=== PATIENT | male | born 1970 | race Caucasian/White ===

== ENCOUNTER 2019-12-13 12:58 | Emergency (ER) | payer MEDICARE, MEDICAID, SELFPAY ==
--- NOTE | ~2019-12-13 | XR_ITS ---
EXAMINATION: XR chest 2V EXAM DATE: 12/13/2019 13:54 INDICATION: Shortness of breath, history COPD and asthma. TECHNIQUE: Frontal and lateral projections of the chest obtained and reviewed. Comparison is made to prior examination from 01/28/2005. FINDINGS: The lungs are clear. There are no pleural effusions. The cardiomediastinal silhouette is within normal limits. There is no pneumothorax suspected. The bones and soft tissues are unremarkab le. There is no significant interval change. IMPRESSION: No acute cardiopulmonary findings. Reviewed, dictated and finalized at location A.
[2019-12-13 13:07] VITALS: BP 156/79; PULSE 73; RESP 20; TEMP 36.6; O2SAT 98
--- NOTE | 2019-12-13 13:44 | ED.URI ---
HPI - URI/Sore Throat General Chief Complaint: Upper Respiratory Infection Stated Complaint: diffculty breathing/dizzy Time Seen by Provider: 12/13/19 13:45 Source: patient Mode of arrival: ambulatory Limitations: no limitations History of Present Illness HPI Narrative: Tae Kent is a 49 yo male with PMH of asthma, HTN, COPD,bipolar disorder, who comes to express care for complaints of shortness of breath particularly with exertion. Has not called his primary care doctor, even though his O2 sats are close to 100% patient says there is something not right Related Data Home Medications Medication Instructions Recorded Confirmed Abilify 12/13/19 Flovent HFA 12/13/19 Singulair 12/13/19 albuterol sulfate 12/13/19 ampicillin 12/13/19 atorvastatin 12/13/19 hydrocodone-acetaminophen [[place]] 12/13/19 metoprolol tartrate 12/13/19 trazodone 12/13/19 venlafaxine 12/13/19 Allergies Allergy/AdvReac Type Severity Reaction Status Date / Time No Known Allergies Allergy Verified 12/13/19 13:58 Review of Systems Review of Systems: Narrative: CONSTITUTIONAL: Denies fever, chills, sweats. EYES: Denies visual changes, redness, discharge. ENT: Denies rhinorrhea, congestion, sore throat, otalgia. CARDIOVASCULAR: Denies chest pain, palpitations, edema. RESPIRATORY: Has dyspnea, wheezing, cough GASTROINTESTINAL: Denies abdominal pain, nausea, vomiting, diarrhea. GENITOURINARY: Denies dysuria, hematuria, abnormal discharge SKIN: Denies rash or itching. NEUROLOGIC: Denies numbness, or focal weakness. PSYCHIATRIC: Denies anxiety or depression. [facility] Family History Family History Other Hypertension Social History Social History (Updated 12/13/19 @ 13:51 by Meg Dubose CNP) Smoking packs per day: 0.5 Smoking cigarettes per day: 10.0 Smoking status: Current every day smoker Alcohol intake: never Gender identity (if verbalized by the patient): Male Comments At time of signature, I agree with nursing past medical, surgical, social and family history. There is no relevant family history pertinent to the presenting complaint. Exam Narrative: Exam Narrative: GENERAL: This is a well-nourished, well-developed patient, in mild distress. Breathing rapidly appears anxious, and so something is a mess HEAD: normocephalic, atraumatic. EYES: Sclera clear/white. Vision is grossly intact. EARS: External ears normal, Hearing grossly intact. NOSE: External nose normal without nasal discharge, nares without redness, no rhinorrhea. THROAT: Mucous membranes moist, posterior pharynx NECK: Neck supple, CARDIOVASCULAR: Regular rate and rhythm without murmurs, gallops, or rubs. RESPIRATORY: Clear to auscultation. Breath sounds equal bilaterally. No wheezes, rales, or rhonchi. GASTROINTESTINAL: Abdomen soft, , SKIN: warm, intact with no suspicious lesions or rash, good texture and turgor. NEURO: awake, alert, and oriented to person, place and time. There were no obvious focal neurologic abnormalities. Steady gait EXTREMITIES: Normal range of motion. BACK: Nontender without deformity Course Course Emergency Course: Chest x-raynegative for acute pathology Discused options at this point such as going to ER for further work-up including blood work, calling primary care physician, trying Vistaril to control anxiety Patient shows to take Vistaril and if there is no improvement will go to ER call PCP for appointment on Sunday Vital Signs Vital signs: Vital Signs Temperature 98 F 12/13/19 13:07 Pulse Rate 73 12/13/19 13:07 Respiratory Rate 12/13/19 13:07 Blood Pressure 156/79 H 12/13/19 13:07 Pulse Oximetry 98 12/13/19 13:07 Temperature 98 F 12/13/19 13:07 Pulse Rate 73 12/13/19 13:07 Respiratory Rate 12/13/19 13:07 Blood Pressure 156/79 H 12/13/19 13:07 Pulse Oximetry 98 12/13/19 13:07 MDM - URI/So
--- NOTE | 2019-12-13 14:10 | PC.NURSE ---
Patient C/O lightheadedness occasionally when coughs and feels onset of SOB. Patient denies chest pain, A&OX3 no neuro complaint or notable dysfunction noted upon assessment. See Resp. Assessment for respiratory findings.
== END 2019-12-13 14:36 | disposition home or self-care (01) ==
PROVIDERS: Emergency Provider Nurse Practitioner
DX: F41.9 Anxiety disorder, unspecified (principal); I10 Essential (primary) hypertension; J44.9 Chronic obstructive pulmonary disease, unspecified; F31.9 Bipolar disorder, unspecified; F17.210 Nicotine dependence, cigarettes, uncomplicated
CPT/HCPCS: 71046; 99213; G0463

== ENCOUNTER 2023-06-20 11:05 | Outpatient (CLI) | payer MEDICARE, MEDICAID, SELFPAY ==
[2023-06-20 11:20] LABS: Basophils Absolute Auto 0.09 K/mm3 (0.00-0.10); Basophils Percent Auto 1.1 % (0.0-1.0); Eosinophils Absolute Auto 0.23 K/mm3 (0.02-0.50); Eosinophils Percent Auto 2.8 % (1.0-6.0); Hematocrit 40.2 % (40.0-54.0); Hemoglobin 13.2 g/dL (14.0-18.0); Immature Granulocyte Absolute 0.01 K/mm3 (0.00-0.00); Immature Granulocyte Percent A 0.1 % (0.0-0.0); Lymphocytes Absolute Auto 2.08 K/mm3 (1.10-4.50); Lymphocytes Percent Auto 25.6 % (18.0-42.0); Mean Corpuscular HGB Conc 32.8 g/dL (32.0-36.0); Mean Corpuscular Hemoglobin 31.1 pg (27.0-31.0); Mean Corpuscular Volume 94.8 fL (78.0-102.0); Mean Platelet Volume 8.9 fl (8.7-11.0); Monocytes Absolute Auto 0.38 K/mm3 (0.10-0.90); Monocytes Percent Auto 4.7 % (2.0-11.0); Neutrophils Absolute Auto 5.3 K/mm3 (1.7-7.2); Neutrophils Percent Auto 65.7 % (50.0-70.0); Platelet Count Result 217 K/mm3 (150-420); Red Blood Count 4.24 M/mm3 (4.70-6.10); Red Cell Distribution Width 13.3 % (11.6-14.4); White Blood Count 8.1 K/mm3 (4.8-10.8)
[2023-06-20 11:34] LABS: Hemoglobin A1C 7.2 % (<5.7)
[2023-06-20 12:09] LABS: Microalbumin Urine Random 25.3 mg/L
[2023-06-20 12:32] LABS: Alanine Aminotransferase 46 U/L (16-63); Albumin Level 3.8 g/dL (3.4-5.0); Alkaline Phosphatase 115 U/L (46-116); Anion Gap 7 mmol/L (8-16); Aspartate Amino Transferase 17 U/L (15-37); Bilirubin,Total 0.3 mg/dL (0.00-1.00); Blood Urea Nitrogen 14 mg/dL (7-18); Calcium 9.2 mg/dL (8.5-10.1); Carbon Dioxide 29 mmol/L (21-32); Chloride 107 mmol/L (98-108); Cholesterol 157 mg/dL (0-200); Estimated Glomerular Filt Rate 35; Glucose 156 mg/dL (70-99); HDL Direct 43 mg/dL (40-60); LDL Cholesterol Calculated 58 mg/dL (<130); Osmolality Calculated 299 mOsm/kg (285-295); Potassium 3.9 mmol/L (3.5-5.1); Sodium 143 mmol/L (136-145); Total Protein 6.6 g/dL (6.4-8.2); Triglycerides 281 mg/dL (0-150)
== END 2023-06-20 11:06 | disposition home or self-care (01) ==
LOC: CHSLAB 11:10
PROVIDERS: PCP Family Medicine; Visit Provider Family Medicine
DX: E11.9 Type 2 diabetes mellitus without complications (principal); J44.89 Other specified chronic obstructive pulmonary disease
CPT/HCPCS: 36415; 80053; 80061; 82043; 83036; 85025

== ENCOUNTER 2023-06-21 12:09 | Outpatient (CLI) | payer MEDICARE, MEDICAID, SELFPAY ==
--- NOTE | ~2023-06-21 | CT_ITS ---
CT Scan of the Chest without Contrast: Clinical Indication: Lung cancer screening, personal history of nicotine dependence Technique: Contiguous sections were acquired throughout the chest without intravenous contrast. Dose reduction technique was used on this scan by utilizing automated exposure control and iterative recon struction technique. The dose-length product (DLP) was 281.02 mGy-cm. Findings: There is no evidence of any significant mediastinal, hilar or axillary lymphadenopathy. Calcified med iastinal/right hilar lymph nodes are present. The mediastinal soft tissues appear normal. There is no evidence of pleural or pericardial effusion. Several calcified granulomas are present. No noncalcified pulmonary nodule seen. Images through the upper abdomen reveal no abnormalities. Impression: Lung RADS 2: Benign appearance. 12 month follow-up screening CT advised. Reviewed, dictated and finalized at [facility]. RIGGER Impression: Lung RADS 2: Benign appearance. 12 month follow-up screening CT advised.
== END 2023-06-21 12:10 | disposition home or self-care (01) ==
LOC: CHSIMG 12:10
PROVIDERS: PCP Family Medicine; Visit Provider Family Medicine
DX: J44.89 Other specified chronic obstructive pulmonary disease (principal); Z12.2 Encounter for screening for malignant neoplasm of respiratory organs; Z87.891 Personal history of nicotine dependence
CPT/HCPCS: 71271

== ENCOUNTER 2023-08-21 16:32 | Outpatient (RCR) | payer MEDICARE, MEDICAID, SELFPAY ==
--- NOTE | 2023-08-29 15:17 | PCPTNOTE ---
Addendum entered by VitorT File, PT 08/29/23 15:17: patient is scheduled this sunday. Original Note: patient called and cancelled therapy today. he is still sick. reports he will return to therapy next week.
--- NOTE | 2023-09-03 17:07 | PCPTNOTE ---
pt called and stated he is running late and needs to cancel.
--- NOTE | 2023-09-04 13:46 | OPREHPOC ---
Outpatient Therapy Plan of Care This is a Multidisciplinary Plan of Care that may contain components documented by all disciplines (PT, OT, and ST.) PT Problem 1 PT Problem #1 Knowledge Deficit PT Goal 1 Goal 1. independent and compliant with HEP Target Visit 6 PT Problem 2 PT Problem #2 Pain PT Goal 1 Goal 1. decrease pain at worst to 2/10 or less in the neck and lower back Target Visit 12 PT Problem 3 PT Problem #3 Impaired Range of Motion PT Goal 1 Goal 1. improve lumbar active side bending to 30 degrees or better 2. improve lumbar active extension to 20 degrees or better 3. improve lumbar active flexion to ankles 4. improve L cervical side bending to 20 degrees or better 5. improve R cervical rotation to 65 degrees or better Target Visit 12 PT Problem 4 PT Problem #4 Impaired Strength PT Goal 1 Goal 1. 5/5 bilateral UE strength 2. 5/5 bilateral LE strength 3. 4+/5 or better deep neck flexor strength Target Visit 12 PT Problem 5 PT Problem #5 Impaired Functional Mobil PT Goal 1 Goal 1. patient to tolerate upright and walking activities to 2 hours outside of therapy without rest 2. oswestry to display 30% or less functional deficits 3. improve posture to display more retracted shoulders and decreased forward head Target Visit 12
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
--- NOTE | 2023-09-07 18:27 | PCPTNOTE ---
patient is unable to make it today due to his schedule. he is scheduled to return to therapy next week
--- NOTE | 2023-09-11 09:15 | PCPTNOTE ---
No call no show. Patient was called and voicemail was left notifying patient of discharge.
== END 2023-08-21 20:00 | disposition home or self-care (01) ==
LOC: CHSPT 16:32
PROVIDERS: Visit Provider Nurse Practitioner Adult Health
DX: M47.812 Spondylosis without myelopathy or radiculopathy, cervical region (principal)
CPT/HCPCS: 97014; 97110; 97161; G0283

== ENCOUNTER 2023-09-15 18:25 | Emergency (ER) | payer MEDICARE, MEDICAID, SELFPAY ==
--- NOTE | ~2023-09-15 | XR_ITS ---
EXAMINATION: XR abdomen obstructive series DATE: 09/15/2023 18:57 INDICATION: Constipation. TECHNIQUE: Upright and supine views of the abdomen on 4 radiographs were obtained. COMPARISON: None. FINDINGS: There are no dilated loops of bowel. There is a small volume of stool in the colon. No free intraperitoneal gas. IMPRESSION: 1. Normal bowel gas pattern. Reviewed, dictated and finalized at location A.
[2023-09-15 18:25] VITALS: BP 134/78; PULSE 78; RESP 17; TEMP 36.3; O2SAT 95
--- NOTE | 2023-09-15 19:15 | ED.ABDPAIN ---
HPI - Abdominal Pain General Chief Complaint: Abdominal Pain Stated Complaint: BOWEL PROBLEM Time Seen by Provider: 09/15/23 18:27 Source: patient Mode of arrival: ambulatory Limitations: no limitations History of Present Illness HPI narrative: This is a 53-year-old male who presents with nausea constipation for the last 6 weeks has follow with his primary and was prescribed lactulose. Patient has some mild periumbilical discomfort with watery stool and some nausea with no vomiting no flank pain no dysuria no fever chills. Patient does take Mounjaro for diabetes/weight loss. Pertinent past history: constipation Onset (ago): week(s) Pain Consistency: intermittent Location: periumbilical Severity: mild Related Data Home Medications Medication Instructions Recorded Confirmed apixaban 5 mg tablet (Eliquis) 5 mg PO BID 06/20/23 09/15/23 aripiprazole 20 mg tablet 20 mg PO DAILY 06/20/23 09/15/23 aripiprazole 5 mg tablet 5 mg PO DAILY 06/20/23 09/15/23 aspirin 81 mg tablet,delayed 81 mg PO DAILY 06/20/23 09/15/23 release (Adult Low Dose Aspirin) bupropion HCl 300 mg 24 hr tablet, 300 mg PO QAM 06/20/23 09/15/23 extended release fluticasone propionate 50 2 inh inhalation Q12H 06/20/23 09/15/23 mcg/actuation blister powder for inhalation fluticasone propionate 50 1 spray intranasal BID 06/20/23 09/15/23 mcg/actuation nasal spray,suspension fosinopril 40 mg tablet 40 mg PO DAILY 06/20/23 09/15/23 ropinirole 1 mg tablet 1 mg PO BID 06/20/23 09/15/23 venlafaxine 150 mg 150 mg PO DAILY 06/20/23 09/15/23 capsule,extended release 24 hr oxycodone myristate 9 mg capsule 9 mg PO Q12H 08/10/23 09/15/23 sprinkle extended release 12 hr(DON'T CRUSH) (Xtampza ER) Allergies Allergy/AdvReac Type Severity Reaction Status Date / Time ivp dye Allergy Severe cant Uncoded 08/10/23 07:43 breathe Review of Systems Review of Systems: All systems reviewed & are unremarkable except as noted in HPI and below PMFSH Past Medical History Medical History Asthma Lupus Family History Family History Mother Carcinoma of colon Father Emphysema lung Grandparent Diabetes mellitus Sibling Lupus Other Hypertension Social History Social History Smoking packs per day: 0.5 Smoking cigarettes per day: 10.0 Smoking status: Former smoker Alcohol intake: never Substance use: never Gender identity (if verbalized by the patient): Male Exam Const: General: healthy appearing, no acute distress and alert Nutritional Appearance: well nourished Orientation/consciousness: patient oriented x3 Limitations: no limitations Chest: Chest palpation & inspection: normal inspection of the chest Resp: Effort & Inspection: normal respiratory effort Auscultation: clear to auscultation bilaterally Cardio: Rate: regular rate Rhythm: regular rhythm GI: GI Palp: Yes Soft to palpation Auscultation: normal bowel sounds : General: Yes bladder normal to palpation Skin: General skin exam: normal color Rashes: no rashes Neuro: General: patient oriented x3, moves all extremities and no meningeal signs Extrem: General: normal to inspection Psych: Mental Status: mental status grossly normal Course Course Emergency Course: Obstructive series performed which shows no abdominal distension with some no fecal impaction. Vital Signs Vital signs: Vital Signs Temperature 36.3 C L 09/15/23 18:25 Pulse Rate 78 09/15/23 18:25 Respiratory Rate 17 09/15/23 18:25 Blood Pressure 134/78 09/15/23 18:25 Pulse Oximetry 95 09/15/23 18:25 Oxygen Delivery Room Air 09/15/23 18:25 Temperature 36.3 C L 09/15/23 18:25 Pulse Rate 78 09/15/23 18:25 Respiratory Rate 17 09/15/23 18:25 Blood Pressure 134/78 09/15/23 18:25 Pul
[2023-09-15 19:31] VITALS: BP 127/66
== END 2023-09-15 19:40 | disposition home or self-care (01) ==
PROVIDERS: Emergency Provider Emergency Medicine; PCP Family Medicine
DX: R11.0 Nausea (principal); K59.00 Constipation, unspecified; Z79.01 Long term (current) use of anticoagulants; J45.909 Unspecified asthma, uncomplicated; M32.9 Systemic lupus erythematosus, unspecified; Z87.891 Personal history of nicotine dependence
CPT/HCPCS: 74019; 99283

== ENCOUNTER 2023-10-17 11:07 | Outpatient (NON) | payer MEDICARE, MEDICAID, SELFPAY ==
[2023-10-17 20:02] LABS: Trichomonas Vag PCR NOT DETECTED (NOT DETECTE)
[2023-10-17 20:25] LABS: Chlamydia trachomatis NOT DETECTED (NOT DETECTE); Neisseria gonorrhoeae PCR NOT DETECTED (NOT DETECTE)
== END 2023-10-17 11:08 | disposition home or self-care (01) ==
PROVIDERS: Visit Provider Family Medicine
DX: N39.0 Urinary tract infection, site not specified (principal); Z11.3 Encounter for screening for infections with a predominantly sexual mode of transmission
CPT/HCPCS: 87086; 87088; 87491; 87591; 87661

== ENCOUNTER 2024-05-02 09:32 | Outpatient (CLI) | payer MEDICARE, MEDICAID, SELFPAY ==
[2024-05-02 09:50] LABS: Basophils Absolute Auto 0.09 K/mm3 (0.00-0.10); Eosinophils Absolute Auto 0.44 K/mm3 (0.02-0.50); Hematocrit 40.7 % (40.0-54.0); Hemoglobin 14.4 g/dL (14.0-18.0); Immature Granulocyte Absolute 0.02 K/mm3 (0.00-0.00); Immature Granulocyte Percent A 0.2 % (0.0-0.0); Lymphocytes Absolute Auto 2.05 K/mm3 (1.10-4.50); Lymphocytes Percent Auto 23.4 % (18.0-42.0); Mean Corpuscular HGB Conc 35.4 g/dL (32-36); Mean Corpuscular Hemoglobin 32.4 pg (27.0-31.0); Mean Corpuscular Volume 91.7 fL (78.0-102.0); Mean Platelet Volume 9.5 fl (8.7-11.0); Monocytes Percent Auto 4.6 % (2.0-11.0); Neutrophils Absolute Auto 5.76 K/mm3 (1.70-7.20); Neutrophils Percent Auto 65.8 % (50.0-70.0); Platelet Count Result 215 K/mm3 (150-420); Red Blood Count 4.44 M/mm3 (4.70-6.10); Red Cell Distribution Width 14.1 % (11.6-14.4); White Blood Count 8.8 K/mm3 (4.8-10.8)
[2024-05-02 10:13] LABS: Creatinine Urine 34.08 mg/dL (40-278); MALB Creatinine Ratio 151.1 mg/g (0-30); Microalbumin Urine Random 51.5 mg/L
[2024-05-02 10:48] LABS: Alanine Aminotransferase 33 U/L (16-63); Albumin Level 3.7 g/dL (3.4-5.0); Alkaline Phosphatase 108 U/L (46-116); Anion Gap 11 mmol/L (4-12); Aspartate Amino Transferase 15 U/L (15-37); Bilirubin,Total 0.2 mg/dL (0.00-1.00); Blood Urea Nitrogen 18 mg/dL (7-18); Calcium 9.2 mg/dL (8.5-10.1); Carbon Dioxide 27 mmol/L (21-32); Chloride 103 mmol/L (98-108); Cholesterol 175 mg/dL (0-200); Estimated Glomerular Filt Rate 52; Ferritin 27 ng/mL (26-388); Glucose 252 mg/dL (70-99); HDL Direct 50 mg/dL (40-60); LDL Cholesterol Calculated 86 mg/dL (<130); Osmolality Calculated 302 mOsm/kg (285-295); Potassium 3.8 mmol/L (3.5-5.1); Sodium 141 mmol/L (136-145); Thyroid Stimulating Hormone 1.16 uIU/mL (0.36-3.74); Total Protein 6.4 g/dL (6.4-8.2); Triglycerides 197 mg/dL (0-150)
[2024-05-04 02:54] LABS: Prolactin 3.8 ng/mL (2.0-18.0)
== END 2024-05-02 09:33 | disposition home or self-care (01) ==
LOC: CHSLAB 09:34
PROVIDERS: PCP Family Medicine
DX: I10 Essential (primary) hypertension (principal); D50.9 Iron deficiency anemia, unspecified; E11.9 Type 2 diabetes mellitus without complications; Z79.899 Other long term (current) drug therapy
CPT/HCPCS: 36415; 80053; 80061; 80183; 82043; 82728; 83036; 84146; 84443; 85025

== ENCOUNTER 2024-05-13 11:52 | Outpatient (CLI) | payer MEDICARE, MEDICAID, SELFPAY ==
--- NOTE | ~2024-05-13 | XR_ITS ---
EXAMINATION: XR knee LT 3V DATE: 05/13/2024 12:29 INDICATION: Left knee pain. TECHNIQUE: 3 views of left knee were obtained. COMPARISON: None. FINDINGS: Alignment is normal. No fracture. There is mild tricompartmental osteoarthritis. There is a moderate-sized knee joint effusion. IMPRESSION: 1. Mild left knee osteoarthritis. 2. Moderate-sized left knee joint effusion. Reviewed, dictated and finalized at location A. T DEVELOPER AUTOMATIC
--- NOTE | ~2024-05-13 | XR_ITS ---
EXAMINATION: XR chest 2V DATE: 05/13/2024 12:29 INDICATION: Heart failure, unspecified. TECHNIQUE: Frontal and lateral views of the chest were obtained. COMPARISON: Chest 2 view 12/13/2019 FINDINGS: There is no pneumonia, pleural effusion, or pneumothorax. The heart size is normal. IMPRESSION: 1. No acute cardiopulmonary disease. Reviewed, dictated and finalized at location A. R EXPERT
--- NOTE | 2024-05-13 12:04 | ECG_ITS ---
Test Date: 2024-05-13 12:15:32 Measurements Intervals [place] Rate: 64 P: 70 DE: 152 QRS: 85 QRSD: 110 T: 64 QT: 417 QTc: 431 Interpretive Statements SINUS RHYTHM WITH SINUS ARRHYTHMIA BASELINE WANDER- V2 NORMAL ECG No previous ECG available for comparison Electronically Signed On 05-13-2024 12:13:21 SPEECH AND LANGUAGE SPECIALIST by Arun Candelario D.O.
[2024-05-13 12:16] LABS: Basophils Percent Auto 1.3 % (0.0-1.0); Eosinophils Absolute Auto 0.45 K/mm3 (0.02-0.50); Eosinophils Percent Auto 5.8 % (1.0-6.0); Hematocrit 38.1 % (40.0-54.0); Hemoglobin 13.2 g/dL (14.0-18.0); Immature Granulocyte Absolute 0.02 K/mm3 (0.00-0.00); Immature Granulocyte Percent A 0.3 % (0.0-0.0); Lymphocytes Absolute Auto 2.34 K/mm3 (1.10-4.50); Lymphocytes Percent Auto 30.1 % (18.0-42.0); Mean Corpuscular HGB Conc 34.6 g/dL (32-36); Mean Corpuscular Volume 92.5 fL (78.0-102.0); Mean Platelet Volume 9.5 fl (8.7-11.0); Monocytes Percent Auto 6.4 % (2.0-11.0); Neutrophils Absolute Auto 4.36 K/mm3 (1.70-7.20); Neutrophils Percent Auto 56.1 % (50.0-70.0); Platelet Count Result 194 K/mm3 (150-420); Red Blood Count 4.12 M/mm3 (4.70-6.10); Red Cell Distribution Width 14.4 % (11.6-14.4); White Blood Count 7.8 K/mm3 (4.8-10.8)
[2024-05-13 13:28] LABS: Alanine Aminotransferase 28 U/L (16-63); Albumin Level 3.6 g/dL (3.4-5.0); Alkaline Phosphatase 103 U/L (46-116); Anion Gap 8 mmol/L (4-12); Aspartate Amino Transferase 11 U/L (15-37); Bilirubin,Total 0.3 mg/dL (0.00-1.00); Blood Urea Nitrogen 11 mg/dL (7-18); Calcium 9.2 mg/dL (8.5-10.1); Carbon Dioxide 30 mmol/L (21-32); Chloride 105 mmol/L (98-108); Estimated Glomerular Filt Rate 51; Glucose 65 mg/dL (70-99); NT Pro B Type Natriuretic Pept 252 pg/mL (0-125); Osmolality Calculated 293 mOsm/kg (285-295); Sodium 143 mmol/L (136-145); Total Protein 6.3 g/dL (6.4-8.2); Troponin I 4.9 ng/L (0.00-60.4)
[2024-05-13 13:35] LABS: Thyroid Stimulating Hormone Reflex 1.35 u/IU/mL (0.36-3.74)
== END 2024-05-13 11:53 | disposition home or self-care (01) ==
LOC: CHSLAB 11:53
PROVIDERS: PCP Family Medicine; Visit Provider Family Medicine
DX: E03.9 Hypothyroidism, unspecified (principal); I50.9 Heart failure, unspecified; M17.12 Unilateral primary osteoarthritis, left knee; M25.462 Effusion, left knee
CPT/HCPCS: 36415; 71046; 73562; 80053; 83880; 84443; 84484; 85025; 93005

== ENCOUNTER 2024-09-18 13:48 | Outpatient (RCR) | payer MEDICARE, MEDICAID, SELFPAY ==
--- NOTE | 2024-09-18 14:51 | OPREHPOC ---
Outpatient Therapy Plan of Care This is a Multidisciplinary Plan of Care that may contain components documented by all disciplines (PT, OT, and ST.) PT Problem 1 PT Problem #1 Knowledge Deficit PT Goal 1 Goal / Goal Update The patient will be independent in a home exercise program. Target Visit 4 PT Problem 2 PT Problem #2 Pain PT Goal 1 Goal / Goal Update The patient will report no greater than 3/10 low back pain when standing for 15 minutes. Target Visit 12 PT Problem 3 PT Problem #3 Impaired Range of Motion PT Goal 1 Goal / Goal Update The patient will demonstrate lumbar flexion AROM of 40 degrees or greater to improve ability to don socks/shoes. Target Visit 12 PT Problem 4 PT Problem #4 Impaired Strength PT Goal 1 Goal / Goal Update The patient will demonstrate 4/5 upper abdominal, lower abdominal, and lumbar extension strength to support the spine for ambulation and standing. Target Visit 12
--- NOTE | 2024-09-18 14:51 | PTOPEVAL1 ---
Assessment and note entered by Janeth Overton, PT Evaluation Information Assessment Status Evaluation ICD-10 Condition Codes (PT) Pain in low back M54.50 Onset 08/21/24 Subjective Information Tae Kent reports he has had low back pain for several years. He notes the pain will wrap around to his stomach and he will have to sit down when that happens. He has difficulty standing and walking for long periods. He has less pain with sitting. He is disabled and is unable to perform most house chores. He also has to use a chair for showering. He notes occasionally the pain will go into the sides of his hip. He denies numbness and tingling from the back but does have neuropathy that affects the feet and hands. He is using Gabapentin 4 times a day. He also has cervical stenosis but does not want to have surgery. Reported Pain Level Pain Score 4: Self Report Assessment PT Clinical Summary Tae Kent presents with chronic low back pain. 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 He objectively demonstrates tenderness in the lumbar paraspinals and spinous processes, decreased and painful lumbar AROM, decreased core strength, decreased hamstring flexibility, and positive straight leg raise test. He will benefit from skilled PT to address these limitations. Plan of Care Interventions Electrical Stimulation,Hot Pack/Cold Pack,Manual Therapy,Mechanical Traction,Neuro Re-education, Patient/Caregiver Education,Therapeutic Activities ,Therapeutic Exercise PT Services Indicated Yes Treatment Frequency and 3 times a week for 12 visits Duration These treatments will address the objective and functional deficits as defined above. The patient will be advanced safely and appropriately in order for the patient to progress towards his/her prior level of function. Additional exercises will be introduced and as well as a comprehensive home exercise program upon discharge, if needed, ?to ensure carryover of functional gains achieved in the clinic. This treatment plan has been reviewed and agreement upon by the patient.
--- NOTE | 2024-09-22 10:45 | PCPTNOTE ---
Patient did not show up for scheduled appointment this date.
--- NOTE | 2024-09-24 11:11 | PCPTNOTE ---
Patient did not show up for scheduled appointment this date. -Janeth Overton, PT
--- NOTE | 2024-09-26 07:07 | PCPTNOTE ---
Cancelled session. Is in too much pain and does not want to come to therapy.
--- NOTE | 2024-10-09 07:46 | OPREHPOC ---
Outpatient Therapy Plan of Care This is a Multidisciplinary Plan of Care that may contain components documented by all disciplines (PT, OT, and ST.) PT Problem 1 PT Problem #1 Knowledge Deficit PT Goal 1 Goal / Goal Update The patient will be independent in a home exercise program. Target Visit 4 Progress Not Met PT Problem 2 PT Problem #2 Pain PT Goal 1 Goal / Goal Update The patient will report no greater than 3/10 low back pain when standing for 15 minutes. Target Visit 12 Progress Not Met PT Problem 3 PT Problem #3 Impaired Range of Motion PT Goal 1 Goal / Goal Update The patient will demonstrate lumbar flexion AROM of 40 degrees or greater to improve ability to don socks/shoes. Target Visit 12 Progress Not Met PT Problem 4 PT Problem #4 Impaired Strength PT Goal 1 Goal / Goal Update The patient will demonstrate 4/5 upper abdominal, lower abdominal, and lumbar extension strength to support the spine for ambulation and standing. Target Visit 12 Progress Not Met
--- NOTE | 2024-10-09 07:47 | PTOPDC ---
Assessment and note entered by Janeth Overton, PT Evaluation Information Assessment Status Discharge - Pt Not Present ICD-10 Condition Codes (PT) Pain in low back M54.50 Onset 08/21/24 Subjective Information Tae Kent called after his initial evaluation to cancel his remaining appointments due to being in too much pain. Assessment PT Clinical Summary Tae Kent only attended his initial evaluation and then called to cancel his remaining appointments due to being in too much pain. Plan of Care PT Services Indicated No
== END 2024-09-18 20:00 | disposition home or self-care (01) ==
LOC: CHSPT 13:48
PROVIDERS: Visit Provider Nurse Practitioner Adult Health
DX: M54.9 Dorsalgia, unspecified (principal)
CPT/HCPCS: 97014; 97110; 97161; G0283

== ENCOUNTER 2024-10-16 21:24 | Outpatient (CLI) | payer MEDICARE, MEDICAID, SELFPAY ==
--- NOTE | ~2024-10-16 | CT_ITS ---
CT Scan of the Chest without Contrast: Clinical Indication: Lung cancer screening, nicotine dependence Technique: Contiguous sections were acquired throughout the chest without intravenous contrast. Dose reduction technique was used on this scan by utilizing automated exposure control and iterative recon struction technique. The dose-length product (DLP) was 221.43 mGy-cm. COMPARISON: 06/21/2023 Findings: There is no evidence of any significant mediastinal, hilar or axillary lymphadenopathy. Calcified med iastinal and right hilar lymph nodes are present. There is no evidence of pleural or pericardial effusion. Calcified right upper lobe granulomas are present. Images through the upper abdomen reveal no abnormalities. Impression: Lung RADS 2: Benign appearance. 12 month follow-up CT advised. Reviewed, dictated and finalized at location . Impression: Lung RADS 2: Benign appearance. 12 month follow-up CT advised.
--- OUTSIDE RECORDS SUMMARY | 2024-10-16 21:27 | XMS_ITS | Encounter Summary ---
Author Organization [facility] Address [address] [place] [address] Phone Care Team Providers Care Waitress Name Role Phone Srikanth Adrian MD Unavailable Tad Romero MD Primary Care Provider [phone] Gloria Martinez MD Unavailable [phone] Reason for Visit * Reason Comments Medication Refill Encounter Details Date Type Department Care Team (Late Contact Info) Description 07/03/2024 Refill [facility] - Family Medicine [facility] [address] [place] [address] Jabier Peck MD [address] [address] Medication Refill Social History Tobacco Use Types Packs/Day Years Used Date Smoking Tobacco: Former Cigarettes 1 35 Smokeless Tobacco: Never Alcohol Use Standard Drinks/Week Comments No 0 (1 standard drink = 0.6 oz pur e alcohol) Education Answer Date Recorded What is the highest level of school you have completed or the highest degree you have received? 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 Sexual Orientation Lesbian or Wolff 05/03/2023 12 :44 PM SALES AND MARKETING ENGINEER documented as of this encounter Miscellaneous Notes * Telephone Encounter - Francine Soto RN - 07/04/2024 8:54 AM CST PCP: Tad Mcintosh MD S AND MARKETING ENGINEER documented in this encounter Plan of Treatment Upcoming Encounters Date Type Department Care Team (Late st Contact Info) Description 10/17/2024 1:00 PM CDT Procedure Visit [facility] [address] [place] [address] Gloria Martinez MD [id number] [address] documented as of this encounter Visit Diagnoses Not on filedocumented in this encounter Care Teams Waitress Relationship Specialty Start Date End Date Tad Mcintosh MD [address] [place] [id number] PCP - General Family Medicine 01/17/24 Srikanth Adrian MD Statistical Methods Professor Cardiovascular Disease - Cardiology 02/02/22 08/06/24 Gloria Martinez MD [facility] [address] [place] [address] Consulting Physician Urology 04/30/24 documented as of this encounter
--- OUTSIDE RECORDS SUMMARY | 2024-10-16 21:27 | XMS_ITS ---
Author Name ABBY BUTLER Address [address] [place] [address] Phone [facility] Address [address] [place] [address] Phone Care Team Providers Care Supervisor Composing Room Name Role Phone ABBY BUTLER Unavailable [phone] ALLERGIES, ADVERSE REACTIONS AND ALERTS Allergy Name Allergy Date Allergy Status Allergy Severity Allergy Reaction NO KNOWN DRUG ALLERGIES PROBLEMS Problem Code Problem Description Problem Status Problem Da te Problem End Date 966589613-Kbwaaflepfr tract congestion and cough Respiratory tract congestion and cough Current 04/28/2022 58599516-Hogrken disorder Bipolar disorder Chronic 04/28/2022 22028527-Wolifnsyg emphysema Pulmonary emphysema Chronic 04/28/2022 93029833-Ldofkc disease Kidney disease Chronic 04/28/2022 42666969-Qibozsbx mellitus Diabetes mellitus Chronic 04/28/2022 [id number]-Fftztx Asthma Chronic 04/28/2022 66841638-Wzxbbytooiu sleep apnea syndrome Obstructive sleep apnea syndrome Chronic 04/28/2022 R07.0-PAIN IN THROAT PAIN IN THROAT Current 04/29/2022 R09.81-NASAL CONGESTION NASAL CONGESTION Current 04/29/2022 J06.9-ACUTE UPPER RESPIRATORY INFECTION, UNSPECIFIED ACUTE UPPER RESPIRATORY INFECTION, UNSPECIFIED Current 04/29/2022 Z71.9-COUNSELING, UNSPECIFIED COUNSELING, UNSPECIFIED Current 04/29/2022 PROCEDURES Procedure Description Date Notes NO PROCEDURES PERFORMED ASSESSMENTS Assessment None PLAN OF TREATMENT Assessment Planned Activity LOINC Planned Yuri e None CONSULTATION NOTE Note Author Date None HISTORY AND PHYSICAL NOTE Note Author Date None PROGRESS NOTE Note Author Date None DISCHARGE SUMMARY Note Author Date None CHIEF COMPLAINT AND REASON FOR VISIT FUNCTIONAL STATUS Functional or Cognitive Find ing None MENTAL STATUS Cognitive Finding None ENCOUNTERS Encounter Type Provider Diagnoses Start Date Location None SOCIAL HISTORY Social Status Observation Unknown if ever smoked Sex:Male CARE TEAM INFORMATION Supervisor Composing Room Provider ID Role Location Phone ABBY BUTLER [phone] NURSE PRACTITIONER [address] [place] [address]
--- OUTSIDE RECORDS SUMMARY | 2024-10-16 21:27 | XMS_ITS | Encounter Summary ---
Author Organization [facility] Address [address] [place] [address] Phone Care Team Providers Care Development Associate Name Role Phone Jabier Peck MD Primary Care Provider [phone] Srikanth Adrian MD Unavailable Tad Romero MD Primary Care Provider [phone] Gloria Martinez MD Unavailable [phone] Reason for Visit * Reason Onset Date Comments Medication Refill 03/28/2021 Encounter Details Date Type Department Care Team (Late st Contact Info) Description 03/28/2021 Refill [facility] - Family Medicine [facility] #2 [place] [address] Jabier Peck MD #[address] [address] Medication Refill Social History Tobacco Use Types Packs/Day Years Used Date Smoking Tobacco: Every Day Cigarettes 1 35 Smokeless Tobacco: Never Alcohol Use Standard Drinks/Week Comments No 0 (1 standard drink = 0.6 oz pur e alcohol) Sexually Active Control Partners Comments Not Currently Male Condom Male Sex and Gender Information Value Date Recorded Sex Assigned at Not on file Legal Sex Male 11:38 PM CDT Gender Identity Male 05/03/2023 12:44 PM DIGESTION OPERATOR Sexual Orientation Lesbian or Wolff 05/03/2023 12 :44 PM DIGESTION OPERATOR COVID-19 Exposure Response Date Recorded In the last month, have you been in contact with someone who was confirmed or suspected to have Coronavirus / COVID-19? No / Unsure 03/31/2021 1:54 PM CDT documented as of this encounter Miscellaneous Notes * Telephone Encounter - Francine Soto RN - 03/28/2021 1:58 PM CDT New Rx for you Per nursing clinical judgement, provider to review and approve the medication(s) order(s) if appropriate. Requested Prescriptions Pending Prescriptions Disp Refills famotidine (PEPCID) 20 MG Tablet 60 Tablet 1 Sig: Take 1 Tablet by mouth 2 times daily. H2 Antagonists Protocol Passed - 03/28/2021 1:58 PM Passed - Visit with relevant provider in past 12 months or upcoming 90 days Recent Visits Date Type Provider Dept 03/16/21 Office Visit Kishore Prieto APN, RICHARD [facility] [place] 11/16/20 Office Visit Kishore Prieto APN, RICHARD [facility] [place] 10/20/20 Office Visit Jabier Peck MD [facility] [place] 08/20/20 Telemedicine Kishore Prieto APN, RICHARD [facility] [place] 08/06/20 Telemedicine Kishore Prieto APN, RICHARD [facility] [place] 06/22/20 Office Visit Kishore Prieto APN, BURR GRINDER [facility] [place] Showing recent visits within past 365 days and meeting all other requirements Future Appointments Date Type Provider Dept 04/08/21 Appointment Jabier Peck MD [facility] [place] Showing future appointments within next 90 days and meeting all other requirements * Telephone Encounter - Yadira York - 03/28/2021 12:47 PM CDT Received a faxed Rx request from pharmacy. Reordered refill medication(s) requested and pended for nurse and physician/MARVA review. Refill encounter routed to nurse Javiridmitriy's pool for processing. documented in this encounter Plan of Treatment Upcoming Encounters Date Type Department Care Team (Late st Contact Info) Description 10/17/2024 1:00 PM CDT Procedure Visit [facility] #[address] [place] [address] Gloria Martinez MD #2 [facility] [address] [place] [address] documented as of this encounter Visit Diagnoses Not on filedocumented in this encounter Additional Health Concerns Infection Onset Date Last Indicated Resolved Time COVID - 19 Confirmed 05/31/2022 05/31/2022 023 12:16 AM DIGESTION OPERATOR Respiratory Rule Out - RPA 02/26/2023 02/26/2023 0 02/26/2023 11:31 AM CDT COVID - 19 02/26/2023 02/26/2023 03/08/2023 12:1 6 AM CDT documented as of this encounter Care Teams Development Associate Relationship Specialty Start Date End Date Jabier Peck MD [facility] [address] [place] [address] PCP - General Family Medicine 06/22/20 01/16/24 Tad Mcintosh MD [address] [place] [address] PCP - General Family Medicine 01/17/24 Srikanth Adrian MD #2 [facility] [address] [place] [address] Perl Developer Cardiovascular Disease - Cardiology 02/02/22 08/06/24 Gloria Martinez MD #[address] [facility] [address] [place] [address] Consulting Physician Urology 04/30/24 documented as of this encounter
--- OUTSIDE RECORDS SUMMARY | 2024-10-16 21:27 | XMS_ITS | Encounter Summary ---
Author Organization [facility] Address [address] [place] [address] Phone Care Team Providers Care Dramatic Critic Name Role Phone Srikanth Adrian MD Unavailable Tad Romero MD Primary Care Provider Gloria Martinez MD Unavailable [phone] Reason for Visit * Reason Comments Medication Refill Encounter Details Date Type Department Care Team ([facility] Contact Info) Description 03/29/2024 Refill [facility] - Family Medicine [facility] #2 [place] [address] Kishore Prieto APRN, COUNTERSINKER #[address] [address] Medication Refill Social History Tobacco Use Types [...] CDT Gender Identity Male 05/03/2023 12:44 PM KENNEL TECHNICIAN Sexual Orientation Lesbian or Wolff 05/03/2023 12 :44 PM KENNEL TECHNICIAN documented as of this encounter Miscellaneous Notes * Telephone Encounter - Cristine Preston RN - 03/30/2024 1:22 PM CDT PCP: Tad Mcintosh MD documented in this encounter Plan of Treatment Upcoming Encounters Date Type Department Care Team (Late st Contact Info) Description 10/17/2024 1:00 PM CDT Procedure Visit [facility] #2 [place] [address] Gloria Martinez MD [id number] [address] documented as of this encounter Visit Diagnoses Not on filedocumented in this encounter Care Teams Dramatic Critic Relationship Specialty Start Date End Date Tad Mcintosh MD [address] [place] [address] PCP - General Family Medicine 01/17/24 Srikanth Adrian MD Water Proofer Cardiovascular Disease - Cardiology 02/02/22 08/06/24 Gloria Martinez MD [facility] [address] [place] [address] Consulting Physician Urology 04/30/24 documented as of this encounter
--- OUTSIDE RECORDS SUMMARY | 2024-10-16 21:27 | XMS_ITS | Encounter Summary ---
Author Organization [facility] Address [address] [place] [address] Phone Care Team Providers Care Real Estate Loan Processor Name Role Phone Jabier Peck MD Primary Care Provider [phone] Srikanth Adrian MD Unavailable Tad Romero MD Primary Care Provider [phone] Gloria Martinez MD Unavailable [phone] Reason for Visit * Reason Comments Medication Refill Encounter Details Date Type Department Care Team (Late st Contact Info) Description 08/19/2021 Refill [facility] #2 [place] [address] Jabier Peck MD #[address] [address] Medication Refill Social History Tobacco Use Types [...] CDT Gender Identity Male 05/03/2023 12:44 PM PLASTIC SURGEON Sexual Orientation Lesbian or Wolff 05/03/2023 12 :44 PM PLASTIC SURGEON COVID-19 Exposure Response Date Recorded In the last month, have you been in contact with someone who was confirmed or suspected to have Coronavirus / COVID-19? No / Unsure 08/01/2021 1:35 PM PLASTIC SURGEON documented as of this encounter Miscellaneous Notes * Telephone Encounter - Francine Soto RN - 08/19/2021 2:19 PM CST Medication failed the protocol, provider to review and approve the medication order if appropriate. Requested Prescriptions Pending Prescriptions Disp Refills methocarbamol (ROBAXIN) 750 MG Tablet [Pharmacy Med Name: METHOCARBAMOL 750MG TABS] 45 Tablet 1 Sig: TAKE ONE TABLET BY MOUTH THREE TIMES A DAY NEEDED FOR MUSCLE SPASMS Not Delegated - Muscle Relaxants Protocol Failed - 08/19/2021 12:37 PM Failed - This refill cannot be delegated Passed - Visit with relevant provider in past 12 months or upcoming 90 days Recent Visits Date Type Provider Dept 08/01/21 Office Visit Jabier Peck MD [facility] 04/29/21 Office Visit Jabier Peck MD [facility] [place] 03/16/21 Office Visit Kishore Prieto APRN, RICHARD [facility] 11/16/20 Office Visit Kishore Prieto APRN, RICHARD [facility] 10/20/20 Office Visit Jabier Peck MD [facility] 08/20/20 Telemedicine Kishore Prieto APRN, RICHARD [facility] Showing recent visits within past 365 days and meeting all other requirements Future Appointments Date Type Provider Dept 10/31/21 Appointment Jabier Peck MD [facility] Showing future appointments within next 90 days and meeting all other requirements TIC SURGEON documented in this encounter Plan of Treatment Upcoming Encounters Date Type Department Care Team (Late st Contact Info) Description 10/17/2024 1:00 PM CDT Procedure Visit [facility] #2 [place] [address] Gloria Martinez MD #2 [facility] [address] [place] [address] documented as of this encounter Visit Diagnoses Diagnosis Cervical radiculopathy Brachial neuritis or radiculitis nos Penile mass- Primary Unspecified disorder of penis documented in this encounter Additional Health Concerns Infection Onset Date Last Indicated Resolved Time COVID - 19 Confirmed 05/31/2022 05/31/2022 023 12:16 AM PLASTIC SURGEON Respiratory Rule Out - RPA 02/26/2023 02/26/2023 0 02/26/2023 11:31 AM CDT COVID - 19 02/26/2023 02/26/2023 03/08/2023 12:1 6 AM CDT documented as of this encounter Care Teams Real Estate Loan Processor Relationship Specialty Start Date End Date Jabier Peck MD #2 [facility] [address] [place] [address] PCP - General Family Medicine 06/22/20 01/16/24 Tad Mcintosh MD [address] [place] [address] PCP - General Family Medicine 01/17/24 Srikanth Adrian MD #2 [facility] [address] [place] [address] Domestic Cleaner Cardiovascular Disease - Cardiology 02/02/22 08/06/24 Gloria Martinez MD #2 [facility] [address] [place] [address] Consulting Physician Urology 04/30/24 documented as of this encounter
--- OUTSIDE RECORDS SUMMARY | 2024-10-16 21:27 | XMS_ITS | Encounter Summary ---
Author Organization [facility] Address [address] [place] [address] Phone Care Team Providers Care Checker Cashier Name Role Phone Srikanth Adrian MD Unavailable Tad Romero MD Primary Care Provider [phone] Gloria Martinez MD Unavailable [phone] Reason for Visit * Reason Comments Medication Refill Encounter Details Date Type Department Care Team (Late Contact Info) Description 07/26/2024 Refill [facility] - Family Medicine [facility] #2 [place] [address] Jabier Peck MD #[address] [address] Medication Refill Social History Tobacco Use Types [...] CDT Gender Identity Male 05/03/2023 12:44 PM WORLD HISTORY TEACHER Sexual Orientation Lesbian or Wolff 05/03/2023 12 :44 PM WORLD HISTORY TEACHER documented as of this encounter Miscellaneous Notes * Telephone Encounter - Sheyla Burgess RN - 07/28/2024 10:39 AM WORLD HISTORY TEACHER Changed PCPs to Tad Mcintosh MD D HISTORY TEACHER * Telephone Encounter - Sheyla Burgess RN - 07/28/2024 10:39 AM WORLD HISTORY TEACHER Now seeing Tad Mcintosh MD D HISTORY TEACHER * Telephone Encounter - Sheyla Burgess RN - 07/28/2024 10:38 AM WORLD HISTORY TEACHER Needs OV. Last seen April 2023. D HISTORY TEACHER documented in this encounter Plan of Treatment Upcoming Encounters Date Type Department Care Team (Late st Contact Info) Description 10/17/2024 1:00 PM CDT Procedure Visit [facility] #2 [place] [address] Gloria Martinez MD #[address] [address] documented as of this encounter Visit Diagnoses Not on filedocumented in this encounter Care Teams Checker Cashier Relationship Specialty Start Date End Date Tad Mcintosh MD [address] [place] [address] PCP - General Family Medicine 01/17/24 Srikanth Adrian MD Tax Services Specialist Cardiovascular Disease - Cardiology 02/02/22 08/06/24 Gloria Martinez MD #2 [place] [address] Consulting Physician Urology 04/30/24 documented as of this encounter
--- OUTSIDE RECORDS SUMMARY | 2024-10-16 21:27 | XMS_ITS | Encounter Summary ---
Author Organization [facility] Address [address] [facility] [place] [address] Phone Care Team Providers Care Process Specialist Name Role Phone Jabier Peck MD Primary Care Provider [phone] Srikanth Adrian MD Unavailable Tad Romero MD Primary Care Provider [phone] Gloria Martinez MD Unavailable [phone] Reason for Visit * Reason Comments Medication Refill Encounter Details Date Type Department Care Team (Late st Contact Info) Description 01/06/2021 Refill [facility] - Family Medicine [facility] #2 [place] [address] Jt Morillo MD [address] [place] [address] Medication Refill Social History Tobacco Use Types [...] CDT Gender Identity Male 05/03/2023 12:44 PM MACHINE SHOP REPAIR TECHNICIAN Sexual Orientation Lesbian or Wolff 05/03/2023 12 :44 PM MACHINE SHOP REPAIR TECHNICIAN documented as of this encounter Miscellaneous Notes * Telephone Encounter - Aisha Escamilla RN - 01/06/2021 11:22 AM CDT Refilled Eliquis per last F/U note. documented in this encounter Plan of Treatment Upcoming Encounters Date Type Department Care Team (Late st Contact Info) Description 10/17/2024 1:00 PM CDT Procedure Visit [facility] #2 [place] [address] Gloria Martinez MD #2 [facility] [address] [place] [address] documented as of this encounter Visit Diagnoses Diagnosis History of thrombophilia associated with MTHFR mutation Penile mass- Primary Unspecified disorder of penis documented in this encounter Additional Health Concerns Infection Onset Date Last Indicated Resolved Time COVID - 19 Confirmed 05/31/2022 05/31/2022 023 12:16 AM MACHINE SHOP REPAIR TECHNICIAN Respiratory Rule Out - RPA 02/26/2023 02/26/2023 0 02/26/2023 11:31 AM CDT COVID - 19 02/26/2023 02/26/2023 03/08/2023 12:1 6 AM CDT documented as of this encounter Care Teams Process Specialist Relationship Specialty Start Date End Date Jabier Peck MD #2 [facility] [address] [place] [address] PCP - General Family Medicine 06/22/20 01/16/24 Tad Mcintosh MD [address] [place] [address] PCP - General Family Medicine 01/17/24 Srikanth Adrian MD #[address] [facility] [address] [place] [address] Sausage Stuffer Cardiovascular Disease - Cardiology 02/02/22 08/06/24 Gloria Martinez MD #[address] [facility] [address] [facility] [address] [place] [address] Consulting Physician Urology 04/30/24 documented as of this encounter
--- OUTSIDE RECORDS SUMMARY | 2024-10-16 21:27 | XMS_ITS | Encounter Summary ---
Author Organization [facility] Address [address] [place] [address] Phone Care Team Providers Care Typewriter Aligner Name Role Phone Jabier Peck MD Primary Care Provider [phone] Srikanth Adrian MD Unavailable Tad Romero MD Primary Care Provider Gloria Martinez MD Unavailable [phone] Reason for Visit * Reason Comments Medication Refill Encounter Details Date Type Department Care Team (Late st Contact Info) Description 03/19/2023 Refill [facility] - Family Medicine [facility] #2 [place] [address] Jabier Peck MD #[address] [address] Medication Refill Social History Tobacco Use Types [...] CDT Gender Identity Male 05/03/2023 12:44 PM SENIOR RESTAURANT MANAGER Sexual Orientation Lesbian or Wolff 05/03/2023 12 :44 PM SENIOR RESTAURANT MANAGER COVID-19 Exposure Response Date Recorded In the last 10 days, have yo u been in contact with someone who was confirmed or suspected to have Coronavirus/COVID-19? No / Unsure 02/26/2023 10:28 AM CDT documented as of this encounter Miscellaneous Notes * Telephone Encounter - Francine Soto RN - 03/20/2023 9:25 AM CDT Medication failed the protocol, provider to review and approve the medication order if appropriate. Requested Prescriptions Pending Prescriptions Disp Refills gabapentin (NEURONTIN) 600 MG Tablet [Pharmacy Med Name: GABAPENTIN 600MG TABS] 270 Tablet 0 Sig: TAKE ONE TABLET BY MOUTH THREE TIMES A DAY Not Delegated - Anticonvulsants Excluding Benzodiazepines Protocol Failed - 03/19/2023 10:25 AM Failed - This refill cannot be delegated Passed - Visit with relevant provider in past 12 months or upcoming 90 days Recent Visits Date Type Provider Dept 02/26/23 Office Visit Kishore Prieto APRN, RICHARD [facility] 12/18/22 Telemedicine Jabier Peck MD [facility] 11/30/22 Telemedicine Kishore Prieto APRN, [facility] 08/21/22 Office Visit Jabier Peck MD [facility] 07/20/22 Office Visit Gerri Rocha MD [facility] 05/03/22 Telemedicine [facility] [place] Showing recent visits within past 365 days and meeting all other requirements Future Appointments No visits were found meeting these conditions. Showing future appointments within next 90 days and meeting all other requirements documented in this encounter Plan of Treatment Upcoming Encounters Date Type Department Care Team ([facility] Contact Info) Description 10/17/2024 1:00 PM CDT Procedure Visit [facility] #[address] [place] [address] Gloria Martinez MD #[address] [address] documented as of this encounter Visit Diagnoses Diagnosis Cervical radiculopathy Brachial neuritis or radiculitis nos Lumbar radiculopathy Thoracic or lumbosacral neuritis or radiculitis, unspecified Penile mass- Primary Unspecified disorder of penis documented in this encounter Care Teams Typewriter Aligner Relationship Specialty Start Date End Date Jabier Peck MD #2 [facility] [address] [place] [address] PCP - General Family Medicine 06/22/20 01/16/24 Tad Mcintosh MD [address] [place] [address] PCP - General Family Medicine 01/17/24 Srikanth Adrian MD #2 [facility] [address] [place] [address] Hair Stylist Cardiovascular Disease - Cardiology 02/02/22 08/06/24 Gloria Martinez MD #2 [facility] [address] [place] [address] Consulting Physician Urology 04/30/24 documented as of this encounter
--- OUTSIDE RECORDS SUMMARY | 2024-10-16 21:27 | XMS_ITS | Encounter Summary ---
Author Organization [facility] Address [address] [place] [address] Phone Care Team Providers Care Office Support Specialist Name Role Phone Jabier Peck MD Primary Care Provider [phone] Srikanth Adrian MD Unavailable Tad Romero MD Primary Care Provider [phone] Gloria Martinez MD Unavailable [phone] Reason for Visit * Reason Comments Medication Refill Encounter Details Date Type Department Care Team (Late st Contact Info) Description 12/07/2023 Refill [facility] Family Medicine [facility] #2 [place] [address] Jabier Peck MD #[address] [address] Medication Refill Social History Tobacco Use Types [...] CDT Gender Identity Male 05/03/2023 12:44 PM FINANCIAL BUSINESS ANALYST Sexual Orientation Lesbian or Wolff 05/03/2023 12 :44 PM FINANCIAL BUSINESS ANALYST documented as of this encounter Miscellaneous Notes * Telephone Encounter - Sheyla Burgess RN - 12/07/2023 3:21 PM CDT Per nursing clinical judgement, provider to review and approve the medication(s) order(s) if appropriate. Requested Prescriptions Pending Prescriptions Disp Refills albuterol 108 (90 Base) MCG/ACT Aerosol Solution [Pharmacy Med Name: ALBUTEROL HFA 90 MCG INHALER (VT] 8.5 g Sig: TRANSFERRED: 06/15/23 -READ RX NOTE (ALT-N)- 1 OR 2 PUFFS BY MOUTH EVERY SIX HOURS NEEDED WHEEZING Short Acting Inhaled Beta-Agonists Protocol Passed - 12/07/2023 2:36 PM Passed - Visit with relevant provider in past 12 months or upcoming 90 days Recent Visits Date Type Provider Dept 05/11/23 Office Visit Piper Toro APRN, RICHARD [facility] 05/03/23 Office Visit Piper Toro APRN, R[facility] 02/26/23 Office Visit Kishore Prieto APRN, RICH[facility] 12/18/22 Telemedicine Jabier Peck MD [facility] Showing recent visits within past 365 days and meeting all other requirements Future Appointments No visits were found meeting these conditions. Showing future appointments within next 90 days and meeting all other requirements documented in this encounter Plan of Treatment Upcoming Encounters Date Type Department Care Team (Late st Contact Info) Description 10/17/2024 1:00 PM CDT Procedure Visit [facility] #[address] [place] [address] Gloria Martinez MD #[address] [facility] [address] [facility] [address] [place] [address] documented as of this encounter Visit Diagnoses Not on filedocumented in this encounter Care Teams Office Support Specialist Relationship Specialty Start Date End Date Jabier Peck MD #2 [facility] [address] [place] [address] PCP - General Family Medicine 06/22/20 01/16/24 Tad Mcintosh MD [address] [place] [address] PCP - General Family Medicine 01/17/24 Srikanth Adrian MD #2 [facility] [address] [place] [address] Manager Practice Cardiovascular Disease - Cardiology 02/02/22 08/06/24 Gloria Martinez MD #2 [facility] [address] [place] [address] Consulting Physician Urology 04/30/24 documented as of this encounter
--- OUTSIDE RECORDS SUMMARY | 2024-10-16 21:27 | XMS_ITS | Encounter Summary ---
Author Organization [facility] Address [address] [place] [address] Phone Care Team Providers Care Dinkey Press Operator Name Role Phone Jabier Peck MD Primary Care Provider [phone] Srikanth Adrian MD Unavailable Tad Romero MD Primary Care Provider [phone] Gloria Martinez MD Unavailable [phone] Reason for Visit * Reason Comments Medication Refill Encounter Details Date Type Department Care Team (Late st Contact Info) Description 02/27/2023 [facility]ill [facility] [address] [place] [address] Jabier Peck MD #[address] [address] Medication Refill Social History Tobacco Use Types [...] CDT Gender Identity Male 05/03/2023 12:44 PM [employer] Sexual Orientation Lesbian or Wolff 05/03/2023 12 :44 PM [employer]IL [employer] DELIV[employer] COVID-19 Exposure Response Date Recorded In the last 10 days, have yo u been in contact with someone who was confirmed or suspected to have Coronavirus/COVID-19? No / Unsure 02/26/2023 10:28 AM CDT documented as of this encounter Miscellaneous Notes * Telephone Encounter - Francine Soto RN - 02/27/2023 2:16 PM CDT Medication failed the protocol, provider to review and approve the medication order if appropriate. Requested Prescriptions Pending Prescriptions Disp Refills methocarbamol (ROBAXIN) 750 MG Tablet [Pharmacy Med Name: METHOCARBAMOL 750MG TABS] 45 Tablet 0 Sig: TAKE ONE TABLET BY MOUTH EVERY DAY NEEDED Not Delegated - Muscle Relaxants Protocol Failed - 02/27/2023 1:10 PM Failed - This refill cannot be delegated Passed - Visit with relevant provider in past 12 months or upcoming 90 days Recent Visits Date Type Provider Dept 02/26/23 Office Visit Kishore Prieto APRN, [facility] 12/18/22 Telemedicine Jabier Peck MD [facility] 11/30/22 Telemedicine Kishore Prieto APRN, [facility] 08/21/22 Office Visit Jabier Peck MD [facility] 07/20/22 Office Visit Gerri Rocha MD [facility] 05/03/22 Telemedicine Jabier Peck MD [facility] 03/03/22 Office Visit Jabier Peck MD [facility] Showing recent visits within past 365 days and meeting all other requirements Future Appointments No visits were found meeting these conditions. Showing future appointments within next 90 days and meeting all other requirements documented in this encounter Plan of Treatment Upcoming Encounters Date Type Department Care Team (Late st Contact Info) Description 10/17/2024 1:00 PM CDT Procedure Visit [facility] [address] [place] [address] Gloria Martinez MD [address] [facility] [address] [place] [address] documented as of this encounter Visit Diagnoses Diagnosis Cervical radiculopathy Brachial neuritis or radiculitis nos Penile mass- Primary Unspecified disorder of penis documented in this encounter Additional Health Concerns Infection Onset Date Last Indicated Resolved Time COVID - 19 02/26/2023 02/26/2023 03/08/2023 12:1 6 AM CDT documented as of this encounter Care Teams Dinkey Press Operator Relationship Specialty Start Date End Date Jabier Peck MD [address] [address] PCP - General Family Medicine 06/22/20 01/16/24 Tad Mcintosh MD [address] [place] [address] PCP - General Family Medicine 01/17/24 Srikanth Adrian MD #[address] [facility] [address] [place] [address] Franchise Field Consultant Cardiovascular Disease - Cardiology 02/02/22 08/06/24 Gloria Martinez MD #[address] [facility] [address] [place] [address] Consulting Physician Urology 04/30/24 documented as of this encounter
--- OUTSIDE RECORDS SUMMARY | 2024-10-16 21:27 | XMS_ITS | Encounter Summary ---
Author Organization [facility] Address [address] [place] [address] Phone Care Team Providers Care Experimental Physicist Name Role Phone Jabier Peck MD Primary Care Provider [phone] Srikanth Adrian MD Unavailable Tad Romero MD Primary Care Provider [phone] Gloria Martinez MD Unavailable [phone] Reason for Visit * Reason Onset Date Comments Medication Refill 12/28/2021 Encounter Details Date Type Department Care Team (Late st Contact Info) Description 12/28/2021 Refill [facility] - Family Medicine [facility] [address] [place] [address] Jabier Peck MD #[address] [address] Medication Refill Social History Tobacco Use Types [...] CDT Gender Identity Male 05/03/2023 12:44 PM [employer] Sexual Orientation Lesbian or Wolff 05/03/2023 12 :44 PM [employer] COVID-19 Exposure Response Date Recorded In the last 10 days, have yo u been in contact with someone who was confirmed or suspected to have Coronavirus/COVID-19? No / Unsure 12/30/2021 3:33 PM CDT documented as of this encounter Miscellaneous Notes * Telephone Encounter - Jaylen Yadira - 12/28/2021 9:41 AM CDT Received a faxed Rx request from pharmacy. Reordered refill medication(s) requested and pended for nurse and physician/MARVA review. Refill encounter routed to nurse Javiridmitriy's pool for processing. documented in this encounter Plan of Treatment Upcoming Encounters Date Type Department Care Team (Late st Contact Info) Description 10/17/2024 1:00 PM CDT Procedure Visit [facility] [address] [place] [address] Gloria Martinez [facility] [address] [place] [address] documented as of this encounter Visit Diagnoses Not on filedocumented in this encounter Additional Health Concerns Infection Onset Date Last Indicated Resolved Time COVID - 19 Confirmed 05/31/2022 05/31/2022 023 12:16 AM [employer] Respiratory Rule Out - RPA 02/26/2023 02/26/2023 0 02/26/2023 11:31 AM CDT COVID - 19 02/26/2023 02/26/2023 03/08/2023 12:1 6 AM CDT documented as of this encounter Care Teams Experimental Physicist Relationship Specialty Start Date End Date Jabier Peck MD #2 [facility] [address] [place] [address] PCP - General Family Medicine 06/22/20 01/16/24 Tad Mcintosh MD [address] [place] [address] PCP - General Family Medicine 01/17/24 Srikanth Adrian MD #[address] [address] Technical Service Representative Cardiovascular Disease - Cardiology 02/02/22 08/06/24 Gloria Martinez MD [address] [facility] [address] [place] [address] Consulting Physician Urology 04/30/24 documented as of this encounter
--- OUTSIDE RECORDS SUMMARY | 2024-10-16 21:27 | XMS_ITS | Clinical Summary ---
Author Organization [facility] Address [address] [address] Phone Care Team Providers Care Retail Beauty Specialist Name Role Phone Tad Mcintosh MD Primary Care Provider [phone] Gloria Martinez MD Unavailable [phone] Allergies Active Allergy Reactions Criticality Noted Date Comments Fluticasone Furoate-Vilanterol Shortness of Breath 03/08/2021 Iodinated Contrast Media Shortness of Breath High 08/05/2018 Per patient, he had SOB for 30 seconds after receiving contrast at another facility during a contrasted CT exam. ER Dr. Ferguson premedicated patient [address] Chest w/ on 12/13/2019 with 125mg Solumedrol and 50mg Benadryl. Patient had no reaction during exam. Ketorolac Tromethamine Unknown 02/08/2021 Medications buPROPion (WELLBUTRIN) 300 MG TABLET SR 24 HR XL tablet Take 1 Tab by mouth daily. 01/16/20 17 Active TRAZODONE HCL PO Take 200 mg by mouth nightly. 02/15/20 17 Active Aripiprazole 20 MG Tablet Take 25 mg by mouth nightly. Active aspirin 81 MG Chewable Tablet Take 81 mg by mouth daily. Active venlafaxine (EFFEXOR-XR) 150 MG CAPSULE SR 24 HR daily. 05/31/20 20 Active ALBUTEROL SULFATE IN take by inhalation every 4 hours as needed. Active NEEDLE, DISP, 18 G 18G X 1-1/2 MiscIndications:Hy pogonadism in male Use to draw up testosterone 6 Each 3 07/28/19 21 Active Syringe/Needle, Disp, 22G X 1-1/2 1.5 ML MiscIndications:Hy pogonadism in male Use for testosterone injection 6 Each 3 07/28/19 21 Active Respiratory Therapy Supplies (Nebulizer) Device Use as directed 1 Each 09/15/19 Active pseudoephedrine (SUDAFED) 120 MG TABLET SR 12 HR Take 120 mg by mouth 2 times daily as needed. Active cetirizine (ZyrTEC) 10 MG Tablet Take 10 mg by mouth daily. Active OXcarbazepine (TRILEPTAL) 300 MG Tablet Take 600 mg by mouth 2 times daily. Active naloxone HCl (Narcan) 4 MG/0.1ML Liquid Use one nasal spray every 2-3 minutes until awake from drug overdose. Call 911. 2 Each 01/26/20 22 Active diclofenac (VOLTAREN) 50 MG Tablet Delayed Response TAKE 1 TABLET BY MOUTH EVERY 8 HOURS NEEDED-30 DAY SUPPLY 02/17/20 22 Active metoprolol Succinate (TOPROL-XL) 25 MG TABLET SR 24 HR TAKE 1 TABLET BY MOUTH EVERY DAY 90 Tablet 2 06/13/20 22 Active HYDROcodone-acetam inophen (NORCO) 10-325 MG TabletIndications: Chronic pain syndrome Take 1 Tablet by mouth every 8 hours as needed for Moderate or more severe pain. 42 Tablet 08/22/19 23 Active montelukast (SINGULAIR) 10 MG TabletIndications: Asthma TAKE 1 TABLET BY MOUTH EVERY EVENING. INDICATIONS: ASTHMA 90 Tablet 3 10/10/19 23 Active apixaban (Eliquis) 5 MG TabletIndications: History of Thromboembolic Disease Take 1 Tablet by mouth 2 times daily. Indications: History of Disease involving a Thrombosis or an Embolism 180 Tablet 3 02/27/20 23 Active rOPINIRole (REQUIP) 1 MG Tablet Take 1 Tablet by mouth daily. 90 Tablet 3 02/27/20 23 Active Fosinopril Sodium 40 MG Tablet Take 1 Tablet by mouth daily. 90 Tablet 3 02/27/20 23 Active omeprazole (PriLOSEC) 20 MG CAPSULE DELAYED RELEASE TAKE 1 CAPSULE BY MOUTH TWICE A DAY 180 Capsule 1 03/19/20 23 Active gabapentin (NEURONTIN) 600 MG TabletIndications: Cervical radiculopathy,Lumb ar radiculopathy TAKE ONE TABLET BY MOUTH THREE TIMES A DAY 270 Tablet 03/20/20 23 Active atorvastatin (LIPITOR) 80 MG Tablet Take 1 Tablet by mouth daily. 90 Tablet 1 03/19/20 23 Active methocarbamol (ROBAXIN) 750 MG TabletIndications: Cervical radiculopathy TAKE ONE TABLET BY MOUTH EVERY DAY NEEDED 45 Tablet 04/15/20 23 Active fluticasone (FLONASE) 50 MCG/ACT Suspension SPRAY 1-2 SPRAYS INTO EACH NOSTRIL ONCE DAILY DIRECTED 48 g 1 05/15/20 23 Active fluticasone-salmet rivera (ADVAIR) 500-50 MCG/ACT AEROSOL POWDER, BREATH ACTIVATED INHALE 1 PUFF BY MOUTH IN THE MORNING AND AT BEDTIME 60 Each 5 08/01/19 24 Active albuterol 108 (90 Base) MCG/ACT Aerosol Solution TRANSFERRED: 06/15/23 -READ RX NOTE (ALT-N)- 1 OR 2 PUFFS BY MOUTH EVERY SIX HOURS NEEDED WHEEZING 8.5 g 1 12/07/19 24 Active tadalafil (CIALIS) 20 MG Tablet Take 1 Tablet by mouth as needed for Erectile Dysfunction. 30 Tablet 1 03/11/20 24 Active Active Problems Problem Noted Date Diagnosed Date MAK on CPAP 12/18/2022 Noncompliance 08/21/2022 Urinary urgency 08/21/2022 Personal history of tobacco use, presenting hazards to health 08/21/2022 Diabetic ulcer of toe of rig ht foot associated with type 2 diabetes mellitus, limited to breakdown of skin 07/20/2022 Type 2 diabetes mellitus treated without insulin 05/04/2022 Abnormal EKG 05/04/2022 Chest pain 05/04/2022 Fatigue 05/04/2022 Anemia in stage 3 chronic kidney disease 022 Abnormal coagulation profile 05/03/2022 Toe infection 03/03/2022 Elevated serum creatinine 08/01/2021 Chronic pain syndrome 08/01/2021 Dysphagia 04/29/2021 Seasonal allergies 04/29/2021 Diet-controlled diabetes mellitus 10/20/2020 Obesity (BMI 30-39.9) 10/20/2020 RLS (restless legs syndrome) 10/20/2020 Non morbid obesity 09/14/2020 Lupus anticoagulant disorder 09/14/2020 Acute pulmonary embolism without acute cor pulmo nale 12/13/2019 Peripheral polyneuropathy 09/10/2019 Rectus diastasis 08/08/2018 Sleep apnea Kidney disease, chronic, stage III (GFR 30-59 ml /min) Hypertension Bipolar 1 disorder, mixed, mild Asthma Tobacco dependency COPD (chronic obstructive pulmonary disease) Hyperlipidemia GERD (gastroesophageal reflux disease) Pain, dental History of thrombophilia associated with MTHFR m utation Resolved Problems Problem Noted Date Diagnosed Date Resolved Date Diabetic foot infection 09/18/2021 04/0 11/2021 Encounters Date Type Department Care Team Description 07/26/2024 Refill [facility] [address] [place] [address] Jabier Peck MD Medication Refill from Last 3 Months Immunizations Immunization Administration Dates Next Due Covid-19, Mrna, Lnp-s, Pf, 30 Mcg/0.3 Ml Dose (P fizer) 09/11/2020,08/21/2020 Influenza Vaccine greater than 3 yrs 05/07/2023 Influenza Vaccine, Quadrivalent, PF 02/24/2022,0 08/01/2021 Influenza Vaccine,unspecified Formulation 2019 Influenza, Injectable, Quadrivalent 03/10/2016 Influenza, Seasonal, Injectable, Undefined 03/23,05/14/2013 Influenza, Trivalent, Adjuvanted, PF 03/23/2014, 05/14/2013 Pneumococcal Vaccine Adult - 23 Valent 1 TDAP Vaccine 02/26/2019,02/26/2019 Family History Medical History Relation Name Comments Cancer Brother 1 Ten No Known Problems Brother 2 Cedrick Colon Cancer Brother 3 Shen Rheumatoid Arthritis Brother 4 Shaq Chronic Obstructive Pulmonary Disease Father Bipolar Disorder Maternal Grandmother Bipolar Disorder Mother Cancer Mother Colon Cancer Mother Cancer Paternal Grandfather Heart Attack Sister 1 Karine Stroke Sister 1 Karine Rheumatoid Arthritis Sister 2 Amarilys No Known Problems Sister 3 Chandni Cancer Sister 4 Elisabeth Kidney Cancer Sister 5 Anjali Clotting Disorder Sister 6 Claudia Embolism Other-comment Sister 6 Claudia PE Relation Name Status Comments Brother 1 Ten Brother 2 Cedrick Alive Brother 3 Shen Alive Brother 4 Shaq Alive Father Maternal Grandmother Mother Paternal Grandfather Sister 1 Karine Alive Sister 2 Amarilys Alive Sister 3 Chandni Alive Sister 4 Elisabeth Sister 5 Anjali Sister 6 Claudia Social History Tobacco Use Types Packs/Day Years Used Date Smoking Tobacco: Former Cigarettes 1 35 Smokeless Tobacco: Never Tobacco Cessation:Counseling Given: Not Answered Alcohol Use Standard Drinks/Week Comments No 0 [...] CDT Gender Identity Male 05/03/2023 12:44 PM MOTOR GENERATOR SET OPERATOR Sexual Orientation Lesbian or Wolff 05/03/2023 12 :44 PM MOTOR GENERATOR SET OPERATOR Last Filed Vital Signs Vital Sign Reading Time Taken Comments Blood Pressure 129/82 03/11/2024 2:22 PM CDT Pulse 71 03/11/2024 2:22 PM CDT Temperature 36.5 C (97.7 F) 05/11/2023 1:15 PM MOTOR GENERATOR SET OPERATOR Respiratory Rate 18 03/11/2024 2:22 PM CDT Oxygen Saturation 98% 03/11/2024 2:22 PM CDT Inhaled Oxygen Concentration - - Weight 99.8 kg (220 lb) 03/11/2024 2:22 PM CDT Height 175.3 cm (5' 9 ) 03/11/2024 2:22 PM CDT Body Mass Index 32.49 03/11/2024 2:22 PM CDT Plan of Treatment Upcoming Encounters Date Type Department Care Team (Late st Contact Info) Description 10/17/2024 1:00 PM CDT Procedure Visit [facility] [address] [place] [address] Gloria Martinez MD [address], [address] [address] Health Maintenance Due Date Last Done Comments Diabetes: Eye Exam 1970 Hepatitis B Immunization (1 of 3 - 19+ 3-dose series) 02/10/1988 Cologuard 2019 Immunochemical Fecal Occult Blood 2019 Zoster Immunization (1 of 2) 2019 Pneumococcal Immunization (50+ years) (2 of 2 - PCV) 06/22/2021 06/22/2020 Diabetes: Foot Exam 08/18/2022 08/18/2021 Diabetes: Hemoglobin A1c 08/27/2023 023, 08/21/2022, 03/03/2022, Additional history exists SARS-COV-2 Immunization ( season) 2024 05/30/2021, 09/11/2020, 08/21/2020 Diabetes: Nephropathy Screening 02/27/2024 02/26/2023, 08/21/2022, 03/03/2022, Additional history exists Influenza Immunization (Season Ended) 2025 05/07/2023, 02/24/2022, 08/01/2021, Additional history exists Colonoscopy 10/06/2025 10/06/2020 Colorectal Cancer Screening 10/06/2025 Td Immunization Every 10 Years (Adults With 1 Tdap) 02/26/2029 02/26/2019, 02/26/2019 Respiratory Syncytial Virus (RSV) Immunization (Adult) (1 - 1-dose 75+ series) 02/10/2044 10/06/2020 DTaP/Tdap/Td Immunization Discontinued 02/26/2019, 04/2019 Pneumococcal Immunization Combined Discontinued 06/22/2020 Hepatitis C Virus (HCV) Screening Completed 10/14/2020 Lung Cancer Screening Discontinued 05/10/2022, 020 PSA Discussion Completed 02/26/2023, 12/16, 07/07/2020 Human Papillomavirus (HPV) Immunization Aged Out No longer eligible based on patient's age to complete this topic Meningococcal Immunization (ACWY) Aged Out No longer eligible based on patient's age to complete this topic Rotavirus Immunization Aged Out No lo nger eligible based on patient's age to complete this topic Procedures Procedure Name Priority Date/Time Associated Diagnosis Comments CMP (COMPREHENSIVE METABOLIC PANEL) Routine 02/26/2023 12:32 PM CDT Type 2 diabetes mellitus with hyperglycemia, without long-term current use of insulin (HCC) HEMOGLOBIN A1C W/ ESTIMATED GLUCOSE Routine 02/26/2023 12:32 PM CDT Type 2 diabetes mellitus with hyperglycemia, without long-term current use of insulin (HCC) PSA SCREEN Routine 02/26/2023 12:32 PM CDT Screening for prostate cancer CT CHEST SCREENING WO Routine 05/10/2022 2:52 PM MOTOR GENERATOR SET OPERATOR Personal history of nicotine dependence PODIATRY CONSULT 08/18/2021 12:0 0 AM MOTOR GENERATOR SET OPERATOR from Last 3 Months or Most Recently Relevant to Health Maintenance Results * (ABNORMAL) HEMOGLOBIN A1C W/ ESTIMATED GLUCOSE (02/26/2023 12:32 PM CDT) [facility] HGB-A1C 7.1(H) 4.0 - 6.0 % 02/26/2023 1:18 PM CDT [facility] Est Average Glucose 157.1 mg/dL 02/26/2023 1:18 PM CDT [facility] Blood Venipuncture / Unknown 02/26/2023 12:32 PM CDT 02/26/2023 12:58 PM CDT Narrative [facility] - 02/26/2023 1:18 PM CDT HEMOGLOBIN A1C: DIABETIC PATIENTS: WELL-CONTROLLED: 6.2 - 7.0 INTERMEDIATE WELL-CONTROLLED: 7.0 - 9.0 POORLY-CONTROLLED: >9.0 us Kishore Prieto APRN, MANAGER UTILIZATION REVIEW CHEMISTRY ORDERA BLES Final Result [facility] [address] [place] [address] * PSA SCREEN (02/26/2023 12:32 PM CDT) [facility] PSA SCREEN, TOTAL 0.60 <4.00 ng/mL 02/26/2023 1:45 PM CDT [facility] Blood Venipuncture / Unknown 02/26/2023 12:32 PM CDT 02/26/2023 12:57 PM CDT Narrative [facility] - 02/26/2023 1:45 PM CDT The RECYCLING OPERATIONS MANAGER Total PSA assay is a Chemiluminescent Microparticle Immunoassay (CMIA) for the quantitative determination of total PSA (both free PSA and PSA complexed to [id number]) in human serum. us Kishore Prieto APRN, MANAGER UTILIZATION REVIEW CHEMISTRY ORDERA BLES Final Result [facility] [address] [place] [address] * (ABNORMAL) CMP (COMPREHENSIVE METABOLIC PANEL) (02/26/2023 12:32 PM CDT) [facility] SODIUM 140 136 - 145 mmol/L 02/26/2023 1:22 PM CDT [facility] POTASSIUM 3.8 3.5 - 5.1 mmol/L 02/26/2023 1:22 PM CDT [facility] CHLORIDE 106 98 - 107 mmol/L 02/26/2023 1:22 PM CDT [facility] CO2, VENOUS 25 22 - 30 mmol/L 02/26/2023 1:22 PM CDT [facility] ANION GAP 12.8 <18.0 mmol/L 02/26/2023 1:22 PM CDT [facility] GLUCOSE 141(H) 70 - 99 mg/dL 02/26/2023 1:22 PM CDT [facility] BUN 17 8 - 26 mg/dL 02/26/2023 1:22 PM CDT [facility] CREATININE, BLOOD 1.49(H) 0.70 - 1.30 mg/dL 02/26/2023 1:22 PM CDT [facility] BUN/CREATININE RATIO 11(L) 12 - 20 ratio 02/26/2023 1:22 PM [facility] TOTAL PROTEIN 6.7 6.3 - 8.2 g/dL 02/26/2023 1:22 PM [facility] ALBUMIN 3.8 3.5 - 5.0 g/dL 02/26/2023 1:22 PM [facility] A/G RATIO 1.3 1.0 - 2.2 02/26/2023 1:22 PM [facility] CALCIUM 9.3 8.7 - 10.5 mg/dL 02/26/2023 1:22 PM [facility] T BILI 0.4 0.2 - 1.2 mg/dL 02/26/2023 1:22 PM [facility] SGOT (AST) 20 5 - 34 U/L 02/26/2023 1:22 PM [facility] SGPT (ALT) 37 0 - 55 U/L 02/26/2023 1:22 PM [facility] ALKALINE PHOSPHATASE 102 40 - 150 U/L 02/26/2023 1:22 PM [facility] IS THE PATIENT REQUIRED TO BE FASTING? No 02/26/2023 1:22 PM [facility] GFR, ESTIMATED 55(L) >=60 02/26/2023 1:22 PM [facility] Comment: Creatinine Clearance is the preferred criteria for selecting drug dose adjustments in renally impaired patients. The GFR is provided as additional pertinent clinical information. GFR is reported in mL/min/1.73 sq m. Calculation based on the Chronic Kidney Disease Epidemiology Collaboration (CKD- EPI) equation refit without adjustment for race. GFR, EST. 60 >=60 023 1:22 PM [facility] GFR, EST. NONAFRICAN 49(L) >=60 02/26/2023 1:22 PM [facility] Blood Venipuncture / Unknown 02/26/2023 12:32 PM CDT 02/26/2023 12:57 PM CDT us Kishore Prieto APRN, RICHARD CHEMISTRY ORDERA BLES Final Result [facility] [address] [place] [address] * CT CHEST SCREENING WO (05/10/2022 2:52 PM MOTOR GENERATOR SET OPERATOR) Anatomical Region Laterality Modality Chest N/A Computed Tomogra phy 05/12/2022 9:10 AM MOTOR GENERATOR SET OPERATOR Impressions 05/12/2022 9:13 AM MOTOR GENERATOR SET OPERATOR IMPRESSION: 1. Background of mild pulmonary emphysema. 2. Scattered tiny bilateral pulmonary nodules. No suspicious nodularity. 3. Mild coronary artery calcifications. 4. Additional findings as above. Lung-RADS v1.1 category 2: Benign appearance or behavior. Recommendation: Low dose CT of chest in 12 months. Narrative 05/12/2022 9:13 AM MOTOR GENERATOR SET OPERATOR EXAM DESCRIPTION: CT CHEST SCREENING WO REASON FOR STUDY: Screening CT of the chest in a former smoker with a 60 pack year smoking history. Additional history: Patient quit smoking 4 months ago.. TECHNIQUE: Low dose CT scan of the chest was performed without intravenous contrast using helical scanning technique. The exam extends from the lung apices through the lung bases. Automatic exposure control was used as a dose optimization technique. NOTE: This study was performed for the specific purposes of lung cancer screening and is not an alternative to diagnostic chest CT. RADIATION DOSE: CT dose index volume (CTDIvol) = 4.29 mGy COMPARISON: 12/13/2019. FINDINGS: SMOKING RELATED LUNG DISEASE: There is background of mild pulmonary emphysema within the upper lobes. LUNG NODULES: There are a few scattered tiny bilateral pulmonary nodules. For instance a 2 mm nodule in the periphery of the right middle lobe on image number 178 of series 5. There is no suspicious pulmonary nodule present within either lung. OTHER: Central airways are widely patent. There is no pneumonic consolidation. No effusion or pneumothorax. The thyroid gland is unremarkable. There is no mediastinal or hilar lymphadenopathy. Postinflammatory calcifications within the right hilum are similar to the prior examination. The esophagus is unremarkable. The heart is normal in size. There is no pericardial effusion. There are faint coronary artery calcifications. The thoracic aorta is normal in caliber. There is no axillary lymphadenopathy. The chest wall is unremarkable. Visualized upper abdomen reveals granulomatous calcifications within the spleen. There is diverticulosis. There is thoracic spondylosis and degenerative disc disease. THIS IS AN ELECTRONICALLY VERIFIED FINAL REPORT 05/12/2022 9:10 AM - Electronically signed by Mallorie Gomez M.D. TW: TW Report ID: [id number] Reading Location: [place] [address] Procedure Note Mallorie Gomez MD - 05/12/2022 EXAM DESCRIPTION: CT CHEST SCREENING WO REASON FOR STUDY: Screening CT of the chest in a former smoker with a 60 pack year smoking history. Additional history: Patient quit smoking 4 months ago.. TECHNIQUE: Low dose CT scan of the chest was performed without intravenous contrast using helical scanning technique. The exam extends from the lung apices through the lung bases. Automatic exposure control was used as a dose optimization technique. NOTE: This study was performed for the specific purposes of lung cancer screening and is not an alternative to diagnostic chest CT. RADIATION DOSE: CT dose index volume (CTDIvol) = 4.29 mGy COMPARISON: 12/13/2019. FINDINGS: SMOKING RELATED LUNG DISEASE: There is background of mild pulmonary emphysema within the upper lobes. LUNG NODULES: There are a few scattered tiny bilateral pulmonary nodules. For instance a 2 mm nodule in the periphery of the right middle lobe on image number 178 of series 5. There is no suspicious pulmonary nodule present within either lung. OTHER: Central airways are widely patent. There is no pneumonic consolidation. No effusion or pneumothorax. The thyroid gland is unremarkable. There is no mediastinal or hilar lymphadenopathy. Postinflammatory calcifications within the right hilum are similar to the prior examination. The esophagus is unremarkable. The heart is normal in size. There is no pericardial effusion. There are faint coronary artery calcifications. The thoracic aorta is normal in caliber. There is no axillary lymphadenopathy. The chest wall is unremarkable. Visualized upper abdomen reveals granulomatous calcifications within the spleen. There is diverticulosis. There is thoracic spondylosis and degenerative disc disease. THIS IS AN ELECTRONICALLY VERIFIED FINAL REPORT 05/12/2022 9:10 AM - Electronically signed by Mallorie Gomez M.D. TW: KRISTIN Report ID: [id number] Reading Location: [id number] IMPRESSION: 1. Background of mild pulmonary emphysema. 2. Scattered tiny bilateral pulmonary nodules. No suspicious nodularity. 3. Mild coronary artery calcifications. 4. Additional findings as above. Lung-RADS v1.1 category 2: Benign appearance or behavior. Recommendation: Low dose CT of chest in 12 months. us Kishore Prieto APRN, RICHARD IMG CT ORDERABLE S Final Result * PODIATRY CONSULT (08/18/2021 12:00 AM MOTOR GENERATOR SET OPERATOR) 08/18/2021 us Not On File Provider GENERIC SCAN ORDERS CONSULT Final Result SCAN from Last 3 Months or Most Recently Relevant to Health Maintenance Insurance MEDICA[place] [employer] [place] Advance Directives * Full Code (Latest Code Status on File) Date Activated Date Inactivated Comments 09/18/2021 1:05 AM 09/21/2021 2:51 PM CPR-Full Treat ment: FULL ARREST: Attempt Resuscitation/CPR wit intubation and mechanical ventilation. PRE-ARREST: Use entire range of life support measures to stabilize the patient. * Full Code Date Activated Date Inactivated Comments 12/14/2019 12:59 AM 12/15/2019 4:50 PM CPR-Full Tr eatment: FULL ARREST: Attempt Resuscitation/CPR wit intubation and mechanical ventilation. PRE-ARREST: Use entire range of life support measures to stabilize the patient. Care Teams Retail Beauty Specialist Relationship Specialty Start Date End Date Tad Mcintosh MD [address] [place] [id number] PCP - General Family Medicine 01/17/24 Gloria Martinez MD [address] [address] Consulting Physician Urology 04/30/24
--- OUTSIDE RECORDS SUMMARY | 2024-10-16 21:27 | XMS_ITS | Encounter Summary ---
Author Organization [facility] Address [address] [place] [address] Phone Care Team Providers Care Fermenter Name Role Phone Jabier Peck MD Primary Care Provider [phone] Srikanth Adrian MD Unavailable Tad Romero MD Primary Care Provider [phone] Gloria Martinez MD Unavailable [phone] Reason for Visit * Reason Onset Date Comments Medication Refill 03/23/2021 Encounter Details Date Type Department Care Team (Late st Contact Info) Description 03/23/2021 Refill [facility] Medical Group - Family Medicine [facility] #2 [place] [address] Jabier Peck MD #[address] [address] Medication Refill Social History Tobacco Use Types [...] CDT Gender Identity Male 05/03/2023 12:44 PM GLASS CRUSHER Sexual Orientation Lesbian or Wolff 05/03/2023 12 :44 PM GLASS CRUSHER COVID-19 Exposure Response Date Recorded In the last month, have you been in contact with someone who was confirmed or suspected to have Coronavirus / COVID-19? No / Unsure 03/15/2021 12:09 PM CDT documented as of this encounter Miscellaneous Notes * Telephone Encounter - Francine Soto RN - 03/23/2021 10:50 AM CDT New Rx for you - last filled by previous PCP (per pharmacy) Per nursing clinical judgement, provider to review and approve the medication(s) order(s) if appropriate. Requested Prescriptions Pending Prescriptions Disp Refills rOPINIRole (REQUIP) 1 MG Tablet 90 Tablet 1 Sig: Take 1 Tablet by mouth daily. [facility] Neu[facility]: Parkinsonian Agents Passed - 03/23/2021 10:49 AM Passed - Valid encounter within last 12 months Past Office Visits Recent Outpatient Visits 1 week ago Cervical radiculopathy [facility] Kishore Alonso APN, RUG MEASURER 4 months ago Dermatitis [facility] - Kishore Alonso APN, RUG MEASURER 5 months ago Diet-controlled diabetes mellitus (HCC) [facility] - Jabier Aldridge MD 7 months ago Thrombophilia (HCC) [facility] - Kishore Alonso APN, RUG MEASURER 7 months ago Obstructive sleep apnea syndrome [facility] - EverKishore Morgan APN, RUG MEASURER Upcoming Appointments Future Appointments Tomorrow [facility] RESP ROOM1 [facility] Respiratory Therapy, [facility] In 1 week Sofy Bowen, PT [facility] Rehab at [facility], [facility] In 2 weeks Jabier Peck MD [facility] Family Medicine [facility] In 1 month Aria Delong HELMET BINDER, SYSTEMS INTEGRATOR [facility] Neurology [facility] In 5 months Jt Morillo MD [facility] On[facility], [facility] RUNNER ON - Recent and Past Visits Recent Visits Date Type Provider Dept 03/16/21 Office Visit Kishore Prieto APN, RUG MEASURER [facility] 11/16/20 Office Visit Kishore Prieto APN, RUG MEASURER [facility] 10/20/20 Office Visit Jabier Peck MD [facility] 08/20/20 Telemedicine Kishore Prieto APN, RUG MEASURER [facility] 08/06/20 Telemedicine Kishore Prieto APN, RUG MEASURER [facility] 06/22/20 Office Visit Kishore Prieto APN, RUG MEASURER [facility] Showing recent visits within past 460 days with a meds authorizing provider and meeting all other requirements Future Appointments Date Type Provider Dept 04/08/21 Appointment Jabier Peck MD [facility] Showing future appointments within next 90 days with a meds authorizing provider and meeting all other requirements Passed - Last BP in normal range BP Readings from Last 1 Encounters: 03/16/21 128/64 * Telephone Encounter - Yadira York - 03/23/2021 8:13 AM CDT Received a faxed Rx request from pharmacy. Reordered refill medication(s) requested and pended for nurse and physician/MARVA review. Refill encounter routed to nurse Diamond's pool for processing. documented in this encounter Plan of Treatment Upcoming Encounters Date Type Department Care Team (Late st Contact Info) Description 10/17/2024 1:00 PM CDT Procedure Visit [facility] #[address] [place] [address] Gloria Martinez MD #2 [facility], [address] [place] [address] documented as of this encounter Visit Diagnoses Not on filedocumented in this encounter Additional Health Concerns Infection Onset Date Last Indicated Resolved Time COVID - 19 Confirmed 05/31/2022 05/31/2022 023 12:16 AM GLASS CRUSHER Respiratory Rule Out - RPA 02/26/2023 02/26/2023 0 02/26/2023 11:31 AM CDT COVID - 19 02/26/2023 02/26/2023 03/08/2023 12:1 6 AM CDT documented as of this encounter Care Teams Fermenter Relationship Specialty Start Date End Date Jabier Peck MD #2 [facility] [address] [place] [address] PCP - General Family Medicine 06/22/20 01/16/24 Tad Mcintosh MD [address] [place] [address] PCP - General Family Medicine 01/17/24 Srikanth Adrian MD #2 [facility] [address] [place] [address] Parachute Mender Cardiovascular Disease - Cardiology 02/02/22 08/06/24 Gloria Martinez MD #2 [facility] [address] [place] [address] Consulting Physician Urology 04/30/24 documented as of this encounter
--- OUTSIDE RECORDS SUMMARY | 2024-10-16 21:27 | XMS_ITS | Encounter Summary ---
Author Organization [facility] Address [address] [place] [address] Phone Care Team Providers Care Windows Migration Technician Name Role Phone Jabier Kwok MD Primary Care Provider [phone] Srikanth Adrian MD Unavailable Tad Romero MD Primary Care Provider [phone] Gloria Martinez MD Unavailable [phone] Reason for Visit * Reason Comments Medication Refill Encounter Details Date Type Department Care Team (Late st Contact Info) Description 01/23/2022 Refill [facility] #2 [place] [address] Jabier Kwok MD #[address] [address] Medication Refill Social History Tobacco Use Types [...] CDT Gender Identity Male 05/03/2023 12:44 PM FOREPART RASPER Sexual Orientation Lesbian or Wolff 05/03/2023 12 :44 PM FOREPART RASPER COVID-19 Exposure Response Date Recorded In the last 10 days, have tabby santiago been in contact with someone who was confirmed or suspected to have Coronavirus/COVID-19? No / Unsure 12/30/2021 3:33 PM CDT documented as of this encounter Miscellaneous Notes * Telephone Encounter - Francine Soto RN - 01/24/2022 11:20 AM CDT Quantity is 15 day supply Medication failed the protocol, provider to review and approve the medication order if appropriate. Requested Prescriptions Pending Prescriptions Disp Refills methocarbamol (ROBAXIN) 750 MG Tablet [Pharmacy Med Name: METHOCARBAMOL 750 MG TABLET] 45 Tablet 1 Sig: TAKE 1 TABLET BY MOUTH THREE TIMES A DAY NEEDED FOR MUSCLE SPASM Not Delegated - Muscle Relaxants Protocol Failed - 01/23/2022 10:12 AM Failed - This refill cannot be delegated Passed - Visit with relevant provider in past 12 months or upcoming 90 days Recent Visits Date Type Provider Dept 12/13/21 Telemedicine Kishore Prieto APRN, CNP [facility] 08/01/21 Office Visit Jabier Kwok MD [facility] 04/29/21 Office Visit Jabier Kwok MD [facility] 03/16/21 Office Visit Kishore Prieto APRN, [facility] [place] Showing recent visits within past 365 days and meeting all other requirements Future Appointments Date Type Provider Dept 01/31/22 Appointment Kishore Prieto APRN, CNP [facility] Showing future appointments within next 90 days and meeting all other requirements Refused Prescriptions Disp Refills rOPINIRole (REQUIP) 1 MG Tablet [Pharmacy Med Name: ROPINIROLE HCL 1 MG TABLET] 90 Tablet 1 Sig: TAKE 1 TABLET BY MOUTH EVERY DAY Antiparkinson Dopaminergics and COMT Protocol Passed - 01/23/2022 10:12 AM Passed - Visit with relevant provider in the past 9 months or upcoming 90 days Recent Visits Date Type Provider Dept 08/01/21 Office Visit Jabier Kwok MD [facility] [place] 04/29/21 Office Visit Jabier Kwok MD [facility] [place] Showing recent visits within past 270 days and meeting all other requirements Future Appointments Date Type Provider Dept 01/31/22 Appointment Kishore Prieto APRN, [facility] [place] Showing future appointments within next 90 days and meeting all other requirements Passed - Blood pressure on record in past 12 months Clinician-entered: BP Readings from Last 3 Encounters: 12/05/21 112/70 09/21/21 140/56 08/01/21 120/66 Patient-entered: No data recorded * Telephone Encounter - Francine Soto RN - 01/24/2022 11:18 AM CDT Images from the original note were not included. rOPINIRole HCl Dispensed Days Supply Quantity Provider Pharmacy ROPINIROLE HCL 1 MG TABLET 12/27/2021 90 90 Each JABIER KWOK [id number]... documented in this encounter Plan of Treatment Upcoming Encounters Date Type Department Care Team (Late st Contact Info) Description 10/17/2024 1:00 PM CDT Procedure Visit [facility] #2 [place] [address] Gloria Martinez MD #[address] [address] documented as of this encounter Visit Diagnoses Diagnosis Cervical radiculopathy Brachial neuritis or radiculitis nos Penile mass- Primary Unspecified disorder of penis documented in this encounter Additional Health Concerns Infection Onset Date Last Indicated Resolved Time COVID - 19 Confirmed 05/31/2022 05/31/2022 023 12:16 AM FOREPART RASPER Respiratory Rule Out - RPA 02/26/2023 02/26/2023 0 02/26/2023 11:31 AM CDT COVID - 19 02/26/2023 02/26/2023 03/08/2023 12:1 6 AM CDT documented as of this encounter Care Teams Windows Migration Technician Relationship Specialty Start Date End Date Jabier Kwok MD #2 [facility] [address] [place] [address] PCP - General Family Medicine 06/22/20 01/16/24 Tad Mcintosh MD [address] [place] [address] PCP - General Family Medicine 01/17/24 Srikanth Adrian MD #2 [facility] [address] [place] [address] Interventional Radiology Tech Cardiovascular Disease - Cardiology 02/02/22 08/06/24 Gloria Martinez MD #2 [facility] [address] [place] [address] Consulting Physician Urology 04/30/24 documented as of this encounter
--- OUTSIDE RECORDS SUMMARY | 2024-10-16 21:27 | XMS_ITS | Encounter Summary ---
Author Organization [facility] Address [address] [place] [address] Phone Care Team Providers Care Technical Clerk Name Role Phone Jabier Peck MD Primary Care Provider [phone] Srikanth Adrian MD Unavailable Tad Romero MD Primary Care Provider [phone] Gloria Martinez MD Unavailable [phone] Reason for Visit * Reason Comments Medication Refill Encounter Details Date Type Department Care Team (Late st Contact Info) Description 04/11/2021 Refill [facility] Medical Group - Family Medicine [facility] #2 [place] [id number] Kishore Prieto, ANALYSIS TESTER, QA LEAD #[address] [address] Medication Refill Social History Tobacco Use Types [...] CDT Gender Identity Male 05/03/2023 12:44 PM GERMINATION TESTING MANAGER Sexual Orientation Lesbian or Wolff 05/03/2023 12 :44 PM GERMINATION TESTING MANAGER COVID-19 Exposure Response Date Recorded In the last month, have you been in contact with someone who was confirmed or suspected to have Coronavirus / COVID-19? No / Unsure 04/14/2021 12:48 PM CDT documented as of this encounter Miscellaneous Notes * Telephone Encounter - Sabina Holly RN - 04/12/2021 12:20 PM CDT Tonny calling in from [facility]. He is requesting to find out the status of the medication refill request for Methocarbamol. Informed him that the medication refill has been pended, but not yet signed. Last filled Methocarbamol for #45 with 1 refill on 03/16/21. Last routine visit: 03/16/21 Labs/testin10/14/20 Upcoming visits: 04/29/21 Refill pending for your review and approval. Please advise Thank you documented in this encounter Plan of Treatment Upcoming Encounters Date Type Department Care Team (Late st Contact Info) Description 10/17/2024 1:00 PM CDT Procedure Visit [facility] #2 [place] [address] Gloria Martinez MD #[id number] [address] documented as of this encounter Visit Diagnoses Diagnosis Cervical radiculopathy Brachial neuritis or radiculitis nos Penile mass- Primary Unspecified disorder of penis documented in this encounter Additional Health Concerns Infection Onset Date Last Indicated Resolved Time COVID - 19 Confirmed 05/31/2022 05/31/2022 023 12:16 AM GERMINATION TESTING MANAGER Respiratory Rule Out - RPA 02/26/2023 02/26/2023 0 02/26/2023 11:31 AM CDT COVID - 19 02/26/2023 02/26/202303/08/2023 12:1 6 AM CDT documented as of this encounter Care Teams Technical Clerk Relationship Specialty Start Date End Date Jabier Peck MD #2 [facility] [address] [place] [address] PCP - General Family Medicine 06/22/20 01/16/24 Tad Mcintosh MD [address] [place] [address] PCP - General Family Medicine 01/17/24 Srikanth Adrian MD #[address] [address] Molecular Genetic Pathologist Cardiovascular Disease - Cardiology 02/02/22 08/06/24 Gloria Martinez MD #[address] [address] Consulting Physician Urology 04/30/24 documented as of this encounter
--- OUTSIDE RECORDS SUMMARY | 2024-10-16 21:27 | XMS_ITS | Encounter Summary ---
Author Organization [facility] Address [address] [place] [address] Phone Care Team Providers Care Drug Safety Specialist Name Role Phone Srikanth Adrian MD Unavailable Tad Romero MD Primary Care Provider [phone] Gloria Martinez MD Unavailable [phone] Reason for Visit * Reason Comments Medication Refill Encounter Details Date Type Department Care Team (Late Contact Info) Description 05/28/2024 Refill [facility] Medical Group - Family Medicine [facility] #2 [place] [address] Jabier Peck MD #[address] [address] Medication Refill Social History Tobacco Use Types [...] CDT Gender Identity Male 05/03/2023 12:44 PM LODGING MANAGER Sexual Orientation Lesbian or Wolff 05/03/2023 12 :44 PM LODGING MANAGER documented as of this encounter Miscellaneous Notes * Telephone Encounter - Francine Soto RN - 05/28/2024 11:10 AM CST PCP: Tad Mcintosh MD ING MANAGER documented in this encounter Plan of Treatment Upcoming Encounters Date Type Department Care Team (Late st Contact Info) Description 10/17/2024 1:00 PM CDT Procedure Visit [facility] #2 [place] [address] Gloria Martinez MD #[id number] [address] documented as of this encounter Visit Diagnoses Not on filedocumented in this encounter Care Teams Drug Safety Specialist Relationship Specialty Start Date End Date Tad Mcintosh MD [address] [place] [address] PCP - General Family Medicine 01/17/24 Srikanth Adrian MD [employer] Certified Network Professional Cardiovascular Disease - Cardiology 02/02/22 08/06/24 Gloria Martinez MD #2 [facility] [address] [place] [address] Consulting Physician Urology 04/30/24 documented as of this encounter
--- OUTSIDE RECORDS SUMMARY | 2024-10-16 21:27 | XMS_ITS | Encounter Summary ---
Author Organization [facility] Address [address] [place] [address] Phone Care Team Providers Care Boiler Coverer Helper Name Role Phone Jabier Peck MD Primary Care Provider [phone] Srikanth Adrian MD Unavailable Tad Romero MD Primary Care Provider [phone] Gloria Martinez MD Unavailable [phone] Reason for Visit * Reason Comments Medication Refill Encounter Details Date Type Department Care Team (Late st Contact Info) Description 07/20/2021 Refill [facility] Medical Group - Family [facility] #2 [place] [address] Jabier Peck MD #[address] [address] Medication Refill Social History Tobacco Use Types [...] CDT Gender Identity Male 05/03/2023 12:44 PM CLINICAL REHAB SPECIALIST Sexual Orientation Lesbian or Wolff 05/03/2023 12 :44 PM CLINICAL REHAB SPECIALIST COVID-19 Exposure Response Date Recorded In the last month, have you been in contact with someone who was confirmed or suspected to have Coronavirus / COVID-19? No / Unsure 07/14/2021 12:17 PM CLINICAL REHAB SPECIALIST documented as of this encounter Miscellaneous Notes * Telephone Encounter - Cristy Arellano RN - 07/20/2021 3:04 PM CST Medication failed the protocol, provider to review and approve the medication order if appropriate. Requested Prescriptions Pending Prescriptions Disp Refills methocarbamol (ROBAXIN) 750 MG Tablet [Pharmacy Med Name: METHOCARBAMOL 750MG TABS] 45 Tablet 1 Sig: TAKE ONE TABLET BY MOUTH THREE TIMES A DAY NEEDED FOR MUSCLE SPASMS Not Delegated - Muscle Relaxants Protocol Failed - 07/20/2021 2:23 PM Failed - This refill cannot be delegated Passed - Visit with relevant provider in past 12 months or upcoming 90 days Recent Visits Date Type Provider Dept 04/29/21 Office Visit Jabier Peck MD [facility] 03/16/21 Office Visit Kishore Prieto APRN, [facility] [place] 11/16/20 Office Visit Kishore Prieto APRN, RICH[facility] [place] 10/20/20 Office Visit Jaiber Peck MD [facility] 08/20/20 Telemedicine Kishore Prieto APRN, [facility] [place] 08/06/20 Telemedicine Kishore Prieto APRN, RICHARD [facility] Showing recent visits within past 365 days and meeting all other requirements Future Appointments Date Type Provider Dept 08/01/21 Appointment Jabier Peck MD [facility] [place] Showing future appointments within next 90 days and meeting all other requirements ICAL REHAB SPECIALIST documented in this encounter Plan of Treatment Upcoming Encounters Date Type Department Care Team (Late st Contact Info) Description 10/17/2024 1:00 PM CDT Procedure Visit [facility] #2 [place] [address] Gloria Martinez MD #2 [facility] [address] [place] [address] documented as of this encounter Visit Diagnoses Diagnosis Cervical radiculopathy Brachial neuritis or radiculitis nos Penile mass- Primary Unspecified disorder of penis documented in this encounter Additional Health Concerns Infection Onset Date Last Indicated Resolved Time COVID - 19 Confirmed 05/31/2022 05/31/2022 023 12:16 AM CLINICAL REHAB SPECIALIST Respiratory Rule Out - RPA 02/26/2023 02/26/2023 0 02/26/2023 11:31 AM CDT COVID - 19 02/26/2023 02/26/2023 03/08/2023 12:1 6 AM CDT documented as of this encounter Care Teams Boiler Coverer Helper Relationship Specialty Start Date End Date Jabier Peck MD #2 [facility] [address] [place] [address] PCP - General Family Medicine 06/22/20 01/16/24 Tad Mcitnosh MD [address] [place] [address] PCP - General Family Medicine 01/17/24 Srikanth Adrian MD #2 [facility] [address] [place] [address] Fish Hatchery Supervisor Cardiovascular Disease - Cardiology 02/02/22 08/06/24 Gloria Martinez MD #2 [facility] [address] [place] [address] Consulting Physician Urology 04/30/24 documented as of this encounter
--- OUTSIDE RECORDS SUMMARY | 2024-10-16 21:27 | XMS_ITS | Encounter Summary ---
Author Organization [facility] Address [address] [place] [address] Phone Care Team Providers Care Financial Analysis Consultant Name Role Phone Jabier Peck MD Primary Care Provider [phone] Srikanth Adrian MD Unavailable Tad Romero MD Primary Care Provider [phone] Gloria Martinez MD Unavailable [phone] Reason for Visit * Reason Comments Medication Refill Encounter Details Date Type Department Care Team (Late st Contact Info) Description 08/01/2023 Refill [facility] #2 [place] [address] Jabier Peck MD #[address] [address] Medication Refill Social History Tobacco Use Types [...] CDT Gender Identity Male 05/03/2023 12:44 PM FRUIT SPRAYER Sexual Orientation Lesbian or Wolff 05/03/2023 12 :44 PM FRUIT SPRAYER documented as of this encounter Miscellaneous Notes * Telephone Encounter - Francine Soto RN - 08/01/2023 9:32 AM CST Medication warning Per nursing clinical judgement, provider to review and approve the medication(s) order(s) if appropriate. Requested Prescriptions Pending Prescriptions Disp Refills fluticasone-salmeterol (ADVAIR) 500-50 MCG/ACT AEROSOL POWDER, BREATH ACTIVATED [Pharmacy Med Name:FLUTICASONE-SALMETEROL 500-50] 60 Each 5 Sig: INHALE 1 PUFF BY MOUTH IN THE MORNING AND AT BEDTIME Inhaled Combinations Protocol Passed - 08/01/2023 2:05 AM Passed - Visit with relevant provider in past 12 months or upcoming 90 days Recent Visits Date Type Provider Dept 05/11/23 Office Visit Piper Toro APRN, [facility] [place] 05/03/23 Office Visit Piper Toro APRN, [facility] [place] 02/26/23 Office Visit Kishore Prieto APRN, CNP [facility] 12/18/22 Telemedicine Jabier Peck MD [facility] 11/30/22 Telemedicine Kishore Prieto APRN, CNP [facility] 08/21/22 Office Visit [facility] Showing recent visits within past 365 days and meeting all other requirements Future Appointments No visits were found meeting these conditions. Showing future appointments within next 90 days and meeting all other requirements Passed - Active short-acting beta agonist prescription T SPRAYER documented in this encounter Plan of Treatment Upcoming Encounters Date Type Department Care Team (Late st Contact Info) Description 10/17/2024 1:00 PM CDT Procedure Visit [facility] #[address] [place] [address] Gloria Martinez MD #2 [facility] [address] [place] [address] documented as of this encounter Visit Diagnoses Not on filedocumented in this encounter Care Teams Financial Analysis Consultant Relationship Specialty Start Date End Date Jabier Peck MD #2 [facility] [address] [place] [address] PCP - General Family Medicine 06/22/20 01/16/24 Tad Mcintosh MD [address] [place] [address] PCP - General Family Medicine 01/17/24 Srikanth Adrian MD #2 [facility] [address] [place] [address] Cryptographic Machine Operator Cardiovascular Disease - Cardiology 02/02/22 08/06/24 Gloria Martinez MD #2 [facility] [address] [place] [address] Consulting Physician Urology 04/30/24 documented as of this encounter
--- OUTSIDE RECORDS SUMMARY | 2024-10-16 21:27 | XMS_ITS | Encounter Summary ---
Author Organization [facility] Address [address] [place] [address] Phone Care Team Providers Care Ferryboat Deckhand Name Role Phone Jabier Peck MD Primary Care Provider [phone] Srikanth Adrian MD Unavailable Tad Romero MD Primary Care Provider [phone] Gloria Martinez MD Unavailable [phone] Reason for Visit * Reason Comments Medication Refill Encounter Details Date Type Department Care Team (Late st Contact Info) Description 12/11/2021 Refill [facility] #2 [place] [address] Jabier Peck MD #[address] [address] Medication Refill Social History Tobacco Use Types [...] CDT Gender Identity Male 05/03/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 No / Unsure 12/05/2021 2:07 PM CDT documented as of this encounter Miscellaneous Notes * Telephone Encounter - Francine Soto RN - 12/12/2021 3:07 PM CDT Medication failed the protocol, provider to review and approve the medication order if appropriate. Requested Prescriptions Pending Prescriptions Disp Refills methocarbamol (ROBAXIN) 750 MG Tablet [Pharmacy Med Name: METHOCARBAMOL 750 MG TABLET] 45 Tablet 1 Sig: TAKE 1 TABLET BY MOUTH THREE TIMES A DAY NEEDED FOR MUSCLE SPASM Not Delegated - Muscle Relaxants Protocol Failed - 12/11/2021 3:06 PM Failed - This refill cannot be delegated Passed - Visit with relevant provider in past 12 months or upcoming 90 days Recent Visits Date Type Provider Dept 08/01/21 Office Visit Jabier Peck MD [facility] [place] 04/29/21 Office Visit Jabier Peck MD [facility] 03/16/21 Office Visit Kishore Prieto APRN, RICHARD [facility] Showing recent visits within past 365 days and meeting all other requirements Future Appointments Date Type Provider Dept 12/13/21 Appointment Kishore Prieto APRN, RICHARD [facility] Showing future appointments within next 90 days and meeting all other requirements documented in this encounter Plan of Treatment Upcoming Encounters Date Type Department Care Team (Late st Contact Info) Description 10/17/2024 1:00 PM CDT Procedure Visit [facility] [place] [address] Gloria Martinez MD #[address] [place] [address] documented as of this encounter Visit Diagnoses Diagnosis Cervical radiculopathy Brachial neuritis or radiculitis nos Penile mass- Primary Unspecified disorder of penis documented in this encounter Additional Health Concerns Infection Onset Date Last Indicated Resolved Time COVID - 19 Confirmed 05/31/2022 05/31/2022 023 12:16 AM ELEVATOR REPAIRER APPRENTICE Respiratory Rule Out - RPA 02/26/2023 02/26/2023 0 02/26/2023 11:31 AM CDT COVID - 19 02/26/2023 02/26/2023 03/08/2023 12:1 6 AM CDT documented as of this encounter Care Teams Ferryboat Deckhand Relationship Specialty Start Date End Date Jabier Peck MD #[address] [facility] [address] [place] [address] PCP - General Family Medicine 06/22/20 01/16/24 Tad Mcintosh MD [address] [place] [address] PCP - General Family Medicine 01/17/24 Srikanth Adrian MD #[address] [facility] [address] [place] [address] Drill Rig Operator Cardiovascular Disease - Cardiology 02/02/22 08/06/24 Gloria Martinez MD #2 [facility] [address] [place] [address] Consulting Physician Urology 04/30/24 documented as of this encounter
--- OUTSIDE RECORDS SUMMARY | 2024-10-16 21:27 | XMS_ITS | Encounter Summary ---
Author Organization [facility] Address [address] [place] [address] Phone Care Team Providers Care Curriculum Coordinator Name Role Phone Srikanth Adrian MD Unavailable Tad Romero MD Primary Care Provider Gloria Martinez MD Unavailable [phone] Reason for Visit * Reason Comments Medication Refill Encounter Details Date Type Department Care Team (Late Contact Info) Description 03/15/2024 Refill [facility] - Family Medicine [facility] #2 [place] [address] Kishore Prieto APRN, AUTOMAT CAR ATTENDANT #[address] [address] Medication Refill Social History Tobacco Use Types [...] Gender Identity Male 05/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 Sexual Orientation Lesbian or Wolff 05/03/2023 12 :44 PM 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 DAIRY documented as of this encounter Miscellaneous Notes * Telephone Encounter - Francine Soto RN - 03/17/2024 12:59 PM CDT PCP Tad Mcintosh MD documented in this encounter Plan of Treatment Upcoming Encounters Date Type Department Care Team (Late st Contact Info) Description 10/17/2024 1:00 PM CDT Procedure Visit [facility] #2 [place] [address] Gloria Martinez MD #[address] [address] documented as of this encounter Visit Diagnoses Not on filedocumented in this encounter Care Teams Curriculum Coordinator Relationship Specialty Start Date End Date Tad Mcintosh MD [address] [place] [address] PCP - General Family Medicine 01/17/24 Srikanth Adrian MD Biomedical Equipment Tech Cardiovascular Disease - Cardiology 02/02/22 08/06/24 Gloria Martinez MD #[address] [facility] [address] [place] [address] Consulting Physician Urology 04/30/24 documented as of this encounter
--- OUTSIDE RECORDS SUMMARY | 2024-10-16 21:27 | XMS_ITS | Encounter Summary ---
Author Organization [facility] Address [address] [place] [address] Phone Care Team Providers Care Spring Crater Name Role Phone Jabier Peck MD Primary Care Provider [phone] Srikanth Adrian MD Unavailable Tad Romero MD Primary Care Provider [phone] Gloria Martinez MD Unavailable [phone] Reason for Visit * Reason Comments Medication Refill Encounter Details Date Type Department Care Team (Late st Contact Info) Description 02/02/2021 Refill [facility] #2 [place] [address] Jabier Peck MD #[address] [address] Medication Refill Social History Tobacco Use Types [...] CDT Gender Identity Male 05/03/2023 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 Requested Prescriptions Pending Prescriptions Disp Refills atorvastatin (LIPITOR) 80 MG Tablet [Pharmacy Med Name: ATORVASTATIN CALCIUM 80MG TABS] 90 Tablet 1 Sig: TAKE ONE TABLET BY MOUTH EVERY DAY Hmg CoA Reductase Inhibitors Protocol Failed - 02/02/2021 2:45 PM Failed - Lipid panel in past 12 months LDL Date Value Ref Range Status 12/15/2019 100 5 - 130 mg/dL Final HDL CHOLESTEROL Date Value Ref Range Status 12/15/2019 41.7 >40 mg/dL Final CHOLESTEROL Date Value Ref Range Status 12/15/2019 215 (H) <=200 mg/dL Final TRIGLYCERIDES Date Value Ref Range Status 12/15/2019 368 (H) <150 mg/dL Final VLDL Date Value Ref Range Status 12/15/2019 74 (H) 5 - 55 mg/dL Final CHOL/HDL RATIO Date Value Ref Range Status 12/15/2019 5.2 (H) 0.0 - 4.4 Final NON-HDL CHOLESTEROL Date Value Ref Range Status 12/15/2019 173.3 (H) <130 mg/dL Final Passed - Visit with relevant provider in past 12 months or upcoming 90 days Recent Visits Date Type Provider Dept 11/16/20 Office Visit Kishore Prieto APN, RICHARD [facility] 10/20/20 Office Visit Jabier Peck MD [facility] 08/20/20 Telemedicine Kishore Prieto APN, RICHARD [facility] 08/06/20 Telemedicine Kishore Prieto APN, RICHARD [facility] 06/22/20 Office Visit Kishore Prieto APN, RICH[facility] Showing recent visits within past 365 days and meeting all other requirements Future Appointments No visits were found meeting these conditions. Showing future appointments within next 90 days and meeting all other requirements documented in this encounter Plan of Treatment Upcoming Encounters Date Type Department Care Team (Late st Contact Info) Description 10/17/2024 1:00 PM CDT Procedure [facility] [place] [address] Gloria Martinez MD #2 [facility] [address] [place] [address] documented as of this encounter Visit Diagnoses Not on filedocumented in this encounter Additional Health Concerns Infection Onset Date Last Indicated Resolved Time COVID - 19 Confirmed 05/31/2022 05/31/2022 023 12:16 AM CHILD NEUROLOGIST Respiratory Rule Out - RPA 02/26/2023 02/26/2023 0 02/26/2023 11:31 AM CDT COVID - 19 02/26/2023 02/26/2023 03/08/2023 12:1 6 AM CDT documented as of this encounter Care Teams Spring Crater Relationship Specialty Start Date End Date Jabier Peck MD #[address] [facility] [address] [place] [address] PCP - General Family Medicine 06/22/20 01/16/24 Tad Mcintosh MD [address] [place] [address] PCP - General Family Medicine 01/17/24 Srikanth Adrian MD #2 [address] [facility] [address] [place] [address] Audit Reviewer Cardiovascular Disease - Cardiology 02/02/22 08/06/24 Gloria Martinez MD #2 [facility] [address] [place] [address] Consulting Physician Urology 04/30/24 documented as of this encounter
--- OUTSIDE RECORDS SUMMARY | 2024-10-16 21:27 | XMS_ITS | Encounter Summary ---
Author Organization [facility] Address [address] [place] [address] [place] [address] Phone Care Team Providers Care Court Orderly Name Role Phone Jabier Peck MD Primary Care Provider [phone] Srikanth Adrian MD Unavailable Tad Romero MD Primary Care Provider [phone] Gloria Martinez MD Unavailable [phone] Reason for Visit * Reason Comments Medication Refill Encounter Details Date Type Department Care Team (Late st Contact Info) Description 04/13/2023 Refill [facility] #2 [place] [address] Jabier Peck MD #[address] [address] Medication Refill Social History Tobacco Use Types [...] CDT Gender Identity Male 05/03/2023 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 Requested Prescriptions Pending Prescriptions Disp Refills methocarbamol (ROBAXIN) 750 MG Tablet [Pharmacy Med Name: METHOCARBAMOL 750MG TABS] 45 Tablet 0 Sig: TAKE ONE TABLET BY MOUTH EVERY DAY NEEDED Not Delegated - Muscle Relaxants Protocol Failed - 04/13/2023 4:26 PM Failed - This refill cannot be delegated Passed - Visit with relevant provider in past 12 months or upcoming 90 days Recent Visits Date Type Provider Dept 02/26/23 Office Visit Kishore Prieto APRN, R[facility] 12/18/22 Telemedicine Jabier Peck MD [facility] 11/30/22 Telemedicine Kishore Prieto APRN, R[facility] 08/21/22 Office Visit Jabier Peck MD [facility] 07/20/22 Office Visit Gerri Rocha MD [facility] 05/03/22 Telemedicine Jabier Peck MD [facility] Showing recent visits within past 365 days and meeting all other requirements Future Appointments Date Type Provider Dept 06/28/23 Appointment Jabier Peck MD [facility] Showing future appointments within next 90 days and meeting all other requirements documented in this encounter Plan of Treatment Upcoming Encounters Date Type Department Care Team (Late st Contact Info) Description 10/17/2024 1:00 PM CDT Procedure Visit [facility] [place] [address] Gloria Martinez MD #[address] [facility] [address] [place] [address] documented as of this encounter Visit Diagnoses Diagnosis Cervical radiculopathy Brachial neuritis or radiculitis nos Penile mass- Primary Unspecified disorder of penis documented in this encounter Care Teams Court Orderly Relationship Specialty Start Date End Date Jabier Peck MD #[address] [facility] [address] [place] [address] PCP - General Family Medicine 06/22/20 01/16/24 Tad Mcintosh MD [address] [place] [address] PCP - General Family Medicine 01/17/24 Srikanth Adrian MD #[address] [facility] [address] [place] [address] Junior Linux Administrator Cardiovascular Disease - Cardiology 02/02/22 08/06/24 Gloria Martinez MD #[address] [facility] [address] [place] [address] Consulting Physician Urology 04/30/24 documented as of this encounter
--- OUTSIDE RECORDS SUMMARY | 2024-10-16 21:27 | XMS_ITS | Encounter Summary ---
Author Organization [facility] Address [address] [place] [address] Phone Care Team Providers Care Personnel Security Assistant Name Role Phone Jabier Peck MD Primary Care Provider [phone] Srikanth Adrian MD Unavailable Tad Romero MD Primary Care Provider [phone] Gloria Martinez MD Unavailable [phone] Reason for Visit * Reason Comments Medication Refill Encounter Details Date Type Department Care Team (Late st Contact Info) Description 02/24/2022 Refill [facility] #2 [place] [address] Jabier Peck MD #[address] [address] Medication Refill Social History Tobacco Use Types [...] CDT Gender Identity Male 05/03/2023 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 No / Unsure 02/24/2022 3:19 PM CDT documented as of this encounter Miscellaneous Notes * Telephone Encounter - Manasa Moseley RN - 02/24/2022 8:38 AM CDT Medication failed the protocol, provider to review and approve the medication order if appropriate. Requested Prescriptions Pending Prescriptions Disp Refills fluticasone (FLONASE) 50 MCG/ACT Suspension [Pharmacy Med Name: FLUTICASONE PROP 50 MCG SPRAY] 16 mL 3 Sig: SPRAY 1-2 SPRAYS IN EACH NOSTRIL EVERY DAY DIRECTED Nasal Steroids Protocol Passed - 02/24/2022 1:53 AM Passed - Visit with relevant provider in past 12 months or upcoming 90 days Recent Visits Date Type Provider Dept 01/31/22 Office Visit Kishore Prieto APRN, RICHARD [facility] 12/13/21 Telemedicine Kishore Prieto APRN, CNP [facility] 08/01/21 Office Visit Jabier Peck MD [facility] 04/29/21 Office Visit Jabier Peck MD [facility] 03/16/21 Office Visit Kishore Prieto APRN, [facility] [place] Showing recent visits within past 365 days and meeting all other requirements Today's Visits Date Type Provider Dept 02/24/22 Appointment Kishore Prieto APRN, RICHARD [facility] Showing today's visits and meeting all other requirements Future Appointments No visits were found meeting these conditions. Showing future appointments within next 90 days and meeting all other requirements documented in this encounter Plan of Treatment Upcoming Encounters Date Type Department Care Team (Late st Contact Info) Description 10/17/2024 1:00 PM CDT Procedure Visit [facility] [place] [address] Gloria Martinez MD #2 [facility] [address] [place] [address] documented as of this encounter Visit Diagnoses Not on filedocumented in this encounter Additional Health Concerns Infection Onset Date Last Indicated Resolved Time COVID - 19 Confirmed 05/31/2022 05/31/2022 023 12:16 AM INDUSTRIAL CHEMICALS SUPERVISOR Respiratory Rule Out - RPA 02/26/2023 02/26/2023 0 02/26/2023 11:31 AM CDT COVID - 19 02/26/2023 02/26/2023 03/08/2023 12:1 6 AM CDT documented as of this encounter Care Teams Personnel Security Assistant Relationship Specialty Start Date End Date Jabier Peck MD #[address] [address] PCP - General Family Medicine 06/22/20 01/16/24 Tad Mcintosh MD [address] [place] [address] PCP - General Family Medicine 01/17/24 Srikanth Adrian MD #[address] [address] Manganese Breaker Cardiovascular Disease - Cardiology 02/02/22 08/06/24 Gloria Martinez MD #2 [facility] [address] [place] [address] Consulting Physician Urology 04/30/24 documented as of this encounter
--- OUTSIDE RECORDS SUMMARY | 2024-10-16 21:27 | XMS_ITS | Clinical Summary ---
Author Organization [facility] Address [address] [place] [address] Care Team Providers Care Summer Child Caregiver Name Role Phone Jabier Peck MD MPH Primary Care Provider [phone] Allergies Active Allergy Reactions Criticality Noted Date Comments Fluticasone Furoate-Vilanterol Shortness of breath High 09/07/2021 Iodine Shortness of breath High 09/07/2021 Per Pt, he had SOB for 30 seconds after receiving contrast at another facility during a contrasted CT exam. ER Dr. Ferguson premedicated pt [address] Chest w/ on 12.13.2019 with 125 mg Solumedrol and 50 mg Benadryl. Patient had no reaction during exam. Ketorolac Tromethamine Other (see comments) 09/07/2021 Unknown Medications omeprazole (PriLOSEC) [address] capsule Take 20 mg by mouth in the morning and 20 mg in the evening. Do not crush or chew. . Active OXcarbazepine (TRILEPTAL) 600 MG tablet Take 600 mg by mouth in the morning and 600 mg in the evening. Active albuterol HFA (PROVENTIL HFA;VENTOLIN HFA) 108 (90 Base) MCG/ACT inhaler Inhale 2 puffs every 4 (four) hours if needed for wheezing Active Needle, Disp, 18G X 1-1/2 misc Use to draw up testosterone. Active metoprolol succinate XL (TOPROL XL) 25 MG 24 hr tablet Take 25 mg by mouth 1 (one) time each day Do not crush or chew. Active montelukast (SINGULAIR) 10 MG tablet Take 10 mg by mouth every night Active Syringe/Needle, Disp, 22G X 1-1/2 1.5 ML misc Use for testosterone injection. Active TRAZODONE HCL PO Take 200 mg by mouth at bed time Active venlafaxine XR (EFFEXOR-XR) 150 MG 24 hr capsule Take 150 mg by mouth 1 (one) time each day Do not crush or chew. Active pseudoephedrine (SUDAFED) 120 MG 12 hr tablet Take 120 mg by mouth in the morning and 120 mg in the evening. Do not crush, chew, or split. . Active Respiratory Therapy Supplies device Acti ve rOPINIRole (REQUIP) 1 MG tablet Take 1 mg by mouth 1 (one) time each day Active methocarbamol (ROBAXIN) 750 MG tablet Take 750 mg by mouth in the morning and 750 mg in the evening and 750 mg before bedtime. Active buPROPion XL (WELLBUTRIN XL) 300 MG 24 hr tablet Take 300 mg by mouth 1 (one) time each day Do not crush, chew, or split. Active apixaban (ELIQUIS) 5 MG tablet Take 5 mg by mouth in the morning and 5 mg in the evening. Active atorvastatin (LIPITOR) 80 MG tablet Take 80 mg by mouth 1 (one) time each day Active ALBUTEROL SULFATE IN Inhale every 4 (four) hours if needed Take by inhalation every 4 hours as needed. Active ARIPiprazole (ABILIFY) 20 MG tablet Take 20 mg by mouth 1 (one) time each day Active aspirin 81 MG chewable tablet Chew 81 mg 1 (one) time each day Active HYDROcodone-lito taminophen (LORCET PLUS) 10-325 MG per tablet Take 1 tablet by mouth every 8 (eight) hours if needed for moderate pain or severe pain Active gabapentin (NEURONTIN) 600 MG tablet Take 600 mg by mouth in the morning and 600 mg in the evening and 600 mg before bedtime. Active fluticasone (FLONASE) 50 MCG/ACT nasal spray Administer 2 sprays into each nostril 1 (one) time each day Active fluticasone-lencho meterol (ADVAIR DISKUS) 500-50 MCG/DOSE diskus inhaler Inhale 1 puff 2 (two) times a day Rinse mouth with water after use to reduce aftertaste and incidence of candidiasis. Do not swallow. Active fosinopril (MONOPRIL) 40 MG tablet Take 40 mg by mouth 1 (one) time each day Active diclofenac (VOLTAREN) 50 MG EC tablet Take 50 mg by mouth in the morning and 50 mg in the evening and 50 mg before bedtime. Do not crush, chew, or split. . Active linaCLOtide (Linzess) 145 MCG capsule Take 145 mg by mouth 1 (one) time each day Active Active Problems No known active problems Family History Medical History Relation Comments Cancer Brother Rheum arthritis Brother COPD Father Cancer Mother Cancer Paternal Grandfather Cancer Sister 1 Heart disease Sister 1 Stroke Sister 2 Relation Status Comments Brother Father Mother Paternal Grandfather Sister 1 Alive Sister 2 Alive Social History Tobacco Use Types Packs/Day Years Used Date Smoking Tobacco: Former Cigarettes 0 09/1986 - 09/2021 Smokeless Tobacco: Never Tobacco Cessation:Counseling Given: Not Answered Alcohol Use Standard Drinks/Week Comments Not Currently 0 (1 standard drink = 0.6 oz pur e alcohol) Sex and Gender Information Value Date Recorded Sex Assigned at Not on file Legal Sex Male 6:10 PM EDT Gender Identity Not on file Sexual Orientation Not on file Last Filed Vital Signs Vital Sign Reading Time Taken Comments Blood Pressure 129/76 01/12/2022 9:57 AM CDT Pulse 75 01/12/2022 9:57 AM CDT Temperature 36.4 C (97.5 F) 01/12/2022 9:57 AM CDT Respiratory Rate - - Oxygen Saturation 95% 01/12/2022 9:57 AM CDT Inhaled Oxygen Concentration - - Weight 116 kg (255 lb 8 oz) 01/12/2022 9:57 AM C DT Height 175.3 cm (5' 9 ) 01/12/2022 9:57 AM CDT Body Mass Index 37.73 01/12/2022 9:57 AM CDT Plan of Treatment Health Maintenance Due Date Last Done Comments Hepatitis B Vaccine (1 of 3 - 19+ 3-dose series) 02/10/1988 Colorectal Cancer Screening: Annual FOBT 2018 Colorectal Cancer Screening: Colonoscopy 2018 Colorectal Cancer Screening: Sigmoidoscopy 2018 Pneumococcal Vaccine: 50+ Ye ars (2 of 2 - PCV) 06/22/2021 06/22/2020 Diabetes: Ophthalmology Exam 09/30/2021 Diabetes: Pedal Pulse Checked 09/30/2021 Diabetes: Sensory Foot Exam 09/30/2021 Diabetes: Visual Foot Exam 09/30/2021 Diabetes: Hemoglobin A1C 05/28/2023 023, 12/30/2021, 12/30/2021, Additional history exists Influenza Vaccine (Season Ended) 2025 02/24/2022, 08/01/2021, 03/31/2020, Additional history exists Pneumococcal Vaccine: Peds ( 0 to 5 Years) and At-Risk Patients (6 to 49 Years) Discontinued 06/22/2020 Procedures Procedure Name Priority Date/Time Associated Diagnosis Comments HEMOGLOBIN A1C Routine 12/30/2021 from Last 3 Months or Most Recently Relevant to Health Maintenance Results * (ABNORMAL) Hemoglobin A1c (12/30/2021) Hemoglobin A1C 7.0(A) 4.0 - 6.0 Blood (Blood, Venous) 12/30/2021 [facility] Provider LAB BLOOD ORDERABLES Becky l Result from Last 3 Months or Most Recently Relevant to Health Maintenance Insurance UHC Medicare Medicaid [place] Care Teams Summer Child Caregiver Relationship Specialty Start Date End Date Jabier Peck MD MPH [address] [address] PCP - General Family Medicine 09/13/21
--- OUTSIDE RECORDS SUMMARY | 2024-10-16 21:27 | XMS_ITS | Encounter Summary ---
Author Organization [facility] Address [address] [place] [address] Phone Care Team Providers Care Operations Supervisor 2Nd Shift Name Role Phone Jabier Peck MD Primary Care Provider [phone] Srikanth Adrian MD Unavailable Tad Romero MD Primary Care Provider [phone] Gloria Martinez MD Unavailable [phone] Reason for Visit * Reason Comments Medication Refill Encounter Details Date Type Department Care Team (Late st Contact Info) Description 03/19/2023 Refill [facility] #2 [place] [address] Jabier Peck MD #[address] [address] Medication Refill Social History Tobacco Use Types [...] CDT Gender Identity Male 05/03/2023 12:44 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 No / Unsure 02/26/2023 10:28 AM CDT documented as of this encounter Miscellaneous Notes * Telephone Encounter - Francine Soto RN - 03/19/2023 4:34 PM CDT Atorvastatin - no protocol guidelines - requires provider review Per nursing clinical judgement, provider to review and approve the medication(s) order(s) if appropriate. Requested Prescriptions Pending Prescriptions Disp Refills omeprazole (PriLOSEC) 20 MG CAPSULE DELAYED RELEASE [Pharmacy Med Name: OMEPRAZOLE DR 20 MG CAPSULE] 180 Capsule 1 Sig: TAKE 1 CAPSULE BY MOUTH TWICE A DAY Proton Pump Inhibitors Protocol Passed - 03/19/2023 12:05 AM Passed - Visit with relevant provider in past 12 months or upcoming 90 days Recent Visits Date Type Provider Dept 02/26/23 Office Visit Kishore Prieto APRN, RICH[facility] 12/18/22 Telemedicine Jabier Peck MD [facility] 11/30/22 Telemedicine Kishore Prieto APRN, RICH[facility] 08/21/22 Office Visit Jabier Peck MD [facility] 07/20/22 Office Visit Gerri Rocha MD [facility] 05/03/22 Telemedicine Jabier Peck MD [facility] [place] Showing recent visits within past 365 days and meeting all other requirements Future Appointments No visits were found meeting these conditions. Showing future appointments within next 90 days and meeting all other requirements atorvastatin (LIPITOR) 80 MG Tablet 90 Tablet 1 Sig: Take 1 Tablet by mouth daily. There is no refill protocol information for this order documented in this encounter Plan of Treatment Upcoming Encounters Date Type Department Care Team (Late st Contact Info) Description 10/17/2024 1:00 PM CDT [facility]2 [place] [address] Gloria Martinez MD #2 [facility] [facility] [address] [place] [address] documented as of this encounter Visit Diagnoses Not on filedocumented in this encounter Care Teams Operations Supervisor 2Nd Shift Relationship Specialty Start Date End Date Jabier Peck MD #2 [facility] [facility] [address] [place] [address] PCP - General Family Medicine 06/22/20 01/16/24 Tad Mcintosh MD [address] [place] [address] PCP - General Family Medicine 01/17/24 Srikanth Adrian MD #2 [facility] [facility] [address] [place] [address] Table Filler Cardiovascular Disease - Cardiology 02/02/22 08/06/24 Gloria Martinez MD #2 [facility] [facility] [address] [place] [address] Consulting Physician Urology 04/30/24 documented as of this encounter
--- OUTSIDE RECORDS SUMMARY | 2024-10-16 21:27 | XMS_ITS | Encounter Summary ---
Author Organization [facility] Address [address] [place] [address] Phone Care Team Providers Care Ground Crewman Aircraft Support Name Role Phone Jabier Peck MD Primary Care Provider [phone] Srikanth Adrian MD Unavailable Tad Romero MD Primary Care Provider [phone] Gloria Martinez MD Unavailable [phone] Reason for Visit * Reason Comments Medication Refill Encounter Details Date Type Department Care Team (Late st Contact Info) Description 05/14/2023 Refill [facility] #2 [place] [address] Jabier Peck MD #[address] [address] Medication Refill Social History Tobacco Use Types [...] CDT Gender Identity Male 05/03/2023 12:44 PM DIRECTOR TELECOMMUNICATIONS Sexual Orientation Lesbian or Wolff 05/03/2023 12 :44 PM DIRECTOR TELECOMMUNICATIONS documented as of this encounter Miscellaneous Notes * Telephone Encounter - Francine Soto RN - 05/15/2023 8:25 AM CST Medication warning Per nursing clinical judgement, provider to review and approve the medication(s) order(s) if appropriate. Requested Prescriptions Pending Prescriptions Disp Refills fluticasone (FLONASE) 50 MCG/ACT Suspension [Pharmacy Med Name: FLUTICASONE PROPIONATE 50 SUSP] 48 g 1 Sig: SPRAY 1-2 SPRAYS INTO EACH NOSTRIL ONCE DAILY DIRECTED Nasal Steroids Protocol Passed - 05/14/2023 1:31 PM Passed - Visit with relevant provider in past 12 months or upcoming 90 days Recent Visits Date Type Provider Dept 05/11/23 Office Visit Piper Toro APRN, [facility] 05/03/23 Office Visit Piper Toro APRN, RICHARD [facility] 02/26/23 Office Visit Kishore Prieto APRN, [facility] 12/18/22 Telemedicine Jabier Peck MD [facility] 11/30/22 Telemedicine Kishore Prieto APRN, RICHARD [facility] 08/21/22 Office Visit Jabier Peck MD [facility] 07/20/22 Office Visit Gerri Rocha MD [facility] Showing recent visits within past 365 days and meeting all other requirements Future Appointments Date Type Provider Dept 06/28/23 Appointment Jabier Peck MD [facility] Showing future appointments within next 90 days and meeting all other requirements CTOR TELECOMMUNICATIONS documented in this encounter Plan of Treatment Upcoming Encounters Date Type Department Care Team (Late st Contact Info) Description 10/17/2024 1:00 PM CDT Procedure Visit [facility] [place] [address] Gloria Martinez MD #[address] [facility] [address] [place] [address] documented as of this encounter Visit Diagnoses Not on filedocumented in this encounter Care Teams Ground Crewman Aircraft Support Relationship Specialty Start Date End Date Jabier Peck MD #2 [address] [facility] [facility] [address] [place] [address] PCP - General Family Medicine 06/22/20 01/16/24 Tad Mcintosh MD [address] [place] [address] PCP - General Family Medicine 01/17/24 Srikanth Adrian MD #2 [facility] [facility] [address] [place] [address] Silk Spooler Cardiovascular Disease - Cardiology 02/02/22 08/06/24 Gloria Martinez MD #[address], [facility] [address] [place] [address] Consulting Physician Urology 04/30/24 documented as of this encounter
--- OUTSIDE RECORDS SUMMARY | 2024-10-16 21:27 | XMS_ITS | Encounter Summary ---
Author Organization [facility] Address [address] [place] [address] Phone Care Team Providers Care Director Of Convention Services Name Role Phone Jabier Peck MD Primary Care Provider [phone] Srikanth Adrian MD Unavailable Tad Romero MD Primary Care Provider [phone] Gloria Martinez MD Unavailable [phone] Reason for Visit * Reason Comments Medication Refill Encounter Details Date Type Department Care Team (Late st Contact Info) Description 10/21/2021 Refill [facility] Family [facility] #2 [place] [address] Jabier Peck MD #[address] [address] Medication Refill Social History Tobacco Use Types [...] CDT Gender Identity Male 05/03/2023 12:44 PM ECONOMIC DEVELOPMENT MANAGER Sexual Orientation Lesbian or Wolff 05/03/2023 12 :44 PM ECONOMIC DEVELOPMENT MANAGER documented as of this encounter Miscellaneous Notes * Telephone Encounter - Francine Soto RN - 10/21/2021 3:47 PM CDT Medication failed the protocol, provider to review and approve the medication order if appropriate. Requested Prescriptions Pending Prescriptions Disp Refills methocarbamol (ROBAXIN) 750 MG Tablet [Pharmacy Med Name: METHOCARBAMOL 750 MG TABLET] 45 Tablet 1 Sig: TAKE 1 TABLET BY MOUTH THREE TIMES A DAY NEEDED FOR MUSCLE SPASM Not Delegated - Muscle Relaxants Protocol Failed - 10/21/2021 3:10 PM Failed - This refill cannot be delegated Passed - Visit with relevant provider in past 12 months or upcoming 90 days Recent Visits Date Type Provider Dept 08/01/21 Office Visit Jabier Peck MD [facility] 04/29/21 Office Visit Jabier Peck MD [facility] 03/16/21 Office Visit Kishore Prieto APRN, RICHARD [facility] 11/16/20 Office Visit Kishore Prieto APRN, RICHARD [facility] Showing recent visits within past 365 days and meeting all other requirements Future Appointments Date Type Provider Dept 10/31/21 Appointment Jabier Peck MD [facility] Showing future appointments within next 90 days and meeting all other requirements documented in this encounter Plan of Treatment Upcoming Encounters Date Type Department Care Team (Late st Contact Info) Description 10/17/2024 1:00 PM CDT Procedure Visit [facility] [place] [address] Gloria Martinez MD #[address], [address] [address] documented as of this encounter Visit Diagnoses Diagnosis Cervical radiculopathy Brachial neuritis or radiculitis nos Penile mass- Primary Unspecified disorder of penis documented in this encounter Additional Health Concerns Infection Onset Date Last Indicated Resolved Time COVID - 19 Confirmed 05/31/2022 05/31/2022 023 12:16 AM ECONOMIC DEVELOPMENT MANAGER Respiratory Rule Out - RPA 02/26/2023 02/26/2023 0 02/26/2023 11:31 AM CDT COVID - 19 02/26/2023 02/26/2023 03/08/2023 12:1 6 AM CDT documented as of this encounter Care Teams Director Of Convention Services Relationship Specialty Start Date End Date Jabier Peck MD #2 [facility] [address] [place] [address] PCP - General Family Medicine 06/22/20 01/16/24 Tad Mcintosh MD [address] [place] [address] PCP - General Family Medicine 01/17/24 Srikanth Adrian MD #2 [facility] [address] [place] [address] Commercial Housekeeper Cardiovascular Disease - Cardiology 02/02/22 08/06/24 Gloria Martinez MD #2 [facility] [address] [place] [address] Consulting Physician Urology 04/30/24 documented as of this encounter
--- OUTSIDE RECORDS SUMMARY | 2024-10-16 21:27 | XMS_ITS | Encounter Summary ---
Author Organization [facility] Address [address] 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 No / Unsure 02/26/2023 10:28 AM CDT documented as of this encounter Miscellaneous Notes * Telephone Encounter - Kinjal Cast - 03/21/2023 9:55 AM CDT RFC: Will was calling today needing his medication refilled. The medications are Please call Will (relationship to patient self) back regarding above referenced patient. Patient's Provider is Jabier Morrison MD . documented in this encounter Plan of Treatment Upcoming Encounters Date Type Department Care Team (Late st Contact Info) Description 10/17/2024 1:00 PM CDT Procedure Visit [facility] #2 [place] [address] Gloria Martinez MD #2 [facility] [address] [place] [address] documented as of this encounter Visit Diagnoses Not on filedocumented in this encounter Care Teams Wood Products Manufacturer Relationship Specialty Start Date End Date Jabier Peck MD #2 [facility] [address] [place] [address] PCP - General Family Medicine 06/22/20 01/16/24 Tad Mcintosh MD [address] [place] [address] PCP - General Family Medicine 01/17/24 Srikanth Adrian MD #[address] [facility] [address] [place] [address] Light Bulb Replacer Cardiovascular Disease - Cardiology 02/02/22 08/06/24 Gloria Martinez MD #[address] [facility] [facility] [address] [place] [address] Consulting Physician Urology 04/30/24 documented as of this encounter
--- OUTSIDE RECORDS SUMMARY | 2024-10-16 21:27 | XMS_ITS | Encounter Summary ---
Author Organization [facility] Address [address] [place] [address] Phone Care Team Providers Care Studio Associate Name Role Phone Jabier Peck MD Primary Care Provider [phone] Srikanth Adrian MD Unavailable Tad Romero MD Primary Care Provider Gloria Martinez MD Unavailable [phone] Reason for Visit * Reason Comments Medication Refill Encounter Details Date Type Department Care Team (Late st Contact Info) Description 11/23/2021 Refill [facility] Family [facility] #2 [place] [address] Jabier Peck MD #[address] [address] Medication Refill Social History Tobacco Use Types [...] CDT Gender Identity Male 05/03/2023 12:44 PM LICENSED MASSAGE THERAPIST Sexual Orientation Lesbian or Wolff 05/03/2023 12 :44 PM LICENSED MASSAGE THERAPIST documented as of this encounter Miscellaneous Notes * Telephone Encounter - Francine Soto RN - 11/24/2021 10:09 AM CDT Medication failed the protocol, provider to review and approve the medication order if appropriate. Requested Prescriptions Pending Prescriptions Disp Refills methocarbamol (ROBAXIN) 750 MG Tablet [Pharmacy Med Name: METHOCARBAMOL 750 MG TABLET] 45 Tablet 1 Sig: TAKE 1 TABLET BY MOUTH THREE TIMES A DAY NEEDED FOR MUSCLE SPASM Not Delegated - Muscle Relaxants Protocol Failed - 11/23/2021 10:17 PM Failed - This refill cannot be delegated Passed - Visit with relevant provider in past 12 months or upcoming 90 days Recent Visits Date Type Provider Dept 08/01/21 Office Visit Jabier Peck MD [facility] [place] 04/29/21 [facility] 03/16/21 Office Visit Kishore Prieto, SHOE REPAIRMAN, CUSTOMER EXPERIENCE ANALYST [facility] Showing recent visits within past 365 days [...] [facility] [place] [address] Gloria Martinez MD #[address] [address] documented as of this encounter Visit Diagnoses Diagnosis Cervical radiculopathy Brachial neuritis or radiculitis nos Penile mass- Primary Unspecified disorder of penis documented in this encounter Additional Health Concerns Infection Onset Date Last Indicated Resolved Time COVID - 19 Confirmed 05/31/2022 05/31/2022 023 12:16 AM LICENSED MASSAGE THERAPIST Respiratory Rule Out - RPA 02/26/2023 02/26/2023 0 02/26/2023 11:31 AM CDT COVID - 19 02/26/2023 02/26/2023 03/08/2023 12:1 6 AM CDT documented as of this encounter Care Teams Studio Associate Relationship Specialty Start Date End Date Jabier Peck MD #2 [facility] [address] [place] [address] PCP - General Family Medicine 06/22/20 01/16/24 Tad Mcintosh MD [address] [place] [address] PCP - General Family Medicine 01/17/24 Srikanth Adrian MD #2 [facility] [address] [place] [address] Law Firm Receptionist Cardiovascular Disease - Cardiology 02/02/22 08/06/24 Gloria Martinez MD #2 [facility] [address] [place] [address] Consulting Physician Urology 04/30/24 documented as of this encounter
--- OUTSIDE RECORDS SUMMARY | 2024-10-16 21:27 | XMS_ITS | Encounter Summary ---
Author Organization [facility] Address [address] [facility] [address] [place] [address] Phone Care Team Providers Care Polymerization Engineer Name Role Phone Jabier Peck MD Primary Care Provider [phone] Srikanth Adrian MD Unavailable Tad Romero MD Primary Care Provider [phone] Gloria Martinez MD Unavailable [phone] Reason for Visit * Reason Comments Medication Refill Encounter Details Date Type Department Care Team (Late st Contact Info) Description 07/22/2021 Refill [facility] [address] [place] [address] Jt Morillo MD [address] [place] [address] Medication Refill Social History Tobacco Use Types [...] CDT Gender Identity Male 05/03/2023 12:44 PM LEVERMAN Sexual Orientation Lesbian or Wolff 05/03/2023 12 :44 PM LEVERMAN COVID-19 Exposure Response Date Recorded In the last month, have you been in contact with someone who was confirmed or suspected to have Coronavirus / COVID-19? No / Unsure 07/14/2021 12:17 PM LEVERMAN documented as of this encounter Miscellaneous Notes * Telephone Encounter - Michelle Wharton RN - 07/22/2021 2:26 PM LEVERMAN Refilled Eliquis RMAN documented in this encounter Plan of Treatment Upcoming Encounters Date Type Department Care Team (Late st Contact Info) Description 10/17/2024 1:00 PM CDT Procedure Visit [facility] #2 [place] [address] Gloria Martinez MD #2 [facility] [address] [place] [address] documented as of this encounter Visit Diagnoses Diagnosis History of thrombophilia associated with MTHFR mutation Penile mass- Primary Unspecified disorder of penis documented in this encounter Additional Health Concerns Infection Onset Date Last Indicated Resolved Time COVID - 19 Confirmed 05/31/2022 05/31/2022 023 12:16 AM LEVERMAN Respiratory Rule Out - RPA 02/26/2023 02/26/2023 0 02/26/2023 11:31 AM CDT COVID - 19 02/26/2023 02/26/2023 03/08/2023 12:1 6 AM CDT documented as of this encounter Care Teams Polymerization Engineer Relationship Specialty Start Date End Date Jabier Peck MD [facility]2 [facility] [address] [place] [address] PCP - General Family Medicine 06/22/20 01/16/24 Tad Mcintosh MD [address] [place] [address] PCP - General Family Medicine 01/17/24 Srikanth Adrian MD #2 [facility] [address] [place] [address] Braille Proofreader Cardiovascular Disease - Cardiology 02/02/22 08/06/24 Gloria Martinez MD #[address] [facility] [address] [place] [address] Consulting Physician Urology 04/30/24 documented as of this encounter
--- OUTSIDE RECORDS SUMMARY | 2024-10-16 21:27 | XMS_ITS | Encounter Summary ---
Author Organization [facility] Address [address] [place] [address] Phone Care Team Providers Care Cath Lab Nurse Name Role Phone Jabier Peck MD Primary Care Provider [phone] Srikanth Adrian MD Unavailable Tad Romero MD Primary Care Provider [phone] Gloria Martinez MD Unavailable [phone] Reason for Visit * Reason Onset Date Comments Medication Refill 10/27/2021 Encounter Details Date Type Department Care Team (Late st Contact Info) Description 10/27/2021 Refill [facility] - Family Medicine [facility] #2 [place] [address] Jabier Peck MD #[address] [address] Medication Refill Social History Tobacco Use Types [...] CDT Gender Identity Male 05/03/2023 12:44 PM DIESEL TRUCK CRANE OPERATOR Sexual Orientation Lesbian or Wolff 05/03/2023 12 :44 PM DIESEL TRUCK CRANE OPERATOR documented as of this encounter Miscellaneous Notes * Telephone Encounter - Francine Soto RN - 10/27/2021 3:28 PM CDT Medication warning\ Per nursing clinical judgement, provider to review and approve the medication(s) order(s) if appropriate. Requested Prescriptions Pending Prescriptions Disp Refills fluticasone (FLONASE) 50 MCG/ACT Suspension 1 g 3 Si-2 Sprays by Nasal route daily. Use in each nostril as directed. Nasal Steroids Protocol Passed - 10/27/2021 1:13 PM Passed - Visit with relevant provider in past 12 months or upcoming 90 days Recent Visits Date Type Provider Dept 08/01/21 Office Visit Jabier Peck MD [facility] 04/29/21 Office Visit Jabier Peck MD [facility] 03/16/21 Office Visit Kishore Prieto APRN, [facility] 11/16/20 Office Visit Kishore Prieto APRN, RICH[facility] Showing recent visits within past 365 days and meeting all other requirements Future Appointments Date Type Provider Dept 10/31/21 Appointment Jabier Peck MD [facility] Showing future appointments within next 90 days and meeting all other requirements * Telephone Encounter - Yadira York - 10/27/2021 1:13 PM CDT Received a faxed Rx request from pharmacy. Reordered refill medication(s) requested and pended for nurse and physician/MARVA review. Refill encounter routed to nurse Diamond's pool for processing. documented in this encounter Plan of Treatment Upcoming Encounters Date Type Department Care Team (Late st Contact Info) Description 10/17/2024 1:00 PM CDT Procedure Visit [facility] #[address] [place] [address] Gloria Martinez MD #[address] [facility] [address] [place] [address] documented as of this encounter Visit Diagnoses Not on filedocumented in this encounter Additional Health Concerns Infection Onset Date Last Indicated Resolved Time COVID - 19 Confirmed 05/31/2022 05/31/2022 023 12:16 AM DIESEL TRUCK CRANE OPERATOR Respiratory Rule Out - RPA 02/26/2023 02/26/2023 0 02/26/2023 11:31 AM CDT COVID - 19 02/26/2023 02/26/2023 03/08/2023 12:1 6 AM CDT documented as of this encounter Care Teams Cath Lab Nurse Relationship Specialty Start Date End Date Jabier Peck MD #[address] [address] PCP - General Family Medicine 06/22/20 01/16/24 Tad Mcintosh MD [address] [place] [address] PCP - General Family Medicine 01/17/24 Srikanth Adrian MD #[address] [facility] [address] [place] [address] Displayer Merchandise Cardiovascular Disease - Cardiology 02/02/22 08/06/24 Gloria Martinez MD #[address] [facility] [address] [place] [address] Consulting Physician Urology 04/30/24 documented as of this encounter
--- OUTSIDE RECORDS SUMMARY | 2024-10-16 21:27 | XMS_ITS | Encounter Summary ---
Author Organization [facility] Address [address] [place] [address] Phone Care Team Providers Care Food Processing Plant Manager Name Role Phone Jabier Peck MD Primary Care Provider [phone] Sirkanth Adrian MD Unavailable Tad Romero MD Primary Care Provider [phone] Gloria Martinez MD Unavailable [phone] Reason for Visit * Reason Comments Medication Refill Encounter Details Date Type Department Care Team (Late st Contact Info) Description 06/16/2021 Refill [facility] [place] [address] Jabier Peck MD #[address] [address] Medication Refill Social History Tobacco Use Types [...] CDT Gender Identity Male 05/03/2023 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 No / Unsure 06/16/2021 1:10 PM FUEL CELL DESIGNER documented as of this encounter Miscellaneous Notes * Telephone Encounter - Mercedes Sheridan RN - 06/16/2021 1:09 PM CST Requested Prescriptions Pending Prescriptions Disp Refills methocarbamol (ROBAXIN) 750 MG Tablet [Pharmacy Med Name: METHOCARBAMOL 750MG TABS] 45 Tablet 1 Sig: TAKE ONE TABLET BY MOUTH THREE TIMES A DAY NEEDED FOR MUSCLE SPASMS Not Delegated - Muscle Relaxants Protocol Failed - 06/16/2021 9:04 AM Failed - This refill cannot be delegated Passed - Visit with relevant provider in past 12 months or upcoming 90 days Recent Visits Date Type Provider Dept 04/29/21 Office Visit Jabier Peck MD [facility] 03/16/21 Office Visit Kishore Prieto APRN, RICHARD [facility] 11/16/20 Office Visit Kishore Prieto APRN, RICHARD [facility] 10/20/20 Office Visit Jabier Peck MD [facility] 08/20/20 Telemedicine Kishore Prieto APRN, RICHARD [facility] 08/06/20 Telemedicine Kishore Prieto APRN, RICHARD [facility] 06/22/20 Office Visit Kishore Prieto APRN, RICHARD [facility] Showing recent visits within past 365 days and meeting all other requirements Future Appointments Date Type Provider Dept 08/01/21 Appointment Jabier Peck MD [facility] Showing future appointments within next 90 days and meeting all other requirements CELL DESIGNER documented in this encounter Plan of Treatment Upcoming Encounters Date Type Department Care Team (Late st Contact Info) Description 10/17/2024 1:00 PM CDT Procedure Visit [facility]2 [place] [address] Gloria Martinez MD #2 [facility] [address] [place] [address] documented as of this encounter Visit Diagnoses Diagnosis Cervical radiculopathy Brachial neuritis or radiculitis nos Penile mass- Primary Unspecified disorder of penis documented in this encounter Additional Health Concerns Infection Onset Date Last Indicated Resolved Time COVID - 19 Confirmed 05/31/2022 05/31/2022 023 12:16 AM FUEL CELL DESIGNER Respiratory Rule Out - RPA 02/26/2023 02/26/2023 0 02/26/2023 11:31 AM CDT COVID - 19 02/26/2023 02/26/2023 03/08/2023 12:1 6 AM CDT documented as of this encounter Care Teams Food Processing Plant Manager Relationship Specialty Start Date End Date Jabier Peck MD [facility]2 [facility] [address] [place] [address] PCP - General Family Medicine 06/22/20 01/16/24 Tad Mcintosh MD [address] [place] [address] PCP - General Family Medicine 01/17/24 Srikanth Adrian MD [facility]2 [facility] [address] [place] [address] Compensation Associate Cardiovascular Disease - Cardiology 02/02/22 08/06/24 Gloria Martinez MD #2 [facility] [address] [place] [address] Consulting Physician Urology 04/30/24 documented as of this encounter
--- OUTSIDE RECORDS SUMMARY | 2024-10-16 21:27 | XMS_ITS | Encounter Summary ---
Author Organization [facility] Address [address] [place] [address] Phone Care Team Providers Care Mosaic Floor Layer Name Role Phone Jabier Peck MD Primary Care Provider [phone] Srikanth Adrian MD Unavailable Tad Romero MD Primary Care Provider [phone] Gloria Martinez MD Unavailable [phone] Reason for Visit * Reason Comments Medication Refill Encounter Details Date Type Department Care Team (Late st Contact Info) Description 02/22/2022 Refill [facility] #2 [place] [address] Jabier Peck MD #[address] [address] Medication Refill Social History Tobacco Use Types [...] Gender Identity Male 05/03/2023 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 No / Unsure 02/24/2022 3:19 PM CDT documented as of this encounter Miscellaneous Notes * Telephone Encounter - Cristine Preston RN - 02/23/2022 9:33 AM CDT Medication failed the protocol, provider to review and approve the medication order if appropriate. Requested Prescriptions Pending Prescriptions Disp Refills methocarbamol (ROBAXIN) 750 MG Tablet [Pharmacy Med Name: METHOCARBAMOL 750 MG TABLET] 45 Tablet 1 Sig: TAKE 1 TABLET BY MOUTH THREE TIMES A DAY NEEDED FOR MUSCLE SPASM Not Delegated - Muscle Relaxants Protocol Failed - 02/22/2022 4:37 PM Failed - This refill cannot be delegated Passed - Visit with relevant provider in past 12 months or upcoming 90 days Recent Visits Date Type Provider Dept 01/31/22 Office Visit Kishore Prieto APRN, RICHARD [facility] 12/13/21 Telemedicine Kishore Prieto APRN, CNP [facility] 08/01/21 Office Visit Jabier Peck MD [facility] 04/29/21 Office Visit Jabier Peck MD [facility] 03/16/21 Office Visit [facility]ish[facility] Pri[facility] APR[facility], [facility] Showing recent visits within past 365 days and meeting all other requirements Future Appointments Date Type Provider Dept 02/24/22 Appointment Kishore Prieto APRN, RICHARD [facility] Showing future appointments within next 90 days and meeting all other requirements documented in this encounter Plan of Treatment Upcoming Encounters Date Type Department Care Team (Late st Contact Info) Description 10/17/2024 1:00 PM CDT Procedure Visit [facility] #2 [place] [address] Gloria Martinez MD #2 [facility] [address] [place] [address] documented as of this encounter Visit Diagnoses Diagnosis Cervical radiculopathy Brachial neuritis or radiculitis nos Penile mass- Primary Unspecified disorder of penis documented in this encounter Additional Health Concerns Infection Onset Date Last Indicated Resolved Time COVID - 19 Confirmed 05/31/2022 05/31/2022 023 12:16 AM MOTOR RUNNER Respiratory Rule Out - RPA 02/26/2023 02/26/2023 0 02/26/2023 11:31 AM CDT COVID - 19 02/26/2023 02/26/2023 03/08/2023 12:1 6 AM CDT documented as of this encounter Care Teams Mosaic Floor Layer Relationship Specialty Start Date End Date Jabier Peck MD #2 [facility] [address] [place] [address] PCP - General Family Medicine 06/22/20 01/16/24 Tad Mcintosh MD [address] [place] [address] PCP - General Family Medicine 01/17/24 Srikanth Adrian MD #2 [facility] [address] [place] [address] Chief Analytics Officer Cardiovascular Disease - Cardiology 02/02/22 08/06/24 Gloria Martinez MD #2 [facility] [address] [place] [address] Consulting Physician Urology 04/30/24 documented as of this encounter
--- OUTSIDE RECORDS SUMMARY | 2024-10-16 21:27 | XMS_ITS | Encounter Summary ---
Author Organization [facility] Address [address] [place] [address] Phone Care Team Providers Care Biofuels Technology Development Manager Name Role Phone Jabier Peck MD Primary Care Provider [phone] Srikanth Adrian MD Unavailable Tad Romero MD Primary Care Provider [phone] Gloria Martinez MD Unavailable [phone] Reason for Visit * Reason Comments Medication Refill Encounter Details Date Type Department Care Team (Late st Contact Info) Description 09/22/2021 Refill [facility] #2 [place] [address] Jabier Peck MD #[address] [address] Medication Refill Social History Tobacco Use Types [...] CDT Gender Identity Male 05/03/2023 12:44 PM MOLDER HAND Sexual Orientation Lesbian or Wolff 05/03/2023 12 :44 PM MOLDER HAND COVID-19 Exposure Response Date Recorded In the last 10 days, have yo u been in contact with someone who was confirmed or suspected to have Coronavirus/COVID-19? No / Unsure 09/17/2021 10:32 PM CDT documented as of this encounter Miscellaneous Notes * Telephone Encounter - Francine Soto RN - 09/22/2021 2:01 PM CDT Medication failed the protocol, provider to review and approve the medication order if appropriate. Requested Prescriptions Pending Prescriptions Disp Refills methocarbamol (ROBAXIN) 750 MG Tablet [Pharmacy Med Name: METHOCARBAMOL 750 MG TABLET] 45 Tablet 1 Sig: TAKE 1 TABLET BY MOUTH 3 TIMES A DAY NEEDED FOR MUSCLE SPASMS Not Delegated - Muscle Relaxants Protocol Failed - 09/22/2021 1:41 PM Failed - This refill cannot be [...] Office Visit Jabier Peck MD [facility] Showing recent visits within past 365 days and meeting all other requirements Future Appointments Date Type Provider Dept 09/27/21 Appointment Kishore Prieto APRN, RICHARD [facility] 10/31/21 Appointment Jabier Peck MD [facility] Showing future appointments within next 90 days and meeting all other requirements documented in this encounter Plan of Treatment Upcoming Encounters Date Type Department Care Team (Late st Contact Info) Description 10/17/2024 1:00 PM CDT Procedure Visit [facility] #[address] [place] [address] Gloria Martinez MD #2 [facility] [address] [place] [address] documented as of this encounter Visit Diagnoses Diagnosis Cervical radiculopathy Brachial neuritis or radiculitis nos Penile mass- Primary Unspecified disorder of penis documented in this encounter Additional Health Concerns Infection Onset Date Last Indicated Resolved Time COVID - 19 Confirmed 05/31/2022 05/31/2022 023 12:16 AM MOLDER HAND Respiratory Rule Out - RPA 02/26/2023 02/26/2023 0 02/26/2023 11:31 AM CDT COVID - 19 02/26/2023 02/26/2023 03/08/2023 12:1 6 AM CDT documented as of this encounter Care Teams Biofuels Technology Development Manager Relationship Specialty Start Date End Date Jabier Peck MD #2 [facility] [address] [place] [address] PCP - General Family Medicine 06/22/20 01/16/24 Tad Mcintosh MD [address] [place] [address] PCP - General Family Medicine 01/17/24 Srikanth Adrian MD #2 [facility] [address] [place] [address] Continuous Weld Pipe Mill Supervisor Cardiovascular Disease - Cardiology 02/02/22 08/06/24 Gloria Martinez MD #2 [facility] [address] [place] [address] Consulting Physician Urology 04/30/24 documented as of this encounter
--- OUTSIDE RECORDS SUMMARY | 2024-10-16 21:28 | XMS_ITS | Encounter Summary ---
Author Organization [facility] Address [address] [place] [address] Phone Care Team Providers Care Operator Engineer Name Role Phone Jabier Peck MD Primary Care Provider [phone] Srikanth Adrian MD Unavailable Tad Romero MD Primary Care Provider [phone] Gloria Martinez MD Unavailable [phone] Reason for Visit * Reason Comments Medication Refill Encounter Details Date Type Department Care Team (Late st Contact Info) Description 05/11/2021 Refill [facility] - Family [facility] #2 [place] [address] Jabier Peck MD #[address] [address] Medication Refill Social History Tobacco Use Types [...] CDT Gender Identity Male 05/03/2023 12:44 PM 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 No / Unsure 05/05/2021 12:33 PM HOE WORKER documented as of this encounter Miscellaneous Notes * Telephone Encounter - Francine Soto RN - 05/13/2021 10:09 AM CST Medication failed the protocol, provider to review and approve the medication order if appropriate. Requested Prescriptions Pending Prescriptions Disp Refills methocarbamol (ROBAXIN) 750 MG Tablet [Pharmacy Med Name: METHOCARBAMOL 750MG TABS] 45 Tablet 1 Sig: TAKE ONE TABLET BY MOUTH THREE TIMES A DAY NEEDED FOR MUSCLE SPASMS Not Delegated - Muscle Relaxants Protocol Failed - 05/11/2021 9:51 AM Failed - This refill cannot be delegated Passed - Visit with relevant provider in past 12 months or upcoming 90 days Recent Visits Date Type Provider Dept 04/29/21 Office Visit Jabier Peck MD [facility] 03/16/21 Office Visit Kishore Prieto APRN, RICHARD [facility] 11/16/20 Office Visit Kishore Prieto APRN, RICHARD [facility] 10/20/20 Office Visit Jabier Peck MD [facility] 08/20/20 Telemedicine Kishore Prieto APRN, RICHARD [facility] 08/06/20 Telemedicine Kishore Prieto APRN, RICHARD [facility] 06/22/20 Office Visit Kishore Prieto APRN, DREDGE OPERATOR SUPERVISOR [facility] Showing recent visits within past 365 days and meeting all other requirements Future Appointments Date Type Provider Dept 08/01/21 Appointment Jabier Peck MD [facility] Showing future appointments within next 90 days and meeting all other requirements WORKER documented in this encounter Plan of Treatment Upcoming Encounters Date Type Department Care Team (Late st Contact Info) Description 10/17/2024 1:00 PM CDT Procedure Visit [facility] #[address] [place] [address] Gloria Martinez MD #2 [facility] [address] [place] [address] documented as of this encounter Visit Diagnoses Diagnosis Cervical radiculopathy Brachial neuritis or radiculitis nos Penile mass- Primary Unspecified disorder of penis documented in this encounter Additional Health Concerns Infection Onset Date Last Indicated Resolved Time COVID - 19 Confirmed 05/31/2022 05/31/2022 023 12:16 AM HOE WORKER Respiratory Rule Out - RPA 02/26/2023 02/26/2023 0 02/26/2023 11:31 AM CDT COVID - 19 02/26/2023 02/26/2023 03/08/2023 12:1 6 AM CDT documented as of this encounter Care Teams Operator Engineer Relationship Specialty Start Date End Date Jabier Peck MD #2 [facility] [address] [place] [address] PCP - General Family Medicine 06/22/20 01/16/24 Tad Mcintosh MD [address] [place] [address] PCP - General Family Medicine 01/17/24 Srikanth Adrian MD #2 [facility] [address] [place] [address] Pearl Maker Cardiovascular Disease - Cardiology 02/02/22 08/06/24 Gloria Martinez MD #2 [facility] [address] [place] [address] Consulting Physician Urology 04/30/24 documented as of this encounter
--- OUTSIDE RECORDS SUMMARY | 2024-10-16 21:28 | XMS_ITS | Encounter Summary ---
Author Organization [facility] Address [address] [place] [address] Phone Care Team Providers Care Returns Clerk Name Role Phone Jabier Peck MD Primary Care Provider [phone] Srikanth Adrian MD Unavailable Tad Romero MD Primary Care Provider [phone] Gloria Martinez MD Unavailable [phone] Reason for Visit * Reason Comments Medication Refill Encounter Details Date Type Department Care Team (Late st Contact Info) Description 07/10/2022 Refill [facility] - Family [facility] #2 [place] [address] Jabier Peck MD #[address] [address] Medication Refill Social History Tobacco Use Types [...] CDT Gender Identity Male 05/03/2023 12:44 PM TUGBOAT PILOT Sexual Orientation Lesbian or Wolff 05/03/2023 12 :44 PM TUGBOAT PILOT documented as of this encounter Miscellaneous Notes * Telephone Encounter - Anjali Hartley RN - 07/10/2022 12:34 PM TUGBOAT PILOT Refill requested too soon. OAT PILOT documented in this encounter Plan of Treatment Upcoming Encounters Date Type Department Care Team (Late st Contact Info) Description 10/17/2024 1:00 PM CDT Procedure Visit [facility] #2 [place] [address] Gloria Martinez MD #2 [facility] [address] [place] [address] documented as of this encounter Visit Diagnoses Not on filedocumented in this encounter Additional Health Concerns Infection Onset Date Last Indicated Resolved Time Respiratory Rule Out - RPA 02/26/2023 02/26/2023 0 02/26/2023 11:31 AM CDT COVID - 19 02/26/2023 02/26/2023 03/08/2023 12:1 6 AM CDT documented as of this encounter Care Teams Returns Clerk Relationship Specialty Start Date End Date Jabier Peck MD #2 [facility] [address] [place] [address] PCP - General Family Medicine 06/22/20 01/16/24 Tad Mcintosh MD [address] [place] [address] PCP - General Family Medicine 01/17/24 Srikanth Adrian MD #2 [facility] [address] [place] [address] Adjunct Professor Of English Cardiovascular Disease - Cardiology 02/02/22 08/06/24 Gloria Martinez MD #2 [place] [address] Consulting Physician Urology 04/30/24 documented as of this encounter
--- OUTSIDE RECORDS SUMMARY | 2024-10-16 21:28 | XMS_ITS | Encounter Summary ---
Author Organization [facility] Address [address] [facility] [place] [address] Phone Care Team Providers Care Fan Engine Engineer Name Role Phone Jabier Peck MD Primary Care Provider [phone] Srikanth Adrian MD Unavailable Tad Romero MD Primary Care Provider [phone] Gloria Martinez MD Unavailable [phone] Reason for Visit * Reason Comments Medication Refill Encounter Details Date Type Department Care Team (Late st Contact Info) Description 05/25/2022 Refill [facility] [address] [place] [id number] Jt Morillo MD [address] [place] [address] Medication Refill Social History Tobacco Use Types [...] CDT Gender Identity Male 05/03/2023 12:44 PM ASSISTANT SUPERINTENDENT FOR CURRICULUM Sexual Orientation Lesbian or Wolff 05/03/2023 12 :44 PM ASSISTANT SUPERINTENDENT FOR CURRICULUM COVID-19 Exposure Response Date Recorded In the last 10 days, have yo u been in contact with someone who was confirmed or suspected to have Coronavirus/COVID-19? No / Unsure 05/10/2022 2:32 PM ASSISTANT SUPERINTENDENT FOR CURRICULUM documented as of this encounter Miscellaneous Notes * Telephone Encounter - Aisha Escamilla, RN - 05/26/2022 11:00 AM CST Approved Eliquis per last f/u note. Pt to be on indefinite AC. STANT SUPERINTENDENT FOR CURRICULUM documented in this encounter Plan of Treatment Upcoming Encounters Date Type Department Care Team (Late st Contact Info) Description 10/17/2024 1:00 PM CDT Procedure Visit [facility] #2 [place] [address] Gloria Martinez MD #2 [facility] [address] [place] [address] documented as of this encounter Visit Diagnoses Diagnosis History of thrombophilia associated with MTHFR mutation Penile mass- Primary Unspecified disorder of penis documented in this encounter Additional Health Concerns Infection Onset Date Last Indicated Resolved Time COVID - 19 Confirmed 05/31/2022 05/31/2022 023 12:16 AM ASSISTANT SUPERINTENDENT FOR CURRICULUM Respiratory Rule Out - RPA 02/26/2023 02/26/2023 0 02/26/2023 11:31 AM CDT COVID - 19 02/26/2023 02/26/2023 03/08/2023 12:1 6 AM CDT documented as of this encounter Care Teams Fan Engine Engineer Relationship Specialty Start Date End Date Jabier Peck MD #2 [facility] [address] [place] [address] PCP - General Family Medicine 06/22/20 01/16/24 Tad Mcintosh MD [address] [place] [address] PCP - General Family Medicine 01/17/24 Srikanth Adrian MD #2 [facility] [address] [place] [address] Export Traffic Department Manager Cardiovascular Disease - Cardiology 02/02/22 08/06/24 Gloria Martinez MD [facility]2 [facility] [address] [place] [address] Consulting Physician Urology 04/30/24 documented as of this encounter
--- OUTSIDE RECORDS SUMMARY | 2024-10-16 21:28 | XMS_ITS | Encounter Summary ---
Author Organization [facility] Address [address] [place] [address] Phone Care Team Providers Care Service Rig Operator Name Role Phone Jabier Peck MD Primary Care Provider [phone] Srikanth Adrian MD Unavailable Tad Romero MD Primary Care Provider [phone] Gloria Martinez MD Unavailable [phone] Reason for Visit * Reason Comments Medication Refill Encounter Details Date Type Department Care Team (Late st Contact Info) Description 10/24/2022 Refill [facility] #2 [place] [address] Jabier Peck MD #[address] [address] Medication Refill Social History Tobacco Use Types [...] CDT Gender Identity Male 05/03/2023 12:44 PM FOOD PROCESSING PLANT MANAGER Sexual Orientation Lesbian or Wolff 05/03/2023 12 :44 PM FOOD PROCESSING PLANT MANAGER documented as of this encounter Miscellaneous Notes * Telephone Encounter - Francine Soto RN - 10/24/2022 1:28 PM CDT Medication warning Per nursing clinical judgement, provider to review and approve the medication(s) order(s) if appropriate. Requested Prescriptions Pending Prescriptions Disp Refills fluticasone (FLONASE) 50 MCG/ACT Suspension [Pharmacy Med Name: FLUTICASONE PROP 50 MCG SPRAY] 16 mL 3 Sig: SPRAY 1-2 SPRAYS INTO EACH NOSTRIL EVERY DAY DIRECTED Nasal Steroids Protocol Passed - 10/24/2022 12:01 AM Passed - Visit with relevant provider in past 12 months or upcoming 90 days Recent Visits Date Type Provider Dept 08/21/22 Office Visit Jabier Peck MD [facility] 07/20/22 Office Visit Gerri Rocha MD [facility] 05/03/22 Telemedicine Jabier Peck MD [facility] 03/03/22 Office Visit Jabier Peck MD [facility] 02/24/22 Office Visit Kishore Prieto APRN, RICHARD [facility] 01/31/22 Office Visit Kishore Prieto APRN, RICHADR [facility] 12/13/21 Telemedicine Kishore Prieto APRN, RICHARD [facility] Showing recent visits within past 365 days and meeting all other requirements Future Appointments Date Type Provider Dept 11/21/22 Appointment Jabier Peck MD [facility] Showing future appointments within next 90 days and meeting all other requirements documented in this encounter Plan of Treatment Upcoming Encounters Date Type Department Care Team (Late st Contact Info) Description 10/17/2024 1:00 PM CDT Procedure Visit [facility] #2 [place] [id number] Gloria Martinez MD #2 [facility] [address] [place] [address] documented as of this encounter Visit Diagnoses Not on filedocumented in this encounter Additional Health Concerns Infection Onset Date Last Indicated Resolved Time Respiratory Rule Out - RPA 02/26/2023 02/26/2023 0 02/26/2023 11:31 AM CDT COVID - 19 02/26/2023 02/26/2023 03/08/2023 12:1 6 AM CDT documented as of this encounter Care Teams Service Rig Operator Relationship Specialty Start Date End Date Jabier Peck MD #2 [facility] [address] [place] [address] PCP - General Family Medicine 06/22/20 01/16/24 Tad Mcintosh MD [address] [place] [address] PCP - General Family Medicine 01/17/24 Srikanth Adrian MD #2 [facility] [address] [place] [address] Cementer Machine Joiner Cardiovascular Disease - Cardiology 02/02/22 08/06/24 Gloria Martinez MD #2 [facility] [address] [place] [address] Consulting Physician Urology 04/30/24 documented as of this encounter
--- OUTSIDE RECORDS SUMMARY | 2024-10-16 21:28 | XMS_ITS | Encounter Summary ---
Author Organization [facility] Address [address] [place] [address] Phone Care Team Providers Care Senior Counsel Commercial Name Role Phone Jabier Peck MD Primary Care Provider + [phone] Srikanth Adrian MD Unavailable Tad Romero MD Primary Care Provider [phone] Gloria Martinez MD Unavailable [phone] Reason for Visit * Reason Comments Medication Refill Encounter Details Date Type Department Care Team (Late st Contact Info) Description 03/24/2022 Refill [facility] - Family [facility] [address] [place] [address] Kishore Prieto, ABLE BODIED TANKERMAN, CORK INSULATION SETTER #[address] [address] Medication Refill Social History Tobacco Use Types [...] CDT Gender Identity 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 No / Unsure 03/03/2022 10:34 AM CDT documented as of this encounter Miscellaneous Notes * Telephone Encounter - Francine Soto RN - 03/24/2022 3:04 PM CDT Medication failed the protocol, provider to review and approve the medication order if appropriate. Requested Prescriptions Pending Prescriptions Disp Refills gabapentin (NEURONTIN) 600 MG Tablet [Pharmacy Med Name: GABAPENTIN 600 MG TABLET] 90 Tablet 5 Sig: TAKE 1 TABLET BY MOUTH 3 TIMES A DAY Not Delegated - Anticonvulsants Excluding Benzodiazepines Protocol Failed - 03/24/2022 1:28 PM Failed - This refill cannot be delegated Passed - Visit with relevant provider in past 12 months or upcoming 90 days Recent Visits Date Type Provider Dept 03/03/22 Office Visit Jabier Peck MD [facility] 02/24/22 Office Visit Kishore Prieto APRN, [facility] 01/31/22 Office Visit Kishore Prieto APRN, [facility] 12/13/21 Telemedicine Kishore Prieto APRN, [facility] 08/01/21 Office Visit Jabier Peck MD [facility] 04/29/21 Office Visit Jabier Peck MD [facility] Showing recent visits within past 365 days and meeting all other requirements Future Appointments Date Type Provider Dept 05/03/22 Appointment Jabier Peck MD [facility] Showing future appointments within next 90 days and meeting all other requirements documented in this encounter Plan of Treatment Upcoming Encounters Date Type Department Care Team (Late st Contact Info) Description 10/17/2024 1:00 PM CDT Procedure Visit [facility] [address] [place] [address] Gloria Martinez MD [address] [facility] [address] [place] [address] documented as of this encounter Visit Diagnoses Diagnosis Cervical radiculopathy Brachial neuritis or radiculitis nos Lumbar radiculopathy Thoracic or lumbosacral neuritis or radiculitis, unspecified Penile mass- Primary Unspecified disorder of penis documented in this encounter Additional Health Concerns Infection Onset Date Last Indicated Resolved Time COVID - 19 Confirmed 05/31/2022 05/31/2022 023 12:16 AM 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 Respiratory Rule Out - RPA 02/26/2023 02/26/2023 0 02/26/2023 11:31 AM CDT COVID - 19 02/26/2023 02/26/2023 03/08/2023 12:1 6 AM CDT documented as of this encounter Care Teams Senior Counsel Commercial Relationship Specialty Start Date End Date Jabier Peck MD [address] [address] PCP - General Family Medicine 06/22/20 01/16/24 Tad Mcintosh MD [address] [place] [address] PCP - General Family Medicine 01/17/24 Srikanth Adrian MD #[address] [facility] [facility] [address] [place] [address] Filter Changing Technician Cardiovascular Disease - Cardiology 02/02/22 08/06/24 Gloria Martinez MD [address] [facility] [address] [place] [address] Consulting Physician Urology 04/30/24 documented as of this encounter
--- OUTSIDE RECORDS SUMMARY | 2024-10-16 21:28 | XMS_ITS | Encounter Summary ---
Author Organization [facility] Address [address] [place] [address] Phone Care Team Providers Care Compo Caster Name Role Phone Jabier Peck MD Primary Care Provider [phone] Srikanth Adrian MD Unavailable Tad Romero MD Primary Care Provider [phone] Gloria Martinez MD Unavailable [phone] Reason for Visit * Reason Comments Medication Refill Encounter Details Date Type Department Care Team (Late st Contact Info) Description 06/12/2022 Refill [facility] - Family [facility] [address] [place] [address] Jabier Peck MD #[address] [address] Medication Refill Social History Tobacco Use Types [...] CDT Gender Identity Male 05/03/2023 12:44 PM RN POSTPARTUM Sexual Orientation Lesbian or Wolff 05/03/2023 12 :44 PM RN POSTPARTUM COVID-19 Exposure Response Date Recorded In the last 10 days, have yo u been in contact with someone who was confirmed or suspected to have Coronavirus/COVID-19? Yes 05/31/2022 2:12 PM RN POSTPARTUM documented as of this encounter Miscellaneous Notes * Telephone Encounter - Anjali Hartley RN - 06/13/2022 11:16 AM RN POSTPARTUM Medication warning. Per nursing clinical judgement, provider to review and approve the medication(s) order(s) if appropriate. Requested Prescriptions Pending Prescriptions Disp Refills fluticasone (FLONASE) 50 MCG/ACT Suspension [Pharmacy Med Name: FLUTICASONE PROP 50 MCG SPRAY] 16 mL 3 Sig: SPRAY 1-2 SPRAYS IN EACH NOSTRIL EVERY DAY DIRECTED Nasal Steroids Protocol Passed - 06/12/2022 2:59 PM Passed - Visit with relevant provider in past 12 months or upcoming 90 days Recent Visits Date Type Provider Dept 05/03/22 Telemedicine Jabier Peck MD [facility] 03/03/22 Office Visit Jabier Peck MD [facility] 02/24/22 Office Visit Kishore Prieto APRN, [facility] 01/31/22 Office Visit Kishore Prieto APRN, [facility] 12/13/21 Telemedicine Kishore Prieto APRN, [facility] 08/01/21 Office Visit Jabier Peck MD [facility] Showing recent visits within past 365 days and meeting all other requirements Future Appointments Date Type Provider Dept 06/14/22 Appointment Kishore Prieto APRN, [facility] Showing future appointments within next 90 days and meeting all other requirements POSTPARTUM documented in this encounter Plan of Treatment Upcoming Encounters Date Type Department Care Team (Late st Contact Info) Description 10/17/2024 1:00 PM CDT Procedure Visit [facility] [address] [place] [address] Gloria Martinez MD [address] [facility] [address] [place] [address] documented as of this encounter Visit Diagnoses Not on filedocumented in this encounter Additional Health Concerns Infection Onset Date Last Indicated Resolved Time COVID - 19 Confirmed 05/31/2022 05/31/2022 023 12:16 AM RN POSTPARTUM Respiratory Rule Out - RPA 02/26/2023 02/26/2023 0 02/26/2023 11:31 AM CDT COVID - 19 02/26/2023 02/26/2023 03/08/2023 12:1 6 AM CDT documented as of this encounter Care Teams Compo Caster Relationship Specialty Start Date End Date Jabier Peck MD [address] [address] PCP - General Family Medicine 06/22/20 01/16/24 Tad Mcintosh MD [address] [place] [address] PCP - General Family Medicine 01/17/24 Srikanth Adrian MD #[address] [address] Credit Administrator Cardiovascular Disease - Cardiology 02/02/22 08/06/24 Gloria Martinez MD [address] [facility] [address] [place] [address] Consulting Physician Urology 04/30/24 documented as of this encounter
--- OUTSIDE RECORDS SUMMARY | 2024-10-16 21:28 | XMS_ITS | Encounter Summary ---
Author Organization [facility] Address [address] [place] [address] Phone Care Team Providers Care Forensic Psychologist Name Role Phone Jabier Peck MD Primary Care Provider [phone] Srikanth Adrian MD Unavailable Tad Romero MD Primary Care Provider [phone] Gloria Martinez MD Unavailable [phone] Encounter Details Date Type Department Care Team (Late st Contact Info) Description 01/04/2023 Telephone [facility] 3 Surge Waiver [address] [place] [address] Jabier Peck MD #[address] [address] Social History Tobacco Use Types Packs/Day Years [...] CDT Gender Identity Male 05/03/2023 12:44 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 documented in this encounter Plan of Treatment Upcoming Encounters Date Type Department Care Team (Late st Contact Info) Description 10/17/2024 1:00 PM CDT Procedure Visit [facility] [place] [address] Gloria Martinez MD #2 [facility] [address] [place] [address] documented as of this encounter Visit Diagnoses Not on filedocumented in this encounter Additional Health Concerns Infection Onset Date Last Indicated Resolved Time Respiratory Rule Out - RPA 02/26/2023 02/26/2023 0 02/26/2023 11:31 AM CDT COVID - 19 02/26/2023 02/26/2023 03/08/2023 12:1 6 AM CDT documented as of this encounter Care Teams Forensic Psychologist Relationship Specialty Start Date End Date Jabier Peck MD #2 [facility] [address] [place] [address] PCP - General Family Medicine 06/22/20 01/16/24 Tad Mcintosh MD [address] [place] [address] PCP - General Family Medicine 01/17/24 Srikanth Adrian MD #2 [facility] [address] [place] [address] Rn Production Cardiovascular Disease - Cardiology 02/02/22 08/06/24 Gloria Martinez MD #[address] [address] Consulting Physician Urology 04/30/24 documented as of this encounter
--- OUTSIDE RECORDS SUMMARY | 2024-10-16 21:28 | XMS_ITS | Referral Summary ---
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 ER Dr. Ferguson premedicated pt [address] Chest w/ on 12.13.2019 with 125 mg Solumedrol and 50 mg Benadryl. Patient had no reaction during exam. Iodinated Contrast Media Anaphylaxis High 08/15/2019 Ketorolac Tromethamine Other (See comments),Unknown Low 02/08/2021 Unknown Medications venlafaxine XR (EFFEXOR-XR) 150 mg 24 hr capsule Take 1 capsule (150 mg total) by mouth daily Active blood-glucose meter kit One Touch ultra meter Test blood sugars four times every day [id number] insulin dependent 1 each 8 Active blood glucose diagnostic (ONETOUCH ULTRA TEST) strip 100 each by other route as directed. USE TO TEST FOUR TIMES DAILY 300 each 9 Active lancets misc USE TO TEST FOUR TIMES DAIILY 300 each 9 Active ARIPiprazole (ABILIFY) 20 mg tablet Take by mouth nightly 9 Active VENTOLIN HFA 90 mcg/actuation inhaler INHALE TWO PUFFS BY MOUTH EVERY 4 HOURS NEEDED FOR WHEEZING 18 g 2 9 Active traZODone (DESYREL) 100 mg tablet Take 1 tablet (100 mg total) by mouth nightly Active aspirin 81 mg chewable tablet Take 1 tablet (81 mg total) by mouth daily Active apixaban (ELIQUIS) 5 mg tablet 1 tablet (5 mg total) 2 (two) times a day Active metoprolol XL (TOPROL-XL) 25 mg extended release tablet Take 1 tablet (25 mg total) by mouth daily 90 tablet 3 0 Active montelukast (SINGULAIR) 10 mg tablet Take 1 tablet (10 mg total) by mouth nightly 90 tablet 2 0 Active gabapentin (NEURONTIN) 600 mg tabletIndications: Neuropathy Take 1 tablet (600 mg total) by mouth 4 (four) times a day 120 tablet 0 Active rOPINIRole (REQUIP) 2 mg tablet Take 1 tablet (2 mg total) by mouth nightly 180 tablet 3 0 Active atorvastatin (LIPITOR) 80 mg tabletIndications: Mixed hyperlipidemia Take 1 tablet (80 mg total) by mouth nightly 90 tablet 1 0 Active buPROPion XL (WELLBUTRIN XL) 300 mg 24 hr tablet Take 1 tablet once daily 0 Active Linzess 145 mcg capsule Take 1 capsule (145 mcg total) by mouth daily 30 capsule 0 Active fosinopriL (MONOPRIL) 40 mg tabletIndications: Essential hypertension Take 1 tablet (40 mg total) by mouth daily 30 tablet 0 Active methocarbamoL (ROBAXIN) 750 mg tablet Take 1 tablet (750 mg total) by mouth 3 (three) times a day as needed 2 Active Wixela Inhub 500-50 mcg/dose diskus inhaler TAKE 1 PUFF BY INHALATION IN THE MORNING AND AT BEDTIME. 3 Active fluticasone propionate (FLONASE) 50 mcg/actuation nasal spray SPRAY 1-2 SPRAYS INTO EACH NOSTRIL EVERY DAY DIRECTED 3 Active naloxone (NARCAN) 4 mg/actuation spray,non-aerosol 2 Active cetirizine (ZyrTEC) 10 mg tablet Take 1 tablet (10 mg total) by mouth daily Active pseudoephedrine ER (SUDAFED) 120 mg 12 hr tablet Take 1 tablet (120 mg total) by mouth as needed Active hydrOXYzine (VISTARIL) 25 mg capsule Take 1 capsule (25 mg total) by mouth 3 (three) times a day as needed 3 Active ARIPiprazole (ABILIFY) 5 mg tablet Take 1 tablet (5 mg total) by mouth every evening 4 Active OXcarbazepine (TRILEPTAL) 600 mg tablet Take 1 tablet (600 mg total) by mouth 2 (two) times a day 4 Active Xtampza ER 9 mg capsule,sprinkle,E R 12hr tmprr TAKE 1 CAPSULE EVERY 12 HOURS BY MOUTH WITH FOOD 4 Active torsemide (DEMADEX) 20 mg tablet Take 1 tablet (20 mg total) by mouth every morning 4 Active omeprazole (PriLOSEC) 20 mg capsule Take 1 capsule (20 mg total) by mouth 2 (two) times a day Active HYDROcodone-acetam inophen (NORCO) 10-325 mg per tabletIndications: Pain Take 1 tablet by mouth every 6 (six) hours as needed for pain for up to 10 doses 10 tablet 5 Active Active Problems Problem Noted Date Diagnosed Date Keratosis 07/17/2024 Assessment & Plan (07/17/2024 1:09 PM UTILITY AIRCREWMAN): Continue increased hydration Avoid acidic foods and fluids for one more week Thrombophilia 01/25/2023 Palpitations 11/22/2022 Chest pain 07/31/2022 Essential hypertension 07/31/2022 Tongue lesion 04/28/2020 Assessment & Plan (06/26/2024 9:29 AM UTILITY AIRCREWMAN): Has pain medication prescribed by Manasa Cortes at [facility] will confirm use of [place] after surgery Stop Eliquis for 5 days before and after Excision of left lateral and right lateral tongue lesions with repair Risks and complications: Anesthesia, bleeding, infection, benign versus malignant pathology, recurrence of lesion, injury to arteries, nerves and veins, scarring and need for further treatment Assessment & Plan (04/28/2020 1:41 PM UTILITY AIRCREWMAN): Speak to [facility] about smoothing out right first molar of the mandible Agree with Oral surgery referral Start Peridex after meals and before bedtime Softer diet Follow up in 3 months after dental extractions complete, will biopsy tongue if lesions remain Extra fluids, avoid acidic foods and fluids Traumatic ulceration of tongue 04/28/2020 Overview (04/28/2020): Magic mouthwash sent int Referral to ENT placed, appt next week Assessment & Plan (04/28/2020 1:41 PM UTILITY AIRCREWMAN): Speak to [facility] about smoothing out right first molar of the mandible Agree with Oral surgery referral Start Peridex after meals and before bedtime Softer diet Follow up in 3 months after dental extractions complete, will biopsy tongue if lesions remain Extra fluids, avoid acidic foods and fluids History of amputation of right great toe 020 Overview (10/16/2019): August 2019 Assessment & Plan (10/16/2019 11:36 AM CDT): Pt using lidocaine cream at base of amputation for pain. Tobacco abuse 10/16/2019 Assessment & Plan (10/16/2019 11:39 AM CDT): Discussed smoking cessation with patient; patient wanting to quit smoking; discussed using calendar method; cutting back by 1-2 cigarettes every 3 days until no longer smoking; discussed breaking habits; discussed moving furniture in house, removing all smoking related items from home; no smoking in home or car; wash nixon, steam clean carpet, wash curtains/blinds; febreeze fabric that cannot be laundered; enlist help from family and friends, let them know you are trying to quit smoking so they can encourage you. Pt started smoking 2ppd in the last 3 wks. States he has been bored at home so started smoking again. States his dad of emphysema and he knows he needs to stop again. Opiate addiction 10/02/2019 Assessment & Plan (10/09/2019 3:46 PM CDT): drug addiction Pt would like referral to come off of percocet. He has been on them since foot surgery in Apr 2019 Pt tried to come off of medication by cold turkey and he became diaphoretic, fatigue, nightmares, mood swings, tingling. To resolve symptoms he started back on the medication and they symptoms went away. He then tried to cut down to one tablet daily and had the same symptoms. He notes he needs help to come off of the medication. Referred pt to pain management said they dont do opiate withdrawals. Pt is currently on percocet 5/325mg 1 tablet twice daily Pt is wanting naltrexone. He has been on the naltrexone previously and it keeps him from wanting the opioids. He wants to only do a program that can be done over the phone as his partner is ill and cannot take a chance getting COVID-19 and bringing it home Today is the last day of medication he has no medication. He had told his foot doctor he wanted to come off the medication so he will not refill it. Sent message to Dr. Singh. Dr. Singh will give refill of percocet and we will refer pt to suboxone clinic. 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 Aria Quick Tinnitus of both ears 11/05/2018 Rectus diastasis 08/08/2018 Periumbilical hernia 06/04/2018 Numbness and tingling of upp er and lower extremities of both sides 11/09/2017 Assessment & Plan (12/25/2019 1:54 PM CDT): Patient has appointment with Dr. Sen (neurologist [facility]) in February. We will refill the Gabapentin until your appointment. Assessment & Plan (11/09/2017 1:22 PM CDT): Pt. On Gabapentin - not helping - stop gabapentin and start on Lyrica 75 mg oral BID - BS well controlled Attention deficit hyperactivity disorder (ADHD) 11/09/2017 Assessment & Plan (11/09/2017 1:23 PM CDT): Pt. Working on finding a new psychiatrist Ran out of meds Refilled only for one month , for future refills - pt. Needs to see psychiatrist Vitamin D deficiency 10/03/2017 Stage 3 chronic kidney disease 09/25/2017 Assessment & Plan (11/09/2017 1:19 PM CDT): Follows with Dr. Darwin MIRELES Assessment & Plan (09/25/2017 5:55 AM CDT): Chronic. Creatinine 1.66 on 08/02/2017. Coarse tremors 09/25/2017 Assessment & Plan (09/25/2017 5:54 AM CDT): With associated weakness, ataxia and memory deficits. Highly suspicion lithium toxicity especially given patient's CKD 3. [place] level is in process. Will hold at this time. Patient's other psychiatric medications can also have similar side effects. If lithium level is normal consider holding his other medications. Neurology has been consulted will await their recommendations. Continue with fall precautions. Class 1 obesity due to exces s calories with serious comorbidity and body mass index (BMI) of 34.0 to 34.9 in adult 08/02/2017 Assessment & Plan (10/09/2019 3:41 PM CDT): Healthy, low carbohydrate lifestyle and exercise for 150min/week recommended Assessment & Plan (09/24/2019 2:00 PM CDT): Healthy, low carbohydrate lifestyle and exercise for 150min/week recommended Assessment & Plan (07/08/2019 3:43 PM UTILITY AIRCREWMAN): Healthy, low carbohydrate lifestyle and exercise for 150min/week recommended Hyperparathyroidism 03/20/2017 Assessment & Plan (11/09/2017 10:50 AM CDT): s/p Right inferior parathyroidectomy - 08/10/2016 pre op PTH intact - 172 intra op PTH - 87 surgical pathology showed - PARATHYROID, RIGHT INFERIOR, PARATHYROIDECTOMY: - HYPERCELLULAR PARATHYROID TISSUE CONSISTENT WITH PARATHYROID ADENOMA. 08/02/2017 - PTH intact - 75 CKD - stage 3 , cr. 1.66, egfr - 48 Vitamin D 25 ( Oh) - 39 Serum calcium - 9.5 - recent labs - 10/2017 - PTH intact - 47 , cr. - 1.5, egfr - 54 Serum calcium - 9.7 - encourage good oral hydration Assessment & Plan (08/10/2017 1:23 PM UTILITY AIRCREWMAN): s/p Right inferior parathyroidectomy - 08/10/2016 pre op PTH intact - 172 intra op PTH - 87 surgical pathology showed - PARATHYROID, RIGHT INFERIOR, PARATHYROIDECTOMY: - HYPERCELLULAR PARATHYROID TISSUE CONSISTENT WITH PARATHYROID ADENOMA. - recently check labs 08/02/2017 - PTH intact - 75 CKD - stage 3 , cr. 1.66, egfr - 48 Vitamin D 25 ( Oh) - 39 Serum calcium - 9.5 - possible secondary hyperparathyroidism - due to CKD stage 2-3 - advised to stop invokana - encourage good oral hydration - recheck renal function and serum calcium -if needed will refer to renal Assessment & Plan (05/01/2017 10:36 PM UTILITY AIRCREWMAN): s/p Right inferior parathyroidectomy - 08/10/2016 pre op PTH intact - 172 intra op PTH - 87 surgical pathology showed - PARATHYROID, RIGHT INFERIOR, PARATHYROIDECTOMY: - HYPERCELLULAR PARATHYROID TISSUE CONSISTENT WITH PARATHYROID ADENOMA. - pt. Did not get labs ordered during last visit - reordered blood work, advise to get it done [place] Assessment & Plan (03/20/2017 10:18 AM CDT): s/p Right inferior parathyroidectomy - 08/10/2016 pre op PTH intact - 172 intra op PTH - 87 surgical pathology showed - PARATHYROID, RIGHT INFERIOR, PARATHYROIDECTOMY: - HYPERCELLULAR PARATHYROID TISSUE CONSISTENT WITH PARATHYROID ADENOMA. - pt. Did not get labs ordered during last visit - reordered blood work, advise to get it done [place] S/P subtotal parathyroidectomy 12/17/2016 Assessment & Plan (12/17/2016 8:00 AM CDT): s/p Right inferior parathyroidectomy - 08/10/2016 pre op PTH intact - 172 intra op PTH - 87 surgical pathology showed - PARATHYROID, RIGHT INFERIOR, PARATHYROIDECTOMY: - HYPERCELLULAR PARATHYROID TISSUE CONSISTENT WITH PARATHYROID ADENOMA. - pt. Did not get blood work done, that was ordered last time - just take multi vitamin -will reorder Blood work Hypervitaminosis A 12/17/2016 Assessment & Plan (11/09/2017 1:19 PM CDT): Recheck recent Vitamin A levels - still high - advised to stop taking Multivitamin - start takign vitamin D 3 1000 units oral daily - recheck levels in future Assessment & Plan (08/10/2017 1:24 PM UTILITY AIRCREWMAN): Recheck levels Assessment & Plan (12/17/2016 8:01 AM CDT): Recheck levels Type 2 diabetes mellitus wit h stage 3 chronic kidney disease, with long-term current use of insulin 12/11/2016 Assessment & Plan (07/08/2019 3:42 PM UTILITY AIRCREWMAN): A1c 5.5% Jun 2019 on no medications. We will monitor this for 3 years. If remains normal, we will resolve the diabetes. Assessment & Plan (11/09/2017 10:53 AM CDT): Diabetes is chronic, well controlled , sometimes fasting hypoglycemia . - A1c today - 5.4 % - renal fucntion imprioved form last time, but still decreased - will decrease metformin Er to 500 mg oral twice daily - if still fasting BS are , 90, then advised to decrease Tresiba by 4 units - c/w Victoza - make an appt. To see eye doctor - follow up in 4 months with BS log Reminded to bring in blood sugar diary at next visit. Dietary recommendations for ADA diet. Regular aerobic exercise. Discussed ways to avoid symptomatic hypoglycemia. Discussed sick day management. Discussed foot care. Reminded to get yearly retinal exam. Medication changes per orders. Diabetes will be reassessed in 4 months . Assessment & Plan (09/25/2017 5:59 AM CDT): Sugars are controlled. Patient takes Lantus 45 units q.h.s., metformin 1000 mg b.i.d., invokana and Victoza daily. However per PCPs documentation patient also drinks 12 cans of regular soda per day. Will only give patient diet soda. Will decrease Lantus to 12 units q.h.s. and placed on high-dose sliding scale. Will continue to monitor and adjust as needed. Assessment & Plan (08/10/2017 1:26 PM UTILITY AIRCREWMAN): - A1c today 5.5 % - due to worsening kidney function , will stop invokana - c/w Lantus , Metformin and Victoza - recheck Renal function in 3 months, based on that , will back off of Metformin if needed - encourage good oral hydration - advised good oral hydration Diabetes is improving with treatment. Reminded to bring in blood sugar diary at next visit. Dietary recommendations for ADA diet. Regular aerobic exercise. Discussed ways to avoid symptomatic hypoglycemia. Discussed sick day management. Discussed foot care. Reminded to get yearly retinal exam. Medication changes per orders. Diabetes will be reassessed in 3 months. Assessment & Plan (05/01/2017 10:36 PM UTILITY AIRCREWMAN): - reviewed BS log - BS well controlled, off Humalog on current regimen , occasional low BS in am - advised to decrease Lantus or Toujeo to 40 units SQ daily - advised to get blood and urine work up done today - will follow up with lab results - advised good oral hydration Diabetes is improving with treatment. Reminded to bring in blood sugar diary at next visit. Dietary recommendations for ADA diet. Regular aerobic exercise. Discussed ways to avoid symptomatic hypoglycemia. Discussed sick day management. Discussed foot care. Reminded to get yearly retinal exam. Medication changes per orders. Diabetes will be reassessed in 3 months. Assessment & Plan (03/20/2017 10:17 AM CDT): A1c today 6.0 % , significantly improved since last visit - pt. Main compliant today weight gain - discussed about improving lifestyle habits - also try to take off Humalog insulin, increase Metformin to full maximum dose and add SGLT -2 inhibitors - stop Novolog - increase Metformin to 1000 mg oral twice daily - start Invokana 300 mg oral daily - continue victoza and Lantus - blood work now - follow up in 6 weeks with BS logs Diabetes is improving with treatment. Reminded to bring in blood sugar diary at next visit. Dietary recommendations for ADA diet. Regular aerobic exercise. Discussed ways to avoid symptomatic hypoglycemia. Discussed sick day management. Discussed foot care. Reminded to get yearly retinal exam. Medication changes per orders. Diabetes will be reassessed in 6 weeks. Assessment & Plan (12/17/2016 7:59 AM CDT): Lab Results Component Value Date HGBA1C 6.6 12/11/2016 improved from last time 10/2016 - 11.5 % Continue Current regimen: Levemir 25 units SQ twice daily Humalog 10 units TID with meals metformin ER 1000 mg BID Victoza 1.8 mg SQ daily Diabetes is improving with treatment. Continue current treatment regimen. Reminded to bring in blood sugar diary at next visit. Dietary recommendations for ADA diet. Regular aerobic exercise. Discussed ways to avoid symptomatic hypoglycemia. Discussed sick day management. Discussed foot care. Diabetes will be reassessed in 3 months. Hyperlipidemia associated with type 2 diabetes ivett brownjuan m 08/09/2015 Overview (09/22/2016): Hyperlipidemia, unspecified hyperlipidemia type Assessment & Plan (09/25/2017 6:01 AM CDT): Continue aspirin and statin. Assessment & Plan (08/10/2017 1:23 PM UTILITY AIRCREWMAN): On statin therapy - advised to increase physical activity - advised low fat/chol diet and avoid greasy and junk food Assessment & Plan (05/01/2017 10:37 PM UTILITY AIRCREWMAN): On statin therapy - advised to increase physical activity - advised low fat/chol diet and avoid greasy and junk food Assessment & Plan (03/20/2017 10:19 AM CDT): On statin therapy - advised to increase physical activity - advised low fat/chol diet and avoid greasy and junk food Bipolar affective disorder 08/09/2015 Overview (09/22/2016): Bipolar affective disorder, remission status unspecified Assessment & Plan (09/25/2017 6:00 AM CDT): Chronic and controlled with lithium, Wellbutrin, olanzapine, Effexor and trazodone. Holding lithium due to suspected toxicity. Will resume other medications. History of transient cerebral ischemia 6 Overview (09/22/2016): History of TIA (transient ischemic attack) Gastroesophageal reflux disease 08/09/2015 Overview (09/22/2016): Gastroesophageal reflux disease, esophagitis presence not specified Assessment & Plan (09/25/2017 6:00 AM CDT): Continue PPI Diabetic polyneuropathy asso ciated with type 2 diabetes mellitus 08/09/2015 Overview (09/22/2016): Neuropathy Assessment & Plan (09/25/2017 5:55 AM CDT): Patient was on Neurontin however. Due to his tremors. Will continue to hold at this time. Plaque psoriasis 08/09/2015 Overview (09/22/2016): Plaque psoriasis Benign hypertensive kidney d isease with chronic kidney disease stage I through stage IV, or unspecified(403.10) 08/09/2015 Overview (09/22/2016): Essential hypertension Assessment & Plan (11/09/2017 1:20 PM CDT): BP well controlled, chronic At goal advised to cut back on sodas and increase physical activity Assessment & Plan (08/10/2017 1:24 PM UTILITY AIRCREWMAN): BP well controlled, chronic At goal advised to cut back on sodas and increase physical activity Assessment & Plan (03/20/2017 10:19 AM CDT): Hypertension is improving with treatment. Continue current treatment regimen. Dietary sodium restriction. Weight loss. Regular aerobic exercise. Continue current medications. Blood pressure will be reassessed at the next regular appointment. Obstructive sleep apnea syndrome 08/09/2015 Overview (09/22/2016): Obstructive sleep apnea Assessment & Plan (12/15/2017 3:47 PM CDT): Pt had oral surgery to help improve his sleep apnea. He has a CPAP at home but denies using it. Had sleep study with Dr. Su in 2014-IMPRESSION: The above polysomnography reveals evidence of: 1. Reduction in sleep efficiency. 2. Normal sleep latency. 3. Extremely severe obstructive sleep apnea syndrome with an apnea/hypopnea index of 106.6. 4. Mildly loud and continuous snoring. 5. Positive pressure therapy was found to be effective. Continuous positive pressure therapy was ineffective and bilevel therapy inspiratory positive airway pressure of 24 cm and expiratory positive air pressure of 20 cm found to be the best attempted settings. 6. A medium Mcclellan-Paykel Simplus full-face mask was used. Would like to f/u with him Explained the risk of remote computer terminal operator MAK and encourage use of CPAP or BIPAP Assessment & Plan (09/25/2017 5:56 AM CDT): Patient on bilevel q.h.s.. Will order. Assessment & Plan (03/20/2017 10:20 AM CDT): Non Compliant with CPAP Advised to follow up with sleep medicine, and get back on CPAP Assessment & Plan (12/17/2016 8:02 AM CDT): Compliant with CPAP Chronic obstructive pulmonary disease 08/16/2012 Overview (09/23/2016): COPD (chronic obstructive pulmonary disease) Assessment & Plan (12/25/2019 1:56 PM CDT): Patient is interested in tobacco cessation. Nicotine patches scripts sent in per pt request. Discussed smoking cessation with patient; patient wanting to quit smoking; discussed using calendar method; cutting back by 1-2 cigarettes every 3 days until no longer smoking; discussed breaking habits; discussed moving furniture in house, removing all smoking related items from home; no smoking in home or car; wash nixon, steam clean carpet, wash curtains/blinds; febreeze fabric that cannot be laundered; enlist help from family and friends, let them know you are trying to quit smoking so they can encourage you. Assessment Manager referral placed. Class 2 severe obesity due t o excess calories with serious comorbidity and body mass index (BMI) of 37.0 to 37.9 in adult 08/16/2012 Overview (09/22/2016): Obesity Assessment & Plan (12/25/2019 1:57 PM CDT): Healthy, low carbohydrate lifestyle and exercise for 150min/week recommended Referral for insurance special agent placed. Assessment & Plan (10/16/2019 11:40 AM CDT): Healthy, low carbohydrate lifestyle and exercise for 150min/week recommended Assessment & Plan (12/15/2017 3:44 PM CDT): Obesity is unchanged. Discussed the patient's BMI. The BMI is above average; BMI management plan is completed. Diet interventions: low calorie (1000 kCal/d) deficit diet.Diet= low-carb Limit white bread, rice, pasta, potatoes, juice, energy drinks, coffee creamers with sugar, sugar sodas, candy, cake, cookies, ice cream. Be more careful with starchy vegetables like corn, carrots, and fruits. Stay away from processed foods, fast foods, fried foods. The cornerstone of this diet is lean grilled meats, green salads or cooked greens, fat-free milk, cottage cheese, nuts like [id number], protein bars with 10-15 g of protein and 20-30 g of carbohydrate. Choose whole grain breads and pastas, brown rice, sweet potatoes, read onions--these whole grains absorb more slowly thus blood sugar does not surge so high so quickly. Avoid drinking juice, eat a piece of fruit instead. Assessment & Plan (11/09/2017 1:18 PM CDT): Obesity is unchanged. Discussed the patient's BMI. The BMI is above average; BMI management plan is completed. General weight loss/lifestyle modification strategies discussed (elicit support from others; identify saboteurs; non-food rewards, etc). Behavioral treatment: stress management. Diet interventions: moderate (500 kCal/d) deficit diet. Informal exercise measures discussed, e.g. taking stairs instead of elevator. Regular aerobic exercise program discussed. Assessment & Plan (05/01/2017 10:37 PM UTILITY AIRCREWMAN): Obesity is improving with treatment. Discussed the patient's BMI. The BMI is above average; BMI management plan is completed. General weight loss/lifestyle modification strategies discussed (elicit support from others; identify saboteurs; non-food rewards, etc). Behavioral treatment: stress management. Diet interventions: moderate (500 kCal/d) deficit diet. Informal exercise measures discussed, e.g. taking stairs instead of elevator. Regular aerobic exercise program discussed. Assessment & Plan (03/20/2017 10:14 AM CDT): Obesity is worsening Discussed the patient's BMI. The BMI is above average; BMI management plan is completed. General weight loss/lifestyle modification strategies discussed (elicit support from others; identify saboteurs; non-food rewards, etc). Behavioral treatment: stress management. Diet interventions: moderate (500 kCal/d) deficit diet. Informal exercise measures discussed, e.g. taking stairs instead of elevator. Regular aerobic exercise program discussed. Assessment & Plan (12/17/2016 8:01 AM CDT): Obesity is improving with treatment. Discussed the patient's BMI. The BMI is above average; BMI management plan is completed. General weight loss/lifestyle modification strategies discussed (elicit support from others; identify saboteurs; non-food rewards, etc). Behavioral treatment: stress management. Diet interventions: moderate (500 kCal/d) deficit diet. Informal exercise measures discussed, e.g. taking stairs instead of elevator. Regular aerobic exercise program discussed. 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 Will continue metoprolol with hold parameters. Holding Lasix at this time. Assessment & Plan (05/01/2017 10:37 PM UTILITY AIRCREWMAN): Hypertension is improving with treatment. Continue current treatment regimen. Dietary sodium restriction. Weight loss. Regular aerobic exercise. Continue current medications. Blood pressure will be reassessed at the next regular appointment. Assessment & Plan (12/17/2016 8:03 AM CDT): Hypertension is improving with treatment. Continue current treatment regimen. Dietary sodium restriction. Weight loss. Regular aerobic exercise. Continue current medications. Blood pressure will be reassessed at the next regular appointment. Emphysematous bleb Resolved Problems Problem Noted Date Diagnosed Date Resolved Date Bronchitis 12/15/2017 10/30/2018 Assessment & Plan (12/15/2017 3:48 PM CDT): Take your antibiotic as directed-augmentin Medrol dose pack You may take a cough suppressant to calm your cough (dayquil, delsym, or nyquil) If your cough is productive or you have tight chest congestion with thick mucus- you can use a cough expectorant like Mucinex Benadryl/Zyrtec can be used to dry up a runny nose along with a nasal spray like azelastine or mometasone.. The use of Chlorpheniramine (antihistamine) plus pseudoephedrine (decongestant) has been proven to be helpful. Avoid environmental triggers and allergen Drink plenty of fluids and get plenty of rest Tylenol/Motrin for pain/fever If you are not better in the next 5 days, follow up w PCP. Weakness 05/23/2017 10/30/2018 BMI 40.0-44.9, adult 12/12/2016 018 Palpitations 08/09/2015 10/30/2018 Overview (09/22/2016): Heart palpitations Screening status 08/09/2015 10/30/2018 Overview (09/22/2016): Screening Impaired glucose tolerance 08/09/2015 0 10/30/2018 Overview (09/22/2016): Prediabetes Acute upper respiratory infection 06/01/2014 05/22/2017 Overview (09/22/2016): Acute upper respiratory infection Immunizations Immunization Administration Dates Next Due Influenza, Quadrivalent, Spl it, Intramuscular 03/10/2016 Influenza, Trivalent, IM (MDV) 03/23/2014,2012 Influenza, Unspecified 03/31/2020,2018(Deferred: Patient Refused) Tdap 02/26/2019 Social History Tobacco Use Types Packs/Day Years Used Date Smoking Tobacco: Every Day Cigarettes 0.3 43.3 Started: 06/18/1981 Smokeless Tobacco: Never Tobacco Cessation:Ready to Q uit: Not Asked; Counseling Given: Not Answered Comments:quit but re-started 05/12/21 Alcohol Use Standard Drinks/Week Comments No 0 (1 standard drink = 0.6 oz pur e alcohol) AUDIT-C Answer Date Recorded Q1: How often do you have a drink containing alcohol? Monthly or less 07/10/2024 Q2: How many drinks containi ng alcohol do you have on a typical day when you are drinking? Patient does not drink Frequency of Binge Drinking Not on file 06/19 PHQ-2 Answer Date Recorded PHQ-2 Total Score (If total score is 3 or more points, staff should administer the PHQ-9) 0 05/31/2020 Personal Safety Answer Date Recorded Have you ever been in or are you currently in a harmful physical or emotional relationship or is someone making you feel afraid or unsafe? Denies 07/10/2024 Sex and Gender Information Value Date Recorded Sex Assigned at Not on file Legal Sex Male 5:22 PM UTILITY AIRCREWMAN Gender Identity Not on file Sexual Orientation Not on file Last Filed Vital Signs Vital Sign Reading Time Taken Comments Blood Pressure 136/84 07/10/2024 4:54 PM UTILITY AIRCREWMAN Pulse 62 07/10/2024 4:54 PM UTILITY AIRCREWMAN Temperature 36.4 C (97.5 F) 07/10/2024 4:54 PM UTILITY AIRCREWMAN Respiratory Rate 16 07/10/2024 4:54 PM UTILITY AIRCREWMAN Oxygen Saturation 97% 07/10/2024 4:54 PM UTILITY AIRCREWMAN Inhaled Oxygen Concentration - - Weight 105.8 kg (233 lb 4 oz) 07/10/2024 10:09 A M UTILITY AIRCREWMAN Height 175.3 cm (5' 9 ) 07/10/2024 10:09 AM UTILITY AIRCREWMAN Body Mass Index 34.44 07/10/2024 10:09 AM UTILITY AIRCREWMAN Plan of Treatment Not on file Medical Devices Implanted Type Area Saw Edge Fuser Circular Device Identifier Shelf Expiration Date Model / Serial / Lot KuGou Angio-Seal Vip 6fr Closere Device [id number] - [id number] Implanted:Qty: 1 on 10/12/2022 by Eliel Ortiz MD at [facility] Other - see comments [employer] 03/17/2023 [id number] / / [id number] [employer] [id number] 4mm 44mm Compression Headless Foot Ankle Screw Bone - [id number] Implanted:Qty: 1 on 04/25/2019 by Chidi Rios DPM at [facility] Right: Toes [employer] [id number] / / [employer] [place] Ezm 03-27-10 Easyclip Si 2mm [id number] Monocortical Superelastic Reamer - [id number] Implanted:Qty: 1 on 04/25/2019 by Chidi Rios DPM at [facility] Right: Toes [employer] [place] 11/16/2023 [id number] 03-27-10 / / [id number] [employer] [place] Ezm 10-10-10 Easyclip Si 2mm [id number] Monocortical Superelastic Reamer - [id number] Implanted:Qty: 1 on 04/25/2019 by Chidi Rios DPM at [facility] Right: Toes [employer] [place] 11/16/2023 EZM 10-10-10 / / [id number] Toe Tac Xpress Hammertoe Fixation System Implanted:Qty: 2 on 04/25/2019 by Chidi Rios DPM at [facility] Right: Toes [employer] [id number] 05/27/2021 [id number] / [id number] / [id number] [employer] Implanted:Qty: 1 on 04/25/2019 by Chidi Rios DPM at [facility] Right: Toes [employer] 07/18/2028 [id number] / / [id number] Procedures Procedure Name Priority Date/Time Associated Diagnosis Comments EGFR STAT 04/19/2023 3:53 PM CDT HEMOGLOBIN A1C Routine 12/13/2019 2:55 PM CDT LIPID PANEL Routine 05/17/2018 2:25 PM UTILITY AIRCREWMAN Type 2 diabetes mellitus with hyperglycemia, with long-term current use of insulin (HCC) from Last 3 Months or Most Recently Relevant to Health Maintenance Results * eGFR (04/19/2023 3:53 PM CDT) eGFR 51 mL/min/1. 73 m2 [facility] ([place] Comment: Interpretive Data Reference Interval Normal >/= 90 mL/min/1.73m2 Mildly decreased* 60 - 89 mL/min/1.73m2 Mildly to moderately decreased 45 - 59 mL/min/1.73m2 Moderately to severely decreased 30 - 44 mL/min/1.73m2 Severely decreased 15 - 29 mL/min/1.73m2 Kidney Failure < 15 mL/min/1.73m2 *Relative to young adult level Estimated glomerular filtration rate is determined by the 2020 CKD-EPI equation recommended by the National Kidney Foundation (A Unifying Approach to GFR Estimation: Recommendations of the NKF-ASK Task Force on Reassessing the Inclusion of Race in Diagnosing Kidney Disease, JASN 2020). The CKD-EPI equation should not be used for patients with unstable renal function and has not been validated in children and those over 70. Current interpretive data was last reviewed 2021. Blood 04/19/2023 3:53 PM CDT 04/19/2023 3:57 PM CDT Eladio Denton MD LAB BLOOD ORDERABLE S Final Result Performing Organization Address City/[facility]/ZIP Co de Phone Number [facility] ([place]) 1 [facility] Department [place] [address] * (ABNORMAL) Hemoglobin A1c (12/13/2019 2:55 PM CDT) Blood specimen (specimen) 12/13/2019 2:55 PM CDT Narrative [facility] - 12/13/2019 2:55 PM CDT Results in labs Aliza Carlson MD LAB BLOOD ORDERABLES Becky l Result Performing Organization Address [facility]/ZIP Co de Phone Number [place], [place] [phone] * (ABNORMAL) Lipid panel (05/17/2018 2:25 PM UTILITY AIRCREWMAN) Cholesterol 159 30 - 199 mg/dL [facility] ([place]) Comment: Interpretive Data Ages < or = 19 years Acceptable: <170 mg/dL Borderline high: 170-199 mg/dL High: >or= 200 mg/dL Ages > or = 20 years Desirable: <200 mg/dL Borderline high: 200-239 mg/dL High: >or= 240 mg/dL Literature References: 1. Expert Panel on Integrated Guidelines for Cardiovascular Health and Risk Reduction in Children and Adolescents. Pediatrics 2011;128:S213 2. NCEP Expert Panel. Circulation 2004;110:227 Current Interpretive Data was last revised on 2018. Triglycerides 143 <=149 mg/dL [facility] ([place]) Comment: Interpretive Data Ages < or = 9 years Acceptable: <75 mg/dL Borderline high: 75-99 mg/dL High: >or= 100 mg/dL Ages 10 to 20 years Acceptable: <90 mg/dL Borderline high: 90-129 mg/dL High: >or= 130 mg/dL Ages > or = 20 years Desirable: <150 mg/dL Borderline high: 150-199 mg/dL High: 200-499 mg/dL Very high: >or= 499 mg/dL Literature References: 1. Expert Panel on Integrated Guidelines for Cardiovascular Health and Risk Reduction in Children and Adolescents. Pediatrics 2011;128:S213 2. NCEP Expert Panel. Circulation 2004;110:227 Current Interpretive Data was last revised on 2018. HDL 39(L) >=40 mg/dL [facility] ([place]) Comment: Interpretive Data Ages < or = 19 years Acceptable: >45 mg/dL Borderline low: 40-45 mg/dL Low: <40 mg/dL Ages > or = 20 years Desirable: >or= 60 mg/dL Low: <40 mg/dL Literature References: 1. Expert Panel on Integrated Guidelines for Cardiovascular Health and Risk Reduction in Children and Adolescents. Pediatrics 2011;128:S213 2. NCEP Expert Panel. Circulation 2004;110:227 Current Interpretive Data was last revised on 2018. LDL, calculated 91 <=129 mg/dL [facility] ([place]) Comment: Interpretive Data Ages < or = 19 years Acceptable: <110 mg/dL Borderline high: 110-129 mg/dL High: >or= 130 mg/dL Ages > or = 20 years Optimal: <100 mg/dL Near optimal: 100-129 mg/dL Borderline high: 130-159 mg/dL High: >160 mg/dL Literature References: 1. Expert Panel on Integrated Guidelines for Cardiovascular Health and Risk Reduction in Children and Adolescents. Pediatrics 2011;128:S213 2. NCEP Expert Panel. Circulation 2004;110:227 Current Interpretive Data was last revised on 2018. Non-HDL Cholesterol 120 mg/dL [facility] ([place]) Comment: Interpretive Data Ages < or = 19 years Acceptable: <120 mg/dL Borderline high: 120-144 mg/dL High: >145 mg/dL Ages > or = 20 years When triglycerides are >200 mg/dL, Non-HDL cholesterol is a secondary target of therapy with treatment goals that are 30 mg/dL greater than the LDL cholesterol target. Literature References: 1. Expert Panel on Integrated Guidelines for Cardiovascular Health and Risk Reduction in Children and Adolescents. Pediatrics 2011;128:S213 2. NCEP Expert Panel. Circulation 2004;110:227 Current Interpretive Data was last revised on 2018. Chol/HDL ratio 4 [facility] ([place]) Blood specimen (specimen) 05/17/2018 2:25 PM UTILITY AIRCREWMAN 05/17/2018 5:15 PM UTILITY AIRCREWMAN Narrative [facility] ([place]) - 05/17/2018 6:14 PM UTILITY AIRCREWMAN Cleoja Levi Sims MD LAB BLOOD ORDERABLE S Final Result [facility] ([place]) 1 [facility] Department [place] [address] from Last 3 Months or Most Recently Relevant to Health Maintenance Insurance IDPA [facility] MEDICARE ADVANTAGE MEDICARE [facility] MEDIC[facility] ADVANTAGE [facility] MEDIC[facility] ADVANTAGE [employer] [facility] MEDICARE ADVANTAGE Advance Directives For more information, please contact: [phone] * Full Code (Latest Code Status on File) Date Activated Date Inactivated Comments 10/12/2022 2:12 PM 10/12/2022 10:46 PM * Full Code Date Activated Date Inactivated Comments 09/24/2017 9:04 PM 09/30/2017 5:22 PM Care Teams Automobile Lights Assembler Relationship Specialty Start Date End Date Tad Mcintosh DO [address] [place] [address] PCP - General Family Medicine 1/9/25
--- OUTSIDE RECORDS SUMMARY | 2024-10-16 21:28 | XMS_ITS | Encounter Summary ---
Author Organization [facility] Address [address] [place] [place] [address] Phone Care Team Providers Care Security Sergeant Name Role Phone Jabier Peck MD Primary Care Provider [phone] Srikanth Adrian MD Unavailable Tad Romero MD Primary Care Provider [phone] Gloria Martinez MD Unavailable [phone] Reason for Visit * Reason Comments Medication Refill Encounter Details Date Type Department Care Team (Late st Contact Info) Description 08/19/2022 Refill [facility] [address] [place] [phone] Jt Morillo MD [address] [place] [address] Medication Refill Social History Tobacco Use Types [...] CDT Gender Identity Male 05/03/2023 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 No / Unsure 08/21/2022 12:53 PM PRESERVATIVE FILLER MACHINE OPERATOR documented as of this encounter Miscellaneous Notes * Telephone Encounter - Aisha Escamilla RN - 08/21/2022 12:02 PM CST Approved Eliquis per last f/u note. ERVATIVE FILLER MACHINE OPERATOR documented in this encounter Plan of Treatment Upcoming Encounters Date Type Department Care Team (Late st Contact Info) Description 10/17/2024 1:00 PM CDT Procedure Visit [facility] [address] [place] [address] Gloria Martinez MD #2 [facility] [address] [place] [address] documented as of this encounter Visit Diagnoses [...] documented as of this encounter Care Teams Security Sergeant Relationship Specialty Start Date End Date Jabier Peck MD #2 [facility] [address] [place] [address] PCP - General Family Medicine 06/22/20 01/16/24 Tad Mcintosh MD [address] [place] [address] PCP - General Family Medicine 01/17/24 Srikanth Adrian MD #[address] [facility] [address] [place] [address] Stone Cutter Cardiovascular Disease - Cardiology 02/02/22 08/06/24 Gloria Martinez MD #[address] [facility] [address] [address] [place] [address] Consulting Physician Urology 04/30/24 documented as of this encounter
--- OUTSIDE RECORDS SUMMARY | 2024-10-16 21:28 | XMS_ITS | Encounter Summary ---
Author Organization [facility] Address [address] [place] [address] Phone Care Team Providers Care Manufacturing Team Member Name Role Phone Jabier Peck MD Primary Care Provider [phone] Srikanth Adrian MD Unavailable Tad Romero MD Primary Care Provider [phone] Gloria Martinez MD Unavailable [phone] Reason for Visit * Reason Onset Date Comments Advice Only 12/18/2022 Encounter Details Date Type Department Care Team (Late st Contact Info) Description 12/18/2022 Telephone [facility] [address] [place] [id number] Jabier Peck MD [address] [address] Advice Only Social History Tobacco Use Types Packs/Day Years [...] CDT Gender Identity Male 05/03/2023 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 Thanks! documented in this encounter Plan of Treatment Upcoming Encounters Date Type Department Care Team (Late st Contact Info) Description 10/17/2024 1:00 PM CDT Procedure Visit [facility] [address] [place] [address] Gloria Martinez MD #2 [facility] [address] [place] [address] documented as of this encounter Visit Diagnoses Not on filedocumented in this encounter Additional Health Concerns Infection Onset Date Last Indicated Resolved Time Respiratory Rule Out - RPA 02/26/2023 02/26/2023 0 02/26/2023 11:31 AM CDT COVID - 19 02/26/2023 02/26/2023 03/08/2023 12:1 6 AM CDT documented as of this encounter Care Teams Manufacturing Team Member Relationship Specialty Start Date End Date Jabier Peck MD #2 [facility] [address] [place] [address] PCP - General Family Medicine 06/22/20 01/16/24 Tad Mcintosh MD [address] [place] [address] PCP - General Family Medicine 01/17/24 Srikanth Adrian MD #2 [facility] [address] [place] [address] Station Inspector Cardiovascular Disease - Cardiology 02/02/22 08/06/24 Gloria Martinez MD [address] [facility] [address] [place] [address] Consulting Physician Urology 04/30/24 documented as of this encounter
--- OUTSIDE RECORDS SUMMARY | 2024-10-16 21:28 | XMS_ITS | Clinical Summary ---
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 Palpitations 11/22/2022 Chest pain 07/31/2022 Essential hypertension 07/31/2022 Tongue lesion 04/28/2020 Assessment & Plan (06/26/2024 9:29 AM PHOSPHORIC ACID SUPERVISOR): Has pain medication prescribed by Manasa Cortes at [facility] will confirm use of Shirley after surgery Stop Eliquis for 5 days before and after Excision of left lateral and right lateral tongue lesions with repair Risks and complications: Anesthesia, bleeding, infection, benign versus malignant pathology, recurrence of lesion, injury to arteries, nerves and veins, scarring and need for further treatment Assessment & Plan (04/28/2020 1:41 PM PHOSPHORIC ACID SUPERVISOR): Speak to [facility] about smoothing out right first [...] week Assessment & Plan (04/28/2020 1:41 PM PHOSPHORIC ACID SUPERVISOR): Speak to [facility] about smoothing out right first [...] (04/18/2019): Added automatically from request for surgery [id number] Hematochezia 03/04/2019 Overview (03/04/2019): Added automatically from request for surgery [id number] Family history of colon cancer 03/04/2019 Overview (03/04/2019): Added automatically from request for surgery [id number] 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 [place] level is in process. Will hold at [...] recommended Assessment & Plan (07/08/2019 3:43 PM PHOSPHORIC ACID SUPERVISOR): Healthy, low carbohydrate lifestyle and exercise for [...] hydration Assessment & Plan (08/10/2017 1:23 PM PHOSPHORIC ACID SUPERVISOR): s/p Right inferior parathyroidectomy - 08/10/2016 pre [...] renal Assessment & Plan (05/01/2017 10:36 PM PHOSPHORIC ACID SUPERVISOR): s/p Right inferior parathyroidectomy - 08/10/2016 pre [...] future Assessment & Plan (08/10/2017 1:24 PM PHOSPHORIC ACID SUPERVISOR): Recheck levels Assessment & Plan (12/17/2016 8:01 AM CDT): Recheck levels Type 2 diabetes mellitus wit h stage 3 chronic kidney disease, with long-term current use of insulin 12/11/2016 Assessment & Plan (07/08/2019 3:42 PM PHOSPHORIC ACID SUPERVISOR): A1c 5.5% Jun 2019 on no medications. [...] needed. Assessment & Plan (08/10/2017 1:26 PM PHOSPHORIC ACID SUPERVISOR): - A1c today 5.5 % - due [...] months. Assessment & Plan (05/01/2017 10:36 PM PHOSPHORIC ACID SUPERVISOR): - reviewed BS log - BS well [...] statin. Assessment & Plan (08/10/2017 1:23 PM PHOSPHORIC ACID SUPERVISOR): On statin therapy - advised to increase physical activity - advised low fat/chol diet and avoid greasy and junk food Assessment & Plan (05/01/2017 10:37 PM PHOSPHORIC ACID SUPERVISOR): On statin therapy - advised to increase [...] activity Assessment & Plan (08/10/2017 1:24 PM PHOSPHORIC ACID SUPERVISOR): BP well controlled, chronic At goal advised [...] f/u with him Explained the risk of vermin exterminator MAK and encourage use of CPAP or [...] quit smoking so they can encourage you. Customer Service Advocate referral placed. Class 2 severe obesity due t o excess calories with serious comorbidity and body mass index (BMI) of 37.0 to 37.9 in adult 08/16/2012 Overview (09/22/2016): Obesity Assessment & Plan (12/25/2019 1:57 PM CDT): Healthy, low carbohydrate lifestyle and exercise for 150min/week recommended Referral for bingo caller placed. Assessment & Plan (10/16/2019 11:40 AM [...] greens, fat-free milk, cottage cheese, nuts like [id number], protein bars with 10-15 g of protein [...] discussed. Assessment & Plan (05/01/2017 10:37 PM PHOSPHORIC ACID SUPERVISOR): Obesity is improving with treatment. Discussed the [...] time. Assessment & Plan (05/01/2017 10:37 PM PHOSPHORIC ACID SUPERVISOR): Hypertension is improving with treatment. Continue current [...] Influenza, Unspecified 03/31/2020,2018(Deferred: Patient Refused) Tdap 02/26/2019 Surgical History Surgery Date Site/Laterality Comments OTHER SURGICAL HISTORY tongue surgery TONSILLECTOMY Tonsillectomy PARATHYROID GLAND SURGERY parathyroid surgery UVULOPALATOPHARYNGOPLASTY TOE AMPUTATION Right the great toe and the second toe amputated due to diabetes Medical History Medical History Date Comments Hypertension Hypertension Chronic obstructive pulmonar y disease (HCC) COPD Depression Depression Hyperlipidemia Hyperlipidemia Anxiety disorder Anxiety Anemia Anemia Asthma Asthma; Comments : SAB 06/01/2014 - Bipolar affective disorder (HCC) Bipolar illness; Comments: SAB 06/01/2014 - Hx Other Medical 10/05/2015 UVP3 Tonsillect radha, Bilateral partial turbinate re; Comments: EMB 11/26/2015 - Sciatica Diabetes mellitus (HCC) Hypoglyc emic Psoriasis CKD (chronic kidney disease) stage 3, GFR 30-59 ml/min ([facility]) [place] poisoning Headache, tension-type Sleep apnea patient had Uvul a and T&A and the helped GERD (gastroesophageal reflu x disease) Irritable bowel syndrome Diverticulitis of colon Cerebrovascular accident (CVA) (HCC) Cerebrovascular accident Cerebrovascular accident (CVA) (HCC) Stroke Obesity Pulmonary embolism (HCC) 12/15/2019 Awareness under anesthesia radha allen states he wakes up every time when given twilight anesthesia medication Emphysema lung (HCC) Lupus anticoagulant disorder Family History Medical History Relation Name Comments Colon cancer Brother Cancer, colon; Colon cancer Mother Cancer -colon; Stroke Sister Stroke; Relation Name Status Comments Brother Father Mother Sister Social History Tobacco Use Types Packs/Day Years [...] on file Legal Sex Male 5:22 PM PHOSPHORIC ACID SUPERVISOR Gender Identity Not on file Sexual Orientation Not on file Obstetrics History Last Filed Vital Signs Vital Sign Reading Time Taken Comments Blood Pressure 136/84 07/10/2024 4:54 PM PHOSPHORIC ACID SUPERVISOR Pulse 62 07/10/2024 4:54 PM PHOSPHORIC ACID SUPERVISOR Temperature 36.4 C (97.5 F) 07/10/2024 4:54 PM PHOSPHORIC ACID SUPERVISOR Respiratory Rate 16 07/10/2024 4:54 PM PHOSPHORIC ACID SUPERVISOR Oxygen Saturation 97% 07/10/2024 4:54 PM PHOSPHORIC ACID SUPERVISOR Inhaled Oxygen Concentration - - Weight 105.8 kg (233 lb 4 oz) 07/10/2024 10:09 A M PHOSPHORIC ACID SUPERVISOR Height 175.3 cm (5' 9 ) 07/10/2024 10:09 AM PHOSPHORIC ACID SUPERVISOR Body Mass Index 34.44 07/10/2024 10:09 AM PHOSPHORIC ACID SUPERVISOR Plan of Treatment Health Maintenance Due Date Last Done Comments Albumin Creatinine Ratio, Urine 1969 Colon Cancer Screening-Colonoscopy 1969 Hepatitis C Screening 1969 Prostate Cancer Screening-PSA 1969 Dilated Eye Exam 1969 Hepatitis B Screening 1987 Regular Well Visit/Exam 18-64 1987 Zoster Vaccine (1 of 2) 2019 Hemoglobin A1C 06/13/2020 12/13/2019, 02/2020, 05/17/2018, Additional history exists Foot Exam 07/08/2020 07/08/2019, 03/19, 11/09/2017, Additional history exists Depression Screening 05/31/2021 05/31/2020, 03/03/2019, 01/08/2019, Additional history exists Pneumococcal vaccine <65 (2 of 2 - PCV) 06/22/2021 06/22/2020 Covid-19 Vaccine (3 - 2023-2 5 season) 2024 09/11/2020, 08/21/2020 Influenza Vaccine (#1) 2024 , 02/24/2022, 08/01/2021, Additional history exists eGFR 04/19/2024 04/19/2023, 09/17, 12/30/2019, Additional history exists Lipid Panel 06/20/2024 06/20/2023, 02/16, 08/21/2022, Additional history exists DTaP/Tdap/Td Vaccine (2 - Td or Tdap) 02/26/2029 02/26/2019 Medical Devices Implanted Type Area Fixed Wing Aircraft Flight Mechanic Device Identifier Shelf Expiration Date Model / Serial / Lot [employer] Angio-Seal Vip 6fr Closere Device [id number] - [id number] Implanted:Qty: 1 on 10/12/2022 by Eliel Ortiz MD at [facility] Other - see comments [employer] 03/17/2023 [id number] / / [id number] [employer] [id number] 4mm 44mm Compression Headless Foot Ankle Screw Bone - [id number] Implanted:Qty: 1 on 04/25/2019 by Chidi Rios DPM at [facility] Right: Toes [employer] [id number] / / [employer] [place] Ezm 03-27-10 Easyclip Si 2mm [id number] Monocortical Superelastic Reamer - [id number] Implanted:Qty: 1 on 04/25/2019 by Chidi Rios DPM at [facility] Right: Toes [employer] [place] 11/16/2023 EZM 03-27-10 / / [id number] [employer] Ezm 03-27-10 Easyclip Si 2mm [id number] Monocortical Superelastic Reamer - [id number] Implanted:Qty: 1 on 04/25/2019 by Chidi Rios DPM at [facility] Right: Toes [employer] [place] 11/16/2023 EZM 10-10 / / [id number] Toe Tac Xpress Hammertoe Fixation System Implanted:Qty: 2 on 04/25/2019 by Chidi Rios DPM at [facility] Right: Toes [employer] [id number] 05/27/2021 [id number] / [id number] / [id number] [employer] Implanted:Qty: 1 on 04/25/2019 by Chidi Rios DPM at [facility] Right: Toes [employer] 07/18/2028 [id number] / / [id number] Procedures Procedure Name Priority Date/Time Associated Diagnosis Comments EGFR STAT 04/19/2023 3:53 PM CDT HEMOGLOBIN A1C Routine 12/13/2019 2:55 PM CDT LIPID PANEL Routine 05/17/2018 2:25 PM PHOSPHORIC ACID SUPERVISOR Type 2 diabetes mellitus with hyperglycemia, with long-term current use of insulin (HCC) from Last 3 Months or Most Recently Relevant to Health Maintenance Results * eGFR (04/19/2023 3:53 PM CDT) eGFR 51 mL/min/1. 73 m2 [facility] ([facility]) Comment: Interpretive Data Reference Interval Normal >/= [...] BLOOD ORDERABLE S Final Result [facility] ([facility]) 1 [facility] Department [place] [address] * (ABNORMAL) Hemoglobin A1c (12/13/2019 2:55 PM CDT) Blood specimen (specimen) 12/13/2019 2:55 PM CDT [facility] 12[facility]13/[facility] 2:55 PM CDT Results in labs Historical Provider LAB BLOOD ORDERABLES Becky l Result [place], [place] [phone] * (ABNORMAL) Lipid panel (05/17/2018 2:25 PM PHOSPHORIC ACID SUPERVISOR) Cholesterol 159 30 - 199 mg/dL [facility] ([facility]) Comment: Interpretive Data Ages < or [...] on 2018. Triglycerides 143 <=149 mg/dL [facility] ([facility]) Comment: Interpretive Data Ages < or [...] on 2018. HDL 39(L) >=40 mg/dL [facility] (EVER) Comment: Interpretive Data Ages < or [...] 2018. LDL, calculated 91 <=129 mg/dL [facility] ([facility]) Comment: Interpretive Data Ages < or [...] (EVER) Blood specimen (specimen) 05/17/2018 2:25 PM PHOSPHORIC ACID SUPERVISOR 05/17/2018 5:15 PM PHOSPHORIC ACID SUPERVISOR Narrative [facility] (EVER) - 05/17/2018 6:14 PM PHOSPHORIC ACID SUPERVISOR Tori Sims MD LAB BLOOD ORDERABLE S Final Result [facility] (EVER) 1 [facility] Department [place] [address] from Last 3 Months or Most Recently Relevant to Health Maintenance Insurance IDPA [facility] MEDICARE ADVANTAGE MEDICARE [facility] MEDICARE ADVANTAGE [facility] [place] [address] [facility] [place] [address] Advance Directives For more information, please contact: [phone] * Full Code (Latest Code Status on File) Date Activated Date Inactivated Comments 10/12/2022 2:12 PM 10/12/2022 10:46 PM * Full Code Date Activated Date Inactivated Comments 09/24/2017 9:04 PM 09/30/2017 5:22 PM Care Teams Ring Maker Relationship Specialty Start Date End Date Tad Mcintosh DO [address] [place] [address] PCP - General Family Medicine 06/26/24
--- OUTSIDE RECORDS SUMMARY | 2024-10-16 21:28 | XMS_ITS | Encounter Summary ---
Author Organization [facility] Address [address] [place] [address] Phone Care Team Providers Care Nursing Education Consultant Name Role Phone Jabier Peck MD Primary Care Provider [phone] Srikanth Adrian MD Unavailable Tad Romero MD Primary Care Provider [phone] Gloria Martinez MD Unavailable [phone] Reason for Visit * Reason Onset Date Comments Medication Refill Requesting new referral to [facility] 11/10/2022 Encounter Details Date Type Department Care Team (Late st Contact Info) Description 11/10/2022 Refill [facility] [address] [place] [address] Jabier Peck MD [address] [address] Medication Refill; Requesting new referral to [facility] Social History Tobacco Use Types Packs/Day Years [...] CDT Gender Identity Male 05/03/2023 12:44 PM TOLL GATE KEEPER Sexual Orientation Lesbian or Wolff 05/03/2023 12 :44 PM TOLL GATE KEEPER documented as of this encounter Miscellaneous Notes * Telephone Encounter - Nikky Irby - 11/10/2022 1:42 PM CDT C: Tae Kent is requesting a new referral to [facility]. . Please call Tae (relationship to patient .f) back regarding above referenced patient. Patient's Provider is Jabier Peck MD . * Telephone Encounter - Francine Soto RN - 11/10/2022 10:36 AM CDT Medication failed the protocol, provider to review and approve the medication order if appropriate. Requested Prescriptions Pending Prescriptions Disp Refills methocarbamol (ROBAXIN) 750 MG Tablet [Pharmacy Med Name: METHOCARBAMOL 750 MG TABLET] 45 Tablet 1 Sig: TAKE 1 TABLET BY MOUTH EVERY DAY NEEDED Not Delegated - Muscle Relaxants Protocol Failed - 11/10/2022 9:31 AM Failed - This refill cannot be delegated Passed - Visit with relevant provider in past 12 months or upcoming 90 days Recent Visits Date Type Provider Dept 08/21/22 Office Visit Jabier Peck MD [facility] 07/20/22 Office Visit [facility]ri Rocha MD [facility] 05/03/22 Telemedicine Jabier Peck MD [facility] 03/03/22 Office Visit Jabier Peck MD [facility] 02/24/22 Office Visit Kishore Prieto APRN, [facility] 01/31/22 Office Visit Kishore Prieto APRN, [facility] 12/13/21 Telemedicine Kishore Prieto APRN, BRUSHING MACHINE OPERATOR [facility] Showing recent visits within past 365 days and meeting all other requirements Future Appointments Date Type Provider Dept 11/21/22 Appointment Jabier Peck MD [facility] Showing future appointments within next 90 days and meeting all other requirements Fosinopril Sodium 40 MG Tablet [Pharmacy Med Name: FOSINOPRIL SODIUM 40 MG TAB] 90 Tablet 1 Sig: TAKE 1 TABLET BY MOUTH EVERY DAY ALESIA Inhibitors Protocol Passed - 11/10/2022 9:31 AM Passed - Serum potassium on record in past 12 months POTASSIUM Date Value Ref Range Status 08/21/2022 3.8 3.5 - 5.1 mmol/L Final Passed - Blood pressure on record in past 12 months Clinician-entered: BP Readings from Last 3 Encounters: 08/21/22 118/78 07/20/22 132/74 03/03/22 116/64 Patient-entered: No data recorded Passed - Visit with relevant provider in [...] [facility] 12/13/21 Telemedicine Kishore Prieto APRN, [facility] Showing recent visits within past 365 days and meeting all other requirements Future Appointments Date Type Provider Dept 11/21/22 Appointment Jabier Peck MD [facility] Showing future appointments within next 90 days and meeting all other requirements Passed - GFR on record in past 12 months GFR, EST. NONAFRICAN Date Value Ref Range Status 08/21/2022 49 (L) >=60 Final documented in this encounter Plan of Treatment Upcoming Encounters Date Type Department Care Team (Late st Contact Info) Description 10/17/2024 1:00 PM CDT Procedure [facility] [address] [place] [address] Gloria Martinez MD [address] [facility] [address] [place] [address] documented as of this encounter Visit Diagnoses [...] documented as of this encounter Care Teams Nursing Education Consultant Relationship Specialty Start Date End Date Jabier Peck MD [address] [address] PCP - General Family Medicine 06/22/20 01/16/24 Tad Mcintosh MD [address] [place] [address] PCP - General Family Medicine 01/17/24 Srikanth Adrian MD [address] [address] Real Estate Underwriter Cardiovascular Disease - Cardiology 02/02/22 08/06/24 Gloria Martinez MD [address] [address] Consulting Physician Urology 04/30/24 documented as of this encounter
--- OUTSIDE RECORDS SUMMARY | 2024-10-16 21:28 | XMS_ITS | Encounter Summary ---
Author Organization [facility] Address [address] [place] [address] Phone Care Team Providers Care Snowmobile Mechanic Name Role Phone Jabier Peck MD Primary Care Provider [phone] Srikanth Adrian MD Unavailable Tad Romero MD Primary Care Provider [phone] Gloria Martinez MD Unavailable [phone] Reason for Visit * Reason Comments Medication Refill Encounter Details Date Type Department Care Team (Late st Contact Info) Description 03/29/2022 Refill [facility] Family [facility] [address] [place] [address] Jabier Peck MD #[address] [address] Medication Refill Social History Tobacco Use Types [...] CDT Gender Identity Male 05/03/2023 12:44 PM SPORTS EDITOR Sexual Orientation Lesbian or Wolff 05/03/2023 12 :44 PM SPORTS EDITOR COVID-19 Exposure Response Date Recorded In the last 10 days, have tabby u been in contact with someone who was confirmed or suspected to have Coronavirus/COVID-19? No / Unsure 03/03/2022 10:34 AM CDT documented as of this encounter Miscellaneous Notes * Telephone Encounter - Francine Soto RN - 03/29/2022 2:31 PM CDT Medication failed the protocol, provider to review and approve the medication order if appropriate. Requested Prescriptions Pending Prescriptions Disp Refills methocarbamol (ROBAXIN) 750 MG Tablet [Pharmacy Med Name: METHOCARBAMOL 750 MG TABLET] 45 Tablet 1 Sig: TAKE 1 TABLET BY MOUTH THREE TIMES A DAY NEEDED FOR MUSCLE SPASM Not Delegated - Muscle Relaxants Protocol Failed - 03/29/2022 4:13 AM Failed - This refill cannot be delegated Passed - Visit with relevant provider in past 12 months or upcoming 90 days Recent Visits Date Type Provider Dept 03/03/22 Office Visit Jabier Peck MD [facility] 02/24/22 Office Visit Kishore Prieto APRN, R[facility] 01/31/22 Office Visit Kishore Prieto APRN, RICH[facility] 12/13/21 Telemedicine Kishore Prieto APRN, [facility] [...] Description 10/17/2024 1:00 PM CDT Procedure Visit [facility] #[address] [place] [address] Gloria Martinez MD [address] [facility] [address] [place] [address] documented as of this encounter Visit Diagnoses Diagnosis Cervical radiculopathy Brachial neuritis or radiculitis nos Penile mass- Primary Unspecified disorder of penis documented in this encounter Additional Health Concerns Infection Onset Date Last Indicated Resolved Time COVID - 19 Confirmed 05/31/2022 05/31/2022 023 12:16 AM SPORTS EDITOR Respiratory Rule Out - RPA 02/26/2023 02/26/2023 0 02/26/2023 11:31 AM CDT COVID - 19 02/26/2023 02/26/2023 03/08/2023 12:1 6 AM CDT documented as of this encounter Care Teams Snowmobile Mechanic Relationship Specialty Start Date End Date Jabier Peck MD #2 [facility] [address] [place] [address] PCP - General Family Medicine 06/22/20 01/16/24 Tad Mcintosh MD [address] [place] [address] PCP - General Family Medicine 01/17/24 Srikanth Adrian MD #2 [facility] [address] [place] [address] Electrician Assistant Cardiovascular Disease - Cardiology 02/02/22 08/06/24 Gloria Martinez MD #2 [facility] [address] [place] [address] Consulting Physician Urology 04/30/24 documented as of this encounter
--- OUTSIDE RECORDS SUMMARY | 2024-10-16 21:28 | XMS_ITS | Encounter Summary ---
Author Organization [facility] Address [address] [place] [address] Phone Care Team Providers Care Cook Seafood Name Role Phone Jabier Peck MD Primary Care Provider [phone] Srikanth Adrian MD Unavailable Tad Romero MD Primary Care Provider [phone] Gloria Martinez MD Unavailable [phone] Reason for Visit * Reason Comments Medication Refill Encounter Details Date Type Department Care Team (Late st Contact Info) Description 07/28/2022 Refill [facility] [address] [place] [address] Jabier Peck MD #[address] [address] Medication Refill Social History Tobacco Use Types [...] CDT Gender Identity Male 05/03/2023 12:44 PM PHOTO LAB MANAGER Sexual Orientation Lesbian or Wolff 05/03/2023 12 :44 PM PHOTO LAB MANAGER COVID-19 Exposure Response Date Recorded In the last 10 days, have yo u been in contact with someone who was confirmed or suspected to have Coronavirus/COVID-19? No / Unsure 07/20/2022 2:30 PM PHOTO LAB MANAGER documented as of this encounter Miscellaneous Notes * Telephone Encounter - Francine Soto RN - 07/28/2022 3:22 PM CST Medication failed the protocol, provider to review and approve the medication order if appropriate. Requested Prescriptions Pending Prescriptions Disp Refills methocarbamol (ROBAXIN) 750 MG Tablet [Pharmacy Med Name: METHOCARBAMOL 750 MG TABLET] 45 Tablet 1 Sig: TAKE 1 TABLET BY MOUTH THREE TIMES A DAY NEEDED FOR MUSCLE SPASM Not Delegated - Muscle Relaxants Protocol Failed - 07/28/2022 2:40 PM Failed - This refill cannot be delegated Passed - Visit with relevant provider in past 12 months or upcoming 90 days Recent Visits Date Type Provider Dept 07/20/22 Office Visit Gerri Rocha MD [facility] 05/03/22 Telemedicine Jabier Peck MD [facility] 03/03/22 Office Visit Jabier Peck MD [facility] 02/24/22 Office Visit Kishore Prieto APRN, RICH[facility] 01/31/22 Office Visit Kishore Prieto APRN, RICHARD [facility] 12/13/21 Telemedicine Kishore Prieto APRN, RICHARD [facility] 08/01/21 Office Visit Jabier Peck MD [facility] Showing recent visits within past 365 days and meeting all other requirements Future Appointments No visits were found meeting these conditions. Showing future appointments within next 90 days and meeting all other requirements O LAB MANAGER documented in this encounter Plan of Treatment Upcoming Encounters Date Type Department Care Team (Late st Contact Info) Description 10/17/2024 1:00 PM CDT Procedure Visit [facility] [address] [place] [address] Gloria Martinez MD [address] [facility] [address] [place] [address] documented as of this encounter Visit Diagnoses [...] documented as of this encounter Care Teams Cook Seafood Relationship Specialty Start Date End Date Jabier Peck MD #2 [facility] [facility] [address] [place] [address] PCP - General Family Medicine 06/22/20 01/16/24 Tad Mcintosh MD [address] [place] [address] PCP - General Family Medicine 01/17/24 Srikanth Adrian MD #2 [facility] [facility] [address] [place] [address] Crimping Press Operator Cardiovascular Disease - Cardiology 02/02/22 08/06/24 Gloria Martinez MD [address] [facility] [address] [place] [address] Consulting Physician Urology 04/30/24 documented as of this encounter
--- OUTSIDE RECORDS SUMMARY | 2024-10-16 21:28 | XMS_ITS | Data Portability ---
Author Organization [place] - [facility], Laurence Mondragon - [facility] Address [address] [place] [address] Care Team Providers Care Assistant Dean Name Role Phone [facility] OTHER Assessment Encounter Date Assessment Date Assessment LastModified by Organization Details LastModified Time 11/18/2019 11/18/2019 Gr 1 mccloud ulcer R2 toe Hammer toes R2-5 and L2 rigid; L3,4,5 flexible DM neuropathy w Q7 class findings Amputation of the R hallux abalettie Not available 11/18/2019 13:57:48 11/25/2019 11/25/2019 Gr 1 mccloud ulcer R2 toe Hammer toes R2-5 and L2 rigid; L3,4,5 flexible DM neuropathy w Q7 class findings Amputation of the R hallux abalettie Not available 11/25/2019 15:20:38 12/02/2019 12/02/2019 Gr 1 mccloud ulcer R2 toe Hammer toes R2-5 and L2 rigid; L3,4,5 flexible DM neuropathy w Q7 class findings Amputation of the R hallux abalettie Not available 12/02/2019 16:46:27 01/05/2020 01/05/2020 Gr 1 mccloud ulcer R2 toe Hammer toes R2-5 and L2 rigid; L3,4,5 flexible DM neuropathy w Q7 class findings Amputation of the R hallux 2019 Poorly controlled DM abalettie Not available 01/06/2020 10:32:30 01/13/2020 01/13/2020 Gr 1 mccloud ulcer R2 toe Hammer toes R2-5 and L2 rigid; L3,4,5 flexible DM neuropathy w Q7 class findings Amputation of the R hallux 2019 Poorly controlled DM abalettie Not available 01/13/2020 17:45:02 Plan of Treatment Reminders Order Date Submit Date Provider Last Modified By Organization Details Last Modified Time Details Appointments None recorded. Lab HbA1c (hemoglobin A1c), blood 2019 020 Not available 0 08:52:40 CMP, serum or plasma 2019 020 Not available 0 08:52:41 CBC 2019 020 Not available 0 08:52:41 PT/PTT, plasma 2019 020 Not available 0 08:52:41 HbA1c (hemoglobin A1c), blood 2019 Not available 0 11:13:00 Referral None recorded. Procedures None recorded. Surgeries None recorded. Imaging XR, chest 2019 Not available 0 10:08:12 electrocard iogram 2019 Not available 0 10:08:12 Medication Orders None recorded. Patient TargetsNo targets recorded. Patient Instructions Encounter Date Encounter Id Patient Instructions Last Modified By Organization Details Last Modified Time 11/18/2019 [id number] Recommend seeing neurologist of his choice or getting into a pain clinic for his painful neuropathy of hands and feet. He has had opioid drug dependance in the past, those should be avoided. He says his blood sugar will go up after eating sweets, he has not had a HbA1c in years and he would like to know how his sugars are running. Applied a buttress pad under the R2,3,4,5 toes, wear daily, remove qhs or to shower or bathe. Applied a silicone tube on the L2 toe that he said felt good, wear daily, remove qhs or to shower/bathe continue sx shoe R, dispensed a new shoe, his was worn out and a little too long Dress R2 toe with maryuri/cotton ball/paper tape bid. Call with odor, increased pain or drainage. New sx shoe R foot dispensed. Ok to shower the wound, pat dry and keep dressed/clean {{H&P# H&P Examin ed, reviewed}}. Discussed ulceration and in the presence of {{neuropathy* AOD & neuropathy AOD}} and systemic disease {{having had DM# pinched nerves sciatica d iabetes metabolic distrubences chem otherapy damage}}. Diabetes must be well controlled to achieve healing. Local wound care, debridments and offloading are especially important. Occasionaly additional scanning, MRI's or CT's will be used to investigate bone infection. Additional modalities such as oral antibiotics, biopsy, IV antibiotics, hospitalization, amputation and even skin grafting may be employed. Advised daily wound care is necessary and to monitor oneself for SOI. Compliance with office visits and my instructions are necessary. F/u 1 week abalettie Not available 11/18/2019 14:02:44 11/25/2019 [id number] Recommend, he would like to persue and discussed bilateral hammer toe surgery (arthrodesis B2,3,4 and arthroplasty B5). Likely ulcer will reoccur wo it. dc buttress. use cotton ball under the toe and continue maryuri/cotton/paper tape to the ulcer. Has improved nicely. get xrays L foot next visit. fu 1 wk ok to schedule surgery prn abalettie Not available 11/25/2019 15:25:12 12/02/2019 [id number] He said he is going to look into a lawsuit against his previous surgeon and asked me if I would talk to him, but he cannot remember his name and will have the trial attorney call us for an appointment if needed. He has not gotten blood work done yet debrided ulcer, continue cotton under the toe too to offload, toe pads made it hurt more xray taken 1 view L foot to review hammer toes on that side. nc fu 2 wk for preop and wound care. abalettie Not available 12/02/2019 16:48:53 01/05/2020 [id number] has not fu in a month was in hospital for DVT and PE has not gotten labs done for healing - encouraged pt to get labs done now elective sx will have to wait for at least 6 mos due to DVT and blood thinners will likely need to go to wound care center with limited healing order bone scan next visit if there is limited healing fu 1 wk abalettie Not available 01/06/2020 10:34:37 01/13/2020 [id number] He has pain and his ulcer is not healing he has not gotten blood work done to look at his healing factors I would like to refer him to a wound care center of his choice. He knows of one in [place], [place] that he would like to go to. I advised make an appointment there and I will send copies of his records from here. continue home care bid with maryuri/cotton/paper tape and sx shoe monitor for SOI, odor, redness or F/C he may come back here but we have been met with limited success and a more comprehensive environment would be better for his wound healing fu prn abalettie Not available 01/13/2020 17:47:45 Reason for Referral None Reported. Problems No Known Problems Procedures Surgical History Date Name Laterality Status Provider Name and Address Organization Details Recorded Time 01/13/20 20 [id number] Ulcer Debridement completed [facility] 01/13/2020 17:44:57 01/05/20 20 [id number] Ulcer Debridement completed [facility] 01/06/2020 10:31:49 12/02/19 20 [id number] Ulcer Debridement completed [facility] 12/02/2019 16:46:21 11/25/19 20 [id number] Ulcer Debridement completed [facility] 11/25/2019 15:20:30 11/25/19 20 [id number] Est. 20-29 min completed [facility] 11/25/2019 15:20:12 11/18/19 20 [id number] X-rays 3v Feet Normal completed [facility] 11/18/2019 13:56:31 11/18/19 20 32007 Ulcer Debridement completed [facility] 11/18/2019 13:53:44 11/18/19 20 [id number]-- [employer]ER H&P Exam 30-44 minutes completed [facility] 11/18/2019 13:53:28 Tonsillectomy completed MORGAN BURGER [facility] 11/18/2019 12:23:22 Foot Surgery completed Michelle Spangler [place] [facility] 11/18/2019 13:21:53 hammer toe operation completed Michelle Spangler [place] [facility] 11/18/2019 13:22:01 Imaging Results None recorded. Procedure Notes None recorded. Medical Equipment None Reported. Allergies Allergen ID Allergen Name Allergen Category Reaction Reaction Severity Criticality Documentation Date Start Date Code Code System Note Provider Name and Address Organization Details Recorded Time 19600 acetamino phen / hydrocodo ne medicatio n Not available Not available Not available 11/25/2019 81149 2 RxNorm addic tion, abuse r Michelle Spangler null, [place] - [facility] 0 12:16:29 Medications Name Sig Start Date Stop Date Status Note LastModified by Organization Details LastModified Time clopidogrel 75 mg tabs active Not Available Not Available N ot Available doxycycline hyclate 100 mg caps 12/02 completed Not Available Not Available Not Available trazodone hydrochlori de 100 mg tabs active Not Available Not Available Not Available fosinopril sodium 40 mg tabs active Not Available Not Available Not Available hydroco/apa p tab 10-325mg active Not Available Not Available Not Available venlafaxine hcl er 150 mg cp24 active Not Available Not Available Not Available ropinirole hcl 2 mg tabs active Not Available Not Available Not Available montelukast sodium 10 mg tabs active Not Available Not Available Not Available bupropion hydrochlori de er (xl) 300 mg tb24 active Not Available Not Available Not Available metoprolol succinate er 25 mg tb24 12/02 completed Not Available Not Available Not Available levofloxaci n 500 mg tabs 12/02 completed Not Available Not Available Not Available omeprazole 20 mg cpdr active Not Available Not Available N ot Available oxycod/apap tab 5-325mg active Not Available Not Available Not Available bupropion hydrochlori de er (sr) 150 mg tb12 12/02 completed Not Available Not Available Not Available hydroco/apa p tab 5-325mg active Not Available Not Available Not Available oxcarbazepi ne 300 mg tabs active Not Available Not Available Not Available cefazolin sodium 1 gm solr 12/02 completed Not Available Not Available Not Available vancomycin hydrochlori de 1 gm solr 12/02 completed Not Available Not Available Not Available furosemide 40 mg tabs active Not Available Not Available N ot Available gabapentin 600 mg tabs active Not Available Not Available Not Available linzess 145 mcg caps active Not Available Not Available Not Available aripiprazol e 20 mg tabs active Not Available Not Available Not Available flovent hfa 110 mcg/act aero 12/02 completed Not Available Not Available Not Available combivent aer 20-100 active Not Available Not Available N ot Available atorvastati n calcium 80 mg tabs active Not Available Not Available N ot Available amoxicillin 500 mg capsule active Not Available Not Available Not Available gabapentin 600 mg tablet active Not Available Not Available Not Available hydrocodone 10 mg-acetamin ophen 325 mg tablet TK 1 T PO Q 6 HOURS PRN 12/02 completed Not Available Not Available Not Available aspirin 81 mg tablet,benson yed release Take by oral route. active Not Available Not Available No t Available trazodone 100 mg tablet active Not Available Not Available Not Available hydrocodone 7.5 mg-acetamin ophen 325 mg tablet active Not Available Not Available No t Available ropinirole 2 mg tablet active Not Available Not Available Not Available fosinopril 40 mg tablet active Not Available Not Available Not Available ibuprofen 200 mg tablet Take by oral route. active Not Available Not Available No t Available fluticasone propionate 220 mcg/actuati on HFA aerosol inhaler Inhale by inhalatio n route. active Not Available Not Available No t Available metoprolol succinate ER 25 mg tablet,exte nded release 24 hr active Not Available Not Available Not Available ondansetron 4 mg disintegrat ing tablet active Not Available Not Available N ot Available Ventolin HFA 90 mcg/actuati on aerosol inhaler Inhale by inhalatio n route. active Not Available Not Available No t Available hydroxyzine pamoate 25 mg capsule active Not Available Not Available N ot Available Combivent Respimat 20 mcg-100 mcg/actuati on solution for inhalation active Not Available Not Available N ot Available ipratropium 20 mcg-albuter ol 100 mcg/actuati on aerosol inhaler Inhale by inhalatio n route. active Not Available Not Available No t Available Eliquis 5 mg tablet active Not Available Not Available No t Available OneTouch Ultra Blue Test Strip active Not Available Not Available N ot Available Vitals Date Recorded Body height Body mass index (BMI) Body weight Provider Name and Address Organization Details Last Updated DateTime 11/18/2019 177.8 cm 37.3 kg/m2 645563.02 radha MORGANLATANYA LOUISE [employer] 11/18/2019 12:14:42 Date Recorded Body height Provider Name an d Address Organization Details Last Updated DateTime 11/25/2019 177.8 cm Paola LOUISE [facility] 11/25/2019 14:25:49 Date Recorded Body height Provider Name an d Address Organization Details Last Updated DateTime 12/02/2019 177.8 cm Paola May [facility] 12/02/2019 14:39:43 Date Recorded Body height Provider Name an d Address Organization Details Last Updated DateTime 01/05/2020 177.8 cm Paola May [place] - [facility] 01/05/2020 16:38:31 Date Recorded Body height Provider Name an d Address Organization Details Last Updated DateTime 01/13/2020 177.8 cm [facility] 01/13/2020 16:40:34 Social History Question Answer Notes LastModified by Organizat ion Details LastModified Time Tobacco Smoking Status Former Smoker MORGAN BURGER [facility] 11/18/2019 12:22:45 What Is Your Level Of Alcohol Consumption? None Information not available 11/18/2019 What Is Your Occupation? Disability Information not available 11/18/2019 Quit Smoking How Many Years Ago? 20 Information not available 11/18/2019 Before Quit, How Many Ppd? 1 Information not available 11/18/2019 Before Quitting, Smoked How Many Years? 17 Information not available 11/18/2019 How Much Tobacco Do You Smoke? No Information not available 11/18/2019 Sex: Unknown Functional Status Question Answer Note LastModified by Organization D etails LastModified Time What is your exercise level? None Information not available 11/18/2019 Mental Status None recorded. Family History Relationship Description Onset Age of this Age Resolved Age Notes LastModified by Organization Details LastModified Time Brother Malignant neoplastic disease Not available 2019 12:21:54 Mother Malignant neoplastic disease Not available 2019 12:21:54 Sister Cerebrovascu lar accident Not available 07/2019 12:22:01 Medical History Condition Response Tuberculosis or TB N Heart Problems N Ulcers on Legs or Feet N Coronary Artery Disease N HIV or AIDS N Seizure Disorder N Gout N High Blood Pressure Y Clot in Lung or Pulmonary Embolism N Menopause N Lung Condition Y Phlebitis or Venous Blood Clot Y Migraines N Depression Y Pacemaker N Anemia N Back Pain N Neurologic Disease Y Sciatica N Heart Attack (HI) N Diabetes Y Urinary Tract Infections N Anxiety Disorder Y Bleeding Disorder Y Arthritis N Abuse of Alcohol or Drugs Y Back injury N Ear Problems N Cancer N Dementia N Eye Problems N Stroke Y Stomach Problems Y Peripheral Vascular Disease N Sinus Conditions N Broken Bone N Thyroid Disorder Y High Cholesterol Y Hepatitis N Liver Disease N Heart Disease N Rheumatoid Arthritis N Rash Y Osteoporosis N Kidney Disease Y Past Encounters Encounter ID Performer Location Encounter Start Date Encounter Closed Date Diagnosis/Indication Diagnosis SNOMED-CT Code Diagnosis ICD10 Code Diagnosis Note [id number] Michelle Spangler D[facility] [address] [place] [address] 11/18/2019 12:00:36 11/18/2019 13:10:53 Disorder of nervous system due to type 2 diabetes mellitus 952843454 E11.49 Diabetic foot ulcer 3710 27917 E13.621 Hammer toe 829494869 M20 .41 M20.42 Amputated big toe 955709 007 Z89.411 Pain in right foot 35058 45617 35535 M79.671 Pain in left foot 339238 2678 23801 M79.672 Ulcer of toe 776395063 L 97.518 [id number] Michelle Spangler D[facility] [address] [place] [address] 11/25/2019 14:24:18 11/25/2019 14:52:22 Disorder of nervous system due to type 2 diabetes mellitus 787111661 E11.49 Diabetic foot ulcer 3710 85484 E13.621 Hammer toe 783194097 M20 .41 M20.42 Amputated big toe 481208 007 Z89.411 Pain in right foot 95159 87090 41161 M79.671 Pain in left foot 168185 1399 78078 M79.672 Ulcer of toe 614946772 L 97.518 [id number] EUN Keith [address] [place] [address] 12/02/2019 14:37:47 12/02/2019 14:56:40 Disorder of nervous system due to type 2 diabetes mellitus 442126367 E11.49 Diabetic foot ulcer 3710 19341 E13.621 Ulcer of toe 743795559 L 97.518 [id number] EUN Keith [address] [place] [address] 01/05/2020 16:35:48 01/05/2020 16:52:28 Disorder of nervous system due to type 2 diabetes mellitus 220313993 E11.49 Diabetic foot ulcer 3710 17401 E13.621 Ulcer of toe 589778524 L 97.518 [id number] EUN Keith [address] [place] [address] 1 01/13/2020 16:24:56 01/13/2020 16:59:22 Disorder of nervous system due to type 2 diabetes mellitus 049577137 E11.49 Diabetic foot ulcer 3710 11355 E13.621 Ulcer of toe 137092525 L 97.518 Health Concerns Section Related Observation LastModified by Organization Detai ls LastModified Time None Recorded Concern Status LastModified by Organization Details LastModified Time None Recorded Advance Directives Directive None Recorded Payers Encounter Date Sequence Insurance Name Policy Number Policy Bailey Covered Member ID Bailey Member ID Guarantor Name 11/18/2019 1 [facility] (MEDICARE REPLACEMENT/A DVANTAGE - PPO) [id number] Tae Kent [id number] Tae Kent 11/25/2019 1 [facility] (MEDICARE REPLACEMENT/A DVANTAGE - PPO) [id number] Tae Kent [id number] aTe Kent 12/02/2019 1 [facility] (MEDICARE REPLACEMENT/A DVANTAGE - PPO) [id number] Tae Kent [id number] Tae Kent 01/05/2020 1 [facility] (MEDICARE REPLACEMENT/A DVANTAGE - PPO) [id number] Tae Kent [id number] Tae Kent 01/13/2020 1 [facility] (MEDICARE REPLACEMENT/A DVANTAGE - PPO) [id number] Tae Kent [id number] Tae Yoli Notes Date Note Type Note Provider Name and Address Organization Details Recorded Time 11/18/2019 text/html [place]/ Call[facility] / UlcersReported bypatient.Location:r ight: second toe (really hurts; the L2 hurts but to a lesser degree. Has neuropathy of hands and feet. Has not been in pain mgmt but has had an opiod addiction.); R foot remains swollen. Quality:aching; throbbing; sharp (stabbing feeling); worsening Current Severity:moderate Duration:11 months Onset/Timing:abrupt onset (surgery made the right toes worse he says and he needed to get an amputation of the R1 toe.); Pt relates: He had hammer toes on the R foot so had hammer toe surgery with pins in all 5 toes. The pins were pulled after one week he said. Then the big toe got infected down to bone and the bone was visible in the wound . He had a PICC line, IV antibiotics and an amputation of the R hallux in August 2019. He is concerned that the foot and toes are still swollen. Context:deformity (toes are still crooked after surgery he says they did not improve at all.) Aggravating factors:standing; pressure; walking; weightbearing; Cannot find a shoe to fit R. He is wearing his surgical shoe. Alleviating factors:nothing helps Associated Symptoms:swelling (on the entire R foot); throbbing / aching; numbness/tingling Prior Imagingnone (here) Past Treatments:2 surgeries: Hammer toe surgery on the R1,2,3,4,5 toes in March 2020. Then amputation on the R1 toe August 2019.Notes:He was tx'd for DM but then lost a lot of weight. He has not had a HbA1c test in years. He says if he eats something sweet he feels sick and his blood sugar goes up to over 200mg/dL. DANI Drake - [facility] 11/18/2019 14:04:56 11/25/2019 text/html [place]/ Callus / UlcersReported bypatient.Location:r ight: second toe (really hurts; the L2 hurts but to a lesser degree) Quality:aching; throbbing; sharp (stabbing feeling); improving Current Severity:moderate Duration:11 months Onset/Timing:abrupt onset (surgery made the right toes worse he says and he needed to get an amputation of the R1 toe.); Pt relates: He had hammer toes on the R foot so had hammer toe surgery with pins in all 5 toes. The pins were pulled after one week he said. Then the big toe got infected down to bone and the bone was visible in the wound . He had a PICC line, IV antibiotics and an amputation of the R hallux in August 2019. He is concerned that the foot and toes are still swollen. Context:deformity (toes are still crooked after surgery he says they did not improve at all.) Aggravating factors:standing; pressure; walking; weightbearing; silicone buttress pad hurts it more. He is wearing his surgical shoe. Alleviating factors:limited weight bearing; sx shoe Associated Symptoms:swelling (on the entire R foot); throbbing / aching; numbness/tingling Prior Imagingx ray Past Treatments:2 surgeries: Hammer toe surgery on the R1,2,3,4,5 toes in March 2020. Then amputation on the R1 toe August 2019.Notes:He was tx'd for DM but then lost a lot of weight. He has not had a HbA1c test in years. He says if he eats something sweet he feels sick and his blood sugar goes up to over 200mg/dL. Present today c/o stabbing pain at amputation of R 1 Michelle tobias [facility] 11/25/2019 15:25:37 12/02/2019 text/html [place]/ Callus / UlcersReported bypatient.Location:r ight: second toe (and all the other toes hurt.) Quality:aching; throbbing; sharp (stabbing feeling); improving Current Severity:moderate Duration:11 months Onset/Timing:abrupt onset (surgery made the right toes worse he says and he needed to get an amputation of the R1 toe.) Context:deformity (toes are still crooked after surgery he says they did not improve at all.) Aggravating factors:standing; pressure; walking; weightbearing; silicone buttress pad hurts it more. He is wearing his surgical shoe. Alleviating factors:limited weight bearing; sx shoe Associated Symptoms:swelling (on the entire R foot); throbbing / aching; numbness/tingling Prior Imagingx ray Past Treatments:2 surgeries: Hammer toe surgery on the R1,2,3,4,5 toes in March 2020. Then amputation on the R1 toe August 2019.Notes:He was tx'd for DM but then lost a lot of weight. He has not had a HbA1c test in years. He says if he eats something sweet he feels sick and his blood sugar goes up to over 200mg/dL. Present today c/o stabbing pain at amputation of R 1 Michelle tobias [facility] [employer] [facility] 12/02/2019 16:49:41 01/05/2020 text/html [place]/ Callus / UlcersReported bypatient.Location:r ight: second toe (burning) Quality:unchanged Current Severity:mild Duration:11 months Onset/Timing:abrupt onset (surgery made the right toes worse he says and he needed to get an amputation of the R1 toe.) Context:deformity (toes are still crooked after surgery he says they did not improve at all.) Aggravating factors:standing; pressure; walking; weightbearing; silicone buttress pad hurts it more. He is wearing his surgical shoe. Alleviating factors:limited weight bearing; sx shoe Associated Symptoms:swelling (on the entire R foot); throbbing / aching; numbness/tingling; His last tx date was December 01, he was advised then to rtc in one week. Prior Imagingx ray; lab work was ordered on 11/24 to look at healing factors but he has not had it done yet. Past Treatments:2 surgeries: Hammer toe surgery on the R1,2,3,4,5 toes in March 2020. Then amputation on the R1 toe August 2019.Notes:He was tx'd for DM but then lost a lot of weight. He has not had a HbA1c test in years. He says if he eats something sweet he feels sick and his blood sugar goes up to over 200mg/dL. Present today c/o burning sensation of R 2 and tender DANI Drake [facility] [employer] [facility] 01/06/2020 10:34:57 01/13/2020 text/html [place]/ Callus / UlcersReported bypatient.Location:r ight: second toe (burning) Quality:unchanged Current Severity:mild Duration:11 months Onset/Timing:abrupt onset (surgery made the right toes worse he says and he needed to get an amputation of the R1 toe.) Context:deformity (toes are still crooked after surgery he says they did not improve at all.) Aggravating factors:standing; pressure; walking; weightbearing; silicone buttress pad hurts it more. He is wearing his surgical shoe. Alleviating factors:limited weight bearing; sx shoe Associated Symptoms:swelling (on the entire R foot); throbbing / aching; numbness/tingling; His last tx date was December 01, he was advised then to rtc in one week. Prior Imagingx ray; lab work was ordered on 11/24 to look at healing factors but he has not had it done yet. Past Treatments:2 surgeries: Hammer toe surgery on the R1,2,3,4,5 toes in March 2020. Then amputation on the R1 toe August 2019.Notes: Present today wearing surgical boot states it hurts to walk on f/u burning sensation of R 2 and tender DANI Drake [facility] 01/13/2020 17:48:34
--- OUTSIDE RECORDS SUMMARY | 2024-10-16 21:28 | XMS_ITS | Encounter Summary ---
Author Organization [facility] Address [address] [place] [address] Phone Care Team Providers Care Retail Loss Prevention Specialist Name Role Phone Jabier Peck MD Primary Care Provider [phone] Srikanth Adrian MD Unavailable Tad Romero MD Primary Care Provider [phone] Gloria Martinez MD Unavailable [phone] Reason for Visit * Reason Comments Medication Refill Encounter Details Date Type Department Care Team (Late st Contact Info) Description 05/14/2022 Refill [facility] #2 [place] [address] Jabier Peck MD #[address] [address] Medication Refill Social History Tobacco Use Types [...] CDT Gender Identity Male 05/03/2023 12:44 PM WORKSITE WELLNESS PRACTITIONER Sexual Orientation Lesbian or Wolff 05/03/2023 12 :44 PM WORKSITE WELLNESS PRACTITIONER COVID-19 Exposure Response Date Recorded In the last 10 days, have yo u been in contact with someone who was confirmed or suspected to have Coronavirus/COVID-19? No / Unsure 05/10/2022 2:32 PM WORKSITE WELLNESS PRACTITIONER documented as of this encounter Miscellaneous Notes * Telephone Encounter - Anjali Hartely RN - 05/15/2022 9:34 AM WORKSITE WELLNESS PRACTITIONER PDMP 04/18/2022 #45, 15 day supply. Medication failed the protocol, provider to review and approve the medication order if appropriate. Requested Prescriptions Pending Prescriptions Disp Refills methocarbamol (ROBAXIN) 750 MG Tablet [Pharmacy Med Name: METHOCARBAMOL 750 MG TABLET] 45 Tablet 1 Sig: TAKE 1 TABLET BY MOUTH THREE TIMES A DAY NEEDED FOR MUSCLE SPASM Not Delegated - Muscle Relaxants Protocol Failed - 05/14/2022 10:46 AM Failed - This refill cannot be [...] [facility] 12/13/21 Telemedicine Kishore Prieto APRN, RICHARD [facility] 08/01/21 Office Visit Jabier Peck MD [facility] Showing recent visits within past 365 days and meeting all other requirements Future Appointments Date Type Provider Dept 06/14/22 Appointment Kishore Prieto APRN, RICHARD [facility] Showing future appointments within next 90 days and meeting all other requirements SITE WELLNESS PRACTITIONER documented in this encounter Plan of Treatment Upcoming Encounters Date Type Department Care Team (Late st Contact Info) Description 10/17/2024 1:00 PM CDT Procedure Visit [facility] #[address] [place] [address] Gloria Martinez MD #2 [facility] [address] [place] [address] documented as of this encounter Visit Diagnoses Diagnosis Cervical radiculopathy Brachial neuritis or radiculitis nos Penile mass- Primary Unspecified disorder of penis documented in this encounter Additional Health Concerns Infection Onset Date Last Indicated Resolved Time COVID - 19 Confirmed 05/31/2022 05/31/2022 023 12:16 AM WORKSITE WELLNESS PRACTITIONER Respiratory Rule Out - RPA 02/26/2023 02/26/2023 0 02/26/2023 11:31 AM CDT COVID - 19 02/26/2023 02/26/2023 03/08/2023 12:1 6 AM CDT documented as of this encounter Care Teams Retail Loss Prevention Specialist Relationship Specialty Start Date End Date Jabier Peck MD #2 [facility] [address] [place] [address] PCP - General Family Medicine 06/22/20 01/16/24 Tad Mcintosh MD [address] [place] [address] PCP - General Family Medicine 01/17/24 Srikanth Adrian MD #2 [facility] [facility] [address] [place] [address] School Speech Language Pathologist Cardiovascular Disease - Cardiology 02/02/22 08/06/24 Gloria Martinez MD #2 [facility] [address] [place] [address] Consulting Physician Urology 04/30/24 documented as of this encounter
--- OUTSIDE RECORDS SUMMARY | 2024-10-16 21:28 | XMS_ITS | Encounter Summary ---
Author Organization [facility] Address [address] [place] [address] Phone Care Team Providers Care Milker Machine Name Role Phone Jabier Peck MD Primary Care Provider [phone] Srikanth Adrian MD Unavailable Tad Romero MD Primary Care Provider [phone] Gloria Martinez MD Unavailable [phone] Reason for Visit * Reason Comments Medication Refill Encounter Details Date Type Department Care Team (Late st Contact Info) Description 06/21/2022 Refill [facility] #2 [place] [address] Jabier Peck MD #[address] [address] Medication Refill Social History Tobacco Use Types [...] CDT Gender Identity Male 05/03/2023 12:44 PM TRUST MANAGER ASSISTANT Sexual Orientation Lesbian or Wolff 05/03/2023 12 :44 PM TRUST MANAGER ASSISTANT COVID-19 Exposure Response Date Recorded In the last 10 days, have yo u been in contact with someone who was confirmed or suspected to have Coronavirus/COVID-19? Yes 05/31/2022 2:12 PM TRUST MANAGER ASSISTANT documented as of this encounter Miscellaneous Notes * Telephone Encounter - Libertad Shearer RN - 06/21/2022 1:33 PM CST Name from pharmacy: [facility] MCG CAPSULE Will file in chart as: [facility] MCG Capsule The original prescription was discontinued on 02/24/2022 by Kishore Prieto APRN, RICHARD for thefollowing reason: Med List Clean Up. Renewing this prescription may not be appropriate. T MANAGER ASSISTANT documented in this encounter Plan of Treatment Upcoming Encounters Date Type Department Care Team (Late st Contact Info) Description 10/17/2024 1:00 PM CDT Procedure Visit [facility] #2 [place] [phone] Gloria Martinez MD #2 [facility] [address] [place] [address] documented as of this encounter Visit Diagnoses Not on filedocumented in this encounter Additional Health Concerns Infection Onset Date Last Indicated Resolved Time Respiratory Rule Out - RPA 02/26/2023 02/26/2023 0 02/26/2023 11:31 AM CDT COVID - 19 02/26/2023 02/26/2023 03/08/2023 12:1 6 AM CDT documented as of this encounter Care Teams Milker Machine Relationship Specialty Start Date End Date Jabier Peck MD #2 [facility] [address] [place] [address] PCP - General Family Medicine 06/22/20 01/16/24 Tad Mcintosh MD [address] [place] [address] PCP - General Family Medicine 01/17/24 Srikanth Adrian MD #2 [facility] [address] [place] [address] Action Installer Cardiovascular Disease - Cardiology 02/02/22 08/06/24 Gloria Martinez MD #2 [facility] [address] [place] [address] Consulting Physician Urology 04/30/24 documented as of this encounter
--- OUTSIDE RECORDS SUMMARY | 2024-10-16 21:28 | XMS_ITS | Encounter Summary ---
Author Organization [facility] Address [address] [place] [address] Phone Care Team Providers Care Liquid Compounder Name Role Phone Jabier Peck MD Primary Care Provider [phone] Srikanth Adrian MD Unavailable Tad Romero MD Primary Care Provider [phone] Gloria Martinez MD Unavailable [phone] Reason for Visit * Reason Comments Medication Refill Encounter Details Date Type Department Care Team (Late st Contact Info) Description 06/20/2022 Refill [facility] #2 [place] [address] Jabier Peck MD #[address] [address] Medication Refill Social History Tobacco Use Types [...] CDT Gender Identity Male 05/03/2023 12:44 PM DONOR PROCESSOR Sexual Orientation Lesbian or Wolff 05/03/2023 12 :44 PM DONOR PROCESSOR COVID-19 Exposure Response Date Recorded In the last 10 days, have yo u been in contact with someone who was confirmed or suspected to have Coronavirus/COVID-19? Yes 05/31/2022 2:12 PM DONOR PROCESSOR documented as of this encounter Miscellaneous Notes * Telephone Encounter - Libertad Shearer RN - 06/21/2022 8:33 AM CST Medication failed the protocol, provider to review and approve the medication order if appropriate. Requested Prescriptions Pending Prescriptions Disp Refills methocarbamol (ROBAXIN) 750 MG Tablet [Pharmacy Med Name: METHOCARBAMOL 750 MG TABLET] 45 Tablet 1 Sig: TAKE 1 TABLET BY MOUTH THREE TIMES A DAY NEEDED FOR MUSCLE SPASM Not Delegated - Muscle Relaxants Protocol Failed - 06/20/2022 9:56 AM Failed - This refill cannot be delegated Passed - Visit with relevant provider in past 12 months or upcoming 90 days Recent Visits Date Type Provider Dept 05/03/22 Telemedicine Jabier Peck MD [facility] 03/03/22 Office Visit Jabier Peck MD [facility] 02/24/22 Office Visit Kishore Prieto APRN, RICHARD [facility] 01/31/22 Office Visit Kishore Prieto APRN, RICHARD [facility] 12/13/21 Telemedicine Kishore Prieto APRN, RICHARD [facility] 08/01/21 Office Visit Jabier Peck MD [facility] Showing recent visits within past 365 days and meeting all other requirements Future Appointments Date Type Provider Dept 06/27/22 Appointment Kishore Prieto APRN, RICHARD [facility] Showing future appointments within next 90 days and meeting all other requirements R PROCESSOR documented in this encounter Plan of Treatment Upcoming Encounters Date Type Department Care Team (Late st Contact Info) Description 10/17/2024 1:00 PM CDT Procedure Visit [facility] #[address] [place] [address] Gloria Martinez MD #2 [facility] [address] [place] [address] documented as of this encounter Visit Diagnoses Diagnosis Cervical radiculopathy Brachial neuritis or radiculitis nos Penile mass- Primary Unspecified disorder of penis documented in this encounter Additional Health Concerns Infection Onset Date Last Indicated Resolved Time COVID - 19 Confirmed 05/31/2022 05/31/2022 023 12:16 AM DONOR PROCESSOR Respiratory Rule Out - RPA 02/26/2023 02/26/2023 0 02/26/2023 11:31 AM CDT COVID - 19 02/26/2023 02/26/2023 03/08/2023 12:1 6 AM CDT documented as of this encounter Care Teams Liquid Compounder Relationship Specialty Start Date End Date Jabier Peck MD #2 [facility] [address] [place] [address] PCP - General Family Medicine 06/22/20 01/16/24 Tad Mcintosh MD [address] [place] [address] PCP - General Family Medicine 01/17/24 Srikanth Adrian MD #2 [facility] [address] [place] [address] Computer Programming Supervisor Cardiovascular Disease - Cardiology 02/02/22 08/06/24 Gloria Martinez MD #[address] [address] Consulting Physician Urology 04/30/24 documented as of this encounter
--- OUTSIDE RECORDS SUMMARY | 2024-10-16 21:28 | XMS_ITS | Encounter Summary ---
Author Organization [facility] Address [address] [place] [address] Phone Care Team Providers Care Energy Efficiency Specialist Name Role Phone Jabier Peck MD Primary Care Provider [phone] Srikanth Adrian MD Unavailable Tad Romero MD Primary Care Provider [phone] Gloria Martinez MD Unavailable [phone] Reason for Visit * Reason Comments Medication Refill Encounter Details Date Type Department Care Team (Late st Contact Info) Description 08/30/2022 Refill [facility] #2 [place] [address] Jabier Peck MD #[address] [address] Medication Refill Social History Tobacco Use Types [...] CDT Gender Identity Male 05/03/2023 12:44 PM INSIDE SALES DIRECTOR Sexual Orientation Lesbian or Wolff 05/03/2023 12 :44 PM INSIDE SALES DIRECTOR COVID-19 Exposure Response Date Recorded In the last 10 days, have yo u been in contact with someone who was confirmed or suspected to have Coronavirus/COVID-19? No / Unsure 08/21/2022 12:53 PM INSIDE SALES DIRECTOR documented as of this encounter Miscellaneous Notes * Telephone Encounter - Anjali Hartley RN - 08/31/2022 9:07 AM CDT Medication failed the protocol, provider to review and approve the medication order if appropriate. Requested Prescriptions Pending Prescriptions Disp Refills gabapentin (NEURONTIN) 600 MG Tablet [Pharmacy Med Name: GABAPENTIN 600 MG TABLET] 90 Tablet 5 Sig: TAKE 1 TABLET BY MOUTH THREE TIMES A DAY Not Delegated - Anticonvulsants Excluding Benzodiazepines Protocol Failed - 08/30/2022 1:55 PM Failed - This refill cannot be [...] 01/31/22 Office Visit Kishore Prieto APRN, RICHARD [facility] 12/13/21 Telemedicine Kishore Priteo APRN, ASSOCIATE PROFESSOR OF VIOLIN [facility] Showing recent visits within past 365 [...] PM CDT Procedure Visit [facility] #[address] [place] [address] Gloria Martinez MD #2 [facility] [address] [place] [address] documented as of this encounter Visit Diagnoses [...] documented as of this encounter Care Teams Energy Efficiency Specialist Relationship Specialty Start Date End Date Jabier Peck MD #2 [facility] [address] [place] [address] PCP - General Family Medicine 06/22/20 01/16/24 Tad Mcintosh MD [address] [place] [address] PCP - General Family Medicine 01/17/24 Srikanth Adrian MD #2 [facility] [address] [place] [address] Hoop Riveting Machine Operator Cardiovascular Disease - Cardiology 02/02/22 08/06/24 Gloria Martinez MD #2 [facility] [address] [place] [address] Consulting Physician Urology 04/30/24 documented as of this encounter
== END 2024-10-16 21:25 | disposition home or self-care (01) ==
LOC: CHSIMG 21:25
PROVIDERS: PCP Family Medicine; Visit Provider Family Medicine
DX: Z12.2 Encounter for screening for malignant neoplasm of respiratory organs (principal); Z87.891 Personal history of nicotine dependence
CPT/HCPCS: 71271

== ENCOUNTER 2024-10-25 06:59 | Outpatient (CLI) | payer MEDICARE, MEDICAID, SELFPAY ==
--- NOTE | ~2024-10-25 | MR_ITS ---
MRI of the brain Clinical History: Tremors Technique: Axial and sagittal T1-weighted images were acquired. These were followed by axial T2-weigh john, diffusion weighted, gradient, and FLAIR images. Findings: There is no acute infarct, intracranial hemorrhage, or mass lesion. There are mild chronic white matter changes in the periventricular white matter bilaterally. Ventricles are spaces are mildly dilated. Orbits are unremarkable. Paranasal sinuses and mastoid air cells are clear. Major intracranial flow voids are intact. Sagittal midline structures are intact. IMPRESSION: No acute infarct, intracranial hemorrhage, or mass lesion. Mild chronic microvascular ischemic changes and mild generalized atrophy. Reviewed, dictated and finalized at location .
--- OUTSIDE RECORDS SUMMARY | 2024-10-25 07:01 | XMS_ITS | Encounter Summary ---
Author Organization [facility] Address [address] [place] [address] Phone Care Team Providers Care Roll Hauler Name Role Phone Jabier Peck MD Primary Care Provider [phone] Srikanth Adrian MD Unavailable Tad Romero MD Primary Care Provider [phone] Gloria Martinez MD Unavailable [phone] Reason for Visit * Reason Comments Medication Refill Encounter Details Date Type Department Care Team (Late st Contact Info) Description 08/19/2021 Refill [facility] #2 [place] [address] Jabier Peck MD #[address] [address] Medication Refill Social History Tobacco Use Types [...] CDT Gender Identity Male 05/03/2023 12:44 PM PRE CODER Sexual Orientation Lesbian or Wolff 05/03/2023 12 :44 PM PRE CODER COVID-19 Exposure Response Date Recorded In the last month, have you been in contact with someone who was confirmed or suspected to have Coronavirus / COVID-19? No / Unsure 08/01/2021 1:35 PM PRE CODER documented as of this encounter Miscellaneous Notes [...] [place] 08/20/20 Telemedicine Kishore Prieto APRN, RICHARD [facility] Showing recent visits within past 365 days and meeting all other requirements Future Appointments Date Type Provider Dept 10/31/21 Appointment Jabier Peck MD [facility] Showing future appointments within next 90 days and meeting all other requirements CODER documented in this encounter Plan of Treatment Not on file documented as of this encounter Visit Diagnoses Diagnosis Cervical radiculopathy Brachial neuritis or radiculitis nos documented in this encounter Additional Health Concerns Infection Onset Date Last Indicated Resolved Time COVID - 19 Confirmed 05/31/2022 05/31/2022 023 12:16 AM PRE CODER Respiratory Rule Out - RPA 02/26/2023 02/26/2023 0 02/26/2023 11:31 AM CDT COVID - 19 02/26/2023 02/26/2023 03/08/2023 12:1 6 AM CDT documented as of this encounter Care Teams Roll Hauler Relationship Specialty Start Date End Date Jabier Peck MD #2 [facility] [address] [place] [address] PCP - General Family Medicine 06/22/20 01/16/24 Tad Mcintosh MD [address] [place] [address] PCP - General Family Medicine 01/17/24 Srikanth Adrian MD #2 [facility] [address] [place] [address] Child Life Assistant Cardiovascular Disease - Cardiology 02/02/22 08/06/24 Gloria Martinez MD #2 [facility] [address] [place] [address] Consulting Physician Urology 04/30/24 documented as of this encounter
--- OUTSIDE RECORDS SUMMARY | 2024-10-25 07:01 | XMS_ITS | Encounter Summary ---
Author Organization [facility] Address [address] [place] [address] Phone Care Team Providers Care Furniture Packer Name Role Phone Jabier Peck MD Primary Care Provider [phone] Srikanth Adrian MD Unavailable Tad Romero MD Primary Care Provider [phone] Gloria Martinez MD Unavailable [phone] Reason for Visit * Reason Comments Medication Refill Encounter Details Date Type Department Care Team (Late st Contact Info) Description 09/22/2021 Refill [facility] #2 [place] [address] Jabier Peck MD #[address] [address] Medication Refill Social History Tobacco Use Types [...] CDT Gender Identity Male 05/03/2023 12:44 PM IT TRAINER Sexual Orientation Lesbian or Wolff 05/03/2023 12 :44 PM IT TRAINER COVID-19 Exposure Response Date Recorded In the [...] 19 Confirmed 05/31/2022 05/31/2022 023 12:16 AM IT TRAINER Respiratory Rule Out - RPA 02/26/2023 02/26/2023 0 02/26/2023 11:31 AM CDT COVID - 19 02/26/2023 02/26/2023 03/08/2023 12:1 6 AM CDT documented as of this encounter Care Teams Furniture Packer Relationship Specialty Start Date End Date Jabier Peck MD #2 [facility] [address] [place] [address] PCP - General Family Medicine 06/22/20 01/16/24 Tad Mcintosh MD [address] [place] [address] PCP - General Family Medicine 01/17/24 Srikanth Adrian MD #2 [facility] [address] [place] [address] Icebox Worker Cardiovascular Disease - Cardiology 02/02/22 08/06/24 Gloria Martinez MD #2 [facility] [address] [place] [address] Consulting Physician Urology 04/30/24 documented as of this encounter
--- OUTSIDE RECORDS SUMMARY | 2024-10-25 07:02 | XMS_ITS | Encounter Summary ---
Author Organization [facility] Address [address] [place] [address] [place] [address] Phone Care Team Providers Care Technical Consultant Name Role Phone Jabier Peck MD Primary Care Provider [phone] Srikanth Adrian MD Unavailable Tad Romero MD Primary Care Provider [phone] Gloria Martinez MD Unavailable [phone] Reason for Visit * Reason Onset Date Comments Medication Refill 12/28/2021 Encounter Details Date Type Department Care Team (Late st Contact Info) Description 12/28/2021 Refill [facility] - Family Medicine [facility] #2 [place] [address] Jabier Peck MD #[address] [address] Medication Refill Social History Tobacco Use Types [...] CDT Gender Identity Male 05/03/2023 12:44 PM AVIATION SAFETY INSPECTOR Sexual Orientation Lesbian or Wolff 05/03/2023 12 :44 PM AVIATION SAFETY INSPECTOR COVID-19 Exposure Response Date Recorded In the [...] 19 Confirmed 05/31/2022 05/31/2022 023 12:16 AM AVIATION SAFETY INSPECTOR Respiratory Rule Out - RPA 02/26/2023 02/26/2023 0 02/26/2023 11:31 AM CDT COVID - 19 02/26/2023 02/26/2023 03/08/2023 12:1 6 AM CDT documented as of this encounter Care Teams Technical Consultant Relationship Specialty Start Date End Date Jabier Peck MD #[address] [address] PCP - General Family Medicine 06/22/20 01/16/24 Tad Mcintosh MD [address] [place] [address] PCP - General Family Medicine 01/17/24 Srikanth Adrian MD #[address] [address] Ski Maker Wood Cardiovascular Disease - Cardiology 02/02/22 08/06/24 Gloria Martinez MD #2 [facility] [address] [place] [address] Consulting Physician Urology 04/30/24 documented as of this encounter
--- OUTSIDE RECORDS SUMMARY | 2024-10-25 07:02 | XMS_ITS | Encounter Summary ---
Author Organization [facility] Address [address] [facility] [place] [address] Phone Care Team Providers Care Kennel Worker Name Role Phone Jabier Peck MD Primary Care Provider [phone] Srikanth Adrian MD Unavailable Tad Romero MD Primary Care Provider [phone] Gloria Martinez MD Unavailable [phone] Reason for Visit * Reason Comments Medication Refill Encounter Details Date Type Department Care Team (Late st Contact Info) Description 07/22/2021 [facility]ill [facility] [address] [place] [address] Jt Morillo MD [address] [place] [address] Medication Refill Social History Tobacco Use Types [...] CDT Gender Identity Male 05/03/2023 12:44 PM DEICER REPAIRER PNEUMATIC Sexual Orientation Lesbian or Wolff 05/03/2023 12 :44 PM DEICER REPAIRER PNEUMATIC COVID-19 Exposure Response Date Recorded In the last month, have you been in contact with someone who was confirmed or suspected to have Coronavirus / COVID-19? No / Unsure 07/14/2021 12:17 PM DEICER REPAIRER PNEUMATIC documented as of this encounter Miscellaneous Notes * Telephone Encounter - Michelle Wharton RN - 07/22/2021 2:26 PM DEICER REPAIRER PNEUMATIC Refilled Eliquis ER REPAIRER PNEUMATIC documented in this encounter Plan of Treatment Not on file documented as of this encounter Visit Diagnoses Diagnosis History of thrombophilia associated with MTHFR mutation documented in this encounter Additional Health Concerns Infection Onset Date Last Indicated Resolved Time COVID - 19 Confirmed 05/31/2022 05/31/2022 023 12:16 AM DEICER REPAIRER PNEUMATIC Respiratory Rule Out - RPA 02/26/2023 02/26/2023 0 02/26/2023 11:31 AM CDT COVID - 19 02/26/2023 02/26/2023 03/08/2023 12:1 6 AM CDT documented as of this encounter Care Teams Kennel Worker Relationship Specialty Start Date End Date Jabier Peck MD #2 [facility] [address] [place] [address] PCP - General Family Medicine 06/22/20 01/16/24 Tad Mcintosh MD [address] [place] [address] PCP - General Family Medicine 01/17/24 Srikanth Adrian MD #2 [facility] [address] [place] [address] Community Service Technician Cardiovascular Disease - Cardiology 02/02/22 08/06/24 Gloria Martinez MD #2 [facility] [address] [place] [address] Consulting Physician Urology 04/30/24 documented as of this encounter
--- OUTSIDE RECORDS SUMMARY | 2024-10-25 07:02 | XMS_ITS | Encounter Summary ---
Author Organization [facility] Address [address] [place] [address] Phone Care Team Providers Care Gateman Name Role Phone Jabier Peck MD Primary Care Provider [phone] Srikanth Adrian MD Unavailable Tad Romero MD Primary Care Provider [phone] Gloria Martinez MD Unavailable [phone] Reason for Visit * Reason Onset Date Comments Medication Refill 03/23/2021 Encounter Details Date Type Department Care Team (Late st Contact Info) Description 03/23/2021 Refill [facility] Medical [facility] - Family Medicine [facility] #2 [place] [address] Jabier Peck MD #[address] [address] Medication Refill Social History Tobacco Use Types [...] CDT Gender Identity Male 05/03/2023 12:44 PM EXPLOSIVE ORDNANCE TECHNICIAN Sexual Orientation Lesbian or Wolff 05/03/2023 12 :44 PM EXPLOSIVE ORDNANCE TECHNICIAN COVID-19 Exposure Response Date Recorded In the [...] Outpatient Visits 1 week ago Cervical radiculopathy [facility] - Kishore Alonso APN, MACHINE SHORTHAND REPORTER 4 months ago Dermatitis [facility] - Kishore Alonso APN, MACHINE SHORTHAND REPORTER 5 months ago Diet-controlled diabetes mellitus (HCC) [facility] - Jabier Aldridge MD 7 months ago Thrombophilia (HCC) [facility] - Kishore Alonso APN, MACHINE SHORTHAND REPORTER 7 months ago Obstructive sleep apnea syndrome [facility] - [facility] Morgan APN, MACHINE SHORTHAND REPORTER Upcoming Appointments Future Appointments Tomorrow [facility] RESP ROOM1 [facility] Respiratory Therapy, [facility] In 1 week Sofy Bowen, PT [facility] Rehab at [facility], [facility] In 2 weeks Jabier Peck MD [facility] Family Medicine [facility] In 1 month Aria Delong COST ACCOUNTING ANALYST, MODEL MAKER SCALE [facility] Neurology [facility] In 5 months Jt Morillo MD [facility] Oncology Services, [facility] TRAFFIC ENGINEER - Recent and Past Visits Recent Visits Date Type Provider Dept 03/16/21 Office Visit Kishore Prieto APN, RICHARD [facility] 11/16/20 Office Visit Kishore Prieto APN, RICHARD [facility] 10/20/20 Office Visit Jabier Peck MD [facility] 08/20/20 Telemedicine Kishore Prieto APN, RICHARD [facility] 08/06/20 Telemedicine Kishore Prieto APN, RICHARD [facility] 06/22/20 Office Visit Kishore Prieto APN, RICHARD [facility] Showing recent visits within past 460 days with a meds authorizing provider and meeting all other requirements Future Appointments Date Type Provider Dept 04/08/21 Appointment Jabier Peck MD [facility] [place] Showing future appointments within next 90 [...] physician/MARVA review. Refill encounter routed to nurse Fields's pool for processing. documented in this encounter Plan of Treatment Not on file documented as of this encounter Visit Diagnoses Not on filedocumented in this encounter Additional Health Concerns Infection Onset Date Last Indicated Resolved Time COVID - 19 Confirmed 05/31/2022 05/31/2022 023 12:16 AM EXPLOSIVE ORDNANCE TECHNICIAN Respiratory Rule Out - RPA 02/26/2023 02/26/2023 0 02/26/2023 11:31 AM CDT COVID - 02/26/2023 02/26/2023 03/08/2023 12:1 6 AM CDT documented as of this encounter Care Teams Gateman Relationship Specialty Start Date End Date Jabier Peck MD #2 [facility] [address] [place] [address] PCP - General Family Medicine 06/22/20 01/16/24 Tad Mcintosh MD [address] [place] [address] PCP - General Family Medicine 01/17/24 Srikanth Adrian MD #[address] [address] Grant Officer Cardiovascular Disease - Cardiology 02/02/22 08/06/24 Gloria Martinez MD #[address] [address] Consulting Physician Urology 04/30/24 documented as of this encounter
--- OUTSIDE RECORDS SUMMARY | 2024-10-25 07:02 | XMS_ITS | Encounter Summary ---
Author Organization [facility] Address [address] [place] [address] Phone Care Team Providers Care Striker Off Name Role Phone Tad Mcintosh MD Primary Care Provider [phone] Gloria Martinez MD Unavailable [phone] Reason for Visit * Reason Comments Medication Refill Encounter Details Date Type Department Care Team (Late st Contact Info) Description 10/20/2024 Refill [facility] Medical Group - Family Medicine [facility] #2 [place] [address] Jabier Peck MD #[address] [address] Medication Refill Social History Tobacco Use Types [...] CDT Gender Identity Male 05/03/2023 12:44 PM PHYSICAL THERAPY NURSE Sexual Orientation Lesbian or Wolff 05/03/2023 12 :44 PM PHYSICAL THERAPY NURSE documented as of this encounter Miscellaneous Notes * Telephone Encounter - Francine Soto RN - 10/21/2024 8:22 AM CDT PCP: Tad Mcintosh MD documented in this encounter Plan of Treatment Not on file documented as of this encounter Visit Diagnoses Not on filedocumented in this encounter Care Teams Striker Off Relationship Specialty Start Date End Date Tad Mcintosh MD [address] [place] [address] PCP - General Family Medicine 01/17/24 Gloria Martinez MD #[address] [address] Consulting Physician Urology 04/30/24 documented as of this encounter
--- OUTSIDE RECORDS SUMMARY | 2024-10-25 07:02 | XMS_ITS | Encounter Summary ---
Author Organization [facility] Address [address] [place] [address] Phone Care Team Providers Care Assigner Name Role Phone Jabier Peck MD Primary Care Provider [phone] Srikanth Adrian MD Unavailable Tad Romero MD Primary Care Provider [phone] Gloria Martinez MD Unavailable [phone] Reason for Visit * Reason Comments Medication Refill Encounter Details Date Type Department Care Team (Late st Contact Info) Description 10/21/2021 Refill [facility] Family [facility] #2 [place] [address] Jabier Peck MD #[address] [address] Medication Refill Social History Tobacco Use Types [...] CDT Gender Identity Male 05/03/2023 12:44 PM SILK TOP HAT BODY 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 [address] [place] [address] PCP - General Family Medicine 06/22/20 01/16/24 Tad Mcintosh MD [address] [place] [address] PCP - General Family Medicine 01/17/24 Srikanth Adrian MD #[address] [facility] [address] [place] [address] Radar Air Traffic Controller Cardiovascular Disease - Cardiology 02/02/22 08/06/24 Gloria Martinez MD #2 [facility] [address] [place] [address] Consulting Physician Urology 04/30/24 documented as of this encounter
--- OUTSIDE RECORDS SUMMARY | 2024-10-25 07:02 | XMS_ITS | Encounter Summary ---
Author Organization [facility] Address [address] [place] [address] Phone Care Team Providers Care Medical Administrative Assistant Name Role Phone Jabier Peck MD Primary Care Provider [phone] Srikanth Adrian MD Unavailable Tad Romero MD Primary Care Provider [phone] Gloria Martinez MD Unavailable [phone] Reason for Visit * Reason Comments Medication Refill Encounter Details Date Type Department Care Team (Late st Contact Info) Description 04/13/2023 Refill [facility] - Family [facility] #2 [place] [address] Jabier Peck MD #[address] [address] Medication Refill Social History Tobacco Use Types [...] CDT Gender Identity Male 05/03/2023 12:44 PM STOCK TRADER Sexual Orientation Lesbian or Wolff 05/03/2023 12 :44 PM STOCK TRADER documented as of this encounter Miscellaneous Notes [...] APRN, RICHARD [facility] 08/21/22 Office Visit Jabier ePck MD [facility] 07/20/22 Office Visit Gerri Rocha MD [facility] 05/03/22 Telemedicine Jabier Peck MD [facility] Showing recent [...] or radiculitis nos documented in this encounter Care Teams Medical Administrative Assistant Relationship Specialty Start Date End Date Jabier Peck MD #2 [facility] [address] [place] [address] PCP - General Family Medicine 06/22/20 01/16/24 Tad Mcintosh MD [address] [place] [address] PCP - General Family Medicine 01/17/24 Srikanth Adrian MD #2 [facility] [address] [place] [address] Global Security Architect Cardiovascular Disease - Cardiology 02/02/22 08/06/24 Gloria Martinez MD #2 [facility] [address] [place] [address] Consulting Physician Urology 04/30/24 documented as of this encounter
--- OUTSIDE RECORDS SUMMARY | 2024-10-25 07:02 | XMS_ITS | Encounter Summary ---
Author Organization [facility] Address [address] [place] [address] Phone Care Team Providers Care Health Educator Name Role Phone Jabier Peck MD Primary Care Provider [phone] Srikanth Adrian MD Unavailable Tad Romero MD Primary Care Provider [phone] Gloria Martinez MD Unavailable [phone] Reason for Visit * Reason Comments Medication Refill Encounter Details Date Type Department Care Team (Late st Contact Info) Description 03/19/2023 Refill [facility] - Family Medicine [facility] #2 [place] [address] Jabier Peck MD #[address] [address] Medication Refill Social History Tobacco Use Types [...] CDT Gender Identity Male 05/03/2023 12:44 PM PLASTICS TOOLING ENGINEER Sexual Orientation Lesbian or Wolff 05/03/2023 12 :44 PM PLASTICS TOOLING ENGINEER COVID-19 Exposure Response Date Recorded In the [...] [place] 11/30/22 Telemedicine Kishore Prieto APRN, RICHARD [facility] [place] 08/21/22 Office Visit Jabier Peck MD [facility] 07/20/22 Office Visit Gerri Rocha MD [facility] 05/03/22 Telemedicine Jabier Peck MD [facility] [place] Showing recent visits within past 365 [...] on filedocumented in this encounter Care Teams Health Educator Relationship Specialty Start Date End Date Jabier Peck MD #2 [facility] [address] [place] [address] PCP - General Family Medicine 06/22/20 01/16/24 Tad Mcintosh MD [address] [place] [address] PCP - General Family Medicine 01/17/24 Srikanth Adrian MD #2 [facility] [address] [place] [address] Ore Dressing Engineer Cardiovascular Disease - Cardiology 02/02/22 08/06/24 Gloria Martinez MD #2 [facility] [address] [place] [address] Consulting Physician Urology 04/30/24 documented as of this encounter
--- OUTSIDE RECORDS SUMMARY | 2024-10-25 07:02 | XMS_ITS | Encounter Summary ---
Author Organization [facility] Address [address] [place] [address] Phone Care Team Providers Care Stained Glass Glazier Name Role Phone Jabier Peck MD Primary Care Provider [phone] Srikanth Adrian MD Unavailable Tad Romero MD Primary Care Provider [phone] Gloria Martinez MD Unavailable [phone] Reason for Visit * Reason Comments Medication Refill Encounter Details Date Type Department Care Team (Late st Contact Info) Description 05/11/2021 Refill [facility] Medical Group - Family [facility] #2 [place] [address] Jabier Peck MD #[address] [address] Medication Refill Social History Tobacco Use Types [...] CDT Gender Identity Male 05/03/2023 12:44 PM ADMINISTRATIVE SUPPORT SPECIALIST Sexual Orientation Lesbian or Wolff 05/03/2023 12 :44 PM ADMINISTRATIVE SUPPORT SPECIALIST COVID-19 Exposure Response Date Recorded In the last month, have you been in contact with someone who was confirmed or suspected to have Coronavirus / COVID-19? No / Unsure 05/05/2021 12:33 PM ADMINISTRATIVE SUPPORT SPECIALIST documented as of this encounter Miscellaneous [...] Office Visit Kishore Prieto APRN, RICHARD [facility] 11/16/20 Office Visit Kishore Prieto APRN, RICHARD [facility] 10/20/20 Office Visit Jabier Peck MD [facility] 08/20/20 Telemedicine Kishore Prieto APRN, RICHARD [facility] 08/06/20 Telemedicine Kishore Prieto APRN, RICHARD [facility] 06/22/20 Office Visit Kishore Prieto APRN, SUMMER ASSOCIATE [facility] Showing recent visits within past 365 days and meeting all other requirements Future Appointments Date Type Provider Dept 08/01/21 Appointment Jabier Peck MD [facility] Showing future appointments within next 90 days and meeting all other requirements NISTRATIVE SUPPORT SPECIALIST documented in this encounter Plan of Treatment Not on file documented as of this encounter Visit Diagnoses Diagnosis Cervical radiculopathy Brachial neuritis or radiculitis nos documented in this encounter Additional Health Concerns Infection Onset Date Last Indicated Resolved Time COVID - 19 Confirmed 05/31/2022 05/31/2022 023 12:16 AM ADMINISTRATIVE SUPPORT SPECIALIST Respiratory Rule Out - RPA 02/26/2023 02/26/2023 0 02/26/2023 11:31 AM CDT COVID - 19 02/26/2023 02/26/2023 03/08/2023 12:1 6 AM CDT documented as of this encounter Care Teams Stained Glass Glazier Relationship Specialty Start Date End Date Jabier Peck MD #2 [facility] [address] [place] [address] PCP - General Family Medicine 06/22/20 01/16/24 Tad Mcintosh MD [address] [place] [address] PCP - General Family Medicine 01/17/24 Srikanth Adrian MD #2 [facility] [address] [place] [address] Surveyor Rod Helper Cardiovascular Disease - Cardiology 02/02/22 08/06/24 Gloria Martinez MD #2 [facility] [address] [place] [address] Consulting Physician Urology 04/30/24 documented as of this encounter
--- OUTSIDE RECORDS SUMMARY | 2024-10-25 07:02 | XMS_ITS | Encounter Summary ---
Author Organization [facility] Address [address] [place] [address] Phone Care Team Providers Care Icu Clerk Name Role Phone Jabier Peck MD Primary Care Provider [phone] Srikanth Adrian MD Unavailable Tad Romero MD Primary Care Provider [phone] Gloria Martinez MD Unavailable [phone] Reason for Visit * Reason Comments Medication Refill Encounter Details Date Type Department Care Team (Late st Contact Info) Description 12/07/2023 Refill [facility] - Family Medicine [facility] #2 [place] [address] Jabier Peck MD #[address] [address] Medication Refill Social History Tobacco Use Types [...] CDT Gender Identity Male 05/03/2023 12:44 PM FUNERAL HOME GENERAL 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 Requested Prescriptions Pending Prescriptions Disp Refills albuterol 108 (90 Base) MCG/ACT Aerosol Solution [Pharmacy Med Name: ALBUTEROL HFA 90 MCG INHALER (ME] 8.5 g Sig: TRANSFERRED: 06/15/23 -READ RX [...] 05/03/23 Office Visit Piper Toro APRN, RICHARD [facility] 02/26/23 Office Visit Kishore Prieto APRN, RICHARD [facility] 12/18/22 Telemedicine Jabier Peck MD [facility] Showing recent visits within past 365 days and meeting all other requirements Future Appointments No visits were found meeting these conditions. Showing future appointments within next 90 days and meeting all other requirements documented in this encounter Plan of Treatment Not on file documented as of this encounter Visit Diagnoses Not on filedocumented in this encounter Care Teams Icu Clerk Relationship Specialty Start Date End Date Jabier Peck MD #2 [place] [address] PCP - General Family Medicine 06/22/20 01/16/24 Tad Mcintosh MD [address] [place] [address] PCP - General Family Medicine 01/17/24 Srikanth Adrian MD #[address] [address] Metal Rolling Mill Operator Cardiovascular Disease - Cardiology 02/02/22 08/06/24 Gloria Martinez MD #2 [facility] [address] [place] [address] Consulting Physician Urology 04/30/24 documented as of this encounter
--- OUTSIDE RECORDS SUMMARY | 2024-10-25 07:02 | XMS_ITS | Encounter Summary ---
Author Organization [facility] Address [address] [place] [address] Phone Care Team Providers Care Community Engagement Manager Name Role Phone Jabier Peck MD Primary Care Provider [phone] Srikanth Adrian MD Unavailable Tad Romero MD Primary Care Provider [phone] Gloria Martinez MD Unavailable [phone] Reason for Visit * Reason Comments Medication Refill Encounter Details Date Type Department Care Team (Late st Contact Info) Description 04/11/2021 Refill [facility] Medical Group - Family Medicine [facility] #2 [place] [id number] Kishore Prieto, ORACLE DATABASE DEVELOPER, TURRET PUNCH PRESS OPERATOR #[address] [address] Medication Refill Social History Tobacco Use Types [...] CDT Gender Identity Male 05/03/2023 12:44 PM CONTACT AGENT Sexual Orientation Lesbian or Wolff 05/03/2023 12 :44 PM CONTACT AGENT COVID-19 Exposure Response Date Recorded In the last month, have you been in contact with someone who was confirmed or suspected to have Coronavirus / COVID-19? No / Unsure 04/14/2021 12:48 PM CDT documented as of this encounter Miscellaneous Notes * Telephone Encounter - Sabina Holly RN - 04/12/2021 12:20 PM CDT Tonny calling in from [facility]. He is requesting to find out [...] 19 Confirmed 05/31/2022 05/31/2022 023 12:16 AM CONTACT AGENT Respiratory Rule Out - RPA 02/26/2023 02/26/2023 0 02/26/2023 11:31 AM CDT COVID - 19 02/26/2023 02/26/2023 03/08/2023 12:1 6 AM CDT documented as of this encounter Care Teams Community Engagement Manager Relationship Specialty Start Date End Date Jabier Peck MD #[address] [address] PCP - General Family Medicine 06/22/20 01/16/24 Tad Mcintosh MD [address] [place] [address] PCP - General Family Medicine 01/17/24 Srikanth Adrian MD #2 [facility] [address] [place] [address] Product Safety Expert Cardiovascular Disease - Cardiology 02/02/22 08/06/24 Gloria Martinez MD #2 [facility] [address] [place] [address] Consulting Physician Urology 04/30/24 documented as of this encounter
--- OUTSIDE RECORDS SUMMARY | 2024-10-25 07:02 | XMS_ITS | Encounter Summary ---
Author Organization [facility] Address [address] [place] [address] Phone Care Team Providers Care Manager Gyn Name Role Phone Jabier Peck MD Primary Care Provider [phone] Srikanth Adrian MD Unavailable Tad Romero MD Primary Care Provider [phone] Gloria Martinez MD Unavailable [phone] Reason for Visit * Reason Onset Date Comments Medication Refill 10/27/2021 Encounter Details Date Type Department Care Team (Late st Contact Info) Description 10/27/2021 Refill [facility] Medical Group - Family Medicine [facility] #2 [place] [address] Jabier Peck MD #[address] [address] Medication Refill Social History Tobacco Use Types [...] CDT Gender Identity Male 05/03/2023 12:44 PM BIOCHEMISTRY TECHNICIAN Sexual Orientation Lesbian or Wolff 05/03/2023 12 :44 PM BIOCHEMISTRY TECHNICIAN documented as of this encounter Miscellaneous [...] [place] 03/16/21 Office Visit Kishore Prieto APRN, CNP [facility] 11/16/20 Office Visit Kishore Prieto APRN, RICHARD [...] 19 Confirmed 05/31/2022 05/31/2022 023 12:16 AM BIOCHEMISTRY TECHNICIAN Respiratory Rule Out - RPA 02/26/2023 02/26/2023 0 02/26/2023 11:31 AM CDT COVID - 19 02/26/2023 02/26/2023 03/08/2023 12:1 6 AM CDT documented as of this encounter Care Teams Manager Gyn Relationship Specialty Start Date End Date Jabier Peck MD #2 [facility] [address] [place] [address] PCP - General Family Medicine 06/22/20 01/16/24 Tad Mcintosh MD [address] [place] [address] PCP - General Family Medicine 01/17/24 Srikanth Adrian MD #2 [facility] [address] [place] [address] Sales Representative Printing Paper Cardiovascular Disease - Cardiology 02/02/22 08/06/24 Gloria Martinez MD #2 [facility] [address] [place] [address] Consulting Physician Urology 04/30/24 documented as of this encounter
--- OUTSIDE RECORDS SUMMARY | 2024-10-25 07:02 | XMS_ITS | Encounter Summary ---
Author Organization [facility] Address [address] [place] [address] Phone Care Team Providers Care Hearing Aid Specialist Name Role Phone Jabier Peck MD Primary Care Provider [phone] Srikanth Adrian MD Unavailable Tad Romero MD Primary Care Provider [phone] Gloria Martinez MD Unavailable [phone] Reason for Visit * Reason Comments Medication Refill Encounter Details Date Type Department Care Team (Late st Contact Info) Description 12/11/2021 Refill [facility] - Family [facility] #2 [place] [address] Jabier Peck MD #[address] [address] Medication Refill Social History Tobacco Use Types [...] CDT Gender Identity Male 05/03/2023 12:44 PM METER TECHNICIAN Sexual Orientation Lesbian or Wolff 05/03/2023 12 :44 PM METER TECHNICIAN COVID-19 Exposure Response Date Recorded In [...] 03/16/21 Office Visit Kishore Prieto APRN, RICHARD [facility] Showing recent visits within past 365 days and meeting all other requirements Future Appointments Date Type Provider Dept 12/13/21 Appointment Kishore Prieto APRN, RICHARD [facility] Showing future appointments within next 90 days and meeting all other requirements documented in this encounter Plan of Treatment Not on file documented as of this encounter Visit Diagnoses Diagnosis Cervical radiculopathy Brachial neuritis or radiculitis nos documented in this encounter Additional Health Concerns Infection Onset Date Last Indicated Resolved Time COVID - 19 Confirmed 05/31/2022 05/31/2022 023 12:16 AM METER TECHNICIAN Respiratory Rule Out - RPA 02/26/2023 02/26/2023 0 02/26/2023 11:31 AM CDT COVID - 19 02/26/2023 02/26/2023 03/08/2023 12:1 6 AM CDT documented as of this encounter Care Teams Hearing Aid Specialist Relationship Specialty Start Date End Date Jabier Peck MD #2 [facility] [address] [place] [address] PCP - General Family Medicine 06/22/20 01/16/24 Tad Mcintosh MD [address] [place] [address] PCP - General Family Medicine 01/17/24 Srikanth Adrian MD #2 [facility] [address] [place] [address] Care Information Associate Cardiovascular Disease - Cardiology 02/02/22 08/06/24 Gloria Martinez MD #2 [facility] [address] [place] [address] Consulting Physician Urology 04/30/24 documented as of this encounter
--- OUTSIDE RECORDS SUMMARY | 2024-10-25 07:02 | XMS_ITS ---
Author Name ABBY BUTLER Address [address] [place] [address] Phone [facility] Address [address] [place] [address] Phone Care Team Providers Care Analysis Tester Name Role Phone ABBY BUTLER Unavailable [phone] ALLERGIES, ADVERSE REACTIONS AND ALERTS Allergy Name Allergy Date Allergy Status Allergy Severity Allergy Reaction NO KNOWN DRUG ALLERGIES PROBLEMS Problem Code Problem Description Problem Status Problem Da te Problem End Date 378723807-[id number] tract congestion and cough Respiratory tract congestion and cough Current 04/28/2022 [id number]-Jadfztu disorder Bipolar disorder Chronic 04/28/2022 [id number]-Fbocujxgt emphysema Pulmonary emphysema Chronic 04/28/2022 [id number]-Uiwncv disease Kidney disease Chronic 04/28/2022 96409489-Iopywtnx mellitus Diabetes mellitus Chronic 04/28/2022 [id number]-Zspudi Asthma Chronic 04/28/2022 [id number]-Tzjrpzxwtos sleep apnea syndrome Obstructive sleep apnea syndrome [...] if ever smoked Sex:Male CARE TEAM INFORMATION Analysis Tester Provider ID Role Location Phone ABBY BUTLER [id number] NURSE PRACTITIONER [address] [place] [address]
--- OUTSIDE RECORDS SUMMARY | 2024-10-25 07:02 | XMS_ITS | Encounter Summary ---
Author Organization [facility] Address [address] [place] [address] Phone Care Team Providers Care Clay Machine Operator Name Role Phone Jabier Kwok MD Primary Care Provider [phone] Srikanth Adrian MD Unavailable Tad Romero MD Primary Care Provider [phone] Gloria Martinez MD Unavailable [phone] Reason for Visit * Reason Comments Medication Refill Encounter Details Date Type Department Care Team (Late st Contact Info) Description 01/23/2022 Refill [facility] #2 [place] [address] Jabier Kwok MD #[address] [address] Medication Refill Social History Tobacco Use Types [...] CDT Gender Identity Male 05/03/2023 12:44 PM PREFABRICATOR Sexual Orientation Lesbian or Wolff 05/03/2023 12 :44 PM PREFABRICATOR COVID-19 Exposure Response Date Recorded In the [...] No data recorded * Telephone Encounter - Frnacine Soto RN - 01/24/2022 11:18 AM CDT [...] 19 Confirmed 05/31/2022 05/31/2022 023 12:16 AM PREFABRICATOR Respiratory Rule Out - RPA 02/26/2023 02/26/2023 0 02/26/2023 11:31 AM CDT COVID - 19 02/26/2023 02/26/2023 03/08/2023 12:1 6 AM CDT documented as of this encounter Care Teams Clay Machine Operator Relationship Specialty Start Date End Date Jabier Kwok MD #[address] [address] PCP - General Family Medicine 06/22/20 01/16/24 Tad Mcintosh MD [address] [place] [address] PCP - General Family Medicine 01/17/24 Srikanth Adrian MD #2 [facility] [address] [place] [address] Youth Worker Cardiovascular Disease - Cardiology 02/02/22 08/06/24 Gloria Martinez MD #2 [facility] [address] [place] [address] Consulting Physician Urology 04/30/24 documented as of this encounter
--- OUTSIDE RECORDS SUMMARY | 2024-10-25 07:02 | XMS_ITS | Encounter Summary ---
Author Organization [facility] Address [address] [place] [address] Phone Care Team Providers Care Transportation Driver Name Role Phone Jabier Peck MD Primary Care Provider [phone] Srikanth Adrian MD Unavailable Tad Romero MD Primary Care Provider [phone] Gloria Martinez MD Unavailable [phone] Reason for Visit * Reason Comments Medication Refill Encounter Details Date Type Department Care Team (Late st Contact Info) Description 02/02/2021 Refill [facility] - Family [facility] #2 [place] [address] Jabier Peck MD #[address] [address] Medication Refill Social History Tobacco Use Types [...] Gender Identity Male 05/03/2023 12:44 PM METAL CASKET MAKER Sexual Orientation Lesbian or Wolff 05/03/2023 12 :44 PM METAL CASKET MAKER documented as of this encounter Miscellaneous [...] 06/22/20 Office Visit Kishore Prieto APN, RICHARD [facility] [place] Showing recent visits within past 365 [...] 19 Confirmed 05/31/2022 05/31/2022 023 12:16 AM METAL CASKET MAKER Respiratory Rule Out - RPA 02/26/2023 02/26/2023 0 02/26/2023 11:31 AM CDT COVID - 19 02/26/2023 02/26/2023 03/08/2023 12:1 6 AM CDT documented as of this encounter Care Teams Transportation Driver Relationship Specialty Start Date End Date Jabier Peck MD #2 [facility] [address] [place] [address] PCP - General Family Medicine 06/22/20 01/16/24 Tad Mcintosh MD [address] [place] [address] PCP - General Family Medicine 01/17/24 Srikanth Adrian MD #2 [facility] [address] [place] [address] Eligibility Consultant Cardiovascular Disease - Cardiology 02/02/22 08/06/24 Gloria Martinez MD #2 [facility] [address] [place] [address] Consulting Physician Urology 04/30/24 documented as of this encounter
--- OUTSIDE RECORDS SUMMARY | 2024-10-25 07:02 | XMS_ITS | Encounter Summary ---
Author Organization [facility] Address [address] [place] [address] Phone Care Team Providers Care Showroom Salesperson Name Role Phone Jabier Peck MD Primary Care Provider [phone] Srikanth Ardian MD Unavailable Tad Romero MD Primary Care Provider Gloria Martinez MD Unavailable [phone] Reason for Visit * Reason Comments Medication Refill Encounter Details Date Type Department Care Team (Late st Contact Info) Description 02/24/2022 Refill [facility] #2 [place] [address] Jabier Peck MD #[address] [address] Medication Refill Social History Tobacco Use Types [...] CDT Gender Identity Male 05/03/2023 12:44 PM RECREATION PROFESSOR Sexual Orientation Lesbian or Wolff 05/03/2023 12 :44 PM RECREATION PROFESSOR COVID-19 Exposure Response Date Recorded In the [...] 03/16/21 Office Visit Kishore Prieto APRN, [facility] [place] Showing recent [...] 19 Confirmed 05/31/2022 05/31/2022 023 12:16 AM RECREATION PROFESSOR Respiratory Rule Out - RPA 02/26/2023 02/26/2023 0 02/26/2023 11:31 AM CDT COVID - 19 02/26/2023 02/26/2023 03/08/2023 12:1 6 AM CDT documented as of this encounter Care Teams Showroom Salesperson Relationship Specialty Start Date End Date Jabier Peck MD #2 [facility] [address] [place] [address] PCP - General Family Medicine 06/22/20 01/16/24 Tad Mcintosh MD [address] [place] [address] PCP - General Family Medicine 01/17/24 Srikanth Adrian MD #2 [facility] [address] [place] [address] Recreation Professor Cardiovascular Disease - Cardiology 02/02/22 08/06/24 Gloria Martinez MD #2 [facility] [address] [place] [address] Consulting Physician Urology 04/30/24 documented as of this encounter
--- OUTSIDE RECORDS SUMMARY | 2024-10-25 07:02 | XMS_ITS | Encounter Summary ---
Author Organization [facility] Address [address] [place] [address] Phone Care Team Providers Care Inventory Audit Clerk Name Role Phone Srikanth Adrian MD Unavailable Tad Romero MD Primary Care Provider Gloria Martinez MD Unavailable [phone] Reason for Visit * Reason Comments Medication Refill Encounter Details Date Type Department Care Team ([facility] Contact Info) Description 03/29/2024 Refill [facility] - Family Medicine [facility] #2 [place] [address] Kishore Prieto APRN, FATBACK TRIMMER #[address] [address] Medication Refill Social History Tobacco Use Types [...] CDT Gender Identity Male 05/03/2023 12:44 PM FORESTRY AID TECHNICIAN Sexual Orientation Lesbian or Wolff 05/03/2023 12 :44 PM FORESTRY AID TECHNICIAN documented as of this encounter Miscellaneous Notes * Telephone Encounter - Cristine Preston RN - 03/30/2024 1:22 PM CDT PCP: Tad Mcintosh MD documented in this encounter Plan of Treatment Not on file documented as of this encounter Visit Diagnoses Not on filedocumented in this encounter Care Teams Inventory Audit Clerk Relationship Specialty Start Date End Date Tad Mcintosh MD [address] [place] [address] PCP - General Family Medicine 01/17/24 Srikanth Adrian MD Wafer Fab Technician Cardiovascular Disease - Cardiology 02/02/22 08/06/24 Gloria Martinez MD #[address] [address] Consulting Physician Urology 04/30/24 documented as of this encounter
--- OUTSIDE RECORDS SUMMARY | 2024-10-25 07:02 | XMS_ITS | Clinical Summary ---
Author Organization [facility] Address [address] [place] [address] Care Team Providers Care Fisher Diving Name Role Phone Jabire Peck MD MPH Primary Care Provider [phone] Allergies Active Allergy Reactions Criticality Noted Date [...] 4.0 - 6.0 Blood (Blood, Venous) 12/30/2021 [facility] Provider LAB BLOOD ORDERABLES Becky l Result from Last 3 Months or Most Recently Relevant to Health Maintenance Insurance UHC Medicare Medicaid [place] Care Teams Fisher Diving Relationship Specialty Start Date End Date Jabier Peck MD MPH [address] [address] PCP - General Family Medicine 09/13/21
--- OUTSIDE RECORDS SUMMARY | 2024-10-25 07:02 | XMS_ITS | Encounter Summary ---
Author Organization [facility] Address [address] [place] [address] Phone Care Team Providers Care Pole Inspector Name Role Phone Srikanth Adrian MD Unavailable Tad Romero MD Primary Care Provider [phone] Gloria Martinez MD Unavailable [phone] Reason for Visit * Reason Comments Medication Refill Encounter Details Date Type Department Care Team (Late Contact Info) Description 07/03/2024 Refill [facility] #2 [place] [address] Jabier Peck MD #[address] [address] Medication Refill Social History Tobacco Use Types [...] CDT Gender Identity Male 05/03/2023 12:44 PM PARALEGAL SPECIALIST Sexual Orientation Lesbian or Wolff 05/03/2023 12 :44 PM PARALEGAL SPECIALIST documented as of this encounter Miscellaneous Notes * Telephone Encounter - Francine Soto RN - 07/04/2024 8:54 AM CST PCP: Tad Mcintosh MD LEGAL SPECIALIST documented in this encounter Plan of Treatment Not on file documented as of this encounter Visit Diagnoses Not on filedocumented in this encounter Care Teams Pole Inspector Relationship Specialty Start Date End Date Tad Mcintosh MD [address] [place] [address] PCP - General Family Medicine 01/17/24 Srikanth Adrian MD Envelope Folding Machine Operator Cardiovascular Disease - Cardiology 02/02/22 08/06/24 Gloria Martinez MD #[address] [address] Consulting Physician Urology 04/30/24 documented as of this encounter
--- OUTSIDE RECORDS SUMMARY | 2024-10-25 07:02 | XMS_ITS | Encounter Summary ---
Author Organization [facility] Address [address] [facility] [place] [address] Phone Care Team Providers Care Electric Milkers Installer Name Role Phone Tad Mcintosh MD Primary Care Provider [phone] Gloria Martinez MD Unavailable [phone] Reason for Visit * Reason Comments Medication Refill Encounter Details Date Type Department Care Team (Late st Contact Info) Description 10/21/2024 Refill [facility] - Family Medicine [facility] #2 [place] [address] Jabier Peck MD #[address] [address] Medication Refill Social History Tobacco Use Types [...] CDT Gender Identity Male 05/03/2023 12:44 PM BLOCK SAW OPERATOR Sexual Orientation Lesbian or Wolff 05/03/2023 12 :44 PM BLOCK SAW OPERATOR documented as of this encounter Miscellaneous Notes * Telephone Encounter - Francine Soto RN - 10/22/2024 9:04 AM CDT PCP: Tad Mcintosh MD documented in this encounter Plan of Treatment Not on file documented as of this encounter Visit Diagnoses Not on filedocumented in this encounter Care Teams Electric Milkers Installer Relationship Specialty Start Date End Date Tad Mcintosh MD [address] [place] [address] PCP - General Family Medicine 01/17/24 Gloria Martinez MD #[address] [address] Consulting Physician Urology 04/30/24 documented as of this encounter
--- OUTSIDE RECORDS SUMMARY | 2024-10-25 07:02 | XMS_ITS | Encounter Summary ---
Author Organization [facility] Address [address] [place] [address] Phone Care Team Providers Care Blintze Roller Name Role Phone Jabier Peck MD Primary Care Provider [phone] Srikanth Adrian MD Unavailable Tad Romero MD Primary Care Provider [phone] Gloria Martinez MD Unavailable [phone] Reason for Visit * Reason Comments Medication Refill Encounter Details Date Type Department Care Team (Late st Contact Info) Description 02/27/2023 Refill [facility] #2 [place] [address] Jabier Peck MD #[address] [address] Medication Refill Social History Tobacco Use Types [...] CDT Gender Identity Male 05/03/2023 12:44 PM OFFSET SECOND PRESS OPERATOR Sexual Orientation Lesbian or Wolff 05/03/2023 12 :44 PM OFFSET SECOND PRESS OPERATOR COVID-19 Exposure Response Date Recorded In [...] documented as of this encounter Care Teams Blintze Roller Relationship Specialty Start Date End Date Jabier Peck MD #2 [facility] [address] [place] [address] PCP - General Family Medicine 06/22/20 01/16/24 Tad Mcintosh MD [address] [place] [address] PCP - General Family Medicine 01/17/24 Srikanth Adrian MD #2 [facility] [address] [place] [address] Hydro Station Supervisor Cardiovascular Disease - Cardiology 02/02/22 08/06/24 Gloria Martinez MD #2 [facility] [address] [place] [address] Consulting Physician Urology 04/30/24 documented as of this encounter
--- OUTSIDE RECORDS SUMMARY | 2024-10-25 07:02 | XMS_ITS | Encounter Summary ---
Author Organization [facility] Address [address] [place] [address] Phone Care Team Providers Care Glycerin Supervisor Name Role Phone Jabier Peck MD Primary Care Provider [phone] Srikanth Adrian MD Unavailable Tad Romero MD Primary Care Provider [phone] Gloria Martinez MD Unavailable [phone] Reason for Visit * Reason Comments Medication Refill Encounter Details Date Type Department Care Team (Late st Contact Info) Description 08/01/2023 Refill [facility] #2 [place] [address] Jabier Peck MD #[address] [address] Medication Refill Social History Tobacco Use Types [...] CDT Gender Identity Male 05/03/2023 12:44 PM SUEDE CLEANER Sexual Orientation Lesbian or Wolff 05/03/2023 12 :44 PM SUEDE CLEANER documented as of this encounter Miscellaneous Notes [...] [place] 08/21/22 Office Visit Jabier Peck MD [facility] [place] Showing recent visits within past 365 days and meeting all other requirements Future Appointments No visits were found meeting these conditions. Showing future appointments within next 90 days and meeting all other requirements Passed - Active short-acting beta agonist prescription E CLEANER documented in this encounter Plan of Treatment Not on file documented as of this encounter Visit Diagnoses Not on filedocumented in this encounter Care Teams Glycerin Supervisor Relationship Specialty Start Date End Date Jabier Peck MD #2 [facility] [address] [place] [address] PCP - General Family Medicine 06/22/20 01/16/24 Tad Mcintosh MD [address] [place] [address] PCP - General Family Medicine 01/17/24 Srikanth Adrian MD #2 [facility] [address] [place] [address] Instructional Coordinator Cardiovascular Disease - Cardiology 02/02/22 08/06/24 Gloria Martinez MD #2 [facility] [address] [place] [address] Consulting Physician Urology 04/30/24 documented as of this encounter
--- OUTSIDE RECORDS SUMMARY | 2024-10-25 07:02 | XMS_ITS | Encounter Summary ---
Author Organization [facility] Address [address] [place] [address] Phone Care Team Providers Care Md Allergy Immunology Name Role Phone Jabier Peck MD Primary Care Provider [phone] Srikanth Adrian MD Unavailable Tad Romero MD Primary Care Provider [phone] Gloria Martinez MD Unavailable [phone] Reason for Visit * Reason Comments Medication Refill Encounter Details Date Type Department Care Team (Late st Contact Info) Description 11/23/2021 Refill [facility] #2 [place] [address] Jabier Peck MD #[address] [address] Medication Refill Social History Tobacco Use Types [...] CDT Gender Identity Male 05/03/2023 12:44 PM COACH WIRER Sexual Orientation Lesbian or Wolff 05/03/2023 12 :44 PM COACH WIRER documented as of this encounter Miscellaneous Notes [...] MD [facility] [place] 03/16/21 Office Visit Kishore Prieto, VP SOFTWARE, PANEL RAISER OPERATOR [facility] Showing recent visits within past 365 days [...] 19 Confirmed 05/31/2022 05/31/2022 023 12:16 AM COACH WIRER Respiratory Rule Out - RPA 02/26/2023 02/26/2023 0 02/26/2023 11:31 AM CDT COVID - 19 02/26/2023 02/26/2023 03/08/2023 12:1 6 AM CDT documented as of this encounter Care Teams Md Allergy Immunology Relationship Specialty Start Date End Date Jabier Peck MD #[address] [address] PCP - General Family Medicine 06/22/20 01/16/24 Tad Mcintosh MD [address] [place] [address] PCP - General Family Medicine 01/17/24 Srikanth Adrian MD #2 [facility] [address] [place] [address] District Fire Chief Cardiovascular Disease - Cardiology 02/02/22 08/06/24 Gloria Martinez MD #2 [facility] [address] [place] [address] Consulting Physician Urology 04/30/24 documented as of this encounter
--- OUTSIDE RECORDS SUMMARY | 2024-10-25 07:02 | XMS_ITS | Encounter Summary ---
Author Organization [facility] Address [address] [place] [address] [place] [address] Phone Care Team Providers Care Overhead Crane Technician Name Role Phone Srikanth Adrian MD Unavailable Tad Romero MD Primary Care Provider Gloria Martinez MD Unavailable [phone] Reason for Visit * Reason Comments Medication Refill Encounter Details Date Type Department Care Team (Late Contact Info) Description 07/26/2024 Refill [facility] - Family Medicine [facility] #2 [place] [address] Jabier Peck MD #[address] [address] Medication Refill Social History Tobacco Use Types [...] CDT Gender Identity Male 05/03/2023 12:44 PM ARCHITECTURAL ENGINEER Sexual Orientation Lesbian or Wolff 05/03/2023 12 :44 PM ARCHITECTURAL ENGINEER documented as of this encounter Miscellaneous Notes * Telephone Encounter - Sheyla Burgess RN - 07/28/2024 10:39 AM ARCHITECTURAL ENGINEER Changed PCPs to Tad Mcintosh MD ITECTURAL ENGINEER * Telephone Encounter - Sheyla Burgess RN - 07/28/2024 10:39 AM ARCHITECTURAL ENGINEER Now seeing Tad Mcintosh MD ITECTURAL ENGINEER * Telephone Encounter - Sheyla Burgess RN - 07/28/2024 10:38 AM ARCHITECTURAL ENGINEER Needs OV. Last seen April 2023. ITECTURAL ENGINEER documented in this encounter Plan of Treatment Not on file documented as of this encounter Visit Diagnoses Not on filedocumented in this encounter Care Teams Overhead Crane Technician Relationship Specialty Start Date End Date Tad Mcintosh MD [address] [place] [address] PCP - General Family Medicine 01/17/24 Srikanth Adrian MD Sales Commissions Analyst Cardiovascular Disease - Cardiology 02/02/22 08/06/24 Gloria Martinez MD #[address] [address] Consulting Physician Urology 04/30/24 documented as of this encounter
--- OUTSIDE RECORDS SUMMARY | 2024-10-25 07:02 | XMS_ITS | Encounter Summary ---
Author Organization [facility] Address [address] [place] [address] Phone Care Team Providers Care Back Up Machine Operator Name Role Phone Jabier Peck MD Primary Care Provider [phone] Srikanth Adrian MD Unavailable Tad Romero MD Primary Care Provider [phone] Gloria Martinez MD Unavailable [phone] Encounter Details Date Type Department Care Team (Late st Contact Info) Description 03/21/2023 Telephone [facility] [address] [place] [address] Jabier Peck MD #[address] [address] Social History Tobacco Use Types Packs/Day Years [...] CDT Gender Identity Male 05/03/2023 12:44 PM CLEAN ROOM ASSEMBLER Sexual Orientation Lesbian or Wolff 05/03/2023 12 :44 PM CLEAN ROOM ASSEMBLER COVID-19 Exposure Response Date Recorded In the [...] on filedocumented in this encounter Care Teams Back Up Machine Operator Relationship Specialty Start Date End Date Jabier Peck MD #2 [facility] [address] [place] [address] PCP - General Family Medicine 06/22/20 01/16/24 Tad Mcintosh MD [address] [place] [address] PCP - General Family Medicine 01/17/24 Srikanth Adrian MD #2 [facility] [address] [place] [address] Risk Management Internship Cardiovascular Disease - Cardiology 02/02/22 08/06/24 Gloria Martinez MD #2 [facility] [address] [place] [address] Consulting Physician Urology 04/30/24 documented as of this encounter
--- OUTSIDE RECORDS SUMMARY | 2024-10-25 07:02 | XMS_ITS | Encounter Summary ---
Author Organization [facility] Address [address] [facility] [place] [address] Phone Care Team Providers Care Front Edger Name Role Phone Jabier Peck MD Primary Care Provider [phone] Srikanth Adrian MD Unavailable Tad Romero MD Primary Care Provider [phone] Gloria Martinez MD Unavailable [phone] Reason for Visit * Reason Comments Medication Refill Encounter Details Date Type Department Care Team (Late st Contact Info) Description 01/06/2021 Refill [facility] Group - Family Medicine [facility] #2 [place] [address] Jt Morillo MD [address] [place] [address] Medication Refill Social History Tobacco Use Types [...] CDT Gender Identity Male 05/03/2023 12:44 PM LIGHT BULB REPLACER Sexual Orientation Lesbian or Wolff 05/03/2023 12 :44 PM LIGHT BULB REPLACER documented as of this encounter Miscellaneous Notes [...] 19 Confirmed 05/31/2022 05/31/2022 023 12:16 AM LIGHT BULB REPLACER Respiratory Rule Out - RPA 02/26/2023 02/26/2023 0 02/26/2023 11:31 AM CDT COVID - 19 02/26/2023 02/26/2023 03/08/2023 12:1 6 AM CDT documented as of this encounter Care Teams Front Edger Relationship Specialty Start Date End Date Jabier Peck MD #2 [facility] [address] [place] [address] PCP - General Family Medicine 06/22/20 01/16/24 Tad Mcintosh MD [address] [place] [address] PCP - General Family Medicine 01/17/24 Srikanth Adrian MD #2 [facility] [address] [place] [address] Lump Machine Operator Cardiovascular Disease - Cardiology 02/02/22 08/06/24 Gloria Martinez MD #2 [facility] [address] [place] [address] Consulting Physician Urology 04/30/24 documented as of this encounter
--- OUTSIDE RECORDS SUMMARY | 2024-10-25 07:02 | XMS_ITS | Encounter Summary ---
Author Organization [facility] Address [address] [place] [address] Phone Care Team Providers Care Strong Nitric Operator Name Role Phone Jabier Peck MD Primary Care Provider [phone] Srikanth Adrian MD Unavailable Tad Romero MD Primary Care Provider Gloria Martinez MD Unavailable [phone] Reason for Visit * Reason Comments Medication Refill Encounter Details Date Type Department Care Team (Late st Contact Info) Description 02/22/2022 Refill [facility] #2 [place] [address] Jabier Peck MD #[address] [address] Medication Refill Social History Tobacco Use Types [...] CDT Gender Identity Male 05/03/2023 12:44 PM LAST INSERTER Sexual Orientation Lesbian or Wolff 05/03/2023 12 :44 PM LAST INSERTER COVID-19 Exposure Response Date Recorded In the [...] [place] 04/29/21 Office Visit Jabier Peck MD [facility] 03/16/21 Office Visit Kishore Prieto APRN, RICHARD [facility] Showing recent visits within past 365 days and meeting all other requirements Future Appointments Date Type Provider Dept 02/24/22 Appointment Kishore Prieto APRN, RICHARD [facility] Showing future appointments within next 90 days and meeting all other requirements documented in this encounter Plan of Treatment Not on file documented as of this encounter Visit Diagnoses Diagnosis Cervical radiculopathy Brachial neuritis or radiculitis nos documented in this encounter Additional Health Concerns Infection Onset Date Last Indicated Resolved Time COVID - 19 Confirmed 05/31/2022 05/31/2022 023 12:16 AM LAST INSERTER Respiratory Rule Out - RPA 02/26/2023 02/26/2023 0 02/26/2023 11:31 AM CDT COVID - 19 02/26/2023 02/26/2023 03/08/2023 12:1 6 AM CDT documented as of this encounter Care Teams Strong Nitric Operator Relationship Specialty Start Date End Date Jabier Peck MD #2 [facility] [address] [place] [address] PCP - General Family Medicine 06/22/20 01/16/24 Tad Mcintosh MD [address] [place] [address] PCP - General Family Medicine 01/17/24 Srikanth Adrian MD #2 [facility] [address] [place] [address] Transit Specialist Cardiovascular Disease - Cardiology 02/02/22 08/06/24 Gloria Martinez MD #2 [facility] [address] [place] [address] Consulting Physician Urology 04/30/24 documented as of this encounter
--- OUTSIDE RECORDS SUMMARY | 2024-10-25 07:02 | XMS_ITS | Encounter Summary ---
Author Organization [facility] Address [address] [place] [address] Phone Care Team Providers Care Cloth Worker Name Role Phone Jabier Peck MD Primary Care Provider [phone] Srikanth Adrian MD Unavailable Tad Romero MD Primary Care Provider [phone] Gloria Martinez MD Unavailable [phone] Reason for Visit * Reason Comments Medication Refill Encounter Details Date Type Department Care Team (Late st Contact Info) Description 05/14/2023 Refill [facility] - Family Medicine [facility] #2 [place] [address] Jabier Peck MD #[address] [address] Medication Refill Social History Tobacco Use Types [...] CDT Gender Identity Male 05/03/2023 12:44 PM STROKE PROGRAM COORDINATOR Sexual Orientation Lesbian or Wolff 05/03/2023 12 :44 PM STROKE PROGRAM COORDINATOR documented as of this encounter Miscellaneous Notes [...] 05/11/23 Office Visit Piper Toro APRN, RICHARD [facility] 05/03/23 Office Visit Piper Toro APRN, RICHARD [facility] 02/26/23 Office Visit Kishore Prieto APRN, RICHARD [facility] 12/18/22 Telemedicine Jabier Peck MD [facility] 11/30/22 Telemedicine Kishore Prieto APRN, RICHARD [facility] 08/21/22 Office Visit Jabier Peck MD [facility] 07/20/22 Office Visit Gerri Rocha MD [facility] Showing recent visits within past 365 days and meeting all other requirements Future Appointments Date Type Provider Dept 06/28/23 Appointment Jabier Peck MD [facility] Showing future appointments within next 90 days and meeting all other requirements KE PROGRAM COORDINATOR documented in this encounter Plan of Treatment Not on file documented as of this encounter Visit Diagnoses Not on filedocumented in this encounter Care Teams Cloth Worker Relationship Specialty Start Date End Date Jabier Peck MD #2 [facility] [address] [place] [address] PCP - General Family Medicine 06/22/20 01/16/24 Tad Mcintosh MD [address] [place] [address] PCP - General Family Medicine 01/17/24 Srikanth Adrian MD #2 [facility] [address] [place] [address] Heating Unit Mechanic Cardiovascular Disease - Cardiology 02/02/22 08/06/24 Gloria Martinez MD #2 [facility] [address] [place] [address] Consulting Physician Urology 04/30/24 documented as of this encounter
--- OUTSIDE RECORDS SUMMARY | 2024-10-25 07:02 | XMS_ITS | Encounter Summary ---
Author Organization [facility] Address [address] [place] [address] Phone Care Team Providers Care Design Inserter Name Role Phone Srikanth Adrian MD Unavailable Tad Romero MD Primary Care Provider Gloria Martinez MD Unavailable [phone] Reason for Visit * Reason Comments Medication Refill Encounter Details Date Type Department Care Team (Late Contact Info) Description 05/28/2024 Refill [facility] - Family Medicine [facility] #2 [place] [address] Jabier Peck MD #[address] [address] Medication Refill Social History Tobacco Use Types [...] CDT Gender Identity Male 05/03/2023 12:44 PM APPRENTICE COOK Sexual Orientation Lesbian or Wolff 05/03/2023 12 :44 PM APPRENTICE COOK documented as of this encounter Miscellaneous Notes * Telephone Encounter - Francine Soto RN - 05/28/2024 11:10 AM CST PCP: Tad Mcintosh MD ENTICE COOK documented in this encounter Plan of Treatment Not on file documented as of this encounter Visit Diagnoses Not on filedocumented in this encounter Care Teams Design Inserter Relationship Specialty Start Date End Date Tad Mcintosh MD [address] [place] [address] PCP - General Family Medicine 01/17/24 Srikanth Adrian MD Roll Forming Machine Operator Cardiovascular Disease - Cardiology 02/02/22 08/06/24 Gloria Martinez MD #[address] [address] Consulting Physician Urology 04/30/24 documented as of this encounter
--- OUTSIDE RECORDS SUMMARY | 2024-10-25 07:02 | XMS_ITS | Clinical Summary ---
Author Organization [facility] Address [address] [place] [facility], [address] [address] Phone Care Team Providers Care Clay Dry Press Mixer Operator Name Role Phone Tad Mcintosh MD Primary Care Provider [phone] Gloria Martinez MD Unavailable [phone] Allergies Active Allergy Reactions Criticality Noted Date [...] Encounters Date Type Department Care Team Description 10/21/2024 Refill [facility] [place] [place] [facility]2 [place] [address] Jabier Peck MD Medication Refill 10/20/2024 Refill [facility] [place] #2 [place] [address] Jabier Peck MD Medication Refill from Last [...] CDT Gender Identity Male 05/03/2023 12:44 PM MAXILLOFACIAL PROSTHODONTIST Sexual Orientation Lesbian or Wolff 05/03/2023 12 :44 PM MAXILLOFACIAL PROSTHODONTIST Last Filed Vital Signs Vital Sign Reading Time Taken Comments Blood Pressure 129/82 03/11/2024 2:22 PM CDT Pulse 71 03/11/2024 2:22 PM CDT Temperature 36.5 C (97.7 F) 05/11/2023 1:15 PM MAXILLOFACIAL PROSTHODONTIST Respiratory Rate 18 03/11/2024 2:22 PM CDT Oxygen Saturation 98% 03/11/2024 2:22 PM CDT Inhaled Oxygen Concentration - - Weight 99.8 kg (220 lb) 03/11/2024 2:22 PM CDT Height 175.3 cm (5' 9 ) 03/11/2024 2:22 PM CDT Body Mass Index 32.49 03/11/2024 2:22 PM CDT Plan of Treatment Health Maintenance Due [...] CHEST SCREENING WO Routine 05/10/2022 2:52 PM MAXILLOFACIAL PROSTHODONTIST Personal history of nicotine dependence PODIATRY CONSULT 08/18/2021 12:0 0 AM MAXILLOFACIAL PROSTHODONTIST from Last 3 Months or Most Recently Relevant to Health Maintenance Results * (ABNORMAL) HEMOGLOBIN A1C W/ ESTIMATED GLUCOSE (02/26/2023 12:32 PM CDT) Pathologist [facility] HGB-A1C 7.1(H) 4.0 - 6.0 % 02/26/2023 1:18 PM CDT [facility] Est Average Glucose 157.1 mg/dL 02/26/2023 1:18 PM CDT [facility] Blood Venipuncture / Unknown 02/26/2023 12:32 PM CDT 02/26/2023 12:58 PM CDT Narrative [facility] - 02/26/2023 1:18 PM CDT HEMOGLOBIN A1C: DIABETIC PATIENTS: WELL-CONTROLLED: 6.2 - 7.0 INTERMEDIATE WELL-CONTROLLED: 7.0 - 9.0 POORLY-CONTROLLED: >9.0 us Kishore Prieto INFORMATION SYSTEMS AUDIT MANAGER, RUN BOAT OPERATOR CHEMISTRY ORDERA BLES Final Result [facility] #1 [place] [address] * PSA SCREEN (02/26/2023 12:32 PM CDT) Pathologist [facility] PSA SCREEN, TOTAL 0.60 <4.00 ng/mL 02/26/2023 1:45 PM CDT [facility] Blood Venipuncture / Unknown 02/26/2023 12:32 PM CDT 02/26/2023 12:57 PM CDT Narrative [facility] - 02/26/2023 1:45 PM CDT The RIG HAND Total PSA assay is a Chemiluminescent Microparticle Immunoassay (CMIA) for the quantitative determination of total PSA (both free PSA and PSA complexed to [id number]) in human serum. us Kishore Prieto APRN, CNP CHEMISTRY ORDERA BLES Final Result [facility] #1 [place] [address] * (ABNORMAL) CMP (COMPREHENSIVE METABOLIC PANEL) (02/26/2023 12:32 PM CDT) SODIUM 140 136 - 145 mmol/L 02/26/2023 1:22 PM CDT [facility] POTASSIUM 3.8 3.5 - 5.1 mmol/L 02/26/2023 1:22 PM CDT [facility] CHLORIDE 106 98 - 107 mmol/L 02/26/2023 1:22 PM CDT [facility] CO2, VENOUS 25 22 - 30 mmol/L 02/26/2023 1:22 PM CDT [facility] ANION GAP 12.8 <18.0 mmol/L 02/26/2023 1:22 PM CDT [facility] GLUCOSE 141(H) 70 - 99 mg/dL 02/26/2023 1:22 PM CDT [facility] BUN 17 8 - 26 mg/dL 02/26/2023 1:22 PM CDT [facility] CREATININE, BLOOD 1.49(H) 0.70 - 1.30 mg/dL 02/26/2023 1:22 PM CDT [facility] BUN/CREATININE RATIO 11(L) 12 - 20 ratio 02/26/2023 1:22 PM CDT [facility] TOTAL PROTEIN 6.7 6.3 - 8.2 g/dL 02/26/2023 1:22 PM CDT [facility] ALBUMIN 3.8 3.5 - 5.0 g/dL 02/26/2023 1:22 PM CDT [facility] A/G RATIO 1.3 1.0 - 2.2 02/26/2023 1:22 PM CDT [facility] CALCIUM 9.3 8.7 - 10.5 mg/dL 02/26/2023 1:22 PM CDT [facility] T BILI 0.4 0.2 - 1.2 mg/dL 02/26/2023 1:22 PM CDT [facility] SGOT (AST) 20 5 - 34 U/L 02/26/2023 1:22 PM CDT [facility] SGPT (ALT) 37 0 - 55 U/L 02/26/2023 1:22 PM CDT [facility] ALKALINE PHOSPHATASE 102 40 - 150 U/L 02/26/2023 1:22 PM CDT [facility] IS THE PATIENT REQUIRED TO BE FASTING? No 02/26/2023 1:22 PM CDT [facility] GFR, ESTIMATED 55(L) >=60 02/26/2023 1:22 PM CDT [facility] Comment: Creatinine Clearance is the preferred criteria for selecting drug dose adjustments in renally impaired patients. The GFR is provided as additional pertinent clinical information. GFR is reported in mL/min/1.73 sq m. Calculation based on the Chronic Kidney Disease Epidemiology Collaboration (CKD- EPI) equation refit without adjustment for race. GFR, EST. 60 >=60 023 1:22 PM CDT [facility] GFR, EST. NONAFRICAN 49(L) >=60 02/26/2023 1:22 PM CDT [facility] Blood Venipuncture / Unknown 02/26/2023 12:32 PM CDT 02/26/2023 12:57 PM CDT us Kishore Prieto INFORMATION SYSTEMS AUDIT MANAGER, RUN BOAT OPERATOR CHEMISTRY ORDERA BLES Final Result [facility] #[address] [place] [address] * CT CHEST SCREENING WO (05/10/2022 2:52 PM MAXILLOFACIAL PROSTHODONTIST) Anatomical Region Laterality Modality Chest N/A Computed Tomogra phy 05/12/2022 9:10 AM MAXILLOFACIAL PROSTHODONTIST Impressions 05/12/2022 9:13 AM MAXILLOFACIAL PROSTHODONTIST IMPRESSION: 1. Background of mild pulmonary emphysema. 2. Scattered tiny bilateral pulmonary nodules. No suspicious nodularity. 3. Mild coronary artery calcifications. 4. Additional findings as above. Lung-RADS v1.1 category 2: Benign appearance or behavior. Recommendation: Low dose CT of chest in 12 months. Narrative 05/12/2022 9:13 AM MAXILLOFACIAL PROSTHODONTIST EXAM DESCRIPTION: CT CHEST SCREENING WO REASON [...] Mallorie Gomez M.D. TW: KRISTIN Report ID: [id number] Reading Location: [place] [address] Procedure Note Mallorie Gomez MD - 05/12/2022 [...] Mallorie Gomez M.D. TW: KRISTIN Report ID: [id number] Reading Location: [id number] IMPRESSION: 1. Background of mild pulmonary emphysema. 2. Scattered tiny bilateral pulmonary nodules. No suspicious nodularity. 3. Mild coronary artery calcifications. 4. Additional findings as above. Lung-RADS v1.1 category 2: Benign appearance or behavior. Recommendation: Low dose CT of chest in 12 months. us Kishore Prieto APRN, RICHARD IMG CT ORDERABLE S Final Result * PODIATRY CONSULT (08/18/2021 12:00 AM MAXILLOFACIAL PROSTHODONTIST) 08/18/2021 us Not On File Provider GENERIC [...] measures to stabilize the patient. Care Teams Clay Dry Press Mixer Operator Relationship Specialty Start Date End Date Tad Mcintosh MD [address] [place] [address] PCP - General Family Medicine 01/17/24 Gloria Martinez MD #[address] [address] Consulting Physician Urology 04/30/24
--- OUTSIDE RECORDS SUMMARY | 2024-10-25 07:02 | XMS_ITS | Encounter Summary ---
Author Organization [facility] Address [address] [place] [address] Phone Care Team Providers Care Branch Or Department Chief Librarian Name Role Phone Jabier Peck MD Primary Care Provider [phone] Srikanth Adrian MD Unavailable Tad Romero MD Primary Care Provider [phone] Gloria Martinez MD Unavailable [phone] Reason for Visit * Reason Comments Medication Refill Encounter Details Date Type Department Care Team (Late st Contact Info) Description 03/19/2023 Refill [facility] #2 [place] [address] Jabier Peck MD #[address] [address] Medication Refill Social History Tobacco Use Types [...] CDT Gender Identity Male 05/03/2023 12:44 PM POISON INFORMATION SPECIALIST Sexual Orientation Lesbian or Wolff 05/03/2023 12 :44 PM POISON INFORMATION SPECIALIST COVID-19 Exposure Response Date Recorded In [...] [place] 11/30/22 Telemedicine Kishore Prieto APRN, RICHARD [facility] 08/21/22 Office Visit Jabier Peck MD [facility] 07/20/22 Office Visit Gerri Rocha MD [facility] 05/03/22 Telemedicine [facility]ck MD [facility] Showing recent visits within past 365 [...] Thoracic or lumbosacral neuritis or radiculitis, unspecified documented in this encounter Care Teams Branch Or Department Chief Librarian Relationship Specialty Start Date End Date Jabier Peck MD #2 [facility] [address] [place] [address] PCP - General Family Medicine 06/22/20 01/16/24 Tad Mcintosh MD [address] [place] [address] PCP - General Family Medicine 01/17/24 Srikanth Adrian MD #2 [facility] [address] [place] [address] Mechanic Sound Technician Cardiovascular Disease - Cardiology 02/02/22 08/06/24 Gloria Martinez MD #2 [facility] [address] [place] [address] Consulting Physician Urology 04/30/24 documented as of this encounter
--- OUTSIDE RECORDS SUMMARY | 2024-10-25 07:02 | XMS_ITS | Encounter Summary ---
Author Organization [facility] Address [address] [place] [address] Phone Care Team Providers Care Route Sales Associate Name Role Phone Srikanth Adrian MD Unavailable Tad Romero MD Primary Care Provider Gloria Martinez MD Unavailable [phone] Reason for Visit * Reason Comments Medication Refill Encounter Details Date Type Department Care Team (Late Contact Info) Description 03/15/2024 Refill [facility] Medical Group - Family Medicine [facility] #2 [place] [address] Kishore Prieto APRN, JAVA CORE DEVELOPER #[address] [address] Medication Refill Social History Tobacco Use Types [...] CDT Gender Identity Male 05/03/2023 12:44 PM BUILDING SUPPLIES SALESPERSON RETAIL Sexual Orientation Lesbian or Wolff 05/03/2023 12 :44 PM BUILDING SUPPLIES SALESPERSON RETAIL documented as of this encounter Miscellaneous Notes * Telephone Encounter - Francine Soto RN - 03/17/2024 12:59 PM CDT PCP Tad Mcintosh MD documented in this encounter Plan of Treatment Not on file documented as of this encounter Visit Diagnoses Not on filedocumented in this encounter Care Teams Route Sales Associate Relationship Specialty Start Date End Date Tad Mcintosh MD [address] [place] [address] PCP - General Family Medicine 01/17/24 Srikanth Adrian MD Security Solutions Architect Cardiovascular Disease - Cardiology 02/02/22 08/06/24 Gloria Martinez MD #[address] [address] Consulting Physician Urology 04/30/24 documented as of this encounter
--- OUTSIDE RECORDS SUMMARY | 2024-10-25 07:02 | XMS_ITS | Encounter Summary ---
Author Organization [facility] Address [address] [place] [address] Phone Care Team Providers Care Director Diabetes Name Role Phone Jabier Peck MD Primary Care Provider [phone] Srikanth Adrian MD Unavailable Tad Romero MD Primary Care Provider [phone] Gloria Martinez MD Unavailable [phone] Reason for Visit * Reason Onset Date Comments Medication Refill 03/28/2021 Encounter Details Date Type Department Care Team (Late st Contact Info) Description 03/28/2021 Refill [facility] Medical Group - Family Medicine [facility] #2 [place] [address] Jabier Peck MD #[address] [address] Medication Refill Social History Tobacco Use Types [...] CDT Gender Identity Male 05/03/2023 12:44 PM CINETECHNICIAN Sexual Orientation Lesbian or Wolff 05/03/2023 12 :44 PM CINETECHNICIAN COVID-19 Exposure Response Date Recorded In the [...] [facility] 06/22/20 Office Visit Kishore Prieto APN, DOUBLING MACHINE OPERATOR [facility] Showing recent visits within past 365 days and meeting all other requirements Future Appointments Date Type Provider Dept 04/08/21 Appointment Jabier Peck MD [facility] Showing future appointments within next 90 [...] 19 Confirmed 05/31/2022 05/31/2022 023 12:16 AM CINETECHNICIAN Respiratory Rule Out - RPA 02/26/2023 02/26/2023 0 02/26/2023 11:31 AM CDT COVID - 19 02/26/2023 02/26/2023 03/08/2023 12:1 6 AM CDT documented as of this encounter Care Teams Director Diabetes Relationship Specialty Start Date End Date Jabier Peck MD #2 [facility] [address] [place] [address] PCP - General Family Medicine 06/22/20 01/16/24 Tad Mcintosh MD [address] [place] [address] PCP - General Family Medicine 01/17/24 Srikanth Adrian MD #2 [facility] [address] [place] [address] Toe Lining Closer Cardiovascular Disease - Cardiology 02/02/22 08/06/24 Gloria Martinez MD #2 [facility] [address] [place] [address] Consulting Physician Urology 04/30/24 documented as of this encounter
--- OUTSIDE RECORDS SUMMARY | 2024-10-25 07:02 | XMS_ITS | Encounter Summary ---
Author Organization [facility] Address [address] [place] [address] Phone Care Team Providers Care Photography Coordinator Name Role Phone Jabier Peck MD Primary Care Provider [phone] Srikanth Adrian MD Unavailable Tad Romero MD Primary Care Provider [phone] Gloria Martinez MD Unavailable [phone] Reason for Visit * Reason Comments Medication Refill Encounter Details Date Type Department Care Team (Late st Contact Info) Description 06/16/2021 Refill [facility] - Family [facility] #2 [place] [address] Jabier Peck MD #[address] [address] Medication Refill Social History Tobacco Use Types [...] CDT Gender Identity Male 05/03/2023 12:44 PM FIRE BEHAVIOR ANALYST Sexual Orientation Lesbian or Wolff 05/03/2023 12 :44 PM FIRE BEHAVIOR ANALYST COVID-19 Exposure Response Date Recorded In the last month, have you been in contact with someone who was confirmed or suspected to have Coronavirus / COVID-19? No / Unsure 06/16/2021 1:10 PM FIRE BEHAVIOR ANALYST documented as of this encounter Miscellaneous [...] RICHARD [facility] 10/20/20 Office Visit Jabier Pekc MD [facility] 08/20/20 Telemedicine Kishore Prieto APRN, RICHARD [facility] 08/06/20 Telemedicine Kishore Prieto APRN, RICHARD [facility] 06/22/20 Office Visit Kishore Prieto APRN, RETORT CONDENSER ATTENDANT [facility] Showing recent visits within past 365 days and meeting all other requirements Future Appointments Date Type Provider Dept 08/01/21 Appointment Jabier Peck MD [facility] Showing future appointments within next 90 days and meeting all other requirements BEHAVIOR ANALYST documented in this encounter Plan of Treatment Not on file documented as of this encounter Visit Diagnoses Diagnosis Cervical radiculopathy Brachial neuritis or radiculitis nos documented in this encounter Additional Health Concerns Infection Onset Date Last Indicated Resolved Time COVID - 19 Confirmed 05/31/2022 05/31/2022 023 12:16 AM FIRE BEHAVIOR ANALYST Respiratory Rule Out - RPA 02/26/2023 02/26/2023 0 02/26/2023 11:31 AM CDT COVID - 19 02/26/2023 02/26/2023 03/08/2023 12:1 6 AM CDT documented as of this encounter Care Teams Photography Coordinator Relationship Specialty Start Date End Date Jabier Peck MD #2 [facility] [address] [place] [address] PCP - General Family Medicine 06/22/20 01/16/24 Tad Mcitnosh MD [address] [place] [address] PCP - General Family Medicine 01/17/24 Srikanth Adrian MD #2 [facility] [address] [place] [address] Truck Repair Service Estimator Cardiovascular Disease - Cardiology 02/02/22 08/06/24 Gloria Martinez MD #[address] [facility] [address] [place] [address] Consulting Physician Urology 04/30/24 documented as of this encounter
--- OUTSIDE RECORDS SUMMARY | 2024-10-25 07:02 | XMS_ITS | Encounter Summary ---
Author Organization [facility] Address [address] [place] [address] Phone Care Team Providers Care Elastic Yarn Twister Name Role Phone Jabier Peck MD Primary Care Provider [phone] Srikanth Adrian MD Unavailable Tad Romero MD Primary Care Provider [phone] Gloria Martinez MD Unavailable [phone] Reason for Visit * Reason Comments Medication Refill Encounter Details Date Type Department Care Team (Late st Contact Info) Description 07/20/2021 Refill [facility] Medical Group - Family [facility] #2 [place] [address] Jabier Peck MD #[address] [address] Medication Refill Social History Tobacco Use Types [...] CDT Gender Identity Male 05/03/2023 12:44 PM COMMODITY MANAGEMENT SPECIALIST Sexual Orientation Lesbian or Wolff 05/03/2023 12 :44 PM COMMODITY MANAGEMENT SPECIALIST COVID-19 Exposure Response Date Recorded In the last month, have you been in contact with someone who was confirmed or suspected to have Coronavirus / COVID-19? No / Unsure 07/14/2021 12:17 PM COMMODITY MANAGEMENT SPECIALIST documented as of this encounter Miscellaneous [...] [facility] 08/06/20 Telemedicine Kishore Prieto APRN, CARBONIZER TESTER [facility] Showing recent visits within past 365 days and meeting all other requirements Future Appointments Date Type Provider Dept 08/01/21 Appointment Jabier Peck MD [facility] Showing future appointments within next 90 days and meeting all other requirements ODITY MANAGEMENT SPECIALIST documented in this encounter Plan of Treatment Not on file documented as of this encounter Visit Diagnoses Diagnosis Cervical radiculopathy Brachial neuritis or radiculitis nos documented in this encounter Additional Health Concerns Infection Onset Date Last Indicated Resolved Time COVID - 19 Confirmed 05/31/2022 05/31/2022 023 12:16 AM COMMODITY MANAGEMENT SPECIALIST Respiratory Rule Out - RPA 02/26/2023 02/26/2023 0 02/26/2023 11:31 AM CDT COVID - 19 02/26/2023 02/26/2023 03/08/2023 12:1 6 AM CDT documented as of this encounter Care Teams Elastic Yarn Twister Relationship Specialty Start Date End Date Jabier Peck MD #2 [facility] [address] [place] [address] PCP - General Family Medicine 06/22/20 01/16/24 Tad Mcintosh MD [address] [place] [address] PCP - General Family Medicine 01/17/24 Srikanth Adrian MD #2 [facility] [address] [place] [address] Security Operations Center Operator Cardiovascular Disease - Cardiology 02/02/22 08/06/24 Gloria Martinez MD #2 [facility] [address] [place] [address] Consulting Physician Urology 04/30/24 documented as of this encounter
--- OUTSIDE RECORDS SUMMARY | 2024-10-25 07:03 | XMS_ITS | Encounter Summary ---
Author Organization [facility] Address [address] [place] [address] [place] [address] Phone Care Team Providers Care Payroll Coordinator Name Role Phone Jabier Peck MD Primary Care Provider [phone] Srikanth Adrian MD Unavailable Tad Romero MD Primary Care Provider [phone] Gloria Martinez MD Unavailable [phone] Reason for Visit * Reason Onset Date Comments Advice Only 12/18/2022 Encounter Details Date Type Department Care Team (Late st Contact Info) Description 12/18/2022 Telephone [facility] [address] [place] [id number] Jabier Peck MD #[address] [address] Advice Only Social History Tobacco Use Types [...] CDT Gender Identity Male 05/03/2023 12:44 PM SHAPING MACHINE OPERATOR Sexual Orientation Lesbian or Wolff 05/03/2023 12 :44 PM SHAPING MACHINE OPERATOR documented as of this encounter [...] documented as of this encounter Care Teams Payroll Coordinator Relationship Specialty Start Date End Date Jabier Peck MD #[address] [address] PCP - General Family Medicine 06/22/20 01/16/24 Tad Mcintosh MD [address] [place] [address] PCP - General Family Medicine 01/17/24 Srikanth Adrian MD #[address] [address] District Agent Cardiovascular Disease - Cardiology 02/02/22 08/06/24 Gloria Martinez MD #2 [facility], [address] [address] Consulting Physician Urology 04/30/24 documented as of this encounter
--- OUTSIDE RECORDS SUMMARY | 2024-10-25 07:03 | XMS_ITS | Referral Summary ---
Author Organization [facility] Address [address] [place] [address] Care Team Providers Care Radio Reporter Name Role Phone Tad Mcintosh DO Primary [...] 07/17/2024 Assessment & Plan (07/17/2024 1:09 PM PACK CHANGER): Continue increased hydration Avoid acidic foods and fluids for one more week Thrombophilia 01/25/2023 Palpitations 11/22/2022 Chest pain 07/31/2022 Essential hypertension 07/31/2022 Tongue lesion 04/28/2020 Assessment & Plan (06/26/2024 9:29 AM PACK CHANGER): Has pain medication prescribed by Manasa Cortes at [facility] will confirm use of [place] after surgery Stop Eliquis for 5 days before and after Excision of left lateral and right lateral tongue lesions with repair Risks and complications: Anesthesia, bleeding, infection, benign versus malignant pathology, recurrence of lesion, injury to arteries, nerves and veins, scarring and need for further treatment Assessment & Plan (04/28/2020 1:41 PM PACK CHANGER): Speak to [facility] about smoothing out right first [...] week Assessment & Plan (04/28/2020 1:41 PM PACK CHANGER): Speak to [facility] about smoothing out right first [...] (04/18/2019): Added automatically from request for surgery [id number] Hematochezia 03/04/2019 Overview (03/04/2019): Added automatically from request for surgery [id number] Family history of colon cancer 03/04/2019 Overview (03/04/2019): Added automatically from request for surgery [id number] 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 [place] level is in process. Will hold at [...] recommended Assessment & Plan (07/08/2019 3:43 PM PACK CHANGER): Healthy, low carbohydrate lifestyle and exercise for [...] hydration Assessment & Plan (08/10/2017 1:23 PM PACK CHANGER): s/p Right inferior parathyroidectomy - 08/10/2016 pre [...] renal Assessment & Plan (05/01/2017 10:36 PM PACK CHANGER): s/p Right inferior parathyroidectomy - 08/10/2016 pre [...] future Assessment & Plan (08/10/2017 1:24 PM PACK CHANGER): Recheck levels Assessment & Plan (12/17/2016 8:01 AM CDT): Recheck levels Type 2 diabetes mellitus wit h stage 3 chronic kidney disease, with long-term current use of insulin 12/11/2016 Assessment & Plan (07/08/2019 3:42 PM PACK CHANGER): A1c 5.5% Jun 2019 on no medications. [...] needed. Assessment & Plan (08/10/2017 1:26 PM PACK CHANGER): - A1c today 5.5 % - due [...] months. Assessment & Plan (05/01/2017 10:36 PM PACK CHANGER): - reviewed BS log - BS well [...] statin. Assessment & Plan (08/10/2017 1:23 PM PACK CHANGER): On statin therapy - advised to increase physical activity - advised low fat/chol diet and avoid greasy and junk food Assessment & Plan (05/01/2017 10:37 PM PACK CHANGER): On statin therapy - advised to increase [...] activity Assessment & Plan (08/10/2017 1:24 PM PACK CHANGER): BP well controlled, chronic At goal advised [...] f/u with him Explained the risk of tool technician MAK and encourage use of CPAP or [...] quit smoking so they can encourage you. Resaw Machine Operator referral placed. Class 2 severe obesity due t o excess calories with serious comorbidity and body mass index (BMI) of 37.0 to 37.9 in adult 08/16/2012 Overview (09/22/2016): Obesity Assessment & Plan (12/25/2019 1:57 PM CDT): Healthy, low carbohydrate lifestyle and exercise for 150min/week recommended Referral for screw driver operator placed. Assessment & Plan (10/16/2019 11:40 AM [...] greens, fat-free milk, cottage cheese, nuts like [id number], protein bars with 10-15 g of protein [...] discussed. Assessment & Plan (05/01/2017 10:37 PM PACK CHANGER): Obesity is improving with treatment. Discussed the [...] time. Assessment & Plan (05/01/2017 10:37 PM PACK CHANGER): Hypertension is improving with treatment. Continue current [...] Date Smoking Tobacco: Every Day Cigarettes 0.3 43.4 Started: 06/18/1981 Smokeless Tobacco: Never Tobacco Cessation:Ready [...] on file Legal Sex Male 5:22 PM PACK CHANGER Gender Identity Not on file Sexual Orientation Not on file Last Filed Vital Signs Vital Sign Reading Time Taken Comments Blood Pressure 136/84 07/10/2024 4:54 PM PACK CHANGER Pulse 62 07/10/2024 4:54 PM PACK CHANGER Temperature 36.4 C (97.5 F) 07/10/2024 4:54 PM PACK CHANGER Respiratory Rate 16 07/10/2024 4:54 PM PACK CHANGER Oxygen Saturation 97% 07/10/2024 4:54 PM PACK CHANGER Inhaled Oxygen Concentration - - Weight 105.8 kg (233 lb 4 oz) 07/10/2024 10:09 A M PACK CHANGER Height 175.3 cm (5' 9 ) 07/10/2024 10:09 AM PACK CHANGER Body Mass Index 34.44 07/10/2024 10:09 AM PACK CHANGER Plan of Treatment Not on file Medical Devices Implanted Type Area Molybdenum Steamer Operator Device Identifier Shelf Expiration Date Model / Serial / Lot StockStreams Angio-Seal Vip 6fr Closere Device [id number] - [id number] Implanted:Qty: 1 on 10/12/2022 by Eliel Ortiz MD at [facility] Other - see comments [employer] Kalin 03/17/2023 [id number] / / [id number] [employer] [id number] 4mm 44mm Compression Headless Foot Ankle Screw Bone - [id number] Implanted:Qty: 1 on 04/25/2019 by Chidi Rios DPM at [facility] Right: Toes [employer] [id number] / / [employer] Usa Ezm 03-27-10 Easyclip Si 2mm [id number] Monocortical Superelastic Reamer - [id number] Implanted:Qty: 1 on 04/25/2019 by Chidi Rios DPM at [facility] Right: Toes [employer] [place] 11/16/2023 EZIvett 03-27-10 / / [id number] [employer] Ezm 10-10-10 Easyclip Si 2mm [id number] Monocortical Superelastic Reamer - [id number] Implanted:Qty: 1 on 04/25/2019 by Chidi Rios DPM at [facility] Right: Toes [employer] 11/16/2023 EZM 10-10-10 / / [id number] Toe Tac Xpress Hammertoe Fixation System Implanted:Qty: 2 on 04/25/2019 by Chidi Rios DPM at [facility] Right: Toes [employer] [id number] 05/27/2021 [id number] / [id number] / [id number] [employer] Wire Implanted:Qty: 1 on 04/25/2019 by Chidi Rios DPM at [facility] Right: Toes [employer] 07/18/2028 [id number] / / [id number] Procedures Procedure Name Priority Date/Time Associated Diagnosis Comments EGFR STAT 04/19/2023 3:53 PM CDT HEMOGLOBIN A1C Routine 12/13/2019 2:55 PM CDT LIPID PANEL Routine 05/17/2018 2:25 PM PACK CHANGER Type 2 diabetes mellitus with hyperglycemia, with long-term current use of insulin (HCC) from Last 3 Months or Most Recently Relevant to Health Maintenance Results * eGFR (04/19/2023 3:53 PM CDT) eGFR 51 mL/min/1. 73 m2 [facility] [place] Comment: Interpretive Data Reference Interval Normal >/= [...] ORDERABLE S Final Result Performing Organization Address City/[facility]/ZIP Co de Phone Number [facility] [place] 1 [facility] Department [place] [address] * (ABNORMAL) Hemoglobin A1c (12/13/2019 2:55 PM CDT) Blood specimen (specimen) 12/13/2019 2:55 PM CDT Narrative [facility] - 12/13/2019 2:55 PM CDT Results in labs Aliza Carlson MD LAB BLOOD ORDERABLES Becky l Result Performing Organization Address [facility]/ZIP Co de Phone Number [place], [place] [phone] * (ABNORMAL) Lipid panel (05/17/2018 2:25 PM PACK CHANGER) Cholesterol 159 30 - 199 mg/dL JANUARY [...] 2018. Triglycerides 143 <=149 mg/dL [facility] [place] Comment: Interpretive Data Ages < or = [...] (EVER) Blood specimen (specimen) 05/17/2018 2:25 PM PACK CHANGER 05/17/2018 5:15 PM PACK CHANGER Narrative [facility] ([place]) - 05/17/2018 6:14 PM PACK CHANGER Cleoja Levi Sims MD LAB BLOOD ORDERABLE S Final Result [facility] ([place]) 1 [facility] Department [place] [address] from Last 3 Months or Most Recently Relevant to Health Maintenance Insurance IDPA [facility] MEDICARE ADVANTAGE MEDICARE [facility] MEDICARE ADVANTAGE [facility] MEDICARE ADVANTAGE IDPA [facility] MEDICARE ADVANTAGE Advance Directives For more information, please contact: [phone] * Full Code (Latest Code Status on File) Date Activated Date Inactivated Comments 10/12/2022 2:12 PM 10/12/2022 10:46 PM * Full Code Date Activated Date Inactivated Comments 09/24/2017 9:04 PM 09/30/2017 5:22 PM Care Teams Radio Reporter Relationship Specialty Start Date End Date Tad Mcintosh DO [address] [place] [address] PCP - General Family Medicine 1/9/25
--- OUTSIDE RECORDS SUMMARY | 2024-10-25 07:03 | XMS_ITS | Encounter Summary ---
Author Organization [facility] Address [address] [place] [address] Phone Care Team Providers Care Roustabout Pusher Name Role Phone Jabier Peck MD Primary Care Provider [phone] Srikanth Adrian MD Unavailable Tad Romero MD Primary Care Provider [phone] Gloria Martinez MD Unavailable [phone] Reason for Visit * Reason Comments Medication Refill Encounter Details Date Type Department Care Team (Late st Contact Info) Description 03/29/2022 Refill [facility] #2 [place] [address] Jabier Peck MD #[address] [address] Medication Refill Social History Tobacco Use Types [...] CDT Gender Identity Male 05/03/2023 12:44 PM SCREEN MAKING TECHNICIAN Sexual Orientation Lesbian or Wolff 05/03/2023 12 :44 PM SCREEN MAKING TECHNICIAN COVID-19 Exposure Response Date Recorded In [...] 19 Confirmed 05/31/2022 05/31/2022 023 12:16 AM SCREEN MAKING TECHNICIAN Respiratory Rule Out - RPA 02/26/2023 02/26/2023 0 02/26/2023 11:31 AM CDT COVID - 19 02/26/2023 02/26/2023 03/08/2023 12:1 6 AM CDT documented as of this encounter Care Teams Roustabout Pusher Relationship Specialty Start Date End Date Jabier Peck MD #2 [facility] [address] [place] [address] PCP - General Family Medicine 06/22/20 01/16/24 Tad Mcintosh MD [address] [place] [address] PCP - General Family Medicine 01/17/24 Srikanth Adrian MD #2 [facility] [address] [place] [address] Score Caller Cardiovascular Disease - Cardiology 02/02/22 08/06/24 Gloria Martinez MD #2 [facility] [address] [place] [address] Consulting Physician Urology 04/30/24 documented as of this encounter
--- OUTSIDE RECORDS SUMMARY | 2024-10-25 07:03 | XMS_ITS | Encounter Summary ---
Author Organization [facility] Address [address] [place] [address] Phone Care Team Providers Care Flat Surfacer Jewel Name Role Phone Jabier Peck MD Primary Care Provider [phone] Srikanth Adrian MD Unavailable Tad Romero MD Primary Care Provider [phone] Gloria Martinez MD Unavailable [phone] Reason for Visit * Reason Comments Medication Refill Encounter Details Date Type Department Care Team (Late st Contact Info) Description 06/21/2022 Refill [facility] #2 [place] [address] Jabier Peck MD #[address] [address] Medication Refill Social History Tobacco Use Types [...] CDT Gender Identity Male 05/03/2023 12:44 PM PEDIATRIC PSYCHIATRIST Sexual Orientation Lesbian or Wolff 05/03/2023 12 :44 PM PEDIATRIC PSYCHIATRIST COVID-19 Exposure Response Date Recorded In the last 10 days, have yo u been in contact with someone who was confirmed or suspected to have Coronavirus/COVID-19? Yes 05/31/2022 2:12 PM PEDIATRIC PSYCHIATRIST documented as of this encounter Miscellaneous Notes * Telephone Encounter - Libertad Shearer RN - 06/21/2022 1:33 PM CST Name from pharmacy: [facility] Will file in chart as: [facility] Caps[facility] The original prescription was discontinued on 02/24/2022 by Kishore Prieto APRN, RICHARD for thefollowing reason: Med List Clean Up. Renewing this prescription may not be appropriate. ATRIC PSYCHIATRIST documented in this encounter Plan of Treatment Not on file documented as of this encounter Visit Diagnoses Not on filedocumented in this encounter Additional Health Concerns Infection Onset Date Last Indicated Resolved Time Respiratory Rule Out - RPA 02/26/2023 02/26/2023 0 02/26/2023 11:31 AM CDT COVID - 19 02/26/2023 02/26/2023 03/08/2023 12:1 6 AM CDT documented as of this encounter Care Teams Flat Surfacer Jewel Relationship Specialty Start Date End Date Jabier Peck MD #[address] [address] PCP - General Family Medicine 06/22/20 01/16/24 Tad Mcintosh MD [address] [place] [address] PCP - General Family Medicine 01/17/24 Srikanth Adrian MD #[address] [address] Manager Intranet Cardiovascular Disease - Cardiology 02/02/22 08/06/24 Gloria Martinez MD #2 [place] [address] Consulting Physician Urology 04/30/24 documented as of this encounter
--- OUTSIDE RECORDS SUMMARY | 2024-10-25 07:03 | XMS_ITS | Encounter Summary ---
Author Organization [facility] Address [address] [place] [address] Phone Care Team Providers Care Ballroom Dancer Name Role Phone Jabier Peck MD Primary Care Provider [phone] Srikanth Adrian MD Unavailable Tad Romero MD Primary Care Provider [phone] Gloria Martinez MD Unavailable [phone] Reason for Visit * Reason Comments Medication Refill Encounter Details Date Type Department Care Team (Late st Contact Info) Description 03/24/2022 Refill [facility] Medical Group - Family Medicine [facility] #2 [place] [address] Kishore Prieto, WOOD FENCE ERECTOR, SILK BLOCKER #[address] [address] Medication Refill Social History Tobacco Use Types [...] Gender Identity Male 05/03/2023 12:44 PM CHILD CENTER ASSISTANT Sexual Orientation Lesbian or Wolff 05/03/2023 12 :44 PM CHILD CENTER ASSISTANT COVID-19 Exposure Response Date Recorded In [...] or radiculitis, unspecified documented in this encounter Additional Health Concerns Infection Onset Date Last Indicated Resolved Time COVID - 19 Confirmed 05/31/2022 05/31/2022 023 12:16 AM CHILD CENTER ASSISTANT Respiratory Rule Out - RPA 02/26/2023 02/26/2023 0 02/26/2023 11:31 AM CDT COVID - 19 02/26/2023 02/26/2023 03/08/2023 12:1 6 AM CDT documented as of this encounter Care Teams Ballroom Dancer Relationship Specialty Start Date End Date Jabier Peck MD #2 [facility] [address] [place] [address] PCP - General Family Medicine 06/22/20 01/16/24 Tad Mcintosh MD [address] [place] [address] PCP - General Family Medicine 01/17/24 Srikanth Adrian MD #2 [facility] [address] [place] [address] Medical Social Consultant Cardiovascular Disease - Cardiology 02/02/22 08/06/24 Gloria Martinez MD #2 [facility] [address] [place] [address] Consulting Physician Urology 04/30/24 documented as of this encounter
--- OUTSIDE RECORDS SUMMARY | 2024-10-25 07:03 | XMS_ITS | Encounter Summary ---
Author Organization [facility] Address [address] [facility] [place] [address] Phone Care Team Providers Care Director Of Oncology Name Role Phone Jabier Peck MD Primary Care Provider [phone] Srikanth Adrian MD Unavailable Tad Romero MD Primary Care Provider [phone] Gloria Martinez MD Unavailable [phone] Reason for Visit * Reason Comments Medication Refill Encounter Details Date Type Department Care Team (Late st Contact Info) Description 05/25/2022 Refill [facility] On[facility] [address] [place] [id number] Jt Morillo MD [address] [place] [address] Medication Refill Social History Tobacco Use Types [...] CDT Gender Identity Male 05/03/2023 12:44 PM STATIONARY BOILER FIREMAN Sexual Orientation Lesbian or Wolff 05/03/2023 12 :44 PM STATIONARY BOILER FIREMAN COVID-19 Exposure Response Date Recorded In the last 10 days, have yo u been in contact with someone who was confirmed or suspected to have Coronavirus/COVID-19? No / Unsure 05/10/2022 2:32 PM STATIONARY BOILER FIREMAN documented as of this encounter Miscellaneous Notes * Telephone Encounter - Aisha Escamilla RN - 05/26/2022 11:00 AM CST Approved Eliquis per last f/u note. Pt to be on indefinite AC. IONARY BOILER FIREMAN documented in this encounter Plan of Treatment Not on file documented as of this encounter Visit Diagnoses Diagnosis History of thrombophilia associated with MTHFR mutation documented in this encounter Additional Health Concerns Infection Onset Date Last Indicated Resolved Time COVID - 19 Confirmed 05/31/2022 05/31/2022 023 12:16 AM STATIONARY BOILER FIREMAN Respiratory Rule Out - RPA 02/26/2023 02/26/2023 0 02/26/2023 11:31 AM CDT COVID - 19 02/26/2023 02/26/2023 03/08/2023 12:1 6 AM CDT documented as of this encounter Care Teams Director Of Oncology Relationship Specialty Start Date End Date Jabier Peck MD #[address] [address] PCP - General Family Medicine 06/22/20 01/16/24 Tad Mcintosh MD [address] [place] [address] PCP - General Family Medicine 01/17/24 Srikanth Adrian MD #2 [facility] [address] [place] [address] Bankruptcy Processor Cardiovascular Disease - Cardiology 02/02/22 08/06/24 Gloria Martinez MD #2 [facility], [address] [address] Consulting Physician Urology 04/30/24 documented as of this encounter
--- OUTSIDE RECORDS SUMMARY | 2024-10-25 07:03 | XMS_ITS | Encounter Summary ---
Author Organization [facility] Address [address] [place] [address] Phone Care Team Providers Care Fisher Eel Name Role Phone Jabier Peck MD Primary Care Provider [phone] Srikanth Adrian MD Unavailable Tad Romero MD Primary Care Provider [phone] Gloria Martinez MD Unavailable [phone] Reason for Visit * Reason Onset Date Comments Medication Refill Requesting new referral to [facility] 11/10/2022 Encounter Details Date Type Department Care Team (Late st Contact Info) Description 11/10/2022 Refill [facility]2 [place] [address] Jabier Peck MD #[address] [address] Medication Refill; Requesting new referral to [facility] Social History Tobacco Use Types Packs/Day [...] CDT Gender Identity Male 05/03/2023 12:44 PM FOREST PATROLMAN Sexual Orientation Lesbian or Wolff 05/03/2023 12 :44 PM FOREST PATROLMAN documented as of this encounter Miscellaneous Notes * Telephone Encounter - Nikky Irby - 11/10/2022 1:42 PM CDT C: Tae Kent is requesting a new referral to [facility]. . Please call Tae (relationship to [...] [facility] 07/20/22 Office Visit Gerri Rocha MD [facility] 05/03/22 Telemedicine Jabier Peck MD [facility] 03/03/22 Office Visit Jabier Peck MD [facility] 02/24/22 Office Visit Kishore Prieto APRN, RICHARD [facility] 01/31/22 Office Visit Kishore Prieto APRN, RICH[facility] 12/13/21 Telemedicine Kishore Prieto APRN, SAS BI DEVELOPER [facility] Showing recent visits within past 365 [...] RICHARD [facility] 12/13/21 Telemedicine Kishore Prieto APRN, SAS BI DEVELOPER [facility] Showing recent visits within past [...] documented as of this encounter Care Teams Fisher Eel Relationship Specialty Start Date End Date Jabier Peck MD #2 [facility] [address] [place] [address] PCP - General Family Medicine 06/22/20 01/16/24 Tad Mcintosh MD [address] [place] [address] PCP - General Family Medicine 01/17/24 Srikanth Adrian MD #2 [facility] [address] [place] [address] Sports Athletic Trainer Cardiovascular Disease - Cardiology 02/02/22 08/06/24 Gloria Martinez MD #2 [facility] [address] [place] [address] Consulting Physician Urology 04/30/24 documented as of this encounter
--- OUTSIDE RECORDS SUMMARY | 2024-10-25 07:03 | XMS_ITS | Encounter Summary ---
Author Organization [facility] Address [address] [facility] [place] [address] Phone Care Team Providers Care Environmental Adviser Name Role Phone Jabier Peck MD Primary Care Provider [phone] Srikanth Adrian MD Unavailable Tad Romero MD Primary Care Provider [phone] Gloria Martinez MD Unavailable [phone] Reason for Visit * Reason Comments Medication Refill Encounter Details Date Type Department Care Team (Late st Contact Info) Description 08/19/2022 Refill [facility] Oncology Services [address] [place] [id number] Jt Morillo MD [address] [place] [address] Medication Refill Social History Tobacco Use Types [...] CDT Gender Identity Male 05/03/2023 12:44 PM EMERGENCY VEHICLE OPERATIONS INSTRUCTOR Sexual Orientation Lesbian or Wolff 05/03/2023 12 :44 PM EMERGENCY VEHICLE OPERATIONS INSTRUCTOR COVID-19 Exposure Response Date Recorded In the last 10 days, have yo u been in contact with someone who was confirmed or suspected to have Coronavirus/COVID-19? No / Unsure 08/21/2022 12:53 PM EMERGENCY VEHICLE OPERATIONS INSTRUCTOR documented as of this encounter Miscellaneous Notes * Telephone Encounter - Aisha Escamilla RN - 08/21/2022 12:02 PM CST Approved Eliquis per last f/u note. GENCY VEHICLE OPERATIONS INSTRUCTOR documented in this encounter Plan of Treatment [...] documented as of this encounter Care Teams Environmental Adviser Relationship Specialty Start Date End Date Jabier Peck MD #2 [facility] [address] [place] [address] PCP - General Family Medicine 06/22/20 01/16/24 Tad Mcintosh MD [address] [place] [address] PCP - General Family Medicine 01/17/24 Srikanth Adrian MD #2 [facility] [address] [place] [address] Soda Flaker Cardiovascular Disease - Cardiology 02/02/22 08/06/24 Gloria Martinez MD #2 [facility] [address] [place] [address] Consulting Physician Urology 04/30/24 documented as of this encounter
--- OUTSIDE RECORDS SUMMARY | 2024-10-25 07:03 | XMS_ITS | Encounter Summary ---
Author Organization [facility] Address [address] [place] [address] Phone Care Team Providers Care Ship Runner Name Role Phone Jabier Peck MD Primary Care Provider [phone] Srikanth Adrian MD Unavailable Tad Romero MD Primary Care Provider [phone] Gloria Martinez MD Unavailable [phone] Reason for Visit * Reason Comments Medication Refill Encounter Details Date Type Department Care Team (Late st Contact Info) Description 07/28/2022 Refill [facility] #2 [place] [address] Jabier Peck MD #[address] [address] Medication Refill Social History Tobacco Use Types [...] CDT Gender Identity Male 05/03/2023 12:44 PM ORE GRADER Sexual Orientation Lesbian or Wolff 05/03/2023 12 :44 PM ORE GRADER COVID-19 Exposure Response Date Recorded In the last 10 days, have yo u been in contact with someone who was confirmed or suspected to have Coronavirus/COVID-19? No / Unsure 07/20/2022 2:30 PM ORE GRADER documented as of this encounter Miscellaneous Notes [...] Dept 07/20/22 Office Visit Gerri Rocha MD [facility] 05/03/22 Telemedicine Jabier Peck MD [facility] 03/03/22 Office Visit Jabier Peck MD [facility] 02/24/22 Office Visit Kishore Prieto APRN, RICHARD [facility] 01/31/22 Office Visit Kishore Prieto APRN, RICHARD [facility] 12/13/21 Telemedicine Kishore Prieto APRN, HELP DESK SUPPORT [facility] 08/01/21 Office Visit Jabier Peck MD [facility] [place] Showing recent visits within past 365 days and meeting all other requirements Future Appointments No visits were found meeting these conditions. Showing future appointments within next 90 days and meeting all other requirements GRADER documented in this encounter Plan of Treatment [...] documented as of this encounter Care Teams Ship Runner Relationship Specialty Start Date End Date Jabier Peck MD #2 [facility] [address] [place] [address] PCP - General Family Medicine 06/22/20 01/16/24 Tad Mcintosh MD [address] [place] [address] PCP - General Family Medicine 01/17/24 Srikanth Adrian MD #2 [facility] [address] [place] [address] Sod Farmer Cardiovascular Disease - Cardiology 02/02/22 08/06/24 Gloria Martinez MD #2 [facility] [address] [place] [address] Consulting Physician Urology 04/30/24 documented as of this encounter
--- OUTSIDE RECORDS SUMMARY | 2024-10-25 07:03 | XMS_ITS | Encounter Summary ---
Author Organization [facility] Address [address] [place] [address] Phone Care Team Providers Care Premium Cancellation Clerk Name Role Phone Jabier Peck MD Primary Care Provider [phone] Srikanth Adrian MD Unavailable Tad Romero MD Primary Care Provider [phone] Gloria Martinez MD Unavailable [phone] Reason for Visit * Reason Comments Medication Refill Encounter Details Date Type Department Care Team (Late st Contact Info) Description 07/10/2022 Refill [facility] - Family [facility] #2 [place] [address] Jabier Peck MD #[address] [address] Medication Refill Social History Tobacco Use Types [...] CDT Gender Identity Male 05/03/2023 12:44 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 ASSEMBLER documented in this encounter Plan of Treatment Not on file documented as of this encounter Visit Diagnoses Not on filedocumented in this encounter Additional Health Concerns Infection Onset Date Last Indicated Resolved Time Respiratory Rule Out - RPA 02/26/2023 02/26/2023 0 02/26/2023 11:31 AM CDT COVID - 19 02/26/2023 02/26/2023 03/08/2023 12:1 6 AM CDT documented as of this encounter Care Teams Premium Cancellation Clerk Relationship Specialty Start Date End Date Jabier Peck MD #[address] [address] PCP - General Family Medicine 06/22/20 01/16/24 Tad Mcintosh MD [address] [place] [address] PCP - General Family Medicine 01/17/24 Srikanth Adrian MD #2 [facility] [address] [place] [address] Memory Care Program Director Cardiovascular Disease - Cardiology 02/02/22 08/06/24 Gloria Martinez MD #[address] [address] Consulting Physician Urology 04/30/24 documented as of this encounter
--- OUTSIDE RECORDS SUMMARY | 2024-10-25 07:03 | XMS_ITS | Encounter Summary ---
Author Organization [facility] Address [address] [place] [address] Phone Care Team Providers Care Embossing Press Operator Name Role Phone Jabier Peck MD Primary Care Provider [phone] Srikanth Adrian MD Unavailable Tad Romero MD Primary Care Provider [phone] Gloria Martinez MD Unavailable [phone] Reason for Visit * Reason Comments Medication Refill Encounter Details Date Type Department Care Team (Late st Contact Info) Description 10/24/2022 Refill [facility] #2 [place] [address] Jabier Peck MD #[address] [address] Medication Refill Social History Tobacco Use Types [...] CDT Gender Identity Male 05/03/2023 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 Sexual Orientation Lesbian or Wolff 05/03/2023 12 :44 PM TICKET MAKER documented as of this encounter Miscellaneous [...] Telemedicine Kishore Prieto APRN, RICHARD [facility] Showing recent visits within past 365 [...] documented as of this encounter Care Teams Embossing Press Operator Relationship Specialty Start Date End Date Jabier Peck MD #2 [facility] [address] [place] [address] PCP - General Family Medicine 06/22/20 01/16/24 Tad Mcintosh MD [address] [place] [address] PCP - General Family Medicine 01/17/24 Srikanth Adrian MD #2 [facility] [address] [place] [address] Chief Engineering Division Cardiovascular Disease - Cardiology 02/02/22 08/06/24 Gloria Martinez MD #2 [facility] [address] [place] [address] Consulting Physician Urology 04/30/24 documented as of this encounter
--- OUTSIDE RECORDS SUMMARY | 2024-10-25 07:03 | XMS_ITS | Encounter Summary ---
Author Organization [facility] Address [address] [place] [address] Phone Care Team Providers Care Assistant Professor Of Nursing Name Role Phone Jabier Peck MD Primary Care Provider [phone] Srikanth Adrian MD Unavailable Tad Romero MD Primary Care Provider [phone] Gloria Martinez MD Unavailable [phone] Reason for Visit * Reason Comments Medication Refill Encounter Details Date Type Department Care Team (Late st Contact Info) Description 06/20/2022 Refill [facility] #2 [place] [address] Jabier Peck MD #[address] [address] Medication Refill Social History Tobacco Use Types [...] Gender Identity Male 05/03/2023 12:44 PM DIRECTOR OF BROADCAST Sexual Orientation Lesbian or Wolff 05/03/2023 12 :44 PM DIRECTOR OF BROADCAST COVID-19 Exposure Response Date Recorded In the last 10 days, have yo u been in contact with someone who was confirmed or suspected to have Coronavirus/COVID-19? Yes 05/31/2022 2:12 PM DIRECTOR OF BROADCAST documented as of this encounter Miscellaneous Notes [...] [facility] 12/13/21 Telemedicine Kishore Prieto APRN, RICHARD [facility] 08/01/21 Office Visit Jabier Peck MD [facility] Showing recent visits within past 365 days and meeting all other requirements Future Appointments Date Type Provider Dept 06/27/22 Appointment Kishore Prieto APRN, RICHARD [facility] Showing future appointments within next 90 days and meeting all other requirements CTOR OF BROADCAST documented in this encounter Plan of Treatment Not on file documented as of this encounter Visit Diagnoses Diagnosis Cervical radiculopathy Brachial neuritis or radiculitis nos documented in this encounter Additional Health Concerns Infection Onset Date Last Indicated Resolved Time COVID - 19 Confirmed 05/31/2022 05/31/2022 023 12:16 AM DIRECTOR OF BROADCAST Respiratory Rule Out - RPA 02/26/2023 02/26/2023 0 02/26/2023 11:31 AM CDT COVID - 19 02/26/2023 02/26/2023 03/08/2023 12:1 6 AM CDT documented as of this encounter Care Teams Assistant Professor Of Nursing Relationship Specialty Start Date End Date Jabier Peck MD #2 [facility] [address] [place] [address] PCP - General Family Medicine 06/22/20 01/16/24 Tad Mcintosh MD [address] [place] [address] PCP - General Family Medicine 01/17/24 Srikanth Adrian MD #2 [facility] [address] [place] [address] Picker Tender Cardiovascular Disease - Cardiology 02/02/22 08/06/24 Gloria Martinez MD #2 [facility] [address] [place] [address] Consulting Physician Urology 04/30/24 documented as of this encounter
--- OUTSIDE RECORDS SUMMARY | 2024-10-25 07:03 | XMS_ITS | Encounter Summary ---
Author Organization [facility] Address [address] [place] [address] Phone Care Team Providers Care Goodyear Stitcher Name Role Phone Jabier Peck MD Primary Care Provider [phone] Srikanth Adrian MD Unavailable Tad Romero MD Primary Care Provider [phone] Gloria Martinez MD Unavailable [phone] Reason for Visit * Reason Comments Medication Refill Encounter Details Date Type Department Care Team (Late st Contact Info) Description 05/14/2022 Refill [facility] #2 [place] [address] Jabier Peck MD #[address] [address] Medication Refill Social History Tobacco Use Types [...] CDT Gender Identity Male 05/03/2023 12:44 PM QUILLER HAND Sexual Orientation Lesbian or Wolff 05/03/2023 12 :44 PM QUILLER HAND COVID-19 Exposure Response Date Recorded In the last 10 days, have yo u been in contact with someone who was confirmed or suspected to have Coronavirus/COVID-19? No / Unsure 05/10/2022 2:32 PM QUILLER HAND documented as of this encounter Miscellaneous Notes * Telephone Encounter - Anjali Hartley RN - 05/15/2022 9:34 AM QUILLER HAND PDMP 04/18/2022 #45, 15 day supply. Medication [...] Dept 06/14/22 Appointment Kishore Prieto APRN, RICHARD [facility] Showing future appointments within next 90 days and meeting all other requirements LER HAND documented in this encounter Plan of Treatment Not on file documented as of this encounter Visit Diagnoses Diagnosis Cervical radiculopathy Brachial neuritis or radiculitis nos documented in this encounter Additional Health Concerns Infection Onset Date Last Indicated Resolved Time COVID - 19 Confirmed 05/31/2022 05/31/2022 023 12:16 AM QUILLER HAND Respiratory Rule Out - RPA 02/26/2023 02/26/2023 0 02/26/2023 11:31 AM CDT COVID - 19 02/26/2023 02/26/2023 03/08/2023 12:1 6 AM CDT documented as of this encounter Care Teams Goodyear Stitcher Relationship Specialty Start Date End Date Jabier Peck MD #2 [facility] [address] [place] [address] PCP - General Family Medicine 06/22/20 01/16/24 Tad Mcintosh MD [address] [place] [address] PCP - General Family Medicine 01/17/24 Srikanth Adrian MD #2 [facility] [address] [place] [address] Shook Machine Operator Cardiovascular Disease - Cardiology 02/02/22 08/06/24 Gloria Martinez MD #2 [facility] [address] [place] [address] Consulting Physician Urology 04/30/24 documented as of this encounter
--- OUTSIDE RECORDS SUMMARY | 2024-10-25 07:03 | XMS_ITS | Encounter Summary ---
Author Organization [facility] Address [address] [place] [address] Phone Care Team Providers Care Military Science Instructor Name Role Phone Jabier Peck MD Primary Care Provider [phone] Srikanth Adrian MD Unavailable Tad Romero MD Primary Care Provider [phone] Gloria Martinez MD Unavailable [phone] Reason for Visit * Reason Comments Medication Refill Encounter Details Date Type Department Care Team (Late st Contact Info) Description 08/30/2022 Refill [facility] #2 [place] [address] Jabier Peck MD #[address] [address] Medication Refill Social History Tobacco Use Types [...] CDT Gender Identity Male 05/03/2023 12:44 PM BILLBOARD ERECTOR HELPER Sexual Orientation Lesbian or Wolff 05/03/2023 12 :44 PM BILLBOARD ERECTOR HELPER COVID-19 Exposure Response Date Recorded In the last 10 days, have yo u been in contact with someone who was confirmed or suspected to have Coronavirus/COVID-19? No / Unsure 08/21/2022 12:53 PM BILLBOARD ERECTOR HELPER documented as of this encounter Miscellaneous Notes [...] [facility] 01/31/22 Office Visit Kishore Prieto APRN, DIRECTOR MEDICAL SAFETY [facility] 12/13/21 Telemedicine Kishore Prieto APRN, DIRECTOR MEDICAL SAFETY [facility] Showing recent visits within past 365 days [...] documented as of this encounter Care Teams Military Science Instructor Relationship Specialty Start Date End Date Jabier Peck MD #2 [facility] [address] [place] [address] PCP - General Family Medicine 06/22/20 01/16/24 Tad Mcintosh MD [address] [place] [address] PCP - General Family Medicine 01/17/24 Srikanth Adrian MD #2 [facility] [address] [place] [address] Baby Counselor Cardiovascular Disease - Cardiology 02/02/22 08/06/24 Gloria Martinez MD #2 [facility] [address] [place] [address] Consulting Physician Urology 04/30/24 documented as of this encounter
--- OUTSIDE RECORDS SUMMARY | 2024-10-25 07:03 | XMS_ITS | Encounter Summary ---
Author Organization [facility] Address [address] [place] [address] Phone Care Team Providers Care Examining Chair Assembler Name Role Phone Jabier Peck MD Primary Care Provider [phone] Srikanth Adrian MD Unavailable Tad Romero MD Primary Care Provider [phone] Gloria Martinez MD Unavailable [phone] Reason for Visit * Reason Comments Medication Refill Encounter Details Date Type Department Care Team (Late st Contact Info) Description 06/12/2022 Refill [facility] - Family [facility] #2 [place] [address] Jabier Peck MD #[address] [address] Medication Refill Social History Tobacco Use Types [...] CDT Gender Identity Male 05/03/2023 12:44 PM BAND SAW RUNNER Sexual Orientation Lesbian or Wolff 05/03/2023 12 :44 PM BAND SAW RUNNER COVID-19 Exposure Response Date Recorded In the last 10 days, have yo u been in contact with someone who was confirmed or suspected to have Coronavirus/COVID-19? Yes 05/31/2022 2:12 PM BAND SAW RUNNER documented as of this encounter Miscellaneous Notes * Telephone Encounter - Anjali Hartley RN - 06/13/2022 11:16 AM BAND SAW RUNNER Medication warning. Per nursing clinical judgement, provider [...] [facility] 12/13/21 Telemedicine Kishore Prieto APRN, RICHARD [facility] 08/01/21 Office Visit Jabier Peck MD [facility] Showing recent visits within past 365 days and meeting all other requirements Future Appointments Date Type Provider Dept 06/14/22 Appointment Kishore Prieto APRN, RICHARD [facility] Showing future appointments within next 90 days and meeting all other requirements SAW RUNNER documented in this encounter Plan of Treatment Not on file documented as of this encounter Visit Diagnoses Not on filedocumented in this encounter Additional Health Concerns Infection Onset Date Last Indicated Resolved Time COVID - 19 Confirmed 05/31/2022 05/31/2022 023 12:16 AM BAND SAW RUNNER Respiratory Rule Out - RPA 02/26/2023 02/26/2023 0 02/26/2023 11:31 AM CDT COVID - 19 02/26/2023 02/26/2023 03/08/2023 12:1 6 AM CDT documented as of this encounter Care Teams Examining Chair Assembler Relationship Specialty Start Date End Date Jabier Peck MD #2 [facility] [address] [place] [address] PCP - General Family Medicine 06/22/20 01/16/24 Tad Mcintosh MD [address] [place] [address] PCP - General Family Medicine 01/17/24 Srikanth Adrian MD #2 [facility] [address] [place] [address] Case Fitter Cardiovascular Disease - Cardiology 02/02/22 08/06/24 Gloria Martinez MD #2 [facility] [address] [place] [address] Consulting Physician Urology 04/30/24 documented as of this encounter
--- OUTSIDE RECORDS SUMMARY | 2024-10-25 07:03 | XMS_ITS | Data Portability ---
Author Organization [place] [facility], Laurence Mondragno - [facility] Address [address] [place] [address] Care Team Providers Care Tape Librarian Name Role Phone [facility] OTHER Assessment Encounter Date Assessment Date Assessment [...] By Organization Details Last Modified Time 11/18/2019 [id number] Recommend seeing neurologist of his choice or [...] week abalettie Not available 11/18/2019 14:02:44 11/25/2019 [id number] Recommend, he would like to persue and discussed bilateral hammer toe surgery (arthrodesis B2,3,4 and arthroplasty B5). Likely ulcer will reoccur wo it. dc buttress. use cotton ball under the toe and continue maryuri/cotton/paper tape to the ulcer. Has improved nicely. get xrays L foot next visit. fu 1 wk ok to schedule surgery prn abalettie Not available 11/25/2019 15:25:12 12/02/2019 [id number] He said he is going to look into a lawsuit against his previous surgeon and asked me if I would talk to him, but he cannot remember his name and will have the transactional attorney call us for an appointment if needed. He has not gotten blood work done yet debrided ulcer, continue cotton under the toe too to offload, toe pads made it hurt more xray taken 1 view L foot to review hammer toes on that side. nc fu 2 wk for preop and wound care. abalettie Not available 12/02/2019 16:48:53 01/05/2020 [id number] has not fu in a month was [...] wk abalettie Not available 01/06/2020 10:34:37 01/13/2020 [id number] He has pain and his ulcer is not healing he has not gotten blood work done to look at his healing factors I would like to refer him to a wound care center of his choice. He knows of one in [place], [place] that he would like to go [...] Address Organization Details Recorded Time 01/13/20 20 [id number] Ulcer Debridement completed [facility] 01/13/2020 17:44:57 01/05/20 20 47097 Ulcer Debridement completed [facility] 01/06/2020 10:31:49 12/02/19 20 [id number] Ulcer Debridement completed [facility] 12/02/2019 16:46:21 11/25/19 20 [id number] Ulcer Debridement completed [facility] 11/25/2019 15:20:30 11/25/19 20 [id number] Est. 20-29 min completed [facility] 11/25/2019 15:20:12 11/18/19 20 31763 X-rays 3v Feet Normal completed [facility] 11/18/2019 13:56:31 11/18/19 20 35955 Ulcer Debridement completed [facility] 11/18/2019 13:53:44 11/18/19 20 [id number]-- VACUUM METALIZER OPERATOR H&P Exam 30-44 minutes completed [facility] 11/18/2019 13:53:28 Tonsillectomy completed MORGAN BURGER [facility] 11/18/2019 12:23:22 Foot Surgery completed Michelle Spangler [place] - [facility] 11/18/2019 13:21:53 hammer toe operation completed Michelle Spangler [place] [facility] 11/18/2019 13:22:01 Imaging Results None recorded. Procedure Notes None recorded. Medical Equipment None Reported. Allergies Allergen ID Allergen Name Allergen Category Reaction Reaction Severity Criticality Documentation Date Start Date Code Code System Note Provider Name and Address Organization Details Recorded Time 15061 acetamino phen / hydrocodo ne medicatio n Not available Not available Not available 11/25/2019 62546 2 RxNorm addic tion, abuse r Michelle Spangler null, [place] - Foot [facility] 0 12:16:29 Medications Name Sig Start Date [...] Available Not Available cefazolin sodium 1 gm [facility] 12/02 completed Not Available Not Available Not Available hydroco/apa p tab 10-325mg active Not Available Not Available Not Available venlafaxine hcl er 150 mg cp24 active Not Available Not Available Not Available vancomycin hydrochlori de 1 gm [facility] 12/02 completed Not Available Not Available Not Available ropinirole hcl 2 mg tabs active Not Available Not Available Not Available furosemide 40 mg tabs active Not Available Not Available N ot Available montelukast sodium 10 mg tabs active Not Available Not Available Not Available gabapentin 600 mg tabs active Not Available Not Available Not Available bupropion hydrochlori de er (xl) 300 mg tb24 active Not Available Not Available Not Available metoprolol succinate er 25 mg tb24 12/02 completed Not Available Not Available Not Available linzess 145 mcg caps active Not Available Not Available Not Available levofloxaci n 500 mg tabs 12/02 completed Not Available Not Available Not Available aripiprazol e 20 mg tabs active Not Available Not Available Not Available flovent hfa 110 mcg/act aero 12/02 completed Not Available Not Available Not Available combivent aer 20-100 active Not Available Not Available N ot Available omeprazole 20 mg cpdr active Not Available Not Available N ot Available oxycod/apap tab 5-325mg active Not Available Not Available Not Available atorvastati n calcium 80 mg tabs active Not Available Not Available N ot Available bupropion hydrochlori de er (sr) 150 mg tb12 12/02 completed Not Available Not Available Not Available amoxicillin 500 mg capsule active Not [...] Updated DateTime 11/18/2019 177.8 cm 37.3 kg/m2 990025.02 radha MORGANLATANYA LOUISE [facility] 11/18/2019 12:14:42 Date Recorded Body height Provider Name an d Address Organization Details Last Updated DateTime 11/25/2019 177.8 cm [facility]OU[facility] 11/25/2019 14:25:49 Date Recorded Body height Provider Name an d Address Organization Details Last Updated DateTime 12/02/2019 177.8 cm Paola May [facility] 12/02/2019 14:39:43 Date Recorded Body height Provider Name an d Address Organization Details Last Updated DateTime 01/05/2020 177.8 cm Paola May [place] - [facility] 01/05/2020 16:38:31 Date Recorded Body height Provider Name an d Address Organization Details Last Updated DateTime 01/13/2020 177.8 cm [facility] 01/13/2020 16:40:34 Social History Question Answer Notes LastModified by Organizat ion Details LastModified Time Tobacco Smoking Status Former Smoker MORGAN BURGER [facility] 11/18/2019 12:22:45 What Is Your Level Of [...] N Ulcers on Legs or Feet N HIV or AIDS N Coronary Artery Disease N Gout N Seizure Disorder N High Blood Pressure Y Clot in Lung or Pulmonary Embolism N Menopause N Lung Condition Y Phlebitis or Venous Blood Clot Y Migraines N Depression Y Pacemaker N Anemia N Back Pain N Neurologic Disease Y Sciatica N Heart Attack ([place]) N Urinary Tract Infections N Anxiety Disorder Y Diabetes Y Bleeding Disorder Y Arthritis N Abuse of Alcohol or Drugs Y Back injury N Ear Problems N Cancer N Eye Problems N Stroke Y Dementia N Stomach Problems Y Peripheral Vascular Disease N Sinus Conditions N High Cholesterol Y Thyroid Disorder Y Broken Bone N Hepatitis N Liver Disease N Heart Disease N Rheumatoid Arthritis N Rash Y Osteoporosis N Kidney Disease Y Past Encounters Encounter ID Performer Location Encounter Start Date Encounter Closed Date Diagnosis/Indication Diagnosis SNOMED-CT Code Diagnosis ICD10 Code Diagnosis Note [id number] Michelle Spangler DPM [facility] [address] [place] [address] 11/18/2019 12:00:36 11/18/2019 13:10:53 Disorder of nervous system due to type 2 diabetes mellitus 298557469 E11.49 Diabetic foot ulcer 3710 75327 E13.621 Hammer toe 690465364 M20 .41 M20.42 Amputated big toe 030908 007 Z89.411 Pain in right foot 73384 13628 22214 M79.671 Pain in left foot 491716 2518 73890 M79.672 Ulcer of toe 716386802 L 97.518 [id number] Michelle Spangler DPM [facility] [address] [place] [address] 11/25/2019 14:24:18 11/25/2019 14:52:22 Disorder of nervous system due to type 2 diabetes mellitus 663720808 E11.49 Diabetic foot ulcer 3710 17457 E13.621 Hammer toe 946990739 M20 .41 M20.42 Amputated big toe 235562 007 Z89.411 Pain in right foot 22555 58807 74222 M79.671 Pain in left foot 289719 2221 27323 M79.672 Ulcer of toe 964265137 L 97.518 [id number] EUN Keith [address] [place] [address] 12/02/2019 14:37:47 12/02/2019 14:56:40 Disorder of nervous system due to type 2 diabetes mellitus 386433471 E11.49 Diabetic foot ulcer 3710 88468 E13.621 Ulcer of toe 581292434 L 97.518 [id number] EUN Keith [address] [place] [address] 01/05/2020 16:35:48 01/05/2020 16:52:28 Disorder of nervous system due to type 2 diabetes mellitus 607617397 E11.49 Diabetic foot ulcer 3710 23114 E13.621 Ulcer of toe 706572290 L 97.518 [id number] EUN Keith [address] [place] [address] 1 01/13/2020 16:24:56 01/13/2020 16:59:22 Disorder of nervous system due to type 2 diabetes mellitus 419583806 E11.49 Diabetic foot ulcer 3710 45661 E13.621 Ulcer of toe 818202861 L 97.518 Health Concerns Section Related Observation LastModified by Organization Detai ls LastModified Time None Recorded Concern Status LastModified by Organization Details LastModified Time None Recorded Advance Directives Directive None Recorded Payers Encounter Date Sequence Insurance Name Policy Number Policy Bailey Covered Member ID Bailey Member ID Guarantor Name 11/18/2019 1 [facility] (MEDICARE REPLACEMENT/A DVANTAGE - PPO) [id number] Tae Kent [id number] Tae Kent 11/25/2019 1 [facility] (MEDICARE REPLACEMENT/A DVANTAGE - PPO) [id number] Tae Kent [id number] Tae Kent 12/02/2019 1 [facility] (MEDICARE REPLACEMENT/A DVANTAGE - PPO) [id number] Tae Kent [id number] Tae Kent 01/05/2020 1 [facility] (MEDICARE REPLACEMENT/A DVANTAGE - PPO) [id number] Tae Kent [id number] Tae Kent 01/13/2020 1 [facility] (MEDICARE REPLACEMENT/A DVANTAGE - PPO) [id number] Tae Kent [id number] Tae Yoli Notes Date Note Type Note Provider Name and Address Organization Details Recorded Time 11/18/2019 text/html [place]/ Callus / UlcersReported bypatient.Location:r ight: second toe [...] over 200mg/dL. DANI Drake - [facility] 11/18/2019 14:04:56 11/25/2019 text/html [place]/ Callus / UlcersReported bypatient.Location:r ight: second toe [...] at amputation of R 1 Michelle tobias [facility] 11/25/2019 15:25:37 12/02/2019 text/html [place]/ Callus / UlcersReported bypatient.Location:r ight: second toe [...] at amputation of R 1 Michelle tobias [facility] [facility] 12/02/2019 16:49:41 01/05/2020 text/html [place]/ Callus / UlcersReported bypatient.Location:r ight: second toe [...] of R 2 and tender DANI Drake [facility] 01/06/2020 10:34:57 01/13/2020 text/html [place]/ Callus / UlcersReported bypatient.Location:r ight: second toe [...] and tender DANI Drake - [facility] 01/13/2020 17:48:34
--- OUTSIDE RECORDS SUMMARY | 2024-10-25 07:03 | XMS_ITS | Clinical Summary ---
Author Organization [facility] Address [address] [place] [address] Care Team Providers Care Molecular Technologist Name Role Phone Tad Mcintosh DO Primary [...] 07/17/2024 Assessment & Plan (07/17/2024 1:09 PM HAT BLOCKING MACHINE OPERATOR): Continue increased hydration Avoid acidic foods and fluids for one more week Thrombophilia 01/25/2023 Palpitations 11/22/2022 Chest pain 07/31/2022 Essential hypertension 07/31/2022 Tongue lesion 04/28/2020 Assessment & Plan (06/26/2024 9:29 AM HAT BLOCKING MACHINE OPERATOR): Has pain medication prescribed by Manasa Cortes at [facility] will confirm use of [place] after surgery Stop Eliquis for 5 days before and after Excision of left lateral and right lateral tongue lesions with repair Risks and complications: Anesthesia, bleeding, infection, benign versus malignant pathology, recurrence of lesion, injury to arteries, nerves and veins, scarring and need for further treatment Assessment & Plan (04/28/2020 1:41 PM HAT BLOCKING MACHINE OPERATOR): Speak to [facility] about smoothing out right first [...] week Assessment & Plan (04/28/2020 1:41 PM HAT BLOCKING MACHINE OPERATOR): Speak to [facility] about smoothing out right first [...] (04/18/2019): Added automatically from request for surgery [id number] Hematochezia 03/04/2019 Overview (03/04/2019): Added automatically from request for surgery [id number] Family history of colon cancer 03/04/2019 Overview (03/04/2019): Added automatically from request for surgery [id number] 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 Arena level is in process. Will hold at [...] recommended Assessment & Plan (07/08/2019 3:43 PM HAT BLOCKING MACHINE OPERATOR): Healthy, low carbohydrate lifestyle and exercise for [...] hydration Assessment & Plan (08/10/2017 1:23 PM HAT BLOCKING MACHINE OPERATOR): s/p Right inferior parathyroidectomy - 08/10/2016 pre [...] renal Assessment & Plan (05/01/2017 10:36 PM HAT BLOCKING MACHINE OPERATOR): s/p Right inferior parathyroidectomy - 08/10/2016 pre [...] future Assessment & Plan (08/10/2017 1:24 PM HAT BLOCKING MACHINE OPERATOR): Recheck levels Assessment & Plan (12/17/2016 8:01 AM CDT): Recheck levels Type 2 diabetes mellitus wit h stage 3 chronic kidney disease, with long-term current use of insulin 12/11/2016 Assessment & Plan (07/08/2019 3:42 PM HAT BLOCKING MACHINE OPERATOR): A1c 5.5% Jun 2019 on no medications. [...] needed. Assessment & Plan (08/10/2017 1:26 PM HAT BLOCKING MACHINE OPERATOR): - A1c today 5.5 % - due [...] months. Assessment & Plan (05/01/2017 10:36 PM HAT BLOCKING MACHINE OPERATOR): - reviewed BS log - BS well [...] statin. Assessment & Plan (08/10/2017 1:23 PM HAT BLOCKING MACHINE OPERATOR): On statin therapy - advised to increase physical activity - advised low fat/chol diet and avoid greasy and junk food Assessment & Plan (05/01/2017 10:37 PM HAT BLOCKING MACHINE OPERATOR): On statin therapy - advised to increase [...] activity Assessment & Plan (08/10/2017 1:24 PM HAT BLOCKING MACHINE OPERATOR): BP well controlled, chronic At goal advised [...] f/u with him Explained the risk of roasterman MAK and encourage use of CPAP or [...] quit smoking so they can encourage you. Fitting Room Supervisor referral placed. Class 2 severe obesity due t o excess calories with serious comorbidity and body mass index (BMI) of 37.0 to 37.9 in adult 08/16/2012 Overview (09/22/2016): Obesity Assessment & Plan (12/25/2019 1:57 PM CDT): Healthy, low carbohydrate lifestyle and exercise for 150min/week recommended Referral for manager physical placed. Assessment & Plan (10/16/2019 11:40 AM [...] greens, fat-free milk, cottage cheese, nuts like [id number], protein bars with 10-15 g of protein [...] discussed. Assessment & Plan (05/01/2017 10:37 PM HAT BLOCKING MACHINE OPERATOR): Obesity is improving with treatment. Discussed the [...] time. Assessment & Plan (05/01/2017 10:37 PM HAT BLOCKING MACHINE OPERATOR): Hypertension is improving with treatment. Continue current [...] stage 3, GFR 30-59 ml/min ([facility]) Arena poisoning Headache, tension-type Sleep apnea patient had [...] on file Legal Sex Male 5:22 PM HAT BLOCKING MACHINE OPERATOR Gender Identity Not on file Sexual Orientation Not on file Obstetrics History Last Filed Vital Signs Vital Sign Reading Time Taken Comments Blood Pressure 136/84 07/10/2024 4:54 PM HAT BLOCKING MACHINE OPERATOR Pulse 62 07/10/2024 4:54 PM HAT BLOCKING MACHINE OPERATOR Temperature 36.4 C (97.5 F) 07/10/2024 4:54 PM HAT BLOCKING MACHINE OPERATOR Respiratory Rate 16 07/10/2024 4:54 PM HAT BLOCKING MACHINE OPERATOR Oxygen Saturation 97% 07/10/2024 4:54 PM HAT BLOCKING MACHINE OPERATOR Inhaled Oxygen Concentration - - Weight 105.8 kg (233 lb 4 oz) 07/10/2024 10:09 A M HAT BLOCKING MACHINE OPERATOR Height 175.3 cm (5' 9 ) 07/10/2024 10:09 AM HAT BLOCKING MACHINE OPERATOR Body Mass Index 34.44 07/10/2024 10:09 AM HAT BLOCKING MACHINE OPERATOR Plan of Treatment Health Maintenance Due Date [...] 02/26/2029 02/26/2019 Medical Devices Implanted Type Area Director Of Research Center Device Identifier Shelf Expiration Date Model / Serial / Lot [employer] Angio-Seal Vip 6fr Closere Device [id number] - [id number] Implanted:Qty: 1 on 10/12/2022 by Eliel Ortiz MD at [facility] Other - see comments [employer] 03/17/2023 [id number] / / [id number] [employer] [id number] 4mm 44mm Compression Headless Foot Ankle Screw Bone - [id number] Implanted:Qty: 1 on 04/25/2019 by Chidi Rios DPM at [facility] Right: Toes [employer] [id number] / / [employer] [place] Ezm 03-27-10 Easyclip Si 2mm [id number] Monocortical Superelastic Reamer - [id number] Implanted:Qty: 1 on 04/25/2019 by Chidi Rios DPM at [facility] Right: Toes [employer] [place] 11/16/2023 EZM 03-27-10 / / [id number] [employer] [place] Ezm 03-27-10 Easyclip Si 2mm [id number] Monocortical Superelastic Reamer - [id number] Implanted:Qty: 1 on 04/25/2019 by Chidi Rios DPM at [facility] Right: Toes [employer] [place] 11/16/2023 EZM 10-10 / / [id number] Toe Tac Xpress Hammertoe Fixation System Implanted:Qty: 2 on 04/25/2019 by Chidi Rios DPM at [facility] Right: Toes [employer] [id number] 05/27/2021 [id number] / [id number] / [id number] [employer] Implanted:Qty: 1 on 04/25/2019 by Chidi Rios DPM at [facility] Right: Toes [employer] 07/18/2028 [id number] / / [id number] Procedures Procedure Name Priority Date/Time Associated Diagnosis Comments EGFR STAT 04/19/2023 3:53 PM CDT HEMOGLOBIN A1C Routine 12/13/2019 2:55 PM CDT LIPID PANEL Routine 05/17/2018 2:25 PM HAT BLOCKING MACHINE OPERATOR Type 2 diabetes mellitus with hyperglycemia, with long-term current use of insulin (HCC) from Last 3 Months or Most Recently Relevant to Health Maintenance Results * eGFR (04/19/2023 3:53 PM CDT) eGFR 51 mL/min/1. 73 m2 [facility] ([place]) Comment: Interpretive Data Reference Interval Normal >/= [...] BLOOD ORDERABLE S Final Result [facility] ([place]) 1 [facility] Department [place] [address] * (ABNORMAL) Hemoglobin A1c (12/13/2019 2:55 PM CDT) Blood specimen (specimen) 12/13/2019 2:55 PM CDT Narrative [facility] - 12/13/2019 2:55 PM CDT Results in labs Historical Provider LAB BLOOD ORDERABLES Becky l Result [place], [place] [phone] * (ABNORMAL) Lipid panel (05/17/2018 2:25 PM HAT BLOCKING MACHINE OPERATOR) Cholesterol 159 30 - 199 mg/dL CERNER [...] (EVER) Blood specimen (specimen) 05/17/2018 2:25 PM HAT BLOCKING MACHINE OPERATOR 05/17/2018 5:15 PM HAT BLOCKING MACHINE OPERATOR Narrative [facility] ([place]) - 05/17/2018 6:14 PM HAT BLOCKING MACHINE OPERATOR Tori Sims MD LAB BLOOD ORDERABLE S Final Result [facility] ([place]) 1 [facility] Department [place] [address] from Last 3 Months or Most Recently Relevant to Health Maintenance Insurance IDPA [facility] MEDICARE ADVANTAGE MEDICARE [facility] MEDICARE ADVANTAGE [facility] MEDICARE ADVANTAGE IDPA [facility] MEDICARE ADVANTAGE Advance Directives For more information, please contact: [phone] * Full Code (Latest Code Status on File) Date Activated Date Inactivated Comments 10/12/2022 2:12 PM 10/12/2022 10:46 PM * Full Code Date Activated Date Inactivated Comments 09/24/2017 9:04 PM 09/30/2017 5:22 PM Care Teams Molecular Technologist Relationship Specialty Start Date End Date Tad Mcintosh DO [address] [place] [address] PCP - General Family Medicine 06/26/24
--- OUTSIDE RECORDS SUMMARY | 2024-10-25 07:03 | XMS_ITS | Encounter Summary ---
Author Organization [facility] Address [address] [place] [address] Phone Care Team Providers Care Pharmacy Affairs Assistant Name Role Phone Jabier Peck MD Primary Care Provider [phone] Srikanth Adrian MD Unavailable Tad Romero MD Primary Care Provider [phone] Gloria Martinez MD Unavailable [phone] Encounter Details Date Type Department Care Team (Late st Contact Info) Description 01/04/2023 Telephone [facility] Medical/Surgical 3 Surge Waiver [address] [place] [address] Jabier Peck MD #[address] [address] Social History Tobacco Use Types Packs/Day Years [...] CDT Gender Identity Male 05/03/2023 12:44 PM AMBULATORY SERVICES REPRESENTATIVE Sexual Orientation Lesbian or Wolff 05/03/2023 12 :44 PM AMBULATORY SERVICES REPRESENTATIVE documented as of this encounter Miscellaneous Notes [...] documented as of this encounter Care Teams Pharmacy Affairs Assistant Relationship Specialty Start Date End Date Jabier Peck MD #[address] [address] PCP - General Family Medicine 06/22/20 01/16/24 Tad Mcintosh MD [address] [place] [address] PCP - General Family Medicine 01/17/24 Srikanth Adrian MD #2 [facility] [address] [place] [address] Personnel Arbitrator Cardiovascular Disease - Cardiology 02/02/22 08/06/24 [facility] [address] [address] Consulting Physician Urology 04/30/24 documented as of this encounter
== END 2024-10-25 07:00 | disposition home or self-care (01) ==
LOC: CHSIMG 07:00
PROVIDERS: PCP Family Medicine; Visit Provider Family Medicine
DX: R25.1 Tremor, unspecified (principal)
CPT/HCPCS: 70551

== ENCOUNTER 2024-10-28 12:59 | Outpatient (CLI) | payer MEDICARE, MEDICAID, SELFPAY ==
--- OUTSIDE RECORDS SUMMARY | 2024-10-28 13:10 | XMS_ITS | Encounter Summary ---
Author Organization [facility] Address [address] [place] [address] Phone Care Team Providers Care Technical Developer Name Role Phone Jabier Peck MD Primary Care Provider [phone] Srikanth Adrian MD Unavailable Tad Romero MD Primary Care Provider [phone] Gloria Martinez MD Unavailable [phone] Reason for Visit * Reason Comments Medication Refill Encounter Details Date Type Department Care Team (Late st Contact Info) Description 10/21/2021 Refill [facility] [address] [place] [address] Jabier Peck MD #[address] [address] Medication Refill Social History Tobacco Use Types [...] Gender Identity Male 05/03/2023 12:44 PM INDUSTRIAL MACHINE OPERATOR Sexual Orientation Lesbian or Wolff 05/03/2023 12 :44 PM INDUSTRIAL MACHINE OPERATOR documented as of this encounter [...] 19 Confirmed 05/31/2022 05/31/202206/20/ 023 12:16 AM INDUSTRIAL MACHINE OPERATOR Respiratory Rule Out - RPA 02/26/2023 02/26/2023 0 02/26/2023 11:31 AM CDT COVID - 19 02/26/2023 02/26/2023 03/08/2023 12:1 6 AM CDT documented as of this encounter Care Teams Technical Developer Relationship Specialty Start Date End Date Jabier Peck MD #2 [facility] [address] [place] [address] PCP - General Family Medicine 06/22/20 01/16/24 Tad Mcintosh MD [address] [place] [address] PCP - General Family Medicine 01/17/24 Srikanth Adrian MD #2 [facility] [address] [place] [address] Pump Technician Cardiovascular Disease - Cardiology 02/02/22 08/06/24 Gloria Martinez MD #2 [facility] [address] [place] [address] Consulting Physician Urology 04/30/24 documented as of this encounter
--- OUTSIDE RECORDS SUMMARY | 2024-10-28 13:10 | XMS_ITS | Encounter Summary ---
Author Organization [facility] Address [address] [place] [address] Phone Care Team Providers Care Felt Finisher Name Role Phone Srikanth Adrian MD Unavailable Tad Romero MD Primary Care Provider Gloria Martinez MD Unavailable [phone] Reason for Visit * Reason Comments Medication Refill Encounter Details Date Type Department Care Team (Late Contact Info) Description 05/28/2024 Refill [facility] Medical Group - Family Medicine [facility] #2 [place] [address] Jabier Peck MD #[address] [address] Medication Refill Social History Tobacco Use Types [...] CDT Gender Identity Male 05/03/2023 12:[address] ADMINISTRATOR Sexual Orientation Lesbian or Wolff 05/03/2023 12 :[address] ADMINISTRATOR documented as of this encounter Miscellaneous Notes * Telephone Encounter - Francine Soto RN - 05/28/2024 11:10 AM CST PCP: Tad Mcintosh MD RVISOR ROAD ADMINISTRATOR documented in this encounter Plan of Treatment Not on file documented as of this encounter Visit Diagnoses Not on filedocumented in this encounter Care Teams Felt Finisher Relationship Specialty Start Date End Date Tad Mcintosh MD [address] [place] [address] PCP - General Family Medicine 01/17/24 Srikanth Adrian MD Trimmer Helper Cardiovascular Disease - Cardiology 02/02/22 08/06/24 Gloria Martinez MD #[address] [address] Consulting Physician Urology 04/30/24 documented as of this encounter
--- OUTSIDE RECORDS SUMMARY | 2024-10-28 13:10 | XMS_ITS | Encounter Summary ---
Author Organization [facility] Address [address] [place] [address] Phone Care Team Providers Care Branch Operation Evaluation Manager Name Role Phone Jabier Peck MD Primary Care Provider [phone] Srikanth Adrian MD Unavailable Tad Romero MD Primary Care Provider [phone] Gloria Martinez MD Unavailable [phone] Reason for Visit * Reason Onset Date Comments Medication Refill 10/27/2021 Encounter Details Date Type Department Care Team (Late st Contact Info) Description 10/27/[address] [facility] Medical Group - Family Medicine [facility] #2 [place] [address] Jabier Peck MD #[address] [address] Medication Refill Social History Tobacco Use Types [...] CDT Gender Identity Male 05/03/2023 12:44 PM AUTOMATION MACHINE OPERATOR Sexual Orientation Lesbian or Wolff 05/03/2023 12 :44 PM AUTOMATION MACHINE OPERATOR documented as of this encounter [...] 19 Confirmed 05/31/2022 05/31/2022 023 12:16 AM AUTOMATION MACHINE OPERATOR Respiratory Rule Out - RPA 02/26/2023 02/26/2023 0 02/26/2023 11:31 AM CDT COVID - 19 02/26/2023 02/26/2023 03/08/2023 12:1 6 AM CDT documented as of this encounter Care Teams Branch Operation Evaluation Manager Relationship Specialty Start Date End Date Jabier Peck MD #2 [facility] 205 [place] [address] PCP - General Family Medicine 06/22/20 01/16/24 Tad Mcintosh MD [address] [place] [address] PCP - General Family Medicine 01/17/24 Srikanth Adrian MD #2 [facility] [address] [place] [address] Pilot Captain Cardiovascular Disease - Cardiology 02/02/22 08/06/24 Gloria Martinez MD #2 [facility] [facility] [address] [place] [address] Consulting Physician Urology 04/30/24 documented as of this encounter
--- OUTSIDE RECORDS SUMMARY | 2024-10-28 13:10 | XMS_ITS | Encounter Summary ---
Author Organization [facility] Address [address] [place] [address] Phone Care Team Providers Care Publication Designer Name Role Phone Jabier Peck MD Primary Care Provider [phone] Srikanth Adrian MD Unavailable Tad Romero MD Primary Care Provider [phone] Gloria Martinez MD Unavailable [phone] Reason for Visit * Reason Onset Date Comments Medication Refill 12/28/2021 Encounter Details Date Type Department Care Team (Late st Contact Info) Description 12/28/2021 Refill [facility] Medical Group - Family Medicine [facility] #2 [place] [address] Jabier Peck MD #[address] [address] Medication Refill Social History Tobacco Use Types [...] CDT Gender Identity Male 05/03/2023 12:44 PM TRAVELING INVENTORY ASSOCIATE Sexual Orientation Lesbian or Wolff 05/03/2023 12 :44 PM TRAVELING INVENTORY ASSOCIATE COVID-19 Exposure Response Date Recorded In the [...] 19 Confirmed 05/31/2022 05/31/2022 023 12:16 AM TRAVELING INVENTORY ASSOCIATE Respiratory Rule Out - RPA 02/26/2023 02/26/2023 0 02/26/2023 11:31 AM CDT COVID - 19 02/26/2023 02/26/2023 03/08/2023 12:1 6 AM CDT documented as of this encounter Care Teams Publication Designer Relationship Specialty Start Date End Date Jabier Peck MD #[address] [address] PCP - General Family Medicine 06/22/20 01/16/24 Tad Mcintosh MD [address] [place] [address] PCP - General Family Medicine 01/17/24 Srikanth Adrian MD #[address] [address] Buffing Wheel Presser Cardiovascular Disease - Cardiology 02/02/22 08/06/24 Gloria Martinez MD #2 [facility] [address] [place] [address] Consulting Physician Urology 04/30/24 documented as of this encounter
--- OUTSIDE RECORDS SUMMARY | 2024-10-28 13:10 | XMS_ITS | Encounter Summary ---
Author Organization [facility] Address [address] [place] [address] [place] [address] Phone Care Team Providers Care Visual Designer Name Role Phone Jabier Peck MD Primary Care Provider [phone] Srikanth Adrian MD Unavailable Tad Romero MD Primary Care Provider [phone] Gloria Martinez MD Unavailable [phone] Reason for Visit * Reason Comments Medication Refill Encounter Details Date Type Department Care Team (Late st Contact Info) Description 12/11/2021 Refill [facility] #2 [place] [address] Jabier Peck MD #[address] [address] Medication Refill Social History Tobacco Use Types [...] CDT Gender Identity Male 05/03/2023 12:44 PM COLOR MIXER Sexual Orientation Lesbian or Wolff 05/03/2023 12 :44 PM COLOR MIXER COVID-19 Exposure Response Date Recorded In the last 10 days, have yo u been in contact with someone who was confirmed or suspected to have Coronavirus/COVID-19? No / Unsure 12/05/2021 2:07 PM CDT documented as of this encounter Miscellaneous Notes * Telephone Encounter - Francine oSto RN - 12/12/2021 3:07 PM CDT Medication [...] [place] 04/29/21 Office Visit Jabier Peck MD [facility] [place] 03/16/21 Office Visit Kishore Prieto APRN, [place] [facility] [place] Showing recent visits within past 365 days and meeting all other requirements Future Appointments Date Type Provider Dept 12/13/21 Appointment Kishore Prieto APRN, [place] [facility] [place] Showing future appointments within next 90 days and meeting all other requirements documented in this encounter Plan of Treatment Not on file documented as of this encounter Visit Diagnoses Diagnosis Cervical radiculopathy Brachial neuritis or radiculitis nos documented in this encounter Additional Health Concerns Infection Onset Date Last Indicated Resolved Time COVID - 19 Confirmed 05/31/2022 05/31/2022 023 12:16 AM COLOR MIXER Respiratory Rule Out - RPA 02/26/2023 02/26/2023 0 02/26/2023 11:31 AM CDT COVID - 19 02/26/2023 02/26/2023 03/08/2023 12:1 6 AM CDT documented as of this encounter Care Teams Visual Designer Relationship Specialty Start Date End Date Jabier Peck MD #2 [facility] [place] [facility] 205 [place] [address] PCP - General Family Medicine 06/22/20 01/16/24 Tad Mcintosh MD [address] [place] [address] PCP - General Family Medicine 01/17/24 Srikanth Adrian MD #2 [facility] [place] [facility] 205 [place] [address] Vp Design Cardiovascular Disease - Cardiology 02/02/22 08/06/24 Gloria Martinez MD #2 [facility] 300 [place] [address] Consulting Physician Urology 04/30/24 documented as of this encounter
--- OUTSIDE RECORDS SUMMARY | 2024-10-28 13:10 | XMS_ITS | Encounter Summary ---
Author Organization [facility] Address [address] [place] [address] Phone Care Team Providers Care Peoplesoft Financials Name Role Phone Jabier Peck MD Primary Care Provider [phone] Srikanth Adrian MD Unavailable Tad Romero MD Primary Care Provider [phone] Gloria Martinez MD Unavailable [phone] Reason for Visit * Reason Comments Medication Refill Encounter Details Date Type Department Care Team (Late st Contact Info) Description 02/22/2022 Refill [facility] #2 [place] [address] Jabier Peck MD #[address] [address] Medication Refill Social History Tobacco Use Types [...] CDT Gender Identity Male 05/03/2023 12:44 PM PROPERTY MAINTENANCE SUPERVISOR Sexual Orientation Lesbian or Wolff 05/03/2023 12 :44 PM PROPERTY MAINTENANCE SUPERVISOR COVID-19 Exposure Response Date Recorded In [...] 19 Confirmed 05/31/2022 05/31/2022 023 12:16 AM PROPERTY MAINTENANCE SUPERVISOR Respiratory Rule Out - RPA 02/26/2023 02/26/2023 0 02/26/2023 11:31 AM CDT COVID - 19 02/26/2023 02/26/2023 03/08/2023 12:1 6 AM CDT documented as of this encounter Care Teams Peoplesoft Financials Relationship Specialty Start Date End Date Jabier Peck MD #2 [facility] [address] [place] [address] PCP - General Family Medicine 06/22/20 01/16/24 Tad Mcintosh MD [address] [place] [address] PCP - General Family Medicine 01/17/24 Srikanth Adrian MD #2 [facility] [address] [place] [address] Infection Control Preventionist Cardiovascular Disease - Cardiology 02/02/22 08/06/24 Gloria Martinez MD #2 [facility] [address] [place] [address] Consulting Physician Urology 04/30/24 documented as of this encounter
--- OUTSIDE RECORDS SUMMARY | 2024-10-28 13:10 | XMS_ITS | Encounter Summary ---
Author Organization [facility] Address [address] [place] [address] Phone Care Team Providers Care Fermentation Operator Name Role Phone Jabier Peck MD Primary Care Provider [phone] Srikanth Adrian MD Unavailable Tad Romero MD Primary Care Provider [phone] Gloria Martinez MD Unavailable [phone] Reason for Visit * Reason Comments Medication Refill Encounter Details Date Type Department Care Team (Late st Contact Info) Description 08/19/2021 Refill [facility] #2 [place] [address] Jabier Peck MD #[address] [address] Medication Refill Social History Tobacco Use Types [...] CDT Gender Identity Male 05/03/2023 12:44 PM FURS SALESPERSON Sexual Orientation Lesbian or Wolff 05/03/2023 12 :44 PM FURS SALESPERSON COVID-19 Exposure Response Date Recorded In the last month, have you been in contact with someone who was confirmed or suspected to have Coronavirus / COVID-19? No / Unsure 08/01/2021 1:35 PM FURS SALESPERSON documented as of this encounter Miscellaneous Notes [...] [place] 08/20/20 Telemedicine Kishore Prieto APRN, [place] [facility] [place] Showing recent visits within past 365 days and meeting all other requirements Future Appointments Date Type Provider Dept 10/31/21 Appointment Jabier Peck MD [facility] [place] Showing future appointments within next 90 days and meeting all other requirements SALESPERSON documented in this encounter Plan of Treatment Not on file documented as of this encounter Visit Diagnoses Diagnosis Cervical radiculopathy Brachial neuritis or radiculitis nos documented in this encounter Additional Health Concerns Infection Onset Date Last Indicated Resolved Time COVID - 19 Confirmed 05/31/2022 05/31/2022 023 12:16 AM FURS SALESPERSON Respiratory Rule Out - RPA 02/26/2023 02/26/2023 0 02/26/2023 11:31 AM CDT COVID - 19 02/26/2023 02/26/2023 03/08/2023 12:1 6 AM CDT documented as of this encounter Care Teams Fermentation Operator Relationship Specialty Start Date End Date Jabier Peck MD #2 [facility] [address] [place] [address] PCP - General Family Medicine 06/22/20 01/16/24 Tad Mcintosh MD [address] [place] [address] PCP - General Family Medicine 01/17/24 Srikanth Adrian MD #2 [facility] [address] [place] [address] Internal Control Consultant Cardiovascular Disease - Cardiology 02/02/22 08/06/24 Gloria Martinez MD #2 [facility] 300 [place] [address] Consulting Physician Urology 04/30/24 documented as of this encounter
--- OUTSIDE RECORDS SUMMARY | 2024-10-28 13:10 | XMS_ITS | Encounter Summary ---
Author Organization [facility] Address [address] [place] [address] Phone Care Team Providers Care Deck Lid Fitter Name Role Phone Jabier Kwok MD Primary Care Provider [phone] rSikanth Adrian MD Unavailable Tad Romero MD Primary Care Provider [phone] Gloria Martinez MD Unavailable [phone] Reason for Visit * Reason Comments Medication Refill Encounter Details Date Type Department Care Team (Late st Contact Info) Description 01/23/2022 Refill [facility] #2 [place] [address] Jabier Kwok MD #[address] [address] Medication Refill Social History Tobacco Use Types [...] CDT Gender Identity Male 05/03/2023 12:44 PM BUSINESS PROCESS REPRESENTATIVE Sexual Orientation Lesbian or Wolff 05/03/2023 12 :44 PM BUSINESS PROCESS REPRESENTATIVE COVID-19 Exposure Response Date Recorded In the [...] 19 Confirmed 05/31/2022 05/31/2022 023 12:16 AM BUSINESS PROCESS REPRESENTATIVE Respiratory Rule Out - RPA 02/26/2023 02/26/2023 0 02/26/2023 11:31 AM CDT COVID - 19 02/26/2023 02/26/2023 03/08/2023 12:1 6 AM CDT documented as of this encounter Care Teams Deck Lid Fitter Relationship Specialty Start Date End Date Jabier Kwok MD #[address] [address] PCP - General Family Medicine 06/22/20 01/16/24 Tad Mcintosh MD [address] [place] [address] PCP - General Family Medicine 01/17/24 Srikanth Adrian MD #2 [facility] [address] [place] [address] Silo Erector Cardiovascular Disease - Cardiology 02/02/22 08/06/24 Gloria Martinez MD #2 [facility] [address] [place] [address] Consulting Physician Urology 04/30/24 documented as of this encounter
--- OUTSIDE RECORDS SUMMARY | 2024-10-28 13:10 | XMS_ITS | Encounter Summary ---
Author Organization [facility] Address [address] [place] [address] Phone Care Team Providers Care Multimedia Artist Name Role Phone Jabier Peck MD Primary Care Provider [phone] Srikanth Adrian MD Unavailable Tad Romero MD Primary Care Provider [phone] Gloria Martinez MD Unavailable [phone] Reason for Visit * Reason Comments Medication Refill Encounter Details Date Type Department Care Team (Late st Contact Info) Description 11/23/2021 Refill [facility] - Family [facility] #2 [place] [address] Jabier Peck MD #[address] [address] Medication Refill Social History Tobacco Use Types [...] Gender Identity Male 05/03/2023 12:44 PM CHILD SPECIALIST Sexual Orientation Lesbian or Wolff 05/03/2023 12 :44 PM CHILD SPECIALIST documented as of this encounter Miscellaneous [...] [facility] 03/16/21 Office Visit Kishore Prieto, HOUSEKEEPING WORKER, LICENSING OFFICER [facility] Showing recent visits within past [...] Confirmed 05/31/2022 05/31/2022 023 12:16 AM CHILD SPECIALIST Respiratory Rule Out - RPA 02/26/2023 02/26/2023 0 02/26/2023 11:31 AM CDT COVID - 19 02/26/2023 02/26/2023 03/08/2023 12:1 6 AM CDT documented as of this encounter Care Teams Multimedia Artist Relationship Specialty Start Date End Date Jabier Peck MD #[address] [address] PCP - General Family Medicine 06/22/20 01/16/24 Tad Mcintosh MD [address] [place] [address] PCP - General Family Medicine 01/17/24 Srikanth Adrian MD #2 [facility] 205 [place] [address] Derrick Worker Cardiovascular Disease - Cardiology 02/02/22 08/06/24 Gloria Martinez MD #2 [facility] [address] [place] [address] Consulting Physician Urology 04/30/24 documented as of this encounter
--- OUTSIDE RECORDS SUMMARY | 2024-10-28 13:10 | XMS_ITS | Encounter Summary ---
Author Organization [facility] Address [address] [place] [address] Phone Care Team Providers Care Emergency Management Director Name Role Phone Jabier Peck MD Primary Care Provider [phone] Srikanth Adrian MD Unavailable Tad Romero MD Primary Care Provider [phone] Gloria Martinez MD Unavailable [phone] Reason for Visit * Reason Comments Medication Refill Encounter Details Date Type Department Care Team (Late st Contact Info) Description 09/22/2021 Refill [facility] Family [facility] #2 [place] [address] Jabier Peck MD #[address] [address] Medication Refill Social History Tobacco Use Types [...] Gender Identity Male 05/03/2023 12:44 PM SENIOR CREDIT OFFICER Sexual Orientation Lesbian or Wolff 05/03/2023 12 :44 PM SENIOR CREDIT OFFICER COVID-19 Exposure Response Date Recorded In the [...] 19 Confirmed 05/31/2022 05/31/2022 023 12:16 AM SENIOR CREDIT OFFICER Respiratory Rule Out - RPA 02/26/2023 02/26/2023 0 02/26/2023 11:31 AM CDT COVID - 19 02/26/2023 02/26/2023 03/08/2023 12:1 6 AM CDT documented as of this encounter Care Teams Emergency Management Director Relationship Specialty Start Date End Date Jabier Peck MD #2 [facility] [address] [place] [address] PCP - General Family Medicine 06/22/20 01/16/24 Tad Mcintosh MD [address] [place] [address] PCP - General Family Medicine 01/17/24 Srikanth Adrian MD #2 [facility] [address] [place] [address] Senior Shipping Clerk Cardiovascular Disease - Cardiology 02/02/22 08/06/24 Gloria Martinez MD #2 [facility] [address] [place] [address] Consulting Physician Urology 04/30/24 documented as of this encounter
--- OUTSIDE RECORDS SUMMARY | 2024-10-28 13:10 | XMS_ITS | Encounter Summary ---
Author Organization [facility] Address [address] [place] [address] Phone Care Team Providers Care Rn Intern Name Role Phone Jabier Peck MD Primary Care Provider [phone] Srikanth Adrian MD Unavailable Tad Romero MD Primary Care Provider [phone] Gloria Martinez MD Unavailable [phone] Reason for Visit * Reason Comments Medication Refill Encounter Details Date Type Department Care Team (Late st Contact Info) Description 02/24/2022 Refill [facility] #2 [place] [address] Jabier Peck MD #[address] [address] Medication Refill Social History Tobacco Use Types [...] CDT Gender Identity Male 05/03/2023 12:44 PM CREDIT CLERK Sexual Orientation Lesbian or Wolff 05/03/2023 12 :44 PM CREDIT CLERK COVID-19 Exposure Response Date Recorded In the [...] 03/16/21 Office Visit Kishore Prieto APRN, [place] [facility] [place] Showing recent visits within past 365 [...] 19 Confirmed 05/31/2022 05/31/2022 023 12:16 AM CREDIT CLERK Respiratory Rule Out - RPA 02/26/2023 02/26/2023 0 02/26/2023 11:31 AM CDT COVID - 19 02/26/2023 02/26/2023 03/08/2023 12:1 6 AM CDT documented as of this encounter Care Teams Rn Intern Relationship Specialty Start Date End Date Jabier Peck MD #2 [facility] 205 [place] [address] PCP - General Family Medicine 06/22/20 01/16/24 Tad Mcintosh MD [address] [place] [address] PCP - General Family Medicine 01/17/24 Srikanth Adrian MD #2 [facility] [address] [place] [address] Unemployment Inspector Cardiovascular Disease - Cardiology 02/02/22 08/06/24 Gloria Martinez MD #2 [facility] [address] [place] [address] Consulting Physician Urology 04/30/24 documented as of this encounter
--- OUTSIDE RECORDS SUMMARY | 2024-10-28 13:11 | XMS_ITS | Encounter Summary ---
Author Organization [facility] Address [address] [place] [address] Phone Care Team Providers Care Feltmaker And Weigher Name Role Phone Jabier Peck MD Primary Care Provider [phone] Srikanth Adrian MD Unavailable Tad Romero MD Primary Care Provider [phone] Gloria Martinez MD Unavailable [phone] Reason for Visit * Reason Comments Medication Refill Encounter Details Date Type Department Care Team (Late st Contact Info) Description 07/20/2021 Refill [facility] Medical Group - Family [facility] #2 [place] [address] Jabier Peck MD #[address] [address] Medication Refill Social History Tobacco Use Types [...] CDT Gender Identity Male 05/03/2023 12:44 PM MODEL MAKER Sexual Orientation Lesbian or Wolff 05/03/2023 12 :44 PM MODEL MAKER COVID-19 Exposure Response Date Recorded In the last month, have you been in contact with someone who was confirmed or suspected to have Coronavirus / COVID-19? No / Unsure 07/14/2021 12:17 PM MODEL MAKER documented as of this encounter Miscellaneous [...] [facility] [place] 08/06/20 Telemedicine Kishore Prieto APRN, CONCESSION WORKER [facility] [place] Showing recent visits within past 365 days and meeting all other requirements Future Appointments Date Type Provider Dept 08/01/21 Appointment Jabier Peck MD [facility] Showing future appointments within next 90 days and meeting all other requirements L MAKER documented in this encounter Plan of Treatment Not on file documented as of this encounter Visit Diagnoses Diagnosis Cervical radiculopathy Brachial neuritis or radiculitis nos documented in this encounter Additional Health Concerns Infection Onset Date Last Indicated Resolved Time COVID - 19 Confirmed 05/31/2022 05/31/2022 023 12:16 AM MODEL MAKER Respiratory Rule Out - RPA 02/26/2023 02/26/2023 0 02/26/2023 11:31 AM CDT COVID - 19 02/26/2023 02/26/2023 03/08/2023 12:1 6 AM CDT documented as of this encounter Care Teams Feltmaker And Weigher Relationship Specialty Start Date End Date Jabier Peck MD #2 [facility] [address] [place] [address] PCP - General Family Medicine 06/22/20 01/16/24 Tad Mcintosh MD [address] [place] [address] PCP - General Family Medicine 01/17/24 Srikanth Adrian MD #2 [facility] [address] [place] [address] Change Over Cardiovascular Disease - Cardiology 02/02/22 08/06/24 Gloria Martinez MD #2 [facility] [address] [place] [address] Consulting Physician Urology 04/30/24 documented as of this encounter
--- OUTSIDE RECORDS SUMMARY | 2024-10-28 13:11 | XMS_ITS | Encounter Summary ---
Author Organization [facility] Address [address] [place] [address] Phone Care Team Providers Care Hemodialysis Charge Nurse Name Role Phone Srikanth Adrian MD Unavailable Tad Romero MD Primary Care Provider Gloria Martinez MD Unavailable [phone] Reason for Visit * Reason Comments Medication Refill Encounter Details Date Type Department Care Team (Late Contact Info) Description 07/26/2024 Refill [facility] - Family Medicine [facility] #2 [place] [address] Jabier Peck MD #[address] [address] Medication Refill Social History Tobacco Use Types [...] Gender Identity Male 05/03/2023 12:44 PM SUPERVISOR [place]OD ROOM Sexual Orientation Lesbian or Wolff 05/03/2023 12 :44 PM SUPERVISOR [place] ROOM documented as of this encounter Miscellaneous Notes * Telephone Encounter - Sheyla Burgess RN - 07/28/2024 10:39 AM SUPERVISOR [place]OD ROOM Changed PCPs to Tad Mcintosh MD [facility] [place] ROOM * Telephone Encounter - Sheyla Burgess RN - 07/28/2024 10:39 AM SUPERVISOR [place] ROOM Now seeing Tad Mcintosh MD [facility] [place] RO[facility] * Telephone Encounter - Sheyla Burgess RN - 07/28/2024 10:38 AM SUPERVISOR [place] ROOM Needs OV. Last seen April 2023. [facility] [place] RO[facility] documented in this encounter Plan of Treatment Not on file documented as of this encounter Visit Diagnoses Not on filedocumented in this encounter Care Teams Hemodialysis Charge Nurse Relationship Specialty Start Date End Date Tad Mcintosh MD [address] [place] [address] PCP - General Family Medicine 01/17/24 Srikanth Adrian MD Enterprise Systems Engineer Cardiovascular Disease - Cardiology 02/02/22 08/06/24 Gloria Martinez MD #[address] [address] Consulting Physician Urology 04/30/24 documented as of this encounter
--- OUTSIDE RECORDS SUMMARY | 2024-10-28 13:11 | XMS_ITS | Encounter Summary ---
Author Organization [facility] Address [address] [place] [address] Phone Care Team Providers Care Decorating Machine Tender Name Role Phone Jabier Peck MD Primary Care Provider [phone] Srikanth Adrian MD Unavailable Tad Romero MD Primary Care Provider [phone] Gloria Martinez MD Unavailable [phone] Reason for Visit * Reason Comments Medication Refill Encounter Details Date Type Department Care Team (Late st Contact Info) Description 06/20/2022 Refill [facility] #2 [place] [address] Jabier Peck MD #[address] [address] Medication Refill Social History Tobacco Use Types [...] CDT Gender Identity Male 05/03/2023 12:44 PM HOSIERY REPAIRER Sexual Orientation Lesbian or Wolff 05/03/2023 12 :44 PM HOSIERY REPAIRER COVID-19 Exposure Response Date Recorded In the last 10 days, have yo u been in contact with someone who was confirmed or suspected to have Coronavirus/COVID-19? Yes 05/31/2022 2:12 PM HOSIERY REPAIRER documented as of this encounter Miscellaneous Notes [...] 90 days and meeting all other requirements ERY REPAIRER documented in this encounter Plan of Treatment Not on file documented as of this encounter Visit Diagnoses Diagnosis Cervical radiculopathy Brachial neuritis or radiculitis nos documented in this encounter Additional Health Concerns Infection Onset Date Last Indicated Resolved Time COVID - 19 Confirmed 05/31/2022 05/31/2022 023 12:16 AM HOSIERY REPAIRER Respiratory Rule Out - RPA 02/26/2023 02/26/2023 0 02/26/2023 11:31 AM CDT COVID - 19 02/26/2023 02/26/2023 03/08/2023 12:1 6 AM CDT documented as of this encounter Care Teams Decorating Machine Tender Relationship Specialty Start Date End Date Jabier Peck MD #2 [facility] [address] [place] [address] PCP - General Family Medicine 06/22/20 01/16/24 Tad Mcintosh MD [address] [place] [address] PCP - General Family Medicine 01/17/24 Srikanth Adrian MD #2 [facility] [address] [place] [address] Hydramatic Mechanic Cardiovascular Disease - Cardiology 02/02/22 08/06/24 Gloria Martinez MD #2 [facility] [address] [place] [address] Consulting Physician Urology 04/30/24 documented as of this encounter
--- OUTSIDE RECORDS SUMMARY | 2024-10-28 13:11 | XMS_ITS | Encounter Summary ---
Author Organization [facility] Address [address] [place] [address] Phone Care Team Providers Care Adoption Agent Name Role Phone Jabier Peck MD Primary Care Provider [phone] Srikanth Adrian MD Unavailable Tad Romero MD Primary Care Provider [phone] Golria Martinez MD Unavailable [phone] Reason for Visit * Reason Comments Medication Refill Encounter Details Date Type Department Care Team (Late st Contact Info) Description 05/11/2021 Refill [facility] Medical Group - Family [facility] #2 [place] [address] Jabier Peck MD #[address] [address] Medication Refill Social History Tobacco Use Types [...] CDT Gender Identity Male 05/03/2023 12:44 PM ONLINE RETAILER Sexual Orientation Lesbian or Wolff 05/03/2023 12 :44 PM ONLINE RETAILER COVID-19 Exposure Response Date Recorded In the last month, have you been in contact with someone who was confirmed or suspected to have Coronavirus / COVID-19? No / Unsure 05/05/2021 12:33 PM ONLINE RETAILER documented as of this encounter Miscellaneous Notes [...] [place] 06/22/20 Office Visit Kishore Prieto APRN, ROUSTABOUT CREW PUSHER [facility] Showing recent visits within past 365 days and meeting all other requirements Future Appointments Date Type Provider Dept 08/01/21 Appointment Jabier Peck MD [facility] Showing future appointments within next 90 days and meeting all other requirements NE RETAILER documented in this encounter Plan of Treatment Not on file documented as of this encounter Visit Diagnoses Diagnosis Cervical radiculopathy Brachial neuritis or radiculitis nos documented in this encounter Additional Health Concerns Infection Onset Date Last Indicated Resolved Time COVID - 19 Confirmed 05/31/2022 05/31/2022 023 12:16 AM ONLINE RETAILER Respiratory Rule Out - RPA 02/26/2023 02/26/2023 0 02/26/2023 11:31 AM CDT COVID - 19 02/26/2023 02/26/2023 03/08/2023 12:1 6 AM CDT documented as of this encounter Care Teams Adoption Agent Relationship Specialty Start Date End Date Jabier Peck MD #2 [facility] [address] [place] [address] PCP - General Family Medicine 06/22/20 01/16/24 Tad Mcintosh MD [address] [place] [address] PCP - General Family Medicine 01/17/24 Srikanth Adrian MD #2 [facility] [address] [place] [address] Slate Cutter Operator Cardiovascular Disease - Cardiology 02/02/22 08/06/24 Gloria Martinez MD #2 [facility] [address] [place] [address] Consulting Physician Urology 04/30/24 documented as of this encounter
--- OUTSIDE RECORDS SUMMARY | 2024-10-28 13:11 | XMS_ITS | Encounter Summary ---
Author Organization [facility] Address [address] [facility] [place] [address] Phone Care Team Providers Care Public Health Professor Name Role Phone Jabier Peck MD Primary Care Provider [phone] Srikanth Adrian MD Unavailable Tad Romero MD Primary Care Provider [phone] Gloria Martinez MD Unavailable [phone] Reason for Visit * Reason Comments Medication Refill Encounter Details Date Type Department Care Team (Late st Contact Info) Description 08/19/2022 [facility]ill [facility] On[facility] Services [address] [place] [id number] Jt Morillo MD [address] [place] [address] Medication Refill Social History Tobacco Use Types [...] CDT Gender Identity Male 05/03/2023 12:44 PM CASINO INVESTIGATOR Sexual Orientation Lesbian or Wolff 05/03/2023 12 :44 PM CASINO INVESTIGATOR COVID-19 Exposure Response Date Recorded In the last 10 days, have yo u been in contact with someone who was confirmed or suspected to have Coronavirus/COVID-19? No / Unsure 08/21/2022 12:53 PM CASINO INVESTIGATOR documented as of this encounter Miscellaneous Notes * Telephone Encounter - Aisha Escamilla RN - 08/21/2022 12:02 PM CST Approved Eliquis per last f/u note. NO INVESTIGATOR documented in this encounter Plan of Treatment [...] documented as of this encounter Care Teams Public Health Professor Relationship Specialty Start Date End Date Jabier Peck MD #2 [facility] [address] [place] [address] PCP - General Family Medicine 06/22/20 01/16/24 Tad Mcintosh MD [address] [place] [address] PCP - General Family Medicine 01/17/24 Srikanth Adrian MD #2 [facility] [address] [place] [address] Cloth Colorer Cardiovascular Disease - Cardiology 02/02/22 08/06/24 Gloria Martinez MD #2 [facility] [address] [place] [address] Consulting Physician Urology 04/30/24 documented as of this encounter
--- OUTSIDE RECORDS SUMMARY | 2024-10-28 13:11 | XMS_ITS | Encounter Summary ---
Author Organization [facility] Address [address] [place] [address] Phone Care Team Providers Care Senior Wind Turbine Technician Name Role Phone Jabier Peck MD Primary Care Provider [phone] Srikanth Adrian MD Unavailable Tad Romero MD Primary Care Provider [phone] Gloria Martinez MD Unavailable [phone] Reason for Visit * Reason Comments Medication Refill Encounter Details Date Type Department Care Team (Late st Contact Info) Description 07/28/2022 Refill [facility] #2 [place] [address] Jabier Peck MD #[address] [address] Medication Refill Social History Tobacco Use Types [...] CDT Gender Identity Male 05/03/2023 12:44 PM COLD ROLL OPERATOR Sexual Orientation Lesbian or Wolff 05/03/2023 12 :44 PM COLD ROLL OPERATOR COVID-19 Exposure Response Date Recorded In the last 10 days, have yo u been in contact with someone who was confirmed or suspected to have Coronavirus/COVID-19? No / Unsure 07/20/2022 2:30 PM COLD ROLL OPERATOR documented as of this encounter Miscellaneous [...] Office Visit Kishore Prieto APRN, RICHARD [facility] 12/13/21 Telemedicine Kishore Prieto APRN, VENEER SAWYER [facility] [place] 08/01/21 Office Visit Jabier Peck MD [facility] [place] Showing recent visits within past 365 days and meeting all other requirements Future Appointments No visits were found meeting these conditions. Showing future appointments within next 90 days and meeting all other requirements ROLL OPERATOR documented in this encounter Plan of [...] as of this encounter Care Teams Senior Wind Turbine Technician Relationship Specialty Start Date End Date Jabier Peck MD #2 [facility] [address] [place] [address] PCP - General Family Medicine 06/22/20 01/16/24 Tad Mcintosh MD [address] [place] [address] PCP - General Family Medicine 01/17/24 Srikanth Adrian MD #2 [facility] [address] [place] [address] Audiovisual Aids Technician Cardiovascular Disease - Cardiology 02/02/22 08/06/24 Gloria Martinez MD #2 [facility] [address] [place] [address] Consulting Physician Urology 04/30/24 documented as of this encounter
--- OUTSIDE RECORDS SUMMARY | 2024-10-28 13:11 | XMS_ITS | Encounter Summary ---
Author Organization [facility] Address [address] [place] [address] Phone Care Team Providers Care Casing Grader Name Role Phone Jabier Peck MD Primary Care Provider [phone] Srikanth Adrian MD Unavailable Tad Romero MD Primary Care Provider [phone] Gloria Martinze MD Unavailable [phone] Reason for Visit * Reason Comments Medication Refill Encounter Details Date Type Department Care Team (Late st Contact Info) Description 08/30/2022 Refill [facility] #2 [place] [address] Jabier Peck MD #[address] [address] Medication Refill Social History Tobacco Use Types [...] CDT Gender Identity Male 05/03/2023 12:44 PM INSURANCE RISK MANAGER Sexual Orientation Lesbian or Wolff 05/03/2023 12 :44 PM INSURANCE RISK MANAGER COVID-19 Exposure Response Date Recorded In the last 10 days, have yo u been in contact with someone who was confirmed or suspected to have Coronavirus/COVID-19? No / Unsure 08/21/2022 12:53 PM INSURANCE RISK MANAGER documented as of this encounter Miscellaneous [...] [place] 01/31/22 Office Visit Kishore Prieto APRN, CAUSTIC LIQUOR MAKER [facility] 12/13/21 Telemedicine Kishore Prieto APRN, CAUSTIC LIQUOR MAKER [facility] [place] Showing recent visits within past 365 days [...] documented as of this encounter Care Teams Casing Grader Relationship Specialty Start Date End Date Jabier Peck MD #2 [facility] [address] [place] [address] PCP - General Family Medicine 06/22/20 01/16/24 Tad Mcintosh MD [address] [place] [address] PCP - General Family Medicine 01/17/24 Srikanth Adrian MD #2 [facility] [address] [place] [address] Relocation Coordinator Cardiovascular Disease - Cardiology 02/02/22 08/06/24 Gloria Martinez MD #2 [facility] [address] [place] [address] Consulting Physician Urology 04/30/24 documented as of this encounter
--- OUTSIDE RECORDS SUMMARY | 2024-10-28 13:11 | XMS_ITS | Encounter Summary ---
Author Organization [facility] Address [address] [place] [address] Phone Care Team Providers Care Track Rider Name Role Phone Jabier Peck MD Primary Care Provider [phone] Srikanth Adrian MD Unavailable Tad Romero MD Primary Care Provider [phone] Gloria Martinez MD Unavailable [phone] Reason for Visit * Reason Comments Medication Refill Encounter Details Date Type Department Care Team (Late st Contact Info) Description 04/11/2021 Refill [facility] - [facility]2 [place] [id number] Kishore Prieto, HOUSING ASSISTANT, MALWARE ANALYST #[address] [address] Medication Refill Social History Tobacco Use Types [...] CDT Gender Identity Male 05/03/2023 12:44 PM TMR TEACHER Sexual Orientation Lesbian or Wolff 05/03/2023 12 :44 PM TMR TEACHER COVID-19 Exposure Response Date Recorded In the last month, have you been in contact with someone who was confirmed or suspected to have Coronavirus / COVID-19? No / Unsure 04/14/2021 12:48 PM CDT documented as of this encounter Miscellaneous Notes * Telephone Encounter - Sabina Holly RN - 04/12/2021 12:20 PM CDT Tonny calling in from [facility]. He is requesting to find out [...] 19 Confirmed 05/31/2022 05/31/2022 023 12:16 AM TMR TEACHER Respiratory Rule Out - RPA 02/26/2023 02/26/2023 0 02/26/2023 11:31 AM CDT COVID - 19 02/26/2023 02/26/2023 03/08/2023 12:1 6 AM CDT documented as of this encounter Care Teams Track Rider Relationship Specialty Start Date End Date Jabier Peck MD #[address] [address] PCP - General Family Medicine 06/22/20 01/16/24 Tad Mcintosh MD [address] [place] [address] PCP - General Family Medicine 01/17/24 Srikanth Adrian MD #2 [facility] [address] [place] [address] Mold Inspector Cardiovascular Disease - Cardiology 02/02/22 08/06/24 Gloria Martinez MD #2 [facility] [address] [place] [address] Consulting Physician Urology 04/30/24 documented as of this encounter
--- OUTSIDE RECORDS SUMMARY | 2024-10-28 13:11 | XMS_ITS | Encounter Summary ---
Author Organization [facility] Address [address] [place] [address] Phone Care Team Providers Care Astronomy Instructor Name Role Phone Jabier Peck MD Primary Care Provider [phone] Srikanth Adrian MD Unavailable Tad Romero MD Primary Care Provider Gloria Martinez MD Unavailable [phone] Reason for Visit * Reason Comments Medication Refill Encounter Details Date Type Department Care Team (Late st Contact Info) Description 06/21/2022 Refill [facility] #2 [place] [address] Jabier Peck MD #[address] [address] Medication Refill Social History Tobacco Use Types [...] CDT Gender Identity Male 05/03/2023 12:44 PM KIER HAND Sexual Orientation Lesbian or Wolff 05/03/2023 12 :44 PM KIER HAND COVID-19 Exposure Response Date Recorded In the last 10 days, have yo u been in contact with someone who was confirmed or suspected to have Coronavirus/COVID-19? Yes 05/31/2022 2:12 PM KIER HAND documented as of this encounter Miscellaneous Notes * Telephone Encounter - Libertad Shearer RN - 06/21/2022 1:33 PM CST Name from pharmacy: [facility] MCG CAPSULE Will file in chart as: [facility] MCG Capsule The original prescription was discontinued on 02/24/2022 by Kishore Prieto APRN, RICHARD for thefollowing reason: Med List Clean Up. Renewing this prescription may not be appropriate. HAND documented in this encounter Plan of Treatment Not on file documented as of this encounter Visit Diagnoses Not on filedocumented in this encounter Additional Health Concerns Infection Onset Date Last Indicated Resolved Time Respiratory Rule Out - RPA 02/26/2023 02/26/2023 0 02/26/2023 11:31 AM CDT COVID - 19 02/26/2023 02/26/2023 03/08/2023 12:1 6 AM CDT documented as of this encounter Care Teams Astronomy Instructor Relationship Specialty Start Date End Date Jabier Peck MD #[address] [address] PCP - General Family Medicine 06/22/20 01/16/24 Tad Mcintosh MD [address] [place] [address] PCP - General Family Medicine 01/17/24 Srikanth Adrian MD #[address] [address] Dietary Director Cardiovascular Disease - Cardiology 02/02/22 08/06/24 Gloria Martinez MD #2 [place] [address] Consulting Physician Urology 04/30/24 documented as of this encounter
--- OUTSIDE RECORDS SUMMARY | 2024-10-28 13:11 | XMS_ITS | Encounter Summary ---
Author Organization [facility] Address [address] [place] [address] Phone Care Team Providers Care Hand Pleater Name Role Phone Jabier Peck MD Primary Care Provider [phone] Srikanth Adrian MD Unavailable Tad Romero MD Primary Care Provider [phone] Gloria Martinez MD Unavailable [phone] Reason for Visit * Reason Comments Medication Refill Encounter Details Date Type Department Care Team (Late st Contact Info) Description 03/24/2022 Refill [facility] Medical Group - Family Medicine [facility] #2 [place] [address] Kishore Prieto, BULK MATERIALS HANDLING PLANT OPERATOR, ULTRASOUND SONOGRAPHER #[address] [address] Medication Refill Social History Tobacco Use Types [...] CDT Gender Identity Male 05/03/2023 12:44 PM STAYING MACHINE OPERATOR Sexual Orientation Lesbian or Wolff 05/03/2023 12 :44 PM STAYING MACHINE OPERATOR COVID-19 Exposure Response Date Recorded [...] 19 Confirmed 05/31/2022 05/31/2022 023 12:16 AM STAYING MACHINE OPERATOR Respiratory Rule Out - RPA 02/26/2023 02/26/2023 0 02/26/2023 11:31 AM CDT COVID - 19 02/26/2023 02/26/2023 03/08/2023 12:1 6 AM CDT documented as of this encounter Care Teams Hand Pleater Relationship Specialty Start Date End Date Jabier Peck MD #2 [facility] [address] [place] [address] PCP - General Family Medicine 06/22/20 01/16/24 Tad Mcintosh MD [address] [place] [address] PCP - General Family Medicine 01/17/24 Srikanth Adrian MD #2 [facility] [address] [place] [address] Planning Rn Cardiovascular Disease - Cardiology 02/02/22 08/06/24 Gloria Martinez MD #2 [facility] [address] [place] [address] Consulting Physician Urology 04/30/24 documented as of this encounter
--- OUTSIDE RECORDS SUMMARY | 2024-10-28 13:11 | XMS_ITS | Encounter Summary ---
Author Organization [facility] Address [address] [place] [address] Phone Care Team Providers Care Natural Sciences Professor Name Role Phone Tad Mcintosh MD Primary Care Provider [phone] Gloria Martinez MD Unavailable [phone] Reason for Visit * Reason Comments Medication Refill Encounter Details Date Type Department Care Team (Late st Contact Info) Description 10/20/2024 Refill [facility] Medical Group - Family Medicine [facility] #2 [place] [address] Jabier Peck MD #[address] [address] Medication Refill Social History Tobacco Use Types [...] CDT Gender Identity Male 05/03/2023 12:44 PM ORTHOPEDIC RADIOLOGIC TECHNOLOGIST Sexual Orientation Lesbian or Wolff 05/03/2023 12 :44 PM ORTHOPEDIC RADIOLOGIC TECHNOLOGIST documented as of this encounter Miscellaneous Notes * Telephone Encounter - Francine Soto RN - 10/21/2024 8:22 AM CDT PCP: Tad Mcintosh MD documented in this encounter Plan of Treatment Not on file documented as of this encounter Visit Diagnoses Not on filedocumented in this encounter Care Teams Natural Sciences Professor Relationship Specialty Start Date End Date Tad Mcintosh MD [address] [place] [address] PCP - General Family Medicine 01/17/24 Gloria Martinez MD #[address] [address] Consulting Physician Urology 04/30/24 documented as of this encounter
--- OUTSIDE RECORDS SUMMARY | 2024-10-28 13:11 | XMS_ITS | Clinical Summary ---
Author Organization [facility] Address [address] [place] [address] Care Team Providers Care Fios Line Installer Name Role Phone Jabier Peck MD MPH Primary Care Provider [phone] Allergies Active Allergy Reactions Criticality Noted Date [...] 4.0 - 6.0 Blood (Blood, Venous) 12/30/2021 [facility] Provider LAB BLOOD ORDERABLES Becky l Result from Last 3 Months or Most Recently Relevant to Health Maintenance Insurance UHC Medicare Medicaid [place] Care Teams Fios Line Installer Relationship Specialty Start Date End Date Jabier Peck MD MPH [address] [address] PCP - General Family Medicine 09/13/21
--- OUTSIDE RECORDS SUMMARY | 2024-10-28 13:11 | XMS_ITS | Encounter Summary ---
Author Organization [facility] Address [address] [place] [address] Phone Care Team Providers Care Director Sales Training Name Role Phone Jabier Peck MD Primary Care Provider [phone] Srikanth Adrian MD Unavailable Tad Romero MD Primary Care Provider [phone] Gloria Martinez MD Unavailable [phone] Reason for Visit * Reason Comments Medication Refill Encounter Details Date Type Department Care Team (Late st Contact Info) Description 06/16/2021 Refill [facility] - Family [facility] #2 [place] [address] Jabier Peck MD #[address] [address] Medication Refill Social History Tobacco Use Types [...] CDT Gender Identity Male 05/03/2023 12:44 PM CIVIL ENGINEERING TEACHER Sexual Orientation Lesbian or Wolff 05/03/2023 12 :44 PM CIVIL ENGINEERING TEACHER COVID-19 Exposure Response Date Recorded In the last month, have you been in contact with someone who was confirmed or suspected to have Coronavirus / COVID-19? No / Unsure 06/16/2021 1:10 PM CIVIL ENGINEERING TEACHER documented as of this encounter Miscellaneous [...] [place] 06/22/20 Office Visit Kishore Prieto APRN, RUG UNDERLAY MACHINE OPERATOR [facility] Showing recent visits within past 365 days and meeting all other requirements Future Appointments Date Type Provider Dept 08/01/21 Appointment Jabier Peck MD [facility] Showing future appointments within next 90 days and meeting all other requirements L ENGINEERING TEACHER documented in this encounter Plan of Treatment Not on file documented as of this encounter Visit Diagnoses Diagnosis Cervical radiculopathy Brachial neuritis or radiculitis nos documented in this encounter Additional Health Concerns Infection Onset Date Last Indicated Resolved Time COVID - 19 Confirmed 05/31/2022 05/31/2022 023 12:16 AM CIVIL ENGINEERING TEACHER Respiratory Rule Out - RPA 02/26/2023 02/26/2023 0 02/26/2023 11:31 AM CDT COVID - 19 02/26/2023 02/26/2023 03/08/2023 12:1 6 AM CDT documented as of this encounter Care Teams Director Sales Training Relationship Specialty Start Date End Date Jabier Peck MD #2 [facility] [address] [place] [address] PCP - General Family Medicine 06/22/20 01/16/24 Tad Mcintosh MD [address] [place] [address] PCP - General Family Medicine 01/17/24 Srikanth Adrian MD #2 [facility] [address] [place] [address] Termite Exterminator Helper Cardiovascular Disease - Cardiology 02/02/22 08/06/24 Gloria Martinez MD #2 [facility] [address] [place] [address] Consulting Physician Urology 04/30/24 documented as of this encounter
--- OUTSIDE RECORDS SUMMARY | 2024-10-28 13:11 | XMS_ITS | Encounter Summary ---
Author Organization [facility] Address [address] [facility] [place] [address] Phone Care Team Providers Care Connie Cleaner Name Role Phone Jabier Peck MD Primary Care Provider [phone] Srikanth Adrian MD Unavailable Tad Romero MD Primary Care Provider [phone] Gloria Martinez MD Unavailable [phone] Reason for Visit * Reason Comments Medication Refill Encounter Details Date Type Department Care Team (Late st Contact Info) Description 07/22/2021 [facility]ill [facility] Oncology [facility] [address] [place] [id number] Jt Morillo MD [address] [place] [address] Medication Refill Social History Tobacco Use Types [...] CDT Gender Identity Male 05/03/2023 12:44 PM FILM TESTS CHECKER Sexual Orientation Lesbian or Wolff 05/03/2023 12 :44 PM FILM TESTS CHECKER COVID-19 Exposure Response Date Recorded In the last month, have you been in contact with someone who was confirmed or suspected to have Coronavirus / COVID-19? No / Unsure 07/14/2021 12:17 PM FILM TESTS CHECKER documented as of this encounter Miscellaneous Notes * Telephone Encounter - Michelle Wharton RN - 07/22/2021 2:26 PM FILM TESTS CHECKER Refilled Eliquis TESTS CHECKER documented in this encounter Plan of Treatment Not on file documented as of this encounter Visit Diagnoses Diagnosis History of thrombophilia associated with MTHFR mutation documented in this encounter Additional Health Concerns Infection Onset Date Last Indicated Resolved Time COVID - 19 Confirmed 05/31/2022 05/31/2022 023 12:16 AM FILM TESTS CHECKER Respiratory Rule Out - RPA 02/26/2023 02/26/2023 0 02/26/2023 11:31 AM CDT COVID - 19 02/26/2023 02/26/2023 03/08/2023 12:1 6 AM CDT documented as of this encounter Care Teams Connie Cleaner Relationship Specialty Start Date End Date Jabier Peck MD #2 [facility] [address] [place] [address] PCP - General Family Medicine 06/22/20 01/16/24 Tad Mcintosh MD [address] [place] [address] PCP - General Family Medicine 01/17/24 Srikanth Adrian MD #2 [facility] [address] [place] [address] Warehouse Assembly Worker Cardiovascular Disease - Cardiology 02/02/22 08/06/24 Gloria Martinez MD #2 [facility] [address] [place] [address] Consulting Physician Urology 04/30/24 documented as of this encounter
--- OUTSIDE RECORDS SUMMARY | 2024-10-28 13:11 | XMS_ITS | Clinical Summary ---
Author Organization [facility] Address [address] [facility], [address] [address] Phone Care Team Providers Care Decay Control Operator Name Role Phone Tad Mcintosh MD Primary Care Provider [phone] Gloria Martinez MD Unavailable Allergies Active Allergy Reactions Criticality Noted Date [...] Type Department Care Team Description 10/21/2024 [facility] [place] [address] Jabier Peck MD Medication Refill 10/20/2024 [facility] [place] [address] Jabier Peck MD Medication Refill from Last [...] CDT Gender Identity Male 05/03/2023 12:44 PM WOOD BUFFER Sexual Orientation Lesbian or Wolff 05/03/2023 12 :44 PM WOOD BUFFER Last Filed Vital Signs Vital Sign Reading Time Taken Comments Blood Pressure 129/82 03/11/2024 2:22 PM CDT Pulse 71 03/11/2024 2:22 PM CDT Temperature 36.5 C (97.7 F) 05/11/2023 1:15 PM WOOD BUFFER Respiratory Rate 18 03/11/2024 2:22 PM CDT [...] CHEST SCREENING WO Routine 05/10/2022 2:52 PM WOOD BUFFER Personal history of nicotine dependence PODIATRY CONSULT 08/18/2021 12:0 0 AM WOOD BUFFER from Last 3 Months or Most Recently Relevant to Health Maintenance Results * (ABNORMAL) HEMOGLOBIN A1C W/ ESTIMATED GLUCOSE (02/26/2023 12:32 PM CDT) Pathologist [facility] HGB-A1C 7.1(H) 4.0 - 6.0 % 02/26/2023 1:18 PM CDT [facility] Est Average Glucose 157.1 mg/dL 02/26/2023 1:18 PM CDT [facility] Blood Venipuncture / Unknown 02/26/2023 12:32 PM CDT 02/26/2023 12:58 PM CDT Narrative [facility] - 02/26/2023 1:18 PM CDT HEMOGLOBIN A1C: DIABETIC PATIENTS: WELL-CONTROLLED: 6.2 - 7.0 INTERMEDIATE WELL-CONTROLLED: 7.0 - 9.0 POORLY-CONTROLLED: >9.0 us Kishore Prieto CAFETERIA CLERK, WEDGER AND GLUER CHEMISTRY ORDERA BLES Final Result [facility] #1 [place] [address] * PSA SCREEN (02/26/2023 12:32 PM CDT) Pathologist [facility] PSA SCREEN, TOTAL 0.60 <4.00 ng/mL 02/26/2023 1:45 PM CDT [facility] Blood Venipuncture / Unknown 02/26/2023 12:32 PM CDT 02/26/2023 12:57 PM CDT Narrative [facility] - 02/26/2023 1:45 PM CDT The UNIFORM ATTENDANT Total PSA assay is a Chemiluminescent Microparticle Immunoassay (CMIA) for the quantitative determination of total PSA (both free PSA and PSA complexed to [id number]) in human serum. us Kishore Prieto APRN, CNP CHEMISTRY ORDERA BLES Final Result [facility] #1 [place] [address] * (ABNORMAL) CMP (COMPREHENSIVE METABOLIC PANEL) (02/26/2023 12:32 PM CDT) SODIUM 140 136 - 145 mmol/L 02/26/2023 1:22 PM CDT [facility] POTASSIUM 3.8 3.5 - 5.1 mmol/L 02/26/2023 1:22 PM CDT [facility] CHLORIDE 106 98 - 107 mmol/L 02/26/2023 1:22 PM CD[address] [facility] CO2, VENOUS 25 22 - 30 mmol/L 02/26/2023 1:22 PM CDT [facility] ANION GAP 12.8 <18.0 mmol/L 02/26/2023 1:22 PM CDT [facility] GLUCOSE 141(H) 70 - 99 mg/dL 02/26/2023 1:22 PM CDT [facility] BUN 17 8 - 26 mg/dL 02/26/2023 1:22 PM CDT [facility] CREATININE, BLOOD 1.49(H) 0.70 - 1.30 mg/dL 02/26/2023 1:22 PM CD[address] [facility] BUN/CREATININE RATIO 11(L) 12 - 20 ratio 02/26/2023 1:22 PM CDT [facility] TOTAL PROTEIN 6.7 6.3 - 8.2 g/dL 02/26/2023 1:22 PM [address] [facility] ALBUMIN 3.8 3.5 - 5.0 g/dL 02/26/2023 1:22 PM CD[address] [facility] A/G RATIO 1.3 1.0 - 2.2 02/26/2023 1:22 PM CD[address] [facility] CALCIUM 9.3 8.7 - 10.5 mg/dL 02/26/2023 1:22 PM CDT [facility] T BILI 0.4 0.2 - 1.2 mg/dL 02/26/2023 1:22 PM CDT [facility] SGOT (AST) 20 5 - 34 U/L 02/26/2023 1:22 PM CDT [facility] SGPT (ALT) 37 0 - 55 U/L 02/26/2023 1:22 PM CDT [facility] ALKALINE PHOSPHATASE 102 40 - 150 U/L 02/26/2023 1:22 PM CDT [facility] IS THE PATIENT REQUIRED TO BE FASTING? No 02/26/2023 1:22 PM CDT [facility] GFR, ESTIMATED 55(L) >=60 02/26/2023 1:22 PM CDT [facility] Comment: Creatinine Clearance is the preferred criteria for selecting drug dose adjustments in renally impaired patients. The GFR is provided as additional pertinent clinical information. GFR is reported in mL/min/1.73 sq m. Calculation based on the Chronic Kidney Disease Epidemiology Collaboration (CKD- EPI) equation refit without adjustment for race. GFR, EST. 60 >=60 023 1:22 PM CD[address] [facility] GFR, EST. NONAFRICAN 49(L) >=60 02/26/2023 1:22 PM CDT [facility] Blood Venipuncture / Unknown 02/26/2023 12:32 PM CDT 02/26/2023 12:57 PM CDT us Kishore Prieto CAFETERIA CLERK, WEDGER AND GLUER CHEMISTRY ORDERA BLES Final Result [facility] [address] [address] * CT CHEST SCREENING WO (05/10/2022 2:52 PM WOOD BUFFER) Anatomical Region Laterality Modality Chest N/A Computed Tomogra phy 05/12/2022 9:10 AM WOOD BUFFER Impressions 05/12/2022 9:13 AM WOOD BUFFER IMPRESSION: 1. Background of mild pulmonary emphysema. 2. Scattered tiny bilateral pulmonary nodules. No suspicious nodularity. 3. Mild coronary artery calcifications. 4. Additional findings as above. Lung-RADS v1.1 category 2: Benign appearance or behavior. Recommendation: Low dose CT of chest in 12 months. Narrative 05/12/2022 9:13 AM WOOD BUFFER EXAM DESCRIPTION: CT CHEST SCREENING WO REASON [...] Mallorie Gomez M.D. TW: KRI[place]IN Report ID: [id number] [place] Location: [place] [address] Procedure Note Mallorie Gomez MD - 05/12/2022 [...] Mallorie Gomez M.D. TW: KRISTIN Report ID: [id number] [place] Location: [id number] IMPRESSION: 1. Background of mild pulmonary emphysema. 2. Scattered tiny bilateral pulmonary nodules. No suspicious nodularity. 3. Mild coronary artery calcifications. 4. Additional findings as above. Lung-RADS v1.1 category 2: Benign appearance or behavior. Recommendation: Low dose CT of chest in 12 months. us Kishore Prieto APRN, RICHARD IMG CT ORDERABLE S Final Result * PODIATRY CONSULT (08/18/2021 12:00 AM WOOD BUFFER) 08/18/2021 us Not On File Provider GENERIC [...] measures to stabilize the patient. Care Teams Decay Control Operator Relationship Specialty Start Date End Date Tad Mcintosh MD [address] [place] [address] PCP - General Family Medicine 01/17/24 Gloria Martinez MD #[address] [place] [address] [address] Consulting Physician Urology 04/30/24
--- OUTSIDE RECORDS SUMMARY | 2024-10-28 13:11 | XMS_ITS | Encounter Summary ---
Author Organization [facility] Address [address] [place] [address] Phone Care Team Providers Care Reactor Kettle Operator Name Role Phone Jabier Peck MD Primary Care Provider [phone] Srikanth Adrian MD Unavailable Tad Romero MD Primary Care Provider [phone] Gloria Martinez MD Unavailable [phone] Reason for Visit * Reason Comments Medication Refill Encounter Details Date Type Department Care Team (Late st Contact Info) Description 03/19/2023 Refill [facility] #2 [place] [address] Jabier Pekc MD #[address] [address] Medication Refill Social History Tobacco Use Types [...] CDT Gender Identity Male 05/03/2023 12:44 PM INTEGRATION TECHNICIAN Sexual Orientation Lesbian or Wolff 05/03/2023 12 :44 PM INTEGRATION TECHNICIAN COVID-19 Exposure Response Date Recorded In [...] [place] 11/30/22 Telemedicine Kishore Prieto APRN, RICHARD [facility] [place] 08/21/22 Office Visit Jabier Peck MD [facility] 07/20/22 Office Visit Gerri Rocha MD [facility] 05/03/22 Telemedicine [facility] [place] Showing recent visits within [...] unspecified documented in this encounter Care Teams Reactor Kettle Operator Relationship Specialty Start Date End Date Jabier Peck MD #2 [facility] [address] [place] [address] PCP - General Family Medicine 06/22/20 01/16/24 Tad Mcintosh MD [address] [place] [address] PCP - General Family Medicine 01/17/24 Srikanth Adrian MD #2 [facility] [address] [place] [address] Still Photographer Cardiovascular Disease - Cardiology 02/02/22 08/06/24 Gloria Martinez MD #2 [facility] [address] [place] [address] Consulting Physician Urology 04/30/24 documented as of this encounter
--- OUTSIDE RECORDS SUMMARY | 2024-10-28 13:11 | XMS_ITS | Encounter Summary ---
Author Organization [facility] Address [address] [place] [address] Phone Care Team Providers Care Concert Or Lecture Hall Manager Name Role Phone Srikanth Adrian MD Unavailable Tad Romero MD Primary Care Provider Gloria Martinez MD Unavailable [phone] Reason for Visit * Reason Comments Medication Refill Encounter Details Date Type Department Care Team (Late Contact Info) Description 07/03/2024 Refill [facility] #2 [place] [address] Jabier Peck MD #[address] [address] Medication Refill Social History Tobacco Use Types [...] CDT Gender Identity Male 05/03/2023 12:44 PM INTEGRATED PEST MANAGEMENT TECHNICIAN Sexual Orientation Lesbian or Wolff 05/03/2023 12 :44 PM INTEGRATED PEST MANAGEMENT TECHNICIAN documented as of this encounter Miscellaneous Notes * Telephone Encounter - Francine Soto RN - 07/04/2024 8:54 AM CST PCP: Tad Mcintosh MD GRATED PEST MANAGEMENT TECHNICIAN documented in this encounter Plan of Treatment Not on file documented as of this encounter Visit Diagnoses Not on filedocumented in this encounter Care Teams Concert Or Lecture Hall Manager Relationship Specialty Start Date End Date Tad Mcintosh MD [address] [place] [address] PCP - General Family Medicine 01/17/24 Srikanth Adrian MD Tile Sorter Cardiovascular Disease - Cardiology 02/02/22 08/06/24 Gloria Martinez MD #[address] [address] Consulting Physician Urology 04/30/24 documented as of this encounter
--- OUTSIDE RECORDS SUMMARY | 2024-10-28 13:11 | XMS_ITS ---
Author Name ABBY BUTLER Address [address] [place] [address] Phone [facility] Address [address] [place] [address] Phone Care Team Providers Care Civil Engineering Assistant Name Role Phone ABBY BUTLER Unavailable [phone] ALLERGIES, ADVERSE REACTIONS AND ALERTS Allergy Name Allergy Date Allergy Status Allergy Severity Allergy Reaction NO KNOWN DRUG ALLERGIES PROBLEMS Problem Code Problem Description Problem Status Problem Da te Problem End Date [id number]-Vgrpkugyqpl tract congestion and cough Respiratory tract congestion and cough Current 04/28/2022 64686203-Hiiooru disorder Bipolar disorder Chronic 04/28/2022 79102711-Vnwvonqww emphysema Pulmonary emphysema Chronic 04/28/2022 58195125-Axlszm disease Kidney disease Chronic 04/28/2022 41250333-Gpadjhkj mellitus Diabetes mellitus Chronic 04/28/2022 [id number]-Ucpvxy Asthma Chronic 04/28/2022 09012879-Qphypbqneek sleep apnea syndrome Obstructive sleep apnea syndrome [...] if ever smoked Sex:Male CARE TEAM INFORMATION Civil Engineering Assistant Provider ID Role Location Phone ABBY BUTLER [phone] NURSE PRACTITIONER [address] [place] [address]
--- OUTSIDE RECORDS SUMMARY | 2024-10-28 13:11 | XMS_ITS | Encounter Summary ---
Author Organization [facility] Address [address] [place] [address] Phone Care Team Providers Care Bench Grinder Name Role Phone Jabier Peck MD Primary Care Provider [phone] Srikanth Adrian MD Unavailable Tad Romero MD Primary Care Provider [phone] Gloria Martinez MD Unavailable [phone] Reason for Visit * Reason Onset Date Comments Medication Refill Requesting new referral to [facility] 11/10/2022 Encounter Details Date Type Department Care Team (Late st Contact Info) Description 11/10/2022 Refill [facility] #2 [place] [address] Jabier Peck MD #[address] [address] Medication Refill; Requesting new referral to [facility] Social History Tobacco Use Types Packs/Day Years [...] Gender Identity Male 05/03/2023 12:44 PM BUSINESS PERFORMANCE SPECIALIST Sexual Orientation Lesbian or Wolff 05/03/2023 12 :44 PM BUSINESS PERFORMANCE SPECIALIST documented as of this encounter Miscellaneous Notes * Telephone Encounter - Nikky Irby - 11/10/2022 1:42 PM CDT C: Tae Kent is requesting a new referral to [facility]. . Please call Tae (relationship to patient [...] [place] 07/20/22 Office Visit [facility] [place] 05/03/22 Telemedicine Jabier Peck MD [facility] 03/03/22 Office Visit Jabier Peck MD [facility] 02/24/22 Office Visit Kishore Prieto APRN, RICHARD [facility] 01/31/22 Office Visit Kishore Prieto APRN, RICHARD [facility] 12/13/21 Telemedicine Kishore Prieto APRN, SCREW MACHINE SETTER [facility] [place] Showing recent visits within past 365 [...] RICHARD [facility] 12/13/21 Telemedicine Kishore Prieto APRN, SCREW MACHINE SETTER [facility] [place] Showing recent visits within past [...] documented as of this encounter Care Teams Bench Grinder Relationship Specialty Start Date End Date Jabier Peck MD #2 [facility] [address] [place] [address] PCP - General Family Medicine 06/22/20 01/16/24 Tad Mcintosh MD [address] [place] [address] PCP - General Family Medicine 01/17/24 Srikanth Adrian MD #2 [facility] [address] [place] [address] Ampoule Examiner Cardiovascular Disease - Cardiology 02/02/22 08/06/24 Gloria Martinez MD #2 [facility] [address] [place] [address] Consulting Physician Urology 04/30/24 documented as of this encounter
--- OUTSIDE RECORDS SUMMARY | 2024-10-28 13:11 | XMS_ITS | Encounter Summary ---
Author Organization [facility] Address [address] [place] [address] Phone Care Team Providers Care Cupola Tapper Helper Name Role Phone Jabier Peck MD Primary Care Provider [phone] Srikanth Adrian MD Unavailable Tad Romero MD Primary Care Provider [phone] Gloria Martinez MD Unavailable [phone] Reason for Visit * Reason Comments Medication Refill Encounter Details Date Type Department Care Team (Late st Contact Info) Description 04/13/2023 Refill [facility] #2 [place] [address] Jabier Peck MD #[address] [address] Medication Refill Social History Tobacco Use Types [...] CDT Gender Identity Male 05/03/2023 12:44 PM SKEIN DRIER Sexual Orientation Lesbian or Wolff 05/03/2023 12 :44 PM SKEIN DRIER documented as of this encounter Miscellaneous Notes [...] Rocha MD [facility] 05/03/22 Telemedicine Jabier ePck MD [facility] Showing recent visits within [...] nos documented in this encounter Care Teams Cupola Tapper Helper Relationship Specialty Start Date End Date Jabier Peck MD #2 [facility] [address] [place] [address] PCP - General Family Medicine 06/22/20 01/16/24 Tad Mcintosh MD [address] [place] [address] PCP - General Family Medicine 01/17/24 Srikanth Adrian MD #2 [facility] [address] [place] [address] Supervisor Boiler Repair Cardiovascular Disease - Cardiology 02/02/22 08/06/24 Gloria Martinez MD #2 [facility] [address] [place] [address] Consulting Physician Urology 04/30/24 documented as of this encounter
--- OUTSIDE RECORDS SUMMARY | 2024-10-28 13:11 | XMS_ITS | Encounter Summary ---
Author Organization [facility] Address [address] [place] [address] Phone Care Team Providers Care Central Melt Specialist Name Role Phone Jabier Peck MD Primary Care Provider [phone] Srikanth Adrian MD Unavailable Tad Romero MD Primary Care Provider [phone] Gloria Martinez MD Unavailable [phone] Reason for Visit * Reason Onset Date Comments Medication Refill 03/28/2021 Encounter Details Date Type Department Care Team (Late st Contact Info) Description 03/28/2021 Refill [facility] - Family Medicine [facility] #2 [place] [address] Jabier Peck MD #[address] [address] Medication Refill Social History Tobacco Use Types [...] CDT Gender Identity Male 05/03/2023 12:44 PM ENTRY LEVEL AUTOMOTIVE TECHNICIAN Sexual Orientation Lesbian or Wolff 05/03/2023 12 :44 PM ENTRY LEVEL AUTOMOTIVE TECHNICIAN COVID-19 Exposure Response Date Recorded In [...] [place] 06/22/20 Office Visit Kishore Prieto APN, WAYBILL CLERK [facility] Showing recent visits within past 365 days and meeting all other requirements Future Appointments Date Type Provider Dept 04/08/21 Appointment Jabier Peck MD [facility] [place] Showing future appointments within next 90 [...] 19 Confirmed 05/31/2022 05/31/2022 023 12:16 AM ENTRY LEVEL AUTOMOTIVE TECHNICIAN Respiratory Rule Out - RPA 02/26/2023 02/26/2023 0 02/26/2023 11:31 AM CDT COVID - 19 02/26/2023 02/26/2023 03/08/2023 12:1 6 AM CDT documented as of this encounter Care Teams Central Melt Specialist Relationship Specialty Start Date End Date Jabier Peck MD #2 [facility] [address] [place] [address] PCP - General Family Medicine 06/22/20 01/16/24 Tad Mcintosh MD [address] [place] [address] PCP - General Family Medicine 01/17/24 Srikanth Adrian MD #2 [facility] [address] [place] [address] Utilization Management Manager Cardiovascular Disease - Cardiology 02/02/22 08/06/24 Gloria Martinez MD #2 [facility] [address] [place] [address] Consulting Physician Urology 04/30/24 documented as of this encounter
--- OUTSIDE RECORDS SUMMARY | 2024-10-28 13:11 | XMS_ITS | Encounter Summary ---
Author Organization [facility] Address [address] [place] [address] Phone Care Team Providers Care Contact Center Manager Name Role Phone Srikanth Adrian MD Unavailable Tad Romero MD Primary Care Provider [phone] Gloria Martinez MD Unavailable [phone] Reason for Visit * Reason Comments Medication Refill Encounter Details Date Type Department Care Team (Late Contact Info) Description 03/15/2024 Refill [facility] - Family Medicine [facility] #2 [place] [address] Kishore Prieto APRN, SIGN PAINTER #[address] [address] Medication Refill Social History Tobacco Use Types [...] CDT Gender Identity Male 05/03/2023 12:44 PM PATTERN DRAFTER Sexual Orientation Lesbian or Wolff 05/03/2023 12 :44 PM PATTERN DRAFTER documented as of this encounter Miscellaneous Notes * Telephone Encounter - Francine Soto RN - 03/17/2024 12:59 PM CDT PCP Tad Mcintosh MD documented in this encounter Plan of Treatment Not on file documented as of this encounter Visit Diagnoses Not on filedocumented in this encounter Care Teams Contact Center Manager Relationship Specialty Start Date End Date Tad Mcintosh MD [address] [place] [address] PCP - General Family Medicine 01/17/24 Srikanth Adrian MD Pharmacy Laboratory Technician Cardiovascular Disease - Cardiology 02/02/22 08/06/24 Gloria Martinez MD #[address] [address] Consulting Physician Urology 04/30/24 documented as of this encounter
--- OUTSIDE RECORDS SUMMARY | 2024-10-28 13:11 | XMS_ITS | Encounter Summary ---
Author Organization [facility] Address [address] [place] [address] Phone Care Team Providers Care Tobacco Buyer Name Role Phone Jabier Peck MD Primary Care Provider [phone] Srikanth Adrian MD Unavailable Tad Romero MD Primary Care Provider [phone] Gloria Martinez MD Unavailable [phone] Reason for Visit * Reason Comments Medication Refill Encounter Details Date Type Department Care Team (Late st Contact Info) Description 06/12/2022 Refill [facility] Medical [facility] - Family [facility] #2 [place] [address] Jabier Peck MD #[address] [address] Medication Refill Social History Tobacco Use Types [...] CDT Gender Identity Male 05/03/2023 12:44 PM OPTHALMIC TECH Sexual Orientation Lesbian or Wolff 05/03/2023 12 :44 PM OPTHALMIC TECH COVID-19 Exposure Response Date Recorded In the last 10 days, have yo u been in contact with someone who was confirmed or suspected to have Coronavirus/COVID-19? Yes 05/31/2022 2:12 PM OPTHALMIC TECH documented as of this encounter Miscellaneous Notes * Telephone Encounter - Anjali Hartley RN - 06/13/2022 11:16 AM OPTHALMIC TECH Medication warning. Per nursing clinical judgement, provider [...] MD [facility] 02/24/22 Office Visit Kishore Priteo APRN, RICHARD [facility] 01/31/22 Office Visit [...] 90 days and meeting all other requirements ALMIC TECH documented in this encounter Plan of Treatment Not on file documented as of this encounter Visit Diagnoses Not on filedocumented in this encounter Additional Health Concerns Infection Onset Date Last Indicated Resolved Time COVID - 19 Confirmed 05/31/2022 05/31/2022 023 12:16 AM OPTHALMIC TECH Respiratory Rule Out - RPA 02/26/2023 02/26/2023 0 02/26/2023 11:31 AM CDT COVID - 19 02/26/2023 02/26/2023 03/08/2023 12:1 6 AM CDT documented as of this encounter Care Teams Tobacco Buyer Relationship Specialty Start Date End Date Jabier Peck MD #2 [facility] [address] [place] [address] PCP - General Family Medicine 06/22/20 01/16/24 Tda Mcintosh MD [address] [place] [address] PCP - General Family Medicine 01/17/24 Srikanth Adrian MD #2 [facility] [address] [place] [address] Guard Museum Cardiovascular Disease - Cardiology 02/02/22 08/06/24 Gloria Martinez MD #2 [facility] [address] [place] [address] Consulting Physician Urology 04/30/24 documented as of this encounter
--- OUTSIDE RECORDS SUMMARY | 2024-10-28 13:11 | XMS_ITS | Encounter Summary ---
Author Organization [facility] Address [address] [place] [address] Phone Care Team Providers Care Fur Trapper Name Role Phone Jabier Peck MD Primary Care Provider [phone] Srikanth Adrian MD Unavailable Tad Romero MD Primary Care Provider [phone] Gloria Martinez MD Unavailable [phone] Reason for Visit * Reason Comments Medication Refill Encounter Details Date Type Department Care Team (Late st Contact Info) Description 07/10/2022 Refill [facility] Medical Group - Family [facility] #2 [place] [address] Jabier Peck MD #[address] [address] Medication Refill Social History Tobacco Use Types [...] CDT Gender Identity Male 05/03/2023 12:44 PM TUBERCULOSIS SPECIALIST Sexual Orientation Lesbian or Wolff 05/03/2023 12 :44 PM TUBERCULOSIS SPECIALIST documented as of this encounter Miscellaneous Notes * Telephone Encounter - Anjali Hartley RN - 07/10/2022 12:34 PM TUBERCULOSIS SPECIALIST Refill requested too soon. RCULOSIS SPECIALIST documented in this encounter Plan of Treatment Not on file documented as of this encounter Visit Diagnoses Not on filedocumented in this encounter Additional Health Concerns Infection Onset Date Last Indicated Resolved Time Respiratory Rule Out - RPA 02/26/2023 02/26/2023 0 02/26/2023 11:31 AM CDT COVID - 19 02/26/2023 02/26/2023 03/08/2023 12:1 6 AM CDT documented as of this encounter Care Teams Fur Trapper Relationship Specialty Start Date End Date Jabier Peck MD #[address] [address] PCP - General Family Medicine 06/22/20 01/16/24 Tad Mcintosh MD [address] [place] [address] PCP - General Family Medicine 01/17/24 Srikanth Adrian MD #2 [facility] [address] [place] [address] Research Clerk Cardiovascular Disease - Cardiology 02/02/22 08/06/24 Gloria Martinez MD #[address] [address] Consulting Physician Urology 04/30/24 documented as of this encounter
--- OUTSIDE RECORDS SUMMARY | 2024-10-28 13:11 | XMS_ITS | Encounter Summary ---
Author Organization [facility] Address [address] [place] [address] Phone Care Team Providers Care Inspection And Testing Supervisor Name Role Phone Jabier Peck MD Primary Care Provider [phone] Srikanth Adrian MD Unavailable Tad Romero MD Primary Care Provider [phone] Gloria Martinez MD Unavailable [phone] Encounter Details Date Type Department Care Team (Late st Contact Info) Description 03/21/2023 Telephone [facility] [address] [place] [address] Jabier Peck MD #[address] [address] Social History Tobacco Use Types Packs/Day Years [...] CDT Gender Identity Male 05/03/2023 12:44 PM INSTRUMENT MECHANIC Sexual Orientation Lesbian or Wolff 05/03/2023 12 :44 PM INSTRUMENT MECHANIC COVID-19 Exposure Response Date Recorded In the [...] on filedocumented in this encounter Care Teams Inspection And Testing Supervisor Relationship Specialty Start Date End Date Jabier Peck MD #2 [facility] [address] [place] [address] PCP - General Family Medicine 06/22/20 01/16/24 Tad Mcintosh MD [address] [place] [address] PCP - General Family Medicine 01/17/24 Srikanth Adrian MD #2 [facility] [address] [place] [address] Chief Clinical Officer Cardiovascular Disease - Cardiology 02/02/22 08/06/24 Gloria Martinez MD #2 [facility] [address] [place] [address] Consulting Physician Urology 04/30/24 documented as of this encounter
--- OUTSIDE RECORDS SUMMARY | 2024-10-28 13:11 | XMS_ITS | Encounter Summary ---
Author Organization [facility] Address [address] [place] [address] Phone Care Team Providers Care Plastic Panel Installer Name Role Phone Jabier Peck MD Primary Care Provider [phone] Srikanth Adrian MD Unavailable Tad Romero MD Primary Care Provider [phone] Gloria Martinez MD Unavailable [phone] Reason for Visit * Reason Comments Medication Refill Encounter Details Date Type Department Care Team (Late st Contact Info) Description 02/02/2021 Refill [facility] Medical Group - Family [facility] #2 [place] [address] Jabier Peck MD #[address] [address] Medication Refill Social History Tobacco Use Types [...] CDT Gender Identity Male 05/03/2023 12:44 PM PLANNER CHIEF Sexual Orientation Lesbian or Wolff 05/03/2023 12 :44 PM PLANNER CHIEF documented as of this encounter Miscellaneous Notes [...] 06/22/20 Office Visit Kishore Prieto APN, RICHARD [facility] Showing recent visits within past [...] 19 Confirmed 05/31/2022 05/31/2022 023 12:16 AM PLANNER CHIEF Respiratory Rule Out - RPA 02/26/2023 02/26/2023 0 02/26/2023 11:31 AM CDT COVID - 19 02/26/2023 02/26/2023 03/08/2023 12:1 6 AM CDT documented as of this encounter Care Teams Plastic Panel Installer Relationship Specialty Start Date End Date Jabier Peck MD #2 [facility] [address] [place] [address] PCP - General Family Medicine 06/22/20 01/16/24 Tad Mcintosh MD [address] [place] [address] PCP - General Family Medicine 01/17/24 Srikanth Adrian MD #2 [facility] [address] [place] [address] Reinforcing Rod Layer Cardiovascular Disease - Cardiology 02/02/22 08/06/24 Gloria Martinez MD #[address] [facility] [address] [place] [address] Consulting Physician Urology 04/30/24 documented as of this encounter
--- OUTSIDE RECORDS SUMMARY | 2024-10-28 13:11 | XMS_ITS | Encounter Summary ---
Author Organization [facility] Address [address] [place] [address] Phone Care Team Providers Care Set Up Mold Technician Name Role Phone Jabier Peck MD Primary Care Provider [phone] Srikanth Adrian MD Unavailable Tad Romero MD Primary Care Provider [phone] Gloria Martinez MD Unavailable [phone] Reason for Visit * Reason Comments Medication Refill Encounter Details Date Type Department Care Team (Late st Contact Info) Description 02/27/2023 Refill [facility] Family [facility] #2 [place] [address] Jabier Peck MD #[address] [address] Medication Refill Social History Tobacco Use Types [...] Gender Identity Male 05/03/2023 12:44 PM 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 Sexual Orientation Lesbian or Wolff 05/03/2023 12 :44 PM FRUIT HARVEST WORKER COVID-19 Exposure Response Date Recorded In [...] documented as of this encounter Care Teams Set Up Mold Technician Relationship Specialty Start Date End Date Jabier Peck MD #2 [facility] [address] [place] [address] PCP - General Family Medicine 06/22/20 01/16/24 Tad Mcintosh MD [address] [place] [address] PCP - General Family Medicine 01/17/24 Srikanth Adrian MD #2 [facility] [address] [place] [address] Canvas Products Sales Representative Cardiovascular Disease - Cardiology 02/02/22 08/06/24 Gloria Martinez MD #2 [facility] [address] [place] [address] Consulting Physician Urology 04/30/24 documented as of this encounter
--- OUTSIDE RECORDS SUMMARY | 2024-10-28 13:11 | XMS_ITS | Encounter Summary ---
Author Organization [facility] Address [address] [place] [address] Phone Care Team Providers Care Automotive Parts Counter Associate Name Role Phone Jabier Peck MD Primary Care Provider [phone] Srikanth Adrian MD Unavailable Tad Romero MD Primary Care Provider [phone] Gloria Martinez MD Unavailable [phone] Reason for Visit * Reason Comments Medication Refill Encounter Details Date Type Department Care Team (Late st Contact Info) Description 12/07/2023 Refill [facility] #2 [place] [address] Jabier Peck MD #[address] [address] Medication Refill Social History Tobacco Use Types [...] CDT Gender Identity Male 05/03/2023 12:44 PM CARE SUPPORT REPRESENTATIVE Sexual Orientation Lesbian or Wolff 05/03/2023 12 :44 PM CARE SUPPORT REPRESENTATIVE documented as of this encounter Miscellaneous Notes * Telephone Encounter - Sheyla Burgess RN - 12/07/2023 3:21 PM CDT Per nursing clinical judgement, provider to review and approve the medication(s) order(s) if appropriate. Requested Prescriptions Pending Prescriptions Disp Refills albuterol 108 (90 Base) MCG/ACT Aerosol Solution [Pharmacy Med Name: ALBUTEROL HFA 90 MCG INHALER (AR] 8.5 g Sig: TRANSFERRED: 06/15/23 -READ RX [...] Office Visit Kishore Prieto APRN, RICHARD [facility] 12/18/22 Telemedicine Jabier Peck MD [facility] Showing recent visits within past 365 days and meeting all other requirements Future Appointments No visits were found meeting these conditions. Showing future appointments within next 90 days and meeting all other requirements documented in this encounter Plan of Treatment Not on file documented as of this encounter Visit Diagnoses Not on filedocumented in this encounter Care Teams Automotive Parts Counter Associate Relationship Specialty Start Date End Date Jabier Peck MD #2 [place] [address] PCP - General Family Medicine 06/22/20 01/16/24 Tad Mcintosh MD [address] [place] [address] PCP - General Family Medicine 01/17/24 Srikanth Adrian MD #[address] [address] Privacy Specialist Cardiovascular Disease - Cardiology 02/02/22 08/06/24 Gloria Martinez MD #2 [facility] [address] [place] [address] Consulting Physician Urology 04/30/24 documented as of this encounter
--- OUTSIDE RECORDS SUMMARY | 2024-10-28 13:11 | XMS_ITS | Encounter Summary ---
Author Organization [facility] Address [address] [place] [address] Phone Care Team Providers Care Group Rooms Coordinator Name Role Phone Jabier Peck MD Primary Care Provider [phone] Srikanth Adrian MD Unavailable Tad Romero MD Primary Care Provider [phone] Gloria Martinez MD Unavailable [phone] Reason for Visit * Reason Comments Medication Refill Encounter Details Date Type Department Care Team (Late st Contact Info) Description 03/19/2023 Refill [facility] Family [facility] #2 [place] [address] Jabier Peck MD #[address] [address] Medication Refill Social History Tobacco Use Types [...] CDT Gender Identity Male 05/03/2023 12:44 PM 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 Sexual Orientation Lesbian or Wolff 05/03/2023 12 :44 PM 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 COVID-19 Exposure Response Date Recorded In the [...] [place] 11/30/22 Telemedicine Kishore Prieto APRN, RICHARD [facility] 08/21/22 Office Visit Jabier Peck MD [facility] 07/20/22 Office Visit Gerri Rocha MD [facility] 05/03/22 Telemedicine Jabier Peck MD [facility] Showing recent visits within past 365 [...] on filedocumented in this encounter Care Teams Group Rooms Coordinator Relationship Specialty Start Date End Date Jabier Peck MD #2 [facility] [address] [place] [address] PCP - General Family Medicine 06/22/20 01/16/24 Tad Mcintosh MD [address] [place] [address] PCP - General Family Medicine 01/17/24 Srikanth Adrian MD #2 [facility] [address] [place] [address] Drug Enforcement Administration Agent Cardiovascular Disease - Cardiology 02/02/22 08/06/24 Gloria Martinez MD #2 [facility] [address] [place] [address] Consulting Physician Urology 04/30/24 documented as of this encounter
--- OUTSIDE RECORDS SUMMARY | 2024-10-28 13:11 | XMS_ITS | Encounter Summary ---
Author Organization [facility] Address [address] [facility] [place] [address] Phone Care Team Providers Care Baseball Inspector And Repairer Name Role Phone Jabier Peck MD Primary Care Provider [phone] Srikanth Adrian MD Unavailable Tad Romero MD Primary Care Provider [phone] Gloria Martinez MD Unavailable [phone] Reason for Visit * Reason Comments Medication Refill Encounter Details Date Type Department Care Team (Late st Contact Info) Description 01/06/2021 Refill [facility] Medical Group - Family Medicine [facility] #2 [place] [address] Jt Morillo MD [address] [place] [address] Medication Refill Social History Tobacco Use Types [...] CDT Gender Identity Male 05/03/2023 12:44 PM 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 TEAM 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 Sexual Orientation Lesbian or Wolff 05/03/2023 12 :44 PM RESTAURANT TEAM MEMBER documented as of this encounter Miscellaneous Notes [...] 19 Confirmed 05/31/2022 05/31/2022 023 12:16 AM RESTAURANT TEAM MEMBER Respiratory Rule Out - RPA 02/26/2023 02/26/2023 0 02/26/2023 11:31 AM CDT COVID - 19 02/26/2023 02/26/2023 03/08/2023 12:1 6 AM CDT documented as of this encounter Care Teams Baseball Inspector And Repairer Relationship Specialty Start Date End Date Jabier Peck MD #2 [facility] [address] [place] [address] PCP - General Family Medicine 06/22/20 01/16/24 Tad Mcintosh MD [address] [place] [address] PCP - General Family Medicine 01/17/24 Srikanth Adrian MD #2 [facility] [address] [place] [address] Commercial Lines Underwriter Cardiovascular Disease - Cardiology 02/02/22 08/06/24 Gloria Martinez MD #2 [facility] [address] [place] [address] Consulting Physician Urology 04/30/24 documented as of this encounter
--- OUTSIDE RECORDS SUMMARY | 2024-10-28 13:11 | XMS_ITS | Encounter Summary ---
Author Organization [facility] Address [address] [facility] [place] [place] [address] Phone Care Team Providers Care Pickling Solution Maker Name Role Phone Jabier Peck MD Primary Care Provider [phone] Srikanth Adrian MD Unavailable Tad Romero MD Primary Care Provider [phone] Gloria Martinez MD Unavailable [phone] Reason for Visit * Reason Comments Medication Refill Encounter Details Date Type Department Care Team (Late st Contact Info) Description 05/25/2022 Refill [facility] On[facility] [address] [place] [address] Jt Morillo MD [address] [place] [address] Medication Refill Social History Tobacco Use Types [...] CDT Gender Identity Male 05/03/2023 12:44 PM MEMBERSHIP COUNSELOR Sexual Orientation Lesbian or Wolff 05/03/2023 12 :44 PM MEMBERSHIP COUNSELOR COVID-19 Exposure Response Date Recorded In the last 10 days, have yo u been in contact with someone who was confirmed or suspected to have Coronavirus/COVID-19? No / Unsure 05/10/2022 2:32 PM MEMBERSHIP COUNSELOR documented as of this encounter Miscellaneous Notes * Telephone Encounter - Aisha Escamilla RN - 05/26/2022 11:00 AM CST Approved Eliquis per last f/u note. Pt to be on indefinite AC. ERSHIP COUNSELOR documented in this encounter Plan of Treatment Not on file documented as of this encounter Visit Diagnoses Diagnosis History of thrombophilia associated with MTHFR mutation documented in this encounter Additional Health Concerns Infection Onset Date Last Indicated Resolved Time COVID - 19 Confirmed 05/31/2022 05/31/2022 023 12:16 AM MEMBERSHIP COUNSELOR Respiratory Rule Out - RPA 02/26/2023 02/26/2023 0 02/26/2023 11:31 AM CDT COVID - 19 02/26/2023 02/26/2023 03/08/2023 12:1 6 AM CDT documented as of this encounter Care Teams Pickling Solution Maker Relationship Specialty Start Date End Date Jabier Peck MD #[address] [address] PCP - General Family Medicine 06/22/20 01/16/24 Tad Mcintosh MD [address] [place] [address] PCP - General Family Medicine 01/17/24 Srikanth Adrian MD #2 [facility] [address] [place] [address] Tools Developer Cardiovascular Disease - Cardiology 02/02/22 08/06/24 Gloria Martinez MD #2 [facility], [address] [address] Consulting Physician Urology 04/30/24 documented as of this encounter
--- OUTSIDE RECORDS SUMMARY | 2024-10-28 13:11 | XMS_ITS | Encounter Summary ---
Author Organization [facility] Address [address] [place] [address] Phone Care Team Providers Care Business Reporter Name Role Phone Jabier Peck MD Primary Care Provider [phone] Srikanth Adrian MD Unavailable Tad Romero MD Primary Care Provider [phone] Gloria Martinez MD Unavailable [phone] Reason for Visit * Reason Comments Medication Refill Encounter Details Date Type Department Care Team (Late st Contact Info) Description 08/01/2023 Refill [facility] #2 [place] [address] Jabier Peck MD #[address] [address] Medication Refill Social History Tobacco Use Types [...] CDT Gender Identity Male 05/03/2023 12:44 PM JELLY MAKER Sexual Orientation Lesbian or Wolff 05/03/2023 12 :44 PM JELLY MAKER documented as of this encounter Miscellaneous [...] Passed - Active short-acting beta agonist prescription Y MAKER documented in this encounter Plan of Treatment Not on file documented as of this encounter Visit Diagnoses Not on filedocumented in this encounter Care Teams Business Reporter Relationship Specialty Start Date End Date Jabier Peck MD #2 [facility] [address] [place] [address] PCP - General Family Medicine 06/22/20 01/16/24 Tad Mcintosh MD [address] [place] [address] PCP - General Family Medicine 01/17/24 Srikanth Adrian MD #2 [facility] [address] [place] [address] Electrophysiologist Cardiovascular Disease - Cardiology 02/02/22 08/06/24 Gloria Martinez MD #2 [facility] [address] [place] [address] Consulting Physician Urology 04/30/24 documented as of this encounter
--- OUTSIDE RECORDS SUMMARY | 2024-10-28 13:11 | XMS_ITS | Encounter Summary ---
Author Organization [facility] Address [address] [place] [address] Phone Care Team Providers Care Gear Cutting Machine Set Up Operator Name Role Phone Jabier Peck MD Primary Care Provider [phone] Srikanth Adrian MD Unavailable Tad Romero MD Primary Care Provider [phone] Gloria Martinez MD Unavailable [phone] Reason for Visit * Reason Comments Medication Refill Encounter Details Date Type Department Care Team (Late st Contact Info) Description 05/14/2023 Refill [facility] Medical Group - Family Medicine [facility] #2 [place] [address] Jabier Peck MD #[address] [address] Medication Refill Social History Tobacco Use Types [...] CDT Gender Identity Male 05/03/2023 12:44 PM WELDER METAL FAB Sexual Orientation Lesbian or Wolff 05/03/2023 12 :44 PM WELDER METAL FAB documented as of this encounter Miscellaneous Notes [...] 90 days and meeting all other requirements ER METAL FAB documented in this encounter Plan of Treatment Not on file documented as of this encounter Visit Diagnoses Not on filedocumented in this encounter Care Teams Gear Cutting Machine Set Up Operator Relationship Specialty Start Date End Date Jabier Peck MD #2 [facility] [address] [place] [address] PCP - General Family Medicine 06/22/20 01/16/24 Tad Mcintosh MD [address] [place] [address] PCP - General Family Medicine 01/17/24 Srikanth Adrian MD #2 [facility] [address] [place] [address] Shot Examiner Cardiovascular Disease - Cardiology 02/02/22 08/06/24 Gloria Martinez MD #2 [facility] [address] [place] [address] Consulting Physician Urology 04/30/24 documented as of this encounter
--- OUTSIDE RECORDS SUMMARY | 2024-10-28 13:11 | XMS_ITS | Encounter Summary ---
Author Organization [facility] Address [address] [place] [address] Phone Care Team Providers Care City Collector Name Role Phone Tad Mcintosh MD Primary Care Provider [phone] Gloria Martinez MD Unavailable [phone] Reason for Visit * Reason Comments Medication Refill Encounter Details Date Type Department Care Team (Late st Contact Info) Description 10/21/2024 Refill [facility] #2 [place] [address] Jabier Peck MD #[address] [address] Medication Refill Social History Tobacco Use Types [...] CDT Gender Identity Male 05/03/2023 12:44 PM INTERLOCKER Sexual Orientation Lesbian or Wolff 05/03/2023 12 :44 PM INTERLOCKER documented as of this encounter Miscellaneous Notes * Telephone Encounter - Francine Soto RN - 10/22/2024 9:04 AM CDT PCP: Tad Mcintosh MD documented in this encounter Plan of Treatment Not on file documented as of this encounter Visit Diagnoses Not on filedocumented in this encounter Care Teams City Collector Relationship Specialty Start Date End Date Tad Mcintosh MD [address] [place] [address] PCP - General Family Medicine 01/17/24 Gloria Martinez MD #[address] [address] Consulting Physician Urology 04/30/24 documented as of this encounter
--- OUTSIDE RECORDS SUMMARY | 2024-10-28 13:11 | XMS_ITS | Encounter Summary ---
Author Organization [facility] Address [address] [place] [address] Phone Care Team Providers Care Stone Setter Metal Optical Frames Name Role Phone Jabier Peck MD Primary Care Provider [phone] Srikanth Adrian MD Unavailable Tad Romero MD Primary Care Provider [phone] Gloria Martinez MD Unavailable [phone] Reason for Visit * Reason Comments Medication Refill Encounter Details Date Type Department Care Team (Late st Contact Info) Description 05/14/2022 Refill [facility] #2 [place] [address] Jabier Peck MD #[address] [address] Medication Refill Social History Tobacco Use Types [...] CDT Gender Identity Male 05/03/2023 12:44 PM MOLD REPAIRER Sexual Orientation Lesbian or Wolff 05/03/2023 12 :44 PM MOLD REPAIRER COVID-19 Exposure Response Date Recorded In the last 10 days, have yo u been in contact with someone who was confirmed or suspected to have Coronavirus/COVID-19? No / Unsure 05/10/2022 2:32 PM MOLD REPAIRER documented as of this encounter Miscellaneous Notes * Telephone Encounter - Anjali Hartley RN - 05/15/2022 9:34 AM MOLD REPAIRER PDMP 04/18/2022 #45, 15 day supply. Medication [...] 90 days and meeting all other requirements REPAIRER documented in this encounter Plan of Treatment Not on file documented as of this encounter Visit Diagnoses Diagnosis Cervical radiculopathy Brachial neuritis or radiculitis nos documented in this encounter Additional Health Concerns Infection Onset Date Last Indicated Resolved Time COVID - 19 Confirmed 05/31/2022 05/31/2022 023 12:16 AM MOLD REPAIRER Respiratory Rule Out - RPA 02/26/2023 02/26/2023 0 02/26/2023 11:31 AM CDT COVID - 19 02/26/2023 02/26/2023 03/08/2023 12:1 6 AM CDT documented as of this encounter Care Teams Stone Setter Metal Optical Frames Relationship Specialty Start Date End Date Jabier Peck MD #2 [facility] [address] [place] [address] PCP - General Family Medicine 06/22/20 01/16/24 Tad Mcintosh MD [address] [place] [address] PCP - General Family Medicine 01/17/24 Srikanth Adrian MD #2 [facility] [address] [place] [address] Manager Of Tires Sales Cardiovascular Disease - Cardiology 02/02/22 08/06/24 Gloria Martinez MD #2 [facility] [address] [place] [address] Consulting Physician Urology 04/30/24 documented as of this encounter
--- OUTSIDE RECORDS SUMMARY | 2024-10-28 13:11 | XMS_ITS | Encounter Summary ---
Author Organization [facility] Address [address] [place] [address] Phone Care Team Providers Care Ultrasonic Solderer Name Role Phone Jabier Peck MD Primary Care Provider [phone] Srikanth Adrian MD Unavailable Tad Romero MD Primary Care Provider [phone] Gloria Martinez MD Unavailable [phone] Reason for Visit * Reason Comments Medication Refill Encounter Details Date Type Department Care Team (Late st Contact Info) Description 03/29/2022 Refill [facility] #2 [place] [address] Jabier Peck MD #[address] [address] Medication Refill Social History Tobacco Use Types [...] CDT Gender Identity Male 05/03/2023 12:44 PM RULING TECHNICIAN Sexual Orientation Lesbian or Wolff 05/03/2023 12 :44 PM RULING TECHNICIAN COVID-19 Exposure Response Date Recorded In [...] 19 Confirmed 05/31/2022 05/31/2022 023 12:16 AM RULING TECHNICIAN Respiratory Rule Out - RPA 02/26/2023 02/26/2023 0 02/26/2023 11:31 AM CDT COVID - 19 02/26/2023 02/26/2023 03/08/2023 12:1 6 AM CDT documented as of this encounter Care Teams Ultrasonic Solderer Relationship Specialty Start Date End Date Jabier Peck MD #2 [facility] [address] [place] [address] PCP - General Family Medicine 06/22/20 01/16/24 Tad Mcintosh MD [address] [place] [address] PCP - General Family Medicine 01/17/24 Srikanth Adrian MD #2 [facility] [address] [place] [address] Personnel Monitor Cardiovascular Disease - Cardiology 02/02/22 08/06/24 Gloria Martinez MD #2 [facility] [address] [place] [address] Consulting Physician Urology 04/30/24 documented as of this encounter
--- OUTSIDE RECORDS SUMMARY | 2024-10-28 13:12 | XMS_ITS | Clinical Summary ---
Author Organization [facility] Address [address] [place] [address] Care Team Providers Care Pelt Grader Name Role Phone Tad Mcintosh DO Primary [...] 07/17/2024 Assessment & Plan (07/17/2024 1:09 PM DIVING FISHER): Continue increased hydration Avoid acidic foods and fluids for one more week Thrombophilia 01/25/2023 Palpitations 11/22/2022 Chest pain 07/31/2022 Essential hypertension 07/31/2022 Tongue lesion 04/28/2020 Assessment & Plan (06/26/2024 9:29 AM DIVING FISHER): Has pain medication prescribed by Manasa Cortes at [facility] will confirm use of Weston after surgery Stop Eliquis for 5 days before and after Excision of left lateral and right lateral tongue lesions with repair Risks and complications: Anesthesia, bleeding, infection, benign versus malignant pathology, recurrence of lesion, injury to arteries, nerves and veins, scarring and need for further treatment Assessment & Plan (04/28/2020 1:41 PM DIVING FISHER): Speak to [facility] about smoothing out right first [...] week Assessment & Plan (04/28/2020 1:41 PM DIVING FISHER): Speak to [facility] about smoothing out right first [...] (04/18/2019): Added automatically from request for surgery [id number] Hematochezia 03/04/2019 Overview (03/04/2019): Added automatically from request for surgery [id number] Family history of colon cancer 03/04/2019 Overview (03/04/2019): Added automatically from request for surgery [id number] 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 Juliette level is in process. Will hold at [...] recommended Assessment & Plan (07/08/2019 3:43 PM DIVING FISHER): Healthy, low carbohydrate lifestyle and exercise for [...] hydration Assessment & Plan (08/10/2017 1:23 PM DIVING FISHER): s/p Right inferior parathyroidectomy - 08/10/2016 pre [...] renal Assessment & Plan (05/01/2017 10:36 PM DIVING FISHER): s/p Right inferior parathyroidectomy - 08/10/2016 pre [...] future Assessment & Plan (08/10/2017 1:24 PM DIVING FISHER): Recheck levels Assessment & Plan (12/17/2016 8:01 AM CDT): Recheck levels Type 2 diabetes mellitus wit h stage 3 chronic kidney disease, with long-term current use of insulin 12/11/2016 Assessment & Plan (07/08/2019 3:42 PM DIVING FISHER): A1c 5.5% Jun 2019 on no medications. [...] needed. Assessment & Plan (08/10/2017 1:26 PM DIVING FISHER): - A1c today 5.5 % - due [...] months. Assessment & Plan (05/01/2017 10:36 PM DIVING FISHER): - reviewed BS log - BS well [...] Hyperlipidemia associated with type 2 diabetes ivett benson 08/09/2015 Overview (09/22/2016): Hyperlipidemia, unspecified hyperlipidemia type Assessment & Plan (09/25/2017 6:01 AM CDT): Continue aspirin and statin. Assessment & Plan (08/10/2017 1:23 PM DIVING FISHER): On statin therapy - advised to increase physical activity - advised low fat/chol diet and avoid greasy and junk food Assessment & Plan (05/01/2017 10:37 PM DIVING FISHER): On statin therapy - advised to increase [...] activity Assessment & Plan (08/10/2017 1:24 PM DIVING FISHER): BP well controlled, chronic At goal advised [...] f/u with him Explained the risk of extermination inspector MAK and encourage use of CPAP or [...] quit smoking so they can encourage you. Napper Fixer referral placed. Class 2 severe obesity due t o excess calories with serious comorbidity and body mass index (BMI) of 37.0 to 37.9 in adult 08/16/2012 Overview (09/22/2016): Obesity Assessment & Plan (12/25/2019 1:57 PM CDT): Healthy, low carbohydrate lifestyle and exercise for 150min/week recommended Referral for alarm mechanic placed. Assessment & Plan (10/16/2019 11:40 AM [...] greens, fat-free milk, cottage cheese, nuts like [id number], protein bars with 10-15 g of protein [...] discussed. Assessment & Plan (05/01/2017 10:37 PM DIVING FISHER): Obesity is improving with treatment. Discussed the [...] time. Assessment & Plan (05/01/2017 10:37 PM DIVING FISHER): Hypertension is improving with treatment. Continue current [...] kidney disease) stage 3, GFR 30-59 ml/min (HCC) Juliette poisoning Headache, tension-type Sleep apnea patient had [...] on file Legal Sex Male 5:22 PM DIVING FISHER Gender Identity Not on file Sexual Orientation Not on file Obstetrics History Last Filed Vital Signs Vital Sign Reading Time Taken Comments Blood Pressure 136/84 07/10/2024 4:54 PM DIVING FISHER Pulse 62 07/10/2024 4:54 PM DIVING FISHER Temperature 36.4 C (97.5 F) 07/10/2024 4:54 PM DIVING FISHER Respiratory Rate 16 07/10/2024 4:54 PM DIVING FISHER Oxygen Saturation 97% 07/10/2024 4:54 PM DIVING FISHER Inhaled Oxygen Concentration - - Weight 105.8 kg (233 lb 4 oz) 07/10/2024 10:09 A M DIVING FISHER Height 175.3 cm (5' 9 ) 07/10/2024 10:09 AM DIVING FISHER Body Mass Index 34.44 07/10/2024 10:09 AM DIVING FISHER Plan of Treatment Health Maintenance Due Date [...] 02/26/2029 02/26/2019 Medical Devices Implanted Type Area Well Logging Mud Analysis Captain Device Identifier Shelf Expiration Date Model / Serial / Lot Minube Angio-Seal Vip 6fr Closere Device [id number] - [id number] Implanted:Qty: 1 on 10/12/2022 by Eliel Ortiz MD at [facility] Other - see comments Minube 03/17/2023 [id number] / / [id number] [employer] [id number] 4mm 44mm Compression Headless Foot Ankle Screw Bone - [id number] Implanted:Qty: 1 on 04/25/2019 by Chidi Rios DPM at [facility] Right: Toes [employer] [id number] / / [employer] [place] Ezm 10-10-10 Easyclip Si 2mm 69y84w0.2-1.5mm Monocortical Superelastic Reamer - [id number] Implanted:Qty: 1 on 04/25/2019 by Chidi Rios DPM at [facility] Right: Toes [employer] [id number]|2024-10-28 13:11:00|2024-10-28 13:11:00|XMS_ITS|BKG DAEMON|External Medical Summaries|[id number]|" Encounter Summary Created on: October 28, 2024 Tae Kent Jr. : 1970 Sex: Male Author Organization [facility] Address [address] [place] [address] Phone Care Team Providers Care Pelt Grader Name Role Phone Jabier Peck MD Primary Care Provider [phone] Srikanth Adrian MD Unavailable Tad Romero MD Primary Care Provider [phone] Gloria Martinez MD Unavailable [phone] Reason for Visit * Reason Onset Date Comments Medication Refill 03/23/2021 Encounter Details Date Type Department Care Team (Late st Contact Info) Description 03/23/2021 Refill [facility] Medical [facility] - Family [facility] [address] [place] [address] Jabier Peck MD #[address] [address] Medication Refill Social History Tobacco Use Types [...] CDT Gender Identity Male 05/03/2023 12:44 PM DIVING FISHER Sexual Orientation Lesbian or Wolff 05/03/2023 12 :44 PM DIVING FISHER COVID-19 Exposure Response Date Recorded In the [...] Outpatient Visits 1 week ago Cervical radiculopathy [facility] Medical [facility] - Family Medicine - Kishore Alonso APN, MOLD FINISHER 4 months ago Dermatitis [facility] Family [facility] - Kishore Alonso APN, MOLD FINISHER 5 months ago Diet-controlled diabetes mellitus (HCC) [facility] - Jabier Aldridge MD 7 months ago Thrombophilia (HCC) [facility] - Kishore Alonso APN, RICHARD 7 months ago Obstructive sleep apnea syndrome [facility] - [facility] Morgan APN, MOLD FINISHER Upcoming Appointments Future Appointments Tomorrow [facility] RESP ROOM1 [facility] Respiratory Therapy, [facility] In 1 week Sofy Bowen, T[place] [facility] Rehab at [facility] In 2 weeks Jabier Peck MD [facility] Family Medicine [facility] In 1 month Aria Delong APN, INSECTICIDE SPRAYER [facility] Neurology [facility] In 5 months Jt Morillo MD [facility] - Cancer Center Oncology Services, [facility] PBX OPERATOR - Recent and Past Visits Recent Visits Date Type Provider Dept 03/16/21 Office Visit Kishore Prieto APN, RICHRAD [facility] 11/16/20 Office Visit Kishore Prieto APN, RICHARD [facility] 10/20/20 Office Visit Jabier Peck MD [facility] 08/20/20 Telemedicine Kishore Prieto APN, RICHARD [facility] 08/06/20 Telemedicine Kishore Prieto APN, RICHARD [facility] 06/22/20 Office Visit Kishore Prieto APN, IRCHARD [facility] [place] [facility] Showing recent visits within past 460 days with a meds authorizing provider and meeting all other requirements Future Appointments Date Type Provider Dept 04/08/21 Appointment Jabier Peck MD [facility] Showing future appointments within next 90 days [...] 19 Confirmed 05/31/2022 05/31/2022 023 12:16 AM DIVING FISHER Respiratory Rule Out - RPA 02/26/2023 02/26/2023 0 02/26/2023 11:31 AM CDT COVID - 19 02/26/2023 02/26/2023 03/08/2023 12:1 6 AM CDT documented as of this encounter Care Teams Pelt Grader Relationship Specialty Start Date End Date Jabier Peck MD #2 [facility] [address] [place] [address] PCP - General Family Medicine 06/22/20 01/16/24 Tad Mcintosh MD [address] [place] [address] PCP - General Family Medicine 01/17/24 Srikanth Adrian MD #2 [facility] [address] [place] [address] Tube Bender Cardiovascular Disease - Cardiology 02/02/22 08/06/24 Gloria Martinez MD #2 [facility] [place] [address] [place] [address] Consulting Physician Urology 04/30/24 documented as of this encounter "
--- OUTSIDE RECORDS SUMMARY | 2024-10-28 13:12 | XMS_ITS | Encounter Summary ---
Author Organization [facility] Address [address] [place] [address] Phone Care Team Providers Care Claim Approver Name Role Phone Jabier Peck MD Primary Care Provider [phone] Srikanth Adrian MD Unavailable Tad Romero MD Primary Care Provider [phone] Gloria Martinez MD Unavailable [phone] Reason for Visit * Reason Comments Medication Refill Encounter Details Date Type Department Care Team (Late st Contact Info) Description 10/24/2022 Refill [facility] #2 [place] [address] Jabier Peck MD #[address] [address] Medication Refill Social History Tobacco Use Types [...] CDT Gender Identity Male 05/03/2023 12:44 PM BENDING PRESS OPERATOR Sexual Orientation Lesbian or Wolff 05/03/2023 12 :44 PM BENDING PRESS OPERATOR documented as of this encounter Miscellaneous [...] Prieto APRN, RICHARD [facility] 12/13/21 Telemedicine Kishore Preito APRN, RICHARD [facility] Showing recent visits within past 365 [...] documented as of this encounter Care Teams Claim Approver Relationship Specialty Start Date End Date Jabier Peck MD #2 [facility] [address] [place] [address] PCP - General Family Medicine 06/22/20 01/16/24 Tad Mcintosh MD [address] [place] [address] PCP - General Family Medicine 01/17/24 Srikanth Adrian MD #2 [facility] [address] [place] [address] Supervisor Coil Winding Cardiovascular Disease - Cardiology 02/02/22 08/06/24 Gloria Martinez MD #2 [facility] [address] [place] [address] Consulting Physician Urology 04/30/24 documented as of this encounter
--- OUTSIDE RECORDS SUMMARY | 2024-10-28 13:12 | XMS_ITS | Encounter Summary ---
Author Organization [facility] Address [address] [place] [address] Phone Care Team Providers Care Aluminum Siding Applicator Name Role Phone Jabier Peck MD Primary Care Provider [phone] Srikanth Adrain MD Unavailable Tad Romero MD Primary Care Provider [phone] Gloria Martinez MD Unavailable [phone] Encounter Details Date Type Department Care Team (Late st Contact Info) Description 01/04/2023 Telephone [facility] Medical/Surgical 3 Surge Waiver [address] [place] [address] Jabier Peck MD #[address] [address] Social History Tobacco Use Types Packs/Day Years [...] CDT Gender Identity Male 05/03/2023 12:44 PM RISK ADVISOR Sexual Orientation Lesbian or Wolff 05/03/2023 12 :44 PM RISK ADVISOR documented as of this encounter Miscellaneous Notes [...] documented as of this encounter Care Teams Aluminum Siding Applicator Relationship Specialty Start Date End Date Jabier Peck MD #[address] [address] PCP - General Family Medicine 06/22/20 01/16/24 Tad Mcintosh MD [address] [place] [address] PCP - General Family Medicine 01/17/24 Srikanth Adrian MD #2 [facility] [address] [place] [address] Corporate Relations Manager Cardiovascular Disease - Cardiology 02/02/22 08/06/24 Gloria [facility] [address] [address] Consulting Physician Urology 04/30/24 documented as of this encounter
--- OUTSIDE RECORDS SUMMARY | 2024-10-28 13:12 | XMS_ITS | Referral Summary ---
Author Organization [facility] Address [address] [place] [address] Care Team Providers Care Chute Loader Name Role Phone Tad Mcintosh DO Primary [...] 07/17/2024 Assessment & Plan (07/17/2024 1:09 PM SOCIAL ORGANIZATION PROFESSOR): Continue increased hydration Avoid acidic foods and fluids for one more week Thrombophilia 01/25/2023 Palpitations 11/22/2022 Chest pain 07/31/2022 Essential hypertension 07/31/2022 Tongue lesion 04/28/2020 Assessment & Plan (06/26/2024 9:29 AM SOCIAL ORGANIZATION PROFESSOR): Has pain medication prescribed by Manasa Corets at [facility] will confirm use of [place] after surgery Stop Eliquis for 5 days before and after Excision of left lateral and right lateral tongue lesions with repair Risks and complications: Anesthesia, bleeding, infection, benign versus malignant pathology, recurrence of lesion, injury to arteries, nerves and veins, scarring and need for further treatment Assessment & Plan (04/28/2020 1:41 PM SOCIAL ORGANIZATION PROFESSOR): Speak to [facility] about smoothing out right first [...] week Assessment & Plan (04/28/2020 1:41 PM SOCIAL ORGANIZATION PROFESSOR): Speak to [facility] about smoothing out right first [...] (04/18/2019): Added automatically from request for surgery [id number] Hematochezia 03/04/2019 Overview (03/04/2019): Added automatically from request for surgery [id number] Family history of colon cancer 03/04/2019 Overview (03/04/2019): Added automatically from request for surgery [id number] 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 [place] level is in process. Will hold at [...] recommended Assessment & Plan (07/08/2019 3:43 PM SOCIAL ORGANIZATION PROFESSOR): Healthy, low carbohydrate lifestyle and exercise for [...] hydration Assessment & Plan (08/10/2017 1:23 PM SOCIAL ORGANIZATION PROFESSOR): s/p Right inferior parathyroidectomy - 08/10/2016 pre [...] renal Assessment & Plan (05/01/2017 10:36 PM SOCIAL ORGANIZATION PROFESSOR): s/p Right inferior parathyroidectomy - 08/10/2016 pre [...] future Assessment & Plan (08/10/2017 1:24 PM SOCIAL ORGANIZATION PROFESSOR): Recheck levels Assessment & Plan (12/17/2016 8:01 AM CDT): Recheck levels Type 2 diabetes mellitus wit h stage 3 chronic kidney disease, with long-term current use of insulin 12/11/2016 Assessment & Plan (07/08/2019 3:42 PM SOCIAL ORGANIZATION PROFESSOR): A1c 5.5% Jun 2019 on no medications. [...] needed. Assessment & Plan (08/10/2017 1:26 PM SOCIAL ORGANIZATION PROFESSOR): - A1c today 5.5 % - due [...] months. Assessment & Plan (05/01/2017 10:36 PM SOCIAL ORGANIZATION PROFESSOR): - reviewed BS log - BS well [...] statin. Assessment & Plan (08/10/2017 1:23 PM SOCIAL ORGANIZATION PROFESSOR): On statin therapy - advised to increase physical activity - advised low fat/chol diet and avoid greasy and junk food Assessment & Plan (05/01/2017 10:37 PM SOCIAL ORGANIZATION PROFESSOR): On statin therapy - advised to increase [...] activity Assessment & Plan (08/10/2017 1:24 PM SOCIAL ORGANIZATION PROFESSOR): BP well controlled, chronic At goal advised [...] f/u with him Explained the risk of assisted MAK and encourage use of CPAP or [...] quit smoking so they can encourage you. Fermenter Helper referral placed. Class 2 severe obesity due t o excess calories with serious comorbidity and body mass index (BMI) of 37.0 to 37.9 in adult 08/16/2012 Overview (09/22/2016): Obesity Assessment & Plan (12/25/2019 1:57 PM CDT): Healthy, low carbohydrate lifestyle and exercise for 150min/week recommended Referral for supervisor pyrotechnic loading placed. Assessment & Plan (10/16/2019 11:40 AM [...] greens, fat-free milk, cottage cheese, nuts like [id number], protein bars with 10-15 g of protein [...] discussed. Assessment & Plan (05/01/2017 10:37 PM SOCIAL ORGANIZATION PROFESSOR): Obesity is improving with treatment. Discussed the [...] time. Assessment & Plan (05/01/2017 10:37 PM SOCIAL ORGANIZATION PROFESSOR): Hypertension is improving with treatment. Continue current [...] on file Legal Sex Male 5:22 PM SOCIAL ORGANIZATION PROFESSOR Gender Identity Not on file Sexual Orientation Not on file Last Filed Vital Signs Vital Sign Reading Time Taken Comments Blood Pressure 136/84 07/10/2024 4:54 PM SOCIAL ORGANIZATION PROFESSOR Pulse 62 07/10/2024 4:54 PM SOCIAL ORGANIZATION PROFESSOR Temperature 36.4 C (97.5 F) 07/10/2024 4:54 PM SOCIAL ORGANIZATION PROFESSOR Respiratory Rate 16 07/10/2024 4:54 PM SOCIAL ORGANIZATION PROFESSOR Oxygen Saturation 97% 07/10/2024 4:54 PM SOCIAL ORGANIZATION PROFESSOR Inhaled Oxygen Concentration - - Weight 105.8 kg (233 lb 4 oz) 07/10/2024 10:09 A M SOCIAL ORGANIZATION PROFESSOR Height 175.3 cm (5' 9 ) 07/10/2024 10:09 AM SOCIAL ORGANIZATION PROFESSOR Body Mass Index 34.44 07/10/2024 10:09 AM SOCIAL ORGANIZATION PROFESSOR Plan of Treatment Not on file Medical Devices Implanted Type Area Head Waiter Device Identifier Shelf Expiration Date Model / Serial / Lot makerSQR Angio-Seal Vip 6fr Closere Device [id number] - [id number] Implanted:Qty: 1 on 10/12/2022 by Eliel Ortiz MD at [facility] Other - see comments makerSQR 03/17/2023 [id number] / / [id number] [employer] [id number] 4mm 44mm Compression Headless Foot Ankle Screw Bone - [id number] Implanted:Qty: 1 on 04/25/2019 by Chidi Rios DPM at [facility] Right: Toes [employer] [id number] / / [employer] [place] Ezm 03-27-10 Easyclip Si 2mm [id number] Monocortical Superelastic Reamer - [id number] Implanted:Qty: 1 on 04/25/2019 by Chidi Rios DPM at [facility] Right: Toes [employer] [place] 11/16/2023 [id number] 03-27-10 / / [id number] [employer] [place] Ezm -10-10 Easyclip Si 2mm [id number] Monocortical Superelastic Reamer - [id number] Implanted:Qty: 1 on 04/25/2019 by Chidi Rios DPM at [facility] Right: Toes [employer] [place] 11/16/2023 EZM -10-10 / / [id number] Toe Tac Xpress Hammertoe Fixation System Implanted:Qty: 2 on 04/25/2019 by Chidi Rios DPM at [facility] Right: Toes [employer] [id number] 05/27/2021 [id number] / [id number] [place] [employer] Implanted:Qty: 1 on 04/25/2019 by Chidi Rios DPM at [facility] Right: Toes [employer] 07/18/2028 [id number] / / [id number] Procedures Procedure Name Priority Date/Time Associated Diagnosis Comments EGFR STAT 04/19/2023 3:53 PM CDT HEMOGLOBIN A1C Routine 12/13/2019 2:55 PM CDT LIPID PANEL Routine 05/17/2018 2:25 PM SOCIAL ORGANIZATION PROFESSOR Type 2 diabetes mellitus with hyperglycemia, with long-term current use of insulin (HCC) from Last 3 Months or Most Recently Relevant to Health Maintenance Results * eGFR (04/19/2023 3:53 PM CDT) eGFR 51 mL/min/1. 73 m2 [facility] Comment: Interpretive Data Reference Interval Normal >/= [...] 3:53 PM CDT 04/19/2023 3:57 PM CDT us Eladio Denton MD LAB BLOOD ORDERABLE S Final Result [facility] ([place]) [facility] [place] [address] * (ABNORMAL) Hemoglobin A1c (12/13/2019 2:55 PM CDT) Blood specimen (specimen) 12/13/2019 2:55 PM CDT Narrative [facility] - 12/13/2019 2:55 PM CDT Results in labs us Aliza Provider LAB BLOOD ORDERABLES Becky cervantes Result Performing Organization Address City/[facility]/ZIP Co de Phone Number [id number]|2024-10-28 13:11:00|2024-10-28 13:11:00|XMS_ITS|BKG DAEMON|External Medical Summaries|[id number]|" Encounter Summary Created on: October 28, 2024 Tae Kent Jr. : 1970 Sex: Male Author Organization [facility] Address [address] [place] [address] Phone Care Team Providers Care Chute Loader Name Role Phone Srikanth Adrian MD Unavailable Tad Romero MD Primary Care Provider [phone] Gloria Martinez MD Unavailable [phone] Reason for Visit * Reason Comments Medication Refill Encounter Details Date Type Department Care Team (Late st Contact Info) Description 03/29/2024 Refill [facility] - [place] [address] [place] [address] Kishore Prieto APRN, PNEUMATIC JACKETER [address] [address] Medication Refill Social History Tobacco Use Types [...] CDT Gender Identity Male 05/03/2023 12:44 PM SOCIAL ORGANIZATION PROFESSOR Sexual Orientation Lesbian or Wolff 05/03/2023 12 :44 PM SOCIAL ORGANIZATION PROFESSOR documented as of this encounter Miscellaneous Notes * Telephone Encounter - Cristine Preston RN - 03/30/2024 1:22 PM CDT PCP: Tad Mcintosh MD documented in this encounter Plan of Treatment Not on file documented as of this encounter Visit Diagnoses Not on filedocumented in this encounter Care Teams Chute Loader Relationship Specialty Start Date End Date Tad Mcintosh MD [address] [place] [address] PCP - General Family Medicine 01/17/24 Srikanth Adrian MD Doughnut Icer Machine Cardiovascular Disease - Cardiology 02/02/22 08/06/24 Gloria Martinez MD #[address] [address] Consulting Physician Urology 04/30/24 documented as of this encounter "
--- OUTSIDE RECORDS SUMMARY | 2024-10-28 13:12 | XMS_ITS | Encounter Summary ---
Author Organization [facility] Address [address] [place] [address] Phone Care Team Providers Care Self Propelled Hot Mix Roller Operator Name Role Phone Jabier Peck MD Primary Care Provider [phone] Srikanth Adrian MD Unavailable Tad Romero MD Primary Care Provider [phone] Gloria Martinez MD Unavailable [phone] Reason for Visit * Reason Onset Date Comments Advice Only 12/18/2022 Encounter Details Date Type Department Care Team (Late st Contact Info) Description 12/18/2022 Telephone [facility] [address] [place] [address] Jabier Peck MD #[address] [address] Advice Only Social History Tobacco Use Types [...] CDT Gender Identity Male 05/03/2023 12:44 PM CONTAINER WASHER Sexual Orientation Lesbian or Wolff 05/03/2023 12 :44 PM CONTAINER WASHER documented as of this encounter Miscellaneous Notes * Telephone Encounter - Aurda Bowen RMA - 12/20/2022 1:23 PM CDT [...] documented as of this encounter Care Teams Self Propelled Hot Mix Roller Operator Relationship Specialty Start Date End Date Jabier Peck MD #[address] [address] PCP - General Family Medicine 06/22/20 01/16/24 Tad Mcintosh MD [address] [place] [address] PCP - General Family Medicine 01/17/24 Srikanth Adrian MD #[address] [address] Abrasive Coating Machine Operator Cardiovascular Disease - Cardiology 02/02/22 08/06/24 Gloria Martinez MD #[address] [facility], [address] [address] Consulting Physician Urology 04/30/24 documented as of this encounter
[2024-10-28 13:37] LABS: Alanine Aminotransferase 28 U/L (6-50); Albumin Level 3.9 g/dL (3.5-5.1); Alkaline Phosphatase 96 U/L (38-126); Anion Gap 6 mmol/L (4-12); Aspartate Amino Transferase 22 U/L (17-59); Bilirubin,Total 0.4 mg/dL (0.2-1.3); Blood Urea Nitrogen 15 mg/dL (9-20); Carbon Dioxide 21 mmol/L (22-30); Chloride 111 mmol/L (98-107); Estimated Glomerular Filt Rate 57; Glucose 266 mg/dL (65-110); Osmolality Calculated 295 mOsm/kg (285-295); Potassium 3.5 mmol/L (3.4-5.0); Sodium 138 mmol/L (137-145); Total Protein 6.2 g/dL (6.3-8.2)
== END 2024-10-28 13:00 | disposition home or self-care (01) ==
LOC: CHSLAB 13:01
PROVIDERS: PCP Family Medicine; Visit Provider Family Medicine
DX: I10 Essential (primary) hypertension (principal)
CPT/HCPCS: 36415; 80053

== ENCOUNTER 2025-01-10 15:47 | Emergency (ER) | payer MEDICARE, MEDICAID, SELFPAY ==
[2025-01-10] VITALS (14 sets, daily range): BP systolic 123–146; BP diastolic 78–98; PULSE 61–70; RESP 12–21; TEMP 36.5–36.8; O2SAT 95–99
--- NOTE | ~2025-01-10 | CT_ITS ---
EXAMINATION: CT brain wo con DATE: 01/10/2025 16:06 INDICATION: possible stroke/ numbness in Lt. arm . TECHNIQUE: Computed tomography (CT) of the head was performed without intravenous contrast. The mA wa s adjusted according to patient size. Iterative reconstruction technique was employed. The dose-lengt h product was 681.00 mGy-cm. COMPARISON: MRI brain 10/25/2024. FINDINGS: No acute intracranial hemorrhage or extra-axial fluid collection. No hydrocephalus, mass, or herniation. No acute ischemic infarct. Unremarkable dural venous sinus attenuation. No acute osseous abnormality. The aerated spaces are clear. Mild chronic atrophy and chronic white matter change. Atherosclerotic intracranial calcifications. IMPRESSION: No acute intracranial process. Results reported telephonically to Dr. Willams by Dr. Romero at 4:11 PM on 01/10/2025. Reviewed, dictated and finalized at location K. IMPRESSION: No acute intracranial process. Results reported telephonically to Dr. Willams by Dr. Romero at 4:11 PM on 01/10.
--- OUTSIDE RECORDS SUMMARY | 2025-01-10 15:49 | XMS_ITS | Encounter Summary ---
Author Organization [facility] Address [address] [place] [address] Phone Care Team Providers Care Machine Milker Name Role Phone Jabier Peck MD Primary Care Provider [phone] Srikanth Adrian MD Unavailable Tad Romero MD Primary Care Provider [phone] Gloria Martinez MD Unavailable [phone] Reason for Visit * Reason Comments Medication Refill Encounter Details Date Type Department Care Team (Late st Contact Info) Description 07/22/2021 Refill [facility] Oncology Services [address] [place] [id number] Jt Morillo MD [address] [place] [address] Medication Refill Social History Tobacco Use Types [...] CDT Gender Identity Male 05/03/2023 12:44 PM TABLEAU ARCHITECT Sexual Orientation Lesbian or Wolff 05/03/2023 12 :44 PM TABLEAU ARCHITECT COVID-19 Exposure Response Date Recorded In the last month, have you been in contact with someone who was confirmed or suspected to have Coronavirus / COVID-19? No / Unsure 07/14/2021 12:17 PM TABLEAU ARCHITECT documented as of this encounter Miscellaneous Notes * Telephone Encounter - Michelle Wharton RN - 07/22/2021 2:26 PM TABLEAU ARCHITECT Refilled Eliquis EAU ARCHITECT documented in this encounter Plan of Treatment Not on file documented as of this encounter Visit Diagnoses Diagnosis History of thrombophilia associated with MTHFR mutation documented in this encounter Additional Health Concerns Infection Onset Date Last Indicated Resolved Time COVID - 19 Confirmed 05/31/2022 05/31/2022 023 12:16 AM TABLEAU ARCHITECT Respiratory Rule Out - RPA 02/26/2023 02/26/2023 0 02/26/2023 11:31 AM CDT COVID - 19 02/26/2023 02/26/2023 03/08/2023 12:1 6 AM CDT documented as of this encounter Care Teams Machine Milker Relationship Specialty Start Date End Date Jabier Peck MD #2 [facility] [address] [place] [address] PCP - General Family Medicine 06/22/20 01/16/24 Tad Mcintosh MD [address] [place] [address] PCP - General Family Medicine 01/17/24 Srikanth Adrian MD #2 [facility] [address] [place] [address] Senior Data Developer Cardiovascular Disease - Cardiology 02/02/22 08/06/24 Gloria Martinez MD #2 [facility] [address] [place] [address] Consulting Physician Urology 04/30/24 documented as of this encounter
--- OUTSIDE RECORDS SUMMARY | 2025-01-10 15:49 | XMS_ITS | Encounter Summary ---
Author Organization [facility] Address [address] [place] [address] Phone Care Team Providers Care Power Wheelchair Mechanic Name Role Phone Jabier Kwok MD Primary Care Provider [phone] Srikanth Adrian MD Unavailable Tad Romero MD Primary Care Provider [phone] Gloria Martinez MD Unavailable [phone] Reason for Visit * Reason Comments Medication Refill Encounter Details Date Type Department Care Team (Late st Contact Info) Description 01/23/2022 [facility]ill [facility] [address] [place] [address] Jabier Kwok MD #[address] [address] Medication Refill Social History Tobacco Use Types [...] CDT Gender Identity Male 05/03/2023 12:44 PM DEPUTY CONTROLLER Sexual Orientation Lesbian or Wolff 05/03/2023 12 :44 PM DEPUTY CONTROLLER COVID-19 Exposure Response Date Recorded In the [...] 19 Confirmed 05/31/2022 05/31/2022 023 12:16 AM DEPUTY CONTROLLER Respiratory Rule Out - RPA 02/26/2023 02/26/2023 0 02/26/2023 11:31 AM CDT COVID - 19 02/26/2023 02/26/2023 03/08/2023 12:1 6 AM CDT documented as of this encounter Care Teams Power Wheelchair Mechanic Relationship Specialty Start Date End Date Jabier Kwok MD #[address] [address] PCP - General Family Medicine 06/22/20 01/16/24 Tad Mcintosh MD [address] [place] [address] PCP - General Family Medicine 01/17/24 Srikanth Adrian MD #2 [facility] [address] [place] [address] Economic Developer Cardiovascular Disease - Cardiology 02/02/22 08/06/24 Gloria Martinez MD #2 [facility] [address] [place] [address] Consulting Physician Urology 04/30/24 documented as of this encounter
--- OUTSIDE RECORDS SUMMARY | 2025-01-10 15:49 | XMS_ITS ---
Author Name ABBY BUTLER Address [address] [place] [address] Phone [facility] Address [address] [place] [address] Phone Care Team Providers Care Tanning Solution Maker Name Role Phone ABBY BUTLER Unavailable [phone] ALLERGIES, ADVERSE REACTIONS AND ALERTS Allergy Name Allergy Date Allergy Status Allergy Severity Allergy Reaction NO KNOWN DRUG ALLERGIES PROBLEMS Problem Code Problem Description Problem Status Problem Da te Problem End Date 851327868-Qklrhdggtzh tract congestion and cough Respiratory tract congestion and cough Current 04/28/2022 [id number]-Etlphmg disorder Bipolar disorder Chronic 04/28/2022 [id number]-Txbtustmj emphysema Pulmonary emphysema Chronic 04/28/2022 [id number]-Hxiqzs disease Kidney disease Chronic 04/28/2022 24860825-Vcamggfm mellitus Diabetes mellitus Chronic 04/28/2022 [id number]-Eigomd Asthma Chronic 04/28/2022 [id number]-Ukxddvnlqfr sleep apnea syndrome Obstructive sleep apnea syndrome [...] Encounter Type Provider Diagnoses Start Date Location Disc harged to None SOCIAL HISTORY Social Status Observation Unknown if ever smoked Sex: Male CARE TEAM INFORMATION Tanning Solution Maker Provider ID Role Location Phone ABBY BUTLER [id number] NURSE PRACTITIONER [address] [place] [address] INSURANCE PROVIDERS Payer Name Policy type / Coverage type Covered libertarian ID Policy [place] Medicaid [id number] SELF [facility] MEDICARE ADVANTAGE Private Health Insurance [id number] SELF
--- OUTSIDE RECORDS SUMMARY | 2025-01-10 15:49 | XMS_ITS | Encounter Summary ---
Author Organization [facility] Address [address] [place] [address] Phone Care Team Providers Care Stripper Soft Plastic Name Role Phone Jabier Peck MD Primary Care Provider [phone] Srikanth Adrian MD Unavailable Tad Romero MD Primary Care Provider [phone] Gloria Martinez MD Unavailable [phone] Reason for Visit * Reason Comments Medication Refill Encounter Details Date Type Department Care Team (Late st Contact Info) Description 09/22/2021 Refill [facility] [address] [place] [address] Jabier Peck MD #[address] [address] Medication Refill Social History Tobacco Use Types [...] Gender Identity Male 05/03/2023 12:44 PM SALES SUPPORT ADMINISTRATOR Sexual Orientation Lesbian or Wolff 05/03/2023 12 :44 PM SALES SUPPORT ADMINISTRATOR COVID-19 Exposure Response Date Recorded In the [...] 19 Confirmed 05/31/2022 05/31/2022 023 12:16 AM SALES SUPPORT ADMINISTRATOR Respiratory Rule Out - RPA 02/26/2023 02/26/2023 0 02/26/2023 11:31 AM CDT COVID - 19 02/26/2023 02/26/2023 03/08/2023 12:1 6 AM CDT documented as of this encounter Care Teams Stripper Soft Plastic Relationship Specialty Start Date End Date Jabier Peck MD #2 [facility] [address] [place] [address] PCP - General Family Medicine 06/22/20 01/16/24 Tad Mcintosh MD [address] [place] [address] PCP - General Family Medicine 01/17/24 Srikanth Adrian MD #2 [facility] [address] [place] [address] Payroll Lead Cardiovascular Disease - Cardiology 02/02/22 08/06/24 Gloria Martinez MD #2 [facility] [address] [place] [address] Consulting Physician Urology 04/30/24 documented as of this encounter
--- OUTSIDE RECORDS SUMMARY | 2025-01-10 15:49 | XMS_ITS | Encounter Summary ---
Author Organization [facility] Address [address] [place] [address] Phone Care Team Providers Care Waste Machine Operator Name Role Phone Jabier Peck MD Primary Care Provider [phone] Srikanth Adrian MD Unavailable Tad Romero MD Primary Care Provider [phone] Gloria Martinez MD Unavailable [phone] Reason for Visit * Reason Comments Medication Refill Encounter Details Date Type Department Care Team (Late st Contact Info) Description 02/22/2022 Refill [facility] [address] [place] [address] Jabier Peck MD #[address] [address] Medication Refill Social History Tobacco Use Types [...] CDT Gender Identity Male 05/03/2023 12:44 PM PSYCH NURSE Sexual Orientation Lesbian or Wolff 05/03/2023 12 :44 PM PSYCH NURSE COVID-19 Exposure Response Date Recorded In the [...] 19 Confirmed 05/31/2022 05/31/2022 023 12:16 AM PSYCH NURSE Respiratory Rule Out - RPA 02/26/2023 02/26/2023 0 02/26/2023 11:31 AM CDT COVID - 19 02/26/2023 02/26/2023 03/08/2023 12:1 6 AM CDT documented as of this encounter Care Teams Waste Machine Operator Relationship Specialty Start Date End Date Jabier Peck MD #2 [facility] [address] [place] [address] PCP - General Family Medicine 06/22/20 01/16/24 Tad Mcintosh MD [address] [place] [address] PCP - General Family Medicine 01/17/24 Srikanth Adrian MD #2 [facility] [address] [place] [address] Public Utilities Sales Representative Cardiovascular Disease - Cardiology 02/02/22 08/06/24 Gloria Martinez MD #2 [facility] [address] [place] [address] Consulting Physician Urology 04/30/24 documented as of this encounter
--- OUTSIDE RECORDS SUMMARY | 2025-01-10 15:49 | XMS_ITS | Clinical Summary ---
Author Organization [facility] Address [address] [address] Phone Care Team Providers Care Teacher Asst Name Role Phone Tad Mcintosh MD Primary Care Provider Gloria Martinez MD Unavailable [phone] Allergies Active Allergy Reactions Criticality Noted Date [...] Type Department Care Team Description [facility] [place] [address] Jabier Peck MD Medication Refill 10/20/2024 [facility] [place] [address] Jabier Peck MD Medication Refill from Last [...] CDT Gender Identity Male 05/03/2023 12:44 PM HEAD OF QUALITY Sexual Orientation Lesbian or Wolff 05/03/2023 12 :44 PM HEAD OF QUALITY Last Filed Vital Signs Vital Sign Reading Time Taken Comments Blood Pressure 129/82 03/11/2024 2:22 PM CDT Pulse 71 03/11/2024 2:22 PM CDT Temperature 36.5 C (97.7 F) 05/11/2023 1:15 PM HEAD OF QUALITY Respiratory Rate 18 03/11/2024 2:22 PM CDT Oxygen Saturation 98% 03/11/2024 2:22 PM CDT Inhaled Oxygen Concentration - - Weight 99.8 kg (220 lb) 03/11/2024 2:22 PM CDT Height 175.3 cm (5' 9) 03/11/2024 2:22 PM CDT Body Mass Index 32.49 03/11/2024 2:22 PM CDT Plan of Treatment Health Maintenance Due Date Last Done Comments Diabetes: Eye Exam 1969 Hepatitis B Immunization (1 of 3 - 19+ 3-dose series) 02/10/1988 Cologuard 2014 Immunochemical Fecal Occult Blood 2014 Zoster Immunization (1 of 2) 2019 Pneumococcal Immunization (50+ years) (2 of 2 - PCV) 06/22/2021 06/22/2020 Diabetes: Foot Exam 08/18/2022 08/18/2021 Diabetes: Hemoglobin A1c 08/27/2023 023, 08/21/2022, 03/03/2022, Additional history exists SARS-COV-2 Immunization ( season) 2024 05/30/2021, 09/11/2020, 08/21/2020 Diabetes: Nephropathy Screening 02/27/2024 02/26/2023, 08/21/2022, 03/03/2022, Additional history exists Influenza Immunization (#1) 02/16/202504/19, 02/24/2022, 08/01/2021, Additional history exists Colonoscopy 10/06/2025 10/06/2020 Colorectal Cancer Screening 10/06/2025 Td Immunization Every 10 Years (Adults With 1 Tdap) 02/26/2029 02/26/2019, 02/26/2019 Respiratory Syncytial Virus (RSV) Immunization (Adult) (1 - 1-dose 75+ series) 02/10/2044 DTaP/Tdap/Td Immunization Discontinued 02/26/2019, 04/2019 Pneumococcal Immunization [...] CHEST SCREENING WO Routine 05/10/2022 2:52 PM HEAD OF QUALITY Personal history of nicotine dependence PODIATRY CONSULT 08/18/2021 12:0 0 AM HEAD OF QUALITY from Last 3 Months or Most Recently Relevant to Health Maintenance Results * (ABNORMAL) HEMOGLOBIN A1C W/ ESTIMATED GLUCOSE (02/26/2023 12:32 PM CDT) Pathologist [facility] HGB-A1C 7.1(H) 4.0 - 6.0 % 02/26/2023 1:18 PM CDT [facility] Est Average Glucose 157.1 mg/dL 02/26/2023 1:18 PM CDT [facility] Blood Venipuncture / Unknown 02/26/2023 12:32 PM CDT 02/26/2023 12:58 PM CDT Narrative [facility] - 02/26/2023 1:18 PM CDT HEMOGLOBIN A1C: DIABETIC PATIENTS: WELL-CONTROLLED: 6.2 - 7.0 INTERMEDIATE WELL-CONTROLLED: 7.0 - 9.0 POORLY-CONTROLLED: >9.0 us Kishore Prieto APRN, ROLL UP MACHINE OPERATOR CHEMISTRY ORDERA BLES Final Result [facility] #[address] [place] [address] * PSA SCREEN (02/26/2023 12:32 PM CDT) Pathologist [facility] PSA SCREEN, TOTAL 0.60 <4.00 ng/mL 02/26/2023 1:45 PM CDT [facility] Blood Venipuncture / Unknown 02/26/2023 12:32 PM CDT 02/26/2023 12:57 PM CDT Narrative [facility] - 02/26/2023 1:45 PM CDT The RETAIL PERFORMANCE SPECIALIST Total PSA assay is a Chemiluminescent Microparticle Immunoassay (CMIA) for the quantitative determination of total PSA (both free PSA and PSA complexed to [id number]) in human serum. us Kishore Prieto APRN, CNP CHEMISTRY ORDERA BLES Final Result [facility] [address] [place] [address] * (ABNORMAL) CMP (COMPREHENSIVE METABOLIC PANEL) (02/26/2023 12:32 PM CDT) SODIUM 140 136 - 145 mmol/L 02/26/2023 1:22 PM CDT [facility] POTASSIUM 3.8 3.5 - 5.1 mmol/L 02/26/2023 1:22 PM CDT [facility] CHLORIDE 106 98 - 107 mmol/L 02/26/2023 1:22 PM CDT [facility] CO2, VENOUS 25 22 - 30 mmol/L 02/26/2023 1:22 PM CDT [facility] ANION GAP 12.8 <18.0 mmol/L 02/26/2023 1:22 PM CDT [facility] GLUCOSE 141(H) 70 - 99 mg/dL 02/26/2023 1:22 PM CDT [facility] BUN 17 8 - 26 mg/dL 02/26/2023 1:22 PM CDT [facility] CREATININE, BLOOD 1.49(H) 0.70 - 1.30 mg/dL 02/26/2023 1:22 PM CDT [facility] BUN/CREATININE RATIO 11(L) 12 - 20 ratio 02/26/2023 1:22 PM CDT [facility] TOTAL PROTEIN 6.7 6.3 - 8.2 g/dL 02/26/2023 1:22 PM CDT [facility] ALBUMIN 3.8 3.5 - 5.0 g/dL 02/26/2023 1:22 PM CDT [facility] A/G RATIO 1.3 1.0 - 2.2 02/26/2023 1:22 PM CDT [facility] CALCIUM 9.3 8.7 - 10.5 mg/dL 02/26/2023 1:22 PM CDT [facility] T BILI 0.4 0.2 - 1.2 mg/dL 02/26/2023 1:22 PM CDT [facility] SGOT (AST) 20 5 - 34 U/L 02/26/2023 1:22 PM CDT [facility] SGPT (ALT) 37 0 - 55 U/L 02/26/2023 1:22 PM CDT [facility] ALKALINE PHOSPHATASE 102 40 - 150 U/L 02/26/2023 1:22 PM CDT [facility] IS THE PATIENT REQUIRED TO BE FASTING? No 02/26/2023 1:22 PM CDT [facility] GFR, ESTIMATED 55(L) >=60 02/26/2023 1:22 PM CDT [facility] Comment: Creatinine Clearance is the preferred criteria for selecting drug dose adjustments in renally impaired patients. The GFR is provided as additional pertinent clinical information. GFR is reported in mL/min/1.73 sq m. Calculation based on the Chronic Kidney Disease Epidemiology Collaboration (CKD- EPI) equation refit without adjustment for race. GFR, EST. 60 >=60 023 1:22 PM CDT [facility] GFR, EST. NONAFRICAN 49(L) >=60 02/26/2023 1:22 PM CDT [facility] Blood Venipuncture / Unknown 02/26/2023 12:32 PM CDT 02/26/2023 12:57 PM CDT us Kishore Prieto PICKLING SOLUTION MAKER, ROLL UP MACHINE OPERATOR CHEMISTRY ORDERA BLES Final Result [facility]1 [facility] [place] [address] * CT CHEST SCREENING WO (05/10/2022 2:52 PM HEAD OF QUALITY) Anatomical Region Laterality Modality Chest N/A Computed Tomogra phy 05/12/2022 9:10 AM HEAD OF QUALITY Impressions 05/12/2022 9:13 AM HEAD OF QUALITY IMPRESSION: 1. Background of mild pulmonary emphysema. 2. Scattered tiny bilateral pulmonary nodules. No suspicious nodularity. 3. Mild coronary artery calcifications. 4. Additional findings as above. Lung-RADS v1.1 category 2: Benign appearance or behavior. Recommendation: Low dose CT of chest in 12 months. Narrative 05/12/2022 9:13 AM HEAD OF QUALITY EXAM DESCRIPTION: CT CHEST SCREENING WO REASON [...] Electronically signed by Mallorie Gomez M.D. TW: Report ID: [id number] Reading Location: [place] [address] Procedure Note Mallorie Gomez MD - 05/12/2022 [...] Mallorie Gomez M.D. TW: TW Report ID: [id number] Reading Location: [id number] IMPRESSION: 1. Background of mild pulmonary emphysema. 2. Scattered tiny bilateral pulmonary nodules. No suspicious nodularity. 3. Mild coronary artery calcifications. 4. Additional findings as above. Lung-RADS v1.1 category 2: Benign appearance or behavior. Recommendation: Low dose CT of chest in 12 months. us Kishore Prieto APRN, RICHARD IMG CT ORDERABLE S Final Result * PODIATRY CONSULT (08/18/2021 12:00 AM HEAD OF QUALITY) 08/18/2021 us Not On File Provider GENERIC [...] measures to stabilize the patient. Care Teams Teacher Asst Relationship Specialty Start Date End Date Tad Mcintosh MD [address] [place] [address] PCP - General Family Medicine 01/17/24 Gloria Martinez MD #[address] [address] Consulting Physician Urology 04/30/24
--- OUTSIDE RECORDS SUMMARY | 2025-01-10 15:49 | XMS_ITS | Encounter Summary ---
Author Organization [facility] Address [address] [place] [address] Phone Care Team Providers Care Cartographic Drafter Name Role Phone Jabier Peck MD Primary Care Provider [phone] Srikanth Adrian MD Unavailable Tad Romero MD Primary Care Provider [phone] Gloria Martinez MD Unavailable [phone] Reason for Visit * Reason Comments Medication Refill Encounter Details Date Type Department Care Team (Late st Contact Info) Description 02/24/2022 Refill [facility] #2 [place] [address] Jabier Peck MD #[address] [address] Medication Refill Social History Tobacco Use Types [...] CDT Gender Identity Male 05/03/2023 12:44 PM MEDICAL HISTORIAN Sexual Orientation Lesbian or Wolff 05/03/2023 12 :44 PM MEDICAL HISTORIAN COVID-19 Exposure Response Date Recorded In the [...] MD [facility] 03/16/21 Office Visit Kishore Preito APRN, RICHARD [facility] [place] Showing recent visits within past 365 [...] 19 Confirmed 05/31/2022 05/31/2022 023 12:16 AM MEDICAL HISTORIAN Respiratory Rule Out - RPA 02/26/2023 02/26/2023 0 02/26/2023 11:31 AM CDT COVID - 19 02/26/2023 02/26/2023 03/08/2023 12:1 6 AM CDT documented as of this encounter Care Teams Cartographic Drafter Relationship Specialty Start Date End Date Jabier Peck MD #2 [facility] [address] [place] [address] PCP - General Family Medicine 06/22/20 01/16/24 Tad Mcintosh MD [address] [place] [address] PCP - General Family Medicine 01/17/24 Srikanth Adrian MD #2 [facility] [address] [place] [address] Premium Card Cancellation Clerk Cardiovascular Disease - Cardiology 02/02/22 08/06/24 Gloria Martinez MD #2 [facility] [address] [place] [address] Consulting Physician Urology 04/30/24 documented as of this encounter
--- OUTSIDE RECORDS SUMMARY | 2025-01-10 15:49 | XMS_ITS | Encounter Summary ---
Author Organization [facility] Address [address] [place] [address] Phone Care Team Providers Care Event Av Operator Name Role Phone Jabier Peck MD Primary Care Provider [phone] Srikanth Adrian MD Unavailable Tad Romero MD Primary Care Provider [phone] Gloria Martinez MD Unavailable [phone] Reason for Visit * Reason Onset Date Comments Medication Refill 10/27/2021 Encounter Details Date Type Department Care Team (Late st Contact Info) Description 10/27/2021 Refill [facility] - Family Medicine [facility] #2 [place] [address] Jabier Peck MD #[address] [address] Medication Refill Social History Tobacco Use Types [...] CDT Gender Identity Male 05/03/2023 12:44 PM ELECTROMECHANICAL TECHNICIAN Sexual Orientation Lesbian or Wolff 05/03/2023 12 :44 PM ELECTROMECHANICAL TECHNICIAN documented as of this encounter Miscellaneous [...] 19 Confirmed 05/31/2022 05/31/2022 023 12:16 AM ELECTROMECHANICAL TECHNICIAN Respiratory Rule Out - RPA 02/26/2023 02/26/2023 0 02/26/2023 11:31 AM CDT COVID - 19 02/26/2023 02/26/2023 03/08/2023 12:1 6 AM CDT documented as of this encounter Care Teams Event Av Operator Relationship Specialty Start Date End Date Jabier Peck MD #2 [facility] [address] [place] [address] PCP - General Family Medicine 06/22/20 01/16/24 Tad Mcintosh MD [address] [place] [address] PCP - General Family Medicine 01/17/24 Srikanth Adrian MD #2 [facility] [address] [place] [address] Striping Machine Operator Cardiovascular Disease - Cardiology 02/02/22 08/06/24 Gloria Martinez MD #2 [facility] [address] [place] [address] Consulting Physician Urology 04/30/24 documented as of this encounter
--- OUTSIDE RECORDS SUMMARY | 2025-01-10 15:49 | XMS_ITS | Encounter Summary ---
Author Organization [facility] Address [address] [place] [address] [place] [address] Phone Care Team Providers Care Ampoule Filler And Sealer Name Role Phone Srikanth Adrian MD Unavailable Tad Romero MD Primary Care Provider [phone] Gloria Martinez MD Unavailable [phone] Reason for Visit * Reason Comments Medication Refill Encounter Details Date Type Department Care Team (Late Contact Info) Description 07/03/2024 Refill [facility] #2 [place] [address] Jabier Peck MD #[address] [address] Medication Refill Social History Tobacco Use Types [...] CDT Gender Identity Male 05/03/2023 12:44 PM WAREHOUSE EXAMINER Sexual Orientation Lesbian or Wolff 05/03/2023 12 :44 PM WAREHOUSE EXAMINER documented as of this encounter Miscellaneous Notes * Telephone Encounter - Francine Soto RN - 07/04/2024 8:54 AM CST PCP: Tad Mcintosh MD HOUSE EXAMINER documented in this encounter Plan of Treatment Not on file documented as of this encounter Visit Diagnoses Not on filedocumented in this encounter Care Teams Ampoule Filler And Sealer Relationship Specialty Start Date End Date Tad Mcintosh MD [address] [place] [address] PCP - General Family Medicine 01/17/24 Srikanth Adrian MD Neurosurgical Nurse Practitioner Cardiovascular Disease - Cardiology 02/02/22 08/06/24 Gloria Martinez MD #[address] [address] Consulting Physician Urology 04/30/24 documented as of this encounter
--- OUTSIDE RECORDS SUMMARY | 2025-01-10 15:49 | XMS_ITS | Encounter Summary ---
Author Organization [facility] Address [address] [place] [address] Phone Care Team Providers Care Expressive Art Therapist Name Role Phone Jabier Peck MD Primary Care Provider [phone] Srikanth Adrian MD Unavailable Tad Romero MD Primary Care Provider [phone] Gloria Martinez MD Unavailable [phone] Reason for Visit * Reason Comments Medication Refill Encounter Details Date Type Department Care Team (Late st Contact Info) Description 10/21/2021 Refill [facility] #2 [place] [address] Jabier Peck MD #[address] [address] Medication Refill Social History Tobacco Use Types [...] Gender Identity Male 05/03/2023 12:44 PM DIRECTOR DISTRIBUTION Sexual Orientation Lesbian or Wolff 05/03/2023 12 :44 PM DIRECTOR DISTRIBUTION documented as of this encounter Miscellaneous Notes [...] 19 Confirmed 05/31/2022 05/31/202206/20/ 023 12:16 AM DIRECTOR DISTRIBUTION Respiratory Rule Out - RPA 02/26/2023 02/26/2023 0 02/26/2023 11:31 AM CDT COVID - 19 02/26/2023 02/26/2023 03/08/2023 12:1 6 AM CDT documented as of this encounter Care Teams Expressive Art Therapist Relationship Specialty Start Date End Date Jabier Peck MD #2 [facility] [address] [place] [address] PCP - General Family Medicine 06/22/20 01/16/24 Tad Mcintosh MD [address] [place] [address] PCP - General Family Medicine 01/17/24 Srikanth Adrian MD #2 [facility] [address] [place] [address] Webbing Inspector Cardiovascular Disease - Cardiology 02/02/22 08/06/24 Gloria Martinez MD #2 [facility] [address] [place] [address] Consulting Physician Urology 04/30/24 documented as of this encounter
--- OUTSIDE RECORDS SUMMARY | 2025-01-10 15:49 | XMS_ITS | Encounter Summary ---
Author Organization [facility] Address [address] [place] [address] Phone Care Team Providers Care Retail Pos Specialist Name Role Phone Srikanth Adrian MD Unavailable Tad Romero MD Primary Care Provider [phone] Gloria Martinez MD Unavailable [phone] Reason for Visit * Reason Comments Medication Refill Encounter Details Date Type Department Care Team (Late Contact Info) Description 05/28/2024 Refill [facility] - Family Medicine [facility] #2 [place] [address] Jabier Peck MD #[address] [address] Medication Refill Social History Tobacco Use Types [...] CDT Gender Identity Male 05/03/2023 12:44 PM SURVEILLANCE OPERATOR Sexual Orientation Lesbian or Wolff 05/03/2023 12 :44 PM SURVEILLANCE OPERATOR documented as of this encounter Miscellaneous Notes * Telephone Encounter - Francine Soto RN - 05/28/2024 11:10 AM CST PCP: Tad Mcintosh MD EILLANCE OPERATOR documented in this encounter Plan of Treatment Not on file documented as of this encounter Visit Diagnoses Not on filedocumented in this encounter Care Teams Retail Pos Specialist Relationship Specialty Start Date End Date Tad Mcintosh MD [address] [place] [address] PCP - General Family Medicine 01/17/24 Srikanth Adrian MD Speech Communication Professor Cardiovascular Disease - Cardiology 02/02/22 08/06/24 Gloria Martinez MD #[address] [address] Consulting Physician Urology 04/30/24 documented as of this encounter
--- OUTSIDE RECORDS SUMMARY | 2025-01-10 15:49 | XMS_ITS | Encounter Summary ---
Author Organization [facility] Address [address] [place] [address] Phone Care Team Providers Care Brass Pickler Name Role Phone Jabier Peck MD Primary Care Provider [phone] Srikanth Adrian MD Unavailable Tad Romero MD Primary Care Provider [phone] Gloria Martinez MD Unavailable [phone] Reason for Visit * Reason Comments Medication Refill Encounter Details Date Type Department Care Team (Late st Contact Info) Description 06/16/2021 Refill [facility] - Family [facility] #2 [place] [address] Jabier Peck MD #[address] [address] Medication Refill Social History Tobacco Use Types [...] CDT Gender Identity Male 05/03/2023 12:44 PM SPOILAGE WORKER Sexual Orientation Lesbian or Wolff 05/03/2023 12 :44 PM SPOILAGE WORKER COVID-19 Exposure Response Date Recorded In the last month, have you been in contact with someone who was confirmed or suspected to have Coronavirus / COVID-19? No / Unsure 06/16/2021 1:10 PM SPOILAGE WORKER documented as of this encounter Miscellaneous [...] [place] 06/22/20 Office Visit Kishore Prieto APRN, AUTOMATION ANALYST [facility] [place] Showing recent visits within past 365 days and meeting all other requirements Future Appointments Date Type Provider Dept 08/01/21 Appointment Jabier Peck MD [facility] Showing future appointments within next 90 days and meeting all other requirements LAGE WORKER documented in this encounter Plan of Treatment Not on file documented as of this encounter Visit Diagnoses Diagnosis Cervical radiculopathy Brachial neuritis or radiculitis nos documented in this encounter Additional Health Concerns Infection Onset Date Last Indicated Resolved Time COVID - 19 Confirmed 05/31/2022 05/31/2022 023 12:16 AM SPOILAGE WORKER Respiratory Rule Out - RPA 02/26/2023 02/26/2023 0 02/26/2023 11:31 AM CDT COVID - 19 02/26/2023 02/26/2023 03/08/2023 12:1 6 AM CDT documented as of this encounter Care Teams Brass Pickler Relationship Specialty Start Date End Date Jabier Peck MD #2 [facility] [address] [place] [address] PCP - General Family Medicine 06/22/20 01/16/24 Tad Mcintosh MD [address] [place] [address] PCP - General Family Medicine 01/17/24 Srikanth Adrian MD #2 [facility] [address] [place] [address] Dealer Analyst Cardiovascular Disease - Cardiology 02/02/22 08/06/24 Gloria Martinez MD #2 [facility] [address] [place] [address] Consulting Physician Urology 04/30/24 documented as of this encounter
--- OUTSIDE RECORDS SUMMARY | 2025-01-10 15:49 | XMS_ITS | Encounter Summary ---
Author Organization [facility] Address [address] [place] [address] Phone Care Team Providers Care Chief Growth Officer Name Role Phone Srikanth Adrian MD Unavailable Tad Romero MD Primary Care Provider Gloria Martinez MD Unavailable [phone] Reason for Visit * Reason Comments Medication Refill Encounter Details Date Type Department Care Team (Late Contact Info) Description 07/26/2024 Refill [facility] #2 [place] [address] Jabier Peck MD #[address] [address] Medication Refill Social History Tobacco Use Types [...] CDT Gender Identity Male 05/03/2023 12:44 PM TYPEWRITER OPERATOR AUTOMATIC Sexual Orientation Lesbian or Wolff 05/03/2023 12 :44 PM TYPEWRITER OPERATOR AUTOMATIC documented as of this encounter Miscellaneous Notes * Telephone Encounter - Sheyla Burgess RN - 07/28/2024 10:39 AM TYPEWRITER OPERATOR AUTOMATIC Changed PCPs to Tad Mcintosh MD WRITER OPERATOR AUTOMATIC * Telephone Encounter - Sheyla Burgess RN - 07/28/2024 10:39 AM TYPEWRITER OPERATOR AUTOMATIC Now seeing Tad Mcintosh MD WRITER OPERATOR AUTOMATIC * Telephone Encounter - Sheyla Burgess RN - 07/28/2024 10:38 AM TYPEWRITER OPERATOR AUTOMATIC Needs OV. Last seen April 2023. WRITER OPERATOR AUTOMATIC documented in this encounter Plan of Treatment Not on file documented as of this encounter Visit Diagnoses Not on filedocumented in this encounter Care Teams Chief Growth Officer Relationship Specialty Start Date End Date Tad Mcintosh MD [address] [place] [address] PCP - General Family Medicine 01/17/24 Srikanth Adrian MD Grease Maker Head Cardiovascular Disease - Cardiology 02/02/22 08/06/24 Gloria Martinez MD #[address] [address] Consulting Physician Urology 04/30/24 documented as of this encounter
--- OUTSIDE RECORDS SUMMARY | 2025-01-10 15:49 | XMS_ITS | Encounter Summary ---
Author Organization [facility] Address [address] [place] [address] Phone Care Team Providers Care Core Carrier Name Role Phone Jabier Peck MD Primary Care Provider [phone] Srikanth Adrian MD Unavailable Tad Romero MD Primary Care Provider [phone] Gloria Martinez MD Unavailable [phone] Reason for Visit * Reason Comments Medication Refill Encounter Details Date Type Department Care Team (Late st Contact Info) Description 11/23/2021 Refill [facility] #2 [place] [address] Jabier Peck MD #[address] [address] Medication Refill Social History Tobacco Use Types [...] CDT Gender Identity Male 05/03/2023 12:44 PM POWER HOUSE ENGINEER Sexual Orientation Lesbian or Wolff 05/03/2023 12 :44 PM POWER HOUSE ENGINEER documented as of this encounter Miscellaneous [...] [facility] 03/16/21 Office Visit Kishore Prieto, MANUFACTURING ENGINEER PAINT, CHEESE SPECIALIST [facility] Showing recent visits within past 365 days [...] 19 Confirmed 05/31/2022 05/31/2022 023 12:16 AM POWER HOUSE ENGINEER Respiratory Rule Out - RPA 02/26/2023 02/26/2023 0 02/26/2023 11:31 AM CDT COVID - 19 02/26/2023 02/26/2023 03/08/2023 12:1 6 AM CDT documented as of this encounter Care Teams Core Carrier Relationship Specialty Start Date End Date Jabier Peck MD #[address] [address] PCP - General Family Medicine 06/22/20 01/16/24 Tad Mcintosh MD [address] [place] [address] PCP - General Family Medicine 01/17/24 Srikanth Adrian MD #2 [facility] [address] [place] [address] Plow Holder Cardiovascular Disease - Cardiology 02/02/22 08/06/24 Gloria Martinez MD #2 [facility] [address] [place] [address] Consulting Physician Urology 04/30/24 documented as of this encounter
--- OUTSIDE RECORDS SUMMARY | 2025-01-10 15:49 | XMS_ITS | Encounter Summary ---
Author Organization [facility] Address [address] [place] [address] Phone Care Team Providers Care Material Handling Warehouse Supervisor Name Role Phone Jabier Peck MD Primary Care Provider [phone] Srikanth Adrian MD Unavailable Tad Romero MD Primary Care Provider [phone] Gloria Martinez MD Unavailable [phone] Reason for Visit * Reason Comments Medication Refill Encounter Details Date Type Department Care Team (Late st Contact Info) Description 08/19/2021 Refill [facility] #2 [place] [address] Jabier Peck MD #[address] [address] Medication Refill Social History Tobacco Use Types [...] CDT Gender Identity Male 05/03/2023 12:44 PM SOYBEAN GROWER Sexual Orientation Lesbian or Wolff 05/03/2023 12 :44 PM SOYBEAN GROWER COVID-19 Exposure Response Date Recorded In the last month, have you been in contact with someone who was confirmed or suspected to have Coronavirus / COVID-19? No / Unsure 08/01/2021 1:35 PM SOYBEAN GROWER documented as of this encounter Miscellaneous Notes [...] [place] 08/20/20 Telemedicine Kishore Prieto APRN, RICHARD [facility] [place] Showing recent visits within past 365 days and meeting all other requirements Future Appointments Date Type Provider Dept 10/31/21 Appointment Jabier Peck MD [facility] Showing future appointments within next 90 days and meeting all other requirements EAN GROWER documented in this encounter Plan of Treatment Not on file documented as of this encounter Visit Diagnoses Diagnosis Cervical radiculopathy Brachial neuritis or radiculitis nos documented in this encounter Additional Health Concerns Infection Onset Date Last Indicated Resolved Time COVID - 19 Confirmed 05/31/2022 05/31/2022 023 12:16 AM SOYBEAN GROWER Respiratory Rule Out - RPA 02/26/2023 02/26/2023 0 02/26/2023 11:31 AM CDT COVID - 19 02/26/2023 02/26/2023 03/08/2023 12:1 6 AM CDT documented as of this encounter Care Teams Material Handling Warehouse Supervisor Relationship Specialty Start Date End Date Jabier Peck MD #2 [facility] [address] [place] [address] PCP - General Family Medicine 06/22/20 01/16/24 Tad Mcintosh MD [address] [place] [address] PCP - General Family Medicine 01/17/24 Srikanth Adrian MD #2 [facility] [address] [place] [address] Title Clerk Cardiovascular Disease - Cardiology 02/02/22 08/06/24 Gloria Martinez MD #2 [facility] [address] [place] [address] Consulting Physician Urology 04/30/24 documented as of this encounter
--- OUTSIDE RECORDS SUMMARY | 2025-01-10 15:49 | XMS_ITS | Encounter Summary ---
Author Organization [facility] Address [address] [place] [address] Phone Care Team Providers Care Library Acquisitions Technician Name Role Phone Jabeir Peck MD Primary Care Provider [phone] Srikanth Adrian MD Unavailable Tad Romero MD Primary Care Provider [phone] Gloria Martinez MD Unavailable Reason for Visit * Reason Onset Date Comments Medication Refill 12/28/2021 Encounter Details Date Type Department Care Team (Late st Contact Info) Description 12/28/2021 Refill [facility] - Family Medicine [facility] #2 [place] [address] Jabier Peck MD #[address] [address] Medication Refill Social History Tobacco Use Types [...] Gender Identity Male 05/03/2023 12:44 PM HEAD INSPECTOR Sexual Orientation Lesbian or Wolff 05/03/2023 12 :44 PM HEAD INSPECTOR COVID-19 Exposure Response Date Recorded In [...] 19 Confirmed 05/31/2022 05/31/2022 023 12:16 AM HEAD INSPECTOR Respiratory Rule Out - RPA 02/26/2023 02/26/2023 0 02/26/2023 11:31 AM CDT COVID - 19 02/26/2023 02/26/2023 03/08/2023 12:1 6 AM CDT documented as of this encounter Care Teams Library Acquisitions Technician Relationship Specialty Start Date End Date Jabier Peck MD #[address] [address] PCP - General Family Medicine 06/22/20 01/16/24 Tad Mcintosh MD [address] [place] [address] PCP - General Family Medicine 01/17/24 Srikanth Adrian MD #[address] [address] Helmet Hat Sweatband Puncher Cardiovascular Disease - Cardiology 02/02/22 08/06/24 Gloria Martinez MD #2 [facility] [address] [place] [address] Consulting Physician Urology 04/30/24 documented as of this encounter
--- OUTSIDE RECORDS SUMMARY | 2025-01-10 15:49 | XMS_ITS | Encounter Summary ---
Author Organization [facility] Address [address] [place] [address] Phone Care Team Providers Care Law Firm Consultant Name Role Phone Jabier Peck MD Primary Care Provider [phone] Srikanth Adrian MD Unavailable Tad Romero MD Primary Care Provider [phone] Gloria Martinez MD Unavailable [phone] Reason for Visit * Reason Comments Medication Refill Encounter Details Date Type Department Care Team (Late st Contact Info) Description 12/11/2021 Refill [facility] #2 [place] [address] Jabier Peck MD #[address] [address] Medication Refill Social History Tobacco Use Types [...] CDT Gender Identity Male 05/03/2023 12:44 PM IMAGING ACCOUNT MANAGER Sexual Orientation Lesbian or Wolff 05/03/2023 12 :44 PM IMAGING ACCOUNT MANAGER COVID-19 Exposure Response Date Recorded In [...] 03/16/21 Office Visit Kishore Prieto APRN, RICHARD [facility] [place] Showing recent visits within past 365 days and meeting all other requirements Future Appointments Date Type Provider Dept 12/13/21 Appointment Kishore Prieto APRN, RICHARD [facility] [place] Showing future appointments within next 90 days and meeting all other requirements documented in this encounter Plan of Treatment Not on file documented as of this encounter Visit Diagnoses Diagnosis Cervical radiculopathy Brachial neuritis or radiculitis nos documented in this encounter Additional Health Concerns Infection Onset Date Last Indicated Resolved Time COVID - 19 Confirmed 05/31/2022 05/31/2022 023 12:16 AM IMAGING ACCOUNT MANAGER Respiratory Rule Out - RPA 02/26/2023 02/26/2023 0 02/26/2023 11:31 AM CDT COVID - 19 02/26/2023 02/26/2023 03/08/2023 12:1 6 AM CDT documented as of this encounter Care Teams Law Firm Consultant Relationship Specialty Start Date End Date Jabier Peck MD #2 [facility] [address] [place] [address] PCP - General Family Medicine 06/22/20 01/16/24 Tad Mcintosh MD [address] [place] [address] PCP - General Family Medicine 01/17/24 Srikanth Adrian MD #2 [facility] [address] [place] [address] Community Resource Officer Cardiovascular Disease - Cardiology 02/02/22 08/06/24 Gloria Martinez MD #2 [facility] [address] [place] [address] Consulting Physician Urology 04/30/24 documented as of this encounter
--- OUTSIDE RECORDS SUMMARY | 2025-01-10 15:49 | XMS_ITS | Encounter Summary ---
Author Organization [facility] Address [address] [place] [address] Phone Care Team Providers Care Dental Financial Coordinator Name Role Phone Jabier Peck MD Primary Care Provider [phone] Srikanth Adrian MD Unavailable Tad Romero MD Primary Care Provider [phone] Gloria Martinez MD Unavailable [phone] Reason for Visit * Reason Comments Medication Refill Encounter Details Date Type Department Care Team (Late st Contact Info) Description 07/20/2021 Refill [facility] Medical Group - Family [facility] #2 [place] [address] Jabier Peck MD #[address] [address] Medication Refill Social History Tobacco Use Types [...] CDT Gender Identity Male 05/03/2023 12:44 PM COKE DRAWER Sexual Orientation Lesbian or Wolff 05/03/2023 12 :44 PM COKE DRAWER COVID-19 Exposure Response Date Recorded In the last month, have you been in contact with someone who was confirmed or suspected to have Coronavirus / COVID-19? No / Unsure 07/14/2021 12:17 PM COKE DRAWER documented as of this encounter Miscellaneous Notes [...] [facility] [place] 08/06/20 Telemedicine Kishore Prieto APRN, CORE BLOWER [facility] Showing recent visits within past 365 days and meeting all other requirements Future Appointments Date Type Provider Dept 08/01/21 Appointment Jabier Peck MD [facility] Showing future appointments within next 90 days and meeting all other requirements DRAWER documented in this encounter Plan of Treatment Not on file documented as of this encounter Visit Diagnoses Diagnosis Cervical radiculopathy Brachial neuritis or radiculitis nos documented in this encounter Additional Health Concerns Infection Onset Date Last Indicated Resolved Time COVID - 19 Confirmed 05/31/2022 05/31/2022 023 12:16 AM COKE DRAWER Respiratory Rule Out - RPA 02/26/2023 02/26/2023 0 02/26/2023 11:31 AM CDT COVID - 19 02/26/2023 02/26/2023 03/08/2023 12:1 6 AM CDT documented as of this encounter Care Teams Dental Financial Coordinator Relationship Specialty Start Date End Date Jabier Peck MD #2 [facility] [address] [place] [address] PCP - General Family Medicine 06/22/20 01/16/24 Tad Mcintosh MD [address] [place] [address] PCP - General Family Medicine 01/17/24 Srikanth Adrian MD #2 [facility] [address] [place] [address] Mica Paster Cardiovascular Disease - Cardiology 02/02/22 08/06/24 Gloria Martinez MD #2 [facility] [address] [place] [address] Consulting Physician Urology 04/30/24 documented as of this encounter
--- NOTE | 2025-01-10 15:50 | ED.NEUROSD ---
HPI - Neuro Symptoms/Deficit General Chief Complaint: Suspected CVA Stated Complaint: weakness left arm, poss cva Source: patient Mode of arrival: ambulatory Limitations: no limitations History of Present Illness HPI Narrative: 54-year-old male, smoker with a history of bipolar, asthma, lupus anticoagulant on Eliquis, Diabetes mellitus, psoriasis, hypertension, leg swelling on diuretics, negative cardiac catheterization 2 years ago,CVA with left-sided weakness many years ago presents to the ED witha 6 hour history of -- left arm numbness which progressed to involve the entire left side -- left-sided weakness. -- complained of left-sided facial droop. No headache or vision problems. Onset (ago): hour(s) ( 6 hours) Time: 10:00 Location: left arm and left leg History of same: Yes Quality: numb Relieving factors: none Exacerbating factors: none On Anticoagulants: Yes Associated symptoms: denies other symptoms Treatments Prior to Arrival: none Related Data Home Medications ?Medication ?Instructions ?Recorded ?Confirmed ?Last Taken ?Type aripiprazole 20 mg tablet 20 mg PO DAILY 06/20/23 11/26/24 Unknown History aripiprazole 5 mg tablet 5 mg PO DAILY 06/20/23 11/26/24 Unknown History aspirin 81 mg tablet,delayed 81 mg PO DAILY 06/20/23 11/26/24 Unknown History release (Adult Low Dose Aspirin) bupropion HCl 300 mg 24 hr tablet, 300 mg PO QAM 06/20/23 11/26/24 Unknown History extended release venlafaxine 150 mg 150 mg PO DAILY 06/20/23 11/26/24 Unknown History capsule,extended release 24 hr Allergies Allergy/AdvReac Type Severity Reaction Status Date / Time ivp dye Allergy Severe cant Uncoded 01/10/25 16:12 breathe Review of Systems Review of Systems: All systems reviewed & are unremarkable except as noted in HPI and below Constitutional: Constitutional: Reports as per HPI and Reports no additional constitutional complaints Eyes: Eyes: Reports as per HPI and Reports no additional eye complaints ENT: Reports system reviewed and no additional complaints, except as documented and Reports as per HPI Cardiovascular: Cardiovascular: Reports as per HPI and Reports no additional cardiovascular complaints Respiratory: Respiratory: Reports as per HPI and Reports no additional respiratory complaints Gastrointestinal: Gastrointestinal: Reports as per HPI and Reports no additional gastrointestinal complaints Genitourinary: Genitourinary: Reports no additional male genitourinary complaints and Reports as per HPI Musculoskeletal: Musculoskeletal: Reports no additional musculoskeletal complaints and Reports as per HPI Integumentary/Breasts: Comments: generalized erythematous rash secondary to psoriasis Neurologic: Reports system reviewed and no additional complaints, except as documented Comments: left-sided weakness and numbness Psychiatric: Psychiatric: Reports no additional psychiatric complaints and Reports as per HPI Endocrine: Endocrine: Reports no additional endocrine complaints and Reports excessive sweating Hematologic/Lymphatic: Hematologic/Lymphatic: Reports no additional hematologic/lymphatic complaints and Reports as per HPI Allergic/Immunologic: Allergic/Immunologic: Reports no additional allergic/immunologic complaints and Reports as per HPI [facility] Past Medical History Medical History Lupus Asthma Family History Family History Mother Carcinoma of colon Father Emphysema lung Grandparent Diabetes mellitus Sibling Lupus Other Hypertension Social History Social History Smoking packs per day: 0.5 Smoking cigarettes per day: 10.0 Smoking status: Former smoker Alcohol intake: never Substance use: never Gender identity (if verbalized by the patient): Male Exam Narrative: Vitals are stable Const: General: no acute distress Orientation/consciousness: patient oriented x3 Limitations: no limitations HENMT: Head: normal to inspection Ears: external ears normal Face/Nose/Sinus: Normal external nose present Face and sinus: normal facial exam Mouth: Yes Normal oral and palatal mucosa present Throat: posterior oropharynx normal Eyes: Conjunctivae: conjunctivae normal Pupils: Equal, round and reactive pupils present EOM: EOMs intact bilaterally Direct Ophthalmoscopy: no photophobia Neck: Neck: normal visual inspection, no lymphadenopathy and no meningeal signs Chest: Chest palpation & inspection: normal inspection of the chest Resp: Effort & Inspection: normal respiratory effort Auscultation: clear to auscultation bilaterally Cardio: Rate: regular rate Rhythm: regular rhythm GI: GI Palp: Yes Soft to palpation Auscultation: normal bowel sounds Other: no tenderness/ rigidity/rebound : General: Yes no CVA tenderness Back/Spine/Pelvis: Back: no CVA tenderness Skin: Other: generalized erythematous rash Neuro: General: patient oriented x3 and no meningeal signs Cranial nerves: Yes Nystagmus not present Speech: normal speech Other: left hemiplegia and jey anesthesia Extrem: General: normal to inspection and no clubbing, cyanosis or edema Psych: Mental Status: mental status grossly normal Affect: normal affect Course Course Emergency Course: CVA with left-sided weakness and numbness-- elevated blood sugar greater than 500, normal sinus rhythm. NIHSS of 4. Cannot do CT of the head and neck secondary to dye allergy. 5:00 p.m.--. Neuro exam is unchanged. CT of the head did not show any acute findings. Patient is on Eliquis and aspirin 81 mg daily. Hyperglycemia-- gave 7 units of insulin IV and started the patient on normal saline 150 cc an hour drip. repeat blood sugar was noted to be 393. will repeat another 5 units of insulin IV and continue IV fluids. CKD with a BUN/ creatinine of 14/1.37 which is close to his baseline Discussed with Dr. Sterling. Will transfer the patient to [facility] [place] Vital Signs Vital signs: Vital Signs Temperature 36.5 C 01/10/25 15:47 Pulse Rate 64 01/10/25 15:47 Respiratory Rate 17 01/10/25 15:47 Blood Pressure 143/89 H 01/10/25 15:47 Pulse Oximetry 98 01/10/25 15:47 Oxygen Delivery Room Air 01/10/25 15:47 Temperature 36.5 C 01/10/25 15:47 Pulse Rate 66 01/10/25 16:13 Respiratory Rate 16 01/10/25 16:10 Blood Pressure 138/80 01/10/25 16:10 Pulse Oximetry 98 01/10/25 16:10 Oxygen Delivery Room Air 01/10/25 15:47 [facility]DM - Neuro Symptoms/Deficit MDM Narrative Medical decision making narrative: CVA with left jey anesthesia/left hemiplegia hyperglycemia CKD Differential Diagnosis Differential diagnosis: Likely cerebrovascular accident, multiple sclerosis and transient cerebral ischemia Medical Records Attestation: I reviewed the patient's medical records. Lab Data Attestation: I reviewed the patient's lab results. 01/10/25 16:00 01/10/25 16:00 Labs: Lab Results 01/10/25 01/10/25 01/10/25 Range/Units 15:51 16:00 16:01 WBC 11.6 H (4.8-10.8) K/mm3 RBC 4.74 (4.70-6.10) M/mm3 Hgb 15.2 (14.0-18.0) g/dL Hct 42.3 (40.0-54.0) % MCV 89.2 (78.0-102.0) fL MCH 32.1 H (27.0-31.0) pg MCHC 35.9 (32-36) g/dL RDW 12.6 (11.6-14.4) % Plt Count 238 (150-420) K/mm3 MPV 10.4 (8.7-11.0) fl Immature Gran % (Auto) 0.3 H (0.0-0.0) % Neut % (Auto) 67.6 (50.0-70.0) % Lymph % (Auto) 22.8 (18.0-42.0) % [place] % (Auto) 4.7 (2.0-11.0) % Eos % (Auto) 3.5 (1.0-6.0) % Baso % (Auto) 1.1 H (0.0-1.0) % Lymph # (Auto) 2.63 (1.10-4.50) K/mm3 [place] # (Auto) 0.54 (0.10-0.90) K/mm3 Eos # (Auto) 0.40 (0.02-0.50) K/mm3 Baso # (Auto) 0.13 H (0.00-0.10) K/mm3 Abs Immat Gran (auto) 0.03 H (0.00-0.00) K/mm3 Absolute Neuts (auto) 7.82 H (1.70-7.20) K/mm3 Absolute Nucleated RBC 0.00 (0.00-0.00) K/mm3 Nucleated RBC % 0.0 (0-0.0) % PT 10.1 (9.50-12.1) Seconds INR 0.9 APTT 45.5 H (23.9-30.70) Sec Sodium 131 L (137-145) mmol/L Potassium 3.4 (3.4-5.0) mmol/L Chloride 98 (98-107) mmol/L Carbon Dioxide 24 (22-30) mmol/L Anion Gap 9 (4-12) mmol/L BUN 14 (9-20) mg/dL Creatinine 1.37 H (0.7-1.3) mg/dL Estim Creat Clear Calc Not Reportable Estimated GFR 54 L (59 - ) Glucose 496 H (65-110) mg/dL POC Capillary Glucose > 450 H (65-105) mg/dl Calculated Osmolality 294 (285-295) mOsm/kg Calcium 9.3 (8.4-10.2) mg/dL Total Bilirubin 0.7 (0.2-1.3) mg/dL AST 28 (17-59) U/L ALT 49 (6-50) U/L Alkaline Phosphatase 157 H (38-126) U/L Troponin I < 0.012 (0.000-0.034) ng/mL Total Protein 7.1 (6.3-8.2) g/dL Albumin 4.5 (3.5-5.1) g/dL 01/10/25 Range/Units 17:10 WBC (4.8-10.8) K/mm3 RBC (4.70-6.10) M/mm3 Hgb (14.0-18.0) g/dL Hct (40.0-54.0) % MCV (78.0-102.0) fL MCH (27.0-31.0) pg MCHC (32-36) g/dL RDW (11.6-14.4) % Plt Count (150-420) K/mm3 MPV (8.7-11.0) fl Immature Gran % (Auto) (0.0-0.0) % Neut % (Auto) (50.0-70.0) % Lymph % (Auto) (18.0-42.0) % [place] % (Auto) (2.0-11.0) % Eos % (Auto) (1.0-6.0) % Baso % (Auto) (0.0-1.0) % Lymph # (Auto) (1.10-4.50) K/mm3 [place] # (Auto) (0.10-0.90) K/mm3 Eos # (Auto) (0.02-0.50) K/mm3 Baso # (Auto) (0.00-0.10) K/mm3 Abs Immat Gran (auto) (0.00-0.00) K/mm3 Absolute Neuts (auto) (1.70-7.20) K/mm3 Absolute Nucleated RBC (0.00-0.00) K/mm3 Nucleated RBC % (0-0.0) % PT (9.50-12.1) Seconds INR APTT (23.9-30.70) Sec Sodium (137-145) mmol/L Potassium (3.4-5.0) mmol/L Chloride (98-107) mmol/L Carbon Dioxide (22-30) mmol/L Anion Gap (4-12) mmol/L BUN (9-20) mg/dL Creatinine (0.7-1.3) mg/dL Estim Creat Clear Calc Estimated GFR (59 - ) Glucose (65-110) mg/dL POC Capillary Glucose 393 H (65-105) mg/dl Calculated Osmolality (285-295) mOsm/kg Calcium (8.4-10.2) mg/dL Total Bilirubin (0.2-1.3) mg/dL AST (17-59) U/L ALT (6-50) U/L Alkaline Phosphatase (38-126) U/L Troponin I (0.000-0.034) ng/mL Total Protein (6.3-8.2) g/dL Albumin (3.5-5.1) g/dL Critical Care Time Critical Care Time Critical Care Time: Yes Total Critical Care Time: 40 Discharge Plan Discharge Clinical Impression: Acute CVA (cerebrovascular accident) Hyperglycemia due to type 2 diabetes mellitus Qualifiers: Diabetes mellitus senior living insulin use: with senior living use Qualified Code(s): E11.65 - Type 2 diabetes mellitus with hyperglycemia Patient Disposition: Still a Patient Condition: Stable Additional Instructions: transfer patient to [facility]. Patient has been accepted by Dr. Sterling Patient Language: Yi Prescriptions: No Action lactulose 20 gram/30 mL solution 20 g PO BID PRN (Reason: congestion) Qty: 1200 0RF glucagon 3 mg/actuation spray,non-aerosol 3 mg intranasal ONCE Qty: 2 0RF Rx Instructions: as a single dose ropinirole 2 mg tablet 2 mg PO QHS Qty: 90 3RF Jardiance 25 mg tablet 25 mg PO DAILY Qty: 14 0RF Rx Instructions: *SAMPLES GIVEN* [facility] [place]: [id number] L: [id number] E: 07/2026 Pt given 2 boxes. #14 tablets total. Xtampza ER 9 mg cap,sprinkl,ER12hr(DONT CRUSH) 9 mg PO Q12H Qty: 14 0RF Rx Instructions: must administer with a meal/food bupropion HCl 300 mg tablet extended release 24 hr 300 mg PO QAM aripiprazole 5 mg tablet 5 mg PO DAILY venlafaxine 150 mg capsule,extended release 24hr 150 mg PO DAILY aripiprazole 20 mg tablet 20 mg PO DAILY aspirin [Adult Low Dose Aspirin] 81 mg tablet,delayed release (DR/EC) 81 mg PO DAILY oxcarbazepine 600 mg tablet 600 mg PO BID Qty: 180 0RF Linzess 290 mcg capsule 290 mcg PO DAILY Qty: 90 0RF albuterol sulfate [Ventolin HFA] 90 mcg/actuation HFA aerosol inhaler 1 inh inhalation Q4H PRN (Reason: shortness of breath or wheezing) Qty: 8.5 2RF (DME) blood-glucose meter Kit See Rx Instructions .Route Qty: 1 0RF Rx Instructions: test up to 4 times a day (DME) lancets [OneTouch UltraSoft 2 Lancet] 30 gauge misc See Rx Instructions .Route Qty: 200 0RF Rx Instructions: As directed (DME) blood-glucose meter [OneTouch Ultra2 Meter] Misc See Rx Instructions .Route Qty: 1 0RF Rx Instructions: As directed (DME) lancets [OneTouch Delica Plus Lancet] 30 gauge misc See Rx Instructions .Route Qty: 200 2RF Rx Instructions: pt may test up to 4 times a day methocarbamol 750 mg tablet See Rx Instructions .ROUTE .COMPLEX Qty: 90 0RF Dose Instruction: TAKE 1 TABLET BY MOUTH AT BEDTIME Rx Instructions: TAKE 1 TABLET BY MOUTH AT BEDTIME trazodone 100 mg tablet See Rx Instructions .ROUTE .COMPLEX Qty: 180 0RF Dose Instruction: TAKE 2 TABLETS BY MOUTH AT BEDTIME Rx Instructions: TAKE 2 TABLETS BY MOUTH AT BEDTIME hydroxyzine pamoate 25 mg capsule See Rx Instructions .ROUTE .COMPLEX Qty: 90 0RF Dose Instruction: TAKE 1 CAPSULE BY MOUTH 3 TIMES A DAY FOR NAUSEA/VOMITING Rx Instructions: TAKE 1 CAPSULE BY MOUTH 3 TIMES A DAY FOR NAUSEA/VOMITING ondansetron 4 mg tablet,disintegrating 4 mg PO Q6H PRN (Reason: nausea and vomiting) Qty: 14 0RF montelukast 10 mg tablet 10 mg PO DAILY Qty: 90 3RF (DME) Blood Glucose Test Strip See Rx Instructions .Route Qty: 100 4RF Rx Instructions: QID atorvastatin 80 mg tablet 80 mg PO DAILY Qty: 90 3RF tadalafil [Cialis] 20 mg tablet 20 mg PO DAILY PRN (Reason: sexual activity) Qty: 30 0RF Rx Instructions: administer approximately 30min before sexual activity; do not use more than 1 dose per 24hrs fluticasone propionate 50 mcg/actuation spray,suspension See Rx Instructions .ROUTE .COMPLEX Qty: 48 0RF Dose Instruction: USE 1 SPRAY INTO EACH NOSTRIL TWICE A DAY Rx Instructions: USE 1 SPRAY INTO EACH NOSTRIL TWICE A DAY gabapentin 600 mg tablet See Rx Instructions .ROUTE .COMPLEX Qty: 360 0RF Dose Instruction: TAKE 1 TABLET BY MOUTH FOUR TIMES A DAY Rx Instructions: TAKE 1 TABLET BY MOUTH FOUR TIMES A DAY fluticasone propion-salmeterol 500-50 mcg/dose blister with device See Rx Instructions .ROUTE .COMPLEX Qty: 60 0RF Dose Instruction: INHALE 1 PUFF IN MORNING AND 1 PUFF AT BEDTIME Rx Instructions: INHALE 1 PUFF IN MORNING AND 1 PUFF AT BEDTIME omeprazole 20 mg capsule,delayed release(DR/EC) See Rx Instructions .ROUTE .COMPLEX Qty: 180 0RF Dose Instruction: TAKE 1 CAPSULE BY MOUTH TWICE A DAY Rx Instructions: TAKE 1 CAPSULE BY MOUTH TWICE A DAY metoprolol succinate 25 mg tablet extended release 24 hr See Rx Instructions .ROUTE .COMPLEX Qty: 180 2RF Dose Instruction: TAKE 2 TABLETS BY MOUTH EVERY DAY Rx Instructions: TAKE 2 TABLETS BY MOUTH EVERY DAY fosinopril 40 mg tablet See Rx Instructions .ROUTE .COMPLEX Qty: 90 0RF Dose Instruction: TAKE 1 TABLET BY MOUTH EVERY DAY Rx Instructions: TAKE 1 TABLET BY MOUTH EVERY DAY torsemide 20 mg tablet See Rx Instructions .ROUTE .COMPLEX Qty: 90 1RF Dose Instruction: TAKE 1 TABLET EVERY MORNING Rx Instructions: TAKE 1 TABLET EVERY MORNING betamethasone valerate 0.1 % cream 1 applic topical BID PRN (Reason: rash) Qty: 45 0RF Eliquis 5 mg tablet See Rx Instructions .ROUTE .COMPLEX Qty: 180 1RF Dose Instruction: TAKE 1 TABLET BY MOUTH TWICE A DAY Rx Instructions: TAKE 1 TABLET BY MOUTH TWICE A DAY Follow-up/Referrals: Tad Mcintosh DO [Primary Care Provider] - Time of Disposition: 17:26 Quality Stroke Date of last known normal: 01/10/25 Time of last known normal: 10:00 Stroke Scale Stroke Scale 1: Stroke scale date:: 01/10/25 Stroke scale time:: 16:00 1a Level of consciousness: alert-0 1b Level of consciousness questions: answers both correctly-0 1c Level of consciousness commands: obeys both correctly-0 2 Best gaze: normal-0 3 Visual: no visual loss-0 4 Facial palsy: normal-0 5a Motor: left arm: drift-1 5b Motor: right arm: no drift-0 6a Motor: left leg: some effort/gravity-2 6b Motor: right leg: no drift-0 7 Limb ataxia: absent-0 8 Sensory: pinprick less sharp-1 9 Best language: no aphasia-0 10 Dysarthria: normal-0 11 Extinction and inattention: no abnormality-0 Level:: 4
--- OUTSIDE RECORDS SUMMARY | 2025-01-10 15:50 | XMS_ITS | Encounter Summary ---
Author Organization [facility] Address [address] [place] [address] Phone Care Team Providers Care Personal Service Workers Name Role Phone Jabier Peck MD Primary Care Provider [phone] Srikanth Adrian MD Unavailable Tad Romero MD Primary Care Provider [phone] Gloria Martinez MD Unavailable [phone] Reason for Visit * Reason Comments Medication Refill Encounter Details Date Type Department Care Team (Late st Contact Info) Description 06/21/2022 Refill [facility] #2 [place] [address] Jabier Peck MD #[address] [address] Medication Refill Social History Tobacco Use Types [...] CDT Gender Identity Male 05/03/2023 12:44 PM SKIP LOAD DRIVER Sexual Orientation Lesbian or Wolff 05/03/2023 12 :44 PM SKIP LOAD DRIVER COVID-19 Exposure Response Date Recorded In the last 10 days, have yo u been in contact with someone who was confirmed or suspected to have Coronavirus/COVID-19? Yes 05/31/2022 2:12 PM SKIP LOAD DRIVER documented as of this encounter Miscellaneous Notes * Telephone Encounter - Libertad Shearer RN - 06/21/2022 1:33 PM CST Name from pharmacy: [facility] Will file in chart as: [facility] Caps[facility] The original prescription was discontinued on 02/24/2022 by Kishore Prieto APRN, RICHARD for thefollowing reason: Med List Clean Up. Renewing this prescription may not be appropriate. LOAD DRIVER documented in this encounter Plan of Treatment Not on file documented as of this encounter Visit Diagnoses Not on filedocumented in this encounter Additional Health Concerns Infection Onset Date Last Indicated Resolved Time Respiratory Rule Out - RPA 02/26/2023 02/26/2023 0 02/26/2023 11:31 AM CDT COVID - 19 02/26/2023 02/26/2023 03/08/2023 12:1 6 AM CDT documented as of this encounter Care Teams Personal Service Workers Relationship Specialty Start Date End Date Jabier Peck MD #[address] [address] PCP - General Family Medicine 06/22/20 01/16/24 Tad Mcintosh MD [address] [place] [address] PCP - General Family Medicine 01/17/24 Srikanth Adrian MD #[address] [address] Value Advisor Cardiovascular Disease - Cardiology 02/02/22 08/06/24 Gloria Martinez MD #2 [place] [address] Consulting Physician Urology 04/30/24 documented as of this encounter
--- OUTSIDE RECORDS SUMMARY | 2025-01-10 15:50 | XMS_ITS | Encounter Summary ---
Author Organization [facility] Address [address] [place] [address] Phone Care Team Providers Care Small Engine Technician Name Role Phone Jabier Peck MD Primary Care Provider [phone] Srikanth Adrian MD Unavailable Tad Romero MD Primary Care Provider [phone] Gloria Martinez MD Unavailable [phone] Reason for Visit * Reason Comments Medication Refill Encounter Details Date Type Department Care Team (Late st Contact Info) Description 05/14/2022 Refill [facility] #2 [place] [address] Jabier Peck MD #[address] [address] Medication Refill Social History Tobacco Use Types [...] CDT Gender Identity Male 05/03/2023 12:44 PM LABORER YARD Sexual Orientation Lesbian or Wolff 05/03/2023 12 :44 PM LABORER YARD COVID-19 Exposure Response Date Recorded In the last 10 days, have yo u been in contact with someone who was confirmed or suspected to have Coronavirus/COVID-19? No / Unsure 05/10/2022 2:32 PM LABORER YARD documented as of this encounter Miscellaneous Notes * Telephone Encounter - Anjali Hartley RN - 05/15/2022 9:34 AM LABORER YARD PDMP 04/18/2022 #45, 15 day supply. Medication [...] MD [facility] 03/03/22 Office Visit Jabier Pcek MD [facility] 02/24/22 Office Visit Kishore [...] 90 days and meeting all other requirements RER YARD documented in this encounter Plan of Treatment Not on file documented as of this encounter Visit Diagnoses Diagnosis Cervical radiculopathy Brachial neuritis or radiculitis nos documented in this encounter Additional Health Concerns Infection Onset Date Last Indicated Resolved Time COVID - 19 Confirmed 05/31/2022 05/31/2022 023 12:16 AM LABORER YARD Respiratory Rule Out - RPA 02/26/2023 02/26/2023 0 02/26/2023 11:31 AM CDT COVID - 19 02/26/2023 02/26/2023 03/08/2023 12:1 6 AM CDT documented as of this encounter Care Teams Small Engine Technician Relationship Specialty Start Date End Date Jabier Peck MD #2 [facility] [address] [place] [address] PCP - General Family Medicine 06/22/20 01/16/24 Tad Mcintosh MD [address] [place] [address] PCP - General Family Medicine 01/17/24 Srikanth Adrian MD #2 [facility] [address] [place] [address] Hydrogen Power Plant Manager Cardiovascular Disease - Cardiology 02/02/22 08/06/24 Gloria Martinez MD #2 [facility] [address] [place] [address] Consulting Physician Urology 04/30/24 documented as of this encounter
--- OUTSIDE RECORDS SUMMARY | 2025-01-10 15:50 | XMS_ITS | Encounter Summary ---
Author Organization [facility] Address [address] [place] [address] Phone Care Team Providers Care Diesel Technician Name Role Phone Jabier Peck MD Primary Care Provider [phone] Srikanth Adrian MD Unavailable Tad Romero MD Primary Care Provider [phone] Gloria Martinez MD Unavailable [phone] Reason for Visit * Reason Comments Medication Refill Encounter Details Date Type Department Care Team (Late st Contact Info) Description 08/30/2022 Refill [facility] #2 [place] [address] Jabier Peck MD #[address] [address] Medication Refill Social History Tobacco Use Types [...] CDT Gender Identity Male 05/03/2023 12:44 PM DAMPER MAKER Sexual Orientation Lesbian or Wolff 05/03/2023 12 :44 PM DAMPER MAKER COVID-19 Exposure Response Date Recorded In the last 10 days, have yo u been in contact with someone who was confirmed or suspected to have Coronavirus/COVID-19? No / Unsure 08/21/2022 12:53 PM DAMPER MAKER documented as of this encounter Miscellaneous [...] [place] 01/31/22 Office Visit Kishore Prieto APRN, ADMINISTRATIVE MEDICAL DIRECTOR [facility] 12/13/21 Telemedicine Kishore Prieto APRN, ADMINISTRATIVE MEDICAL DIRECTOR [facility] Showing recent visits within past 365 days [...] documented as of this encounter Care Teams Diesel Technician Relationship Specialty Start Date End Date Jabier Peck MD #2 [facility] [address] [place] [address] PCP - General Family Medicine 06/22/20 01/16/24 Tad Mcintosh MD [address] [place] [address] PCP - General Family Medicine 01/17/24 Srikanth Adrian MD #2 [facility] [address] [place] [address] Siding Installer Cardiovascular Disease - Cardiology 02/02/22 08/06/24 Gloria Martinez MD #2 [facility] [address] [place] [address] Consulting Physician Urology 04/30/24 documented as of this encounter
--- OUTSIDE RECORDS SUMMARY | 2025-01-10 15:50 | XMS_ITS | Encounter Summary ---
Author Organization [facility] Address [address] [place] [address] Phone Care Team Providers Care Hr Clerk Name Role Phone Jabier Peck MD Primary Care Provider [phone] Srikanth Adrian MD Unavailable Tad Romero MD Primary Care Provider [phone] Gloria Martinez MD Unavailable [phone] Reason for Visit * Reason Onset Date Comments Medication Refill Requesting new referral to [facility] 11/10/2022 Encounter Details Date Type Department Care Team (Late st Contact Info) Description 11/10/2022 Refill [facility] #2 [place] [address] Jabier Peck MD #[address] [address] Medication Refill; Requesting new referral to [facility] Social History Tobacco Use Types Packs/Day Years [...] Gender Identity Male 05/03/2023 12:44 PM BUSINESS ACCOUNT MANAGER Sexual Orientation Lesbian or Wolff 05/03/2023 12 :44 PM BUSINESS ACCOUNT MANAGER documented as of this encounter Miscellaneous Notes * Telephone Encounter - Nikky Irby - 11/10/2022 1:42 PM CDT C: Tae Kent is requesting a new referral to [facility]. . Please call Tae (relationship to patient [...] [place] 07/20/22 Office Visit Ger[facility] Rocha [facility] 05/03/22 Telemedicine Jabier Peck MD [facility] 03/03/22 Office Visit Jabier Peck MD [facility] 02/24/22 Office Visit Kishore Prieto APRN, RICHARD [facility] 01/31/22 Office Visit Kishore Prieto APRN, RICHARD [facility] 12/13/21 Telemedicine Kishore Prieto APRN, GROUP EXERCISE CLASS INSTRUCTOR [facility] [place] [...] RICHARD [facility] 12/13/21 Telemedicine Kishore Prieto APRN, GROUP EXERCISE CLASS INSTRUCTOR [facility] Showing recent visits within past [...] documented as of this encounter Care Teams Hr Clerk Relationship Specialty Start Date End Date Jabier Peck MD #[address] [facility] [address] [place] [address] PCP - General Family Medicine 06/22/20 01/16/24 Tad Mcintosh MD [address] [place] [address] PCP - General Family Medicine 01/17/24 Srikanth Adrian MD #[address] [facility] [address] [place] [address] Publications Manager Cardiovascular Disease - Cardiology 02/02/22 08/06/24 Gloria Martinez MD #2 [facility] [address] [place] [address] Consulting Physician Urology 04/30/24 documented as of this encounter
--- OUTSIDE RECORDS SUMMARY | 2025-01-10 15:50 | XMS_ITS | Encounter Summary ---
Author Organization [facility] Address [address] [place] [address] Phone Care Team Providers Care Forensic Science Examiner Name Role Phone Jabier Peck MD Primary Care Provider [phone] rSikanth Adrian MD Unavailable Tad Romero MD Primary Care Provider [phone] Gloria Martinez MD Unavailable [phone] Reason for Visit * Reason Onset Date Comments Medication Refill 03/23/2021 Encounter Details Date Type Department Care Team (Late st Contact Info) Description 03/23/2021 Refill [facility] Medical Group - Family Medicine [facility] #2 [place] [address] Jabier Peck MD #[address] [address] Medication Refill Social History Tobacco Use Types [...] CDT Gender Identity Male 05/03/2023 12:44 PM ADULT DAY CARE WORKER Sexual Orientation Lesbian or Wolff 05/03/2023 12 :44 PM ADULT DAY CARE WORKER COVID-19 Exposure Response Date Recorded In the last month, have you been in contact with someone who was confirmed or suspected to have Coronavirus / COVID-19? No / Unsure 03/15/2021 12:09 PM CDT documented as of this encounter Miscellaneous Notes * Telephone Encounter - Francine Stoo RN - 03/23/2021 10:50 AM CDT New [...] Outpatient Visits 1 week ago Cervical radiculopathy [facility] - Kishore Alonso APN, POLYSOMNOGRAPHY TECHNICIAN 4 months ago Dermatitis [facility] - Kishore Alonso APN, POLYSOMNOGRAPHY TECHNICIAN 5 months ago Diet-controlled diabetes mellitus (HCC) [facility] - Jabier Aldridge MD 7 months ago Thrombophilia (HCC) [facility] - Kishore Alonso APN, POLYSOMNOGRAPHY TECHNICIAN 7 months ago Obstructive sleep apnea syndrome [facility] [place] APN, POLYSOMNOGRAPHY TECHNICIAN Upcoming Appointments Future Appointments Tomorrow [facility] RESP ROOM1 [facility] Respiratory Therapy, [facility] In 1 week Sofy Bowen, PT [facility] at [facility], [facility] In 2 weeks Jabier Peck MD [facility] Family Medicine [facility] In 1 month Aria Delong DENTAL CHAIRSIDE ASSISTANT, MASTER SCHEDULER [facility] Neurology [facility] In 5 months Jt Morillo MD [facility] Oncology Services, [facility] FIELD COUNSEL - Recent and Past Visits Recent Visits Date Type Provider Dept 03/16/21 Office Visit Kishore Prieto APN, RICHARD [facility] 11/16/20 Office Visit Kishore Prieto APN, RICHARD [facility] 10/20/20 Office Visit Jabier Peck MD [facility] 08/20/20 Telemedicine Kishore Prieto APN, RICHARD [facility] 08/06/20 Telemedicine Kishore Prieto APN, RICHARD [facility] 06/22/20 Office Visit Kishore Prieto APN, RICHARD [facility] Showing recent visits within past 460 days with a meds authorizing provider and meeting all other requirements Future Appointments Date Type Provider Dept 04/08/21 Appointment Jabier Peck MD [facility] Showing future appointments within next 90 [...] 19 Confirmed 05/31/2022 05/31/2022 023 12:16 AM ADULT DAY CARE WORKER Respiratory Rule Out - RPA 02/26/2023 02/26/2023 0 02/26/2023 11:31 AM CDT COVID - 02/26/2023 02/26/2023 03/08/2023 12:1 6 AM CDT documented as of this encounter Care Teams Forensic Science Examiner Relationship Specialty Start Date End Date Jabier Peck MD #2 [facility] [address] [place] [address] PCP - General Family Medicine 06/22/20 01/16/24 Tad Mcintosh MD [address] [place] [address] PCP - General Family Medicine 01/17/24 Srikanth Adrian MD #[address] [address] Main Line Assembler Cardiovascular Disease - Cardiology 02/02/22 08/06/24 Gloria Martinez MD #[address] [address] Consulting Physician Urology 04/30/24 documented as of this encounter
--- OUTSIDE RECORDS SUMMARY | 2025-01-10 15:50 | XMS_ITS | Encounter Summary ---
Author Organization [facility] Address [address] [place] [address] Phone Care Team Providers Care Virtual Classroom Manager Name Role Phone Jabier Peck MD Primary Care Provider [phone] Srikanth Adrian MD Unavailable Tad Romero MD Primary Care Provider [phone] Gloria Martinez MD Unavailable [phone] Reason for Visit * Reason Comments Medication Refill Encounter Details Date Type Department Care Team (Late st Contact Info) Description 01/06/2021 Refill [facility] Medical Group - Family Medicine [facility] #2 [place] [id number] Jt Morillo MD [address] [place] [address] Medication Refill Social History Tobacco Use Types [...] CDT Gender Identity Male 05/03/2023 12:44 PM PENSION CONSULTANT Sexual Orientation Lesbian or Wolff 05/03/2023 12 :44 PM PENSION CONSULTANT documented as of this encounter Miscellaneous Notes [...] 19 Confirmed 05/31/2022 05/31/2022 023 12:16 AM PENSION CONSULTANT Respiratory Rule Out - RPA 02/26/2023 02/26/2023 0 02/26/2023 11:31 AM CDT COVID - 19 02/26/2023 02/26/2023 03/08/2023 12:1 6 AM CDT documented as of this encounter Care Teams Virtual Classroom Manager Relationship Specialty Start Date End Date Jabier Peck MD #2 [facility] [address] [place] [address] PCP - General Family Medicine 06/22/20 01/16/24 Tad Mcintosh MD [address] [place] [address] PCP - General Family Medicine 01/17/24 Srikanth Adrian MD #2 [facility] [address] [place] [address] Circus Artist Cardiovascular Disease - Cardiology 02/02/22 08/06/24 Gloria Martinez MD #2 [facility] [address] [place] [address] Consulting Physician Urology 04/30/24 documented as of this encounter
--- OUTSIDE RECORDS SUMMARY | 2025-01-10 15:50 | XMS_ITS | Encounter Summary ---
Author Organization [facility] Address [address] [place] [address] Phone Care Team Providers Care Financial Solutions Advisor Name Role Phone Jabier Peck MD Primary Care Provider [phone] Srikanth Adrian MD Unavailable Tad Romero MD Primary Care Provider [phone] Gloria Martinez MD Unavailable [phone] Reason for Visit * Reason Comments Medication Refill Encounter Details Date Type Department Care Team (Late st Contact Info) Description 05/14/2023 [facility]ill [facility] #2 [place] [address] Jabier Peck MD #[address] [address] Medication Refill Social History Tobacco Use Types [...] CDT Gender Identity Male 05/03/2023 12:44 PM SCIENTIST Sexual Orientation Lesbian or Wolff 05/03/2023 12 :44 PM SCIENTIST documented as of this encounter Miscellaneous Notes [...] 90 days and meeting all other requirements NTIST documented in this encounter Plan of Treatment Not on file documented as of this encounter Visit Diagnoses Not on filedocumented in this encounter Care Teams Financial Solutions Advisor Relationship Specialty Start Date End Date Jabier Peck MD #2 [facility] [address] [place] [address] PCP - General Family Medicine 06/22/20 01/16/24 Tad Mcintosh MD [address] [place] [address] PCP - General Family Medicine 01/17/24 Srikanth Adrian MD #2 [facility] [address] [place] [address] Slime Plant Operator Cardiovascular Disease - Cardiology 02/02/22 08/06/24 Gloria Martinez MD #2 [facility] [address] [place] [address] Consulting Physician Urology 04/30/24 documented as of this encounter
--- OUTSIDE RECORDS SUMMARY | 2025-01-10 15:50 | XMS_ITS | Encounter Summary ---
Author Organization [facility] Address [address] [place] [address] Phone Care Team Providers Care Stem Setter Name Role Phone Srikanth Adrian MD Unavailable Tad Romero MD Primary Care Provider [phone] Gloria Martinez MD Unavailable [phone] Reason for Visit * Reason Comments Medication Refill Encounter Details Date Type Department Care Team (Late Contact Info) Description 03/15/2024 Refill [facility] Medical Group - Family Medicine [facility] #2 [place] [address] Kishore Prieto APRN, FISHER TRAP #[address] [address] Medication Refill Social History Tobacco Use Types [...] CDT Gender Identity Male 05/03/2023 12:44 PM CHEMOTHERAPIST Sexual Orientation Lesbian or Wolff 05/03/2023 12 :44 PM CHEMOTHERAPIST documented as of this encounter Miscellaneous Notes * Telephone Encounter - Francine Soot RN - 03/17/2024 12:59 PM CDT PCP Tad Mcintosh MD documented in this encounter Plan of Treatment Not on file documented as of this encounter Visit Diagnoses Not on filedocumented in this encounter Care Teams Stem Setter Relationship Specialty Start Date End Date Tad Mcintosh MD [address] [place] [address] PCP - General Family Medicine 01/17/24 Srikanth Adrian MD [employer] Resource Teacher Cardiovascular Disease - Cardiology 02/02/22 08/06/24 Gloria Martinez MD #[address] [address] Consulting Physician Urology 04/30/24 documented as of this encounter
--- OUTSIDE RECORDS SUMMARY | 2025-01-10 15:50 | XMS_ITS | Encounter Summary ---
Author Organization [facility] Address [address] [place] [address] Phone Care Team Providers Care Bike Designer Name Role Phone Jabier Peck MD Primary Care Provider [phone] Srikanth Adrian MD Unavailable Tad Romero MD Primary Care Provider [phone] Gloria Martinez MD Unavailable [phone] Reason for Visit * Reason Comments Medication Refill Encounter Details Date Type Department Care Team (Late st Contact Info) Description 05/11/2021 Refill [facility] Medical Group - Family [facility] #2 [place] [address] Jabier Peck MD #[address] [address] Medication Refill Social History Tobacco Use Types [...] CDT Gender Identity Male 05/03/2023 12:44 PM LEAD MANUFACTURING ENGINEER Sexual Orientation Lesbian or Wolff 05/03/2023 12 :44 PM LEAD MANUFACTURING ENGINEER COVID-19 Exposure Response Date Recorded In the last month, have you been in contact with someone who was confirmed or suspected to have Coronavirus / COVID-19? No / Unsure 05/05/2021 12:33 PM LEAD MANUFACTURING ENGINEER documented as of this encounter Miscellaneous [...] [place] 06/22/20 Office Visit Kishore Prieto APRN, LATHE TENDER [facility] [place] Showing recent visits within past 365 days and meeting all other requirements Future Appointments Date Type Provider Dept 08/01/21 Appointment Jabier Peck MD [facility] Showing future appointments within next 90 days and meeting all other requirements MANUFACTURING ENGINEER documented in this encounter Plan of Treatment Not on file documented as of this encounter Visit Diagnoses Diagnosis Cervical radiculopathy Brachial neuritis or radiculitis nos documented in this encounter Additional Health Concerns Infection Onset Date Last Indicated Resolved Time COVID - 19 Confirmed 05/31/2022 05/31/2022 023 12:16 AM LEAD MANUFACTURING ENGINEER Respiratory Rule Out - RPA 02/26/2023 02/26/2023 0 02/26/2023 11:31 AM CDT COVID - 19 02/26/2023 02/26/2023 03/08/2023 12:1 6 AM CDT documented as of this encounter Care Teams Bike Designer Relationship Specialty Start Date End Date Jabier Peck MD #2 [facility] [address] [place] [address] PCP - General Family Medicine 06/22/20 01/16/24 Tad Mcintosh MD [address] [place] [address] PCP - General Family Medicine 01/17/24 Srikanth Adrian MD #2 [facility] [address] [place] [address] Excelsior Machine Operator Cardiovascular Disease - Cardiology 02/02/22 08/06/24 Gloria Martinez MD #[address] [facility] [address] [place] [address] Consulting Physician Urology 04/30/24 documented as of this encounter
--- OUTSIDE RECORDS SUMMARY | 2025-01-10 15:50 | XMS_ITS | Encounter Summary ---
Author Organization [facility] Address [address] 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 Sexual Orientation Lesbian or Wolff 05/03/2023 12 :44 PM DEAF TEACHER COVID-19 Exposure Response Date Recorded In [...] on filedocumented in this encounter Care Teams Medical Transcription Radiology Relationship Specialty Start Date End Date Jabier Peck MD #2 [facility] [address] [place] [address] PCP - General Family Medicine 06/22/20 01/16/24 Tad Mcintosh MD [address] [place] [address] PCP - General Family Medicine 01/17/24 Srikanth Adrian MD #2 [facility] [address] [place] [address] Mud Jack Nozzleman Cardiovascular Disease - Cardiology 02/02/22 08/06/24 Gloria Martinez MD #2 [facility] [address] [place] [address] Consulting Physician Urology 04/30/24 documented as of this encounter
--- OUTSIDE RECORDS SUMMARY | 2025-01-10 15:50 | XMS_ITS | Encounter Summary ---
Author Organization [facility] Address [address] [place] [address] Phone Care Team Providers Care Fisher Lampara Net Name Role Phone Jabier Peck MD Primary Care Provider [phone] Srikanth Adrian MD Unavailable Tad Romero MD Primary Care Provider [phone] Gloria Martinez MD Unavailable [phone] Reason for Visit * Reason Comments Medication Refill Encounter Details Date Type Department Care Team (Late st Contact Info) Description 06/12/2022 Refill [facility] #2 [place] [address] Jabier Peck MD #[address] [address] Medication Refill Social History Tobacco Use Types [...] CDT Gender Identity Male 05/03/2023 12:44 PM QUILL MACHINE TENDER Sexual Orientation Lesbian or Wolff 05/03/2023 12 :44 PM QUILL MACHINE TENDER COVID-19 Exposure Response Date Recorded In the last 10 days, have yo u been in contact with someone who was confirmed or suspected to have Coronavirus/COVID-19? Yes 05/31/2022 2:12 PM QUILL MACHINE TENDER documented as of this encounter Miscellaneous Notes * Telephone Encounter - Anjali Hartley RN - 06/13/2022 11:16 AM QUILL MACHINE TENDER Medication warning. Per nursing clinical judgement, provider [...] days and meeting all other requirements L MACHINE TENDER documented in this encounter Plan of Treatment Not on file documented as of this encounter Visit Diagnoses Not on filedocumented in this encounter Additional Health Concerns Infection Onset Date Last Indicated Resolved Time COVID - 19 Confirmed 05/31/2022 05/31/2022 023 12:16 AM QUILL MACHINE TENDER Respiratory Rule Out - RPA 02/26/2023 02/26/2023 0 02/26/2023 11:31 AM CDT COVID - 19 02/26/2023 02/26/2023 03/08/2023 12:1 6 AM CDT documented as of this encounter Care Teams Fisher Lampara Net Relationship Specialty Start Date End Date Jabier Peck MD #2 [facility] [address] [place] [address] PCP - General Family Medicine 06/22/20 01/16/24 Tad Mcintosh MD [address] [place] [address] PCP - General Family Medicine 01/17/24 Srikanth Adrian MD #2 [facility] [address] [place] [address] Supervisor Tile And Mottle Cardiovascular Disease - Cardiology 02/02/22 08/06/24 Gloria Martienz MD #2 [facility] [address] [place] [address] Consulting Physician Urology 04/30/24 documented as of this encounter
--- OUTSIDE RECORDS SUMMARY | 2025-01-10 15:50 | XMS_ITS | Encounter Summary ---
Author Organization [facility] Address [address] [place] [address] Phone Care Team Providers Care Industrial Electrician Name Role Phone Jabier Peck MD Primary Care Provider [phone] Srikanth Adrian MD Unavailable Tad Romero MD Primary Care Provider [phone] Gloria Martinez MD Unavailable [phone] Reason for Visit * Reason Comments Medication Refill Encounter Details Date Type Department Care Team (Late st Contact Info) Description 10/24/2022 Refill [facility] #2 [place] [address] Jabier Peck MD #[address] [address] Medication Refill Social History Tobacco Use Types [...] Gender Identity Male 05/03/2023 12:44 PM MANAGER OF LEARNING Sexual Orientation Lesbian or Wolff 05/03/2023 12 :44 PM MANAGER OF LEARNING documented as of this encounter Miscellaneous Notes [...] [place] 12/13/21 Telemedicine Kishore Prieto APRN, RICHARD [facility] [place] Showing recent visits within past 365 [...] documented as of this encounter Care Teams Industrial Electrician Relationship Specialty Start Date End Date Jabier Peck MD #2 [facility] [address] [place] [address] PCP - General Family Medicine 06/22/20 01/16/24 Tad Mcintosh MD [address] [place] [address] PCP - General Family Medicine 01/17/24 Srikanth Adrian MD #2 [facility] [address] [place] [address] Apparel Merchandiser Cardiovascular Disease - Cardiology 02/02/22 08/06/24 Gloria Martinez MD #2 [facility] [address] [place] [address] Consulting Physician Urology 04/30/24 documented as of this encounter
--- OUTSIDE RECORDS SUMMARY | 2025-01-10 15:50 | XMS_ITS | Encounter Summary ---
Author Organization [facility] Address [address] [facility] [place] [address] Phone Care Team Providers Care Front Office Medical Assistant Name Role Phone Tad Mcintosh MD Primary Care Provider [phone] Gloria Martinez MD Unavailable [phone] Reason for Visit * Reason Comments Medication Refill Encounter Details Date Type Department Care Team (Late st Contact Info) Description 10/21/2024 Refill [facility] Medical Group - Family Medicine [facility] #2 [place] [address] Jabier Peck MD #[address] [address] Medication Refill Social History Tobacco Use Types [...] CDT Gender Identity Male 05/03/2023 12:44 PM STITCHING DEPARTMENT SUPERVISOR Sexual Orientation Lesbian or Wolff 05/03/2023 12 :44 PM STITCHING DEPARTMENT SUPERVISOR documented as of this encounter Miscellaneous Notes * Telephone Encounter - Francine Soto RN - 10/22/2024 9:04 AM CDT PCP: Tad Mcintosh MD documented in this encounter Plan of Treatment Not on file documented as of this encounter Visit Diagnoses Not on filedocumented in this encounter Care Teams Front Office Medical Assistant Relationship Specialty Start Date End Date Tad Mcintosh MD [address] [place] [address] PCP - General Family Medicine 01/17/24 Gloria Martinez MD #[address] [address] Consulting Physician Urology 04/30/24 documented as of this encounter
--- OUTSIDE RECORDS SUMMARY | 2025-01-10 15:50 | XMS_ITS | Encounter Summary ---
Author Organization [facility] Address [address] [place] [address] Phone Care Team Providers Care Word Processing Specialist Name Role Phone Jabier Peck MD Primary Care Provider [phone] Srikanth Adrian MD Unavailable Tad Romero MD Primary Care Provider [phone] Gloria Martinez MD Unavailable [phone] Reason for Visit * Reason Comments Medication Refill Encounter Details Date Type Department Care Team (Late st Contact Info) Description 03/19/2023 Refill [facility] #2 [place] [address] Jabier Peck MD #[address] [address] Medication Refill Social History Tobacco Use Types [...] CDT Gender Identity Male 05/03/2023 12:44 PM PURCHASING EXPEDITOR Sexual Orientation Lesbian or Wolff 05/03/2023 12 :44 PM PURCHASING EXPEDITOR COVID-19 Exposure Response Date Recorded In the [...] [place] 11/30/22 Telemedicine Kishore Prieto APRN, RICHARD [facility] [place] 08/21/22 Office Visit Jabier Peck MD [facility] 07/20/22 Office Visit Gerri Rocha MD [facility] 05/03/22 Telemedicine Jabier Peck MD [facility] [place] Showing recent visits within past 365 [...] on filedocumented in this encounter Care Teams Word Processing Specialist Relationship Specialty Start Date End Date Jabier Peck MD #2 [facility] [address] [place] [address] PCP - General Family Medicine 06/22/20 01/16/24 Tad Mcintosh MD [address] [place] [address] PCP - General Family Medicine 01/17/24 Srikanth Adrian MD #2 [facility] [address] [place] [address] Operator Coating Furnace Cardiovascular Disease - Cardiology 02/02/22 08/06/24 Gloria Martinez MD #2 [facility] [address] [place] [address] Consulting Physician Urology 04/30/24 documented as of this encounter
--- OUTSIDE RECORDS SUMMARY | 2025-01-10 15:50 | XMS_ITS | Encounter Summary ---
Author Organization [facility] Address [address] [place] [address] Phone Care Team Providers Care Nurses' Association Executive Director Name Role Phone Jabier Peck MD Primary Care Provider [phone] Srikanth Adrian MD Unavailable Tad Romero MD Primary Care Provider [phone] Gloria Martinez MD Unavailable [phone] Reason for Visit * Reason Comments Medication Refill Encounter Details Date Type Department Care Team (Late st Contact Info) Description 08/01/2023 Refill [facility] #2 [place] [address] Jabier Peck MD #[address] [address] Medication Refill Social History Tobacco Use Types [...] CDT Gender Identity Male 05/03/2023 12:44 PM OCULAR PATHOLOGIST Sexual Orientation Lesbian or Wolff 05/03/2023 12 :44 PM OCULAR PATHOLOGIST documented as of this encounter Miscellaneous Notes [...] Passed - Active short-acting beta agonist prescription AR PATHOLOGIST documented in this encounter Plan of Treatment Not on file documented as of this encounter Visit Diagnoses Not on filedocumented in this encounter Care Teams Nurses' Association Executive Director Relationship Specialty Start Date End Date Jabier Peck MD #2 [facility] [address] [place] [address] PCP - General Family Medicine 06/22/20 01/16/24 Tad Mcintosh MD [address] [place] [address] PCP - General Family Medicine 01/17/24 Srikanth Adrian MD #2 [facility] [address] [place] [address] Twister Tender Cardiovascular Disease - Cardiology 02/02/22 08/06/24 Gloria Martinez MD #2 [facility] [address] [place] [address] Consulting Physician Urology 04/30/24 documented as of this encounter
--- OUTSIDE RECORDS SUMMARY | 2025-01-10 15:50 | XMS_ITS | Encounter Summary ---
Author Organization [facility] Address [address] [place] [address] Phone Care Team Providers Care Senior Asic Design Engineer Name Role Phone Jabier Peck MD Primary Care Provider [phone] Srikanth Adrian MD Unavailable Tad Romero MD Primary Care Provider [phone] Gloria Martinez MD Unavailable [phone] Reason for Visit * Reason Onset Date Comments Medication Refill 03/28/2021 Encounter Details Date Type Department Care Team (Late st Contact Info) Description 03/28/2021 Refill [facility] Medical Group - Family Medicine [facility] #2 [place] [address] Jabier Peck MD #[address] [address] Medication Refill Social History Tobacco Use Types [...] CDT Gender Identity Male 05/03/2023 12:44 PM CYBER POLICY AND STRATEGY PLANNER Sexual Orientation Lesbian or Wolff 05/03/2023 12 :44 PM CYBER POLICY AND STRATEGY PLANNER COVID-19 Exposure Response Date Recorded In the [...] [place] 08/20/20 Telemedicine Kishore Prieto APN, RICHARD [facility] 08/06/20 Telemedicine Kishore Prieto APN, RICHARD [facility] 06/22/20 Office Visit Kishore Prieto APN, COMPOSITION WEATHERBOARD INSTALLER [facility] Showing recent visits within past 365 days and meeting all other requirements Future Appointments Date Type Provider Dept 04/08/21 Appointment Jabier Peck MD [facility] [place] Showing future appointments within next [...] 19 Confirmed 05/31/2022 05/31/2022 023 12:16 AM CYBER POLICY AND STRATEGY PLANNER Respiratory Rule Out - RPA 02/26/2023 02/26/2023 0 02/26/2023 11:31 AM CDT COVID - 19 02/26/2023 02/26/2023 03/08/2023 12:1 6 AM CDT documented as of this encounter Care Teams Senior Asic Design Engineer Relationship Specialty Start Date End Date Jabier Peck MD #2 [facility] [address] [place] [address] PCP - General Family Medicine 06/22/20 01/16/24 Tad Mcintosh MD [address] [place] [address] PCP - General Family Medicine 01/17/24 Sirkanth Adrian MD #2 [facility] [address] [place] [address] Systems Trainer Cardiovascular Disease - Cardiology 02/02/22 08/06/24 Gloria Martinez MD #2 [facility] [address] [place] [address] Consulting Physician Urology 04/30/24 documented as of this encounter
--- OUTSIDE RECORDS SUMMARY | 2025-01-10 15:50 | XMS_ITS | Encounter Summary ---
Author Organization [facility] Address [address] [place] [address] Phone Care Team Providers Care Senior Web Engineer Name Role Phone Srikanth Adrian MD Unavailable Tad Romero MD Primary Care Provider [phone] Gloria Martinez MD Unavailable [phone] Reason for Visit * Reason Comments Medication Refill Encounter Details Date Type Department Care Team (Late Contact Info) Description 03/29/2024 Refill [facility] Medical Group - Family Medicine [facility] #2 [place] [address] Kishore Prieto APRN, AT HOME INDEPENDENT CALL CENTER AGENT #[address] [address] Medication Refill Social History Tobacco Use Types [...] CDT Gender Identity Male 05/03/2023 12:44 PM HEARING AND SPEECH ASSISTANT Sexual Orientation Lesbian or Wolff 05/03/2023 12 :44 PM HEARING AND SPEECH ASSISTANT documented as of this encounter Miscellaneous Notes * Telephone Encounter - Cristine Preston RN - 03/30/2024 1:22 PM CDT PCP: Tad Mcintosh MD documented in this encounter Plan of Treatment Not on file documented as of this encounter Visit Diagnoses Not on filedocumented in this encounter Care Teams Senior Web Engineer Relationship Specialty Start Date End Date Tad Mcintosh MD [address] [place] [address] PCP - General Family Medicine 01/17/24 Srikanth Adrian MD Documentation Engineer Cardiovascular Disease - Cardiology 02/02/22 08/06/24 Gloria Martinez MD #[address] [address] Consulting Physician Urology 04/30/24 documented as of this encounter
--- OUTSIDE RECORDS SUMMARY | 2025-01-10 15:50 | XMS_ITS | Encounter Summary ---
Author Organization [facility] Address [address] [place] [address] Phone Care Team Providers Care Monomer Purification Operator Name Role Phone Jabier Peck MD Primary Care Provider [phone] Srikanth Adrian MD Unavailable Tad Romero MD Primary Care Provider [phone] Gloria Martinez MD Unavailable [phone] Reason for Visit * Reason Comments Medication Refill Encounter Details Date Type Department Care Team (Late st Contact Info) Description 04/11/2021 Refill [facility] - Family Medicine [facility] [address] [place] [id number] Kishore Prieto, TIME PIECE REPAIRER, SOUVENIR AND NOVELTY MAKER [address] [address] Medication Refill Social History Tobacco Use Types [...] CDT Gender Identity Male 05/03/2023 12:44 PM CATEGORY MANAGER Sexual Orientation Lesbian or Wolff 05/03/2023 12 :44 PM CATEGORY MANAGER COVID-19 Exposure Response Date Recorded In the last month, have you been in contact with someone who was confirmed or suspected to have Coronavirus / COVID-19? No / Unsure 04/14/2021 12:48 PM CDT documented as of this encounter Miscellaneous Notes * Telephone Encounter - Sabina Holly RN - 04/12/2021 12:20 PM CDT Tonny calling in from [facility]. He is requesting to find [...] 19 Confirmed 05/31/2022 05/31/2022 023 12:16 AM CATEGORY MANAGER Respiratory Rule Out - RPA 02/26/2023 02/26/2023 0 02/26/2023 11:31 AM CDT COVID - 19 02/26/2023 02/26/2023 03/08/2023 12:1 6 AM CDT documented as of this encounter Care Teams Monomer Purification Operator Relationship Specialty Start Date End Date Jabier Peck MD #[address] [address] PCP - General Family Medicine 06/22/20 01/16/24 Tad Mcintosh MD [address] [place] [address] PCP - General Family Medicine 01/17/24 Srikanth Adrian MD #2 [facility] [address] [place] [address] Cloth Handler Cardiovascular Disease - Cardiology 02/02/22 08/06/24 Gloria Martinez MD #2 [facility] [address] [place] [address] Consulting Physician Urology 04/30/24 documented as of this encounter
--- OUTSIDE RECORDS SUMMARY | 2025-01-10 15:50 | XMS_ITS | Data Portability ---
Author Organization [place] [facility] [place] [facility] Address [address] [place] [address] Care Team Providers Care Coarse Wire Drawer Name Role Phone [facility] OTHER Assessment Encounter Date Assessment Date [...] recorded. Lab HbA1c (hemoglobin A1c), blood 2019 Not available 0 08:52:40 CMP, serum or plasma 2019 020 Not available 0 08:52:41 CBC 2019 Not available 0 08:52:41 PT/PTT, plasma 2019 020 Not available 0 08:52:41 HbA1c (hemoglobin A1c), blood 2019 020 Not available 0 11:13:00 Referral None recorded. Procedures None recorded. Surgeries None recorded. Imaging XR, chest 2019 020 Not available 0 10:08:12 electrocard iogram 2019 Not available 0 10:08:12 Medication Orders None recorded. Patient TargetsNo targets recorded. Patient Instructions Encounter Date Encounter Id Patient Instructions Last Modified By Organization Details Last Modified Time 11/18/2019 [id number] Recommend seeing neurologist of his choice or [...] the wound, pat dry and keep dressed/clean H&P. Discussed ulceration and in the presence of neuropathy and systemic disease having had DM. Diabetes must be well controlled to achieve [...] week abalettie Not available 11/18/2019 14:02:44 11/25/2019 [id number] Recommend, he would like to persue and discussed bilateral hammer toe surgery (arthrodesis B2,3,4 and arthroplasty B5). Likely ulcer will reoccur wo it. dc buttress. use cotton ball under the toe and continue maryuri/cotton/paper tape to the ulcer. Has improved nicely. get xrays L foot next visit. fu 1 wk ok to schedule surgery prn abalettie Not available 11/25/2019 15:25:12 12/02/2019 [id number] He said he is going to look into a lawsuit against his previous surgeon and asked me if I would talk to him, but he cannot remember his name and will have the corporate associate attorney call us for an appointment if needed. He has not gotten blood work done yet debrided ulcer, continue cotton under the toe too to offload, toe pads made it hurt more xray taken 1 view L foot to review hammer toes on that side. nc fu 2 wk for preop and wound care. abalettie Not available 12/02/2019 16:48:53 01/05/2020 [id number] has not fu in a month was [...] wk abalettie Not available 01/06/2020 10:34:37 01/13/2020 [id number] He has pain and his ulcer is not healing he has not gotten blood work done to look at his healing factors I would like to refer him to a wound care center of his choice. He knows of one in [place], [place] that he would like to go [...] Address Organization Details Recorded Time 01/13/20 20 [id number] Ulcer Debridement completed [facility] 01/13/2020 17:44:57 01/05/20 20 [id number] Ulcer Debridement completed [facility] 01/06/2020 10:31:49 12/02/19 20 [id number] Ulcer Debridement completed [facility] 12/02/2019 16:46:21 11/25/19 20 [id number] Ulcer Debridement completed [facility] 11/25/2019 15:20:30 11/25/19 20 [id number] Est. 20-29 min completed [facility] 11/25/2019 15:20:12 11/18/19 20 [id number] X-rays 3v Feet Normal completed [facility] 11/18/2019 13:56:31 11/18/19 20 [id number] Ulcer Debridement completed [facility] 11/18/2019 13:53:44 11/18/19 20 [id number]-- CIGARETTE MACHINES MECHANIC H&P Exam 30-44 minutes completed [facility] 11/18/2019 13:53:28 Tonsillectomy completed MORGAN BURGER [facility] 11/18/2019 12:23:22 Foot Surgery completed [facility] 11/18/2019 13:21:53 hammer toe operation completed Michelle Spangler [facility] 11/18/2019 13:22:01 Imaging Results None recorded. Procedure Notes None recorded. Medical Equipment None Reported. Allergies Allergen ID Allergen Name Allergen Category Reaction Reaction Severity Criticality Documentation Date Start Date Code Code System Note Provider Name and Address Organization Details Recorded Time 40638 acetamino phen / hydrocodo ne medicatio n Not available Not available Not available 11/25/2019 84404 2 RxNorm addic tion, abuse r Michelle Spangler [facility] 0 12:16:29 Medications Name Sig Start [...] Updated DateTime 11/18/2019 177.8 cm 37.3 kg/m2 392142.02 g MORGAN LOUISE - [facility] 11/18/2019 12:14:42 Date Recorded Body height Provider Name an d Address Organization Details Last Updated DateTime 11/25/2019 177.8 cm Paola Dockery [place] [facility] 11/25/2019 14:25:49 Date Recorded Body height Provider Name an d Address Organization Details Last Updated DateTime 12/02/2019 177.8 cm Paola Dockery [place] [facility] 12/02/2019 14:39:43 Date Recorded Body height Provider Name an d Address Organization Details Last Updated DateTime 01/05/2020 177.8 cm Paola Dockery [place] [facility] 01/05/2020 16:38:31 Date Recorded Body height Provider Name an d Address Organization Details Last Updated DateTime 01/13/2020 177.8 cm Paola Dockery [place] [facility] 01/13/2020 16:40:34 Social History Question Answer Notes LastModified by Organizat ion Details LastModified Time Tobacco Smoking Status Former Smoker MORGAN BURGER [facility] [place] - [facility] 11/18/2019 12:22:45 Quit Smoking How Many Years Ago? 20 Information not available 11/18/2019 Before Quit, How Many Ppd? 1 Information not available 11/18/2019 Before Quitting, Smoked How Many Years? 17 Information not available 11/18/2019 How Much Tobacco Do You Smoke? No Information not available 11/18/2019 Sex: Unknown Functional Status Question Answer Note LastModified by Organizat ion Details LastModified Time What is your level of alcohol consumption? 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 None Information [...] Neurologic Disease Y Sciatica N Heart Attack ([place]) N Diabetes Y Anxiety Disorder Y Urinary Tract Infections N Bleeding Disorder Y Arthritis N Abuse of [...] SNOMED-CT Code Diagnosis ICD10 Code Diagnosis Note [id number] EUN [address] [place] [address] 11/18/2019 12:00:36 11/18/2019 13:10:53 Disorder of nervous system due to type 2 diabetes mellitus 167044250 E11.49 Diabetic foot ulcer 3710 44038 E13.621 Hammer toe 314228464 M20 .41 M20.42 Amputated big toe 194804 007 Z89.411 Pain in right foot 51476 20079 06335 M79.671 Pain in left foot 664057 8853 57002 M79.672 Ulcer of toe 628202592 L 97.518 [id number] EUN [address] [place] [address] 11/25/2019 14:24:18 11/25/2019 14:52:22 Disorder of nervous system due to type 2 diabetes mellitus 863966086 E11.49 Diabetic foot ulcer 3710 06297 E13.621 Hammer toe 548875109 M20 .41 M20.42 Amputated big toe 083030 007 Z89.411 Pain in right foot 00212 80176 46461 M79.671 Pain in left foot 386316 3212 78107 M79.672 Ulcer of toe 390218578 L 97.518 [id number] Michelle Spangler DPM [address] [place] [address] 12/02/2019 14:37:47 12/02/2019 14:56:40 Disorder of nervous system due to type 2 diabetes mellitus 273591998 E11.49 Diabetic foot ulcer 3710 94550 E13.621 Ulcer of toe 607430851 L 97.518 [id number] EUN [address] [place] [address] 01/05/2020 16:35:48 01/05/2020 16:52:28 Disorder of nervous system due to type 2 diabetes mellitus 598293881 E11.49 Diabetic foot ulcer 3710 84800 E13.621 Ulcer of toe 317545162 L 97.518 [id number] EUN [address] [place] [address] 01/13/2020 16:24:56 01/13/2020 16:59:22 Disorder of nervous system due to type 2 diabetes mellitus 274416782 E11.49 Diabetic foot ulcer 3710 55117 E13.621 Ulcer of toe 888974933 L 97.518 Health Concerns Section Related Observation LastModified by Organization Detai ls LastModified Time None Recorded Concern Status LastModified by Organization Details LastModified Time None Recorded Advance Directives Directive None Recorded Payers Insurance Date Sequence Insurance Name Policy Number Policy Bailey Covered Member ID Bailey Member ID Guarantor Name 01/10/2020 1 [facility] (MEDICARE REPLACEMENT/A DVANTAGE - PPO) [id number] Tae Kent [id number] Tae Kent Notes Date Note Type Note Provider Name and Address Organization Details Recorded Time 11/18/2019 text/html [place]/ Call[place] / UlcersReported by PatientATHENA HPIFor location, patient reportsright: second toe (really hurts; the l2 hurts but to a lesser degree. has neuropathy of hands and feet. has not been in pain mgmt but has had an opiod addiction.)(r foot remains swollen.). For quality, patient reportsaching,throbbin g,sharp (stabbing feeling), andworsening. For current severity, patient reportsmoderate. For duration, patient [id number] months. For onset/timing, patient reportsabrupt onset (surgery made the right toes worse he says and he needed to get an amputation of the r1 toe.)(pt relates: he had hammer toes on the r foot so had hammer toe surgery with pins in all 5 toes. the pins were pulled after one week he said. then the big toe got infected down to bone and the bone was visible in the wound. he had a picc line, iv antibiotics and an amputation of the r hallux in august 2019. he is concerned that the foot and toes are still swollen.). For context, patient reportsdeformity (toes are still crooked after surgery he says they did not improve at all.). For aggravating factors, patient reportsstanding,pressu re,walking, andweightbearing(canno t find a shoe to fit r. he is wearing his surgical shoe.). For alleviating factors, patient reportsnothing helps. For associated symptoms, patient reportsswelling (on the entire r foot),throbbing / aching, andnumbness/tingling. For prior imaging, patient reportsnone (here).Past TreatmentsFor past treatments, (2 surgeries: hammer toe surgery on the r1,2,3,4,5 toes in march 2020. then amputation on the r1 toe august 2019.).He was tx'd for DM but then lost a lot of weight. He has not had a HbA1c test in years. He says if he eats something sweet he feels sick and his blood sugar goes up to over 200mg/dL. Michelle tobias [facility] 11/18/2019 14:04:56 11/25/2019 text/html [place]/ Callus / UlcersReported by PatientATHENA HPIFor location, patient reportsright: second toe (really hurts; the l2 hurts but to a lesser degree). For quality, patient reportsaching,throbbin g,sharp (stabbing feeling), andimproving. For current severity, patient reportsmoderate. For duration, patient [id number] months. For onset/timing, patient reportsabrupt onset (surgery made the right toes worse he says and he needed to get an amputation of the r1 toe.)(pt relates: he had hammer toes on the r foot so had hammer toe surgery with pins in all 5 toes. the pins were pulled after one week he said. then the big toe got infected down to bone and the bone was visible in the wound. he had a picc line, iv antibiotics and an amputation of the r hallux in august 2019. he is concerned that the foot and toes are still swollen.). For context, patient reportsdeformity (toes are still crooked after surgery he says they did not improve at all.). For aggravating factors, patient reportsstanding,pressu re,walking, andweightbearing(silic one buttress pad hurts it more. he is wearing his surgical shoe.). For alleviating factors, patient reportslimited weight bearing(sx shoe). For associated symptoms, patient reportsswelling (on the entire r foot),throbbing / aching, andnumbness/tingling. For prior imaging, patient reportsx ray.Past TreatmentsFor past treatments, (2 surgeries: hammer toe surgery on the r1,2,3,4,5 toes in march 2020. then amputation on the r1 toe august 2019.).He was tx'd for DM but then lost a lot of weight. He has not had a HbA1c test in years. He says if he eats something sweet he feels sick and his blood sugar goes up to over 200mg/dL. Present today c/o stabbing pain at amputation of R 1 Michelle tobias [facility] 11/25/2019 15:25:37 12/02/2019 text/html [place]/ Callus / UlcersReported by PatientATHENA HPIFor location, patient reportsright: second toe (and all the other toes hurt.). For quality, patient reportsaching,throbbin g,sharp (stabbing feeling), andimproving. For current severity, patient reportsmoderate. For duration, patient [id number] months. For onset/timing, patient reportsabrupt onset (surgery made the right toes worse he says and he needed to get an amputation of the r1 toe.). For context, patient reportsdeformity (toes are still crooked after surgery he says they did not improve at all.). For aggravating factors, patient reportsstanding,pressu re,walking, andweightbearing(silic one buttress pad hurts it more. he is wearing his surgical shoe.). For alleviating factors, patient reportslimited weight bearing(sx shoe). For associated symptoms, patient reportsswelling (on the entire r foot),throbbing / aching, andnumbness/tingling. For prior imaging, patient reportsx ray.Past TreatmentsFor past treatments, (2 surgeries: hammer toe surgery on the r1,2,3,4,5 toes in march 2020. then amputation on the r1 toe august 2019.).He was tx'd for DM but then lost a lot of weight. He has not had a HbA1c test in years. He says if he eats something sweet he feels sick and his blood sugar goes up to over 200mg/dL. Present today c/o stabbing pain at amputation of R [address] [facility] 12/02/2019 16:49:41 01/05/2020 text/html [place]/ Callus / UlcersReported by PatientATHENA HPIFor location, patient reportsright: second toe (burning). For quality, patient reportsunchanged. For current severity, patient reportsmild. For duration, patient [id number] months. For onset/timing, patient reportsabrupt onset (surgery made the right toes worse he says and he needed to get an amputation of the r1 toe.). For context, patient reportsdeformity (toes are still crooked after surgery he says they did not improve at all.). For aggravating factors, patient reportsstanding,pressu re,walking, andweightbearing(silic one buttress pad hurts it more. he is wearing his surgical shoe.). For alleviating factors, patient reportslimited weight bearing(sx shoe). For associated symptoms, patient reportsswelling (on the entire r foot),throbbing / aching, andnumbness/tingling(h is last tx date was december 01, he was advised then to rtc in one week.). For prior imaging, patient reportsx ray(lab work was ordered on 11/24 to look at healing factors but he has not had it done yet.).Past TreatmentsFor past treatments, (2 surgeries: hammer toe surgery on the r1,2,3,4,5 toes in march 2020. then amputation on the r1 toe august 2019.).He was tx'd for DM but then lost a lot of weight. He has not had a HbA1c test in years. He says if he eats something sweet he feels sick and his blood sugar goes up to over 200mg/dL. Present today c/o burning sensation of R 2 and tender DANI Drake [facility] 01/06/2020 10:34:57 01/13/2020 text/html [place]/ Callus / UlcersReported by PatientATHENA HPIFor location, patient reportsright: second toe (burning). For quality, patient reportsunchanged. For current severity, patient reportsmild. For duration, patient [id number] months. For onset/timing, patient reportsabrupt onset (surgery made the right toes worse he says and he needed to get an amputation of the r1 toe.). For context, patient reportsdeformity (toes are still crooked after surgery he says they did not improve at all.). For aggravating factors, patient reportsstanding,pressu re,walking, andweightbearing(silic one buttress pad hurts it more. he is wearing his surgical shoe.). For alleviating factors, patient reportslimited weight bearing(sx shoe). For associated symptoms, patient reportsswelling (on the entire r foot),throbbing / aching, andnumbness/tingling(h is last tx date was december 01, he was advised then to rtc in one week.). For prior imaging, patient reportsx ray(lab work was ordered on 11/24 to look at healing factors but he has not had it done yet.).Past TreatmentsFor past treatments, (2 surgeries: hammer toe surgery on the r1,2,3,4,5 toes in march 2020. then amputation on the r1 toe august 2019.). Present today wearing surgical boot states it hurts to walk on f/u burning sensation of R 2 and tender [facility]ANI [facility] 01/13/2020 17:48:34
--- OUTSIDE RECORDS SUMMARY | 2025-01-10 15:50 | XMS_ITS | Encounter Summary ---
Author Organization [facility] Address [address] [place] [address] Phone Care Team Providers Care Undercover Cop Name Role Phone Tad Mcintosh MD Primary Care Provider Gloria Martinez MD Unavailable [phone] Reason for Visit * Reason Comments Medication Refill Encounter Details Date Type Department Care Team (Late st Contact Info) Description 10/20/2024 Refill [facility] - Family Medicine [facility] [address] [place] [address] Jabier Peck MD #[address] [address] Medication Refill Social History Tobacco Use Types [...] CDT Gender Identity Male 05/03/2023 12:44 PM HANDKERCHIEF MAKER Sexual Orientation Lesbian or Wolff 05/03/2023 12 :44 PM HANDKERCHIEF MAKER documented as of this encounter Miscellaneous Notes * Telephone Encounter - Francine Soto RN - 10/21/2024 8:22 AM CDT PCP: Tad Mcintosh MD documented in this encounter Plan of Treatment Not on file documented as of this encounter Visit Diagnoses Not on filedocumented in this encounter Care Teams Undercover Cop Relationship Specialty Start Date End Date Tad Mcintosh MD [address] [place] [address] PCP - General Family Medicine 01/17/24 Gloria Martinez MD #[address] [address] Consulting Physician Urology 04/30/24 documented as of this encounter
--- OUTSIDE RECORDS SUMMARY | 2025-01-10 15:50 | XMS_ITS | Encounter Summary ---
Author Organization [facility] Address [address] [place] [address] Phone Care Team Providers Care Heel Cover Splitter Name Role Phone Jabier Peck MD Primary Care Provider [phone] Srikanth Adrian MD Unavailable Tad Romero MD Primary Care Provider [phone] Gloria Martinez MD Unavailable [phone] Reason for Visit * Reason Comments Medication Refill Encounter Details Date Type Department Care Team (Late st Contact Info) Description 07/10/2022 Refill [facility] Medical [facility] - Family [facility] [address] [place] [address] Jabier Peck MD #[address] [address] Medication Refill Social History Tobacco Use Types [...] CDT Gender Identity Male 05/03/2023 12:44 PM AEROSPACE MANAGER Sexual Orientation Lesbian or Wolff 05/03/2023 12 :44 PM AEROSPACE MANAGER documented as of this encounter Miscellaneous Notes * Telephone Encounter - Anjali Hartley RN - 07/10/2022 12:34 PM AEROSPACE MANAGER Refill requested too soon. SPACE MANAGER documented in this encounter Plan of Treatment Not on file documented as of this encounter Visit Diagnoses Not on filedocumented in this encounter Additional Health Concerns Infection Onset Date Last Indicated Resolved Time Respiratory Rule Out - RPA 02/26/2023 02/26/2023 0 02/26/2023 11:31 AM CDT COVID - 19 02/26/2023 02/26/2023 03/08/2023 12:1 6 AM CDT documented as of this encounter Care Teams Heel Cover Splitter Relationship Specialty Start Date End Date Jabier Peck MD #[address] [address] PCP - General Family Medicine 06/22/20 01/16/24 Tad Mcintosh MD [address] [place] [address] PCP - General Family Medicine 01/17/24 Srikanth Adrian MD #2 [facility] [address] [place] [address] Plant Culture Manager Cardiovascular Disease - Cardiology 02/02/22 08/06/24 Gloria Martinez MD #[address] [address] Consulting Physician Urology 04/30/24 documented as of this encounter
--- OUTSIDE RECORDS SUMMARY | 2025-01-10 15:50 | XMS_ITS | Encounter Summary ---
Author Organization [facility] Address [address] [place] [address] Phone Care Team Providers Care Card Fixer Name Role Phone Jabier Peck MD Primary Care Provider [phone] Srikanth Adrian MD Unavailable Tad Romero MD Primary Care Provider [phone] Gloria Martinez MD Unavailable [phone] Reason for Visit * Reason Comments Medication Refill Encounter Details Date Type Department Care Team (Late st Contact Info) Description 02/27/2023 Refill [facility] [address] [place] [address] Jabier Peck MD #[address] [address] Medication Refill Social History Tobacco Use Types [...] CDT Gender Identity Male 05/03/2023 12:44 PM COUNTER CLERK Sexual Orientation Lesbian or Wolff 05/03/2023 12 :44 PM COUNTER CLERK COVID-19 Exposure Response Date Recorded In [...] documented as of this encounter Care Teams Card Fixer Relationship Specialty Start Date End Date Jabier Peck MD #2 [facility] [address] [place] [address] PCP - General Family Medicine 06/22/20 01/16/24 Tad Mcintosh MD [address] [place] [address] PCP - General Family Medicine 01/17/24 Srikanth Adrian MD #2 [facility] [address] [place] [address] Director Occupational Cardiovascular Disease - Cardiology 02/02/22 08/06/24 Gloria Martinez MD #2 [facility] [address] [place] [address] Consulting Physician Urology 04/30/24 documented as of this encounter
--- OUTSIDE RECORDS SUMMARY | 2025-01-10 15:50 | XMS_ITS | Encounter Summary ---
Author Organization [facility] Address [address] [place] [address] Phone Care Team Providers Care Set Up Mechanic Stamping Machines Name Role Phone Jabier Peck MD Primary Care Provider [phone] Srikanth Adrian MD Unavailable Tad Romero MD Primary Care Provider [phone] Gloria Martinez MD Unavailable [phone] Reason for Visit * Reason Comments Medication Refill Encounter Details Date Type Department Care Team (Late st Contact Info) Description 04/13/2023 Refill [facility] #2 [place] [address] Jabier Peck MD #[address] [address] Medication Refill Social History Tobacco Use Types [...] CDT Gender Identity Male 05/03/2023 12:44 PM EDGER MACHINE HELPER Sexual Orientation Lesbian or Wolff 05/03/2023 12 :44 PM EDGER MACHINE HELPER documented as of this encounter Miscellaneous [...] nos documented in this encounter Care Teams Set Up Mechanic Stamping Machines Relationship Specialty Start Date End Date Jabier Peck MD #2 [facility] [address] [place] [address] PCP - General Family Medicine 06/22/20 01/16/24 Tad Mcintosh MD [address] [place] [address] PCP - General Family Medicine 01/17/24 Srikanth Adrian MD #2 [facility] [address] [place] [address] Manager Planning Cardiovascular Disease - Cardiology 02/02/22 08/06/24 Gloria Martinez MD #2 [facility] [address] [place] [address] Consulting Physician Urology 04/30/24 documented as of this encounter
--- OUTSIDE RECORDS SUMMARY | 2025-01-10 15:50 | XMS_ITS | Encounter Summary ---
Author Organization [facility] Address [address] [place] [address] Phone Care Team Providers Care Remote Computer Terminal Operator Name Role Phone Jabier Peck MD Primary Care Provider [phone] Srikanth Adrina MD Unavailable Tad Romero MD Primary Care Provider [phone] Gloria Martinez MD Unavailable [phone] Reason for Visit * Reason Comments Medication Refill Encounter Details Date Type Department Care Team (Late st Contact Info) Description 02/02/2021 Refill [facility] - Family [facility] #2 [place] [address] Jabier Peck MD #[address] [address] Medication Refill Social History Tobacco Use Types [...] CDT Gender Identity Male 05/03/2023 12:44 PM CHIEF CONCIERGE Sexual Orientation Lesbian or Wolff 05/03/2023 12 :44 PM CHIEF CONCIERGE documented as of this encounter Miscellaneous Notes [...] 06/22/20 Office Visit Kishore Prieto APN, RICHARD [facility] [place] Showing recent visits within past [...] 19 Confirmed 05/31/2022 05/31/2022 023 12:16 AM CHIEF CONCIERGE Respiratory Rule Out - RPA 02/26/2023 02/26/2023 0 02/26/2023 11:31 AM CDT COVID - 19 02/26/2023 02/26/2023 03/08/2023 12:1 6 AM CDT documented as of this encounter Care Teams Remote Computer Terminal Operator Relationship Specialty Start Date End Date Jabier Peck MD #2 [facility] [address] [place] [address] PCP - General Family Medicine 06/22/20 01/16/24 Tad Mcintosh MD [address] [place] [address] PCP - General Family Medicine 01/17/24 Srikanth Adrian MD #2 [facility] 205 [place] [address] Inspector Barrel Cardiovascular Disease - Cardiology 02/02/22 08/06/24 Gloria Martinez MD #2 [facility] [address] [place] [address] Consulting Physician Urology 04/30/24 documented as of this encounter
--- OUTSIDE RECORDS SUMMARY | 2025-01-10 15:50 | XMS_ITS | Encounter Summary ---
Author Organization [facility] Address [address] [place] [address] Phone Care Team Providers Care Aircraft De Icer Installer Name Role Phone Jabier Peck MD Primary Care Provider [phone] Srikanth Adrian MD Unavailable Tad Romero MD Primary Care Provider [phone] Gloria Martinez MD Unavailable [phone] Reason for Visit * Reason Comments Medication Refill Encounter Details Date Type Department Care Team (Late st Contact Info) Description 12/07/2023 Refill [facility] - Family Medicine [facility] #2 [place] [address] Jabier Peck MD #[address] [address] Medication Refill Social History Tobacco Use Types [...] CDT Gender Identity Male 05/03/2023 12:44 PM MOBILE 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 Requested Prescriptions Pending Prescriptions Disp Refills albuterol 108 (90 Base) MCG/ACT Aerosol Solution [Pharmacy Med Name: ALBUTEROL HFA 90 MCG INHALER (CO] 8.5 g Sig: TRANSFERRED: 06/15/23 -READ RX [...] [facility] [place] 12/18/22 Telemedicine Jabier Peck MD [facility] Showing recent visits within past 365 days and meeting all other requirements Future Appointments No visits were found meeting these conditions. Showing future appointments within next 90 days and meeting all other requirements documented in this encounter Plan of Treatment Not on file documented as of this encounter Visit Diagnoses Not on filedocumented in this encounter Care Teams Aircraft De Icer Installer Relationship Specialty Start Date End Date Jabier Peck MD #2 [place] [address] PCP - General Family Medicine 06/22/20 01/16/24 Tad Mcintosh MD [address] [place] [address] PCP - General Family Medicine 01/17/24 Srikanth Adrian MD #[id number] [address] Post Adoption Coordinator Cardiovascular Disease - Cardiology 02/02/22 08/06/24 Gloria Martinez MD #2 [facility] [address] [place] [address] Consulting Physician Urology 04/30/24 documented as of this encounter
--- OUTSIDE RECORDS SUMMARY | 2025-01-10 15:50 | XMS_ITS | Encounter Summary ---
Author Organization [facility] Address [address] [place] [address] Phone Care Team Providers Care Computer Systems Design Analyst Name Role Phone Jabier Peck MD Primary Care Provider [phone] Srikanth Adrian MD Unavailable Tad Romero MD Primary Care Provider [phone] Gloria Martinez MD Unavailable [phone] Reason for Visit * Reason Comments Medication Refill Encounter Details Date Type Department Care Team (Late st Contact Info) Description 03/19/2023 Refill [facility] - Family Medicine [facility] #2 [place] [address] Jabier Peck MD #[address] [address] Medication Refill Social History Tobacco Use Types [...] CDT Gender Identity Male 05/03/2023 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 Sexual Orientation Lesbian or Wolff 05/03/2023 12 :44 PM FAN RUNNER COVID-19 Exposure Response Date Recorded In [...] [place] 11/30/22 Telemedicine Kishore Prieto APRN, [facility] [place] 08/21/22 Office Visit Jabier Peck MD [facility] [place] 07/20/22 Office Visit Gerri Rocha MD [facility] 05/03/22 Telemedicine [facility] [place] Showing recent visits within past [...] unspecified documented in this encounter Care Teams Computer Systems Design Analyst Relationship Specialty Start Date End Date Jabier Peck MD #2 [facility] [address] [place] [address] PCP - General Family Medicine 06/22/20 01/16/24 Tad Mcintosh MD [address] [place] [address] PCP - General Family Medicine 01/17/24 Srikanth Adrian MD #2 [facility] [address] [place] [address] Career Orientation Teacher Cardiovascular Disease - Cardiology 02/02/22 08/06/24 Gloria Martinez MD #2 [facility] [address] [place] [address] Consulting Physician Urology 04/30/24 documented as of this encounter
--- OUTSIDE RECORDS SUMMARY | 2025-01-10 15:50 | XMS_ITS | Encounter Summary ---
Author Organization [facility] Address [address] [place] [address] Phone Care Team Providers Care Business Strategist Name Role Phone Jabier Peck MD Primary Care Provider [phone] Srikanth Adrian MD Unavailable Tad Romero MD Primary Care Provider [phone] Gloria Martinez MD Unavailable [phone] Reason for Visit * Reason Comments Medication Refill Encounter Details Date Type Department Care Team (Late st Contact Info) Description 07/28/2022 Refill [facility] Family [facility] #2 [place] [address] Jabier Peck MD #[address] [address] Medication Refill Social History Tobacco Use Types [...] CDT Gender Identity Male 05/03/2023 12:44 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 No / Unsure 07/20/2022 2:30 PM PRIVATE HOUSEHOLD WORKER documented as of this encounter Miscellaneous [...] [facility] 05/03/22 Telemedicine Jabier Peck MD [facility] 03/03/22 Office Visit Jabier Peck MD [facility] [place] 02/24/22 Office Visit Kishore Prieto APRN, RICHARD [facility] [place] 01/31/22 Office Visit Kishore Prieto APRN, RICHARD [facility] [place] 12/13/21 Telemedicine Kishore Prieto APRN, SCRUB TECHNICIAN [facility] [place] 08/01/21 Office Visit Jabier Peck MD [facility] [place] Showing recent visits within past 365 days and meeting all other requirements Future Appointments No visits were found meeting these conditions. Showing future appointments within next 90 days and meeting all other requirements ATE HOUSEHOLD WORKER documented in this encounter Plan of [...] documented as of this encounter Care Teams Business Strategist Relationship Specialty Start Date End Date Jabier Peck MD #2 [facility] [address] [place] [address] PCP - General Family Medicine 06/22/20 01/16/24 Tad Mcintosh MD [address] [place] [address] PCP - General Family Medicine 01/17/24 Srikanth Adrian MD #2 [facility] [address] [place] [address] Employee Benefits Administrator Cardiovascular Disease - Cardiology 02/02/22 08/06/24 Gloria Martinez MD #2 [facility] [address] [place] [address] Consulting Physician Urology 04/30/24 documented as of this encounter
--- OUTSIDE RECORDS SUMMARY | 2025-01-10 15:50 | XMS_ITS | Encounter Summary ---
Author Organization [facility] Address [address] [facility] [place] [address] Phone Care Team Providers Care Kitchenwhere Maker Name Role Phone Jabier Peck MD Primary Care Provider [phone] Srikanth Adrian MD Unavailable Tad Romero MD Primary Care Provider [phone] Gloria Martinez MD Unavailable [phone] Reason for Visit * Reason Comments Medication Refill Encounter Details Date Type Department Care Team (Late st Contact Info) Description 05/25/2022 Refill [facility] On[facility] [address] [place] [phone] Jt Morillo MD [address] [place] [address] Medication Refill Social History Tobacco Use Types [...] Gender Identity Male 05/03/2023 12:44 PM SUPERVISOR LAST MODEL DEPARTMENT Sexual Orientation Lesbian or Wolff 05/03/2023 12 :44 PM SUPERVISOR LAST MODEL DEPARTMENT COVID-19 Exposure Response Date Recorded In the last 10 days, have yo u been in contact with someone who was confirmed or suspected to have Coronavirus/COVID-19? No / Unsure 05/10/2022 2:32 PM SUPERVISOR LAST MODEL DEPARTMENT documented as of this encounter Miscellaneous Notes * Telephone Encounter - Aisha Escamilla RN - 05/26/2022 11:00 AM CST Approved Eliquis per last f/u note. Pt to be on indefinite AC. RVISOR LAST MODEL DEPARTMENT documented in this encounter Plan of Treatment Not on file documented as of this encounter Visit Diagnoses Diagnosis History of thrombophilia associated with MTHFR mutation documented in this encounter Additional Health Concerns Infection Onset Date Last Indicated Resolved Time COVID - 19 Confirmed 05/31/2022 05/31/2022 023 12:16 AM SUPERVISOR LAST MODEL DEPARTMENT Respiratory Rule Out - RPA 02/26/2023 02/26/2023 0 02/26/2023 11:31 AM CDT COVID - 19 02/26/2023 02/26/2023 03/08/2023 12:1 6 AM CDT documented as of this encounter Care Teams Kitchenwhere Maker Relationship Specialty Start Date End Date Jabier Peck MD #[address] [address] PCP - General Family Medicine 06/22/20 01/16/24 Tad Mcintosh MD [address] [place] [address] PCP - General Family Medicine 01/17/24 Srikanth Adrian MD #2 [facility] [address] [place] [address] Paper Machine Supervisor Cardiovascular Disease - Cardiology 02/02/22 08/06/24 Gloria Martinez MD #2 [facility], [address] [address] Consulting Physician Urology 04/30/24 documented as of this encounter
--- OUTSIDE RECORDS SUMMARY | 2025-01-10 15:50 | XMS_ITS | Encounter Summary ---
Author Organization [facility] Address [address] [place] [address] Phone Care Team Providers Care Doughnut Machine Operator Name Role Phone Jabier Peck MD Primary Care Provider [phone] Srikanth Adrian MD Unavailable Tad Romero MD Primary Care Provider [phone] Gloria Martinez MD Unavailable [phone] Reason for Visit * Reason Comments Medication Refill Encounter Details Date Type Department Care Team (Late st Contact Info) Description 03/29/2022 Refill [facility] - Family [facility] #2 [place] [address] Jabier Peck MD #[address] [address] Medication Refill Social History Tobacco Use Types [...] CDT Gender Identity Male 05/03/2023 12:44 PM MARKETING ANALYTICS MANAGER Sexual Orientation Lesbian or Wolff 05/03/2023 12 :44 PM MARKETING ANALYTICS MANAGER COVID-19 Exposure Response Date Recorded In [...] 19 Confirmed 05/31/2022 05/31/2022 023 12:16 AM MARKETING ANALYTICS MANAGER Respiratory Rule Out - RPA 02/26/2023 02/26/2023 0 02/26/2023 11:31 AM CDT COVID - 19 02/26/2023 02/26/2023 03/08/2023 12:1 6 AM CDT documented as of this encounter Care Teams Doughnut Machine Operator Relationship Specialty Start Date End Date Jabier Peck MD #2 [facility] [address] [place] [address] PCP - General Family Medicine 06/22/20 01/16/24 Tad Mcintosh MD [address] [place] [address] PCP - General Family Medicine 01/17/24 Srikanth Adrian MD #2 [facility] [address] [place] [address] Home Health Care Provider Cardiovascular Disease - Cardiology 02/02/22 08/06/24 Gloria Martinez MD #2 [facility] [address] [place] [address] Consulting Physician Urology 04/30/24 documented as of this encounter
--- OUTSIDE RECORDS SUMMARY | 2025-01-10 15:50 | XMS_ITS | Encounter Summary ---
Author Organization [facility] Address [address] [place] [address] Phone Care Team Providers Care Diesel Engine I Pipe Fitter Name Role Phone Jabier Peck MD Primary Care Provider [phone] Srikanth Adrian MD Unavailable Tad Romero MD Primary Care Provider [phone] Gloria Martinez MD Unavailable [phone] Reason for Visit * Reason Comments Medication Refill Encounter Details Date Type Department Care Team (Late st Contact Info) Description 03/24/2022 Refill [facility] - Family Medicine [facility] #2 [place] [address] Kishore Prieto, CLUTCH OPERATOR, HOMICIDE INVESTIGATOR #[address] [address] Medication Refill Social History Tobacco Use Types [...] CDT Gender Identity Male 05/03/2023 12:44 PM TOMBSTONE ERECTOR HELPER Sexual Orientation Lesbian or Wolff 05/03/2023 12 :44 PM TOMBSTONE ERECTOR HELPER COVID-19 Exposure Response Date Recorded [...] 19 Confirmed 05/31/2022 05/31/2022 023 12:16 AM TOMBSTONE ERECTOR HELPER Respiratory Rule Out - RPA 02/26/2023 02/26/2023 0 02/26/2023 11:31 AM CDT COVID - 19 02/26/2023 02/26/2023 03/08/2023 12:1 6 AM CDT documented as of this encounter Care Teams Diesel Engine I Pipe Fitter Relationship Specialty Start Date End Date Jabier Peck MD #2 [facility] [address] [place] [address] PCP - General Family Medicine 06/22/20 01/16/24 Tad Mcintosh MD [address] [place] [address] PCP - General Family Medicine 01/17/24 Srikanth Adrian MD #2 [facility] [address] [place] [address] Sales And Marketing Executive Cardiovascular Disease - Cardiology 02/02/22 08/06/24 Gloria Martinez MD #2 [facility] [address] [place] [address] Consulting Physician Urology 04/30/24 documented as of this encounter
--- OUTSIDE RECORDS SUMMARY | 2025-01-10 15:50 | XMS_ITS | Clinical Summary ---
Author Organization [facility] Facility Address [address] [place] [address] Care Team Providers Care Residential Supervisor Name Role Phone Jabier Peck MD MPH Primary Care Provider [phone] Allergies Active Allergy Reactions Criticality Noted Date [...] AM C DT Height 175.3 cm (5' 9) 01/12/2022 9:57 AM CDT Body Mass Index [...] 12/30/2021, 12/30/2021, Additional history exists Influenza Vaccine (#1) 2025 2, 08/01/2021, 03/31/2020, Additional history exists Pneumococcal Vaccine: Peds ( 0 to 5 Years) and At-Risk Patients (6 to 49 Years) Discontinued 06/22/2020 Procedures Procedure Name Priority Date/Time Associated Diagnosis Comments HEMOGLOBIN A1C Routine 12/30/2021 from Last 3 Months or Most Recently Relevant to Health Maintenance Results * (ABNORMAL) Hemoglobin A1c (12/30/2021) Hemoglobin A1C 7.0(A) 4.0 - 6.0 Blood specimen (specimen) Venous blood / Unknown 12/30/2021 [facility] Provider LAB BLOOD ORDERABLES Becky l Result from Last 3 Months or Most Recently Relevant to Health Maintenance Insurance UHC Medicare Medicaid [place] Care Teams Residential Supervisor Relationship Specialty Start Date End Date Jabier Peck MD MPH [address] [address] PCP - General Family Medicine 09/13/21
--- OUTSIDE RECORDS SUMMARY | 2025-01-10 15:50 | XMS_ITS | Encounter Summary ---
Author Organization [facility] Address [address] [facility] [place] [address] Phone Care Team Providers Care Passenger Representative Name Role Phone Jabier Peck MD Primary Care Provider + [phone] Srikanth Adrian MD Unavailable Tad Romero MD Primary Care Provider [phone] Gloria Martinez MD Unavailable [phone] Reason for Visit * Reason Comments Medication Refill Encounter Details Date Type Department Care Team (Late st Contact Info) Description 08/19/2022 Refill [facility] Oncology Services [address] [place] [address] Jt Morillo MD [address] [place] [address] Medication Refill Social History Tobacco Use Types [...] CDT Gender Identity Male 05/03/2023 12:44 PM MANUFACTURING TEST ENGINEER Sexual Orientation Lesbian or Wolff 05/03/2023 12 :44 PM MANUFACTURING TEST ENGINEER COVID-19 Exposure Response Date Recorded In the last 10 days, have yo u been in contact with someone who was confirmed or suspected to have Coronavirus/COVID-19? No / Unsure 08/21/2022 12:53 PM MANUFACTURING TEST ENGINEER documented as of this encounter Miscellaneous Notes * Telephone Encounter - Aisha Escamilla RN - 08/21/2022 12:02 PM CST Approved Eliquis per last f/u note. FACTURING TEST ENGINEER documented in this encounter Plan of [...] documented as of this encounter Care Teams Passenger Representative Relationship Specialty Start Date End Date Jabier Peck MD #2 [facility] [address] [place] [address] PCP - General Family Medicine 06/22/20 01/16/24 Tad Mcintosh MD [address] [place] [address] PCP - General Family Medicine 01/17/24 Srikanth Adrian MD #2 [facility] [address] [place] [address] Railway Shunter Cardiovascular Disease - Cardiology 02/02/22 08/06/24 Gloria Martinez MD #2 [facility] [address] [place] [address] Consulting Physician Urology 04/30/24 documented as of this encounter
--- OUTSIDE RECORDS SUMMARY | 2025-01-10 15:50 | XMS_ITS | Encounter Summary ---
Author Organization [facility] Address [address] [place] [address] Phone Care Team Providers Care Instrumentation Controls Engineer Name Role Phone Jabier Peck MD Primary Care Provider [phone] Srikanth Adrian MD Unavailable Tad Romero MD Primary Care Provider [phone] Gloria Martinez MD Unavailable [phone] Reason for Visit * Reason Onset Date Comments Advice Only 12/18/2022 Encounter Details Date Type Department Care Team (Late st Contact Info) Description 12/18/2022 Telephone [facility] [address] [place] [address] Jabier Peck MD #[address] [address] Advice Only Social History Tobacco Use Types [...] Gender Identity Male 05/03/2023 12:44 PM DEPUTY SHERIFF BUILDING GUARD Sexual Orientation Lesbian or Wolff 05/03/2023 12 :44 PM DEPUTY SHERIFF BUILDING GUARD documented as of this encounter Miscellaneous Notes [...] documented as of this encounter Care Teams Instrumentation Controls Engineer Relationship Specialty Start Date End Date Jabier Peck MD #[address] [address] PCP - General Family Medicine 06/22/20 01/16/24 Tad Mcintosh MD [address] [place] [address] PCP - General Family Medicine 01/17/24 Srikanth Adrian MD #[address] [address] Reactor Operator Cardiovascular Disease - Cardiology 02/02/22 08/06/24 Gloria Martinez MD #2 [facility], [address] [address] Consulting Physician Urology 04/30/24 documented as of this encounter
--- OUTSIDE RECORDS SUMMARY | 2025-01-10 15:50 | XMS_ITS | Encounter Summary ---
Author Organization [facility] Address [address] [place] [address] Phone Care Team Providers Care Wardrobe Stylist Name Role Phone Jabier Peck MD Primary Care Provider [phone] Srikanth Adrian MD Unavailable Tad Romero MD Primary Care Provider [phone] Gloria Martinez MD Unavailable [phone] Reason for Visit * Reason Comments Medication Refill Encounter Details Date Type Department Care Team (Late st Contact Info) Description 06/20/2022 Refill [facility] [place] [address] Jabier Peck MD [address] [address] Medication Refill Social History Tobacco Use Types [...] CDT Gender Identity Male 05/03/2023 12:44 PM [employer] Sexual Orientation Lesbian or Wolff 05/03/2023 12 :44 PM [employer] COVID-19 Exposure Response Date Recorded In the last 10 days, have yo u been in contact with someone who was confirmed or suspected to have Coronavirus/COVID-19? Yes 05/31/2022 2:12 PM [employer] documented as of this encounter Miscellaneous [...] Provider Dept 06/27/22 Appointment Kishore Prieto APRN, [facility] Showing future appointments within next 90 days and meeting all other requirements [employer] documented in this encounter Plan of Treatment Not on file documented as of this encounter Visit Diagnoses Diagnosis Cervical radiculopathy Brachial neuritis or radiculitis nos documented in this encounter Additional Health Concerns Infection Onset Date Last Indicated Resolved Time COVID - 19 Confirmed 05/31/2022 05/31/2022 023 12:16 AM [employer] Respiratory Rule Out - RPA 02/26/2023 02/26/2023 0 02/26/2023 11:31 AM CDT COVID - 19 02/26/2023 02/26/2023 03/08/2023 12:1 6 AM CDT documented as of this encounter Care Teams Wardrobe Stylist Relationship Specialty Start Date End Date Jabier Peck MD #2 [facility] [address] [place] [address] PCP - General Family Medicine 06/22/20 01/16/24 Tad Mcintosh MD [address] [place] [id number] PCP - General Family Medicine 01/17/24 Srikanth Adrian MD #2 [facility] [address] [place] [address] [employer] Cardiovascular Disease - Cardiology 02/02/22 08/06/24 Gloria Martinez MD #2 [facility] [address] [place] [address] Consulting Physician Urology 04/30/24 documented as of this encounter
--- OUTSIDE RECORDS SUMMARY | 2025-01-10 15:51 | XMS_ITS | Clinical Summary ---
Author Organization [facility] Address [address] [place] [address] Care Team Providers Care Director Sales Training Name Role Phone Tad Mcintosh DO Primary [...] 07/17/2024 Assessment & Plan (07/17/2024 1:09 PM ENERGY PROJECT MANAGER): Continue increased hydration Avoid acidic foods and fluids for one more week Thrombophilia 01/25/2023 Palpitations 11/22/2022 Chest pain 07/31/2022 Essential hypertension 07/31/2022 Tongue lesion 04/28/2020 Assessment & Plan (06/26/2024 9:29 AM ENERGY PROJECT MANAGER): Has pain medication prescribed by Manasa Cortes at [facility] will confirm use of [place] after surgery Stop Eliquis for 5 days before and after Excision of left lateral and right lateral tongue lesions with repair Risks and complications: Anesthesia, bleeding, infection, benign versus malignant pathology, recurrence of lesion, injury to arteries, nerves and veins, scarring and need for further treatment Assessment & Plan (04/28/2020 1:41 PM ENERGY PROJECT MANAGER): Speak to [facility] about smoothing out right first [...] week Assessment & Plan (04/28/2020 1:41 PM ENERGY PROJECT MANAGER): Speak to [facility] about smoothing out right first [...] (04/18/2019): Added automatically from request for surgery [id number] Hematochezia 03/04/2019 Overview (03/04/2019): Added automatically from request for surgery [id number] Family history of colon cancer 03/04/2019 Overview (03/04/2019): Added automatically from request for surgery [id number] 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 [place] level is in process. Will hold at [...] recommended Assessment & Plan (07/08/2019 3:43 PM ENERGY PROJECT MANAGER): Healthy, low carbohydrate lifestyle and exercise for [...] hydration Assessment & Plan (08/10/2017 1:23 PM ENERGY PROJECT MANAGER): s/p Right inferior parathyroidectomy - 08/10/2016 pre [...] renal Assessment & Plan (05/01/2017 10:36 PM ENERGY PROJECT MANAGER): s/p Right inferior parathyroidectomy - 08/10/2016 pre [...] future Assessment & Plan (08/10/2017 1:24 PM ENERGY PROJECT MANAGER): Recheck levels Assessment & Plan (12/17/2016 8:01 AM CDT): Recheck levels Type 2 diabetes mellitus wit h stage 3 chronic kidney disease, with long-term current use of insulin 12/11/2016 Assessment & Plan (07/08/2019 3:42 PM ENERGY PROJECT MANAGER): A1c 5.5% Jun 2019 on no medications. [...] needed. Assessment & Plan (08/10/2017 1:26 PM ENERGY PROJECT MANAGER): - A1c today 5.5 % - due [...] months. Assessment & Plan (05/01/2017 10:36 PM ENERGY PROJECT MANAGER): - reviewed BS log - BS well [...] statin. Assessment & Plan (08/10/2017 1:23 PM ENERGY PROJECT MANAGER): On statin therapy - advised to increase physical activity - advised low fat/chol diet and avoid greasy and junk food Assessment & Plan (05/01/2017 10:37 PM ENERGY PROJECT MANAGER): On statin therapy - advised to increase [...] activity Assessment & Plan (08/10/2017 1:24 PM ENERGY PROJECT MANAGER): BP well controlled, chronic At goal advised [...] f/u with him Explained the risk of fci MAK and encourage use of CPAP or [...] quit smoking so they can encourage you. 911 Telecommunicator referral placed. 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 Assessment & Plan (10/16/2019 11:40 AM [...] greens, fat-free milk, cottage cheese, nuts like ilcczxx-bqwwuto-jgsytmq, protein bars with 10-15 g of protein [...] discussed. Assessment & Plan (05/01/2017 10:37 PM ENERGY PROJECT MANAGER): Obesity is improving with treatment. Discussed the [...] time. Assessment & Plan (05/01/2017 10:37 PM ENERGY PROJECT MANAGER): Hypertension is improving with treatment. Continue current [...] kidney disease) stage 3, GFR 30-59 ml/min ([facility]) Rheems poisoning Headache, tension-type Sleep apnea patient had [...] Date Smoking Tobacco: Every Day Cigarettes 0.3 43.6 Started: 06/18/1981 Smokeless Tobacco: Never Tobacco Cessation:Ready [...] on file Legal Sex Male 5:22 PM ENERGY PROJECT MANAGER Gender Identity Not on file Sexual Orientation Not on file Obstetrics History Last Filed Vital Signs Vital Sign Reading Time Taken Comments Blood Pressure 136/84 07/10/2024 4:54 PM ENERGY PROJECT MANAGER Pulse 62 07/10/2024 4:54 PM ENERGY PROJECT MANAGER Temperature 36.4 C (97.5 F) 07/10/2024 4:54 PM ENERGY PROJECT MANAGER Respiratory Rate 16 07/10/2024 4:54 PM ENERGY PROJECT MANAGER Oxygen Saturation 97% 07/10/2024 4:54 PM ENERGY PROJECT MANAGER Inhaled Oxygen Concentration - - Weight 105.8 kg (233 lb 4 oz) 07/10/2024 10:09 A M ENERGY PROJECT MANAGER Height 175.3 cm (5' 9) 07/10/2024 10:09 AM ENERGY PROJECT MANAGER Body Mass Index 34.44 07/10/2024 10:09 AM ENERGY PROJECT MANAGER Plan of Treatment Health Maintenance Due Date [...] - 2023-2 5 season) 2024 09/11/2020, 08/21/2020 eGFR 04/19/2024 04/19/2023, 09/17, 12/30/2019, Additional history exists Lipid Panel 06/20/2024 06/20/2023, 02/16, 08/21/2022, Additional history exists Influenza Vaccine (#1) 2025 3, 02/24/2022, 08/01/2021, Additional history exists DTaP/Tdap/Td Vaccine (2 - Td or Tdap) 02/26/2029 02/26/2019 Medical Devices Implanted Type Area Shop Welder Device Identifier Shelf Expiration Date Model / Serial / Lot SideStep Angio-Seal Vip 6fr Closere Device [id number] - [id number] Implanted:Qty: 1 on 10/12/2022 by Eliel Ortiz MD at [facility] Other - see comments SideStep 03/17/2023 [id number] / / [id number] [employer] [id number] 4mm 44mm Compression Headless Foot Ankle Screw Bone - [id number] Implanted:Qty: 1 on 04/25/2019 by Chidi Rios DPM at [facility] Right: Toes [employer] [id number] / / [employer] [place] Ezm 03-27-10 Easyclip Si 2mm [id number] Monocortical Superelastic Reamer - [id number] Implanted:Qty: 1 on 04/25/2019 by Chidi Rios DPM at [facility] Right: Toes [employer] [place] 11/16/2023 EZM 03-27-10 / / [id number] [employer] [place] Ezm 03-27-10 Easyclip Si 2mm [id number] Monocortical Superelastic Reamer - [id number] Implanted:Qty: 1 on 04/25/2019 by Chidi Rios DPM at [facility] Right: Toes [employer] [place] 11/16/2023 EZM 10-10 / / [id number] Toe Tac Xpress Hammertoe Fixation System Implanted:Qty: 2 on 04/25/2019 by Chidi Rios DPM at [facility] Right: Toes [employer] [id number] 05/27/2021 [id number] / [id number] / [id number] [place] Wire Implanted:Qty: 1 on 04/25/2019 by Chidi Rios DPM at [facility] Right: Toes [employer] 07/18/2028 [id number] / / [id number] Procedures Procedure Name Priority Date/Time Associated Diagnosis Comments EGFR STAT 04/19/2023 3:53 PM CDT HEMOGLOBIN A1C Routine 12/13/2019 2:55 PM CDT LIPID PANEL Routine 05/17/2018 2:25 PM ENERGY PROJECT MANAGER Type 2 diabetes mellitus with hyperglycemia, with long-term current use of insulin (HCC) from Last 3 Months or Most Recently Relevant to Health Maintenance Results * eGFR (04/19/2023 3:53 PM CDT) eGFR 51 mL/min/1. 73 m2 [facility] ([place]) Comment: Interpretive Data Reference Interval Normal >/= [...] BLOOD ORDERABLE S Final Result [facility]) 1 [facility] Department [place] [address] * (ABNORMAL) Hemoglobin A1c (12/13/2019 2:55 PM CDT) Blood specimen (specimen) 12/13/2019 2:55 PM CDT Narrative [facility] - 12/13/2019 2:55 PM CDT Results in labs Historical Provider LAB BLOOD ORDERABLES Becky l Result [place], [place] [phone] * (ABNORMAL) Lipid panel (05/17/2018 2:25 PM ENERGY PROJECT MANAGER) Cholesterol 159 30 - 199 mg/dL CERNER [...] (EVER) Blood specimen (specimen) 05/17/2018 2:25 PM ENERGY PROJECT MANAGER 05/17/2018 5:15 PM ENERGY PROJECT MANAGER Narrative [facility] ([place]) - 05/17/2018 6:14 PM ENERGY PROJECT MANAGER Tori Sims MD LAB BLOOD ORDERABLE S Final Result [facility] ([place]) 1 [facility] Department [place] [address] from Last 3 Months or Most Recently Relevant to Health Maintenance Insurance IDPA [facility] MEDICARE ADVANTAGE MEDICARE [facility] MEDICARE ADVANTAGE [facility] MEDICARE ADVANTAGE [facility]PA [facility] MEDICARE ADVANTAGE Advance Directives For more information, please contact: [phone] * Full Code (Latest Code Status on File) Date Activated Date Inactivated Comments 10/12/2022 2:12 PM 10/12/2022 10:46 PM * Full Code Date Activated Date Inactivated Comments 09/24/2017 9:04 PM 09/30/2017 5:22 PM Care Teams Director Sales Training Relationship Specialty Start Date End Date Tad Mcintosh DO [address] [place] [address] PCP - General Family Medicine 06/26/24
--- OUTSIDE RECORDS SUMMARY | 2025-01-10 15:51 | XMS_ITS | Encounter Summary ---
Author Organization [facility] Address [address] [place] [address] Phone Care Team Providers Care Supply Chain Tech Name Role Phone Jabier Peck MD Primary Care Provider [phone] Srikanth Adrian MD Unavailable Tad Romero MD Primary Care Provider [phone] Gloria Martinez MD Unavailable [phone] Encounter Details Date Type Department Care Team (Late st Contact Info) Description 01/04/2023 Telephone [facility] Medical/Surgical 3 Surge Waiver [address] [place] [address] Jabier Peck MD #[address] [address] Social History Tobacco Use Types Packs/Day Years [...] CDT Gender Identity Male 05/03/2023 12:44 PM GEEK SQUAD MANAGER Sexual Orientation Lesbian or Wolff 05/03/2023 12 :44 PM GEEK SQUAD MANAGER documented as of this encounter Miscellaneous [...] documented as of this encounter Care Teams Supply Chain Tech Relationship Specialty Start Date End Date Jabier Peck MD #[address] [address] PCP - General Family Medicine 06/22/20 01/16/24 Tad Mcintosh MD [address] [place] [address] PCP - General Family Medicine 01/17/24 Srikanth Adrian MD #2 [facility] [address] [place] [address] Safety Tech Cardiovascular Disease - Cardiology 02/02/22 08/06/24 Gloria Martinez MD [facility] [address] [address] Consulting Physician Urology 04/30/24 documented as of this encounter
--- OUTSIDE RECORDS SUMMARY | 2025-01-10 15:51 | XMS_ITS | Referral Summary ---
Author Organization [facility] Address [address] [place] [address] Care Team Providers Care Hardness Tester Name Role Phone Tad Mcintosh DO Primary [...] 07/17/2024 Assessment & Plan (07/17/2024 1:09 PM FARM SERVICE ADVISER): Continue increased hydration Avoid acidic foods and fluids for one more week Thrombophilia 01/25/2023 Palpitations 11/22/2022 Chest pain 07/31/2022 Essential hypertension 07/31/2022 Tongue lesion 04/28/2020 Assessment & Plan (06/26/2024 9:29 AM FARM SERVICE ADVISER): Has pain medication prescribed by Manasa Cortes at [facility] will confirm use of [place] after surgery Stop Eliquis for 5 days before and after Excision of left lateral and right lateral tongue lesions with repair Risks and complications: Anesthesia, bleeding, infection, benign versus malignant pathology, recurrence of lesion, injury to arteries, nerves and veins, scarring and need for further treatment Assessment & Plan (04/28/2020 1:41 PM FARM SERVICE ADVISER): Speak to [facility] about smoothing out right first [...] week Assessment & Plan (04/28/2020 1:41 PM FARM SERVICE ADVISER): Speak to [facility] about smoothing out right first [...] (04/18/2019): Added automatically from request for surgery [id number] Hematochezia 03/04/2019 Overview (03/04/2019): Added automatically from request for surgery [id number] Family history of colon cancer 03/04/2019 Overview (03/04/2019): Added automatically from request for surgery [id number] 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 [place] level is in process. Will hold at [...] recommended Assessment & Plan (07/08/2019 3:43 PM FARM SERVICE ADVISER): Healthy, low carbohydrate lifestyle and exercise for [...] hydration Assessment & Plan (08/10/2017 1:23 PM FARM SERVICE ADVISER): s/p Right inferior parathyroidectomy - 08/10/2016 pre [...] renal Assessment & Plan (05/01/2017 10:36 PM FARM SERVICE ADVISER): s/p Right inferior parathyroidectomy - 08/10/2016 pre [...] future Assessment & Plan (08/10/2017 1:24 PM FARM SERVICE ADVISER): Recheck levels Assessment & Plan (12/17/2016 8:01 AM CDT): Recheck levels Type 2 diabetes mellitus wit h stage 3 chronic kidney disease, with long-term current use of insulin 12/11/2016 Assessment & Plan (07/08/2019 3:42 PM FARM SERVICE ADVISER): A1c 5.5% Jun 2019 on no medications. [...] needed. Assessment & Plan (08/10/2017 1:26 PM FARM SERVICE ADVISER): - A1c today 5.5 % - due [...] months. Assessment & Plan (05/01/2017 10:36 PM FARM SERVICE ADVISER): - reviewed BS log - BS well [...] statin. Assessment & Plan (08/10/2017 1:23 PM FARM SERVICE ADVISER): On statin therapy - advised to increase physical activity - advised low fat/chol diet and avoid greasy and junk food Assessment & Plan (05/01/2017 10:37 PM FARM SERVICE ADVISER): On statin therapy - advised to increase [...] activity Assessment & Plan (08/10/2017 1:24 PM FARM SERVICE ADVISER): BP well controlled, chronic At goal advised [...] f/u with him Explained the risk of chcf MAK and encourage use of CPAP or [...] quit smoking so they can encourage you. Talent Agent referral placed. Class 2 severe obesity due t o excess calories with serious comorbidity and body mass index (BMI) of 37.0 to 37.9 in adult 08/16/2012 Overview (09/22/2016): Obesity Assessment & Plan (12/25/2019 1:57 PM CDT): Healthy, low carbohydrate lifestyle and exercise for 150min/week recommended Referral for manager acquisition placed. Assessment & Plan (10/16/2019 11:40 AM [...] greens, fat-free milk, cottage cheese, nuts like tqnkmln-glxzlxd-uivzfed, protein bars with 10-15 g of protein [...] discussed. Assessment & Plan (05/01/2017 10:37 PM FARM SERVICE ADVISER): Obesity is improving with treatment. Discussed the [...] time. Assessment & Plan (05/01/2017 10:37 PM FARM SERVICE ADVISER): Hypertension is improving with treatment. Continue current [...] on file Legal Sex Male 5:22 PM FARM SERVICE ADVISER Gender Identity Not on file Sexual Orientation Not on file Last Filed Vital Signs Vital Sign Reading Time Taken Comments Blood Pressure 136/84 07/10/2024 4:54 PM FARM SERVICE ADVISER Pulse 62 07/10/2024 4:54 PM FARM SERVICE ADVISER Temperature 36.4 C (97.5 F) 07/10/2024 4:54 PM FARM SERVICE ADVISER Respiratory Rate 16 07/10/2024 4:54 PM FARM SERVICE ADVISER Oxygen Saturation 97% 07/10/2024 4:54 PM FARM SERVICE ADVISER Inhaled Oxygen Concentration - - Weight 105.8 kg (233 lb 4 oz) 07/10/2024 10:09 A M FARM SERVICE ADVISER Height 175.3 cm (5' 9) 07/10/2024 10:09 AM FARM SERVICE ADVISER Body Mass Index 34.44 07/10/2024 10:09 AM FARM SERVICE ADVISER Plan of Treatment Not on file Medical Devices Implanted Type Area Clinical Science Liaison Device Identifier Shelf Expiration Date Model / Serial / Lot Simple Car Wash Angio-Seal Vip 6fr Closere Device [id number] - [id number] Implanted:Qty: 1 on 10/12/2022 by Eliel Ortiz MD at [facility] Other - see comments [employer] Kalin 03/17/2023 [id number] / / [id number] [employer] [id number] 4mm 44mm Compression Headless Foot Ankle Screw Bone - [id number] Implanted:Qty: 1 on 04/25/2019 by Chidi Rios DPM at [facility] Right: Toes [employer] [id number] / / [employer] [place] Ezm 03-27-10 Easyclip Si 2mm [id number] Monocortical Superelastic Reamer - [id number] Implanted:Qty: 1 on 04/25/2019 by Chidi Rios DPM at [facility] Right: Toes [employer] [place] 11/16/2023 EZIvett 03-27-10 / / [id number] [employer] [place] Ezm 10-10-10 Easyclip Si 2mm [id number] Monocortical Superelastic Reamer - [id number] Implanted:Qty: 1 on 04/25/2019 by Chidi Rios DPM at [facility] Right: Toes [employer] [place] 11/16/2023 EZM 10-10-10 / / [id number] Toe Tac Xpress Hammertoe Fixation System Implanted:Qty: 2 on 04/25/2019 by Chidi Rios DPM at [facility] Right: Toes [employer] [id number] 05/27/2021 [id number] / [id number] / [id number] [employer] Wire Implanted:Qty: 1 on 04/25/2019 by Chidi Rios DPM at [facility] Right: Toes [employer] 07/18/2028 [id number] / / [id number] Procedures Procedure Name Priority Date/Time Associated Diagnosis Comments EGFR STAT 04/19/2023 3:53 PM CDT HEMOGLOBIN A1C Routine 12/13/2019 2:55 PM CDT LIPID PANEL Routine 05/17/2018 2:25 PM FARM SERVICE ADVISER Type 2 diabetes mellitus with hyperglycemia, with long-term current use of insulin (HCC) from Last 3 Months or Most Recently Relevant to Health Maintenance Results * eGFR (04/19/2023 3:53 PM CDT) eGFR 51 mL/min/1. 73 m2 [facility] ([place]) Comment: Interpretive Data Reference Interval Normal >/= [...] ORDERABLE S Final Result Performing Organization Address City/[facility]/ZIP Co de Phone Number [facility] ([place]) 1 [facility] Department [place] [address] * (ABNORMAL) Hemoglobin A1c (12/13/2019 2:55 PM CDT) Blood specimen (specimen) 12/13/2019 2:55 PM CDT Narrative [facility] - 12/13/2019 2:55 PM CDT Results in labs Aliza Carlson MD LAB BLOOD ORDERABLES Becky l Result Performing Organization Address [facility]/ZIP Co de Phone Number [place], [place] [phone] * (ABNORMAL) Lipid panel (05/17/2018 2:25 PM FARM SERVICE ADVISER) Cholesterol 159 30 - 199 mg/dL JANUARY [...] 2018. Triglycerides 143 <=149 mg/dL [facility] ([place]) Comment: Interpretive Data Ages < or = [...] (EVER) Blood specimen (specimen) 05/17/2018 2:25 PM FARM SERVICE ADVISER 05/17/2018 5:15 PM FARM SERVICE ADVISER Narrative [facility] ([place]) - 05/17/2018 6:14 PM FARM SERVICE ADVISER Cleoja Levi Sims MD LAB BLOOD ORDERABLE S Final Result [facility] ([place]) 1 [facility] Department [place] [address] from Last 3 Months or Most Recently Relevant to Health Maintenance Insurance IDPA [facility] MEDICARE [facility]ANTAGE [facility] Address: [address] [address] [place] [address] MEDICARE [facility] MEDICARE ADVANTAGE [facility] Address: [address] [address] [place] [address] IDPA [facility] MEDICARE ADVANTAGE Advance Directives For more information, please contact: [phone] * Full Code (Latest Code Status on File) Date Activated Date Inactivated Comments 10/12/2022 2:12 PM 10/12/2022 10:46 PM * Full Code Date Activated Date Inactivated Comments 09/24/2017 9:04 PM 09/30/2017 5:22 PM Care Teams Hardness Tester Relationship Specialty Start Date End Date Tad Mcintosh DO [address] [place] [address] PCP - General Family Medicine 1/9/25
--- NOTE | 2025-01-10 16:00 | ECG_ITS ---
Test Date: 2025-01-10 16:17:52 Measurements Intervals [place] Rate: 61 P: 46 WI: 169 QRS: 56 QRSD: 113 T: 46 QT: 435 QTc: 441 Interpretive Statements SINUS RHYTHM NONSPECIFIC ST-T WAVE CHANGES Compared to ECG 05/13/2024 12:15:[address]-T WAVE CHANGES Electronically Signed On 01-11-2025 14:14:35 CDT by Gabe Victor M.D.
[2025-01-10 16:13] LABS: Hematocrit 42.3 % (40.0-54.0); Hemoglobin 15.2 g/dL (14.0-18.0); Immature Granulocyte Percent A 0.3 % (0.0-0.0); Lymphocytes Absolute Auto 2.63 K/mm3 (1.10-4.50); Mean Corpuscular HGB Conc 35.9 g/dL (32-36); Mean Corpuscular Hemoglobin 32.1 pg (27.0-31.0); Mean Corpuscular Volume 89.2 fL (78.0-102.0); Nucleated Red Blood Cells Absolute Auto 0.00 K/mm3 (0.00-0.00); Nucleated Red Blood Cells Perc 0.0 % (0-0.0); Platelet Count Result 238 K/mm3 (150-420); Red Blood Count 4.74 M/mm3 (4.70-6.10); White Blood Count 11.6 K/mm3 (4.8-10.8)
[2025-01-10 16:25] LABS: Alanine Aminotransferase 49 U/L (6-50); Albumin Level 4.5 g/dL (3.5-5.1); Alkaline Phosphatase 157 U/L (38-126); Anion Gap 9 mmol/L (4-12); Aspartate Amino Transferase 28 U/L (17-59); Bilirubin,Total 0.7 mg/dL (0.2-1.3); Blood Urea Nitrogen 14 mg/dL (9-20); Calcium 9.3 mg/dL (8.4-10.2); Carbon Dioxide 24 mmol/L (22-30); Chloride 98 mmol/L (98-107); Estimated Glomerular Filt Rate 54; Glucose 496 mg/dL (65-110); Osmolality Calculated 294 mOsm/kg (285-295); Potassium 3.4 mmol/L (3.4-5.0); Sodium 131 mmol/L (137-145); Total Protein 7.1 g/dL (6.3-8.2)
[2025-01-10 16:27] LABS: INR 0.9; Partial Thromboplastin Time 45.5 Sec (23.9-30.70); Prothrombin Time 10.1 Seconds (9.50-12.1)
--- OUTSIDE RECORDS SUMMARY | 2025-01-10 16:28 | XMS_ITS | Encounter Summary ---
Author Organization [facility] Address [address] [place] [address] Phone Care Team Providers Care Produce Assistant Name Role Phone Srikanth Adrian MD Unavailable Tad Romero MD Primary Care Provider Gloria Martinez MD Unavailable [phone] Reason for Visit * Reason Comments Medication Refill Encounter Details Date Type Department Care Team (Late Contact Info) Description 05/28/[address] [facility] Medical Group - Family Medicine [facility] [address] [place] [address] Jabier Peck MD #[address] [address] Medication Refill Social History Tobacco Use Types [...] Gender Identity Male 05/03/2023 12:44 PM LABORER WOOD PRESERVING PLANT Sexual Orientation Lesbian or Wolff 05/03/2023 12 :44 PM LABORER WOOD PRESERVING PLANT documented as of this encounter Miscellaneous Notes * Telephone Encounter - Francine Soto RN - 05/28/2024 11:10 AM CST PCP: Tad Mcintosh MD RER WOOD PRESERVING PLANT documented in this encounter Plan of Treatment Not on file documented as of this encounter Visit Diagnoses Not on filedocumented in this encounter Care Teams Produce Assistant Relationship Specialty Start Date End Date Tad Mcintosh MD [address] [place] [address] PCP - General Family Medicine 01/17/24 Srikanth Adrian MD Tile Layer Supervisor Cardiovascular Disease - Cardiology 02/02/22 08/06/24 Gloria Martinez MD #[address] [address] Consulting Physician Urology 04/30/24 documented as of this encounter
--- OUTSIDE RECORDS SUMMARY | 2025-01-10 16:28 | XMS_ITS | Encounter Summary ---
Author Organization [facility] Address [address] [place] [address] Phone Care Team Providers Care Director Hris Name Role Phone Jabier Peck MD Primary Care Provider [phone] Srikanth Adrian MD Unavailable Tad Romero MD Primary Care Provider [phone] Gloria Martinez MD Unavailable [phone] Reason for Visit * Reason Comments Medication Refill Encounter Details Date Type Department Care Team (Late st Contact Info) Description 06/16/2021 Refill [facility] Medical Group - Family [facility] [address] [place] [address] Jabier Peck MD #[address] [address] Medication Refill Social History Tobacco Use Types [...] CDT Gender Identity Male 05/03/2023 12:44 PM HEEL COVERER MACHINE OPERATOR Sexual Orientation Lesbian or Wolff 05/03/2023 12 :44 PM HEEL COVERER MACHINE OPERATOR COVID-19 Exposure Response Date Recorded In the last month, have you been in contact with someone who was confirmed or suspected to have Coronavirus / COVID-19? No / Unsure 06/16/2021 1:10 PM HEEL COVERER MACHINE OPERATOR documented as of this encounter [...] [place] 06/22/20 Office Visit Kishore Prieto APRN, SENIOR TABLEAU DEVELOPER [facility] Showing recent visits within past 365 days and meeting all other requirements Future Appointments Date Type Provider Dept 08/01/21 Appointment Jabier Peck MD [facility] Showing future appointments within next 90 days and meeting all other requirements COVERER MACHINE OPERATOR documented in this encounter Plan of Treatment Not on file documented as of this encounter Visit Diagnoses Diagnosis Cervical radiculopathy Brachial neuritis or radiculitis nos documented in this encounter Additional Health Concerns Infection Onset Date Last Indicated Resolved Time COVID - 19 Confirmed 05/31/2022 05/31/2022 023 12:16 AM HEEL COVERER MACHINE OPERATOR Respiratory Rule Out - RPA 02/26/2023 02/26/2023 0 02/26/2023 11:31 AM CDT COVID - 19 02/26/2023 02/26/2023 03/08/2023 12:1 6 AM CDT documented as of this encounter Care Teams Director Hris Relationship Specialty Start Date End Date Jabier Peck MD #2 [facility] [address] [place] [address] PCP - General Family Medicine 06/22/20 01/16/24 Tad Mcintosh MD [address] [place] [address] PCP - General Family Medicine 01/17/24 Srikanth Adrian MD #2 [facility] [address] [place] [address] Anthropology Faculty Member Cardiovascular Disease - Cardiology 02/02/22 08/06/24 Gloria Martinez MD #2 [facility] [address] [place] [address] Consulting Physician Urology 04/30/24 documented as of this encounter
--- OUTSIDE RECORDS SUMMARY | 2025-01-10 16:28 | XMS_ITS | Encounter Summary ---
Author Organization [facility] Address [address] [place] [address] Phone Care Team Providers Care Air Export Agent Name Role Phone Jabier Peck MD Primary Care Provider [phone] Srikanth Adrian MD Unavailable Tad Romero MD Primary Care Provider [phone] Gloria Martinez MD Unavailable [phone] Reason for Visit * Reason Comments Medication Refill Encounter Details Date Type Department Care Team (Late st Contact Info) Description 12/11/2021 Refill [facility] #2 [place] [address] Jabier Peck MD #[address] [address] Medication Refill Social History Tobacco Use Types [...] CDT Gender Identity Male 05/03/2023 12:44 PM MEMORIAL MARKER DESIGNER Sexual Orientation Lesbian or Wolff 05/03/2023 12 :44 PM MEMORIAL MARKER DESIGNER COVID-19 Exposure Response Date Recorded In [...] 03/16/21 Office Visit Kishore Prieto APRN, [place] [facility] [place] Showing recent visits within past 365 days and meeting all other requirements Future Appointments Date Type Provider Dept 12/13/21 Appointment Kishore Prieto APRN, [facility] [facility] [place] Showing future appointments within next 90 days and meeting all other requirements documented in this encounter Plan of Treatment Not on file documented as of this encounter Visit Diagnoses Diagnosis Cervical radiculopathy Brachial neuritis or radiculitis nos documented in this encounter Additional Health Concerns Infection Onset Date Last Indicated Resolved Time COVID - 19 Confirmed 05/31/2022 05/31/2022 023 12:16 AM MEMORIAL MARKER DESIGNER Respiratory Rule Out - RPA 02/26/2023 02/26/2023 0 02/26/2023 11:31 AM CDT COVID - 19 02/26/2023 02/26/2023 03/08/2023 12:1 6 AM CDT documented as of this encounter Care Teams Air Export Agent Relationship Specialty Start Date End Date Jabier Peck MD #2 [facility] [address] [place] [address] PCP - General Family Medicine 06/22/20 01/16/24 Tad Mcintosh MD [address] [address] PCP - General Family Medicine 01/17/24 Srikanth Adrian MD #2 [facility] [address] [place] [address] Medical Record Retrieval Specialist Cardiovascular Disease - Cardiology 02/02/22 08/06/24 Gloria Martinez MD #2 [facility] [address] [place] [address] Consulting Physician Urology 04/30/24 documented as of this encounter
--- OUTSIDE RECORDS SUMMARY | 2025-01-10 16:28 | XMS_ITS | Encounter Summary ---
Author Organization [facility] Address [address] [place] [address] Phone Care Team Providers Care Market Development Director Name Role Phone Jabier Peck MD Primary Care Provider [phone] Srikanth Adrian MD Unavailable Tad Romero MD Primary Care Provider [phone] Gloria Martinez MD Unavailable [phone] Reason for Visit * Reason Comments Medication Refill Encounter Details Date Type Department Care Team (Late st Contact Info) Description 10/21/2021 Refill [facility] #2 [place] [address] Jabier Peck MD #[address] [address] Medication Refill Social History Tobacco Use Types [...] CDT Gender Identity Male 05/03/2023 12:44 PM LAWYER PROBATE Sexual Orientation Lesbian or Wolff 05/03/2023 12 :44 PM LAWYER PROBATE documented as of this encounter Miscellaneous Notes [...] 19 Confirmed 05/31/2022 05/31/202206/20/ 023 12:16 AM LAWYER PROBATE Respiratory Rule Out - RPA 02/26/2023 02/26/2023 0 02/26/2023 11:31 AM CDT COVID - 19 02/26/2023 02/26/2023 03/08/2023 12:1 6 AM CDT documented as of this encounter Care Teams Market Development Director Relationship Specialty Start Date End Date Jabier Peck MD #2 [facility] [address] [place] [address] PCP - General Family Medicine 06/22/20 01/16/24 Tad Mcintosh MD [address] [place] [address] PCP - General Family Medicine 01/17/24 Srikanth Adrian MD #2 [facility] [address] [place] [address] Professor Of Education Cardiovascular Disease - Cardiology 02/02/22 08/06/24 Gloria Martinez MD #2 [facility] [address] [place] [address] Consulting Physician Urology 04/30/24 documented as of this encounter
--- OUTSIDE RECORDS SUMMARY | 2025-01-10 16:28 | XMS_ITS | Encounter Summary ---
Author Organization [facility] Address [address] [place] [address] Phone Care Team Providers Care Crabbing Machine Operator Name Role Phone Jabier Peck MD Primary Care Provider [phone] Srikanth Adrian MD Unavailable Tad Romero MD Primary Care Provider [phone] Gloria Martinez MD Unavailable [phone] Reason for Visit * Reason Comments Medication Refill Encounter Details Date Type Department Care Team (Late st Contact Info) Description 02/22/2022 Refill [facility] #2 [place] [address] Jabier Peck MD #[address] [address] Medication Refill Social History Tobacco Use Types [...] CDT Gender Identity Male 05/03/2023 12:44 PM LEATHER PRODUCTION ARTISAN Sexual Orientation Lesbian or Wolff 05/03/2023 12 :44 PM LEATHER PRODUCTION ARTISAN COVID-19 Exposure Response Date Recorded In the [...] 19 Confirmed 05/31/2022 05/31/2022 023 12:16 AM LEATHER PRODUCTION ARTISAN Respiratory Rule Out - RPA 02/26/2023 02/26/2023 0 02/26/2023 11:31 AM CDT COVID - 19 02/26/2023 02/26/2023 03/08/2023 12:1 6 AM CDT documented as of this encounter Care Teams Crabbing Machine Operator Relationship Specialty Start Date End Date Jabier Peck MD #2 [facility] [address] [place] [address] PCP - General Family Medicine 06/22/20 01/16/24 Tad Mcintosh MD [address] [place] [address] PCP - General Family Medicine 01/17/24 Srikanth Adrian MD #2 [facility] [address] [place] [address] Warp Drawer Cardiovascular Disease - Cardiology 02/02/22 08/06/24 Gloria Martinez MD #2 [facility] [address] [place] [address] Consulting Physician Urology 04/30/24 documented as of this encounter
--- OUTSIDE RECORDS SUMMARY | 2025-01-10 16:28 | XMS_ITS | Encounter Summary ---
Author Organization [facility] Address [address] [place] [address] Phone Care Team Providers Care Foley Artist Name Role Phone Srikanth Adrian MD Unavailable Tad Romero MD Primary Care Provider [phone] Gloria Martinez MD Unavailable [phone] Reason for Visit * Reason Comments Medication Refill Encounter Details Date Type Department Care Team (Late Contact Info) Description 07/26/2024 Refill [facility] #2 [place] [address] Jabier Peck MD #[address] [address] Medication Refill Social History Tobacco Use Types [...] CDT Gender Identity Male 05/03/2023 12:44 PM CAR MANAGER Sexual Orientation Lesbian or Wolff 05/03/2023 12 :44 PM CAR MANAGER documented as of this encounter Miscellaneous Notes * Telephone Encounter - Sheyla Burgess RN - 07/28/2024 10:39 AM CAR MANAGER Changed PCPs to Tad Mcintosh MD MANAGER * Telephone Encounter - Sheyla Burgess RN - 07/28/2024 10:39 AM CAR MANAGER Now seeing Tda Mcintosh MD MANAGER * Telephone Encounter - Sheyla Burgess RN - 07/28/2024 10:38 AM CAR MANAGER Needs OV. Last seen April 2023. MANAGER documented in this encounter Plan of Treatment Not on file documented as of this encounter Visit Diagnoses Not on filedocumented in this encounter Care Teams Foley Artist Relationship Specialty Start Date End Date Tad Mcintosh MD [address] [place] [address] PCP - General Family Medicine 01/17/24 Srikanth Adrian MD Gamemaster Cardiovascular Disease - Cardiology 02/02/22 08/06/24 Gloria Martinez MD #[address] [address] Consulting Physician Urology 04/30/24 documented as of this encounter
--- OUTSIDE RECORDS SUMMARY | 2025-01-10 16:28 | XMS_ITS | Encounter Summary ---
Author Organization [facility] Address [address] [place] [address] Phone Care Team Providers Care Central Office Repairer Name Role Phone Jabier Peck MD Primary Care Provider [phone] Srikanth Adrian MD Unavailable Tad Romero MD Primary Care Provider [phone] Gloria Martinez MD Unavailable [phone] Reason for Visit * Reason Onset Date Comments Medication Refill 10/27/2021 Encounter Details Date Type Department Care Team (Late st Contact Info) Description 10/27/2021 Refill [facility] - Family Medicine [facility] #2 [place] [address] Jabier Peck MD #[address] [address] Medication Refill Social History Tobacco Use Types [...] CDT Gender Identity Male 05/03/2023 12:44 PM CLOTH BLEACHING RANGE OPERATOR CHIEF Sexual Orientation Lesbian or Wolff 05/03/2023 12 :44 PM CLOTH BLEACHING RANGE OPERATOR CHIEF documented as of this encounter Miscellaneous [...] [place] 11/16/20 Office Visit Kishore Prieto APRN, RICA[facility] Showing recent visits within past [...] 19 Confirmed 05/31/2022 05/31/2022 023 12:16 AM CLOTH BLEACHING RANGE OPERATOR CHIEF Respiratory Rule Out - RPA 02/26/2023 02/26/2023 0 02/26/2023 11:31 AM CDT COVID - 19 02/26/2023 02/26/2023 03/08/2023 12:1 6 AM CDT documented as of this encounter Care Teams Central Office Repairer Relationship Specialty Start Date End Date Jabier Peck MD #2 [facility] [address] [place] [address] PCP - General Family Medicine 06/22/20 01/16/24 Tad Mcintosh MD [address] [place] [address] PCP - General Family Medicine 01/17/24 Srikanth Adrian MD #2 [facility] [address] [place] [address] Transportation Security Screener Cardiovascular Disease - Cardiology 02/02/22 08/06/24 Gloria Martinez MD #2 [facility] [address] [place] [address] Consulting Physician Urology 04/30/24 documented as of this encounter
--- OUTSIDE RECORDS SUMMARY | 2025-01-10 16:28 | XMS_ITS | Encounter Summary ---
Author Organization [facility] Address [address] [place] [address] Phone Care Team Providers Care Professional Healthcare Representative Name Role Phone Jabier Kwok MD Primary Care Provider [phone] Srikanth Adrian MD Unavailable Tad Romero MD Primary Care Provider [phone] lGoria Martinez MD Unavailable [phone] Reason for Visit * Reason Comments Medication Refill Encounter Details Date Type Department Care Team (Late st Contact Info) Description 01/23/2022 Refill [facility] #2 [place] [address] Jabier Kwok MD #[address] [address] Medication Refill Social History Tobacco Use Types [...] CDT Gender Identity Male 05/03/2023 12:44 PM DOOR PULLER Sexual Orientation Lesbian or Wolff 05/03/2023 12 :44 PM DOOR PULLER COVID-19 Exposure Response Date Recorded In the [...] 19 Confirmed 05/31/2022 05/31/2022 023 12:16 AM DOOR PULLER Respiratory Rule Out - RPA 02/26/2023 02/26/2023 0 02/26/2023 11:31 AM CDT COVID - 19 02/26/2023 02/26/2023 03/08/2023 12:1 6 AM CDT documented as of this encounter Care Teams Professional Healthcare Representative Relationship Specialty Start Date End Date Jabier Kwok MD #[address] [address] PCP - General Family Medicine 06/22/20 01/16/24 Tad Mcintosh MD [address] [place] [address] PCP - General Family Medicine 01/17/24 Srikanth Adrian MD #2 [facility] [address] [place] [address] Fitness Services Manager Cardiovascular Disease - Cardiology 02/02/22 08/06/24 Gloria Martinez MD #2 [facility] [address] [place] [address] Consulting Physician Urology 04/30/24 documented as of this encounter
--- OUTSIDE RECORDS SUMMARY | 2025-01-10 16:28 | XMS_ITS | Encounter Summary ---
Author Organization [facility] Address [address] [place] [address] Phone Care Team Providers Care Entertainer Or Variety Artist Name Role Phone Jabier Peck MD Primary Care Provider [phone] Srikanth Adrian MD Unavailable Tad Romero MD Primary Care Provider [phone] Gloria Martinez MD Unavailable [phone] Reason for Visit * Reason Comments Medication Refill Encounter Details Date Type Department Care Team (Late st Contact Info) Description 08/19/2021 Refill [facility] #2 [place] [address] Jabier Peck MD #[address] [address] Medication Refill Social History Tobacco Use Types [...] Identity Male 05/03/2023 12:44 PM DIRECTOR OF INSTITUTIONAL GIVING Sexual Orientation Lesbian or Wolff 05/03/2023 12 :44 PM DIRECTOR OF INSTITUTIONAL GIVING COVID-19 Exposure Response Date Recorded In the last month, have you been in contact with someone who was confirmed or suspected to have Coronavirus / COVID-19? No / Unsure 08/01/2021 1:35 PM DIRECTOR OF INSTITUTIONAL GIVING documented as of this encounter Miscellaneous Notes [...] [place] 08/20/20 Telemedicine Kishore Prieto APRN, RICHARD [facility] [place] Showing recent visits within past 365 days and meeting all other requirements Future Appointments Date Type Provider Dept 10/31/21 Appointment Jabier Peck MD [facility] Showing future appointments within next 90 days and meeting all other requirements CTOR OF INSTITUTIONAL GIVING documented in this encounter Plan of Treatment Not on file documented as of this encounter Visit Diagnoses Diagnosis Cervical radiculopathy Brachial neuritis or radiculitis nos documented in this encounter Additional Health Concerns Infection Onset Date Last Indicated Resolved Time COVID - 19 Confirmed 05/31/2022 05/31/2022 023 12:16 AM DIRECTOR OF INSTITUTIONAL GIVING Respiratory Rule Out - RPA 02/26/2023 02/26/2023 0 02/26/2023 11:31 AM CDT COVID - 19 02/26/2023 02/26/2023 03/08/2023 12:1 6 AM CDT documented as of this encounter Care Teams Entertainer Or Variety Artist Relationship Specialty Start Date End Date Jabier Peck MD #2 [facility] [address] [place] [address] PCP - General Family Medicine 06/22/20 01/16/24 Tad Mcintosh MD [address] [place] [address] PCP - General Family Medicine 01/17/24 Srikanth Adrian MD #2 [facility] [address] [place] [address] Packaging Line Attendant Cardiovascular Disease - Cardiology 02/02/22 08/06/24 Gloria Martinez MD #2 [facility] [address] [place] [address] Consulting Physician Urology 04/30/24 documented as of this encounter
--- OUTSIDE RECORDS SUMMARY | 2025-01-10 16:28 | XMS_ITS | Encounter Summary ---
Author Organization [facility] Address [address] [place] [address] Phone Care Team Providers Care Proj Engineer Name Role Phone Jabier Peck MD Primary Care Provider [phone] Srikanth Adrian MD Unavailable Tad Romero MD Primary Care Provider [phone] Gloria Martinez MD Unavailable [phone] Reason for Visit * Reason Onset Date Comments Medication Refill 12/28/2021 Encounter Details Date Type Department Care Team (Late st Contact Info) Description 12/28/2021 Refill [facility] Medical Group - Family Medicine [facility] #2 [place] [address] Jabier Peck MD #[address] [address] Medication Refill Social History Tobacco Use Types [...] CDT Gender Identity Male 05/03/2023 12:44 PM POLICY MANAGER Sexual Orientation Lesbian or Wolff 05/03/2023 12 :44 PM POLICY MANAGER COVID-19 Exposure Response Date Recorded In [...] 19 Confirmed 05/31/2022 05/31/2022 023 12:16 AM POLICY MANAGER Respiratory Rule Out - RPA 02/26/2023 02/26/2023 0 02/26/2023 11:31 AM CDT COVID - 19 02/26/2023 02/26/2023 03/08/2023 12:1 6 AM CDT documented as of this encounter Care Teams Proj Engineer Relationship Specialty Start Date End Date Jabier Peck MD #[address] [address] PCP - General Family Medicine 06/22/20 01/16/24 Tad Mcintosh MD [address] [place] [address] PCP - General Family Medicine 01/17/24 Srikanth Adrian MD #[address] [address] Sizing Machine Operator Cardiovascular Disease - Cardiology 02/02/22 08/06/24 Gloria Martinez MD #2 [facility] [address] [place] [address] Consulting Physician Urology 04/30/24 documented as of this encounter
--- OUTSIDE RECORDS SUMMARY | 2025-01-10 16:28 | XMS_ITS | Encounter Summary ---
Author Organization [facility] Address [address] [place] [address] Phone Care Team Providers Care Flower Cheniller Name Role Phone Jabier Peck MD Primary Care Provider [phone] Srikanth Adrian MD Unavailable Tad Romero MD Primary Care Provider [phone] Gloria Martinez MD Unavailable [phone] Reason for Visit * Reason Comments Medication Refill Encounter Details Date Type Department Care Team (Late st Contact Info) Description 11/23/2021 Refill [facility] #2 [place] [address] Jabier Peck MD #[address] [address] Medication Refill Social History Tobacco Use Types [...] CDT Gender Identity Male 05/03/2023 12:44 PM FURNITURE FINISHER APPRENTICE Sexual Orientation Lesbian or Wolff 05/03/2023 12 :44 PM FURNITURE FINISHER APPRENTICE documented as of this encounter Miscellaneous Notes [...] [facility] 03/16/21 Office Visit Kishore Prieto, FISHER SEAL, INSTRUCTOR DECORATING [facility] Showing recent visits within past 365 [...] 19 Confirmed 05/31/2022 05/31/2022 023 12:16 AM FURNITURE FINISHER APPRENTICE Respiratory Rule Out - RPA 02/26/2023 02/26/2023 0 02/26/2023 11:31 AM CDT COVID - 19 02/26/2023 02/26/2023 03/08/2023 12:1 6 AM CDT documented as of this encounter Care Teams Flower Cheniller Relationship Specialty Start Date End Date Jabier Peck MD #[address] [address] PCP - General Family Medicine 06/22/20 01/16/24 Tad Mcintosh MD [address] [place] [address] PCP - General Family Medicine 01/17/24 Srikanth Adrian MD #2 [facility] [address] [place] [address] Art Department Head Cardiovascular Disease - Cardiology 02/02/22 08/06/24 Gloria Martinez MD #2 [facility] [address] [place] [address] Consulting Physician Urology 04/30/24 documented as of this encounter
--- OUTSIDE RECORDS SUMMARY | 2025-01-10 16:28 | XMS_ITS | Clinical Summary ---
Author Organization [facility] Address [address] [address] Phone Care Team Providers Care Administrative Analyst Name Role Phone Tad Mcintosh MD Primary Care Provider [phone] Gloria Martinez MD Unavailable [phone] Allergies Active Allergy Reactions Criticality Noted Date [...] Type Department Care Team Description 10/21/2024 [facility] [place] [address] Jabier Peck MD Medication Refill 10/20/2024 [facility] [place] [address] Jabier Peck MD Medication Refill from Last [...] CDT Gender Identity Male 05/03/2023 12:44 PM DIRECT MARKETING EXECUTIVE Sexual Orientation Lesbian or Wolff 05/03/2023 12 :44 PM DIRECT MARKETING EXECUTIVE Last Filed Vital Signs Vital Sign Reading Time Taken Comments Blood Pressure 129/82 03/11/2024 2:22 PM CDT Pulse 71 03/11/2024 2:22 PM CDT Temperature 36.5 C (97.7 F) 05/11/2023 1:15 PM DIRECT MARKETING EXECUTIVE Respiratory Rate 18 03/11/2024 2:22 PM CDT [...] CHEST SCREENING WO Routine 05/10/2022 2:52 PM DIRECT MARKETING EXECUTIVE Personal history of nicotine dependence PODIATRY CONSULT 08/18/2021 12:0 0 AM DIRECT MARKETING EXECUTIVE from Last 3 Months or Most Recently Relevant to Health Maintenance Results * (ABNORMAL) HEMOGLOBIN A1C W/ ESTIMATED GLUCOSE (02/26/2023 12:32 PM CDT) Pathologist [facility] HGB-A1C 7.1(H) 4.0 - 6.0 % 02/26/2023 1:18 PM CDT [facility] Est Average Glucose 157.1 mg/dL 02/26/2023 1:18 PM CDT [facility] Blood Venipuncture / Unknown 02/26/2023 12:32 PM CDT 02/26/2023 12:58 PM CDT Narrative [facility] - 02/26/2023 1:18 PM CDT HEMOGLOBIN A1C: DIABETIC PATIENTS: WELL-CONTROLLED: 6.2 - 7.0 INTERMEDIATE WELL-CONTROLLED: 7.0 - 9.0 POORLY-CONTROLLED: >9.0 us Kishore Prieto APRN, MULTIPLE WIRE SAWYER CHEMISTRY ORDERA BLES Final Result [facility] #1 [place] [address] * PSA SCREEN (02/26/2023 12:32 PM CDT) Pathologist [facility] PSA SCREEN, TOTAL 0.60 <4.00 ng/mL 02/26/2023 1:45 PM CDT [facility] Blood Venipuncture / Unknown 02/26/2023 12:32 PM CDT 02/26/2023 12:57 PM CDT Narrative [facility] - 02/26/2023 1:45 PM CDT The ESTHETICIAN/SPA COORDINATOR Total PSA assay is a Chemiluminescent Microparticle Immunoassay (CMIA) for the quantitative determination of total PSA (both free PSA and PSA complexed to agixq-[id number]) in human serum. us Kishore Prieto APRN, CNP CHEMISTRY ORDERA BLES Final Result [facility] [address]1 [place] [address] * (ABNORMAL) CMP (COMPREHENSIVE METABOLIC PANEL) (02/26/2023 12:32 PM CDT) SODIUM 140 136 - 145 mmol/L 02/26/2023 1:22 PM CDT [facility] POTASSIUM 3.8 3.5 - 5.1 mmol/L 02/26/2023 1:22 PM CDT [facility] CHLORIDE 106 98 - 107 mmol/L 02/26/2023 1:22 PM CDT [facility] CO2, VENOUS 25 22 - 30 mmol/L 02/26/2023 1:22 PM CDT [facility] ANION GAP 12.8 <18.0 mmol/L 02/26/2023 1:22 PM CDT [facility] GLUCOSE 141(H) 70 - 99 mg/dL 02/26/2023 1:22 PM CDT [facility] BUN 17 8 - 26 mg/dL 02/26/2023 1:22 PM CDT [facility] CREATININE, BLOOD 1.49(H) 0.70 - 1.30 mg/dL 02/26/2023 1:22 PM CDT [facility] BUN/CREATININE RATIO 11(L) 12 - 20 ratio 02/26/2023 1:22 PM CDT [facility] TOTAL PROTEIN 6.7 6.3 - 8.2 g/dL 02/26/2023 1:22 PM CDT [facility] ALBUMIN 3.8 3.5 - 5.0 g/dL 02/26/2023 1:22 PM CDT [facility] A/G RATIO 1.3 1.0 - 2.2 02/26/2023 1:22 PM CDT [facility] CALCIUM 9.3 8.7 - 10.5 mg/dL 02/26/2023 1:22 PM CDT [facility] T BILI 0.4 0.2 - 1.2 mg/dL 02/26/2023 1:22 PM CDT [facility] SGOT (AST) 20 5 - 34 U/L 02/26/2023 1:22 PM CDT [facility] SGPT (ALT) 37 0 - 55 U/L 02/26/2023 1:22 PM CDT [facility] ALKALINE PHOSPHATASE 102 40 - 150 U/L 02/26/2023 1:22 PM CDT [facility] IS THE PATIENT REQUIRED TO BE FASTING? No 02/26/2023 1:22 PM CDT [facility] GFR, ESTIMATED 55(L) >=60 02/26/2023 1:22 PM CDT [facility] Comment: Creatinine Clearance is the preferred criteria for selecting drug dose adjustments in renally impaired patients. The GFR is provided as additional pertinent clinical information. GFR is reported in mL/min/1.73 sq m. Calculation based on the Chronic Kidney Disease Epidemiology Collaboration (CKD- EPI) equation refit without adjustment for race. GFR, EST. 60 >=60 023 1:22 PM CDT [facility] GFR, EST. NONAFRICAN 49(L) >=60 02/26/2023 1:22 PM CDT [facility] Blood Venipuncture / Unknown 02/26/2023 12:32 PM CDT 02/26/2023 12:57 PM CDT us Kishore Prieto PAY CLERK, MULTIPLE WIRE SAWYER CHEMISTRY ORDERA BLES Final Result [facility] #1 [facility] [place] [address] * CT CHEST SCREENING WO (05/10/2022 2:52 PM DIRECT MARKETING EXECUTIVE) Anatomical Region Laterality Modality Chest N/A Computed Tomogra phy 05/12/2022 9:10 AM DIRECT MARKETING EXECUTIVE Impressions 05/12/2022 9:13 AM DIRECT MARKETING EXECUTIVE IMPRESSION: 1. Background of mild pulmonary emphysema. 2. Scattered tiny bilateral pulmonary nodules. No suspicious nodularity. 3. Mild coronary artery calcifications. 4. Additional findings as above. Lung-RADS v1.1 category 2: Benign appearance or behavior. Recommendation: Low dose CT of chest in 12 months. Narrative 05/12/2022 9:13 AM DIRECT MARKETING EXECUTIVE EXAM DESCRIPTION: CT CHEST SCREENING WO REASON [...] by Mallorie Gomez M.D. TW: Report ID: [id number] Reading Location: [place] [address] Procedure Note Mallorie Gomez MD - 05/12/2022 [...] Mallorie Gomez M.D. TW: TW Report ID: [id number] Reading Location: [id number] IMPRESSION: 1. Background of mild pulmonary emphysema. 2. Scattered tiny bilateral pulmonary nodules. No suspicious nodularity. 3. Mild coronary artery calcifications. 4. Additional findings as above. Lung-RADS v1.1 category 2: Benign appearance or behavior. Recommendation: Low dose CT of chest in 12 months. us Kishore Prieto APRN, RICHARD IMG CT ORDERABLE S Final Result * PODIATRY CONSULT (08/18/2021 12:00 AM DIRECT MARKETING EXECUTIVE) 08/18/2021 us Not On File Provider GENERIC [...] measures to stabilize the patient. Care Teams Administrative Analyst Relationship Specialty Start Date End Date Tad Mcintosh MD [address] [place] [address] PCP - General Family Medicine 01/17/24 Gloria Martinez MD #[address] [address] Consulting Physician Urology 04/30/24
--- OUTSIDE RECORDS SUMMARY | 2025-01-10 16:28 | XMS_ITS | Encounter Summary ---
Author Organization [facility] Address [address] [place] [address] Phone Care Team Providers Care Advance Seal Delivery System Maintainer Name Role Phone Jabier Peck MD Primary Care Provider [phone] Srikanth Adrian MD Unavailable Tad Romero MD Primary Care Provider [phone] Gloria Martinez MD Unavailable [phone] Reason for Visit * Reason Comments Medication Refill Encounter Details Date Type Department Care Team (Late st Contact Info) Description 02/24/2022 Refill [facility]2 [place] [address] Jabier Peck MD #[address] [address] Medication Refill Social History Tobacco Use Types [...] Gender Identity Male 05/03/2023 12:44 PM POULTRY FARMER MEAT Sexual Orientation Lesbian or Wolff 05/03/2023 12 :44 PM POULTRY FARMER MEAT COVID-19 Exposure Response Date Recorded In the [...] 03/16/21 Office Visit Kishore Prieto APRN, RICHARD [facility] Showing recent visits within past 365 [...] 19 Confirmed 05/31/2022 05/31/2022 023 12:16 AM POULTRY FARMER MEAT Respiratory Rule Out - RPA 02/26/2023 02/26/2023 0 02/26/2023 11:31 AM CDT COVID - 19 02/26/2023 02/26/2023 03/08/2023 12:1 6 AM CDT documented as of this encounter Care Teams Advance Seal Delivery System Maintainer Relationship Specialty Start Date End Date Jabier Peck MD #2 [facility] [address] [place] [address] PCP - General Family Medicine 06/22/20 01/16/24 Tad Mcintosh MD [address] [place] [address] PCP - General Family Medicine 01/17/24 Srikanth Adrian MD #2 [facility] [address] [place] [address] Housekeeper Cardiovascular Disease - Cardiology 02/02/22 08/06/24 Gloria Martinez MD #2 [facility] [address] [place] [address] Consulting Physician Urology 04/30/24 documented as of this encounter
--- OUTSIDE RECORDS SUMMARY | 2025-01-10 16:28 | XMS_ITS | Encounter Summary ---
Author Organization [facility] Address [address] [place] [address] Phone Care Team Providers Care Auto Mechanic Supervisor Name Role Phone Jabier Peck MD Primary Care Provider [phone] Srikanth Adrian MD Unavailable Tad Romero MD Primary Care Provider [phone] Gloria Martinez MD Unavailable [phone] Reason for Visit * Reason Comments Medication Refill Encounter Details Date Type Department Care Team (Late st Contact Info) Description 09/22/2021 Refill [facility] #2 [place] [address] Jabier Peck MD #[address] [address] Medication Refill Social History Tobacco Use Types [...] CDT Gender Identity Male 05/03/2023 12:44 PM PARACHUTE RIGGER Sexual Orientation Lesbian or Wolff 05/03/2023 12 :44 PM PARACHUTE RIGGER COVID-19 Exposure Response Date Recorded In the [...] 19 Confirmed 05/31/2022 05/31/2022 023 12:16 AM PARACHUTE RIGGER Respiratory Rule Out - RPA 02/26/2023 02/26/2023 0 02/26/2023 11:31 AM CDT COVID - 19 02/26/2023 02/26/2023 03/08/2023 12:1 6 AM CDT documented as of this encounter Care Teams Auto Mechanic Supervisor Relationship Specialty Start Date End Date Jabier Peck MD #2 [facility] [address] [place] [address] PCP - General Family Medicine 06/22/20 01/16/24 Tad Mcintosh MD [address] [place] [address] PCP - General Family Medicine 01/17/24 Srikanth Adrian MD #2 [facility] [address] [place] [address] Facility Coordinator Cardiovascular Disease - Cardiology 02/02/22 08/06/24 Gloria Martinez MD #2 [facility] [address] [place] [address] Consulting Physician Urology 04/30/24 documented as of this encounter
--- OUTSIDE RECORDS SUMMARY | 2025-01-10 16:29 | XMS_ITS | Encounter Summary ---
Author Organization [facility] Address [address] [place] [address] Phone Care Team Providers Care B2B Sales Manager Name Role Phone Jabier Peck MD Primary Care Provider [phone] Srikanth Adrian MD Unavailable Tad Romero MD Primary Care Provider [phone] Gloria Martinez MD Unavailable [phone] Reason for Visit * Reason Comments Medication Refill Encounter Details Date Type Department Care Team (Late st Contact Info) Description 03/19/2023 Refill [facility] #2 [place] [address] Jabier Peck MD #[address] [address] Medication Refill Social History Tobacco Use Types [...] CDT Gender Identity Male 05/03/2023 12:44 PM CORPORATE EXECUTIVE Sexual Orientation Lesbian or Wolff 05/03/2023 12 :44 PM CORPORATE EXECUTIVE COVID-19 Exposure Response Date Recorded In the [...] [place] 11/30/22 Telemedicine Kishore Prieto APRN, RICHARD [facility] [place] 08/21/22 Office Visit Jabier Peck MD [facility] 07/20/22 Office Visit Gerri Rocha MD [facility] 05/03/22 Telemedicine Jabier Peck MD [facility] [place] Showing recent visits within past 365 [...] on filedocumented in this encounter Care Teams B2B Sales Manager Relationship Specialty Start Date End Date Jabier Peck MD #2 [facility] [address] [place] [address] PCP - General Family Medicine 06/22/20 01/16/24 Tad Mcintosh MD [address] [place] [address] PCP - General Family Medicine 01/17/24 Srikanth Adrian MD #2 [facility] [address] [place] [address] Kennel Staff Member Cardiovascular Disease - Cardiology 02/02/22 08/06/24 Gloria Martinez MD #2 [facility] [address] [place] [address] Consulting Physician Urology 04/30/24 documented as of this encounter
--- OUTSIDE RECORDS SUMMARY | 2025-01-10 16:29 | XMS_ITS | Encounter Summary ---
Author Organization [facility] Address [address] [place] [address] Phone Care Team Providers Care Yacht Rigger Name Role Phone Jabier Peck MD Primary Care Provider [phone] Srikanth Adrian MD Unavailable Tad Romero MD Primary Care Provider [phone] Gloria Martinez MD Unavailable [phone] Reason for Visit * Reason Comments Medication Refill Encounter Details Date Type Department Care Team (Late st Contact Info) Description 07/20/2021 Refill [facility] #2 [place] [address] Jabier Peck MD #[address] [address] Medication Refill Social History Tobacco Use Types [...] CDT Gender Identity Male 05/03/2023 12:44 PM PHYSICIAN INTERNIST Sexual Orientation Lesbian or Wolff 05/03/2023 12 :44 PM PHYSICIAN INTERNIST COVID-19 Exposure Response Date Recorded In the last month, have you been in contact with someone who was confirmed or suspected to have Coronavirus / COVID-19? No / Unsure 07/14/2021 12:17 PM PHYSICIAN INTERNIST documented as of this encounter Miscellaneous Notes [...] Visit Kishore Prieto APRN, RICHARD [facility] 11/16/20 Office Visit Kishore Prieto APRN, RICHARD [facility] 10/20/20 Office Visit Jabier Peck MD [facility] 08/20/20 Telemedicine Kishore Prieto APRN, RICHARD [facility] 08/06/20 Telemedicine Kishore Prieto APRN, MARINE PROPULSION TECHNICIAN [facility] Showing recent visits within past 365 days and meeting all other requirements Future Appointments Date Type Provider Dept 08/01/21 Appointment Jabier Peck MD [facility] Showing future appointments within next 90 days and meeting all other requirements ICIAN INTERNIST documented in this encounter Plan of Treatment Not on file documented as of this encounter Visit Diagnoses Diagnosis Cervical radiculopathy Brachial neuritis or radiculitis nos documented in this encounter Additional Health Concerns Infection Onset Date Last Indicated Resolved Time COVID - 19 Confirmed 05/31/2022 05/31/2022 023 12:16 AM PHYSICIAN INTERNIST Respiratory Rule Out - RPA 02/26/2023 02/26/2023 0 02/26/2023 11:31 AM CDT COVID - 19 02/26/2023 02/26/2023 03/08/2023 12:1 6 AM CDT documented as of this encounter Care Teams Yacht Rigger Relationship Specialty Start Date End Date Jabier Peck MD #2 [facility] [address] [place] [address] PCP - General Family Medicine 06/22/20 01/16/24 Tad Mcintosh MD [address] [place] [address] PCP - General Family Medicine 01/17/24 Srikanth Adrian MD #2 [facility] [address] [place] [address] Taxi Dancer Cardiovascular Disease - Cardiology 02/02/22 08/06/24 Gloria Martinez MD #2 [facility] [address] [place] [address] Consulting Physician Urology 04/30/24 documented as of this encounter
--- OUTSIDE RECORDS SUMMARY | 2025-01-10 16:29 | XMS_ITS | Encounter Summary ---
Author Organization [facility] Address [address] [place] [address] Phone Care Team Providers Care Body Welder Name Role Phone Srikanth Adrian MD Unavailable Tad Romero MD Primary Care Provider Gloria Martinez MD Unavailable [phone] Reason for Visit * Reason Comments Medication Refill Encounter Details Date Type Department Care Team (Late Contact Info) Description 03/29/2024 Refill [facility] - Family Medicine [facility] #2 [place] [address] Kishore Prieto APRN, PLATE KEEPER #[address] [address] Medication Refill Social History Tobacco Use Types [...] CDT Gender Identity Male 05/03/2023 12:44 PM COMIC BOOK DESIGNER Sexual Orientation Lesbian or Wolff 05/03/2023 12 :44 PM COMIC BOOK DESIGNER documented as of this encounter Miscellaneous Notes * Telephone Encounter - Cristine Preston RN - 03/30/2024 1:22 PM CDT PCP: Tad Mcintosh MD documented in this encounter Plan of Treatment Not on file documented as of this encounter Visit Diagnoses Not on filedocumented in this encounter Care Teams Body Welder Relationship Specialty Start Date End Date Tad Mcintosh MD [address] [place] [address] PCP - General Family Medicine 01/17/24 Srikanth Adrian MD Lumber Racker Cardiovascular Disease - Cardiology 02/02/22 08/06/24 Gloria Martinez MD #[address] [address] Consulting Physician Urology 04/30/24 documented as of this encounter
--- OUTSIDE RECORDS SUMMARY | 2025-01-10 16:29 | XMS_ITS | Encounter Summary ---
Author Organization [facility] Address [address] [place] [address] Phone Care Team Providers Care Sheet Roller Operator Name Role Phone Jabier Peck MD Primary Care Provider [phone] Srikanth Adrian MD Unavailable Tad Romero MD Primary Care Provider [phone] Gloria Martinez MD Unavailable [phone] Encounter Details Date Type Department Care Team (Late st Contact Info) Description 03/21/2023 Telephone [facility] [address] [place] [address] Jabier Peck MD #[address] [address] Social History Tobacco Use Types Packs/Day Years [...] CDT Gender Identity Male 05/03/2023 12:44 PM DENTAL TECH Sexual Orientation Lesbian or Wolff 05/03/2023 12 :44 PM DENTAL TECH COVID-19 Exposure Response Date Recorded In [...] on filedocumented in this encounter Care Teams Sheet Roller Operator Relationship Specialty Start Date End Date Jabier Peck MD #2 [facility] [address] [place] [address] PCP - General Family Medicine 06/22/20 01/16/24 Tad Mcintosh MD [address] [place] [address] PCP - General Family Medicine 01/17/24 Srikanth Adrian MD #2 [facility] [address] [place] [address] Processor Solid Propellant Cardiovascular Disease - Cardiology 02/02/22 08/06/24 Gloria Martinez MD #2 [facility] [address] [place] [address] Consulting Physician Urology 04/30/24 documented as of this encounter
--- OUTSIDE RECORDS SUMMARY | 2025-01-10 16:29 | XMS_ITS | Encounter Summary ---
Author Organization [facility] Address [address] [place] [address] Phone Care Team Providers Care Laundry Marker Supervisor Name Role Phone Jabier Peck MD Primary Care Provider [phone] Srikanth Adrian MD Unavailable Tad Romero MD Primary Care Provider [phone] Gloria Martinez MD Unavailable [phone] Reason for Visit * Reason Comments Medication Refill Encounter Details Date Type Department Care Team (Late st Contact Info) Description 01/06/2021 Refill [facility] - Family Medicine [facility] #2 [place] [id number] Jt Morillo MD [address] [place] [address] Medication Refill Social History Tobacco Use Types [...] CDT Gender Identity Male 05/03/2023 12:44 PM BIOMEDICAL ENGINEERING PROFESSOR Sexual Orientation Lesbian or Wolff 05/03/2023 12 :44 PM BIOMEDICAL ENGINEERING PROFESSOR documented as of this encounter Miscellaneous [...] 19 Confirmed 05/31/2022 05/31/2022 023 12:16 AM BIOMEDICAL ENGINEERING PROFESSOR Respiratory Rule Out - RPA 02/26/2023 02/26/2023 0 02/26/2023 11:31 AM CDT COVID - 19 02/26/2023 02/26/2023 03/08/2023 12:1 6 AM CDT documented as of this encounter Care Teams Laundry Marker Supervisor Relationship Specialty Start Date End Date Jabier Peck MD #2 [facility] [address] [place] [address] PCP - General Family Medicine 06/22/20 01/16/24 Tad Mcintosh MD [address] [place] [address] PCP - General Family Medicine 01/17/24 Srikanth Adrian MD #2 [facility] [address] [place] [address] Coagulating Bath Operator Cardiovascular Disease - Cardiology 02/02/22 08/06/24 Gloria Martinez MD #2 [facility] [address] [place] [address] Consulting Physician Urology 04/30/24 documented as of this encounter
--- OUTSIDE RECORDS SUMMARY | 2025-01-10 16:29 | XMS_ITS | Encounter Summary ---
Author Organization [facility] Address [address] [facility] [place] [address] Phone Care Team Providers Care Industrial Safety And Health Manager Name Role Phone Jabier Peck MD Primary Care Provider [phone] Srikanth Adrian MD Unavailable Tad Romero MD Primary Care Provider [phone] Gloria Martienz MD Unavailable [phone] Reason for Visit * Reason Comments Medication Refill Encounter Details Date Type Department Care Team (Late st Contact Info) Description 07/22/2021 Refill [facility] [address] [place] [address] Jt Morillo MD [address] [place] [address] Medication Refill Social History Tobacco Use Types [...] CDT Gender Identity Male 05/03/2023 12:44 PM UPSET WELDING MACHINE OPERATOR Sexual Orientation Lesbian or Wolff 05/03/2023 12 :44 PM UPSET WELDING MACHINE OPERATOR COVID-19 Exposure Response Date Recorded In the last month, have you been in contact with someone who was confirmed or suspected to have Coronavirus / COVID-19? No / Unsure 07/14/2021 12:17 PM UPSET WELDING MACHINE OPERATOR documented as of this encounter Miscellaneous Notes * Telephone Encounter - Michelle Wharton RN - 07/22/2021 2:26 PM UPSET WELDING MACHINE OPERATOR Refilled Eliquis T WELDING MACHINE OPERATOR documented in this encounter Plan of Treatment Not on file documented as of this encounter Visit Diagnoses Diagnosis History of thrombophilia associated with MTHFR mutation documented in this encounter Additional Health Concerns Infection Onset Date Last Indicated Resolved Time COVID - 19 Confirmed 05/31/2022 05/31/2022 023 12:16 AM UPSET WELDING MACHINE OPERATOR Respiratory Rule Out - RPA 02/26/2023 02/26/2023 0 02/26/2023 11:31 AM CDT COVID - 19 02/26/2023 02/26/2023 03/08/2023 12:1 6 AM CDT documented as of this encounter Care Teams Industrial Safety And Health Manager Relationship Specialty Start Date End Date Jabier Peck MD #2 [facility] [address] [place] [address] PCP - General Family Medicine 06/22/20 01/16/24 Tad Mcintosh MD [address] [place] [address] PCP - General Family Medicine 01/17/24 Srikanth Adrian MD #2 [facility] [address] [place] [address] Microfilm Camera Operator Cardiovascular Disease - Cardiology 02/02/22 08/06/24 Gloria Martinez MD #2 [facility] [address] [place] [address] Consulting Physician Urology 04/30/24 documented as of this encounter
--- OUTSIDE RECORDS SUMMARY | 2025-01-10 16:29 | XMS_ITS | Encounter Summary ---
Author Organization [facility] Address [address] [place] [address] Phone Care Team Providers Care Stock Clerk Name Role Phone Jabier Peck MD Primary Care Provider [phone] Srikanth Adrian MD Unavailable Tad Romero MD Primary Care Provider [phone] Gloria Martinez MD Unavailable [phone] Reason for Visit * Reason Comments Medication Refill Encounter Details Date Type Department Care Team (Late st Contact Info) Description 04/13/2023 Refill [facility] #2 [place] [address] Jabier Peck MD #[address] [address] Medication Refill Social History Tobacco Use Types [...] CDT Gender Identity Male 05/03/2023 12:44 PM RAIL TRANSPORTATION OPERATOR Sexual Orientation Lesbian or Wolff 05/03/2023 12 :44 PM RAIL TRANSPORTATION OPERATOR documented as of this encounter Miscellaneous [...] nos documented in this encounter Care Teams Stock Clerk Relationship Specialty Start Date End Date Jabier Peck MD #2 [facility] [address] [place] [address] PCP - General Family Medicine 06/22/20 01/16/24 Tad Mcintohs MD [address] [place] [address] PCP - General Family Medicine 01/17/24 Srikanth Adrian MD #2 [facility] [address] [place] [address] Core Drilling Supervisor Cardiovascular Disease - Cardiology 02/02/22 08/06/24 Gloria Martinez MD #2 [facility] [address] [place] [address] Consulting Physician Urology 04/30/24 documented as of this encounter
--- OUTSIDE RECORDS SUMMARY | 2025-01-10 16:29 | XMS_ITS | Encounter Summary ---
Author Organization [facility] Address [address] [place] [address] Phone Care Team Providers Care Western Philosophy Professor Name Role Phone Jabier Peck MD Primary Care Provider [phone] Srikanth Adrian MD Unavailable Tad Romero MD Primary Care Provider Gloria Martinez MD Unavailable [phone] Reason for Visit * Reason Comments Medication Refill Encounter Details Date Type Department Care Team (Late st Contact Info) Description 12/07/2023 Refill [facility] #2 [place] [address] Jabier Peck MD #[address] [address] Medication Refill Social History Tobacco Use Types [...] Gender Identity Male 05/03/2023 12:44 PM METAL TRIMMER Sexual Orientation Lesbian or Wolff 05/03/2023 12 :44 PM METAL TRIMMER documented as of this encounter Miscellaneous Notes * Telephone Encounter - Sheyla Burgess RN - 12/07/2023 3:21 PM CDT Per nursing clinical judgement, provider to review and approve the medication(s) order(s) if appropriate. Requested Prescriptions Pending Prescriptions Disp Refills albuterol 108 (90 Base) MCG/ACT Aerosol Solution [Pharmacy Med Name: ALBUTEROL HFA 90 MCG INHALER (WY] 8.5 g Sig: TRANSFERRED: 06/15/23 -READ RX [...] [facility] 12/18/22 Telemedicine Jabier Peck MD [facility] Showing recent visits within past 365 days and meeting all other requirements Future Appointments No visits were found meeting these conditions. Showing future appointments within next 90 days and meeting all other requirements documented in this encounter Plan of Treatment Not on file documented as of this encounter Visit Diagnoses Not on filedocumented in this encounter Care Teams Western Philosophy Professor Relationship Specialty Start Date End Date Jabier Peck MD #2 [place] [address] PCP - General Family Medicine 06/22/20 01/16/24 Tad Mcintosh MD [address] [place] [address] PCP - General Family Medicine 01/17/24 Srikanth Adrian MD #[address] [address] Farm Equipment Mechanic Apprentice Cardiovascular Disease - Cardiology 02/02/22 08/06/24 Gloria Martinez MD #2 [facility] [address] [place] [address] Consulting Physician Urology 04/30/24 documented as of this encounter
--- OUTSIDE RECORDS SUMMARY | 2025-01-10 16:29 | XMS_ITS | Encounter Summary ---
Author Organization [facility] Address [address] [place] [address] Phone Care Team Providers Care Delivery Supervisor Name Role Phone Srikanth Adrian MD Unavailable Tad Romero MD Primary Care Provider Gloria Martinez MD Unavailable [phone] Reason for Visit * Reason Comments Medication Refill Encounter Details Date Type Department Care Team (Late Contact Info) Description 03/15/2024 Refill [facility] - Family Medicine [facility] #2 [place] [address] Kishore Prieto APRN, DEVELOPMENT MGR #[address] [address] Medication Refill Social History Tobacco Use Types [...] CDT Gender Identity Male 05/03/2023 12:44 PM JEWELRY CASTING MODEL MAKER APPRENTICE Sexual Orientation Lesbian or Wolff 05/03/2023 12 :44 PM JEWELRY CASTING MODEL MAKER APPRENTICE documented as of this encounter Miscellaneous Notes * Telephone Encounter - Francine Soto RN - 03/17/2024 12:59 PM CDT PCP Tad Mcintosh MD documented in this encounter Plan of Treatment Not on file documented as of this encounter Visit Diagnoses Not on filedocumented in this encounter Care Teams Delivery Supervisor Relationship Specialty Start Date End Date Tad Mcintosh MD [address] [place] [place] [address] PCP - General Family Medicine 01/17/24 Srikanth Adrian MD Pipe Out Worker Cardiovascular Disease - Cardiology 02/02/22 08/06/24 Gloria Martinez MD #[address] [address] Consulting Physician Urology 04/30/24 documented as of this encounter
--- OUTSIDE RECORDS SUMMARY | 2025-01-10 16:29 | XMS_ITS | Encounter Summary ---
Author Organization [facility] Address [address] [facility] [place] [address] Phone Care Team Providers Care Merchant Mill Utility Worker Name Role Phone Tad Mcintosh MD Primary Care Provider Gloria Martinez MD Unavailable [phone] Reason for Visit * Reason Comments Medication Refill Encounter Details Date Type Department Care Team (Late st Contact Info) Description 10/21/2024 Refill [facility] - Family Medicine [facility] #2 [place] [address] Jabier Peck MD #[address] [address] Medication Refill Social History Tobacco Use Types [...] Gender Identity Male 05/03/2023 12:44 PM SENIOR PATIENT ACCOUNT REPRESENTATIVE Sexual Orientation Lesbian or Wolff 05/03/2023 12 :44 PM SENIOR PATIENT ACCOUNT REPRESENTATIVE documented as of this encounter Miscellaneous Notes * Telephone Encounter - Francine Soto RN - 10/22/2024 9:04 AM CDT PCP: Tad Mcintosh MD documented in this encounter Plan of Treatment Not on file documented as of this encounter Visit Diagnoses Not on filedocumented in this encounter Care Teams Merchant Mill Utility Worker Relationship Specialty Start Date End Date Tad Mcintosh MD [address] [place] [address] PCP - General Family Medicine 01/17/24 Gloria Martinez MD #[address] [address] Consulting Physician Urology 04/30/24 documented as of this encounter
--- OUTSIDE RECORDS SUMMARY | 2025-01-10 16:29 | XMS_ITS ---
Author Name ABBY BUTLER Address [address] [place] [address] Phone [facility] Address [address] [place] [address] Phone Care Team Providers Care Color Printer Operator Name Role Phone ABBY BUTLER Unavailable ALLERGIES, ADVERSE REACTIONS AND ALERTS Allergy Name Allergy Date Allergy Status Allergy Severity Allergy Reaction NO KNOWN DRUG ALLERGIES PROBLEMS Problem Code Problem Description Problem Status Problem Da te Problem End Date 882175400-Eyolhrdnyjw tract congestion and cough Respiratory tract congestion and cough Current 04/28/2022 [id number]-Hozgoks disorder Bipolar disorder Chronic 04/28/2022 40510276-Mgvqfzicd emphysema Pulmonary emphysema Chronic 04/28/2022 10280442-Ikdbuo disease Kidney disease Chronic 04/28/2022 45581528-Bafvfdul mellitus Diabetes mellitus Chronic 04/28/2022 [id number]-Sethoc Asthma Chronic 04/28/2022 [id number]-Rmkckjglvoj sleep apnea syndrome Obstructive sleep apnea syndrome [...] ever smoked Sex: Male CARE TEAM INFORMATION Color Printer Operator Provider ID Role Location Phone ABBY BUTLER [id number] NURSE PRACTITIONER [address] [place] [address] INSURANCE PROVIDERS Payer Name Policy type / Coverage type Covered libertarian ID Policy [place] Medicaid [id number] SELF [facility] MEDICARE ADVANTAGE Private Health Insurance [id number] SELF
--- OUTSIDE RECORDS SUMMARY | 2025-01-10 16:29 | XMS_ITS | Encounter Summary ---
Author Organization [facility] Address [address] [place] [address] Phone Care Team Providers Care Class B Driver Name Role Phone Jabier Peck MD Primary Care Provider [phone] Srikanth Adrian MD Unavailable Tad Romero MD Primary Care Provider [phone] Gloria Martinez MD Unavailable [phone] Reason for Visit * Reason Comments Medication Refill Encounter Details Date Type Department Care Team (Late st Contact Info) Description 03/19/2023 Refill [facility] #2 [place] [address] Jabier Peck MD #[address] [address] Medication Refill Social History Tobacco Use Types [...] CDT Gender Identity Male 05/03/2023 12:44 PM FRONT OFFICE JAVA DEVELOPER Sexual Orientation Lesbian or Wolff 05/03/2023 12 :44 PM FRONT OFFICE JAVA DEVELOPER COVID-19 Exposure Response Date Recorded In the [...] [place] 11/30/22 Telemedicine Kishore Prieto APRN, [place] 08/21/22 Office Visit Jabier Peck MD [facility] 07/20/22 Office Visit Gerri Rocha MD [facility] 05/03/22 Telemedicine Jabier [facility]ck [facility] [...] unspecified documented in this encounter Care Teams Class B Driver Relationship Specialty Start Date End Date Jabier Peck MD #2 [facility] [address] [place] [address] PCP - General Family Medicine 06/22/20 01/16/24 Tad Mcintosh MD [address] [place] [address] PCP - General Family Medicine 01/17/24 Srikanth Adrian MD #2 [facility] [address] [place] [address] Manager Adult Cardiovascular Disease - Cardiology 02/02/22 08/06/24 Gloria Martinez MD #2 [facility] [address] [place] [address] Consulting Physician Urology 04/30/24 documented as of this encounter
--- OUTSIDE RECORDS SUMMARY | 2025-01-10 16:29 | XMS_ITS | Encounter Summary ---
Author Organization [facility] Address [address] [place] [address] Phone Care Team Providers Care Chain Builder Name Role Phone Jabier Peck MD Primary Care Provider [phone] Srikanth Adrian MD Unavailable Tad Romero MD Primary Care Provider [phone] Gloria Martinez MD Unavailable [phone] Reason for Visit * Reason Comments Medication Refill Encounter Details Date Type Department Care Team (Late st Contact Info) Description 05/14/2023 Refill [facility] #2 [place] [address] Jabier Peck MD #[address] [address] Medication Refill Social History Tobacco Use Types [...] CDT Gender Identity Male 05/03/2023 12:44 PM PREPARATION PLANT SUPERVISOR Sexual Orientation Lesbian or Wolff 05/03/2023 12 :44 PM PREPARATION PLANT SUPERVISOR documented as of this encounter Miscellaneous [...] 90 days and meeting all other requirements ARATION PLANT SUPERVISOR documented in this encounter Plan of Treatment Not on file documented as of this encounter Visit Diagnoses Not on filedocumented in this encounter Care Teams Chain Builder Relationship Specialty Start Date End Date Jabier Peck MD #2 [facility] [address] [place] [address] PCP - General Family Medicine 06/22/20 01/16/24 Tad Mcintosh MD [address] [place] [address] PCP - General Family Medicine 01/17/24 Srikanth Adrian MD #2 [facility] [address] [place] [address] Quiller Machine Fixer Cardiovascular Disease - Cardiology 02/02/22 08/06/24 Gloria Martinez MD #2 [facility] [address] [place] [address] Consulting Physician Urology 04/30/24 documented as of this encounter
--- OUTSIDE RECORDS SUMMARY | 2025-01-10 16:29 | XMS_ITS | Encounter Summary ---
Author Organization [facility] Address [address] [place] [address] Phone Care Team Providers Care Sales Relationship Manager Name Role Phone Jabier Peck MD Primary Care Provider [phone] Srikanth Adrian MD Unavailable Tad Romero MD Primary Care Provider [phone] Gloria Martinez MD Unavailable [phone] Reason for Visit * Reason Comments Medication Refill Encounter Details Date Type Department Care Team (Late st Contact Info) Description 02/02/2021 Refill [facility] - Family [facility] #2 [place] [address] Jabier Peck MD #[address] [address] Medication Refill Social History Tobacco Use Types [...] CDT Gender Identity Male 05/03/2023 12:44 PM REFINERY TECHNICIAN Sexual Orientation Lesbian or Wolff 05/03/2023 12 :44 PM REFINERY TECHNICIAN documented as of this encounter Miscellaneous [...] 19 Confirmed 05/31/2022 05/31/2022 023 12:16 AM REFINERY TECHNICIAN Respiratory Rule Out - RPA 02/26/2023 02/26/2023 0 02/26/2023 11:31 AM CDT COVID - 19 02/26/2023 02/26/2023 03/08/2023 12:1 6 AM CDT documented as of this encounter Care Teams Sales Relationship Manager Relationship Specialty Start Date End Date Jabier Peck MD #2 [facility] [address] [place] [address] PCP - General Family Medicine 06/22/20 01/16/24 Tad Mcintosh MD [address] [place] [address] PCP - General Family Medicine 01/17/24 Srikanth Adrian MD #2 [facility] [address] [place] [address] Cupola Melting Supervisor Cardiovascular Disease - Cardiology 02/02/22 08/06/24 Gloria Martinez MD #2 [facility] [address] [place] [address] Consulting Physician Urology 04/30/24 documented as of this encounter
--- OUTSIDE RECORDS SUMMARY | 2025-01-10 16:29 | XMS_ITS | Encounter Summary ---
Author Organization [facility] Address [address] [place] [address] Phone Care Team Providers Care Plastic Tool Maker Name Role Phone Srikanth Adrian MD Unavailable Tad Romero MD Primary Care Provider [phone] Gloria Martinez MD Unavailable [phone] Reason for Visit * Reason Comments Medication Refill Encounter Details Date Type Department Care Team (Late Contact Info) Description 07/03/2024 Refill [facility] #2 [place] [address] Jabier Peck MD #[address] [address] Medication Refill Social History Tobacco Use Types [...] CDT Gender Identity Male 05/03/2023 12:44 PM SIGN OUT CLERK Sexual Orientation Lesbian or Wolff 05/03/2023 12 :44 PM SIGN OUT CLERK documented as of this encounter Miscellaneous Notes * Telephone Encounter - Francine Soto RN - 07/04/2024 8:54 AM CST PCP: Tad Mcintosh MD OUT CLERK documented in this encounter Plan of Treatment Not on file documented as of this encounter Visit Diagnoses Not on filedocumented in this encounter Care Teams Plastic Tool Maker Relationship Specialty Start Date End Date Tad Mcintosh MD [address] [place] [address] PCP - General Family Medicine 01/17/24 Srikanth Adrian MD Key Person Cardiovascular Disease - Cardiology 02/02/22 08/06/24 Gloria Martinez MD #[address] [address] Consulting Physician Urology 04/30/24 documented as of this encounter
--- OUTSIDE RECORDS SUMMARY | 2025-01-10 16:29 | XMS_ITS | Encounter Summary ---
Author Organization [facility] Address [address] [place] [address] Phone Care Team Providers Care Freelance Art Director Name Role Phone Jabier Peck MD Primary Care Provider [phone] Srikanth Adrian MD Unavailable Tad Romero MD Primary Care Provider [phone] Gloria Martinez MD Unavailable [phone] Reason for Visit * Reason Comments Medication Refill Encounter Details Date Type Department Care Team (Late st Contact Info) Description 02/27/2023 Refill [facility] Family [facility] #2 [place] [address] Jabier Peck MD #[address] [address] Medication Refill Social History Tobacco Use Types [...] CDT Gender Identity Male 05/03/2023 12:44 PM STEAM TENDER Sexual Orientation Lesbian or Owlff 05/03/2023 12 :44 PM STEAM TENDER COVID-19 Exposure Response Date Recorded In [...] documented as of this encounter Care Teams Freelance Art Director Relationship Specialty Start Date End Date Jabier Peck MD #2 [facility] [address] [place] [address] PCP - General Family Medicine 06/22/20 01/16/24 Tad Mcintosh MD [address] [place] [address] PCP - General Family Medicine 01/17/24 Srikanth Adrian MD #2 [facility] [address] [place] [address] Student Life Vice President Cardiovascular Disease - Cardiology 02/02/22 08/06/24 Gloria Martinez MD #2 [facility] [address] [place] [address] Consulting Physician Urology 04/30/24 documented as of this encounter
--- OUTSIDE RECORDS SUMMARY | 2025-01-10 16:29 | XMS_ITS | Clinical Summary ---
Author Organization [facility] Address [address] [place] [address] Care Team Providers Care Tents Assembler Name Role Phone Jabier Peck MD MPH Primary Care Provider [phone] Allergies Active Allergy Reactions Criticality Noted Date [...] specimen (specimen) Venous blood / Unknown 12/30/2021 [facility] Provider LAB BLOOD ORDERABLES Becky l Result from Last 3 Months or Most Recently Relevant to Health Maintenance Insurance U[employer] Medicare Medicaid [place] Care Teams Tents Assembler Relationship Specialty Start Date End Date Jabier Peck MD MPH [address] [address] PCP - General Family Medicine 09/13/21
--- OUTSIDE RECORDS SUMMARY | 2025-01-10 16:29 | XMS_ITS | Encounter Summary ---
Author Organization [facility] Address [address] [place] [address] Phone Care Team Providers Care Pencils Washer Name Role Phone Jabier Peck MD Primary Care Provider [phone] Srikanth Adrian MD Unavailable Tad Romero MD Primary Care Provider [phone] Gloria Martinez MD Unavailable [phone] Reason for Visit * Reason Comments Medication Refill Encounter Details Date Type Department Care Team (Late st Contact Info) Description 08/01/2023 Refill [facility] Family Medicine [facility] #2 [place] [address] Jabier Peck MD #[address] [address] Medication Refill Social History Tobacco Use Types [...] CDT Gender Identity Male 05/03/2023 12:44 PM DRAPERY WORKER Sexual Orientation Lesbian or Wolff 05/03/2023 12 :44 PM DRAPERY WORKER documented as of this encounter Miscellaneous [...] Passed - Active short-acting beta agonist prescription ERY WORKER documented in this encounter Plan of Treatment Not on file documented as of this encounter Visit Diagnoses Not on filedocumented in this encounter Care Teams Pencils Washer Relationship Specialty Start Date End Date Jabier Peck MD #2 [facility] [address] [place] [address] PCP - General Family Medicine 06/22/20 01/16/24 Tad Mcintosh MD [address] [place] [address] PCP - General Family Medicine 01/17/24 Srikanth Adrian MD #2 [facility] [address] [place] [address] Inseam Trimming Machine Operator Cardiovascular Disease - Cardiology 02/02/22 08/06/24 Gloria Martinez MD #2 [facility] [address] [place] [address] Consulting Physician Urology 04/30/24 documented as of this encounter
--- OUTSIDE RECORDS SUMMARY | 2025-01-10 16:29 | XMS_ITS | Encounter Summary ---
Author Organization [facility] Address [address] [place] [address] Phone Care Team Providers Care Inverted Block Operator Name Role Phone Jabier Peck MD Primary Care Provider [phone] Srikanth Adrian MD Unavailable Tad Romero MD Primary Care Provider [phone] Gloria Martinez MD Unavailable [phone] Reason for Visit * Reason Onset Date Comments Medication Refill 03/23/2021 Encounter Details Date Type Department Care Team (Late st Contact Info) Description 03/23/2021 Refill [facility] Medical Group - Family Medicine [facility] #2 [place] [address] Jabier Peck MD #[address] [address] Medication Refill Social History Tobacco Use Types [...] CDT Gender Identity Male 05/03/2023 12:44 PM CUSTOMER SUPPORT AGENT Sexual Orientation Lesbian or Wolff 05/03/2023 12 :44 PM CUSTOMER SUPPORT AGENT COVID-19 Exposure Response Date Recorded In [...] Outpatient Visits 1 week ago Cervical radiculopathy [facility] - Kishore Alonso APN, RANCH HELPER 4 months ago Dermatitis [facility] - Kishore Alonso APN, RANCH HELPER 5 months ago Diet-controlled diabetes mellitus (HCC) [facility] - Jabier Aldridge MD 7 months ago Thrombophilia (HCC) [facility] - Kishore Alonso APN, RANCH HELPER 7 months ago Obstructive sleep apnea syndrome [facility] - [facility] Morgan APN, RANCH HELPER Upcoming Appointments Future Appointments Tomorrow [facility] RESP ROOM1 [facility] Respiratory Therapy, [facility] In 1 week Sofy Bowen, PT [facility] Rehab at [facility], [facility] In 2 weeks Jabier Peck MD [facility] Family Medicine [facility] In 1 month Aria Delong PSYCH SOCIAL WORKER, QUALITY COMPLIANCE COORDINATOR [facility] Neurology [facility] In 5 months Jt Morillo MD [facility] Oncology Services, [facility] BLOCKER HAND - Recent and Past Visits Recent Visits Date Type Provider Dept 03/16/21 Office Visit Kishore Prieto APN, R[place]ARD [facility] 11/16/20 Office Visit Kishore Prieto APN, RICHARD [facility] 10/20/20 Office Visit Jabier Peck MD [facility] 08/20/20 Telemedicine Kishore Prieto APN, RICHARD [facility] 08/06/20 Telemedicine Kishore Prieto APN, RICHARD [facility] 06/22/20 Office Visit Kishore Prieto APN, RICHARD [facility] Showing recent visits within past 460 days with a meds authorizing provider and meeting all other requirements Future Appointments Date Type Provider Dept 04/08/21 Appointment Jabier Peck MD [facility] Showing future appointments within next 90 [...] 19 Confirmed 05/31/2022 05/31/2022 023 12:16 AM CUSTOMER SUPPORT AGENT Respiratory Rule Out - RPA 02/26/2023 02/26/2023 0 02/26/2023 11:31 AM CDT COVID - 02/26/2023 02/26/2023 03/08/2023 12:1 6 AM CDT documented as of this encounter Care Teams Inverted Block Operator Relationship Specialty Start Date End Date Jabier Peck MD #2 [facility] [address] [place] [address] PCP - General Family Medicine 06/22/20 01/16/24 Tad Mcintosh MD [address] [place] [address] PCP - General Family Medicine 01/17/24 Srikanth Adrian MD #[address] [address] Rail Project Engineer Cardiovascular Disease - Cardiology 02/02/22 08/06/24 Gloria Martinez MD #[address] [address] Consulting Physician Urology 04/30/24 documented as of this encounter
--- OUTSIDE RECORDS SUMMARY | 2025-01-10 16:30 | XMS_ITS | Encounter Summary ---
Author Organization [facility] Address [address] [place] [address] Phone Care Team Providers Care Plant Manager Name Role Phone Jabier Peck MD Primary Care Provider [phone] Srikanth Adrian MD Unavailable Tad Romero MD Primary Care Provider [phone] Gloria Martinez MD Unavailable [phone] Reason for Visit * Reason Onset Date Comments Advice Only 12/18/2022 Encounter Details Date Type Department Care Team (Late st Contact Info) Description 12/18/2022 Telephone [facility] [address] [place] [address] Jabier Peck MD #[address] [address] Advice Only Social History Tobacco Use Types [...] CDT Gender Identity Male 05/03/2023 12:44 PM PLANT OPERATIONS MANAGER Sexual Orientation Lesbian or Wolff 05/03/2023 12 :44 PM PLANT OPERATIONS MANAGER documented as of this encounter Miscellaneous [...] documented as of this encounter Care Teams Plant Manager Relationship Specialty Start Date End Date Jabier Peck MD #[address] [address] PCP - General Family Medicine 06/22/20 01/16/24 Tad Mcintosh MD [address] [place] [address] PCP - General Family Medicine 01/17/24 Srikanth Adrian MD #[address] [address] Plant Nursery Worker Cardiovascular Disease - Cardiology 02/02/22 08/06/24 Gloria Martinez MD #2 [facility], [address] [address] Consulting Physician Urology 04/30/24 documented as of this encounter
--- OUTSIDE RECORDS SUMMARY | 2025-01-10 16:30 | XMS_ITS | Encounter Summary ---
Author Organization [facility] Address [address] [place] [address] Phone Care Team Providers Care Nurse Sane Name Role Phone Jabier Peck MD Primary Care Provider [phone] Srikanth Adrian MD Unavailable Tad Romero MD Primary Care Provider [phone] Gloria Martinez MD Unavailable [phone] Reason for Visit * Reason Onset Date Comments Medication Refill 03/28/2021 Encounter Details Date Type Department Care Team (Late st Contact Info) Description 03/28/2021 Refill [facility] Medical Group - Family Medicine [facility] #2 [place] [address] Jabier Peck MD #[address] [address] Medication Refill Social History Tobacco Use Types [...] CDT Gender Identity Male 05/03/2023 12:44 PM METHODS SPECIALIST ENGINEER Sexual Orientation Lesbian or Wolff 05/03/2023 12 :44 PM METHODS SPECIALIST ENGINEER COVID-19 Exposure Response Date Recorded In [...] [place] [facility] [place] 11/16/20 Office Visit Kishore Pireto APN, RICHARD [facility] [place] 10/20/20 Office Visit Jabier Peck MD [facility] [place] 08/20/20 Telemedicine Kishore Prieto APN, RICHARD [facility] [place] 08/06/20 Telemedicine Kishore Prieto APN, RICHARD [facility] [place] 06/22/20 Office Visit Kishore Prieto APN, GUEST SERVICES [facility] Showing recent visits within past 365 days and meeting all other requirements Future Appointments Date Type Provider Dept 04/08/21 Appointment Jabier Peck MD [facility] [place] Showing future appointments within next 90 [...] 19 Confirmed 05/31/2022 05/31/2022 023 12:16 AM METHODS SPECIALIST ENGINEER Respiratory Rule Out - RPA 02/26/2023 02/26/2023 0 02/26/2023 11:31 AM CDT COVID - 19 02/26/2023 02/26/2023 03/08/2023 12:1 6 AM CDT documented as of this encounter Care Teams Nurse Sane Relationship Specialty Start Date End Date Jabier Peck MD #2 [facility] [address] [place] [address] PCP - General Family Medicine 06/22/20 01/16/24 Tad Mcintosh MD [address] [place] [address] PCP - General Family Medicine 01/17/24 Srikanth Adrian MD #2 [facility] [address] [place] [address] Software Deployment Engineer Cardiovascular Disease - Cardiology 02/02/22 08/06/24 Gloria Martinez MD #2 [facility] [address] [place] [address] Consulting Physician Urology 04/30/24 documented as of this encounter
--- OUTSIDE RECORDS SUMMARY | 2025-01-10 16:30 | XMS_ITS | Encounter Summary ---
Author Organization [facility] Address [address] [place] [address] Phone Care Team Providers Care Dancing Instructor Name Role Phone Jabier Peck MD Primary Care Provider [phone] Srikanth Adrian MD Unavailable Tad Romero MD Primary Care Provider [phone] Gloria Martinez MD Unavailable [phone] Reason for Visit * Reason Comments Medication Refill Encounter Details Date Type Department Care Team (Late st Contact Info) Description 06/20/2022 Refill [facility] #2 [place] [address] Jabier Peck MD #[address] [address] Medication Refill Social History Tobacco Use Types [...] CDT Gender Identity Male 05/03/2023 12:44 PM FUND DIRECTOR Sexual Orientation Lesbian or Wolff 05/03/2023 12 :44 PM FUND DIRECTOR COVID-19 Exposure Response Date Recorded In the last 10 days, have yo u been in contact with someone who was confirmed or suspected to have Coronavirus/COVID-19? Yes 05/31/2022 2:12 PM FUND DIRECTOR documented as of this encounter Miscellaneous [...] 90 days and meeting all other requirements DIRECTOR documented in this encounter Plan of Treatment Not on file documented as of this encounter Visit Diagnoses Diagnosis Cervical radiculopathy Brachial neuritis or radiculitis nos documented in this encounter Additional Health Concerns Infection Onset Date Last Indicated Resolved Time COVID - 19 Confirmed 05/31/2022 05/31/2022 023 12:16 AM FUND DIRECTOR Respiratory Rule Out - RPA 02/26/2023 02/26/2023 0 02/26/2023 11:31 AM CDT COVID - 19 02/26/2023 02/26/2023 03/08/2023 12:1 6 AM CDT documented as of this encounter Care Teams Dancing Instructor Relationship Specialty Start Date End Date Jabier Peck MD #2 [facility] [address] [place] [address] PCP - General Family Medicine 06/22/20 01/16/24 Tad Mcintosh MD [address] [place] [address] PCP - General Family Medicine 01/17/24 Srikanth Adrian MD #2 [facility] [address] [place] [address] Psychological Stress Evaluator Cardiovascular Disease - Cardiology 02/02/22 08/06/24 Gloria Martinez MD #2 [facility] [address] [place] [address] Consulting Physician Urology 04/30/24 documented as of this encounter
--- OUTSIDE RECORDS SUMMARY | 2025-01-10 16:30 | XMS_ITS | Encounter Summary ---
Author Organization [facility] Address [address] [place] [address] Phone Care Team Providers Care Chronometer Tester Name Role Phone Jabier Peck MD Primary Care Provider [phone] Srikanth Adrian MD Unavailable Tad Romero MD Primary Care Provider [phone] Gloria Martinez MD Unavailable [phone] Reason for Visit * Reason Comments Medication Refill Encounter Details Date Type Department Care Team (Late st Contact Info) Description 03/29/2022 Refill [facility] #2 [place] [address] Jabier Peck MD #[address] [address] Medication Refill Social History Tobacco Use Types [...] CDT Gender Identity Male 05/03/2023 12:44 PM MATERIAL CREW SUPERVISOR Sexual Orientation Lesbian or Wolff 05/03/2023 12 :44 PM MATERIAL CREW SUPERVISOR COVID-19 Exposure Response Date Recorded In [...] 19 Confirmed 05/31/2022 05/31/2022 023 12:16 AM MATERIAL CREW SUPERVISOR Respiratory Rule Out - RPA 02/26/2023 02/26/2023 0 02/26/2023 11:31 AM CDT COVID - 19 02/26/2023 02/26/2023 03/08/2023 12:1 6 AM CDT documented as of this encounter Care Teams Chronometer Tester Relationship Specialty Start Date End Date Jabier Peck MD #2 [facility] [address] [place] [address] PCP - General Family Medicine 06/22/20 01/16/24 Tad Mcintosh MD [address] [place] [address] PCP - General Family Medicine 01/17/24 Srikanth Adrian MD #2 [facility] [address] [place] [address] Epic Interface Analyst Cardiovascular Disease - Cardiology 02/02/22 08/06/24 Gloria Martinez MD #2 [facility] [address] [place] [address] Consulting Physician Urology 04/30/24 documented as of this encounter
--- OUTSIDE RECORDS SUMMARY | 2025-01-10 16:30 | XMS_ITS | Encounter Summary ---
Author Organization [facility] Address [address] [facility] [place] [address] Phone Care Team Providers Care Product Representative Name Role Phone Tad Mcintosh MD Primary Care Provider [phone] Gloria Martinez MD Unavailable [phone] Reason for Visit * Reason Comments Medication Refill Encounter Details Date Type Department Care Team (Late st Contact Info) Description 10/20/2024 Refill [facility] Medical Group - Family Medicine [facility] #2 [place] [address] Jabier Peck MD #[address] [address] Medication Refill Social History Tobacco Use Types [...] CDT Gender Identity Male 05/03/2023 12:44 PM ACCOUNTING AUDITOR Sexual Orientation Lesbian or Wolff 05/03/2023 12 :44 PM ACCOUNTING AUDITOR documented as of this encounter Miscellaneous Notes * Telephone Encounter - Francine Soto RN - 10/21/2024 8:22 AM CDT PCP: Tad Mcintosh MD documented in this encounter Plan of Treatment Not on file documented as of this encounter Visit Diagnoses Not on filedocumented in this encounter Care Teams Product Representative Relationship Specialty Start Date End Date Tad Mcintosh MD [address] [place] [address] PCP - General Family Medicine 01/17/24 Gloria Martinez MD #[address] [address] Consulting Physician Urology 04/30/24 documented as of this encounter
--- OUTSIDE RECORDS SUMMARY | 2025-01-10 16:30 | XMS_ITS | Encounter Summary ---
Author Organization [facility] Address [address] [facility] [place] [address] Phone Care Team Providers Care Ice Cream Machine Operator Name Role Phone Jabier Peck MD Primary Care Provider [phone] Srikanth Adrian MD Unavailable Tad Romero MD Primary Care Provider [phone] Gloria Martinez MD Unavailable [phone] Reason for Visit * Reason Comments Medication Refill Encounter Details Date Type Department Care Team (Late st Contact Info) Description 05/25/2022 Refill [facility] Oncology Services [address] [place] [phone] Jt Morillo MD [address] [place] [address] Medication Refill Social History Tobacco Use Types [...] CDT Gender Identity Male 05/03/2023 12:44 PM CYCLE LIAISON Sexual Orientation Lesbian or Wolff 05/03/2023 12 :44 PM CYCLE LIAISON COVID-19 Exposure Response Date Recorded In the last 10 days, have yo u been in contact with someone who was confirmed or suspected to have Coronavirus/COVID-19? No / Unsure 05/10/2022 2:32 PM CYCLE LIAISON documented as of this encounter Miscellaneous Notes * Telephone Encounter - Aisha Escamilla RN - 05/26/2022 11:00 AM CST Approved Eliquis per last f/u note. Pt to be on indefinite AC. E LIAISON documented in this encounter Plan of Treatment Not on file documented as of this encounter Visit Diagnoses Diagnosis History of thrombophilia associated with MTHFR mutation documented in this encounter Additional Health Concerns Infection Onset Date Last Indicated Resolved Time COVID - 19 Confirmed 05/31/2022 05/31/2022 023 12:16 AM CYCLE LIAISON Respiratory Rule Out - RPA 02/26/2023 02/26/2023 0 02/26/2023 11:31 AM CDT COVID - 19 02/26/2023 02/26/2023 03/08/2023 12:1 6 AM CDT documented as of this encounter Care Teams Ice Cream Machine Operator Relationship Specialty Start Date End Date Jabier Peck MD #[address] [address] PCP - General Family Medicine 06/22/20 01/16/24 Tad Mcintosh MD [address] [place] [address] PCP - General Family Medicine 01/17/24 Srikanth Adrian MD #2 [facility] [address] [place] [address] Shovel Log Loader Operator Cardiovascular Disease - Cardiology 02/02/22 08/06/24 Gloria Martinez MD #2 [facility], [address] [address] Consulting Physician Urology 04/30/24 documented as of this encounter
--- OUTSIDE RECORDS SUMMARY | 2025-01-10 16:30 | XMS_ITS | Encounter Summary ---
Author Organization [facility] Address [address] [place] [address] Phone Care Team Providers Care Cuff Presser Name Role Phone Jabier Peck MD Primary Care Provider + [phone] Srikanth Adrian MD Unavailable Tad Romero MD Primary Care Provider [phone] Gloria Martinez MD Unavailable [phone] Reason for Visit * Reason Comments Medication Refill Encounter Details Date Type Department Care Team (Late st Contact Info) Description 03/24/2022 Refill [facility] Medical Group - Family Medicine [facility] #2 [place] [address] Kishore Prieto, CATERING COOK, SENIOR J2EE DEVELOPER #[address] [address] Medication Refill Social History Tobacco Use Types [...] CDT Gender Identity Male 05/03/2023 12:44 PM PRODUCTION QUALITY MANAGER Sexual Orientation Lesbian or Wolff 05/03/2023 12 :44 PM PRODUCTION QUALITY MANAGER COVID-19 Exposure Response Date Recorded In [...] Prieto APRN, RICHARD [facility] [place] 12/13/21 Telemedicine Kisohre Prieto APRN, RICHARD [facility] 08/01/21 Office [...] 19 Confirmed 05/31/2022 05/31/2022 023 12:16 AM PRODUCTION QUALITY MANAGER Respiratory Rule Out - RPA 02/26/2023 02/26/2023 0 02/26/2023 11:31 AM CDT COVID - 19 02/26/2023 02/26/2023 03/08/2023 12:1 6 AM CDT documented as of this encounter Care Teams Cuff Presser Relationship Specialty Start Date End Date Jabier Peck MD #[address] [facility] [address] [place] [address] PCP - General Family Medicine 06/22/20 01/16/24 Tad Mcintosh MD [address] [place] [address] PCP - General Family Medicine 01/17/24 Srikanth Adrian MD #[address] [facility] [address] [place] [address] Geothermal Hvac Technician Cardiovascular Disease - Cardiology 02/02/22 08/06/24 Gloria Martinez MD #2 [facility] [address] [place] [address] Consulting Physician Urology 04/30/24 documented as of this encounter
--- OUTSIDE RECORDS SUMMARY | 2025-01-10 16:30 | XMS_ITS | Encounter Summary ---
Author Organization [facility] Address [address] [place] [address] Phone Care Team Providers Care Ticket Maker Name Role Phone Jabier Peck MD Primary Care Provider [phone] Srikanth Adrian MD Unavailable Tad Romero MD Primary Care Provider [phone] Gloria Martinez MD Unavailable [phone] Reason for Visit * Reason Onset Date Comments Medication Refill Requesting new referral to [facility] 11/10/2022 Encounter Details Date Type Department Care Team (Late st Contact Info) Description 11/10/2022 Refill [facility] #2 [place] [address] Jabier Peck MD #[address] [address] Medication Refill; Requesting new referral to [facility] Social History Tobacco Use Types Packs/Day [...] CDT Gender Identity Male 05/03/2023 12:44 PM INSULATION ENGINEMAN Sexual Orientation Lesbian or Wolff 05/03/2023 12 :44 PM INSULATION ENGINEMAN documented as of this encounter Miscellaneous Notes * Telephone Encounter - Nikky Irby - 11/10/2022 1:42 PM CDT C: Tae Kent is requesting a new referral to [facility]. . Please call Tae (relationship to [...] [place] 07/20/22 Office Visit Gerri Rocha [facility] [place] 05/03/22 Telemedicine Jabier Peck MD [facility] 03/03/22 Office Visit Jabier Peck MD [facility] [place] 02/24/22 Office Visit Kishore Prieto APRN, RICHARD [facility] [place] 01/31/22 Office Visit Kishore Prieto APRN, RICHARD [place] 12/13/21 Telemedicine Kishore Prieto APRN, BEER COOLER [facility] [place] Showing recent [...] RICHARD [place] 12/13/21 Telemedicine Kishore Prieto APRN, BEER COOLER [facility] Showing recent visits within past [...] documented as of this encounter Care Teams Ticket Maker Relationship Specialty Start Date End Date Jabier Peck MD #2 [facility] [address] [place] [address] PCP - General Family Medicine 06/22/20 01/16/24 Tad Mcintosh MD [address] [place] [address] PCP - General Family Medicine 01/17/24 Srikanth Adrian MD #2 [facility] [address] [place] [address] Game Manager Cardiovascular Disease - Cardiology 02/02/22 08/06/24 Gloria Martinez MD #2 [facility] [address] [place] [address] Consulting Physician Urology 04/30/24 documented as of this encounter
--- OUTSIDE RECORDS SUMMARY | 2025-01-10 16:30 | XMS_ITS | Encounter Summary ---
Author Organization [facility] Address [address] [place] [address] Phone Care Team Providers Care Paradi Operator Name Role Phone Jabier Peck MD Primary Care Provider [phone] Srikanth Adrian MD Unavailable Tad Romero MD Primary Care Provider [phone] Gloria Martinez MD Unavailable [phone] Reason for Visit * Reason Comments Medication Refill Encounter Details Date Type Department Care Team (Late st Contact Info) Description 08/30/2022 Refill [facility] #2 [place] [address] Jabier Peck MD #[address] [address] Medication Refill Social History Tobacco Use Types [...] CDT Gender Identity Male 05/03/2023 12:44 PM MARINE PIPE WELDER Sexual Orientation Lesbian or Wolff 05/03/2023 12 :44 PM MARINE PIPE WELDER COVID-19 Exposure Response Date Recorded In the last 10 days, have yo u been in contact with someone who was confirmed or suspected to have Coronavirus/COVID-19? No / Unsure 08/21/2022 12:53 PM MARINE PIPE WELDER documented as of this encounter Miscellaneous Notes [...] [place] 01/31/22 Office Visit Kishore Prieto APRN, PER DIEM REGISTERED NURSE [facility] [place] 12/13/21 Telemedicine Kishore Prieto APRN, PER DIEM REGISTERED NURSE [facility] Showing recent visits within past 365 days [...] documented as of this encounter Care Teams Paradi Operator Relationship Specialty Start Date End Date Jabier Peck MD #2 [facility] [address] [place] [address] PCP - General Family Medicine 06/22/20 01/16/24 Tad Mcintosh MD [address] [place] [address] PCP - General Family Medicine 01/17/24 Srikanth Adrian MD #2 [facility] [address] [place] [address] Assemblies And Installations Inspector Cardiovascular Disease - Cardiology 02/02/22 08/06/24 Gloria Martinez MD #2 [facility] [address] [place] [address] Consulting Physician Urology 04/30/24 documented as of this encounter
--- OUTSIDE RECORDS SUMMARY | 2025-01-10 16:30 | XMS_ITS | Encounter Summary ---
Author Organization [facility] Address [address] [place] [address] Phone Care Team Providers Care Care Manager Cna Name Role Phone Jabier Peck MD Primary Care Provider [phone] Srikanth Adrian MD Unavailable Tad Romero MD Primary Care Provider [phone] Gloria Martinez MD Unavailable [phone] Reason for Visit * Reason Comments Medication Refill Encounter Details Date Type Department Care Team (Late st Contact Info) Description 10/24/2022 Refill [facility] #2 [place] [address] Jabier Peck MD #[address] [address] Medication Refill Social History Tobacco Use Types [...] CDT Gender Identity Male 05/03/2023 12:44 PM CLARIFIER OPERATOR Sexual Orientation Lesbian or Wolff 05/03/2023 12 :44 PM CLARIFIER OPERATOR documented as of this encounter Miscellaneous [...] [place] 12/13/21 Telemedicine Kishore Prieto APRN, R[facility] [place] Showing recent visits within past 365 [...] documented as of this encounter Care Teams Care Manager Cna Relationship Specialty Start Date End Date Jabier Peck MD #2 [facility] [address] [place] [address] PCP - General Family Medicine 06/22/20 01/16/24 Tad Mcintosh MD [address] [place] [address] PCP - General Family Medicine 01/17/24 Srikanth Adrian MD #2 [facility] [address] [place] [address] Panel Saw Operator Cardiovascular Disease - Cardiology 02/02/22 08/06/24 Gloria Martinez MD #[address] [facility] [address] [place] [address] Consulting Physician Urology 04/30/24 documented as of this encounter
--- OUTSIDE RECORDS SUMMARY | 2025-01-10 16:30 | XMS_ITS | Encounter Summary ---
Author Organization [facility] Address [address] [facility] [place] [address] Phone Care Team Providers Care Senior Clinical Data Manager Name Role Phone Jabeir Peck MD Primary Care Provider + [phone] Srikanth Adrian MD Unavailable Tad Romero MD Primary Care Provider [phone] Gloria Martinez MD Unavailable [phone] Reason for Visit * Reason Comments Medication Refill Encounter Details Date Type Department Care Team (Late st Contact Info) Description 08/19/2022 Refill [facility] Oncology Services [address] [place] [address] Jt Morillo MD [address] [place] [address] Medication Refill Social History Tobacco Use Types [...] Gender Identity Male 05/03/2023 12:44 PM MARKETING INTELLIGENCE ANALYST Sexual Orientation Lesbian or Wolff 05/03/2023 12 :44 PM MARKETING INTELLIGENCE ANALYST COVID-19 Exposure Response Date Recorded In the last 10 days, have yo u been in contact with someone who was confirmed or suspected to have Coronavirus/COVID-19? No / Unsure 08/21/2022 12:53 PM MARKETING INTELLIGENCE ANALYST documented as of this encounter Miscellaneous Notes * Telephone Encounter - Aisha Escamilla RN - 08/21/2022 12:02 PM CST Approved Eliquis per last f/u note. ETING INTELLIGENCE ANALYST documented in this encounter Plan of [...] as of this encounter Care Teams Senior Clinical Data Manager Relationship Specialty Start Date End Date Jabier Peck MD #2 [facility] [address] [place] [address] PCP - General Family Medicine 06/22/20 01/16/24 Tad Mcintosh MD [address] [place] [address] PCP - General Family Medicine 01/17/24 Srikanth Adrian MD #2 [facility] [address] [place] [address] Feeder Operator Cardiovascular Disease - Cardiology 02/02/22 08/06/24 Gloria Martinez MD #2 [facility] [address] [place] [address] Consulting Physician Urology 04/30/24 documented as of this encounter
--- OUTSIDE RECORDS SUMMARY | 2025-01-10 16:30 | XMS_ITS | Encounter Summary ---
Author Organization [facility] Address [address] [place] [address] Phone Care Team Providers Care Manager Ct Name Role Phone Jabier Peck MD Primary Care Provider [phone] Srikanth Adrian MD Unavailable Tad Romero MD Primary Care Provider [phone] Gloria Martinez MD Unavailable [phone] Reason for Visit * Reason Comments Medication Refill Encounter Details Date Type Department Care Team (Late st Contact Info) Description 07/28/2022 Refill [facility] #2 [place] [address] Jabier Peck MD #[address] [address] Medication Refill Social History Tobacco Use Types [...] CDT Gender Identity Male 05/03/2023 12:44 PM 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 No / Unsure 07/20/2022 2:30 PM BRUSH HOLDER ASSEMBLER documented as of this encounter Miscellaneous [...] [facility] [place] 12/13/21 Telemedicine Kishore Prieto APRN, SUMMER LAW CLERK [facility] [place] 08/01/21 Office Visit Jabier Peck MD [facility] [place] Showing recent visits within past 365 days and meeting all other requirements Future Appointments No visits were found meeting these conditions. Showing future appointments within next 90 days and meeting all other requirements H HOLDER ASSEMBLER documented in this encounter Plan of [...] as of this encounter Care Teams Manager Ct Relationship Specialty Start Date End Date Jabier Peck MD #2 [facility] [address] [place] [address] PCP - General Family Medicine 06/22/20 01/16/24 Tad Mcintosh MD [address] [place] [address] PCP - General Family Medicine 01/17/24 Srikanth Adrian MD #2 [facility] [address] [place] [address] Header Set Up Operator Cardiovascular Disease - Cardiology 02/02/22 08/06/24 Gloria Martinez MD #2 [facility] [address] [place] [address] Consulting Physician Urology 04/30/24 documented as of this encounter
--- OUTSIDE RECORDS SUMMARY | 2025-01-10 16:30 | XMS_ITS | Encounter Summary ---
Author Organization [facility] Address [address] [place] [address] Phone Care Team Providers Care Charger Tester Name Role Phone Jabier Peck MD Primary Care Provider [phone] Srikanth Adrian MD Unavailable Tad Romero MD Primary Care Provider [phone] Gloria Martinez MD Unavailable [phone] Reason for Visit * Reason Comments Medication Refill Encounter Details Date Type Department Care Team (Late st Contact Info) Description 07/10/2022 Refill [facility] - Family [facility] #2 [place] [address] Jabier Peck MD #[address] [address] Medication Refill Social History Tobacco Use Types [...] CDT Gender Identity Male 05/03/2023 12:44 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 NED GLASS PAINTER documented in this encounter Plan of Treatment Not on file documented as of this encounter Visit Diagnoses Not on filedocumented in this encounter Additional Health Concerns Infection Onset Date Last Indicated Resolved Time Respiratory Rule Out - RPA 02/26/2023 02/26/2023 0 02/26/2023 11:31 AM CDT COVID - 19 02/26/2023 02/26/2023 03/08/2023 12:1 6 AM CDT documented as of this encounter Care Teams Charger Tester Relationship Specialty Start Date End Date Jabier Peck MD #[address] [address] PCP - General Family Medicine 06/22/20 01/16/24 Tad Mcintosh MD [address] [place] [address] PCP - General Family Medicine 01/17/24 Srikanth Adrian MD #2 [facility] [address] [place] [address] Head Boys Golf Coach Cardiovascular Disease - Cardiology 02/02/22 08/06/24 Gloria Martinez MD #[address] [address] Consulting Physician Urology 04/30/24 documented as of this encounter
--- OUTSIDE RECORDS SUMMARY | 2025-01-10 16:30 | XMS_ITS | Encounter Summary ---
Author Organization [facility] Address [address] [place] [address] Phone Care Team Providers Care Marble Ceiling Installer Name Role Phone Jabier Peck MD Primary Care Provider [phone] Srikanth Adrian MD Unavailable Tad Romero MD Primary Care Provider [phone] Gloria Martinez MD Unavailable [phone] Reason for Visit * Reason Comments Medication Refill Encounter Details Date Type Department Care Team (Late st Contact Info) Description 05/14/2022 Refill [facility] #2 [place] [address] Jabier Peck MD #[address] [address] Medication Refill Social History Tobacco Use Types [...] CDT Gender Identity Male 05/03/2023 12:44 PM 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 No / Unsure 05/10/2022 2:32 PM WINDOWS APPLICATION PACKAGER documented as of this encounter Miscellaneous Notes * Telephone Encounter - Anjali Hartley RN - 05/15/2022 9:34 AM WINDOWS APPLICATION PACKAGER PDMP 04/18/2022 #45, 15 day supply. Medication [...] 90 days and meeting all other requirements OWS APPLICATION PACKAGER documented in this encounter Plan of Treatment Not on file documented as of this encounter Visit Diagnoses Diagnosis Cervical radiculopathy Brachial neuritis or radiculitis nos documented in this encounter Additional Health Concerns Infection Onset Date Last Indicated Resolved Time COVID - 19 Confirmed 05/31/2022 05/31/2022 023 12:16 AM WINDOWS APPLICATION PACKAGER Respiratory Rule Out - RPA 02/26/2023 02/26/2023 0 02/26/2023 11:31 AM CDT COVID - 19 02/26/2023 02/26/2023 03/08/2023 12:1 6 AM CDT documented as of this encounter Care Teams Marble Ceiling Installer Relationship Specialty Start Date End Date Jabier Peck MD #2 [facility] [address] [place] [address] PCP - General Family Medicine 06/22/20 01/16/24 Tad Mcintosh MD [address] [place] [address] PCP - General Family Medicine 01/17/24 Srikanth Adrian MD #2 [facility] [address] [place] [address] Medical Staff Director Cardiovascular Disease - Cardiology 02/02/22 08/06/24 Gloria Martinez MD #2 [facility] [address] [place] [address] Consulting Physician Urology 04/30/24 documented as of this encounter
--- OUTSIDE RECORDS SUMMARY | 2025-01-10 16:30 | XMS_ITS | Encounter Summary ---
Author Organization [facility] Address [address] [place] [address] Phone Care Team Providers Care High [employer] Physical Education Teacher Name Role Phone Jabier Peck MD Primary Care Provider [phone] Srikanth Adrian MD Unavailable Tad Romero MD Primary Care Provider [phone] Gloria Martinez MD Unavailable [phone] Reason for Visit * Reason Comments Medication Refill Encounter Details Date Type Department Care Team (Late st Contact Info) Description 06/12/2022 Refill [facility] #2 [place] [address] Jabier Peck MD #[address] [address] Medication Refill Social History Tobacco Use Types [...] CDT Gender Identity Male 05/03/2023 12:44 PM LOOM FIXER APPRENTICE Sexual Orientation Lesbian or Wolff 05/03/2023 12 :44 PM LOOM FIXER APPRENTICE COVID-19 Exposure Response Date Recorded In the last 10 days, have yo u been in contact with someone who was confirmed or suspected to have Coronavirus/COVID-19? Yes 05/31/2022 2:12 PM LOOM FIXER APPRENTICE documented as of this encounter Miscellaneous Notes * Telephone Encounter - Anjali Hartley RN - 06/13/2022 11:16 AM LOOM FIXER APPRENTICE Medication warning. Per nursing clinical judgement, provider [...] 90 days and meeting all other requirements FIXER APPRENTICE documented in this encounter Plan of Treatment Not on file documented as of this encounter Visit Diagnoses Not on filedocumented in this encounter Additional Health Concerns Infection Onset Date Last Indicated Resolved Time COVID - 19 Confirmed 05/31/2022 05/31/2022 023 12:16 AM LOOM FIXER APPRENTICE Respiratory Rule Out - RPA 02/26/2023 02/26/2023 0 02/26/2023 11:31 AM CDT COVID - 19 02/26/2023 02/26/2023 03/08/2023 12:1 6 AM CDT documented as of this encounter Care Teams High School Physical Education Teacher Relationship Specialty Start Date End Date Jabier Peck MD #2 [facility] [address] [place] [address] PCP - General Family Medicine 06/22/20 01/16/24 Tad Mcintosh MD [address] [place] [address] PCP - General Family Medicine 01/17/24 Srikanth Adrian MD #2 [facility] [address] [place] [address] Roaster Helper Cardiovascular Disease - Cardiology 02/02/22 08/06/24 Gloria Martinez MD #2 [facility] [address] [place] [address] Consulting Physician Urology 04/30/24 documented as of this encounter
--- OUTSIDE RECORDS SUMMARY | 2025-01-10 16:30 | XMS_ITS | Encounter Summary ---
Author Organization [facility] Address [address] [place] [address] Phone Care Team Providers Care Director Of Social Services Name Role Phone Jabier Peck MD Primary Care Provider [phone] Srikanth Adrian MD Unavailable Tad Romero MD Primary Care Provider [phone] Gloria Martinez MD Unavailable [phone] Reason for Visit * Reason Comments Medication Refill Encounter Details Date Type Department Care Team (Late st Contact Info) Description 06/21/2022 Refill [facility] #2 [place] [address] Jabier Peck MD #[address] [address] Medication Refill Social History Tobacco Use Types [...] CDT Gender Identity Male 05/03/2023 12:44 PM PACKING ROOM WORKER Sexual Orientation Lesbian or Wolff 05/03/2023 12 :44 PM PACKING ROOM WORKER COVID-19 Exposure Response Date Recorded In the last 10 days, have yo u been in contact with someone who was confirmed or suspected to have Coronavirus/COVID-19? Yes 05/31/2022 2:12 PM PACKING ROOM WORKER documented as of this encounter Miscellaneous Notes * Telephone Encounter - Libertad Shearer RN - 06/21/2022 1:33 PM CST Name from pharmacy: [facility] CAPSU[facility] Will file in chart as: [facility] Capsule The original prescription was discontinued on 02/24/2022 by Kishore Prieto APRN, RICHARD for thefollowing reason: Med List Clean Up. Renewing this prescription may not be appropriate. ING ROOM WORKER documented in this encounter Plan of [...] of this encounter Care Teams Director Of Social Services Relationship Specialty Start Date End Date Jabier Peck MD #[address] [address] PCP - General Family Medicine 06/22/20 01/16/24 Tad Mcintosh MD [address] [place] [address] PCP - General Family Medicine 01/17/24 Srikanth Adrian MD #[address] [address] Forensic Accountant Cardiovascular Disease - Cardiology 02/02/22 08/06/24 Gloria Martinez MD #2 [place] [address] Consulting Physician Urology 04/30/24 documented as of this encounter
--- OUTSIDE RECORDS SUMMARY | 2025-01-10 16:30 | XMS_ITS | Encounter Summary ---
Author Organization [facility] Address [address] [place] [address] Phone Care Team Providers Care Seaman Name Role Phone Jabier Peck MD Primary Care Provider [phone] Srikanth Adrian MD Unavailable Tad Romero MD Primary Care Provider [phone] Gloria Martinez MD Unavailable [phone] Reason for Visit * Reason Comments Medication Refill Encounter Details Date Type Department Care Team (Late st Contact Info) Description 05/11/2021 Refill [facility] - Family [facility] #2 [place] [address] Jabier Peck MD #[address] [address] Medication Refill Social History Tobacco Use Types [...] CDT Gender Identity Male 05/03/2023 12:44 PM HAND POTTER Sexual Orientation Lesbian or Wolff 05/03/2023 12 :44 PM HAND POTTER COVID-19 Exposure Response Date Recorded In the last month, have you been in contact with someone who was confirmed or suspected to have Coronavirus / COVID-19? No / Unsure 05/05/2021 12:33 PM HAND POTTER documented as of this encounter Miscellaneous Notes [...] [place] 06/22/20 Office Visit Kishore Prieto APRN, STUD MASTER/MISTRESS [facility] [place] Showing recent visits within past 365 days and meeting all other requirements Future Appointments Date Type Provider Dept 08/01/21 Appointment Jabier Peck MD [facility] Showing future appointments within next 90 days and meeting all other requirements POTTER documented in this encounter Plan of Treatment Not on file documented as of this encounter Visit Diagnoses Diagnosis Cervical radiculopathy Brachial neuritis or radiculitis nos documented in this encounter Additional Health Concerns Infection Onset Date Last Indicated Resolved Time COVID - 19 Confirmed 05/31/2022 05/31/2022 023 12:16 AM HAND POTTER Respiratory Rule Out - RPA 02/26/2023 02/26/2023 0 02/26/2023 11:31 AM CDT COVID - 19 02/26/2023 02/26/2023 03/08/2023 12:1 6 AM CDT documented as of this encounter Care Teams Seaman Relationship Specialty Start Date End Date Jabier Peck MD #2 [facility] [address] [place] [address] PCP - General Family Medicine 06/22/20 01/16/24 Tad Mcintosh MD [address] [place] [address] PCP - General Family Medicine 01/17/24 Srikanth Adrian MD #2 [facility] [address] [place] [address]sellor Cardiovascular Disease - Cardiology 02/02/22 08/06/24 Gloria Martinez MD #2 [facility] [address] [place] [address] Consulting Physician Urology 04/30/24 documented as of this encounter
--- OUTSIDE RECORDS SUMMARY | 2025-01-10 16:30 | XMS_ITS | Encounter Summary ---
Author Organization [facility] Address [address] [place] [address] Phone Care Team Providers Care International Project Engineer Name Role Phone Jabier Peck MD Primary Care Provider [phone] Srikanth Adrian MD Unavailable Tad Romero MD Primary Care Provider [phone] Gloria Martinez MD Unavailable [phone] Encounter Details Date Type Department Care Team (Late st Contact Info) Description 01/04/2023 Telephone [facility] Medical/Surgical 3 Surge Waiver [address] [place] [address] Jabier Peck MD #[address] [address] Social History Tobacco Use Types Packs/Day Years [...] CDT Gender Identity Male 05/03/2023 12:44 PM BASKET PATCHER Sexual Orientation Lesbian or Wolff 05/03/2023 12 :44 PM BASKET PATCHER documented as of this encounter Miscellaneous Notes [...] documented as of this encounter Care Teams International Project Engineer Relationship Specialty Start Date End Date Jabier Peck MD #[address] [address] PCP - General Family Medicine 06/22/20 01/16/24 Tad Mcintosh MD [address] [place] [address] PCP - General Family Medicine 01/17/24 Srikanth Adrian MD #2 [facility] [address] [place] [address] Litigation Legal Assistant Cardiovascular Disease - Cardiology 02/02/22 08/06/24 Gloria Martinez MD [facility]2 [facility] [address] [address] Consulting Physician Urology 04/30/24 documented as of this encounter
--- OUTSIDE RECORDS SUMMARY | 2025-01-10 16:30 | XMS_ITS | Encounter Summary ---
Author Organization [facility] Address [address] [place] [address] Phone Care Team Providers Care Epic Prelude Analyst Name Role Phone Jabier Peck MD Primary Care Provider + [phone] Srikanth Adrian MD Unavailable Tad Romero MD Primary Care Provider [phone] Gloria Martinez MD Unavailable [phone] Reason for Visit * Reason Comments Medication Refill Encounter Details Date Type Department Care Team (Late st Contact Info) Description 04/11/2021 Refill [facility] - Family Medicine [facility] #2 [place] [id number] Kishore Prieto, BRICK LOADER, POACHER OPERATOR #[address] [address] Medication Refill Social History Tobacco Use Types [...] CDT Gender Identity Male 05/03/2023 12:44 PM PROCESS ENGINEERING MANAGER Sexual Orientation Lesbian or Wolff 05/03/2023 12 :44 PM PROCESS ENGINEERING MANAGER COVID-19 Exposure Response Date Recorded In the last month, have you been in contact with someone who was confirmed or suspected to have Coronavirus / COVID-19? No / Unsure 04/14/2021 12:48 PM CDT documented as of this encounter Miscellaneous Notes * Telephone Encounter - Sabina Holly RN - 04/12/2021 12:20 PM CDT Tonny calling in from [facility]. He is requesting to find [...] 19 Confirmed 05/31/2022 05/31/2022 023 12:16 AM PROCESS ENGINEERING MANAGER Respiratory Rule Out - RPA 02/26/2023 02/26/2023 0 02/26/2023 11:31 AM CDT COVID - 19 02/26/2023 02/26/2023 03/08/2023 12:1 6 AM CDT documented as of this encounter Care Teams Epic Prelude Analyst Relationship Specialty Start Date End Date Jabier Peck MD #[address] [address] PCP - General Family Medicine 06/22/20 01/16/24 Tad Mcintosh MD [address] [place] [address] PCP - General Family Medicine 01/17/24 Srikanth Adrian MD #2 [facility] [address] [place] [address] Metalworking Instructor Cardiovascular Disease - Cardiology 02/02/22 08/06/24 Gloria Martinez MD #2 [facility] [address] [place] [address] Consulting Physician Urology 04/30/24 documented as of this encounter
--- OUTSIDE RECORDS SUMMARY | 2025-01-10 16:31 | XMS_ITS | Clinical Summary ---
Author Organization [facility] Address [address] [place] [address] Care Team Providers Care Waterproof Material Folder Name Role Phone Tad Mcintosh DO Primary [...] 07/17/2024 Assessment & Plan (07/17/2024 1:09 PM POULTRY FIELD SERVICE TECHNICIAN): Continue increased hydration Avoid acidic foods and fluids for one more week Thrombophilia 01/25/2023 Palpitations 11/22/2022 Chest pain 07/31/2022 Essential hypertension 07/31/2022 Tongue lesion 04/28/2020 Assessment & Plan (06/26/2024 9:29 AM POULTRY FIELD SERVICE TECHNICIAN): Has pain medication prescribed by Manasa Cortes at [facility] will confirm use of [place] after surgery Stop Eliquis for 5 days before and after Excision of left lateral and right lateral tongue lesions with repair Risks and complications: Anesthesia, bleeding, infection, benign versus malignant pathology, recurrence of lesion, injury to arteries, nerves and veins, scarring and need for further treatment Assessment & Plan (04/28/2020 1:41 PM POULTRY FIELD SERVICE TECHNICIAN): Speak to [facility] about smoothing out right first [...] week Assessment & Plan (04/28/2020 1:41 PM POULTRY FIELD SERVICE TECHNICIAN): Speak to [facility] about smoothing out right first [...] (04/18/2019): Added automatically from request for surgery [id number] Hematochezia 03/04/2019 Overview (03/04/2019): Added automatically from request for surgery [id number] Family history of colon cancer 03/04/2019 Overview (03/04/2019): Added automatically from request for surgery [id number] 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 [place] level is in process. Will hold at [...] recommended Assessment & Plan (07/08/2019 3:43 PM POULTRY FIELD SERVICE TECHNICIAN): Healthy, low carbohydrate lifestyle and exercise for [...] hydration Assessment & Plan (08/10/2017 1:23 PM POULTRY FIELD SERVICE TECHNICIAN): s/p Right inferior parathyroidectomy - 08/10/2016 pre [...] renal Assessment & Plan (05/01/2017 10:36 PM POULTRY FIELD SERVICE TECHNICIAN): s/p Right inferior parathyroidectomy - 08/10/2016 pre [...] future Assessment & Plan (08/10/2017 1:24 PM POULTRY FIELD SERVICE TECHNICIAN): Recheck levels Assessment & Plan (12/17/2016 8:01 AM CDT): Recheck levels Type 2 diabetes mellitus wit h stage 3 chronic kidney disease, with long-term current use of insulin 12/11/2016 Assessment & Plan (07/08/2019 3:42 PM POULTRY FIELD SERVICE TECHNICIAN): A1c 5.5% Jun 2019 on no medications. [...] needed. Assessment & Plan (08/10/2017 1:26 PM POULTRY FIELD SERVICE TECHNICIAN): - A1c today 5.5 % - due [...] months. Assessment & Plan (05/01/2017 10:36 PM POULTRY FIELD SERVICE TECHNICIAN): - reviewed BS log - BS well [...] statin. Assessment & Plan (08/10/2017 1:23 PM POULTRY FIELD SERVICE TECHNICIAN): On statin therapy - advised to increase physical activity - advised low fat/chol diet and avoid greasy and junk food Assessment & Plan (05/01/2017 10:37 PM POULTRY FIELD SERVICE TECHNICIAN): On statin therapy - advised to increase [...] activity Assessment & Plan (08/10/2017 1:24 PM POULTRY FIELD SERVICE TECHNICIAN): BP well controlled, chronic At goal advised [...] f/u with him Explained the risk of mcfp MAK and encourage use of CPAP or [...] quit smoking so they can encourage you. Bisque Kiln Drawer referral placed. Class 2 severe obesity due t o excess calories with serious comorbidity and body mass index (BMI) of 37.0 to 37.9 in adult 08/16/2012 Overview (09/22/2016): Obesity Assessment & Plan (12/25/2019 1:57 PM CDT): Healthy, low carbohydrate lifestyle and exercise for 150min/week recommended Referral for sap bw architect placed. Assessment & Plan (10/16/2019 11:40 AM [...] greens, fat-free milk, cottage cheese, nuts like hergfzk-ljgmold-yozdeto, protein bars with 10-15 g of protein [...] discussed. Assessment & Plan (05/01/2017 10:37 PM POULTRY FIELD SERVICE TECHNICIAN): Obesity is improving with treatment. Discussed the [...] time. Assessment & Plan (05/01/2017 10:37 PM POULTRY FIELD SERVICE TECHNICIAN): Hypertension is improving with treatment. Continue current [...] disease) stage 3, GFR 30-59 ml/min ([facility]) [place] poisoning Headache, tension-type Sleep apnea patient had [...] on file Legal Sex Male 5:22 PM POULTRY FIELD SERVICE TECHNICIAN Gender Identity Not on file Sexual Orientation Not on file Obstetrics History Last Filed Vital Signs Vital Sign Reading Time Taken Comments Blood Pressure 136/84 07/10/2024 4:54 PM POULTRY FIELD SERVICE TECHNICIAN Pulse 62 07/10/2024 4:54 PM POULTRY FIELD SERVICE TECHNICIAN Temperature 36.4 C (97.5 F) 07/10/2024 4:54 PM POULTRY FIELD SERVICE TECHNICIAN Respiratory Rate 16 07/10/2024 4:54 PM POULTRY FIELD SERVICE TECHNICIAN Oxygen Saturation 97% 07/10/2024 4:54 PM POULTRY FIELD SERVICE TECHNICIAN Inhaled Oxygen Concentration - - Weight 105.8 kg (233 lb 4 oz) 07/10/2024 10:09 A M POULTRY FIELD SERVICE TECHNICIAN Height 175.3 cm (5' 9) 07/10/2024 10:09 AM POULTRY FIELD SERVICE TECHNICIAN Body Mass Index 34.44 07/10/2024 10:09 AM POULTRY FIELD SERVICE TECHNICIAN Plan of Treatment Health Maintenance Due Date [...] 02/26/2029 02/26/2019 Medical Devices Implanted Type Area Russian Rubber Device Identifier Shelf Expiration Date Model / Serial / Lot [employer]Clicks Angio-Seal Vip 6fr Closere Device [id number] - [id number] Implanted:Qty: 1 on 10/12/2022 by Eliel Ortiz MD at [facility] Other - see comments [employer] 03/17/2023 [id number] / / [id number] [employer] [id number] 4mm 44mm Compression Headless Foot Ankle Screw Bone - [id number] Implanted:Qty: 1 on 04/25/2019 by Chidi Rios DPM at [facility] Right: Toes [employer] [id number] / / [employer] [place] Ezm 03-27-10 Easyclip Si 2mm [id number] Monocortical Superelastic Reamer - [id number] Implanted:Qty: 1 on 04/25/2019 by Chidi Rios DPM at [facility] Right: Toes [employer] [place] 11/16/2023 EZM 03-27-10 / / [id number] [employer] [place] Ezm 03-27-10 Easyclip Si 2mm [id number] Monocortical Superelastic Reamer - [id number] Implanted:Qty: 1 on 04/25/2019 by Chidi Rios DPM at [facility] Right: Toes [employer] [place] 11/16/2023 EZM 10-10 / / [id number] Toe Tac Xpress Hammertoe Fixation System Implanted:Qty: 2 on 04/25/2019 by Chidi Rios DPM at [facility] Right: Toes [employer] [id number] 05/27/2021 HT-[id number] / [id number] / [id number] [place] Wire Implanted:Qty: 1 on 04/25/2019 by Chidi Rios DPM at [facility] Right: Toes [employer] 07/18/2028 [id number] / / [id number] Procedures Procedure Name Priority Date/Time Associated Diagnosis Comments EGFR STAT 04/19/2023 3:53 PM CDT HEMOGLOBIN A1C Routine 12/13/2019 2:55 PM CDT LIPID PANEL Routine 05/17/2018 2:25 PM POULTRY FIELD SERVICE TECHNICIAN Type 2 diabetes mellitus with hyperglycemia, with long-term current use of insulin (HCC) from Last 3 Months or Most Recently Relevant to Health Maintenance Results * eGFR (04/19/2023 3:53 PM CDT) eGFR 51 mL/min/1. 73 m2 [facility] ([place]) Comment: Interpretive Data Reference Interval Normal >/= [...] BLOOD ORDERABLE S Final Result [facility] ([place]) 1 [facility] [place] [address] * (ABNORMAL) Hemoglobin A1c (12/13/2019 2:55 PM CDT) Blood specimen (specimen) 12/13/2019 2:55 PM CDT Narrative [facility] - 12/13/2019 2:55 PM CDT Results in labs Historical Provider LAB BLOOD ORDERABLES Becky l Result [place], [place] [phone] * (ABNORMAL) Lipid panel (05/17/2018 2:25 PM POULTRY FIELD SERVICE TECHNICIAN) Cholesterol 159 30 - 199 mg/dL CERNER [...] (EVER) Blood specimen (specimen) 05/17/2018 2:25 PM POULTRY FIELD SERVICE TECHNICIAN 05/17/2018 5:15 PM POULTRY FIELD SERVICE TECHNICIAN Narrative [facility] ([place]) - 05/17/2018 6:14 PM POULTRY FIELD SERVICE TECHNICIAN Tori Sims MD LAB BLOOD ORDERABLE S Final Result [facility] ([place]) 1 [facility] Department [place] [address] from Last 3 Months or Most Recently Relevant to Health Maintenance Insurance IDPA [facility] MEDICARE ADVANTAGE MEDICARE [facility] MEDICARE ADVANTAGE [facility] MEDICARE ADVANTAGE IDPA [facility] MEDICARE ADVANTAGE Advance Directives For more information, please contact: [phone] * Full Code (Latest Code Status on File) Date Activated Date Inactivated Comments 10/12/2022 2:12 PM 10/12/2022 10:46 PM * Full Code Date Activated Date Inactivated Comments 09/24/2017 9:04 PM 09/30/2017 5:22 PM Care Teams Waterproof Material Folder Relationship Specialty Start Date End Date Tad Mcintosh DO [address] [place] [address] PCP - General Family Medicine 06/26/24
--- OUTSIDE RECORDS SUMMARY | 2025-01-10 16:31 | XMS_ITS | Referral Summary ---
Author Organization [facility] Address [address] [place] [address] Care Team Providers Care Mica Miner Name Role Phone Tad Mcintosh DO Primary [...] 07/17/2024 Assessment & Plan (07/17/2024 1:09 PM TREE INSPECTOR): Continue increased hydration Avoid acidic foods and fluids for one more week Thrombophilia 01/25/2023 Palpitations 11/22/2022 Chest pain 07/31/2022 Essential hypertension 07/31/2022 Tongue lesion 04/28/2020 Assessment & Plan (06/26/2024 9:29 AM TREE INSPECTOR): Has pain medication prescribed by Manasa Cortes at [facility] will confirm use of [place] after surgery Stop Eliquis for 5 days before and after Excision of left lateral and right lateral tongue lesions with repair Risks and complications: Anesthesia, bleeding, infection, benign versus malignant pathology, recurrence of lesion, injury to arteries, nerves and veins, scarring and need for further treatment Assessment & Plan (04/28/2020 1:41 PM TREE INSPECTOR): Speak to [facility] about smoothing out right first [...] week Assessment & Plan (04/28/2020 1:41 PM TREE INSPECTOR): Speak to [facility] about smoothing out right first [...] (04/18/2019): Added automatically from request for surgery [id number] Hematochezia 03/04/2019 Overview (03/04/2019): Added automatically from request for surgery [id number] Family history of colon cancer 03/04/2019 Overview (03/04/2019): Added automatically from request for surgery [id number] 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 [place] level is in process. Will hold at [...] recommended Assessment & Plan (07/08/2019 3:43 PM TREE INSPECTOR): Healthy, low carbohydrate lifestyle and exercise for [...] hydration Assessment & Plan (08/10/2017 1:23 PM TREE INSPECTOR): s/p Right inferior parathyroidectomy - 08/10/2016 pre [...] renal Assessment & Plan (05/01/2017 10:36 PM TREE INSPECTOR): s/p Right inferior parathyroidectomy - 08/10/2016 pre [...] future Assessment & Plan (08/10/2017 1:24 PM TREE INSPECTOR): Recheck levels Assessment & Plan (12/17/2016 8:01 AM CDT): Recheck levels Type 2 diabetes mellitus wit h stage 3 chronic kidney disease, with long-term current use of insulin 12/11/2016 Assessment & Plan (07/08/2019 3:42 PM TREE INSPECTOR): A1c 5.5% Jun 2019 on no medications. [...] needed. Assessment & Plan (08/10/2017 1:26 PM TREE INSPECTOR): - A1c today 5.5 % - due [...] months. Assessment & Plan (05/01/2017 10:36 PM TREE INSPECTOR): - reviewed BS log - BS well [...] statin. Assessment & Plan (08/10/2017 1:23 PM TREE INSPECTOR): On statin therapy - advised to increase physical activity - advised low fat/chol diet and avoid greasy and junk food Assessment & Plan (05/01/2017 10:37 PM TREE INSPECTOR): On statin therapy - advised to increase [...] activity Assessment & Plan (08/10/2017 1:24 PM TREE INSPECTOR): BP well controlled, chronic At goal advised [...] f/u with him Explained the risk of halfway MAK and encourage use of CPAP or [...] quit smoking so they can encourage you. Indoor Landscaper/Gardener referral placed. Class 2 severe obesity due t o excess calories with serious comorbidity and body mass index (BMI) of 37.0 to 37.9 in adult 08/16/2012 Overview (09/22/2016): Obesity Assessment & Plan (12/25/2019 1:57 PM CDT): Healthy, low carbohydrate lifestyle and exercise for 150min/week recommended Referral for center director placed. Assessment & Plan (10/16/2019 11:40 AM [...] greens, fat-free milk, cottage cheese, nuts like lxpwuze-qzchlbu-fhyuior, protein bars with 10-15 g of protein [...] discussed. Assessment & Plan (05/01/2017 10:37 PM TREE INSPECTOR): Obesity is improving with treatment. Discussed the [...] time. Assessment & Plan (05/01/2017 10:37 PM TREE INSPECTOR): Hypertension is improving with treatment. Continue current [...] on file Legal Sex Male 5:22 PM TREE INSPECTOR Gender Identity Not on file Sexual Orientation Not on file Last Filed Vital Signs Vital Sign Reading Time Taken Comments Blood Pressure 136/84 07/10/2024 4:54 PM TREE INSPECTOR Pulse 62 07/10/2024 4:54 PM TREE INSPECTOR Temperature 36.4 C (97.5 F) 07/10/2024 4:54 PM TREE INSPECTOR Respiratory Rate 16 07/10/2024 4:54 PM TREE INSPECTOR Oxygen Saturation 97% 07/10/2024 4:54 PM TREE INSPECTOR Inhaled Oxygen Concentration - - Weight 105.8 kg (233 lb 4 oz) 07/10/2024 10:09 A M TREE INSPECTOR Height 175.3 cm (5' 9) 07/10/2024 10:09 AM TREE INSPECTOR Body Mass Index 34.44 07/10/2024 10:09 AM TREE INSPECTOR Plan of Treatment Not on file Medical Devices Implanted Type Area General Operations Agent Device Identifier Shelf Expiration Date Model / Serial / Lot TitanFile Angio-Seal Vip 6fr Closere Device [id number] - [id number] Implanted:Qty: 1 on 10/12/2022 by Eliel Ortiz MD at [facility] Other - see comments [employer] Kalin 03/17/2023 [id number] / / [id number] [employer] 118730 4mm 44mm Compression Headless Foot Ankle Screw Bone - [id number] Implanted:Qty: 1 on 04/25/2019 by Chidi Rios DPM at [facility] Right: Toes [employer] [id number] / / [employer] [place] Ezm 03-27-10 Easyclip Si 2mm [id number] Monocortical Superelastic Reamer - [id number] Implanted:Qty: 1 on 04/25/2019 by Chidi Rios DPM at [facility] Right: Toes [employer] [place] 11/16/2023 EZIvett 03-27-10 / / [id number] [employer] Ezm 10-10-10 Easyclip Si 2mm [id number] Monocortical Superelastic Reamer - [id number] Implanted:Qty: 1 on 04/25/2019 by Chidi Rios DPM at [facility] Right: Toes [employer] [place] 11/16/2023 EZM 10-10-10 / / [id number] Toe Tac Xpress Hammertoe Fixation System Implanted:Qty: 2 on 04/25/2019 by Chidi Rios DPM at [facility] Right: Toes [employer] [id number] 05/27/2021 [id number] / [id number] / [id number] [employer] Wire Implanted:Qty: 1 on 04/25/2019 by Chidi Rios DPM at [facility] Right: Toes [employer] 07/18/2028 [id number] / / [id number] Procedures Procedure Name Priority Date/Time Associated Diagnosis Comments EGFR STAT 04/19/2023 3:53 PM CDT HEMOGLOBIN A1C Routine 12/13/2019 2:55 PM CDT LIPID PANEL Routine 05/17/2018 2:25 PM TREE INSPECTOR Type 2 diabetes mellitus with hyperglycemia, with long-term current use of insulin (HCC) from Last 3 Months or Most Recently Relevant to Health Maintenance Results * eGFR (04/19/2023 3:53 PM CDT) eGFR 51 mL/min/1. 73 m2 [facility] ([place]) Comment: Interpretive Data Reference Interval Normal >/= [...] ORDERABLE S Final Result Performing Organization Address City/[facility]/ZIP Co de Phone Number [facility] ([place]) 1 [facility] Department [place] [address] * (ABNORMAL) Hemoglobin A1c (12/13/2019 2:55 PM CDT) Blood specimen (specimen) 12/13/2019 2:55 PM CDT Narrative [facility] - 12/13/2019 2:55 PM CDT Results in labs Aliza Carlson MD LAB BLOOD ORDERABLES Becky l Result Performing Organization Address [facility]/ZIP Co de Phone Number [place], [place] [phone] * (ABNORMAL) Lipid panel (05/17/2018 2:25 PM TREE INSPECTOR) Cholesterol 159 30 - 199 mg/dL JANUARY [...] 2018. Triglycerides 143 <=149 mg/dL [facility] ([place]) Comment: Interpretive Data Ages < or = [...] (EVER) Blood specimen (specimen) 05/17/2018 2:25 PM TREE INSPECTOR 05/17/2018 5:15 PM TREE INSPECTOR Narrative [facility] ([place]) - 05/17/2018 6:14 PM TREE INSPECTOR Cleoja Levi Sims MD LAB BLOOD ORDERABLE S Final Result [facility] ([place]) 1 [facility] Department [place] [address] from Last 3 Months or Most Recently Relevant to Health Maintenance Insurance IDPA [facility] MEDICARE ADVANTAGE MEDICARE [facility] MEDICARE ADVANTAGE [facility] MEDICARE ADVANTAGE IDPA [facility] MEDICARE ADVANTAGE Advance Directives For more information, please contact: [phone] * Full Code (Latest Code Status on File) Date Activated Date Inactivated Comments 10/12/2022 2:12 PM 10/12/2022 10:46 PM * Full Code Date Activated Date Inactivated Comments 09/24/2017 9:04 PM 09/30/2017 5:22 PM Care Teams Mica Miner Relationship Specialty Start Date End Date Tad Mcintosh DO [address] [place] [address] PCP - General Family Medicine 1/9/25
[2025-01-10 16:36] LABS: Troponin I < 0.012 ng/mL (0.000-0.034)
[2025-01-10] MEDS: INSULIN HUMAN REGULAR (*BKC) 1,000 UNITS/10 ML VIAL 7 UNITS IV PUSH (16:42)
[2025-01-10] MEDS: SODIUM CHLORIDE 0.9% IV 1,000 ML 150 ML IV CONT (16:47)
[2025-01-10] MEDS: INSULIN HUMAN REGULAR (*BKC) 1,000 UNITS/10 ML VIAL 5 UNITS IV PUSH (17:30)
== END 2025-01-10 18:25 | disposition short-term general hospital (02) ==
PROVIDERS: Emergency Provider Internal Medicine Critical Care Medicine; PCP Family Medicine
DX: I63.9 Cerebral infarction, unspecified (principal); E11.65 Type 2 diabetes mellitus with hyperglycemia; I10 Essential (primary) hypertension; Z79.01 Long term (current) use of anticoagulants; Z87.891 Personal history of nicotine dependence
CPT/HCPCS: 36415; 70450; 80053; 82948; 84484; 85025; 85610; 85730; 93005; 96361; 96374; 96376; 99285; J1815; J7030

== ENCOUNTER 2025-01-14 18:24 | Emergency (ER) | payer MEDICARE, MEDICAID, SELFPAY ==
[2025-01-14] VITALS (8 sets, daily range): BP systolic 119–129; BP diastolic 67–79; PULSE 54–72; RESP 2–21; TEMP 36.4–37.1; O2SAT 93–97
--- NOTE | ~2025-01-14 | XR_ITS ---
EXAMINATION: XR chest 1V portable Exam Date/Time: 01/14/2025 19:14 CDT HISTORY: cough Comparison: 05/13/2024. RESULT: Lines, tubes, and devices: None. Lungs and pleura: Clear. Cardiomediastinal silhouette: Stable. Other: No acute osseous or upper abdominal finding. IMPRESSION: No acute cardiopulmonary process. Reviewed, dictated and finalized at location K.
--- OUTSIDE RECORDS SUMMARY | 2025-01-14 18:26 | XMS_ITS | Encounter Summary ---
Author Organization [facility] Address [address] [facility] [address] [place] [address] Phone Care Team Providers Care Family Day Care Provider Name Role Phone Jabier Peck MD Primary Care Provider + [phone] Srikanth Adrian MD Unavailable Tad Romero MD Primary Care Provider [phone] Glorai Martinez MD Unavailable [phone] Reason for Visit * Reason Comments Medication Refill Encounter Details Date Type Department Care Team (Late st Contact Info) Description 08/19/2021 Refill [facility] [address] [place] [address] Jabier Peck MD [address] [address] Medication Refill Social History Tobacco Use Types [...] CDT Gender Identity Male 05/03/2023 12:44 PM OIL SEPARATOR Sexual Orientation Lesbian or Wolff 05/03/2023 12 :44 PM OIL SEPARATOR COVID-19 Exposure Response Date Recorded In the last month, have you been in contact with someone who was confirmed or suspected to have Coronavirus / COVID-19? No / Unsure 08/01/2021 1:35 PM OIL SEPARATOR documented as of this encounter Miscellaneous Notes [...] [facility] 08/20/20 Telemedicine Kishore Prieto APRN, SPECIALTY PERSON [facility] Showing recent visits within past 365 days and meeting all other requirements Future Appointments Date Type Provider Dept 10/31/21 Appointment Jabier Peck MD [facility] Showing future appointments within next 90 days and meeting all other requirements SEPARATOR documented in this encounter Plan of Treatment Not on file documented as of this encounter Visit Diagnoses Diagnosis Cervical radiculopathy Brachial neuritis or radiculitis nos documented in this encounter Additional Health Concerns Infection Onset Date Last Indicated Resolved Time COVID - 19 Confirmed 05/31/2022 05/31/2022 023 12:16 AM OIL SEPARATOR Respiratory Rule Out - RPA 02/26/2023 02/26/2023 0 02/26/2023 11:31 AM CDT COVID - 19 02/26/2023 02/26/2023 03/08/2023 12:1 6 AM CDT documented as of this encounter Care Teams Family Day Care Provider Relationship Specialty Start Date End Date Jabier Peck MD #2 [facility] [address] [place] [address] PCP - General Family Medicine 06/22/20 01/16/24 Tad Mcintosh MD [address] [place] [address] PCP - General Family Medicine 01/17/24 Srikanth Adrian MD #2 [facility] [address] [place] [address] Computer Network And Systems Engineer Cardiovascular Disease - Cardiology 02/02/22 08/06/24 Gloria Martinez MD #2 [facility] [address] [place] [address] Consulting Physician Urology 04/30/24 documented as of this encounter
--- OUTSIDE RECORDS SUMMARY | 2025-01-14 18:26 | XMS_ITS | Encounter Summary ---
Author Organization [facility] Address [address] [facility] [place] [place] [address] Phone Care Team Providers Care Retail Selling Specialist Name Role Phone Jabier Peck MD Primary Care Provider + [phone] Srikanth Adrian MD Unavailable Tad Romero MD Primary Care Provider [phone] Gloria Martinez MD Unavailable [phone] Reason for Visit * Reason Comments Medication Refill Encounter Details Date Type Department Care Team (Late st Contact Info) Description 11/23/2021 Refill [facility] [address] [place] [address] Jabier Peck MD [address] [address] Medication Refill Social History Tobacco Use Types [...] Gender Identity Male 05/03/2023 12:44 PM SUPERVISOR COOPERAGE SHOP Sexual Orientation Lesbian or Wolff 05/03/2023 12 :44 PM SUPERVISOR COOPERAGE SHOP documented as of this encounter Miscellaneous Notes [...] [place] 03/16/21 Office Visit Kishore Prieto APRN, PHOTOENGRAVING HELPER [facility] Showing recent visits within past 365 days [...] Confirmed 05/31/2022 05/31/2022 023 12:16 AM SUPERVISOR COOPERAGE SHOP Respiratory Rule Out - RPA 02/26/2023 02/26/2023 0 02/26/2023 11:31 AM CDT COVID - 19 02/26/2023 02/26/2023 03/08/2023 12:1 6 AM CDT documented as of this encounter Care Teams Retail Selling Specialist Relationship Specialty Start Date End Date Jabier Peck MD #[address] [address] PCP - General Family Medicine 06/22/20 01/16/24 Tad Mcintosh MD [address] [place] [address] PCP - General Family Medicine 01/17/24 Srikanth Adrian MD #2 [facility] [address] [place] [address] Scale Assembly Set Up Worker Cardiovascular Disease - Cardiology 02/02/22 08/06/24 Gloria Martinez MD #2 [facility] [address] [place] [address] Consulting Physician Urology 04/30/24 documented as of this encounter
--- OUTSIDE RECORDS SUMMARY | 2025-01-14 18:26 | XMS_ITS | Encounter Summary ---
Author Organization [facility] Address [address] [facility] [place] [address] Phone Care Team Providers Care Vegetable Cutter Name Role Phone Jabier Peck MD Primary Care Provider + -[phone] Srikanth Adrian MD Unavailable Tad Romero MD Primary Care Provider [phone] Gloria Martinez MD Unavailable [phone] Reason for Visit * Reason Comments Medication Refill Encounter Details Date Type Department Care Team (Late st Contact Info) Description 09/22/2021 Refill [facility] #2 [place] [address] Jabier Peck MD #[address] [address] Medication Refill Social History Tobacco Use Types [...] CDT Gender Identity Male 05/03/2023 12:44 PM BRAND INSPECTOR Sexual Orientation Lesbian or Wolff 05/03/2023 12 :44 PM BRAND INSPECTOR COVID-19 Exposure Response Date Recorded In [...] Provider Dept 09/27/21 Appointment Kishore Prieto APRN, FREEZER PERSON Sarah [facility] 10/31/21 Appointment Jabier Peck MD [facility] [...] 19 Confirmed 05/31/2022 05/31/2022 023 12:16 AM BRAND INSPECTOR Respiratory Rule Out - RPA 02/26/2023 02/26/2023 0 02/26/2023 11:31 AM CDT COVID - 19 02/26/2023 02/26/2023 03/08/2023 12:1 6 AM CDT documented as of this encounter Care Teams Vegetable Cutter Relationship Specialty Start Date End Date Jabier Peck MD #2 [facility] [address] [place] [address] PCP - General Family Medicine 06/22/20 01/16/24 Tad Mcintosh MD [address] [place] [address] PCP - General Family Medicine 01/17/24 Srikanth Adrian MD #2 [facility] [address] [place] [address] Rehabilitation Medicine Physician Cardiovascular Disease - Cardiology 02/02/22 08/06/24 Gloria Martinez MD #2 [facility] [address] [place] [address] Consulting Physician Urology 04/30/24 documented as of this encounter
--- OUTSIDE RECORDS SUMMARY | 2025-01-14 18:26 | XMS_ITS | Encounter Summary ---
Author Organization [facility] Address [address] [facility] [place] [address] Phone Care Team Providers Care Activity Aid Name Role Phone Jabier Peck MD Primary Care Provider + -[phone] Srikanth Adrian MD Unavailable Tad Romero MD Primary Care Provider [phone] Gloria Martinez MD Unavailable [phone] Reason for Visit * Reason Comments Medication Refill Encounter Details Date Type Department Care Team (Late st Contact Info) Description 10/21/2021 Refill [facility] #2 [place] [address] Jabier Peck MD #[address] [address] Medication Refill Social History Tobacco Use Types [...] CDT Gender Identity Male 05/03/2023 12:44 PM POLISHING WHEEL 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 Sexual Orientation Lesbian or Wolff 05/03/2023 12 :44 PM POLISHING WHEEL REPAIRER documented as of this encounter Miscellaneous [...] 19 Confirmed 05/31/2022 05/31/2022 023 12:16 AM POLISHING WHEEL REPAIRER Respiratory Rule Out - RPA 02/26/2023 02/26/2023 0 02/26/2023 11:31 AM CDT COVID - 19 02/26/2023 02/26/2023 03/08/2023 12:1 6 AM CDT documented as of this encounter Care Teams Activity Aid Relationship Specialty Start Date End Date Jabier Peck MD #2 [facility] [address] [place] [address] PCP - General Family Medicine 06/22/20 01/16/24 Tad Mcintosh MD [address] [place] [address] PCP - General Family Medicine 01/17/24 Srikanth Adrian MD #2 [facility] [address] [place] [address] Retail Support Associate Cardiovascular Disease - Cardiology 02/02/22 08/06/24 Gloria Martinez MD #[address] [facility] [address] [place] [address] Consulting Physician Urology 04/30/24 documented as of this encounter
--- OUTSIDE RECORDS SUMMARY | 2025-01-14 18:26 | XMS_ITS | Encounter Summary ---
Author Organization [facility] Address [address] [facility] [address] [address] Phone Care Team Providers Care Desk Sergeant Name Role Phone Jabier Peck MD Primary Care Provider + -[phone] Srikanth Adrian MD Unavailable Tad Romero MD Primary Care Provider +-[phone] Gloria Martinez MD Unavailable [phone] Reason for Visit * Reason Comments Medication Refill Encounter Details Date Type Department Care Team (Late st Contact Info) Description 12/11/2021 Refill [facility] #2 [place] [address] Jabier Peck MD #[address] [address] Medication Refill Social History Tobacco Use Types [...] CDT Gender Identity Male 05/03/2023 12:44 PM 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 Sexual Orientation Lesbian or Wolff 05/03/2023 12 :44 PM PENSIONS 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 COVID-19 Exposure Response Date Recorded In [...] Dept 12/13/21 Appointment Kishore Prieto APRN, RICHARD [facility] [...] 19 Confirmed 05/31/2022 05/31/2022 023 12:16 AM PENSIONS 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 Respiratory Rule Out - RPA 02/26/2023 02/26/2023 0 02/26/2023 11:31 AM CDT COVID - 19 02/26/2023 02/26/2023 03/08/2023 12:1 6 AM CDT documented as of this encounter Care Teams Desk Sergeant Relationship Specialty Start Date End Date Jabier Peck MD #2 [facility] [address] [place] [address] PCP - General Family Medicine 06/22/20 01/16/24 Tad Mcintosh MD [address] [place] [address] PCP - General Family Medicine 01/17/24 Srikanth Adrian MD #2 [facility] [address] [place] [address] Financial Adviser Cardiovascular Disease - Cardiology 02/02/22 08/06/24 Gloria Martinez MD #2 [facility] [address] [place] [address] Consulting Physician Urology 04/30/24 documented as of this encounter
--- OUTSIDE RECORDS SUMMARY | 2025-01-14 18:26 | XMS_ITS | Encounter Summary ---
Author Organization [facility] Address [address] [facility] [place] [address] Phone Care Team Providers Care Classroom Monitor Name Role Phone Jabier Kwok MD Primary Care Provider + -[phone] Srikanth Adrian MD Unavailable Tad Romero MD Primary Care Provider [phone] Gloria Martinez MD Unavailable [phone] Reason for Visit * Reason Comments Medication Refill Encounter Details Date Type Department Care Team (Late st Contact Info) Description 01/23/2022 Refill [facility] #2 [place] [address] Jabier Kwok MD #[address] [address] Medication Refill Social History Tobacco Use Types [...] CDT Gender Identity Male 05/03/2023 12:44 PM COMMUNITY DEVELOPMENT AIDE Sexual Orientation Lesbian or Wolff 05/03/2023 12 :44 PM COMMUNITY DEVELOPMENT AIDE COVID-19 Exposure Response Date Recorded In the [...] Dept 12/13/21 Telemedicine Kishore Prieto APRN, CNP [facility] 08/01/21 Office Visit Jabier Kwok MD [facility] [place] 04/29/21 Office Visit Jabier Kwok MD [facility] [place] 03/16/21 Office Visit Kishore Prieto APRN, RICH[facility] [place] Showing recent visits within past 365 days and meeting all other requirements Future Appointments Date Type Provider Dept 01/31/22 Appointment Kishore Prieto APRN, RICHARD [facility] [place] Showing future appointments within next 90 [...] [facility] 04/29/21 Office Visit Jabier Kwok MD [facility] [place] Showing recent visits within past 270 days and meeting all other requirements Future Appointments Date Type Provider Dept 01/31/22 Appointment Kishore Prieto APRN, FINANCING ANALYST [facility] Showing future appointments within next 90 [...] 19 Confirmed 05/31/2022 05/31/2022 023 12:16 AM COMMUNITY DEVELOPMENT AIDE Respiratory Rule Out - RPA 02/26/2023 02/26/2023 0 02/26/2023 11:31 AM CDT COVID - 19 02/26/2023 02/26/2023 03/08/2023 12:1 6 AM CDT documented as of this encounter Care Teams Classroom Monitor Relationship Specialty Start Date End Date Jabier Kwok MD #[address] [address] PCP - General Family Medicine 06/22/20 01/16/24 Tad Mcintosh MD [address] [place] [address] PCP - General Family Medicine 01/17/24 Srikanth Adrian MD #2 [facility] [address] [place] [address] Applications Chemist Cardiovascular Disease - Cardiology 02/02/22 08/06/24 Gloria Martinez MD #2 [facility] [address] [place] [address] Consulting Physician Urology 04/30/24 documented as of this encounter
--- OUTSIDE RECORDS SUMMARY | 2025-01-14 18:26 | XMS_ITS | Encounter Summary ---
Author Organization [facility] Address [address] [facility] [place] [address] Phone Care Team Providers Care Report Manager Name Role Phone Jabier Peck MD Primary Care Provider + [phone] Srikanth Adrian MD Unavailable Tad Romero MD Primary Care Provider [phone] Gloria Martinez MD Unavailable [phone] Reason for Visit * Reason Comments Medication Refill Encounter Details Date Type Department Care Team (Late st Contact Info) Description 02/24/2022 Refill [facility] #2 [place] [address] Jabier Peck MD #[address] [address] Medication Refill Social History Tobacco Use Types [...] CDT Gender Identity Male 05/03/2023 12:44 PM 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 Sexual Orientation Lesbian or Wolff 05/03/2023 12 :44 PM REAMING PRESS OPERATOR COVID-19 Exposure Response Date Recorded [...] Dept 01/31/22 Office Visit Kishore Prieto APRN, CNP [facility] 12/13/21 Telemedicine Kishore Prieto APRN, CNP [facility] 08/01/21 Office Visit Jabier Peck MD [facility] 04/29/21 Office Visit Jabier Peck MD [facility] 03/16/21 Office Visit Kishore Prieto APRN, RICHARD [facility] Showing recent visits within past 365 days and meeting all other requirements Today's Visits Date Type Provider Dept 02/24/22 Appointment Kishore Prieto APRN, CNP [facility] Showing today's visits and meeting all [...] Resolved Time COVID - 19 Confirmed 05/31/2022 05/31/202203/2 023 12:16 AM REAMING PRESS OPERATOR Respiratory Rule Out - RPA 02/26/2023 02/26/2023 0 02/26/2023 11:31 AM CDT COVID - 19 02/26/2023 02/26/2023 03/08/2023 12:1 6 AM CDT documented as of this encounter Care Teams Report Manager Relationship Specialty Start Date End Date Jabier Peck MD #2 [facility] [address] [place] [address] PCP - General Family Medicine 06/22/20 01/16/24 Tad Mcintosh MD [address] [place] [address] PCP - General Family Medicine 01/17/24 Srikanth Adrian MD #[address] [facility] [address] [place] [address] Carbide Operator Cardiovascular Disease - Cardiology 02/02/22 08/06/24 Gloria Martinez MD #2 [facility] [address] [place] [address] Consulting Physician Urology 04/30/24 documented as of this encounter
--- OUTSIDE RECORDS SUMMARY | 2025-01-14 18:26 | XMS_ITS | Encounter Summary ---
Author Organization [facility] Address [address] [facility] [place] [place] [address] Phone Care Team Providers Care Manager Book Name Role Phone Jabier Peck MD Primary Care Provider + [phone] Srikanth Adrian MD Unavailable Tad Romero MD Primary Care Provider [phone] Gloria Martinez MD Unavailable [phone] Reason for Visit * Reason Comments Medication Refill Encounter Details Date Type Department Care Team (Late st Contact Info) Description 02/22/2022 Refill [facility] #2 [place] [address] Jabier Peck MD #[address] [address] Medication Refill Social History Tobacco Use Types [...] CDT Gender Identity Male 05/03/2023 12:44 PM QUARTZ MINER BLASTING Sexual Orientation Lesbian or Wolff 05/03/2023 12 :44 PM QUARTZ MINER BLASTING COVID-19 Exposure Response Date Recorded In the [...] [facility] 08/01/21 Office Visit Jabier Peck MD [facility] 04/29/21 Office Visit Jabier Peck MD [facility] 03/16/21 Office Visit Kishore Prieto APRN, RICH[facility] [place] Showing recent visits within past 365 [...] 19 Confirmed 05/31/2022 05/31/2022 023 12:16 AM QUARTZ MINER BLASTING Respiratory Rule Out - RPA 02/26/2023 02/26/2023 0 02/26/2023 11:31 AM CDT COVID - 19 02/26/2023 02/26/2023 03/08/2023 12:1 6 AM CDT documented as of this encounter Care Teams Manager Book Relationship Specialty Start Date End Date Jabier Peck MD #2 [facility] [address] [place] [address] PCP - General Family Medicine 06/22/20 01/16/24 Tad Mcintosh MD [address] [place] [address] PCP - General Family Medicine 01/17/24 Srikanth Adrian MD #2 [facility] [address] [place] [address] Defensive Line Coach Cardiovascular Disease - Cardiology 02/02/22 08/06/24 Gloria Martinez MD #2 [facility] [address] [place] [address] Consulting Physician Urology 04/30/24 documented as of this encounter
--- OUTSIDE RECORDS SUMMARY | 2025-01-14 18:26 | XMS_ITS | Encounter Summary ---
Author Organization [facility] Address [address] [facility] [place] [address] Phone Care Team Providers Care Medical Interpreter Name Role Phone Jabier Peck MD Primary Care Provider [phone] Srikanth Adrian MD Unavailable Tad Romero MD Primary Care Provider [phone] Gloria Martinez MD Unavailable [phone] Reason for Visit * Reason Onset Date Comments Medication Refill 10/27/2021 Encounter Details Date Type Department Care Team (Late st Contact Info) Description 10/27/2021 Refill [facility] - Family Medicine [facility] #2 [place] [address] Jabier Peck MD #[address] [address] Medication Refill Social History Tobacco Use Types [...] CDT Gender Identity Male 05/03/2023 12:44 PM RATOPRINTER Sexual Orientation Lesbian or Wolff 05/03/2023 12 :44 PM RATOPRINTER documented as of this encounter Miscellaneous Notes [...] 19 Confirmed 05/31/2022 05/31/2022 023 12:16 AM RATOPRINTER Respiratory Rule Out - RPA 02/26/2023 02/26/2023 0 02/26/2023 11:31 AM CDT COVID - 19 02/26/2023 02/26/2023 03/08/2023 12:1 6 AM CDT documented as of this encounter Care Teams Medical Interpreter Relationship Specialty Start Date End Date Jabier Peck MD #2 [facility] [address] [place] [address] PCP - General Family Medicine 06/22/20 01/16/24 Tad Mcintosh MD [address] [place] [address] PCP - General Family Medicine 01/17/24 Srikanth Adrian MD #2 [facility] [address] [place] [address] Export Freight Specialist Cardiovascular Disease - Cardiology 02/02/22 08/06/24 Gloria Martinez MD #2 [facility] [address] [place] [address] Consulting Physician Urology 04/30/24 documented as of this encounter
--- OUTSIDE RECORDS SUMMARY | 2025-01-14 18:26 | XMS_ITS | Encounter Summary ---
Author Organization [facility] Address [address] [facility] [place] [address] Phone Care Team Providers Care Intelligence Engineer Name Role Phone Jabier Peck MD Primary Care Provider [phone] Srikanth Adrian MD Unavailable Tad Romero MD Primary Care Provider [phone] Gloria Martinez MD Unavailable [phone] Reason for Visit * Reason Onset Date Comments Medication Refill 12/28/2021 Encounter Details Date Type Department Care Team (Late st Contact Info) Description 12/28/2021 Refill [facility] Medical Group - Family Medicine [facility] #2 [place] [address] Jabier Peck MD #[address] [address] Medication Refill Social History Tobacco Use Types [...] CDT Gender Identity Male 05/03/2023 12:44 PM PLANNING TECHNICIAN Sexual Orientation Lesbian or Wolff 05/03/2023 12 :44 PM PLANNING TECHNICIAN COVID-19 Exposure Response Date Recorded In the last 10 days, have yo u been in contact with someone who was confirmed or suspected to have Coronavirus/COVID-19? No / Unsure 12/30/2021 3:33 PM CDT documented as of this encounter Miscellaneous Notes * Telephone Encounter - Yadira York - 12/28/2021 9:41 AM CDT Received a faxed Rx request from pharmacy. Reordered refill medication(s) requested and pended for nurse and physician/MARVA review. Refill encounter routed to nurse [employer]'s pool for processing. documented in this encounter Plan of Treatment Not on file documented as of this encounter Visit Diagnoses Not on filedocumented in this encounter Additional Health Concerns Infection Onset Date Last Indicated Resolved Time COVID - 19 Confirmed 05/31/2022 05/31/2022 023 12:16 AM PLANNING TECHNICIAN Respiratory Rule Out - RPA 02/26/2023 02/26/2023 0 02/26/2023 11:31 AM CDT COVID - 19 02/26/2023 02/26/2023 03/08/2023 12:1 6 AM CDT documented as of this encounter Care Teams Intelligence Engineer Relationship Specialty Start Date End Date Jabier Peck MD #[address] [address] PCP - General Family Medicine 06/22/20 01/16/24 Tad Mcintosh MD [address] [place] [address] PCP - General Family Medicine 01/17/24 Srikanth Adrian MD #[address] [address] Research Physiologist Cardiovascular Disease - Cardiology 02/02/22 08/06/24 Gloria Martinez MD #2 [facility] [address] [address] Consulting Physician Urology 04/30/24 documented as of this encounter
--- OUTSIDE RECORDS SUMMARY | 2025-01-14 18:27 | XMS_ITS | Encounter Summary ---
Author Organization [facility] Address [address] [facility] [place] [address] Phone Care Team Providers Care Assembler Production Line Name Role Phone Jabier Peck MD Primary Care Provider + [phone] Srikanth Adrian MD Unavailable Tad Romero MD Primary Care Provider [phone] Gloria Martinez MD Unavailable [phone] Reason for Visit * Reason Comments Medication Refill Encounter Details Date Type Department Care Team (Late st Contact Info) Description 06/21/2022 Refill [facility] #2 [place] [address] Jabier Peck MD #[address] [address] Medication Refill Social History Tobacco Use Types [...] CDT Gender Identity Male 05/03/2023 12:44 PM HOUSEKEEPING DIRECTOR Sexual Orientation Lesbian or Wolff 05/03/2023 12 :44 PM HOUSEKEEPING DIRECTOR COVID-19 Exposure Response Date Recorded In the last 10 days, have yo u been in contact with someone who was confirmed or suspected to have Coronavirus/COVID-19? Yes 05/31/2022 2:12 PM HOUSEKEEPING DIRECTOR documented as of this encounter Miscellaneous Notes * Telephone Encounter - Libertad Shearer RN - 06/21/2022 1:33 PM CST Name from pharmacy: [facility] MCG CAPSULE Will file in chart as: [facility] MCG Capsule The original prescription was discontinued on 02/24/2022 by Kishore Prieto APRN, RICHARD for thefollowing reason: Med List Clean Up. Renewing this prescription may not be appropriate. EKEEPING DIRECTOR documented in this encounter Plan of Treatment Not on file documented as of this encounter Visit Diagnoses Not on filedocumented in this encounter Additional Health Concerns Infection Onset Date Last Indicated Resolved Time Respiratory Rule Out - RPA 02/26/2023 02/26/2023 0 02/26/2023 11:31 AM CDT COVID - 19 02/26/2023 02/26/2023 03/08/2023 12:1 6 AM CDT documented as of this encounter Care Teams Assembler Production Line Relationship Specialty Start Date End Date Jabier Peck MD #[address] [address] PCP - General Family Medicine 06/22/20 01/16/24 Tad Mcintosh MD [address] [place] [address] PCP - General Family Medicine 01/17/24 Srikanth Adrian MD #[address] [address] Heart Doctor Cardiovascular Disease - Cardiology 02/02/22 08/06/24 Gloria Martinez MD #[address] [address] Consulting Physician Urology 04/30/24 documented as of this encounter
--- OUTSIDE RECORDS SUMMARY | 2025-01-14 18:27 | XMS_ITS | Encounter Summary ---
Author Organization [facility] Address [address] [facility] [place] [address] Phone Care Team Providers Care Private Tutors And Teachers Name Role Phone Jabier Peck MD Primary Care Provider [phone] Srikanth Adrian MD Unavailable Tad Romero MD Primary Care Provider [phone] Gloria Martinez MD Unavailable [phone] Reason for Visit * Reason Onset Date Comments Medication Refill 03/23/2021 Encounter Details Date Type Department Care Team (Late st Contact Info) Description 03/23/2021 Refill [facility] Medical Group - Family Medicine [facility] #2 [place] [address] Jabier Peck MD #[address] [address] Medication Refill Social History Tobacco Use Types [...] CDT Gender Identity Male 05/03/2023 12:44 PM LOGISTICS PLANNING MANAGER Sexual Orientation Lesbian or Wolff 05/03/2023 12 :44 PM LOGISTICS PLANNING MANAGER COVID-19 Exposure Response Date Recorded In [...] Outpatient Visits 1 week ago Cervical radiculopathy [facility] - Kishore Alonso APN, CRIB TENDER 4 months ago Dermatitis [facility] - Kishore Alonso APN, CRIB TENDER 5 months ago Diet-controlled diabetes mellitus (HCC) [facility] - Jabier Aldridge MD 7 months ago Thrombophilia (HCC) [facility] - Kishore Alonso APN, CRIB TENDER 7 months ago Obstructive sleep apnea syndrome [facility] Morgan APN, CRIB TENDER Upcoming Appointments Future Appointments Tomorrow [facility] RESP ROOM1 [facility] Respiratory Therapy, [facility] In 1 week Sofy Bowen, PT [facility]hab at [facility], [facility] In 2 weeks Jabier Peck MD [facility] In 1 month Aria Delong APN, COMMUNITY OUTREACH ADVOCATE [facility] Neurology [facility] In 5 Jt Gupta MD [facility] - [facility] Center Oncology Services, [facility] PARISH WORKER - Recent and Past Visits Recent Visits Date Type Provider Dept 03/16/21 Office Visit Kishore Prieto APN, RICHARD [facility] [place] 11/16/20 Office Visit Kishore Prieto APN, RICHARD [facility] [place] 10/20/20 Office Visit Jabier Peck MD [facility] [place] 08/20/20 Telemedicine Kishore Prieto APN, RICHARD [facility] [place] 08/06/20 Telemedicine Kishore Prieto APN, RICHARD [facility] [place] 06/22/20 Office Visit Kishore Prieto APN, CRIB TENDER [facility] [place] Showing recent visits within past 460 days with a meds authorizing provider and meeting all other requirements Future Appointments Date Type Provider Dept 04/08/21 Appointment Jabier Peck MD [facility] [place] Showing future appointments within next 90 [...] 19 Confirmed 05/31/2022 05/31/2022 023 12:16 AM LOGISTICS PLANNING MANAGER Respiratory Rule Out - RPA 02/26/2023 02/26/2023 0 02/26/2023 11:31 AM CDT COVID - 19 02/26/2023 02/26/202303/0803/08/2023 12:1 6 AM CDT documented as of this encounter Care Teams Private Tutors And Teachers Relationship Specialty Start Date End Date Jabier Peck MD #2 [facility] [address] [place] [address] PCP - General Family Medicine 06/22/20 01/16/24 Tad Mcintosh MD [address] [place] [address] PCP - General Family Medicine 01/17/24 Srikanth Adrian MD #[address] [address] Licensing Director Cardiovascular Disease - Cardiology 02/02/22 08/06/24 Gloria Martinez MD #[address] [address] Consulting Physician Urology 04/30/24 documented as of this encounter
--- OUTSIDE RECORDS SUMMARY | 2025-01-14 18:27 | XMS_ITS | Encounter Summary ---
Author Organization [facility] Address [address] [facility] [place] [address] Phone Care Team Providers Care Welt Rougher Name Role Phone Jabier Peck MD Primary Care Provider + -[phone] Srikanth Adrian MD Unavailable Tad Romero MD Primary Care Provider +-[phone] Gloria Martinez MD Unavailable [phone] Reason for Visit * Reason Comments Medication Refill Encounter Details Date Type Department Care Team (Late st Contact Info) Description 03/29/2022 Refill [facility] #2 [place] [address] Jabier Peck MD #[address] [address] Medication Refill Social History Tobacco Use Types [...] CDT Gender Identity Male 05/03/2023 12:44 PM MANNEQUIN MOLD MAKER Sexual Orientation Lesbian or Wolff 05/03/2023 12 :44 PM MANNEQUIN MOLD MAKER COVID-19 Exposure Response Date Recorded In [...] 19 Confirmed 05/31/2022 05/31/2022 023 12:16 AM MANNEQUIN MOLD MAKER Respiratory Rule Out - RPA 02/26/2023 02/26/2023 0 02/26/2023 11:31 AM CDT COVID - 19 02/26/2023 02/26/2023 03/08/2023 12:1 6 AM CDT documented as of this encounter Care Teams Welt Rougher Relationship Specialty Start Date End Date Jabier Peck MD #2 [facility] [address] [place] [address] PCP - General Family Medicine 06/22/20 01/16/24 Tad Mcintosh MD [address] [place] [address] PCP - General Family Medicine 01/17/24 Srikanth Adrian MD #2 [facility] [address] [place] [address] Lead Principal Technical Architect Cardiovascular Disease - Cardiology 02/02/22 08/06/24 Gloria Martinez MD #2 [facility] [address] [place] [address] Consulting Physician Urology 04/30/24 documented as of this encounter
--- OUTSIDE RECORDS SUMMARY | 2025-01-14 18:27 | XMS_ITS | Encounter Summary ---
Author Organization [facility] Address [address] [facility] [place] [address] Phone Care Team Providers Care Capital Campaign Fundraiser Name Role Phone Jabier Peck MD Primary Care Provider + -[phone] Srikanth Adrian MD Unavailable Tad Romero MD Primary Care Provider +-[phone] Gloria Martinez MD Unavailable [phone] Reason for Visit * Reason Comments Medication Refill Encounter Details Date Type Department Care Team (Late st Contact Info) Description 10/24/2022 Refill [facility] #2 [place] [address] Jabier Peck MD #[address] [address] Medication Refill Social History Tobacco Use Types [...] CDT Gender Identity Male 05/03/2023 12:44 PM MAINTENANCE AND REPAIR WORKER Sexual Orientation Lesbian or Wolff 05/03/2023 12 :44 PM MAINTENANCE AND REPAIR WORKER documented as of this encounter Miscellaneous [...] documented as of this encounter Care Teams Capital Campaign Fundraiser Relationship Specialty Start Date End Date Jabier Peck MD #2 [facility] [address] [place] [address] PCP - General Family Medicine 06/22/20 01/16/24 Tad Mcintosh MD [address] [place] [address] PCP - General Family Medicine 01/17/24 Srikanth Adrian MD #2 [facility] [address] [place] [address] Evp Head Of [employer] Experience Strategy Cardiovascular Disease - Cardiology 02/02/22 08/06/24 Gloria Martinez MD #2 [facility] [address] [place] [address] Consulting Physician Urology 04/30/24 documented as of this encounter
--- OUTSIDE RECORDS SUMMARY | 2025-01-14 18:27 | XMS_ITS | Encounter Summary ---
Author Organization [facility] Address [address] [facility] [place] [address] Phone Care Team Providers Care Leather Goods Sales Representative Name Role Phone Jabier Peck MD Primary Care Provider + -[phone] Srikanth Adrian MD Unavailable Tad Romero MD Primary Care Provider +-[phone] Gloria Martinez MD Unavailable [phone] Reason for Visit * Reason Comments Medication Refill Encounter Details Date Type Department Care Team (Late st Contact Info) Description 02/27/2023 Refill [facility] #2 [place] [address] Jabier Peck MD #[address] [address] Medication Refill Social History Tobacco Use Types [...] CDT Gender Identity Male 05/03/2023 12:44 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 Sexual Orientation Lesbian or Wolff 05/03/2023 12 :44 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 COVID-19 Exposure Response Date Recorded In [...] documented as of this encounter Care Teams Leather Goods Sales Representative Relationship Specialty Start Date End Date Jabier Peck MD #[address] [address] PCP - General Family Medicine 06/22/20 01/16/24 Tad Mcintosh MD [address] [place] [address] PCP - General Family Medicine 01/17/24 Srikanth Adrian MD #[address] [address] Heating Unit Mechanic Cardiovascular Disease - Cardiology 02/02/22 08/06/24 Gloria Martinez MD #[address] [address] Consulting Physician Urology 04/30/24 documented as of this encounter
--- OUTSIDE RECORDS SUMMARY | 2025-01-14 18:27 | XMS_ITS | Encounter Summary ---
Author Organization [facility] Address [address] [facility] [place] [address] Phone Care Team Providers Care Elevator Operator Name Role Phone Jabier Peck MD Primary Care Provider + -[phone] Srikanth Adrian MD Unavailable Tad Romero MD Primary Care Provider +-[phone] Gloria Martinez MD Unavailable [phone] Reason for Visit * Reason Comments Medication Refill Encounter Details Date Type Department Care Team (Late st Contact Info) Description 03/19/2023 Refill [facility] #2 [place] [address] Jabier Peck MD #[address] [address] Medication Refill Social History Tobacco Use Types [...] CDT Gender Identity Male 05/03/2023 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 Sexual Orientation Lesbian or Wolff 05/03/2023 12 :44 PM HYDRAULIC PRESS TENDER COVID-19 Exposure Response Date Recorded In [...] [place] 11/30/22 Telemedicine Kishore Prieto APRN, CNP [facility] 08/21/22 Office Visit Jabier Peck MD [facility] 07/20/22 Office Visit Gerri Rocha MD [facility] [place] 05/03/22 Telemedicine Jabier Peck MD [facility] [place] [...] unspecified documented in this encounter Care Teams Elevator Operator Relationship Specialty Start Date End Date Jabier Peck MD #2 [facility] [address] [place] [address] PCP - General Family Medicine 06/22/20 01/16/24 Tad Mcintosh MD [address] [place] [address] PCP - General Family Medicine 01/17/24 Srikanth Adrian MD #2 [facility] [address] [place] [address] Single Needle Operator Cardiovascular Disease - Cardiology 02/02/22 08/06/24 Gloria Martinez MD #2 [facility] [address] [place] [address] Consulting Physician Urology 04/30/24 documented as of this encounter
--- OUTSIDE RECORDS SUMMARY | 2025-01-14 18:27 | XMS_ITS | Encounter Summary ---
Author Organization [facility] Address [address] [facility] [place] [address] Phone Care Team Providers Care Metal Casket Maker Name Role Phone Jabier Peck MD Primary Care Provider + -[phone] Srikanth Adrian MD Unavailable Tad Romero MD Primary Care Provider [phone] Gloria Martinez MD Unavailable [phone] Reason for Visit * Reason Onset Date Comments Medication Refill 03/28/2021 Encounter Details Date Type Department Care Team (Late st Contact Info) Description 03/28/2021 Refill [facility] - Family Medicine [facility] #2 [place] [address] Jabier Peck MD #[address] [address] Medication Refill Social History Tobacco Use Types [...] CDT Gender Identity Male 05/03/2023 12:44 PM LAY MIDWIFE Sexual Orientation Lesbian or Wolff 05/03/2023 12 :44 PM LAY MIDWIFE COVID-19 Exposure Response Date Recorded In the [...] Dept 03/16/21 Office Visit Kishore Prieto APN, EMBEDDED FIRMWARE DEVELOPER [facility] [place] 11/16/20 Office Visit Kishore Prieto APN, EMBEDDED FIRMWARE DEVELOPER [facility] 10/20/20 Office Visit [facility]ier [facility] [place] 08/20/20 Telemedicine Kishore Prieto APN, RICHARD [facility] [place] 08/06/20 Telemedicine Kishore Prieto APN, EMBEDDED FIRMWARE DEVELOPER [facility] 06/22/20 Office Visit Kishore Prieto APN, EMBEDDED FIRMWARE DEVELOPER [facility] [place] Showing recent visits within past 365 days and meeting all other requirements Future Appointments Date Type Provider Dept 04/08/21 Appointment Jabier Peck MD [facility] [place] Showing future appointments within next 90 days [...] 19 Confirmed 05/31/2022 05/31/2022 023 12:16 AM LAY MIDWIFE Respiratory Rule Out - RPA 02/26/2023 02/26/2023 0 02/26/2023 11:31 AM CDT COVID - 19 02/26/2023 02/26/2023 03/08/2023 12:1 6 AM CDT documented as of this encounter Care Teams Metal Casket Maker Relationship Specialty Start Date End Date Jabier Peck MD #2 [facility] [address] [place] [address] PCP - General Family Medicine 06/22/20 01/16/24 Tad Mcintosh MD [address] [place] [address] PCP - General Family Medicine 01/17/24 Srikanth Adrian MD #2 [facility] 205 [place] [address] Chief Gauger Cardiovascular Disease - Cardiology 02/02/22 08/06/24 Gloria Martinez MD #2 [facility] [address] [place] [address] Consulting Physician Urology 04/30/24 documented as of this encounter
--- OUTSIDE RECORDS SUMMARY | 2025-01-14 18:27 | XMS_ITS | Encounter Summary ---
Author Organization [facility] Address [address] [facility] [place] [address] Phone Care Team Providers Care Small Battery Plate Assembler Name Role Phone Jabier Peck MD Primary Care Provider + -[phone] Srikanth Adrian MD Unavailable Tad Romero MD Primary Care Provider [phone] Gloria Martinez MD Unavailable [phone] Reason for Visit * Reason Comments Medication Refill Encounter Details Date Type Department Care Team (Late st Contact Info) Description 06/20/2022 Refill [facility] #2 [place] [address] Jabier Peck MD #[address] [address] Medication Refill Social History Tobacco Use Types [...] CDT Gender Identity Male 05/03/2023 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 Yes 05/31/2022 2:12 PM BEADING INSTALLER documented as of this encounter Miscellaneous Notes [...] 90 days and meeting all other requirements ING INSTALLER documented in this encounter Plan of Treatment Not on file documented as of this encounter Visit Diagnoses Diagnosis Cervical radiculopathy Brachial neuritis or radiculitis nos documented in this encounter Additional Health Concerns Infection Onset Date Last Indicated Resolved Time COVID - 19 Confirmed 05/31/2022 05/31/2022 023 12:16 AM BEADING INSTALLER Respiratory Rule Out - RPA 02/26/2023 02/26/2023 0 02/26/2023 11:31 AM CDT COVID - 19 02/26/2023 02/26/2023 03/08/2023 12:1 6 AM CDT documented as of this encounter Care Teams Small Battery Plate Assembler Relationship Specialty Start Date End Date Jabier Peck MD #2 [facility] [address] [place] [address] PCP - General Family Medicine 06/22/20 01/16/24 Tad Mcintosh MD [address] [place] [address] PCP - General Family Medicine 01/17/24 Srikanth Adrian MD #2 [facility] [address] [place] [address] Music Professor Cardiovascular Disease - Cardiology 02/02/22 08/06/24 Gloria Martinez MD #2 [facility] [address] [place] [address] Consulting Physician Urology 04/30/24 documented as of this encounter
--- OUTSIDE RECORDS SUMMARY | 2025-01-14 18:27 | XMS_ITS | Encounter Summary ---
Author Organization [facility] Address [address] [facility] [place] [address] Phone Care Team Providers Care President And Chief Executive Officer Name Role Phone Jabier Peck MD Primary Care Provider + -[phone] Srikanth Adrian MD Unavailable Tad Romero MD Primary Care Provider +[phone] Gloria Martinez MD Unavailable [phone] Reason for Visit * Reason Comments Medication Refill Encounter Details Date Type Department Care Team (Late st Contact Info) Description 07/10/2022 Refill [facility] #2 [place] [address] Jabier Peck MD #[address] [address] Medication Refill Social History Tobacco Use Types [...] CDT Gender Identity Male 05/03/2023 12:44 PM DATA MANAGER Sexual Orientation Lesbian or Wolff 05/03/2023 12 :44 PM DATA MANAGER documented as of this encounter Miscellaneous Notes * Telephone Encounter - Anjali Hartley RN - 07/10/2022 12:34 PM DATA MANAGER Refill requested too soon. MANAGER documented in this encounter Plan of Treatment Not on file documented as of this encounter Visit Diagnoses Not on filedocumented in this encounter Additional Health Concerns Infection Onset Date Last Indicated Resolved Time Respiratory Rule Out - RPA 02/26/2023 02/26/2023 0 02/26/2023 11:31 AM CDT COVID - 19 02/26/2023 02/26/2023 03/08/2023 12:1 6 AM CDT documented as of this encounter Care Teams President And Chief Executive Officer Relationship Specialty Start Date End Date Jabier Peck MD #[address] [address] PCP - General Family Medicine 06/22/20 01/16/24 Tad Mcintosh MD [address] [place] [address] PCP - General Family Medicine 01/17/24 Srikanth Adrian MD #2 [facility] [address] [place] [address] Countersinker Cardiovascular Disease - Cardiology 02/02/22 08/06/24 Gloria Martinez MD #[address] [address] Consulting Physician Urology 04/30/24 documented as of this encounter
--- OUTSIDE RECORDS SUMMARY | 2025-01-14 18:27 | XMS_ITS | Encounter Summary ---
Author Organization [facility] Address [address] [facility] [place] [address] Phone Care Team Providers Care Traffic Controller Cable Name Role Phone Jabier Peck MD Primary Care Provider + -[phone] Srikanth Adrian MD Unavailable Tad Romero MD Primary Care Provider [phone] Gloria Martinez MD Unavailable [phone] Reason for Visit * Reason Comments Medication Refill Encounter Details Date Type Department Care Team (Late st Contact Info) Description 02/02/2021 Refill [facility] #2 [place] [address] Jabier Peck MD #[address] [address] Medication Refill Social History Tobacco Use Types [...] CDT Gender Identity Male 05/03/2023 12:44 PM PARKING ATTENDANT Sexual Orientation Lesbian or Wolff 05/03/2023 12 :44 PM PARKING ATTENDANT documented as of this encounter Miscellaneous Notes [...] 11/16/20 Office Visit Kishore Prieto APN, RICHARD [facility] [place] 10/20/20 Office Visit Jabier Peck MD [facility] [place] 08/20/20 Telemedicine Kishore Prieto APN, RICHARD [facility] [place] 08/06/20 Telemedicine Kishore Prieto APN, RICHARD [facility] [place] 06/22/20 Office Visit Kishore Prieto APN, RICHARD [facility] [place] Showing recent visits within past 365 days [...] 19 Confirmed 05/31/2022 05/31/2022 023 12:16 AM PARKING ATTENDANT Respiratory Rule Out - RPA 02/26/2023 02/26/2023 0 02/26/2023 11:31 AM CDT COVID - 19 02/26/2023 02/26/2023 03/08/2023 12:1 6 AM CDT documented as of this encounter Care Teams Traffic Controller Cable Relationship Specialty Start Date End Date Jabier Peck MD #2 [facility] [address] [place] [address] PCP - General Family Medicine 06/22/20 01/16/24 Tad Mcintosh MD [address] [place] [address] PCP - General Family Medicine 01/17/24 Srikanth Adrian MD #2 [facility] [address] [place] [address] Brazer Crawler Torch Cardiovascular Disease - Cardiology 02/02/22 08/06/24 Gloria Martinez MD #2 [facility] [address] [place] [address] Consulting Physician Urology 04/30/24 documented as of this encounter
--- OUTSIDE RECORDS SUMMARY | 2025-01-14 18:27 | XMS_ITS | Encounter Summary ---
Author Organization [facility] Address [address] [facility] [place] [address] Phone Care Team Providers Care Forming Process Line Worker Name Role Phone Jabier Peck MD Primary Care Provider + -[phone] Srikanth Adrian MD Unavailable Tad Romero MD Primary Care Provider +-[phone] Gloria Martinez MD Unavailable [phone] Reason for Visit * Reason Comments Medication Refill Encounter Details Date Type Department Care Team (Late st Contact Info) Description 05/14/2023 Refill [facility] #2 [place] [address] Jabier Peck MD #[address] [address] Medication Refill Social History Tobacco Use Types [...] CDT Gender Identity Male 05/03/2023 12:44 PM 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 FIELD 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 Sexual Orientation Lesbian or Wolff 05/03/2023 12 :44 PM 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 FIELD TECHNICIAN documented as of this encounter Miscellaneous [...] 90 days and meeting all other requirements HERIZATION FIELD TECHNICIAN documented in this encounter Plan of Treatment Not on file documented as of this encounter Visit Diagnoses Not on filedocumented in this encounter Care Teams Forming Process Line Worker Relationship Specialty Start Date End Date Jabier Peck MD #2 [facility] [address] [place] [address] PCP - General Family Medicine 06/22/20 01/16/24 Tad Mcintosh MD [address] [place] [address] PCP - General Family Medicine 01/17/24 Srikanth Adrian MD #2 [facility] [address] [place] [address] Outboard System Operator Cardiovascular Disease - Cardiology 02/02/22 08/06/24 Gloria Martinez MD #2 [facility] [address] [place] [address] Consulting Physician Urology 04/30/24 documented as of this encounter
--- OUTSIDE RECORDS SUMMARY | 2025-01-14 18:27 | XMS_ITS | Encounter Summary ---
Author Organization [facility] Address [address] [facility] [place] [address] Phone Care Team Providers Care Tenant Relations Coordinator Name Role Phone Jabier Peck MD Primary Care Provider [phone] Srikanth Adrian MD Unavailable Tad Romero MD Primary Care Provider +-[phone] Gloria Martinez MD Unavailable [phone] Reason for Visit * Reason Onset Date Comments Advice Only 12/18/2022 Encounter Details Date Type Department Care Team (Late st Contact Info) Description 12/18/2022 Telephone [facility] [address] [place] [address] Jabier Peck MD #[address] [address] Advice Only Social History Tobacco Use Types [...] CDT Gender Identity Male 05/03/2023 12:44 PM FOUR SLIDE MACHINE SETTER Sexual Orientation Lesbian or Wolff 05/03/2023 12 :44 PM FOUR SLIDE MACHINE SETTER documented as of this encounter Miscellaneous Notes [...] documented as of this encounter Care Teams Tenant Relations Coordinator Relationship Specialty Start Date End Date Jabier Peck MD #2 [facility] [address] [address] PCP - General Family Medicine 06/22/20 01/16/24 Tad Mcintosh MD [address] [place] [address] PCP - General Family Medicine 01/17/24 Srikanth Adrian MD #2 [facility] [address] [place] [address] Poultry Grader Cardiovascular Disease - Cardiology 02/02/22 08/06/24 Gloria Martinez MD #2 [facility] [address] [place] [address] Consulting Physician Urology 04/30/24 documented as of this encounter
--- OUTSIDE RECORDS SUMMARY | 2025-01-14 18:27 | XMS_ITS | Encounter Summary ---
Author Organization [facility] Address [address] [place] [address] Phone Care Team Providers Care Edm Operator Name Role Phone Jabier Peck MD Primary Care Provider + -[phone] Srikanth Adrian MD Unavailable Tad Romero MD Primary Care Provider +-[phone] Gloria Martinez MD Unavailable [phone] Reason for Visit * Reason Onset Date Comments Medication Refill Requesting new referral to [facility] 11/10/2022 Encounter Details Date Type Department Care Team (Late st Contact Info) Description 11/10/2022 Refill [facility] #2 [place] [address] Jabier Peck MD #[address] [address] Medication Refill; Requesting new referral to [facility] Social History Tobacco Use Types Packs/Day Years [...] CDT Gender Identity Male 05/03/2023 12:44 PM HOME COMFORT ADVISOR Sexual Orientation Lesbian or Wolff 05/03/2023 12 :44 PM HOME COMFORT ADVISOR documented as of this encounter Miscellaneous Notes * Telephone Encounter - Nikky Irby - 11/10/2022 1:42 PM CDT C: Tae Kent is requesting a new referral to [facility]. . Please call Tae (relationship to patient [...] [facility] [place] 05/03/22 Telemedicine Jabier Peck MD [facility] 03/03/22 Office Visit Jabier Peck MD [facility] 02/24/22 Office Visit Kishore Prieto APRN, RICHARD [facility] 01/31/22 Office Visit Kishore Prieto APRN, RICHARD [place] 12/13/21 Telemedicine Kishore Prieto APRN, [facility] [place] Showing recent visits within past 365 [...] RICHARD [place] 12/13/21 Telemedicine Kishore Prieto APRN, MOTOR AND GENERATOR BRUSH CUTTER [facility] Showing recent visits within past 365 [...] documented as of this encounter Care Teams Edm Operator Relationship Specialty Start Date End Date Jabier Peck MD #2 [facility] [address] [place] [address] PCP - General Family Medicine 06/22/20 01/16/24 Tad Mcintosh MD [address] [place] [address] PCP - General Family Medicine 01/17/24 Srikanth Adrian MD #2 [facility] [address] [place] [address] Electrical Appliance Mechanic Cardiovascular Disease - Cardiology 02/02/22 08/06/24 Gloria Martinez MD #2 [facility] [address] [place] [address] Consulting Physician Urology 04/30/24 documented as of this encounter
--- OUTSIDE RECORDS SUMMARY | 2025-01-14 18:27 | XMS_ITS | Encounter Summary ---
Author Organization [facility] Address [address] [facility] [place] [address] Phone Care Team Providers Care Rig Builder Name Role Phone Jabier Peck MD Primary Care Provider + [phone] Srikanth Adrian MD Unavailable Tad Romero MD Primary Care Provider [phone] Gloria Martinez MD Unavailable [phone] Reason for Visit * Reason Comments Medication Refill Encounter Details Date Type Department Care Team (Late st Contact Info) Description 08/01/2023 Refill [facility] #2 [place] [address] Jabier Peck MD #[address] [address] Medication Refill Social History Tobacco Use Types [...] Gender Identity Male 05/03/2023 12:44 PM RAIL 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 Showing future appointments within next 90 days and meeting all other requirements Passed - Active short-acting beta agonist prescription SETTER documented in this encounter Plan of Treatment Not on file documented as of this encounter Visit Diagnoses Not on filedocumented in this encounter Care Teams Rig Builder Relationship Specialty Start Date End Date Jabier Peck MD #2 [facility] [address] [place] [address] PCP - General Family Medicine 06/22/20 01/16/24 Tad Mcintosh MD [address] [place] [address] PCP - General Family Medicine 01/17/24 Srikanth Adrian MD #2 [facility] [address] [place] [address] Sales Support Associate Cardiovascular Disease - Cardiology 02/02/22 08/06/24 Gloria Martinez MD #2 [facility] [address] [place] [address] Consulting Physician Urology 04/30/24 documented as of this encounter
--- OUTSIDE RECORDS SUMMARY | 2025-01-14 18:27 | XMS_ITS | Encounter Summary ---
Author Organization [facility] Address [address] [facility] [place] [address] Phone Care Team Providers Care Locker Room Attendant Name Role Phone Jabier Peck MD Primary Care Provider + [phone] Srikanth Adrian MD Unavailable Tad Romero MD Primary Care Provider [phone] Gloria Martinez MD Unavailable [phone] Reason for Visit * Reason Comments Medication Refill Encounter Details Date Type Department Care Team (Late st Contact Info) Description 12/07/2023 Refill [facility] #2 [place] [address] Jabier Peck MD #[address] [address] Medication Refill Social History Tobacco Use Types [...] CDT Gender Identity Male 05/03/2023 12:44 PM FILAMENT SHAPER Sexual Orientation Lesbian or Wolff 05/03/2023 12 :44 PM FILAMENT SHAPER documented as of this encounter Miscellaneous Notes * Telephone Encounter - Sheyla Burgess RN - 12/07/2023 3:21 PM CDT Per nursing clinical judgement, provider to review and approve the medication(s) order(s) if appropriate. Requested Prescriptions Pending Prescriptions Disp Refills albuterol 108 (90 Base) MCG/ACT Aerosol Solution [Pharmacy Med Name: ALBUTEROL HFA 90 MCG INHALER (MA] 8.5 g Sig: TRANSFERRED: 06/15/23 -READ RX [...] [facility] 12/18/22 Telemedicine Jabier Peck MD [facility] Showing recent visits within past 365 days and meeting all other requirements Future Appointments No visits were found meeting these conditions. Showing future appointments within next 90 days and meeting all other requirements documented in this encounter Plan of Treatment Not on file documented as of this encounter Visit Diagnoses Not on filedocumented in this encounter Care Teams Locker Room Attendant Relationship Specialty Start Date End Date Jabier Peck MD #[address] [address] PCP - General Family Medicine 06/22/20 01/16/24 Tad Mcintosh MD [address] [place] [address] PCP - General Family Medicine 01/17/24 Srikanth Adrian MD #2 [facility] [address] [place] [address] Industrial Sales Representative Cardiovascular Disease - Cardiology 02/02/22 08/06/24 Gloria Martinez MD #2 [facility] [address] [place] [address] Consulting Physician Urology 04/30/24 documented as of this encounter
--- OUTSIDE RECORDS SUMMARY | 2025-01-14 18:27 | XMS_ITS | Encounter Summary ---
Author Organization [facility] Address [address] [facility] [place] [address] Phone Care Team Providers Care Oracle Application Consultant Name Role Phone Srikanth Adrian MD Unavailable Tad Romero MD Primary Care Provider Gloria Martinez MD Unavailable [phone] Reason for Visit * Reason Comments Medication Refill Encounter Details Date Type Department Care Team (Late st Contact Info) Description 07/26/2024 Refill [facility] - Family Medicine [facility] #2 [place] [phone] Jabier Peck MD #[address] [address] Medication Refill Social History Tobacco Use Types [...] CDT Gender Identity Male 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 Last seen April 2023. RCYCLE MAKER documented in this encounter Plan of Treatment Not on file documented as of this encounter Visit Diagnoses Not on filedocumented in this encounter Care Teams Oracle Application Consultant Relationship Specialty Start Date End Date Tad Mcintosh MD [address] [place] [address] PCP - General Family Medicine 01/17/24 Srikanth Adrian MD Odd Ticket Clerk Cardiovascular Disease - Cardiology 02/02/22 08/06/24 Gloria Martinez MD #[address] [address] Consulting Physician Urology 04/30/24 documented as of this encounter
--- OUTSIDE RECORDS SUMMARY | 2025-01-14 18:27 | XMS_ITS | Encounter Summary ---
Author Organization [facility] Address [address] [facility] [place] [address] Phone Care Team Providers Care Barytes Grinder Name Role Phone Srikanth Adrian MD Unavailable Tad Romero MD Primary Care Provider [phone] Gloria Martinez MD Unavailable [phone] Reason for Visit * Reason Comments Medication Refill Encounter Details Date Type Department Care Team (Late st Contact Info) Description 05/28/2024 Refill [facility] - Family Medicine [facility] #2 [place] [phone] Jabier Peck MD #[address] [address] Medication Refill Social History Tobacco Use Types [...] CDT Gender Identity Male 05/03/2023 12:44 PM VENEER JOINTER RETURNER Sexual Orientation Lesbian or Wolff 05/03/2023 12 :44 PM VENEER JOINTER RETURNER documented as of this encounter Miscellaneous Notes * Telephone Encounter - Francine Soto RN - 05/28/2024 11:10 AM CST PCP: Tad Mcintosh MD ER JOINTER RETURNER documented in this encounter Plan of Treatment Not on file documented as of this encounter Visit Diagnoses Not on filedocumented in this encounter Care Teams Barytes Grinder Relationship Specialty Start Date End Date Tad Mcintosh MD [address] [place] [address] PCP - General Family Medicine 01/17/24 Srikanth Adrian MD Vamp Cut Out Worker Cardiovascular Disease - Cardiology 02/02/22 08/06/24 Gloria Martinez MD #[address] [address] Consulting Physician Urology 04/30/24 documented as of this encounter
--- OUTSIDE RECORDS SUMMARY | 2025-01-14 18:27 | XMS_ITS | Encounter Summary ---
Author Organization [facility] Address [address] [facility] [place] [address] Phone Care Team Providers Care Rubber Worker Name Role Phone Jabier Peck MD Primary Care Provider + [phone] Srikanth Adrian MD Unavailable Tad Romero MD Primary Care Provider [phone] Gloria Martinez MD Unavailable [phone] Reason for Visit * Reason Comments Medication Refill Encounter Details Date Type Department Care Team (Late st Contact Info) Description 05/11/2021 Refill [facility] #2 [place] [address] Jabier Peck MD #[address] [address] Medication Refill Social History Tobacco Use Types [...] CDT Gender Identity Male 05/03/2023 12:44 PM SEAM CLOSER Sexual Orientation Lesbian or Wolff 05/03/2023 12 :44 PM SEAM CLOSER COVID-19 Exposure Response Date Recorded In the last month, have you been in contact with someone who was confirmed or suspected to have Coronavirus / COVID-19? No / Unsure 05/05/2021 12:33 PM SEAM CLOSER documented as of this encounter Miscellaneous Notes [...] 03/16/21 Office Visit Kishore Prieto APRN, RICHARD [facility] 11/16/20 Office Visit Kishore Prieto APRN, RICHARD [facility] 10/20/20 Office Visit Jabier Peck MD [facility] 08/20/20 Telemedicine Kishore Prieto APRN, RICHARD [facility] 08/06/20 Telemedicine Kishore Prieto APRN, MECHANICAL SPECIALIST [facility] 06/22/20 Office Visit Kishore Prieto APRN, MECHANICAL SPECIALIST [facility] Showing recent visits within past 365 days and meeting all other requirements Future Appointments Date Type Provider Dept 08/01/21 Appointment Jabier Peck MD [facility] Showing future appointments within next 90 days and meeting all other requirements CLOSER documented in this encounter Plan of Treatment Not on file documented as of this encounter Visit Diagnoses Diagnosis Cervical radiculopathy Brachial neuritis or radiculitis nos documented in this encounter Additional Health Concerns Infection Onset Date Last Indicated Resolved Time COVID - 19 Confirmed 05/31/2022 05/31/2022 023 12:16 AM SEAM CLOSER Respiratory Rule Out - RPA 02/26/2023 02/26/2023 0 02/26/2023 11:31 AM CDT COVID - 19 02/26/2023 02/26/2023 03/08/2023 12:1 6 AM CDT documented as of this encounter Care Teams Rubber Worker Relationship Specialty Start Date End Date Jabier Peck MD #2 [facility] [address] [place] [address] PCP - General Family Medicine 06/22/20 01/16/24 Tad Mcintosh MD [address] [place] [address] PCP - General Family Medicine 01/17/24 Srikanth Adrian MD #2 [facility] [address] [place] [address] Oracle Etl Developer Cardiovascular Disease - Cardiology 02/02/22 08/06/24 Gloria Martinez MD #2 [facility] [address] [place] [address] Consulting Physician Urology 04/30/24 documented as of this encounter
--- OUTSIDE RECORDS SUMMARY | 2025-01-14 18:27 | XMS_ITS | Encounter Summary ---
Author Organization [facility] Address [address] [facility] [place] [address] Phone Care Team Providers Care Hide Measuring Machine Operator Name Role Phone Jabier Peck MD Primary Care Provider + [phone] Srikanth Adrian MD Unavailable Tad Romero MD Primary Care Provider [phone] Gloria Martinez MD Unavailable [phone] Reason for Visit * Reason Comments Medication Refill Encounter Details Date Type Department Care Team (Late st Contact Info) Description 07/20/2021 Refill [facility] #2 [place] [address] Jabier Peck MD #[address] [address] Medication Refill Social History Tobacco Use Types [...] Gender Identity Male 05/03/2023 12:44 PM MEDICAL TECHNICIAN Sexual Orientation Lesbian or Wolff 05/03/2023 12 :44 PM MEDICAL TECHNICIAN COVID-19 Exposure Response Date Recorded In the last month, have you been in contact with someone who was confirmed or suspected to have Coronavirus / COVID-19? No / Unsure 07/14/2021 12:17 PM MEDICAL TECHNICIAN documented as of this encounter Miscellaneous [...] Peck MD [facility] 08/20/20 Telemedicine Kishore Prieot APRN, RICHARD [facility] 08/06/20 Telemedicine Kishore Prieto APRN, STORE STOCKER [facility] Showing recent visits within past 365 days and meeting all other requirements Future Appointments Date Type Provider Dept 08/01/21 Appointment Jabier Peck MD [facility] Showing future appointments within next 90 days and meeting all other requirements CAL TECHNICIAN documented in this encounter Plan of Treatment Not on file documented as of this encounter Visit Diagnoses Diagnosis Cervical radiculopathy Brachial neuritis or radiculitis nos documented in this encounter Additional Health Concerns Infection Onset Date Last Indicated Resolved Time COVID - 19 Confirmed 05/31/2022 05/31/2022 023 12:16 AM MEDICAL TECHNICIAN Respiratory Rule Out - RPA 02/26/2023 02/26/2023 0 02/26/2023 11:31 AM CDT COVID - 19 02/26/2023 02/26/2023 03/08/2023 12:1 6 AM CDT documented as of this encounter Care Teams Hide Measuring Machine Operator Relationship Specialty Start Date End Date Jabier Peck MD #2 [facility] [address] [place] [address] PCP - General Family Medicine 06/22/20 01/16/24 Tad Mcintosh MD [address] [place] [address] PCP - General Family Medicine 01/17/24 Srikanth Adrian MD #2 [facility] [address] [place] [address] Shot Man Cardiovascular Disease - Cardiology 02/02/22 08/06/24 Gloria Martinez MD #2 [facility] [address] [place] [address] Consulting Physician Urology 04/30/24 documented as of this encounter
--- OUTSIDE RECORDS SUMMARY | 2025-01-14 18:27 | XMS_ITS | Encounter Summary ---
Author Organization [facility] Address [address] [facility] [place] [address] Phone Care Team Providers Care It Network Engineer Name Role Phone Jabier Peck MD Primary Care Provider + [phone] Srikanth Adrian MD Unavailable Tad Romero MD Primary Care Provider [phone] Gloria Martinez MD Unavailable [phone] Reason for Visit * Reason Comments Medication Refill Encounter Details Date Type Department Care Team (Late st Contact Info) Description 06/12/2022 Refill [facility] #2 [place] [address] Jabier Peck MD #[address] [address] Medication Refill Social History Tobacco Use Types [...] Gender Identity Male 05/03/2023 12:44 PM LEAD TELLER Sexual Orientation Lesbian or Wolff 05/03/2023 12 :44 PM LEAD TELLER COVID-19 Exposure Response Date Recorded In the last 10 days, have yo u been in contact with someone who was confirmed or suspected to have Coronavirus/COVID-19? Yes 05/31/2022 2:12 PM LEAD TELLER documented as of this encounter Miscellaneous Notes * Telephone Encounter - Anjali Hartley RN - 06/13/2022 11:16 AM LEAD TELLER Medication warning. Per nursing clinical judgement, provider [...] 90 days and meeting all other requirements TELLER documented in this encounter Plan of Treatment Not on file documented as of this encounter Visit Diagnoses Not on filedocumented in this encounter Additional Health Concerns Infection Onset Date Last Indicated Resolved Time COVID - 19 Confirmed 05/31/2022 05/31/2022 023 12:16 AM LEAD TELLER Respiratory Rule Out - RPA 02/26/2023 02/26/2023 0 02/26/2023 11:31 AM CDT COVID - 19 02/26/2023 02/26/2023 03/08/2023 12:1 6 AM CDT documented as of this encounter Care Teams It Network Engineer Relationship Specialty Start Date End Date Jabier Peck MD #2 [facility] [address] [place] [address] PCP - General Family Medicine 06/22/20 01/16/24 Tad Mcintosh MD [address] [place] [address] PCP - General Family Medicine 01/17/24 Srikanth Adrian MD #2 [facility] [address] [place] [address] Manager Marketing Cardiovascular Disease - Cardiology 02/02/22 08/06/24 Gloria Martinez MD #2 [facility] [address] [place] [address] Consulting Physician Urology 04/30/24 documented as of this encounter
--- OUTSIDE RECORDS SUMMARY | 2025-01-14 18:27 | XMS_ITS | Encounter Summary ---
Author Organization [facility] Address [address] [facility] [place] [address] Phone Care Team Providers Care Hydrotreater Operator Name Role Phone Jabier Peck MD Primary Care Provider + [phone] Srikanth Adrian MD Unavailable Tad Rmoero MD Primary Care Provider [phone] Gloria Martinez MD Unavailable [phone] Reason for Visit * Reason Comments Medication Refill Encounter Details Date Type Department Care Team (Late st Contact Info) Description 08/30/2022 Refill [facility] #2 [place] [address] Jabier Peck MD #[address] [address] Medication Refill Social History Tobacco Use Types [...] CDT Gender Identity Male 05/03/2023 12:44 PM PAD MACHINE OPERATOR Sexual Orientation Lesbian or Wolff 05/03/2023 12 :44 PM PAD MACHINE OPERATOR COVID-19 Exposure Response Date Recorded In the last 10 days, have yo u been in contact with someone who was confirmed or suspected to have Coronavirus/COVID-19? No / Unsure 08/21/2022 12:53 PM PAD MACHINE OPERATOR documented as of this encounter [...] Visit Kishore Prieto APRN, RICHARD [facility] 12/13/21 Telemedicine Kishore Prieto APRN, RICHARD [facility] Showing recent visits within past 365 days [...] documented as of this encounter Care Teams Hydrotreater Operator Relationship Specialty Start Date End Date Jabier Peck MD #2 [facility] [address] [place] [address] PCP - General Family Medicine 06/22/20 01/16/24 Tad Mcintosh MD [address] [place] [address] PCP - General Family Medicine 01/17/24 Srikanth Adrian MD #2 [facility] [address] [place] [address] Frame Table Operator Helper Cardiovascular Disease - Cardiology 02/02/22 08/06/24 Gloria Martinez MD #2 [facility] [address] [place] [address] Consulting Physician Urology 04/30/24 documented as of this encounter
--- OUTSIDE RECORDS SUMMARY | 2025-01-14 18:27 | XMS_ITS ---
Author Name ABBY BUTLER Address [address] [place] [address] Phone [facility] Address [address] [place] [address] Phone Care Team Providers Care Floor Surfacer Name Role Phone ABBY BUTLER Unavailable [phone] ALLERGIES, ADVERSE REACTIONS AND ALERTS Allergy Name Allergy Date Allergy Status Allergy Severity Allergy Reaction NO KNOWN DRUG ALLERGIES PROBLEMS Problem Code Problem Description Problem Status Problem Da te Problem End Date 088683104-[id number] tract congestion and cough Respiratory tract congestion and cough Current 04/28/2022 [id number]-Qatffze disorder Bipolar disorder Chronic 04/28/2022 [id number]-Zmhmbqrkp emphysema Pulmonary emphysema Chronic 04/28/2022 [id number]-Ibbkku disease Kidney disease Chronic 04/28/2022 38539280-Ursodoel mellitus Diabetes mellitus Chronic 04/28/2022 [id number]-Eagkix Asthma Chronic 04/28/2022 [id number]-Jwxqxhgjmdc sleep apnea syndrome Obstructive sleep apnea syndrome [...] ever smoked Sex: Male CARE TEAM INFORMATION Floor Surfacer Provider ID Role Location Phone ABBY BUTLER [id number] NURSE PRACTITIONER [address] [place] [address] INSURANCE PROVIDERS Payer Name Policy type / Coverage type Covered green party ID Policy [place] Medicaid [id number] SEL[facility] MEDICARE ADVANTAGE Private Health Insurance [id number] SELF
--- OUTSIDE RECORDS SUMMARY | 2025-01-14 18:27 | XMS_ITS | Encounter Summary ---
Author Organization [facility] Address [address] [facility] [place] [address] Phone Care Team Providers Care Inspector Machined Parts Name Role Phone Jabier Peck MD Primary Care Provider + [phone] Srikanth Adrian MD Unavailable Tad Romero MD Primary Care Provider [phone] Gloria Martinez MD Unavailable [phone] Reason for Visit * Reason Comments Medication Refill Encounter Details Date Type Department Care Team (Late st Contact Info) Description 04/13/2023 Refill [facility] #2 [place] [address] Jabier Peck MD #[address] [address] Medication Refill Social History Tobacco Use Types [...] CDT Gender Identity Male 05/03/2023 12:44 PM MEASUREMENT ADVISOR Sexual Orientation Lesbian or Wolff 05/03/2023 12 :44 PM MEASUREMENT ADVISOR documented as of this encounter Miscellaneous [...] Dept 02/26/23 Office Visit Kishore Prieto APRN, FELLER MACHINE OPERATOR [facility] 12/18/22 Telemedicine Jabier Peck MD [facility] 11/30/22 Telemedicine Kishore Prieto APRN, FELLER MACHINE OPERATOR [facility] 08/21/22 Office Visit Jabier Peck MD [facility] [...] nos documented in this encounter Care Teams Inspector Machined Parts Relationship Specialty Start Date End Date Jabier Peck MD #2 [facility] [address] [place] [address] PCP - General Family Medicine 06/22/20 01/16/24 Tad Mcintosh MD [address] [place] [address] PCP - General Family Medicine 01/17/24 Srikanth Adrian MD #2 [facility] [address] [place] [address] Marine Operations Coordinator Cardiovascular Disease - Cardiology 02/02/22 08/06/24 Gloria Martinez MD #2 [facility] [address] [place] [address] Consulting Physician Urology 04/30/24 documented as of this encounter
--- OUTSIDE RECORDS SUMMARY | 2025-01-14 18:27 | XMS_ITS | Encounter Summary ---
Author Organization [facility] Address [address] [facility] [place] [address] Phone Care Team Providers Care Head Of Acquisitions Name Role Phone Srikatnh Adrian MD Unavailable Tad Romero MD Primary Care Provider [phone] Gloria Martinez MD Unavailable [phone] Reason for Visit * Reason Comments Medication Refill Encounter Details Date Type Department Care Team (Late st Contact Info) Description 03/29/2024 Refill [facility] Medical Group - Family Medicine [facility] #2 [place] [phone] Kishore Prieto, JOYA, COFFEE BREAK ATTENDANT #[address] [address] Medication Refill Social History Tobacco Use Types [...] CDT Gender Identity Male 05/03/2023 12:44 PM TRANS ROUTER Sexual Orientation Lesbian or Wolff 05/03/2023 12 :44 PM TRANS ROUTER documented as of this encounter Miscellaneous Notes * Telephone Encounter - Cristine Preston RN - 03/30/2024 1:22 PM CDT PCP: Tad Mcintosh MD documented in this encounter Plan of Treatment Not on file documented as of this encounter Visit Diagnoses Not on filedocumented in this encounter Care Teams Head Of Acquisitions Relationship Specialty Start Date End Date Tad Mcintosh MD [address] [place] [address] PCP - General Family Medicine 01/17/24 Srikanth Adrian MD Clinical Scientist Cardiovascular Disease - Cardiology 02/02/22 08/06/24 Gloria Martinez MD #[address] [address] Consulting Physician Urology 04/30/24 documented as of this encounter
--- OUTSIDE RECORDS SUMMARY | 2025-01-14 18:27 | XMS_ITS | Encounter Summary ---
Author Organization [facility] Address [address] [place] [address] Phone Care Team Providers Care Take Away Man Name Role Phone Tad Becker MD Primary Care Provider [phone] Gloria Maritnez MD Unavailable [phone] Reason for Referral * Consult, Test & Initiate Treatment (Routine) - Closed Specialty Diagnoses / Procedures Referred By Pavan chun Referred To Contact Diagnoses Type 2 diabetes mellitus treated without insulin (HCC) Collette Francois MD [address] [place] [address] Phone: tel: fax: [facility] - Endocrinology & Diabetes - [place] [address] [place] [id number] Phone: tel: fax: Referral ID Status Reason Start Date Expiration Date Visits Re quested Visits Authorized [id number] Closed 01/12/2025 1 1 Scheduling Instructions Tae is being referred for management of Type 2 Diabetes Mellitus with Hyperglycemia, A1c 12.4%. Please contact patient for scheduling questions or concerns. Reason for Visit * Auth/Cert (Routine) Specialty Diagnoses / Procedures Referred By Pavan chun Referred To Contact Diagnoses Stroke (HCC) cva Collette Francois MD [address] [place] [address] Phone: tel: fax: Referral ID Status Reason Start Date Expiration Date Visits Re quested Visits Authorized [id number] 1 1 Encounter Details Date Type Department Care Team (Latest Contact Info) Description 01/10/2025 7:15 PM CDT - 01/12/2025 7:22 PM CDT Hospital Encounter [facility] Med Surg [address] [place] [id number] Collette Francois MD [address] [place], [place] [id number] Left sided numbness Discharge Disposition: Discharged to home or Selfcare Social History Tobacco Use Types Packs/Day Years Used Date Smoking Tobacco: Former Cigarettes 1 35 Smokeless Tobacco: Never Alcohol Use Standard Drinks/Week Comments No 0 (1 standard drink = 0.6 oz pur e alcohol) Hunger Vital Sign Answer Date Recorded Within the past 12 months, y ou worried that your food would run out before you got the money to buy more. Patient declined Within the past 12 months, t he food you bought just didn't last and you didn't have money to get more. Patient declined PRAPARE - Transportation Answer Date Re corded In the past 12 months, has l ack of transportation kept you from medical appointments or from getting medications? Patient declined 01/10/2025 In the past 12 months, has l ack of transportation kept you from meetings, work, or from getting things needed for daily living? Patient declined 01/10/2025 Housing Stability Vital Sign Answer Yuri e Recorded In the last 12 months, was t here a time when you were not able to pay the mortgage or rent on time? Patient declined 01/11/20 25 In the past 12 months, how m any times have you moved where you were living? 0 01/10/2025 At any time in the past 12 m [facility], were you homeless or living in a fci (including now)? Patient declined 01/10/2025 [facility] Utilities Answer Date Recorded In the past 12 months has th [employer] electric, gas, oil, or water company threatened to shut off services in your home? Patient declined 01/10/2025 Education Answer Date Recorded What is the highest level of school you have completed or the highest degree you have received? Bachelor's degree (e.g., BA, AB, BS) 02/26/2023 Sexually Active Control Partners Comments Not Currently Male Condom Male Sex and Gender Information Value Date Recorded Sex Assigned at Not on file Legal Sex Male 11:38 PM CDT Gender Identity Male 05/03/2023 12:44 PM [employer] Sexual Orientation Lesbian or Wolff 05/03/2023 12 :44 PM [employer] documented as of this encounter Last Filed Vital Signs Vital Sign Reading Time Taken Comments Blood Pressure 122/90 01/12/2025 4:00 PM CDT Pulse 80 01/12/2025 4:00 PM CDT Temperature 36.3 C (97.4 F) 01/12/2025 4:00 PM CDT Respiratory Rate 16 01/12/2025 4:00 PM CDT Oxygen Saturation 93% 01/12/2025 4:00 PM CDT Inhaled Oxygen Concentration - - Weight 107.2 kg (236 lb 5 oz) 01/10/2025 7:40 PM CDT Height 175.3 cm (5' 9) 01/10/2025 7:40 PM CDT Body Mass Index 34.9 01/10/2025 7:40 PM CDT documented in this encounter Functional Status * Question Answer Date of Assessment Author Little interest or pleasure in doing things Not at all 01/11/2025 12:18 AM DEEPT Bola Webber RN Feeling down, depressed, or hopeless Not at all 01/11/2025 12:18 AM DEEPT Bola Webber RN * Over the past 2 weeks, how often have you been bothered by any of the following problems? Question Answer Date of Assessment Author Patient Health Questionnaire -2 Score 0 01/11/2025 12:18 AM DEEPT Bola Webber RN documented as of this encounter Medications at Time of Discharge albuterol 108 (90 Base) MCG/ACT Aerosol Solution TRANSFERRED: 06/15/23 -READ RX NOTE (ALT-N)- 1 OR 2 PUFFS BY MOUTH EVERY SIX HOURS NEEDED WHEEZING 8.5 g 1 4 ALBUTEROL SULFATE IN take by inhalation every 4 hours as needed. apixaban (Eliquis) 5 MG TabletIndications:H istory of Thromboembolic Disease Take 1 Tablet by mouth 2 times daily. Indications: History of Disease involving a Thrombosis or an Embolism 180 Tablet 3 3 Aripiprazole 20 MG Tablet Take 25 mg by mouth nightly. aspirin 81 MG Chewable Tablet Take 81 mg by mouth daily. atorvastatin (LIPITOR) 80 MG Tablet Take 1 Tablet by mouth daily. 90 Tablet 1 3 Blood Glucose Monitoring Suppl ([employer] Glucometer) w/Device Kit Use to monitor glucose fasting and prior to each meal 1 Kit 5 buPROPion (WELLBUTRIN) 300 MG TABLET SR 24 HR XL tablet Take 1 Tab by mouth daily. 7 cetirizine (ZyrTEC) 10 MG Tablet Take 10 mg by mouth daily. fluticasone (FLONASE) 50 MCG/ACT Suspension SPRAY 1-2 SPRAYS INTO EACH NOSTRIL ONCE DAILY DIRECTED 48 g 1 3 fluticasone-salmete rol (ADVAIR) 500-50 MCG/ACT AEROSOL POWDER, BREATH ACTIVATED INHALE 1 PUFF BY MOUTH IN THE MORNING AND AT BEDTIME 60 Each 5 4 Fosinopril Sodium 40 MG Tablet Take 1 Tablet by mouth daily. 90 Tablet 3 3 gabapentin (NEURONTIN) 600 MG TabletIndications:C ervical radiculopathy,Lumba r radiculopathy TAKE ONE TABLET BY MOUTH THREE TIMES A DAY 270 Tablet 3 HumaLOG KwikPen 100 UNIT/ML Solution Pen-injector For blood glucose 150-200: Give 2 units; For 201-250: Give 4 units; For 251-300: Give 6 units; For 301-350: Give 8 units; For glucose of 351-400: Give 10 units. For glucose > 400: Give 12 units and contact physician 3 mL 5 insulin glargine (LANTUS, BASAGLAR) 100 UNIT/ML Solution Pen-injector 24 Units by Subcutaneous route nightly for 63 days. 15 mL 5 03/16/20 25 Insulin Pen Needle (Pen [place]) 29G X 12MM Misc As instructed 100 Each 2 5 Linzess 290 MCG Capsule Take 290 mcg by mouth daily. 5 methocarbamol (ROBAXIN) 750 MG TabletIndications:C ervical radiculopathy TAKE ONE TABLET BY MOUTH EVERY DAY NEEDED 45 Tablet 3 metoprolol Succinate (TOPROL-XL) 25 MG TABLET SR 24 HR TAKE 1 TABLET BY MOUTH EVERY DAY 90 Tablet 2 2 montelukast (SINGULAIR) 10 MG Tablet TAKE 1 TABLET BY MOUTH EVERY EVENING. INDICATIONS: ASTHMA 90 Tablet 3 3 NEEDLE, DISP, 18 G 18G X 1-1/2 MiscIndications:Hyp ogonadism in male Use to draw up testosterone 6 Each 3 1 omeprazole (PriLOSEC) 20 MG CAPSULE DELAYED RELEASE TAKE 1 CAPSULE BY MOUTH TWICE A DAY 180 Capsule 1 3 OXcarbazepine (TRILEPTAL) 300 MG Tablet Take 600 mg by mouth 2 times daily. oxyCODONE-acetamino phen (PERCOCET) 5-325 MG Tablet Take 1 Tablet by mouth 3 times daily as needed for Moderate or more severe pain. 5 Respiratory Therapy Supplies (Nebulizer) Device Use as directed 1 Each 1 rOPINIRole (REQUIP) 1 MG Tablet Take 1 Tablet by mouth daily. 90 Tablet 3 3 Syringe/Needle, Disp, 22G X 1-1/2 1.5 ML MiscIndications:Hyp ogonadism in male Use for testosterone injection 6 Each 3 1 torsemide (DEMADEX) 20 MG Tablet Take 20 mg by mouth daily as needed for Other (Pt states when needed). TRAZODONE HCL PO Take 200 mg by mouth nightly. 7 venlafaxine (EFFEXOR-XR) 150 MG CAPSULE SR 24 HR daily. 0 documented as of this encounter Consult Notes * Jcarlos Sen MD - 01/12/2025 7:46 AM CDTAssociated Order(s): IP CONSULT TO NEUROLOGY NEUROLOGY CONSULT Date of Service: 01/12/2025 Assessment and Plan TIA - Will get an MRI brain and carotid ultrasound - PT OT and speech evaluation - Discussed controlling diabetes, blood pressure and cholesterol - Discussed smoking cessation - Continue aspirin and Eliquis 2. Hypertension - Permissive hypertension x 24 hours with as needed medications for SBP greater than 220 - Long-term goal of blood pressure treatment should be a blood pressure less than 130/80 3. Diabetes melitis type II - A1c is 12 - Patient currently is on a sliding scale of insulin - Recommend endocrinology follow-up 4. Nicotine dependence - Patient states he is ready to quit smoking - States he has no desire to smoke currently 5. CKD - BUN/CR/GFR is 01/07. - Avoid nephrotoxic drugs such as NSAIDs Reason for Consultation: left sided numbness HPI: Tae is a 54-year-old gentleman who presents for evaluation of left arm and leg numbness. Symptoms started around 4 5 in the morning on Sunday. Patient went to the hospital recently in [place] and was transferred to [facility] for further care. He notes that his symptoms have mostly improved other than some little residual left hand numbness. Patient has a history of a prior stroke in 2004 which resulted in left hemiparesis but he eventually regained full function. Patient has a history of hypertension which she states is controlled high cholesterol on statins, and type 2 diabetes. Patient was on Mounjaro for his diabetes but after episodes of hypoglycemia was treating it with dietary modifications. He states that his primary care doctor was monitoring his sugars and his last A1cwas about 8. However his A1c at this time is 12. His sugars were significantly elevated while he was in the hospital. Patient is a smoker but states as of this admission he believes he has quit. He states he has no desire to smoke at this time. Patient has been on Eliquis for a DVT/PE. He also has a history of bipolar COPD and CKD. In addition patient also notes intermittent episodes of tremors notably in his right hand often at rest and they are sometimes difficult to control. Core Measures: tPA administration: no Anti-thrombotic: ASA: yes Statin; Lipitor: yes DVT prophylaxis: yes Swallow Evaluation: yes PT/OT Evaluation: yes Smoking Cessation; Will family and marriage counsellor: yes Individual Modifiable Risk Factors: Hypertension: yes Hyperlipidemia: yes Diabetes: yes Atrial Fibrillation: no Tobacco: yes Past Medical History Positives Diagnosis Date Adenomatous colon polyp Anxiety Arthritis Bipolar 1 disorder, mixed, mild (HCC) CKD (chronic kidney disease) Clotting disorder (HCC) COPD (chronic obstructive pulmonary disease) ([facility]LY [facility]) CVA (cerebral vascular accident) ([facility]) 2004 Depression DM (diabetes mellitus) ([facility]) blood sugar has been WNL for 2 years DVT (deep venous thrombosis) ([facility]) R arm, August 2019 Empyema ([facility]) GERD (gastroesophageal reflux disease) History of pulmonary embolus (PE) 01/11/2025 HLD (hyperlipidemia) HTN (hypertension) Hx of [facility] use of blood thinners IBS (irritable bowel syndrome) Left sided numbness 01/11/2025 Low testosterone Lupus anticoagulant disorder ([facility]) Neuropathy Obesity MAK (obstructive sleep apnea) Pulmonary emboli Tobacco dependency Tongue lesion Past Surgical History[1] Family History Problem Relation Age of Onset Cancer Mother Colon Cancer Mother Bipolar Disorder Mother Chronic Obstructive Pulmonary Disease Father Cancer Paternal Grandfather Stroke Sister Heart Attack Sister Cancer Brother Rheumatoid Arthritis Sister No Known Problems Sister Cancer Sister Kidney Cancer Sister Clotting Disorder Sister Embolism Other-comment Sister PE No Known Problems Brother Colon Cancer Brother Rheumatoid Arthritis Brother Bipolar Disorder Maternal Grandmother Social History Tobacco Use Smoking status: Former Current packs/day: 1.00 Average packs/day: 1 pack/day for 35.0 years (35.0 ttl pk-yrs) Types: Cigarettes Smokeless tobacco: Never Substance Use Topics Alcohol use: No Allergies[2] Medications Prior to Admission Medication Sig Dispense Refill albuterol 108 (90 Base) MCG/ACT Aerosol Solution TRANSFERRED: 06/15/23 -READ RX NOTE (ALT-N)- 1 OR 2 PUFFS BY MOUTH EVERY SIX HOURS NEEDED WHEEZING 8.5 g 1 ALBUTEROL SULFATE IN take by inhalation every 4 hours as needed. apixaban (Eliquis) 5 MG Tablet Take 1 Tablet by mouth 2 times daily. Indications: History of Disease involving a Thrombosis or an Embolism 180 Tablet 3 Aripiprazole 20 MG Tablet Take 25 mg by mouth nightly. aspirin 81 MG Chewable Tablet Take 81 mg by mouth daily. (Patient not taking: Reported on 01/10/2025) atorvastatin (LIPITOR) 80 MG Tablet Take 1 Tablet by mouth daily. 90 Tablet 1 buPROPion (WELLBUTRIN) 300 MG TABLET SR 24 HR XL tablet Take 1 Tab by mouth daily. cetirizine (ZyrTEC) 10 MG Tablet Take 10 mg by mouth daily. diclofenac (VOLTAREN) 50 MG Tablet Delayed Response TAKE 1 TABLET BY MOUTH EVERY 8 HOURS NEEDED-30 DAY SUPPLY fluticasone (FLONASE) 50 MCG/ACT Suspension SPRAY 1-2 SPRAYS INTO EACH NOSTRIL ONCE DAILY DIRECTED 48 g 1 fluticasone-salmeterol (ADVAIR) 500-50 MCG/ACT AEROSOL POWDER, BREATH ACTIVATED INHALE 1 PUFF BY MOUTH IN THE MORNING AND AT BEDTIME 60 Each 5 Fosinopril Sodium 40 MG Tablet Take 1 Tablet by mouth daily. 90 Tablet 3 gabapentin (NEURONTIN) 600 MG Tablet TAKE ONE TABLET BY MOUTH THREE TIMES A DAY (Patient taking differently: Take 600 mg by mouth 3 times daily.) 270 Tablet 0 HYDROcodone-acetaminophen (NORCO) 10-325 MG Tablet Take 1 Tablet by mouth every 8 hours as needed for Moderate or more severe pain. (Patient not taking: Reported on 01/10/2025) 42 Tablet 0 Linzess 290 MCG Capsule Take 290 mcg by mouth daily. methocarbamol (ROBAXIN) 750 MG Tablet TAKE ONE TABLET BY MOUTH EVERY DAY NEEDED 45 Tablet 0 metoprolol Succinate (TOPROL-XL) 25 MG TABLET SR 24 HR TAKE 1 TABLET BY MOUTH EVERY DAY 90 Tablet 2 montelukast (SINGULAIR) 10 MG Tablet TAKE 1 TABLET BY MOUTH EVERY EVENING. INDICATIONS: ASTHMA 90 Tablet 3 naloxone HCl (Narcan) 4 MG/0.1ML Liquid Use one nasal spray every 2-3 minutes until awake from drugoverdose. Call 911. (Patient not taking: Reported on 01/10/2025) 2 Each 0 NEEDLE, DISP, 18 G 18G X 1-1/2 Misc Use to draw up testosterone 6 Each 3 omeprazole (PriLOSEC) 20 MG CAPSULE DELAYED RELEASE TAKE 1 CAPSULE BY MOUTH TWICE A DAY (Patient taking differently: Take 20 mg by mouth 2 times daily.) 180 Capsule 1 OXcarbazepine (TRILEPTAL) 300 MG Tablet Take 600 mg by mouth 2 times daily. oxyCODONE-acetaminophen (PERCOCET) 5-325 MG Tablet Take 1 Tablet by mouth 3 times daily as needed for Moderate or more severe pain. pseudoephedrine (SUDAFED) 120 MG TABLET SR 12 HR Take 120 mg by mouth 2 times daily as needed. Respiratory Therapy Supplies (Nebulizer) Device Use as directed 1 Each 0 rOPINIRole (REQUIP) 1 MG Tablet Take 1 Tablet by mouth daily. 90 Tablet 3 Syringe/Needle, Disp, 22G X 1-1/2 1.5 ML Misc Use for testosterone injection 6 Each 3 tadalafil (CIALIS) 20 MG Tablet Take 1 Tablet by mouth as needed for Erectile Dysfunction. (Patientnot taking: Reported on 01/10/2025) 30 Tablet 1 torsemide (DEMADEX) 20 MG Tablet Take 20 mg by mouth daily as needed for Other (Pt states when needed). TRAZODONE HCL PO Take 200 mg by mouth nightly. venlafaxine (EFFEXOR-XR) 150 MG CAPSULE SR 24 HR daily. Medications melatonin tablet 6 mg (has no administration in time range) calcium carbonate (TUMS) chewable tablet 1,000 mg (has no administration in time range) ondansetron (ZOFRAN-ODT) disintegrating tablet 4 mg (has no administration in time range) Or ondansetron (ZOFRAN) injection 4 mg (has no administration in time range) polyethylene glycol (GLYCOLAX, MIRALAX) packet 17 g (has no administration in time range) senna (SENOKOT) 8.6 mg (has no administration in time range) nicotine (NICODERM CQ) 21 MG/24HR patch 1 Patch (has no administration in time range) labetalol (NORMODYNE;TRANDATE) injection 10 mg (has no administration in time range) hydrALAZINE (APRESOLINE) injection 10 mg (has no administration in time range) aspirin chewable tablet 81 mg (81 mg Oral Given 01/11/2534) Or aspirin suppository 300 mg ( Rectal See Alternative 01/11/25833) acetaminophen (TYLENOL) tablet 650 mg (has no administration in time range) Or acetaminophen (TYLENOL) suppository 650 mg (has no administration in time range) pantoprazole (PROTONIX) injection 40 mg (40 mg Intravenous Given 01/11/2533) apixaban (ELIQUIS) tablet TABS 5 mg (5 mg Oral Given 01/11/252140) ARIPiprazole (ABILIFY) tablet 25 mg (25 mg Oral Given 01/11/252147) atorvastatin (LIPITOR) tablet 80 mg (80 mg Oral Given 01/11/2534) buPROPion SR (WELLBUTRIN SR) SR tablet 150 mg (150 mg Oral Given 01/11/252140) loratadine (CLARITIN) tablet 10 mg (10 mg Oral Given 01/11/25833) gabapentin (NEURONTIN) capsule 600 mg (600 mg Oral Given 01/11/252139) metoprolol Succinate (TOPROL-XL) XL tablet 25 mg ( Oral Automatically Held 01/17/25 09) lisinopril (PRINIVIL, ZESTRIL) tablet 20 mg ( Oral Automatically Held 01/17/25 09) montelukast (SINGULAIR) tablet 10 mg (10 mg Oral Given 01/11/251620) OXcarbazepine (TRILEPTAL) tablet 600 mg (600 mg Oral Given 01/11/252141) oxyCODONE-acetaminophen (PERCOCET) 5-325 MG per tablet 1 Tablet (1 Tablet Oral Given 01/12/25 0503) venlafaxine (EFFEXOR-XR) XR capsule 150 mg (150 mg Oral Given 01/11/25833) glucose (GLUTOSE) 40 % gel GEL 15 g (has no administration in time range) Or dextrose 50 % solution 12.5 g (has no administration in time range) insulin lispro (HumaLOG) 100 UNIT/ML injection 3-15 Units (11 Units Subcutaneous Given 01/11/251620) insulin lispro (HumaLOG) 100 UNIT/ML injection 2-6 Units (4 Units Subcutaneous Given 01/11/252140) polyethylene glycol (GLYCOLAX, MIRALAX) packet 17 g (17 g Oral Not Given 01/11/25899) albuterol (PROVENTIL, VENTOLIN) (2.5 MG/3ML) 0.083% nebulizer solution 2.5 mg (has no administration in time range) rOPINIRole (REQUIP) tablet 1 mg (has no administration in time range) potassium chloride SA (KLORCON M) tablet 40 mEq (40 mEq Oral Given 01/10/252357) potassium chloride IVPB 20 mEq 100 mL (0 mEq Intravenous Stopped 01/11/25 0158) insulin lispro (HumaLOG) 100 UNIT/ML injection 7 Units (7 Units Subcutaneous Given 01/11/25 0035) insulin glargine (LANTUS) 100 UNIT/ML injection 5 Units (5 Units Subcutaneous Given 01/11/25 0035) insulin glargine (LANTUS) 100 UNIT/ML injection 21 Units (21 Units Subcutaneous Given 01/11/25 1153) Review of Systems: A 14 point Review of Systems is obtained, and is negative other than that mentioned in the History of Present Illness. Objective: VITALS: Blood pressure 148/74, pulse 80, temperature 97.9 ??F (36.6 ??C), temperature source Tympanic, resp. rate 18, height 5' 9 (1.753 m), weight 236 lb 5 oz (107.2 kg), SpO2 99%. Weight: Wt Readings from Last 1 Encounters: 01/10/25 236 lb 5 oz (107.2 kg) Body mass index is 34.9 kg/m??. EXAM: General appearance: alert, no distress, cooperative, appears stated age Head: Normocephalic, without obvious abnormality, atraumatic Heart: regular rate and rhythm, S1, S2 normal, no murmur, click, rub or gallop Extremities: Extremities abnormal with toe amputations in the right foot. Neurologic: NIH Stroke Scale Level of consciousness 0=alert; keenly responsive LOC questions 0=Performs both tasks correctly LOC commands 0=Performs both tasks correctly Best Gaze 0=normal Visual 0=No visual loss Facial Palsy 0=Normal symmetric movement Motor left arm 0=No drift, limb holds 90 (or 45) degrees for full 10 seconds Motor right arm 0=No drift, limb holds 90 (or 45) degrees for full 10 seconds Motor left leg 0=No drift, limb holds 90 (or 45) degrees for full 10 seconds Motor right leg 0=No drift, limb holds 90 (or 45) degrees for full 10 seconds Limb Ataxia 0=Absent Sensory 0=Normal; no sensory loss Best Language 0=No aphasia, normal Dysarthria 0=Normal Extinction and Inattention 0=No abnormality TOTAL 0 Time NIHSS performed: 01/12/25 Data Review: Radiology Reviewed: yes No results found. CBC: Lab Results Component Value Date WBC 10.97 01/12/2025 RBC 4.58 01/12/2025 HEMOGLOBIN 14.9 01/12/2025 PLATELETCNT 218 01/12/2025 CMP: Lab Results Component Value Date SODIUM 139 01/12/2025 POTASSIUM 3.3 (L) 01/12/2025 CHLORIDE 106 01/12/2025 CO2VEN 23 01/12/2025 ANIONGAP 13.3 01/12/2025 GLUCOSE 285 (H) 01/12/2025 BUN 14 01/12/2025 CREATININE 1.31 (H) 01/12/2025 BCRATIO8 11 (L) 01/12/2025 TOTALPROTEIN 7.2 01/10/2025 ALBUMIN 4.5 01/10/2025 CALCIUM 9.2 01/12/2025 TBIL 0.5 01/10/2025 SGPTALT 40 01/10/2025 ALKALINEPHO 142 01/10/2025 GFRNA 57 (L) 01/12/2025 GFRA >60 01/12/2025 GFRES >60 01/12/2025 Coagulation: Lab Results Component Value Date INR 0.9 02/26/2023 PTT 59 (H) 08/08/2020 Cardiac markers: Lab Results Component Value Date TROPONINI <0.300 06/05/2021 ABGs: No results found for: PHARTERIAL, CO2ART, OVZ8MBM, PO2ART, O2ART Lab Results Component Value Date CHOLESTEROL 149 01/11/2025 TRIGLYCRIDES 371 (H) 01/11/2025 HDLCHOLESTE 32 (L) 01/11/2025 LDL 43 01/11/2025 Lab Results Component Value Date HGBA1C 12.4 (H) 01/10/2025 I personally reviewed the above labs and radiological studies (images if available and reports), and agree with the radiologist unless stated above. By: Jcarlos Sen MD, 01/12/2025, 7:46 AM CDT Primary Care Physician: TAD BECKER MD [1] Past Surgical History: Procedure Laterality Date COLONOSCOPY N/A 10/06/2020 Procedure: COLONOSCOPY NEGATIVE TI, DESCENDING COLON POYP, SIGMOID COLON POLYP, HEMORRHOIDS; Surgeon: Nikko Galdamez DO; Location: [facility]; Service: Gastroenterology HAMMER TOE SURGERY Right PARATHYROIDECTOMY TOE AMPUTATION Great toe right TONGUE SURGERY UVULOPALATOPHARYGOPLASTY For sleep apnea [2] Allergies Allergen Reactions Iodine Dye [Iodinated Contrast Media] Shortness of Breath Per patient, he had SOB for 30 seconds after receiving contrast at another facility during a contrasted CT exam. ER Dr. Ferguson premedicated patient [address] Chest w/ on 12/13/2019 with 125mg Solumedrol and 50mg Benadryl. Patient had no reaction during exam. Breo Ellipta [Fluticasone Furoate-Vilanterol] Shortness of Breath Toradol [Ketorolac Tromethamine] Unknown documented in this encounter ED Notes * Farheen Lara RN - 01/12/2025 12:58 PM CDT Met with patient. Education and handouts were provided in the Stroke Education folder on ischemic strokes, TIA, causes, risk factors including HTN, DM, HLD, Obesity, and smoking; lifestyle changes for prevention including smoking cessation and dietary and activity guidelines, maintaining brain health, the importance of medication and follow-up compliance, anticoagulant use, and pt was invited to the [facility] Stroke Support Group with the next meeting scheduled for February 02, 2025. Pt was also educated in depth on stroke symptom recognition, B.E.F.A.S.T., and the importance of calling 911 immediately if these symptoms develop, with emphasis placed on not waiting. Pt verbalized understanding of all education using teach back. Denied questions, concerns, or requests at this time; was encouragedto contact the stroke navigator, neurology group, or nursing staff if these arise. My contact information was provided. Pt sitting comfortably up in bed with belongings and call light within reach. -RN Stroke Navigator documented in this encounter Miscellaneous Notes * Interdisciplinary - Marie Murdock RN - 01/12/2025 7:21 PM CDT Patient discharged via family vehicle. Discharge instructions given. * Plan of Care - Marie Murdock RN - 01/12/2025 7:19 PM CDT Problem: Adult Inpatient Plan of Care Goal: Plan of Care Review Outcome: Outcome Achieved Goal: Optimal Comfort and Wellbeing Outcome: Outcome Achieved Goal: Readiness for Transition of Care Outcome: Outcome Achieved Problem: Fall Injury Risk Goal: Absence of Fall and Fall-Related Injury Outcome: Outcome Achieved Problem: Stroke, Ischemic (Includes Transient Ischemic Attack) Goal: Optimal Coping Outcome: Outcome Achieved Goal: Effective Bowel Elimination Outcome: Outcome Achieved Goal: Optimal Cerebral Tissue Perfusion Outcome: Outcome Achieved Goal: Optimal Cognitive Function Outcome: Outcome Achieved Goal: Improved Communication Skills Outcome: Outcome Achieved Goal: Optimal Functional Ability Outcome: Outcome Achieved Goal: Optimal Nutrition Intake Outcome: Outcome Achieved Goal: Effective Oxygenation and Ventilation Outcome: Outcome Achieved Goal: Improved Sensorimotor Function Outcome: Outcome Achieved Goal: Safe and Effective Swallow Outcome: Outcome Achieved Goal: Effective Urinary Elimination Outcome: Outcome Achieved Problem: Functional Deficit Goal: Improved Balance and Postural Control Outcome: Outcome Achieved Goal: Optimal Cognitive Function Outcome: Outcome Achieved Goal: Optimal Coordination Outcome: Outcome Achieved Goal: Improved Muscle Strength Outcome: Outcome Achieved Goal: Improved Muscle Tone Outcome: Outcome Achieved Goal: Optimal Range of Motion Outcome: Outcome Achieved Goal: Compensation for Sensory Deficit Outcome: Outcome Achieved * Ty - Hallie Nolen - 01/12/2025 3:50 PM CDT Case Management Discharge Readiness Note Discharge Disposition: Home or Self Care Discharge plan details: Patient is returning home without needs. Discussed home health and he declines at this time. Discharge transportation mode: Personal vehicle Date transport expected: 01/12/25 Handoff for discharging bedside nurse: NONE Nurse(s) notified: yes, notified Jeanne RN and Tianna RN at 3:50 PM CDT via [employer] Secure Chat with Reply, SÁNCHEZ NOLEN, Family Independence Case Manager. Discharge Milestones documented: Yes Post Acute Service Discharge Coordination NONE Decision Maker: Patient is assumed to be the medical decision maker Caregiver: declined Information regarding home, equipment or outpatient services documented in Patient Discharge Instructions on AVS: NA Notifications to patient/family: Patient/ decision maker & support person(s) notified: Tae Patterson Patient's family/ caregiver ready, willing and able to support patient with a community discharge plan: Did not speak with family/caregiver during this contact. IM Letter Documentation, if applicable - N/A - Medicare but Observation, Jail Inpatient,Emergency, or Ambulatory Surgery patient class Tae Patterson's readmission risk level (if calculated) is: 0-Remove Patient Class: Outpatient with Observation Services Consecutive Inpatient Midnights :none - not currently inpatient class Actual day(s) of hospital stay (compare to working DRG): 2 * Interdisciplinary - Brigette Patterson, RD - 01/12/2025 1:04 PM CDT ASSESSMENT: Nutrition Assessment triggered by-diabetic diet education. PROBLEM: Altered nutrition related lab results related to uncontrolled diabetes as evidenced by HgbA1c of 12.4H. Principal Problem: Left sided numbness Past Medical History: Past Medical History Positives Diagnosis Date Adenomatous colon polyp Anxiety Arthritis Bipolar 1 disorder, mixed, mild (HCC) CKD (chronic kidney disease) Clotting disorder (FORM[facility]LY [facility]) COPD (chronic obstructive pulmonary disease) ([facility]) CVA (cerebral vascular accident) (FORM[facility]) 2004 Depression DM (diabetes mellitus) ([facility]) blood sugar has been WNL for 2 years DVT (deep venous thrombosis) ([facility]) R arm, August 2019 Empyema ([facility]) GERD (gastroesophageal reflux disease) History of pulmonary embolus (PE) 01/11/2025 HLD (hyperlipidemia) HTN (hypertension) 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 100% consumed at lunch IV's: insulin lispro, insulin glargine, zofran PRN Skin/Wound: no concerns reported Labs noted: 01/12/25: Na-139, K-3.3L, BUN-14, Cr-1.31H, BUN/cr-11L, glu-285H, Ca-9.2, GFR- 57L, hgb-14.9, hct-42.7 Meds noted: zofran PRN, tums Education needs: diabetic diet education Height: Ht Readings from Last 1 Encounters: 01/10/25 5' 9 (1.753 m) Weight: Wt Readings from Last 1 Encounters: 01/10/25 236 lb 5 oz (107.2 kg) IBW: 128-168 lbs BMI: Body mass index is 34.9 kg/m??. Weight hx: 07/10/24-233 lb 4 oz 06/26/24-237 lbs 03/11/24-220 lbs NEEDS:81 kg Calories: 0066-2568 kcals (25-28 kcal/kg) Protein: 65-81 g pro(0.8-1 g/kg) Fluid: 2430 ml fluid (30 ml/kg) GOAL: nutrition adequacy INTERVENTION: Noted patient was on mounjaro summer 2023 but due to hypoglycemic episodes diet controlled since then. Patient reports consumption of soda/sugary snacks cause of increased A1c. Reports he was previouslyable to control A1c level pretty well. Encouraged decreasing sugary drink consumption, choosing healthier carb sources at meals, including protein at each meal (patient reports CKD stage 3- estimatedprotein needs above based on this dx), eating at the same time each day, and exercising for blood sugar control. Patient reports he sees a pain doctor in [facility] with recommendation for high protein carnivore type diet- would not recommend this due to CKD stage 3. Diabetic diet educational handout provided. Neurology consult. Suggest endocrinology and outpatient rn diabetes educator consult. PT/OT. REASSESS: 01/16/[address] * Plan of Care - Valeria Griffin, OT - 01/12/2025 12:59 PM CDT Activity Recommendations: Recommendations for floor staff include up with assist and requires Stand by assist with No device.Activity recommendations communicated with RN. Discharge Recommendations: From a therapy perspective, at the time of discharge it appears that patient would benefit from Home health Occupational therapy due to decreased functional mobility. Therapist discussed this recommendation with RN. DME recommendations include:To be determined Assessment: Significant occupational therapist findings with this patient include Decreased endurance and Decreased strength that leads to functional limitations including decreased ability to safely complete ADLs and IADL. This represents a functional decline that requires acute OT intervention. Patient will benefit fromoccupational therapy to address these deficits during their hospitalization. Strengths of this patient include Family support and Good participation/motivation. Anticipate patient will progress toward stated goals with therapeutic intervention. OT Plan of Care Date of Initial Evaluation: 01/12/25 Patient to be seen by Occupational Therapy 3 to 4 x/week to address impairments and functional limitations. Treatments to include: Self care retraining, Balance training, Therapeutic activities, Mobility/Transfers, Safety, and Therapeutic exercise Precautions: Fall and Monitor Vitals Goals to be achieved by: 01/19/25 - Patient will perform bed mobility with Modified Independent to be able to assist with positioning. - Patient will perform upper body dressing with Independent to be able to complete independently atdischarge. - Patient will perform lower body dressing with Independent using adaptive equipment as needed to be able to complete independently at discharge. - Patient will perform toileting with Modified Independent using adaptive equipment as needed to beable to complete independently at discharge. - Patient will improve AM-PAC score to be greater than or equal to 24 points to indicate improved overall daily function. Patient stated goal: to go home Preferred Language Dutch Occupational Therapy Initial Evaluation Subjective: I just want to be home. I don't think I need anything when I leave. Pain: Location: back, neck (0-10) Pain Rating: Rest: 6 (0-10) Pain Rating: Activity: 6 Home Environment: Patient lives with roommateAbraham in Single story home. Patient has 4 stairs toenter with bilateral rails. Home has walk-in shower, shower chair, handheld shower head, and showergrab bars. Prior Level of Function: Mobility/Transfers: Completed independently Bathing: Completed independently Dressing: Completed independently Grooming: Completed independently Self-Feeding: Completed independently Toileting: Completed independently Homemaking: Completed independently, shared responsibility with roommate Driving: Completed independently Examination: History of present illness: This is a 54 y.o. year old male who was admitted on 01/10/2025 for left sided weakness. Relevant past medical history includes: has a past medical history of Adenomatous colon polyp, Anxiety, Arthritis, Bipolar 1 disorder, mixed, mild (FORM[facility]), CKD (chronic kidney disease), Clotting disorder ([facility]), COPD (chronic obstructive pulmonary disease) ([facility]), CVA (cerebral vascular accident) ([facility]) (2004), Depression, DM (diabetes mellitus) ([facility]), DVT (deep venous thrombosis) ([facility]), Empyema ([facility]), GERD (gastroesophageal reflux disease), History of pulmonary embolus (PE) (01/11/2025), HLD (hyperlipidemia), HTN (hypertension), 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 Observations/Medical equipment/If others present in the room: Patient was seen in room. building mover. Orientation: Patient oriented x4. Commanding: WFL Short term memory: Intact knuckler memory: Intact Cognition: No further cognitive testing is indicated at this time Safety awareness: Intact Range of Motion RUE: WFL LUE: WFL Upper Extremity Tone: o No current concerns Strength Right upper extremity: 4/5 Left upper extremity: 4/5 Bed mobility ? Supine to Sit: Stand by assist with Set up and Verbal Cues using Bed Rails . ? Sit to supine: Stand by assist with Set up and Verbal Cues using Bed Rails. Transfers: ? Sit to Stand transfer with Stand by assist and Set up and Verbal Cues using No device. ? Stand to Sit transfer with Stand by assist and Set up and Verbal Cues using No device. Transfer Details: Patient stood up before a gait belt could be placed. Sitting balance: Static: good Dynamic: good Standing balance: Static: good Dynamic: good Coordination: serial opposition intact bilaterally Sensation: RUE: WFL LUE: patient reports numbness/tingling in fingers. Endurance: Fair Education provided: benefit of OT Outcome Measure: Gardner AM-PAC 6 Clicks Daily Activity How much help from another person does the patient currently need ??? 1.Putting on and taking off lower body clothing? 4 None 2. Bathing (including washing, rinsing, drying?) 4 None 3. Toileting, which includes using toilet, bedpan or urinal? 4 None 4. Putting on and taking off regular upper body clothing? 4 None 5. Taking care of personal grooming such as brushing teeth? 4 None 6. Eating meals? 4 None Raw Score 24 18 or Less= predictive of discharge to institutional setting 19-24 predictive of discharge to home actual discharge disposition may be impacted by other factors jacky Colon. Association of A-PAC ???6 Clicks?? Basic Mobility and Daily Activity Scores with Discharge Destination. PTJ. July 2020 Patient returned to bed with bed alarm on and call light in reach. OT Eval /Treat Visit and Timing Start Time: 1259 Stop Time: 1309 Time Calculation (min): 10 min OT Received On: 01/12/25 Type of visit: Evaluation OT Evaluation (Moderate) Time Entry: 10 All charges today are appropriate and separate from each other. Next session plan to continue per POC. VALERIA GRIFFIN OT * Plan of Care - Valeria Griffin OT - 01/12/2025 11:13 AM CDT Attempted to see patient for OT evaluation. Patient was resting in bed, with difficulty keeping hiseyes open. He requested for therapist to return later. Will attempt at a later date/time. VALERIA GRIFFIN OT * Interdisciplinary - Jeanne Osullivan RN - 01/12/2025 8:00 AM CDT Awake and alert per bed.Resp even.Tele in place. Able to move all ext.Following commands. Dr Sen here to see pt. Pt to have echocardiogram this am * Interdisciplinary - Jeanne Osullivan RN - 01/12/2025 8:00 AM CDT Stroke education completed at this time with Patient , specifically surrounding the following risk factors high blood pressure. * Ty - Ash Alas CRT - 01/12/2025 7:48 AM CDT Respiratory Therapy Assessment And Education Points 0 1 2 3 4 Score Pulmonary History No Smoking Smokes <1 ppd Smokes 1 ppd or more Pulmonary impairment (acute or chronic) Severe or Chronic exacerbation 3 Surgical Status None General Surgery Lower Abdominal Surgery Thoracic or Upper Abdominal Surgery Thoracic with Pulmonary Disease 0 CXR (from last 24 hrs) Clear Unavailable Infiltrates, Atelectasis or Pleural effusion Infiltrates in more than 1 lobe Infiltrates plus Atelectasis or Pleural effusion 1 Respirations Regular Pattern, RR 8-20 Increased, RR 21-25 Dyspnea on exertion, irregular pattern, RR 26-30 Use of accessory muscles, prolonged expiration, RR 31-35 Severe SOB with use of accessory muscles, RR >35 0 BS Clear Diminished Unilaterally Diminished Bilaterally Crackles in Bases Wheezing and/or Rhonchi 0 Cough Strong, Non- productive cough Strong, productive cough Weak, Non- productive cough Weak, productive cough No cough, may require suctioning 0 Mental status Alert and oriented Lethargic, follows commands Confused, does not follow commands Obtunded Comatose 0 Level of Activity Ambulatory Ambulatory with assistance Temporarily non-Ambulatory Bed rest, able to position self Bed rest, unable to position self 1 O2 required to keep SpO2 >=92% (or ordered goal) None 1-3 L/M or FiO2 25-35% 4-6 L/M or FiO2 35-50% >50% 100% 0 Total Score 5 Treatment Scoring Guide Frequency Utilize ORDER SET for all changes Severity Level 5 > 20 points Q2 and Q4 Albuterol Q2 and Ipratropium Q4 *Discontinue previous orders* Severity Level 4 16-20 points Q4 and PRN Duoneb Q4 and Albuterol Q2 PRN *Discontinue previous orders* Severity Level 3 11-15 points QID and PRN Duoneb QID and Albuterol Q4 PRN *Discontinue previous orders* Severity Level 2 6-10 points TID and Q6 PRN Albuterol only *Discontinue previous orders* Severity Level 1 0-5 points Q6 PRN Albuterol only *Discontinue previous orders* Home Regimen Home medication orders As per reconciled home medications Patient RTA Severity Level Is: level 1 Patient Progression Since Admission: not changed Treatment Plan Adjusted: No: Education Documented (within Education Tab): Yes Education Provided To: patient Comments: By: ASH ALAS CRT; 01/12/2025, 7:48 AM CDT * Plan of Care - Heather Nation RN - 01/12/2025 1:42 AM CDT Day 2 - Current (ADULT ISCHEMIC STROKE TIA PATHWAY) Day 2 - Neuro Deficits Stable And/Or Improved Outcome: Met Day 2 - Antiplatelet Therapy Initiated Outcome: Met Problem: Adult Inpatient Plan of Care Goal: Plan of Care Review 01/12/2025141 by HEATHER Outcome: Ongoing (see interventions/notes) Flowsheets Taken 01/12/2025141 by HEATHER Progress: progress toward functional goals as expected Outcome Evaluation: pts NIH score has been 1 this shift, fall precautions in place Taken 01/11/2025433 by BOLA Plan of Care Reviewed With: patient Today's Goal: No progression of stroke symptoms 01/12/2025141 by HEATHER Outcome: Ongoing (see interventions/notes) Flowsheets Taken 01/12/2025141 by HEATHER Outcome Evaluation: pts NIH score has been 1 this shift, fall precautions in place Taken 01/11/2025 0434 by BOLA Plan of Care Reviewed With: patient Progress: progress toward functional goals is gradual Today's Goal: No progression of stroke symptoms Goal: Optimal Comfort and Wellbeing 01/12/2025141 by HEATHER Outcome: Ongoing (see interventions/notes) 01/12/2025141 by HEATHER Outcome: Ongoing (see interventions/notes) Intervention: Monitor Pain and Promote Comfort Flowsheets (Taken 01/11/20251999) Pain Management Interventions: quiet environment facilitated diversional activity provided care clustered position adjusted Intervention: Provide Person-Centered Care Flowsheets (Taken 01/12/2025141) Trust Relationship/Rapport: care explained questions answered therapeutic presence provided thoughts/feelings acknowledged Goal: Readiness for Transition of Care 01/12/2025141 by HEATHER Outcome: Ongoing (see interventions/notes) 01/12/2025141 by HEATHER Outcome: Ongoing (see interventions/notes) Problem: Fall Injury Risk Goal: Absence of Fall and Fall-Related Injury 01/12/2025141 by HEATHER Outcome: Ongoing (see interventions/notes) 01/12/2025141 by HEATHER Outcome: Ongoing (see interventions/notes) Intervention: Identify and Manage Contributors Flowsheets Taken 01/11/20251999 by HEATHER Medication Review/Management: medications reviewed Taken 01/11/2025 0434 by BOLA Self-Care Promotion: independence encouraged BADL personal objects within reach Intervention: Promote Injury-Free Environment Flowsheets (Taken 01/11/20251999) Safety Promotion/Fall Prevention: bed alarm, refused Problem: Stroke, Ischemic (Includes Transient Ischemic Attack) Goal: Optimal Coping 01/12/2025141 by HEATHER Outcome: Ongoing (see interventions/notes) 01/12/2025141 by HEATHER Outcome: Ongoing (see interventions/notes) Intervention: Support Psychosocial Response to Stroke Flowsheets (Taken 01/11/20251999) Family/Support System Care: self-care encouraged Goal: Effective Bowel Elimination 01/12/2025141 by HEATHER Outcome: Ongoing (see interventions/notes) 01/12/2025141 by HEATHER Outcome: Ongoing (see interventions/notes) Goal: Optimal Cerebral Tissue Perfusion 01/12/2025141 by HEATHER Outcome: Ongoing (see interventions/notes) 01/12/2025141 by HEATHER Outcome: Ongoing (see interventions/notes) Intervention: Protect and Optimize Cerebral Perfusion Flowsheets Taken 01/12/2025141 by HEATHER Sensory Stimulation Regulation: quiet environment promoted Taken 01/11/2025 0434 by BOLA Cerebral Perfusion Promotion: blood pressure monitored Goal: Optimal Cognitive Function 01/12/2025141 by HEATHER Outcome: Ongoing (see interventions/notes) 01/12/2025141 by HEATHER Outcome: Ongoing (see interventions/notes) Intervention: Optimize Cognitive Function Flowsheets Taken 01/12/2025141 by HEATHER Sensory Stimulation Regulation: quiet environment promoted Taken 01/11/2025 0434 by BOLA Reorientation Measures: clock in view Goal: Improved Communication Skills 01/12/2025141 by HEATHER Outcome: Ongoing (see interventions/notes) 01/12/2025141 by HEATHER Outcome: Ongoing (see interventions/notes) Goal: Optimal Functional Ability 01/12/2025141 by HEATHER Outcome: Ongoing (see interventions/notes) 01/12/2025141 by HEATHER Outcome: Ongoing (see interventions/notes) Intervention: Optimize Functional Ability Flowsheets Taken 01/11/20251999 by Kaitlynn Activity Management: activity adjusted per tolerance activity encouraged Taken 01/11/2025 0434 by BOLA Self-Care Promotion: independence encouraged BADL personal objects within reach Goal: Optimal Nutrition Intake 01/12/2025141 by HEATHER Outcome: Ongoing (see interventions/notes) 01/12/2025141 by HEATHER Outcome: Ongoing (see interventions/notes) Goal: Effective Oxygenation and Ventilation 01/12/2025141 by HEATHER Outcome: Ongoing (see interventions/notes) 01/12/2025141 by HEATHER Outcome: Ongoing (see interventions/notes) Intervention: Optimize Oxygenation and Ventilation Flowsheets (Taken 01/11/20251999 by Kaitlynn) Head of Bed (HOB) Positioning: HOB at 20-30 degrees Goal: Improved Sensorimotor Function 01/12/2025141 by HEATHER Outcome: Ongoing (see interventions/notes) 01/12/2025141 by HEATHER Outcome: Ongoing (see interventions/notes) Intervention: Optimize Range of Motion, Motor Control and Function Flowsheets Taken 01/12/2025141 by HEATHER Range of Motion: active ROM (range of motion) encouraged Taken 01/11/20251999 by Kaitlynn Positioning/Transfer Devices: pillows in use Goal: Safe and Effective Swallow 01/12/2025141 by HEATHER Outcome: Ongoing (see interventions/notes) 01/12/2025141 by HEATHER Outcome: Ongoing (see interventions/notes) Goal: Effective Urinary Elimination 01/12/2025141 by HEATHER Outcome: Ongoing (see interventions/notes) 01/12/2025141 by HEATHER Outcome: Ongoing (see interventions/notes) * Ty - Heather Nation RN - 01/11/2025 8:02 PM CDT Stroke education completed at this time with Patient , specifically surrounding the following risk factors hypertension, obesity, and sleep apnea. Handout provided. * Heather Duran RN - 01/11/2025 6:35 PM CDT Received report from Sofy CASTELLON, patient resting in bed watching tv. No signs of acute distress or c/o at this time. Tele in place. * Interdisciplinary - Brigette Patterson RD - 01/11/2025 2:12 PM CDT Diabetes diet education attached to AVS. * PatientPass Patient Instructions - Brigette Patterson RD - 01/11/2025 2:12 PM CDT Images from the original note were not included. Patient Education Table of Contents Diabetes: Healthy Eating for Adults To view videos and all your education online visit, [email or web address] or scan this QR code with your smartphone. Access to this content will in one year. Diabetes: Healthy Eating for Adults When you have diabetes, also called diabetes mellitus, it's important to have healthy eating habits. Your blood sugar (glucose) levels are greatly affected by what you eat and drink. You need to eat healthy foods in the right amounts, at about the same times each day. Doing this can help you: Manage your blood sugar. Lower your risk of heart disease. Improve your blood pressure. Reach or stay at a healthy weight. What can affect my meal plan? Every person with diabetes is different. And each person has different needs for a meal plan. Your health care provider may suggest that you work with an expert in healthy eating called a dietitian. They can help you make a meal plan that's best for you. How do carbohydrates affect me? Carbohydrates, also called carbs, affect your blood sugar level more than any other type of food. Eating carbs raises the amount of sugar in your blood. It's important to know how many carbs you can safely have in each meal. This is different for everyperson. Your dietitian can help you calculate how many carbs you should have at each meal and for each snack. How does alcohol affect me? Alcohol can cause a decrease in blood sugar (hypoglycemia), especially if you use insulin or take certain diabetes medicines by mouth. Hypoglycemia can be a life-threatening condition. Symptoms of hypoglycemia are similar to those of having too much alcohol. They include confusion, being sleepy, and feeling dizzy. Do not drink alcohol if: Your provider tells you not to drink. You're , may be , or plan to become . What are tips for following this plan? Reading food labels Start by checking the serving size on the Nutrition Facts label of packaged foods and drinks. The number of calories and the amount of carbs, fats, and other nutrients listed on the label are based on one serving of the item. Many items contain more than one serving per package. Check the total grams (g) of carbs in one serving. Check the number of grams of saturated fats and trans fats in one serving. Choose foods that have alow amount or none of these fats. Check the number of milligrams (mg) of salt (sodium) in one serving. Most people should limit theirtotal sodium intake to less than 2,300 mg per day. Always check the nutrition information of foods labeled as low-fat or nonfat. These foods may be higher in added sugar or refined carbs and should be avoided. Talk to your dietitian to identify your daily goals for nutrients listed on the label. Shopping Avoid buying canned, pre-made, or processed foods. These foods tend to be high in fat, sodium, and added sugar. Shop around the outside edge of the grocery store. This is where you'll most often find fresh fruits and vegetables, bulk grains, fresh meats, and fresh dairy products. Cooking Use low-heat cooking methods, such as baking, instead of high-heat methods like deep frying. Cook using healthy oils, such as olive, canola, or sunflower oil. Avoid cooking with butter, cream, or high-fat meats. Meal planning Eat meals and snacks regularly. Try to eat them at the same times every day. Avoid going too long without eating. Eat foods that are high in fiber, such as fresh fruits, vegetables, beans, and whole grains. Eat 4?6 oz (112?168 g) of lean protein each day, such as lean meat, chicken, fish, eggs, or tofu. One ounce (oz) (28 g) of lean protein is equal to: ? 1 oz (28 g) of meat, chicken, or fish. ? 1 egg. ? ? cup (62 g) of tofu. Eat some foods each day that contain healthy fats, such as avocado, nuts, seeds, and fish. What foods should I eat? Fruits Berries. Apples. Oranges. Peaches. Apricots. Plums. Grapes. Mangoes. Papayas. Pomegranates. Kiwi. Cherries. Vegetables Leafy greens, including lettuce, spinach, kale, chard, james greens, mustard greens, and cabbage.Beets. Cauliflower. Broccoli. Carrots. Green beans. Tomatoes. Peppers. Onions. Cucumbers. [place] sprouts. Grains Whole grains, such as whole-wheat or whole-grain bread, crackers, tortillas, cereal, and pasta. Unsweetened oatmeal. Quinoa. Brown or wild rice. Meats and other proteins Seafood. Poultry without skin. Lean cuts of poultry and beef. Tofu. Nuts. Seeds. Dairy Low-fat or fat-free dairy products such as milk, yogurt, and cheese. The items listed above may not be all the foods and drinks you can have. Talk with a dietitian to learn more. What foods should I avoid? Fruits Fruits canned with syrup. Vegetables Canned vegetables. Frozen vegetables with butter or cream sauce. Grains Refined white flour and flour products such as bread, pasta, snack foods, and cereals. Avoid all processed foods. Meats and other proteins Fatty cuts of meat. Poultry with skin. Breaded or fried meats. Processed meat. Avoid saturated fats. Dairy Full-fat yogurt, cheese, or milk. Beverages Sweetened drinks, such as soda or iced tea. The items listed above may not be all the foods and drinks you should avoid. Talk with a dietitian to learn more. Where to find more information: To learn more, go to: Academy of Nutrition and Dietetics at eatright.org. 1. Click Search and type diabetes. Find the link you need. Centers for Disease Control and Prevention at cdc.gov. 1. Click Search and type diabetes. Find the link you need. [place] Diabetes Association: diabetes.org/food-nutrition National [place] of Diabetes and Digestive and Kidney Diseases: niddk.nih.gov This information is not intended to replace advice given to you by your health care provider. Make sure you discuss any questions you have with your health care provider. Document Released: 2006-03-01 Document Updated: 2024-05-22 Document Reviewed: 2024-05-22 [employer] Patient Education ? 2024 [employer] * Plan of Care - Sofy Lopze RN - 01/11/2025 11:57 AM CDT Day 1 - Current (ADULT ISCHEMIC STROKE TIA PATHWAY) Day 1 - Hemodynamically Stable Outcome: Met Day 1 - Neuro Deficits Stable and/or Improved Outcome: Met Day 1 - Cardiac Rhythm Controlled and Monitoring for atrial fibrillation Outcome: Met Day 1 - Adequate patient nutritional intake Outcome: Met Day 1 - Identifying Depression Risk and interventions needed Outcome: Met Problem: Adult Inpatient Plan of Care Goal: Plan of Care Review Flowsheets (Taken 01/11/2025433 by BOLA) Plan of Care Reviewed With: patient Progress: progress toward functional goals is gradual Today's Goal: No progression of stroke symptoms Outcome Evaluation: Patient rested well through the night with no additional symptoms and other deficits have resolved Problem: Fall Injury Risk Goal: Absence of Fall and Fall-Related Injury Intervention: Identify and Manage Contributors Flowsheets Taken 01/11/2025 0842 by SOFY Medication Review/Management: medications reviewed Taken 01/11/2025433 by BOLA Self-Care Promotion: independence encouraged BADL personal objects within reach Intervention: Promote Injury-Free Environment Flowsheets (Taken 01/11/2025 0842) Safety Promotion/Fall Prevention: nonskid shoes/slippers when out of bed bed alarm, refused Problem: Stroke, Ischemic (Includes Transient Ischemic Attack) Goal: Optimal Coping Intervention: Support Psychosocial Response to Stroke Flowsheets (Taken 01/10/20251924 by BOLA) Family/Support System Care: self-care encouraged presence promoted Goal: Effective Bowel Elimination Intervention: Promote Effective Bowel Elimination Flowsheets (Taken 01/11/2025433 by BOLA) Bowel Program: maintenance program followed Goal: Optimal Cerebral Tissue Perfusion Intervention: Protect and Optimize Cerebral Perfusion Flowsheets (Taken 01/11/2025433 by BOLA) Cerebral Perfusion Promotion: blood pressure monitored Goal: Optimal Cognitive Function Intervention: Optimize Cognitive Function Flowsheets (Taken 01/11/2025433 by BOLA) Reorientation Measures: clock in view Goal: Optimal Functional Ability Intervention: Optimize Functional Ability Flowsheets (Taken 01/11/2025433 by BOLA) Activity Management: up ad katina activity adjusted per tolerance Self-Care Promotion: independence encouraged BADL personal objects within reach Goal: Effective Oxygenation and Ventilation Intervention: Optimize Oxygenation and Ventilation Flowsheets (Taken 01/11/2025433 by BOLA) Head of Bed (HOB) Positioning: HOB at 30-45 degrees Goal: Improved Sensorimotor Function Intervention: Optimize Range of Motion, Motor Control and Function Flowsheets (Taken 01/11/2025354 by Avery) Positioning/Transfer Devices: in use pillows * Plan of Care - Shante Potter RN - 01/11/2025 11:30 AM CDT Case Management Decision Maker: Patient is assumed to be the medical decision maker Caregiver: declined SUMMARY CM to bedside for assessment. Patient is A&O x3. No PT/OT recommendations at this time. Patientagrees with discharge plan of home no needs, patient declines home health services at this time. Patient declines completion of HCPOA at this time. CM will continue to follow. No further needs at this time. Expected Disposition: Home or Self Care Details: Home no needs Barriers to discharge: Neuro consult, ECHO, MRI, I&O, labs Patient/family in agreement with expected discharge plan: yes Reason for discharge evaluation: Consult for HCPOA/ stroke Reason hospitalized: Left sided numbness Discharge Evaluation Evaluation completed with: Tae Patterson Preferred Language: Dutch Prior to Admission Hospital Transfer: NO At post-acute facility prior to hospitalization: NO 30-day rehospitalization: NO Living Situation Residence: House People in Home: significant other Home accessibility evaluation needed: NO - patient (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) has no preexisting or new mobility, endurance or balance concerns Roles/Relationships Marital status: Single Employment status: Not employed Provides Primary Care For: no one Equipment owned/used prior to hospitalization: NONE Respiratory equipment owned/ used: NONE Functional Baseline ADL baseline (eating, bathing, dressing/grooming, transfers/mobility, toileting): independent in all (no equipment) IADL baseline (medication administration, meal preparation, housekeeping/ laundry, shopping): independent Transportation drives self Additional Support, Living, & Functional Information (not otherwise specified) none Protective Services Involvement: Not evaluated In-Home Services (none/not applicable if blank) NONE Outpatient Services (none / not applicable if blank) NONE Primary Care Provider: TAD BECKER MD PCP last seen: Patient/insurance verification representative cannot recall/does not know. Preferred Pharmacy(ies) Preferred Pharmacy: [id number] [place] [address] [facility] [place] [address] [facility] [address] [place] [address] [address] [facility] [address] [place] [address] Coverage Information Primary Medical Coverage: Medicare C United[employer] Advantage Secondary Medical Coverage: Medicaid [place] Coverage through VA: No Additional coverage not listed on Facesheet: No Primary Rx drug coverage: Medicare Part D plan (see comment, if plan known) (optum) Financial concerns: No Advance Directives Advanced Directives within scanned media: NONE Patient / Decision Maker Discharge Planning Input Discharge plan preference: Home Confidence level in returning to pre-hospital setting: Very confident Anticipate patient can/will return to prior to hospital setting: yes Facesheet verification Facesheet permanent address verified: address correct Facesheet phone number(s) verified or updated: phone number(s) correct Facesheet patient's contact name(s)/phone number(s) verified or updated: contact(s) correct Facesheet marital status: marital status correct Tae Will's readmission risk level (if calculated) is: 0-Remove Patient Class: Outpatient with Observation Services Consecutive Inpatient Midnights :none - not currently inpatient class Actual day(s) of hospital stay (compare to working DRG): 1 No new referrals or updates for post-acute hospital services. * Interdisciplinary - Ellen Navarro RT - 01/11/2025 8:58 AM CDT Respiratory Therapy Assessment And Education Points 0 1 2 3 4 Score Pulmonary History No Smoking Smokes <1 ppd Smokes 1 ppd or more Pulmonary impairment (acute or chronic) Severe or Chronic exacerbation 3 Surgical Status None General Surgery Lower Abdominal Surgery Thoracic or Upper Abdominal Surgery Thoracic with Pulmonary Disease 0 CXR (from last 24 hrs) Clear Unavailable Infiltrates, Atelectasis or Pleural effusion Infiltrates in more than 1 lobe Infiltrates plus Atelectasis or Pleural effusion 1 Respirations Regular Pattern, RR 8-20 Increased, RR 21-25 Dyspnea on exertion, irregular pattern, RR 26-30 Use of accessory muscles, prolonged expiration, RR 31-35 Severe SOB with use of accessory muscles, RR >35 0 BS Clear Diminished Unilaterally Diminished Bilaterally Crackles in Bases Wheezing and/or Rhonchi 0 Cough Strong, Non- productive cough Strong, productive cough Weak, Non- productive cough Weak, productive cough No cough, may require suctioning 0 Mental status Alert and oriented Lethargic, follows commands Confused, does not follow commands Obtunded Comatose 0 Level of Activity Ambulatory Ambulatory with assistance Temporarily non-Ambulatory Bed rest, able to position self Bed rest, unable to position self 0 O2 required to keep SpO2 >=92% (or ordered goal) None 1-3 L/M or FiO2 25-35% 4-6 L/M or FiO2 35-50% >50% 100% 0 Total Score 4 Treatment Scoring Guide Frequency Utilize ORDER SET for all changes Severity Level 5 > 20 points Q2 and Q4 Albuterol Q2 and Ipratropium Q4 *Discontinue previous orders* Severity Level 4 16-20 points Q4 and PRN Duoneb Q4 and Albuterol Q2 PRN *Discontinue previous orders* Severity Level 3 11-15 points QID and PRN Duoneb QID and Albuterol Q4 PRN *Discontinue previous orders* Severity Level 2 6-10 points TID and Q6 PRN Albuterol only *Discontinue previous orders* Severity Level 1 0-5 points Q6 PRN Albuterol only *Discontinue previous orders* Home Regimen Home medication orders As per reconciled home medications Patient RTA Severity Level Is: Level 1 Patient Progression Since Admission: not changed Treatment Plan Adjusted: No: Education Documented (within Education Tab): Yes Education Provided To: patient Comments: By: RT BROOK; 01/11/2025, 8:58 AM CDT * Interdisciplinary - Sofy Lopez RN - 01/11/2025 8:47 AM CDT Stroke education completed at this time with Patient , specifically surrounding the following risk factors diabetes. Handout provided. * Plan of Care - Bola Webber RN - 01/11/2025 4:42 AM CDT Day 1 - Current (ADULT ISCHEMIC STROKE TIA PATHWAY) Day 1 - Identifying Depression Risk and interventions needed Outcome: Met Day 1 - VTE Intervention in place Outcome: Met Problem: Adult Inpatient Plan of Care Goal: Plan of Care Review Outcome: Ongoing (see interventions/notes) Flowsheets (Taken 01/11/2025 0434) Plan of Care Reviewed With: patient Progress: progress toward functional goals is gradual Today's Goal: No progression of stroke symptoms Outcome Evaluation: Patient rested well through the night with no additional symptoms and other deficits have resolved Goal: Optimal Comfort and Wellbeing Outcome: Ongoing (see interventions/notes) Intervention: Monitor Pain and Promote Comfort Flowsheets (Taken 01/11/2025 043) Pain Management Interventions: care clustered position adjusted quiet environment facilitated Intervention: Provide Person-Centered Care Flowsheets (Taken 01/10/2025 192) Trust Relationship/Rapport: care explained choices provided therapeutic presence provided thoughts/feelings acknowledged safe/supportive environment facilitated respect patient/family decisions provided reassurance provided Goal: Readiness for Transition of Care Outcome: Ongoing (see interventions/notes) Problem: Fall Injury Risk Goal: Absence of Fall and Fall-Related Injury Outcome: Ongoing (see interventions/notes) Intervention: Identify and Manage Contributors Flowsheets Taken 01/11/2025 043 Self-Care Promotion: independence encouraged BADL personal objects within reach Taken 01/10/2025 6928 Medication Review/Management: medications reviewed Intervention: Promote Injury-Free Environment Flowsheets (Taken 01/11/2025 0434) Safety Promotion/Fall Prevention: lighting adjusted for task/safety low bed commode/urinal/bedpan at bedside bed alarm, refused nonskid shoes/slippers when out of bed Problem: Stroke, Ischemic (Includes Transient Ischemic Attack) Goal: Optimal Coping Outcome: Ongoing (see interventions/notes) Goal: Effective Bowel Elimination Outcome: Ongoing (see interventions/notes) Note: Had BM on 01/10/25 Intervention: Promote Effective Bowel Elimination Flowsheets (Taken 01/11/2025 0434) Bowel Program: maintenance program followed Goal: Optimal Cerebral Tissue Perfusion Outcome: Ongoing (see interventions/notes) Intervention: Protect and Optimize Cerebral Perfusion Flowsheets (Taken 01/11/2025 0434) Cerebral Perfusion Promotion: blood pressure monitored Goal: Optimal Cognitive Function Outcome: Ongoing (see interventions/notes) Intervention: Optimize Cognitive Function Flowsheets (Taken 01/11/2025 043) Reorientation Measures: clock in view Goal: Improved Communication Skills Outcome: Ongoing (see interventions/notes) Goal: Optimal Functional Ability Outcome: Ongoing (see interventions/notes) Intervention: Optimize Functional Ability Flowsheets (Taken 01/11/2025 0434) Activity Management: up ad katina activity adjusted per tolerance Self-Care Promotion: independence encouraged BADL personal objects within reach Goal: Optimal Nutrition Intake Outcome: Ongoing (see interventions/notes) Goal: Effective Oxygenation and Ventilation Outcome: Ongoing (see interventions/notes) Intervention: Optimize Oxygenation and Ventilation Flowsheets (Taken 01/11/2025 043) Head of Bed (HOB) Positioning: HOB at 30-45 degrees Goal: Improved Sensorimotor Function Outcome: Ongoing (see interventions/notes) Goal: Safe and Effective Swallow Outcome: Ongoing (see interventions/notes) Goal: Effective Urinary Elimination Outcome: Ongoing (see interventions/notes) * Interdisciplinary - Fior Abdul, RT - 01/10/2025 11:27 PM CDT Respiratory Therapy Assessment And Education Points 0 1 2 3 4 Score Pulmonary History No Smoking Smokes <1 ppd Smokes 1 ppd or more Pulmonary impairment (acute or chronic) Severe or Chronic exacerbation 3 Surgical Status None General Surgery Lower Abdominal Surgery Thoracic or Upper Abdominal Surgery Thoracic with Pulmonary Disease 0 CXR (from last 24 hrs) Clear Unavailable Infiltrates, Atelectasis or Pleural effusion Infiltrates in more than 1 lobe Infiltrates plus Atelectasis or Pleural effusion 0 Respirations Regular Pattern, RR 8-20 Increased, RR 21-25 Dyspnea on exertion, irregular pattern, RR 26-30 Use of accessory muscles, prolonged expiration, RR 31-35 Severe SOB with use of accessory muscles, RR >35 0 BS Clear Diminished Unilaterally Diminished Bilaterally Crackles in Bases Wheezing and/or Rhonchi 0 Cough Strong, Non- productive cough Strong, productive cough Weak, Non- productive cough Weak, productive cough No cough, may require suctioning 0 Mental status Alert and oriented Lethargic, follows commands Confused, does not follow commands Obtunded Comatose 0 Level of Activity Ambulatory Ambulatory with assistance Temporarily non-Ambulatory Bed rest, able to position self Bed rest, unable to position self 0 O2 required to keep SpO2 >=92% (or ordered goal) None 1-3 L/M or FiO2 25-35% 4-6 L/M or FiO2 35-50% >50% 100% 0 Total Score 3 Treatment Scoring Guide Frequency Utilize ORDER SET for all changes Severity Level 5 > 20 points Q2 and Q4 Albuterol Q2 and Ipratropium Q4 *Discontinue previous orders* Severity Level 4 16-20 points Q4 and PRN Duoneb Q4 and Albuterol Q2 PRN *Discontinue previous orders* Severity Level 3 11-15 points QID and PRN Duoneb QID and Albuterol Q4 PRN *Discontinue previous orders* Severity Level 2 6-10 points TID and Q6 PRN Albuterol only *Discontinue previous orders* Severity Level 1 0-5 points Q6 PRN Albuterol only *Discontinue previous orders* Home Regimen Home medication orders As per reconciled home medications Patient RTA Severity Level Is: level 1 per protocol Patient Progression Since Admission: not changed Treatment Plan Adjusted: Yes Education Documented (within Education Tab): Yes Education Provided To: patient Comments: changed to level 1 per protocol By: RT THEE; 01/10/2025, 11:27 PM CDT * Interdisciplinary - Bola Webber RN - 01/10/2025 7:30 PM CDT .Initial Skin Assessment *Please chart 2nd RN's name in 4 Eyes section in the ADT Navigator under Skin Assessment. Wounds noted: None PRESSURE INJURY AND MOISTURE MANAGEMENT RECOMMENDATIONS: Moisture Management: Patient is Continent and has no moisture problems at this time Pressure Injury Prevention Interventions: Patient is independent in Room and/or Bed Specialty Surface Selection: Moisture Score: 4-->rarely moist Mobility Score: 3-->slightly limited Total Alexi Score: 21 Patient has intact skin on the pelvis and trunk: Bed Selection based on Alexi Moisture and Mobility: Moisture 4: Mobility 3 or 4: No Specialty Bed Indicated Wound care: N/A BOLA WEBBER RN * Interdisciplinary - Bola Webber RN - 01/10/2025 7:30 PM CDT Stroke education completed at this time with Patient , specifically surrounding the following risk factors tobacco use, hypertension, and diabetes. Handout provided. * Interdisciplinary - Dena Moser RN - 01/10/2025 7:15 PM CDT Pt has arrived via EMS as a direct admit from [facility]. No signs of distress noted at thistime. documented in this encounter Plan of Treatment Scheduled Orders Name Type Priority Associated Diagnoses Orde r Schedule Pulse Oximetry, Spot PFT Routine WITH VITALS until discontinued starting 01/10/2025 Scheduled Referrals Name Type Priority Associated Diagnoses Order Schedule [facility]FERR[facility] Outpatient Referral Routine Type 2 diabetes mellitus treated without insulin (HCC) Expected: 01/19/2025, Expires: 01/12/2026 documented as of this encounter Procedures Procedure Name Priority Date/Time Associated Diagnosis Comments GLUCOSE Routine 01/12/2025 4:23 PM CDT POCT GLUCOSE Routine 01/12/2025 4:08 PM CDT POCT GLUCOSE Routine 01/12/2025 12:25 PM CDT US BILATERAL CAROTID DUPLEX Routine 01/12/2025 11:01 AM CDT MRI BRAIN W/O CONTRAST Routine 01/12/2025 9:57 AM CDT ADULT TRANS THORACIC ECHO 2D COMPLETE Routine 01/12/2025 9:02 AM CDT POCT GLUCOSE Routine 01/12/2025 8:27 AM CDT CBC WITH AUTO DIFFERENTIAL Routine 01/12/2025 4:44 AM CDT COMPLETE BLOOD COUNT (CBC) WITH DIFF Routine 01/12/2025 4:44 AM CDT BASIC METABOLIC PANEL W/ CALCIUM TOTAL Routine 01/12/2025 4:44 AM CDT RHYTHM STRIP 01/12/2025 12:00 AM CDT RHYTHM STRIP 01/12/2025 12:00 AM CDT POCT GLUCOSE Routine 01/11/2025 8:04 PM CDT POCT GLUCOSE Routine 01/11/2025 4:10 PM CDT POCT GLUCOSE Routine 01/11/2025 11:27 AM CDT POCT GLUCOSE Routine 01/11/2025 7:39 AM CDT CBC WITH AUTO DIFFERENTIAL Routine 01/11/2025 4:20 AM CDT LIPID PANEL STAT 01/11/2025 4:20 AM CDT COMPLETE BLOOD COUNT (CBC) WITH DIFF Routine 01/11/2025 4:20 AM CDT BASIC METABOLIC PANEL W/ CALCIUM TOTAL Routine 01/11/2025 4:20 AM CDT POCT GLUCOSE Routine 01/11/2025 12:04 AM CDT RHYTHM STRIP 01/11/2025 12:00 AM CDT RHYTHM STRIP 01/11/2025 12:00 AM CDT RHYTHM STRIP 01/11/2025 12:00 AM CDT EKG 12 LEAD STAT 01/10/2025 10:[address] REFERENCE IMAGES FOR IMAGE IMPORT Routine 01/10/2025 8:50 PM CDT HEMOGLOBIN A1C W/ ESTIMATED GLUCOSE STAT 01/10/2025 8:13 PM CDT N-TERMINAL- PRO B TYPE NATRIURETIC PEPTIDE Routine 01/10/2025 8:13 PM CDT CBC WITH AUTO DIFFERENTIAL STAT 01/10/2025 8:13 PM CDT CMP (COMPREHENSIVE METABOLIC PANEL) STAT 01/10/2025 8:13 PM CDT COMPLETE BLOOD COUNT (CBC) WITH DIFF STAT 01/10/2025 8:13 PM CDT POCT GLUCOSE Routine 01/10/2025 8:05 PM CDT PT EVALUATE AND TREAT Routine 01/10/2025 7:52 PM CDT EKG SCAN 01/10/2025 12:00 AM CDT documented in this encounter Results * (ABNORMAL) Glucose (01/12/2025 4:23 PM CDT) GLUCOSE 378(H) 70 - 99 mg/dL 01/12/2025 5:02 PM CDT [facility] Blood Venipuncture / Unknown 01/12/2025 4:23 PM CDT 01/12/2025 4:30 PM CDT us Collette Francois MD CHEMISTRY ORDERABLES Final Result [facility] [place] [address] * (ABNORMAL) POCT Glucose (01/12/2025 4:08 PM CDT) Only the most recent of9 resultswithin the time period is included. GLUCOSE,BEDSID E POCT 402(HH) 70 - 99 mg/dL 01/12/2025 4:13 PM CDT [facility] Comment: RN Notified TOOK RUBIN ERWIN Blood 01/12/2025 4:08 PM CDT 01/12/2025 4:13 PM CDT us None Provider POINT OF CARE TESTING Final Resu lt [facility] [place] [address] * US BILATERAL CAROTID DUPLEX (01/12/2025 11:01 AM CDT) Anatomical Region Laterality Modality vascular Bilateral Ultrasound 01/12/2025 4:05 PM CDT Impressions 01/12/2025 4:08 PM CDT IMPRESSION: 1. Velocities correspond to a less than 50% diameter stenosis of the right ICA. 2. Velocities correspond to a 50-69% diameter stenosis of the left ICA. 3. Antegrade direction of flow of the bilateral vertebral arteries. REFERENCE: Consensus Panel Tsang-Scale and Doppler US Criteria for Diagnosis of ICA Stenosis. No stenosis: ICA PSV <125*, 0 percent plaque, ICA/CCA PSV Ratio <2.0, ICA EDV <40*. <50 percent stenosis: ICA PSV <125*, <50 percent plaque, ICA/CCA PSV Ratio <2.0, ICA EDV <40*. 50-69 percent stenosis: ICA PSV 125-230*, >=50 percent plaque, ICA/CCA PSV Ratio 2.0-4.0, ICA EDV 40-100*. >=70 percent but less than near occlusion >230, >=50 percent plaque, ICA/CAA PSV Ratio >4.0, ICA EDV >100*. *cm/sec Plaque estimate (diameter reduction) with tsang-scale and color Doppler US. RSNA 2003 Narrative 01/12/2025 4:08 PM CDT EXAM DESCRIPTION: US BILATERAL CAROTID DUPLEX REASON FOR STUDY: cva/tia TECHNIQUE: Tsang scale, color Doppler and spectral Doppler imaging were performed. Velocity criteria are extrapolated from diameter as defined by the Society of Radiologists in Ultrasound Consensus Conference. All velocity measurements are in cm/sec. COMPARISON: [facility] head and neck 12/15/2019 FINDINGS: Right: Mild intimal thickening and plaque are seen. Distal CCA Peak Systolic Velocity: 85.5 Distal CCA End Diastolic Velocity: 17.5 Peak ICA Systolic Velocity: 122.0 ICA End Diastolic Velocity: 32.1 Peak ICA/CCA Systolic Ratio: 1.43 Right Vertebral Artery: Antegrade direction of flow. Left: Mild intimal thickening and plaque are seen. Distal CCA Peak Systolic Velocity: 77.1 Distal CCA End Diastolic Velocity: 18.2 Peak ICA Systolic Velocity: 147.0 ICA End Diastolic Velocity: 51.3 Peak ICA/CCA Systolic Ratio: 1.91 Left Vertebral Artery: Antegrade direction of flow. THIS IS AN ELECTRONICALLY VERIFIED FINAL REPORT 01/12/2025 4:05 PM - Electronically signed by Enrique Groves M.D. AM: AM Report ID: [id number] Reading Location: [id number] Procedure Note Enrique Groves MD - 01/12/2025 EXAM DESCRIPTION: US BILATERAL CAROTID DUPLEX REASON FOR STUDY: cva/tia TECHNIQUE: Tsang scale, color Doppler and spectral Doppler imaging were performed. Velocity criteria are extrapolated from diameter as defined by the Society of Radiologists in Ultrasound Consensus Conference. All velocity measurements are in cm/sec. COMPARISON: CTA head and neck 12/15/2019 FINDINGS: Right: Mild intimal thickening and plaque are seen. Distal CCA Peak Systolic Velocity: 85.5 Distal CCA End Diastolic Velocity: 17.5 Peak ICA Systolic Velocity: 122.0 ICA End Diastolic Velocity: 32.1 Peak ICA/CCA Systolic Ratio: 1.43 Right Vertebral Artery: Antegrade direction of flow. Left: Mild intimal thickening and plaque are seen. Distal CCA Peak Systolic Velocity: 77.1 Distal CCA End Diastolic Velocity: 18.2 Peak ICA Systolic Velocity: 147.0 ICA End Diastolic Velocity: 51.3 Peak ICA/CCA Systolic Ratio: 1.91 Left Vertebral Artery: Antegrade direction of flow. THIS IS AN ELECTRONICALLY VERIFIED FINAL REPORT 01/12/2025 4:05 PM - Electronically signed by Enrique Groves M.D. AM: AM Report ID: [id number] Reading Location: [id number] IMPRESSION: 1. Velocities correspond to a less than 50% diameter stenosis of the right ICA. 2. Velocities correspond to a 50-69% diameter stenosis of the left ICA. 3. Antegrade direction of flow of the bilateral vertebral arteries. REFERENCE: Consensus Panel Tsang-Scale and Doppler US Criteria for Diagnosis of ICA Stenosis. No stenosis: ICA PSV <125*, 0 percent plaque, ICA/CCA PSV Ratio <2.0, ICA EDV <40*. <50 percent stenosis: ICA PSV <125*, <50 percent plaque, ICA/CCA PSV Ratio <2.0, ICA EDV <40*. 50-69 percent stenosis: ICA PSV 125-230*, >=50 percent plaque, ICA/CCA PSV Ratio 2.0-4.0, ICA EDV 40-100*. >=70 percent but less than near occlusion >230, >=50 percent plaque, ICA/CAA PSV Ratio >4.0, ICA EDV >100*. *cm/sec Plaque estimate (diameter reduction) with tsang-scale and color Doppler US. RSNA 2002 us Yissel Iniguez APRN, COST REDUCTION ENGINEER IMG US ORDERABLES Final R esult * MRI BRAIN W/O CONTRAST (01/12/2025 9:57 AM CDT) Anatomical Region Laterality Modality Head N/A Magnetic Resonan ce 01/12/2025 10:1 3 AM CDT Impressions 01/12/2025 10:16 AM CDT IMPRESSION: No acute infarction. Narrative 01/12/2025 10:16 AM CDT EXAM DESCRIPTION: MRI BRAIN W/O CONTRAST REASON FOR STUDY: Admitted 01/10/25 with c/o left arm and leg numbness and weakness onset day of admit TECHNIQUE: Multiplanar imaging includes non-contrasted T1, T2, FLAIR, and diffusion with ADC map sequences. Additional sequence(s) sensitive to blood products. Images stored on PACS. COMPARISON: CTA of the head and neck 12/15/2019 FINDINGS: No acute infarction. No evidence of acute or chronic hemorrhage identified. No mass effect, mass or midline shift. There is mild diffuse parenchymal volume loss. The posterior aspect of the lateral ventricles are mildly prominent in size which may be developmental . Scattered mild white matter T2/FLAIR hyperintensity in the periventricular and subcortical white matter is nonspecific but can be seen in the setting of chronic small vessel ischemic disease. Small focus of gliosis in the right diamond radiata likely represent sequela of a chronic lacunar infarct. The major flow voids are within normal limits. The pituitary gland is within normal limits for patient age. Incidentally noted small arachnoid cyst at the right posteroinferior aspect of the cerebellum. The calvarium is unremarkable. The orbits are unremarkable. The paranasal sinuses are well aerated. The mastoid air cells are well aerated. THIS IS AN ELECTRONICALLY VERIFIED FINAL REPORT 01/12/2025 10:13 AM - Electronically signed by Atul Mena M.D. MM: MM Report ID: [id number] Reading Location: [id number] Procedure Note Atul Mena MD - 01/12/2025 EXAM DESCRIPTION: MRI BRAIN W/O CONTRAST REASON FOR STUDY: Admitted 01/10/25 with c/o left arm and leg numbness and weakness onset day of admit TECHNIQUE: Multiplanar imaging includes non-contrasted T1, T2, FLAIR, and diffusion with ADC map sequences. Additional sequence(s) sensitive to blood products. Images stored on PACS. COMPARISON: CTA of the head and neck 12/15/2019 FINDINGS: No acute infarction. No evidence of acute or chronic hemorrhage identified. No mass effect, mass or midline shift. There is mild diffuse parenchymal volume loss. The posterior aspect of the lateral ventricles are mildly prominent in size which may be developmental . Scattered mild white matter T2/FLAIR hyperintensity in the periventricular and subcortical white matter is nonspecific but can be seen in the setting of chronic small vessel ischemic disease. Small focus of gliosis in the right diamond radiata likely represent sequela of a chronic lacunar infarct. The major flow voids are within normal limits. The pituitary gland is within normal limits for patient age. Incidentally noted small arachnoid cyst at the right posteroinferior aspect of the cerebellum. The calvarium is unremarkable. The orbits are unremarkable. The paranasal sinuses are well aerated. The mastoid air cells are well aerated. THIS IS AN ELECTRONICALLY VERIFIED FINAL REPORT 01/12/2025 10:13 AM - Electronically signed by Atul Mena M.D. MM: MM Report ID: [id number] Reading Location: [id number] IMPRESSION: No acute infarction. us Yissel Iniguez APRN, COST REDUCTION ENGINEER IMG MR ORDERABLES Final R esult * ADULT TRANS THORACIC ECHO 2D COMPLETE (01/12/2025 9:02 AM CDT) AV Peak Grad mmHg 8.64 mmHg RESULTING AGENCY Mean Aortic Valve Gradient (MAVG) 4 mmHg RESULTING AGENCY LV end abiel diam cm 4.8 cm RESULTING AGENCY LV end sys diam cm 3.3 cm RESULTING AGENCY Aortic Root Diam cm 3.4 cm RESULTING AGENCY LA vol index ml/m2 19 ml/m2 RESULTING AGENCY LVOT Peak Cain m/sec 0.951 m/sec RESULTING AGENCY AV Peak Cain m/sec 1.47 m/sec RESULTING AGENCY MV Mean Grad mmHg 1 mmHg RESULTING AGENCY MVA by PHT cm2 2.59 cm2 RESUL TING AGENCY E/A Ratio 0.85 RESULTING AGENCY E/E' 10 RESULTING AGENCY AV Area (VTI) cm2 2.27 cm2 RESULTING AGENCY SEPTUM DIASTOLIC CM 1.4 cm RESULTING AGENCY PW DIASTOLIC CM 1.7 cm RESU LTING AGENCY LA VOLUME 42.9 ml RESULTING AGENCY LV EF(estimated)% 58 RESULTING AGENCY Anatomical Region Laterality Modality CARDIO N/A Ultrasound Narrative 01/12/2025 11:06 AM CDT Transthoracic Echocardiography Report (TTE) Patient name DILIP Arzate JR. OkeefeO.B. 1970 Patient ID (UPI) [id number] Indications: Stroke. Study Date01/12/2025 Technical quality: Poor visualization Limitation Reason: COPD/Emphysema Type of Study: TTE procedure: Adult Trans Thoracic Echo 2D Complete. Priority:RoutineHR: 74 bpmBP: 148/74 mmHg Conclusions Summary The left ventricle is normal in size. LV function is normal. There are no regional wall motion abnormalities. Moderate concentric left ventricular hypertrophy is present. LV EF of 55-60%. Grade I diastolic dysfunction. Agitated contrast saline study reveals no obvious right to left shunt. Findings Mitral Valve The mitral valve is normal. There is no evidence of mitral stenosis. There is no significant mitral regurgitation. Aortic Valve The aortic valve is trileaflet with normal leaflet excursion. There is no evidence of aortic valve stenosis. There is no significant aortic valve insufficiency. Tricuspid Valve The tricuspid valve is normal. There is no evidence of tricuspid stenosis. There is no significant tricuspid regurgitation. Insufficient TR jet to estimate PASP. Pulmonic Valve The pulmonic valve structure appears normal. There is no evidence of pulmonic stenosis. There is no significant pulmonic valve regurgitation. Left Atrium The left atrium size is normal. Left Ventricle The left ventricle is normal in size. LV function is normal. There are no regional wall motion abnormalities. Moderate concentric left ventricular hypertrophy is present. LV EF of 55-60%. Grade I diastolic dysfunction. Right Atrium The right atrium size is normal. Right Ventricle Normal right ventricular cavity size and normal systolic function. Pericardial Effusion The pericardium is normal. There is no pericardial effusion visualized. Miscellaneous Aortic root and proximal ascending aorta are normal in size. Atrial septum appears intact. IVC is normal in size and respiratory response. Aortic arch appears normal. Agitated contrast saline study reveals no obvious right to left shunt. Valves Mitral Valve Area (PHT): 2.59 cm^2 Area (continuity): 3.09 cm^2 Peak E-Wave: 0.69 m/s Mean Velocity: 0.30 m/s Peak A-Wave: 0.81 m/s Mean Gradient: 1 mmHg Peak Gradient: 1.93 mmHg Deceleration Time: 291 msec P1/2t: 85 msec Tissue Doppler E' Velocity: 0.05 m/s E/E':10 E/A Ratio: 0.85 E/Lat E': 10 E/Med E':11.6 Aortic Valve Area (continuity): 2.27 cm^2 Mean Velocity: 0.88 m/s Area (VTI):2.27 cm^2 Mean Gradient: 4 mmHg Peak Velocity: 1.47 m/s AV VTI: 28.3 cm Peak Gradient: 8.64 mmHg Tricuspid Valve Peak E-Wave: 0.43 m/s Peak Gradient: 0.76 mmHg Pulmonic Valve Peak Velocity: 0.85 m/s Mean Velocity: 0.63 m/s Peak Gradient: 2.9 mmHg Mean Gradient: 2 mmHg LVOT Peak Velocity: 0.95 m/s Mean Velocity: 0.6 m/s Peak Gradient: 4 mmHg Mean Gradient: 2 mmHg LVOT Diameter: 2 cm LVOT VTI: 20.5 cm Stroke Volume: 64 ml Stroke Volume Index: 28.83 ml/m^2 Structures Left Ventricle Diastolic Dimension: 4.8 cm Systolic Dimension: 3.3 cm Septum Diastolic: 1.4 cm Septum Systolic: 1.6 cm PW Diastolic: 1.7 cm PW Systolic: 1.8 cm Diastolic Length: 40.3 cm Systolic Length: 21.6 cm EF Calculated: 56.78% CI: 2.14 l/min*m^2 CO: 4.76 l/min RWT: 0.71 LV EDV: 171 ml FS: 31.25 % LV EDV Index: 77 m^2 LV Length: 8.62 cm LV ESV: 73.9 ml LVOT Diameter: 2 cm LV ESV Index: 33 m^2 Global Longitudinal Strain:-22.2 Right Ventricle RVOT (PLAX) diameter:3.3 cm Tissue Doppler RV S': 17 TAPSE: 3.1 cm Left Atrium LA Systolic Pressure: 14.46 mmHg LA Area: 16.6 cm^2 LA Volume: 42.9 ml LA Index: 19ml/m^2 Right Atrium RA Area: 12.7 cm^2 Great Vessels Aorta Ascending Aorta: 3.5 cm Aorta Root:3.4 cm Ascending Aorta Index:1.58 cm/m^2 Contractility Score LV regional wall motion: (0-Not visualized 1-Normal 1'-Hyperkinesis 2-Hypokinesis 3-Akinesis 4-Dyskinesis 5-Aneurysm) Demographics Age 54 Gender Male Race Height 69.02 in. Weight 236.51 lbs. BMI (BSA) 34.91 kg/m^2 (2.22 m^2) Television Repair Teacher Chester Merlos R Room 231-01 Interpreting Lawrence Referring Physician Tj Physician Procedure Note Tj Bravo MD - 01/12/2025 Transthoracic Echocardiography Report (TTE) Patient name DILIP Arzate JRMathieu Okeefe 1970 Patient ID ([facility]) [id number] Indications: Stroke. Study Date01/12/2025 Technical quality: Poor visualization Limitation Reason: COPD/Emphysema Type of Study: TTE procedure: Adult Trans Thoracic Echo 2D Complete. Priority:RoutineHR: 74 bpmBP: 148/74 mmHg Conclusions Summary The left ventricle is normal in size. LV function is normal. There are no regional wall motion abnormalities. Moderate concentric left ventricular hypertrophy is present. LV EF of 55-60%. Grade I diastolic dysfunction. Agitated contrast saline study reveals no obvious right to left shunt. Findings Mitral Valve The mitral valve is normal. There is no evidence of mitral stenosis. There is no significant mitral regurgitation. Aortic Valve The aortic valve is trileaflet with normal leaflet excursion. There is no evidence of aortic valve stenosis. There is no significant aortic valve insufficiency. Tricuspid Valve The tricuspid valve is normal. There is no evidence of tricuspid stenosis. There is no significant tricuspid regurgitation. Insufficient TR jet to estimate PASP. Pulmonic Valve The pulmonic valve structure appears normal. There is no evidence of pulmonic stenosis. There is no significant pulmonic valve regurgitation. Left Atrium The left atrium size is normal. Left Ventricle The left ventricle is normal in size. LV function is normal. There are no regional wall motion abnormalities. Moderate concentric left ventricular hypertrophy is present. LV EF of 55-60%. Grade I diastolic dysfunction. Right Atrium The right atrium size is normal. Right Ventricle Normal right ventricular cavity size and normal systolic function. Pericardial Effusion The pericardium is normal. There is no pericardial effusion visualized. Miscellaneous Aortic root and proximal ascending aorta are normal in size. Atrial septum appears intact. IVC is normal in size and respiratory response. Aortic arch appears normal. Agitated contrast saline study reveals no obvious right to left shunt. Valves Mitral Valve Area (PHT): 2.59 cm^2 Area (continuity): 3.09 cm^2 Peak E-Wave: 0.69 m/s Mean Velocity: 0.30 m/s Peak A-Wave: 0.81 m/s Mean Gradient: 1 mmHg Peak Gradient: 1.93 mmHg Deceleration Time: 291 msec P1/2t: 85 msec Tissue Doppler E' Velocity: 0.05 m/s E/E':10 E/A Ratio: 0.85 E/Lat E': 10 E/Med E':11.6 Aortic Valve Area (continuity): 2.27 cm^2 Mean Velocity: 0.88 m/s Area (VTI):2.27 cm^2 Mean Gradient: 4 mmHg Peak Velocity: 1.47 m/s AV VTI: 28.3 cm Peak Gradient: 8.64 mmHg Tricuspid Valve Peak E-Wave: 0.43 m/s Peak Gradient: 0.76 mmHg Pulmonic Valve Peak Velocity: 0.85 m/s Mean Velocity: 0.63 m/s Peak Gradient: 2.9 mmHg Mean Gradient: 2 mmHg LVOT Peak Velocity: 0.95 m/s Mean Velocity: 0.6 m/s Peak Gradient: 4 mmHg Mean Gradient: 2 mmHg LVOT Diameter: 2 cm LVOT VTI: 20.5 cm Stroke Volume: 64 ml Stroke Volume Index: 28.83 ml/m^2 Structures Left Ventricle Diastolic Dimension: 4.8 cm Systolic Dimension: 3.3 cm Septum Diastolic: 1.4 cm Septum Systolic: 1.6 cm PW Diastolic: 1.7 cm PW Systolic: 1.8 cm Diastolic Length: 40.3 cm Systolic Length: 21.6 cm EF Calculated: 56.78% CI: 2.14 l/min*m^2 CO: 4.76 l/min RWT: 0.71 LV EDV: 171 ml FS: 31.25 % LV EDV Index: 77 m^2 LV Length: 8.62 cm LV ESV: 73.9 ml LVOT Diameter: 2 cm LV ESV Index: 33 m^2 Global Longitudinal Strain:-22.2 Right Ventricle RVOT (PLAX) diameter:3.3 cm Tissue Doppler RV S': 17 TAPSE: 3.1 cm Left Atrium LA Systolic Pressure: 14.46 mmHg LA Area: 16.6 cm^2 LA Volume: 42.9 ml LA Index: 19ml/m^2 Right Atrium RA Area: 12.7 cm^2 Great Vessels Aorta Ascending Aorta: 3.5 cm Aorta Root:3.4 cm Ascending Aorta Index:1.58 cm/m^2 Contractility Score LV regional wall motion: (0-Not visualized 1-Normal 1'-Hyperkinesis 2-Hypokinesis 3-Akinesis 4-Dyskinesis 5-Aneurysm) Demographics Age 54 Gender Male Race Height 69.02 in. Weight 236.51 lbs. BMI (BSA) 34.91 kg/m^2 (2.22 m^2) Television Repair Teacher Chester Merlos R Room 231-01 Interpreting Bravo Referring Physician Tj Physician us Yissel Iniguez APRN, CNP IMG ECHO ORDERABLES Edite d Result - Final * (ABNORMAL) CBC with Auto Differential (01/12/2025 4:44 AM CDT) Only the most recent of3 resultswithin the time period is included. WBC 10.97 4.00 - 12.00 10(3)/mcL 01/12/2025 5:21 AM CDT [facility] RBC 4.58 4.40 - 5.80 10(6)/mcL 01/12/2025 5:21 AM CDT [facility] HEMOGLOBIN (HGB) 14.9 13.0 - 16.5 g/dL 01/12/2025 5:21 AM CDT [facility] HEMATOCRIT (HCT) 42.7 38.0 - 50.0 % 01/12/2025 5:21 AM CDT [facility] MCV 93.2 82.0 - 96.0 fL 01/12/2025 5:21 AM CDT [facility] MCH 32.5(H) 26.0 - 32.0 pg 01/12/2025 5:21 AM CDT [facility] MCHC 34.9 31.0 - 36.0 g/dL 01/12/2025 5:21 AM CDT [facility] PLATELET COUNT 218 140 - 440 10(3)/mcL 01/12/2025 5:21 AM CDT [facility] RDW 13.3 11.8 - 15.5 % 01/12/2025 5:21 AM CDT [facility] MPV 10.7 8.0 - 12.6 fL 01/12/2025 5:21 AM CDT [facility] NEUTROPHILS 66.1 40.0 - 68.0 % 01/12/2025 5:21 AM CDT [facility] LYMPHOCYTES 25.3 19.0 - 49.0 % 01/12/2025 5:21 AM CDT [facility] MONOCYTES 3.7 3.0 - 13.0 % 01/12/2025 5:21 AM CDT [facility] EOSINOPHILS 3.3 0.0 - 8.0 % 01/12/2025 5:21 AM CDT [facility] BASOPHILS 1.1(H) 0.0 - 1.0 % 01/12/2025 5:21 AM CDT [facility] IMMATURE GRANULOCYTE 0.5(H) 0.0 - 0.4 % 01/12/2025 5:21 AM CDT [facility] Comment:Immature Granulocyte s includes Metamyelocytes, Myelocytes, and Promyelocytes. ABSOLUTE NEUTROPHILS 7.25(H) 1.40 - 5.30 10(3)/mcL 01/12/2025 5:21 AM CDT [facility] ABSOLUTE LYMPHOCYTES 2.77 0.90 - 3.30 10(3)/mcL 01/12/2025 5:21 AM CDT [facility] ABSOLUTE MONOCYTES 0.41 0.10 - 0.90 10(3)/mcL 01/12/2025 5:21 AM CDT [facility] ABSOLUTE EOSINOPHIL 0.36 0.00 - 0.50 10(3)/mcL 01/12/2025 5:21 AM CDT [facility] ABSOLUTE BASOPHILS 0.12(H) 0.00 - 0.10 10(3)/mcL 01/12/2025 5:21 AM CDT [facility] ABSOLUTE IMMATURE GRANULOCYTE 0.06(H) 0.00 - 0.03 10 (3) mcL. 01/12/2025 5:21 AM CDT [facility] NRBC PER 100 WBC 0 01/13/20 5:21 AM CDT [facility] Blood Venipuncture / Unknown 01/12/2025 4:44 AM CDT 01/12/2025 5:12 AM CDT us Yissel Iniguez STACKER OPERATOR, COST REDUCTION ENGINEER HEMATOLOGY ORDERABLES Fin al Result [facility] [place] [address] * (ABNORMAL) BMP with Ca, Total (01/12/2025 4:44 AM CDT) Only the most recent of2 resultswithin the time period is included. SODIUM 139 136 - 145 mmol/L 01/12/2025 5:43 AM CDT [facility] POTASSIUM 3.3(L) 3.5 - 5.1 mmol/L 01/12/2025 5:43 AM CDT [facility] CHLORIDE 106 98 - 107 mmol/L 01/12/2025 5:43 AM CDT [facility] CO2, VENOUS 23 22 - 30 mmol/L 01/12/2025 5:43 AM CDT [facility] ANION GAP 13.3 <18.0 mmol/L 01/12/2025 5:43 AM CDT [facility] GLUCOSE 285(H) 70 - 99 mg/dL 01/12/2025 5:43 AM CDT [facility] BUN 14 8 - 26 mg/dL 01/12/2025 5:43 AM CDT [facility] CREATININE, BLOOD 1.31(H) 0.70 - 1.30 mg/dL 01/12/2025 5:43 AM CDT [facility] BUN/CREATININE RATIO 11(L) 12 - 20 ratio 01/12/2025 5:43 AM CDT [facility] CALCIUM 9.2 8.7 - 10.5 mg/dL 01/12/2025 5:43 AM CDT [facility] GFR, ESTIMATED >60 >=60 01/12/2025 5:43 AM CDT [facility] Comment: Creatinine Clearance is the preferred criteria for selecting drug dose adjustments in renally impaired patients. The GFR is provided as additional pertinent clinical information. GFR is reported in mL/min/1.73 sq m. Calculation based on the Chronic Kidney Disease Epidemiology Collaboration (CKD- EPI) equation refit without adjustment for race. GFR, EST. >60 >=60 025 5:43 AM CDT [facility] GFR, EST. NONAFRICAN 57(L) >=60 01/12/2025 5:43 AM CDT [facility] Blood Venipuncture / Unknown 01/12/2025 4:44 AM CDT 01/12/2025 5:10 AM CDT us Yissel Iniguez STACKER OPERATOR, COST REDUCTION ENGINEER CHEMISTRY ORDERABLES Becky l Result [facility] [place] [address] * RHYTHM STRIP (01/12/2025 12:00 AM CDT) Only the most recent of5 resultswithin the time period is included. 01/12/2025 us Provider Scan IMG ECG ORDERABLES Final Result RESULTING AGENCY * (ABNORMAL) Lipid Panel (01/11/2025 4:20 AM CDT) CHOLESTEROL 149 <200 mg/dL 01/11/2025 5:16 AM CDT [facility] TRIGLYCERIDES 371(H) <150 mg/dL 01/11/2025 5:16 AM CDT [facility] HDL CHOLESTEROL 32(L) >40 mg/dL 5:16 AM CDT [facility] LDL 43 <130 mg/dL 01/11/2025 5:16 AM CDT [facility] VLDL 74(H) 10 - 50 mg/dL 01/11/2025 5:16 AM CDT [facility] CHOL/HDL RATIO 4.7(H) 0.0 - 4.4 01/11/2025 5:16 AM CDT [facility] NON-HDL CHOLESTEROL 117 <130 mg/dL 01/11/2025 5:16 AM CDT [facility] Blood Venipuncture / Unknown 01/11/2025 4:20 AM CDT 01/11/2025 4:49 AM CDT us Yissel Iniguez STACKER OPERATOR, COST REDUCTION ENGINEER CHEMISTRY ORDERABLES Becky l Result Performing Organization Address City/[facility]/ZIP Co de Phone Number [facility] [place] [address] * EKG 12 LEAD (01/10/2025 10:15 PM CDT) Ventricular Rate 77 BPM EXTERNAL EKG Atrial Rate 77 BPM EXTERNAL EKG P-R Interval 180 ms EXTERNAL EKG QRS Duration 104 ms EXTERNAL EKG Q-T Duration 438 ms EXTERNAL EKG QTC CALCULATION 495 ms EXTERNAL EKG P [place] 51 degrees EXTERNAL EKG R [place] 61 degrees EXTERNAL EKG T [place] 42 degrees EXTERNAL EKG 01/10/2025 10:1 5 PM CDT Impressions EXTERNAL EKG - 01/12/2025 9:22 AM CDT Normal sinus rhythm Nonspecific ST abnormality QTcB >= 480 msec Abnormal ECG When compared with ECG of 05-JUN-2021 20:03, No significant change was found ~ Confirmed by TJ BRAVO ([id number]) on 01/12/2025 9:22:30 AM Narrative Procedure Note Tj Bravo MD - 01/12/2025 IMPRESSION: Normal sinus rhythm Nonspecific ST abnormality QTcB >= 480 msec Abnormal ECG When compared with ECG of 05-JUN-2021 20:03, No significant change was found ~ Confirmed by TJ BRAVO ([id number]) on 01/12/2025 9:22:30 AM us Yissel Iniguez APRN, COST REDUCTION ENGINEER IMG ECG ORDERABLES Final Result EXTERNAL EKG * CT REFERENCE IMAGES FOR IMAGE IMPORT (01/10/2025 8:50 PM CDT) us Not On File Provider IMG CT ORDERABLES Final Res ult * NT-proBNP (01/10/2025 8:13 PM CDT) NT PROBNP 32.2 <450.0 pg/mL 01/10/2025 10:30 PM CDT [facility] Comment: AGE pg/mL INTERPRETATION All <300 Negative: HF (Heart Failure) unlikely 18 to <50 >=300.0 to <450.0 Indeterminate. Consider other causes of NT-proBNP elevation 50 to 75 >=300.0 to <900.0 Indeterminate. Consider other causes of NT-proBNP elevation >75 >=300.0 to <1800.0 Indeterminate. Consider other causes of NT-proBNP elevation 18 to <50 >=450.0 Positive: HF likely 50 to 75 >=900.0 Positive: HF likely >75 >=1800.0 Positive: HF likely Total protein levels at or above 12.6 mg/dl may falsely decrease NT-proBNP values. Blood Venipuncture / Unknown 01/10/2025 8:13 PM CDT 01/10/2025 8:22 PM CDT us Yissel Iniguez APRN, CNP CHEMISTRY ORDERABLES Becky billy Result [facility] [place] [address] * (ABNORMAL) CMP (Comprehensive Metabolic Panel) (01/10/2025 8:13 PM CDT) Pathologist [facility] SODIUM 136 136 - 145 mmol/L 01/10/2025 8:43 PM CDT [facility] POTASSIUM 2.9(L) 3.5 - 5.1 mmol/L 01/10/2025 8:43 PM CDT [facility] CHLORIDE 101 98 - 107 mmol/L 01/10/2025 8:43 PM CDT [facility] CO2, VENOUS 23 22 - 30 mmol/L 01/10/2025 8:43 PM CDT [facility] ANION GAP 14.9 <18.0 mmol/L 01/10/2025 8:43 PM CDT [facility] GLUCOSE 319(H) 70 - 99 mg/dL 01/10/2025 8:43 PM CDT [facility] BUN 13 8 - 26 mg/dL 01/10/2025 8:43 PM CDT [facility] CREATININE, BLOOD 1.41(H) 0.70 - 1.30 mg/dL 01/10/2025 8:43 PM CDT [facility] BUN/CREATININE RATIO 9(L) 12 - 20 ratio 01/10/2025 8:43 PM CDT [facility] TOTAL PROTEIN 7.2 6.0 - 8.0 g/dL 01/10/2025 8:43 PM CDT [facility] ALBUMIN 4.5 3.5 - 5.0 g/dL 01/10/2025 8:43 PM CDT [facility] A/G RATIO 1.7 1.0 - 2.2 01/10/2025 8:43 PM CDT [facility] CALCIUM 9.6 8.7 - 10.5 mg/dL 01/10/2025 8:43 PM CDT [facility] T BILI 0.5 0.2 - 1.2 mg/dL 01/10/2025 8:43 PM CDT [facility] SGOT (AST) 20 <43 U/L 01/10/2025 8:43 PM CDT [facility] SGPT (ALT) 40 <56 U/L 01/10/2025 8:43 PM CDT [facility] ALKALINE PHOSPHATASE 142 40 - 150 U/L 01/10/2025 8:43 PM CDT [facility] GFR, ESTIMATED 59(L) >=60 01/10/2025 8:43 PM CDT [facility] Comment: Creatinine Clearance is the preferred criteria for selecting drug dose adjustments in renally impaired patients. The GFR is provided as additional pertinent clinical information. GFR is reported in mL/min/1.73 sq m. Calculation based on the Chronic Kidney Disease Epidemiology Collaboration (CKD- EPI) equation refit without adjustment for race. GFR, EST. >60 >=60 025 8:43 PM CDT [facility] GFR, EST. NONAFRICAN 52(L) >=60 01/10/2025 8:43 PM CDT [facility] Blood Venipuncture / Unknown 01/10/2025 8:13 PM CDT 01/10/2025 8:22 PM CDT us Yissel Iniguez STACKER OPERATOR, COST REDUCTION ENGINEER CHEMISTRY ORDERABLES Becky l Result [facility] [place] [address] * (ABNORMAL) Hemoglobin A1C w/ Estimated Glucose (01/10/2025 8:13 PM CDT) HGB-A1C 12.4(H) 4.0 - 6.0 % 01/10/2025 8:41 PM CDT [facility] Est Average Glucose 309.2 mg/dL 01/10/2025 8:41 PM CDT [facility] Blood Venipuncture / Unknown 01/10/2025 8:13 PM CDT 01/10/2025 8:22 PM CDT Narrative [facility] - 01/10/2025 8:41 PM CDT HEMOGLOBIN A1C: DIABETIC PATIENTS: WELL-CONTROLLED: 6.2 - 7.0 INTERMEDIATE WELL-CONTROLLED: 7.0 - 9.0 POORLY-CONTROLLED: >9.0 Specimens containing greater than 5% of Hemoglobin F may result in lower than expected % HbA1C results. us Yissel Iniguez STACKER OPERATOR, COST REDUCTION ENGINEER CHEMISTRY ORDERABLES Becky l Result Performing Organization Address City/[facility] de Phone Number [facility] [place] [address] * EKG SCAN (01/10/2025 12:00 AM CDT) 01/10/2025 us Provider Scan IMG ECG ORDERABLES Final Result Performing Organization Address City/[facility] Co de Phone Number RESULTING AGENCY documented in this encounter Visit Diagnoses Diagnosis Left sided numbness- Primary Disturbance of skin sensation Asthma Unspecified asthma TIA (transient ischemic attack) Unspecified transient cerebral ischemia Type 2 diabetes mellitus treated without insulin ([facility]) Left hemiparesis ([facility]) Hemiplegia, unspecified, affecting unspecified side Type 2 diabetes mellitus treated without insulin ([facility]) Personal history of tobacco use, presenting hazards to health Peripheral polyneuropathy Unspecified hereditary and idiopathic peripheral neuropathy Hypertension Unspecified essential hypertension Hyperlipidemia Other and unspecified hyperlipidemia GERD (gastroesophageal reflux disease) Esophageal reflux Lupus anticoagulant disorder ([facility]) Primary hypercoagulable state Obesity (BMI 30-39.9) Obesity, unspecified Bipolar 1 disorder, mixed, mild (HCC) Bipolar I disorder, most recent episode (or current) mixed, mild COPD (chronic obstructive pulmonary disease) (HCC) Chronic airway obstruction, not elsewhere classified Chronic pain syndrome Kidney disease, chronic, stage III (GFR 30-59 ml/min) (HCC) Chronic kidney disease, Stage III (moderate) MAK (obstructive sleep apnea) Obstructive sleep apnea (adult) (pediatric) History of pulmonary embolus (PE) Personal history of pulmonary embolism DVT (deep venous thrombosis) (HCC) Acute venous embolism and thrombosis of unspecified deep vessels of lower extremity IBS (irritable bowel syndrome) Irritable bowel syndrome documented in this encounter Administered Medications Inactive Administered Medications - up to 3 most recent administrations Medication Order MAR Action Action Date Dose Rate Site 0.9 % sodium chloride solution at 75 mL/hr, Intravenous, CONTINUOUS, Starting on 01/10/25 at 2330, Until 01/11/25 at 1004 New Bag 01/10/2025 11:58 PM CDT 75 mL/hr acetaminophen (TYLENOL) suppository 650 mg 650 mg, Rectal, EVERY 4 HOURS PRN, Starting on 01/10/25 at 1950, Until Sun01/12/25 at 2121, Mild pain or more severe pain if patient requests, Fever, If patient is taking oral intake without complications and both PO/AR orders are active, administer through the oral route. acetaminophen (TYLENOL) tablet 650 mg 650 mg, Oral, EVERY 4 HOURS PRN, Starting on 01/10/25 at 1950, Until Sun01/12/25 at 2121, Mild pain or more severe pain if patient requests, Fever, If patient is taking oral intake without complications and both PO/AR orders are active, administer through the oral route. Given 01/12/2025 7:53 AM CDT 650 mg albuterol (PROVENTIL, VENTOLIN) (2.5 MG/3ML) 0.083% nebulizer solution 2.5 mg 2.5 mg, Nebulization, EVERY 6 HOURS PRN, Starting on 01/10/25 at 2329, Until Sun01/12/25 at 2121, Wheezing, 1. For RTA Severity Level 1 2. Discontinue all albuterol and ipratropium ORDERS AND ORDER SET if assessment results for 2 consecutive days has been a level 1 and no PRN treatments have been administered in the same time period. 3. A new physician order is required to resume order set once discontinued.Indications:Asthma apixaban (ELIQUIS) tablet TABS 5 mg 5 mg, Oral, 2 TIMES DAILY, First dose on [facility] 01/10/25 at 2200, Until DiscontinuedIndications:History of Thromboembolic Disease Given 01/12/2025 7:53 AM CDT 5 mg Given 01/11/2025 9:41 PM CDT 5 mg Given 01/11/2025 8:34 AM CDT 5 mg ARIPiprazole (ABILIFY) tablet 25 mg 25 mg, Oral, NIGHTLY, First dose on [facility] 01/10/25 at 2200, Until Discontinued Given 01/11/2025 9:48 PM CDT 25 mg Given 01/10/2025 10:33 PM CDT 15 mg aspirin chewable tablet 81 mg 81 mg, Oral, DAILY, First dose on [facility] 01/10/25 at 2030, Until Discontinued Given 01/12/2025 7:53 AM CDT 81 mg Given 01/11/2025 8:34 AM CDT 81 mg Given 01/10/2025 9:05 PM CDT 81 mg aspirin suppository 300 mg 300 mg, Rectal, DAILY, First dose on [facility] 01/10/25 at 2030, Until Discontinued atorvastatin (LIPITOR) tablet 80 mg 80 mg, Oral, DAILY, First dose on [facility] 01/11/25 at 0900, Until Discontinued Given 01/12/2025 7:53 AM CDT 80 mg Given 01/11/2025 8:34 AM CDT 80 mg buPROPion SR (WELLBUTRIN SR) SR tablet 150 mg 150 mg, Oral, 2 TIMES DAILY, First dose on [facility] 01/11/25 at 0900, Until Discontinued, Do not crush Given 01/12/2025 7:53 AM CDT 150 mg Given 01/11/2025 9:41 PM CDT 150 mg Given 01/11/2025 8:34 AM CDT 150 mg calcium carbonate (TUMS) chewable tablet 1,000 mg 1,000 mg, Oral, EVERY 8 HOURS PRN, Starting on 01/10/25 at 1947, Until Sun01/12/25 at 2121, Heartburn, Indigestion dextrose 50 % solution 12.5 g 12.5 g, Intravenous, PRN, Starting on 01/10/25 at 2118, Until Sun01/12/25 at 2121, Low blood sugar, If IV patent in patient with blood glucose of 50 or less, or Unconscious, Conscious but NPO or Unable to Swallow regardless of blood glucose, administer 1 dose of dextrose 50% solution. gabapentin (NEURONTIN) capsule 600 mg 600 mg, Oral, 3 TIMES DAILY, First dose on Sun01/10/25 at 2200, Until Discontinued Given 01/12/2025 2:03 PM CDT 600 mg Given 01/12/2025 7:53 AM CDT 600 mg Given 01/11/2025 9:40 PM CDT 600 mg glucose (GLUTOSE) 40 % gel GEL 15 g 15 g, Oral, PRN, Starting on Sun01/10/25 at 2119, Until Sun01/12/25 at 2121, Low blood sugar, Dose is based on glucose. 37.5 g tube = 15 GRAMS of GLUCOSE. For 15 GRAM GLUCOSE dose, give entire 37.5 g size tube. Administer 1 dose if patient is unable to take food, but conscious and able to swallow. hydrALAZINE (APRESOLINE) injection 10 mg 10 mg, Intravenous, EVERY 1 HOUR PRN, Starting on Sun01/10/25 at 1947, Until Sun01/12/25 at 2121, Heart rate less than 60, SBP greater than 220 and DBP greater than 120, Administer 10 mg every hour IVP over 2 minutes for SBP greater than 220 and DBP greater than 120. May repeat initial dose in 10 minutes x 1. If BP remains greater than 220, and DBP greater than 120 or PRN required hourly x2 consecutive hours, notify provider insulin glargine (LANTUS) 100 UNIT/ML injection 21 Units 21 Units (rounded from 21.44 Units = 0.2 Units/kg 107.2 kg), Subcutaneous, ONCE, 1 dose, On 01/11/25 at 1030 Given 01/11/2025 11:53 AM CDT 21 Units Left Abdomen insulin glargine (LANTUS) 100 UNIT/ML injection 21 Units 21 Units (rounded from 21.44 Units = 0.2 Units/kg 107.2 kg), Subcutaneous, NIGHTLY, First dose (after last reorder) on Sun01/12/25 at 2200, Until Discontinued insulin glargine (LANTUS) 100 UNIT/ML injection 5 Units 5 Units, Subcutaneous, ONCE, 1 dose, On Sun01/11/25 at 0100 Given 01/11/2025 12:35 AM CDT 5 Units Right Abdomen insulin lispro (HumaLOG) 100 UNIT/ML injection 2-6 Units 2-6 Units, Subcutaneous, NIGHTLY, First dose on 01/10/25 at 2200, Until Discontinued, If BS is: 70-200 give no correction Insulin; 201-250 give 2 Units; 251-300 give 3 Units; 301-350 give 4 Units; 351-400 give 5 Units; 401 or greater give 6 units and call physician. Given 01/11/2025 9:41 PM CDT 4 Units Left Lateral Upper A rm insulin lispro (HumaLOG) 100 UNIT/ML injection 3-15 Units 3-15 Units, Subcutaneous, EVERY 6 HOURS SCHEDULED (4 times per day), First dose on 01/10/25 at 2030, Until Discontinued, If BS is: 70-180 give no correction Insulin; 181-200 give 3 Units; 201-250 give 6 Units; 251-300 give 9 Units; 301-350 give 11 Units; 351-400 give 13 Units; Greater than 400 give 15 Units and call physician. Given 01/10/2025 9:04 PM CDT 11 Units Left Lateral Upper A rm insulin lispro (HumaLOG) 100 UNIT/ML injection 3-15 Units 3-15 Units, Subcutaneous, 3 TIMES DAILY AFTER MEALS, First dose on 01/11/25 at 0900, Until Discontinued, If BS is: 70-180 give no correction Insulin; . 181-200 give 3 Unit; 201-250 give 6 Units; 251-300 give 9 Units; 301-350 give 11 Units; 351-400 give 13 Units; 401 or greater give 15 units and call physician. Given 01/12/2025 6:08 PM CDT 13 Units Left Lateral Upper A rm Given 01/12/2025 2:11 PM CDT 13 Units Le ft Lateral Upper Arm Given 01/12/2025 10:11 AM CDT 9 Units L eft Lateral Upper Arm insulin lispro (HumaLOG) 100 UNIT/ML injection 7 Units 7 Units, Subcutaneous, ONCE, 1 dose, On 01/11/25 at 0100 Given 01/11/2025 12:35 AM CDT 7 Units Left Abdomen labetalol (NORMODYNE;TRANDATE) injection 10 mg 10 mg, Intravenous, EVERY 4 HOURS PRN, Starting on 01/10/25 at 1947, Until Sun01/12/25 at 2121, Non - Reperfusion. Administer 10 mg every hour IVP over 2 minutes for SBP greater than 220 DBP greater than 120. May repeat initial dose in 10 minutes x 1. If BP remains greater than 220, DBP greater than 120 or PRN required hourly x2 consecutive hours, notify provider, Heart rate greater than 60, SBP greater than 220 and DBP greater than 120. loratadine (CLARITIN) tablet 10 mg 10 mg, Oral, DAILY, First dose on 01/11/25 at 0900, Until Discontinued Given 01/12/2025 7:53 AM CDT 10 mg Given 01/11/2025 8:34 AM CDT 10 mg melatonin tablet 6 mg 6 mg, Oral, NIGHTLY PRN, Starting on Sun01/10/25 at 1946, Until Sun01/12/25 at 2121, Other, Sleep montelukast (SINGULAIR) tablet 10 mg 10 mg, Oral, EVERY EVENING, First dose on 01/11/25 at 1800, Until DiscontinuedIndications:Asthma Given 01/12/2025 6:09 PM CDT 10 mg Given 01/11/2025 4:21 PM CDT 10 mg nicotine (NICODERM CQ) 21 MG/24HR patch 1 Patch 1 Patch, Transdermal, DAILY PRN, Starting on Sun01/10/25 at 1946, Until Sun01/12/25 at 2121, Administer over 24 Hours, Other, Nicotine dependency, For disposal of medication AND containers- black bin ondansetron (ZOFRAN) injection 4 mg 4 mg, Intravenous, EVERY 6 HOURS PRN, Starting on Sun01/10/25 at 1946, Until Sun01/12/25 at 2121, 1. First Line Antiemetic. 2. Use Injection only if patient unable to tolerate oral medications., Nausea - 1st line ondansetron (ZOFRAN-ODT) disintegrating tablet 4 mg 4 mg, Oral, EVERY 6 HOURS PRN, Starting on 01/10/25 at 1946, Until Sun01/12/25 at 2121, Nausea - 1st line, 1. First Line Antiemetic. 2. Use PO form unless unable to tolerate PO medications, then use Injection OXcarbazepine (TRILEPTAL) tablet 600 mg 600 mg, Oral, 2 TIMES DAILY, First dose on Sun01/10/25 at 2200, Until Discontinued Given 01/12/2025 7:53 AM CDT 600 mg Given 01/11/2025 9:42 PM CDT 600 mg Given 01/11/2025 8:34 AM CDT 600 mg oxyCODONE-acetaminophen (PERCOCET) 5-325 MG per tablet 1 Tablet 1 Tablet, Oral, 3 TIMES DAILY PRN, Starting on 01/10/25 at 2109, Until Sun01/12/25 at 2121, Moderate pain or more severe pain if patient requests, Maximum dose of acetaminophen is 4000 mg from all sources in 24 hours. If pain not effectively managed, then contact provider to discuss possibly 1) adding scheduled opioid dosing or non-opioid pain treatments, 2) increasing dosage, or 3) changing to SYSTEMS CONSULTANT. Given 01/12/2025 2:02 PM CDT 1 Tablet Given 01/12/2025 5:03 AM CDT 1 Tablet Given 01/11/2025 3:04 PM CDT 1 Tablet pantoprazole (PROTONIX) injection 40 mg 40 mg, Intravenous, DAILY, First dose on 01/10/25 at 2200, Until Discontinued, Administer over 3 Minutes, Indications: Gastroesophageal Reflux DiseaseIndications:Gastroesophageal Reflux Disease Given 01/12/2025 7:54 AM CDT 40 mg Given 01/11/2025 8:33 AM CDT 40 mg Given 01/10/2025 10:33 PM CDT 40 mg polyethylene glycol (GLYCOLAX, MIRALAX) packet 17 g 17 g, Oral, 2 TIMES DAILY PRN, Starting on Sun01/10/25 at 1947, Until Sun01/12/25 at 2121, Constipation - 1st line, Dilute dose in 120 - 240 mL of beverage.Hold for loose stools (loose, liquid, mucoid, soft, watery stool that takes the shape of the container) or greater than 2 moderate or larger stools in 24hrsIndications:Constipation polyethylene glycol (GLYCOLAX, MIRALAX) packet 17 g 17 g, Oral, DAILY, First dose on 01/11/25 at 0900, Until Discontinued, Dilute dose in 120 - 240 mL of beverage.Hold for loose stools (loose, liquid, mucoid, soft, watery stool that takes the shape of the container) or greater than 2 moderate or larger stools in 24hrs potassium chloride IVPB 20 mEq 100 mL 20 mEq, Intravenous, ONCE, 1 dose, On 01/10/25 at 2330, Administer over 2 Hours, Infuse 20 mEq over 2 hours New Bag 01/10/2025 11:58 PM CDT 20 mEq potassium chloride SA (KLORCON M) tablet 40 mEq 40 mEq, Oral, ONCE, 1 dose, On 01/10/25 at 2300, Do Not Crush Given 01/10/2025 11:58 PM CDT 40 mEq rOPINIRole (REQUIP) tablet 1 mg 1 mg, Oral, DAILY, First dose on 01/11/25 at 0900, Until Discontinued Given 01/11/2025 8:34 AM CDT 1 mg rOPINIRole (REQUIP) tablet 1 mg 1 mg, Oral, NIGHTLY, First dose (after last modification) on 01/12/25 at 2200, Until Discontinued senna (SENOKOT) 8.6 mg 8.6 mg (1 Tablet), Oral, 2 TIMES DAILY PRN, Starting on 01/10/25 at 1947, Until Sun01/12/25 at 2122, Constipation - 2nd lineIndications:Constipation venlafaxine (EFFEXOR-XR) XR capsule 150 mg 150 mg, Oral, DAILY, First dose on 01/11/25 at 0900, Until Discontinued, Do Not Crush Given 01/12/2025 7:53 AM CDT 150 mg Given 01/11/2025 8:34 AM CDT 150 mg documented in this encounter Active and Recently Administered Medications Times are shown in CDT. Scheduled Medication Order 01/10/2025 01/11/2025 01/12/2025 apixaban (ELIQUIS) tablet TABS 5 mg 5 mg, Oral, 2 TIMES DAILY, First dose on 01/10/25 at 2200, Until Discontinued 2232 (Given - Provider: Bola Webber RN) 0848 (Given - Provider: Sofy Lopez RN)120 (Given - Provider: Heather Nation RN) 0753 (Given - Provider: Jeanne Osullivan RN) ARIPiprazole (ABILIFY) tablet 25 mg 25 mg, Oral, NIGHTLY, First dose on 01/10/25 at 2200, Until Discontinued 2232 (Given - Provider: Bola Webber RN) 2147 (Given - Provider: Heather Nation RN) aspirin chewable tablet 81 mg(Linked Group 1) 81 mg, Oral, DAILY, First dose on 01/10/25 at 2030, Until Discontinued 2104 (Given - Provider: Bola Webber RN) 0834 (Given - Provider: Sofy Lopez RN) 0753 (Given - Provider: Jeanne Osullivan, RAVINDER) aspirin suppository 300 mg(Linked Group 1) 300 mg, Rectal, DAILY, First dose on 01/10/25 at 2030, Until Discontinued 2104 (See Alternative - Provider: Bola Webber RN) 0834 (See Alternative - Provider: Sofy Lopez RN) 0753 (See Alternative - Provider: Jeanne Osullivan RN) atorvastatin (LIPITOR) tablet 80 mg 80 mg, Oral, DAILY, First dose on 01/11/25 at 0900, Until Discontinued 833 (Given - Provider: Sofy Lopez RN) 0753 (Given - Provider: Jeanne Osullivan RN) buPROPion SR (WELLBUTRIN SR) SR tablet 150 mg 150 mg, Oral, 2 TIMES DAILY, First dose on 01/11/25 at 0900, Until Discontinued, Do not crush 0834 (Given - Provider: Sofy Lopez RN)2140 (Given - Provider: Heather Nation RN) 0753 (Given - Provider: Jeanne Osullivan, RAVINDER) gabapentin (NEURONTIN) capsule 600 mg 600 mg, Oral, 3 TIMES DAILY, First dose on 01/10/25 at 2200, Until Discontinued 2232 (Given - Provider: Bola Webber RN) 0834 (Given - Provider: Sofy Lopez RN)1153 (Given - Provider: Sofy Lopez RN)214 (Given - Provider: Heather Nation RN) 0753 (Given - Provider: Jeanne Osullivan, RAVINDER)1403 (Given - Provider: Jeanne Osullivan, RAVINDER) insulin glargine (LANTUS) 100 UNIT/ML injection 21 Units (COMPLETED) 21 Units (rounded from 21.44 Units = 0.2 Units/kg 107.2 kg), Subcutaneous, ONCE, 1 dose, On 01/11/25 at 1030 1153 (Given - Provider: Sofy Lopez RN) insulin glargine (LANTUS) 100 UNIT/ML injection 21 Units 21 Units (rounded from 21.44 Units = 0.2 Units/kg 107.2 kg), Subcutaneous, NIGHTLY, First dose (after last reorder) on 01/12/25 at 2200, Until Discontinued insulin glargine (LANTUS) 100 UNIT/ML injection 5 Units (COMPLETED) 5 Units, Subcutaneous, ONCE, 1 dose, On 01/11/25 at 0100 0035 (Given - Provider: Bola Webber, RAVINDER) insulin lispro (HumaLOG) 100 UNIT/ML injection 2-6 Units 2-6 Units, Subcutaneous, NIGHTLY, First dose on 01/10/25 at 2200, Until Discontinued, If BS is: 70-200 give no correction Insulin; 201-250 give 2 Units; 251-300 give 3 Units; 301-350 give 4 Units; 351-400 give 5 Units; 401 or greater give 6 units and call physician. 2199 (Not Given - Provider: Bola Webber, RAVINDER - Reason: Other - see comment - Comment: order changed and given already) 2140 (Given - Provider: Heather Nation RN) insulin lispro (HumaLOG) 100 UNIT/ML injection 3-15 Units (CANCELED) 3-15 Units, Subcutaneous, EVERY 6 HOURS SCHEDULED (4 times per day), First dose on 01/10/25 at 2030, Until Discontinued, If BS is: 70-180 give no correction Insulin; 181-200 give 3 Units; 201-250 give 6 Units; 251-300 give 9 Units; 301-350 give 11 Units; 351-400 give 13 Units; Greater than 400 give 15 Units and call physician. 2103 (Given - Provider: Bola Webber, RAVINDER) insulin lispro (HumaLOG) 100 UNIT/ML injection 3-15 Units 3-15 Units, Subcutaneous, 3 TIMES DAILY AFTER MEALS, First dose on 01/11/25 at 0900, Until Discontinued, If BS is: 70-180 give no correction Insulin; . 181-200 give 3 Unit; 201-250 give 6 Units; 251-300 give 9 Units; 301-350 give 11 Units; 351-400 give 13 Units; 401 or greater give 15 units and call physician. 0834 (Given - Provider: Sofy Lopez, RAVINDER)1153 (Given - Provider: Sofy Lopez RN)1621 (Given - Provider: Sofy Lopez RN) 0900 (Not Given - Provider: Jeanne Osullivan RN - Reason: Patient not available)1011 (Given - Provider: Jeanne Osullivan, RAVINDER)1411 (Given - Provider: Jeanne Osullivan, RAVINDER)1808 (Given - Provider: Jeanne Osullivan RN) insulin lispro (HumaLOG) 100 UNIT/ML injection 7 Units (COMPLETED) 7 Units, Subcutaneous, ONCE, 1 dose, On 01/11/25 at 0100 0035 (Given - Provider: Bola Webber RN) lisinopril (PRINIVIL, ZESTRIL) tablet 20 mg 20 mg, Oral, DAILY, First dose on 01/11/25 at 0900, Until Discontinued, On hold since 01/10/2025 at 2114 until manually unheld 2114 (Held By Provider - Provider: Yissel Iniguez APRN, COST REDUCTION ENGINEER - Reason: Other) 0900 (Automatically Held) 0900 (Automatically Held)2121 (Unheld By Provider - Provider: System Auto-Discontinue) loratadine (CLARITIN) tablet 10 mg 10 mg, Oral, DAILY, First dose on 01/11/25 at 0900, Until Discontinued 08 (Given - Provider: Sofy Lopez RN) 0753 (Given - Provider: Jeanne Osullivan RN) metoprolol Succinate (TOPROL-XL) XL tablet 25 mg 25 mg, Oral, DAILY, First dose on 01/11/25 at 0900, Until Discontinued, Do Not Crush, On hold since 01/10/2025 at 2115 until manually unheld 2114 (Held By Provider - Provider: Yissel Iniguez APRN, COST REDUCTION ENGINEER - Reason: Other) 0900 (Automatically Held) 0900 (Automatically Held)2121 (Unheld By Provider - Provider: System Auto-Discontinue) montelukast (SINGULAIR) tablet 10 mg 10 mg, Oral, EVERY EVENING, First dose on 01/11/25 at 1800, Until Discontinued 1620 (Given - Provider: Sofy Lopez RN) 1809 (Given - Provider: Jeanne Osullivan, RAVINDER) OXcarbazepine (TRILEPTAL) tablet 600 mg 600 mg, Oral, 2 TIMES DAILY, First dose on 01/10/25 at 2200, Until Discontinued 2232 (Given - Provider: Bola Webber RN) 0834 (Given - Provider: Sofy Lopez RN)214 (Given - Provider: Heather Nation RN) 0753 (Given - Provider: Jeanne Osullivan, RAVINDER) pantoprazole (PROTONIX) injection 40 mg 40 mg, Intravenous, DAILY, First dose on 01/10/25 at 2200, Until Discontinued, Administer over 3 Minutes, Indications: Gastroesophageal Reflux Disease 2232 (Given - Provider: Bola Webber RN) 0833 (Given - Provider: Sofy Lopez RN) 0754 (Given - Provider: Jeanne Osullivan, RAVINDER) polyethylene glycol (GLYCOLAX, MIRALAX) packet 17 g 17 g, Oral, DAILY, First dose on 01/11/25 at 0900, Until Discontinued, Dilute dose in 120 - 240 mL of beverage.Hold for loose stools (loose, liquid, mucoid, soft, watery stool that takes the shape of the container) or greater than 2 moderate or larger stools in 24hrs 0900 (Not Given - Provider: Sofy Lopez RN - Reason: Patient/family refused) 0812 (Not Given - Provider: Jeanne Osullivan RN - Reason: Other) potassium chloride IVPB 20 mEq 100 mL (COMPLETED) 20 mEq, Intravenous, ONCE, 1 dose, On 01/10/25 at 2330, Administer over 2 Hours, Infuse 20 mEq over 2 hours 2358 (New Bag - Provider: Bola Webber RN) 0158 (Stopped - Provider: Bola Webber RN) potassium chloride SA (KLORCON M) tablet 40 mEq (COMPLETED) 40 mEq, Oral, ONCE, 1 dose, On 01/10/25 at 2300, Do Not Crush 2358 (Given - Provider: Bola Webber, RAVINDER) rOPINIRole (REQUIP) tablet 1 mg (CANCELED) 1 mg, Oral, DAILY, First dose on 01/11/25 at 0900, Until Discontinued 0834 (Given - Provider: Sofy Lopez RN) rOPINIRole (REQUIP) tablet 1 mg 1 mg, Oral, NIGHTLY, First dose (after last modification) on 01/12/25 at 2200, Until Discontinued venlafaxine (EFFEXOR-XR) XR capsule 150 mg 150 mg, Oral, DAILY, First dose on 01/11/25 at 0900, Until Discontinued, Do Not Crush 0834 (Given - Provider: Sofy Lopez RN) 0753 (Given - Provider: Jeanne Osullivan RN) Continuous Medication Order 01/10/2025 01/11/2025 01/12/2025 0.9 % sodium chloride solution (CANCELED) at 75 mL/hr, Intravenous, CONTINUOUS, Starting on 01/10/25 at 2330, Until 01/11/25 at 1004 2358 (New Bag - Provider: Bola Webber RN) 1004 (Stopped - Provider: Sofy Lopez RN) PRN Medication Order 01/10/2025 01/11/2025 01/12/2025 acetaminophen (TYLENOL) suppository 650 mg(Linked Group 2) 650 mg, Rectal, EVERY 4 HOURS PRN, Starting on 01/10/25 at 1950, Until Sun01/12/25 at 2, Mild pain or more severe pain if patient requests, Fever, If patient is taking oral intake without complications and both PO/AR orders are active, administer through the oral route. 0753 (See Alternativ e - Provider: Jeanne Osullivan RN) acetaminophen (TYLENOL) tablet 650 mg(Linked Group 2) 650 mg, Oral, EVERY 4 HOURS PRN, Starting on 01/10/25 at 1950, Until 01/12/25 at 2122, Mild pain or more severe pain if patient requests, Fever, If patient is taking oral intake without complications and both PO/AR orders are active, administer through the oral route. 0753 (Given - Provid er: Jeanne Osullivan RN) albuterol (PROVENTIL, VENTOLIN) (2.5 MG/3ML) 0.083% nebulizer solution 2.5 mg 2.5 mg, Nebulization, EVERY 6 HOURS PRN, Starting on 01/10/25 at 2329, Until Sun01/12/25 at 2121, Wheezing, 1. For RTA Severity Level 1 2. Discontinue all albuterol and ipratropium ORDERS AND ORDER SET if assessment results for 2 consecutive days has been a level 1 and no PRN treatments have been administered in the same time period. 3. A new physician order is required to resume order set once discontinued. calcium carbonate (TUMS) chewable tablet 1,000 mg 1,000 mg, Oral, EVERY 8 HOURS PRN, Starting on 01/10/25 at 1946, Until Sun01/12/25 at 2121, Heartburn, Indigestion dextrose 50 % solution 12.5 g(Linked Group 3) 12.5 g, Intravenous, PRN, Starting on 01/10/25 at 2118, Until Sun01/12/25 at 2121, Low blood sugar, If IV patent in patient with blood glucose of 50 or less, or Unconscious, Conscious but NPO or Unable to Swallow regardless of blood glucose, administer 1 dose of dextrose 50% solution. glucose (GLUTOSE) 40 % gel GEL 15 g(Linked Group 3) 15 g, Oral, PRN, Starting on 01/10/25 at 2118, Until Sun01/12/25 at 2121, Low blood sugar, Dose is based on glucose. 37.5 g tube = 15 GRAMS of GLUCOSE. For 15 GRAM GLUCOSE dose, give entire 37.5 g size tube. Administer 1 dose if patient is unable to take food, but conscious and able to swallow. hydrALAZINE (APRESOLINE) injection 10 mg 10 mg, Intravenous, EVERY 1 HOUR PRN, Starting on 01/10/25 at 1946, Until Sun01/12/25 at 2121, Heart rate less than 60, SBP greater than 220 and DBP greater than 120, Administer 10 mg every hour IVP over 2 minutes for SBP greater than 220 and DBP greater than 120. May repeat initial dose in 10 minutes x 1. If BP remains greater than 220, and DBP greater than 120 or PRN required hourly x2 consecutive hours, notify provider labetalol (NORMODYNE;TRANDATE) injection 10 mg 10 mg, Intravenous, EVERY 4 HOURS PRN, Starting on 01/10/25 at 1946, Until Sun01/12/25 at 2121, Non - Reperfusion. Administer 10 mg every hour IVP over 2 minutes for SBP greater than 220 DBP greater than 120. May repeat initial dose in 10 minutes x 1. If BP remains greater than 220, DBP greater than 120 or PRN required hourly x2 consecutive hours, notify provider, Heart rate greater than 60, SBP greater than 220 and DBP greater than 120. melatonin tablet 6 mg 6 mg, Oral, NIGHTLY PRN, Starting on 01/10/25 at 194, Until Sun01/12/25 at 2121, Other, Sleep nicotine (NICODERM CQ) 21 MG/24HR patch 1 Patch 1 Patch, Transdermal, DAILY PRN, Starting on 01/10/25 at 194, Until Sun01/12/25 at 2121, Administer over 24 Hours, Other, Nicotine dependency, For disposal of medication AND containers- black bin ondansetron (ZOFRAN) injection 4 mg(Linked Group 4) 4 mg, Intravenous, EVERY 6 HOURS PRN, Starting on 01/10/25 at 194, Until Sun01/12/25 at 2121, 1. First Line Antiemetic. 2. Use Injection only if patient unable to tolerate oral medications., Nausea - 1st line ondansetron (ZOFRAN-ODT) disintegrating tablet 4 mg(Linked Group 4) 4 mg, Oral, EVERY 6 HOURS PRN, Starting on 01/10/25 at 194, Until Sun01/12/25 at 2121, Nausea - 1st line, 1. First Line Antiemetic. 2. Use PO form unless unable to tolerate PO medications, then use Injection oxyCODONE-acetaminophen (PERCOCET) 5-325 MG per tablet 1 Tablet 1 Tablet, Oral, 3 TIMES DAILY PRN, Starting on 01/10/25 at 2109, Until Sun01/12/25 at 2121, Moderate pain or more severe pain if patient requests, Maximum dose of acetaminophen is 4000 mg from all sources in 24 hours. If pain not effectively managed, then contact provider to discuss possibly 1) adding scheduled opioid dosing or non-opioid pain treatments, 2) increasing dosage, or 3) changing to SYSTEMS CONSULTANT. 1504 (Given - Provider: Sofy Lopez RN) 0503 (Given - Provider: Heather Nation RN)1402 (Given - Provider: Jeanne Osullivan RN) polyethylene glycol (GLYCOLAX, MIRALAX) packet 17 g 17 g, Oral, 2 TIMES DAILY PRN, Starting on 01/10/25 at 1947, Until Sun01/12/25 at 2121, Constipation - 1st line, Dilute dose in 120 - 240 mL of beverage.Hold for loose stools (loose, liquid, mucoid, soft, watery stool that takes the shape of the container) or greater than 2 moderate or larger stools in 24hrs senna (SENOKOT) 8.6 mg 8.6 mg (1 Tablet), Oral, 2 TIMES DAILY PRN, Starting on 01/10/25 at 1947, Until Sun01/12/25 at 2121, Constipation - 2nd line Linked Groups Order Group 1: aspirin chewable tablet 81 mgJump to med 81 mg, Oral, DAILY, First dose on 01/10/25 at 2030, Until Discontinued Or aspirin suppository 300 mgJump to med 300 mg, Rectal, DAILY, First dose on Sun01/10/25 at 2030, Until Discontinued Group 2: acetaminophen (TYLENOL) tablet 650 mgJump to med 650 mg, Oral, EVERY 4 HOURS PRN, Starting on 01/10/25 at 1950, Until Sun01/12/25 at 2121, Mild pain or more severe pain if patient requests, Fever, If patient is taking oral intake without complications and both PO/AR orders are active, administer through the oral route. Or acetaminophen (TYLENOL) suppository 650 mgJump to med 650 mg, Rectal, EVERY 4 HOURS PRN, Starting on 01/10/25 at 1950, Until Sun01/12/25 at 2121, Mild pain or more severe pain if patient requests, Fever, If patient is taking oral intake without complications and both PO/AR orders are active, administer through the oral route. Group 3: glucose (GLUTOSE) 40 % gel GEL 15 gJump to med 15 g, Oral, PRN, Starting on 01/10/25 at 2118, Until Sun01/12/25 at 2121, Low blood sugar, Dose is based on glucose. 37.5 g tube = 15 GRAMS of GLUCOSE. For 15 GRAM GLUCOSE dose, give entire 37.5 g size tube. Administer 1 dose if patient is unable to take food, but conscious and able to swallow. Or dextrose 50 % solution 12.5 gJump to med 12.5 g, Intravenous, PRN, Starting on 01/10/25 at 2119, Until Sun01/12/25 at 2121, Low blood sugar, If IV patent in patient with blood glucose of 50 or less, or Unconscious, Conscious but NPO or Unable to Swallow regardless of blood glucose, administer 1 dose of dextrose 50% solution. Group 4: ondansetron (ZOFRAN-ODT) disintegrating tablet 4 mgJump to med 4 mg, Oral, EVERY 6 HOURS PRN, Starting on 01/10/25 at 1947, Until Sun01/12/25 at 2121, Nausea - 1st line, 1. First Line Antiemetic. 2. Use PO form unless unable to tolerate PO medications, then use Injection Or ondansetron (ZOFRAN) injection 4 mgJump to med 4 mg, Intravenous, EVERY 6 HOURS PRN, Starting on 01/10/25 at 1947, Until Sun01/12/25 at 2121, 1. First Line Antiemetic. 2. Use Injection only if patient unable to tolerate oral medications., Nausea - 1st line documented in this encounter Care Teams Take Away Man Relationship Specialty Start Date End Date Tad Becker MD [address] [place] [id number] PCP - General Family Medicine 01/17/24 Gloria Martinez MD #[address] [address] Consulting Physician Urology 04/30/24 documented as of this encounter
--- OUTSIDE RECORDS SUMMARY | 2025-01-14 18:27 | XMS_ITS | Encounter Summary ---
Author Organization [facility] Address [address] [place] [address] Phone Care Team Providers Care Braille Teacher Name Role Phone Jabier Peck MD Primary Care Provider [phone] Srikanth Adrian MD Unavailable Tad Romero MD Primary Care Provider [phone] Gloria Martinez MD Unavailable [phone] Reason for Visit * Reason Comments Medication Refill Encounter Details Date Type Department Care Team (Late st Contact Info) Description 06/16/2021 Refill [facility] [address] [place] [address] Jabier Peck MD #[address] [address] Medication Refill Social History Tobacco Use Types [...] Gender Identity Male 05/03/2023 12:44 PM EMERGENCY MAN Sexual Orientation Lesbian or Wolff 05/03/2023 12 :44 PM EMERGENCY MAN COVID-19 Exposure Response Date Recorded In the last month, have you been in contact with someone who was confirmed or suspected to have Coronavirus / COVID-19? No / Unsure 06/16/2021 1:10 PM EMERGENCY MAN documented as of this encounter Miscellaneous Notes [...] Dept 04/29/21 Office Visit Jabier Peck MD [facility] 03/16/21 Office Visit Kishore Prieto APRN, RICHARD [facility] 11/16/20 Office Visit Kishore Prieto APRN, RICHARD [facility] 10/20/20 Office Visit Jabier Peck MD [facility] 08/20/20 Telemedicine Kishore Prieto APRN, RICHARD [facility] 08/06/20 Telemedicine Kishore Prieto APRN, LUMBER STRAIGHTENER [facility] 06/22/20 Office Visit Kishore Prieto APRN, LUMBER STRAIGHTENER [facility] Showing recent visits within past 365 days and meeting all other requirements Future Appointments Date Type Provider Dept 08/01/21 Appointment Jabier Peck MD [facility] Showing future appointments within next 90 days and meeting all other requirements GENCY MAN documented in this encounter Plan of Treatment Not on file documented as of this encounter Visit Diagnoses Diagnosis Cervical radiculopathy Brachial neuritis or radiculitis nos documented in this encounter Additional Health Concerns Infection Onset Date Last Indicated Resolved Time COVID - 19 Confirmed 05/31/2022 05/31/2022 023 12:16 AM EMERGENCY MAN Respiratory Rule Out - RPA 02/26/2023 02/26/2023 0 02/26/2023 11:31 AM CDT COVID - 19 02/26/2023 02/26/2023 03/08/2023 12:1 6 AM CDT documented as of this encounter Care Teams Braille Teacher Relationship Specialty Start Date End Date Jabier Peck MD #2 [facility] [address] [place] [address] PCP - General Family Medicine 06/22/20 01/16/24 Tad Mcintosh MD [address] [place] [id number] PCP - General Family Medicine 01/17/24 Srikanth Adrian MD #2 [facility] [address] [place] [address] Blacksmith Hammer Operator Cardiovascular Disease - Cardiology 02/02/22 08/06/24 Gloria Martinez MD #2 [facility] [address] [place] [address] Consulting Physician Urology 04/30/24 documented as of this encounter
--- OUTSIDE RECORDS SUMMARY | 2025-01-14 18:27 | XMS_ITS | Encounter Summary ---
Author Organization [facility] Address [address] [place] [address] Phone Care Team Providers Care Quarter Supervisor Name Role Phone Jabier Peck MD Primary Care Provider [phone] Srikanth Adrian MD Unavailable Tad Romero MD Primary Care Provider [phone] Gloria Martinez MD Unavailable [phone] Reason for Visit * Reason Comments Medication Refill Encounter Details Date Type Department Care Team (Late st Contact Info) Description 04/11/2021 Refill [facility] [address] [place] [address] Kishore Prieto, PEG DRIVER, MANAGER AREA #[address] [address] Medication Refill Social History Tobacco Use Types [...] CDT Gender Identity Male 05/03/2023 12:44 PM 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 No / Unsure 04/14/2021 12:48 PM CDT documented as of this encounter Miscellaneous Notes * Telephone Encounter - Sabina Holly RN - 04/12/2021 12:20 PM CDT Tonny calling in from [facility]. He is requesting to find [...] 19 Confirmed 05/31/2022 05/31/2022 023 12:16 AM DUST COLLECTOR OPERATOR Respiratory Rule Out - RPA 02/26/2023 02/26/2023 0 02/26/2023 11:31 AM CDT COVID - 19 02/26/2023 02/26/2023 03/08/2023 12:1 6 AM CDT documented as of this encounter Care Teams Quarter Supervisor Relationship Specialty Start Date End Date Jabier Peck MD #[address] [address] PCP - General Family Medicine 06/22/20 01/16/24 Tad Mcintosh MD [address] [place] [address] PCP - General Family Medicine 01/17/24 Srikanth Adrian MD #[address] [facility] [address] [place] [address] Claims Correspondence Clerk Cardiovascular Disease - Cardiology 02/02/22 08/06/24 Gloria Martinez MD #[address] [facility] [place] [facility] [address] [place] [address] Consulting Physician Urology 04/30/24 documented as of this encounter
--- OUTSIDE RECORDS SUMMARY | 2025-01-14 18:27 | XMS_ITS | Clinical Summary ---
Author Organization [facility] Address [address] [address] Phone Care Team Providers Care Forming Roll Operator Name Role Phone Tad Mcintosh MD Primary Care Provider [phone] Gloria Martinez MD Unavailable [phone] Allergies Active Allergy Reactions Criticality Noted Date [...] MG CAPSULE SR 24 HR daily. 05/31/20 Active ALBUTEROL SULFATE IN take by inhalation every 4 hours as needed. Active NEEDLE, DISP, 18 G 18G X 1-1/2 MiscIndications:Hy pogonadism in male Use to draw up testosterone 6 Each 3 07/28/19 Active Syringe/Needle, Disp, 22G X 1-1/2 1.5 ML MiscIndications:Hy pogonadism in male Use for testosterone injection 6 Each 3 07/28/19 Active Respiratory Therapy Supplies (Nebulizer) Device Use as directed 1 Each 09/15/19 Active cetirizine (ZyrTEC) 10 MG Tablet Take 10 mg by mouth daily. Active OXcarbazepine (TRILEPTAL) 300 MG Tablet Take 600 mg by mouth 2 times daily. Active metoprolol Succinate (TOPROL-XL) 25 MG TABLET SR 24 HR TAKE 1 TABLET BY MOUTH EVERY DAY 90 Tablet 2 06/13/20 Active montelukast (SINGULAIR) 10 MG Tablet TAKE 1 [...] DAY 180 Capsule 1 03/19/20 23 Active Additional Information Patient taking differently: 20 mg Oral 2 TIMES DAILY, Reported on 01/10/2025 gabapentin (NEURONTIN) 600 MG TabletIndications: Cervical radiculopathy,Lumb ar radiculopathy TAKE ONE TABLET BY MOUTH THREE TIMES A DAY 270 Tablet 03/20/20 Active Additional Information Patient taking differently: 600 mg Oral 3 TIMES DAILY, Reported on 01/10/2025 atorvastatin (LIPITOR) 80 MG Tablet Take 1 [...] WHEEZING 8.5 g 1 12/07/19 24 Active oxyCODONE-acetamin ophen (PERCOCET) 5-325 MG Tablet Take 1 Tablet by mouth 3 times daily as needed for Moderate or more severe pain. 01/01/20 25 Active Linzess 290 MCG Capsule Take 290 mcg by mouth daily. 10/02/19 25 Active torsemide (DEMADEX) 20 MG Tablet Take 20 mg by mouth daily as needed for Other (Pt states when needed). Active insulin glargine (LANTUS, BASAGLAR) 100 UNIT/ML Solution Pen-injector 24 Units by Subcutaneous route nightly for 63 days. 15 mL 01/13/20 25 025 Active HumaLOG KwikPen 100 UNIT/ML Solution Pen-injector For blood glucose 150-200: Give 2 units; For 201-250: Give 4 units; For 251-300: Give 6 units; For 301-350: Give 8 units; For glucose of 351-400: Give 10 units. For glucose > 400: Give 12 units and contact physician 3 mL 01/13/20 25 Active Insulin Pen Needle (Pen [place]) 29G X 12MM Misc As instructed 100 Each 2 01/13/20 25 Active Blood Glucose Monitoring Suppl (D-Care Glucometer) w/Device Kit Use to monitor glucose fasting and prior to each meal 1 Kit 01/13/20 25 Active pseudoephedrine (SUDAFED) 120 MG TABLET SR 12 HR Take 120 mg by mouth 2 times daily as needed. 025 Discontin ued(Med List Clean Up) naloxone HCl (Narcan) 4 MG/0.1ML Liquid Use one nasal spray every 2-3 minutes until awake from drug overdose. Call 911. 2 Each 01/26/20 22 025 Discontin ued(Med List Clean Up) diclofenac (VOLTAREN) 50 MG Tablet Delayed Response TAKE 1 TABLET BY MOUTH EVERY 8 HOURS NEEDED-30 DAY SUPPLY 02/17/20 22 025 Discontin ued(Side effects) HYDROcodone-acetam inophen (NORCO) 10-325 MG TabletIndications: Chronic pain syndrome Take 1 Tablet by mouth every 8 hours as needed for Moderate or more severe pain. 42 Tablet 08/22/19 23 025 Discontin ued(Alter crystal therapy) tadalafil (CIALIS) 20 MG Tablet Take 1 Tablet by mouth as needed for Erectile Dysfunction. 30 Tablet 1 03/11/20 24 025 Discontin ued(Med List Clean Up) Active Problems Problem Noted Date Diagnosed Date Left hemiparesis 01/11/2025 Left sided numbness 01/11/2025 History of pulmonary embolus (PE) 01/11/2025 MAK (obstructive sleep apnea) 12/18/2022 Noncompliance 08/21/2022 Urinary urgency 08/21/2022 Personal [...] of thrombophilia associated with MTHFR m utation DVT (deep venous thrombosis) Overview (01/11/2025): R arm, August 2019 IBS (irritable bowel syndrome) Resolved Problems Problem Noted Date Diagnosed Date Resolved Date Diabetic foot infection 09/18/2021 04/0 11/2021 Encounters Date Type Department Care Team Description 01/10/2025 7:15 PM CDT - 01/12/2025 7:22 PM CDT Hospital Encounter [facility] [address] [place] [phone] CarCollette bethea MD Left sided numbness Discharge Disposition: Discharged to home or Selfcare 01/10/2025 Travel 10/21/2024 [facility] [place] [address] Jabier Peck MD Medication Refill 10/20/2024 [facility] [place] [address] Jabier Peck MD Medication Refill from Last [...] 05/14/2013 Pneumococcal Vaccine Adult - 23 Valent TDAP Vaccine 02/26/2019,02/26/2019 Family History Medical History [...] any time in the past 12 m ont, were you homeless or living in a nursing home (including now)? Patient declined 01/10/2025 [facility] Utilities Answer Date Recorded In the past 12 months has th e electric, gas, oil, or water [employer] threatened to shut off services in your [...] CDT Gender Identity Male 05/03/2023 12:44 PM CONTROL CLERK HEAD Sexual Orientation Lesbian or Wolff 05/03/2023 12 :44 PM CONTROL CLERK HEAD Last Filed Vital Signs Vital Sign Reading Time Taken Comments Blood Pressure 122/90 01/12/2025 4:00 PM CDT Pulse 80 01/12/2025 4:00 PM CDT Temperature 36.3 C (97.4 F) 01/12/2025 4:00 PM CDT Respiratory Rate 16 01/12/2025 4:00 PM CDT Oxygen Saturation 93% 01/12/2025 4:00 PM CDT Inhaled Oxygen Concentration - - Weight 107.3 kg (236 lb 8 oz) 01/10/2025 10:46 P M CDT Height 175.3 cm (5' 9) 01/10/2025 10:46 PM CDT Body Mass Index 34.92 01/10/2025 10:46 PM CDT Plan of Treatment Health Maintenance Due Date Last Done Comments Diabetes: Eye Exam 1970 Hepatitis B Immunization (1 of 3 - 19+ 3-dose series) 02/10/1988 Cologuard 2014 Immunochemical Fecal Occult Blood 2014 Zoster Immunization (1 of 2) 2019 Pneumococcal Immunization (50+ years) (2 of 2 - PCV) 06/22/2021 06/22/2020 Diabetes: Foot Exam 08/18/2022 08/18/2021 SARS-COV-2 Immunization ( - season) 2024 05/30/2021, 09/11/2020, 08/21/2020 Influenza Immunization (#1) 2025 11/2 , 02/24/2022, 08/01/2021, Additional history exists Diabetes: Hemoglobin A1c 07/13/2025 025, 02/26/2023, 08/21/2022, Additional history exists Colonoscopy 10/06/2025 10/06/2020 Colorectal Cancer Screening 10/06/2025 Diabetes: Nephropathy Screening 01/10/2026 01/10/2025, 02/26/2023, 08/21/2022, Additional history exists Td Immunization Every 10 Years (Adults With [...] AUTO DIFFERENTIAL Routine 01/11/2025 4:20 AM CDT COMPLETE BLOOD COUNT (CBC) WITH DIFF Routine 01/11/2025 4:20 AM CDT BASIC METABOLIC PANEL W/ CALCIUM TOTAL Routine 01/11/2025 4:20 AM CDT LIPID PANEL STAT 01/11/2025 4:20 AM CDT POCT GLUCOSE Routine 01/11/2025 12:04 AM CDT RHYTHM STRIP 01/11/2025 12:00 AM CDT RHYTHM STRIP 01/11/2025 12:00 AM CDT RHYTHM STRIP 01/11/2025 12:00 AM CDT EKG 12 LEAD STAT 01/10/2025 10:[address] REFERENCE IMAGES FOR IMAGE IMPORT Routine 01/10/2025 8:50 PM CDT CBC WITH AUTO DIFFERENTIAL STAT 01/10/2025 8:13 PM CDT N-TERMINAL- PRO B TYPE NATRIURETIC PEPTIDE Routine 01/10/2025 8:13 PM CDT CMP (COMPREHENSIVE METABOLIC PANEL) STAT 01/10/2025 8:13 PM CDT COMPLETE BLOOD COUNT (CBC) WITH DIFF STAT 01/10/2025 8:13 PM CDT HEMOGLOBIN A1C W/ ESTIMATED GLUCOSE STAT 01/10/2025 8:13 PM CDT POCT GLUCOSE Routine 01/10/2025 8:05 PM CDT PT EVALUATE AND TREAT Routine 01/10/2025 7:52 PM CDT EKG SCAN 01/10/2025 12:00 AM CDT PSA SCREEN Routine 02/26/2023 12:32 PM CDT Screening for prostate cancer CT CHEST SCREENING WO Routine 05/10/2022 2:52 PM CONTROL CLERK HEAD Personal history of nicotine dependence PODIATRY CONSULT 08/18/2021 12:0 0 AM CONTROL CLERK HEAD from Last 3 Months or Most Recently Relevant to Health Maintenance Results * (ABNORMAL) Glucose (01/12/2025 4:23 PM CDT) [facility] GLUCOSE 378(H) 70 - 99 mg/dL 01/12/2025 5:02 PM CDT [facility] Blood Venipuncture / Unknown 01/12/2025 4:23 PM CDT 01/12/2025 4:30 PM CDT us Collette Francois MD CHEMISTRY ORDERABLES Final Result [facility] [address] [place] [address] * (ABNORMAL) POCT Glucose (01/12/2025 4:08 PM CDT) Only the most recent of9 resultswithin the time period is included. [facility] GLUCOSE,BEDSID E POCT 402(HH) 70 - 99 mg/dL 01/12/2025 4:13 PM CDT [facility] Comment: RN Notified TOOK RUBIN ERWIN Blood 01/12/2025 4:08 PM CDT 01/12/2025 4:13 PM CDT us None Provider POINT OF CARE TESTING Final Resu lt [facility] [address] [place] [address] * US BILATERAL CAROTID DUPLEX (01/12/2025 11:01 [...] Enrique Groves M.D. AM: AM Report ID: [id number] Reading Location: [place] [address] Procedure Note Enrique Groves MD - 01/12/2025 [...] Enrique Groves M.D. AM: AM Report ID: [id number] Reading Location: [id number] IMPRESSION: 1. Velocities correspond to a less [...] tsang-scale and color Doppler US. RSNA 2003 us Yissel Iniguez APRN, RICHARD IMG US ORDERABLES Final R esult * [...] Atul Mena M.D. MM: MM Report ID: [id number] Reading Location: [id number] Procedure Note Atul Mena MD - 01/12/2025 [...] Atul Mena M.D. MM: MM Report ID: [id number] Reading Location: [id number] IMPRESSION: No acute infarction. us Yissel Iniguez BUTTER PRINTER, GLASS FORMING CREW MEMBER IMG MR ORDERABLES Final R esult * [...] Report (TTE) Patient name DILIP Arzate JR. De Jesus 1970 Patient ID (UPI) [id number] Indications: Stroke. Study Date01/12/2025 Technical quality: Poor [...] lbs. BMI (BSA) 34.91 kg/m^2 (2.22 m^2) Electronic Train Control Technician Chester Chelita R Room 231-01 Interpreting Lawrence Referring Physician jT Physician Procedure Note Tj Bravo MD - 01/12/2025 Transthoracic Echocardiography Report (TTE) Patient name DILIP Arzate JR. De Jesus 1970 Patient ID (UPI) [id number] Indications: Stroke. Study Date01/12/2025 Technical quality: Poor [...] lbs. BMI (BSA) 34.91 kg/m^2 (2.22 m^2) Electronic Train Control Technician Chester Merlos R Room 231-01 Interpreting Bravo Referring Physician Tj Physician us Yissel Iniguez BUTTER PRINTER, GLASS FORMING CREW MEMBER IMG ECHO ORDERABLES Edite d Result - Final * (ABNORMAL) CBC with Auto Differential (01/12/2025 4:44 AM CDT) Only the most recent of3 resultswithin the time period is included. WBC 10.97 4.00 - 12.00 10(3)/mcL 01/12/2025 5:21 AM CDT [facility] RBC 4.58 4.40 - 5.80 10(6)/mcL 01/12/2025 5:21 AM CDT [facility] HEMOGLOBIN (HGB) 14.9 13.0 - 16.5 g/dL 01/12/2025 5:21 AM CDT [facility] HEMATOCRIT (HCT) 42.7 38.0 - 50.0 % 01/12/2025 5:21 AM CDT [facility] MCV 93.2 82.0 - 96.0 fL 01/12/2025 5:21 AM CDT [facility] MCH 32.5(H) 26.0 - 32.0 pg 01/12/2025 5:21 AM CDT [facility] MCHC 34.9 31.0 - 36.0 g/dL 01/12/2025 5:21 AM CDT [facility] PLATELET COUNT 218 140 - 440 10(3)/mcL 01/12/2025 5:21 AM CDT [facility] RDW 13.3 11.8 - 15.5 % 01/12/2025 5:21 AM CDT [facility] MPV 10.7 8.0 - 12.6 fL 01/12/2025 5:21 AM CDT [facility] NEUTROPHILS 66.1 40.0 - 68.0 % 01/12/2025 5:21 AM CDT [facility] LYMPHOCYTES 25.3 19.0 - 49.0 % 01/12/2025 5:21 AM CDT [facility] MONOCYTES 3.7 3.0 - 13.0 % 01/12/2025 5:21 AM CDT [facility] EOSINOPHILS 3.3 0.0 - 8.0 % 01/12/2025 5:21 AM CDT [facility] BASOPHILS 1.1(H) 0.0 - 1.0 % 01/12/2025 5:21 AM CDT [facility] IMMATURE GRANULOCYTE 0.5(H) 0.0 - 0.4 % 01/12/2025 5:21 AM CDT [facility] Comment:Immature Granulocyte s includes Metamyelocytes, Myelocytes, and Promyelocytes. ABSOLUTE NEUTROPHILS 7.25(H) 1.40 - 5.30 10(3)/mcL 01/12/2025 5:21 AM CDT [facility] ABSOLUTE LYMPHOCYTES 2.77 0.90 - 3.30 10(3)/mcL 01/12/2025 5:21 AM CDT [facility] ABSOLUTE MONOCYTES 0.41 0.10 - 0.90 10(3)/[facility] 01/12/2025 5:21 AM CDT [facility] ABSOLUTE EOSINOPHIL 0.36 0.00 - 0.50 10(3)/[facility] 01/12/2025 5:21 AM CDT [facility] ABSOLUTE BASOPHILS 0.12(H) 0.00 - 0.10 10(3)/mcL 01/12/2025 5:21 AM CDT [facility] ABSOLUTE IMMATURE GRANULOCYTE 0.06(H) 0.00 - 0.03 10 (3) mcL. 01/12/2025 5:21 AM CDT [facility] NRBC PER 100 WBC 0 01/13/20 5:21 AM CDT [facility] Blood Venipuncture / Unknown 01/12/2025 4:44 AM CDT 01/12/2025 5:12 AM CDT us Yissel Iniguez BUTTER PRINTER, GLASS FORMING CREW MEMBER HEMATOLOGY ORDERABLES Fin al Result [facility] [address] [place] [address] * (ABNORMAL) BMP with Ca, Total (01/12/2025 4:44 AM CDT) Only the most recent of2 resultswithin the time period is included. SODIUM 139 136 - 145 mmol/L 01/12/2025 5:43 AM CDT [facility] POTASSIUM 3.3(L) 3.5 - 5.1 mmol/L 01/12/2025 5:43 AM CDT [facility] CHLORIDE 106 98 - 107 mmol/L 01/12/2025 5:43 AM CDT [facility] CO2, VENOUS 23 22 - 30 mmol/L 01/12/2025 5:43 AM CDT [facility] ANION GAP 13.3 <18.0 mmol/L 01/12/2025 5:43 AM CDT [facility] GLUCOSE 285(H) 70 - 99 mg/dL 01/12/2025 5:43 AM CDT [facility] BUN 14 8 - 26 mg/dL 01/12/2025 5:43 AM CDT [facility] CREATININE, BLOOD 1.31(H) 0.70 - 1.30 mg/dL 01/12/2025 5:43 AM CDT [facility] BUN/CREATININE RATIO 11(L) 12 - 20 ratio 01/12/2025 5:43 AM CDT [facility] CALCIUM 9.2 8.7 - 10.5 mg/dL 01/12/2025 5:43 AM CDT [facility] GFR, ESTIMATED >60 >=60 01/12/2025 5:43 AM CDT [facility] Comment: Creatinine Clearance is the preferred criteria for selecting drug dose adjustments in renally impaired patients. The GFR is provided as additional pertinent clinical information. GFR is reported in mL/min/1.73 sq m. Calculation based on the Chronic Kidney Disease Epidemiology Collaboration (CKD- EPI) equation refit without adjustment for race. GFR, EST. >60 >=60 01/12/2 025 5:43 AM CDT [facility] GFR, EST. NONAFRICAN 57(L) >=60 01/12/2025 5:43 AM CDT [facility] Blood Venipuncture / Unknown 01/12/2025 4:44 AM CDT 01/12/2025 5:10 AM CDT us Yissel Iniguez BUTTER PRINTER, GLASS FORMING CREW MEMBER CHEMISTRY ORDERABLES Becky l Result [facility] [address] [place] [address] * RHYTHM STRIP (01/12/2025 12:00 AM CDT) Only the most recent of5 resultswithin the time period is included. 01/12/2025 us Provider Scan IMG ECG ORDERABLES Final Result Performing Organization Address [facility] Co de Phone Number RESULTING AGENCY * (ABNORMAL) Lipid Panel (01/11/2025 4:20 AM CDT) CHOLESTEROL 149 <200 mg/dL 01/11/2025 5:16 AM CDT [facility] TRIGLYCERIDES 371(H) <150 mg/dL 01/11/2025 5:16 AM CDT [facility] HDL CHOLESTEROL 32(L) >40 mg/dL 5:16 AM CDT [facility] LDL 43 <130 mg/dL 01/11/2025 5:16 AM CDT [facility] VLDL 74(H) 10 - 50 mg/dL 01/11/2025 5:16 AM CDT [facility] CHOL/HDL RATIO 4.7(H) 0.0 - 4.4 01/11/2025 5:16 AM CDT [facility] NON-HDL CHOLESTEROL 117 <130 mg/dL 01/11/2025 5:16 AM CDT [facility] Blood Venipuncture / Unknown 01/11/2025 4:20 AM CDT 01/11/2025 4:49 AM CDT us Yissel Iniguez BUTTER PRINTER, GLASS FORMING CREW MEMBER CHEMISTRY ORDERABLES Becky l Result Performing Organization Address City/[facility] Co de Phone Number [facility] [address] [place] [address] * EKG 12 LEAD (01/10/2025 10:15 PM CDT) Ventricular Rate 77 BPM EXTERNAL EKG Atrial Rate 77 BPM EXTERNAL EKG P-R Interval 180 ms EXTERNAL EKG QRS Duration 104 ms EXTERNAL EKG Q-T Duration 438 ms EXTERNAL EKG QTC CALCULATION 495 ms EXTERNAL EKG P [place] 51 degrees EXTERNAL EKG R [place] 61 degrees EXTERNAL EKG T [place] 42 degrees EXTERNAL EKG 01/10/2025 10:1 5 PM CDT Impressions EXTERNAL EKG - 01/12/2025 9:22 AM CDT Normal sinus rhythm Nonspecific ST abnormality QTcB >= 480 msec Abnormal ECG When compared with ECG of 05-JUN-2021 20:03, No significant change was found ~ Confirmed by TJ BRAVO ([id number]) on 01/12/2025 9:22:30 AM Narrative Procedure Note Tj Bravo MD - 01/12/2025 IMPRESSION: Normal sinus rhythm Nonspecific ST abnormality QTcB >= 480 msec Abnormal ECG When compared with ECG of 05-JUN-2021 20:03, No significant change was found ~ Confirmed by TJ BRAVO ([id number]) on 01/12/2025 9:22:30 AM us Yissel Iniguez APRN, CNP IMG ECG ORDERABLES Final Result EXTERNAL EKG * CT REFERENCE IMAGES FOR IMAGE IMPORT (01/10/2025 8:50 PM CDT) us Not On File Provider IMG CT ORDERABLES Final Res ult * (ABNORMAL) Hemoglobin A1C w/ Estimated Glucose (01/10/2025 8:13 PM CDT) HGB-A1C 12.4(H) 4.0 - 6.0 % 01/10/2025 8:41 PM CDT [facility] Est Average Glucose 309.2 mg/dL 01/10/2025 8:41 PM CDT [facility] Blood Venipuncture / Unknown 01/10/2025 8:13 PM CDT 01/10/2025 8:22 PM CDT Narrative [facility] - 01/10/2025 8:41 PM CDT HEMOGLOBIN A1C: DIABETIC PATIENTS: WELL-CONTROLLED: 6.2 - 7.0 INTERMEDIATE WELL-CONTROLLED: 7.0 - 9.0 POORLY-CONTROLLED: >9.0 Specimens containing greater than 5% of Hemoglobin F may result in lower than expected % HbA1C results. us Yissel Iniguez BUTTER PRINTER, GLASS FORMING CREW MEMBER CHEMISTRY ORDERABLES Becky l Result Performing Organization Address City/[facility]/ZIP Co de Phone Number [facility] [address] [place] [address] * NT-proBNP (01/10/2025 8:13 PM CDT) NT PROBNP 32.2 <450.0 pg/mL 01/10/2025 10:30 PM CDT [facility] Comment: AGE pg/mL INTERPRETATION All <300 [...] 01/10/2025 8:22 PM CDT us Yissel Iniguez BUTTER PRINTER, GLASS FORMING CREW MEMBER CHEMISTRY ORDERABLES Becky l Result Performing Organization Address City/[facility]/ZIP Co de Phone Number [facility] [address] [place] [address] * (ABNORMAL) CMP (Comprehensive Metabolic Panel) (01/10/2025 8:13 PM CDT) SODIUM 136 136 - 145 mmol/L 01/10/2025 8:43 PM CDT [facility] POTASSIUM 2.9(L) 3.5 - 5.1 mmol/L 01/10/2025 8:43 PM CDT [facility] CHLORIDE 101 98 - 107 mmol/L 01/10/2025 8:43 PM CDT [facility] CO2, VENOUS 23 22 - 30 mmol/L 01/10/2025 8:43 PM CDT [facility] ANION GAP 14.9 <18.0 mmol/L 01/10/2025 8:43 PM CDT [facility] GLUCOSE 319(H) 70 - 99 mg/dL 01/10/2025 8:43 PM CDT [facility] BUN 13 8 - 26 mg/dL 01/10/2025 8:43 PM CDT [facility] CREATININE, BLOOD 1.41(H) 0.70 - 1.30 mg/dL 01/10/2025 8:43 PM CDT [facility] BUN/CREATININE RATIO 9(L) 12 - 20 ratio 01/10/2025 8:43 PM CDT [facility] TOTAL PROTEIN 7.2 6.0 - 8.0 g/dL 01/10/2025 8:43 PM CDT [facility] ALBUMIN 4.5 3.5 - 5.0 g/dL 01/10/2025 8:43 PM CDT [facility] A/G RATIO 1.7 1.0 - 2.2 01/10/2025 8:43 PM CDT [facility] CALCIUM 9.6 8.7 - 10.5 mg/dL 01/10/2025 8:43 PM CDT [facility] T BILI 0.5 0.2 - 1.2 mg/dL 01/10/2025 8:43 PM CDT [facility] SGOT (AST) 20 <43 U/L 01/10/2025 8:43 PM CDT [facility] SGPT (ALT) 40 <56 U/L 01/10/2025 8:43 PM CDT [facility] ALKALINE PHOSPHATASE 142 40 - 150 U/L 01/10/2025 8:43 PM CDT [facility] GFR, ESTIMATED 59(L) >=60 01/10/2025 8:43 PM CDT [facility] Comment: Creatinine Clearance is the preferred criteria for selecting drug dose adjustments in renally impaired patients. The GFR is provided as additional pertinent clinical information. GFR is reported in mL/min/1.73 sq m. Calculation based on the Chronic Kidney Disease Epidemiology Collaboration (CKD- EPI) equation refit without adjustment for race. GFR, EST. >60 >=60 025 8:43 PM CDT [facility] GFR, EST. NONAFRICAN 52(L) >=60 01/10/2025 8:43 PM CDT [facility] Blood Venipuncture / Unknown 01/10/2025 8:13 PM CDT 01/10/2025 8:22 PM CDT us Yissel Iniguez APRN, CNP CHEMISTRY ORDERABLES Becky l Result [facility] [address] [place] [address] * EKG SCAN (01/10/2025 12:00 AM CDT) 01/10/2025 us Provider Scan IMG ECG ORDERABLES Final Result RESULTING AGENCY * PSA SCREEN (02/26/2023 12:32 PM CDT) PSA SCREEN, TOTAL 0.60 <4.00 ng/mL 02/26/2023 1:45 PM CDT [facility] Blood Venipuncture / Unknown 02/26/2023 12:32 PM CDT 02/26/2023 12:57 PM CDT Narrative [facility] - 02/26/2023 1:45 PM CDT The [employer]AKAGE TESTER Total PSA assay is a Chemiluminescent Microparticle Immunoassay (CMIA) for the quantitative determination of total PSA (both free PSA and PSA complexed to [id number]) in human serum. us Kishore Prieto APRN, RICHARD CHEMISTRY ORDERA BLES Final Result [facility] [address] [place] [address] * CT CHEST SCREENING WO (05/10/2022 2:52 PM CONTROL CLERK HEAD) Anatomical Region Laterality Modality Chest N/A Computed Tomogra phy 05/12/2022 9:10 AM CONTROL CLERK HEAD Impressions 05/12/2022 9:13 AM CONTROL CLERK HEAD IMPRESSION: 1. Background of mild pulmonary emphysema. 2. Scattered tiny bilateral pulmonary nodules. No suspicious nodularity. 3. Mild coronary artery calcifications. 4. Additional findings as above. Lung-RADS v1.1 category 2: Benign appearance or behavior. Recommendation: Low dose CT of chest in 12 months. Narrative 05/12/2022 9:13 AM CONTROL CLERK HEAD EXAM DESCRIPTION: CT CHEST SCREENING WO REASON [...] Mallorie Gomez M.D. TW: KRISTIN Report ID: [id number] Reading Location: [place] [address] Procedure Note Mallorie Gomez MD - 05/12/2022 [...] Mallorie Gomez M.D. TW: KRISTIN Report ID: [id number] Reading Location: [id number] IMPRESSION: 1. Background of mild pulmonary emphysema. 2. Scattered tiny bilateral pulmonary nodules. No suspicious nodularity. 3. Mild coronary artery calcifications. 4. Additional findings as above. Lung-RADS v1.1 category 2: Benign appearance or behavior. Recommendation: Low dose CT of chest in 12 months. us Kishore Prieto APRN, RICHARD IMG CT ORDERABLE S Final Result * PODIATRY CONSULT (08/18/2021 12:00 AM CONTROL CLERK HEAD) 08/18/2021 us Not On File Provider GENERIC SCAN ORDERS CONSULT Final Result SCAN from Last 3 Months or Most Recently Relevant to Health Maintenance Insurance MEDICAID [place] MEDICARE C [facility] Advance Directives * Full Code (Latest Code Status on File) Date Activated Date Inactivated Comments 01/10/2025 9:15 PM CPR-Full Treat ment: FULL ARREST: Attempt Resuscitation/CPR wit intubation and mechanical ventilation. PRE-ARREST: Use entire range of life support measures to stabilize the patient. * Full Code Date Activated Date Inactivated Comments 09/18/2021 1:05 [...] measures to stabilize the patient. Care Teams Forming Roll Operator Relationship Specialty Start Date End Date Tad Mcintosh MD [address] [place] [id number] PCP - General Family Medicine 01/17/24 Gloria Matrinez MD [address] [place] [address] Consulting Physician Urology 04/30/24
--- OUTSIDE RECORDS SUMMARY | 2025-01-14 18:27 | XMS_ITS | Encounter Summary ---
Author Organization [facility] Address [address] [facility] [place] [address] Phone Care Team Providers Care Sequins Winder Name Role Phone Jabier Peck MD Primary Care Provider + [phone] Srikanth Adrian MD Unavailable Tad Romero MD Primary Care Provider [phone] Golria Martinez MD Unavailable [phone] Reason for Visit * Reason Comments Medication Refill Encounter Details Date Type Department Care Team (Late st Contact Info) Description 03/19/2023 Refill [facility] #2 [place] [address] Jabier Peck MD #[address] [address] Medication Refill Social History Tobacco Use Types [...] CDT Gender Identity Male 05/03/2023 12:44 PM SHERIFF'S DETECTIVE Sexual Orientation Lesbian or Wolff 05/03/2023 12 :44 PM SHERIFF'S DETECTIVE COVID-19 Exposure Response Date Recorded In the [...] Type Provider Dept 02/26/23 Office Visit Kishore Priteo APRN, RICHARD [facility] 12/18/22 Telemedicine Jabier Peck MD [facility] 11/30/22 Telemedicine Kishore Prieto APRN, [facility] 08/21/22 Office Visit Jabier Peck MD [facility] 07/20/22 Office Visit Gerri Rocha MD [facility] 05/03/22 Telemedicine Jabier Peck MD [facility] [place] Showing recent visits within past [...] on filedocumented in this encounter Care Teams Sequins Winder Relationship Specialty Start Date End Date Jabier Peck MD #2 [facility] [address] [place] [address] PCP - General Family Medicine 06/22/20 01/16/24 Tad Mcintosh MD [address] [place] [address] PCP - General Family Medicine 01/17/24 Srikanth Adrian MD #2 [facility] [address] [place] [address] Pull Over Machine Operator Cardiovascular Disease - Cardiology 02/02/22 08/06/24 Gloria Martinez MD #2 [facility] [address] [place] [address] Consulting Physician Urology 04/30/24 documented as of this encounter
--- OUTSIDE RECORDS SUMMARY | 2025-01-14 18:27 | XMS_ITS | Encounter Summary ---
Author Organization [facility] Address [address] [facility] [place] [address] Phone Care Team Providers Care Casino Accountant Name Role Phone Jabier Peck MD Primary Care Provider + [phone] Srikanth Adrian MD Unavailable Tad Romero MD Primary Care Provider [phone] Gloria Martinez MD Unavailable [phone] Reason for Visit * Reason Comments Medication Refill Encounter Details Date Type Department Care Team ([facility] st Contact Info) Description 08/19[facility]20[facility] [address] [place] [phone] Jt Morillo MD [address] [place] [address] Medication Refill Social History Tobacco Use Types [...] Gender Identity Male 05/03/2023 12:44 PM DIRECTOR BROADCAST Sexual Orientation Lesbian or Wolff 05/03/2023 12 :44 PM DIRECTOR BROADCAST COVID-19 Exposure Response Date Recorded In the last 10 days, have yo u been in contact with someone who was confirmed or suspected to have Coronavirus/COVID-19? No / Unsure 08/21/2022 12:53 PM DIRECTOR BROADCAST documented as of this encounter Miscellaneous Notes * Telephone Encounter - Aisha Escamilla RN - 08/21/2022 12:02 PM CST Approved Eliquis per last f/u note. CTOR BROADCAST documented in this encounter Plan of [...] documented as of this encounter Care Teams Casino Accountant Relationship Specialty Start Date End Date Jabier Peck MD #2 [facility] [address] [place] [address] PCP - General Family Medicine 06/22/20 01/16/24 Tad Mcintosh MD [address] [place] [address] PCP - General Family Medicine 01/17/24 Srikanth Adrian MD #2 [facility] [address] [place] [address] Maintenance Mechanic Supervisor Cardiovascular Disease - Cardiology 02/02/22 08/06/24 Gloria Martinez MD #2 [facility] [address] [place] [address] Consulting Physician Urology 04/30/24 documented as of this encounter
--- OUTSIDE RECORDS SUMMARY | 2025-01-14 18:27 | XMS_ITS | Encounter Summary ---
Author Organization [facility] Address [address] [facility] [place] [address] Phone Care Team Providers Care Cloud Engagement Partner Name Role Phone Tad Mcintosh MD Primary Care Provider [phone] Gloria Martinez MD Unavailable [phone] Reason for Visit * Reason Comments Medication Refill Encounter Details Date Type Department Care Team (Late st Contact Info) Description 10/21/2024 Refill [facility] #2 [place] [address] Jabier Peck MD #[address] [address] Medication Refill Social History Tobacco Use Types [...] CDT Gender Identity Male 05/03/2023 12:44 PM WASH AND GREASER Sexual Orientation Lesbian or Wolff 05/03/2023 12 :44 PM WASH AND GREASER documented as of this encounter Miscellaneous Notes * Telephone Encounter - Francine Soto RN - 10/22/2024 9:04 AM CDT PCP: Tad Mcintosh MD documented in this encounter Plan of Treatment Not on file documented as of this encounter Visit Diagnoses Not on filedocumented in this encounter Care Teams Cloud Engagement Partner Relationship Specialty Start Date End Date Tad Mcintosh MD [address] [place] [address] PCP - General Family Medicine 01/17/24 Gloria Martinez MD #[address] [address] Consulting Physician Urology 04/30/24 documented as of this encounter
--- OUTSIDE RECORDS SUMMARY | 2025-01-14 18:27 | XMS_ITS | Encounter Summary ---
Author Organization [facility] Address [address] [facility] [place] [address] Phone Care Team Providers Care Sander Wooden Pencils Name Role Phone Jabier Peck MD Primary Care Provider + [phone] Srikanth Adrian MD Unavailable Tad Romero MD Primary Care Provider [phone] Gloria Martinez MD Unavailable [phone] Reason for Visit * Reason Comments Medication Refill Encounter Details Date Type Department Care Team (Late st Contact Info) Description 03/24/2022 Refill [facility] #2 [place] [address] Kishore Prieto, PICK PACK WORKER, PERSONNEL PLACEMENT SPECIALIST #[address] [address] Medication Refill Social History Tobacco Use Types [...] Identity Male 05/03/2023 12:44 PM DIRECTOR OF PHOTOGRAPHY Sexual Orientation Lesbian or Wolff 05/03/2023 12 :44 PM DIRECTOR OF PHOTOGRAPHY COVID-19 Exposure Response Date Recorded In the [...] 05/31/2022 05/31/2022 023 12:16 AM DIRECTOR OF PHOTOGRAPHY Respiratory Rule Out - RPA 02/26/2023 02/26/2023 0 02/26/2023 11:31 AM CDT COVID - 19 02/26/2023 02/26/2023 03/08/2023 12:1 6 AM CDT documented as of this encounter Care Teams Sander Wooden Pencils Relationship Specialty Start Date End Date Jabier Peck MD #2 [facility] [address] [place] [address] PCP - General Family Medicine 06/22/20 01/16/24 Tad Mcintosh MD [address] [place] [address] PCP - General Family Medicine 01/17/24 Srikanth Adrian MD #2 [facility] [address] [place] [address] Business Project Analyst Cardiovascular Disease - Cardiology 02/02/22 08/06/24 Gloria Martinez MD #2 [facility] [address] [place] [address] Consulting Physician Urology 04/30/24 documented as of this encounter
--- OUTSIDE RECORDS SUMMARY | 2025-01-14 18:27 | XMS_ITS | Encounter Summary ---
Author Organization [facility] Address [address] [facility] [place] [address] Phone Care Team Providers Care Arborer Name Role Phone Jabier Peck MD Primary Care Provider + [phone] Srikanth Adrian MD Unavailable Tad Romero MD Primary Care Provider [phone] Gloria Martinez MD Unavailable [phone] Reason for Visit * Reason Comments Medication Refill Encounter Details Date Type Department Care Team (Late st Contact Info) Description 01/06/2021 Refill [facility] - [facility] #2 [place] [id number] Jt Morillo MD [address] [place] [address] Medication Refill Social History Tobacco Use Types [...] Gender Identity Male 05/03/2023 12:44 PM WAREHOUSE SELECTOR Sexual Orientation Lesbian or Wolff 05/03/2023 12 :44 PM WAREHOUSE SELECTOR documented as of this encounter Miscellaneous Notes [...] 19 Confirmed 05/31/2022 05/31/2022 023 12:16 AM WAREHOUSE SELECTOR Respiratory Rule Out - RPA 02/26/2023 02/26/2023 0 02/26/2023 11:31 AM CDT COVID - 19 02/26/2023 02/26/2023 03/08/2023 12:1 6 AM CDT documented as of this encounter Care Teams Arborer Relationship Specialty Start Date End Date Jabier Peck MD #[address] [facility] [address] [place] [address] PCP - General Family Medicine 06/22/20 01/16/24 Tad Mcintosh MD [address] [place] [address] PCP - General Family Medicine 01/17/24 Srikanth Adrian MD #[address] [facility] [address] [place] [address] Gm/Svp Global Publisher Business Cardiovascular Disease - Cardiology 02/02/22 08/06/24 Gloria Martinez MD #2 [facility] [address] [place] [address] Consulting Physician Urology 04/30/24 documented as of this encounter
--- OUTSIDE RECORDS SUMMARY | 2025-01-14 18:27 | XMS_ITS | Encounter Summary ---
Author Organization [facility] Address [address] [place] [address] Phone Care Team Providers Care Baker Second Name Role Phone Jabier Peck MD Primary Care Provider + [phone] Srikanth Adrian MD Unavailable Tad Romero MD Primary Care Provider [phone] Gloria Martinez MD Unavailable [phone] Reason for Visit * Reason Comments Medication Refill Encounter Details Date Type Department Care Team (Late st Contact Info) Description 07/22/2021 Refill [facility] Oncology Services [address] [place] [phone] Jt Morillo MD [address] [place] [address] Medication Refill Social History Tobacco Use Types [...] CDT Gender Identity Male 05/03/2023 12:44 PM LINUX ADMIN Sexual Orientation Lesbian or Wolff 05/03/2023 12 :44 PM LINUX ADMIN COVID-19 Exposure Response Date Recorded In the last month, have you been in contact with someone who was confirmed or suspected to have Coronavirus / COVID-19? No / Unsure 07/14/2021 12:17 PM LINUX ADMIN documented as of this encounter Miscellaneous Notes * Telephone Encounter - Michelle Wharton RN - 07/22/2021 2:26 PM LINUX ADMIN Refilled Eliquis X ADMIN documented in this encounter Plan of Treatment Not on file documented as of this encounter Visit Diagnoses Diagnosis History of thrombophilia associated with MTHFR mutation documented in this encounter Additional Health Concerns Infection Onset Date Last Indicated Resolved Time COVID - 19 Confirmed 05/31/2022 05/31/2022 023 12:16 AM LINUX ADMIN Respiratory Rule Out - RPA 02/26/2023 02/26/2023 0 02/26/2023 11:31 AM CDT COVID - 19 02/26/2023 02/26/2023 03/08/2023 12:1 6 AM CDT documented as of this encounter Care Teams Baker Second Relationship Specialty Start Date End Date Jabier Peck MD #2 [facility] [address] [place] [address] PCP - General Family Medicine 06/22/20 01/16/24 Tad Mcintosh MD [address] [place] [address] PCP - General Family Medicine 01/17/24 Srikanth Adrian MD #2 [facility] [address] [place] [address] Cad Cam Programmer Cardiovascular Disease - Cardiology 02/02/22 08/06/24 Gloria Martinez MD #2 [facility] [address] [place] [address] Consulting Physician Urology 04/30/24 documented as of this encounter
--- OUTSIDE RECORDS SUMMARY | 2025-01-14 18:27 | XMS_ITS | Encounter Summary ---
Author Organization [facility] Address [address] [facility] [place] [address] Phone Care Team Providers Care Investment Associate Name Role Phone Jabier Peck MD Primary Care Provider + [phone] Srikanth Adrian MD Unavailable Tad Romero MD Primary Care Provider [phone] Gloria Martinez MD Unavailable [phone] Encounter Details Date Type Department Care Team (Late st Contact Info) Description 03/21/2023 Telephone [facility] [address] [place] [address] Jabier Peck MD #[address] [address] Social History Tobacco Use Types Packs/Day Years [...] CDT Gender Identity Male 05/03/2023 12:44 PM QA AUTOMATION ENGINEER Sexual Orientation Lesbian or Wolff 05/03/2023 12 :44 PM QA AUTOMATION ENGINEER COVID-19 Exposure Response Date Recorded In [...] on filedocumented in this encounter Care Teams Investment Associate Relationship Specialty Start Date End Date Jabier Peck MD #2 [facility] [address] [place] [address] PCP - General Family Medicine 06/22/20 01/16/24 Tad Mcintosh MD [address] [place] [address] PCP - General Family Medicine 01/17/24 Srikanth Adrian MD #2 [facility] [address] [place] [address] Oracle Drm Consultant Cardiovascular Disease - Cardiology 02/02/22 08/06/24 Gloria Martinez MD #2 [facility] [address] [place] [address] Consulting Physician Urology 04/30/24 documented as of this encounter
--- OUTSIDE RECORDS SUMMARY | 2025-01-14 18:27 | XMS_ITS | Encounter Summary ---
Author Organization [facility] Address [address] [facility] [place] [address] Phone Care Team Providers Care Nuclear Medicine Officer Name Role Phone Jabier Peck MD Primary Care Provider + [phone] Srikanth Adrian MD Unavailable Tad Romero MD Primary Care Provider [phone] Gloria Martinez MD Unavailable [phone] Reason for Visit * Reason Comments Medication Refill Encounter Details Date Type Department Care Team (Late st Contact Info) Description 07/28/2022 Refill [facility] #2 [place] [address] Jabier Peck MD #[address] [address] Medication Refill Social History Tobacco Use Types [...] Identity Male 05/03/2023 12:44 PM HEAD OF ENGLISH Sexual Orientation Lesbian or Wolff 05/03/2023 12 :44 PM HEAD OF ENGLISH COVID-19 Exposure Response Date Recorded In the last 10 days, have yo u been in contact with someone who was confirmed or suspected to have Coronavirus/COVID-19? No / Unsure 07/20/2022 2:30 PM HEAD OF ENGLISH documented as of this encounter Miscellaneous Notes [...] Office Visit Kishore Prieto APRN, RICHARD [facility] 12/13/21 Telemedicine Kishore Prieto APRN, RICHARD [facility] [place] 08/01/21 Office Visit [facility] Showing recent visits within past 365 days and meeting all other requirements Future Appointments No visits were found meeting these conditions. Showing future appointments within next 90 days and meeting all other requirements OF ENGLISH documented in this encounter Plan of Treatment [...] documented as of this encounter Care Teams Nuclear Medicine Officer Relationship Specialty Start Date End Date Jabier Peck MD #2 [facility] [address] [place] [address] PCP - General Family Medicine 06/22/20 01/16/24 Tad Mcintosh MD [address] [place] [address] PCP - General Family Medicine 01/17/24 Srikanth Adrian MD #2 [facility] [address] [place] [address] Senior Compensation Consultant Cardiovascular Disease - Cardiology 02/02/22 08/06/24 Gloria Martinez MD #2 [facility] [address] [place] [address] Consulting Physician Urology 04/30/24 documented as of this encounter
--- OUTSIDE RECORDS SUMMARY | 2025-01-14 18:27 | XMS_ITS | Encounter Summary ---
Author Organization [facility] Address [address] [facility] [place] [place] [address] Phone Care Team Providers Care Make Up Editor Name Role Phone Tad Mcintosh MD Primary Care Provider [phone] Gloria Martinez MD Unavailable [phone] Reason for Visit * Reason Comments Medication Refill Encounter Details Date Type Department Care Team (Late st Contact Info) Description 10/20/2024 Refill [facility] #2 [place] [address] Jabier Peck MD #[address] [address] Medication Refill Social History Tobacco Use Types [...] CDT Gender Identity Male 05/03/2023 12:44 PM BABBITT SPINNER Sexual Orientation Lesbian or Wolff 05/03/2023 12 :44 PM BABBITT SPINNER documented as of this encounter Miscellaneous Notes * Telephone Encounter - Francine Soto RN - 10/21/2024 8:22 AM CDT PCP: Tad Mcintosh MD documented in this encounter Plan of Treatment Not on file documented as of this encounter Visit Diagnoses Not on filedocumented in this encounter Care Teams Make Up Editor Relationship Specialty Start Date End Date Tad Mcintosh MD [address] [place] [address] PCP - General Family Medicine 01/17/24 Gloria Martinez MD #[address] [address] Consulting Physician Urology 04/30/24 documented as of this encounter
--- OUTSIDE RECORDS SUMMARY | 2025-01-14 18:27 | XMS_ITS | Encounter Summary ---
Author Organization [facility] Address [address] [facility] [place] [address] Phone Care Team Providers Care Market Editor Name Role Phone Srikanth Adrian MD Unavailable Tad Romero MD Primary Care Provider [phone] Gloria Martinez MD Unavailable [phone] Reason for Visit * Reason Comments Medication Refill Encounter Details Date Type Department Care Team (Late st Contact Info) Description 03/15/2024 Refill [facility] - Family Medicine [facility] #2 [place] [address] Kishore Prieto, JOYA, POTATO CHIP MAKER #[address] [address] Medication Refill Social History Tobacco Use Types [...] CDT Gender Identity Male 05/03/2023 12:44 PM SILICATOR Sexual Orientation Lesbian or Wolff 05/03/2023 12 :44 PM SILICATOR documented as of this encounter Miscellaneous Notes * Telephone Encounter - Francine Soto RN - 03/17/2024 12:59 PM CDT PCP Tad Mcintosh MD documented in this encounter Plan of Treatment Not on file documented as of this encounter Visit Diagnoses Not on filedocumented in this encounter Care Teams Market Editor Relationship Specialty Start Date End Date Tad Mcintosh MD [address] [place] [address] PCP - General Family Medicine 01/17/24 Srikanth Adrian MD Library Aide Cardiovascular Disease - Cardiology 02/02/22 08/06/24 Gloria Martinez MD #[address] [address] Consulting Physician Urology 04/30/24 documented as of this encounter
--- OUTSIDE RECORDS SUMMARY | 2025-01-14 18:27 | XMS_ITS | Encounter Summary ---
Author Organization [facility] Address [address] [facility] [place] [address] Phone Care Team Providers Care Android Platform Developer Name Role Phone Jabier Peck MD Primary Care Provider + [phone] Srikanth Adrian MD Unavailable Tad Romero MD Primary Care Provider [phone] Gloria Martinez MD Unavailable [phone] Reason for Visit * Reason Comments Medication Refill Encounter Details Date Type Department Care Team ([facility] st Contact Info) Description 05/25/2022 Refill [facility] Oncology Services [address] [place] [address] Jt Morillo MD [address] [place] [address] Medication Refill Social History Tobacco Use Types [...] CDT Gender Identity Male 05/03/2023 12:44 PM ANIMAL NURSERY WORKER Sexual Orientation Lesbian or Wolff 05/03/2023 12 :44 PM ANIMAL NURSERY WORKER COVID-19 Exposure Response Date Recorded In the last 10 days, have yo u been in contact with someone who was confirmed or suspected to have Coronavirus/COVID-19? No / Unsure 05/10/2022 2:32 PM ANIMAL NURSERY WORKER documented as of this encounter Miscellaneous Notes * Telephone Encounter - Aisha Escamilla RN - 05/26/2022 11:00 AM CST Approved Eliquis per last f/u note. Pt to be on indefinite AC. [place] NURSERY WORKER documented in this encounter Plan of Treatment Not on file documented as of this encounter Visit Diagnoses Diagnosis History of thrombophilia associated with MTHFR mutation documented in this encounter Additional Health Concerns Infection Onset Date Last Indicated Resolved Time COVID - 19 Confirmed 05/31/2022 05/31/2022 023 12:16 AM ANIMAL NURSERY WORKER Respiratory Rule Out - RPA 02/26/2023 02/26/2023 0 02/26/2023 11:31 AM CDT COVID - 19 02/26/2023 02/26/2023 03/08/2023 12:1 6 AM CDT documented as of this encounter Care Teams Android Platform Developer Relationship Specialty Start Date End Date Jabier Peck MD #[address] [address] PCP - General Family Medicine 06/22/20 01/16/24 Tad Mcintosh MD [address] [place] [address] PCP - General Family Medicine 01/17/24 Srikanth Adrian MD #[address] [address] Powerhouse Electrician Apprentice Cardiovascular Disease - Cardiology 02/02/22 08/06/24 Gloria Martinez MD #[address] [address] Consulting Physician Urology 04/30/24 documented as of this encounter
--- OUTSIDE RECORDS SUMMARY | 2025-01-14 18:27 | XMS_ITS | Clinical Summary ---
Author Organization [facility] Facility Address [address] [place] [address] Care Team Providers Care Cane Furniture Maker Name Role Phone Jabier Peck MD MPH Primary Care Provider [phone] Allergies Active Allergy Reactions Criticality Noted Date [...] specimen (specimen) Venous blood / Unknown 12/30/2021 [facility] Provider LAB BLOOD ORDERABLES Becky l Result from Last 3 Months or Most Recently Relevant to Health Maintenance Insurance U[employer] Medicare Medicaid [place] Care Teams Cane Furniture Maker Relationship Specialty Start Date End Date Jabier Peck MD MPH [address] [address] PCP - General Family Medicine 09/13/21
--- OUTSIDE RECORDS SUMMARY | 2025-01-14 18:27 | XMS_ITS | Encounter Summary ---
Author Organization [facility] Address [address] [facility] [address] [place] [address] Phone Care Team Providers Care Support Engineer Name Role Phone Jabier Peck MD Primary Care Provider [phone] Srikanth Adrian MD Unavailable Tad Romero MD Primary Care Provider [phone] Gloria Martinez MD Unavailable [phone] Reason for Visit * Reason Comments Medication Refill Encounter Details Date Type Department Care Team (Late st Contact Info) Description 05/14/2022 Refill [facility] [address]2 [place] [address] Jabier Peck MD #[address] [address] Medication Refill Social History Tobacco Use Types [...] CDT Gender Identity Male 05/03/2023 12:44 PM ELECTROPLATING WORKER Sexual Orientation Lesbian or Wolff 05/03/2023 12 :44 PM ELECTROPLATING WORKER COVID-19 Exposure Response Date Recorded In the last 10 days, have yo u been in contact with someone who was confirmed or suspected to have Coronavirus/COVID-19? No / Unsure 05/10/2022 2:32 PM ELECTROPLATING WORKER documented as of this encounter Miscellaneous Notes * Telephone Encounter - Anjali Hartley RN - 05/15/2022 9:34 AM ELECTROPLATING WORKER PDMP 04/18/2022 #45, 15 day supply. Medication [...] Date Type Provider Dept 06/14/22 Appointment Kishore Preito APRN, [facility] Showing future appointments within next 90 days and meeting all other requirements TROPLATING WORKER documented in this encounter Plan of Treatment Not on file documented as of this encounter Visit Diagnoses Diagnosis Cervical radiculopathy Brachial neuritis or radiculitis nos documented in this encounter Additional Health Concerns Infection Onset Date Last Indicated Resolved Time COVID - 19 Confirmed 05/31/2022 05/31/2022 023 12:16 AM ELECTROPLATING WORKER Respiratory Rule Out - RPA 02/26/2023 02/26/2023 0 02/26/2023 11:31 AM CDT COVID - 19 02/26/2023 02/26/2023 03/08/2023 12:1 6 AM CDT documented as of this encounter Care Teams Support Engineer Relationship Specialty Start Date End Date Jabeir Peck MD #[address] [facility] [address] [place] [address] PCP - General Family Medicine 06/22/20 01/16/24 Tad Mcintosh MD [address] [place] [address] PCP - General Family Medicine 01/17/24 Srikanth Adrian MD #2 [facility] [address] [place] [address] Lan Analyst Cardiovascular Disease - Cardiology 02/02/22 08/06/24 Gloria Martinez MD #2 [facility] [address] [place] [address] Consulting Physician Urology 04/30/24 documented as of this encounter
--- OUTSIDE RECORDS SUMMARY | 2025-01-14 18:27 | XMS_ITS | Encounter Summary ---
Author Organization [facility] Address [address] [facility] [place] [place] [address] Phone Care Team Providers Care Clay Roaster Name Role Phone Srikanth Adrian MD Unavailable Tad Romero MD Primary Care Provider [phone] Gloria Martinez MD Unavailable Reason for Visit * Reason Comments Medication Refill Encounter Details Date Type Department Care Team (Late st Contact Info) Description 07/03/2024 Refill [facility] - Family Medicine [facility] [address]2 [place] [id number] Jabier Peck MD #[address] [address] Medication Refill Social History Tobacco Use Types [...] CDT Gender Identity Male 05/03/2023 12:44 PM DIE HARDENER Sexual Orientation Lesbian or Wolff 05/03/2023 12 :44 PM DIE HARDENER documented as of this encounter Miscellaneous Notes * Telephone Encounter - Francine Soto RN - 07/04/2024 8:54 AM CST PCP: Tad Mcintosh MD HARDENER documented in this encounter Plan of Treatment Not on file documented as of this encounter Visit Diagnoses Not on filedocumented in this encounter Care Teams Clay Roaster Relationship Specialty Start Date End Date Tad Mcintosh MD [address] [place] [address] PCP - General Family Medicine 01/17/24 Srikanth Adrian MD Tobacco Dipper Cardiovascular Disease - Cardiology 02/02/22 08/06/24 Gloria Martinez MD #[address] [address] Consulting Physician Urology 04/30/24 documented as of this encounter
--- OUTSIDE RECORDS SUMMARY | 2025-01-14 18:28 | XMS_ITS | Clinical Summary ---
Author Organization [facility] Address [address] [place] [address] Care Team Providers Care Tax Audit Manager Name Role Phone Tad Mcintosh DO Primary [...] 07/17/2024 Assessment & Plan (07/17/2024 1:09 PM CELLULAR BIOLOGIST): Continue increased hydration Avoid acidic foods and fluids for one more week Thrombophilia 01/25/2023 Palpitations 11/22/2022 Chest pain 07/31/2022 Essential hypertension 07/31/2022 Tongue lesion 04/28/2020 Assessment & Plan (06/26/2024 9:29 AM CELLULAR BIOLOGIST): Has pain medication prescribed by Manasa Cortes at [facility] will confirm use of [place] after surgery Stop Eliquis for 5 days before and after Excision of left lateral and right lateral tongue lesions with repair Risks and complications: Anesthesia, bleeding, infection, benign versus malignant pathology, recurrence of lesion, injury to arteries, nerves and veins, scarring and need for further treatment Assessment & Plan (04/28/2020 1:41 PM CELLULAR BIOLOGIST): Speak to [facility] about smoothing out right first [...] week Assessment & Plan (04/28/2020 1:41 PM CELLULAR BIOLOGIST): Speak to [facility] about smoothing out right first [...] (04/18/2019): Added automatically from request for surgery [id number] Hematochezia 03/04/2019 Overview (03/04/2019): Added automatically from request for surgery [id number] Family history of colon cancer 03/04/2019 Overview (03/04/2019): Added automatically from request for surgery [id number] 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 [place] level is in process. Will hold at [...] recommended Assessment & Plan (07/08/2019 3:43 PM CELLULAR BIOLOGIST): Healthy, low carbohydrate lifestyle and exercise for [...] hydration Assessment & Plan (08/10/2017 1:23 PM CELLULAR BIOLOGIST): s/p Right inferior parathyroidectomy - 08/10/2016 pre [...] renal Assessment & Plan (05/01/2017 10:36 PM CELLULAR BIOLOGIST): s/p Right inferior parathyroidectomy - 08/10/2016 pre [...] future Assessment & Plan (08/10/2017 1:24 PM CELLULAR BIOLOGIST): Recheck levels Assessment & Plan (12/17/2016 8:01 AM CDT): Recheck levels Type 2 diabetes mellitus wit h stage 3 chronic kidney disease, with long-term current use of insulin 12/11/2016 Assessment & Plan (07/08/2019 3:42 PM CELLULAR BIOLOGIST): A1c 5.5% Jun 2019 on no medications. [...] needed. Assessment & Plan (08/10/2017 1:26 PM CELLULAR BIOLOGIST): - A1c today 5.5 % - due [...] months. Assessment & Plan (05/01/2017 10:36 PM CELLULAR BIOLOGIST): - reviewed BS log - BS well [...] statin. Assessment & Plan (08/10/2017 1:23 PM CELLULAR BIOLOGIST): On statin therapy - advised to increase physical activity - advised low fat/chol diet and avoid greasy and junk food Assessment & Plan (05/01/2017 10:37 PM CELLULAR BIOLOGIST): On statin therapy - advised to increase [...] activity Assessment & Plan (08/10/2017 1:24 PM CELLULAR BIOLOGIST): BP well controlled, chronic At goal advised [...] f/u with him Explained the risk of [facility] MAK and encourage use of CPAP or [...] quit smoking so they can encourage you. Lead Loader referral placed. Class 2 severe obesity due t o excess calories with serious comorbidity and body mass index (BMI) of 37.0 to 37.9 in adult 08/16/2012 Overview (09/22/2016): Obesity Assessment & Plan (12/25/2019 1:57 PM CDT): Healthy, low carbohydrate lifestyle and exercise for 150min/week recommended Referral for psychodramatist placed. Assessment & Plan (10/16/2019 11:40 AM [...] greens, fat-free milk, cottage cheese, nuts like ufbyedh-otyuexj-vfeeikd, protein bars with 10-15 g of protein [...] discussed. Assessment & Plan (05/01/2017 10:37 PM CELLULAR BIOLOGIST): Obesity is improving with treatment. Discussed the [...] time. Assessment & Plan (05/01/2017 10:37 PM CELLULAR BIOLOGIST): Hypertension is improving with treatment. Continue current [...] kidney disease) stage 3, GFR 30-59 ml/min ([facility]) [place] poisoning Headache, tension-type Sleep apnea patient had [...] on file Legal Sex Male 5:22 PM CELLULAR BIOLOGIST Gender Identity Not on file Sexual Orientation Not on file Obstetrics History Last Filed Vital Signs Vital Sign Reading Time Taken Comments Blood Pressure 136/84 07/10/2024 4:54 PM CELLULAR BIOLOGIST Pulse 62 07/10/2024 4:54 PM CELLULAR BIOLOGIST Temperature 36.4 C (97.5 F) 07/10/2024 4:54 PM CELLULAR BIOLOGIST Respiratory Rate 16 07/10/2024 4:54 PM CELLULAR BIOLOGIST Oxygen Saturation 97% 07/10/2024 4:54 PM CELLULAR BIOLOGIST Inhaled Oxygen Concentration - - Weight 105.8 kg (233 lb 4 oz) 07/10/2024 10:09 A M CELLULAR BIOLOGIST Height 175.3 cm (5' 9) 07/10/2024 10:09 AM CELLULAR BIOLOGIST Body Mass Index 34.44 07/10/2024 10:09 AM CELLULAR BIOLOGIST Plan of Treatment Health Maintenance Due Date [...] 02/26/2029 02/26/2019 Medical Devices Implanted Type Area Data Collection Technician Device Identifier Shelf Expiration Date Model / Serial / Lot Opsona Angio-Seal Vip 6fr Closere Device [id number] - [id number] Implanted:Qty: 1 on 10/12/2022 by Eliel Ortiz MD at [facility] Other - see comments [employer] 03/17/2023 [id number] / / [id number] [employer] [id number] 4mm 44mm Compression Headless Foot Ankle Screw Bone - [id number] Implanted:Qty: 1 on 04/25/2019 by Chidi Rios DPM at [facility] Right: Toes [employer] [id number] / / [employer] Ezm 03-27-10 Easyclip Si 2mm [id number] Monocortical Superelastic Reamer - [id number] Implanted:Qty: 1 on 04/25/2019 by Chidi Rios DPM at [facility] Right: Toes [employer] [place] 11/16/2023 EZM 03-27-10 / / [id number] [employer] [place] Ezm 03-27-10 Easyclip Si 2mm [id number] Monocortical Superelastic Reamer - [id number] Implanted:Qty: 1 on 04/25/2019 by Chidi Rios DPM at [facility] Right: Toes [employer] [place] 11/16/2023 EZM 10-10 / / [id number] Toe Tac Xpress Hammertoe Fixation System Implanted:Qty: 2 on 04/25/2019 by Chidi Rios DPM at [facility] Right: Toes [employer] [id number] 05/27/2021 [id number] / [id number] / [id number] [employer] Implanted:Qty: 1 on 04/25/2019 by Chidi Rios DPM at [facility] Right: Toes [employer] 07/18/2028 [id number] / / [id number] Procedures Procedure Name Priority Date/Time Associated Diagnosis Comments EGFR STAT 04/19/2023 3:53 PM CDT HEMOGLOBIN A1C Routine 12/13/2019 2:55 PM CDT LIPID PANEL Routine 05/17/2018 2:25 PM CELLULAR BIOLOGIST Type 2 diabetes mellitus with hyperglycemia, with long-term current use of insulin (HCC) from Last 3 Months or Most Recently Relevant to Health Maintenance Results * eGFR (04/19/2023 3:53 PM CDT) eGFR 51 mL/min/1. 73 m2 [facility] ([place]) Comment: Interpretive Data Reference Interval Normal >/= [...] BLOOD ORDERABLE S Final Result [facility] ([place]) [facility] [place] [address] * (ABNORMAL) Hemoglobin A1c (12/13/2019 2:55 PM CDT) Blood specimen (specimen) 12/13/2019 2:55 PM CDT [facility]ative [facility] - 12/13/2019 2:55 PM CDT Results in labs Historical Provider LAB BLOOD ORDERABLES Becky l Result [place], [place] [phone] * (ABNORMAL) Lipid panel (05/17/2018 2:25 PM CELLULAR BIOLOGIST) Cholesterol 159 30 - 199 mg/dL CERNER [...] (EVER) Blood specimen (specimen) 05/17/2018 2:25 PM CELLULAR BIOLOGIST 05/17/2018 5:15 PM CELLULAR BIOLOGIST Narrative [facility] ([place]) - 05/17/2018 6:14 PM CELLULAR BIOLOGIST Tori Sims MD LAB BLOOD ORDERABLE S Final Result [facility] ([place]) 1 [facility] [place] [address] from Last 3 Months or Most Recently Relevant to Health Maintenance Insurance IDPA [facility] MEDICARE ADVANTAGE MEDICARE [facility]IC[facility] ADVANT[facility] Address: [address] [address] [place] [address] [facility] MEDIC[facility] AD[facility]ANTAGE [facility] Address: [address] [address] IDPA [facility] MEDICARE ADVANTAGE Advance Directives For more information, please contact: [phone] * Full Code (Latest Code Status on File) Date Activated Date Inactivated Comments 10/12/2022 2:12 PM 10/12/2022 10:46 PM * Full Code Date Activated Date Inactivated Comments 09/24/2017 9:04 PM 09/30/2017 5:22 PM Care Teams Tax Audit Manager Relationship Specialty Start Date End Date Tad Mcintosh DO [address] [place] [address] PCP - General Family Medicine 06/26/24
--- OUTSIDE RECORDS SUMMARY | 2025-01-14 18:28 | XMS_ITS | Referral Summary ---
Author Organization [facility] Address [address] [place] [address] Care Team Providers Care Hospital Social Worker Name Role Phone Tad Mcintosh DO Primary [...] 07/17/2024 Assessment & Plan (07/17/2024 1:09 PM CARDIAC EXERCISE PHYSIOLOGIST): Continue increased hydration Avoid acidic foods and fluids for one more week Thrombophilia 01/25/2023 Palpitations 11/22/2022 Chest pain 07/31/2022 Essential hypertension 07/31/2022 Tongue lesion 04/28/2020 Assessment & Plan (06/26/2024 9:29 AM CARDIAC EXERCISE PHYSIOLOGIST): Has pain medication prescribed by Manasa Cortes at [facility] will confirm use of [place] after surgery Stop Eliquis for 5 days before and after Excision of left lateral and right lateral tongue lesions with repair Risks and complications: Anesthesia, bleeding, infection, benign versus malignant pathology, recurrence of lesion, injury to arteries, nerves and veins, scarring and need for further treatment Assessment & Plan (04/28/2020 1:41 PM CARDIAC EXERCISE PHYSIOLOGIST): Speak to [facility] about smoothing out right first [...] week Assessment & Plan (04/28/2020 1:41 PM CARDIAC EXERCISE PHYSIOLOGIST): Speak to [facility] about smoothing out right first [...] (04/18/2019): Added automatically from request for surgery [id number] Hematochezia 03/04/2019 Overview (03/04/2019): Added automatically from request for surgery [id number] Family history of colon cancer 03/04/2019 Overview (03/04/2019): Added automatically from request for surgery [id number] 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 [place] level is in process. Will hold at [...] recommended Assessment & Plan (07/08/2019 3:43 PM CARDIAC EXERCISE PHYSIOLOGIST): Healthy, low carbohydrate lifestyle and exercise for [...] hydration Assessment & Plan (08/10/2017 1:23 PM CARDIAC EXERCISE PHYSIOLOGIST): s/p Right inferior parathyroidectomy - 08/10/2016 pre [...] renal Assessment & Plan (05/01/2017 10:36 PM CARDIAC EXERCISE PHYSIOLOGIST): s/p Right inferior parathyroidectomy - 08/10/2016 pre [...] future Assessment & Plan (08/10/2017 1:24 PM CARDIAC EXERCISE PHYSIOLOGIST): Recheck levels Assessment & Plan (12/17/2016 8:01 AM CDT): Recheck levels Type 2 diabetes mellitus wit h stage 3 chronic kidney disease, with long-term current use of insulin 12/11/2016 Assessment & Plan (07/08/2019 3:42 PM CARDIAC EXERCISE PHYSIOLOGIST): A1c 5.5% Jun 2019 on no medications. [...] needed. Assessment & Plan (08/10/2017 1:26 PM CARDIAC EXERCISE PHYSIOLOGIST): - A1c today 5.5 % - due [...] months. Assessment & Plan (05/01/2017 10:36 PM CARDIAC EXERCISE PHYSIOLOGIST): - reviewed BS log - BS well [...] statin. Assessment & Plan (08/10/2017 1:23 PM CARDIAC EXERCISE PHYSIOLOGIST): On statin therapy - advised to increase physical activity - advised low fat/chol diet and avoid greasy and junk food Assessment & Plan (05/01/2017 10:37 PM CARDIAC EXERCISE PHYSIOLOGIST): On statin therapy - advised to increase [...] activity Assessment & Plan (08/10/2017 1:24 PM CARDIAC EXERCISE PHYSIOLOGIST): BP well controlled, chronic At goal advised [...] f/u with him Explained the risk of fpc MAK and encourage use of CPAP or [...] quit smoking so they can encourage you. Armament Repairer referral placed. Class 2 severe obesity due t o excess calories with serious comorbidity and body mass index (BMI) of 37.0 to 37.9 in adult 08/16/2012 Overview (09/22/2016): Obesity Assessment & Plan (12/25/2019 1:57 PM CDT): Healthy, low carbohydrate lifestyle and exercise for 150min/week recommended Referral for process controls technician placed. Assessment & Plan (10/16/2019 11:40 AM [...] greens, fat-free milk, cottage cheese, nuts like mpjmeia-kqsgtrw-isnmbyb, protein bars with 10-15 g of protein [...] discussed. Assessment & Plan (05/01/2017 10:37 PM CARDIAC EXERCISE PHYSIOLOGIST): Obesity is improving with treatment. Discussed the [...] time. Assessment & Plan (05/01/2017 10:37 PM CARDIAC EXERCISE PHYSIOLOGIST): Hypertension is improving with treatment. Continue current [...] on file Legal Sex Male 5:22 PM CARDIAC EXERCISE PHYSIOLOGIST Gender Identity Not on file Sexual Orientation Not on file Last Filed Vital Signs Vital Sign Reading Time Taken Comments Blood Pressure 136/84 07/10/2024 4:54 PM CARDIAC EXERCISE PHYSIOLOGIST Pulse 62 07/10/2024 4:54 PM CARDIAC EXERCISE PHYSIOLOGIST Temperature 36.4 C (97.5 F) 07/10/2024 4:54 PM CARDIAC EXERCISE PHYSIOLOGIST Respiratory Rate 16 07/10/2024 4:54 PM CARDIAC EXERCISE PHYSIOLOGIST Oxygen Saturation 97% 07/10/2024 4:54 PM CARDIAC EXERCISE PHYSIOLOGIST Inhaled Oxygen Concentration - - Weight 105.8 kg (233 lb 4 oz) 07/10/2024 10:09 A M CARDIAC EXERCISE PHYSIOLOGIST Height 175.3 cm (5' 9) 07/10/2024 10:09 AM CARDIAC EXERCISE PHYSIOLOGIST Body Mass Index 34.44 07/10/2024 10:09 AM CARDIAC EXERCISE PHYSIOLOGIST Plan of Treatment Not on file Medical Devices Implanted Type Area Immigration Case Manager Device Identifier Shelf Expiration Date Model / Serial / Lot Crisp Angio-Seal Vip 6fr Closere Device [id number] - [id number] Implanted:Qty: 1 on 10/12/2022 by Eliel Ortiz MD at [facility] Other - see comments [employer]in 03/17/2023 [id number] / / [id number] [employer] [id number] 4mm 44mm Compression Headless Foot Ankle Screw Bone - [id number] Implanted:Qty: 1 on 04/25/2019 by Chidi Rios DPM at [facility] Right: Toes [employer] [id number] / / [employer] [place] Ezm 03-27-10 Easyclip Si 2mm [id number] Monocortical Superelastic Reamer - [id number] Implanted:Qty: 1 on 04/25/2019 by Chidi Rios DPM at [facility] Right: Toes [employer] [place] 11/16/2023 [id number] 03-27-10 / / [id number] [employer] Ez[employer] 10-10-10 Easyclip Si 2mm [id number] Monocortical Superelastic Reamer - [id number] Implanted:Qty: 1 on 04/25/2019 by Chidi Rios DPM at [facility] Right: Toes [employer] [place] 11/16/2023 EZM 10-10-10 / / [id number] Toe Tac Xpress Hammertoe Fixation System Implanted:Qty: 2 on 04/25/2019 by Chidi Rios DPM at [facility] Right: Toes [employer] [id number] 05/27/2021 [id number] / [id number] / [id number] [employer] Implanted:Qty: 1 on 04/25/2019 by Chidi Rios DPM at [facility] Right: Toes [employer] 07/18/2028 [id number] / / [id number] Procedures Procedure Name Priority Date/Time Associated Diagnosis Comments EGFR STAT 04/19/2023 3:53 PM CDT HEMOGLOBIN A1C Routine 12/13/2019 2:55 PM CDT LIPID PANEL Routine 05/17/2018 2:25 PM CARDIAC EXERCISE PHYSIOLOGIST Type 2 diabetes mellitus with hyperglycemia, with long-term current use of insulin (HCC) from Last 3 Months or Most Recently Relevant to Health Maintenance Results * eGFR (04/19/2023 3:53 PM CDT) eGFR 51 mL/min/1. 73 m2 [facility] ([place]) Comment: Interpretive Data Reference Interval Normal >/= [...] ORDERABLE S Final Result Performing Organization Address City/[facility]/ZIP Co de Phone Number [facility] ([place]) 1 [facility] [place] [address] * (ABNORMAL) Hemoglobin A1c (12/13/2019 2:55 PM CDT) Blood specimen (specimen) 12/13/2019 2:55 PM CDT Narrative [facility] - 12/13/2019 2:55 PM CDT Results in labs Aliza Carlson MD LAB BLOOD ORDERABLES Becky l Result Performing Organization Address [facility]/ZIP Co de Phone Number [place], [place] [phone] * (ABNORMAL) Lipid panel (05/17/2018 2:25 PM CARDIAC EXERCISE PHYSIOLOGIST) Cholesterol 159 30 - 199 mg/dL JANUARY [...] 2018. Triglycerides 143 <=149 mg/dL [facility] ([place]) Comment: Interpretive Data Ages < or = [...] (EVER) Blood specimen (specimen) 05/17/2018 2:25 PM CARDIAC EXERCISE PHYSIOLOGIST 05/17/2018 5:15 PM CARDIAC EXERCISE PHYSIOLOGIST Narrative [facility] ([place]) - 05/17/2018 6:14 PM CARDIAC EXERCISE PHYSIOLOGIST Cleoja Levi Sims MD LAB BLOOD ORDERABLE S Final Result [facility] ([place]) 1 [facility] [place] [address] from Last 3 Months or Most Recently Relevant to Health Maintenance Insurance IDPA [facility] MEDICARE ADVANTAGE MEDICARE [facility] MEDICARE ADVANTAGE [facility] MEDICARE ADVANTAGE IDPA [facility] MEDICARE ADVANTAGE Advance Directives For more information, please contact: [phone] * Full Code (Latest Code Status on File) Date Activated Date Inactivated Comments 10/12/2022 2:12 PM 10/12/2022 10:46 PM * Full Code Date Activated Date Inactivated Comments 09/24/2017 9:04 PM 09/30/2017 5:22 PM Care Teams Hospital Social Worker Relationship Specialty Start Date End Date Tad Mcintosh DO [address] [place] [address] PCP - General Family Medicine 1/9/25
--- NOTE | 2025-01-14 18:49 | PC.NURSE ---
report to jaswinder magallanes
--- NOTE | 2025-01-14 18:54 | ED_ITS ---
HPI - General Adult General Chief complaint: Unspecified Stated complaint: elevated blood sugar Source: patient Mode of arrival: ambulatory Limitations: no limitations History of Present Illness HPI narrative: 54-year-old male, smoker with a history bipolar, asthma, diabetes mellitus, lupus anticoagulant on Eliquis, hypertension, CKD, dyslipidemia CVA with left- sided weakness, negative cardiac catheterization presented to the ED on 01/10/2025 and was noted to have new left-sided weakness and elevated blood sugars. He was transferred to [facility] in [place] where he was admitted. Patient had an MRI which did not show any evidence of new stroke and he was diagnosed to have a TIA. Patient was discharged 2 days ago. Patient presents to the ED with -- elevated blood sugars. Blood sugars have been more than 600. Patient has been compliant with diet. Patient was discharged 2 days ago [address] [facility] with the attempted to control his blood sugars. His sugars never decreased to less than 300. Patient does not have any fever or chills. No upper respiratory symptoms. No dysuria or hematuria. No abdominal pain. Onset (ago): day(s) ( One day) Associated symptoms: cough and rash ( psoriatic rash both lower extremities) Treatments prior to arrival: none Related Data Home Medications ?Medication ?Instructions ?Recorded ?Confirmed ?Last Taken ?Type aripiprazole 20 mg tablet 20 mg PO DAILY 06/20/23 11/26/24 Unknown History aripiprazole 5 mg tablet 5 mg PO DAILY 06/20/23 11/26/24 Unknown History aspirin 81 mg tablet,delayed 81 mg PO DAILY 06/20/23 11/26/24 Unknown History release (Adult Low Dose Aspirin) bupropion HCl 300 mg 24 hr tablet, 300 mg PO QAM 06/20/23 11/26/24 Unknown History extended release venlafaxine 150 mg 150 mg PO DAILY 06/20/23 11/26/24 Unknown History capsule,extended release 24 hr Allergies Allergy/AdvReac Type Severity Reaction Status Date / Time ivp dye Allergy Severe cant Uncoded 01/10/25 16:12 breathe Review of Systems 2 Review of Systems: All systems reviewed & are unremarkable except as noted in HPI and below Constitutional: Constitutional: Reports as per HPI and Reports no additional constitutional complaints Eyes: Eyes: Reports as per HPI and Reports no additional eye complaints ENT: Reports system reviewed and no additional complaints, except as documented and Reports as per HPI Cardiovascular: Cardiovascular: Reports as per HPI and Reports no additional cardiovascular complaints Respiratory: Respiratory: Reports as per HPI, Reports no additional respiratory complaints, Reports cough and Reports dyspnea on exertion Gastrointestinal: Gastrointestinal: Reports as per HPI and Reports no additional gastrointestinal complaints Genitourinary: Genitourinary: Reports no additional male genitourinary complaints and Reports as per HPI Musculoskeletal: Musculoskeletal: Reports no additional musculoskeletal complaints and Reports as per HPI Integumentary/Breasts: Skin/Breast: Reports system reviewed and no additional complaints, except as docu Comments: psoriatic rash both lower extremities. Neurologic: Reports system reviewed and no additional complaints, except as documented and Reports as per HPI Psychiatric: Psychiatric: Reports no additional psychiatric complaints and Reports as per HPI Endocrine: Endocrine: Reports no additional endocrine complaints and Reports as per HPI Hematologic/Lymphatic: Hematologic/Lymphatic: Reports no additional hematologic/lymphatic complaints and Reports as per HPI Allergic/Immunologic: Allergic/Immunologic: Reports no additional allergic/immunologic complaints and Reports as per HPI [facility] Past Medical History Medical History Lupus Asthma Family History Family History Mother Carcinoma of colon Father Emphysema lung Grandparent Diabetes mellitus Sibling Lupus Other Hypertension Social History Social History Smoking packs per day: 0.5 Smoking cigarettes per day: 10.0 Smoking status: Former smoker Alcohol intake: never Substance use: never Gender identity (if verbalized by the patient): Male Exam 2 Const: General: cooperative, healthy appearing, comfortable and no acute distress Orientation/consciousness: oriented to person, oriented to place and oriented to time HENMT: Head: normal to inspection, normocephalic and atraumatic Ears: h earing grossly normal bilaterally Face/Nose/Sinus: Normal external nose present, Normal nares present and Other nasal findings present ( crowded oropharynx) Face and sinus: normal facial exam, sinuses nontender and face symmetric Mouth: Yes Normal oral and palatal mucosa present, Yes lip normal and Yes tongue normal Throat: posterior oropharynx normal Eyes: General: appearance normal, both eyes and all related structures V isual Sanchez: normal visual sanchez by confrontation Eyelids: eyelids normal Conjunctivae: conjunctivae normal Sclera: sclerae normal Cornea: corneas normal Pupils: Equal, round and reactive pupils present Neck: Neck: normal visual inspection, full ROM, no lymphadenopathy and no meningeal signs Chest: Chest palpation & inspection: normal inspection of the chest Resp: Effort & Inspection: normal respiratory effort Auscultation: d iminished lung sounds Cardio: Palpation: normal PMI Rate: regular rate Heart sounds: S1 normal heart sound present and S2 normal heart sound present GI: Inspection: normal to inspection Auscultation: normal bowel sounds : General: Yes no CVA tenderness Back/Spine/Pelvis: Back: no CVA tenderness Skin: General skin exam: normal color and no rashes or lesions noted ( bilateral lower extremity erythematous rash) Neuro: General: oriented to person, oriented to place and oriented to time Cognition (Neuro): normal cognition Speech: normal speech Extrem: General: normal to inspection, full ROM and capillary refill normal Psych: Appearance: grossly normal Course Course Emergency Course: elevated blood sugars-- Normal anion gap. The patient received 10 units of IV insulin x2. The patient received 2 L of IV fluids. Blood sugar currently is noted as 161. Patient has chronically elevated blood sugars. No obvious focus of infection. The patient had a UA which was negative and a chest x-ray which was unremarkable. The patient is afebrile with a white count of 8.9. Patient had an elevated lactate of 2.9 which subsequently decreased to 1.6. The patient received a sandwich and cottage cheese. 23:30-- repeat blood sugar was noted to be 180. Will discharge patient home. Vital Signs Vital signs: Vital Signs Temperature 37.1 C 01/14/25 18:24 Pulse Rate 72 01/14/25 18:24 Respiratory Rate 20 01/14/25 18:24 Blood Pressure 126/67 01/14/25 18:24 Pulse Oximetry 93 01/14/25 18:24 Oxygen Delivery Room Air 01/14/25 18:24 Temperature 36.4 C 01/14/25 23:28 Pulse Rate 67 01/14/25 23:28 Respiratory Rate 20 01/14/25 23:28 Blood Pressure 129/73 01/14/25 23:28 Pulse Oximetry 95 01/14/25 21:46 Oxygen Delivery Room Air 01/14/25 18:24 Medical Decision Making MDM Narrative Medical decision making narrative: Hyperglycemia type 2 diabetes mellitus Differential Diagnosis Differential Diagnosis: hyperosmolar nonketotic state, diabetic ketoacidosis Medical Records Medical records reviewed: Yes I reviewed the external patient's medical records. Vital Signs Vital Signs: Vital Signs Temperature 37.1 C 01/14/25 18:24 Pulse Rate 72 01/14/25 18:24 Respiratory Rate 20 01/14/25 18:24 Blood Pressure 126/67 01/14/25 18:24 Pulse Oximetry 93 01/14/25 18:24 Oxygen Delivery Room Air 01/14/25 18:24 Temperature 36.4 C 01/14/25 23:28 Pulse Rate 67 01/14/25 23:28 Respiratory Rate 20 01/14/25 23:28 Blood Pressure 129/73 01/14/25 23:28 Pulse Oximetry 95 01/14/25 21:46 Oxygen Delivery Room Air 01/14/25 18:24 Lab Data 01/14/25 19:12 01/14/25 19:12 Labs: Lab Results 01/14/25 01/14/25 01/14/25 Range/Units 18:30 19:12 19:52 WBC 8.9 (4.8-10.8) K/mm3 RBC 4.00 L (4.70-6.10) M/mm3 Hgb 12.9 L (14.0-18.0) g/dL Hct 37.7 L (40.0-54.0) % MCV 94.3 (78.0-102.0) fL MCH 32.3 H (27.0-31.0) pg MCHC 34.2 (32-36) g/dL RDW 13.2 (11.6-14.4) % Plt Count 202 (150-420) K/mm3 MPV 10.9 (8.7-11.0) fl Immature Gran % (Auto) 0.3 H (0.0-0.0) % Neut % (Auto) 62.2 (50.0-70.0) % Lymph % (Auto) 27.8 (18.0-42.0) % [place] % (Auto) 4.6 (2.0-11.0) % Eos % (Auto) 4.1 (1.0-6.0) % Baso % (Auto) 1.0 (0.0-1.0) % Lymph # (Auto) 2.46 (1.10-4.50) K/mm3 [place] # (Auto) 0.41 (0.10-0.90) K/mm3 Eos # (Auto) 0.36 (0.02-0.50) K/mm3 Baso # (Auto) 0.09 (0.00-0.10) K/mm3 Abs Immat Gran (auto) 0.03 H (0.00-0.00) K/mm3 Absolute Neuts (auto) 5.50 (1.70-7.20) K/mm3 Absolute Nucleated RBC 0.00 (0.00-0.00) K/mm3 Nucleated RBC % 0.0 (0-0.0) % Sodium 129 L (137-145) mmol/L Potassium 3.8 (3.4-5.0) mmol/L Chloride 101 (98-107) mmol/L Carbon Dioxide 20 L (22-30) mmol/L Anion Gap 8 (4-12) mmol/L BUN 14 (9-20) mg/dL Creatinine 1.28 (0.7-1.3) mg/dL Estim Creat Clear Calc 69 ml/min Estimated GFR 58 L (59 - ) Glucose > 625 H* (65-110) mg/dL POC Capillary Glucose > 450 H (65-105) mg/dl Calculated Osmolality 298 H (285-295) mOsm/kg Lactic Acid 2.9 H (0.4-2.0) mmol/L Calcium 8.5 (8.4-10.2) mg/dL Total Bilirubin 0.4 (0.2-1.3) mg/dL AST 28 (17-59) U/L ALT 34 (6-50) U/L Alkaline Phosphatase 108 (38-126) U/L Troponin I < 0.012 (0.000-0.034) ng/mL Total Protein 5.9 L (6.3-8.2) g/dL Albumin 3.9 (3.5-5.1) g/dL Lipase 148 (23-300) U/L Urine Color Light yellow (Yellow) Urine Appearance Clear (Clear) Urine pH 6.0 (5.0-8.0) Ur Specific Curtis <= 1.005 L (1.010-1.020) Urine Protein Negative (Negative) Urine Glucose (UA) 3+ H (Negative) Urine Ketones Negative (Negative) Ur Blood (Man) Negative (Negative) Urine Nitrate Negative (Negative) Urine Bilirubin Negative (Negative) Urine Urobilinogen 0.2 (0.2-1.0) mg/dL Leukocyte Esterase Rfl Negative (Negative) MAXWELL/UL 01/14/25 01/14/25 01/14/25 Range/Units 20:48 21:36 21:44 WBC (4.8-10.8) K/mm3 RBC (4.70-6.10) M/mm3 Hgb (14.0-18.0) g/dL Hct (40.0-54.0) % MCV (78.0-102.0) fL MCH (27.0-31.0) pg MCHC (32-36) g/dL RDW (11.6-14.4) % Plt Count (150-420) K/mm3 MPV (8.7-11.0) fl Immature Gran % (Auto) (0.0-0.0) % Neut % (Auto) (50.0-70.0) % Lymph % (Auto) (18.0-42.0) % [place] % (Auto) (2.0-11.0) % Eos % (Auto) (1.0-6.0) % Baso % (Auto) (0.0-1.0) % Lymph # (Auto) (1.10-4.50) K/mm3 [place] # (Auto) (0.10-0.90) K/mm3 Eos # (Auto) (0.02-0.50) K/mm3 Baso # (Auto) (0.00-0.10) K/mm3 Abs Immat Gran (auto) (0.00-0.00) K/mm3 Absolute Neuts (auto) (1.70-7.20) K/mm3 Absolute Nucleated RBC (0.00-0.00) K/mm3 Nucleated RBC % (0-0.0) % Sodium (137-145) mmol/L Potassium (3.4-5.0) mmol/L Chloride (98-107) mmol/L Carbon Dioxide (22-30) mmol/L Anion Gap (4-12) mmol/L BUN (9-20) mg/dL Creatinine (0.7-1.3) mg/dL Estim Creat Clear Calc ml/min Estimated GFR (59 - ) Glucose (65-110) mg/dL POC Capillary Glucose 375 H 338 H (65-105) mg/dl Calculated Osmolality (285-295) mOsm/kg Lactic Acid 1.6 (0.4-2.0) mmol/L Calcium (8.4-10.2) mg/dL Total Bilirubin (0.2-1.3) mg/dL AST (17-59) U/L ALT (6-50) U/L Alkaline Phosphatase (38-126) U/L Troponin I (0.000-0.034) ng/mL Total Protein (6.3-8.2) g/dL Albumin (3.5-5.1) g/dL Lipase (23-300) U/L Urine Color (Yellow) Urine Appearance (Clear) Urine pH (5.0-8.0) Ur Specific Curtis (1.010-1.020) Urine Protein (Negative) Urine Glucose (UA) (Negative) Urine Ketones (Negative) Ur Blood (Man) (Negative) Urine Nitrate (Negative) Urine Bilirubin (Negative) Urine Urobilinogen (0.2-1.0) mg/dL Leukocyte Esterase Rfl (Negative) MAXWELL/UL 01/14/01/14/ Range/Units 22:37 23:30 WBC (4.8-10.8) K/mm3 RBC (4.70-6.10) M/mm3 Hgb (14.0-18.0) g/dL Hct (40.0-54.0) % MCV (78.0-102.0) fL MCH (27.0-31.0) pg MCHC (32-36) g/dL RDW (11.6-14.4) % Plt Count (150-420) K/mm3 MPV (8.7-11.0) fl Immature Gran % (Auto) (0.0-0.0) % Neut % (Auto) (50.0-70.0) % Lymph % (Auto) (18.0-42.0) % [place] % (Auto) (2.0-11.0) % Eos % (Auto) (1.0-6.0) % Baso % (Auto) (0.0-1.0) % Lymph # (Auto) (1.10-4.50) K/mm3 [place] # (Auto) (0.10-0.90) K/mm3 Eos # (Auto) (0.02-0.50) K/mm3 Baso # (Auto) (0.00-0.10) K/mm3 Abs Immat Gran (auto) (0.00-0.00) K/mm3 Absolute Neuts (auto) (1.70-7.20) K/mm3 Absolute Nucleated RBC (0.00-0.00) K/mm3 Nucleated RBC % (0-0.0) % Sodium (137-145) mmol/L Potassium (3.4-5.0) mmol/L Chloride (98-107) mmol/L Carbon Dioxide (22-30) mmol/L Anion Gap (4-12) mmol/L BUN (9-20) mg/dL Creatinine (0.7-1.3) mg/dL Estim Creat Clear Calc ml/min Estimated GFR (59 - ) Glucose (65-110) mg/dL POC Capillary Glucose 161 H 181 H (65-105) mg/dl Calculated Osmolality (285-295) mOsm/kg Lactic Acid (0.4-2.0) mmol/L Calcium (8.4-10.2) mg/dL Total Bilirubin (0.2-1.3) mg/dL AST (17-59) U/L ALT (6-50) U/L Alkaline Phosphatase (38-126) U/L Troponin I (0.000-0.034) ng/mL Total Protein (6.3-8.2) g/dL Albumin (3.5-5.1) g/dL Lipase (23-300) U/L Urine Color (Yellow) Urine Appearance (Clear) Urine pH (5.0-8.0) Ur Specific Curtis (1.010-1.020) Urine Protein (Negative) Urine Glucose (UA) (Negative) Urine Ketones (Negative) Ur Blood (Man) (Negative) Urine Nitrate (Negative) Urine Bilirubin (Negative) Urine Urobilinogen (0.2-1.0) mg/dL Leukocyte Esterase Rfl (Negative) MAXWELL/UL Discharge Plan Discharge Clinical Impression: Hyperglycemia due to type 2 diabetes mellitus Qualifiers: Diabetes mellitus long term care phlebotomist insulin use: with long term care phlebotomist use Qualified Code(s): E11.65 - Type 2 diabetes mellitus with hyperglycemia Patient Disposition: Home Condition: Stable Instructions: Antibiotic Form, Diabetic Hyperglycemia (ED), Diabetes and Exercise (ED) Patient Language: Lithuanian Prescriptions: No Action lactulose 20 gram/30 mL solution 20 g PO BID PRN (Reason: congestion) Qty: 1200 0RF glucagon 3 mg/actuation spray,non-aerosol 3 mg intranasal ONCE Qty: 2 0RF Rx Instructions: as a single dose ropinirole 2 mg tablet 2 mg PO QHS Qty: 90 3RF Jardiance 25 mg tablet 25 mg PO DAILY Qty: 14 0RF Rx Instructions: *SAMPLES GIVEN* [facility]: [id number] L: [id number] E: 07/2026 Pt given 2 boxes. #14 tablets total. Xtampza ER 9 mg cap,sprinkl,ER12hr(DONT CRUSH) 9 mg PO Q12H Qty: 14 0RF Rx Instructions: must administer with a meal/food bupropion HCl 300 mg tablet extended release 24 hr 300 mg PO QAM aripiprazole 5 mg tablet 5 mg PO DAILY venlafaxine 150 mg capsule,extended release 24hr 150 mg PO DAILY aripiprazole 20 mg tablet 20 mg PO DAILY aspirin [Adult Low Dose Aspirin] 81 mg tablet,delayed release (DR/EC) 81 mg PO DAILY oxcarbazepine 600 mg tablet 600 mg PO BID Qty: 180 0RF Linzess 290 mcg capsule 290 mcg PO DAILY Qty: 90 0RF albuterol sulfate [Ventolin HFA] 90 mcg/actuation HFA aerosol inhaler 1 inh inhalation Q4H PRN (Reason: shortness of breath or wheezing) Qty: 8.5 2RF (DME) blood-glucose meter Kit See Rx Instructions .Route Qty: 1 0RF Rx Instructions: test up to 4 times a day (DME) lancets [OneTouch UltraSoft 2 Lancet] 30 gauge misc See Rx Instructions .Route Qty: 200 0RF Rx Instructions: As directed (DME) blood-glucose meter [OneTouch Ultra2 Meter] Misc See Rx Instructions .Route Qty: 1 0RF Rx Instructions: As directed (DME) lancets [OneTouch Delica Plus Lancet] 30 gauge misc See Rx Instructions .Route Qty: 200 2RF Rx Instructions: pt may test up to 4 times a day methocarbamol 750 mg tablet See Rx Instructions .ROUTE .COMPLEX Qty: 90 0RF Dose Instruction: TAKE 1 TABLET BY MOUTH AT BEDTIME Rx Instructions: TAKE 1 TABLET BY MOUTH AT BEDTIME trazodone 100 mg tablet See Rx Instructions .ROUTE .COMPLEX Qty: 180 0RF Dose Instruction: TAKE 2 TABLETS BY MOUTH AT BEDTIME Rx Instructions: TAKE 2 TABLETS BY MOUTH AT BEDTIME hydroxyzine pamoate 25 mg capsule See Rx Instructions .ROUTE .COMPLEX Qty: 90 0RF Dose Instruction: TAKE 1 CAPSULE BY MOUTH 3 TIMES A DAY FOR NAUSEA/VOMITING Rx Instructions: TAKE 1 CAPSULE BY MOUTH 3 TIMES A DAY FOR NAUSEA/VOMITING ondansetron 4 mg tablet,disintegrating 4 mg PO Q6H PRN (Reason: nausea and vomiting) Qty: 14 0RF montelukast 10 mg tablet 10 mg PO DAILY Qty: 90 3RF (DME) Blood Glucose Test Strip See Rx Instructions .Route Qty: 100 4RF Rx Instructions: QID atorvastatin 80 mg tablet 80 mg PO DAILY Qty: 90 3RF tadalafil [Cialis] 20 mg tablet 20 mg PO DAILY PRN (Reason: sexual activity) Qty: 30 0RF Rx Instructions: administer approximately 30min before sexual activity; do not use more than 1 dose per 24hrs fluticasone propionate 50 mcg/actuation spray,suspension See Rx Instructions .ROUTE .COMPLEX Qty: 48 0RF Dose Instruction: USE 1 SPRAY INTO EACH NOSTRIL TWICE A DAY Rx Instructions: USE 1 SPRAY INTO EACH NOSTRIL TWICE A DAY gabapentin 600 mg tablet See Rx Instructions .ROUTE .COMPLEX Qty: 360 0RF Dose Instruction: TAKE 1 TABLET BY MOUTH FOUR TIMES A DAY Rx Instructions: TAKE 1 TABLET BY MOUTH FOUR TIMES A DAY fluticasone propion-salmeterol 500-50 mcg/dose blister with device See Rx Instructions .ROUTE .COMPLEX Qty: 60 0RF Dose Instruction: INHALE 1 PUFF IN MORNING AND 1 PUFF AT BEDTIME Rx Instructions: INHALE 1 PUFF IN MORNING AND 1 PUFF AT BEDTIME omeprazole 20 mg capsule,delayed release(DR/EC) See Rx Instructions .ROUTE .COMPLEX Qty: 180 0RF Dose Instruction: TAKE 1 CAPSULE BY MOUTH TWICE A DAY Rx Instructions: TAKE 1 CAPSULE BY MOUTH TWICE A DAY metoprolol succinate 25 mg tablet extended release 24 hr See Rx Instructions .ROUTE .COMPLEX Qty: 180 2RF Dose Instruction: TAKE 2 TABLETS BY MOUTH EVERY DAY Rx Instructions: TAKE 2 TABLETS BY MOUTH EVERY DAY fosinopril 40 mg tablet See Rx Instructions .ROUTE .COMPLEX Qty: 90 0RF Dose Instruction: TAKE 1 TABLET BY MOUTH EVERY DAY Rx Instructions: TAKE 1 TABLET BY MOUTH EVERY DAY torsemide 20 mg tablet See Rx Instructions .ROUTE .COMPLEX Qty: 90 1RF Dose Instruction: TAKE 1 TABLET EVERY MORNING Rx Instructions: TAKE 1 TABLET EVERY MORNING betamethasone valerate 0.1 % cream 1 applic topical BID PRN (Reason: rash) Qty: 45 0RF Eliquis 5 mg tablet See Rx Instructions .ROUTE .COMPLEX Qty: 180 1RF Dose Instruction: TAKE 1 TABLET BY MOUTH TWICE A DAY Rx Instructions: TAKE 1 TABLET BY MOUTH TWICE A DAY Follow-up/Referrals: Tad Mcintosh DO [Primary Care Provider] - Time of Disposition: 23:36
--- OUTSIDE RECORDS SUMMARY | 2025-01-14 18:59 | XMS_ITS | Encounter Summary ---
Author Organization [facility] Address [address] [place] [address] Phone Care Team Providers Care Morgue Keeper Name Role Phone Jabier Peck MD Primary Care Provider [phone] Srikanth Adrian MD Unavailable Tad Romero MD Primary Care Provider [phone] Gloria Martinez MD Unavailable [phone] Reason for Visit * Reason Comments Medication Refill Encounter Details Date Type Department Care Team (Late st Contact Info) Description 05/14/2022 Refill [facility] [address] [place] [address] Jabier Peck MD #[address] [address] Medication Refill Social History Tobacco Use Types [...] CDT Gender Identity Male 05/03/2023 12:44 PM OFFICE CHAIR ASSEMBLER Sexual Orientation Lesbian or Wolff 05/03/2023 12 :44 PM OFFICE CHAIR ASSEMBLER COVID-19 Exposure Response Date Recorded In the last 10 days, have yo u been in contact with someone who was confirmed or suspected to have Coronavirus/COVID-19? No / Unsure 05/10/2022 2:32 PM OFFICE CHAIR ASSEMBLER documented as of this encounter Miscellaneous Notes * Telephone Encounter - Anjali Hartley RN - 05/15/2022 9:34 AM OFFICE CHAIR ASSEMBLER PDMP 04/18/2022 #45, 15 day supply. Medication [...] 90 days and meeting all other requirements CE CHAIR ASSEMBLER documented in this encounter Plan of Treatment Not on file documented as of this encounter Visit Diagnoses Diagnosis Cervical radiculopathy Brachial neuritis or radiculitis nos documented in this encounter Additional Health Concerns Infection Onset Date Last Indicated Resolved Time COVID - 19 Confirmed 05/31/2022 05/31/2022 023 12:16 AM OFFICE CHAIR ASSEMBLER Respiratory Rule Out - RPA 02/26/2023 02/26/2023 0 02/26/2023 11:31 AM CDT COVID - 19 02/26/2023 02/26/2023 03/08/2023 12:1 6 AM CDT documented as of this encounter Care Teams Morgue Keeper Relationship Specialty Start Date End Date Jabier Peck MD #2 [facility] [address] [place] [address] PCP - General Family Medicine 06/22/20 01/16/24 Tad Mcintosh MD [address] [place] [address] PCP - General Family Medicine 01/17/24 Srikanth Adrian MD #2 [facility] [address] [place] [address] [place] Cardiovascular Disease - Cardiology 02/02/22 08/06/24 Gloria Martinez MD #2 [facility] [address] [place] [address] Consulting Physician Urology 04/30/24 documented as of this encounter
--- OUTSIDE RECORDS SUMMARY | 2025-01-14 18:59 | XMS_ITS | Encounter Summary ---
Author Organization [facility] Address [address] [place] [address] Phone Care Team Providers Care Engagement Lead Name Role Phone Jabier Peck MD Primary Care Provider [phone] Srikanth Adrian MD Unavailable Tad Romero MD Primary Care Provider [phone] Gloria Martinez MD Unavailable [phone] Reason for Visit * Reason Comments Medication Refill Encounter Details Date Type Department Care Team (Late st Contact Info) Description 06/12/2022 Refill 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 Yes 05/31/2022 2:12 PM CUTTER GRINDER OPERATOR documented as of this encounter Miscellaneous Notes * Telephone Encounter - Anjali Hartley RN - 06/13/2022 11:16 AM CUTTER GRINDER OPERATOR Medication warning. Per nursing clinical judgement, provider [...] days and meeting all other requirements ER GRINDER OPERATOR documented in this encounter Plan of Treatment Not on file documented as of this encounter Visit Diagnoses Not on filedocumented in this encounter Additional Health Concerns Infection Onset Date Last Indicated Resolved Time COVID - 19 Confirmed 05/31/2022 05/31/2022 023 12:16 AM CUTTER GRINDER OPERATOR Respiratory Rule Out - RPA 02/26/2023 02/26/2023 0 02/26/2023 11:31 AM CDT COVID - 19 02/26/2023 02/26/2023 03/08/2023 12:1 6 AM CDT documented as of this encounter Care Teams Engagement Lead Relationship Specialty Start Date End Date Jabier Peck MD #2 [facility] [address] [place] [address] PCP - General Family Medicine 06/22/20 01/16/24 Tad Mcintosh MD [address] [place] [id number] PCP - General Family Medicine 01/17/24 Srikanth Adrian MD #2 [facility] [address] [place] [address] Office Runner Cardiovascular Disease - Cardiology 02/02/22 08/06/24 Gloria Martinez MD #[address] [facility] [address] [place] [address] Consulting Physician Urology 04/30/24 documented as of this encounter
--- OUTSIDE RECORDS SUMMARY | 2025-01-14 18:59 | XMS_ITS | Encounter Summary ---
Author Organization [facility] Address [address] [facility] [place] [address] Phone Care Team Providers Care Hose Sprayer Name Role Phone Srikanth Adrian MD Unavailable Tad Romero MD Primary Care Provider [phone] Gloria Martinez MD Unavailable [phone] Reason for Visit * Reason Comments Medication Refill Encounter Details Date Type Department Care Team (Late st Contact Info) Description 03/29/2024 Refill [facility] - Family Medicine [facility] #2 [place] [id number] Kishore Prieto, JOYA, CREDIT REPRESENTATIVE #[address] [address] Medication Refill Social History Tobacco Use Types [...] CDT Gender Identity Male 05/03/2023 12:44 PM COAT PADDER Sexual Orientation Lesbian or Wolff 05/03/2023 12 :44 PM COAT PADDER documented as of this encounter Miscellaneous Notes * Telephone Encounter - Cristine Preston RN - 03/30/2024 1:22 PM CDT PCP: Tad Mcintosh MD documented in this encounter Plan of Treatment Not on file documented as of this encounter Visit Diagnoses Not on filedocumented in this encounter Care Teams Hose Sprayer Relationship Specialty Start Date End Date Tad Mcintosh MD [address] [place] [address] PCP - General Family Medicine 01/17/24 Srikanth Adrian MD Reinforcer Cardiovascular Disease - Cardiology 02/02/22 08/06/24 Gloria Martinez MD #[address] [address] Consulting Physician Urology 04/30/24 documented as of this encounter
--- OUTSIDE RECORDS SUMMARY | 2025-01-14 18:59 | XMS_ITS | Encounter Summary ---
Author Organization [facility] Address [address] [facility] [address] Phone Care Team Providers Care Senior Java Engineer Name Role Phone Jabier Peck MD Primary Care Provider + [phone] Srikanth Adrian MD Unavailable Tad Romero MD Primary Care Provider [phone] Gloria Martinez MD Unavailable [phone] Reason for Visit * Reason Comments Medication Refill Encounter Details Date Type Department Care Team (Late st Contact Info) Description 08/01/2023 Refill [facility] #2 [place] [address] Jabier Peck MD #[address] [address] Medication Refill Social History Tobacco Use Types [...] CDT Gender Identity Male 05/03/2023 12:44 PM FLOOR SCRUBBER Sexual Orientation Lesbian or Wolff 05/03/2023 12 :44 PM FLOOR SCRUBBER documented as of this encounter Miscellaneous Notes [...] Passed - Active short-acting beta agonist prescription R SCRUBBER documented in this encounter Plan of Treatment Not on file documented as of this encounter Visit Diagnoses Not on filedocumented in this encounter Care Teams Senior Java Engineer Relationship Specialty Start Date End Date Jabier Peck MD #2 [facility] [address] [place] [address] PCP - General Family Medicine 06/22/20 01/16/24 Tad Mcintosh MD [address] [place] [address] PCP - General Family Medicine 01/17/24 Srikanth Adrian MD #2 [facility] [address] [place] [address] Data Technical Lead Cardiovascular Disease - Cardiology 02/02/22 08/06/24 Gloria Martinez MD #2 [facility] [address] [place] [address] Consulting Physician Urology 04/30/24 documented as of this encounter
--- OUTSIDE RECORDS SUMMARY | 2025-01-14 18:59 | XMS_ITS | Encounter Summary ---
Author Organization [facility] Address [address] [facility] [place] [address] Phone Care Team Providers Care Automotive Parts Counter Associate Name Role Phone Jabier Peck MD Primary Care Provider + [phone] Srikanth Adrian MD Unavailable Tad Romero MD Primary Care Provider [phone] Gloria Martinez MD Unavailable [phone] Reason for Visit * Reason Comments Medication Refill Encounter Details Date Type Department Care Team (Late st Contact Info) Description 05/11/2021 Refill [facility] Family [facility] #2 [place] [address] Jabier Peck MD #[address] [address] Medication Refill Social History Tobacco Use Types [...] CDT Gender Identity Male 05/03/2023 12:44 PM FISH CUTTING MACHINE OPERATOR Sexual Orientation Lesbian or Wolff 05/03/2023 12 :44 PM FISH CUTTING MACHINE OPERATOR COVID-19 Exposure Response Date Recorded In the last month, have you been in contact with someone who was confirmed or suspected to have Coronavirus / COVID-19? No / Unsure 05/05/2021 12:33 PM FISH CUTTING MACHINE OPERATOR documented as of this encounter [...] RICHARD [facility] 10/20/20 Office Visit Jabier Pcek MD [facility] 08/20/20 Telemedicine Kishore Prieto APRN, RICHARD [facility] 08/06/20 Telemedicine Kishore Prieto APRN, ASSEMBLER DRY CELL AND BATTERY [facility] 06/22/20 Office Visit Kishore Prieto APRN, ASSEMBLER DRY CELL AND BATTERY [facility] Showing recent visits within past 365 days and meeting all other requirements Future Appointments Date Type Provider Dept 08/01/21 Appointment Jabier Peck MD [facility] Showing future appointments within next 90 days and meeting all other requirements CUTTING MACHINE OPERATOR documented in this encounter Plan of Treatment Not on file documented as of this encounter Visit Diagnoses Diagnosis Cervical radiculopathy Brachial neuritis or radiculitis nos documented in this encounter Additional Health Concerns Infection Onset Date Last Indicated Resolved Time COVID - 19 Confirmed 05/31/2022 05/31/2022 023 12:16 AM FISH CUTTING MACHINE OPERATOR Respiratory Rule Out - RPA 02/26/2023 02/26/2023 0 02/26/2023 11:31 AM CDT COVID - 19 02/26/2023 02/26/2023 03/08/2023 12:1 6 AM CDT documented as of this encounter Care Teams Automotive Parts Counter Associate Relationship Specialty Start Date End Date Jabier Peck MD #2 [facility] [address] [place] [address] PCP - General Family Medicine 06/22/20 01/16/24 Tad Mcintosh MD [address] [place] [address] PCP - General Family Medicine 01/17/24 Srikanth Adrian MD #2 [facility] [address] [place] [address] Emulsion Operator Cardiovascular Disease - Cardiology 02/02/22 08/06/24 Gloria Martinez MD #2 [facility] [address] [place] [address] Consulting Physician Urology 04/30/24 documented as of this encounter
--- OUTSIDE RECORDS SUMMARY | 2025-01-14 18:59 | XMS_ITS | Encounter Summary ---
Author Organization [facility] Address [address] [place] [place] [address] Phone Care Team Providers Care Metal Dresser Name Role Phone Jabier Pekc MD Primary Care Provider [phone] Srikanth Adrian MD Unavailable Tad Romero MD Primary Care Provider [phone] Gloria Martinez MD Unavailable [phone] Reason for Visit * Reason Onset Date Comments Medication Refill 03/23/2021 Encounter Details Date Type Department Care Team (Late st Contact Info) Description 03/23/2021 Refill [facility] - Family Medicine [facility] #2 [place] [address] Jabier Peck MD #[address] [address] Medication Refill Social History Tobacco Use Types [...] CDT Gender Identity Male 05/03/2023 12:44 PM TRANSPORTATION AIDE Sexual Orientation Lesbian or Wolff 05/03/2023 12 :44 PM TRANSPORTATION AIDE COVID-19 Exposure Response Date Recorded In [...] Outpatient Visits 1 week ago Cervical radiculopathy [facility] - Kishore Alonso APN, SAND MILL OPERATOR 4 months ago Dermatitis [facility] - Kishore Alonso APN, SAND MILL OPERATOR 5 months ago Diet-controlled diabetes mellitus (HCC) [facility] - Jabier Aldridge MD 7 months ago Thrombophilia (HCC) [facility] - Kishore Alonso APN, SAND MILL OPERATOR 7 months ago Obstructive sleep apnea syndrome [facility] [place] APN, SAND MILL OPERATOR Upcoming Appointments Future Appointments Tomorrow [facility] RESP ROOM1 [facility] Respiratory Therapy, [facility] In 1 week Sofy Bowen, PT [facility]hab at [facility], [facility] In 2 weeks Jabier Peck MD [facility] In 1 month Aria Delong APN, QUARTER SUPERVISOR [facility] Neurology [facility] In 5 Jt Gupta MD [facility] Oncology Services, [facility] PIPE CUTTER - Recent and Past Visits Recent Visits Date Type Provider Dept 03/16/21 Office Visit Kishore Prieto APN, RICHARD [facility] 11/16/20 Office Visit Kishore Prieto APN, RICHARD [facility] 10/20/20 Office Visit Jabier Peck MD [facility] 08/20/20 Telemedicine Kishore Prieto APN, RICHARD [facility] 08/06/20 Telemedicine Kishore Prieto APN, RICHARD [facility] 06/22/20 Office Visit Kishore Prieto APN, SAND MILL OPERATOR [facility] Showing recent visits within past 460 days with a meds authorizing provider and meeting all other requirements Future Appointments Date Type Provider Dept 04/08/21 Appointment Jabier Peck MD [facility] [place] Showing future appointments within next 90 [...] 19 Confirmed 05/31/2022 05/31/2022 023 12:16 AM TRANSPORTATION AIDE Respiratory Rule Out - RPA 02/26/2023 02/26/2023 0 02/26/2023 11:31 AM CDT COVID - 19 02/26/2023 02/26/202303/0803/08/2023 12:1 6 AM CDT documented as of this encounter Care Teams Metal Dresser Relationship Specialty Start Date End Date Jabier Peck MD #2 [facility] [address] [place] [address] PCP - General Family Medicine 06/22/20 01/16/24 Tad Mcintosh MD [address] [place] [address] PCP - General Family Medicine 01/17/24 Srikanth Adrian MD #[address] [address] Ski Top Trimmer Cardiovascular Disease - Cardiology 02/02/22 08/06/24 Gloria Martinez MD #[address] [address] Consulting Physician Urology 04/30/24 documented as of this encounter
--- OUTSIDE RECORDS SUMMARY | 2025-01-14 18:59 | XMS_ITS | Encounter Summary ---
Author Organization [facility] Address [address] [facility] [place] [address] Phone Care Team Providers Care Family And Marriage Counsellor Name Role Phone Jabier Peck MD Primary Care Provider + [phone] Srikanth Adrian MD Unavailable Tad Romero MD Primary Care Provider [phone] Gloria Martinez MD Unavailable [phone] Reason for Visit * Reason Comments Medication Refill Encounter Details Date Type Department Care Team (Late st Contact Info) Description 07/20/2021 Refill [facility] #2 [place] [address] Jabier Peck MD #[address] [address] Medication Refill Social History Tobacco Use Types [...] CDT Gender Identity Male 05/03/2023 12:44 PM ENGINEER AND GEOLOGIST Sexual Orientation Lesbian or Wolff 05/03/2023 12 :44 PM ENGINEER AND GEOLOGIST COVID-19 Exposure Response Date Recorded In the last month, have you been in contact with someone who was confirmed or suspected to have Coronavirus / COVID-19? No / Unsure 07/14/2021 12:17 PM ENGINEER AND GEOLOGIST documented as of this encounter Miscellaneous Notes [...] [facility] 08/06/20 Telemedicine Kishore Prieto APRN, PEOPLESOFT BUSINESS ANALYST [facility] Showing recent visits within past 365 days and meeting all other requirements Future Appointments Date Type Provider Dept 08/01/21 Appointment Jabier Peck MD [facility] Showing future appointments within next 90 days and meeting all other requirements NEER AND GEOLOGIST documented in this encounter Plan of Treatment Not on file documented as of this encounter Visit Diagnoses Diagnosis Cervical radiculopathy Brachial neuritis or radiculitis nos documented in this encounter Additional Health Concerns Infection Onset Date Last Indicated Resolved Time COVID - 19 Confirmed 05/31/2022 05/31/2022 023 12:16 AM ENGINEER AND GEOLOGIST Respiratory Rule Out - RPA 02/26/2023 02/26/2023 0 02/26/2023 11:31 AM CDT COVID - 19 02/26/2023 02/26/2023 03/08/2023 12:1 6 AM CDT documented as of this encounter Care Teams Family And Marriage Counsellor Relationship Specialty Start Date End Date Jabier Peck MD #2 [facility] [address] [place] [address] PCP - General Family Medicine 06/22/20 01/16/24 Tad Mcintosh MD [address] [place] [address] PCP - General Family Medicine 01/17/24 Srikanth Adrian MD #2 [facility] [address] [place] [address] Test Center Administrator Cardiovascular Disease - Cardiology 02/02/22 08/06/24 Gloria Martinez MD #2 [facility] [address] [place] [address] Consulting Physician Urology 04/30/24 documented as of this encounter
--- OUTSIDE RECORDS SUMMARY | 2025-01-14 18:59 | XMS_ITS | Encounter Summary ---
Author Organization [facility] Address [address] [facility] [place] [address] Phone Care Team Providers Care Sewer Contractor Name Role Phone Jabier Peck MD Primary Care Provider + [phone] Srikanth Adrian MD Unavailable Tad Romero MD Primary Care Provider [phone] Gloria Martinez MD Unavailable [phone] Encounter Details Date Type Department Care Team (Late st Contact Info) Description 03/21/2023 Telephone [facility] [address] [place] [address] Jabier Peck MD #[address] [address] Social History Tobacco Use Types Packs/Day Years [...] CDT Gender Identity Male 05/03/2023 12:44 PM PLEATING SUPERVISOR Sexual Orientation Lesbian or Wolff 05/03/2023 12 :44 PM PLEATING SUPERVISOR COVID-19 Exposure Response Date Recorded In [...] on filedocumented in this encounter Care Teams Sewer Contractor Relationship Specialty Start Date End Date Jabier Peck MD #2 [facility] [address] [place] [address] PCP - General Family Medicine 06/22/20 01/16/24 Tad Mcintosh MD [address] [place] [address] PCP - General Family Medicine 01/17/24 Srikanth Adrian MD #2 [facility] [address] [place] [address] Coater Brake Linings Cardiovascular Disease - Cardiology 02/02/22 08/06/24 Gloria Martinez MD #2 [facility] [address] [place] [address] Consulting Physician Urology 04/30/24 documented as of this encounter
--- OUTSIDE RECORDS SUMMARY | 2025-01-14 18:59 | XMS_ITS | Encounter Summary ---
Author Organization [facility] Address [address] [facility] [place] [address] Phone Care Team Providers Care Electrical Mechanical Technician Name Role Phone Jabier Peck MD Primary Care Provider + [phone] Srikanth Adrian MD Unavailable Tad Romero MD Primary Care Provider [phone] Gloria Martinez MD Unavailable [phone] Reason for Visit * Reason Comments Medication Refill Encounter Details Date Type Department Care Team (Late st Contact Info) Description 06/20/2022 Refill [facility] #2 [place] [address] Jabier Peck MD #[address] [address] Medication Refill Social History Tobacco Use Types [...] CDT Gender Identity Male 05/03/2023 12:44 PM CAFE ATTENDANT Sexual Orientation Lesbian or Wolff 05/03/2023 12 :44 PM CAFE ATTENDANT COVID-19 Exposure Response Date Recorded In the last 10 days, have yo u been in contact with someone who was confirmed or suspected to have Coronavirus/COVID-19? Yes 05/31/2022 2:12 PM CAFE ATTENDANT documented as of this encounter Miscellaneous [...] 90 days and meeting all other requirements ATTENDANT documented in this encounter Plan of Treatment Not on file documented as of this encounter Visit Diagnoses Diagnosis Cervical radiculopathy Brachial neuritis or radiculitis nos documented in this encounter Additional Health Concerns Infection Onset Date Last Indicated Resolved Time COVID - 19 Confirmed 05/31/2022 05/31/2022 023 12:16 AM CAFE ATTENDANT Respiratory Rule Out - RPA 02/26/2023 02/26/2023 0 02/26/2023 11:31 AM CDT COVID - 19 02/26/2023 02/26/2023 03/08/2023 12:1 6 AM CDT documented as of this encounter Care Teams Electrical Mechanical Technician Relationship Specialty Start Date End Date Jabier Peck MD #2 [facility] [address] [place] [address] PCP - General Family Medicine 06/22/20 01/16/24 Tad Mcintosh MD [address] [place] [address] PCP - General Family Medicine 01/17/24 Srikanth Adrian MD #2 [facility] [address] [place] [address] Refrigeration Engine Operator Cardiovascular Disease - Cardiology 02/02/22 08/06/24 Gloria Martinez MD #2 [facility] [address] [place] [address] Consulting Physician Urology 04/30/24 documented as of this encounter
--- OUTSIDE RECORDS SUMMARY | 2025-01-14 18:59 | XMS_ITS | Encounter Summary ---
Author Organization [facility] Address [address] [facility] [place] [address] Phone Care Team Providers Care Room Service Supervisor Name Role Phone Jabier Peck MD Primary Care Provider + [phone] Srikanth Adrian MD Unavailable Tad Romero MD Primary Care Provider [phone] Gloria Martinez MD Unavailable [phone] Reason for Visit * Reason Comments Medication Refill Encounter Details Date Type Department Care Team (Late st Contact Info) Description 04/11/2021 Refill [facility] #2 [place] [address] Kishore Prieto, MERCHANDISER, DIRECTOR AGENCY & STRATEGIC PARTNERSHIPS #[address] [address] Medication Refill Social History Tobacco Use Types [...] CDT Gender Identity Male 05/03/2023 12:44 PM BULK MAIL CLERK Sexual Orientation Lesbian or Wolff 05/03/2023 12 :44 PM BULK MAIL CLERK COVID-19 Exposure Response Date Recorded In the last month, have you been in contact with someone who was confirmed or suspected to have Coronavirus / COVID-19? No / Unsure 04/14/2021 12:48 PM CDT documented as of this encounter Miscellaneous Notes * Telephone Encounter - Sabina Holly RN - 04/12/2021 12:20 PM CDT Tonny calling in from [facility]. He is requesting to find out [...] 19 Confirmed 05/31/2022 05/31/2022 023 12:16 AM BULK MAIL CLERK Respiratory Rule Out - RPA 02/26/2023 02/26/2023 0 02/26/2023 11:31 AM CDT COVID - 19 02/26/2023 02/26/2023 03/08/2023 12:1 6 AM CDT documented as of this encounter Care Teams Room Service Supervisor Relationship Specialty Start Date End Date Jabier Peck MD #[address] [address] PCP - General Family Medicine 06/22/20 01/16/24 Tad Mcintosh MD [address] [place] [address] PCP - General Family Medicine 01/17/24 Srikanth Adrian MD #2 [facility] [address] [place] [address] Greenhouse Instructor Cardiovascular Disease - Cardiology 02/02/22 08/06/24 Gloria Martinez MD #2 [facility] [address] [place] [address] Consulting Physician Urology 04/30/24 documented as of this encounter
--- OUTSIDE RECORDS SUMMARY | 2025-01-14 18:59 | XMS_ITS | Encounter Summary ---
Author Organization [facility] Address [address] [facility] [place] [address] Phone Care Team Providers Care Telesales Specialist Name Role Phone Jabier Peck MD Primary Care Provider + [phone] Srikanth Adrian MD Unavailable Tad Romero MD Primary Care Provider [phone] Gloria Martinez MD Unavailable [phone] Reason for Visit * Reason Comments Medication Refill Encounter Details Date Type Department Care Team (Late st Contact Info) Description 06/21/2022 Refill [facility] #2 [place] [address] Jabier Peck MD #[address] [address] Medication Refill Social History Tobacco Use Types [...] CDT Gender Identity Male 05/03/2023 12:44 PM CANDY SEPARATOR ENROBING Sexual Orientation Lesbian or Wolff 05/03/2023 12 :44 PM CANDY SEPARATOR ENROBING COVID-19 Exposure Response Date Recorded In the last 10 days, have yo u been in contact with someone who was confirmed or suspected to have Coronavirus/COVID-19? Yes 05/31/2022 2:12 PM CANDY SEPARATOR ENROBING documented as of this encounter Miscellaneous Notes * Telephone Encounter - Libertad Shearer RN - 06/21/2022 1:33 PM CST Name from pharmacy: [facility] Will file in chart as: [facility] Caps[facility] The original prescription was discontinued on 02/24/2022 by Kishore Prieto APRN, RICHARD for thefollowing reason: Med List Clean Up. Renewing this prescription may not be appropriate. Y SEPARATOR ENROBING documented in this encounter Plan of Treatment Not on file documented as of this encounter Visit Diagnoses Not on filedocumented in this encounter Additional Health Concerns Infection Onset Date Last Indicated Resolved Time Respiratory Rule Out - RPA 02/26/2023 02/26/2023 0 02/26/2023 11:31 AM CDT COVID - 19 02/26/2023 02/26/2023 03/08/2023 12:1 6 AM CDT documented as of this encounter Care Teams Telesales Specialist Relationship Specialty Start Date End Date Jabier Peck MD #[address] [address] PCP - General Family Medicine 06/22/20 01/16/24 Tad Mcintosh MD [address] [place] [address] PCP - General Family Medicine 01/17/24 Srikanth Adrian MD #[address] [address] Care Transition Coordinator Cardiovascular Disease - Cardiology 02/02/22 08/06/24 Gloria Martinez MD #[address] [address] Consulting Physician Urology 04/30/24 documented as of this encounter
--- OUTSIDE RECORDS SUMMARY | 2025-01-14 18:59 | XMS_ITS | Encounter Summary ---
Author Organization [facility] Address [address] [facility] [place] [address] Phone Care Team Providers Care Technical Clerk Name Role Phone Jabier Peck MD Primary Care Provider + [phone] Srikanth Adrian MD Unavailable Tad Romero MD Primary Care Provider [phone] Glorai Martinez MD Unavailable [phone] Reason for Visit * Reason Comments Medication Refill Encounter Details Date Type Department Care Team (Late st Contact Info) Description 08/19/2021 Refill [facility] #2 [place] [address] Jabier Peck MD #[address] [address] Medication Refill Social History Tobacco Use Types [...] CDT Gender Identity Male 05/03/2023 12:44 PM AIR CONDITIONER INSTALLER HELPER Sexual Orientation Lesbian or Wolff 05/03/2023 12 :44 PM AIR CONDITIONER INSTALLER HELPER COVID-19 Exposure Response Date Recorded In the last month, have you been in contact with someone who was confirmed or suspected to have Coronavirus / COVID-19? No / Unsure 08/01/2021 1:35 PM AIR CONDITIONER INSTALLER HELPER documented as of this encounter Miscellaneous [...] [facility] 08/20/20 Telemedicine Kishore Prieto APRN, DESIGNER [facility] Showing recent visits within past 365 days and meeting all other requirements Future Appointments Date Type Provider Dept 10/31/21 Appointment Jabier Peck MD [facility] Showing future appointments within next 90 days and meeting all other requirements CONDITIONER INSTALLER HELPER documented in this encounter Plan of Treatment Not on file documented as of this encounter Visit Diagnoses Diagnosis Cervical radiculopathy Brachial neuritis or radiculitis nos documented in this encounter Additional Health Concerns Infection Onset Date Last Indicated Resolved Time COVID - 19 Confirmed 05/31/2022 05/31/2022 023 12:16 AM AIR CONDITIONER INSTALLER HELPER Respiratory Rule Out - RPA 02/26/2023 02/26/2023 0 02/26/2023 11:31 AM CDT COVID - 19 02/26/2023 02/26/2023 03/08/2023 12:1 6 AM CDT documented as of this encounter Care Teams Technical Clerk Relationship Specialty Start Date End Date Jabier Peck MD #2 [facility] [address] [place] [address] PCP - General Family Medicine 06/22/20 01/16/24 Tad Mcintosh MD [address] [place] [address] PCP - General Family Medicine 01/17/24 Srikanth Adrian MD #2 [facility] [address] [place] [address] Ladle Repairman Cardiovascular Disease - Cardiology 02/02/22 08/06/24 Gloria Martinez MD #2 [facility] [address] [place] [address] Consulting Physician Urology 04/30/24 documented as of this encounter
--- OUTSIDE RECORDS SUMMARY | 2025-01-14 18:59 | XMS_ITS | Encounter Summary ---
Author Organization [facility] Address [address] [facility] [place] [address] Phone Care Team Providers Care Diaper Machine Tender Name Role Phone Tad Mcintosh MD Primary Care Provider [phone] Gloria Martinez MD Unavailable [phone] Reason for Visit * Reason Comments Medication Refill Encounter Details Date Type Department Care Team (Late st Contact Info) Description 10/20/2024 Refill [facility] #2 [place] [address] Jabier Peck MD #[address] [address] Medication Refill Social History Tobacco Use Types [...] CDT Gender Identity Male 05/03/2023 12:44 PM OCCUPATIONAL PSYCHOLOGIST Sexual Orientation Lesbian or Wolff 05/03/2023 12 :44 PM OCCUPATIONAL PSYCHOLOGIST documented as of this encounter Miscellaneous Notes * Telephone Encounter - Francine Soto RN - 10/21/2024 8:22 AM CDT PCP: Tad Mcintosh MD documented in this encounter Plan of Treatment Not on file documented as of this encounter Visit Diagnoses Not on filedocumented in this encounter Care Teams Diaper Machine Tender Relationship Specialty Start Date End Date Tad Mcintosh MD [address] [place] [address] PCP - General Family Medicine 01/17/24 Gloria Martinez MD #[address] [address] Consulting Physician Urology 04/30/24 documented as of this encounter
--- OUTSIDE RECORDS SUMMARY | 2025-01-14 18:59 | XMS_ITS | Encounter Summary ---
Author Organization [facility] Address [address] [facility] [address] Phone Care Team Providers Care Clerical Office Name Role Phone Jabier Peck MD Primary Care Provider + [phone] Srikanth Adrian MD Unavailable Tad Romero MD Primary Care Provider [phone] Gloria Martinez MD Unavailable [phone] Reason for Visit * Reason Comments Medication Refill Encounter Details Date Type Department Care Team (Late st Contact Info) Description 06/16/2021 Refill [facility] #2 [place] [address] Jabier Peck MD #[address] [address] Medication Refill Social History Tobacco Use Types [...] CDT Gender Identity Male 05/03/2023 12:44 PM ROASTER OPERATOR Sexual Orientation Lesbian or Wolff 05/03/2023 12 :44 PM ROASTER OPERATOR COVID-19 Exposure Response Date Recorded In the last month, have you been in contact with someone who was confirmed or suspected to have Coronavirus / COVID-19? No / Unsure 06/16/2021 1:10 PM ROASTER OPERATOR documented as of this encounter Miscellaneous [...] Office Visit Kishore Prieto APRN, RICHARD [facility] 10/20/20 Office Visit Jabier Peck MD [facility] 08/20/20 Telemedicine Kishore Prieto APRN, RICHARD [facility] 08/06/20 Telemedicine Kishore Prieto APRN, RECOIL SPRING WINDER [facility] [place] 06/22/20 Office Visit Kishore Prieto APRN, RECOIL SPRING WINDER [facility] [place] Showing recent visits within past 365 days and meeting all other requirements Future Appointments Date Type Provider Dept 08/01/21 Appointment Jabier Peck MD [facility] Showing future appointments within next 90 days and meeting all other requirements TER OPERATOR documented in this encounter Plan of Treatment Not on file documented as of this encounter Visit Diagnoses Diagnosis Cervical radiculopathy Brachial neuritis or radiculitis nos documented in this encounter Additional Health Concerns Infection Onset Date Last Indicated Resolved Time COVID - 19 Confirmed 05/31/2022 05/31/2022 023 12:16 AM ROASTER OPERATOR Respiratory Rule Out - RPA 02/26/2023 02/26/2023 0 02/26/2023 11:31 AM CDT COVID - 19 02/26/2023 02/26/2023 03/08/2023 12:1 6 AM CDT documented as of this encounter Care Teams Clerical Office Relationship Specialty Start Date End Date Jabier Peck MD #2 [facility] [address] [place] [address] PCP - General Family Medicine 06/22/20 01/16/24 Tad Mcintosh MD [address] [place] [address] PCP - General Family Medicine 01/17/24 Srikanth Adrian MD #2 [facility] [address] [place] [address] Customer Loyalty Representative Cardiovascular Disease - Cardiology 02/02/22 08/06/24 Gloria Martinez MD #2 [facility] [address] [place] [address] Consulting Physician Urology 04/30/24 documented as of this encounter
--- OUTSIDE RECORDS SUMMARY | 2025-01-14 18:59 | XMS_ITS | Encounter Summary ---
Author Organization [facility] Address [address] [facility] [place] [address] Phone Care Team Providers Care R D Intern Name Role Phone Jabier Peck MD Primary Care Provider + [phone] Srikanth Adrian MD Unavailable Tad Romero MD Primary Care Provider [phone] Gloria Martinez MD Unavailable [phone] Reason for Visit * Reason Comments Medication Refill Encounter Details Date Type Department Care Team (Late st Contact Info) Description 03/24/2022 Refill [facility]2 [place] [address] Kishore Prieto, TOOL AND DIE MACHINIST, COUNT TEAM CLERK #[address] [address] Medication Refill Social History Tobacco Use Types [...] CDT Gender Identity Male 05/03/2023 12:44 PM SAFETY EQUIPMENT TESTING SPECIALIST Sexual Orientation Lesbian or Wolff 05/03/2023 12 :44 PM SAFETY EQUIPMENT TESTING SPECIALIST COVID-19 Exposure Response Date Recorded In [...] 19 Confirmed 05/31/2022 05/31/2022 023 12:16 AM SAFETY EQUIPMENT TESTING SPECIALIST Respiratory Rule Out - RPA 02/26/2023 02/26/2023 0 02/26/2023 11:31 AM CDT COVID - 19 02/26/2023 02/26/2023 03/08/2023 12:1 6 AM CDT documented as of this encounter Care Teams R D Intern Relationship Specialty Start Date End Date Jabier Peck MD #2 [facility] [address] [place] [address] PCP - General Family Medicine 06/22/20 01/16/24 Tad Mcintosh MD [address] [place] [address] PCP - General Family Medicine 01/17/24 Srikanth Adrian MD #2 [facility] [address] [place] [address] Photography Professor Cardiovascular Disease - Cardiology 02/02/22 08/06/24 Gloria Martinez MD #2 [facility] [address] [place] [address] Consulting Physician Urology 04/30/24 documented as of this encounter
--- OUTSIDE RECORDS SUMMARY | 2025-01-14 18:59 | XMS_ITS | Encounter Summary ---
Author Organization [facility] Address [address] [facility] [place] [address] Phone Care Team Providers Care Sliver Lapper Name Role Phone Srikanth Adrian MD Unavailable Tad Romero MD Primary Care Provider [phone] Gloria Martinez MD Unavailable [phone] Reason for Visit * Reason Comments Medication Refill Encounter Details Date Type Department Care Team (Late st Contact Info) Description 03/15/2024 Refill [facility] Medical [facility] - Family Medicine [facility] #2 [place] [id number] Kishore Prieto, JOYA, PRESCRIPTIONIST #[address] [address] Medication Refill Social History Tobacco Use Types [...] Gender Identity Male 05/03/2023 12:44 PM MANAGER MEDICARE Sexual Orientation Lesbian or Wolff 05/03/2023 12 :44 PM MANAGER MEDICARE documented as of this encounter Miscellaneous Notes * Telephone Encounter - Francine Soto RN - 03/17/2024 12:59 PM CDT PCP Tad Mcintosh MD documented in this encounter Plan of Treatment Not on file documented as of this encounter Visit Diagnoses Not on filedocumented in this encounter Care Teams Sliver Lapper Relationship Specialty Start Date End Date Tad Mcintosh MD [address] [place] [address] PCP - General Family Medicine 01/17/24 Srikanth Adrian MD Field Crops Harvest Machine Operator Cardiovascular Disease - Cardiology 02/02/22 08/06/24 Gloria Martinez MD #[address] [address] Consulting Physician Urology 04/30/24 documented as of this encounter
--- OUTSIDE RECORDS SUMMARY | 2025-01-14 18:59 | XMS_ITS | Encounter Summary ---
Author Organization [facility] Address [address] [facility] [place] [address] Phone Care Team Providers Care Telecom Field Technician Name Role Phone Jabier Kwok MD Primary Care Provider + [phone] Srikanth Adrian MD Unavailable Tad Romero MD Primary Care Provider [phone] Gloria Martinez MD Unavailable [phone] Reason for Visit * Reason Comments Medication Refill Encounter Details Date Type Department Care Team (Late st Contact Info) Description 01/23/2022 Refill [facility] #2 [place] [address] Jabier Kwok MD #[address] [address] Medication Refill Social History Tobacco Use Types [...] CDT Gender Identity Male 05/03/2023 12:44 PM HIGH SCHOOL SPECIAL EDUCATION 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 Sexual Orientation Lesbian or Wolff 05/03/2023 12 :44 PM HIGH SCHOOL SPECIAL EDUCATION TEACHER COVID-19 Exposure Response Date Recorded In [...] 03/16/21 Office Visit Kishore Prieto APRN, RICHARD [facility] [place] Showing recent visits within past 365 days and meeting all other requirements Future Appointments Date Type Provider Dept 01/31/22 Appointment Kishore Prieto APRN, RICHARD [facility] [place] Showing future appointments within next 90 [...] [facility] 04/29/21 Office Visit [facility]ier [facility] Showing recent visits within past 270 days and meeting all other requirements Future Appointments Date Type Provider Dept 01/31/22 Appointment Kishore Prieto APRN, HEALTH EDUCATION SPECIALIST [facility] Showing future appointments within next [...] 19 Confirmed 05/31/2022 05/31/2022 023 12:16 AM HIGH SCHOOL SPECIAL EDUCATION TEACHER Respiratory Rule Out - RPA 02/26/2023 02/26/2023 0 02/26/2023 11:31 AM CDT COVID - 19 02/26/2023 02/26/2023 03/08/2023 12:1 6 AM CDT documented as of this encounter Care Teams Telecom Field Technician Relationship Specialty Start Date End Date Jabier Kwok MD #[address] [address] PCP - General Family Medicine 06/22/20 01/16/24 Tad Mcintosh MD [address] [place] [address] PCP - General Family Medicine 01/17/24 Srikanth Adrian MD #2 [facility] [address] [place] [address] Ruffling Hemmer Automatic Cardiovascular Disease - Cardiology 02/02/22 08/06/24 Gloria Martinez MD #2 [facility] [address] [place] [address] Consulting Physician Urology 04/30/24 documented as of this encounter
--- OUTSIDE RECORDS SUMMARY | 2025-01-14 18:59 | XMS_ITS | Encounter Summary ---
Author Organization [facility] Address [address] [facility] [place] [address] Phone Care Team Providers Care Psychologist Educational Name Role Phone Jabier Peck MD Primary Care Provider + [phone] Srikanth Adrian MD Unavailable Tad Romero MD Primary Care Provider [phone] Gloria Martinez MD Unavailable [phone] Reason for Visit * Reason Comments Medication Refill Encounter Details Date Type Department Care Team (Late st Contact Info) Description 10/21/2021 Refill [facility] #2 [place] [address] Jabier Peck MD #[address] [address] Medication Refill Social History Tobacco Use Types [...] Gender Identity Male 05/03/2023 12:44 PM WINDOWS SYSTEM ADMIN Sexual Orientation Lesbian or Wolff 05/03/2023 12 :44 PM WINDOWS SYSTEM ADMIN documented as of this encounter Miscellaneous [...] Confirmed 05/31/2022 05/31/2022 023 12:16 AM WINDOWS SYSTEM ADMIN Respiratory Rule Out - RPA 02/26/2023 02/26/2023 0 02/26/2023 11:31 AM CDT COVID - 19 02/26/2023 02/26/2023 03/08/2023 12:1 6 AM CDT documented as of this encounter Care Teams Psychologist Educational Relationship Specialty Start Date End Date Jabier Peck MD #2 [facility] [address] [place] [address] PCP - General Family Medicine 06/22/20 01/16/24 Tad Mcintosh MD [address] [place] [address] PCP - General Family Medicine 01/17/24 Srikanth Adrian MD #2 [facility] [address] [place] [address] Asphalt Plant Operator Cardiovascular Disease - Cardiology 02/02/22 08/06/24 Gloria Martinez MD #[address] [facility] [address] [place] [address] Consulting Physician Urology 04/30/24 documented as of this encounter
--- OUTSIDE RECORDS SUMMARY | 2025-01-14 18:59 | XMS_ITS | Encounter Summary ---
Author Organization [facility] Address [address] [facility] [place] [address] Phone Care Team Providers Care Inspector Welded Parts Name Role Phone Jabier Peck MD Primary Care Provider + [phone] Srikanth Adrian MD Unavailable Tad Romero MD Primary Care Provider [phone] Gloria Martinez MD Unavailable [phone] Reason for Visit * Reason Comments Medication Refill Encounter Details Date Type Department Care Team (Late st Contact Info) Description 02/27/2023 Refill [facility] #2 [place] [address] Jabier Peck MD #[address] [address] Medication Refill Social History Tobacco Use Types [...] Gender Identity Male 05/03/2023 12:44 PM SALES AGENT PROTECTIVE SERVICE Sexual Orientation Lesbian or Wolff 05/03/2023 12 :44 PM SALES AGENT PROTECTIVE SERVICE COVID-19 Exposure Response Date Recorded In the [...] documented as of this encounter Care Teams Inspector Welded Parts Relationship Specialty Start Date End Date Jabier Peck MD #[address] [address] PCP - General Family Medicine 06/22/20 01/16/24 Tad Mcintosh MD [address] [place] [address] PCP - General Family Medicine 01/17/24 Srikanth Adrian MD #[address] [address] Venue Manager Cardiovascular Disease - Cardiology 02/02/22 08/06/24 Gloria Martinez MD #[address] [address] Consulting Physician Urology 04/30/24 documented as of this encounter
--- OUTSIDE RECORDS SUMMARY | 2025-01-14 18:59 | XMS_ITS | Encounter Summary ---
Author Organization [facility] Address [address] [facility] [address] Phone Care Team Providers Care Acoustical Tile Drill Press Operator Name Role Phone Jabier Peck MD Primary Care Provider + [phone] Srikanth Adrian MD Unavailable Tad Romero MD Primary Care Provider [phone] Gloria Martinez MD Unavailable [phone] Reason for Visit * Reason Comments Medication Refill Encounter Details Date Type Department Care Team (Late st Contact Info) Description 02/22/2022 Refill [facility] #2 [place] [address] Jabier Peck MD #[address] [address] Medication Refill Social History Tobacco Use Types [...] CDT Gender Identity Male 05/03/2023 12:44 PM APPRENTICESHIP TRAINING REPRESENTATIVE Sexual Orientation Lesbian or Wolff 05/03/2023 12 :44 PM APPRENTICESHIP TRAINING REPRESENTATIVE COVID-19 Exposure Response Date Recorded In [...] 03/16/21 Office Visit Kishore Prieto APRN, RICHARD [facility] Showing recent visits within past 365 days and meeting all other requirements Future Appointments Date Type Provider Dept 02/24/22 Appointment Kishore Prieto APRN, IRCHARD [facility] Showing future appointments within next 90 days and meeting all other requirements documented in this encounter Plan of Treatment Not on file documented as of this encounter Visit Diagnoses Diagnosis Cervical radiculopathy Brachial neuritis or radiculitis nos documented in this encounter Additional Health Concerns Infection Onset Date Last Indicated Resolved Time COVID - 19 Confirmed 05/31/2022 05/31/2022 023 12:16 AM APPRENTICESHIP TRAINING REPRESENTATIVE Respiratory Rule Out - RPA 02/26/2023 02/26/2023 0 02/26/2023 11:31 AM CDT COVID - 19 02/26/2023 02/26/2023 03/08/2023 12:1 6 AM CDT documented as of this encounter Care Teams Acoustical Tile Drill Press Operator Relationship Specialty Start Date End Date Jabier Peck MD #2 [facility] [address] [place] [address] PCP - General Family Medicine 06/22/20 01/16/24 Tad Mcintosh MD [address] [place] [address] PCP - General Family Medicine 01/17/24 Srikanth Adrian MD #2 [facility] [address] [place] [address] Quality Systems Specialist Cardiovascular Disease - Cardiology 02/02/22 08/06/24 Gloria Martinez MD #2 [facility] [address] [place] [address] Consulting Physician Urology 04/30/24 documented as of this encounter
--- OUTSIDE RECORDS SUMMARY | 2025-01-14 18:59 | XMS_ITS | Encounter Summary ---
Author Organization [facility] Address [address] [facility] [place] [address] Phone Care Team Providers Care Ice Cream Man Name Role Phone Jabier Peck MD Primary Care Provider + [phone] Srikanth Adrian MD Unavailable Tad Romero MD Primary Care Provider [phone] Gloria Martinez MD Unavailable [phone] Reason for Visit * Reason Onset Date Comments Medication Refill 03/28/2021 Encounter Details Date Type Department Care Team (Late st Contact Info) Description 03/28/2021 Refill [facility] - Family Medicine [facility] #2 [place] [address] Jabier Peck MD #[address] [address] Medication Refill Social History Tobacco Use Types [...] CDT Gender Identity Male 05/03/2023 12:44 PM REHAB PHYSICIAN Sexual Orientation Lesbian or Wolff 05/03/2023 12 :44 PM REHAB PHYSICIAN COVID-19 Exposure Response Date Recorded In the [...] Dept 03/16/21 Office Visit Kishore Prieto APN, ROLLER INSPECTOR AND MENDER [facility] 11/16/20 Office Visit Kishore Prieto APN, ROLLER INSPECTOR AND MENDER [facility] 10/20/20 Office Visit [facility] [place] 08/20/20 Telemedicine Kishore Prieto APN, RICHARD [facility] 08/06/20 Telemedicine Kishore Prieto APN, ROLLER INSPECTOR AND MENDER [facility] 06/22/20 Office Visit Kishore Prieto APN, ROLLER INSPECTOR AND MENDER [facility] Showing recent visits within past 365 days and meeting all other requirements Future Appointments Date Type Provider Dept 04/08/21 Appointment Jabier Peck MD [facility] [place] Showing future appointments within next 90 days [...] 19 Confirmed 05/31/2022 05/31/2022 023 12:16 AM REHAB PHYSICIAN Respiratory Rule Out - RPA 02/26/2023 02/26/2023 0 02/26/2023 11:31 AM CDT COVID - 19 02/26/2023 02/26/2023 03/08/2023 12:1 6 AM CDT documented as of this encounter Care Teams Ice Cream Man Relationship Specialty Start Date End Date Jabier Peck MD #2 [facility] [address] [place] [address] PCP - General Family Medicine 06/22/20 01/16/24 Tad Mcintosh MD [address] [place] [address] PCP - General Family Medicine 01/17/24 Srikanth Adrian MD #2 [facility] [address] [place] [address] Traffic Engineer Cardiovascular Disease - Cardiology 02/02/22 08/06/24 Gloria Martinez MD #2 [facility] [address] [place] [address] Consulting Physician Urology 04/30/24 documented as of this encounter
--- OUTSIDE RECORDS SUMMARY | 2025-01-14 18:59 | XMS_ITS | Encounter Summary ---
Author Organization [facility] Address [address] [facility] [place] [place] [address] Phone Care Team Providers Care Construction Equipment Operator Name Role Phone Srikanth Adrian MD Unavailable Tad Romero MD Primary Care Provider [phone] Gloria Martinez MD Unavailable [phone] Reason for Visit * Reason Comments Medication Refill Encounter Details Date Type Department Care Team (Late st Contact Info) Description 05/28/2024 Refill [facility] Medical Group - Family Medicine [facility] #2 [place] [address] Jabier Peck MD #[address] [address] Medication Refill Social History Tobacco Use Types [...] CDT Gender Identity Male 05/03/2023 12:44 PM BODY PRESSER Sexual Orientation Lesbian or Wolff 05/03/2023 12 :44 PM BODY PRESSER documented as of this encounter Miscellaneous Notes * Telephone Encounter - Francine Soto RN - 05/28/2024 11:10 AM CST PCP: Tad Mcintosh MD PRESSER documented in this encounter Plan of Treatment Not on file documented as of this encounter Visit Diagnoses Not on filedocumented in this encounter Care Teams Construction Equipment Operator Relationship Specialty Start Date End Date Tad Mcintosh MD [address] [place] [address] PCP - General Family Medicine 01/17/24 Srikanth Adrian MD Casing Flusher Cardiovascular Disease - Cardiology 02/02/22 08/06/24 Gloria Martinez MD #[address] [address] Consulting Physician Urology 04/30/24 documented as of this encounter
--- OUTSIDE RECORDS SUMMARY | 2025-01-14 18:59 | XMS_ITS | Encounter Summary ---
Author Organization [facility] Address [address] [facility] [place] [address] Phone Care Team Providers Care Events Associate Name Role Phone Tad Becker MD Primary Care Provider [phone] lGoria Martinez MD Unavailable [phone] Reason for Referral * Consult, Test & Initiate Treatment (Routine) - Closed Specialty Diagnoses / Procedures Referred By Pavan chun Referred To Contact Diagnoses Type 2 diabetes mellitus treated without insulin (HCC) Collette Francois MD [address] [place] [address] Phone: tel: fax: [facility] - Endocrinology & Diabetes - [place] [address] [place] [address] Phone: tel: fax: Referral ID Status Reason Start Date Expiration Date Visits Re quested Visits Authorized [id number] Closed 01/12/2025 1 1 Scheduling Instructions Tae is being referred for management of Type 2 Diabetes Mellitus with Hyperglycemia, A1c 12.4%. Please contact patient for scheduling questions or concerns. Reason for Visit * Auth/Cert (Routine) Specialty Diagnoses / Procedures Referred By Pavan chun Referred To Contact Diagnoses Stroke (HCC) cva Collette Francois MD [address] [place] [address] Phone: tel: fax: Referral ID Status Reason Start Date Expiration Date Visits Re quested Visits Authorized [id number] 1 1 Encounter Details Date Type Department Care Team (Latest Contact Info) Description 01/10/2025 7:15 PM CDT - 01/12/2025 7:22 PM CDT Hospital Encounter [facility] Med Surg [address] [place] [phone] Collette Francois MD [address] [place], [place] [id number] Left sided numbness Discharge Disposition: Discharged to [...] any time in the past 12 m [facility], were you homeless or living in a prison (including now)? Patient declined 01/10/2025 [facility] Utilities Answer Date Recorded In the past 12 months has th rumr: turn off the lights electric, gas, oil, or water company threatened [...] CDT Gender Identity Male 05/03/2023 12:44 PM MID LEVEL PRACTITIONER Sexual Orientation Lesbian or Wolff 05/03/2023 12 :44 PM MID LEVEL PRACTITIONER documented as of this encounter Last Filed [...] Tablet 1 3 Blood Glucose Monitoring Suppl ([employer] Glucometer) w/Device Kit Use to monitor glucose [...] 5 03/16/20 25 Insulin Pen Needle (Pen Walton) 29G X 12MM Misc As instructed 100 [...] Patient went to the hospital recently in [place] and was transferred to [facility] for further care. He notes that his [...] yes PT/OT Evaluation: yes Smoking Cessation; Will school counsellor: yes Individual Modifiable Risk Factors: Hypertension: yes Hyperlipidemia: yes Diabetes: yes Atrial Fibrillation: no Tobacco: yes Past Medical History Positives Diagnosis Date Adenomatous colon polyp Anxiety Arthritis Bipolar 1 disorder, mixed, mild (HCC) CKD (chronic kidney disease) Clotting disorder (HCC) COPD (chronic obstructive pulmonary disease) ([facility]) CVA (cerebral vascular accident) ([facility]) 2004 Depression DM (diabetes mellitus) ([facility]) blood sugar has been WNL for 2 years DVT (deep venous thrombosis) ([facility]) R arm, August 2019 Empyema ([facility]) GERD (gastroesophageal reflux disease) History of pulmonary embolus (PE) 01/11/2025 HLD (hyperlipidemia) HTN (hypertension) Hx of prison use of blood thinners IBS (irritable bowel syndrome) Left sided numbness 01/11/2025 Low testosterone Lupus anticoagulant disorder ([facility]) Neuropathy Obesity MAK (obstructive sleep apnea) Pulmonary [...] ABGs: No results found for: PHARTERIAL, CO2ART, FFO1EAM, PO2ART, O2ART Lab Results Component Value Date [...] POLYP, HEMORRHOIDS; Surgeon: Nikko Galdamez DO; Location: [facility]; Service: Gastroenterology HAMMER TOE [...] use, and pt was invited to the [facility] with the next meeting [...] Tianna RN at 3:50 PM CDT via [employer] Secure Chat with Reply, SÁNCHEZ NOLEN, Typing Teacher. Discharge Milestones documented: Yes Post Acute Service [...] applicable - N/A - Medicare but Observation, [facility] Inpatient,Emergency, or Ambulatory Surgery patient class Tae [...] (HCC) CKD (chronic kidney disease) Clotting disorder ([facility]) COPD (chronic obstructive pulmonary disease) ([facility]) CVA (cerebral vascular accident) ([facility]) 2004 Depression DM (diabetes mellitus) ([facility]) blood sugar has been WNL for 2 years DVT (deep venous thrombosis) ([facility]) R arm, August 2019 Empyema ([facility]) GERD (gastroesophageal reflux disease) History of pulmonary embolus (PE) 01/11/2025 HLD (hyperlipidemia) HTN (hypertension) 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 Diabetic diet educational handout provided. Neurology consult. Suggest endocrinology and outpatient content assistant consult. PT/OT. REASSESS: 01/16/[address] * Plan of Care - Valerai Griffin, OT - 01/12/2025 12:59 PM CDT [...] stated goal: to go home Preferred Language Trinidadian Occupational Therapy Initial Evaluation Subjective: I just [...] Anxiety, Arthritis, Bipolar 1 disorder, mixed, mild ([facility]), CKD (chronic kidney disease), Clotting disorder ([facility]), COPD (chronic obstructive pulmonary disease) ([facility]), CVA (cerebral vascular accident) ([facility]) (2004), Depression, DM (diabetes mellitus) ([facility]), DVT (deep venous thrombosis) ([facility]), Empyema ([facility]), GERD (gastroesophageal reflux disease), History of pulmonary embolus (PE) (01/11/2025), HLD (hyperlipidemia), HTN (hypertension), buttermaker use of blood thinners, IBS (irritable bowel syndrome), Left sided numbness (01/11/2025), Low testosterone, Lupus anticoagulant disorder ([facility]), Neuropathy, Obesity, MAK (obstructive sleep apnea), Pulmonary emboli, Tobacco dependency, and Tongue lesion. Observations/Medical equipment/If others present in the room: Patient was seen in room. cafeteria monitor. Orientation: Patient oriented x4. Commanding: WFL Short term memory: Intact superintendent terminal memory: Intact Cognition: No further cognitive testing [...] Education provided: benefit of OT Outcome Measure: [place] AM-PAC 6 Clicks Daily Activity How much [...] videos and all your education online visit, [email or web address] or scan this QR code with your [...] Carrots. Green beans. Tomatoes. Peppers. Onions. Cucumbers. [place] sprouts. Grains Whole grains, such as whole-wheat [...] type diabetes. Find the link you need. [place] Diabetes Association: diabetes.org/food-nutrition National Cove of Diabetes and Digestive and Kidney Diseases: niddk.nih.gov This information is not intended to replace advice given to you by your health care provider. Make sure you discuss any questions you have with your health care provider. Document Released: 2006-03-01 Document Updated: 2024-05-22 Document Reviewed: 2024-05-22 [employer] Patient Education ? 2024 [employer] * Plan of Care - Sofy Lopez RN - 01/11/2025 11:57 AM CDT Day [...] Evaluation completed with: Tae Patterson Preferred Language: Trinidadian Prior to Admission Hospital Transfer: NO At [...] Provider: TAD BECKER MD PCP last seen: Patient/representative phlebotomy services cannot recall/does not know. Preferred Pharmacy(ies) Preferred Pharmacy: [id number] [place] [address] [address] [place] [address] [facility] [address] [place] [address] [address] [facility] [address] [place] [address] Coverage Information Primary Medical Coverage: Medicare C Unitedhealthcare Advantage Secondary Medical Coverage: Medicaid [place] Coverage through VA: No Additional coverage not [...] BADL personal objects within reach Taken 01/10/2025 0249 Medication Review/Management: medications reviewed Intervention: Promote Injury-Free [...] via EMS as a direct admit from [facility]. No signs of distress noted at thistime. [...] - 99 mg/dL 01/12/2025 5:02 PM CDT [facility] Blood Venipuncture / Unknown 01/12/2025 4:23 PM CDT 01/12/2025 4:30 PM CDT us Collette Francois MD CHEMISTRY ORDERABLES Final Result [facility] [address] [place] [address] * (ABNORMAL) POCT Glucose (01/12/2025 4:08 PM CDT) Only the most recent of9 resultswithin the time period is included. GLUCOSE,BEDSID E POCT 402(HH) 70 - 99 mg/dL 01/12/2025 4:13 PM CDT [facility] Comment: RN Notified TOOK RUBIN ERWIN Blood 01/12/2025 4:08 PM CDT 01/12/2025 4:13 PM CDT us None Provider POINT OF CARE TESTING Final Resu lt [facility] [address] [place] [address] * US BILATERAL CAROTID DUPLEX (01/12/2025 11:01 [...] Enrique Groves M.D. AM: AM Report ID: [id number] Reading Location: [id number] Procedure Note Enrique Groves MD - 01/12/2025 [...] Enrique Groves M.D. AM: AM Report ID: [id number] Reading Location: [id number] IMPRESSION: 1. Velocities correspond to a less [...] US. RSNA 2002 us Yissel Iniguez APRN, CLOTH PAINTER IMG US ORDERABLES Final R esult * [...] Atul Mena M.D. MM: MM Report ID: [id number] Reading Location: [id number] Procedure Note Atul Mena MD - 01/12/2025 [...] Atul Mena M.D. MM: MM Report ID: [id number] Reading Location: [id number] IMPRESSION: No acute infarction. us Yissel Iniguez APRN, CLOTH PAINTER IMG MR ORDERABLES Final R esult * [...] Arzate JR. OkeefeO.B. 1970 Patient ID (UPI) [id number] Indications: Stroke. Study Date01/12/2025 Technical quality: Poor [...] lbs. BMI (BSA) 34.91 kg/m^2 (2.22 m^2) Management And Budget Analyst Chester Merlos R Room 231-01 Interpreting Lawrence Referring Physician Tj Physician Procedure Note Tj Bravo MD - 01/12/2025 Transthoracic Echocardiography Report (TTE) Patient name DILIP Arzate JRMathieu Okeefe 1970 Patient ID (RUST) [id number] Indications: Stroke. Study Date01/12/2025 Technical quality: Poor [...] lbs. BMI (BSA) 34.91 kg/m^2 (2.22 m^2) Management And Budget Analyst Chester Merlos R Room 231-01 Interpreting Bravo Referring Physician Tj Physician us Yissel Iniguez APRN, CNP IMG ECHO ORDERABLES Edite d Result - Final * (ABNORMAL) CBC with Auto Differential (01/12/2025 4:44 AM CDT) Only the most recent of3 resultswithin the time period is included. WBC 10.97 4.00 - 12.00 10(3)/mcL 01/12/2025 5:21 AM CDT [facility] RBC 4.58 4.40 - 5.80 10(6)/mcL 01/12/2025 5:21 AM CDT [facility] HEMOGLOBIN (HGB) 14.9 13.0 - 16.5 g/dL 01/12/2025 5:21 AM CDT [facility] HEMATOCRIT (HCT) 42.7 38.0 - 50.0 % 01/12/2025 5:21 AM CDT [facility] MCV 93.2 82.0 - 96.0 fL 01/12/2025 5:21 AM CDT [facility] MCH 32.5(H) 26.0 - 32.0 pg 01/12/2025 5:21 AM CDT [facility] MCHC 34.9 31.0 - 36.0 g/dL 01/12/2025 5:21 AM CDT [facility] PLATELET COUNT 218 140 - 440 10(3)/mcL 01/12/2025 5:21 AM CDT [facility] RDW 13.3 11.8 - 15.5 % 01/12/2025 5:21 AM CDT [facility] MPV 10.7 8.0 - 12.6 fL 01/12/2025 5:21 AM CDT [facility] NEUTROPHILS 66.1 40.0 - 68.0 % 01/12/2025 5:21 AM CDT [facility] LYMPHOCYTES 25.3 19.0 - 49.0 % 01/12/2025 5:21 AM CDT [facility] MONOCYTES 3.7 3.0 - 13.0 % 01/12/2025 5:21 AM CDT [facility] EOSINOPHILS 3.3 0.0 - 8.0 % 01/12/2025 5:21 AM CDT [facility] BASOPHILS 1.1(H) 0.0 - 1.0 % 01/12/2025 5:21 AM CDT [facility] IMMATURE GRANULOCYTE 0.5(H) 0.0 - 0.4 % 01/12/2025 5:21 AM CDT [facility] Comment:Immature Granulocyte s includes Metamyelocytes, Myelocytes, and Promyelocytes. ABSOLUTE NEUTROPHILS 7.25(H) 1.40 - 5.30 10(3)/mcL 01/12/2025 5:21 AM CDT [facility] ABSOLUTE LYMPHOCYTES 2.77 0.90 - 3.30 10(3)/mcL 01/12/2025 5:21 AM CDT [facility] ABSOLUTE MONOCYTES 0.41 0.10 - 0.90 10(3)/mcL 01/12/2025 5:21 AM CDT [facility] ABSOLUTE EOSINOPHIL 0.36 0.00 - 0.50 10(3)/mcL 01/12/2025 5:21 AM CDT [facility] ABSOLUTE BASOPHILS 0.12(H) 0.00 - 0.10 10(3)/mcL 01/12/2025 5:21 AM CDT [facility] ABSOLUTE IMMATURE GRANULOCYTE 0.06(H) 0.00 - 0.03 10 (3) mcL. 01/12/2025 5:21 AM CDT [facility] NRBC PER 100 WBC 0 01/13/20 5:21 AM CDT [facility] Blood Venipuncture / Unknown 01/12/2025 4:44 AM CDT 01/12/2025 5:12 AM CDT us Yissel Iniguez YIELD CLERK, CLOTH PAINTER HEMATOLOGY ORDERABLES Fin al Result [facility] [address] [place] [address] * (ABNORMAL) BMP with Ca, Total (01/12/2025 4:44 AM CDT) Only the most recent of2 resultswithin the time period is included. SODIUM 139 136 - 145 mmol/L 01/12/2025 5:43 AM CDT [facility] POTASSIUM 3.3(L) 3.5 - 5.1 mmol/L 01/12/2025 5:43 AM CDT [facility] CHLORIDE 106 98 - 107 mmol/L 01/12/2025 5:43 AM CDT [facility] CO2, VENOUS 23 22 - 30 mmol/L 01/12/2025 5:43 AM CDT [facility] ANION GAP 13.3 <18.0 mmol/L 01/12/2025 5:43 AM CDT [facility] GLUCOSE 285(H) 70 - 99 mg/dL 01/12/2025 5:43 AM CDT [facility] BUN 14 8 - 26 mg/dL 01/12/2025 5:43 AM CDT [facility] CREATININE, BLOOD 1.31(H) 0.70 - 1.30 mg/dL 01/12/2025 5:43 AM CDT [facility] BUN/CREATININE RATIO 11(L) 12 - 20 ratio 01/12/2025 5:43 AM CDT [facility] CALCIUM 9.2 8.7 - 10.5 mg/dL 01/12/2025 5:43 AM CDT [facility] GFR, ESTIMATED >60 >=60 01/12/2025 5:43 AM CDT [facility] Comment: Creatinine Clearance is the preferred criteria for selecting drug dose adjustments in renally impaired patients. The GFR is provided as additional pertinent clinical information. GFR is reported in mL/min/1.73 sq m. Calculation based on the Chronic Kidney Disease Epidemiology Collaboration (CKD- EPI) equation refit without adjustment for race. GFR, EST. >60 >=60 025 5:43 AM CDT [facility] GFR, EST. NONAFRICAN 57(L) >=60 01/12/2025 5:43 AM CDT [facility] Blood Venipuncture / Unknown 01/12/2025 4:44 AM CDT 01/12/2025 5:10 AM CDT us Yissel Iniguez YIELD CLERK, CLOTH PAINTER CHEMISTRY ORDERABLES Bekcy l Result [facility] [address] [place] [address] * RHYTHM STRIP (01/12/2025 12:00 AM CDT) Only the most recent of5 resultswithin the time period is included. 01/12/2025 us Provider Scan IMG ECG ORDERABLES Final Result RESULTING AGENCY * (ABNORMAL) Lipid Panel (01/11/2025 4:20 AM CDT) CHOLESTEROL 149 <200 mg/dL 01/11/2025 5:16 AM CDT [facility] TRIGLYCERIDES 371(H) <150 mg/dL 01/11/2025 5:16 AM CDT [facility] HDL CHOLESTEROL 32(L) >40 mg/dL 5:16 AM CDT [facility] LDL 43 <130 mg/dL 01/11/2025 5:16 AM CDT [facility] VLDL 74(H) 10 - 50 mg/dL 01/11/2025 5:16 AM CDT [facility] CHOL/HDL RATIO 4.7(H) 0.0 - 4.4 01/11/2025 5:16 AM CDT [facility] NON-HDL CHOLESTEROL 117 <130 mg/dL 01/11/2025 5:16 AM CDT [facility] Blood Venipuncture / Unknown 01/11/2025 4:20 AM CDT 01/11/2025 4:49 AM CDT us Yissel Iniguez YIELD CLERK, CLOTH PAINTER CHEMISTRY ORDERABLES Becky l Result Performing Organization Address City/[facility]/ZIP Co de Phone Number [facility] [address] [place] [address] * EKG 12 LEAD (01/10/2025 10:15 PM CDT) Ventricular Rate 77 BPM EXTERNAL EKG Atrial Rate 77 BPM EXTERNAL EKG P-R Interval 180 ms EXTERNAL EKG QRS Duration 104 ms EXTERNAL EKG Q-T Duration 438 ms EXTERNAL EKG QTC CALCULATION 495 ms EXTERNAL EKG P [place] 51 degrees EXTERNAL EKG R [place] 61 degrees EXTERNAL EKG T [place] 42 degrees EXTERNAL EKG 01/10/2025 10:1 5 PM CDT Impressions EXTERNAL EKG - 01/12/2025 9:22 AM CDT Normal sinus rhythm Nonspecific ST abnormality QTcB >= 480 msec Abnormal ECG When compared with ECG of 05-JUN-2021 20:03, No significant change was found ~ Confirmed by TJ BRAVO ([id number]) on 01/12/2025 9:22:30 AM Narrative Procedure Note Tj Bravo MD - 01/12/2025 IMPRESSION: Normal sinus rhythm Nonspecific ST abnormality QTcB >= 480 msec Abnormal ECG When compared with ECG of 05-JUN-2021 20:03, No significant change was found ~ Confirmed by TJ BRAVO ([id number]) on 01/12/2025 9:22:30 AM us Yissel Iniguez APRN, CLOTH PAINTER IMG ECG ORDERABLES Final Result EXTERNAL EKG * CT REFERENCE IMAGES FOR IMAGE IMPORT (01/10/2025 8:50 PM CDT) us Not On File Provider IMG CT ORDERABLES Final Res ult * NT-proBNP (01/10/2025 8:13 PM CDT) NT PROBNP 32.2 <450.0 pg/mL 01/10/2025 10:30 PM CDT [facility] Comment: AGE pg/mL INTERPRETATION All <300 [...] APRN, CNP CHEMISTRY ORDERABLES Becky billy Result [facility] [address] [place] [address] * (ABNORMAL) CMP (Comprehensive Metabolic Panel) (01/10/2025 8:13 PM CDT) Pathologist [facility] SODIUM 136 136 - 145 mmol/L 01/10/2025 8:43 PM CDT [facility] POTASSIUM 2.9(L) 3.5 - 5.1 mmol/L 01/10/2025 8:43 PM CDT [facility] CHLORIDE 101 98 - 107 mmol/L 01/10/2025 8:43 PM CDT [facility] CO2, VENOUS 23 22 - 30 mmol/L 01/10/2025 8:43 PM CDT [facility] ANION GAP 14.9 <18.0 mmol/L 01/10/2025 8:43 PM CDT [facility] GLUCOSE 319(H) 70 - 99 mg/dL 01/10/2025 8:43 PM CDT [facility] BUN 13 8 - 26 mg/dL 01/10/2025 8:43 PM CDT [facility] CREATININE, BLOOD 1.41(H) 0.70 - 1.30 mg/dL 01/10/2025 8:43 PM CDT [facility] BUN/CREATININE RATIO 9(L) 12 - 20 ratio 01/10/2025 8:43 PM CDT [facility] TOTAL PROTEIN 7.2 6.0 - 8.0 g/dL 01/10/2025 8:43 PM CDT [facility] ALBUMIN 4.5 3.5 - 5.0 g/dL 01/10/2025 8:43 PM CDT [facility] A/G RATIO 1.7 1.0 - 2.2 01/10/2025 8:43 PM CDT [facility] CALCIUM 9.6 8.7 - 10.5 mg/dL 01/10/2025 8:43 PM CDT [facility] T BILI 0.5 0.2 - 1.2 mg/dL 01/10/2025 8:43 PM CDT [facility] SGOT (AST) 20 <43 U/L 01/10/2025 8:43 PM CDT [facility] SGPT (ALT) 40 <56 U/L 01/10/2025 8:43 PM CDT [facility] ALKALINE PHOSPHATASE 142 40 - 150 U/L 01/10/2025 8:43 PM CDT [facility] GFR, ESTIMATED 59(L) >=60 01/10/2025 8:43 PM CDT [facility] Comment: Creatinine Clearance is the preferred criteria for selecting drug dose adjustments in renally impaired patients. The GFR is provided as additional pertinent clinical information. GFR is reported in mL/min/1.73 sq m. Calculation based on the Chronic Kidney Disease Epidemiology Collaboration (CKD- EPI) equation refit without adjustment for race. GFR, EST. >60 >=60 025 8:43 PM CDT [facility] GFR, EST. NONAFRICAN 52(L) >=60 01/10/2025 8:43 PM CDT [facility] Blood Venipuncture / Unknown 01/10/2025 8:13 PM CDT 01/10/2025 8:22 PM CDT us Yissel Iniguez YIELD CLERK, CLOTH PAINTER CHEMISTRY ORDERABLES Becky l Result [facility] [address] [place] [address] * (ABNORMAL) Hemoglobin A1C w/ Estimated Glucose (01/10/2025 8:13 PM CDT) HGB-A1C 12.4(H) 4.0 - 6.0 % 01/10/2025 8:41 PM CDT [facility] Est Average Glucose 309.2 mg/dL 01/10/2025 8:41 PM CDT [facility] Blood Venipuncture / Unknown 01/10/2025 8:13 PM CDT 01/10/2025 8:22 PM CDT Narrative [facility] - 01/10/2025 8:41 PM CDT HEMOGLOBIN A1C: DIABETIC PATIENTS: WELL-CONTROLLED: 6.2 - 7.0 INTERMEDIATE WELL-CONTROLLED: 7.0 - 9.0 POORLY-CONTROLLED: >9.0 Specimens containing greater than 5% of Hemoglobin F may result in lower than expected % HbA1C results. us Yissel Iniguez YIELD CLERK, CLOTH PAINTER CHEMISTRY ORDERABLES Becky l Result Performing Organization Address City/[facility] de Phone Number [facility] [address] [place] [address] * EKG SCAN (01/10/2025 12:00 AM CDT) 01/10/2025 us Provider Scan IMG ECG ORDERABLES Final Result Performing Organization Address City/[facility] Co de Phone Number RESULTING AGENCY documented in this encounter Visit Diagnoses Diagnosis Left sided numbness- Primary Disturbance of skin sensation Asthma Unspecified asthma TIA (transient ischemic attack) Unspecified transient cerebral ischemia Type 2 diabetes mellitus treated without insulin ([facility]) Left hemiparesis ([facility]) Hemiplegia, unspecified, affecting unspecified side Type 2 diabetes mellitus treated without insulin ([facility]) Personal history of tobacco use, presenting hazards to health Peripheral polyneuropathy Unspecified hereditary and idiopathic peripheral neuropathy Hypertension Unspecified essential hypertension Hyperlipidemia Other and unspecified hyperlipidemia GERD (gastroesophageal reflux disease) Esophageal reflux Lupus anticoagulant disorder ([facility]) Primary hypercoagulable state Obesity (BMI 30-39.9) Obesity, [...] taking oral intake without complications and both PO/MN orders are active, administer through the oral route. acetaminophen (TYLENOL) tablet 650 mg 650 mg, Oral, EVERY 4 HOURS PRN, Starting on 01/10/25 at 1950, Until Sun01/12/25 at 2121, Mild pain or more severe pain if patient requests, Fever, If patient is taking oral intake without complications and both PO/MN orders are active, administer through the oral [...] 80 mg, Oral, DAILY, First dose on Russell 01/11/25 at 0900, Until Discontinued Given 01/12/2025 7:53 AM CDT 80 mg Given 01/11/2025 8:34 AM CDT 80 mg buPROPion SR (WELLBUTRIN SR) SR tablet 150 mg 150 mg, Oral, 2 TIMES DAILY, First dose on Russell 01/11/25 at 0900, Until Discontinued, Do not [...] 2) increasing dosage, or 3) changing to MULTIFOCAL LENS INSPECTOR. Given 01/12/2025 2:02 PM CDT 1 Tablet [...] 2232 (Given - Provider: Bola Webber RN) 0865 (Given - Provider: Sofy Lopez RN)860 (Given - Provider: Heather Nation RN) 0753 [...] By Provider - Provider: Yissel Iniguez APRN, CLOTH PAINTER - Reason: Other) 0900 (Automatically Held) 0900 [...] By Provider - Provider: Yissel Iniguez APRN, CLOTH PAINTER - Reason: Other) 0900 (Automatically Held) 0900 [...] taking oral intake without complications and both PO/MN orders are active, administer through the oral route. 0753 (See Alternativ e - Provider: Jeanne Osullivan RN) acetaminophen (TYLENOL) tablet 650 mg(Linked Group 2) 650 mg, Oral, EVERY 4 HOURS PRN, Starting on 01/10/25 at 1950, Until 01/12/25 at 2122, Mild pain or more severe pain if patient requests, Fever, If patient is taking oral intake without complications and both PO/MN orders are active, administer through the oral [...] 2) increasing dosage, or 3) changing to MULTIFOCAL LENS INSPECTOR. 1504 (Given - Provider: Sofy Lopez RN) [...] taking oral intake without complications and both PO/MN orders are active, administer through the oral route. Or acetaminophen (TYLENOL) suppository 650 mgJump to med 650 mg, Rectal, EVERY 4 HOURS PRN, Starting on 01/10/25 at 1950, Until Sun01/12/25 at 2121, Mild pain or more severe pain if patient requests, Fever, If patient is taking oral intake without complications and both PO/MN orders are active, administer through the oral [...] line documented in this encounter Care Teams Events Associate Relationship Specialty Start Date End Date Tad Becker MD [address] [place] [address] PCP - General Family Medicine 01/17/24 Gloria Martinez MD #[address] [address] Consulting Physician Urology 04/30/24 documented as of this encounter
--- OUTSIDE RECORDS SUMMARY | 2025-01-14 18:59 | XMS_ITS | Encounter Summary ---
Author Organization [facility] Address [address] [place] [address] Phone Care Team Providers Care Tennis Professional Name Role Phone Jabier Peck MD Primary Care Provider [phone] Srikanth Adrian MD Unavailable Tad Romero MD Primary Care Provider [phone] Gloria Martinez MD Unavailable [phone] Reason for Visit * Reason Onset Date Comments Medication Refill 12/28/2021 Encounter Details Date Type Department Care Team (Late st Contact Info) Description 12/28/[address] [facility] - Family Medicine [facility] #2 [place] [address] Jabier Peck MD #[address] [address] Medication Refill Social History Tobacco Use Types [...] CDT Gender Identity Male 05/03/2023 12:44 PM HOG COUNTER Sexual Orientation Lesbian or Wolff 05/03/2023 12 :44 PM HOG COUNTER COVID-19 Exposure Response Date Recorded In the [...] physician/MARVA review. Refill encounter routed to nurse [employer]'s pool for processing. documented in this encounter Plan of Treatment Not on file documented as of this encounter Visit Diagnoses Not on filedocumented in this encounter Additional Health Concerns Infection Onset Date Last Indicated Resolved Time COVID - 19 Confirmed 05/31/2022 05/31/2022 023 12:16 AM HOG COUNTER Respiratory Rule Out - RPA 02/26/2023 02/26/2023 0 02/26/2023 11:31 AM CDT COVID - 19 02/26/2023 02/26/2023 03/08/2023 12:1 6 AM CDT documented as of this encounter Care Teams Tennis Professional Relationship Specialty Start Date End Date Jabier Peck MD #[address] [address] PCP - General Family Medicine 06/22/20 01/16/24 Tad Mcintosh MD [address] [place] [address] PCP - General Family Medicine 01/17/24 Srikanth Adrian MD #[address] [address] Customer Service Consultant Cardiovascular Disease - Cardiology 02/02/22 08/06/24 Gloria [facility] MD [facility]2 [facility] [address] [address] Consulting Physician Urology 04/30/24 documented as of this encounter
--- OUTSIDE RECORDS SUMMARY | 2025-01-14 18:59 | XMS_ITS | Clinical Summary ---
Author Organization [facility] Facility Address [address] [place] [address] Care Team Providers Care Gas Regulator Repairer Name Role Phone Jabier Peck MD MPH Primary Care Provider [phone] Allergies Active Allergy Reactions Criticality Noted Date [...] specimen (specimen) Venous blood / Unknown 12/30/2021 [facility] Provider LAB BLOOD ORDERABLES Becky l Result from Last 3 Months or Most Recently Relevant to Health Maintenance Insurance UHC Medicare Medicaid [place] Care Teams Gas Regulator Repairer Relationship Specialty Start Date End Date Jabier Peck MD MPH [address] [address] PCP - General Family Medicine 09/13/21
--- OUTSIDE RECORDS SUMMARY | 2025-01-14 18:59 | XMS_ITS | Encounter Summary ---
Author Organization [facility] Address [address] [place] [address] Phone Care Team Providers Care Tablet Making Machine Operator Name Role Phone Jabier Peck MD Primary Care Provider + [phone] Srikanth Adrian MD Unavailable Tad Romero MD Primary Care Provider [phone] Gloria Martinez MD Unavailable [phone] Reason for Visit * Reason Comments Medication Refill Encounter Details Date Type Department Care Team (Late st Contact Info) Description 12/07/2023 [facility]ill [facility] #2 [place] [address] Jabier Peck MD #[address] [address] Medication Refill Social History Tobacco Use Types [...] CDT Gender Identity Male 05/03/2023 12:44 PM 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 Requested Prescriptions Pending Prescriptions Disp Refills albuterol 108 (90 Base) MCG/ACT Aerosol Solution [Pharmacy Med Name: ALBUTEROL HFA 90 MCG INHALER (MT] 8.5 g Sig: TRANSFERRED: 06/15/23 -READ RX [...] Rangelradha [facility] 12/18/22 Telemedicine Jabier Peck MD [facility] Showing recent visits within past 365 days and meeting all other requirements Future Appointments No visits were found meeting these conditions. Showing future appointments within next 90 days and meeting all other requirements documented in this encounter Plan of Treatment Not on file documented as of this encounter Visit Diagnoses Not on filedocumented in this encounter Care Teams Tablet Making Machine Operator Relationship Specialty Start Date End Date Jabier Peck MD #[address] [address] PCP - General Family Medicine 06/22/20 01/16/24 Tad Mcintosh MD [address] [place] [address] PCP - General Family Medicine 01/17/24 Srikanth Adrian MD #2 [facility] [address] [place] [address] Deburrer Machine Cardiovascular Disease - Cardiology 02/02/22 08/06/24 Gloria Martinez MD #2 [facility] [address] [place] [address] Consulting Physician Urology 04/30/24 documented as of this encounter
--- OUTSIDE RECORDS SUMMARY | 2025-01-14 18:59 | XMS_ITS | Encounter Summary ---
Author Organization [facility] Address [address] [place] [place] [address] Phone Care Team Providers Care Fleet Service Manager Name Role Phone Jabier Peck MD Primary Care Provider + [phone] Srikanth Adrian MD Unavailable Tad Romero MD Primary Care Provider [phone] Gloria Martinez MD Unavailable [phone] Reason for Visit * Reason Comments Medication Refill Encounter Details Date Type Department Care Team (Late st Contact Info) Description 02/02/2021 Refill [facility] #2 [place] [address] Jabier Peck MD #[address] [address] Medication Refill Social History Tobacco Use Types [...] CDT Gender Identity Male 05/03/2023 12:44 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 Sexual Orientation Lesbian or Wolff 05/03/2023 12 :44 PM GEAR TECHNICIAN documented as of this encounter Miscellaneous [...] 11/16/20 Office Visit Kishore Prieto APN, R[facility] [place] 10/20/20 Office Visit Jabier Peck [facility] 08/20/20 Telemedicine Kishore Prieto APN, RICHARD [facility] [place] 08/06/20 Telemedicine Kishore Prieto APN, RICHARD [facility] [place] 06/22/20 Office Visit Kishore Prieot APN, RICHARD [facility] [place] Showing recent visits within past 365 days [...] 19 Confirmed 05/31/2022 05/31/2022 023 12:16 AM GEAR TECHNICIAN Respiratory Rule Out - RPA 02/26/2023 02/26/2023 0 02/26/2023 11:31 AM CDT COVID - 19 02/26/2023 02/26/2023 03/08/2023 12:1 6 AM CDT documented as of this encounter Care Teams Fleet Service Manager Relationship Specialty Start Date End Date Jabier Peck MD #2 [facility] [address] [place] [address] PCP - General Family Medicine 06/22/20 01/16/24 Tad Mcintosh MD [address] [place] [address] PCP - General Family Medicine 01/17/24 Srikanth Adrian MD #2 [facility] [address] [place] [address] Revenue Enforcement Agent Cardiovascular Disease - Cardiology 02/02/22 08/06/24 Gloria Martinez MD #2 [facility] [address] [place] [address] Consulting Physician Urology 04/30/24 documented as of this encounter
--- OUTSIDE RECORDS SUMMARY | 2025-01-14 18:59 | XMS_ITS | Encounter Summary ---
Author Organization [facility] Address [address] [facility] [place] [address] Phone Care Team Providers Care Special Systems Technician Name Role Phone Srikanth Adrian MD Unavailable Tad Romero MD Primary Care Provider [phone] Gloria Martinez MD Unavailable [phone] Reason for Visit * Reason Comments Medication Refill Encounter Details Date Type Department Care Team (Late st Contact Info) Description 07/26/2024 Refill [facility] Medical Group - Family Medicine [facility] #2 [place] [phone] Jabier Peck MD #[address] [address] Medication Refill Social History Tobacco Use Types [...] CDT Gender Identity Male 05/03/2023 12:44 PM MAJOR APPLIANCE ASSEMBLY SUPERVISOR Sexual Orientation Lesbian or Wolff 05/03/2023 12 :44 PM MAJOR APPLIANCE ASSEMBLY SUPERVISOR documented as of this encounter Miscellaneous Notes * Telephone Encounter - Sheyla Burgess RN - 07/28/2024 10:39 AM MAJOR APPLIANCE ASSEMBLY SUPERVISOR Changed PCPs to Tad Mcintosh MD R APPLIANCE ASSEMBLY SUPERVISOR * Telephone Encounter - Sheyla Burgess RN - 07/28/2024 10:39 AM MAJOR APPLIANCE ASSEMBLY SUPERVISOR Now seeing Tad Mcintosh MD R APPLIANCE ASSEMBLY SUPERVISOR * Telephone Encounter - Sheyla Burgess RN - 07/28/2024 10:38 AM MAJOR APPLIANCE ASSEMBLY SUPERVISOR Needs OV. Last seen April 2023. R APPLIANCE ASSEMBLY SUPERVISOR documented in this encounter Plan of Treatment Not on file documented as of this encounter Visit Diagnoses Not on filedocumented in this encounter Care Teams Special Systems Technician Relationship Specialty Start Date End Date Tad Mcintosh MD [address] [place] [address] PCP - General Family Medicine 01/17/24 Srikanth Adrian MD Senior Courtroom Clerk Cardiovascular Disease - Cardiology 02/02/22 08/06/24 Gloria Martinez MD #[address] [address] Consulting Physician Urology 04/30/24 documented as of this encounter
--- OUTSIDE RECORDS SUMMARY | 2025-01-14 18:59 | XMS_ITS | Encounter Summary ---
Author Organization [facility] Address [address] [facility] [place] [address] Phone Care Team Providers Care Equipment Engineer Name Role Phone Jabier Peck MD Primary Care Provider [phone] Srikanth Adrian MD Unavailable Tad Romero MD Primary Care Provider [phone] Gloria Martinez MD Unavailable [phone] Reason for Visit * Reason Comments Medication Refill Encounter Details Date Type Department Care Team (Late st Contact Info) Description 09/22/2021 Refill [facility] #2 [place] [address] Jabier Peck MD #[address] [address] Medication Refill Social History Tobacco Use Types [...] CDT Gender Identity Male 05/03/2023 12:44 PM PREPARED FOODS TEAM LEADER Sexual Orientation Lesbian or Wolff 05/03/2023 12 :44 PM PREPARED FOODS TEAM LEADER COVID-19 Exposure Response Date Recorded In the [...] Provider Dept 09/27/21 Appointment Kishore Prieto APRN, ELECTRONIC EQUIPMENT INSTALLER [facility] 10/31/21 Appointment Jabier Peck MD [...] 19 Confirmed 05/31/2022 05/31/2022 023 12:16 AM PREPARED FOODS TEAM LEADER Respiratory Rule Out - RPA 02/26/2023 02/26/2023 0 02/26/2023 11:31 AM CDT COVID - 19 02/26/2023 02/26/2023 03/08/2023 12:1 6 AM CDT documented as of this encounter Care Teams Equipment Engineer Relationship Specialty Start Date End Date Jabier Peck MD #2 [facility] [address] [place] [address] PCP - General Family Medicine 06/22/20 01/16/24 Tad Mcintosh MD [address] [place] [address] PCP - General Family Medicine 01/17/24 Srikanth Adrian MD #2 [facility] [address] [place] [address] Distribution Dispatcher Cardiovascular Disease - Cardiology 02/02/22 08/06/24 Gloria Martinez MD #2 [facility] [address] [place] [address] Consulting Physician Urology 04/30/24 documented as of this encounter
--- OUTSIDE RECORDS SUMMARY | 2025-01-14 18:59 | XMS_ITS | Encounter Summary ---
Author Organization [facility] Address [address] [facility] [place] [address] Phone Care Team Providers Care Hat Trimmer Name Role Phone Tad Mcintosh MD Primary Care Provider [phone] Gloria Martinez MD Unavailable [phone] Reason for Visit * Reason Comments Medication Refill Encounter Details Date Type Department Care Team (Late st Contact Info) Description 10/21/2024 Refill [facility] #2 [place] [address] Jabier Peck MD #[address] [address] Medication Refill Social History Tobacco Use Types [...] CDT Gender Identity Male 05/03/2023 12:44 PM CHECK CASHIER Sexual Orientation Lesbian or Wolff 05/03/2023 12 :44 PM CHECK CASHIER documented as of this encounter Miscellaneous Notes * Telephone Encounter - Francine Soto RN - 10/22/2024 9:04 AM CDT PCP: Tad Mcintosh MD documented in this encounter Plan of Treatment Not on file documented as of this encounter Visit Diagnoses Not on filedocumented in this encounter Care Teams Hat Trimmer Relationship Specialty Start Date End Date Tad Mcintosh MD [address] [place] [address] PCP - General Family Medicine 01/17/24 Gloria Martinez MD #[address] [address] Consulting Physician Urology 04/30/24 documented as of this encounter
--- OUTSIDE RECORDS SUMMARY | 2025-01-14 18:59 | XMS_ITS | Encounter Summary ---
Author Organization [facility] Address [address] [facility] [place] [address] Phone Care Team Providers Care Business Department Chair Name Role Phone Jabier Peck MD Primary Care Provider [phone] Srikanth Adrian MD Unavailable Tad Romero MD Primary Care Provider [phone] Gloria Martinez MD Unavailable [phone] Reason for Visit * Reason Comments Medication Refill Encounter Details Date Type Department Care Team ([facility] st Contact Info) Description 05/25/2022 Refill [facility] Oncology Services [address] [place] [phone] Jt Morillo MD [address] [place] [address] Medication Refill Social History Tobacco Use Types [...] Gender Identity Male 05/03/2023 12:44 PM SKEIN TIER Sexual Orientation Lesbian or Wolff 05/03/2023 12 :44 PM SKEIN TIER COVID-19 Exposure Response Date Recorded In the last 10 days, have yo u been in contact with someone who was confirmed or suspected to have Coronavirus/COVID-19? No / Unsure 05/10/2022 2:32 PM SKEIN TIER documented as of this encounter Miscellaneous Notes * Telephone Encounter - Aisha Escamilla RN - 05/26/2022 11:00 AM CST Approved Eliquis per last f/u note. Pt to be on indefinite AC. N TIER documented in this encounter Plan of Treatment Not on file documented as of this encounter Visit Diagnoses Diagnosis History of thrombophilia associated with MTHFR mutation documented in this encounter Additional Health Concerns Infection Onset Date Last Indicated Resolved Time COVID - 19 Confirmed 05/31/2022 05/31/2022 023 12:16 AM SKEIN TIER Respiratory Rule Out - RPA 02/26/2023 02/26/2023 0 02/26/2023 11:31 AM CDT COVID - 19 02/26/2023 02/26/2023 03/08/2023 12:1 6 AM CDT documented as of this encounter Care Teams Business Department Chair Relationship Specialty Start Date End Date Jabier Peck MD #[address] [address] PCP - General Family Medicine 06/22/20 01/16/24 Tad Mcintosh MD [address] [place] [address] PCP - General Family Medicine 01/17/24 Srikanth Adrian MD #[address] [address] Seat Pack Inspector Cardiovascular Disease - Cardiology 02/02/22 08/06/24 Gloria Martinez MD #[address] [address] Consulting Physician Urology 04/30/24 documented as of this encounter
--- OUTSIDE RECORDS SUMMARY | 2025-01-14 18:59 | XMS_ITS | Clinical Summary ---
Author Organization [facility] Address [address] [address] Phone Care Team Providers Care Graphic Design Assistant Name Role Phone Tad Mcintosh MD Primary Care Provider [phone] Gloria Martinez MD Unavailable [phone] Allergies Active Allergy Reactions Criticality Noted [...] 01/13/20 25 Active Insulin Pen Needle (Pen [place]) 29G X 12MM Misc As instructed 100 [...] 7:22 PM CDT Hospital Encounter [facility] Med Surg [address] [place] [phone] CarCollette bethea MD Left sided numbness Discharge Disposition: Discharged to home or Selfcare 01/10/2025 Travel 10/21/2024 [facility] [place] [address] Jabier Peck MD Medication Refill 10/20/2024 [facility] [place] [address] Jabier Peck MD Medication Refill from Last [...] were you homeless or living in a jail (including now)? Patient declined 01/10/2025 [facility] Utilities Answer Date Recorded In the past 12 months has th e electric, gas, oil, or water [employer] threatened to shut off services in your [...] CDT Gender Identity Male 05/03/2023 12:44 PM OPTOMETRIST PRESIDENT/PRACTICE OWNER Sexual Orientation Lesbian or Wolff 05/03/2023 12 :44 PM OPTOMETRIST PRESIDENT/PRACTICE OWNER Last Filed Vital Signs Vital Sign Reading [...] CHEST SCREENING WO Routine 05/10/2022 2:52 PM OPTOMETRIST PRESIDENT/PRACTICE OWNER Personal history of nicotine dependence PODIATRY CONSULT 08/18/2021 12:0 0 AM OPTOMETRIST PRESIDENT/PRACTICE OWNER from Last 3 Months or Most Recently Relevant to Health Maintenance Results * (ABNORMAL) Glucose (01/12/2025 4:23 PM CDT) [facility] GLUCOSE 378(H) 70 - 99 mg/dL 01/12/2025 5:02 PM CDT [facility] Blood Venipuncture / Unknown 01/12/2025 4:23 PM CDT 01/12/2025 4:30 PM CDT us Collette Francois MD CHEMISTRY ORDERABLES Final Result [facility] [address] [place] [address] * (ABNORMAL) POCT Glucose (01/12/2025 4:08 PM CDT) Only the most recent of9 resultswithin the time period is included. [facility] GLUCOSE,BEDSID E POCT 402(HH) 70 - 99 mg/dL 01/12/2025 4:13 PM CDT [facility] Comment: RN Notified TOOK RUBIN ERWIN Blood 01/12/2025 4:08 PM CDT 01/12/2025 4:13 PM CDT us None Provider POINT OF CARE TESTING Final Resu lt [facility] [address] [place] [address] * US BILATERAL CAROTID DUPLEX (01/12/2025 11:01 [...] Enrique Groves M.D. AM: AM Report ID: [id number] Reading Location: [place] [address] Procedure Note Enrique Groves MD - 01/12/2025 [...] Enrique Groves M.D. AM: AM Report ID: [id number] Reading Location: [id number] IMPRESSION: 1. Velocities correspond to a less [...] Atul Mena M.D. MM: MM Report ID: [id number] Reading Location: [id number] Procedure Note Atul Mena MD - 01/12/2025 [...] Atul Mena M.D. MM: MM Report ID: [id number] Reading Location: [id number] IMPRESSION: No acute infarction. us Yissel Iniguez MERRY GO ROUND ATTENDANT, ORNAMENTAL METAL WORKER IMG MR ORDERABLES Final R esult * [...] JR. De Jesus 1970 Patient ID (UPI) [id number] Indications: Stroke. Study Date01/12/2025 Technical quality: Poor [...] lbs. BMI (BSA) 34.91 kg/m^2 (2.22 m^2) Director Of Communications Chester Chelita R Room 231-01 Interpreting Lawrence Referring Physician Tj Physician Procedure Note Tj Bravo MD - 01/12/2025 Transthoracic Echocardiography Report (TTE) Patient name DILIP Arzate JR. De Jesus 1970 Patient ID (UPI) [id number] Indications: Stroke. Study Date01/12/2025 Technical quality: Poor [...] lbs. BMI (BSA) 34.91 kg/m^2 (2.22 m^2) Director Of Communications Chester Merlos R Room 231-01 Interpreting Bravo Referring Physician Tj Physician us Yissel Iniguez MERRY GO ROUND ATTENDANT, ORNAMENTAL METAL WORKER IMG ECHO ORDERABLES Edite d Result - Final * (ABNORMAL) CBC with Auto Differential (01/12/2025 4:44 AM CDT) Only the most recent of3 resultswithin the time period is included. WBC 10.97 4.00 - 12.00 10(3)/mcL 01/12/2025 5:21 AM CDT [facility] RBC 4.58 4.40 - 5.80 10(6)/mcL 01/12/2025 5:21 AM CDT [facility] HEMOGLOBIN (HGB) 14.9 13.0 - 16.5 g/dL 01/12/2025 5:21 AM CDT [facility] HEMATOCRIT (HCT) 42.7 38.0 - 50.0 % 01/12/2025 5:21 AM CDT [facility] MCV 93.2 82.0 - 96.0 fL 01/12/2025 5:21 AM CDT [facility] MCH 32.5(H) 26.0 - 32.0 pg 01/12/2025 5:21 AM CDT [facility] MCHC 34.9 31.0 - 36.0 g/dL 01/12/2025 5:21 AM CDT [facility] PLATELET COUNT 218 140 - 440 10(3)/mcL 01/12/2025 5:21 AM CDT [facility] RDW 13.3 11.8 - 15.5 % 01/12/2025 5:21 AM CDT [facility] MPV 10.7 8.0 - 12.6 fL 01/12/2025 5:21 AM CDT [facility] NEUTROPHILS 66.1 40.0 - 68.0 % 01/12/2025 5:21 AM CDT [facility] LYMPHOCYTES 25.3 19.0 - 49.0 % 01/12/2025 5:21 AM CDT [facility] MONOCYTES 3.7 3.0 - 13.0 % 01/12/2025 5:21 AM CDT [facility] EOSINOPHILS 3.3 0.0 - 8.0 % 01/12/2025 5:21 AM CDT [facility] BASOPHILS 1.1(H) 0.0 - 1.0 % 01/12/2025 5:21 AM CDT [facility] IMMATURE GRANULOCYTE 0.5(H) 0.0 - 0.4 % 01/12/2025 5:21 AM CDT [facility] Comment:Immature Granulocyte s includes Metamyelocytes, Myelocytes, and Promyelocytes. ABSOLUTE NEUTROPHILS 7.25(H) 1.40 - 5.30 10(3)/mcL 01/12/2025 5:21 AM CDT [facility] ABSOLUTE LYMPHOCYTES 2.77 0.90 - 3.30 10(3)/mcL 01/12/2025 5:21 AM CDT [facility] ABSOLUTE MONOCYTES 0.41 0.10 - 0.90 10(3)/[facility] 01/12/2025 5:21 AM CDT [facility] ABSOLUTE EOSINOPHIL 0.36 0.00 - 0.50 10(3)/[facility] 01/12/2025 5:21 AM CDT [facility] ABSOLUTE BASOPHILS 0.12(H) 0.00 - 0.10 10(3)/mcL 01/12/2025 5:21 AM CDT [facility] ABSOLUTE IMMATURE GRANULOCYTE 0.06(H) 0.00 - 0.03 10 (3) mcL. 01/12/2025 5:21 AM CDT [facility] NRBC PER 100 WBC 0 01/13/20 5:21 AM CDT [facility] Blood Venipuncture / Unknown 01/12/2025 4:44 AM CDT 01/12/2025 5:12 AM CDT us Yissel Iniguez MERRY GO ROUND ATTENDANT, ORNAMENTAL METAL WORKER HEMATOLOGY ORDERABLES Fin al Result [facility] [address] [place] [address] * (ABNORMAL) BMP with Ca, Total (01/12/2025 4:44 AM CDT) Only the most recent of2 resultswithin the time period is included. SODIUM 139 136 - 145 mmol/L 01/12/2025 5:43 AM CDT [facility] POTASSIUM 3.3(L) 3.5 - 5.1 mmol/L 01/12/2025 5:43 AM CDT [facility] CHLORIDE 106 98 - 107 mmol/L 01/12/2025 5:43 AM CDT [facility] CO2, VENOUS 23 22 - 30 mmol/L 01/12/2025 5:43 AM CDT [facility] ANION GAP 13.3 <18.0 mmol/L 01/12/2025 5:43 AM CDT [facility] GLUCOSE 285(H) 70 - 99 mg/dL 01/12/2025 5:43 AM CDT [facility] BUN 14 8 - 26 mg/dL 01/12/2025 5:43 AM CDT [facility] CREATININE, BLOOD 1.31(H) 0.70 - 1.30 mg/dL 01/12/2025 5:43 AM CDT [facility] BUN/CREATININE RATIO 11(L) 12 - 20 ratio 01/12/2025 5:43 AM CDT [facility] CALCIUM 9.2 8.7 - 10.5 mg/dL 01/12/2025 5:43 AM CDT [facility] GFR, ESTIMATED >60 >=60 01/12/2025 5:43 AM CDT [facility] Comment: Creatinine Clearance is the preferred criteria for selecting drug dose adjustments in renally impaired patients. The GFR is provided as additional pertinent clinical information. GFR is reported in mL/min/1.73 sq m. Calculation based on the Chronic Kidney Disease Epidemiology Collaboration (CKD- EPI) equation refit without adjustment for race. GFR, EST. >60 >=60 01/12/2 025 5:43 AM CDT [facility] GFR, EST. NONAFRICAN 57(L) >=60 01/12/2025 5:43 AM CDT [facility] Blood Venipuncture / Unknown 01/12/2025 4:44 AM CDT 01/12/2025 5:10 AM CDT us Yissel Iniguez MERRY GO ROUND ATTENDANT, ORNAMENTAL METAL WORKER CHEMISTRY ORDERABLES Becky l Result [facility] [address] [place] [address] * RHYTHM STRIP (01/12/2025 12:00 AM CDT) Only the most recent of5 resultswithin the time period is included. 01/12/2025 us Provider Scan IMG ECG ORDERABLES Final Result Performing Organization Address [facility] Co de Phone Number RESULTING AGENCY * (ABNORMAL) Lipid Panel (01/11/2025 4:20 AM CDT) CHOLESTEROL 149 <200 mg/dL 01/11/2025 5:16 AM CDT [facility] TRIGLYCERIDES 371(H) <150 mg/dL 01/11/2025 5:16 AM CDT [facility] HDL CHOLESTEROL 32(L) >40 mg/dL 5:16 AM CDT [facility] LDL 43 <130 mg/dL 01/11/2025 5:16 AM CDT [facility] VLDL 74(H) 10 - 50 mg/dL 01/11/2025 5:16 AM CDT [facility] CHOL/HDL RATIO 4.7(H) 0.0 - 4.4 01/11/2025 5:16 AM CDT [facility] NON-HDL CHOLESTEROL 117 <130 mg/dL 01/11/2025 5:16 AM CDT [facility] Blood Venipuncture / Unknown 01/11/2025 4:20 AM CDT 01/11/2025 4:49 AM CDT us Yissel Iniguez MERRY GO ROUND ATTENDANT, ORNAMENTAL METAL WORKER CHEMISTRY ORDERABLES Becky l Result Performing Organization Address City/[facility] Co de Phone Number [facility] [address] [place] [address] * EKG 12 LEAD (01/10/2025 10:15 PM CDT) Ventricular Rate 77 BPM EXTERNAL EKG Atrial Rate 77 BPM EXTERNAL EKG P-R Interval 180 ms EXTERNAL EKG QRS Duration 104 ms EXTERNAL EKG Q-T Duration 438 ms EXTERNAL EKG QTC CALCULATION 495 ms EXTERNAL EKG P Rubicon 51 degrees EXTERNAL EKG R Rubicon 61 degrees EXTERNAL EKG T Rubicon 42 degrees EXTERNAL EKG 01/10/2025 10:1 5 PM CDT Impressions EXTERNAL EKG - 01/12/2025 9:22 AM CDT Normal sinus rhythm Nonspecific ST abnormality QTcB >= 480 msec Abnormal ECG When compared with ECG of 05-JUN-2021 20:03, No significant change was found ~ Confirmed by TJ BRAVO ([id number]) on 01/12/2025 9:22:30 AM Narrative Procedure Note Tj Bravo MD - 01/12/2025 IMPRESSION: Normal sinus rhythm Nonspecific ST abnormality QTcB >= 480 msec Abnormal ECG When compared with ECG of 05-JUN-2021 20:03, No significant change was found ~ Confirmed by TJ BRAVO ([id number]) on 01/12/2025 9:22:30 AM us Yissel Iniguez APRN, CNP IMG ECG ORDERABLES Final Result EXTERNAL EKG * CT REFERENCE IMAGES FOR IMAGE IMPORT (01/10/2025 8:50 PM CDT) us Not On File Provider IMG CT ORDERABLES Final Res ult * (ABNORMAL) Hemoglobin A1C w/ Estimated Glucose (01/10/2025 8:13 PM CDT) HGB-A1C 12.4(H) 4.0 - 6.0 % 01/10/2025 8:41 PM CDT [facility] Est Average Glucose 309.2 mg/dL 01/10/2025 8:41 PM CDT [facility] Blood Venipuncture / Unknown 01/10/2025 8:13 PM CDT 01/10/2025 8:22 PM CDT Narrative [facility] - 01/10/2025 8:41 PM CDT HEMOGLOBIN A1C: DIABETIC PATIENTS: WELL-CONTROLLED: 6.2 - 7.0 INTERMEDIATE WELL-CONTROLLED: 7.0 - 9.0 POORLY-CONTROLLED: >9.0 Specimens containing greater than 5% of Hemoglobin F may result in lower than expected % HbA1C results. us Yissel Iniguez MERRY GO ROUND ATTENDANT, ORNAMENTAL METAL WORKER CHEMISTRY ORDERABLES Becyk l Result Performing Organization Address City/[facility]/ZIP Co de Phone Number [facility] [address] [place] [address] * NT-proBNP (01/10/2025 8:13 PM CDT) NT PROBNP 32.2 <450.0 pg/mL 01/10/2025 10:30 PM CDT [facility] Comment: AGE pg/mL INTERPRETATION All [...] 01/10/2025 8:22 PM CDT us Yissel Iniguez MERRY GO ROUND ATTENDANT, ORNAMENTAL METAL WORKER CHEMISTRY ORDERABLES Becky l Result Performing Organization Address City/[facility]/ZIP Co de Phone Number [facility] [address] [place] [address] * (ABNORMAL) CMP (Comprehensive Metabolic Panel) (01/10/2025 8:13 PM CDT) SODIUM 136 136 - 145 mmol/L 01/10/2025 8:43 PM CDT [facility] POTASSIUM 2.9(L) 3.5 - 5.1 mmol/L 01/10/2025 8:43 PM CDT [facility] CHLORIDE 101 98 - 107 mmol/L 01/10/2025 8:43 PM CDT [facility] CO2, VENOUS 23 22 - 30 mmol/L 01/10/2025 8:43 PM CDT [facility] ANION GAP 14.9 <18.0 mmol/L 01/10/2025 8:43 PM CDT [facility] GLUCOSE 319(H) 70 - 99 mg/dL 01/10/2025 8:43 PM CDT [facility] BUN 13 8 - 26 mg/dL 01/10/2025 8:43 PM CDT [facility] CREATININE, BLOOD 1.41(H) 0.70 - 1.30 mg/dL 01/10/2025 8:43 PM CDT [facility] BUN/CREATININE RATIO 9(L) 12 - 20 ratio 01/10/2025 8:43 PM CDT [facility] TOTAL PROTEIN 7.2 6.0 - 8.0 g/dL 01/10/2025 8:43 PM CDT [facility] ALBUMIN 4.5 3.5 - 5.0 g/dL 01/10/2025 8:43 PM CDT [facility] A/G RATIO 1.7 1.0 - 2.2 01/10/2025 8:43 PM CDT [facility] CALCIUM 9.6 8.7 - 10.5 mg/dL 01/10/2025 8:43 PM CDT [facility] T BILI 0.5 0.2 - 1.2 mg/dL 01/10/2025 8:43 PM CDT [facility] SGOT (AST) 20 <43 U/L 01/10/2025 8:43 PM CDT [facility] SGPT (ALT) 40 <56 U/L 01/10/2025 8:43 PM CDT [facility] ALKALINE PHOSPHATASE 142 40 - 150 U/L 01/10/2025 8:43 PM CDT [facility] GFR, ESTIMATED 59(L) >=60 01/10/2025 8:43 PM CDT [facility] Comment: Creatinine Clearance is the preferred criteria for selecting drug dose adjustments in renally impaired patients. The GFR is provided as additional pertinent clinical information. GFR is reported in mL/min/1.73 sq m. Calculation based on the Chronic Kidney Disease Epidemiology Collaboration (CKD- EPI) equation refit without adjustment for race. GFR, EST. >60 >=60 025 8:43 PM CDT [facility] GFR, EST. NONAFRICAN 52(L) >=60 01/10/2025 8:43 PM CDT [facility] Blood Venipuncture / Unknown 01/10/2025 8:13 PM CDT 01/10/2025 8:22 PM CDT us Yissel Iniguez APRN, CNP CHEMISTRY ORDERABLES Becky l Result [facility] [address] [place] [address] * EKG SCAN (01/10/2025 12:00 AM CDT) 01/10/2025 us Provider Scan IMG ECG ORDERABLES Final Result RESULTING AGENCY * PSA SCREEN (02/26/2023 12:32 PM CDT) PSA SCREEN, TOTAL 0.60 <4.00 ng/mL 02/26/2023 1:45 PM CDT [facility] Blood Venipuncture / Unknown 02/26/2023 12:32 PM CDT 02/26/2023 12:57 PM CDT Narrative [facility] - 02/26/2023 1:45 PM CDT The WELDING MACHINE OPERATOR SUBMERGED ARC Total PSA assay is a Chemiluminescent Microparticle Immunoassay (CMIA) for the quantitative determination of total PSA (both free PSA and PSA complexed to [id number]) in human serum. us Kishore Prieto APRN, RICHARD CHEMISTRY ORDERA BLES Final Result [facility] [address] [place] [address] * CT CHEST SCREENING WO (05/10/2022 2:52 PM OPTOMETRIST PRESIDENT/PRACTICE OWNER) Anatomical Region Laterality Modality Chest N/A Computed Tomogra phy 05/12/2022 9:10 AM OPTOMETRIST PRESIDENT/PRACTICE OWNER Impressions 05/12/2022 9:13 AM OPTOMETRIST PRESIDENT/PRACTICE OWNER IMPRESSION: 1. Background of mild pulmonary emphysema. 2. Scattered tiny bilateral pulmonary nodules. No suspicious nodularity. 3. Mild coronary artery calcifications. 4. Additional findings as above. Lung-RADS v1.1 category 2: Benign appearance or behavior. Recommendation: Low dose CT of chest in 12 months. Narrative 05/12/2022 9:13 AM OPTOMETRIST PRESIDENT/PRACTICE OWNER EXAM DESCRIPTION: CT CHEST SCREENING WO REASON [...] Mallorie Gomez M.D. TW: KRISTIN Report ID: [id number] Reading Location: [place] [address] Procedure Note Mallorie Gomez MD - 05/12/2022 [...] Mallorie Gomez M.D. TW: KRISTIN Report ID: [id number] Reading Location: [id number] IMPRESSION: 1. Background of mild pulmonary emphysema. 2. Scattered tiny bilateral pulmonary nodules. No suspicious nodularity. 3. Mild coronary artery calcifications. 4. Additional findings as above. Lung-RADS v1.1 category 2: Benign appearance or behavior. Recommendation: Low dose CT of chest in 12 months. us Kishore Prieto APRN, RICHARD IMG CT ORDERABLE S Final Result * PODIATRY CONSULT (08/18/2021 12:00 AM OPTOMETRIST PRESIDENT/PRACTICE OWNER) 08/18/2021 us Not On File Provider GENERIC SCAN ORDERS CONSULT Final Result SCAN from Last 3 Months or Most Recently Relevant to Health Maintenance Insurance MEDICAID [place] MEDICARE C [facility] Advance Directives * [...] measures to stabilize the patient. Care Teams Graphic Design Assistant Relationship Specialty Start Date End Date Tad Mcintosh MD [address] [place] [id number] PCP - General Family Medicine 01/17/24 Gloria Martinez MD [address] [place] [address] Consulting Physician Urology 04/30/24
--- OUTSIDE RECORDS SUMMARY | 2025-01-14 18:59 | XMS_ITS | Encounter Summary ---
Author Organization [facility] Address [address] [place] [address] Phone Care Team Providers Care Piece Dyeing Machine Tender Name Role Phone Jabier Peck MD Primary Care Provider [phone] Srikanth Adrian MD Unavailable Tad Romero MD Primary Care Provider [phone] Gloria Martinez MD Unavailable [phone] Reason for Visit * Reason Comments Medication Refill Encounter Details Date Type Department Care Team (Late st Contact Info) Description 07/28/2022 Refill [facility] [address] [place] [address] Jabier Peck MD [address] [address] Medication Refill Social History Tobacco Use Types [...] CDT Gender Identity Male 05/03/2023 12:44 PM SEWING MACHINES SALESPERSON Sexual Orientation Lesbian or Wolff 05/03/2023 12 :44 PM SEWING MACHINES SALESPERSON COVID-19 Exposure Response Date Recorded In the last 10 days, have yo u been in contact with someone who was confirmed or suspected to have Coronavirus/COVID-19? No / Unsure 07/20/2022 2:30 PM SEWING MACHINES SALESPERSON documented as of this encounter Miscellaneous [...] Gerri Rocha MD [facility] 05/03/22 Telemedicine Jabire Peck MD [facility] 03/03/22 Office Visit Jabier Peck MD [facility] 02/24/22 Office Visit Kishore Prieto APRN, RICHARD [facility] 01/31/22 Office Visit Kishore Prieto APRN, RICHARD [facility] 12/13/21 Telemedicine Kishore Prieto APRN, RICHARD [facility] 08/01/21 Office Visit [facility] [place] Showing recent visits within past 365 days and meeting all other requirements Future Appointments No visits were found meeting these conditions. Showing future appointments within next 90 days and meeting all other requirements NG MACHINES SALESPERSON documented in this encounter Plan of [...] documented as of this encounter Care Teams Piece Dyeing Machine Tender Relationship Specialty Start Date End Date Jabier Peck MD [address]2 [facility] [address] [place] [address] PCP - General Family Medicine 06/22/20 01/16/24 Tad Mcintosh MD [address] [place] [address] PCP - General Family Medicine 01/17/24 Srikanth Adrian MD [address]2 [facility] [address] [place] [address] Installation & Maintenance Executive Cardiovascular Disease - Cardiology 02/02/22 08/06/24 Gloria Martinez MD [address] [facility] [address] [place] [address] Consulting Physician Urology 04/30/24 documented as of this encounter
--- OUTSIDE RECORDS SUMMARY | 2025-01-14 18:59 | XMS_ITS ---
Author Name ABBY BUTLER Address [address] [place] [address] Phone [facility] Address [address] [place] [address] Phone Care Team Providers Care Sternman Name Role Phone ABBY BUTLER Unavailable [phone] ALLERGIES, ADVERSE REACTIONS AND ALERTS Allergy Name Allergy Date Allergy Status Allergy Severity Allergy Reaction NO KNOWN DRUG ALLERGIES PROBLEMS Problem Code Problem Description Problem Status Problem Da te Problem End Date [id number]-Trvaeklyupn tract congestion and cough Respiratory tract congestion and cough Current 04/28/2022 00996682-Wzdjnaz disorder Bipolar disorder Chronic 04/28/2022 [id number]-Hwmcxdjgc emphysema Pulmonary emphysema Chronic 04/28/2022 58748897-Jupiax disease Kidney disease Chronic 04/28/2022 95963823-Oovlryll mellitus Diabetes mellitus Chronic 04/28/2022 [id number]-Sbkvgt Asthma Chronic 04/28/2022 81233075-Gufvfqnzybk sleep apnea syndrome Obstructive sleep apnea syndrome [...] ever smoked Sex: Male CARE TEAM INFORMATION Sternman Provider ID Role Location Phone ABBY BUTLER [id number] NURSE PRACTITIONER [address] [place] [address] INSURANCE PROVIDERS Payer Name Policy type / Coverage type Covered democrat ID Policy [place] MEDICAID Medicaid [id number] SELF [facility] MEDICARE ADVANTAGE Private Health Insurance [id number] SELF
--- OUTSIDE RECORDS SUMMARY | 2025-01-14 18:59 | XMS_ITS | Encounter Summary ---
Author Organization [facility] Address [address] [place] [address] Phone Care Team Providers Care Carpet Floor Layer Apprentice Name Role Phone Jabier Peck MD Primary Care Provider [phone] Srikanth Adrian MD Unavailable Tad Romero MD Primary Care Provider [phone] Gloria Martinez MD Unavailable [phone] Reason for Visit * Reason Comments Medication Refill Encounter Details Date Type Department Care Team (Late st Contact Info) Description 03/19/2023 Refill [facility] [address] [place] [address] Jabier Peck MD [address] [address] Medication Refill Social History Tobacco Use Types [...] Gender Identity Male 05/03/2023 12:44 PM SUPERVISOR COLOR PASTE MIXING Sexual Orientation Lesbian or Wolff 05/03/2023 12 :44 PM SUPERVISOR COLOR PASTE MIXING COVID-19 Exposure Response Date Recorded In the [...] [facility] 11/30/22 Telemedicine Kishore Prieto APRN, RICHARD [facility] [place] 08/21/22 Office Visit Jabier Peck MD [facility] 07/20/22 Office Visit Gerri Rocha MD [facility] 05/03/22 Telemedicine Jabier Peck MD [facility] [place] Showing recent visits within past [...] on filedocumented in this encounter Care Teams Carpet Floor Layer Apprentice Relationship Specialty Start Date End Date Jabier Peck MD [address]2 [facility] [address] [place] [address] PCP - General Family Medicine 06/22/20 01/16/24 Tad Mcintosh MD [address] [place] [address] PCP - General Family Medicine 01/17/24 Srikanth Adrian MD [address]2 [facility] [address] [place] [address] Medical Officer Cardiovascular Disease - Cardiology 02/02/22 08/06/24 Gloria Martinez MD #2 [facility] [address] [place] [address] Consulting Physician Urology 04/30/24 documented as of this encounter
--- OUTSIDE RECORDS SUMMARY | 2025-01-14 18:59 | XMS_ITS | Encounter Summary ---
Author Organization [facility] Address [address] [facility] [address] [place] [address] Phone Care Team Providers Care Dolly Driver Name Role Phone Jabier Peck MD Primary Care Provider + -[phone] Srikanth Adrian MD Unavailable Tad Romero MD Primary Care Provider [phone] Gloria Martinez MD Unavailable [phone] Reason for Visit * Reason Comments Medication Refill Encounter Details Date Type Department Care Team (Late st Contact Info) Description 03/29/2022 [facility]ill [facility] #2 [place] [address] Jabier Peck MD #[address] [address] Medication Refill Social History Tobacco Use Types [...] Gender Identity Male 05/03/2023 12:44 PM CUTTER WET MACHINE Sexual Orientation Lesbian or Wolff 05/03/2023 12 :44 PM CUTTER WET MACHINE COVID-19 Exposure Response Date Recorded In the [...] Confirmed 05/31/2022 05/31/2022 023 12:16 AM CUTTER WET MACHINE Respiratory Rule Out - RPA 02/26/2023 02/26/2023 0 02/26/2023 11:31 AM CDT COVID - 19 02/26/2023 02/26/2023 03/08/2023 12:1 6 AM CDT documented as of this encounter Care Teams Dolly Driver Relationship Specialty Start Date End Date Jabier Peck MD #2 [facility] 205 [place] [address] PCP - General Family Medicine 06/22/20 01/16/24 Tad Mcintosh MD [address] [place] [address] PCP - General Family Medicine 01/17/24 Srikanth Adrian MD #2 [facility] 205 [place] [address] Bed Bug Exterminator Cardiovascular Disease - Cardiology 02/02/22 08/06/24 Gloria Martinez MD #2 [facility] [address] [place] [address] Consulting Physician Urology 04/30/24 documented as of this encounter
--- OUTSIDE RECORDS SUMMARY | 2025-01-14 18:59 | XMS_ITS | Encounter Summary ---
Author Organization [facility] Address [address] [facility] [place] [address] Phone Care Team Providers Care Elementary School Teacher Name Role Phone Jabier Peck MD Primary Care Provider [phone] Srikanth Adrian MD Unavailable Tad Romero MD Primary Care Provider [phone] Gloria Martinez MD Unavailable [phone] Reason for Visit * Reason Onset Date Comments Medication Refill 10/27/2021 Encounter Details Date Type Department Care Team (Late st Contact Info) Description 10/27/2021 Refill [facility] - Family Medicine [facility] #2 [place] [address] Jabier Peck MD #[address] [address] Medication Refill Social History Tobacco Use Types [...] CDT Gender Identity Male 05/03/2023 12:44 PM SORTER OPERATOR Sexual Orientation Lesbian or Wolff 05/03/2023 12 :44 PM SORTER OPERATOR documented as of this encounter Miscellaneous [...] 19 Confirmed 05/31/2022 05/31/2022 023 12:16 AM SORTER OPERATOR Respiratory Rule Out - RPA 02/26/2023 02/26/2023 0 02/26/2023 11:31 AM CDT COVID - 19 02/26/2023 02/26/2023 03/08/2023 12:1 6 AM CDT documented as of this encounter Care Teams Elementary School Teacher Relationship Specialty Start Date End Date Jabier Peck MD #2 [facility] 205 [place] [address] PCP - General Family Medicine 06/22/20 01/16/24 Tad Mcintosh MD [address] [place] [address] PCP - General Family Medicine 01/17/24 Srikanth Adrian MD #2 [facility] 205 [place] [address] Garment Patternmaker Cardiovascular Disease - Cardiology 02/02/22 08/06/24 Gloria Martinez MD #2 [place] [address] [place] [address] Consulting Physician Urology 04/30/24 documented as of this encounter
--- OUTSIDE RECORDS SUMMARY | 2025-01-14 18:59 | XMS_ITS | Encounter Summary ---
Author Organization [facility] Address [address] [facility] [place] [address] Phone Care Team Providers Care Reconsignment Clerk Name Role Phone Jabier Peck MD Primary Care Provider + -[phone] Srikanth Adrian MD Unavailable Tad Romero MD Primary Care Provider [phone] Gloria Martinez MD Unavailable [phone] Reason for Visit * Reason Comments Medication Refill Encounter Details Date Type Department Care Team (Late st Contact Info) Description 11/23/2021 Refill [facility] #2 [place] [address] Jabier Peck MD #[address] [address] Medication Refill Social History Tobacco Use Types [...] CDT Gender Identity Male 05/03/2023 12:44 PM BALANCE WHEEL HAND FILER Sexual Orientation Lesbian or Wolff 05/03/2023 12 :44 PM BALANCE WHEEL HAND FILER documented as of this encounter Miscellaneous Notes [...] [place] 03/16/21 Office Visit Kishore Prieto APRN, OCCUPATIONAL MEDICINE PHYSICIAN [facility] Showing recent visits within past 365 days [...] 19 Confirmed 05/31/2022 05/31/2022 023 12:16 AM BALANCE WHEEL HAND FILER Respiratory Rule Out - RPA 02/26/2023 02/26/2023 0 02/26/2023 11:31 AM CDT COVID - 19 02/26/2023 02/26/2023 03/08/2023 12:1 6 AM CDT documented as of this encounter Care Teams Reconsignment Clerk Relationship Specialty Start Date End Date Jabier Peck MD #[address] [address] PCP - General Family Medicine 06/22/20 01/16/24 Tad Mcintosh MD [address] [place] [address] PCP - General Family Medicine 01/17/24 Srikanth Adrian MD #2 [facility] 205 [place] [address] Breakfast Attendant Cardiovascular Disease - Cardiology 02/02/22 08/06/24 Gloria Martinez MD #2 [facility] [address] [place] [address] Consulting Physician Urology 04/30/24 documented as of this encounter
--- OUTSIDE RECORDS SUMMARY | 2025-01-14 18:59 | XMS_ITS | Encounter Summary ---
Author Organization [facility] Address [address] [facility] [place] [address] Phone Care Team Providers Care Computer Customer Support Specialist Name Role Phone Srikanth Adrian MD Unavailable Tad Romero MD Primary Care Provider [phone] Gloria Martinez MD Unavailable [phone] Reason for Visit * Reason Comments Medication Refill Encounter Details Date Type Department Care Team (Late st Contact Info) Description 07/03/2024 Refill [facility] - Family [facility] #2 [place] [address] Jabier Peck MD #[address] [address] Medication Refill Social History Tobacco Use Types [...] CDT Gender Identity Male 05/03/2023 12:44 PM SHIPWRIGHT APPRENTICE Sexual Orientation Lesbian or Wolff 05/03/2023 12 :44 PM SHIPWRIGHT APPRENTICE documented as of this encounter Miscellaneous Notes * Telephone Encounter - Francine Soto RN - 07/04/2024 8:54 AM CST PCP: Tad Mcintosh MD WRIGHT APPRENTICE documented in this encounter Plan of Treatment Not on file documented as of this encounter Visit Diagnoses Not on filedocumented in this encounter Care Teams Computer Customer Support Specialist Relationship Specialty Start Date End Date Tad Mcintosh MD [address] [place] [address] PCP - General Family Medicine 01/17/24 Srikanth Adrian MD Social Media Executive Cardiovascular Disease - Cardiology 02/02/22 08/06/24 Gloria Martinez MD #[address] [address] Consulting Physician Urology 04/30/24 documented as of this encounter
--- OUTSIDE RECORDS SUMMARY | 2025-01-14 18:59 | XMS_ITS | Encounter Summary ---
Author Organization [facility] Address [address] [facility] [place] [address] Phone Care Team Providers Care Furnace Setter Name Role Phone Jabier Peck MD Primary Care Provider + [phone] Srikanth Adrian MD Unavailable Tad Romero MD Primary Care Provider [phone] Gloria Martinez MD Unavailable [phone] Reason for Visit * Reason Comments Medication Refill Encounter Details Date Type Department Care Team (Late st Contact Info) Description 04/13/2023 Refill [facility] #2 [place] [address] Jabier Peck MD #[address] [address] Medication Refill Social History Tobacco Use Types [...] CDT Gender Identity Male 05/03/2023 12:44 PM MEMS DEVICE 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 Sexual Orientation Lesbian or Wolff 05/03/2023 12 :44 PM MEMS DEVICE SCIENTIST documented as of this encounter Miscellaneous [...] Dept 02/26/23 Office Visit Kishore Prieto APRN, AIRPLANE ENGINEER [facility] 12/18/22 Telemedicine Jabier Peck MD [facility] 11/30/22 Telemedicine Kishore Prieto APRN, AIRPLANE ENGINEER [facility] 08/21/22 Office Visit J[facility] Peck MD [facility] [...] nos documented in this encounter Care Teams Furnace Setter Relationship Specialty Start Date End Date Jabier Peck MD #2 [facility] 205 [place] [address] PCP - General Family Medicine 06/22/20 01/16/24 Tad Mcintosh MD [address] [place] [address] PCP - General Family Medicine 01/17/24 Srikanth Adrian MD #2 [facility] 205 [place] [address] Career Development Manager Cardiovascular Disease - Cardiology 02/02/22 08/06/24 Gloria Martinez MD #2 [facility] 300 [place] [address] Consulting Physician Urology 04/30/24 documented as of this encounter
--- OUTSIDE RECORDS SUMMARY | 2025-01-14 18:59 | XMS_ITS | Encounter Summary ---
Author Organization [facility] Address [address] [facility] [place] [address] Phone Care Team Providers Care Search Optimization Analyst Name Role Phone Jabier Peck MD Primary Care Provider + [phone] Srikanth Adrain MD Unavailable Tad Romero MD Primary Care Provider [phone] Gloria Martinez MD Unavailable [phone] Reason for Visit * Reason Comments Medication Refill Encounter Details Date Type Department Care Team (Late st Contact Info) Description 05/14/2023 Refill [facility] #2 [place] [address] Jabier Peck MD #[address] [address] Medication Refill Social History Tobacco Use Types [...] CDT Gender Identity Male 05/03/2023 12:44 PM TOOL PROGRAMMER Sexual Orientation Lesbian or Wolff 05/03/2023 12 :44 PM TOOL PROGRAMMER documented as of this encounter Miscellaneous Notes [...] 90 days and meeting all other requirements PROGRAMMER documented in this encounter Plan of Treatment Not on file documented as of this encounter Visit Diagnoses Not on filedocumented in this encounter Care Teams Search Optimization Analyst Relationship Specialty Start Date End Date Jabier Peck MD #2 [facility] [address] [place] [address] PCP - General Family Medicine 06/22/20 01/16/24 Tad Mcintosh MD [address] [place] [address] PCP - General Family Medicine 01/17/24 Srikanth Adrian MD #2 [facility] [address] [place] [address] Macaroni Maker Cardiovascular Disease - Cardiology 02/02/22 08/06/24 Gloria Martinez MD #2 [facility] 300 [place] [address] Consulting Physician Urology 04/30/24 documented as of this encounter
--- OUTSIDE RECORDS SUMMARY | 2025-01-14 18:59 | XMS_ITS | Encounter Summary ---
Author Organization [facility] Address [address] [facility] [place] [address] Phone Care Team Providers Care Baby Formula Worker Name Role Phone Jabier Peck MD Primary Care Provider + [phone] Srikanth Adrian MD Unavailable Tad Romero MD Primary Care Provider [phone] Gloria Martinez MD Unavailable [phone] Reason for Visit * Reason Comments Medication Refill Encounter Details Date Type Department Care Team (Late st Contact Info) Description 12/11/2021 Refill [facility] #2 [place] [address] Jabier Peck MD #[address] [address] Medication Refill Social History Tobacco Use Types [...] CDT Gender Identity Male 05/03/2023 12:44 PM VIBRATION ANALYST Sexual Orientation Lesbian or Wolff 05/03/2023 12 :44 PM VIBRATION ANALYST COVID-19 Exposure Response Date Recorded In [...] 19 Confirmed 05/31/2022 05/31/2022 023 12:16 AM VIBRATION ANALYST Respiratory Rule Out - RPA 02/26/2023 02/26/2023 0 02/26/2023 11:31 AM CDT COVID - 19 02/26/2023 02/26/2023 03/08/2023 12:1 6 AM CDT documented as of this encounter Care Teams Baby Formula Worker Relationship Specialty Start Date End Date Jabier Peck MD #2 [facility] 205 [place] [address] PCP - General Family Medicine 06/22/20 01/16/24 Tad Mcintosh MD [address] [place] [address] PCP - General Family Medicine 01/17/24 Srikanth Adrian MD #2 [facility] [address] [place] [address] Mounted Police Cardiovascular Disease - Cardiology 02/02/22 08/06/24 Gloria Martinez MD #2 [facility] 300 [place] [address] Consulting Physician Urology 04/30/24 documented as of this encounter
--- OUTSIDE RECORDS SUMMARY | 2025-01-14 18:59 | XMS_ITS | Encounter Summary ---
Author Organization [facility] Address [address] [facility] [place] [address] Phone Care Team Providers Care Engineering Project Designer Name Role Phone Jabier Peck MD Primary Care Provider + [phone] Srikanth Adrian MD Unavailable Tad Romero MD Primary Care Provider [phone] Gloria Martinez MD Unavailable [phone] Reason for Visit * Reason Comments Medication Refill Encounter Details Date Type Department Care Team (Late st Contact Info) Description 02/24/2022 Refill [facility] #2 [place] [address] Jabier Peck MD #[address] [address] Medication Refill Social History Tobacco Use Types [...] CDT Gender Identity Male 05/03/2023 12:44 PM WELDING MACHINE OPERATOR RESISTANCE Sexual Orientation Lesbian or Wolff 05/03/2023 12 :44 PM WELDING MACHINE OPERATOR RESISTANCE COVID-19 Exposure Response Date Recorded In the [...] 19 Confirmed 05/31/2022 05/31/202203/2 023 12:16 AM WELDING MACHINE OPERATOR RESISTANCE Respiratory Rule Out - RPA 02/26/2023 02/26/2023 0 02/26/2023 11:31 AM CDT COVID - 19 02/26/2023 02/26/2023 03/08/2023 12:1 6 AM CDT documented as of this encounter Care Teams Engineering Project Designer Relationship Specialty Start Date End Date Jabier Peck MD #2 [facility] 205 [place] [address] PCP - General Family Medicine 06/22/20 01/16/24 Tad Mcintosh MD [address] [place] [address] PCP - General Family Medicine 01/17/24 Srikanth Adrian MD #[address] [address] [facility] [address] [place] [address] Foil Cutter Cardiovascular Disease - Cardiology 02/02/22 08/06/24 Gloria Martinez MD #2 [facility] 300 [place] [address] Consulting Physician Urology 04/30/24 documented as of this encounter
--- OUTSIDE RECORDS SUMMARY | 2025-01-14 18:59 | XMS_ITS | Encounter Summary ---
Author Organization [facility] Address [address] [place] [address] Phone Care Team Providers Care Customer Account Administrator Name Role Phone Jabier ePck MD Primary Care Provider + -[phone] Srikanth Adrian MD Unavailable Tad Romero MD Primary Care Provider [phone] Gloria Martinez MD Unavailable [phone] Reason for Visit * Reason Comments Medication Refill Encounter Details Date Type Department Care Team (Late st Contact Info) Description 01/06/2021 Refill [facility] - Family Medicine [facility] #2 [place] [id number] Jt Morillo MD [address] [place] [address] Medication Refill Social History Tobacco Use Types [...] Gender Identity Male 05/03/2023 12:44 PM MACHINE ASSEMBLER SUPERVISOR Sexual Orientation Lesbian or Wolff 05/03/2023 12 :44 PM MACHINE ASSEMBLER SUPERVISOR documented as of this encounter Miscellaneous [...] Confirmed 05/31/2022 05/31/2022 023 12:16 AM MACHINE ASSEMBLER SUPERVISOR Respiratory Rule Out - RPA 02/26/2023 02/26/2023 0 02/26/2023 11:31 AM CDT COVID - 19 02/26/2023 02/26/2023 03/08/2023 12:1 6 AM CDT documented as of this encounter Care Teams Customer Account Administrator Relationship Specialty Start Date End Date Jabier Peck MD #2 [facility] 205 [place] [address] PCP - General Family Medicine 06/22/20 01/16/24 Tad Mcintosh MD [address] [place] [address] PCP - General Family Medicine 01/17/24 Srikanth Adrian MD #2 [facility] [address] [place] [address] Forestry Foreman Cardiovascular Disease - Cardiology 02/02/22 08/06/24 Gloria Martinez MD #2 [facility] 300 [place] [address] Consulting Physician Urology 04/30/24 documented as of this encounter
--- OUTSIDE RECORDS SUMMARY | 2025-01-14 18:59 | XMS_ITS | Encounter Summary ---
Author Organization [facility] Address [address] [facility] [place] [address] Phone Care Team Providers Care Clerical Warehouseman Name Role Phone Jabier Peck MD Primary Care Provider + -[phone] Srikanth Adrian MD Unavailable Tad Romero MD Primary Care Provider [phone] Gloria Martinez MD Unavailable [phone] Reason for Visit * Reason Comments Medication Refill Encounter Details Date Type Department Care Team (Late st Contact Info) Description 07/22/2021 Refill [facility] [address] [place] [address] Jt Morillo MD [address] [place] [address] Medication Refill Social History Tobacco Use Types [...] CDT Gender Identity Male 05/03/2023 12:44 PM DIAGNOSTIC TECHNICIAN Sexual Orientation Lesbian or Wolff 05/03/2023 12 :44 PM DIAGNOSTIC TECHNICIAN COVID-19 Exposure Response Date Recorded In the last month, have you been in contact with someone who was confirmed or suspected to have Coronavirus / COVID-19? No / Unsure 07/14/2021 12:17 PM DIAGNOSTIC TECHNICIAN documented as of this encounter Miscellaneous Notes * Telephone Encounter - Michelle Wharton RN - 07/22/2021 2:26 PM DIAGNOSTIC TECHNICIAN Refilled Eliquis NOSTIC TECHNICIAN documented in this encounter Plan of Treatment Not on file documented as of this encounter Visit Diagnoses Diagnosis History of thrombophilia associated with MTHFR mutation documented in this encounter Additional Health Concerns Infection Onset Date Last Indicated Resolved Time COVID - 19 Confirmed 05/31/2022 05/31/2022 023 12:16 AM DIAGNOSTIC TECHNICIAN Respiratory Rule Out - RPA 02/26/2023 02/26/2023 0 02/26/2023 11:31 AM CDT COVID - 19 02/26/2023 02/26/2023 03/08/2023 12:1 6 AM CDT documented as of this encounter Care Teams Clerical Warehouseman Relationship Specialty Start Date End Date Jabier Peck MD #2 [facility] [address] [place] [address] PCP - General Family Medicine 06/22/20 01/16/24 Tad Mcintosh MD [address] [place] [address] PCP - General Family Medicine 01/17/24 Srikanth Adrian MD #2 [facility] [address] [place] [address] Sound Technician Supervisor Cardiovascular Disease - Cardiology 02/02/22 08/06/24 Gloria Martinez MD #2 [facility] [address] [place] [address] Consulting Physician Urology 04/30/24 documented as of this encounter
--- OUTSIDE RECORDS SUMMARY | 2025-01-14 18:59 | XMS_ITS | Encounter Summary ---
Author Organization [facility] Address [address] [facility] [place] [address] Phone Care Team Providers Care Reed Cleaner Name Role Phone Jabier Peck MD Primary Care Provider + [phone] Srikanth Adrian MD Unavailable Tad Romero MD Primary Care Provider [phone] Gloria Martinez MD Unavailable [phone] Reason for Visit * Reason Comments Medication Refill Encounter Details Date Type Department Care Team (Late st Contact Info) Description 03/19/2023 Refill [facility] #2 [place] [address] Jabier Peck MD #[address] [address] Medication Refill Social History Tobacco Use Types [...] Gender Identity Male 05/03/2023 12:44 PM DATA COMPILER Sexual Orientation Lesbian or Wolff 05/03/2023 12 :44 PM DATA COMPILER COVID-19 Exposure Response Date Recorded In the [...] [facility] 05/03/22 Telemedicine Jabier Peck MD [facility] [place] Showing recent visits within [...] unspecified documented in this encounter Care Teams Reed Cleaner Relationship Specialty Start Date End Date Jabier Peck MD #2 [facility] 205 [place] [address] PCP - General Family Medicine 06/22/20 01/16/24 Tad Mcintosh MD [address] [place] [address] PCP - General Family Medicine 01/17/24 Srikanth Adrian MD #2 [facility] 205 [place] [address] Golf Club Head Inspector And Adjuster Cardiovascular Disease - Cardiology 02/02/22 08/06/24 Gloria Martinez MD #2 [facility] [address] [place] [address] Consulting Physician Urology 04/30/24 documented as of this encounter
--- OUTSIDE RECORDS SUMMARY | 2025-01-14 19:00 | XMS_ITS | Encounter Summary ---
Author Organization [facility] Address [address] [place] [address] Phone Care Team Providers Care Stake Setter Name Role Phone Jabier Peck MD Primary Care Provider + -[phone] Srikanth Adrian MD Unavailable Tad Romero MD Primary Care Provider [phone] Gloria Martinez MD Unavailable [phone] Encounter Details Date Type Department Care Team (Late st Contact Info) Description 01/04/2023 Telephone [facility] Medical/Surgical 3 Surge Waiver [address] [place] [address] Jabier Peck MD #[address] [address] Social History Tobacco Use Types Packs/Day Years [...] CDT Gender Identity Male 05/03/2023 12:44 PM MARKSMANSHIP INSTRUCTOR Sexual Orientation Lesbian or Wolff 05/03/2023 12 :44 PM MARKSMANSHIP INSTRUCTOR documented as of this encounter Miscellaneous [...] documented as of this encounter Care Teams Stake Setter Relationship Specialty Start Date End Date Jabier Peck MD #[address] [address] PCP - General Family Medicine 06/22/20 01/16/24 Tad Mcintosh MD [address] [place] [address] PCP - General Family Medicine 01/17/24 Srikanth Adrian MD #2 [facility] 205 [place] [address] User Experience Lead Cardiovascular Disease - Cardiology 02/02/22 08/06/24 Gloria Martinez MD #2 [facility] [address] [place] [address] Consulting Physician Urology 04/30/24 documented as of this encounter
--- OUTSIDE RECORDS SUMMARY | 2025-01-14 19:00 | XMS_ITS | Encounter Summary ---
Author Organization [facility] Address [address] [facility] [place] [place] [address] Phone Care Team Providers Care Hot Plate Plywood Press Laborer Name Role Phone Jabier Peck MD Primary Care Provider + [phone] Srikanth Adrian MD Unavailable Tad Romero MD Primary Care Provider +[phone] Gloria Martinez MD Unavailable [phone] Reason for Visit * Reason Comments Medication Refill Encounter Details Date Type Department Care Team (Late st Contact Info) Description 10/24/2022 Refill [facility] #2 [place] [address] Jabier Peck MD #[address] [address] Medication Refill Social History Tobacco Use Types [...] Gender Identity Male 05/03/2023 12:44 PM CYCLE MANAGER Sexual Orientation Lesbian or Wolff 05/03/2023 12 :44 PM CYCLE MANAGER documented as of this encounter Miscellaneous [...] documented as of this encounter Care Teams Hot Plate Plywood Press Laborer Relationship Specialty Start Date End Date Jabier Peck MD #2 [facility] 205 [place] [address] PCP - General Family Medicine 06/22/20 01/16/24 Tad Mcintosh MD [address] [place] [address] PCP - General Family Medicine 01/17/24 Srikanth Adrian MD #2 [facility] [address] [place] [address] Medical Chemist Cardiovascular Disease - Cardiology 02/02/22 08/06/24 Gloria Martinez MD #[address] [facility] [address] [place] [address] Consulting Physician Urology 04/30/24 documented as of this encounter
--- OUTSIDE RECORDS SUMMARY | 2025-01-14 19:00 | XMS_ITS | Clinical Summary ---
Author Organization [facility] Address [address] [place] [address] Care Team Providers Care Clearance Diver Name Role Phone Tad Mcintosh DO Primary [...] 07/17/2024 Assessment & Plan (07/17/2024 1:09 PM UNDERTAKER HELPER): Continue increased hydration Avoid acidic foods and fluids for one more week Thrombophilia 01/25/2023 Palpitations 11/22/2022 Chest pain 07/31/2022 Essential hypertension 07/31/2022 Tongue lesion 04/28/2020 Assessment & Plan (06/26/2024 9:29 AM UNDERTAKER HELPER): Has pain medication prescribed by Manasa Cortes at [facility] will confirm use of [place] after surgery Stop Eliquis for 5 days before and after Excision of left lateral and right lateral tongue lesions with repair Risks and complications: Anesthesia, bleeding, infection, benign versus malignant pathology, recurrence of lesion, injury to arteries, nerves and veins, scarring and need for further treatment Assessment & Plan (04/28/2020 1:41 PM UNDERTAKER HELPER): Speak to [facility] about smoothing out right first [...] week Assessment & Plan (04/28/2020 1:41 PM UNDERTAKER HELPER): Speak to [facility] about smoothing out right first [...] (04/18/2019): Added automatically from request for surgery [id number] Hematochezia 03/04/2019 Overview (03/04/2019): Added automatically from request for surgery [id number] Family history of colon cancer 03/04/2019 Overview (03/04/2019): Added automatically from request for surgery [id number] 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 [place] level is in process. Will hold at [...] recommended Assessment & Plan (07/08/2019 3:43 PM UNDERTAKER HELPER): Healthy, low carbohydrate lifestyle and exercise for [...] hydration Assessment & Plan (08/10/2017 1:23 PM UNDERTAKER HELPER): s/p Right inferior parathyroidectomy - 08/10/2016 pre [...] renal Assessment & Plan (05/01/2017 10:36 PM UNDERTAKER HELPER): s/p Right inferior parathyroidectomy - 08/10/2016 pre [...] future Assessment & Plan (08/10/2017 1:24 PM UNDERTAKER HELPER): Recheck levels Assessment & Plan (12/17/2016 8:01 AM CDT): Recheck levels Type 2 diabetes mellitus wit h stage 3 chronic kidney disease, with long-term current use of insulin 12/11/2016 Assessment & Plan (07/08/2019 3:42 PM UNDERTAKER HELPER): A1c 5.5% Jun 2019 on no medications. [...] needed. Assessment & Plan (08/10/2017 1:26 PM UNDERTAKER HELPER): - A1c today 5.5 % - due [...] months. Assessment & Plan (05/01/2017 10:36 PM UNDERTAKER HELPER): - reviewed BS log - BS well [...] statin. Assessment & Plan (08/10/2017 1:23 PM UNDERTAKER HELPER): On statin therapy - advised to increase physical activity - advised low fat/chol diet and avoid greasy and junk food Assessment & Plan (05/01/2017 10:37 PM UNDERTAKER HELPER): On statin therapy - advised to increase [...] activity Assessment & Plan (08/10/2017 1:24 PM UNDERTAKER HELPER): BP well controlled, chronic At goal advised [...] using it. Had sleep study with Dr. uS in 2014-IMPRESSION: The above polysomnography reveals evidence [...] quit smoking so they can encourage you. Mobility Developer referral placed. Class 2 severe obesity due t o excess calories with serious comorbidity and body mass index (BMI) of 37.0 to 37.9 in adult 08/16/2012 Overview (09/22/2016): Obesity Assessment & Plan (12/25/2019 1:57 PM CDT): Healthy, low carbohydrate lifestyle and exercise for 150min/week recommended Referral for alternative dispute resolution mediator placed. Assessment & Plan (10/16/2019 11:40 AM [...] greens, fat-free milk, cottage cheese, nuts like lrutcfy-yfsgjei-tckmcbj, protein bars with 10-15 g of protein [...] discussed. Assessment & Plan (05/01/2017 10:37 PM UNDERTAKER HELPER): Obesity is improving with treatment. Discussed the [...] time. Assessment & Plan (05/01/2017 10:37 PM UNDERTAKER HELPER): Hypertension is improving with treatment. Continue current [...] kidney disease) stage 3, GFR 30-59 ml/min ([facility]) [place] poisoning Headache, tension-type Sleep apnea patient had [...] on file Legal Sex Male 5:22 PM UNDERTAKER HELPER Gender Identity Not on file Sexual Orientation Not on file Obstetrics History Last Filed Vital Signs Vital Sign Reading Time Taken Comments Blood Pressure 136/84 07/10/2024 4:54 PM UNDERTAKER HELPER Pulse 62 07/10/2024 4:54 PM UNDERTAKER HELPER Temperature 36.4 C (97.5 F) 07/10/2024 4:54 PM UNDERTAKER HELPER Respiratory Rate 16 07/10/2024 4:54 PM UNDERTAKER HELPER Oxygen Saturation 97% 07/10/2024 4:54 PM UNDERTAKER HELPER Inhaled Oxygen Concentration - - Weight 105.8 kg (233 lb 4 oz) 07/10/2024 10:09 A M UNDERTAKER HELPER Height 175.3 cm (5' 9) 07/10/2024 10:09 AM UNDERTAKER HELPER Body Mass Index 34.44 07/10/2024 10:09 AM UNDERTAKER HELPER Plan of Treatment Health Maintenance Due Date [...] 02/26/2029 02/26/2019 Medical Devices Implanted Type Area Child Care Centre Manager Device Identifier Shelf Expiration Date Model / Serial / Lot Hedgeable Angio-Seal Vip 6fr Closere Device [id number] - [id number] Implanted:Qty: 1 on 10/12/2022 by Eliel Ortiz MD at [facility] Other - see comments H[employer] 03/17/2023 [id number] / / [id number] [employer] [id number] 4mm 44mm Compression Headless Foot Ankle Screw Bone - [id number] Implanted:Qty: 1 on 04/25/2019 by Chidi Rios DPM at [facility] Right: Toes [employer] [id number] / / [employer] Usa Ezm 03-27-10 Easyclip Si 2mm [id number] Monocortical Superelastic Reamer - [id number] Implanted:Qty: 1 on 04/25/2019 by Chidi Rios DPM at [facility] Right: Toes [employer]sa 11/16/2023 EZM 03-27-10 / / [id number] [employer] Usa Ezm 03-27-10 Easyclip Si 2mm [id number] Monocortical Superelastic Reamer - [id number] Implanted:Qty: 1 on 04/25/2019 by Chidi Rios DPM at [facility] Right: Toes [employer] 11/16/2023 EZM 10-10 / / [id number] Toe Tac Xpress Hammertoe Fixation System Implanted:Qty: 2 on 04/25/2019 by Chidi Rios DPM at [facility] Right: Toes [employer] [id number] 05/27/2021 [id number] / [id number] / [id number] Kat[employer]ka Wire Implanted:Qty: 1 on 04/25/2019 by Chidi Rios DPM at [facility] Right: Toes [employer] 07/18/2028 [id number] / / [id number] Procedures Procedure Name Priority Date/Time Associated Diagnosis Comments EGFR STAT 04/19/2023 3:53 PM CDT HEMOGLOBIN A1C Routine 12/13/2019 2:55 PM CDT LIPID PANEL Routine 05/17/2018 2:25 PM UNDERTAKER HELPER Type 2 diabetes mellitus with hyperglycemia, with long-term current use of insulin (HCC) from Last 3 Months or Most Recently Relevant to Health Maintenance Results * eGFR (04/19/2023 3:53 PM CDT) eGFR 51 mL/min/1. 73 m2 [facility] ([place]) Comment: Interpretive Data Reference Interval Normal >/= [...] BLOOD ORDERABLE S Final Result [facility] ([place]) 1 [facility] Department [place] [address] * (ABNORMAL) Hemoglobin A1c (12/13/2019 2:55 PM CDT) Blood specimen (specimen) 12/13/2019 2:55 PM CDT Narrative [facility] - 12/13/2019 2:55 PM CDT Results in labs Historical Provider LAB BLOOD ORDERABLES Becky l Result [place], [place] [phone] * (ABNORMAL) Lipid panel (05/17/2018 2:25 PM UNDERTAKER HELPER) Cholesterol 159 30 - 199 mg/dL CERNER [...] (EVER) Blood specimen (specimen) 05/17/2018 2:25 PM UNDERTAKER HELPER 05/17/2018 5:15 PM UNDERTAKER HELPER Narrative [facility] ([place]) - 05/17/2018 6:14 PM UNDERTAKER HELPER Tori Sims MD LAB BLOOD ORDERABLE S Final Result [facility] ([place]) 1 [facility] Department [place] [address] from Last 3 Months or Most Recently Relevant to Health Maintenance Insurance IDPA [facility] MEDICARE ADVANTAGE MEDICARE [facility] MEDICARE ADVANTAGE [facility] Address: [address] [address] [place] [address] [facility] MEDICARE ADVANTAGE [facility] Address: [address] [address] IDPA [facility] MEDICARE ADVANTAGE Advance Directives For more information, please contact: [phone] * Full Code (Latest Code Status on File) Date Activated Date Inactivated Comments 10/12/2022 2:12 PM 10/12/2022 10:46 PM * Full Code Date Activated Date Inactivated Comments 09/24/2017 9:04 PM 09/30/2017 5:22 PM Care Teams Clearance Diver Relationship Specialty Start Date End Date Tad Mcintosh DO [address] [place] [address] PCP - General Family Medicine 06/26/24
--- OUTSIDE RECORDS SUMMARY | 2025-01-14 19:00 | XMS_ITS | Encounter Summary ---
Author Organization [facility] Address [address] [facility] [address] [place] [address] Phone Care Team Providers Care Tourist Information Officer Name Role Phone Jabier Peck MD Primary Care Provider + [phone] Srikanth Adrian MD Unavailable Tad Romero MD Primary Care Provider [phone] Gloria Martinez MD Unavailable [phone] Reason for Visit * Reason Comments Medication Refill Encounter Details Date Type Department Care Team (Late st Contact Info) Description 08/30/2022 Refill [facility] [address] [place] [address] Jabier Peck MD #[address] [address] Medication Refill Social History Tobacco Use Types [...] CDT Gender Identity Male 05/03/2023 12:44 PM COMPUTER ARTIST Sexual Orientation Lesbian or Wolff 05/03/2023 12 :44 PM COMPUTER ARTIST COVID-19 Exposure Response Date Recorded In the last 10 days, have yo u been in contact with someone who was confirmed or suspected to have Coronavirus/COVID-19? No / Unsure 08/21/2022 12:53 PM COMPUTER ARTIST documented as of this encounter Miscellaneous Notes [...] 12/13/21 Telemedicine Kishore Prieto APRN, [facility] [place] Showing recent visits within past 365 days [...] documented as of this encounter Care Teams Tourist Information Officer Relationship Specialty Start Date End Date Jabier Peck MD #2 [facility] [address] [place] [address] PCP - General Family Medicine 06/22/20 01/16/24 Tad Mcintosh MD [address] [place] [address] PCP - General Family Medicine 01/17/24 Srikanth Adrian MD #2 [facility] [address] [place] [address] Copy Center Associate Cardiovascular Disease - Cardiology 02/02/22 08/06/24 Gloria Martinez MD #2 [facility] [address] [place] [address] Consulting Physician Urology 04/30/24 documented as of this encounter
--- OUTSIDE RECORDS SUMMARY | 2025-01-14 19:00 | XMS_ITS | Referral Summary ---
Author Organization [facility] Address [address] [place] [address] Care Team Providers Care Fisher Trawl Line Name Role Phone Tad Mcintosh DO Primary [...] 07/17/2024 Assessment & Plan (07/17/2024 1:09 PM PHARMACY INNOVATION ASSISTANT): Continue increased hydration Avoid acidic foods and fluids for one more week Thrombophilia 01/25/2023 Palpitations 11/22/2022 Chest pain 07/31/2022 Essential hypertension 07/31/2022 Tongue lesion 04/28/2020 Assessment & Plan (06/26/2024 9:29 AM PHARMACY INNOVATION ASSISTANT): Has pain medication prescribed by Manasa Cortes at [facility] will confirm use of [place] after surgery Stop Eliquis for 5 days before and after Excision of left lateral and right lateral tongue lesions with repair Risks and complications: Anesthesia, bleeding, infection, benign versus malignant pathology, recurrence of lesion, injury to arteries, nerves and veins, scarring and need for further treatment Assessment & Plan (04/28/2020 1:41 PM PHARMACY INNOVATION ASSISTANT): Speak to [facility] about smoothing out right first [...] week Assessment & Plan (04/28/2020 1:41 PM PHARMACY INNOVATION ASSISTANT): Speak to [facility] about smoothing out right first [...] (04/18/2019): Added automatically from request for surgery [id number] Hematochezia 03/04/2019 Overview (03/04/2019): Added automatically from request for surgery [id number] Family history of colon cancer 03/04/2019 Overview (03/04/2019): Added automatically from request for surgery [id number] 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 [place] level is in process. Will hold at [...] recommended Assessment & Plan (07/08/2019 3:43 PM PHARMACY INNOVATION ASSISTANT): Healthy, low carbohydrate lifestyle and exercise for [...] hydration Assessment & Plan (08/10/2017 1:23 PM PHARMACY INNOVATION ASSISTANT): s/p Right inferior parathyroidectomy - 08/10/2016 pre [...] renal Assessment & Plan (05/01/2017 10:36 PM PHARMACY INNOVATION ASSISTANT): s/p Right inferior parathyroidectomy - 08/10/2016 pre [...] future Assessment & Plan (08/10/2017 1:24 PM PHARMACY INNOVATION ASSISTANT): Recheck levels Assessment & Plan (12/17/2016 8:01 AM CDT): Recheck levels Type 2 diabetes mellitus wit h stage 3 chronic kidney disease, with long-term current use of insulin 12/11/2016 Assessment & Plan (07/08/2019 3:42 PM PHARMACY INNOVATION ASSISTANT): A1c 5.5% Jun 2019 on no medications. [...] needed. Assessment & Plan (08/10/2017 1:26 PM PHARMACY INNOVATION ASSISTANT): - A1c today 5.5 % - due [...] months. Assessment & Plan (05/01/2017 10:36 PM PHARMACY INNOVATION ASSISTANT): - reviewed BS log - BS well [...] statin. Assessment & Plan (08/10/2017 1:23 PM PHARMACY INNOVATION ASSISTANT): On statin therapy - advised to increase physical activity - advised low fat/chol diet and avoid greasy and junk food Assessment & Plan (05/01/2017 10:37 PM PHARMACY INNOVATION ASSISTANT): On statin therapy - advised to increase [...] activity Assessment & Plan (08/10/2017 1:24 PM PHARMACY INNOVATION ASSISTANT): BP well controlled, chronic At goal advised [...] f/u with him Explained the risk of correction MAK and encourage use of CPAP or [...] quit smoking so they can encourage you. Resident Hall Director referral placed. Class 2 severe obesity due t o excess calories with serious comorbidity and body mass index (BMI) of 37.0 to 37.9 in adult 08/16/2012 Overview (09/22/2016): Obesity Assessment & Plan (12/25/2019 1:57 PM CDT): Healthy, low carbohydrate lifestyle and exercise for 150min/week recommended Referral for core rescuer placed. Assessment & Plan (10/16/2019 11:40 AM [...] greens, fat-free milk, cottage cheese, nuts like kyqbkjm-jyqgiyv-rbdzzcm, protein bars with 10-15 g of protein [...] discussed. Assessment & Plan (05/01/2017 10:37 PM PHARMACY INNOVATION ASSISTANT): Obesity is improving with treatment. Discussed the [...] time. Assessment & Plan (05/01/2017 10:37 PM PHARMACY INNOVATION ASSISTANT): Hypertension is improving with treatment. Continue current [...] on file Legal Sex Male 5:22 PM PHARMACY INNOVATION ASSISTANT Gender Identity Not on file Sexual Orientation Not on file Last Filed Vital Signs Vital Sign Reading Time Taken Comments Blood Pressure 136/84 07/10/2024 4:54 PM PHARMACY INNOVATION ASSISTANT Pulse 62 07/10/2024 4:54 PM PHARMACY INNOVATION ASSISTANT Temperature 36.4 C (97.5 F) 07/10/2024 4:54 PM PHARMACY INNOVATION ASSISTANT Respiratory Rate 16 07/10/2024 4:54 PM PHARMACY INNOVATION ASSISTANT Oxygen Saturation 97% 07/10/2024 4:54 PM PHARMACY INNOVATION ASSISTANT Inhaled Oxygen Concentration - - Weight 105.8 kg (233 lb 4 oz) 07/10/2024 10:09 A M PHARMACY INNOVATION ASSISTANT Height 175.3 cm (5' 9) 07/10/2024 10:09 AM PHARMACY INNOVATION ASSISTANT Body Mass Index 34.44 07/10/2024 10:09 AM PHARMACY INNOVATION ASSISTANT Plan of Treatment Not on file Medical Devices Implanted Type Area Foxing Painter Device Identifier Shelf Expiration Date Model / Serial / Lot [employer] Angio-Seal Vip 6fr Closere Device [id number] - [id number] Implanted:Qty: 1 on 10/12/2022 by Eliel Ortiz MD at [facility] Other - see comments [employer] Kalin 03/17/2023 [id number] / / [id number] [employer] [id number] 4mm 44mm Compression Headless Foot Ankle Screw Bone - [id number] Implanted:Qty: 1 on 04/25/2019 by Chidi Rios DPM at [facility] Right: Toes [employer] [id number] / / [employer] [place] Ezm 03-27-10 Easyclip Si 2mm [id number] Monocortical Superelastic Reamer - [id number] Implanted:Qty: 1 on 04/25/2019 by Chidi Rios DPM at [facility] Right: Toes [employer] 11/16/2023 EZIvett 03-27-10 / / [id number] [employer] Ezm 10-10-10 Easyclip Si 2mm [id number] Monocortical Superelastic Reamer - [id number] Implanted:Qty: 1 on 04/25/2019 by Chidi Rios DPM at [facility] Right: Toes [employer] 11/16/2023 EZM 10-10-10 / / [id number] Toe Tac Xpress Hammertoe Fixation System Implanted:Qty: 2 on 04/25/2019 by Chidi Rios DPM at [facility] Right: Toes [employer] [id number] 05/27/2021 [id number] / [id number] / [id number] [employer] Wire Implanted:Qty: 1 on 04/25/2019 by Chidi Rios DPM at [facility] Right: Toes [employer] 07/18/2028 [id number] / / [id number] Procedures Procedure Name Priority Date/Time Associated Diagnosis Comments EGFR STAT 04/19/2023 3:53 PM CDT HEMOGLOBIN A1C Routine 12/13/2019 2:55 PM CDT LIPID PANEL Routine 05/17/2018 2:25 PM PHARMACY INNOVATION ASSISTANT Type 2 diabetes mellitus with hyperglycemia, with long-term current use of insulin (HCC) from Last 3 Months or Most Recently Relevant to Health Maintenance Results * eGFR (04/19/2023 3:53 PM CDT) eGFR 51 mL/min/1. 73 m2 [facility] ([place]) Comment: Interpretive Data Reference Interval Normal >/= [...] [facility]/ZIP Co de Phone Number [facility] 1 [facility] Department [place] [address] * (ABNORMAL) Hemoglobin A1c (12/13/2019 2:55 PM CDT) Blood specimen (specimen) 12/13/2019 2:55 PM CDT Narrative [facility] - 12/13/2019 2:55 PM CDT Results in labs Aliza Carlson MD LAB BLOOD ORDERABLES Becky l Result Performing Organization Address [facility]/ZIP Co de Phone Number [place], [place] [phone] * (ABNORMAL) Lipid panel (05/17/2018 2:25 PM PHARMACY INNOVATION ASSISTANT) Cholesterol 159 30 - 199 mg/dL [facility] [...] 2018. Triglycerides 143 <=149 mg/dL [facility] [place] Comment: Interpretive Data Ages < or = [...] (EVER) Blood specimen (specimen) 05/17/2018 2:25 PM PHARMACY INNOVATION ASSISTANT 05/17/2018 5:15 PM PHARMACY INNOVATION ASSISTANT Narrative [facility] ([place]) - 05/17/2018 6:14 PM PHARMACY INNOVATION ASSISTANT Cleoja Levi Sims MD LAB BLOOD ORDERABLE S Final Result [facility] ([place]) 1 [facility] Department [place] [address] from Last 3 Months or Most Recently Relevant to Health Maintenance Insurance IDPA [facility] MEDICARE ADVANTAGE MEDICARE [facility] MEDICARE ADVANTAGE [facility] MEDICARE ADVANTAGE IDPA [facility] MEDICARE ADVANTAGE Advance Directives For more information, please contact: [phone] * Full Code (Latest Code Status on File) Date Activated Date Inactivated Comments 10/12/2022 2:12 PM 10/12/2022 10:46 PM * Full Code Date Activated Date Inactivated Comments 09/24/2017 9:04 PM 09/30/2017 5:22 PM Care Teams Fisher Trawl Line Relationship Specialty Start Date End Date Tad Mcintosh DO [address] [place] [address] PCP - General Family Medicine 1/9/25
--- OUTSIDE RECORDS SUMMARY | 2025-01-14 19:00 | XMS_ITS | Encounter Summary ---
Author Organization [facility] Address [address] [facility] [place] [address] Phone Care Team Providers Care Assistant Broker Name Role Phone Jabier Peck MD Primary Care Provider + [phone] Srikanth Adrian MD Unavailable Tad Romero MD Primary Care Provider [phone] Gloria Martinez MD Unavailable [phone] Reason for Visit * Reason Comments Medication Refill Encounter Details Date Type Department Care Team (Late st Contact Info) Description 07/10/2022 Refill [facility] #2 [place] [address] Jabier Peck MD #[address] [address] Medication Refill Social History Tobacco Use Types [...] CDT Gender Identity Male 05/03/2023 12:44 PM PRODUCER DIRECTOR Sexual Orientation Lesbian or Wolff 05/03/2023 12 :44 PM PRODUCER DIRECTOR documented as of this encounter Miscellaneous Notes * Telephone Encounter - Anjali Hartley RN - 07/10/2022 12:34 PM PRODUCER DIRECTOR Refill requested too soon. UCER DIRECTOR documented in this encounter Plan of [...] as of this encounter Care Teams Assistant Broker Relationship Specialty Start Date End Date Jabier Peck MD #[address] [address] PCP - General Family Medicine 06/22/20 01/16/24 Tad Mcintosh MD [address] [place] [address] PCP - General Family Medicine 01/17/24 Srikanth Adrian MD #2 [facility] [address] [place] [address] Day Care Center Director Cardiovascular Disease - Cardiology 02/02/22 08/06/24 Gloria Martinez MD #[address] [address] Consulting Physician Urology 04/30/24 documented as of this encounter
--- OUTSIDE RECORDS SUMMARY | 2025-01-14 19:00 | XMS_ITS | Encounter Summary ---
Author Organization [facility] Address [address] [facility] [place] [address] Phone Care Team Providers Care Small Lot Operator Name Role Phone Jabier Peck MD Primary Care Provider [phone] Srikanth Adrian MD Unavailable Tad Romero MD Primary Care Provider [phone] Gloria Martinez MD Unavailable [phone] Reason for Visit * Reason Onset Date Comments Advice Only 12/18/2022 Encounter Details Date Type Department Care Team (Late st Contact Info) Description 12/18/2022 Telephone [facility] [address] [place] [phone] Jabier Peck MD #[address] [address] Advice Only Social History Tobacco Use Types [...] CDT Gender Identity Male 05/03/2023 12:44 PM ACTIVATED SLUDGE ATTENDANT Sexual Orientation Lesbian or Wolff 05/03/2023 12 :44 PM ACTIVATED SLUDGE ATTENDANT documented as of this encounter Miscellaneous [...] as of this encounter Care Teams Small Lot Operator Relationship Specialty Start Date End Date Jabier Peck MD #[address] [facility] [address] [address] PCP - General Family Medicine 06/22/20 01/16/24 Tad Mcintosh MD [address] [place] [address] PCP - General Family Medicine 01/17/24 Srikanth Adrian MD #[address] [facility] [address] [place] [address] Director Custom Cardiovascular Disease - Cardiology 02/02/22 08/06/24 Gloria Martinez MD #[address] [facility] [place] [address] [place] [address] Consulting Physician Urology 04/30/24 documented as of this encounter
--- OUTSIDE RECORDS SUMMARY | 2025-01-14 19:00 | XMS_ITS | Encounter Summary ---
Author Organization [facility] Address [address] [place] [address] Phone Care Team Providers Care Coil Strapper Name Role Phone Jabier Peck MD Primary Care Provider + [phone] Srikanth Adrian MD Unavailable Tad Romero MD Primary Care Provider [phone] Gloria Martinez MD Unavailable [phone] Reason for Visit * Reason Comments Medication Refill Encounter Details Date Type Department Care Team ([facility] st Contact Info) Description 08/19/2022 [facility] [address] [place] [id number] Jt Morillo MD [address] [place] [address] Medication Refill Social History Tobacco Use Types [...] CDT Gender Identity Male 05/03/2023 12:44 PM FILTER CHANGING TECHNICIAN Sexual Orientation Lesbian or Wolff 05/03/2023 12 :44 PM FILTER CHANGING TECHNICIAN COVID-19 Exposure Response Date Recorded In the last 10 days, have yo u been in contact with someone who was confirmed or suspected to have Coronavirus/COVID-19? No / Unsure 08/21/2022 12:53 PM FILTER CHANGING TECHNICIAN documented as of this encounter Miscellaneous Notes * Telephone Encounter - Aisha Escamilla RN - 08/21/2022 12:02 PM CST Approved Eliquis per last f/u note. ER CHANGING TECHNICIAN documented in this encounter Plan of [...] documented as of this encounter Care Teams Coil Strapper Relationship Specialty Start Date End Date Jabier Peck MD [address] [facility] [address] [place] [address] PCP - General Family Medicine 06/22/20 01/16/24 Tad Mcintosh MD [address] [place] [address] PCP - General Family Medicine 01/17/24 Srikanth Adrian MD [address] [facility] [address] [place] [address] Smudger Cardiovascular Disease - Cardiology 02/02/22 08/06/24 Gloria Martinez MD [address]2 [facility] [address] [place] [address] Consulting Physician Urology 04/30/24 documented as of this encounter
--- OUTSIDE RECORDS SUMMARY | 2025-01-14 19:00 | XMS_ITS | Encounter Summary ---
Author Organization [facility] Address [address] [place] [address] Phone Care Team Providers Care Scouring Train Operator Chief Name Role Phone Jabier Peck MD Primary Care Provider + [phone] Srikanth Adrian MD Unavailable Tad Romero MD Primary Care Provider [phone] Gloria Martinez MD Unavailable [phone] Reason for Visit * Reason Onset Date Comments Medication Refill Requesting new referral to [facility] 11/10/2022 Encounter Details Date Type Department Care Team (Late st Contact Info) Description 11/10/2022 Refill [facility] - [facility] Medicine [facility] [address] [place] [address] Jabier Peck MD [address] [address] Medication Refill; Requesting new referral to [facility] Social History Tobacco Use Types [...] CDT Gender Identity Male 05/03/2023 12:44 PM DYE STAND LOADER Sexual Orientation Lesbian or Wolff 05/03/2023 12 :44 PM DYE STAND LOADER documented as of this encounter Miscellaneous Notes * Telephone Encounter - Nikky Irby - 11/10/2022 1:42 PM CDT C: Tae Kent is requesting a new referral to [facility]. . Please call Tae (relationship [...] [place] 12/13/21 Telemedicine Kishore Prieto APRN, [facility] Showing recent visits [...] RICHARD [facility] 12/13/21 Telemedicine Kishore Prieto APRN, CONTRACTS REPRESENTATIVE [facility] Showing recent visits [...] documented as of this encounter Care Teams Scouring Train Operator Chief Relationship Specialty Start Date End Date Jabier Peck MD [address] [facility] [address] [place] [address] PCP - General Family Medicine 06/22/20 01/16/24 Tad Mcintosh MD [address] [place] [address] PCP - General Family Medicine 01/17/24 Srikanth Adrian MD [address] [facility] [address] [place] [address] Venetian Blind Mechanic Cardiovascular Disease - Cardiology 02/02/22 08/06/24 Gloria Martinez MD #2 [facility] [address] [place] [address] Consulting Physician Urology 04/30/24 documented as of this encounter
--- NOTE | 2025-01-14 19:05 | PC.NURSE ---
Assumed care of pt from Bola. Pt ambulatory back from bathroom with steady gait. Pt placed in gown and on NIBP, SpO2, and cardiac monitors. No distress noted. Pt has rash to bilateral legs states is psoriasis and takes a cream for that doesn't work per pt report. Pt states drinks regular soda. Pt reports no recent illnesses outside of his hospitalization last weekend for left upper extremity weakness. PT states that those symptoms have resolved and was diagnosed with TIA. Pt is current smoker. Pt states will not be admitted if needed for elevated blood sugars and states will not sign out AMA either. IV placed and labs drawn and taken to lab. Pt aware will need urine specimen.
[2025-01-14 19:32] LABS: Hematocrit 37.7 % (40.0-54.0); Hemoglobin 12.9 g/dL (14.0-18.0); Immature Granulocyte Percent A 0.3 % (0.0-0.0); Lymphocytes Absolute Auto 2.46 K/mm3 (1.10-4.50); Mean Corpuscular HGB Conc 34.2 g/dL (32-36); Mean Corpuscular Hemoglobin 32.3 pg (27.0-31.0); Mean Corpuscular Volume 94.3 fL (78.0-102.0); Nucleated Red Blood Cells Absolute Auto 0.00 K/mm3 (0.00-0.00); Nucleated Red Blood Cells Perc 0.0 % (0-0.0); Platelet Count Result 202 K/mm3 (150-420); Red Blood Count 4.00 M/mm3 (4.70-6.10); White Blood Count 8.9 K/mm3 (4.8-10.8)
[2025-01-14 19:48] LABS: Alanine Aminotransferase 34 U/L (6-50); Albumin Level 3.9 g/dL (3.5-5.1); Alkaline Phosphatase 108 U/L (38-126); Anion Gap 8 mmol/L (4-12); Aspartate Amino Transferase 28 U/L (17-59); Bilirubin,Total 0.4 mg/dL (0.2-1.3); Blood Urea Nitrogen 14 mg/dL (9-20); Calcium 8.5 mg/dL (8.4-10.2); Carbon Dioxide 20 mmol/L (22-30); Chloride 101 mmol/L (98-107); Estimated CRCL calculation 69 ml/min; Estimated Glomerular Filt Rate 58; Lipase 148 U/L (23-300); Osmolality Calculated 298 mOsm/kg (285-295); Potassium 3.8 mmol/L (3.4-5.0); Sodium 129 mmol/L (137-145); Total Protein 5.9 g/dL (6.3-8.2)
[2025-01-14] MEDS: INSULIN HUMAN REGULAR (*BKC) 1,000 UNITS/10 ML VIAL 10 UNITS IV PUSH ×2 (19:50→21:46)
[2025-01-14] MEDS: SODIUM CHLORIDE 0.9% IV 1,000 ML 999 ML IV CONT (19:51)
[2025-01-14 20:00] LABS: Troponin I < 0.012 ng/mL (0.000-0.034)
[2025-01-14 20:08] LABS: Add Urine Microscopic? NO; Appearance Urine Clear (Clear); Glucose Urine UA 3+ (Negative); Leukocyte Esterase Ur Negative LEU/UL (Negative); Nitrate Urine Negative (Negative); Specific Grav Ur <= 1.005 (1.010-1.020)
[2025-01-14] MEDS: LACTATED RINGERS 1,000 ML 999 ML IV CONT (20:23)
[2025-01-14 20:37] LABS: Glucose > 625 mg/dL (65-110)
--- NOTE | 2025-01-14 22:42 | PC.NURSE ---
ERP aware of FSBS and will give sandwich and cottage cheese. ERP states if FSBS stable in 1 hour will plan for discharge. PT voices no new needs at this time. Resting comfortably.
== END 2025-01-14 23:45 | disposition home or self-care (01) ==
PROVIDERS: Emergency Provider Internal Medicine Critical Care Medicine; PCP Family Medicine
DX: E11.65 Type 2 diabetes mellitus with hyperglycemia (principal); I12.9 Hypertensive chronic kidney disease with stage 1 through stage 4 chronic kidney disease, or unspecified chronic kidney disease; E11.22 Type 2 diabetes mellitus with diabetic chronic kidney disease; N18.9 Chronic kidney disease, unspecified; Z87.891 Personal history of nicotine dependence; Z79.01 Long term (current) use of anticoagulants
CPT/HCPCS: 36415; 71045; 80053; 81003; 82948; 83605; 83690; 84484; 85025; 96361; 96374; 96376; 99284; J1815; J7030; J7120

== ENCOUNTER 2025-03-24 14:04 | Outpatient (CLI) | payer MEDICARE, SELFPAY ==
[2025-03-24 14:18] LABS: Hematocrit 41.0 % (40.0-54.0); Hemoglobin 13.3 g/dL (14.0-18.0); Immature Granulocyte Percent A 0.3 % (0.0-0.0); Lymphocytes Absolute Auto 3.00 K/mm3 (1.10-4.50); Mean Corpuscular HGB Conc 32.4 g/dL (32-36); Mean Corpuscular Hemoglobin 31.4 pg (27.0-31.0); Mean Corpuscular Volume 96.9 fL (78.0-102.0); Nucleated Red Blood Cells Absolute Auto 0.00 K/mm3 (0.00-0.00); Nucleated Red Blood Cells Perc 0.0 % (0-0.0); Platelet Count Result 223 K/mm3 (150-420); Red Blood Count 4.23 M/mm3 (4.70-6.10); White Blood Count 10.4 K/mm3 (4.8-10.8)
[2025-03-24 14:40] LABS: Alanine Aminotransferase 31 U/L (6-50); Albumin Level 4.4 g/dL (3.5-5.1); Alkaline Phosphatase 83 U/L (38-126); Anion Gap 7 mmol/L (4-12); Aspartate Amino Transferase 28 U/L (17-59); Bilirubin,Total 0.4 mg/dL (0.2-1.3); Blood Urea Nitrogen 11 mg/dL (9-20); Calcium 9.9 mg/dL (8.4-10.2); Carbon Dioxide 31 mmol/L (22-30); Chloride 105 mmol/L (98-107); Estimated Glomerular Filt Rate 52; Glucose 149 mg/dL (65-110); Osmolality Calculated 298 mOsm/kg (285-295); Potassium 4.2 mmol/L (3.4-5.0); Sodium 143 mmol/L (137-145); Total Protein 6.8 g/dL (6.3-8.2)
[2025-03-24 14:56] LABS: Hemoglobin A1C 8.7 % (<5.7)
--- OUTSIDE RECORDS SUMMARY | 2025-03-24 14:59 | XMS_ITS | Clinical Summary ---
Author Organization [facility] Address [address] [address] Phone Care Team Providers Care Health Information Tech Name Role Phone Tad Mcintosh MD Primary Care Provider [phone] Gloria Martinez MD Unavailable [phone] Allergies Active Allergy Reactions Criticality Noted [...] MOUTH EVERY DAY NEEDED 45 Tablet 04/15/20 Active fluticasone (FLONASE) 50 MCG/ACT Suspension SPRAY 1-2 SPRAYS INTO EACH NOSTRIL ONCE DAILY DIRECTED 48 g 1 05/15/20 Active fluticasone-salmet rivera (ADVAIR) 500-50 MCG/ACT AEROSOL [...] for Other (Pt states when needed). Active HumaLOG KwikPen 100 UNIT/ML Solution Pen-injector For blood glucose 150-200: Give 2 units; For 201-250: Give 4 units; For 251-300: Give 6 units; For 301-350: Give 8 units; For glucose of 351-400: Give 10 units. For glucose > 400: Give 12 units and contact physician 3 mL 01/13/20 Active Insulin Pen Needle (Pen Putnam) 29G X 12MM Misc As instructed 100 Each 2 01/13/20 25 Active Blood Glucose Monitoring Suppl (D-Care Glucometer) w/Device Kit Use to monitor glucose fasting and prior to each meal 1 Kit 01/13/20 25 Active insulin glargine (LANTUS, BASAGLAR) 100 UNIT/ML Solution Pen-injector 24 Units by Subcutaneous route nightly for 63 days. 15 mL 01/13/20 25 025 Active Problems Problem Noted Date Diagnosed Date [...] Encounters Date Type Department Care Team Description 01/26/[address] [facility] - Neurology [facility] [address] [place] [address] Aria Delong APRN, LAND SALES AGENT 01/10/2025 7:15 PM CDT - 01/12/2025 7:22 PM CDT Hospital Encounter [facility] Med Surg [address] [place] [address] Collette Francois MD Left sided numbness Discharge Disposition: Discharged to home or Selfcare 01/10/2025 Travel from Last 3 Months Immunizations Immunization Administration [...] any time in the past 12 m [facility], were you homeless or living in a custodial (including now)? Patient declined 01/10/2025 [facility] Utilities Answer Date Recorded In the past 12 months has th e electric, gas, oil, or water company threatened [...] CDT Gender Identity Male 05/03/2023 12:44 PM ROTATING EQUIPMENT ENGINEER Sexual Orientation Lesbian or Wolff 05/03/2023 12 :44 PM ROTATING EQUIPMENT ENGINEER Last Filed Vital Signs Vital Sign Reading [...] 06/22/2021 06/22/2020 Diabetes: Foot Exam 08/18/2022 08/18/2021 Influenza Immunization (#1) 2025 11, 02/24/2022, 08/01/2021, Additional history exists SARS-COV-2 Immunization ( season) 2025 05/30/2021, 09/11/2020, 08/21/2020 Diabetes: Hemoglobin A1c 07/13/2025 025, 02/26/2023, 08/21/2022, [...] CHEST SCREENING WO Routine 05/10/2022 2:52 PM ROTATING EQUIPMENT ENGINEER Personal history of nicotine dependence PODIATRY CONSULT 08/18/2021 12:0 0 AM ROTATING EQUIPMENT ENGINEER from Last 3 Months or Most Recently Relevant to Health Maintenance Results * (ABNORMAL) Glucose (01/12/2025 4:23 PM CDT) GLUCOSE 378(H) 70 - 99 mg/dL 01/12/2025 5:02 PM CDT [facility] Blood Venipuncture / Unknown 01/12/2025 4:23 PM CDT 01/12/2025 4:30 PM CDT us Collette Francois MD CHEMISTRY ORDERABLES Final Result Performing Organization Address [facility] Co de Phone Number [facility] [address] [place] [address] * (ABNORMAL) POCT Glucose (01/12/2025 4:08 PM CDT) Only the most recent of9 resultswithin the time period is included. [facility] Signature GLUCOSE,BEDSID E POCT 402(HH) 70 - 99 mg/dL 01/12/2025 4:13 PM CDT [facility] Comment: RN Notified TOOK RUBIN ERWIN Blood 01/12/2025 4:08 PM CDT 01/12/2025 4:13 PM CDT us None Provider POINT OF CARE TESTING Final Resu lt Performing Organization Address [facility] Co de Phone Number [facility] [address] [place] [address] * US BILATERAL CAROTID DUPLEX (01/12/2025 11:01 [...] Enrique Groves M.D. AM: AM Report ID: [id number] Reading Location: [id number] Procedure Note Enrique Groves MD - 01/12/2025 [...] Enrique Groves M.D. AM: AM Report ID: [id number] Reading Location: [place] [address] IMPRESSION: 1. Velocities correspond to a less [...] Doppler US. RSNA 2002 us Yissel Iniguez RESEARCH ASSISTANT PROFESSOR, CHARGE ACCOUNT CLERK IMG US ORDERABLES Final R esult * [...] Atul Mena M.D. MM: MM Report ID: [id number] Reading Location: [id number] Procedure Note Atul Mena MD - 01/12/2025 [...] Atul Mena M.D. MM: MM Report ID: [id number] Reading Location: [id number] IMPRESSION: No acute infarction. us Yissel Iniguez APRN, CHARGE ACCOUNT CLERK IMG MR ORDERABLES Final R esult * [...] Report (TTE) Patient name DILIP Arzate JRMathieu De Jesus 1970 Patient ID (UPI) [id number] Indications: Stroke. Study Date01/12/2025 Technical quality: Poor [...] lbs. BMI (BSA) 34.91 kg/m^2 (2.22 m^2) Striper Spray Gun Chester Merlos Room 231- Interpreting Lawrence Referring Physician Tj Physician Procedure Note Tj Bravo MD - 01/12/2025 Transthoracic Echocardiography Report (TTE) Patient name DILIP Arzate JR. De Jesus 1970 Patient ID (UPI) [id number] Indications: Stroke. Study Date01/12/2025 Technical quality: Poor [...] lbs. BMI (BSA) 34.91 kg/m^2 (2.22 m^2) Striper Spray Gun Chester Merlos R Room 231-01 Interpreting Bravo Referring Physician Tj Physician us Yissel Iniguez RESEARCH ASSISTANT PROFESSOR, CHARGE ACCOUNT CLERK IMG ECHO ORDERABLES Edite d Result - Final * (ABNORMAL) CBC with Auto Differential (01/12/2025 4:44 AM CDT) Only the most recent of3 resultswithin the time period is included. WBC 10.97 4.00 - 12.00 10(3)/mcL 01/12/2025 5:21 AM CDT [facility] RBC 4.58 4.40 - 5.80 10(6)/mcL 01/12/2025 5:21 AM CDT [facility] HEMOGLOBIN (HGB) 14.9 13.0 - 16.5 g/dL 01/12/2025 5:21 AM CDT [facility] HEMATOCRIT (HCT) 42.7 38.0 - 50.0 % 01/12/2025 5:21 AM CDT [facility] MCV 93.2 82.0 - 96.0 fL 01/12/2025 5:21 AM CDT [facility] MCH 32.5(H) 26.0 - 32.0 pg 01/12/2025 5:21 AM CDT [facility] MCHC 34.9 31.0 - 36.0 g/dL 01/12/2025 5:21 AM CDT [facility] PLATELET COUNT 218 140 - 440 10(3)/mcL 01/12/2025 5:21 AM CDT [facility] RDW 13.3 11.8 - 15.5 % 01/12/2025 5:21 AM CDT [facility] MPV 10.7 8.0 - 12.6 fL 01/12/2025 5:21 AM CDT [facility] NEUTROPHILS 66.1 40.0 - 68.0 % 01/12/2025 5:21 AM CDT [facility] LYMPHOCYTES 25.3 19.0 - 49.0 % 01/12/2025 5:21 AM [facility] MONOCYTES 3.7 3.0 - 13.0 % 01/12/2025 5:21 AM [facility] EOSINOPHILS 3.3 0.0 - 8.0 % 01/12/2025 5:21 AM [facility] BASOPHILS 1.1(H) 0.0 - 1.0 % 01/12/2025 5:21 AM [facility] IMMATURE GRANULOCYTE 0.5(H) 0.0 - 0.4 % 01/12/2025 5:21 AM [facility] Comment:Immature Granulocyte s includes Metamyelocytes, Myelocytes, and Promyelocytes. ABSOLUTE NEUTROPHILS 7.25(H) 1.40 - 5.30 10(3)/[facility] 01/12/2025 5:21 AM [facility] ABSOLUTE LYMPHOCYTES 2.77 0.90 - 3.30 10(3)/[facility] 01/12/2025 5:21 AM [facility] ABSOLUTE MONOCYTES 0.41 0.10 - 0.90 10(3)/[facility] 01/12/2025 5:21 AM [facility] ABSOLUTE EOSINOPHIL 0.36 0.00 - 0.50 10(3)/[facility] 01/12/2025 5:21 AM [facility] ABSOLUTE BASOPHILS 0.12(H) 0.00 - 0.10 10(3)/[facility] 01/12/2025 5:21 AM [facility] ABSOLUTE IMMATURE GRANULOCYTE 0.06(H) 0.00 - 0.03 10 (3) [facility]. 01/12/2025 5:21 AM [facility] NRBC PER 100 WBC 0 01/13/20 5:21 AM [facility] Blood Venipuncture / Unknown 01/12/2025 4:44 AM CDT 01/12/2025 5:12 AM CDT us Yissel Iniguez RESEARCH ASSISTANT PROFESSOR, CHARGE ACCOUNT CLERK HEMATOLOGY ORDERABLES Fin al Result [facility] [address] [place] [address] * (ABNORMAL) BMP with Ca, Total (01/12/2025 4:44 AM CDT) Only the most recent of2 resultswithin the time period is included. SODIUM 139 136 - 145 mmol/L 01/12/2025 5:43 AM CDT [facility] POTASSIUM 3.3(L) 3.5 - 5.1 mmol/L 01/12/2025 5:43 AM CDT [facility] CHLORIDE 106 98 - 107 mmol/L 01/12/2025 5:43 AM CDT [facility] CO2, VENOUS 23 22 - 30 mmol/L 01/12/2025 5:43 AM CDT [facility] ANION GAP 13.3 <18.0 mmol/L 01/12/2025 5:43 AM CDT [facility] GLUCOSE 285(H) 70 - 99 mg/dL 01/12/2025 5:43 AM CDT [facility] BUN 14 8 - 26 mg/dL 01/12/2025 5:43 AM CDT [facility] CREATININE, BLOOD 1.31(H) 0.70 - 1.30 mg/dL 01/12/2025 5:43 AM CDT [facility] BUN/CREATININE RATIO 11(L) 12 - 20 ratio 01/12/2025 5:43 AM CDT [facility] CALCIUM 9.2 8.7 - 10.5 mg/dL 01/12/2025 5:43 AM CDT [facility] GFR, ESTIMATED >60 >=60 01/12/2025 5:43 AM CDT [facility] Comment: Creatinine Clearance is the preferred criteria for selecting drug dose adjustments in renally impaired patients. The GFR is provided as additional pertinent clinical information. GFR is reported in mL/min/1.73 sq m. Calculation based on the Chronic Kidney Disease Epidemiology Collaboration (CKD- EPI) equation refit without adjustment for race. GFR, EST. >60 >=60 025 5:43 AM CDT [facility] GFR, EST. NONAFRICAN 57(L) >=60 01/12/2025 5:43 AM CDT [facility] Blood Venipuncture / Unknown 01/12/2025 4:44 AM CDT 01/12/2025 5:10 AM CDT us Yissel Iniguez APRN, CNP CHEMISTRY ORDERABLES Becky l Result Performing Organization Address City/[facility]/ZIP Co de Phone Number [facility] [address] [place] [address] * RHYTHM STRIP (01/12/2025 12:00 AM CDT) Only the most recent of5 resultswithin the time period is included. 01/12/2025 us Provider Scan IMG ECG ORDERABLES Final Result Performing Organization Address [facility]/ZIP Co de Phone Number RESULTING AGENCY * (ABNORMAL) Lipid Panel (01/11/2025 4:20 AM CDT) CHOLESTEROL 149 <200 mg/dL 01/11/2025 5:16 AM CDT [facility] TRIGLYCERIDES 371(H) <150 mg/dL 01/11/2025 5:16 AM CDT [facility] HDL CHOLESTEROL 32(L) >40 mg/dL 5:16 AM CDT [facility] LDL 43 <130 mg/dL 01/11/2025 5:16 AM CDT [facility] VLDL 74(H) 10 - 50 mg/dL 01/11/2025 5:16 AM CDT [facility] CHOL/HDL RATIO 4.7(H) 0.0 - 4.4 01/11/2025 5:16 AM CDT [facility] NON-HDL CHOLESTEROL 117 <130 mg/dL 01/11/2025 5:16 AM CDT [facility] Blood Venipuncture / Unknown 01/11/2025 4:20 AM CDT 01/11/2025 4:49 AM CDT us Yissel Iniguez APRN, CHARGE ACCOUNT CLERK CHEMISTRY ORDERABLES Becky l Result Performing Organization Address [facility] Co de Phone Number [facility] [address] [place] [address] * EKG 12 LEAD (01/10/2025 10:15 PM CDT) Ventricular Rate 77 BPM EXTERNAL EKG Atrial Rate 77 BPM EXTERNAL EKG P-R Interval 180 ms EXTERNAL EKG QRS Duration 104 ms EXTERNAL EKG Q-T Duration 438 ms EXTERNAL EKG QTC CALCULATION 495 ms EXTERNAL EKG P [place] 51 degrees EXTERNAL EKG R [place] 61 degrees EXTERNAL EKG T [place] 42 degrees EXTERNAL EKG 01/10/2025 10:1 5 PM CDT Impressions EXTERNAL EKG - 01/12/2025 9:22 AM CDT Normal sinus rhythm Nonspecific ST abnormality QTcB >= 480 msec Abnormal ECG When compared with ECG of 05-JUN-2021 20:03, No significant change was found ~ Confirmed by TJ BRAVO ([id number]) on 01/12/2025 9:22:30 AM Narrative Procedure Note Tj Bravo MD - 01/12/2025 IMPRESSION: Normal sinus rhythm Nonspecific ST abnormality QTcB >= 480 msec Abnormal ECG When compared with ECG of 05-JUN-2021 20:03, No significant change was found ~ Confirmed by TJ BRAVO ([id number]) on 01/12/2025 9:22:30 AM us Yissel Iniguez APRN, RICHARD IMG ECG ORDERABLES Final Result EXTERNAL EKG * CT REFERENCE IMAGES FOR IMAGE IMPORT (01/10/2025 8:50 PM CDT) us Not On File Provider IMG CT ORDERABLES Final Res ult * (ABNORMAL) Hemoglobin A1C w/ Estimated Glucose (01/10/2025 8:13 PM CDT) HGB-A1C 12.4(H) 4.0 - 6.0 % 01/10/2025 8:41 PM CDT [facility] Est Average Glucose 309.2 mg/dL 01/10/2025 8:41 PM CDT [facility] Blood Venipuncture / Unknown 01/10/2025 8:13 PM CDT 01/10/2025 8:22 PM CDT Narrative [facility] - 01/10/2025 8:41 PM CDT HEMOGLOBIN A1C: DIABETIC PATIENTS: WELL-CONTROLLED: 6.2 - 7.0 INTERMEDIATE WELL-CONTROLLED: 7.0 - 9.0 POORLY-CONTROLLED: >9.0 Specimens containing greater than 5% of Hemoglobin F may result in lower than expected % HbA1C results. us Yissel Iniguez APRN, CHARGE ACCOUNT CLERK CHEMISTRY ORDERABLES Becky l Result Performing Organization Address City/[facility] Co de Phone Number [facility] [address] [place] [address] * NT-proBNP (01/10/2025 8:13 PM CDT) NT PROBNP 32.2 <450.0 pg/mL 01/10/2025 10:30 PM CDT [facility] Comment: AGE pg/mL INTERPRETATION [...] 01/10/2025 8:22 PM CDT us Yissel Iniguez RESEARCH ASSISTANT PROFESSOR, CHARGE ACCOUNT CLERK CHEMISTRY ORDERABLES Becky l Result [facility] [address] [place] [address] * (ABNORMAL) CMP (Comprehensive Metabolic Panel) (01/10/2025 8:13 PM CDT) SODIUM 136 136 - 145 mmol/L 01/10/2025 8:43 PM CDT [facility] POTASSIUM 2.9(L) 3.5 - 5.1 mmol/L 01/10/2025 8:43 PM CDT [facility] CHLORIDE 101 98 - 107 mmol/L 01/10/2025 8:43 PM CDT [facility] CO2, VENOUS 23 22 - 30 mmol/L 01/10/2025 8:43 PM CDT [facility] ANION GAP 14.9 <18.0 mmol/L 01/10/2025 8:43 PM CDT [facility] GLUCOSE 319(H) 70 - 99 mg/dL 01/10/2025 8:43 PM CDT [facility] BUN 13 8 - 26 mg/dL 01/10/2025 8:43 PM CDT [facility] CREATININE, BLOOD 1.41(H) 0.70 - 1.30 mg/dL 01/10/2025 8:43 PM CDT [facility] BUN/CREATININE RATIO 9(L) 12 - 20 ratio 01/10/2025 8:43 PM CDT [facility] TOTAL PROTEIN 7.2 6.0 - 8.0 g/dL 01/10/2025 8:43 PM CDT [facility] ALBUMIN 4.5 3.5 - 5.0 g/dL 01/10/2025 8:43 PM CDT [facility] A/G RATIO 1.7 1.0 - 2.2 01/10/2025 8:43 PM CDT [facility] CALCIUM 9.6 8.7 - 10.5 mg/dL 01/10/2025 8:43 PM CDT [facility] T BILI 0.5 0.2 - 1.2 mg/dL 01/10/2025 8:43 PM CDT [facility] SGOT (AST) 20 <43 U/L 01/10/2025 8:43 PM CDT [facility] SGPT (ALT) 40 <56 U/L 01/10/2025 8:43 PM CDT [facility] ALKALINE PHOSPHATASE 142 40 - 150 U/L 01/10/2025 8:43 PM CDT [facility] GFR, ESTIMATED 59(L) >=60 01/10/2025 8:43 PM CDT [facility] Comment: Creatinine Clearance is the preferred criteria for selecting drug dose adjustments in renally impaired patients. The GFR is provided as additional pertinent clinical information. GFR is reported in mL/min/1.73 sq m. Calculation based on the Chronic Kidney Disease Epidemiology Collaboration (CKD- EPI) equation refit without adjustment for race. GFR, EST. >60 >=60 025 8:43 PM CDT [facility] GFR, EST. NONAFRICAN 52(L) >=60 01/10/2025 8:43 PM CDT [facility] Blood Venipuncture / Unknown 01/10/2025 8:13 PM CDT 01/10/2025 8:22 PM CDT us Yissel Iniguez RESEARCH ASSISTANT PROFESSOR, CHARGE ACCOUNT CLERK CHEMISTRY ORDERABLES Becky l Result [facility] [address] [place] [address] * EKG SCAN (01/10/2025 12:00 AM CDT) 01/10/2025 us Provider Scan IMG ECG ORDERABLES Final Result Performing Organization Address [facility] Co de Phone Number RESULTING AGENCY * PSA SCREEN (02/26/2023 12:32 PM CDT) PSA SCREEN, TOTAL 0.60 <4.00 ng/mL 02/26/2023 1:45 PM CDT [facility] Blood Venipuncture / Unknown 02/26/2023 12:32 PM CDT 02/26/2023 12:57 PM CDT Narrative [facility] - 02/26/2023 1:45 PM CDT The SLABBER Total PSA assay is a Chemiluminescent Microparticle Immunoassay (CMIA) for the quantitative determination of total PSA (both free PSA and PSA complexed to [id number]) in human serum. Kishore Prieto APRN, CHARGE ACCOUNT CLERK CHEMISTRY ORDERA BLES Final Result Performing Organization Address [facility] de Phone Number [facility] [address] [place] [address] * CT CHEST SCREENING WO (05/10/2022 2:52 PM ROTATING EQUIPMENT ENGINEER) Anatomical Region Laterality Modality Chest N/A Computed Tomogra phy 05/12/2022 9:10 AM ROTATING EQUIPMENT ENGINEER Impressions 05/12/2022 9:13 AM ROTATING EQUIPMENT ENGINEER IMPRESSION: 1. Background of mild pulmonary emphysema. 2. Scattered tiny bilateral pulmonary nodules. No suspicious nodularity. 3. Mild coronary artery calcifications. 4. Additional findings as above. Lung-RADS v1.1 category 2: Benign appearance or behavior. Recommendation: Low dose CT of chest in 12 months. Narrative 05/12/2022 9:13 AM ROTATING EQUIPMENT ENGINEER EXAM DESCRIPTION: CT CHEST SCREENING WO REASON [...] Mallorie Gomez M.D. TW: KRISTIN Report ID: [id number] Reading Location: [id number] Procedure Note Mallorie Gomez MD - 05/12/2022 [...] Mallorie Gomez M.D. TW: TW Report ID: [id number] Reading Location: [place] [address] IMPRESSION: 1. Background of mild pulmonary emphysema. 2. Scattered tiny bilateral pulmonary nodules. No suspicious nodularity. 3. Mild coronary artery calcifications. 4. Additional findings as above. Lung-RADS v1.1 category 2: Benign appearance or behavior. Recommendation: Low dose CT of chest in 12 months. us Kishore Prieto APRN, CNP IMG CT ORDERABLE S Final Result * PODIATRY CONSULT (08/18/2021 12:00 AM ROTATING EQUIPMENT ENGINEER) 08/18/2021 us Not On File Provider GENERIC [...] measures to stabilize the patient. Care Teams Health Information Tech Relationship Specialty Start Date End Date Tad Mcintosh MD [address] [place] [id number] PCP - General Family Medicine 01/17/24 Gloria Martinez MD [address] [address] Consulting Physician Urology 04/30/24
--- OUTSIDE RECORDS SUMMARY | 2025-03-24 14:59 | XMS_ITS | Encounter Summary ---
Author Organization [facility] Address [address] [place] [address] Phone Care Team Providers Care Manager Beverage Name Role Phone Jabier Peck MD Primary Care Provider [phone] Srikanth Adrian MD Unavailable Tad Romero MD Primary Care Provider [phone] Gloria Martinez MD Unavailable [phone] Reason for Visit * Reason Comments Medication Refill Encounter Details Date Type Department Care Team (Late st Contact Info) Description 07/20/2021 Refill [facility] [address] [place] [address] Jabier Peck MD #[address] [address] Medication Refill Social History Tobacco Use Types [...] Gender Identity Male 05/03/2023 12:44 PM EMERGENCY PHYSICIAN Sexual Orientation Lesbian or Wolff 05/03/2023 12 :44 PM EMERGENCY PHYSICIAN COVID-19 Exposure Response Date Recorded In the last month, have you been in contact with someone who was confirmed or suspected to have Coronavirus / COVID-19? No / Unsure 07/14/2021 12:17 PM EMERGENCY PHYSICIAN documented as of this encounter Miscellaneous Notes [...] Prieto APRN, RICHARD [facility] 08/06/20 Telemedicine Kishoer Prieto APRN, RELATIONSHIP CONSULTANT [facility] Showing recent visits within past 365 days and meeting all other requirements Future Appointments Date Type Provider Dept 08/01/21 Appointment Jabier Peck MD [facility] Showing future appointments within next 90 days and meeting all other requirements GENCY PHYSICIAN documented in this encounter Plan of Treatment Not on file documented as of this encounter Visit Diagnoses Diagnosis Cervical radiculopathy Brachial neuritis or radiculitis nos documented in this encounter Additional Health Concerns Infection Onset Date Last Indicated Resolved Time COVID - 19 Confirmed 05/31/2022 05/31/2022 023 12:16 AM EMERGENCY PHYSICIAN Respiratory Rule Out - RPA 02/26/2023 02/26/2023 0 02/26/2023 11:31 AM CDT COVID - 19 02/26/2023 02/26/2023 03/08/2023 12:1 6 AM CDT documented as of this encounter Care Teams Manager Beverage Relationship Specialty Start Date End Date Jabier Peck MD [address] [facility] [address] [place] [address] PCP - General Family Medicine 06/22/20 01/16/24 Tad Mcintosh MD [address] [place] [address] PCP - General Family Medicine 01/17/24 Srikanth Adrian MD [address]2 [facility] [address] [place] [address] Cleaner And Preparer Cardiovascular Disease - Cardiology 02/02/22 08/06/24 Gloria Martinez MD [address]2 [facility] [address] [place] [address] Consulting Physician Urology 04/30/24 documented as of this encounter
--- OUTSIDE RECORDS SUMMARY | 2025-03-24 14:59 | XMS_ITS | Encounter Summary ---
Author Organization [facility] Address [address] [place] [address] Phone Care Team Providers Care Health And Safety Tech Name Role Phone Srikanth Adrian MD Unavailable Tad Romero MD Primary Care Provider [phone] Gloria Martinez MD Unavailable Reason for Visit * Reason Comments Medication Refill Encounter Details Date Type Department Care Team (Late st Contact Info) Description 07/03/2024 Refill [facility] - [facility] [address] [place] [phone] Jabier Peck MD [address] [address] Medication Refill Social History Tobacco Use Types [...] CDT Gender Identity Male 05/03/2023 12:44 PM WEB SYSTEMS DEVELOPER Sexual Orientation Lesbian or Wolff 05/03/2023 12 :44 PM WEB SYSTEMS DEVELOPER documented as of this encounter Miscellaneous Notes * Telephone Encounter - Francine Soto RN - 07/04/2024 8:54 AM CST PCP: Tad Mcintosh MD SYSTEMS DEVELOPER documented in this encounter Plan of Treatment Not on file documented as of this encounter Visit Diagnoses Not on filedocumented in this encounter Care Teams Health And Safety Tech Relationship Specialty Start Date End Date Tad Mcintosh MD [address] [place] [address] PCP - General Family Medicine 01/17/24 Srikanth Adrian MD Toll Settlement Clerk Cardiovascular Disease - Cardiology 02/02/22 08/06/24 Gloria Martinez MD #[address] [address] Consulting Physician Urology 04/30/24 documented as of this encounter
--- OUTSIDE RECORDS SUMMARY | 2025-03-24 14:59 | XMS_ITS | Encounter Summary ---
Author Organization [facility] Address [address] [facility] [place] [address] Phone Care Team Providers Care Roller Varnisher Name Role Phone Jabier Peck MD Primary Care Provider + -[phone] Srikanth Adrian MD Unavailable Tad Romero MD Primary Care Provider [phone] Gloria Martinez MD Unavailable [phone] Reason for Visit * Reason Comments Medication Refill Encounter Details Date Type Department Care Team (Late st Contact Info) Description 03/19/2023 Refill [facility] #2 [place] [address] Jabier Peck MD #[address] [address] Medication Refill Social History Tobacco Use Types [...] Identity Male 05/03/2023 12:44 PM DUST COLLECTOR ORE CRUSHING Sexual Orientation Lesbian or Wolff 05/03/2023 12 :44 PM DUST COLLECTOR ORE CRUSHING COVID-19 Exposure Response Date Recorded In the [...] [facility] 05/03/22 Telemedicine [facility] [place] Showing recent visits within past 365 [...] unspecified documented in this encounter Care Teams Roller Varnisher Relationship Specialty Start Date End Date Jabier Peck MD #2 [facility] [address] [place] [address] PCP - General Family Medicine 06/22/20 01/16/24 Tad Mcintosh MD [address] [place] [address] PCP - General Family Medicine 01/17/24 Srikanth Adrian MD #2 [facility] [address] [place] [address] Brush Painter Cardiovascular Disease - Cardiology 02/02/22 08/06/24 Gloria Martinez MD #2 [facility] [address] [place] [address] Consulting Physician Urology 04/30/24 documented as of this encounter
--- OUTSIDE RECORDS SUMMARY | 2025-03-24 14:59 | XMS_ITS | Encounter Summary ---
Author Organization [facility] Address 800 [facility] [place] [address] Phone Care Team Providers Care Forwarder Operator Name Role Phone Srikanth Adrian MD Unavailable Tad Romero MD Primary Care Provider [phone] Gloria Martinez MD Unavailable [phone] Reason for Visit * Reason Comments Medication Refill Encounter Details Date Type Department Care Team (Late st Contact Info) Description 05/28/2024 Refill [facility] - Family Medicine [facility] #2 [place] [id number] Jabier Peck MD #[address] [address] Medication Refill Social History Tobacco Use Types [...] CDT Gender Identity Male 05/03/2023 12:44 PM EMT PARAMEDIC Sexual Orientation Lesbian or Wolff 05/03/2023 12 :44 PM EMT PARAMEDIC documented as of this encounter Miscellaneous Notes * Telephone Encounter - Francine Soto RN - 05/28/2024 11:10 AM CST PCP: Tad Mcintosh MD PARAMEDIC documented in this encounter Plan of Treatment Not on file documented as of this encounter Visit Diagnoses Not on filedocumented in this encounter Care Teams Forwarder Operator Relationship Specialty Start Date End Date Tad Mcintosh MD [address] [place] [address] PCP - General Family Medicine 01/17/24 Srikanth Adrian MD Vice President Cardiovascular Disease - Cardiology 02/02/22 08/06/24 Gloria Martinez MD #[address] [address] Consulting Physician Urology 04/30/24 documented as of this encounter
--- OUTSIDE RECORDS SUMMARY | 2025-03-24 14:59 | XMS_ITS | Encounter Summary ---
Author Organization [facility] Address [address] [facility] [place] [address] Phone Care Team Providers Care Marine Technician Name Role Phone Jabier Peck MD Primary Care Provider + -[phone] Srikanth Adrian MD Unavailable Tad Romero MD Primary Care Provider [phone] Gloria Martinez MD Unavailable [phone] Reason for Visit * Reason Comments Medication Refill Encounter Details Date Type Department Care Team (Late st Contact Info) Description 03/29/2022 Refill [facility] #2 [place] [address] Jabier Peck MD #[address] [address] Medication Refill Social History Tobacco Use Types [...] CDT Gender Identity Male 05/03/2023 12:44 PM CHANGE DIRECTOR Sexual Orientation Lesbian or Wolff 05/03/2023 12 :44 PM CHANGE DIRECTOR COVID-19 Exposure Response Date Recorded In [...] 19 Confirmed 05/31/2022 05/31/2022 023 12:16 AM CHANGE DIRECTOR Respiratory Rule Out - RPA 02/26/2023 02/26/2023 0 02/26/2023 11:31 AM CDT COVID - 19 02/26/2023 02/26/2023 03/08/2023 12:1 6 AM CDT documented as of this encounter Care Teams Marine Technician Relationship Specialty Start Date End Date Jabier Peck MD #2 [facility] 205 [place] [address] PCP - General Family Medicine 06/22/20 01/16/24 Tad Mcintosh MD [address] [place] [address] PCP - General Family Medicine 01/17/24 Srikanth Adrian MD #2 [facility] 205 [place] [address] Driller Brake Lining Cardiovascular Disease - Cardiology 02/02/22 08/06/24 Gloria Martinez MD #2 [facility] [address] [place] [address] Consulting Physician Urology 04/30/24 documented as of this encounter
--- OUTSIDE RECORDS SUMMARY | 2025-03-24 14:59 | XMS_ITS | Encounter Summary ---
Author Organization [facility] Address [address] [facility] [place] [address] Phone Care Team Providers Care Pharmacy Operations Specialist Name Role Phone Jabier Peck MD Primary Care Provider + [phone] Srikanth Adrian MD Unavailable Tad Romero MD Primary Care Provider [phone] Gloria Martinez MD Unavailable [phone] Reason for Visit * Reason Comments Medication Refill Encounter Details Date Type Department Care Team (Late st Contact Info) Description 08/01/2023 Refill 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 Sexual Orientation Lesbian or Wolff 05/03/2023 12 :44 PM ENVIRONMENTAL HEALTH AIDE documented as of this encounter Miscellaneous Notes [...] Passed - Active short-acting beta agonist prescription RONMENTAL HEALTH AIDE documented in this encounter Plan of Treatment Not on file documented as of this encounter Visit Diagnoses Not on filedocumented in this encounter Care Teams Pharmacy Operations Specialist Relationship Specialty Start Date End Date Jabier Peck MD #2 [facility] [address] [place] [address] PCP - General Family Medicine 06/22/20 01/16/24 Tad Mcintosh MD [address] [place] [address] PCP - General Family Medicine 01/17/24 Srikanth Adrian MD #2 [facility] [address] [place] [address] Fisher Lobster Cardiovascular Disease - Cardiology 02/02/22 08/06/24 Gloria Martinez MD #2 [facility] 300 [place] [address] Consulting Physician Urology 04/30/24 documented as of this encounter
--- OUTSIDE RECORDS SUMMARY | 2025-03-24 14:59 | XMS_ITS | Encounter Summary ---
Author Organization [facility] Address [address] [facility] [place] [address] Phone Care Team Providers Care Item Processor Name Role Phone Jabier Peck MD Primary Care Provider + [phone] Srikanth Adrian MD Unavailable Tad Romero MD Primary Care Provider [phone] Gloria Martinez MD Unavailable [phone] Reason for Visit * Reason Comments Medication Refill Encounter Details Date Type Department Care Team (Late st Contact Info) Description 03/24/2022 Refill [facility] #2 [place] [address] Kishore Prieto, UPPER AND BOTTOM LACER HAND, RADIO BOARD OPERATOR #[address] [address] Medication Refill Social History Tobacco Use Types [...] Gender Identity Male 05/03/2023 12:44 PM INDUSTRIAL CLEANER Sexual Orientation Lesbian or Wolff 05/03/2023 12 :44 PM INDUSTRIAL CLEANER COVID-19 Exposure Response Date Recorded In the [...] Confirmed 05/31/2022 05/31/2022 023 12:16 AM INDUSTRIAL CLEANER Respiratory Rule Out - RPA 02/26/2023 02/26/2023 0 02/26/2023 11:31 AM CDT COVID - 19 02/26/2023 02/26/2023 03/08/2023 12:1 6 AM CDT documented as of this encounter Care Teams Item Processor Relationship Specialty Start Date End Date Jabier Peck MD #2 [facility] [address] [place] [address] PCP - General Family Medicine 06/22/20 01/16/24 Tad Mcintosh MD [address] [place] [address] PCP - General Family Medicine 01/17/24 Srikanth Adrian MD #2 [facility] 205 [place] [address] Wrapper Counter Cardiovascular Disease - Cardiology 02/02/22 08/06/24 Gloria Martinez MD #2 [facility] [address] [place] [address] Consulting Physician Urology 04/30/24 documented as of this encounter
--- OUTSIDE RECORDS SUMMARY | 2025-03-24 14:59 | XMS_ITS | Encounter Summary ---
Author Organization [facility] Address [address] [facility] [place] [address] Phone Care Team Providers Care Equipment Service Engineer Name Role Phone Jabier Peck MD Primary Care Provider + [phone] Srikanth Adrian MD Unavailable aTd Romero MD Primary Care Provider [phone] Gloria Martinez MD Unavailable [phone] Reason for Visit * Reason Comments Medication Refill Encounter Details Date Type Department Care Team (Late st Contact Info) Description 05/14/2022 Refill [facility] #2 [place] [address] Jabier Peck MD #[address] [address] Medication Refill Social History Tobacco Use Types [...] Gender Identity Male 05/03/2023 12:44 PM SENIOR CHEMICAL PROCESS ENGINEER Sexual Orientation Lesbian or Wolff 05/03/2023 12 :44 PM SENIOR CHEMICAL PROCESS ENGINEER COVID-19 Exposure Response Date Recorded In the last 10 days, have yo u been in contact with someone who was confirmed or suspected to have Coronavirus/COVID-19? No / Unsure 05/10/2022 2:32 PM SENIOR CHEMICAL PROCESS ENGINEER documented as of this encounter Miscellaneous Notes * Telephone Encounter - Anjali Hartley RN - 05/15/2022 9:34 AM SENIOR CHEMICAL PROCESS ENGINEER PDMP 04/18/2022 #45, 15 day supply. Medication [...] MD [facility] 03/03/22 Office Visit Jabier ePck MD [facility] 02/24/22 Office Visit Kishore [...] 90 days and meeting all other requirements OR CHEMICAL PROCESS ENGINEER documented in this encounter Plan of Treatment Not on file documented as of this encounter Visit Diagnoses Diagnosis Cervical radiculopathy Brachial neuritis or radiculitis nos documented in this encounter Additional Health Concerns Infection Onset Date Last Indicated Resolved Time COVID - 19 Confirmed 05/31/2022 05/31/2022 023 12:16 AM SENIOR CHEMICAL PROCESS ENGINEER Respiratory Rule Out - RPA 02/26/2023 02/26/2023 0 02/26/2023 11:31 AM CDT COVID - 19 02/26/2023 02/26/2023 03/08/2023 12:1 6 AM CDT documented as of this encounter Care Teams Equipment Service Engineer Relationship Specialty Start Date End Date Jabier Peck MD #2 [facility] 205 [place] [address] PCP - General Family Medicine 06/22/20 01/16/24 Tad Mcintosh MD [address] [place] [address] PCP - General Family Medicine 01/17/24 Srikanth Adrian MD #2 [facility] [address] [place] [address] Implementation Services Analyst Cardiovascular Disease - Cardiology 02/02/22 08/06/24 Gloria Martinez MD #2 [facility] [address] [place] [address] Consulting Physician Urology 04/30/24 documented as of this encounter
--- OUTSIDE RECORDS SUMMARY | 2025-03-24 14:59 | XMS_ITS | Encounter Summary ---
Author Organization [facility] Address [address] [facility] [place] [address] Phone Care Team Providers Care Battery Builder Name Role Phone Jabier Peck MD Primary Care Provider [phone] Srikanth Adrian MD Unavailable Tad Romero MD Primary Care Provider [phone] Gloria Martinez MD Unavailable [phone] Reason for Visit * Reason Onset Date Comments Medication Refill 12/28/2021 Encounter Details Date Type Department Care Team (Late st Contact Info) Description 12/28/2021 Refill [facility] Medical Group - Family Medicine [facility] #2 [place] [address] Jabier Peck MD #[address] [address] Medication Refill Social History Tobacco Use Types [...] CDT Gender Identity Male 05/03/2023 12:44 PM STORAGE GARAGE ATTENDANT Sexual Orientation Lesbian or Wolff 05/03/2023 12 :44 PM STORAGE GARAGE ATTENDANT COVID-19 Exposure Response Date Recorded In [...] physician/MARVA review. Refill encounter routed to nurse [employer]'s pool for processing. documented in this encounter Plan of Treatment Not on file documented as of this encounter Visit Diagnoses Not on filedocumented in this encounter Additional Health Concerns Infection Onset Date Last Indicated Resolved Time COVID - 19 Confirmed 05/31/2022 05/31/2022 023 12:16 AM STORAGE GARAGE ATTENDANT Respiratory Rule Out - RPA 02/26/2023 02/26/2023 0 02/26/2023 11:31 AM CDT COVID - 19 02/26/2023 02/26/2023 03/08/2023 12:1 6 AM CDT documented as of this encounter Care Teams Battery Builder Relationship Specialty Start Date End Date Jabier Peck MD #[address] [address] PCP - General Family Medicine 06/22/20 01/16/24 Tad Mcintosh MD [address] [place] [address] PCP - General Family Medicine 01/17/24 Srikanth Adrian MD #[address] [address] Assessment Director Cardiovascular Disease - Cardiology 02/02/22 08/06/24 Gloria Martinez MD #2 [facility] [address] [address] Consulting Physician Urology 04/30/24 documented as of this encounter
--- OUTSIDE RECORDS SUMMARY | 2025-03-24 14:59 | XMS_ITS | Encounter Summary ---
Author Organization [facility] Address [address] [facility] [place] [address] Phone Care Team Providers Care Belt Glass Sander Name Role Phone Jabier Peck MD Primary Care Provider + [phone] Srikanth Adrian MD Unavailable Tad Romero MD Primary Care Provider [phone] Gloria Martinez MD Unavailable [phone] Reason for Visit * Reason Comments Medication Refill Encounter Details Date Type Department Care Team (Late st Contact Info) Description 01/06/2021 Refill [facility] Medical Group - Family Medicine [facility] #2 [place] [id number] Jt Morillo MD [address] [place] [address] Medication Refill Social History Tobacco Use Types [...] CDT Gender Identity Male 05/03/2023 12:44 PM BRASS BUFFER Sexual Orientation Lesbian or Wolff 05/03/2023 12 :44 PM BRASS BUFFER documented as of this encounter Miscellaneous Notes [...] 19 Confirmed 05/31/2022 05/31/2022 023 12:16 AM BRASS BUFFER Respiratory Rule Out - RPA 02/26/2023 02/26/2023 0 02/26/2023 11:31 AM CDT COVID - 19 02/26/2023 02/26/2023 03/08/2023 12:1 6 AM CDT documented as of this encounter Care Teams Belt Glass Sander Relationship Specialty Start Date End Date Jabier Peck MD #2 [facility] [address] [place] [address] PCP - General Family Medicine 06/22/20 01/16/24 Tad Mcintosh MD [address] [place] [address] PCP - General Family Medicine 01/17/24 Srikanth Adrian MD #2 [facility] 205 [place] [address] Machine Joiner Cementer Cardiovascular Disease - Cardiology 02/02/22 08/06/24 Gloria Martinez MD #2 [facility] [address] [place] [address] Consulting Physician Urology 04/30/24 documented as of this encounter
--- OUTSIDE RECORDS SUMMARY | 2025-03-24 14:59 | XMS_ITS | Encounter Summary ---
Author Organization [facility] Address [address] [facility] [place] [address] Phone Care Team Providers Care Physical Medicine Physician Name Role Phone Jabier Peck MD Primary Care Provider + [phone] Srikanth Adrian MD Unavailable Tad Romero MD Primary Care Provider [phone] Gloria Martinez MD Unavailable [phone] Reason for Visit * Reason Comments Medication Refill Encounter Details Date Type Department Care Team (Late st Contact Info) Description 08/19/2021 Refill [facility] #2 [place] [address] Jabier Peck MD #[address] [address] Medication Refill Social History Tobacco Use Types [...] CDT Gender Identity Male 05/03/2023 12:44 PM COSTUME MAKER Sexual Orientation Lesbian or Wolff 05/03/2023 12 :44 PM COSTUME MAKER COVID-19 Exposure Response Date Recorded In the last month, have you been in contact with someone who was confirmed or suspected to have Coronavirus / COVID-19? No / Unsure 08/01/2021 1:35 PM COSTUME MAKER documented as of this encounter Miscellaneous [...] [facility] 08/20/20 Telemedicine Kishore Prieto APRN, EDGER MACHINE HELPER [facility] [place] Showing recent visits within past 365 days and meeting all other requirements Future Appointments Date Type Provider Dept 10/31/21 Appointment Jabier Peck MD [facility] Showing future appointments within next 90 days and meeting all other requirements UME MAKER documented in this encounter Plan of Treatment Not on file documented as of this encounter Visit Diagnoses Diagnosis Cervical radiculopathy Brachial neuritis or radiculitis nos documented in this encounter Additional Health Concerns Infection Onset Date Last Indicated Resolved Time COVID - 19 Confirmed 05/31/2022 05/31/2022 023 12:16 AM COSTUME MAKER Respiratory Rule Out - RPA 02/26/2023 02/26/2023 0 02/26/2023 11:31 AM CDT COVID - 19 02/26/2023 02/26/2023 03/08/2023 12:1 6 AM CDT documented as of this encounter Care Teams Physical Medicine Physician Relationship Specialty Start Date End Date Jabier Peck MD #2 [facility] 205 [place] [address] PCP - General Family Medicine 06/22/20 01/16/24 Tad Mcintosh MD [address] [place] [address] PCP - General Family Medicine 01/17/24 Srikanth Adrian MD #2 [facility] [address] [place] [address] Hospice Care Sales Consultant Cardiovascular Disease - Cardiology 02/02/22 08/06/24 Gloria Martinez MD #2 [facility] [address] [place] [address] Consulting Physician Urology 04/30/24 documented as of this encounter
--- OUTSIDE RECORDS SUMMARY | 2025-03-24 14:59 | XMS_ITS | Encounter Summary ---
Author Organization [facility] Address [address] [facility] [place] [place] [address] Phone Care Team Providers Care Nozzle Operator Name Role Phone Jabier Peck MD Primary Care Provider + -[phone] Srikanth Adrian MD Unavailable Tad Romero MD Primary Care Provider [phone] Gloria Martinez MD Unavailable [phone] Reason for Visit * Reason Comments Medication Refill Encounter Details Date Type Department Care Team (Late st Contact Info) Description 10/21/2021 Refill [facility] #2 [place] [address] Jabier Peck MD #[address] [address] Medication Refill Social History Tobacco Use Types [...] CDT Gender Identity Male 05/03/2023 12:44 PM FLIGHT ATTENDANT INFLIGHT SERVICES Sexual Orientation Lesbian or Wolff 05/03/2023 12 :44 PM FLIGHT ATTENDANT INFLIGHT SERVICES documented as of this encounter Miscellaneous Notes [...] 19 Confirmed 05/31/2022 05/31/2022 023 12:16 AM FLIGHT ATTENDANT INFLIGHT SERVICES Respiratory Rule Out - RPA 02/26/2023 02/26/2023 0 02/26/2023 11:31 AM CDT COVID - 19 02/26/2023 02/26/2023 03/08/2023 12:1 6 AM CDT documented as of this encounter Care Teams Nozzle Operator Relationship Specialty Start Date End Date Jabier Peck MD #2 [facility] [address] [place] [address] PCP - General Family Medicine 06/22/20 01/16/24 Tad Mcintosh MD [address] [place] [address] PCP - General Family Medicine 01/17/24 Srikanth Adrian MD #2 [facility] [address] [place] [address] Fence Maker Cardiovascular Disease - Cardiology 02/02/22 08/06/24 Gloria Martinez MD #[address] [facility] [address] [place] [address] Consulting Physician Urology 04/30/24 documented as of this encounter
--- OUTSIDE RECORDS SUMMARY | 2025-03-24 14:59 | XMS_ITS | Encounter Summary ---
Author Organization [facility] Address [address] [facility] [place] [address] Phone Care Team Providers Care Disc Pad Plate Filler Name Role Phone Jabier Peck MD Primary Care Provider + -[phone] Srikanth Adrian MD Unavailable Tda Romero MD Primary Care Provider +-[phone] Gloria Martinez MD Unavailable [phone] Reason for Visit * Reason Comments Medication Refill Encounter Details Date Type Department Care Team (Late st Contact Info) Description 12/11/2021 Refill [facility] #2 [place] [address] Jabier Peck MD #[address] [address] Medication Refill Social History Tobacco Use Types [...] CDT Gender Identity Male 05/03/2023 12:44 PM 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 [address] [place] [address] PCP - General Family Medicine 06/22/20 01/16/24 Tad Mcintosh MD [address] [place] [address] PCP - General Family Medicine 01/17/24 Srikanth Adrian MD #[address] [facility] [address] [place] [address] Automotive Glass Technician Cardiovascular Disease - Cardiology 02/02/22 08/06/24 Gloria Martinez MD #2 [facility] [address] [place] [address] Consulting Physician Urology 04/30/24 documented as of this encounter
--- OUTSIDE RECORDS SUMMARY | 2025-03-24 14:59 | XMS_ITS | Encounter Summary ---
Author Organization [facility] Address [address] [facility] [place] [address] Phone Care Team Providers Care Youth Manager Name Role Phone Jabier Peck MD Primary Care Provider + [phone] Srikanth Adrian MD Unavailable Tad Romero MD Primary Care Provider [phone] Gloria Martinez MD Unavailable [phone] Reason for Visit * Reason Comments Medication Refill Encounter Details Date Type Department Care Team (Late st Contact Info) Description 05/11/2021 Refill [facility] #2 [place] [address] Jabier Peck MD #[address] [address] Medication Refill Social History Tobacco Use Types [...] Gender Identity Male 05/03/2023 12:44 PM VENEER CLIPPER Sexual Orientation Lesbian or Wolff 05/03/2023 12 :44 PM VENEER CLIPPER COVID-19 Exposure Response Date Recorded In the last month, have you been in contact with someone who was confirmed or suspected to have Coronavirus / COVID-19? No / Unsure 05/05/2021 12:33 PM VENEER CLIPPER documented as of this encounter Miscellaneous Notes [...] 08/20/20 Telemedicine Kishore Prieto APRN, RICHARD [facility] 08/06/20 Telemedicine Kishore Prieto APRN, RETURN AGENT AIRPORT [facility] 06/22/20 Office Visit Kishore Prieto APRN, RETURN AGENT AIRPORT [facility] Showing recent visits within past 365 days and meeting all other requirements Future Appointments Date Type Provider Dept 08/01/21 Appointment Jabier Peck MD [facility] Showing future appointments within next 90 days and meeting all other requirements ER CLIPPER documented in this encounter Plan of Treatment Not on file documented as of this encounter Visit Diagnoses Diagnosis Cervical radiculopathy Brachial neuritis or radiculitis nos documented in this encounter Additional Health Concerns Infection Onset Date Last Indicated Resolved Time COVID - 19 Confirmed 05/31/2022 05/31/2022 023 12:16 AM VENEER CLIPPER Respiratory Rule Out - RPA 02/26/2023 02/26/2023 0 02/26/2023 11:31 AM CDT COVID - 19 02/26/2023 02/26/2023 03/08/2023 12:1 6 AM CDT documented as of this encounter Care Teams Youth Manager Relationship Specialty Start Date End Date Jabier Peck MD #2 [facility] [address] [place] [address] PCP - General Family Medicine 06/22/20 01/16/24 Tad Mcintosh MD [address] [place] [address] PCP - General Family Medicine 01/17/24 Srikanth Adrian MD #2 [facility] [address] [place] [address] Outreach Manager Cardiovascular Disease - Cardiology 02/02/22 08/06/24 Gloria Martinez MD #2 [facility] [address] [place] [address] Consulting Physician Urology 04/30/24 documented as of this encounter
--- OUTSIDE RECORDS SUMMARY | 2025-03-24 14:59 | XMS_ITS | Encounter Summary ---
Author Organization [facility] Address [address] [place] [address] Phone Care Team Providers Care Trademark Attorney Name Role Phone Srikanth Adrian MD Unavailable Tad Romero MD Primary Care Provider [phone] Gloria Martinez MD Unavailable [phone] Reason for Visit * Reason Comments Medication Refill Encounter Details Date Type Department Care Team (Late st Contact Info) Description 03/29/[address] [facility] - Family Medicine [facility] #2 [place] [phone] Kishore Prieto, JOYA, SOURCE WATER PROTECTION SPECIALIST #[address] [address] Medication Refill Social History Tobacco Use Types [...] Gender Identity Male 05/03/2023 12:44 PM PURCHASING ASSOCIATE Sexual Orientation Lesbian or Wolff 05/03/2023 12 :44 PM PURCHASING ASSOCIATE documented as of this encounter Miscellaneous Notes * Telephone Encounter - Cristine Preston RN - 03/30/2024 1:22 PM CDT PCP: Tad Mcintosh MD documented in this encounter Plan of Treatment Not on file documented as of this encounter Visit Diagnoses Not on filedocumented in this encounter Care Teams Trademark Attorney Relationship Specialty Start Date End Date Tad Mcintosh MD [address] [place] [address] PCP - General Family Medicine 01/17/24 Srikanth Adrian MD School Teacher Cardiovascular Disease - Cardiology 02/02/22 08/06/24 Gloria Martinez MD #[address] [address] Consulting Physician Urology 04/30/24 documented as of this encounter
--- OUTSIDE RECORDS SUMMARY | 2025-03-24 14:59 | XMS_ITS | Encounter Summary ---
Author Organization [facility] Address [address] [facility] [place] [address] Phone Care Team Providers Care Bench Shear Operator Name Role Phone Tad Mcintosh MD Primary Care Provider [phone] Gloria Martinez MD Unavailable [phone] Reason for Visit * Reason Comments Medication Refill Encounter Details Date Type Department Care Team (Late st Contact Info) Description 10/21/2024 Refill [facility] #2 [place] [address] Jabier Peck MD #[address] [address] Medication Refill Social History Tobacco Use Types [...] CDT Gender Identity Male 05/03/2023 12:44 PM PARTY PLAN SELLING DISTRIBUTOR Sexual Orientation Lesbian or Wolff 05/03/2023 12 :44 PM PARTY PLAN SELLING DISTRIBUTOR documented as of this encounter Miscellaneous Notes * Telephone Encounter - Francine Soto RN - 10/22/2024 9:04 AM CDT PCP: Tad Mcintosh MD documented in this encounter Plan of Treatment Not on file documented as of this encounter Visit Diagnoses Not on filedocumented in this encounter Care Teams Bench Shear Operator Relationship Specialty Start Date End Date Tad Mcintosh MD [address] [place] [address] PCP - General Family Medicine 01/17/24 Gloria Martinez MD #[address] [address] Consulting Physician Urology 04/30/24 documented as of this encounter
--- OUTSIDE RECORDS SUMMARY | 2025-03-24 14:59 | XMS_ITS | Encounter Summary ---
Author Organization [facility] Address [address] [place] [address] Phone Care Team Providers Care Psychological Operations Name Role Phone Jabier Peck MD Primary Care Provider + [phone] Srikanth Adrian MD Unavailable Tad Romero MD Primary Care Provider [phone] Gloria Martinez MD Unavailable [phone] Reason for Visit * Reason Comments Medication Refill Encounter Details Date Type Department Care Team (Late st Contact Info) Description 04/11/2021 Refill [facility] #2 [place] [address] Kishore Prieto, GLOBAL CATEGORY MANAGER, ALTERATIONS MANAGER #[address] [address] Medication Refill Social History Tobacco Use Types [...] Gender Identity Male 05/03/2023 12:44 PM PARKING LOT SUPERVISOR Sexual Orientation Lesbian or Wolff 05/03/2023 12 :44 PM PARKING LOT SUPERVISOR COVID-19 Exposure Response Date Recorded In the last month, have you been in contact with someone who was confirmed or suspected to have Coronavirus / COVID-19? No / Unsure 04/14/2021 12:48 PM CDT documented as of this encounter Miscellaneous Notes * Telephone Encounter - Sabina Holly RN - 04/12/2021 12:20 PM CDT Tonny calling in from [facility]. He is requesting to find [...] Confirmed 05/31/2022 05/31/2022 023 12:16 AM PARKING LOT SUPERVISOR Respiratory Rule Out - RPA 02/26/2023 02/26/2023 0 02/26/2023 11:31 AM CDT COVID - 19 02/26/2023 02/26/2023 03/08/2023 12:1 6 AM CDT documented as of this encounter Care Teams Psychological Operations Relationship Specialty Start Date End Date Jabier Peck MD #[address] [address] PCP - General Family Medicine 06/22/20 01/16/24 Tad Mcintosh MD [address] [place] [address] PCP - General Family Medicine 01/17/24 Srikanth Adrian MD #2 [facility] [address] [place] [address] Air Press Operator Cardiovascular Disease - Cardiology 02/02/22 08/06/24 Gloria Martinez MD #2 [facility] [address] [place] [address] Consulting Physician Urology 04/30/24 documented as of this encounter
--- OUTSIDE RECORDS SUMMARY | 2025-03-24 14:59 | XMS_ITS | Encounter Summary ---
Author Organization [facility] Address [address] [facility] [place] [address] Phone Care Team Providers Care Salt Washer Harvesting Station Name Role Phone Jabier Peck MD Primary Care Provider + [phone] Srikanth dArian MD Unavailable Tad Romero MD Primary Care Provider [phone] Gloria Martinez MD Unavailable [phone] Reason for Visit * Reason Comments Medication Refill Encounter Details Date Type Department Care Team (Late st Contact Info) Description 02/24/2022 Refill [facility] #2 [place] [address] Jabier Peck MD #[address] [address] Medication Refill Social History Tobacco Use Types [...] Gender Identity Male 05/03/2023 12:44 PM CUSTOMER RESOURCE SPECIALIST Sexual Orientation Lesbian or Wolff 05/03/2023 12 :44 PM CUSTOMER RESOURCE SPECIALIST COVID-19 Exposure Response Date Recorded In [...] 19 Confirmed 05/31/2022 05/31/202203/2 023 12:16 AM CUSTOMER RESOURCE SPECIALIST Respiratory Rule Out - RPA 02/26/2023 02/26/2023 0 02/26/2023 11:31 AM CDT COVID - 19 02/26/2023 02/26/2023 03/08/2023 12:1 6 AM CDT documented as of this encounter Care Teams Salt Washer Harvesting Station Relationship Specialty Start Date End Date Jabier Peck MD #2 [facility] [address] [place] [address] PCP - General Family Medicine 06/22/20 01/16/24 Tad Mcintosh MD [address] [place] [address] PCP - General Family Medicine 01/17/24 Srikanth Adrian MD #2 [facility] [address] [place] [address] Chassis Mechanic Cardiovascular Disease - Cardiology 02/02/22 08/06/24 Gloria Martinez MD #2 [facility] [address] [place] [address] Consulting Physician Urology 04/30/24 documented as of this encounter
--- OUTSIDE RECORDS SUMMARY | 2025-03-24 14:59 | XMS_ITS | Encounter Summary ---
Author Organization [facility] Address [address] [facility] [place] [address] Phone Care Team Providers Care Crew Scheduler Name Role Phone Jabier Peck MD Primary Care Provider + [phone] Srikanth Adrian MD Unavailable Tad Romero MD Primary Care Provider [phone] Gloria Martinez MD Unavailable [phone] Reason for Visit * Reason Comments Medication Refill Encounter Details Date Type Department Care Team (Late st Contact Info) Description 02/22/2022 Refill [facility] #2 [place] [address] Jabier Peck MD #[address] [address] Medication Refill Social History Tobacco Use Types [...] CDT Gender Identity Male 05/03/2023 12:44 PM LAB SUPPORT TECHNICIAN Sexual Orientation Lesbian or Wolff 05/03/2023 12 :44 PM LAB SUPPORT TECHNICIAN COVID-19 Exposure Response Date Recorded In [...] 03/16/21 Office Visit Kishore Prieto APRN, RICHARD [facility] Showing recent visits within [...] 19 Confirmed 05/31/2022 05/31/2022 023 12:16 AM LAB SUPPORT TECHNICIAN Respiratory Rule Out - RPA 02/26/2023 02/26/2023 0 02/26/2023 11:31 AM CDT COVID - 19 02/26/2023 02/26/2023 03/08/2023 12:1 6 AM CDT documented as of this encounter Care Teams Crew Scheduler Relationship Specialty Start Date End Date Jabier Peck MD #2 [facility] [address] [place] [address] PCP - General Family Medicine 06/22/20 01/16/24 Tad Mcintosh MD [address] [place] [address] PCP - General Family Medicine 01/17/24 Srikanth Adrian MD #2 [facility] [address] [place] [address] Quality Control Assessor Cardiovascular Disease - Cardiology 02/02/22 08/06/24 Gloria Martinez MD #2 [facility] [address] [place] [address] Consulting Physician Urology 04/30/24 documented as of this encounter
--- OUTSIDE RECORDS SUMMARY | 2025-03-24 14:59 | XMS_ITS | Encounter Summary ---
Author Organization [facility] Address [address] [facility] [place] [address] Phone Care Team Providers Care Substance Abuse Technician Name Role Phone Jabier Peck MD Primary Care Provider + [phone] Srikanth Adrian MD Unavailable Tad Romero MD Primary Care Provider [phone] Gloria Martinez MD Unavailable [phone] Reason for Visit * Reason Comments Medication Refill Encounter Details Date Type Department Care Team (Late st Contact Info) Description 02/02/2021 Refill [facility] #2 [place] [address] Jabier Peck MD #[address] [address] Medication Refill Social History Tobacco Use Types [...] CDT Gender Identity Male 05/03/2023 12:44 PM FORM STRIPPER Sexual Orientation Lesbian or Wolff 05/03/2023 12 :44 PM FORM STRIPPER documented as of this encounter Miscellaneous Notes [...] 11/16/20 Office Visit Kishore Pri[facility] APN, [facility] [place] 10/20/20 Office Visit [facility] 08/20/20 Telemedicine Kishore Prieto APN, RICHARD [facility] 08/06/20 Telemedicine Kishore Prieto APN, RICHARD [facility] 06/22/20 Office Visit Kishore Prieto APN, RICHARD [facility] Showing recent visits within past 365 days [...] 19 Confirmed 05/31/2022 05/31/2022 023 12:16 AM FORM STRIPPER Respiratory Rule Out - RPA 02/26/2023 02/26/2023 0 02/26/2023 11:31 AM CDT COVID - 19 02/26/2023 02/26/2023 03/08/2023 12:1 6 AM CDT documented as of this encounter Care Teams Substance Abuse Technician Relationship Specialty Start Date End Date Jabier Peck MD #2 [facility] [address] [place] [address] PCP - General Family Medicine 06/22/20 01/16/24 Tad Mcintosh MD [address] [place] [address] PCP - General Family Medicine 01/17/24 Srikanth Adrian MD #2 [facility] [address] [place] [address] Stitcher Hand Cardiovascular Disease - Cardiology 02/02/22 08/06/24 Gloria Martinez MD #2 [facility] [address] [place] [address] Consulting Physician Urology 04/30/24 documented as of this encounter
--- OUTSIDE RECORDS SUMMARY | 2025-03-24 14:59 | XMS_ITS | Encounter Summary ---
Author Organization [facility] Address [address] [facility] [place] [address] Phone Care Team Providers Care Loom Fixer Apprentice Name Role Phone Jabier Peck MD Primary Care Provider + [phone] Srikanth Adrian MD Unavailable Tad Romero MD Primary Care Provider [phone] Gloria Martinez MD Unavailable [phone] Reason for Visit * Reason Comments Medication Refill Encounter Details Date Type Department Care Team (Late st Contact Info) Description 04/13/2023 Refill [facility] #2 [place] [address] Jabier Peck MD #[address] [address] Medication Refill Social History Tobacco Use Types [...] CDT Gender Identity Male 05/03/2023 12:44 PM HAIR CLIPPER POWER Sexual Orientation Lesbian or Wolff 05/03/2023 12 :44 PM HAIR CLIPPER POWER documented as of this encounter Miscellaneous Notes [...] Dept 02/26/23 Office Visit Kishore Prieto APRN, WAREHOUSE GUARD [facility] 12/18/22 Telemedicine Jabier Peck MD [facility] 11/30/22 Telemedicine Kishore Prieto APRN, WAREHOUSE GUARD [facility] 08/21/22 Office Visit Jabier Peck MD [facility] [...] nos documented in this encounter Care Teams Loom Fixer Apprentice Relationship Specialty Start Date End Date Jabier Peck MD #2 [facility] [address] [place] [address] PCP - General Family Medicine 06/22/20 01/16/24 Tad Mcintosh MD [address] [place] [address] PCP - General Family Medicine 01/17/24 Srikanth Adrian MD #2 [facility] [address] [place] [address] Senior Economist Cardiovascular Disease - Cardiology 02/02/22 08/06/24 Gloria Martinez MD #2 [facility] [address] [place] [address] Consulting Physician Urology 04/30/24 documented as of this encounter
--- OUTSIDE RECORDS SUMMARY | 2025-03-24 14:59 | XMS_ITS | Encounter Summary ---
Author Organization [facility] Address [address] [facility] [place] [address] Phone Care Team Providers Care Telesales Team Leader Name Role Phone Srikanth Adrian MD Unavailable Tad Romero MD Primary Care Provider [phone] Gloria Martinez MD Unavailable [phone] Reason for Visit * Reason Comments Medication Refill Encounter Details Date Type Department Care Team (Late st Contact Info) Description 03/15/2024 Refill [facility] - Family Medicine [facility] #2 [place] [phone] Kishore Prieto, JOYA, SUPERINTENDENT BUILDING #[address] [address] Medication Refill Social History Tobacco Use Types [...] CDT Gender Identity Male 05/03/2023 12:44 PM CARPET YARN WINDER OPERATOR Sexual Orientation Lesbian or Wolff 05/03/2023 12 :44 PM CARPET YARN WINDER OPERATOR documented as of this encounter Miscellaneous Notes * Telephone Encounter - Francine Soto RN - 03/17/2024 12:59 PM CDT PCP Tad Mcintosh MD documented in this encounter Plan of Treatment Not on file documented as of this encounter Visit Diagnoses Not on filedocumented in this encounter Care Teams Telesales Team Leader Relationship Specialty Start Date End Date Tad Mcintosh MD [address] [place] [address] PCP - General Family Medicine 01/17/24 Srikanth Adrian MD Tennis Court Attendant Cardiovascular Disease - Cardiology 02/02/22 08/06/24 Gloria Martinez MD #[address] [address] Consulting Physician Urology 04/30/24 documented as of this encounter
--- OUTSIDE RECORDS SUMMARY | 2025-03-24 14:59 | XMS_ITS | Encounter Summary ---
Author Organization [facility] Address [address] [facility] [place] [address] Phone Care Team Providers Care Trenching Machine Operator Name Role Phone Jabier Peck MD Primary Care Provider + [phone] Srikanth Adrian MD Unavailable Tad Romero MD Primary Care Provider [phone] Gloria Martinez MD Unavailable [phone] Reason for Visit * Reason Comments Medication Refill Encounter Details Date Type Department Care Team (Late st Contact Info) Description 09/22/2021 Refill [facility] #2 [place] [address] Jabier Peck MD #[address] [address] Medication Refill Social History Tobacco Use Types [...] Wolff 05/03/2023 12 :44 PM DATA MANAGER COVID-19 Exposure Response Date Recorded In [...] Provider Dept 09/27/21 Appointment Kishore Prieto APRN, CABLE OPERATOR [facility] 10/31/21 Appointment Jabier Peck MD [...] 19 Confirmed 05/31/2022 05/31/2022 023 12:16 AM DATA MANAGER Respiratory Rule Out - RPA 02/26/2023 02/26/2023 0 02/26/2023 11:31 AM CDT COVID - 19 02/26/2023 02/26/2023 03/08/2023 12:1 6 AM CDT documented as of this encounter Care Teams Trenching Machine Operator Relationship Specialty Start Date End Date Jabier Peck MD #2 [facility] [address] [place] [address] PCP - General Family Medicine 06/22/20 01/16/24 Tad Mcintosh MD [address] [place] [address] PCP - General Family Medicine 01/17/24 Srikanth Adrian MD #2 [facility] [address] [place] [address] Fire Chief Deputy Cardiovascular Disease - Cardiology 02/02/22 08/06/24 Gloria Martinez MD #2 [facility] [address] [place] [address] Consulting Physician Urology 04/30/24 documented as of this encounter
--- OUTSIDE RECORDS SUMMARY | 2025-03-24 14:59 | XMS_ITS | Encounter Summary ---
Author Organization [facility] Address [address] [place] [facility] [place] [address] Phone Care Team Providers Care Pile Driving Nozzleman Name Role Phone Jabier Peck MD Primary Care Provider + [phone] Srikanth Adrian MD Unavailable Tad Romero MD Primary Care Provider [phone] Gloria Martinez MD Unavailable [phone] Encounter Details Date Type Department Care Team (Late st Contact Info) Description 03/21/2023 Telephone [facility] [address] [place] [address] Jabier Peck MD #[address] [address] Social History Tobacco Use Types Packs/Day Years [...] CDT Gender Identity Male 05/03/2023 12:44 PM TRAILER MECHANIC Sexual Orientation Lesbian or Wolff 05/03/2023 12 :44 PM TRAILER MECHANIC COVID-19 Exposure Response Date Recorded In [...] on filedocumented in this encounter Care Teams Pile Driving Nozzleman Relationship Specialty Start Date End Date Jabier Peck MD #2 [facility] [address] [place] [address] PCP - General Family Medicine 06/22/20 01/16/24 Tad Mcintosh MD [address] [place] [address] PCP - General Family Medicine 01/17/24 Srikanth Adrian MD #2 [facility] [address] [place] [address] Vp Ad Products And Planning Cardiovascular Disease - Cardiology 02/02/22 08/06/24 Gloria Martinez MD #2 [facility] [address] [place] [address] Consulting Physician Urology 04/30/24 documented as of this encounter
--- OUTSIDE RECORDS SUMMARY | 2025-03-24 14:59 | XMS_ITS | Encounter Summary ---
Author Organization [facility] Address [address] [facility] [place] [address] Phone Care Team Providers Care Subway Guard Name Role Phone Tad Mcintosh MD Primary Care Provider Gloria Martinez MD Unavailable [phone] Reason for Visit * Reason Comments Medication Refill Encounter Details Date Type Department Care Team (Late st Contact Info) Description 10/20/2024 Refill [facility] #2 [place] [address] Jabier Peck MD #[address] [address] Medication Refill Social History Tobacco Use Types [...] CDT Gender Identity Male 05/03/2023 12:44 PM PROTECTIVE SERVICES CASE WORKER Sexual Orientation Lesbian or Wolff 05/03/2023 12 :44 PM PROTECTIVE SERVICES CASE WORKER documented as of this encounter Miscellaneous Notes * Telephone Encounter - Francine Soto RN - 10/21/2024 8:22 AM CDT PCP: Tad Mcintosh MD documented in this encounter Plan of Treatment Not on file documented as of this encounter Visit Diagnoses Not on filedocumented in this encounter Care Teams Subway Guard Relationship Specialty Start Date End Date Tad Mcintosh MD [address] [place] [address] PCP - General Family Medicine 01/17/24 Gloria Martinez MD #[address] [address] Consulting Physician Urology 04/30/24 documented as of this encounter
--- OUTSIDE RECORDS SUMMARY | 2025-03-24 14:59 | XMS_ITS | Encounter Summary ---
Author Organization [facility] Address [address] [facility] [place] [address] Phone Care Team Providers Care Precision Instrument And Tool Maker Name Role Phone Jabier Peck MD Primary Care Provider + [phone] Srikanth Adrian MD Unavailable Tad Romero MD Primary Care Provider [phone] Gloria Martinez MD Unavailable [phone] Reason for Visit * Reason Comments Medication Refill Encounter Details Date Type Department Care Team (Late st Contact Info) Description 05/14/2023 Refill [facility] #2 [place] [address] Jabier Peck MD #[address] [address] Medication Refill Social History Tobacco Use Types [...] Gender Identity Male 05/03/2023 12:44 PM GLASS WASHER Sexual Orientation Lesbian or Wolff 05/03/2023 12 :44 PM GLASS WASHER documented as of this encounter Miscellaneous [...] 90 days and meeting all other requirements S WASHER documented in this encounter Plan of Treatment Not on file documented as of this encounter Visit Diagnoses Not on filedocumented in this encounter Care Teams Precision Instrument And Tool Maker Relationship Specialty Start Date End Date Jabier Peck MD #2 [facility] [address] [place] [address] PCP - General Family Medicine 06/22/20 01/16/24 Tad Mcintosh MD [address] [place] [address] PCP - General Family Medicine 01/17/24 Srikanth Adrian MD #2 [facility] [address] [place] [address] Tree Puller Cardiovascular Disease - Cardiology 02/02/22 08/06/24 Gloria Martinez MD #2 [facility] [address] [place] [address] Consulting Physician Urology 04/30/24 documented as of this encounter
--- OUTSIDE RECORDS SUMMARY | 2025-03-24 14:59 | XMS_ITS | Encounter Summary ---
Author Organization [facility] Address [address] [facility] [place] [address] Phone Care Team Providers Care Movement Assembler Name Role Phone Jabier Peck MD Primary Care Provider + [phone] Srikanth Adrian MD Unavailable Tad Romero MD Primary Care Provider [phone] Gloria Martinez MD Unavailable [phone] Reason for Visit * Reason Comments Medication Refill Encounter Details Date Type Department Care Team (Late st Contact Info) Description 12/07/2023 Refill [facility] #2 [place] [address] Jabier Peck MD #[address] [address] Medication Refill Social History Tobacco Use Types [...] Gender Identity Male 05/03/2023 12:44 PM METAL HANDLER Sexual Orientation Lesbian or Wolff 05/03/2023 12 :44 PM METAL HANDLER documented as of this encounter Miscellaneous Notes * Telephone Encounter - Sheyla Burgess RN - 12/07/2023 3:21 PM CDT Per nursing clinical judgement, provider to review and approve the medication(s) order(s) if appropriate. Requested Prescriptions Pending Prescriptions Disp Refills albuterol 108 (90 Base) MCG/ACT Aerosol Solution [Pharmacy Med Name: ALBUTEROL HFA 90 MCG INHALER (AZ] 8.5 g Sig: TRANSFERRED: 06/15/23 -READ RX [...] [facility] 12/18/22 Telemedicine Jabier Peck MD [facility] Showing recent visits within past 365 days and meeting all other requirements Future Appointments No visits were found meeting these conditions. Showing future appointments within next 90 days and meeting all other requirements documented in this encounter Plan of Treatment Not on file documented as of this encounter Visit Diagnoses Not on filedocumented in this encounter Care Teams Movement Assembler Relationship Specialty Start Date End Date Jabier Peck MD #[address] [address] PCP - General Family Medicine 06/22/20 01/16/24 Tad Mcintosh MD [address] [place] [address] PCP - General Family Medicine 01/17/24 Srikanth Adrian MD [facility]2 [facility] [address] [place] [address] Wheel Polisher Cardiovascular Disease - Cardiology 02/02/22 08/06/24 Gloria Martinez MD #2 [facility] [address] [place] [address] Consulting Physician Urology 04/30/24 documented as of this encounter
--- OUTSIDE RECORDS SUMMARY | 2025-03-24 14:59 | XMS_ITS | Encounter Summary ---
Author Organization [facility] Address [address] [facility] [place] [address] Phone Care Team Providers Care Acting Section Chief Name Role Phone Jabier Peck MD Primary Care Provider + -[phone] Srikanth Adrian MD Unavailable Tad Romero MD Primary Care Provider [phone] Gloria Martinez MD Unavailable [phone] Reason for Visit * Reason Comments Medication Refill Encounter Details Date Type Department Care Team (Late st Contact Info) Description 11/23/2021 Refill [facility] #2 [place] [address] Jabier Peck MD #[address] [address] Medication Refill Social History Tobacco Use Types [...] CDT Gender Identity Male 05/03/2023 12:44 PM ALL SOURCE INTELLIGENCE Sexual Orientation Lesbian or Wolff 05/03/2023 12 :44 PM ALL SOURCE INTELLIGENCE documented as of this encounter Miscellaneous Notes [...] [place] 03/16/21 Office Visit Kishore Prieto APRN, PIANO TECHNICIAN [facility] Showing recent visits within past 365 [...] 19 Confirmed 05/31/2022 05/31/2022 023 12:16 AM ALL SOURCE INTELLIGENCE Respiratory Rule Out - RPA 02/26/2023 02/26/2023 0 02/26/2023 11:31 AM CDT COVID - 19 02/26/2023 02/26/2023 03/08/2023 12:1 6 AM CDT documented as of this encounter Care Teams Acting Section Chief Relationship Specialty Start Date End Date Jabier Peck MD #[address] [address] PCP - General Family Medicine 06/22/20 01/16/24 Tad Mcintosh MD [address] [place] [address] PCP - General Family Medicine 01/17/24 Srikanth Adrian MD #2 [facility] [address] [place] [address] Journeyman Welder Cardiovascular Disease - Cardiology 02/02/22 08/06/24 Gloria Martinez MD #2 [facility] [address] [place] [address] Consulting Physician Urology 04/30/24 documented as of this encounter
--- OUTSIDE RECORDS SUMMARY | 2025-03-24 14:59 | XMS_ITS | Encounter Summary ---
Author Organization [facility] Address [address] [facility] [place] [address] Phone Care Team Providers Care Sampler And Test Preparer Name Role Phone Jabier Peck MD Primary Care Provider + [phone] Srikanth Adrian MD Unavailable Tad Romero MD Primary Care Provider [phone] Gloria Martinez MD Unavailable [phone] Reason for Visit * Reason Comments Medication Refill Encounter Details Date Type Department Care Team (Late st Contact Info) Description 06/16/2021 Refill [facility] #2 [place] [address] Jabier Peck MD #[address] [address] Medication Refill Social History Tobacco Use Types [...] CDT Gender Identity Male 05/03/2023 12:44 PM TIE INSPECTOR Sexual Orientation Lesbian or Wolff 05/03/2023 12 :44 PM TIE INSPECTOR COVID-19 Exposure Response Date Recorded In the last month, have you been in contact with someone who was confirmed or suspected to have Coronavirus / COVID-19? No / Unsure 06/16/2021 1:10 PM TIE INSPECTOR documented as of this encounter Miscellaneous Notes [...] Visit Kishore Prieto APRN, RICHARD [facility] 10/20/20 Office Visit Jabier Peck MD [facility] 08/20/20 Telemedicine Kishore Prieto APRN, RICHARD [facility] [place] 08/06/20 Telemedicine Kishore Prieto APRN, MACHINE ASSEMBLER [facility] 06/22/20 Office Visit Kishore Prieto APRN, MACHINE ASSEMBLER [facility] Showing recent visits within past 365 days and meeting all other requirements Future Appointments Date Type Provider Dept 08/01/21 Appointment Jabier Peck MD [facility] Showing future appointments within next 90 days and meeting all other requirements INSPECTOR documented in this encounter Plan of Treatment Not on file documented as of this encounter Visit Diagnoses Diagnosis Cervical radiculopathy Brachial neuritis or radiculitis nos documented in this encounter Additional Health Concerns Infection Onset Date Last Indicated Resolved Time COVID - 19 Confirmed 05/31/2022 05/31/2022 023 12:16 AM TIE INSPECTOR Respiratory Rule Out - RPA 02/26/2023 02/26/2023 0 02/26/2023 11:31 AM CDT COVID - 19 02/26/2023 02/26/2023 03/08/2023 12:1 6 AM CDT documented as of this encounter Care Teams Sampler And Test Preparer Relationship Specialty Start Date End Date Jabier Peck MD #2 [facility] [address] [place] [address] PCP - General Family Medicine 06/22/20 01/16/24 Tad Mcintosh MD [address] [place] [address] PCP - General Family Medicine 01/17/24 Srikanth Adrian MD #2 [facility] [address] [place] [address] Refresh Technician Cardiovascular Disease - Cardiology 02/02/22 08/06/24 Gloria Martinez MD #2 [facility] [address] [place] [address] Consulting Physician Urology 04/30/24 documented as of this encounter
--- OUTSIDE RECORDS SUMMARY | 2025-03-24 14:59 | XMS_ITS | Encounter Summary ---
Author Organization [facility] Address [address] [facility] [place] [address] Phone Care Team Providers Care Ground Layer Name Role Phone Jabier Peck MD Primary Care Provider [phone] Srikanth Adrian MD Unavailable Tad Romero MD Primary Care Provider [phone] Gloria Martinez MD Unavailable [phone] Reason for Visit * Reason Onset Date Comments Medication Refill 03/23/2021 Encounter Details Date Type Department Care Team (Late st Contact Info) Description 03/23/2021 Refill [facility] - Family Medicine [facility] #2 [place] [address] Jabier ePck MD #[address] [address] Medication Refill Social History Tobacco Use Types [...] CDT Gender Identity Male 05/03/2023 12:44 PM PARTS COORDINATOR Sexual Orientation Lesbian or Wolff 05/03/2023 12 :44 PM PARTS COORDINATOR COVID-19 Exposure Response Date Recorded In the [...] Outpatient Visits 1 week ago Cervical radiculopathy [facility] - Kishore Alonso APN, HOTEL VALET ATTENDANT 4 months ago Dermatitis [facility] - Kishore Alonso APN, HOTEL VALET ATTENDANT 5 months ago Diet-controlled diabetes mellitus (HCC) [facility] - Jabier Aldridge MD 7 months ago Thrombophilia (HCC) [facility] - Kishore Alonso APN, HOTEL VALET ATTENDANT 7 months ago Obstructive sleep apnea syndrome [facility] - [facility] Morgan APN, HOTEL VALET ATTENDANT Upcoming Appointments Future Appointments Tomorrow [facility] RESP ROOM1 [facility] Respiratory Therapy, [facility] In 1 week Sofy Bowen, PT [facility], [facility] In 2 weeks Jabier Peck MD [facility] [place] [place] In 1 month Aria Delong APN, WAX PUMPER [facility] Neurology [facility] In 5 Jt Gupta MD [facility] - Cancer Center Oncology Services, [facility] OUTSIDE SOLAR SALES CONSULTANT - Recent and Past Visits Recent Visits Date Type Provider Dept 03/16/21 Office Visit Kishore Prieto APN, RICHARD [facility] 11/16/20 Office Visit Kishore Prieto APN, RICHARD [facility] 10/20/20 Office Visit Jabier Peck MD [facility] 08/20/20 Telemedicine Kishore Prieto APN, RICHARD [facility] 08/06/20 Telemedicine Kishore Prieto APN, RICHARD [facility] 06/22/20 Office Visit Kishore Prieto APN, HOTEL VALET ATTENDANT [facility] Showing recent visits within past 460 days with a meds authorizing provider and meeting all other requirements Future Appointments Date Type Provider Dept 04/08/21 Appointment Jabier Peck MD [facility] [place] Showing future appointments within next [...] 19 Confirmed 05/31/2022 05/31/2022 023 12:16 AM PARTS COORDINATOR Respiratory Rule Out - RPA 02/26/2023 02/26/2023 0 02/26/2023 11:31 AM CDT COVID - 19 02/26/2023 02/26/202303/0803/08/2023 12:1 6 AM CDT documented as of this encounter Care Teams Ground Layer Relationship Specialty Start Date End Date Jabier Peck MD #2 [facility] [address] [place] [address] PCP - General Family Medicine 06/22/20 01/16/24 Tad Mcintosh MD [address] [place] [address] PCP - General Family Medicine 01/17/24 Srikanth Adrian MD #[address] [address] Chief Service Observer Cardiovascular Disease - Cardiology 02/02/22 08/06/24 Gloria Martinez MD #[address] [address] Consulting Physician Urology 04/30/24 documented as of this encounter
--- OUTSIDE RECORDS SUMMARY | 2025-03-24 14:59 | XMS_ITS | Encounter Summary ---
Author Organization [facility] Address [address] [facility] [place] [address] Phone Care Team Providers Care Radio Personality Name Role Phone Jabier Peck MD Primary Care Provider + [phone] Srikanth Adrian MD Unavailable Tad Romero MD Primary Care Provider [phone] Gloria Martinez MD Unavailable [phone] Reason for Visit * Reason Comments Medication Refill Encounter Details Date Type Department Care Team (Late st Contact Info) Description 06/21/2022 Refill [facility] #2 [place] [address] Jabier Peck MD #[address] [address] Medication Refill Social History Tobacco Use Types [...] CDT Gender Identity Male 05/03/2023 12:44 PM TEXTILE CHEMIST Sexual Orientation Lesbian or Wolff 05/03/2023 12 :44 PM TEXTILE CHEMIST COVID-19 Exposure Response Date Recorded In the last 10 days, have yo u been in contact with someone who was confirmed or suspected to have Coronavirus/COVID-19? Yes 05/31/2022 2:12 PM TEXTILE CHEMIST documented as of this encounter Miscellaneous Notes * Telephone Encounter - Libertad Shearer RN - 06/21/2022 1:33 PM CST Name from pharmacy: [facility] MCG CAPSULE Will file in chart as: [facility] MCG Capsule The original prescription was discontinued on 02/24/2022 by Kishore Prieto APRN, RICHARD for thefollowing reason: Med List Clean Up. Renewing this prescription may not be appropriate. ILE CHEMIST documented in this encounter Plan of Treatment Not on file documented as of this encounter Visit Diagnoses Not on filedocumented in this encounter Additional Health Concerns Infection Onset Date Last Indicated Resolved Time Respiratory Rule Out - RPA 02/26/2023 02/26/2023 0 02/26/2023 11:31 AM CDT COVID - 19 02/26/2023 02/26/2023 03/08/2023 12:1 6 AM CDT documented as of this encounter Care Teams Radio Personality Relationship Specialty Start Date End Date Jabier Peck MD #[address] [address] PCP - General Family Medicine 06/22/20 01/16/24 Tad Mcintosh MD [address] [place] [address] PCP - General Family Medicine 01/17/24 Srikanth Adrian MD #[address] [address] Assembler Dry Cell And Battery Cardiovascular Disease - Cardiology 02/02/22 08/06/24 Gloria Martinez MD #[address] [address] Consulting Physician Urology 04/30/24 documented as of this encounter
--- OUTSIDE RECORDS SUMMARY | 2025-03-24 14:59 | XMS_ITS | Encounter Summary ---
Author Organization [facility] Address [address] [place] [address] Phone Care Team Providers Care Carton Folder Name Role Phone Jabier Peck MD Primary Care Provider + [phone] Srikanth Adrian MD Unavailable Tad Romero MD Primary Care Provider [phone] Gloria Martinez MD Unavailable [phone] Reason for Visit * Reason Comments Medication Refill Encounter Details Date Type Department Care Team (Late st Contact Info) Description 07/22/2021 Refill [facility] On[facility] Services [address] [place] [id number] Jt Morillo MD [address] [place] [address] Medication Refill Social History Tobacco Use Types [...] CDT Gender Identity Male 05/03/2023 12:44 PM TELEPHONE AD TAKER Sexual Orientation Lesbian or Wolff 05/03/2023 12 :44 PM TELEPHONE AD TAKER COVID-19 Exposure Response Date Recorded In the last month, have you been in contact with someone who was confirmed or suspected to have Coronavirus / COVID-19? No / Unsure 07/14/2021 12:17 PM TELEPHONE AD TAKER documented as of this encounter Miscellaneous Notes * Telephone Encounter - Michelle Wharton RN - 07/22/2021 2:26 PM TELEPHONE AD TAKER Refilled Eliquis PHONE AD TAKER documented in this encounter Plan of Treatment Not on file documented as of this encounter Visit Diagnoses Diagnosis History of thrombophilia associated with MTHFR mutation documented in this encounter Additional Health Concerns Infection Onset Date Last Indicated Resolved Time COVID - 19 Confirmed 05/31/2022 05/31/2022 023 12:16 AM TELEPHONE AD TAKER Respiratory Rule Out - RPA 02/26/2023 02/26/2023 0 02/26/2023 11:31 AM CDT COVID - 19 02/26/2023 02/26/2023 03/08/2023 12:1 6 AM CDT documented as of this encounter Care Teams Carton Folder Relationship Specialty Start Date End Date Jabier Peck MD #2 [facility] [address] [place] [address] PCP - General Family Medicine 06/22/20 01/16/24 Tad Mcintosh MD [address] [place] [address] PCP - General Family Medicine 01/17/24 Srikanth Adrian MD #2 [facility] [address] [place] [address] Specialty Sales Representative Cardiovascular Disease - Cardiology 02/02/22 08/06/24 Gloria Martinez MD #2 [facility] [address] [place] [address] Consulting Physician Urology 04/30/24 documented as of this encounter
--- OUTSIDE RECORDS SUMMARY | 2025-03-24 14:59 | XMS_ITS ---
Author Name ABBY BUTLER Address [address] [place] [address] Phone [facility] Address [address] [place] [address] Phone Care Team Providers Care Log Sawyer Name Role Phone ABBY BUTLER Unavailable [phone] ALLERGIES, ADVERSE REACTIONS AND ALERTS Allergy Name Allergy Date Allergy Status Allergy Severity Allergy Reaction NO KNOWN DRUG ALLERGIES PROBLEMS Problem Code Problem Description Problem Status Problem Da te Problem End Date 138015485-Upbxihuntxo tract congestion and cough Respiratory tract congestion and cough Current 04/28/2022 10040722-Mxdexco disorder Bipolar disorder Chronic 04/28/2022 [id number]-Domztvmcv emphysema Pulmonary emphysema Chronic 04/28/2022 [id number]-Tnmqwf disease Kidney disease Chronic 04/28/2022 61915847-Yjvzsndc mellitus Diabetes mellitus Chronic 04/28/2022 [id number]-Jsojvb Asthma Chronic 04/28/2022 98994611-Fwskovqkevj sleep apnea syndrome Obstructive sleep apnea syndrome [...] ever smoked Sex: Male CARE TEAM INFORMATION Log Sawyer Provider ID Role Location Phone ABBY BUTLER [id number] NURSE PRACTITIONER [address] [place] [address] INSURANCE PROVIDERS Payer Name Policy type / Coverage type Covered constitution party ID Policy [place] Medicaid [id number] SELF [facility] MEDICARE ADVANTAGE Private Health Insurance [id number] SELF
--- OUTSIDE RECORDS SUMMARY | 2025-03-24 14:59 | XMS_ITS | Encounter Summary ---
Author Organization [facility] Address [address] [facility] [place] [address] Phone Care Team Providers Care Sugar Cane Farm Manager Name Role Phone Jabier Peck MD Primary Care Provider + [phone] Srikanth Adrian MD Unavailable Tad Romero MD Primary Care Provider [phone] Gloria Martinez MD Unavailable [phone] Reason for Visit * Reason Comments Medication Refill Encounter Details Date Type Department Care Team (Late st Contact Info) Description 03/19/2023 Refill [facility] #2 [place] [address] Jabier Peck MD #[address] [address] Medication Refill Social History Tobacco Use Types [...] CDT Gender Identity Male 05/03/2023 12:44 PM SERVICE OR WORK DISPATCHER Sexual Orientation Lesbian or Wolff 05/03/2023 12 :44 PM SERVICE OR WORK DISPATCHER COVID-19 Exposure Response Date Recorded In the [...] [place] 11/30/22 Telemedicine Kishore Prieto APRN, RICHARD [facility] [place] [facility] Office Visit Jabier Peck MD [facility] 07/20/22 Office Visit Gerri Rocha MD [facility] 05/03/22 Telemedicine Jabier Peck MD [facility] [place] Showing recent visits within past 365 [...] on filedocumented in this encounter Care Teams Sugar Cane Farm Manager Relationship Specialty Start Date End Date Jabier Peck MD #2 [facility] [address] [place] [address] PCP - General Family Medicine 06/22/20 01/16/24 Tad Mcintosh MD [address] [place] [address] PCP - General Family Medicine 01/17/24 Srikanth Adrian MD #2 [facility] [address] [place] [address] Intern Cardiovascular Disease - Cardiology 02/02/22 08/06/24 Gloria Martinez MD #2 [facility] [address] [place] [address] Consulting Physician Urology 04/30/24 documented as of this encounter
--- OUTSIDE RECORDS SUMMARY | 2025-03-24 14:59 | XMS_ITS | Encounter Summary ---
Author Organization [facility] Address [address] [facility] [place] [address] Phone Care Team Providers Care Substation Operator Name Role Phone Jabier Peck MD Primary Care Provider [phone] Srikanth Adrian MD Unavailable Tad Romero MD Primary Care Provider [phone] Gloria Martinez MD Unavailable [phone] Reason for Visit * Reason Onset Date Comments Medication Refill 10/27/2021 Encounter Details Date Type Department Care Team (Late st Contact Info) Description 10/27/2021 Refill [facility] Medical Group - Family Medicine [facility] #2 [place] [address] Jabier Peck MD #[address] [address] Medication Refill Social History Tobacco Use Types [...] CDT Gender Identity Male 05/03/2023 12:44 PM CO OP Sexual Orientation Lesbian or Wolff 05/03/2023 12 :44 PM CO OP documented as of this encounter Miscellaneous Notes [...] 19 Confirmed 05/31/2022 05/31/2022 023 12:16 AM CO OP Respiratory Rule Out - RPA 02/26/2023 02/26/2023 0 02/26/2023 11:31 AM CDT COVID - 19 02/26/2023 02/26/2023 03/08/2023 12:1 6 AM CDT documented as of this encounter Care Teams Substation Operator Relationship Specialty Start Date End Date Jabier Peck MD #2 [facility] [address] [place] [address] PCP - General Family Medicine 06/22/20 01/16/24 Tad Mcintosh MD [address] [place] [address] PCP - General Family Medicine 01/17/24 Srikanth Adrian MD #2 [facility] [address] [place] [address] Office Services Representative Cardiovascular Disease - Cardiology 02/02/22 08/06/24 Gloria Martinez MD #[address] [facility] [address] [place] [address] Consulting Physician Urology 04/30/24 documented as of this encounter
--- OUTSIDE RECORDS SUMMARY | 2025-03-24 14:59 | XMS_ITS | Encounter Summary ---
Author Organization [facility] Address [address] [facility] [place] [address] Phone Care Team Providers Care Senior Analyst Programmer Name Role Phone Jabier Peck MD Primary Care Provider + -[phone] Srikanth Adrian MD Unavailable Tad Romero MD Primary Care Provider +-[phone] Gloria Martinez MD Unavailable [phone] Reason for Visit * Reason Comments Medication Refill Encounter Details Date Type Department Care Team (Late st Contact Info) Description 07/28/2022 Refill [facility] #2 [place] [address] Jabier Peck MD #[address] [address] Medication Refill Social History Tobacco Use Types [...] CDT Gender Identity Male 05/03/2023 12:44 PM WILDLIFE REHABILITATOR Sexual Orientation Lesbian or Wolff 05/03/2023 12 :44 PM WILDLIFE REHABILITATOR COVID-19 Exposure Response Date Recorded In the last 10 days, have yo u been in contact with someone who was confirmed or suspected to have Coronavirus/COVID-19? No / Unsure 07/20/2022 2:30 PM WILDLIFE REHABILITATOR documented as of this encounter Miscellaneous Notes [...] Office Visit Kishore Prieto APRN, RICHARD [facility] 12/13/21 Telemedicine Kishore Prieto APRN, RICHARD [facility] [place] 08/01/21 Office Visit [facility]ier Peck MD [facility] Showing recent visits within past 365 days and meeting all other requirements Future Appointments No visits were found meeting these conditions. Showing future appointments within next 90 days and meeting all other requirements LIFE REHABILITATOR documented in this encounter Plan of Treatment [...] as of this encounter Care Teams Senior Analyst Programmer Relationship Specialty Start Date End Date Jabier Peck MD #2 [facility] [address] [place] [address] PCP - General Family Medicine 06/22/20 01/16/24 Tad Mcintosh MD [address] [place] [address] PCP - General Family Medicine 01/17/24 Srikanth Adrian MD #2 [facility] [address] [place] [address] Cook Short Order Cardiovascular Disease - Cardiology 02/02/22 08/06/24 Gloria Martinez MD #2 [facility] [address] [place] [address] Consulting Physician Urology 04/30/24 documented as of this encounter
--- OUTSIDE RECORDS SUMMARY | 2025-03-24 14:59 | XMS_ITS | Encounter Summary ---
Author Organization [facility] Address [address] [facility] [place] [address] Phone Care Team Providers Care Prepared Foods Service Team Member Name Role Phone Jabier Peck MD Primary Care Provider + -[phone] Srikanth Adrian MD Unavailable Tad Romero MD Primary Care Provider +-[phone] Gloria Martinez MD Unavailable [phone] Reason for Visit * Reason Comments Medication Refill Encounter Details Date Type Department Care Team (Late st Contact Info) Description 06/20/2022 Refill [facility] #2 [place] [address] Jabier Peck MD #[address] [address] Medication Refill Social History Tobacco Use Types [...] Gender Identity Male 05/03/2023 12:44 PM CHIEF HYDROELECTRIC STATION OPERATOR Sexual Orientation Lesbian or Wolff 05/03/2023 12 :44 PM CHIEF HYDROELECTRIC STATION OPERATOR COVID-19 Exposure Response Date Recorded In the last 10 days, have yo u been in contact with someone who was confirmed or suspected to have Coronavirus/COVID-19? Yes 05/31/2022 2:12 PM CHIEF HYDROELECTRIC STATION OPERATOR documented as of this encounter Miscellaneous [...] Peck MD [facility] 02/24/22 Office Visit Kisohre Prieto APRN, RICHARD [place] 01/31/22 Office Visit [...] 90 days and meeting all other requirements F HYDROELECTRIC STATION OPERATOR documented in this encounter Plan of Treatment Not on file documented as of this encounter Visit Diagnoses Diagnosis Cervical radiculopathy Brachial neuritis or radiculitis nos documented in this encounter Additional Health Concerns Infection Onset Date Last Indicated Resolved Time COVID - 19 Confirmed 05/31/2022 05/31/2022 023 12:16 AM CHIEF HYDROELECTRIC STATION OPERATOR Respiratory Rule Out - RPA 02/26/2023 02/26/2023 0 02/26/2023 11:31 AM CDT COVID - 19 02/26/2023 02/26/2023 03/08/2023 12:1 6 AM CDT documented as of this encounter Care Teams Prepared Foods Service Team Member Relationship Specialty Start Date End Date Jabier Peck MD #2 [facility] [address] [place] [address] PCP - General Family Medicine 06/22/20 01/16/24 Tad Mcintosh MD [address] [place] [address] PCP - General Family Medicine 01/17/24 Srikanth Adrian MD #2 [facility] [address] [place] [address] Parimutuel Ticket Seller Cardiovascular Disease - Cardiology 02/02/22 08/06/24 Gloria Martinez MD #2 [facility] [address] [place] [address] Consulting Physician Urology 04/30/24 documented as of this encounter
--- OUTSIDE RECORDS SUMMARY | 2025-03-24 14:59 | XMS_ITS | Encounter Summary ---
Author Organization [facility] Address [address] [facility] [place] [address] Phone Care Team Providers Care Tube Winder Hand Name Role Phone Jabier Peck MD Primary Care Provider + -[phone] Srikanth Adrian MD Unavailable Tad Romero MD Primary Care Provider [phone] Gloria Martinez MD Unavailable [phone] Reason for Visit * Reason Comments Medication Refill Encounter Details Date Type Department Care Team (Late st Contact Info) Description 06/12/2022 Refill [facility] #2 [place] [address] Jabier Peck MD #[address] [address] Medication Refill Social History Tobacco Use Types [...] Gender Identity Male 05/03/2023 12:44 PM CASINO FLOOR RUNNER Sexual Orientation Lesbian or Wolff 05/03/2023 12 :44 PM CASINO FLOOR RUNNER COVID-19 Exposure Response Date Recorded In the last 10 days, have yo u been in contact with someone who was confirmed or suspected to have Coronavirus/COVID-19? Yes 05/31/2022 2:12 PM CASINO FLOOR RUNNER documented as of this encounter Miscellaneous Notes * Telephone Encounter - Anjali Hartley RN - 06/13/2022 11:16 AM CASINO FLOOR RUNNER Medication warning. Per nursing clinical judgement, [...] 90 days and meeting all other requirements NO FLOOR RUNNER documented in this encounter Plan of Treatment Not on file documented as of this encounter Visit Diagnoses Not on filedocumented in this encounter Additional Health Concerns Infection Onset Date Last Indicated Resolved Time COVID - 19 Confirmed 05/31/2022 05/31/2022 023 12:16 AM CASINO FLOOR RUNNER Respiratory Rule Out - RPA 02/26/2023 02/26/2023 0 02/26/2023 11:31 AM CDT COVID - 19 02/26/2023 02/26/2023 03/08/2023 12:1 6 AM CDT documented as of this encounter Care Teams Tube Winder Hand Relationship Specialty Start Date End Date Jabier Peck MD #2 [facility] [address] [place] [address] PCP - General Family Medicine 06/22/20 01/16/24 Tad Mcintosh MD [address] [place] [address] PCP - General Family Medicine 01/17/24 Srikanth Adrian MD #2 [facility] [address] [place] [address] Fruit Rancher Cardiovascular Disease - Cardiology 02/02/22 08/06/24 Gloria Martinez MD #2 [facility] [address] [place] [address] Consulting Physician Urology 04/30/24 documented as of this encounter
--- OUTSIDE RECORDS SUMMARY | 2025-03-24 14:59 | XMS_ITS | Encounter Summary ---
Author Organization [facility] Address [address] [facility] [place] [place] [address] Phone Care Team Providers Care Car Changer Name Role Phone Jabier Kwok MD Primary Care Provider + -[phone] Srikanth Adrian MD Unavailable Tad Romero MD Primary Care Provider [phone] Gloria Martinez MD Unavailable [phone] Reason for Visit * Reason Comments Medication Refill Encounter Details Date Type Department Care Team (Late st Contact Info) Description 01/23/2022 Refill [facility] #2 [place] [address] Jabier Kwok MD #[address] [address] Medication Refill Social History Tobacco Use Types [...] CDT Gender Identity Male 05/03/2023 12:44 PM BRAIN SURGEON Sexual Orientation Lesbian or Wolff 05/03/2023 12 :44 PM BRAIN SURGEON COVID-19 Exposure Response Date Recorded In [...] 03/16/21 Office Visit Kishore Prieto APRN, RICHARD [facility] Showing recent visits within past 365 days and meeting all other requirements Future Appointments Date Type Provider Dept 01/31/22 Appointment Kishore Prieto APRN, RICHARD [facility] Showing future appointments within next 90 [...] [place] 04/29/21 Office Visit Jabier [facility] Showing recent visits within past 270 days and meeting all other requirements Future Appointments Date Type Provider Dept 01/31/22 Appointment Kishore Prieto APRN, BOXER OPERATOR [facility] Showing future appointments within next [...] 19 Confirmed 05/31/2022 05/31/2022 023 12:16 AM BRAIN SURGEON Respiratory Rule Out - RPA 02/26/2023 02/26/2023 0 02/26/2023 11:31 AM CDT COVID - 19 02/26/2023 02/26/2023 03/08/2023 12:1 6 AM CDT documented as of this encounter Care Teams Car Changer Relationship Specialty Start Date End Date Jabier Kwok MD #[address] [address] PCP - General Family Medicine 06/22/20 01/16/24 Tad Mcintosh MD [address] [place] [address] PCP - General Family Medicine 01/17/24 Srikanth Adrian MD #2 [facility] [address] [place] [address] Specialized Language Instructor Cardiovascular Disease - Cardiology 02/02/22 08/06/24 Gloria Martinez MD #2 [facility] [address] [place] [address] Consulting Physician Urology 04/30/24 documented as of this encounter
--- OUTSIDE RECORDS SUMMARY | 2025-03-24 14:59 | XMS_ITS | Clinical Summary ---
Author Organization [facility] Address [address] [place] [address] Care Team Providers Care Event Specialist Name Role Phone Jabier Peck MD MPH Primary Care Provider [phone] Allergies Active Allergy Reactions Criticality Noted Date [...] specimen (specimen) Venous blood / Unknown 12/30/2021 [facility] Provider LAB BLOOD ORDERABLES Becky l Result from Last 3 Months or Most Recently Relevant to Health Maintenance [place] [address] Medicaid [place] Care Teams Event Specialist Relationship Specialty Start Date End Date Jabier Peck MD MPH [address] [address] PCP - General Family Medicine 09/13/21
--- OUTSIDE RECORDS SUMMARY | 2025-03-24 14:59 | XMS_ITS | Encounter Summary ---
Author Organization [facility] Address [address] [facility] [place] [address] Phone Care Team Providers Care Yacht Rigger Name Role Phone Jabier Peck MD Primary Care Provider + -[phone] Srikanth Adrian MD Unavailable Tad Romero MD Primary Care Provider [phone] Gloria Martinez MD Unavailable [phone] Reason for Visit * Reason Onset Date Comments Medication Refill 03/28/2021 Encounter Details Date Type Department Care Team (Late st Contact Info) Description 03/28/2021 Refill [facility] - Family Medicine [facility] #2 [place] [address] Jabier Peck MD #[address] [address] Medication Refill Social History Tobacco Use Types [...] Gender Identity Male 05/03/2023 12:44 PM FLOOR TRADER Sexual Orientation Lesbian or Wolff 05/03/2023 12 :44 PM FLOOR TRADER COVID-19 Exposure Response Date Recorded In the [...] Dept 03/16/21 Office Visit Kishore Prieto APN, OPTICAL LABORATORY MECHANIC [facility] 11/16/20 Office Visit Kishore Prieto APN, OPTICAL LABORATORY MECHANIC [facility] 10/20/20 Office Visit [facility] 08/20/20 Telemedicine Kishore Prieto APN, RICHARD [facility] 08/06/20 Telemedicine Kishore Prieto APN, OPTICAL LABORATORY MECHANIC [facility] 06/22/20 Office Visit Kishore Prieto APN, OPTICAL LABORATORY MECHANIC [facility] Showing recent visits within past 365 days and meeting all other requirements Future Appointments Date Type Provider Dept 04/08/21 Appointment Jabier Peck MD [facility] Showing future appointments within next 90 days [...] 19 Confirmed 05/31/2022 05/31/2022 023 12:16 AM FLOOR TRADER Respiratory Rule Out - RPA 02/26/2023 02/26/2023 0 02/26/2023 11:31 AM CDT COVID - 19 02/26/2023 02/26/2023 03/08/2023 12:1 6 AM CDT documented as of this encounter Care Teams Yacht Rigger Relationship Specialty Start Date End Date Jabier Peck MD #2 [facility] [address] [place] [address] PCP - General Family Medicine 06/22/20 01/16/24 Tad Mcintosh MD [address] [place] [address] PCP - General Family Medicine 01/17/24 Srikanth Adrian MD #2 [facility] [address] [place] [address] Corduroy Brusher Operator Cardiovascular Disease - Cardiology 02/02/22 08/06/24 Gloria Martinez MD #2 [facility] [address] [place] [address] Consulting Physician Urology 04/30/24 documented as of this encounter
--- OUTSIDE RECORDS SUMMARY | 2025-03-24 14:59 | XMS_ITS | Encounter Summary ---
Author Organization [facility] Address [address] [facility] [place] [address] Phone Care Team Providers Care Supervisor Sewer Maintenance Name Role Phone Srikanth Adrian MD Unavailable Tad Romero MD Primary Care Provider [phone] Gloria Martinez MD Unavailable [phone] Reason for Visit * Reason Comments Medication Refill Encounter Details Date Type Department Care Team (Late st Contact Info) Description 07/26/2024 Refill [facility] - [facility] #2 [place] [address] Jabier Peck MD #[address] [address] Medication Refill Social History Tobacco Use Types [...] CDT Gender Identity Male 05/03/2023 12:44 PM PARK INTERPRETIVE RANGER Sexual Orientation Lesbian or Wolff 05/03/2023 12 :44 PM PARK INTERPRETIVE RANGER documented as of this encounter Miscellaneous Notes * Telephone Encounter - Sheyla Burgess RN - 07/28/2024 10:39 AM PARK INTERPRETIVE RANGER Changed PCPs to Tad Mcintosh MD INTERPRETIVE RANGER * Telephone Encounter - Sheyla Burgess RN - 07/28/2024 10:39 AM PARK INTERPRETIVE RANGER Now seeing Tad Mcintosh MD INTERPRETIVE RANGER * Telephone Encounter - Sheyla Burgess RN - 07/28/2024 10:38 AM PARK INTERPRETIVE RANGER Needs OV. Last seen April 2023. INTERPRETIVE RANGER documented in this encounter Plan of Treatment Not on file documented as of this encounter Visit Diagnoses Not on filedocumented in this encounter Care Teams Supervisor Sewer Maintenance Relationship Specialty Start Date End Date Tad Mcintosh MD [address] [place] [address] PCP - General Family Medicine 01/17/24 Srikanth Adrian MD Curatorial Specialist Cardiovascular Disease - Cardiology 02/02/22 08/06/24 Gloria Martinez MD #[address] [address] Consulting Physician Urology 04/30/24 documented as of this encounter
--- OUTSIDE RECORDS SUMMARY | 2025-03-24 14:59 | XMS_ITS | Encounter Summary ---
Author Organization [facility] Address [address] [facility] [place] [address] Phone Care Team Providers Care Social Media Marketer Name Role Phone Jabier Peck MD Primary Care Provider + [phone] Srikanth Adrian MD Unavailable Tad Romero MD Primary Care Provider [phone] Gloria Martinez MD Unavailable [phone] Reason for Visit * Reason Comments Medication Refill Encounter Details Date Type Department Care Team ([facility] st Contact Info) Description 05/25/2022 Refill [facility] Oncology Services [address] [place] [phone] Jt Morillo MD [address] [place] [address] Medication Refill Social History Tobacco Use Types [...] Gender Identity Male 05/03/2023 12:44 PM SALES SERVICE ROUTE MANAGER Sexual Orientation Lesbian or Wolff 05/03/2023 12 :44 PM SALES SERVICE ROUTE MANAGER COVID-19 Exposure Response Date Recorded In the last 10 days, have yo u been in contact with someone who was confirmed or suspected to have Coronavirus/COVID-19? No / Unsure 05/10/2022 2:32 PM SALES SERVICE ROUTE MANAGER documented as of this encounter Miscellaneous Notes * Telephone Encounter - Aisha Escamilla RN - 05/26/2022 11:00 AM CST Approved Eliquis per last f/u note. Pt to be on indefinite AC. S SERVICE ROUTE MANAGER documented in this encounter Plan of Treatment Not on file documented as of this encounter Visit Diagnoses Diagnosis History of thrombophilia associated with MTHFR mutation documented in this encounter Additional Health Concerns Infection Onset Date Last Indicated Resolved Time COVID - 19 Confirmed 05/31/2022 05/31/2022 023 12:16 AM SALES SERVICE ROUTE MANAGER Respiratory Rule Out - RPA 02/26/2023 02/26/2023 0 02/26/2023 11:31 AM CDT COVID - 19 02/26/2023 02/26/2023 03/08/2023 12:1 6 AM CDT documented as of this encounter Care Teams Social Media Marketer Relationship Specialty Start Date End Date Jabier Peck MD #[address] [address] PCP - General Family Medicine 06/22/20 01/16/24 Tad Mcintosh MD [address] [place] [address] PCP - General Family Medicine 01/17/24 Srikanth Adrian MD #[address] [address] Hydroelectric Plant Structural Engineer Cardiovascular Disease - Cardiology 02/02/22 08/06/24 Gloria Martinez MD #[address] [address] Consulting Physician Urology 04/30/24 documented as of this encounter
--- OUTSIDE RECORDS SUMMARY | 2025-03-24 14:59 | XMS_ITS | Encounter Summary ---
Author Organization [facility] Address [address] [facility] [place] [address] Phone Care Team Providers Care Account Installer Name Role Phone Jabier Peck MD Primary Care Provider + [phone] Srikanth Adrian MD Unavailable Tad Romero MD Primary Care Provider [phone] Gloria Martinez MD Unavailable [phone] Reason for Visit * Reason Comments Medication Refill Encounter Details Date Type Department Care Team (Late st Contact Info) Description 02/27/2023 Refill [facility] #2 [place] [address] Jabier Peck MD #[address] [address] Medication Refill Social History Tobacco Use Types [...] CDT Gender Identity Male 05/03/2023 12:44 PM EDGE GRINDER MACHINE Sexual Orientation Lesbian or Wolff 05/03/2023 12 :44 PM EDGE GRINDER MACHINE COVID-19 Exposure Response Date Recorded In [...] documented as of this encounter Care Teams Account Installer Relationship Specialty Start Date End Date Jabier Peck MD #[address] [address] PCP - General Family Medicine 06/22/20 01/16/24 Tad Mcintosh MD [address] [place] [address] PCP - General Family Medicine 01/17/24 Srikanth Adrian MD #[address] [address] Billing Adjudicator Cardiovascular Disease - Cardiology 02/02/22 08/06/24 Gloria Martinez MD #[address] [address] Consulting Physician Urology 04/30/24 documented as of this encounter
--- OUTSIDE RECORDS SUMMARY | 2025-03-24 15:00 | XMS_ITS | Encounter Summary ---
Author Organization [facility] Address [address] [facility] [place] [address] Phone Care Team Providers Care Inbound Customer Service Agent Name Role Phone Jabier Peck MD Primary Care Provider + [phone] Srikanth Adrian MD Unavailable Tad Romero MD Primary Care Provider [phone] Gloria Martinez MD Unavailable [phone] Reason for Visit * Reason Comments Medication Refill Encounter Details Date Type Department Care Team ([facility] st Contact Info) Description 08/[facility]20[facility] [address] [place] [phone] Jt Morillo MD [address] [place] [address] Medication Refill Social History Tobacco Use Types [...] Gender Identity Male 05/03/2023 12:44 PM 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 No / Unsure 08/21/2022 12:53 PM OIL AND GAS FIELD TECHNICIAN documented as of this encounter Miscellaneous Notes * Telephone Encounter - Aisha Escamilla RN - 08/21/2022 12:02 PM CST Approved Eliquis per last f/u note. AND GAS FIELD TECHNICIAN documented in this encounter Plan [...] documented as of this encounter Care Teams Inbound Customer Service Agent Relationship Specialty Start Date End Date Jabier Peck MD #2 [facility] [address] [place] [address] PCP - General Family Medicine 06/22/20 01/16/24 Tad Mcintosh MD [address] [place] [address] PCP - General Family Medicine 01/17/24 Srikanth Adrian MD #2 [facility] [address] [place] [address] Sap Bw Architect Cardiovascular Disease - Cardiology 02/02/22 08/06/24 Gloria Martinez MD #2 [facility] [address] [place] [address] Consulting Physician Urology 04/30/24 documented as of this encounter
--- OUTSIDE RECORDS SUMMARY | 2025-03-24 15:00 | XMS_ITS | Encounter Summary ---
Author Organization [facility] Address [address] [facility] [place] [address] Phone Care Team Providers Care Icing Machine Operator Name Role Phone Jabier Peck MD Primary Care Provider + -[phone] Srikanth Adrian MD Unavailable Tad Romero MD Primary Care Provider [phone] Gloria Martinez MD Unavailable [phone] Encounter Details Date Type Department Care Team (Late st Contact Info) Description 01/04/2023 Telephone [facility] Medical/Surgical 3 Surge Waiver [address] [place] [address] Jabier Peck MD #[address] [address] Social History Tobacco Use Types Packs/Day Years [...] CDT Gender Identity Male 05/03/2023 12:44 PM CASING IN LINE FEEDER Sexual Orientation Lesbian or Wolff 05/03/2023 12 :44 PM CASING IN LINE FEEDER documented as of this encounter Miscellaneous Notes * Telephone Encounter - Jaiber Peck MD - 01/14/2023 1:40 PM CDT [...] documented as of this encounter Care Teams Icing Machine Operator Relationship Specialty Start Date End Date Jabier Peck MD #[address] [address] PCP - General Family Medicine 06/22/20 01/16/24 Tad Mcintosh MD [address] [place] [address] PCP - General Family Medicine 01/17/24 Srikanth Adrian MD #2 [facility] [address] [place] [address] Software Support Specialist Cardiovascular Disease - Cardiology 02/02/22 08/06/24 Gloria Martinez MD #2 [facility] [address] [place] [address] Consulting Physician Urology 04/30/24 documented as of this encounter
--- OUTSIDE RECORDS SUMMARY | 2025-03-24 15:00 | XMS_ITS | Encounter Summary ---
Author Organization [facility] Address [address] [facility] [place] [address] Phone Care Team Providers Care Pulley Mortiser Operator Name Role Phone Jabier Peck MD Primary Care Provider + -[phone] Srikanth Adrian MD Unavailable Tad Romero MD Primary Care Provider [phone] Gloria Martinez MD Unavailable [phone] Reason for Visit * Reason Comments Medication Refill Encounter Details Date Type Department Care Team (Late st Contact Info) Description 10/24/2022 Refill [facility] #2 [place] [address] Jabier Peck MD #[address] [address] Medication Refill Social History Tobacco Use Types [...] Gender Identity Male 05/03/2023 12:44 PM SUPERVISOR MAINTENANCE Sexual Orientation Lesbian or Wolff 05/03/2023 12 :44 PM SUPERVISOR MAINTENANCE documented as of this encounter Miscellaneous Notes [...] documented as of this encounter Care Teams Pulley Mortiser Operator Relationship Specialty Start Date End Date Jabier Peck MD #2 [facility] [address] [place] [address] PCP - General Family Medicine 06/22/20 01/16/24 Tad Mcintosh MD [address] [place] [address] PCP - General Family Medicine 01/17/24 Srikanth Adrian MD #2 [facility] [address] [place] [address] Food Service Technician Cardiovascular Disease - Cardiology 02/02/22 08/06/24 Gloria Martinez MD #2 [facility] [address] [place] [address] Consulting Physician Urology 04/30/24 documented as of this encounter
--- OUTSIDE RECORDS SUMMARY | 2025-03-24 15:00 | XMS_ITS | Encounter Summary ---
Author Organization [facility] Address [address] [facility] [place] [address] Phone Care Team Providers Care Suction Drum Drier Operator Name Role Phone Jabier Peck MD Primary Care Provider + [phone] Srikanth Adrian MD Unavailable Tad Romero MD Primary Care Provider [phone] Gloria Martinez MD Unavailable [phone] Reason for Visit * Reason Comments Medication Refill Encounter Details Date Type Department Care Team (Late st Contact Info) Description 07/10/2022 Refill [facility] #2 [place] [address] Jabier Peck MD #[address] [address] Medication Refill Social History Tobacco Use Types [...] CDT Gender Identity Male 05/03/2023 12:44 PM MONEY ROOM TELLER Sexual Orientation Lesbian or Wolff 05/03/2023 12 :44 PM MONEY ROOM TELLER documented as of this encounter Miscellaneous Notes * Telephone Encounter - Anjali Hartley RN - 07/10/2022 12:34 PM MONEY ROOM TELLER Refill requested too soon. Y ROOM TELLER documented in this encounter Plan of Treatment Not on file documented as of this encounter Visit Diagnoses Not on filedocumented in this encounter Additional Health Concerns Infection Onset Date Last Indicated Resolved Time Respiratory Rule Out - RPA 02/26/2023 02/26/2023 0 02/26/2023 11:31 AM CDT COVID - 19 02/26/2023 02/26/2023 03/08/2023 12:1 6 AM CDT documented as of this encounter Care Teams Suction Drum Drier Operator Relationship Specialty Start Date End Date Jabier Peck MD #[address] [address] PCP - General Family Medicine 06/22/20 01/16/24 Tad Mcintosh MD [address] [place] [address] PCP - General Family Medicine 01/17/24 Srikanth Adrian MD #2 [facility] [address] [place] [address] Music Publicist Cardiovascular Disease - Cardiology 02/02/22 08/06/24 Gloria Martinez MD #[address] [address] Consulting Physician Urology 04/30/24 documented as of this encounter
--- OUTSIDE RECORDS SUMMARY | 2025-03-24 15:00 | XMS_ITS | Encounter Summary ---
Author Organization [facility] Address [address] [place] [address] Phone Care Team Providers Care Mat Packer Name Role Phone Jabier Peck MD Primary Care Provider + -[phone] Srikanth Adrian MD Unavailable Tad Romero MD Primary Care Provider [phone] Gloria Martinez MD Unavailable [phone] Reason for Visit * Reason Onset Date Comments Medication Refill Requesting new referral to [facility] 11/10/2022 Encounter Details Date Type Department Care Team (Late st Contact Info) Description 11/10/2022 Refill [facility] #2 [place] [address] Jabier Peck MD #[address] [address] Medication Refill; Requesting new referral to [facility] Social History Tobacco Use Types Packs/Day Years [...] CDT Gender Identity Male 05/03/2023 12:44 PM TAXI DANCER Sexual Orientation Lesbian or Wolff 05/03/2023 12 :44 PM TAXI DANCER documented as of this encounter Miscellaneous Notes * Telephone Encounter - Nikky Irby - 11/10/2022 1:42 PM CDT C: Tae [place] is requesting a new referral to [facility]. . Please call Tae (relationship to patient [...] [place] 12/13/21 Telemedicine Kishore Prieto APRN, RICHARD [facility] Juvenal Showing recent [...] RICHARD [place] 12/13/21 Telemedicine Kishore Prieto APRN, HOUSECLEANER [facility] Juvenal Showing recent [...] documented as of this encounter Care Teams Mat Packer Relationship Specialty Start Date End Date Jabier Peck MD #2 [facility] [address] [place] [address] PCP - General Family Medicine 06/22/20 01/16/24 Tad Mcintosh MD [address] [place] [address] PCP - General Family Medicine 01/17/24 Srikanth Adrian MD #2 [facility] [address] [place] [address] Fruit Distributor Cardiovascular Disease - Cardiology 02/02/22 08/06/24 Gloria Martinez MD #2 [facility] [address] [place] [address] Consulting Physician Urology 04/30/24 documented as of this encounter
--- OUTSIDE RECORDS SUMMARY | 2025-03-24 15:00 | XMS_ITS | Encounter Summary ---
Author Organization [facility] Address [address] [facility] [place] [address] Phone Care Team Providers Care Artificial Foliage Arranger Name Role Phone Jabier Peck MD Primary Care Provider [phone] Srikanth Adrian MD Unavailable Tad Romero MD Primary Care Provider [phone] Gloria Martinez MD Unavailable [phone] Reason for Visit * Reason Onset Date Comments Advice Only 12/18/2022 Encounter Details Date Type Department Care Team (Late st Contact Info) Description 12/18/2022 Telephone [facility] [address] [place] [address] Jabier Peck MD #[address] [address] Advice Only Social History Tobacco Use Types [...] CDT Gender Identity Male 05/03/2023 12:44 PM REGULATORY SPECIALIST Sexual Orientation Lesbian or Wolff 05/03/2023 12 :44 PM REGULATORY SPECIALIST documented as of this encounter Miscellaneous [...] documented as of this encounter Care Teams Artificial Foliage Arranger Relationship Specialty Start Date End Date Jabier Peck MD #[address] [facility] [address] [address] PCP - General Family Medicine 06/22/20 01/16/24 Tad Mcintosh MD [address] [place] [address] PCP - General Family Medicine 01/17/24 Srikanth Adrian MD #2 [facility] [address] [place] [address] Computer Systems Administrator Cardiovascular Disease - Cardiology 02/02/22 08/06/24 Gloria Martinez MD #2 [facility] [address] [place] [address] Consulting Physician Urology 04/30/24 documented as of this encounter
--- OUTSIDE RECORDS SUMMARY | 2025-03-24 15:00 | XMS_ITS | Clinical Summary ---
Author Organization [facility] Address [address] [place] [address] Care Team Providers Care Stand Up Comedian Name Role Phone Tad Mcintosh DO Primary [...] 07/17/2024 Assessment & Plan (07/17/2024 1:09 PM PLATE EMBOSSER): Continue increased hydration Avoid acidic foods and fluids for one more week Thrombophilia 01/25/2023 Palpitations 11/22/2022 Chest pain 07/31/2022 Essential hypertension 07/31/2022 Tongue lesion 04/28/2020 Assessment & Plan (06/26/2024 9:29 AM PLATE EMBOSSER): Has pain medication prescribed by Manasa Cortes at [facility] will confirm use of Ramsey after surgery Stop Eliquis for 5 days before and after Excision of left lateral and right lateral tongue lesions with repair Risks and complications: Anesthesia, bleeding, infection, benign versus malignant pathology, recurrence of lesion, injury to arteries, nerves and veins, scarring and need for further treatment Assessment & Plan (04/28/2020 1:41 PM PLATE EMBOSSER): Speak to [facility] about smoothing out right first [...] week Assessment & Plan (04/28/2020 1:41 PM PLATE EMBOSSER): Speak to [facility] about smoothing out right first [...] (04/18/2019): Added automatically from request for surgery [id number] Hematochezia 03/04/2019 Overview (03/04/2019): Added automatically from request for surgery [id number] Family history of colon cancer 03/04/2019 Overview (03/04/2019): Added automatically from request for surgery [id number] 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 Abingdon level is in process. Will hold at [...] recommended Assessment & Plan (07/08/2019 3:43 PM PLATE EMBOSSER): Healthy, low carbohydrate lifestyle and exercise for [...] hydration Assessment & Plan (08/10/2017 1:23 PM PLATE EMBOSSER): s/p Right inferior parathyroidectomy - 08/10/2016 pre [...] renal Assessment & Plan (05/01/2017 10:36 PM PLATE EMBOSSER): s/p Right inferior parathyroidectomy - 08/10/2016 pre [...] future Assessment & Plan (08/10/2017 1:24 PM PLATE EMBOSSER): Recheck levels Assessment & Plan (12/17/2016 8:01 AM CDT): Recheck levels Type 2 diabetes mellitus wit h stage 3 chronic kidney disease, with long-term current use of insulin 12/11/2016 Assessment & Plan (07/08/2019 3:42 PM PLATE EMBOSSER): A1c 5.5% Jun 2019 on no medications. [...] needed. Assessment & Plan (08/10/2017 1:26 PM PLATE EMBOSSER): - A1c today 5.5 % - due [...] months. Assessment & Plan (05/01/2017 10:36 PM PLATE EMBOSSER): - reviewed BS log - BS well [...] statin. 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 Director Marketing referral placed. Class 2 severe obesity due t o excess calories with serious comorbidity and body mass index (BMI) of 37.0 to 37.9 in adult 08/16/2012 Overview (09/22/2016): Obesity Assessment & Plan (12/25/2019 1:57 PM CDT): Healthy, low carbohydrate lifestyle and exercise for 150min/week recommended Referral for assurance specialist placed. Assessment & Plan (10/16/2019 11:40 AM [...] greens, fat-free milk, cottage cheese, nuts like [id number], protein bars with 10-15 g of protein [...] discussed. Assessment & Plan (05/01/2017 10:37 PM PLATE EMBOSSER): Obesity is improving with treatment. Discussed the [...] time. Assessment & Plan (05/01/2017 10:37 PM PLATE EMBOSSER): Hypertension is improving with treatment. Continue current [...] History Date Comments Hypertension Hypertension Chronic obstructive pulmonary disease COPD Depression Depression Hyperlipidemia Hyperlipidemia Anxiety disorder Anxiety Anemia Anemia Asthma Asthma; Comments : SAB 06/01/2014 - Bipolar affective disorder (HCC) Bipolar illness; Comments: SAB 06/01/2014 - Hx Other Medical 10/05/2015 UVP3 Tonsillect radha, Bilateral partial turbinate re; Comments: EMB 11/26/2015 - Sciatica Diabetes mellitus Hypoglycemic Psoriasis CKD (chronic kidney disease) stage 3, GFR 30-59 ml/min ([facility]) Abingdon poisoning Headache, tension-type Sleep apnea patient had Uvul a and T&A and the helped GERD (gastroesophageal reflu x disease) Irritable bowel syndrome Diverticulitis of colon Cerebrovascular accident (CVA) (HCC) Cerebrovascular accident Cerebrovascular accident (CVA) (HCC) Stroke Obesity Pulmonary embolism 12/15/2019 Awareness under anesthesia radha allen states he wakes up every time when given twilight anesthesia medication Emphysema lung Lupus anticoagulant disorder Family History Medical History Relation Name Comments Colon cancer Brother Cancer, colon; Colon cancer Mother Cancer -colon; Stroke Sister Stroke; Relation Name Status Comments Brother Father Mother Sister Social History Tobacco Use Types Packs/Day Years Used Date Smoking Tobacco: Every Day Cigarettes 0.3 43.8 Started: 06/18/1981 Smokeless Tobacco: Never Tobacco Cessation:Ready [...] on file Legal Sex Male 5:22 PM PLATE EMBOSSER Gender Identity Not on file Sexual Orientation Not on file Obstetrics History Last Filed Vital Signs Vital Sign Reading Time Taken Comments Blood Pressure 136/84 07/10/2024 4:54 PM PLATE EMBOSSER Pulse 62 07/10/2024 4:54 PM PLATE EMBOSSER Temperature 36.4 C (97.5 F) 07/10/2024 4:54 PM PLATE EMBOSSER Respiratory Rate 16 07/10/2024 4:54 PM PLATE EMBOSSER Oxygen Saturation 97% 07/10/2024 4:54 PM PLATE EMBOSSER Inhaled Oxygen Concentration - - Weight 105.8 kg (233 lb 4 oz) 07/10/2024 10:09 A M PLATE EMBOSSER Height 175.3 cm (5' 9) 07/10/2024 10:09 AM PLATE EMBOSSER Body Mass Index 34.44 07/10/2024 10:09 AM PLATE EMBOSSER Plan of Treatment Health Maintenance Due Date [...] (2 of 2 - PCV) 06/22/2021 06/22/2020 eGFR 04/19/2024 04/19/2023, 09/17, 12/30/2019, Additional history exists Lipid Panel 06/20/2024 06/20/2023, 02/16, 08/21/2022, Additional history exists Covid-19 Vaccine (3 - 2024-2 6 season) 2025 09/11/2020, 08/21/2020 Influenza Vaccine (#1) 2025 3, 02/24/2022, 08/01/2021, Additional history exists DTaP/Tdap/Td Vaccine (2 - Td or Tdap) 02/26/2029 02/26/2019 Medical Devices Implanted Type Area Grounds Foreman Device Identifier Shelf Expiration Date Model / Serial / Lot [employer]ob Angio-Seal Vip 6fr Closere Device [id number] - [id number] Implanted:Qty: 1 on 10/12/2022 by Eliel Ortiz MD at [facility] Other - see comments [employer] Kalin 03/17/2023 [id number] / / [id number] [employer] [id number] 4mm 44mm Compression Headless Foot Ankle Screw Bone - [id number] Implanted:Qty: 1 on 04/25/2019 by Chidi Rios DPM at [facility] Right: Toes [employer] [id number] / / [employer] [place] Ezm -10 Easyclip Si 2mm [id number] Monocortical Superelastic Reamer - [id number] Implanted:Qty: 1 on 04/25/2019 by Chidi Rios DPM at [facility] Right: Toes [employer] [place] 11/16/2023 EZM 10-10-10 / / [id number] [employer] [place] Ezm 1010-10 Easyclip Si 2mm [id number] Monocortical Superelastic Reamer - [id number] Implanted:Qty: 1 on 04/25/2019 by Chidi Rios DPM at [facility] Right: Toes [employer] [place] 11/16/2023 EZM 1010-10 / / [id number] Toe Tac Xpress Hammertoe Fixation System Implanted:Qty: 2 on 04/25/2019 by Chidi Rios DPM at [facility] Right: Toes [employer] [id number] 05/27/2021 -[id number] / [id number] / [id number] [employer] Implanted:Qty: 1 on 04/25/2019 by Chidi Rios DPM at [facility] Right: Toes [employer] 07/18/2028 [id number] / / [id number] Procedures Procedure Name Priority Date/Time Associated Diagnosis Comments EGFR STAT 04/19/2023 3:53 PM CDT HEMOGLOBIN A1C Routine 12/13/2019 2:55 PM CDT LIPID PANEL Routine 05/17/2018 2:25 PM PLATE EMBOSSER Type 2 diabetes mellitus with hyperglycemia, with long-term current use of insulin (HCC) from Last 3 Months or Most Recently Relevant to Health Maintenance Results * eGFR (04/19/2023 3:53 PM CDT) eGFR 51 mL/min/1. 73 m2 JANU[facility] CLAY (EVER) Comment: Interpretive Data Reference Interval Normal >/= [...] BLOOD ORDERABLE S Final Result JANUARY CLAY (RANDOLPH) [facility] [place] [address] * (ABNORMAL) Hemoglobin A1c (12/13/2019 2:55 PM CDT) Blood specimen (specimen) 12/13/2019 2:55 PM CDT Narrative [facility] - 12/13/2019 2:55 PM CDT Results in labs Historical Provider LAB BLOOD ORDERABLES Becky l Result [place], [place] [phone] * (ABNORMAL) Lipid panel (05/17/2018 2:25 PM PLATE EMBOSSER) Cholesterol 159 30 - 199 mg/dL JANUARY [...] 2018. Triglycerides 143 <=149 mg/dL JANUARY CLAY (EVER) Comment: Interpretive Data [...] (EVER) Blood specimen (specimen) 05/17/2018 2:25 PM PLATE EMBOSSER 05/17/2018 5:15 PM PLATE EMBOSSER Narrative JANUARY OBED (EVER) - 05/17/2018 6:14 PM PLATE EMBOSSER Tori Sims MD LAB BLOOD ORDERABLE S Final Result JANUARY C[facility] (EVER) 1 [facility] [place] [address] from Last 3 Months or Most Recently Relevant to Health Maintenance Insurance IDPA [facility] MEDICARE ADVANTAGE MEDICARE [facility] MEDICARE ADVANTAGE [facility] MEDICARE Address[facility] [address] [place] [address] [facility] MEDICARE ADVANTAGE [facility] MEDICARE Address: [address] [place] [id number] [place] [address] [facility] MEDICARE ADVANTAGE [facility] MEDICARE Address: [address] [address] [place] [address] Advance Directives For more information, please contact: [phone] * Full Code (Latest Code Status on File) Date Activated Date Inactivated Comments 10/12/2022 2:12 PM 10/12/2022 10:46 PM * Full Code Date Activated Date Inactivated Comments 09/24/2017 9:04 PM 09/30/2017 5:22 PM Care Teams Stand Up Comedian Relationship Specialty Start Date End Date Tad Mcintosh DO [address] [place] [address] PCP - General Family Medicine 06/26/24
--- OUTSIDE RECORDS SUMMARY | 2025-03-24 15:00 | XMS_ITS | Encounter Summary ---
Author Organization [facility] Address [address] [facility] [place] [address] Phone Care Team Providers Care Manager Animal Name Role Phone Jabier Peck MD Primary Care Provider + [phone] Srikanth Adrian MD Unavailable Tad Romero MD Primary Care Provider [phone] Gloria Martinez MD Unavailable [phone] Reason for Visit * Reason Comments Medication Refill Encounter Details Date Type Department Care Team (Late st Contact Info) Description 08/30/2022 Refill [facility] #2 [place] [address] Jabier Peck MD #[address] [address] Medication Refill Social History Tobacco Use Types [...] CDT Gender Identity Male 05/03/2023 12:44 PM DANCE MASTER Sexual Orientation Lesbian or Wolff 05/03/2023 12 :44 PM DANCE MASTER COVID-19 Exposure Response Date Recorded In the last 10 days, have yo u been in contact with someone who was confirmed or suspected to have Coronavirus/COVID-19? No / Unsure 08/21/2022 12:53 PM DANCE MASTER documented as of this encounter Miscellaneous Notes [...] as of this encounter Care Teams Manager Animal Relationship Specialty Start Date End Date Jabier Peck MD #2 [facility] [address] [place] [address] PCP - General Family Medicine 06/22/20 01/16/24 Tad Mcintosh MD [address] [place] [address] PCP - General Family Medicine 01/17/24 Srikanth Adrian MD #2 [facility] [address] [place] [address] [place] Cardiovascular Disease - Cardiology 02/02/22 08/06/24 Gloria Martinez MD #2 [facility] [address] [place] [address] Consulting Physician Urology 04/30/24 documented as of this encounter
== END 2025-03-24 14:05 | disposition home or self-care (01) ==
LOC: CHSLAB 14:04
PROVIDERS: PCP Family Medicine; Visit Provider Nurse Practitioner Family
DX: R53.82 Chronic fatigue, unspecified (principal); E11.9 Type 2 diabetes mellitus without complications
CPT/HCPCS: 36415; 80053; 83036; 85025

== ENCOUNTER 2025-05-06 14:32 | Outpatient (CLI) | payer MEDICARE, SELFPAY ==
--- NOTE | 2025-05-06 | CY_PTH ---
PATIENT: Tae Kent Jr. LOC: [facility] U#:[id number] AGE/SX: 55/M ROOM: RE05/06/[address]: Tad Mcintosh DO : 1970 BED: DIS: 05/06/2025 SPEC #: [id number] RECD: 05/07/25 08:01 STATUS: VERONIQUE REQ #: [id number] SHAAN: 05/06/25 00:[address]: Tad Mcintosh DEPT: [facility] Cytology RECD BY: Jeanne Blanco MLT, (ASCP) ENTERED: 05/07/25 08:02 SP TYPE: Cytology OTHR DR: Tonja Sr APRN Procedures: Crystalline Analysis
[2025-05-06 15:47] LABS: HIV 1 P24 AG Negative (Negative); HIV 1/2 AB Negative (Negative)
--- OUTSIDE RECORDS SUMMARY | 2025-05-06 22:17 | XMS_ITS | Data Portability ---
Author Organization [place] - [facility] [place] [facility] Address [address] [place] [address] Care Team Providers Care Adjunct Professor Of English Name Role Phone [facility] OTHER Assessment Encounter Date Assessment Date [...] By Organization Details Last Modified Time 11/18/2019 [id number] Recommend seeing neurologist of his choice or [...] week abalettie Not available 11/18/2019 14:02:44 11/25/2019 [id number] Recommend, he would like to persue and discussed bilateral hammer toe surgery (arthrodesis B2,3,4 and arthroplasty B5). Likely ulcer will reoccur wo it. dc buttress. use cotton ball under the toe and continue maryuri/cotton/paper tape to the ulcer. Has improved nicely. get xrays L foot next visit. fu 1 wk ok to schedule surgery prn abalettie Not available 11/25/2019 15:25:12 12/02/2019 [id number] He said he is going to look into a lawsuit against his previous surgeon and asked me if I would talk to him, but he cannot remember his name and will have the production control coordinating clerk call us for an appointment if needed. He has not gotten blood work done yet debrided ulcer, continue cotton under the toe too to offload, toe pads made it hurt more xray taken 1 view L foot to review hammer toes on that side. nc fu 2 wk for preop and wound care. abalettie Not available 12/02/2019 16:48:53 01/05/2020 [id number] has not fu in a month was [...] wk abalettie Not available 01/06/2020 10:34:37 01/13/2020 [id number] He has pain and his ulcer is not healing he has not gotten blood work done to look at his healing factors I would like to refer him to a wound care center of his choice. He knows of one in [place], [place] that he would like to go [...] Address Organization Details Recorded Time 01/13/20 20 21267 Ulcer Debridement completed [facility] 01/13/2020 17:44:57 01/05/20 20 [id number] Ulcer Debridement completed [facility] 01/06/2020 10:31:49 12/02/19 20 77209 Ulcer Debridement completed [facility] 12/02/2019 16:46:21 11/25/19 20 10719 Ulcer Debridement completed [facility] 11/25/2019 15:20:30 11/25/19 20 21771 Est. 20-29 min completed [facility] 11/25/2019 15:20:12 11/18/19 20 34495 X-rays 3v Feet Normal completed [facility] 11/18/2019 13:56:31 11/18/19 20 09716 Ulcer Debridement completed [facility] 11/18/2019 13:53:44 11/18/19 20 [id number]-- SAND PLANT ATTENDANT H&P Exam 30-44 minutes completed [facility] 11/18/2019 13:53:28 Tonsillectomy completed MORGAN BURGER [facility] 11/18/2019 12:23:22 Foot Surgery completed [facility] 11/18/2019 13:21:53 hammer toe operation completed Michelle Spangler [facility] 11/18/2019 13:22:01 Imaging Results None recorded. Procedure Notes None recorded. Medical Equipment None Reported. Allergies Allergen ID Allergen Name Allergen Category Reaction Reaction Severity Criticality Documentation Date Start Date Code Code System Note Provider Name and Address Organization Details Recorded Time 36222 acetamino phen / hydrocodo ne medicatio n Not available Not available Not available 11/25/2019 42370 2 RxNorm addic tion, abuse r Michelle Spangler [facility] 0 12:16:29 Medications Name Sig Start [...] Available Not Available [facility] completed Not Available Not Available Not [...] Updated DateTime 11/18/2019 177.8 cm 37.3 kg/m2 954279.02 g MORGAN LOUISE - [facility] 11/18/2019 12:14:42 Date Recorded Body height Provider Name an d Address Organization Details Last Updated DateTime 11/25/2019 177.8 cm Paola Dockery [place] [facility] 11/25/2019 14:25:49 Date Recorded Body height Provider Name an d Address Organization Details Last Updated DateTime 12/02/2019 177.8 cm Paola Dockery [place] [facility] 12/02/2019 14:39:43 Date Recorded Body height Provider Name an d Address Organization Details Last Updated DateTime 01/05/2020 177.8 cm Paola Dockery [place] [facility] 01/05/2020 16:38:31 Date Recorded Body height Provider Name an d Address Organization Details Last Updated DateTime 01/13/2020 177.8 cm Paola Dockery [place] [facility] 01/13/2020 16:40:34 Social History Question Answer Notes LastModified by Organizat ion Details LastModified Time Tobacco Smoking Status Former Smoker MORGAN BURGER [facility] [place] - [facility] 11/18/2019 12:22:45 Quit Smoking How Many Years [...] Neurologic Disease Y Sciatica N Heart Attack (RI) N Diabetes Y Urinary Tract Infections N [...] Diagnosis SNOMED-CT Code Diagnosis ICD10 Code Diagnosis IMO Codes Diagnosis Note [id number] EUN Keith [address] [place] [address] 11/18/2019 12:00:36 11/18/2019 13:10:53 Disorder of nervous system due to type 2 diabetes mellitus 294210735 E11.49 Diabetic foot ulcer 3710 87534 E13.621 Hammer toe 311757115 M20 .41 M20.42 Amputated big toe 880965 007 Z89.411 Pain in right foot 15628 75355 55148 M79.671 Pain in left foot 220552 6178 24813 M79.672 Ulcer of toe 599202028 L 97.518 [id number] EUN Keith [address] [place] [address] 11/25/2019 14:24:18 11/25/2019 14:52:22 Disorder of nervous system due to type 2 diabetes mellitus 959834344 E11.49 Diabetic foot ulcer 3710 68634 E13.621 Hammer toe 663462280 M20 .41 M20.42 Amputated big toe 279354 007 Z89.411 Pain in right foot 26278 17574 55236 M79.671 Pain in left foot 278974 2540 27435 M79.672 Ulcer of toe 161413907 L 97.518 [id number] EUN Keith [address] [place] [address] 12/02/2019 14:37:47 12/02/2019 14:56:40 Disorder of nervous system due to type 2 diabetes mellitus 756355237 E11.49 Diabetic foot ulcer 3710 17662 E13.621 Ulcer of toe 271476404 L 97.518 [id number] Michelle Spangler DPM EAKLY [address] [place] [address] 01/05/2020 16:35:48 01/05/2020 16:52:28 Disorder of nervous system due to type 2 diabetes mellitus 567614198 E11.49 Diabetic foot ulcer 3710 29804 E13.621 Ulcer of toe 320874435 L 97.518 [id number] Michelle Spangler DPM [facility] [address] [place] [address] 01/13/2020 16:24:56 01/13/2020 16:59:22 Disorder of nervous system due to type 2 diabetes mellitus 983909079 E11.49 Diabetic foot ulcer 3710 34197 E13.621 Ulcer of toe 211303777 L 97.518 Health Concerns Section Related Observation LastModified by Organization Detai ls LastModified Time None Recorded Concern Status LastModified by Organization Details LastModified Time None Recorded Advance Directives Directive None Recorded Payers Insurance Date Sequence Insurance Name Policy Number Policy Bailey Covered Member ID Bailey Member ID Guarantor Name 01/10/2020 1 [facility] (MEDICARE REPLACEMENT/A DVANTAGE - PPO) [id number] Tae Kent [id number] Tae Kent Notes Date Note Type Note Provider Name and Address Organization Details Recorded Time 11/18/2019 text/html [place]/ Call[place] / UlcersReported by PatientATHENA HPIFor location, patient reportsright: second toe (really hurts; the l2 hurts but to a lesser degree. has neuropathy of hands and feet. has not been in pain mgmt but has had an opiod addiction.)(r foot remains swollen.). For quality, patient reportsaching,throbbin g,sharp (stabbing feeling), andworsening. For current severity, patient reportsmoderate. For duration, patient months. For onset/timing, patient reportsabrupt onset (surgery [...] goes up to over 200mg/dL. Michelle tobias [facility] 11/18/2019 14:04:56 11/25/2019 text/html [place]/ Callus / UlcersReported by PatientATHENA HPIFor location, patient reportsright: second toe (really hurts; the l2 hurts but to a lesser degree). For quality, patient reportsaching,throbbin g,sharp (stabbing feeling), andimproving. For current severity, patient reportsmoderate. For duration, patient upduslh16 months. For onset/timing, patient reportsabrupt onset (surgery [...] at amputation of R 1 Michelle tobias [facility] 11/25/2019 15:25:37 12/02/2019 text/html [place]/ Callus / UlcersReported by PatientATHENA HPIFor location, patient reportsright: second toe (and all the other toes hurt.). For quality, patient reportsaching,throbbin g,sharp (stabbing feeling), andimproving. For current severity, patient reportsmoderate. For duration, patient [id number] months. For onset/timing, patient reportsabrupt onset (surgery [...] at [facility]putation of R 1 [facility] 12/02/2019 16:49:41 01/05/2020 text/html [place]/ Callus / UlcersReported by PatientATHENA HPIFor location, patient reportsright: second toe (burning). For quality, patient reportsunchanged. For current severity, patient reportsmild. For duration, patient [id number] months. For onset/timing, patient reportsabrupt onset (surgery [...] 2 and tender DANI Drake - [facility] 01/06/2020 10:34:57 01/13/2020 text/html [place]/ Callus / UlcersReported by PatientATHENA HPIFor location, patient reportsright: second toe (burning). For quality, patient reportsunchanged. For current severity, patient reportsmild. For duration, patient [id number] months. For onset/timing, patient reportsabrupt onset (surgery [...] R 2 and tender DANI Drake [facility] 01/13/2020 17:48:34
--- OUTSIDE RECORDS SUMMARY | 2025-05-06 22:18 | XMS_ITS | Encounter Summary ---
Author Organization [facility] Address [address] [place] [address] Phone Care Team Providers Care Janitor And Cleaner Name Role Phone Jabier Peck MD Primary Care Provider [phone] Srikanth Adrian MD Unavailable Tad Romero MD Primary Care Provider [phone] Gloria Martinez MD Unavailable [phone] Reason for Visit * Reason Onset Date Comments Medication Refill 10/27/2021 Encounter Details Date Type Department Care Team (Late st Contact Info) Description 10/27/2021 Refill [facility] [address] [place] [address] Jabier Peck MD #[address] [address] Medication Refill Social History Tobacco Use Types [...] Gender Identity Male 05/03/2023 12:44 PM MANAGER CATH LAB Sexual Orientation Lesbian or Wolff 05/03/2023 12 :44 PM MANAGER CATH LAB documented as of this encounter Miscellaneous Notes [...] 11/16/20 Office Visit Kishore Prieto APRN, R[place] [place] [...] physician/MARVA review. Refill encounter routed to nurse Nathanscript's pool for processing. documented in this encounter Plan of Treatment Upcoming Encounters Date Type Department Care Team (Late st Contact Info) Description 07/14/2025 1:30 PM MANAGER CATH LAB [facility] [address] [place] [address] Aria Delong, SECURITY AND COMPLIANCE PROJECT MANAGER, LOGISTICS MANAGER [address] [place] [address] documented as of this encounter Visit Diagnoses Not on filedocumented in this encounter Additional Health Concerns Infection Onset Date Last Indicated Resolved Time COVID - 19 Confirmed 05/31/2022 05/31/2022 023 12:16 AM MANAGER CATH LAB Respiratory Rule Out - RPA 02/26/2023 02/26/2023 0 02/26/2023 11:31 AM CDT COVID - 19 02/26/2023 02/26/2023 03/08/2023 12:1 6 AM CDT documented as of this encounter Care Teams Janitor And Cleaner Relationship Specialty Start Date End Date Jabier Peck MD #2 [facility] [address] [place] [address] PCP - General Family Medicine 06/22/20 01/16/24 Tad Mcintosh MD [address] [place] [address] PCP - General Family Medicine 01/17/24 Srikanth Adrian MD #2 [facility] [address] [place] [address] Leveler Helper Cardiovascular Disease - Cardiology 02/02/22 08/06/24 Gloria Martinez MD #2 [facility] [address] [place] [address] Consulting Physician Urology 04/30/24 documented as of this encounter
--- OUTSIDE RECORDS SUMMARY | 2025-05-06 22:18 | XMS_ITS | Encounter Summary ---
Author Organization [facility] Address [address] [place] [address] Phone Care Team Providers Care Caramel Cutter Machine Name Role Phone Jabier Peck MD Primary Care Provider [phone] Srikanth Adrian MD Unavailable Tad Romero MD Primary Care Provider [phone] Gloria Martinez MD Unavailable [phone] Reason for Visit * Reason Comments Medication Refill Encounter Details Date Type Department Care Team (Late st Contact Info) Description 09/22/2021 Refill [facility] [address] [place] [address] Jabier Peck MD #[address] [address] Medication Refill Social History Tobacco Use Types [...] CDT Gender Identity Male 05/03/2023 12:44 PM CERTIFIED DRUG COUNSELOR Sexual Orientation Lesbian or Wolff 05/03/2023 12 :44 PM CERTIFIED DRUG COUNSELOR COVID-19 Exposure Response Date Recorded In [...] Type Provider Dept 08/01/21 Office Visit Jabier Pekc MD [facility] 04/29/21 Office Visit Jabier Peck MD [facility] 03/16/21 Office Visit Kishore Prieto APRN, RICHARD [facility] 11/16/20 Office Visit Kishore Prieto APRN, RICHARD [facility] 10/20/20 Office Visit Jabier Peck MD [facility] Showing recent visits within past 365 days and meeting all other requirements Future Appointments Date Type Provider Dept 09/27/21 Appointment Kishore Prieto APRN, HIDES SOAKER [facility] 10/31/21 Appointment Jabier Peck MD [facility] Showing future appointments within next 90 days and meeting all other requirements documented in this encounter Plan of Treatment Upcoming Encounters Date Type Department Care Team (Late st Contact Info) Description 07/14/2025 1:30 PM CERTIFIED DRUG COUNSELOR Office Visit [facility] - Neurology - [place] [address] [place] [address] Aria Delong, PIECE DYER, DISINTEGRATOR OPERATOR [address] [place] [address] documented as of this encounter Visit Diagnoses Diagnosis Cervical radiculopathy Brachial neuritis or radiculitis nos documented in this encounter Additional Health Concerns Infection Onset Date Last Indicated Resolved Time COVID - 19 Confirmed 05/31/2022 05/31/2022 023 12:16 AM CERTIFIED DRUG COUNSELOR Respiratory Rule Out - RPA 02/26/2023 02/26/2023 0 02/26/2023 11:31 AM CDT COVID - 19 02/26/2023 02/26/2023 03/08/2023 12:1 6 AM CDT documented as of this encounter Care Teams Caramel Cutter Machine Relationship Specialty Start Date End Date Jabier Peck MD #[address] [address] PCP - General Family Medicine 06/22/20 01/16/24 Tad Mcintosh MD [address] [place] [address] PCP - General Family Medicine 01/17/24 Srikanth Adrian MD #2 [facility] [address] [place] [address] Pastry Cook Cardiovascular Disease - Cardiology 02/02/22 08/06/24 Gloria Martinez MD #2 [facility] [address] [place] [address] Consulting Physician Urology 04/30/24 documented as of this encounter
--- OUTSIDE RECORDS SUMMARY | 2025-05-06 22:18 | XMS_ITS | Encounter Summary ---
Author Organization [facility] Address [address] [place] [address] Phone Care Team Providers Care Cloth Sponger Name Role Phone Jabier Peck MD Primary Care Provider [phone] Srikanth Adrian MD Unavailable Tad Romero MD Primary Care Provider [phone] Gloria Martinez MD Unavailable [phone] Reason for Visit * Reason Comments Medication Refill Encounter Details Date Type Department Care Team (Late st Contact Info) Description 11/23/2021 Refill [facility] [address] [place] [address] Jabier Peck MD #[address] [address] Medication Refill Social History Tobacco Use Types [...] Gender Identity Male 05/03/2023 12:44 PM RN PROGRESSIVE CARE Sexual Orientation Lesbian or Wolff 05/03/2023 12 :44 PM RN PROGRESSIVE CARE documented as of this encounter Miscellaneous Notes [...] Dept 08/01/21 Office Visit Jabier Peck MD [facility] [place] 04/29/21 Office Visit Jabier Peck MD [facility] [place] 03/16/21 Office Visit Kishore Prieto APRN, SOLID WASTE COLLECTOR [facility] Showing recent visits within past 365 days and meeting all other requirements Future Appointments No visits were found meeting these conditions. Showing future appointments within next 90 days and meeting all other requirements documented in this encounter Plan of Treatment Upcoming Encounters Date Type Department Care Team (Late st Contact Info) Description 07/14/2025 1:30 PM RN PROGRESSIVE CARE Office Visit [facility] - Neurology - [place] [address] [place] [address] Aria Delong APRN, BROADCAST OPERATIONS DIRECTOR #[address] [place] [address] documented as of this encounter Visit Diagnoses Diagnosis Cervical radiculopathy Brachial neuritis or radiculitis nos documented in this encounter Additional Health Concerns Infection Onset Date Last Indicated Resolved Time COVID - 19 Confirmed 05/31/2022 05/31/2022 023 12:16 AM RN PROGRESSIVE CARE Respiratory Rule Out - RPA 02/26/2023 02/26/2023 0 02/26/2023 11:31 AM CDT COVID - 19 02/26/2023 02/26/2023 03/08/2023 12:1 6 AM CDT documented as of this encounter Care Teams Cloth Sponger Relationship Specialty Start Date End Date Jabier Peck MD #2 [facility] [address] [place] [address] PCP - General Family Medicine 06/22/20 01/16/24 Tad Mcintosh MD [address] [place] [address] PCP - General Family Medicine 01/17/24 Srikanth Adrian MD #2 [facility] [address] [place] [address] Payroll And Benefits Manager Cardiovascular Disease - Cardiology 02/02/22 08/06/24 Gloria Martinez MD #2 [facility] [address] [place] [address] Consulting Physician Urology 04/30/24 documented as of this encounter
--- OUTSIDE RECORDS SUMMARY | 2025-05-06 22:18 | XMS_ITS | Encounter Summary ---
Author Organization [facility] Address [address] [place] [address] Phone Care Team Providers Care Infusion Nurse Name Role Phone Jabier Peck MD Primary Care Provider [phone] Srikanth Adrian MD Unavailable Tad Romero MD Primary Care Provider [phone] Gloria Martinez MD Unavailable [phone] Reason for Visit * Reason Comments Medication Refill Encounter Details Date Type Department Care Team (Late st Contact Info) Description 10/21/2021 Refill [facility] #[address] [place] [address] Jabier Peck MD #[address] [address] Medication Refill Social History Tobacco Use Types [...] CDT Gender Identity Male 05/03/2023 12:44 PM PASTEURIZING MACHINE OPERATOR Sexual Orientation Lesbian or Wolff 05/03/2023 12 :44 PM PASTEURIZING MACHINE OPERATOR documented as of this encounter [...] [place] 03/16/21 Office Visit Kishore Prieto APRN, CNP [facility] 11/16/20 Office Visit Kishore Prieto APRN, RICHARD [facility] [place] Showing recent visits within past 365 days and meeting all other requirements Future Appointments Date Type Provider Dept 10/31/21 Appointment Jabier Peck MD [facility] Showing future appointments within next 90 days and meeting all other requirements documented in this encounter Plan of Treatment Upcoming Encounters Date Type Department Care Team (Late st Contact Info) Description 07/14/2025 1:30 PM PASTEURIZING MACHINE OPERATOR [facility] - [place] [address] [place] [address] Aria Delong APRN, MILK RECEIVER TANK TRUCK [address] [place] [address] documented as of this encounter Visit Diagnoses Diagnosis Cervical radiculopathy Brachial neuritis or radiculitis nos documented in this encounter Additional Health Concerns Infection Onset Date Last Indicated Resolved Time COVID - 19 Confirmed 05/31/2022 05/31/2022 023 12:16 AM PASTEURIZING MACHINE OPERATOR Respiratory Rule Out - RPA 02/26/2023 02/26/2023 0 02/26/2023 11:31 AM CDT COVID - 19 02/26/2023 02/26/2023 03/08/2023 12:1 6 AM CDT documented as of this encounter Care Teams Infusion Nurse Relationship Specialty Start Date End Date Jabier Peck MD #2 [facility] [address] [place] [address] PCP - General Family Medicine 06/22/20 01/16/24 Tad Mcintsoh MD [address] [place] [address] PCP - General Family Medicine 01/17/24 Srikanth Adrian MD #2 [facility] [address] [place] [address] Medical Technologist Prn Cardiovascular Disease - Cardiology 02/02/22 08/06/24 Gloria Martinez MD #2 [facility] [address] [place] [address] Consulting Physician Urology 04/30/24 documented as of this encounter
--- OUTSIDE RECORDS SUMMARY | 2025-05-06 22:18 | XMS_ITS | Encounter Summary ---
Author Organization [facility] Address [address] [place] [address] Phone Care Team Providers Care Mill Recorder Name Role Phone Jabier Peck MD Primary Care Provider [phone] Srikanth Adrian MD Unavailable Tad Romero MD Primary Care Provider [phone] Gloria Martinez MD Unavailable [phone] Reason for Visit * Reason Comments Medication Refill Encounter Details Date Type Department Care Team (Late st Contact Info) Description 08/19/2021 Refill [facility] #[address] [place] [address] Jabier Peck MD #[address] [address] Medication Refill Social History Tobacco Use Types [...] CDT Gender Identity Male 05/03/2023 12:44 PM ELECTRIC POWER SUPERINTENDENT Sexual Orientation Lesbian or Wolff 05/03/2023 12 :44 PM ELECTRIC POWER SUPERINTENDENT COVID-19 Exposure Response Date Recorded In the last month, have you been in contact with someone who was confirmed or suspected to have Coronavirus / COVID-19? No / Unsure 08/01/2021 1:35 PM ELECTRIC POWER SUPERINTENDENT documented as of this encounter Miscellaneous Notes [...] [place] 08/20/20 Telemedicine Kishore Prieto APRN, R[facility] [place] Showing recent visits within past 365 days and meeting all other requirements Future Appointments Date Type Provider Dept 10/31/21 Appointment Jabier Peck MD [facility] Showing future appointments within next 90 days and meeting all other requirements TRIC POWER SUPERINTENDENT documented in this encounter Plan of Treatment Upcoming Encounters Date Type Department Care Team (Late st Contact Info) Description 07/14/2025 1:30 PM ELECTRIC POWER SUPERINTENDENT Office Visit [facility] - Neurology - [place] [address] [place] [address] Aria Delong, OCCUPATIONAL HEALTH AND SAFETY ADVISER, CHILDREN'S MINISTER #2 [place] [address] documented as of this encounter Visit Diagnoses Diagnosis Cervical radiculopathy Brachial neuritis or radiculitis nos documented in this encounter Additional Health Concerns Infection Onset Date Last Indicated Resolved Time COVID - 19 Confirmed 05/31/2022 05/31/2022 023 12:16 AM ELECTRIC POWER SUPERINTENDENT Respiratory Rule Out - RPA 02/26/2023 02/26/2023 0 02/26/2023 11:31 AM CDT COVID - 19 02/26/2023 02/26/2023 03/08/2023 12:1 6 AM CDT documented as of this encounter Care Teams Mill Recorder Relationship Specialty Start Date End Date Jabier Peck MD #[address] [address] PCP - General Family Medicine 06/22/20 01/16/24 Tad Mcintosh MD [address] [place] [address] PCP - General Family Medicine 01/17/24 Srikanth Adrian MD #2 [facility] [address] [place] [address] Packaging Machine Operator Cardiovascular Disease - Cardiology 02/02/22 08/06/24 Gloria Martinez MD #2 [facility] [address] [place] [address] Consulting Physician Urology 04/30/24 documented as of this encounter
--- OUTSIDE RECORDS SUMMARY | 2025-05-06 22:19 | XMS_ITS | Encounter Summary ---
Author Organization [facility] Address [address] [place] [address] Phone Care Team Providers Care Garbage Truck Driver Name Role Phone Jabier Peck MD Primary Care Provider [phone] Srikanth Adrian MD Unavailable Tad Romero MD Primary Care Provider [phone] Gloria Martinez MD Unavailable [phone] Reason for Visit * Reason Comments Medication Refill Encounter Details Date Type Department Care Team (Late st Contact Info) Description 02/22/2022 Refill [facility] [address] [place] [address] Jabier Peck MD #[address] [address] Medication Refill Social History Tobacco [...] CDT Gender Identity Male 05/03/2023 12:44 PM RESORT KEEPER Sexual Orientation Lesbian or Wolff 05/03/2023 12 :44 PM RESORT KEEPER COVID-19 Exposure Response Date Recorded In the last 10 days, have yo u been in contact with someone who was confirmed or suspected to have Coronavirus/COVID-19? No / Unsure 02/24/2022 3:19 PM CDT documented as of this encounter Functional Status * Question Answer Date of Assessment Author BP 112/58 02/24/2022 3:33 PM CDT Kalpesh Beckford RMA Temp 97.6 02/24/2022 3:33 PM CDT Kalpesh Beckford, RMA Temp src Temporal 02/24/2022 3:33 PM CDT Kalpesh Beckford, RMA Pulse 83 02/24/2022 3:33 PM CDT Kalpesh Beckford, RMA Resp 14 02/24/2022 3:33 PM CDT Kalpesh Beckford, RMA SpO2 96 02/24/2022 3:33 PM CDT Kalpesh Beckford, RMA Height 69 02/24/2022 3:33 PM CDT Kalpesh Beckford, RMA Weight 4123.2 02/24/2022 3:33 PM CDT Kalpesh Beckford RMA * Advance Directive Assessment Question Answer Date of Assessment Author Medical Decision Maker Assessment Patient is medical decision-maker 02/24/2022 3:00 PM Kalpesh Ellsworth RMA Power of Product Delivery Specialist for Health Care (POA-HC) POA-HC form is present and current 02/24/2022 3:00 PM CDKalpesh Tilley RMA * Grooming (hair, face): Answer Date of Assessment Author No difficulty 02/24/2022 3:00 PM CDMargarita Tilley RMA * Bathing: Answer Date of Assessment Author No difficulty 02/24/2022 3:00 PM CDMargarita Tilley RMA * Dressing: Answer Date of Assessment Author No difficulty 02/24/2022 3:00 PM CDT Margarita Beckford RMA * Able to Walk: Answer Date of Assessment Author Able to walk 02/24/2022 3:00 PM Margarita Ellsworth RMA * Stairs: Answer Date of Assessment Author No difficulty 02/24/2022 3:00 PM Margarita Ellsworth RMA * BSA (Calculated - sq m) Answer Date of Assessment Author 2.39 02/24/2022 3:33 PM Margarita Ellsworth RMA * BMI (Calculated) Answer Date of Assessment Author 38.1 02/24/2022 3:33 PM Margarita Ellsworth RMA * Advance Directive Assessment Question Answer Date of Assessment Author Medical Decision Maker Assessment Patient is medical decision-maker 02/24/2022 3:00 PM Kalpesh Ellsworth RMA Power of Product Delivery Specialist for Health Care (POA-HC) POA-HC form is present and current 02/24/2022 3:00 PM Kalpesh Ellsworth RMA * Can describe alteration in self/care routine resulting from treatment Answer Date of Assessment Author Yes 02/24/2022 3:00 PM Margarita Ellsworth RMA * Can provide names, doses, and reasons for current medications? Answer Date of Assessment Author Yes 02/24/2022 3:00 PM Margarita Ellsworth RMA * Can follow treatment plan for diet/activity/meds w/o difficulty? Answer Date of Assessment Author Yes 02/24/2022 3:00 PM Margarita Ellsworth RMA * Learning needs? Answer Date of Assessment Author None identified 02/24/2022 3:00 PM Margarita Ellsworth RMA * Learning barriers? Answer Date of Assessment Author None identified 02/24/2022 3:00 PM Margarita Ellsworth RMA * Best method of learning? Answer Date of Assessment Author Reading;Visual/pictures;Demo nstration;I nternet;Discussion 02/24/2022 3:00 PM Kalpesh Ellsworth RMA * Who is being assessed for learning? Answer Date of Assessment Author Patient 02/24/2022 3:00 PM CDMargarita Tilley RMHeather * BMI (Calculated) Answer Date of Assessment Author 38.1 02/24/2022 3:33 PM Margarita Ellsworth RMHeather documented as of this encounter Mental Status * Question Answer Entry Date Author BP 112/58 02/24/2022 3:33 PM CDKalpesh Tilley RMA Temp 97.6 02/24/2022 3:33 PM CDT Kalpesh Beckford RMA Pulse 83 02/24/2022 3:33 PM CDT Kalpesh Beckford RMA SpO2 96 02/24/2022 3:33 PM CDKalpesh Tilley RMA Weight 4123.2 02/24/2022 3:33 PM Kalpesh Ellsworth RMHeather * Advance Directive Assessment Question Answer Entry Date Author Medical Decision Maker Assessment Patient is medical decision-maker 02/24/2022 3:00 PM Kalpesh Ellsworth RMA Power of Product Delivery Specialist for Health Care (POA-HC) POA-HC form is present and current 02/24/2022 3:00 PM Kalpesh Ellsworth RMA * Can describe alteration in self/care routine resulting from treatment Answer Entry Date Author Yes 02/24/2022 3:00 PM CDMargarita Tilley RMA * Can provide names, doses, and reasons for current medications? Answer Entry Date Author Yes 02/24/2022 3:00 PM Margarita Ellsworth RMA * Can follow treatment plan for diet/activity/meds w/o difficulty? Answer Entry Date Author Yes 02/24/2022 3:00 PM CDMargarita Tilley RMA * Learning needs? Answer Entry Date Author None identified 02/24/2022 3:00 PM CDMargarita Tilley RMA * Learning barriers? Answer Entry Date Author None identified 02/24/2022 3:00 PM CDMargarita Tilley RMA * Best method of learning? Answer Entry Date Author Reading;Visual/pictures;Demo nstration;I nternet;Discussion 02/24/2022 3:00 PM CDT Kalpesh Beckford RMA * Who is being assessed for learning? Answer Entry Date Author Patient 02/24/2022 3:00 PM CDT Margarita Beckford RMA documented in this encounter Miscellaneous Notes * Telephone Encounter [...] 01/31/22 Office Visit Kishore Prieto APRN, R[facility]ARD [facility] 12/13/21 Telemedicine Kishore Prieto APRN, RICHARD [facility] 08/01/21 Office Visit Jabier Peck MD [facility] [place] 04/29/21 Office Visit Jabier Peck MD [facility] [place] 03/16/21 Office Visit Kishore Prieto APRN, RICHARD [facility] Showing recent visits within past 365 days and meeting all other requirements Future Appointments Date Type Provider Dept 02/24/22 Appointment Kishore Prieto APRN, RICHARD [facility] Showing future appointments within next 90 days and meeting all other requirements documented in this encounter Plan of Treatment Upcoming Encounters Date Type Department Care Team (Late st Contact Info) Description 07/14/2025 1:30 PM RESORT KEEPER Office Visit [facility] - Neurology - [place] [address] [place] [address] Aria Delong APRN, SOFTWARE ENGINEERING SUPERVISOR #[address] [place] [address] documented as of this encounter Visit Diagnoses Diagnosis Cervical radiculopathy Brachial neuritis or radiculitis nos documented in this encounter Additional Health Concerns Infection Onset Date Last Indicated Resolved Time COVID - 19 Confirmed 05/31/2022 05/31/2022 023 12:16 AM RESORT KEEPER Respiratory Rule Out - RPA 02/26/2023 02/26/2023 0 02/26/2023 11:31 AM CDT COVID - 19 02/26/2023 02/26/2023 03/08/2023 12:1 6 AM CDT documented as of this encounter Care Teams Garbage Truck Driver Relationship Specialty Start Date End Date Jabier Peck MD #2 [facility] [address] [place] [address] PCP - General Family Medicine 06/22/20 01/16/24 Tad Mcintosh MD [address] [place] [address] PCP - General Family Medicine 01/17/24 Srikanth Adrian MD #2 [facility] [address] [place] [address] Site Safety Representative Cardiovascular Disease - Cardiology 02/02/22 08/06/24 Gloria Martinez MD #2 [facility] [address] [place] [address] Consulting Physician Urology 04/30/24 documented as of this encounter
--- OUTSIDE RECORDS SUMMARY | 2025-05-06 22:19 | XMS_ITS | Encounter Summary ---
Author Organization [facility] Address [address] [place] [address] Phone Care Team Providers Care Linen Controller Name Role Phone Srikanth Adrian MD Unavailable Tad Romero MD Primary Care Provider [phone] Gloria Martinez MD Unavailable [phone] Reason for Visit * Reason Comments Medication Refill Encounter Details Date Type Department Care Team (Late st Contact Info) Description 05/28/2024 Refill [facility] - [facility] #2 [place] [id number] Jabier Peck MD #[address] [address] Medication Refill Social History Tobacco Use Types [...] CDT Gender Identity Male 05/03/2023 12:44 PM CULLET TRUCKER Sexual Orientation Lesbian or Wolff 05/03/2023 12 :44 PM CULLET TRUCKER documented as of this encounter Miscellaneous Notes * Telephone Encounter - Francine Soto RN - 05/28/2024 11:10 AM CST PCP: Tad Mcintosh MD ET TRUCKER documented in this encounter Plan of Treatment Upcoming Encounters Date Type Department Care Team (Late st Contact Info) Description 07/14/2025 1:30 PM CULLET TRUCKER Office Visit [facility] - Neurology - [place] [address] [place] [address] Aria Delong APRN, LINE DIRECTOR #[address] [place] [address] documented as of this encounter Visit Diagnoses Not on filedocumented in this encounter Care Teams Linen Controller Relationship Specialty Start Date End Date Tad Mcintosh MD [address] [place] [address] PCP - General Family Medicine 01/17/24 Srikanth Adrian MD Nuclear Medicine Officer Cardiovascular Disease - Cardiology 02/02/22 08/06/24 Gloria Martinez MD #[address] [address] Consulting Physician Urology 04/30/24 documented as of this encounter
--- OUTSIDE RECORDS SUMMARY | 2025-05-06 22:19 | XMS_ITS | Encounter Summary ---
Author Organization [facility] Address [address] [place] [address] Phone Care Team Providers Care Wood Polisher Name Role Phone Jabier Peck MD Primary Care Provider [phone] Srikanth Adrian MD Unavailable Tad Romero MD Primary Care Provider [phone] Gloria Martinez MD Unavailable [phone] Reason for Visit * Reason Onset Date Comments Medication Refill 12/28/2021 Encounter Details Date Type Department Care Team (Late st Contact Info) Description 12/28/2021 Refill [facility] - Family [facility] #2 [place] [address] Jabier Peck MD #[address] [address] Medication Refill Social History Tobacco Use Types [...] CDT Gender Identity Male 05/03/2023 12:44 PM HOTEL AND DINING ROOM CASHIER Sexual Orientation Lesbian or Wolff 05/03/2023 12 :44 PM HOTEL AND DINING ROOM CASHIER COVID-19 Exposure Response Date Recorded In the [...] physician/MARVA review. Refill encounter routed to nurse [employer] for processing. documented in this encounter Plan of Treatment Upcoming Encounters Date Type Department Care Team (Late st Contact Info) Description 07/14/2025 1:30 PM HOTEL AND DINING ROOM CASHIER Office Visit [facility] - Neurology [facility] #2 [place] [address] Aria Delong APRN, HEARING THERAPY TEACHER #[address] [place] [address] documented as of this encounter Visit Diagnoses Not on filedocumented in this encounter Additional Health Concerns Infection Onset Date Last Indicated Resolved Time COVID - 19 Confirmed 05/31/2022 05/31/2022 023 12:16 AM HOTEL AND DINING ROOM CASHIER Respiratory Rule Out - RPA 02/26/2023 02/26/2023 0 02/26/2023 11:31 AM CDT COVID - 19 02/26/2023 02/26/2023 03/08/2023 12:1 6 AM CDT documented as of this encounter Care Teams Wood Polisher Relationship Specialty Start Date End Date Jabier Peck MD #[address] [address] PCP - General Family Medicine 06/22/20 01/16/24 Tad Mcintosh MD [address] [place] [address] PCP - General Family Medicine 01/17/24 Srikanth Adrian MD #2 [facility] [address] [place] [address] Vertical Contour Band Saw Operator Cardiovascular Disease - Cardiology 02/02/22 08/06/24 Gloria Martinez MD #2 [email or web address] [address] [place] [address] Consulting Physician Urology 04/30/24 documented as of this encounter
--- OUTSIDE RECORDS SUMMARY | 2025-05-06 22:19 | XMS_ITS | Encounter Summary ---
Author Organization [facility] Address [address] [place] [address] Phone Care Team Providers Care Java Software Architect Name Role Phone Jabier Peck MD Primary Care Provider [phone] Srikanth Adrian MD Unavailable Tad Romero MD Primary Care Provider [phone] Gloria Martinez MD Unavailable [phone] Reason for Visit * Reason Comments Medication Refill Encounter Details Date Type Department Care Team (Late st Contact Info) Description 12/11/2021 Refill [facility] #2 [place] [address] Jabier Peck MD #[address] [address] Medication Refill Social History Tobacco Use Types [...] CDT Gender Identity Male 05/03/2023 12:44 PM PRESS SET UP Sexual Orientation Lesbian or Wolff 05/03/2023 12 :44 PM PRESS SET UP COVID-19 Exposure Response Date Recorded In the [...] Dept 08/01/21 Office Visit Jabier Peck MD [facility] [place] 04/29/21 Office Visit Jabier Peck MD [facility] 03/16/21 Office Visit Kishore Prieto APRN, RICHARD [facility] [place] Showing recent visits within past 365 days and meeting all other requirements Future Appointments Date Type Provider Dept 12/13/21 Appointment Kishore Prieto APRN, RICH[facility] [place] Showing future appointments within next 90 days and meeting all other requirements documented in this encounter Plan of Treatment Upcoming Encounters Date Type Department Care Team (Late st Contact Info) Description 07/14/2025 1:30 PM PRESS SET UP Office Visit [facility] - Neurology - [place] #2 [place] [address] Aria Delong APRN, PRODUCT TESTER #2 [place] [address] documented as of this encounter Visit Diagnoses Diagnosis Cervical radiculopathy Brachial neuritis or radiculitis nos documented in this encounter Additional Health Concerns Infection Onset Date Last Indicated Resolved Time COVID - 19 Confirmed 05/31/2022 05/31/2022 023 12:16 AM PRESS SET UP Respiratory Rule Out - RPA 02/26/2023 02/26/2023 0 02/26/2023 11:31 AM CDT COVID - 19 02/26/2023 02/26/2023 03/08/2023 12:1 6 AM CDT documented as of this encounter Care Teams Java Software Architect Relationship Specialty Start Date End Date Jabier Peck MD #2 [facility] [address] [place] [address] PCP - General Family Medicine 06/22/20 01/16/24 Tad Mcintosh MD [address] [place] [address] PCP - General Family Medicine 01/17/24 Srikanth Adrian MD #2 [facility] [address] [place] [address] Food Preservation Scientist Cardiovascular Disease - Cardiology 02/02/22 08/06/24 Gloria Martinez MD #2 [facility] [address] [place] [address] Consulting Physician Urology 04/30/24 documented as of this encounter
--- OUTSIDE RECORDS SUMMARY | 2025-05-06 22:19 | XMS_ITS | Encounter Summary ---
Author Organization [facility] Address [address] [place] [address] Phone Care Team Providers Care Seed Cone Picker Name Role Phone Macy Kwok MD Primary Care Provider [phone] Srikanth Adrian MD Unavailable Tad Romero MD Primary Care Provider [phone] Gloria Martinez MD Unavailable [phone] Reason for Visit * Reason Comments Medication Refill Encounter Details Date Type Department Care Team (Late st Contact Info) Description 01/23/2022 Refill [facility] Family [facility] #2 [place] [address] Macy Kwok MD #[address] [address] Medication Refill Social History Tobacco Use Types [...] Gender Identity Male 05/03/2023 12:44 PM MAINTENANCE PLUMBER Sexual Orientation Lesbian or Wolff 05/03/2023 12 :44 PM MAINTENANCE PLUMBER COVID-19 Exposure Response Date Recorded In the [...] APRN, CNP [facility] 08/01/21 Office Visit Macy Kwok MD [facility] 04/29/21 Office Visit Macy Kwok MD [facility] 03/16/21 Office Visit Kishore Prieto APRN, RICHARD [facility] Showing recent visits within past 365 days and meeting all other requirements Future Appointments Date Type Provider Dept 01/31/22 Appointment Kishore Prieto APRN, [facility] [place] Showing future appointments within next 90 [...] Date Type Provider Dept 08/01/21 Office Visit Macy Kwok MD [facility] 04/29/21 Office Visit Macy Kwok MD [facility] Showing recent visits within past 270 days and meeting all other requirements Future Appointments Date Type Provider Dept 01/31/22 Appointment Kishore Prieto APRN, GROWTH HACKER [facility] Showing future appointments within next 90 [...] 1 MG TABLET 12/27/2021 90 90 Each [facility]/pharmacy #[id number] - G... documented in this encounter Plan of Treatment Upcoming Encounters Date Type Department Care Team (Late st Contact Info) Description 07/14/2025 1:30 PM MAINTENANCE PLUMBER Office Visit [facility] - Neurology [facility] #2 [place] [address] Aria Delong APRN, FOOD TESTER #2 [place] [address] documented as of this encounter Visit Diagnoses Diagnosis Cervical radiculopathy Brachial neuritis or radiculitis nos documented in this encounter Additional Health Concerns Infection Onset Date Last Indicated Resolved Time COVID - 19 Confirmed 05/31/2022 05/31/2022 023 12:16 AM MAINTENANCE PLUMBER Respiratory Rule Out - RPA 02/26/2023 02/26/2023 0 02/26/2023 11:31 AM CDT COVID - 19 02/26/2023 02/26/2023 03/08/2023 12:1 6 AM CDT documented as of this encounter Care Teams Seed Cone Picker Relationship Specialty Start Date End Date Macy Kwok MD #2 [facility] [address] [place] [address] PCP - General Family Medicine 06/22/20 01/16/24 Tad Mcintosh MD [address] [place] [address] PCP - General Family Medicine 01/17/24 Srikanth Adrian MD #2 [facility] [address] [place] [address] Flight Attendant Cardiovascular Disease - Cardiology 02/02/22 08/06/24 Gloria Martinez MD #2 [facility] [address] [place] [address] Consulting Physician Urology 04/30/24 documented as of this encounter
--- OUTSIDE RECORDS SUMMARY | 2025-05-06 22:19 | XMS_ITS | Encounter Summary ---
Author Organization [facility] Address [address] [place] [address] Phone Care Team Providers Care Track Leader Name Role Phone Jabier Peck MD Primary Care Provider [phone] Srikanth Adrian MD Unavailable Tad Romero MD Primary Care Provider [phone] Gloria Martinez MD Unavailable [phone] Reason for Visit * Reason Comments Medication Refill Encounter Details Date Type Department Care Team (Late st Contact Info) Description 02/24/2022 [facility]ill [facility] #2 [place] [address] Jabier Peck MD #[address] [address] Medication Refill Social History Tobacco Use Types [...] Gender Identity Male 05/03/2023 12:44 PM TELEPHONE OPERATOR RECEPTIONIST Sexual Orientation Lesbian or Wolff 05/03/2023 12 :44 PM TELEPHONE OPERATOR RECEPTIONIST COVID-19 Exposure Response Date Recorded In the [...] 3:00 PM Kalpesh Ellsworth RMA Power of Clock Mechanic for Health Care (POA-HC) POA-HC form is [...] 3:00 PM Kalpesh Ellsworth RMA Power of Clock Mechanic for Health Care (POA-HC) POA-HC form is [...] 3:00 PM Kalpesh Ellsworth RMA Power of Clock Mechanic for Health Care (POA-HC) POA-HC form is [...] 01/31/22 Office Visit Kishore Prieto APRN, CNP [facility] 12/13/21 Telemedicine [facility] 08/01/21 Office Visit Jabier Peck MD [facility] 04/29/21 Office Visit Jabier Peck MD [facility] 03/16/21 Office Visit Kishore Prieto APRN, CNP [facility] Showing recent visits within past 365 days and meeting all other requirements Today's Visits Date Type Provider Dept 02/24/22 Appointment Kishore Prieto APRN, CNP [facility] Showing today's visits and meeting all other requirements Future Appointments No visits were found meeting these conditions. Showing future appointments within next 90 days and meeting all other requirements documented in this encounter Plan of Treatment Upcoming Encounters Date Type Department Care Team (Late st Contact Info) Description 07/14/2025 1:30 PM TELEPHONE OPERATOR RECEPTIONIST Office Visit [facility] - Neurology - [place] [address] [place] [address] Aria Delong, SPORTS RECRUITER, PICKLE MAKER [address] [place] [address] documented as of this encounter Visit Diagnoses Not on filedocumented in this encounter Additional Health Concerns Infection Onset Date Last Indicated Resolved Time COVID - 19 Confirmed 05/31/2022 05/31/2022 023 12:16 AM TELEPHONE OPERATOR RECEPTIONIST Respiratory Rule Out - RPA 02/26/2023 02/26/2023 0 02/26/2023 11:31 AM CDT COVID - 19 02/26/2023 02/26/2023 03/08/2023 12:1 6 AM CDT documented as of this encounter Care Teams Track Leader Relationship Specialty Start Date End Date Jabier Peck MD #2 [facility] [address] [place] [address] PCP - General Family Medicine 06/22/20 01/16/24 Tad Mcintosh MD [address] [place] [place] [address] PCP - General Family Medicine 01/17/24 Srikanth Adrian MD #2 [facility] [address] [place] [address] Supervisor Erection Shop Cardiovascular Disease - Cardiology 02/02/22 08/06/24 Gloria Martinez MD #2 [facility] [address] [place] [address] Consulting Physician Urology 04/30/24 documented as of this encounter
--- OUTSIDE RECORDS SUMMARY | 2025-05-06 22:20 | XMS_ITS ---
Author Name ABBY BUTLER Address [address] [place] [address] Phone [facility] Address [address] [place] [address] Phone Care Team Providers Care Supervisor Rice Milling Name Role Phone ABBY BUTLER Unavailable [phone] ALLERGIES, ADVERSE REACTIONS AND ALERTS Allergy Name Allergy Date Allergy Status Allergy Severity Allergy Reaction NO KNOWN DRUG ALLERGIES PROBLEMS Problem Code Problem Description Problem Status Problem Da te Problem End Date [id number]-Atckoxmvvlv tract congestion and cough Respiratory tract congestion and cough Current 04/28/2022 [id number]-Iqilucf disorder Bipolar disorder Chronic 04/28/2022 [id number]-Qayzrrwtm emphysema Pulmonary emphysema Chronic 04/28/2022 [id number]-Kdmuuu disease Kidney disease Chronic 04/28/2022 [id number]-Jfobkfff mellitus Diabetes mellitus Chronic 04/28/2022 [id number]-Ieiquk Asthma Chronic 04/28/2022 [id number]-Lprpeimbqig sleep apnea syndrome Obstructive sleep apnea syndrome [...] ever smoked Sex: Male CARE TEAM INFORMATION Supervisor Rice Milling Provider ID Role Location Phone ABBY BUTLER [id number] NURSE PRACTITIONER [address] [place] [address] INSURANCE PROVIDERS Payer Name Policy type / Coverage type Covered constitution party ID Policy [place] Medicaid [id number] SELF [facility] MEDICARE ADVANTAGE Private Health Insurance [id number] SELF
--- OUTSIDE RECORDS SUMMARY | 2025-05-06 22:20 | XMS_ITS | Clinical Summary ---
Author Organization [facility] Address [address] [place] [address] Care Team Providers Care Aba Therapist Name Role Phone Jabier Peck MD MPH Primary Care Provider [phone] Allergies Active Allergy Reactions Criticality Noted Date [...] Years Used Date Smoking Tobacco: Former Cigarettes 35 0 09/1986 - 09/2021 Smokeless Tobacco: Never [...] Additional history exists Influenza Vaccine (#1) 2025 , 08/01/2021, 03/31/2020, Additional history exists Pneumococcal Vaccine: [...] specimen (specimen) Venous blood / Unknown 12/30/2021 [facility] Provider LAB BLOOD ORDERABLES Becky l Result from Last 3 Months or Most Recently Relevant to Health Maintenance [place] [address] Medicaid [place] Care Teams Aba Therapist Relationship Specialty Start Date End Date Jabier Peck MD MPH [address] [address] PCP - General Family Medicine 09/13/21
--- OUTSIDE RECORDS SUMMARY | 2025-05-06 22:20 | XMS_ITS | Encounter Summary ---
Author Organization [facility] Address [address] [place] [address] Phone Care Team Providers Care Surgical Assist Name Role Phone Tad Mcintosh MD Primary Care Provider [phone] Gloria Martinez MD Unavailable [phone] Reason for Visit * Reason Comments Medication Refill Encounter Details Date Type Department Care Team (Late st Contact Info) Description 10/21/2024 Refill [facility] - Family Medicine [facility] #[address] [place] [id number] Jabier Peck MD #[address] [address] Medication Refill Social History Tobacco Use Types [...] Gender Identity Male 05/03/2023 12:44 PM MANAGER TRANSPLANT Sexual Orientation Lesbian or Wolff 05/03/2023 12 :44 PM MANAGER TRANSPLANT documented as of this encounter Miscellaneous Notes * Telephone Encounter - Francine Soto RN - 10/22/2024 9:04 AM CDT PCP: Tad Mcintosh MD documented in this encounter Plan of Treatment Upcoming Encounters Date Type Department Care Team (Late st Contact Info) Description 07/14/2025 1:30 PM MANAGER TRANSPLANT [facility] - [place] #[address] [place] [address] Aria Delong APRN, DESIGN ENGINEERING MANAGER [address] [place] [address] documented as of this encounter Visit Diagnoses Not on filedocumented in this encounter Care Teams Surgical Assist Relationship Specialty Start Date End Date Tad Mcintosh MD [address] [place] [address] PCP - General Family Medicine 01/17/24 Gloria Martinez MD #[address] [address] Consulting Physician Urology 04/30/24 documented as of this encounter
--- OUTSIDE RECORDS SUMMARY | 2025-05-06 22:20 | XMS_ITS | Encounter Summary ---
Author Organization [facility] Address [address] [place] [address] Phone Care Team Providers Care Radioisotope Technician Name Role Phone Srikanth Adrian MD Unavailable Tad Romero MD Primary Care Provider [phone] Gloria Martinez MD Unavailable [phone] Reason for Visit * Reason Comments Medication Refill Encounter Details Date Type Department Care Team (Late st Contact Info) Description 07/03/2024 Refill [facility] #[address] [place] [address] Jabier Peck MD #[address] [address] Medication Refill Social History Tobacco Use Types [...] CDT Gender Identity Male 05/03/2023 12:44 PM PALLET RECTIFIER Sexual Orientation Lesbian or Wolff 05/03/2023 12 :44 PM PALLET RECTIFIER documented as of this encounter Miscellaneous Notes * Telephone Encounter - Francine Soto RN - 07/04/2024 8:54 AM CST PCP: Tad Mcintosh MD ET RECTIFIER documented in this encounter Plan of Treatment Upcoming Encounters Date Type Department Care Team (Late st Contact Info) Description 07/14/2025 1:30 PM PALLET RECTIFIER Office Visit [facility] - Neurology - [place] [address] [place] [address] Aria Delong APRN, FAMILY SERVICE ASSISTANT [address] [place] [address] documented as of this encounter Visit Diagnoses Not on filedocumented in this encounter Care Teams Radioisotope Technician Relationship Specialty Start Date End Date Tad Mcintosh MD [address] [place] [address] PCP - General Family Medicine 01/17/24 Srikanth Adrian MD Lime Kiln Operator Cardiovascular Disease - Cardiology 02/02/22 08/06/24 Gloria Martinez MD #[address] [address] Consulting Physician Urology 04/30/24 documented as of this encounter
--- OUTSIDE RECORDS SUMMARY | 2025-05-06 22:20 | XMS_ITS | Encounter Summary ---
Author Organization [facility] Address [address] [place] [address] Phone Care Team Providers Care Vibrating Screen Operator Name Role Phone Jabier Peck MD Primary Care Provider [phone] Srikanth Adrian MD Unavailable Tad Romero MD Primary Care Provider [phone] Gloria Martinez MD Unavailable [phone] Reason for Visit * Reason Comments Medication Refill Encounter Details Date Type Department Care Team (Late st Contact Info) Description 06/16/2021 Refill [facility] #[address] [place] [address] Jabier Peck MD #[address] [address] Medication Refill Social History Tobacco Use Types [...] Gender Identity Male 05/03/2023 12:44 PM GUN FITTER Sexual Orientation Lesbian or Wolff 05/03/2023 12 :44 PM GUN FITTER COVID-19 Exposure Response Date Recorded In the last month, have you been in contact with someone who was confirmed or suspected to have Coronavirus / COVID-19? No / Unsure 06/16/2021 1:10 PM GUN FITTER documented as of this encounter Functional Status * Therapeutic Exercises Question Answer Date of Assessment Author Therapeutic Exercises Billab le Minutes 38 06/16/2021 1:30 PM GUN FITTER Yadira Wade RN * Recert Tracking Question Answer Date of Assessment Author PT - Current Visit 9 06/16/2021 1:30 PM GUN FITTER Yadira Wade RN PT Specific Addl Info 12 POC 06/16/2021 1:30 PM GUN FITTER Yadira Wade RN * Pre-treatment Question Answer Date of Assessment Author Pain Level 4 06/16/2021 1:30 PM GUN FITTER Yadira Stanton RN * Post-treatment Question Answer Date of Assessment Author Post Pain Level 2 06/16/2021 1:30 PM GUN FITTER Yadira Cameron RN * Therapeutic Exercises Answer Date of Assessment Author 38 06/16/2021 1:30 PM GUN FITTER Yadira Wade RN * Total Billable Minutes Answer Date of Assessment Author 38 06/16/2021 1:30 PM GUN FITTER Yadira Wade RN * Total Timed Treatment Minutes Answer Date of Assessment Author 38 06/16/2021 1:30 PM GUN FITTER Yadira Wade RN documented as of this encounter Mental Status * Question Answer Entry Date Author Post Pain Level 2 06/16/2021 1:30 PM GUN FITTER Yadira Cameron RN documented in this encounter Miscellaneous Notes * [...] MD [facility] 08/20/20 Telemedicine Kishore Prieto APRN, RICHARD [facility] 08/06/20 Telemedicine Kishore Prieto APRN, RICHARD [facility] 06/22/20 Office Visit Kishore Prieto APRN, RICHARD [facility] Showing recent visits within past 365 days and meeting all other requirements Future Appointments Date Type Provider Dept 08/01/21 Appointment [facility] MD [facility] Showing future appointments within next 90 days and meeting all other requirements FITTER documented in this encounter Plan of Treatment Upcoming Encounters Date Type Department Care Team (Late st Contact Info) Description 07/14/2025 1:30 PM GUN FITTER Office Visit [facility] - Neurology [facility] [address] [place] [address] Aria Delong APRN, SENIOR OFFICE SUPPORT ASSISTANT [facility] #[address] [place] [address] documented as of this encounter Visit Diagnoses Diagnosis Cervical radiculopathy Brachial neuritis or radiculitis nos documented in this encounter Additional Health Concerns Infection Onset Date Last Indicated Resolved Time COVID - 19 Confirmed 05/31/2022 05/31/2022 023 12:16 AM GUN FITTER Respiratory Rule Out - RPA 02/26/2023 02/26/2023 0 02/26/2023 11:31 AM CDT COVID - 19 02/26/2023 02/26/2023 03/08/2023 12:1 6 AM CDT documented as of this encounter Care Teams Vibrating Screen Operator Relationship Specialty Start Date End Date Jabier Peck MD #2 [facility] [address] [place] [address] PCP - General Family Medicine 06/22/20 01/16/24 Tad Mcintosh MD [address] [place] [address] PCP - General Family Medicine 01/17/24 Srikanth Adrian MD #2 [facility] [address] [place] [address] Legal Internship Cardiovascular Disease - Cardiology 02/02/22 08/06/24 Gloria Martinez MD #[address] [address] Consulting Physician Urology 04/30/24 documented as of this encounter
--- OUTSIDE RECORDS SUMMARY | 2025-05-06 22:20 | XMS_ITS | Encounter Summary ---
Author Organization [facility] Address [address] [place] [address] Phone Care Team Providers Care Hotel Engineer Name Role Phone Jabier Peck MD Primary Care Provider [phone] Srikanth Adrian MD Unavailable Tad Romero MD Primary Care Provider [phone] Gloria Martinez MD Unavailable [phone] Reason for Visit * Reason Comments Medication Refill Encounter Details Date Type Department Care Team (Late st Contact Info) Description 07/22/2021 [facility]ill [facility] Oncology Services [address] [place] [address] Jt Morillo MD [address] [place] [address] Medication Refill Social History Tobacco Use Types [...] CDT Gender Identity Male 05/03/2023 12:44 PM SHUTTLE FILLER Sexual Orientation Lesbian or Wolff 05/03/2023 12 :44 PM SHUTTLE FILLER COVID-19 Exposure Response Date Recorded In the last month, have you been in contact with someone who was confirmed or suspected to have Coronavirus / COVID-19? No / Unsure 07/14/2021 12:17 PM SHUTTLE FILLER documented as of this encounter Miscellaneous Notes * Telephone Encounter - Michelle Wharton RN - 07/22/2021 2:26 PM SHUTTLE FILLER Refilled Eliquis TLE FILLER documented in this encounter Plan of Treatment Upcoming Encounters Date Type Department Care Team (Late st Contact Info) Description 07/14/2025 1:30 PM SHUTTLE FILLER Office Visit [facility] - Neurology [facility] #[address] [place] [address] Aria Delong APRN, FILM TOUCH UP INSPECTOR [address] [place] [address] documented as of this encounter Visit Diagnoses Diagnosis History of thrombophilia associated with MTHFR mutation documented in this encounter Additional Health Concerns Infection Onset Date Last Indicated Resolved Time COVID - 19 Confirmed 05/31/2022 05/31/2022 023 12:16 AM SHUTTLE FILLER Respiratory Rule Out - RPA 02/26/2023 02/26/2023 0 02/26/2023 11:31 AM CDT COVID - 19 02/26/2023 02/26/2023 03/08/2023 12:1 6 AM CDT documented as of this encounter Care Teams Hotel Engineer Relationship Specialty Start Date End Date Jabier Peck MD #[address] [address] PCP - General Family Medicine 06/22/20 01/16/24 Tad Mcintosh MD [address] [place] [address] PCP - General Family Medicine 01/17/24 Srikanth Adrian MD #2 [facility] [address] [place] [address] Network Development Coordinator Cardiovascular Disease - Cardiology 02/02/22 08/06/24 Gloria Martinez MD #[address] [facility] [address] [place] [address] Consulting Physician Urology 04/30/24 documented as of this encounter
--- OUTSIDE RECORDS SUMMARY | 2025-05-06 22:20 | XMS_ITS | Encounter Summary ---
Author Organization [facility] Address [address] [place] [address] Phone Care Team Providers Care Visual Merchandising Assistant Name Role Phone Srikanth Adrian MD Unavailable Tad Romero MD Primary Care Provider [phone] Gloria Martinez MD Unavailable [phone] Reason for Visit * Reason Comments Medication Refill Encounter Details Date Type Department Care Team (Late st Contact Info) Description 07/26/2024 [facility]ill [facility] Family [facility] #[address] [place] [address] Jabier Peck MD #[address] [address] Medication Refill Social History Tobacco Use Types [...] CDT Gender Identity Male 05/03/2023 12:44 PM AREA MANAGER Sexual Orientation Lesbian or Wolff 05/03/2023 12 :44 PM AREA MANAGER documented as of this encounter Miscellaneous Notes * Telephone Encounter - Sheyla Burgess RN - 07/28/2024 10:39 AM AREA MANAGER Changed PCPs to Tad Mcintosh MD MANAGER * Telephone Encounter - Sheyla Burgess RN - 07/28/2024 10:39 AM AREA MANAGER Now seeing Tad Mcintosh MD MANAGER * Telephone Encounter - Sheyla Burgess RN - 07/28/2024 10:38 AM AREA MANAGER Needs OV. Last seen April 2023. MANAGER documented in this encounter Plan of Treatment Upcoming Encounters Date Type Department Care Team (Late st Contact Info) Description 07/14/2025 1:30 PM AREA MANAGER Office Visit [facility] - Neurology [facility] #[address] [place] [address] Aria Delong APRN, SHUT OFF WORKER [address] [place] [address] documented as of this encounter Visit Diagnoses Not on filedocumented in this encounter Care Teams Visual Merchandising Assistant Relationship Specialty Start Date End Date Tad Mcintosh MD [address] [place] [address] PCP - General Family Medicine 01/17/24 Srikanth Adrian MD Loan Expeditor Cardiovascular Disease - Cardiology 02/02/22 08/06/24 Gloria Martinez MD #[address] [place] [address] Consulting Physician Urology 04/30/24 documented as of this encounter
--- OUTSIDE RECORDS SUMMARY | 2025-05-06 22:20 | XMS_ITS | Encounter Summary ---
Author Organization [facility] Address [address] [place] [address] Phone Care Team Providers Care Pharmacognosy Teacher Name Role Phone Jabier Peck MD Primary Care Provider [phone] Srikanth Adrian MD Unavailable Tad Romero MD Primary Care Provider [phone] Gloria Martinez MD Unavailable [phone] Reason for Visit * Reason Comments Medication Refill Encounter Details Date Type Department Care Team (Late st Contact Info) Description 07/20/2021 Refill [facility] #[address] [place] [address] Jabier Peck MD #[address] [address] Medication Refill Social History Tobacco Use Types [...] CDT Gender Identity Male 05/03/2023 12:44 PM CHAR FILTER TANK TENDER Sexual Orientation Lesbian or Wolff 05/03/2023 12 :44 PM CHAR FILTER TANK TENDER COVID-19 Exposure Response Date Recorded In the last month, have you been in contact with someone who was confirmed or suspected to have Coronavirus / COVID-19? No / Unsure 07/14/2021 12:17 PM CHAR FILTER TANK TENDER documented as of this encounter Miscellaneous [...] [place] 08/20/20 Telemedicine Kishore Prieto APRN, RICH[facility] 08/06/20 Telemedicine Kishore Prieto APRN, BLANKBOOK STITCHING MACHINE OPERATOR [facility] Showing recent visits within past 365 days and meeting all other requirements Future Appointments Date Type Provider Dept 08/01/21 Appointment Jabier Peck MD [facility] Showing future appointments within next 90 days and meeting all other requirements FILTER TANK TENDER documented in this encounter Plan of Treatment Upcoming Encounters Date Type Department Care Team (Late st Contact Info) Description 07/14/2025 1:30 PM CHAR FILTER TANK TENDER Office Visit [facility] - Neurology - [place] [address] [place] [address] Aria Delong APRN, COUNTY ATTORNEY #2 [facility] [place] [address] documented as of this encounter Visit Diagnoses Diagnosis Cervical radiculopathy Brachial neuritis or radiculitis nos documented in this encounter Additional Health Concerns Infection Onset Date Last Indicated Resolved Time COVID - 19 Confirmed 05/31/2022 05/31/2022 023 12:16 AM CHAR FILTER TANK TENDER Respiratory Rule Out - RPA 02/26/2023 02/26/2023 0 02/26/2023 11:31 AM CDT COVID - 19 02/26/2023 02/26/2023 03/08/2023 12:1 6 AM CDT documented as of this encounter Care Teams Pharmacognosy Teacher Relationship Specialty Start Date End Date Jabier Peck MD #[address] [address] PCP - General Family Medicine 06/22/20 01/16/24 aTd Mcintosh MD [address] [place] [address] PCP - General Family Medicine 01/17/24 Srikanth Adrian MD #2 [facility] [address] [place] [address] Drone Software Development Engineer Cardiovascular Disease - Cardiology 02/02/22 08/06/24 Gloria Martinez MD #2 [facility] [address] [place] [address] Consulting Physician Urology 04/30/24 documented as of this encounter
--- OUTSIDE RECORDS SUMMARY | 2025-05-06 22:20 | XMS_ITS | Clinical Summary ---
Author Organization [facility] Address [address] [address] Phone Care Team Providers Care Absorption Plant Operator Helper Name Role Phone Tad Mcintosh MD Primary Care Provider [phone] Gloria Martinez MD Unavailable [phone] Allergies Active Allergy Reactions Criticality Noted [...] mL 01/13/20 Active Insulin Pen Needle (Pen [place]) 29G X 12MM Misc As instructed 100 Each 2 01/13/20 Active Blood Glucose Monitoring Suppl (D-Care Glucometer) w/Device Kit Use to monitor glucose fasting and prior to each meal 1 Kit 01/13/20 Active Active Problems Problem Noted Date Diagnosed [...] Date Diabetic foot infection 09/18/2021 04/0 11/2021 Immunizations Immunization Administration Dates Next Due Covid-19, Mrna, Lnp-s, Pf, 30 Mcg/0.3 Ml Dose (Beena fizer) 09/11/2020,08/21/2020 Influenza Vaccine greater than 3 [...] Sister 5 Anjali Clotting Disorder Sister 6 Lcaudia Embolism Other-comment Sister 6 Claudia PE Relation [...] any time in the past 12 [address] [place], were you homeless or living in a long-term (including now)? Patient declined 01/10/2025 [facility] Utilities Answer Date Recorded In [...] Gender Identity Male 05/03/2023 12:44 PM INSURANCE FOLLOW UP REPRESENTATIVE Sexual Orientation Lesbian or Wolff 05/03/2023 12 :44 PM INSURANCE FOLLOW UP REPRESENTATIVE Last Filed Vital Signs Vital Sign Reading [...] 01/10/2025 10:46 PM CDT Plan of Treatment Upcoming Encounters Date Type Department Care Team (Late st Contact Info) Description 07/14/2025 1:30 PM INSURANCE FOLLOW UP REPRESENTATIVE Office Visit [facility] - [facility] [address] [place] [address] Aria Delong APRN, WET END TESTER [address] [place] [address] Health Maintenance Due Date Last Done Comments Diabetes: Eye Exam 1969 Varicella Immunization (1 of 2 - 13+ 2-dose series) 1982 Hepatitis B Immunization (1 of 3 - 19+ 3-dose series) 02/10/1988 Cologuard 2014 Immunochemical Fecal Occult Blood 2014 Respiratory Syncytial Virus (RSV) Immunization (Adult) (1 - Risk 50-74 years 1-dose series) 2019 Zoster Immunization (1 of 2) 2019 Medicare Initial AWV G0438 11/17/2019 Pneumococcal Immunization (50+ years) (2 of 2 - PCV) 06/22/2021 06/22/2020 Diabetes: Foot Exam 08/18/2022 08/18/2021 Influenza Immunization (#1) 02/16/202504/19, 02/24/2022, 08/01/2021, Additional history exists SARS-COV-2 Immunization ( season) 2025 05/30/2021, 09/11/2020, 08/21/2020 Diabetes: Hemoglobin A1c 07/13/2025 025, 02/26/2023, 08/21/2022, Additional history exists Colonoscopy 10/06/2025 10/06/2020 Colorectal Cancer Screening 10/06/2025 Diabetes: Nephropathy Screening 01/10/2026 01/10/2025, 02/26/2023, 08/21/2022, Additional history exists Td Immunization Every 10 Years (Adults With 1 Tdap) 02/26/2029 02/26/2019, 02/26/2019 DTaP/Tdap/Td Immunization Discontinued 02/26/2019, 04/2019 Pneumococcal Immunization [...] Associated Diagnosis Comments CMP (COMPREHENSIVE METABOLIC PANEL) STAT 01/10/2025 8:13 PM CDT HEMOGLOBIN A1C W/ ESTIMATED GLUCOSE STAT 01/10/2025 8:13 PM CDT PSA SCREEN Routine 02/26/2023 12:32 PM CDT Screening for prostate cancer CT CHEST SCREENING WO Routine 05/10/2022 2:52 PM INSURANCE FOLLOW UP REPRESENTATIVE Personal history of nicotine dependence PODIATRY CONSULT 08/18/2021 12:0 0 AM INSURANCE FOLLOW UP REPRESENTATIVE from Last 3 Months or Most Recently Relevant to Health Maintenance Results * (ABNORMAL) Hemoglobin A1C w/ Estimated Glucose (01/10/2025 8:13 PM CDT) HGB-A1C 12.4(H) 4.0 - 6.0 % 01/10/2025 8:41 PM CDT [facility] Est Average Glucose 309.2 mg/dL 01/10/2025 8:41 PM CDT [facility] Blood Venipuncture / Unknown 01/10/2025 8:13 PM CDT 01/10/2025 8:22 PM CDT Narrative [facility] - 01/10/2025 8:41 PM CDT HEMOGLOBIN A1C: DIABETIC PATIENTS: WELL-CONTROLLED: 6.2 - 7.0 INTERMEDIATE WELL-CONTROLLED: 7.0 - 9.0 POORLY-CONTROLLED: >9.0 Specimens containing greater than 5% of Hemoglobin F may result in lower than expected % HbA1C results. us Yissel Iniguez NUCLEAR LOGGING ENGINEER, SKIDWAY WORKER CHEMISTRY ORDERABLES Becky l Result [facility] [address] [place] [address] * (ABNORMAL) CMP (Comprehensive Metabolic Panel) (01/10/2025 8:13 PM CDT) SODIUM 136 136 - 145 mmol/L 01/10/2025 8:43 PM CDT [facility] POTASSIUM 2.9(L) 3.5 - 5.1 mmol/L 01/10/2025 8:43 PM CDT [facility] CHLORIDE 101 98 - 107 mmol/L 01/10/2025 8:43 PM CDT [facility] CO2, VENOUS 23 22 - 30 mmol/L 01/10/2025 8:43 PM CDT [facility] ANION GAP 14.9 <18.0 mmol/L 01/10/2025 8:43 PM CDT [facility] GLUCOSE 319(H) 70 - 99 mg/dL 01/10/2025 8:43 PM CDT [facility] BUN 13 8 - 26 mg/dL 01/10/2025 8:43 PM CDT [facility] CREATININE, BLOOD 1.41(H) 0.70 - 1.30 mg/dL 01/10/2025 8:43 PM CDT [facility] BUN/CREATININE RATIO 9(L) 12 - 20 ratio 01/10/2025 8:43 PM CDT [facility] TOTAL PROTEIN 7.2 6.0 - 8.0 g/dL 01/10/2025 8:43 PM CDT [facility] ALBUMIN 4.5 3.5 - 5.0 g/dL 01/10/2025 8:43 PM CDT [facility] A/G RATIO 1.7 1.0 - 2.2 01/10/2025 8:43 PM CDT [facility] CALCIUM 9.6 8.7 - 10.5 mg/dL 01/10/2025 8:43 PM CDT [facility] T BILI 0.5 0.2 - 1.2 mg/dL 01/10/2025 8:43 PM CDT [facility] SGOT (AST) 20 <43 U/L 01/10/2025 8:43 PM CDT [facility] SGPT (ALT) 40 <56 U/L 01/10/2025 8:43 PM CDT [facility] ALKALINE PHOSPHATASE 142 40 - 150 U/L 01/10/2025 8:43 PM CDT [facility] GFR, ESTIMATED 59(L) >=60 01/10/2025 8:43 PM CDT [facility] Comment: Creatinine Clearance is the preferred criteria for selecting drug dose adjustments in renally impaired patients. The GFR is provided as additional pertinent clinical information. GFR is reported in mL/min/1.73 sq m. Calculation based on the Chronic Kidney Disease Epidemiology Collaboration (CKD- EPI) equation refit without adjustment for race. GFR, EST. >60 >=60 025 8:43 PM CDT [facility] GFR, EST. NONAFRICAN 52(L) >=60 01/10/2025 8:43 PM CDT [facility] Blood Venipuncture / Unknown 01/10/2025 8:13 PM CDT 01/10/2025 8:22 PM CDT us Yissel Iniguez APRN, SKIDWAY WORKER CHEMISTRY ORDERABLES Becky l Result Performing Organization Address [facility] Co de Phone Number [facility] [address] [place] [address] * PSA SCREEN (02/26/2023 12:32 PM CDT) PSA SCREEN, TOTAL 0.60 <4.00 ng/mL 02/26/2023 1:45 PM CDT [facility] Blood Venipuncture / Unknown 02/26/2023 12:32 PM CDT 02/26/2023 12:57 PM CDT Narrative [facility] - 02/26/2023 1:45 PM CDT The EXECUTIVE STEWARD Total PSA assay is a Chemiluminescent Microparticle Immunoassay (CMIA) for the quantitative determination of total PSA (both free PSA and PSA complexed to [id number]) in human serum. us Kishore Prieto APRN, SKIDWAY WORKER CHEMISTRY ORDERA BLES Final Result Performing Organization Address [facility] Co de Phone Number [facility] [address] [place] [address] * CT CHEST SCREENING WO (05/10/2022 2:52 PM INSURANCE FOLLOW UP REPRESENTATIVE) Anatomical Region Laterality Modality Chest N/A Computed Tomogra phy 05/12/2022 9:10 AM INSURANCE FOLLOW UP REPRESENTATIVE Impressions 05/12/2022 9:13 AM INSURANCE FOLLOW UP REPRESENTATIVE IMPRESSION: 1. Background of mild pulmonary emphysema. 2. Scattered tiny bilateral pulmonary nodules. No suspicious nodularity. 3. Mild coronary artery calcifications. 4. Additional findings as above. Lung-RADS v1.1 category 2: Benign appearance or behavior. Recommendation: Low dose CT of chest in 12 months. Narrative 05/12/2022 9:13 AM INSURANCE FOLLOW UP REPRESENTATIVE EXAM DESCRIPTION: CT CHEST SCREENING WO REASON [...] Mallorie Gomez M.D. TW: TW Report ID: [id number] Reading Location: [id number] Procedure Note Mallorie Gomez MD - 05/12/2022 [...] Mallorie Gomez M.D. TW: KRISTIN Report ID: [id number] Reading Location: [id number] IMPRESSION: 1. Background of mild pulmonary emphysema. 2. Scattered tiny bilateral pulmonary nodules. No suspicious nodularity. 3. Mild coronary artery calcifications. 4. Additional findings as above. Lung-RADS v1.1 category 2: Benign appearance or behavior. Recommendation: Low dose CT of chest in 12 months. us Kishore Prieto APRN, SKIDWAY WORKER IMG CT ORDERABLE S Final Result * PODIATRY CONSULT (08/18/2021 12:00 AM INSURANCE FOLLOW UP REPRESENTATIVE) 08/18/2021 us Not On File Provider GENERIC SCAN ORDERS CONSULT Final Result SCAN from Last 3 Months or Most Recently Relevant to Health Maintenance Insurance MEDICAID [place] MEDICARE C [facility] [facility] Advance Directives * Full Code (Latest Code [...] measures to stabilize the patient. Care Teams Absorption Plant Operator Helper Relationship Specialty Start Date End Date Tad Mcintosh MD [address] [place] [address] PCP - General Family Medicine 01/17/24 Gloria Martinez MD [address] [address] Consulting Physician Urology 04/30/24
--- OUTSIDE RECORDS SUMMARY | 2025-05-06 22:21 | XMS_ITS | Encounter Summary ---
Author Organization [facility] Address [address] [place] [address] Phone Care Team Providers Care Steam And Gas Turbine Assembler Name Role Phone Jabier Peck MD Primary Care Provider [phone] Srikanth Adrian MD Unavailable Tad Romero MD Primary Care Provider [phone] Gloria Martinez MD Unavailable [phone] Reason for Visit * Reason Comments Medication Refill Encounter Details Date Type Department Care Team (Late st Contact Info) Description 03/19/2023 Refill [facility] [address] [place] [id number] Jabier Peck MD [address] [address] Medication Refill Social History Tobacco Use Types [...] Gender Identity Male 05/03/2023 12:44 PM OIL WELL SERVICE OPERATOR HELPER Sexual Orientation Lesbian or Wolff 05/03/2023 12 :44 PM OIL WELL SERVICE OPERATOR HELPER COVID-19 Exposure Response Date Recorded In [...] [facility] 05/03/22 Telemedicine Jabier Peck MD [facility] [place] Showing recent visits within past 365 [...] st Contact Info) Description 07/14/2025 1:30 PM OIL WELL SERVICE OPERATOR HELPER Office Visit [facility] - Neurology [facility] [address] [place] [address] Aria Delong, CERTIFIED CONTROL SYSTEMS TECHNICIAN, NURSING TEACHER [address] [place] [address] documented as of this encounter Visit Diagnoses Not on filedocumented in this encounter Care Teams Steam And Gas Turbine Assembler Relationship Specialty Start Date End Date Jabier Peck MD #2 [facility] [address] [place] [address] PCP - General Family Medicine 06/22/20 01/16/24 Tad Mcintosh MD [address] [place] [address] PCP - General Family Medicine 01/17/24 Srikanth Adrian MD [address]2 [facility] [address] [place] [address] Diagnostic Medical Sonographer Cardiovascular Disease - Cardiology 02/02/22 08/06/24 Gloria Martinez MD #2 [facility] [address] [place] [address] Consulting Physician Urology 04/30/24 documented as of this encounter
--- OUTSIDE RECORDS SUMMARY | 2025-05-06 22:21 | XMS_ITS | Encounter Summary ---
Author Organization [facility] Address [address] [place] [address] Phone Care Team Providers Care Annual Greenhouse Manager Name Role Phone Jabier Peck MD Primary Care Provider [phone] Srikanth Adrian MD Unavailable Tad Romero MD Primary Care Provider [phone] Gloria Martinez MD Unavailable [phone] Encounter Details Date Type Department Care Team (Late st Contact Info) Description 03/21/2023 Telephone [facility] [address] [place] [address] Jabier Peck MD [address] [address] Social History Tobacco Use Types Packs/Day Years [...] CDT Gender Identity Male 05/03/2023 12:44 PM SOUND ENGINEERING TECHNICIAN Sexual Orientation Lesbian or Wolff 05/03/2023 12 :44 PM SOUND ENGINEERING TECHNICIAN COVID-19 Exposure Response Date Recorded In [...] st Contact Info) Description 07/14/2025 1:30 PM SOUND ENGINEERING TECHNICIAN [facility] - [place] [address] [place] [address] Aria Delong APRN, ELECTRICAL SIGN WIRER HELPER [address] [place] [address] documented as of this encounter Visit Diagnoses Not on filedocumented in this encounter Care Teams Annual Greenhouse Manager Relationship Specialty Start Date End Date Jabier Peck MD #[address] [address] PCP - General Family Medicine 06/22/20 01/16/24 Tad Mcintosh MD [address] [place] [address] PCP - General Family Medicine 01/17/24 Srikanth Adrian MD [address] [facility] [address] [place] [address] Structural Technician Cardiovascular Disease - Cardiology 02/02/22 08/06/24 Gloria Martinez MD #[address] [facility] [address] [place] [address] Consulting Physician Urology 04/30/24 documented as of this encounter
--- OUTSIDE RECORDS SUMMARY | 2025-05-06 22:21 | XMS_ITS | Encounter Summary ---
Author Organization [facility] Address [address] [place] [address] Phone Care Team Providers Care Twill Cutter Name Role Phone Jabier Peck MD Primary Care Provider [phone] Srikanth Adrian MD Unavailable Tad Romreo MD Primary Care Provider [phone] Gloria Martinez MD Unavailable [phone] Reason for Visit * Reason Comments Medication Refill Encounter Details Date Type Department Care Team (Late st Contact Info) Description 02/27/2023 Refill [facility] [address] [place] [phone] Jabier Peck MD #[address] [address] Medication Refill Social History Tobacco Use Types [...] CDT Gender Identity Male 05/03/2023 12:44 PM WAITER/WAITRESS Sexual Orientation Lesbian or Wolff 05/03/2023 12 :44 PM WAITER/WAITRESS COVID-19 Exposure Response Date Recorded In the [...] st Contact Info) Description 07/14/2025 1:30 PM WAITER/WAITRESS Office Visit [facility] - Neurology - [place] [address] [place] [address] Aria Delong, CULTURAL CENTRE MANAGER, WIRE TECHNICIAN [address] [place] [address] documented as of this encounter Visit Diagnoses Diagnosis Cervical radiculopathy Brachial neuritis or radiculitis nos documented in this encounter Additional Health Concerns Infection Onset Date Last Indicated Resolved Time COVID - 19 02/26/2023 02/26/2023 03/08/2023 12:1 6 AM CDT documented as of this encounter Care Teams Twill Cutter Relationship Specialty Start Date End Date Jabier Peck MD #2 [facility] [address] [place] [address] PCP - General Family Medicine 06/22/20 01/16/24 Tad Mcintosh MD [address] [place] [address] PCP - General Family Medicine 01/17/24 Srikanth Adrian MD #2 [facility] [address] [place] [address] Payroll Manager Cardiovascular Disease - Cardiology 02/02/22 08/06/24 Gloria Martinez MD #2 [facility] [address] [place] [address] Consulting Physician Urology 04/30/24 documented as of this encounter
--- OUTSIDE RECORDS SUMMARY | 2025-05-06 22:22 | XMS_ITS | Encounter Summary ---
Author Organization [facility] Address [address] [place] [address] Phone Care Team Providers Care Nursing Agency Manager Name Role Phone Jabier Peck MD Primary Care Provider [phone] Srikanth Adrian MD Unavailable Tad Romero MD Primary Care Provider [phone] Gloria Martinez MD Unavailable [phone] Reason for Visit * Reason Comments Medication Refill Encounter Details Date Type Department Care Team (Late st Contact Info) Description 08/01/2023 Refill [facility] Family [facility] #2 [place] [phone] Jabier Peck MD #[address] [address] Medication Refill Social History Tobacco Use Types [...] CDT Gender Identity Male 05/03/2023 12:44 PM STORES DESPATCH HAND Sexual Orientation Lesbian or Wolff 05/03/2023 12 :44 PM STORES DESPATCH HAND documented as of this encounter Miscellaneous [...] 05/11/23 Office Visit Piper Toro [facility], [facility] [place] 05/03/23 Office Visit Piper Toro APRN, [facility] [place] 02/26/23 Office Visit Kishore Prieto APRN, [facility] 12/18/22 Telemedicine Jabier Peck MD [facility] 11/30/22 Telemedicine Kishore Prieto APRN, [facility] [place] 08/21/22 Office Visit Jabier Peck MD [facility] [place] Showing recent visits within past 365 days and meeting all other requirements Future Appointments No visits were found meeting these conditions. Showing future appointments within next 90 days and meeting all other requirements Passed - Active short-acting beta agonist prescription ES DESPATCH HAND documented in this encounter Plan of Treatment Upcoming Encounters Date Type Department Care Team (Late st Contact Info) Description 07/14/2025 1:30 PM STORES DESPATCH HAND Office Visit [facility] - Neurology - [place] [address] [place] [address] Aria Delong, NATURAL SCIENCE CURATOR, CRYSTAL GAZER [address] [facility] [place] [address] documented as of this encounter Visit Diagnoses Not on filedocumented in this encounter Care Teams Nursing Agency Manager Relationship Specialty Start Date End Date Jabier Peck MD [facility]2 [facility] [address] [address] PCP - General Family Medicine 06/22/20 01/16/24 Tad Mcintosh MD [address] [place] [address] PCP - General Family Medicine 01/17/24 Srikanth Adrian MD [address] [address] Delinquent Tax Collection Assistant Cardiovascular Disease - Cardiology 02/02/22 08/06/24 Gloria Martinez MD [facility]2 [facility] [address] [address] Consulting Physician Urology 04/30/24 documented as of this encounter
--- OUTSIDE RECORDS SUMMARY | 2025-05-06 22:22 | XMS_ITS | Encounter Summary ---
Author Organization [facility] Address [address] [place] [address] Phone Care Team Providers Care Security Control Center Operator Name Role Phone Jabier Peck MD Primary Care Provider [phone] Srikanth Adrian MD Unavailable Tad Romero MD Primary Care Provider [phone] Gloria Martinez MD Unavailable [phone] Reason for Visit * Reason Comments Medication Refill Encounter Details Date Type Department Care Team (Late st Contact Info) Description 02/02/2021 Refill [facility] Family Medicine [facility] #[address] [place] [address] Jabier Peck MD #[address] [address] Medication Refill Social History Tobacco Use Types [...] CDT Gender Identity Male 05/03/2023 12:44 PM FREIGHT AIR BRAKE FITTER Sexual Orientation Lesbian or Wolff 05/03/2023 12 :44 PM FREIGHT AIR BRAKE FITTER documented as of this encounter Miscellaneous Notes [...] 11/16/20 Office Visit Kishore Prieto APN, [facility] [place] 10/20/20 Office Visit Jabier Peck MD [facility] [place] 08/20/20 Telemedicine Kishore Prieto APN, [facility] [place] 08/06/20 Telemedicine Kishore Prieto APN, RICHARD [facility] [place] 06/22/20 Office Visit Kishore Prieto APN, R[facility] Showing recent visits within past 365 days and meeting all other requirements Future Appointments No visits were found meeting these conditions. Showing future appointments within next 90 days and meeting all other requirements documented in this encounter Plan of Treatment Upcoming Encounters Date Type Department Care Team (Late st Contact Info) Description 07/14/2025 1:30 PM FREIGHT AIR BRAKE FITTER Office Visit [facility] - [facility]rology - [place] [address] [place] [address] Aria Delong, TECHNICAL STAFF ENGINEER, WRITING TUTOR [address] [place] [address] documented as of this encounter Visit Diagnoses Not on filedocumented in this encounter Additional Health Concerns Infection Onset Date Last Indicated Resolved Time COVID - 19 Confirmed 05/31/2022 05/31/2022 023 12:16 AM FREIGHT AIR BRAKE FITTER Respiratory Rule Out - RPA 02/26/2023 02/26/2023 0 02/26/2023 11:31 AM CDT COVID - 19 02/26/2023 02/26/2023 03/08/2023 12:1 6 AM CDT documented as of this encounter Care Teams Security Control Center Operator Relationship Specialty Start Date End Date Jabier Peck MD #2 [facility] [address] [place] [address] PCP - General Family Medicine 06/22/20 01/16/24 Tad Mcintosh MD [address] [place] [address] PCP - General Family Medicine 01/17/24 Srikanth Adrian MD #2 [facility] [address] [place] [address] Leaf Stamper Cardiovascular Disease - Cardiology 02/02/22 08/06/24 Gloria Martinez MD #[address] [facility] [address] [place] [address] Consulting Physician Urology 04/30/24 documented as of this encounter
--- OUTSIDE RECORDS SUMMARY | 2025-05-06 22:22 | XMS_ITS | Encounter Summary ---
Author Organization [facility] Address [address] [place] [address] Phone Care Team Providers Care Information Services Consultant Name Role Phone Jabier Peck MD Primary Care Provider [phone] Srikanth Adrian MD Unavailable Tad Romero MD Primary Care Provider [phone] Gloria Martinez MD Unavailable [phone] Reason for Visit * Reason Comments Medication Refill Encounter Details Date Type Department Care Team (Late st Contact Info) Description 04/13/2023 Refill [facility] #2 [place] [id number] Jabier Peck MD #[address] [address] Medication Refill Social History Tobacco Use Types [...] CDT Gender Identity Male 05/03/2023 12:44 PM SCENARIO WRITER Sexual Orientation Lesbian or Wolff 05/03/2023 12 :44 PM SCENARIO WRITER documented as of this encounter Miscellaneous Notes [...] Dept 02/26/23 Office Visit Kishore Prieto APRN, PSYCHOLOGIST PRIVATE PRACTICE [facility] 12/18/22 Telemedicine Jabier Peck MD [facility] 11/30/22 Telemedicine Kishore Prieto APRN, PSYCHOLOGIST PRIVATE PRACTICE [facility] [place] 08/21/22 Office Visit Jabier Peck MD [facility] 07/20/22 Office Visit Gerri Rocha MD [facility] 05/03/22 Telemedicine Jabier Peck MD [facility] [place] Showing recent visits within past 365 days and meeting all other requirements Future Appointments Date Type Provider Dept 06/28/23 Appointment Jabier Peck MD [facility] Showing future appointments within next 90 days and meeting all other requirements documented in this encounter Plan of Treatment Upcoming Encounters Date Type Department Care Team (Late st Contact Info) Description 07/14/2025 1:30 PM SCENARIO WRITER Office Visit [facility] - Neurology - [place] #[address] [place] [address] Aria Delong, QUALITY ASSURANCE ENGINEER, REHABILITATION WORKER #2 [place] [address] documented as of this encounter Visit Diagnoses Diagnosis Cervical radiculopathy Brachial neuritis or radiculitis nos documented in this encounter Care Teams Information Services Consultant Relationship Specialty Start Date End Date Jabier Peck MD #2 [facility] [address] [place] [address] PCP - General Family Medicine 06/22/20 01/16/24 Tad Mcintosh MD [address] [place] [address] PCP - General Family Medicine 01/17/24 Srikanth Adrian MD #2 [facility] [address] [place] [address] Pit Tanner Cardiovascular Disease - Cardiology 02/02/22 08/06/24 Gloria Martinez MD #2 [facility] [address] [place] [address] Consulting Physician Urology 04/30/24 documented as of this encounter
--- OUTSIDE RECORDS SUMMARY | 2025-05-06 22:22 | XMS_ITS | Encounter Summary ---
Author Organization [facility] Address [address] [place] [address] Phone Care Team Providers Care Emt/Paramedic Name Role Phone Jabier Peck MD Primary Care Provider [phone] Srikanth Adrian MD Unavailable Tad Romero MD Primary Care Provider [phone] Gloria Martinez MD Unavailable [phone] Reason for Visit * Reason Comments Medication Refill Encounter Details Date Type Department Care Team (Late st Contact Info) Description 03/19/2023 Refill [facility] #2 [place] [id number] Jabier Peck MD #[address] [address] Medication Refill Social History Tobacco Use Types [...] CDT Gender Identity Male 05/03/2023 12:44 PM OPHTHALMOLOGIST Sexual Orientation Lesbian or Wolff 05/03/2023 12 :44 PM OPHTHALMOLOGIST COVID-19 Exposure Response Date Recorded In the [...] Dept 02/26/23 Office Visit Kishore Prieto APRN, CNP [facility] 12/18/22 Telemedicine Jabier Peck MD [facility] 11/30/22 Telemedicine Kishore Prieto APRN, [facility] 08/21/22 Office Visit Jabier Peck MD [facility] 07/20/22 Office Visit Gerri Rocha MD [facility] 05/03/22 Telemedicine Jabier [facility]ck MD [facility] [place] Showing recent visits within past 365 days and meeting all other requirements Future Appointments No visits were found meeting these conditions. Showing future appointments within next 90 days and meeting all other requirements documented in this encounter Plan of Treatment Upcoming Encounters Date Type Department Care Team (Late st Contact Info) Description 07/14/2025 1:30 PM OPHTHALMOLOGIST Office Visit [facility] - Neurology - [place] #2 [place] [address] Aria Delong APRN, BLUEPRINT ENGINEER #2 [place] [address] documented as of this encounter Visit Diagnoses Diagnosis Cervical radiculopathy Brachial neuritis or radiculitis nos Lumbar radiculopathy Thoracic or lumbosacral neuritis or radiculitis, unspecified documented in this encounter Care Teams Emt/Paramedic Relationship Specialty Start Date End Date Jabier Peck MD #2 [facility] [address] [place] [address] PCP - General Family Medicine 06/22/20 01/16/24 Tad Mcintosh MD [address] [place] [address] PCP - General Family Medicine 01/17/24 Srikanth Adrian MD #2 [facility] [address] [place] [address] De Icer Kit Assembler Cardiovascular Disease - Cardiology 02/02/22 08/06/24 Glroia Martinez MD #2 [facility] [address] [place] [address] Consulting Physician Urology 04/30/24 documented as of this encounter
--- OUTSIDE RECORDS SUMMARY | 2025-05-06 22:22 | XMS_ITS | Encounter Summary ---
Author Organization [facility] Address [address] [place] [address] Phone Care Team Providers Care Music Manager Name Role Phone Jabier Peck MD Primary Care Provider [phone] Srikanth Adrian MD Unavailable Tad Romero MD Primary Care Provider [phone] Gloria Martinez MD Unavailable [phone] Reason for Visit * Reason Comments Medication Refill Encounter Details Date Type Department Care Team (Late st Contact Info) Description 05/14/2023 Refill [facility] #2 [place] [id number] Jabier Peck MD #[address] [address] Medication Refill Social History Tobacco Use Types [...] CDT Gender Identity Male 05/03/2023 12:44 PM PIE DOUGH ROLLER Sexual Orientation Lesbian or Wolff 05/03/2023 12 :44 PM PIE DOUGH ROLLER documented as of this encounter Miscellaneous Notes [...] 02/26/23 Office Visit Kishore Prieto APRN, RICHARD [facility] 12/18/22 Telemedicine Jabier Peck MD [facility] [...] 90 days and meeting all other requirements DOUGH ROLLER documented in this encounter Plan of Treatment Upcoming Encounters Date Type Department Care Team (Late st Contact Info) Description 07/14/2025 1:30 PM PIE DOUGH ROLLER Office Visit [facility] - [facility]rology - [place] [address]2 [facility] [place] [address] Aria Delong APRN, ANTENNA ENGINEER #2 [facility] [place] [place] [address] documented as of this encounter Visit Diagnoses Not on filedocumented in this encounter Care Teams Music Manager Relationship Specialty Start Date End Date Jabier Peck MD #2 [facility] [address] [place] [address] PCP - General Family Medicine 06/22/20 01/16/24 Tad Mcintosh MD [address] [place] [address] PCP - General Family Medicine 01/17/24 Srikanth Adrian MD #2 [facility] [address] [place] [address] Fermentologist Cardiovascular Disease - Cardiology 02/02/22 08/06/24 Gloria Martinez MD #2 [facility] [address] [place] [address] Consulting Physician Urology 04/30/24 documented as of this encounter
--- OUTSIDE RECORDS SUMMARY | 2025-05-06 22:23 | XMS_ITS | Encounter Summary ---
Author Organization [facility] Address [address] [place] [address] Phone Care Team Providers Care Talent Development Analyst Name Role Phone Jabier Peck MD Primary Care Provider [phone] Srikanth Adrian MD Unavailable Tad Romero MD Primary Care Provider [phone] Gloria Martinez MD Unavailable [phone] Reason for Visit * Reason Comments Medication Refill Encounter Details Date Type Department Care Team (Late st Contact Info) Description 12/07/2023 Refill [facility] Family [facility] #2 [place] [id number] Jabier Peck MD #[address] [address] Medication Refill Social History Tobacco Use Types [...] Wolff 05/03/2023 12 :44 PM MAXILLOFACIAL PROSTHODONTIST documented as of this encounter Miscellaneous Notes [...] 05/03/23 Office Visit Piper Toro APRN, [facility] [place] 02/26/23 Office Visit Kishore Prieto APRN, RICHARD [facility] [place] 12/18/22 Telemedicine Jabier Peck MD [facility] Showing recent visits within past 365 days and meeting all other requirements Future Appointments No visits were found meeting these conditions. Showing future appointments within next 90 days and meeting all other requirements documented in this encounter Plan of Treatment Upcoming Encounters Date Type Department Care Team (Late st Contact Info) Description 07/14/2025 1:30 PM MAXILLOFACIAL PROSTHODONTIST [facility] [place] #2 [place] [address] Aria Delong APRN, TRAPEZE ARTIST #2 [place] [address] documented as of this encounter Visit Diagnoses Not on filedocumented in this encounter Care Teams Talent Development Analyst Relationship Specialty Start Date End Date Jabier Peck MD #2 [facility] [address] [place] [address] PCP - General Family Medicine 06/22/20 01/16/24 Tad Mcintosh MD [address] [place] [address] PCP - General Family Medicine 01/17/24 Srikanth Adrian MD #2 [facility] [address] [place] [address] Creosoting Engineer Cardiovascular Disease - Cardiology 02/02/22 08/06/24 Gloria Martinez MD #2 [facility] [address] [place] [address] Consulting Physician Urology 04/30/24 documented as of this encounter
--- OUTSIDE RECORDS SUMMARY | 2025-05-06 22:23 | XMS_ITS | Encounter Summary ---
Author Organization [facility] Address [address] [place] [address] Phone Care Team Providers Care Bit Sharpener Operator Name Role Phone Jabier Peck MD Primary Care Provider [phone] Srikanth Adrian MD Unavailable Tad Romero MD Primary Care Provider [phone] Gloria Martinez MD Unavailable [phone] Reason for Visit * Reason Comments Medication Refill Encounter Details Date Type Department Care Team (Late st Contact Info) Description 01/06/2021 Refill [facility] - Family Medicine - [place] #2 [place] [phone] Jt Morillo MD [address] [place] [address] Medication Refill Social History Tobacco Use Types [...] CDT Gender Identity Male 05/03/2023 12:44 PM PUBLIC SPEAKER Sexual Orientation Lesbian or Wolff 05/03/2023 12 :44 PM PUBLIC SPEAKER documented as of this encounter Miscellaneous Notes * Telephone Encounter - Aisha Escamilla RN - 01/06/2021 11:22 AM CDT Refilled Eliquis per last F/U note. documented in this encounter Plan of Treatment Upcoming Encounters Date Type Department Care Team (Late st Contact Info) Description 07/14/2025 1:30 PM PUBLIC SPEAKER Office Visit [facility] - Neurology - [place] #2 [place] [address] Aria Delong APRN, MANAGER CLINICAL #2 [place] [address] documented as of this encounter Visit Diagnoses Diagnosis History of thrombophilia associated with MTHFR mutation documented in this encounter Additional Health Concerns Infection Onset Date Last Indicated Resolved Time COVID - 19 Confirmed 05/31/2022 05/31/2022 023 12:16 AM PUBLIC SPEAKER Respiratory Rule Out - RPA 02/26/2023 02/26/2023 0 02/26/2023 11:31 AM CDT COVID - 19 02/26/2023 02/26/2023 03/08/2023 12:1 6 AM CDT documented as of this encounter Care Teams Bit Sharpener Operator Relationship Specialty Start Date End Date Jabier Peck MD #[address] [address] PCP - General Family Medicine 06/22/20 01/16/24 Tad Mcintosh MD [address] [place] [address] PCP - General Family Medicine 01/17/24 Srikanth Adrian MD #[address] [place] [address] Program Therapist Cardiovascular Disease - Cardiology 02/02/22 08/06/24 Gloria Martinez MD #2 [facility] [address] [place] [address] Consulting Physician Urology 04/30/24 documented as of this encounter
--- OUTSIDE RECORDS SUMMARY | 2025-05-06 22:23 | XMS_ITS | Encounter Summary ---
Author Organization [facility] Address [address] [place] [address] Phone Care Team Providers Care Contract Negotiation Manager Name Role Phone Srikanth Adrian MD Unavailable Tad oRmero MD Primary Care Provider [phone] Gloria Martinez MD Unavailable [phone] Reason for Visit * Reason Comments Medication Refill Encounter Details Date Type Department Care Team (Late st Contact Info) Description 03/15/2024 Refill [facility] Family [facility] #2 [place] [address] Kishore Prieto APRN, COMMUNITY OUTREACH COORDINATOR #[address] [address] Medication Refill Social History Tobacco [...] CDT Gender Identity Male 05/03/2023 12:44 PM BOOK CRITIC Sexual Orientation Lesbian or Wolff 05/03/2023 12 :44 PM BOOK CRITIC documented as of this encounter Miscellaneous Notes * Telephone Encounter - Francine Soto RN - 03/17/2024 12:59 PM CDT PCP Tad Mcintosh MD documented in this encounter Plan of Treatment Upcoming Encounters Date Type Department Care Team (Late st Contact Info) Description 07/14/2025 1:30 PM BOOK CRITIC Office Visit [facility] - Neurology - [place] #2 [place] [address] Aria Delong APRN, MERGERS AND ACQUISITIONS CONSULTANT #2 [place] [address] documented as of this encounter Visit Diagnoses Not on filedocumented in this encounter Care Teams Contract Negotiation Manager Relationship Specialty Start Date End Date Tad Mcintosh MD [address] [place] [address] PCP - General Family Medicine 01/17/24 Srikanth Adrian MD Airconditioning Drafting Officer Cardiovascular Disease - Cardiology 02/02/22 08/06/24 Gloria Martinez MD #[address] [address] Consulting Physician Urology 04/30/24 documented as of this encounter
--- OUTSIDE RECORDS SUMMARY | 2025-05-06 22:24 | XMS_ITS | Encounter Summary ---
Author Organization [facility] Address [address] [place] [address] Phone Care Team Providers Care Head Of Sales Name Role Phone Jabier Peck MD Primary Care Provider [phone] Srikanth Adrian MD Unavailable Tad Romero MD Primary Care Provider [phone] Gloria Martinez MD Unavailable [phone] Reason for Visit * Reason Onset Date Comments Medication Refill 03/23/2021 Encounter Details Date Type Department Care Team (Late st Contact Info) Description 03/23/2021 Refill [facility] - Family [facility] #2 [place] [address] Jabier Peck MD #[address] [address] Medication Refill Social History Tobacco Use Types [...] CDT Gender Identity Male 05/03/2023 12:44 PM DROP FORGE HAND Sexual Orientation Lesbian or Wolff 05/03/2023 12 :44 PM DROP FORGE HAND COVID-19 Exposure Response Date Recorded In [...] Outpatient Visits 1 week ago Cervical radiculopathy [facility] - Kishore Alonso APN, CENTRAL STERILE TECHNICIAN 4 months ago Dermatitis [facility] - Kishore Alonso APN, CENTRAL STERILE TECHNICIAN 5 months ago Diet-controlled diabetes mellitus (HCC) [facility] - Jabier Aldridge MD 7 months ago Thrombophilia (HCC) [facility] - Kishore Alonso APN, CENTRAL STERILE TECHNICIAN 7 months ago Obstructive sleep apnea syndrome [facility] [place] [place] APN, CENTRAL STERILE TECHNICIAN Upcoming Appointments Future Appointments Tomorrow [facility] RESP ROOM1 [facility] Respiratory Therapy, [facility] In 1 week Sofy Bowen, PT [facility] Rehab at [facility] In 2 weeks Jabier Peck MD [facility] Family Medicine [facility] In 1 month Aria Delong APN, CHLORINATOR [facility] Neurology [facility] In 5 months Jt Morillo MD [facility] Oncology Services, [facility] PILOT BOAT CAPTAIN - Recent and Past Visits Recent Visits Date Type Provider Dept 03/16/21 Office Visit Kishore Prieto APN, RICHARD [facility] 11/16/20 Office Visit Kishore Prieto APN, RICHARD [facility] 10/20/20 Office Visit Jabier Peck MD [facility] 08/20/20 Telemedicine Kishore Prieto APN, RICHARD [facility] [place] 08/06/20 Telemedicine Kishore Prieto APN, RICHARD [facility] [place] 06/22/20 Office Visit Kishore Prieto APN, RICHARD [facility] [place] Showing recent visits within past 460 [...] st Contact Info) Description 07/14/2025 1:30 PM DROP FORGE HAND Office Visit [facility] - Neurology - [place] #2 [place] [address] Aria Delong APRN, CHLORINATOR #2 [place] [address] documented as of this encounter Visit Diagnoses Not on filedocumented in this encounter Additional Health Concerns Infection Onset Date Last Indicated Resolved Time COVID - 19 Confirmed 05/31/2022 05/31/2022 023 12:16 AM DROP FORGE HAND Respiratory Rule Out - RPA 02/26/2023 02/26/2023 0 02/26/2023 11:31 AM CDT COVID - 19 02/26/2023 02/26/2023 03/08/2023 12:1 6 AM CDT documented as of this encounter Care Teams Head Of Sales Relationship Specialty Start Date End Date Jabier Peck MD #[address] [facility] [address] [place] [address] PCP - General Family Medicine 06/22/20 01/16/24 Tad Mcintosh MD [address] [place] [address] PCP - General Family Medicine 01/17/24 Srikanth Adrian MD #[address] [facility] [address] [place] [address] Occupational Therapy Director Cardiovascular Disease - Cardiology 02/02/22 08/06/24 Gloria Martinez MD #2 [facility] [address] [place] [address] Consulting Physician Urology 04/30/24 documented as of this encounter
--- OUTSIDE RECORDS SUMMARY | 2025-05-06 22:24 | XMS_ITS | Encounter Summary ---
Author Organization [facility] Address [address] [place] [address] Phone Care Team Providers Care Registered Dental Assistant Rda Name Role Phone Srikanth Adrian MD Unavailable Tad Romero MD Primary Care Provider [phone] lGoria Martinez MD Unavailable [phone] Reason for Visit * Reason Comments Medication Refill Encounter Details Date Type Department Care Team (Late st Contact Info) Description 03/29/2024 Refill [facility] Family [facility] #2 [place] [address] Kishore Prieto APRN, POULTRY PROCESS WORKER #[address] [address] Medication Refill Social History Tobacco Use Types [...] Gender Identity Male 05/03/2023 12:44 PM GAS LOAD DISPATCHER Sexual Orientation Lesbian or Wolff 05/03/2023 12 :44 PM GAS LOAD DISPATCHER documented as of this encounter Miscellaneous Notes * Telephone Encounter - Cristine Preston RN - 03/30/2024 1:22 PM CDT PCP: Tad Mcintosh MD documented in this encounter Plan of Treatment Upcoming Encounters Date Type Department Care Team (Late st Contact Info) Description 07/14/2025 1:30 PM GAS LOAD DISPATCHER Office [facility] - Neurology - [place] #2 [place] [address] Aria Delong APRN, SIMULATION DEVELOPER #2 [place] [address] documented as of this encounter Visit Diagnoses Not on filedocumented in this encounter Care Teams Registered Dental Assistant Rda Relationship Specialty Start Date End Date Tad Mcintosh MD [address] [place] [address] PCP - General Family Medicine 01/17/24 Srikanth Adrian MD Rfid Specialist Cardiovascular Disease - Cardiology 02/02/22 08/06/24 Gloria Martinez MD #[address] [address] Consulting Physician Urology 04/30/24 documented as of this encounter
--- OUTSIDE RECORDS SUMMARY | 2025-05-06 22:24 | XMS_ITS | Encounter Summary ---
Author Organization [facility] Address [address] [place] [address] Phone Care Team Providers Care Bank Advisor Name Role Phone Jabier Peck MD Primary Care Provider [phone] Srikanth Adrian MD Unavailable Tad Romero MD Primary Care Provider [phone] Gloria Martinez MD Unavailable [phone] Reason for Visit * Reason Onset Date Comments Medication Refill 03/28/2021 Encounter Details Date Type Department Care Team (Late st Contact Info) Description 03/28/2021 Refill [facility] #2 [place] [address] Jabier Peck MD #[address] [address] Medication Refill Social History Tobacco Use Types [...] CDT Gender Identity Male 05/03/2023 12:44 PM COMMITTEE MEMBER Sexual Orientation Lesbian or Wolff 05/03/2023 12 :44 PM COMMITTEE MEMBER COVID-19 Exposure Response Date Recorded In the last month, have you been in contact with someone who was confirmed or suspected to have Coronavirus / COVID-19? No / Unsure 03/31/2021 1:54 PM CDT documented as of this encounter Functional Status * Recert Tracking Question Answer Date of Assessment Author Discipline Shared Addl Info [facility] 03/31/2021 8: 00 PM CDT Sofy Espinosa, PT PT - Current Visit 1 03/31/2021 8:00 PM CDT Sofy Espinosa, PT PT Specific Addl Info 12 POC 03/31/2021 8:00 PM CDT Sofy Espinosa, PT * Evaluation Answer Date of Assessment Author 50 03/31/2021 8:00 PM CDT Sofy Myrick, PT * Evaluation Question Answer Date of Assessment Author Evaluation Billable Minutes 50 03/31/2021 8: 00 PM CDT Sofy Espinosa, PT Evaluation Complexity High 03/31/2021 8:00 PM CDT Sofy Espinosa, PT * Total Billable Minutes Answer Date of Assessment Author 50 03/31/2021 8:00 PM CDT Sofy Myrick, PT * Total Untimed Treatment Minutes Answer Date of Assessment Author 50 03/31/2021 8:00 PM CDT Sofy Myrick, PT documented as of this encounter Miscellaneous Notes [...] Dept 03/16/21 Office Visit Kishore Prieto APN, JOINT CUTTER MACHINE [facility] [place] 11/16/20 Office Visit Kishore Prieto APN, RICHARD [facility] [place] 10/20/20 Office Visit Jabier Peck MD [facility] 08/20/20 Telemedicine Kishore Prieto APN, RICHARD [facility] 08/06/20 Telemedicine Kishore Prieto APN, RICHARD [facility] 06/22/20 Office Visit Kishore Prieto APN, RICHARD [facility] [place] Showing recent visits within past 365 days and meeting all other requirements Future Appointments Date Type Provider Dept 04/08/21 Appointment Jabier Peck MD [facility] [place] Showing future appointments within next 90 days and meeting all other requirements * Telephone Encounter - Yadira York - 03/28/2021 12:47 PM CDT Received a faxed Rx request from pharmacy. Reordered refill medication(s) requested and pended for nurse and physician/MARVA review. Refill encounter routed to nurse [employer]'s pool for processing. documented in this encounter Plan of Treatment Upcoming Encounters Date Type Department Care Team (Late st Contact Info) Description 07/14/2025 1:30 PM COMMITTEE MEMBER Office Visit [facility] - Neurology - [place] #2 [place] [phone] Aria Delong APRN, PROJECT ENGINEERING MANAGER #2 [place] [address] documented as of this encounter Visit Diagnoses Not on filedocumented in this encounter Additional Health Concerns Infection Onset Date Last Indicated Resolved Time COVID - 19 Confirmed 05/31/2022 05/31/2022 023 12:16 AM COMMITTEE MEMBER Respiratory Rule Out - RPA 02/26/2023 02/26/2023 0 02/26/2023 11:31 AM CDT COVID - 19 02/26/2023 02/26/2023 03/08/2023 12:1 6 AM CDT documented as of this encounter Care Teams Bank Advisor Relationship Specialty Start Date End Date Jabier Peck MD #2 [facility] [address] [place] [address] PCP - General Family Medicine 06/22/20 01/16/24 Tad Mcintosh MD [address] [place] [address] PCP - General Family Medicine 01/17/24 Srikanth Adrian MD #2 [facility] [address] [place] [address] Balance Wheel Motion Inspector Cardiovascular Disease - Cardiology 02/02/22 08/06/24 Gloria Martinez MD #2 [facility] [address] [place] [address] Consulting Physician Urology 04/30/24 documented as of this encounter
--- OUTSIDE RECORDS SUMMARY | 2025-05-06 22:25 | XMS_ITS | Encounter Summary ---
Author Organization [facility] Address [address] [place] [address] Phone Care Team Providers Care Rectification Printer Name Role Phone Tad Mcintosh MD Primary Care Provider [phone] Gloria Martinez MD Unavailable [phone] Reason for Visit * Reason Comments Medication Refill Encounter Details Date Type Department Care Team (Late st Contact Info) Description 10/20/2024 Refill [facility] #2 [place] [id number] Jabier Peck MD #[address] [address] Medication Refill Social History Tobacco Use Types [...] CDT Gender Identity Male 05/03/2023 12:44 PM FLOORPERSON Sexual Orientation Lesbian or Wolff 05/03/2023 12 :44 PM FLOORPERSON documented as of this encounter Miscellaneous Notes * Telephone Encounter - Francine Soto RN - 10/21/2024 8:22 AM CDT PCP: Tad Mcintosh MD documented in this encounter Plan of Treatment Upcoming Encounters Date Type Department Care Team (Late st Contact Info) Description 07/14/2025 1:30 PM FLOORPERSON [facility] - [place] #2 [place] [address] Aria Delong APRN, WINDCHILL ADMINISTRATOR #2 [place] [address] documented as of this encounter Visit Diagnoses Not on filedocumented in this encounter Care Teams Rectification Printer Relationship Specialty Start Date End Date Tad Mcintosh MD [address] [place] [address] PCP - General Family Medicine 01/17/24 Gloria Martinez MD #[address] [address] Consulting Physician Urology 04/30/24 documented as of this encounter
--- OUTSIDE RECORDS SUMMARY | 2025-05-06 22:25 | XMS_ITS | Encounter Summary ---
Author Organization [facility] Address [address] [place] [address] Phone Care Team Providers Care Time Clock Inspector Name Role Phone Jabier Peck MD Primary Care Provider [phone] Srikanth Adrian MD Unavailable Tad Romero MD Primary Care Provider [phone] Gloria Martinez MD Unavailable [phone] Reason for Visit * Reason Comments Medication Refill Encounter Details Date Type Department Care Team (Late st Contact Info) Description 03/29/2022 Refill [facility] #2 [place] [address] Jabier Peck MD #[address] [address] Medication Refill Social History Tobacco Use Types [...] Gender Identity Male 05/03/2023 12:44 PM FISH MACHINE FEEDER Sexual Orientation Lesbian or Wolff 05/03/2023 12 :44 PM FISH MACHINE FEEDER COVID-19 Exposure Response Date Recorded In the last 10 days, have tabby snatiago been in contact with someone who was [...] Dept 03/03/22 Office Visit Jabier Peck MD [facility] 02/24/22 Office Visit Kishore Prieto APRN, RICHARD [facility] 01/31/22 Office Visit Kishore Prieto APRN, RICHARD [facility] 12/13/21 Telemedicine Kishore Prieto APRN, RICHARD [facility] 08/01/21 Office Visit Jabier Peck MD [facility] 04/29/21 Office Visit Jabier Peck MD [facility] Showing recent visits within past 365 days and meeting all other requirements Future Appointments Date Type Provider Dept 05/03/22 Appointment Jabier Peck MD [facility] Showing future appointments within next 90 days and meeting all other requirements documented in this encounter Plan of Treatment Upcoming Encounters Date Type Department Care Team (Late st Contact Info) Description 07/14/2025 1:30 PM FISH MACHINE FEEDER Office Visit [facility] - Neurology - [place] #2 [place] [address] Aria Delong, GEAR GRINDING MACHINE OPERATOR, BEACH LIFEGUARD #2 [facility] [place] [address] documented as of this encounter Visit Diagnoses Diagnosis Cervical radiculopathy Brachial neuritis or radiculitis nos documented in this encounter Additional Health Concerns Infection Onset Date Last Indicated Resolved Time COVID - 19 Confirmed 05/31/2022 05/31/2022 023 12:16 AM FISH MACHINE FEEDER Respiratory Rule Out - RPA 02/26/2023 02/26/2023 0 02/26/2023 11:31 AM CDT COVID - 19 02/26/2023 02/26/2023 03/08/2023 12:1 6 AM CDT documented as of this encounter Care Teams Time Clock Inspector Relationship Specialty Start Date End Date Jabier Peck MD #2 [facility] [address] [place] [address] PCP - General Family Medicine 06/22/20 01/16/24 Tad Mcintosh MD [address] [place] [address] PCP - General Family Medicine 01/17/24 Srikanth Adrian MD #2 [facility] [address] [place] [address] Data Analyst Cardiovascular Disease - Cardiology 02/02/22 08/06/24 Gloria Martinez MD #2 [facility] [address] [place] [address] Consulting Physician Urology 04/30/24 documented as of this encounter
--- OUTSIDE RECORDS SUMMARY | 2025-05-06 22:25 | XMS_ITS | Encounter Summary ---
Author Organization [facility] Address [address] [place] [address] Phone Care Team Providers Care Sample Finisher Name Role Phone Jabier Peck MD Primary Care Provider [phone] Srikanth Adrian MD Unavailable Tad Romero MD Primary Care Provider [phone] Gloria Martinez MD Unavailable [phone] Reason for Visit * Reason Comments Medication Refill Encounter Details Date Type Department Care Team (Late st Contact Info) Description 05/11/2021 Refill [facility] #2 [place] [address] Jabier Peck MD #[address] [address] Medication Refill Social History Tobacco Use Types [...] Gender Identity Male 05/03/2023 12:44 PM MANAGER CALL CENTER Sexual Orientation Lesbian or Wolff 05/03/2023 12 :44 PM MANAGER CALL CENTER COVID-19 Exposure Response Date Recorded In the last month, have you been in contact with someone who was confirmed or suspected to have Coronavirus / COVID-19? No / Unsure 05/05/2021 12:33 PM MANAGER CALL CENTER documented as of this encounter Miscellaneous Notes [...] [place] 06/22/20 Office Visit Kishore Prieto APRN, BASS VIOL REPAIRER [facility] Showing recent visits within past 365 days and meeting all other requirements Future Appointments Date Type Provider Dept 08/01/21 Appointment Jabier Peck MD [facility] Showing future appointments within next 90 days and meeting all other requirements GER CALL CENTER documented in this encounter Plan of Treatment Upcoming Encounters Date Type Department Care Team (Late st Contact Info) Description 07/14/2025 1:30 PM MANAGER CALL CENTER Office Visit [facility] - Neurology - [place] #2 [place] [address] Aria Delong APRN, COMMISSIONER OF RELOCATION SERVICES #2 [place] [address] documented as of this encounter Visit Diagnoses Diagnosis Cervical radiculopathy Brachial neuritis or radiculitis nos documented in this encounter Additional Health Concerns Infection Onset Date Last Indicated Resolved Time COVID - 19 Confirmed 05/31/2022 05/31/2022 023 12:16 AM MANAGER CALL CENTER Respiratory Rule Out - RPA 02/26/2023 02/26/2023 0 02/26/2023 11:31 AM CDT COVID - 19 02/26/2023 02/26/2023 03/08/2023 12:1 6 AM CDT documented as of this encounter Care Teams Sample Finisher Relationship Specialty Start Date End Date Jabier Peck MD #2 [facility] [address] [place] [address] PCP - General Family Medicine 06/22/20 01/16/24 Tad Mcintosh MD [address] [place] [address] PCP - General Family Medicine 01/17/24 Srikanth Adrian MD #2 [facility] [address] [place] [address] Manager Game Cardiovascular Disease - Cardiology 02/02/22 08/06/24 Gloria Martinez MD #2 [facility] [address] [place] [address] Consulting Physician Urology 04/30/24 documented as of this encounter
--- OUTSIDE RECORDS SUMMARY | 2025-05-06 22:25 | XMS_ITS | Encounter Summary ---
Author Organization [facility] Address [address] [place] [address] Phone Care Team Providers Care Application Coordinator Name Role Phone Jabier Peck MD Primary Care Provider + [phone] Srikanth Adrian MD Unavailable Tad Romero MD Primary Care Provider [phone] Gloria Martinez MD Unavailable [phone] Reason for Visit * Reason Comments Medication Refill Encounter Details Date Type Department Care Team (Late st Contact Info) Description 04/11/2021 Refill [facility] #2 [place] [phone] Kishore Prieto APRN, PSYCHIATRIC ARNP #[address] [address] Medication Refill Social History Tobacco Use Types [...] Gender Identity Male 05/03/2023 12:44 PM MARKETING DIRECTOR Sexual Orientation Lesbian or Wolff 05/03/2023 12 :44 PM MARKETING DIRECTOR COVID-19 Exposure Response Date Recorded In the last month, have you been in contact with someone who was confirmed or suspected to have Coronavirus / COVID-19? No / Unsure 04/14/2021 12:48 PM CDT documented as of this encounter Functional Status * Recert Tracking Question Answer Date of Assessment Author PT - Current Visit 3 04/14/2021 3:00 PM CDT Shauna Moe, PT PT Specific Addl Info 12 POC 04/14/2021 3:00 PM CDT Shauna Moe, PT * Pre-treatment Question Answer Date of Assessment Author Pain Level 5 04/14/2021 3:00 PM CDT Shauna Lugo, PT * Manual Therapy Question Answer Date of Assessment Author Manual Therapy Billable Minutes 25 3:00 PM CDT Shauna Moe, PT * Evaluation Answer Date of Assessment Author 25 04/14/2021 3:00 PM CDT Shauna Moe, PT * Evaluation Question Answer Date of Assessment Author Evaluation Billable Minutes 04/14/2021 3:00 PM CDT Shauna Moe, PT Evaluation Complexity Re-evaluation 04/14/2021 3:00 PM CDT Shauna Moe, PT * Post-treatment Question Answer Date of Assessment Author Post Pain Level 4 04/14/2021 3:00 PM CDT Shauna Patino, PT * Total Billable Minutes Answer Date of Assessment Author 50 04/14/2021 3:00 PM CDT Shauna Moe, PT * Manual Therapy Answer Date of Assessment Author 25 04/14/2021 3:00 PM CDT Shauna Moe, PT * Total Timed Treatment Minutes Answer Date of Assessment Author 25 04/14/2021 3:00 PM CDT Shauna Moe, PT * Total Untimed Treatment Minutes Answer Date of Assessment Author 25 04/14/2021 3:00 PM CDT Shauna Moe, PT documented as of this encounter Mental Status * Question Answer Entry Date Author Post Pain Level 4 04/14/2021 3:00 PM CDT Kolb sánchez, Shauna E, PT documented in this encounter Miscellaneous Notes * Telephone Encounter - Sabina Holly RN - 04/12/2021 12:20 PM CDT Tonny calling in from [facility]. He is requesting to find [...] st Contact Info) Description 07/14/2025 1:30 PM MARKETING DIRECTOR Office Visit [facility] - Neurology - [place] #2 [place] [address] Aria Delong APRN, SPOOLER OPERATOR AUTOMATIC #2 [place] [address] documented as of this encounter Visit Diagnoses Diagnosis Cervical radiculopathy Brachial neuritis or radiculitis nos documented in this encounter Additional Health Concerns Infection Onset Date Last Indicated Resolved Time COVID - 19 Confirmed 05/31/2022 05/31/2022 023 12:16 AM MARKETING DIRECTOR Respiratory Rule Out - RPA 02/26/2023 02/26/2023 0 02/26/2023 11:31 AM CDT COVID - 19 02/26/2023 02/26/2023 03/08/2023 12:1 6 AM CDT documented as of this encounter Care Teams Application Coordinator Relationship Specialty Start Date End Date Jabier Peck MD #[address] [address] PCP - General Family Medicine 06/22/20 01/16/24 Tad Mcintosh MD [address] [place] [address] PCP - General Family Medicine 01/17/24 Srikanth Adrian MD #[address] [address] Chief Power Dispatcher Cardiovascular Disease - Cardiology 02/02/22 08/06/24 Gloria Martinez MD #2 [facility] [address] [place] [address] Consulting Physician Urology 04/30/24 documented as of this encounter
--- OUTSIDE RECORDS SUMMARY | 2025-05-06 22:25 | XMS_ITS | Encounter Summary ---
Author Organization [facility] Address [address] [place] [address] Phone Care Team Providers Care Divemaster Name Role Phone Jabier Peck MD Primary Care Provider [phone] Srikanth Adrian MD Unavailable Tad Romero MD Primary Care Provider [phone] Gloria Martinez MD Unavailable [phone] Reason for Visit * Reason Comments Medication Refill Encounter Details Date Type Department Care Team (Late st Contact Info) Description 03/24/2022 Refill [facility] #2 [place] [address] Kishore Prieto APRN, BIZTALK ADMINISTRATOR #[address] [address] Medication Refill Social History Tobacco Use Types [...] CDT Gender Identity Male 05/03/2023 12:44 PM PROFESSOR OF FORESTRY Sexual Orientation Lesbian or Wolff 05/03/2023 12 :44 PM PROFESSOR OF FORESTRY COVID-19 Exposure Response Date Recorded In the [...] [facility] 12/13/21 Telemedicine Kishore Prieto APRN, RICHARD [facility] 08/01/21 Office Visit Jabier Peck MD [...] st Contact Info) Description 07/14/2025 1:30 PM PROFESSOR OF FORESTRY Office Visit [facility] - Neurology - [place] #2 [place] [address] Aria Delong, ENDOSCOPY TECH, DEPUTY SHERIFF CHIEF #2 [place] [address] documented as of this encounter Visit Diagnoses Diagnosis Cervical radiculopathy Brachial neuritis or radiculitis nos Lumbar radiculopathy Thoracic or lumbosacral neuritis or radiculitis, unspecified documented in this encounter Additional Health Concerns Infection Onset Date Last Indicated Resolved Time COVID - 19 Confirmed 05/31/2022 05/31/2022 023 12:16 AM PROFESSOR OF FORESTRY Respiratory Rule Out - RPA 02/26/2023 02/26/2023 0 02/26/2023 11:31 AM CDT COVID - 19 02/26/2023 02/26/2023 03/08/2023 12:1 6 AM CDT documented as of this encounter Care Teams Divemaster Relationship Specialty Start Date End Date Jabier Peck MD #[address] [address] PCP - General Family Medicine 06/22/20 01/16/24 Tad Mcintosh MD [address] [place] [address] PCP - General Family Medicine 01/17/24 Srikanth Adrian MD #[address] [address] Warehouse Associate Driver Cardiovascular Disease - Cardiology 02/02/22 08/06/24 Gloria Martinez MD #[address] [address] Consulting Physician Urology 04/30/24 documented as of this encounter
--- OUTSIDE RECORDS SUMMARY | 2025-05-06 22:26 | XMS_ITS | Encounter Summary ---
Author Organization [facility] Address [address] [place] [address] Phone Care Team Providers Care Mechanic Name Role Phone Jabier Peck MD Primary Care Provider [phone] Srikanth Adrian MD Unavailable Tad Romero MD Primary Care Provider [phone] Gloria Martinez MD Unavailable [phone] Reason for Visit * Reason Comments Medication Refill Encounter Details Date Type Department Care Team (Late st Contact Info) Description 06/12/2022 Refill [facility] #2 [place] [address] Jabier Peck MD #[address] [address] Medication Refill Social History Tobacco Use Types [...] CDT Gender Identity Male 05/03/2023 12:44 PM RF MICROWAVE ENGINEER Sexual Orientation Lesbian or Wolff 05/03/2023 12 :44 PM RF MICROWAVE ENGINEER COVID-19 Exposure Response Date Recorded In the last 10 days, have yo u been in contact with someone who was confirmed or suspected to have Coronavirus/COVID-19? Yes 05/31/2022 2:12 PM RF MICROWAVE ENGINEER documented as of this encounter Miscellaneous Notes * Telephone Encounter - Anjali Hartley RN - 06/13/2022 11:16 AM RF MICROWAVE ENGINEER Medication warning. Per nursing clinical judgement, provider [...] 90 days and meeting all other requirements MICROWAVE ENGINEER documented in this encounter Plan of Treatment Upcoming Encounters Date Type Department Care Team (Late st Contact Info) Description 07/14/2025 1:30 PM RF MICROWAVE ENGINEER Office Visit [facility] - Neurology - [place] #2 [place] [address] Aria Delong, STITCH MARKER, LANDSCAPE GARDENER #2 [facility] [place] [address] documented as of this encounter Visit Diagnoses Not on filedocumented in this encounter Additional Health Concerns Infection Onset Date Last Indicated Resolved Time COVID - 19 Confirmed 05/31/2022 05/31/2022 023 12:16 AM RF MICROWAVE ENGINEER Respiratory Rule Out - RPA 02/26/2023 02/26/2023 0 02/26/2023 11:31 AM CDT COVID - 19 02/26/2023 02/26/2023 03/08/2023 12:1 6 AM CDT documented as of this encounter Care Teams Mechanic Relationship Specialty Start Date End Date Jabier Peck MD #2 [facility] [address] [place] [address] PCP - General Family Medicine 06/22/20 01/16/24 Tad Mcintosh MD [address] [place] [address] PCP - General Family Medicine 01/17/24 Srikanth Adrian MD #2 [facility] [address] [place] [address] Margin Analyst Cardiovascular Disease - Cardiology 02/02/22 08/06/24 Gloria Martinez MD #2 [facility] [address] [place] [address] Consulting Physician Urology 04/30/24 documented as of this encounter
--- OUTSIDE RECORDS SUMMARY | 2025-05-06 22:26 | XMS_ITS | Encounter Summary ---
Author Organization [facility] Address [address] [place] [address] Phone Care Team Providers Care Director Hydrogen Storage Engineering Name Role Phone Jabier Peck MD Primary Care Provider [phone] Srikanth Adrian MD Unavailable Tad Romero MD Primary Care Provider [phone] Gloria Martinez MD Unavailable [phone] Reason for Visit * Reason Comments Medication Refill Encounter Details Date Type Department Care Team (Late st Contact Info) Description 05/25/2022 Refill [facility] Oncology Services [address] [place] [address] Jt Morillo MD [address] [place] [address] Medication Refill Social History Tobacco Use Types [...] Gender Identity Male 05/03/2023 12:44 PM ASSISTANT STORE LEADER Sexual Orientation Lesbian or Wolff 05/03/2023 12 :44 PM ASSISTANT STORE LEADER COVID-19 Exposure Response Date Recorded In the last 10 days, have yo u been in contact with someone who was confirmed or suspected to have Coronavirus/COVID-19? No / Unsure 05/10/2022 2:32 PM ASSISTANT STORE LEADER documented as of this encounter Miscellaneous Notes * Telephone Encounter - Aisha Escamilla, RN - 05/26/2022 11:00 AM CST Approved Eliquis per last f/u note. Pt to be on indefinite AC. STANT STORE LEADER documented in this encounter Plan of Treatment Upcoming Encounters Date Type Department Care Team (Late st Contact Info) Description 07/14/2025 1:30 PM ASSISTANT STORE LEADER Office Visit [facility] Neu[facility] #2 [place] [address] Aria Delong APRN, CYLINDER BATCHER #2 [place] [address] documented as of this encounter Visit Diagnoses Diagnosis History of thrombophilia associated with MTHFR mutation documented in this encounter Additional Health Concerns Infection Onset Date Last Indicated Resolved Time COVID - 19 Confirmed 05/31/2022 05/31/2022 023 12:16 AM ASSISTANT STORE LEADER Respiratory Rule Out - RPA 02/26/2023 02/26/2023 0 02/26/2023 11:31 AM CDT COVID - 19 02/26/2023 02/26/2023 03/08/2023 12:1 6 AM CDT documented as of this encounter Care Teams Director Hydrogen Storage Engineering Relationship Specialty Start Date End Date Jabier Peck MD #[address] [address] PCP - General Family Medicine 06/22/20 01/16/24 Tad Mcintosh MD [address] [place] [address] PCP - General Family Medicine 01/17/24 Srikanth Adrian MD #2 [facility] [address] [address] Lever Operator Cardiovascular Disease - Cardiology 02/02/22 08/06/24 Gloria Martinez MD #[address] [facility] [address] [place] [address] Consulting Physician Urology 04/30/24 documented as of this encounter
--- OUTSIDE RECORDS SUMMARY | 2025-05-06 22:27 | XMS_ITS | Encounter Summary ---
Author Organization [facility] Address [address] [place] [address] Phone Care Team Providers Care Site Director Name Role Phone Jabier Peck MD Primary Care Provider [phone] Srikanth Adrian MD Unavailable Tad Romero MD Primary Care Provider [phone] Gloria Martinez MD Unavailable [phone] Reason for Visit * Reason Comments Medication Refill Encounter Details Date Type Department Care Team (Late st Contact Info) Description 05/14/2022 [facility]ill [facility] #2 [place] [address] Jabier Peck MD #[address] [address] Medication Refill Social History Tobacco Use Types [...] Gender Identity Male 05/03/2023 12:44 PM LOOM STARTER Sexual Orientation Lesbian or Wolff 05/03/2023 12 :44 PM LOOM STARTER COVID-19 Exposure Response Date Recorded In the last 10 days, have yo u been in contact with someone who was confirmed or suspected to have Coronavirus/COVID-19? No / Unsure 05/10/2022 2:32 PM LOOM STARTER documented as of this encounter Miscellaneous Notes * Telephone Encounter - Anjali Hartley RN - 05/15/2022 9:34 AM LOOM STARTER PDMP 04/18/2022 #45, 15 day supply. Medication [...] 90 days and meeting all other requirements STARTER documented in this encounter Plan of Treatment Upcoming Encounters Date Type Department Care Team (Late st Contact Info) Description 07/14/2025 1:30 PM LOOM STARTER Office Visit [facility] - Neurology - [place] #2 [place] [address] Aria Delong APRN, DEPARTMENT HEAD COLLEGE OR UNIVERSITY #2 [place] [address] documented as of this encounter Visit Diagnoses Diagnosis Cervical radiculopathy Brachial neuritis or radiculitis nos documented in this encounter Additional Health Concerns Infection Onset Date Last Indicated Resolved Time COVID - 19 Confirmed 05/31/2022 05/31/2022 023 12:16 AM LOOM STARTER Respiratory Rule Out - RPA 02/26/2023 02/26/2023 0 02/26/2023 11:31 AM CDT COVID - 19 02/26/2023 02/26/2023 03/08/2023 12:1 6 AM CDT documented as of this encounter Care Teams Site Director Relationship Specialty Start Date End Date Jabier Peck MD #[address] [address] PCP - General Family Medicine 06/22/20 01/16/24 Tad Mcintosh MD [address] [place] [address] PCP - General Family Medicine 01/17/24 Srikanth Adrian MD #[address] [address] Weaver Hand Cardiovascular Disease - Cardiology 02/02/22 08/06/24 Gloria Martinez MD #[address] [address] Consulting Physician Urology 04/30/24 documented as of this encounter
--- OUTSIDE RECORDS SUMMARY | 2025-05-06 22:27 | XMS_ITS | Encounter Summary ---
Author Organization [facility] Address [address] [place] [address] Phone Care Team Providers Care Business Analytics Intern Name Role Phone Jabier Peck MD Primary Care Provider [phone] Srikanth Adrian MD Unavailable Tad Romero MD Primary Care Provider [phone] Gloria Martinez MD Unavailable [phone] Reason for Visit * Reason Comments Medication Refill Encounter Details Date Type Department Care Team (Late st Contact Info) Description 06/20/2022 Refill [facility] #2 [place] [address] Jabier Peck MD #[address] [address] Medication Refill Social History Tobacco Use Types [...] CDT Gender Identity Male 05/03/2023 12:44 PM MOTEL OPERATOR Sexual Orientation Lesbian or Wolff 05/03/2023 12 :44 PM MOTEL OPERATOR COVID-19 Exposure Response Date Recorded In the last 10 days, have yo u been in contact with someone who was confirmed or suspected to have Coronavirus/COVID-19? Yes 05/31/2022 2:12 PM MOTEL OPERATOR documented as of this encounter Miscellaneous [...] APRN, RICHARD [facility] 01/31/22 Office Visit Kishore Preito APRN, RICHARD [facility] 12/13/21 Telemedicine Kishore Prieto APRN, RICHARD [facility] 08/01/21 Office Visit Jabier Peck MD [facility] Showing recent visits within past 365 days and meeting all other requirements Future Appointments Date Type Provider Dept 06/27/22 Appointment Kishore Prieto APRN, RICHARD [facility] Showing future appointments within next 90 days and meeting all other requirements L OPERATOR documented in this encounter Plan of Treatment Upcoming Encounters Date Type Department Care Team (Late st Contact Info) Description 07/14/2025 1:30 PM MOTEL OPERATOR Office Visit [facility] - Neurology - [place] [address] [place] [address] Aria Delong, ARMORED CAR GUARD AND DRIVER, BAKERY HELPER #2 [place] [address] documented as of this encounter Visit Diagnoses Diagnosis Cervical radiculopathy Brachial neuritis or radiculitis nos documented in this encounter Additional Health Concerns Infection Onset Date Last Indicated Resolved Time COVID - 19 Confirmed 05/31/2022 05/31/2022 023 12:16 AM MOTEL OPERATOR Respiratory Rule Out - RPA 02/26/2023 02/26/2023 0 02/26/2023 11:31 AM CDT COVID - 19 02/26/2023 02/26/2023 03/08/2023 12:1 6 AM CDT documented as of this encounter Care Teams Business Analytics Intern Relationship Specialty Start Date End Date Jabier Peck MD #[address] [address] PCP - General Family Medicine 06/22/20 01/16/24 Tad Mcintosh MD [address] [place] [address] PCP - General Family Medicine 01/17/24 Srikanth Adrian MD #[address] [address] Apple Picking Supervisor Cardiovascular Disease - Cardiology 02/02/22 08/06/24 Gloria Martinez MD #2 [facility] [address] [place] [address] Consulting Physician Urology 04/30/24 documented as of this encounter
--- OUTSIDE RECORDS SUMMARY | 2025-05-06 22:27 | XMS_ITS | Encounter Summary ---
Author Organization [facility] Address [address] [place] [address] Phone Care Team Providers Care Numerical Control Router Operator Name Role Phone Jabier Peck MD Primary Care Provider [phone] Srikanth Adrian MD Unavailable Tad Romero MD Primary Care Provider [phone] Gloria Martinez MD Unavailable [phone] Reason for Visit * Reason Comments Medication Refill Encounter Details Date Type Department Care Team (Late st Contact Info) Description 06/21/2022 Refill [facility] [place] [address] Jabier Peck MD #[address] [address] Medication Refill Social History Tobacco Use Types [...] CDT Gender Identity Male 05/03/2023 12:44 PM WORK FORCE ADVISOR Sexual Orientation Lesbian or Wolff 05/03/2023 12 :44 PM WORK FORCE ADVISOR COVID-19 Exposure Response Date Recorded In the last 10 days, have tabby u been in contact with someone who was confirmed or suspected to have Coronavirus/COVID-19? Yes 05/31/2022 2:12 PM WORK FORCE ADVISOR documented as of this encounter Miscellaneous Notes * Telephone Encounter - Libertad Shearer, RN - 06/21/2022 1:33 PM CST Name from pharmacy: [facility] Will file in chart as: [facility] Caps[facility] The original prescription was discontinued on 02/24/2022 by Kishore Prieto APRN, SHED HAND for thefollowing reason: Med List Clean Up. Renewing this prescription may not be appropriate. FORCE ADVISOR documented in this encounter Plan of Treatment Upcoming Encounters Date Type Department Care Team (Late st Contact Info) Description 07/14/2025 1:30 PM WORK FORCE ADVISOR Office Visit [facility] - Neurology [facility] [place] [address] Aria Delong APRN, ECHO VASCULAR TECH #2 [place] [address] documented as of this encounter Visit Diagnoses Not on filedocumented in this encounter Additional Health Concerns Infection Onset Date Last Indicated Resolved Time Respiratory Rule Out - RPA 02/26/2023 02/26/2023 0 02/26/2023 11:31 AM CDT COVID - 19 02/26/2023 02/26/2023 03/08/2023 12:1 6 AM CDT documented as of this encounter Care Teams Numerical Control Router Operator Relationship Specialty Start Date End Date Jabier Peck MD #[address] [address] PCP - General Family Medicine 06/22/20 01/16/24 Tad Mcintosh MD [address] [place] [address] PCP - General Family Medicine 01/17/24 Srikanth Adrian MD #2 [facility] [address] [place] [address] Web Architect Cardiovascular Disease - Cardiology 02/02/22 08/06/24 Gloria Martinez MD #2 [facility] [address] [place] [address] Consulting Physician Urology 04/30/24 documented as of this encounter
--- OUTSIDE RECORDS SUMMARY | 2025-05-06 22:27 | XMS_ITS | Encounter Summary ---
Author Organization [facility] Address [address] [place] [address] Phone Care Team Providers Care Steam Roller Operator Name Role Phone Jabier Peck MD Primary Care Provider [phone] Srikanth Adrian MD Unavailable Tad Romero MD Primary Care Provider [phone] Gloria Martinez MD Unavailable [phone] Reason for Visit * Reason Comments Medication Refill Encounter Details Date Type Department Care Team (Late st Contact Info) Description 07/28/2022 Refill [facility] #2 [place] [address] Jabier Peck MD #[address] [address] Medication Refill Social History Tobacco Use Types [...] CDT Gender Identity Male 05/03/2023 12:44 PM SWITCHBOX ASSEMBLER Sexual Orientation Lesbian or Wolff 05/03/2023 12 :44 PM SWITCHBOX ASSEMBLER COVID-19 Exposure Response Date Recorded In the last 10 days, have tabby u been in contact with someone who was confirmed or suspected to have Coronavirus/COVID-19? No / Unsure 07/20/2022 2:30 PM SWITCHBOX ASSEMBLER documented as of this encounter Miscellaneous [...] [facility] 12/13/21 Telemedicine Kishore Prieto APRN, RICHARD [facility] [place] 08/01/21 Office Visit Jabier Peck MD [facility] [place] Showing recent visits within past 365 days and meeting all other requirements Future Appointments No visits were found meeting these conditions. Showing future appointments within next 90 days and meeting all other requirements CHBOX ASSEMBLER documented in this encounter Plan of Treatment Upcoming Encounters Date Type Department Care Team (Late st Contact Info) Description 07/14/2025 1:30 PM SWITCHBOX ASSEMBLER Office Visit [facility] - Neurology - [place] [address] [place] [address] Aria Delong, CIRCLE SHEAR OPERATOR, PROGRAM CLINICIAN #2 [place] [address] documented as of this encounter Visit Diagnoses Diagnosis Cervical radiculopathy Brachial neuritis or radiculitis nos documented in this encounter Additional Health Concerns Infection Onset Date Last Indicated Resolved Time Respiratory Rule Out - RPA 02/26/2023 02/26/2023 0 02/26/2023 11:31 AM CDT COVID - 19 02/26/2023 02/26/2023 03/08/2023 12:1 6 AM CDT documented as of this encounter Care Teams Steam Roller Operator Relationship Specialty Start Date End Date Jabier Peck MD #2 [facility] [address] [place] [address] PCP - General Family Medicine 06/22/20 01/16/24 Tad Mcintosh MD [address] [place] [address] PCP - General Family Medicine 01/17/24 Srikanth Adrian MD #2 [facility] [address] [place] [address] Developer Evangelist Cardiovascular Disease - Cardiology 02/02/22 08/06/24 Gloria Martinez MD #2 [facility] [address] [place] [address] Consulting Physician Urology 04/30/24 documented as of this encounter
--- OUTSIDE RECORDS SUMMARY | 2025-05-06 22:28 | XMS_ITS | Encounter Summary ---
Author Organization [facility] Address [address] [place] [address] Phone Care Team Providers Care Quill Machine Operator Name Role Phone Jabier Peck MD Primary Care Provider [phone] Srikanth Adrian MD Unavailable Tad Romero MD Primary Care Provider [phone] Gloria Martinez MD Unavailable [phone] Reason for Visit * Reason Comments Medication Refill Encounter Details Date Type Department Care Team (Late st Contact Info) Description 10/24/2022 Refill [facility] Family [facility] #2 [place] [address] Jabier Peck MD #[address] [address] Medication Refill Social History Tobacco Use Types [...] CDT Gender Identity Male 05/03/2023 12:44 PM APRON WORKER Sexual Orientation Lesbian or Wolff 05/03/2023 12 :44 PM APRON WORKER documented as of this encounter Miscellaneous [...] [facility] 03/03/22 Office Visit Jabier Peck MD [facility] 02/24/22 Office Visit Kishore Prieto APRN, RICHARD [facility] 01/31/22 Office Visit Kishore Prieto APRN, RICHARD [facility] 12/13/21 Telemedicine Kishore Prieto APRN, RICHARD [facility] [place] Showing recent visits within past 365 days and meeting all other requirements Future Appointments Date Type Provider Dept 11/21/22 Appointment Jabier Peck MD [facility] Showing future appointments within next 90 days and meeting all other requirements documented in this encounter Plan of Treatment Upcoming Encounters Date Type Department Care Team (Late st Contact Info) Description 07/14/2025 1:30 PM APRON WORKER [facility] - [place] [address] [place] [address] Aria Delong APRN, BLIND INSTALLER #2 [place] [address] documented as of this encounter Visit Diagnoses Not on filedocumented in this encounter Additional Health Concerns Infection Onset Date Last Indicated Resolved Time Respiratory Rule Out - RPA 02/26/2023 02/26/2023 0 02/26/2023 11:31 AM CDT COVID - 19 02/26/2023 02/26/2023 03/08/2023 12:1 6 AM CDT documented as of this encounter Care Teams Quill Machine Operator Relationship Specialty Start Date End Date Jabier Peck MD #2 [facility] [address] [place] [address] PCP - General Family Medicine 06/22/20 01/16/24 Tad Mcintosh MD [address] [place] [address] PCP - General Family Medicine 01/17/24 Srikanth Adrian MD #2 [facility] [address] [place] [address] Briquette Operator Cardiovascular Disease - Cardiology 02/02/22 08/06/24 Gloria Martinez MD #2 [facility] [address] [place] [address] Consulting Physician Urology 04/30/24 documented as of this encounter
--- OUTSIDE RECORDS SUMMARY | 2025-05-06 22:28 | XMS_ITS | Encounter Summary ---
Author Organization [facility] Address [address] [place] [address] Phone Care Team Providers Care Gas Worker Name Role Phone Jabier Peck MD Primary Care Provider [phone] Srikanth Adrian MD Unavailable Tad Romero MD Primary Care Provider [phone] Gloria Martinez MD Unavailable [phone] Reason for Visit * Reason Onset Date Comments Medication Refill Requesting new referral to [facility] 11/10/2022 Encounter Details Date Type Department Care Team (Late st Contact Info) Description 11/10/2022 Refill [facility] - Family Medicine - [place] #2 [place] [id number] Jabier Peck MD #[address] [address] Medication Refill; Requesting new referral to [facility] Social History Tobacco Use Types [...] CDT Gender Identity Male 05/03/2023 12:44 PM SHADING PAINTER Sexual Orientation Lesbian or Wolff 05/03/2023 12 :44 PM SHADING PAINTER documented as of this encounter Miscellaneous Notes * Telephone Encounter - Nikky Irby - 11/10/2022 1:42 PM CDT RFC: Tae Kent is requesting a new referral to [facility]. . Please call Tae (relationship to patient ) back regarding above referenced patient. Patient's Provider [...] [place] 12/13/21 Telemedicine Kishore Prieto APRN, RICHARD [facility] [place] Showing recent visits [...] [place] 12/13/21 Telemedicine Kishore Prieto APRN, RICHARD [facility] [place] Showing recent visits [...] st Contact Info) Description 07/14/2025 1:30 PM SHADING PAINTER Office Visit [facility] - Neurology - [place] #[address] [place] [address] Aria Delong APRN, RUG SCRATCHER #[address] [facility] [place] [address] documented as of this encounter Visit Diagnoses Diagnosis Cervical radiculopathy Brachial neuritis or radiculitis nos documented in this encounter Additional Health Concerns Infection Onset Date Last Indicated Resolved Time Respiratory Rule Out - RPA 02/26/2023 02/26/2023 0 02/26/2023 11:31 AM CDT COVID - 19 02/26/2023 02/26/2023 03/08/2023 12:1 6 AM CDT documented as of this encounter Care Teams Gas Worker Relationship Specialty Start Date End Date Jabier Peck MD #2 [facility] [address] [place] [address] PCP - General Family Medicine 06/22/20 01/16/24 Tad Mcintosh MD [address] [place] [address] PCP - General Family Medicine 01/17/24 Srikanth Adrian MD #2 [facility] [address] [place] [address] Gasoline Finisher Cardiovascular Disease - Cardiology 02/02/22 08/06/24 Gloria Martinez MD #2 [facility] [address] [place] [address] Consulting Physician Urology 04/30/24 documented as of this encounter
--- OUTSIDE RECORDS SUMMARY | 2025-05-06 22:28 | XMS_ITS | Encounter Summary ---
Author Organization [facility] Address [address] [place] [address] Phone Care Team Providers Care Technology Strategist Name Role Phone Jabier Peck MD Primary Care Provider [phone] Srikanth Adrian MD Unavailable Tad Romero MD Primary Care Provider [phone] Gloria Martinez MD Unavailable [phone] Encounter Details Date Type Department Care Team (Late st Contact Info) Description 01/04/2023 Telephone [facility] Medical/Surgical 3 Surge Waiver [address] [place] [address] Jabier Peck MD #[address] [address] Social History Tobacco Use Types Packs/Day Years [...] CDT Gender Identity Male 05/03/2023 12:44 PM EMBEDDED DEVELOPER Sexual Orientation Lesbian or Wolff 05/03/2023 12 :44 PM EMBEDDED DEVELOPER documented as of this encounter Miscellaneous Notes * Telephone Encounter - Jabier Peck MD - 01/14/2023 1:40 PM CDT Thanks for the update! documented in this encounter Plan of Treatment Upcoming Encounters Date Type Department Care Team (Late st Contact Info) Description 07/14/2025 1:30 PM EMBEDDED DEVELOPER Office Visit [facility] - Neurology - [place] #[address] [place] [address] Aria Delong APRN, FEDERAL AIR MARSHAL #2 [place] [address] documented as of this encounter Visit Diagnoses Not on filedocumented in this encounter Additional Health Concerns Infection Onset Date Last Indicated Resolved Time Respiratory Rule Out - RPA 02/26/2023 02/26/2023 0 02/26/2023 11:31 AM CDT COVID - 19 02/26/2023 02/26/2023 03/08/2023 12:1 6 AM CDT documented as of this encounter Care Teams Technology Strategist Relationship Specialty Start Date End Date Jabier Peck MD #[address] [address] PCP - General Family Medicine 06/22/20 01/16/24 Tad Mcintosh MD [address] [place] [address] PCP - General Family Medicine 01/17/24 Srikanth Adrian MD #[address] [address] Supervisor Powder And Primer Canning Cardiovascular Disease - Cardiology 02/02/22 08/06/24 Gloria Martinez MD #2 [facility] [address] [address] Consulting Physician Urology 04/30/24 documented as of this encounter
--- OUTSIDE RECORDS SUMMARY | 2025-05-06 22:28 | XMS_ITS | Encounter Summary ---
Author Organization [facility] Address [address] [place] [address] Phone Care Team Providers Care Automatic Grinder Operator Name Role Phone Jabier Peck MD Primary Care Provider [phone] Srikanth Adrian MD Unavailable Tad Romero MD Primary Care Provider [phone] Gloria Martinez MD Unavailable [phone] Reason for Visit * Reason Onset Date Comments Advice Only 12/18/2022 Encounter Details Date Type Department Care Team (Late st Contact Info) Description 12/18/2022 Telephone [facility] [address] [place] [address] Jabier Peck MD #[address] [address] Advice Only Social History Tobacco Use Types [...] CDT Gender Identity Male 05/03/2023 12:44 PM POCKET MAKER Sexual Orientation Lesbian or Wolff 05/03/2023 12 :44 PM POCKET MAKER documented as of this encounter Miscellaneous [...] st Contact Info) Description 07/14/2025 1:30 PM POCKET MAKER Office Visit [facility] - Neurology [facility] #2 [place] [address] Aria Delong, ADULT FAMILY HOME PROGRAM MANAGER, CUSTOMER DEVELOPMENT REPRESENTATIVE #2 [place] [address] documented as of this encounter Visit Diagnoses Not on filedocumented in this encounter Additional Health Concerns Infection Onset Date Last Indicated Resolved Time Respiratory Rule Out - RPA 02/26/2023 02/26/2023 0 02/26/2023 11:31 AM CDT COVID - 19 02/26/2023 02/26/2023 03/08/2023 12:1 6 AM CDT documented as of this encounter Care Teams Automatic Grinder Operator Relationship Specialty Start Date End Date Jabier Peck MD #[address] [address] PCP - General Family Medicine 06/22/20 01/16/24 Tad Mcintosh MD [address] [place] [address] PCP - General Family Medicine 01/17/24 Srikanth Adrian MD #[address] [address] Electrotype Molder Cardiovascular Disease - Cardiology 02/02/22 08/06/24 Gloria Martinez MD #[address] [facility] [address] [place] [address] Consulting Physician Urology 04/30/24 documented as of this encounter
--- OUTSIDE RECORDS SUMMARY | 2025-05-06 22:28 | XMS_ITS | Encounter Summary ---
Author Organization [facility] Address [address] [place] [address] Phone Care Team Providers Care Drapery Rod Assembler Name Role Phone Jabier Peck MD Primary Care Provider + [phone] Srikanth Adrian MD Unavailable Tad Romero MD Primary Care Provider [phone] Gloria Martinez MD Unavailable [phone] Reason for Visit * Reason Comments Medication Refill Encounter Details Date Type Department Care Team (Late st Contact Info) Description 07/10/2022 Refill [facility] #2 [place] [address] Jabier Peck MD #[address] [address] Medication Refill Social History Tobacco Use Types [...] Gender Identity Male 05/03/2023 12:44 PM MOLDER AUTOMOBILE CARPETS Sexual Orientation Lesbian or Wolff 05/03/2023 12 :44 PM MOLDER AUTOMOBILE CARPETS documented as of this encounter Miscellaneous Notes * Telephone Encounter - Anjali Hartley RN - 07/10/2022 12:34 PM MOLDER AUTOMOBILE CARPETS Refill requested too soon. ER AUTOMOBILE CARPETS documented in this encounter Plan of Treatment Upcoming Encounters Date Type Department Care Team (Late st Contact Info) Description 07/14/2025 1:30 PM MOLDER AUTOMOBILE CARPETS Office Visit [facility] - Neurology - [place] #2 [place] [address] Aria Delong APRN, BEAMER HELPER #2 [place] [address] documented as of this encounter Visit Diagnoses Not on filedocumented in this encounter Additional Health Concerns Infection Onset Date Last Indicated Resolved Time Respiratory Rule Out - RPA 02/26/2023 02/26/2023 0 02/26/2023 11:31 AM CDT COVID - 19 02/26/2023 02/26/2023 03/08/2023 12:1 6 AM CDT documented as of this encounter Care Teams Drapery Rod Assembler Relationship Specialty Start Date End Date Jabier Peck MD #[address] [address] PCP - General Family Medicine 06/22/20 01/16/24 Tad Mcintosh MD [address] [place] [address] PCP - General Family Medicine 01/17/24 Srikanth Adrian MD #[address] [address] Grocery Supervisor Cardiovascular Disease - Cardiology 02/02/22 08/06/24 Gloria Martinez MD #2 [facility], [address] [address] Consulting Physician Urology 04/30/24 documented as of this encounter
--- OUTSIDE RECORDS SUMMARY | 2025-05-06 22:28 | XMS_ITS | Encounter Summary ---
Author Organization [facility] Address [address] [place] [address] Phone Care Team Providers Care Automotive Maintenance Technician Name Role Phone Jabier Peck MD Primary Care Provider [phone] Srikanth Adrian MD Unavailable Tad Romero MD Primary Care Provider [phone] Gloria Martinez MD Unavailable [phone] Reason for Visit * Reason Comments Medication Refill Encounter Details Date Type Department Care Team (Late st Contact Info) Description 08/30/2022 Refill [facility] [address] [place] [address] Jabier Peck MD #[address] [address] Medication Refill Social History Tobacco Use Types [...] CDT Gender Identity Male 05/03/2023 12:44 PM SUMMER ANALYST Sexual Orientation Lesbian or Wolff 05/03/2023 12 :44 PM SUMMER ANALYST COVID-19 Exposure Response Date Recorded In the last 10 days, have tabby u been in contact with someone who was confirmed or suspected to have Coronavirus/COVID-19? No / Unsure 08/21/2022 12:53 PM SUMMER ANALYST documented as of this encounter Miscellaneous [...] 12/13/21 Telemedicine Kishore Prieto APRN, RICHARD [facility] [place] Showing recent visits within past 365 days and meeting all other requirements Future Appointments Date Type Provider Dept 11/21/22 Appointment Jabier Peck MD [facility] Showing future appointments within next 90 days and meeting all other requirements documented in this encounter Plan of Treatment Upcoming Encounters Date Type Department Care Team (Late st Contact Info) Description 07/14/2025 1:30 PM SUMMER ANALYST Office Visit [facility] - Neurology - [place] [address] [place] [address] Aria Delong APRN, PATIENT ACCOUNTING REPRESENTATIVE [address] [place] [address] documented as of this encounter Visit Diagnoses [...] as of this encounter Care Teams Automotive Maintenance Technician Relationship Specialty Start Date End Date Jabier Peck MD #[address] [address] PCP - General Family Medicine 06/22/20 01/16/24 Tad Mcintosh MD [address] [place] [address] PCP - General Family Medicine 01/17/24 Srikanth Adrian MD #[address] [address] Call Center Representative Cardiovascular Disease - Cardiology 02/02/22 08/06/24 Gloria Martinez MD #[address] [address] Consulting Physician Urology 04/30/24 documented as of this encounter
--- OUTSIDE RECORDS SUMMARY | 2025-05-06 22:28 | XMS_ITS | Encounter Summary ---
Author Organization [facility] Address [address] [place] [address] Phone Care Team Providers Care Prepleater Name Role Phone Jabier Peck MD Primary Care Provider [phone] Srikanth Adrian MD Unavailable Tad Romero MD Primary Care Provider [phone] Gloria Martinez MD Unavailable [phone] Reason for Visit * Reason Comments Medication Refill Encounter Details Date Type Department Care Team (Late st Contact Info) Description 08/19/2022 Refill [facility] Oncology [facility] [address] [place] [id number] Jt Morillo MD [address] [place] [address] Medication Refill Social History Tobacco Use Types [...] CDT Gender Identity Male 05/03/2023 12:44 PM MASH TUB COOKER Sexual Orientation Lesbian or Wolff 05/03/2023 12 :44 PM MASH TUB COOKER COVID-19 Exposure Response Date Recorded In the last 10 days, have yo u been in contact with someone who was confirmed or suspected to have Coronavirus/COVID-19? No / Unsure 08/21/2022 12:53 PM MASH TUB COOKER documented as of this encounter Functional Status * Question Answer Date of Assessment Author BP 118/78 08/21/2022 3:08 PM MASH TUB COOKER Maryann Saab MA Temp 98 08/21/2022 3:08 PM MASH TUB COOKER Maryann Saab MA Temp src Temporal 08/21/2022 3:08 PM MASH TUB COOKER Maryann Saab MA Pulse 77 08/21/2022 3:08 PM MASH TUB COOKER Maryann Saab MA Resp 16 08/21/2022 3:08 PM MASH TUB COOKER Maryann Saab MA SpO2 97 08/21/2022 3:08 PM MASH TUB COOKER Maryann Saab MA Height 69 08/21/2022 3:08 PM MASH TUB COOKER Maryann Saab MA Weight 3984 08/21/2022 3:08 PM Maryann Hatfield MA * BSA (Calculated - sq m) Answer Date of Assessment Author 2.34 08/21/2022 3:08 PM Maryann Cooper MA * BMI (Calculated) Answer Date of Assessment Author 36.8 08/21/2022 3:08 PM Maryann Cooper MA * BMI (Calculated) Answer Date of Assessment Author 36.8 08/21/2022 3:08 PM Maryann Cooper MA documented as of this encounter Mental Status * Question Answer Entry Date Author BP 118/78 08/21/2022 3:08 PM Maryann Hatfield MA Temp 98 08/21/2022 3:08 PM MASH TUB COOKER Maryann Saab MA Pulse 77 08/21/2022 3:08 PM MASH TUB COOKER Maryann Saab MA SpO2 97 08/21/2022 3:08 PM MASH TUB COOKER Maryann Saab MA Weight 3984 08/21/2022 3:08 PM MASH TUB COOKER Maryann Saab MA documented in this encounter Miscellaneous Notes * Telephone Encounter - Aisha Escamilla RN - 08/21/2022 12:02 PM CST Approved Eliquis per last f/u note. TUB COOKER documented in this encounter Plan of Treatment Upcoming Encounters Date Type Department Care Team (Late st Contact Info) Description 07/14/2025 1:30 PM MASH TUB COOKER Office Visit [facility] - Neurology - [place] [address] [place] [address] Aria Delong APRN, PROP CUTTER [address] [place] [address] documented as of this encounter Visit Diagnoses Diagnosis History of thrombophilia associated with MTHFR mutation documented in this encounter Additional Health Concerns Infection Onset Date Last Indicated Resolved Time Respiratory Rule Out - RPA 02/26/2023 02/26/2023 0 02/26/2023 11:31 AM CDT COVID - 19 02/26/2023 02/26/2023 03/08/2023 12:1 6 AM CDT documented as of this encounter Care Teams Prepleater Relationship Specialty Start Date End Date Jabier Peck MD #[address] [address] PCP - General Family Medicine 06/22/20 01/16/24 Tad Mcintosh MD [address] [place] [address] PCP - General Family Medicine 01/17/24 Srikanth Adrian MD #[address] [address] Social Work Therapist Cardiovascular Disease - Cardiology 02/02/22 08/06/24 Gloria Martinez MD #[address] [address] Consulting Physician Urology 04/30/24 documented as of this encounter
--- OUTSIDE RECORDS SUMMARY | 2025-05-06 22:29 | XMS_ITS | Clinical Summary ---
Author Organization [facility] Address [address] [place] [address] Care Team Providers Care Site Acquisition Manager Name Role Phone Tad Mcintosh DO [...] every day DX:E11.65 insulin dependent 1 each 08/10/19 18 Active blood glucose diagnostic (ONETOUCH ULTRA TEST) strip 100 each by other route as directed. USE TO TEST FOUR TIMES DAILY 300 each 07/08/19 19 Active lancets misc USE TO TEST FOUR TIMES DAIILY 300 each 07/08/19 19 Active ARIPiprazole (ABILIFY) 20 mg tablet Take by mouth nightly 07/31/20 19 Active VENTOLIN HFA 90 mcg/actuation inhaler INHALE TWO PUFFS BY MOUTH EVERY 4 HOURS NEEDED FOR WHEEZING 18 g 2 04/14/20 Active traZODone (DESYREL) 100 mg tablet Take [...] total) by mouth daily 90 tablet 3 01/13/20 Active montelukast (SINGULAIR) 10 mg tablet Take 1 tablet (10 mg total) by mouth nightly 90 tablet 2 02/04/20 Active gabapentin (NEURONTIN) 600 mg tabletIndications: Neuropathy Take 1 tablet (600 mg total) by mouth 4 (four) times a day 120 tablet 03/04/20 Active rOPINIRole (REQUIP) 2 mg tablet Take 1 tablet (2 mg total) by mouth nightly 180 tablet 3 03/09/20 Active atorvastatin (LIPITOR) 80 mg tabletIndications: Mixed hyperlipidemia Take 1 tablet (80 mg total) by mouth nightly 90 tablet 1 04/13/20 Active buPROPion XL (WELLBUTRIN XL) 300 mg 24 hr tablet Take 1 tablet once daily 05/21/20 Active Linzess 145 mcg capsule Take 1 capsule (145 mcg total) by mouth daily 30 capsule 06/17/20 Active fosinopriL (MONOPRIL) 40 mg tabletIndications: Essential hypertension Take 1 tablet (40 mg total) by mouth daily 30 tablet 06/17/20 Active methocarbamoL (ROBAXIN) 750 mg tablet Take 1 tablet (750 mg total) by mouth 3 (three) times a day as needed 07/20/19 Active Wixela Inhub 500-50 mcg/dose diskus inhaler TAKE 1 PUFF BY INHALATION IN THE MORNING AND AT BEDTIME. 08/06/19 23 Active fluticasone propionate (FLONASE) 50 mcg/actuation nasal spray SPRAY 1-2 SPRAYS INTO EACH NOSTRIL EVERY DAY DIRECTED 08/22/19 23 Active naloxone (NARCAN) 4 mg/actuation spray,non-aerosol 08/10/20 22 Active cetirizine (ZyrTEC) 10 mg tablet Take 1 tablet (10 mg total) by mouth daily Active pseudoephedrine ER (SUDAFED) 120 mg 12 hr tablet Take 1 tablet (120 mg total) by mouth as needed Active hydrOXYzine (VISTARIL) 25 mg capsule Take 1 capsule (25 mg total) by mouth 3 (three) times a day as needed 01/24/20 23 Active ARIPiprazole (ABILIFY) 5 mg tablet Take 1 tablet (5 mg total) by mouth every evening 05/29/20 24 Active OXcarbazepine (TRILEPTAL) 600 mg tablet Take 1 tablet (600 mg total) by mouth 2 (two) times a day 05/29/20 24 Active torsemide (DEMADEX) 20 mg tablet Take 1 tablet (20 mg total) by mouth every morning 05/13/20 24 Active omeprazole (PriLOSEC) 20 mg capsule Take 1 capsule (20 mg total) by mouth 2 (two) times a day Active HYDROcodone-acetam inophen (NORCO) 10-325 mg per tabletIndications: Pain Take 1 tablet by mouth every 6 (six) hours as needed for pain for up to 10 doses 10 tablet 07/10/19 25 Active Additional Information Patient taking differently:1 tablet oral2 times daily, Indications: Pain, Reported on 04/29/2025 chlorhexidine (PERIDEX) 0.12 % oral rinseIndications:O ral ulcer Swish and spit 15 mL 3 times a day 1350 mL 04/29/20 25 025 Active lidocaine viscous (XYLOCAINE) 2 % solutionIndication s:Oral ulcer Take 5 mL by mouth every 4 (four) hours as needed (mouth pain) 250 mL 04/29/20 25 025 Active dexAMETHasone oral liquid 0.5 mg/5 mLIndications:Oral ulcer Take 10 mL (1 mg total) by mouth 3 (three) times a day 900 mL 04/29/20 25 025 Active Xtampza ER 9 mg capsule,jackie,E R 12hr tmprr TAKE 1 CAPSULE EVERY 12 HOURS BY MOUTH WITH FOOD 05/30/20 025 Discontin ued(Patie nt Reported) Active Problems Problem Noted Date Diagnosed Date Oral ulcer 04/29/2025 Assessment & Plan (04/29/2025 11:13 AM CLAIMS ANALYST): Prescription medications sent to Pharmacy today: Dexamethasone mouth rinse and spits before meals Peridex mouth rinse and spits after meals Viscous lidocaine as needed Follow up in 6 weeks if no improvement will recommend biopsy Keratosis 07/17/2024 Assessment & Plan (07/17/2024 1:09 PM CLAIMS ANALYST): Continue increased hydration Avoid acidic foods and fluids for one more week Thrombophilia 01/25/2023 Palpitations 11/22/2022 Chest pain 07/31/2022 Essential hypertension 07/31/2022 Tongue lesion 04/28/2020 Assessment & Plan (06/26/2024 9:29 AM CLAIMS ANALYST): Has pain medication prescribed by Manasa Cortes at [facility] will confirm use of [place] after surgery Stop Eliquis for 5 days before and after Excision of left lateral and right lateral tongue lesions with repair Risks and complications: Anesthesia, bleeding, infection, benign versus malignant pathology, recurrence of lesion, injury to arteries, nerves and veins, scarring and need for further treatment Assessment & Plan (04/28/2020 1:41 PM CLAIMS ANALYST): Speak to [facility] about smoothing out right first [...] week Assessment & Plan (04/28/2020 1:41 PM CLAIMS ANALYST): Speak to [facility] about smoothing out right first [...] (04/18/2019): Added automatically from request for surgery [id number] Hematochezia 03/04/2019 Overview (03/04/2019): Added automatically from request for surgery [id number] Family history of colon cancer 03/04/2019 Overview (03/04/2019): Added automatically from request for surgery [id number] 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 Finklea level is in process. Will hold at [...] recommended Assessment & Plan (07/08/2019 3:43 PM CLAIMS ANALYST): Healthy, low carbohydrate lifestyle and exercise for [...] hydration Assessment & Plan (08/10/2017 1:23 PM CLAIMS ANALYST): s/p Right inferior parathyroidectomy - 08/10/2016 pre [...] renal Assessment & Plan (05/01/2017 10:36 PM CLAIMS ANALYST): s/p Right inferior parathyroidectomy - 08/10/2016 pre [...] future Assessment & Plan (08/10/2017 1:24 PM CLAIMS ANALYST): Recheck levels Assessment & Plan (12/17/2016 8:01 AM CDT): Recheck levels Type 2 diabetes mellitus wit h stage 3 chronic kidney disease, with long-term current use of insulin 12/11/2016 Assessment & Plan (07/08/2019 3:42 PM CLAIMS ANALYST): A1c 5.5% Jun 2019 on no medications. [...] needed. Assessment & Plan (08/10/2017 1:26 PM CLAIMS ANALYST): - A1c today 5.5 % - due [...] months. Assessment & Plan (05/01/2017 10:36 PM CLAIMS ANALYST): - reviewed BS log - BS well [...] statin. Assessment & Plan (08/10/2017 1:23 PM CLAIMS ANALYST): On statin therapy - advised to increase physical activity - advised low fat/chol diet and avoid greasy and junk food Assessment & Plan (05/01/2017 10:37 PM CLAIMS ANALYST): On statin therapy - advised to increase [...] activity Assessment & Plan (08/10/2017 1:24 PM CLAIMS ANALYST): BP well controlled, chronic At goal advised [...] Had sleep study with Dr. Su in 2015-IMPRESSION: The above polysomnography reveals evidence of: 1. [...] f/u with him Explained the risk of group home MAK and encourage use of CPAP or [...] quit smoking so they can encourage you. Actuarial Manager referral placed. Class 2 severe obesity due t o excess calories with serious comorbidity and body mass index (BMI) of 37.0 to 37.9 in adult 08/16/2012 Overview (09/22/2016): Obesity Assessment & Plan (12/25/2019 1:57 PM CDT): Healthy, low carbohydrate lifestyle and exercise for 150min/week recommended Referral for security tester placed. Assessment & Plan (10/16/2019 11:40 AM [...] greens, fat-free milk, cottage cheese, nuts like wnecwdz-mjxzfop-szgmwyz, protein bars with 10-15 g of protein [...] discussed. Assessment & Plan (05/01/2017 10:37 PM CLAIMS ANALYST): Obesity is improving with treatment. Discussed the [...] time. Assessment & Plan (05/01/2017 10:37 PM CLAIMS ANALYST): Hypertension is improving with treatment. Continue current [...] 05/22/2017 Overview (09/22/2016): Acute upper respiratory infection Encounters Date Type Department Care Team Description 04/29/2025 9:45 AM CLAIMS ANALYST Office Visit [facility] - [address] [place] [address] Tammi Jeff DO Oral ulcer (Primary Dx) from Last 3 Months Immunizations Immunization Administration Dates Next Due Influenza, [...] stage 3, GFR 30-59 ml/min ([facility]) Finklea poisoning Headache, tension-type Sleep apnea patient had Uvul a and T&A and the helped GERD (gastroesophageal reflu x disease) Irritable bowel syndrome Diverticulitis of colon Cerebrovascular accident (CVA) ([facility]) Cerebrovascular accident Cerebrovascular accident (CVA) ([facility]) Stroke Obesity Pulmonary embolism 12/15/2019 Awareness under anesthesia patie nt states he wakes up every time when given twilight anesthesia medication Emphysema lung Lupus anticoagulant disorder Family History Medical History Relation Name Comments Colon cancer Brother Cancer, colon; Colon cancer Mother Cancer -colon; Stroke Sister Stroke; Relation Name Status Comments Brother Father Mother Sister Social History Tobacco Use Types Packs/Day Years Used Date Smoking Tobacco: Every Day Cigarettes 0.2 43.9 Started: 06/18/1981 Smokeless Tobacco: Never Tobacco Cessation:Ready [...] on file Legal Sex Male 5:22 PM CLAIMS ANALYST Gender Identity Not on file Sexual Orientation Not on file Last Filed Vital Signs Vital Sign Reading Time Taken Comments Blood Pressure 136/84 07/10/2024 4:54 PM CLAIMS ANALYST Pulse 62 07/10/2024 4:54 PM CLAIMS ANALYST Temperature 36.4 C (97.5 F) 07/10/2024 4:54 PM CLAIMS ANALYST Respiratory Rate 16 07/10/2024 4:54 PM CLAIMS ANALYST Oxygen Saturation 97% 07/10/2024 4:54 PM CLAIMS ANALYST Inhaled Oxygen Concentration - - Weight 105.8 kg (233 lb 4 oz) 07/10/2024 10:09 A M CLAIMS ANALYST Height 175.3 cm (5' 9) 07/10/2024 10:09 AM CLAIMS ANALYST Body Mass Index 34.44 07/10/2024 10:09 AM CLAIMS ANALYST Plan of Treatment Health Maintenance Due Date Last Done Comments Albumin Creatinine Ratio, Urine 1969 Colon Cancer Screening-Colonoscopy 1969 Hepatitis C Screening 1969 Prostate Cancer Screening-PSA 1969 Dilated Eye Exam 1969 Hepatitis B Screening 1987 Regular Well Visit/Exam 18-64 1987 Zoster Vaccine (1 of 2) 2019 Hemoglobin A1C 06/13/2020 12/13/2019, 0102/2020, 05/17/2018, Additional history exists Foot Exam 07/08/2020 07/08/2019, 03/19, 11/09/2017, Additional history exists Depression Screening 05/31/2021 05/31/2020, 03/03/2019, 01/08/2019, Additional history exists Pneumococcal vaccine <65 (2 of 2 - PCV) 06/22/2021 06/22/2020 eGFR 04/19/2024 04/19/2023, 09/17, 12/30/2019, Additional history exists Lipid Panel 06/20/2024 06/20/2023, 02/16, 08/21/2022, Additional history exists Covid-19 Vaccine ( - 2024-2 6 season) 2025 05/30/2021, 09/11/2020, 08/21/2020 Influenza Vaccine (#1) 2025 , 02/24/2022, 08/01/2021, Additional history exists DTaP/Tdap/Td Vaccine (2 - Td or Tdap) 02/26/2029 02/26/2019 Medical Devices Implanted Type Area Can Handler Device Identifier Shelf Expiration Date Model / Serial / Lot [employer] Angio-Seal Vip 6fr Closere Device [id number] - [id number] Implanted:Qty: 1 on 10/12/2022 by Eliel Ortiz MD at [facility] Other - see comments [employer] Kalin 03/17/2023 [id number] / / [id number] [employer] [id number] 4mm 44mm Compression Headless Foot Ankle Screw Bone - [id number] Implanted:Qty: 1 on 04/25/2019 by Chidi Rios DPM at [facility] Right: Toes [employer] [id number] / / [employer] [place] Ezm 10-10-10 Easyclip Si 2mm [id number] Monocortical Superelastic Reamer - [id number] Implanted:Qty: 1 on 04/25/2019 by Chidi Rios DPM at [facility] Right: Toes [employer] [place] 11/16/2023 EZM 10-10-10 / / [id number] [employer] [place] Ezm --10 Easyclip Si 2mm [id number] Monocortical Superelastic Reamer - [id number] Implanted:Qty: 1 on 04/25/2019 by Chidi Rios DPM at [facility] Right: Toes [employer] [place] 11/16/2023 [facility] 10-10-10 / / [id number] Toe Tac Xpress Hammertoe Fixation System Implanted:Qty: 2 on 04/25/2019 by Chidi Rios DPM at [facility] Right: Toes [employer] [id number] 05/27/2021 [id number] / [id number] / [id number] [employer] Implanted:Qty: 1 on 04/25/2019 by Chidi Rios DPM at [facility] Right: Toes [employer] 07/18/2028 [id number] / / [id number] Procedures Procedure Name Priority Date/Time Associated Diagnosis Comments EGFR STAT 04/19/2023 3:53 PM CDT HEMOGLOBIN A1C Routine 12/13/2019 2:55 PM CDT LIPID PANEL Routine 05/17/2018 2:25 PM CLAIMS ANALYST Type 2 diabetes mellitus with hyperglycemia, with long-term current use of insulin (HCC) from Last 3 Months or Most Recently Relevant to Health Maintenance Results * eGFR (04/19/2023 3:53 PM CDT) eGFR 51 mL/min/1. 73 m2 [facility] ([facility]) Comment: Interpretive Data Reference Interval Normal >/= [...] ORDERABLE S Final Result Performing Organization Address City/[facility]/ZIP Co de Phone Number JANUARY [facility] ([facility]) 1 [facility] [place] [address] * (ABNORMAL) Hemoglobin A1c (12/13/2019 2:55 PM CDT) Blood specimen (specimen) 12/13/2019 2:55 PM CDT Narrative [facility] - 12/13/2019 2:55 PM CDT Results in labs Aliza Carlson MD LAB BLOOD ORDERABLES Becky l Result Performing Organization Address [facility] Co de Phone Number [place] [phone] * (ABNORMAL) Lipid panel (05/17/2018 2:25 PM CLAIMS ANALYST) Cholesterol 159 30 - 199 mg/dL JANUARY [...] (EVER) Blood specimen (specimen) 05/17/2018 2:25 PM CLAIMS ANALYST 05/17/2018 5:15 PM CLAIMS ANALYST Narrative [facility] ([facility]) - 05/17/2018 6:14 PM CLAIMS ANALYST Cleoja Levi Sims MD LAB BLOOD ORDERABLE S Final Result [facility] ([facility]) 1 [facility] [place] [address] from Last 3 Months or Most Recently Relevant to Health Maintenance Insurance IDME [facility] MEDICARE ADVANTAGE MEDICARE [facility] MEDICARE ADVANTAGE [facility] MEDICARE ADVANTAGE [employer] [facility] MEDICARE ADVANTAGE Advance Directives For more information, please contact: [phone] * Full Code (Latest Code Status on File) Date Activated Date Inactivated Comments 10/12/2022 2:12 PM 10/12/2022 10:46 PM * Full Code Date Activated Date Inactivated Comments 09/24/2017 9:04 PM 09/30/2017 5:22 PM Care Teams Site Acquisition Manager Relationship Specialty Start Date End Date Tad Mcintosh DO [address] [place] [address] PCP - General Family Medicine 06/26/24
[2025-05-07 09:04] LABS: Hepatitis B Surface Antigen Negative (Negative)
[2025-05-07 09:10] LABS: HAV RESULT Negative (Negative); Hepatitis B Core IgM Result Negative (Negative)
== END 2025-05-06 14:33 | disposition home or self-care (01) ==
LOC: CHSLAB 14:33
PROVIDERS: PCP Nurse Practitioner Family; Visit Provider Family Medicine
DX: R74.01 Elevation of levels of liver transaminase levels (principal); R53.82 Chronic fatigue, unspecified; M70.21 Olecranon bursitis, right elbow
CPT/HCPCS: 36415; 80074; 82365; 87806; 89060

== ENCOUNTER 2025-05-17 17:17 | Emergency (ER) | payer MEDICARE, MEDICAID, SELFPAY ==
--- NOTE | ~2025-05-17 | CT_ITS ---
EXAMINATION: CT brain wo con, 05/17/2025 17:45 TARGET NETWORK ANALYST HISTORY: weakness/confusion x1 month; worsening COMPARISON: No comparisons available. Technique: Axial images obtained of the brain without contrast. One or more of the following dose reduction techniques were used: automated exposure control, adjustment of the mA and/or kV according to patient size, use of iterative reconstruction technique. Findings: No acute infarct or parenchymal hemorrhage. No abnormal mass or mass effect. No midline shift. No extra-axial fluid collections. No hydrocephalus. Mastoid air cells unremarkable. Sinuses and orbits unremarkable. No acute fracture. No significant facial or scalp soft tissue swelling evident. No radiopaque foreign body is seen. Impression: 1.No acute intracranial abnormality. Reviewed, dictated and finalized at location P. ET NETWORK ANALYST Impression: 1.No acute intracranial abnormality.
[2025-05-17 17:17] VITALS: BP 142/87; PULSE 68; RESP 20; TEMP 36.2; O2SAT 98
--- NOTE | 2025-05-17 17:23 | ED.WEAKNESS ---
HPI - Weakness General Chief complaint: Weakness Stated complaint: weakness; off-balance Time Seen by Provider: 05/17/25 17:22 Source: patient Mode of arrival: ambulatory Limitations: no limitations History of Present Illness HPI Narrative: Patient is a 55-year-old male with generalized weakness specifically of the lower extremity bilaterally. This has been going on for about a month however getting worse over the past 2-3 days. He was able to walk up stairs with difficulty now he said he cannot walk up stairs at all at this time. He said he has pain in the hips and lower back chronically. No focal changes or complaints. MD Complaint: generalized weakness, lack of energy and difficulty walking Onset (ago): month(s) (One month; worse over the past 3 days) Duration: constant Location: generalized Migration: distal (Lower extremities) Severity: moderate Severity scale (1-10): 4 Quality: sharp (Lumbar spine and bilateral hips chronically) Relieving factors: rest Exacerbating factors: movement Context: other (Patient has been getting progressively worse lower extremity bilateral weakness over the past month and worse even more so over the past 3 days) Associated symptoms: confusion, myalgias and other (Fatigue and tiredness lately as well) Related Data Home Medications ?Medication ?Instructions ?Recorded ?Confirmed ?Last Taken ?Type aripiprazole 20 mg tablet 20 mg PO DAILY 06/20/23 04/03/25 Unknown History aripiprazole 5 mg tablet 5 mg PO DAILY 06/20/23 04/03/25 Unknown History aspirin 81 mg tablet,delayed 81 mg PO DAILY 06/20/23 04/03/25 Unknown History release (Adult Low Dose Aspirin) bupropion HCl 300 mg 24 hr tablet, 300 mg PO QAM 06/20/23 04/03/25 Unknown History extended release venlafaxine 150 mg 150 mg PO DAILY 06/20/23 04/03/25 Unknown History capsule,extended release 24 hr clopidogrel 75 mg tablet (Plavix) 75 mg PO DAILY 03/24/25 04/03/25 Unknown History Allergies Allergy/AdvReac Type Severity Reaction Status Date / Time ivp dye Allergy Severe cant Uncoded 05/06/25 14:30 breathe Review of Systems Review of Systems: All systems reviewed & are unremarkable except as noted in HPI and below Constitutional: Constitutional: Reports no additional constitutional complaints Eyes: Eyes: Reports no additional eye complaints ENT: Reports system reviewed and no additional complaints, except as documented Cardiovascular: Cardiovascular: Reports no additional cardiovascular complaints Respiratory: Respiratory: Reports no additional respiratory complaints Gastrointestinal: Gastrointestinal: Reports no additional gastrointestinal complaints Genitourinary: Genitourinary: Reports no additional male genitourinary complaints Musculoskeletal: Musculoskeletal: Reports no additional musculoskeletal complaints Integumentary/Breasts: Skin/Breast: Reports system reviewed and no additional complaints, except as docu Neurologic: Reports system reviewed and no additional complaints, except as documented Psychiatric: Psychiatric: Reports no additional psychiatric complaints Endocrine: Endocrine: Reports no additional endocrine complaints Hematologic/Lymphatic: Hematologic/Lymphatic: Reports no additional hematologic/lymphatic complaints Allergic/Immunologic: Allergic/Immunologic: Reports no additional allergic/immunologic complaints PMFSH Past Medical History Medical History Stroke Hx. CVA 2004 Left hemiplegia x 6 months then resolved Lupus Asthma Family History Family History Mother Carcinoma of colon Father Emphysema lung Grandparent Diabetes mellitus Sibling Lupus Other Hypertension Social History Social History Smoking packs per day: 0.5 Smoking cigarettes per day: 10.0 Smoking status: Former smoker Alcohol intake: never Substance use: never Gender identity (if verbalized by the patient): Male Exam Const: General: healthy appearing Nutritional Appearance: well nourished Orientation/consciousness: patient oriented x3 Limitations: no limitations HENMT: Head: normal to inspection Ears: external ears normal Face/Nose/Sinus: Normal external nose present Eyes: Conjunctivae: conjunctivae normal Pupils: Equal, round and reactive pupils present EOM: EOMs intact bilaterally Neck: Neck: normal visual inspection Chest: Chest palpation & inspection: normal inspection of the chest Resp: Effort & Inspection: normal respiratory effort and not labored Auscultation: clear to auscultation bilaterally and no crackles Cardio: Rate: regular rate Rhythm: regular rhythm Heart sounds: no murmurs GI: Inspection: non-distended GI Palp: Yes Soft to palpation and No Tenderness to palpation present (GI) Auscultation: normal bowel sounds : General: Yes bladder normal to palpation Back/Spine/Pelvis: Back: no CVA tenderness Skin: General skin exam: normal color Rashes: no rashes Wounds: no wounds Neuro: General: patient oriented x3, moves all extremities, no meningeal signs, no focal motor deficits and CN's II-XI intact bilaterally Cranial nerves: Yes Nystagmus not present Speech: normal speech Gait exam (Neuro): gait abnormal (Signs of weakness from both legs as he walks; no focal changes seen) Other: Fast exam negative, GCS is 15, NIH is 0 Extrem: General: normal to inspection, no clubbing, cyanosis or edema and no pedal edema Other: Bilateral lower extremity weakness Psych: Mental Status: mental status grossly normal Affect: normal affect Attitude: cooperative Course Vital Signs Vital signs: Vital Signs Temperature 36.2 C L 05/17/25 17:17 Pulse Rate 68 05/17/25 17:17 Respiratory Rate 20 05/17/25 17:17 Blood Pressure 142/87 H 05/17/25 17:17 Pulse Oximetry 98 05/17/25 17:17 Oxygen Delivery Room Air 05/17/25 17:17 Temperature 36.2 C L 05/17/25 17:17 Pulse Rate 84 05/17/25 17:32 Respiratory Rate 20 05/17/25 17:32 Blood Pressure 138/89 05/17/25 17:32 Pulse Oximetry 96 05/17/25 17:32 Oxygen Delivery Room Air 05/17/25 17:32 MDM - Weakness MDM Narrative Medical decision making narrative: Patient is a 55-year-old male with bilateral lower extremity weakness over the past month and worse over the past 3 days. Check labs to include sed rate for PMR. No head symptoms of TA. No urinary loss or bowel loss or saddle anesthesia. CT head. EKG. Workup was essentially negative. He will need to refer back to his primary doctor for further workup of what appears to be more of a chronic type issue. Further rheumatology workup can be done as an outpatient. Patient has polypharmacy and possible connection to generalized chronic weakness. Lab Data Attestation: I reviewed the patient's lab results. Lab results narrative: CKD/baseline creatinine 05/17/25 18:02 05/17/25 18:02 Labs: Lab Results 05/17/25 05/17/25 05/17/25 Range/Units 17:26 17:44 18:02 WBC 9.5 (4.8-10.8) K/mm3 RBC 4.33 L (4.70-6.10) M/mm3 Hgb 13.6 L (14.0-18.0) g/dL Hct 40.6 (40.0-54.0) % MCV 93.8 (78.0-102.0) fL MCH 31.4 H (27.0-31.0) pg MCHC 33.5 (32-36) g/dL RDW 14.2 (11.6-14.4) % Plt Count 213 (150-420) K/mm3 MPV 9.8 (8.7-11.0) fl Immature Gran % (Auto) 0.2 H (0.0-0.0) % Neut % (Auto) 57.3 (50.0-70.0) % Lymph % (Auto) 31.3 (18.0-42.0) % [place] % (Auto) 5.8 (2.0-11.0) % Eos % (Auto) 4.1 (1.0-6.0) % Baso % (Auto) 1.3 H (0.0-1.0) % Lymph # (Auto) 2.98 (1.10-4.50) K/mm3 [place] # (Auto) 0.55 (0.10-0.90) K/mm3 Eos # (Auto) 0.39 (0.02-0.50) K/mm3 Baso # (Auto) 0.12 H (0.00-0.10) K/mm3 Abs Immat Gran (auto) 0.02 H (0.00-0.00) K/mm3 Absolute Neuts (auto) 5.45 (1.70-7.20) K/mm3 Absolute Nucleated RBC 0.00 (0.00-0.00) K/mm3 Nucleated RBC % 0.0 (0-0.0) % ESR 10 (0-20) mm/hr Sodium 144 (137-145) mmol/L Potassium 3.9 (3.4-5.0) mmol/L Chloride 109 H (98-107) mmol/L Carbon Dioxide 25 (22-30) mmol/L Anion Gap 10 (4-12) mmol/L BUN 19 (9-20) mg/dL Creatinine 1.49 H (0.7-1.3) mg/dL Estim Creat Clear Calc 62 ml/min Estimated GFR 49 L (59 - ) Glucose 141 H (65-110) mg/dL POC Capillary Glucose 162 H (65-105) mg/dl Calculated Osmolality 302 H (285-295) mOsm/kg Calcium 9.5 (8.4-10.2) mg/dL Magnesium 2.0 (1.6-2.3) mg/dL Total Bilirubin 0.3 (0.2-1.3) mg/dL AST 34 (17-59) U/L ALT 38 (6-50) U/L Alkaline Phosphatase 81 (38-126) U/L Total Creatine Kinase 146 (55-170) U/L Troponin I < 0.012 (0.000-0.034) ng/mL C-Reactive Protein < 0.5 (<1.0) mg/dL Total Protein 6.6 (6.3-8.2) g/dL Albumin 4.4 (3.5-5.1) g/dL TSH 0.967 (0.465-4.680) uIU/mL Urine Color Light yellow (Yellow) Urine Appearance Clear (Clear) Urine pH 5.5 (5.0-8.0) Ur Specific [place] <= 1.005 L (1.010-1.020) Urine Protein Negative (Negative) Urine Glucose (UA) Negative (Negative) Urine Ketones Negative (Negative) Ur Blood (Man) Negative (Negative) Urine Nitrate Negative (Negative) Urine Bilirubin Negative (Negative) Urine Urobilinogen 0.2 (0.2-1.0) mg/dL Leukocyte Esterase Rfl Negative (Negative) MAXWELL/UL Imaging Data Attestation: I personally reviewed and interpreted this imaging study as follows: Radiologist's impression: CT scan of the head is negative for acute process ECG Data EKG #1: Attestation: I personally reviewed and interpreted this ECG as follows: ECG completion date: 05/17/25 ECG completion time: 17:42 Interpretation: No chest pain or shortness of breath EKG Interpretation: normal rate, sinus rhythm, no ectopy, no ST changes, widened QRS (IVCD), normal QT and NL axis Discharge Plan Discharge Clinical Impression: Weakness Patient Disposition: Home Condition: Stable Instructions: Weakness (ED) Additional Instructions: Please follow-up with the primary doctor in the next week. Further rheumatology workup can be done with your primary doctor. Patient Language: Belarusian Prescriptions: No Action lactulose 20 gram/30 mL solution 20 g PO BID PRN (Reason: congestion) Qty: 1200 0RF glucagon 3 mg/actuation spray,non-aerosol 3 mg intranasal ONCE Qty: 2 0RF Rx Instructions: as a single dose bupropion HCl 300 mg tablet extended release 24 hr 300 mg PO QAM aripiprazole 5 mg tablet 5 mg PO DAILY venlafaxine 150 mg capsule,extended release 24hr 150 mg PO DAILY aripiprazole 20 mg tablet 20 mg PO DAILY aspirin [Adult Low Dose Aspirin] 81 mg tablet,delayed release (DR/EC) 81 mg PO DAILY oxcarbazepine 600 mg tablet 600 mg PO BID Qty: 180 0RF Linzess 290 mcg capsule 290 mcg PO DAILY Qty: 90 0RF clopidogrel [Plavix] 75 mg tablet 75 mg PO DAILY valacyclovir 500 mg tablet 2,000 mg PO BID Qty: 8 0RF (DME) blood-glucose meter Kit See Rx Instructions .Route Qty: 1 0RF Rx Instructions: test up to 4 times a day (DME) lancets [OneTouch UltraSoft 2 Lancet] 30 gauge misc See Rx Instructions .Route Qty: 200 0RF Rx Instructions: As directed (DME) blood-glucose meter [OneTouch Ultra2 Meter] Misc See Rx Instructions .Route Qty: 1 0RF Rx Instructions: As directed (DME) lancets [OneTouch Delica Plus Lancet] 30 gauge misc See Rx Instructions .Route Qty: 200 2RF Rx Instructions: pt may test up to 4 times a day methocarbamol 750 mg tablet See Rx Instructions .ROUTE .COMPLEX Qty: 90 0RF Dose Instruction: TAKE 1 TABLET BY MOUTH AT BEDTIME Rx Instructions: TAKE 1 TABLET BY MOUTH AT BEDTIME trazodone 100 mg tablet See Rx Instructions .ROUTE .COMPLEX Qty: 180 0RF Dose Instruction: TAKE 2 TABLETS BY MOUTH AT BEDTIME Rx Instructions: TAKE 2 TABLETS BY MOUTH AT BEDTIME hydroxyzine pamoate 25 mg capsule See Rx Instructions .ROUTE .COMPLEX Qty: 90 0RF Dose Instruction: TAKE 1 CAPSULE BY MOUTH 3 TIMES A DAY FOR NAUSEA/VOMITING Rx Instructions: TAKE 1 CAPSULE BY MOUTH 3 TIMES A DAY FOR NAUSEA/VOMITING ondansetron 4 mg tablet,disintegrating 4 mg PO Q6H PRN (Reason: nausea and vomiting) Qty: 14 0RF (DME) Blood Glucose Test Strip See Rx Instructions .Route Qty: 100 4RF Rx Instructions: QID atorvastatin 80 mg tablet 80 mg PO DAILY Qty: 90 3RF tadalafil [Cialis] 20 mg tablet 20 mg PO DAILY PRN (Reason: sexual activity) Qty: 30 0RF Rx Instructions: administer approximately 30min before sexual activity; do not use more than 1 dose per 24hrs metoprolol succinate 25 mg tablet extended release 24 hr See Rx Instructions .ROUTE .COMPLEX Qty: 180 2RF Dose Instruction: TAKE 2 TABLETS BY MOUTH EVERY DAY Rx Instructions: TAKE 2 TABLETS BY MOUTH EVERY DAY torsemide 20 mg tablet See Rx Instructions .ROUTE .COMPLEX Qty: 90 1RF Dose Instruction: TAKE 1 TABLET EVERY MORNING Rx Instructions: TAKE 1 TABLET EVERY MORNING Eliquis 5 mg tablet See Rx Instructions .ROUTE .COMPLEX Qty: 180 1RF Dose Instruction: TAKE 1 TABLET BY MOUTH TWICE A DAY Rx Instructions: TAKE 1 TABLET BY MOUTH TWICE A DAY montelukast 10 mg tablet See Rx Instructions .ROUTE .COMPLEX Qty: 90 2RF Dose Instruction: TAKE 1 TABLET BY MOUTH EVERY DAY Rx Instructions: TAKE 1 TABLET BY MOUTH EVERY DAY fluticasone propionate 50 mcg/actuation spray,suspension See Rx Instructions .ROUTE .COMPLEX Qty: 48 2RF Dose Instruction: USE 1 SPRAY INTO EACH NOSTRIL TWICE A DAY Rx Instructions: USE 1 SPRAY INTO EACH NOSTRIL TWICE A DAY albuterol sulfate 90 mcg/actuation HFA aerosol inhaler See Rx Instructions .ROUTE .COMPLEX Qty: 8.5 2RF Dose Instruction: INHALE 1 PUFF EVERY 4 HOURS NEEDED FOR SHORTNESS OF BREATH/WHEEZING Rx Instructions: INHALE 1 PUFF EVERY 4 HOURS NEEDED FOR SHORTNESS OF BREATH/WHEEZING glimepiride 1 mg tablet 1 mg PO QAM Qty: 90 0RF Rx Instructions: administer with breakfast ropinirole 2 mg tablet See Rx Instructions .ROUTE .COMPLEX Qty: 90 3RF Dose Instruction: 2 MG ORALLY EVERY DAY AT BEDTIME Rx Instructions: 2 MG ORALLY EVERY DAY AT BEDTIME gabapentin 600 mg tablet See Rx Instructions .ROUTE .COMPLEX Qty: 360 1RF Dose Instruction: TAKE 1 TABLET BY MOUTH FOUR TIMES A DAY Rx Instructions: TAKE 1 TABLET BY MOUTH FOUR TIMES A DAY omeprazole 20 mg capsule,delayed release(DR/EC) See Rx Instructions .ROUTE .COMPLEX Qty: 180 1RF Dose Instruction: TAKE 1 CAPSULE BY MOUTH TWICE A DAY Rx Instructions: TAKE 1 CAPSULE BY MOUTH TWICE A DAY fluticasone propion-salmeterol 500-50 mcg/dose blister with device See Rx Instructions .ROUTE .COMPLEX Qty: 60 2RF Dose Instruction: INHALE 1 PUFF IN MORNING AND 1 PUFF AT BEDTIME Rx Instructions: INHALE 1 PUFF IN MORNING AND 1 PUFF AT BEDTIME fosinopril 40 mg tablet See Rx Instructions .ROUTE .COMPLEX Qty: 90 1RF Dose Instruction: TAKE 1 TABLET BY MOUTH EVERY DAY Rx Instructions: TAKE 1 TABLET BY MOUTH EVERY DAY Follow-up/Referrals: Tad Mcintosh DO [Primary Care Provider, [facility]] Time of Disposition: 19:23
--- OUTSIDE RECORDS SUMMARY | 2025-05-17 17:24 | XMS_ITS | Encounter Summary ---
Author Organization [facility] Address [address] [place] [address] Phone Care Team Providers Care Benefit Authorizer Name Role Phone Jabier Peck MD Primary Care Provider [phone] Srikanth Adrian MD Unavailable Tad Romero MD Primary Care Provider [phone] Gloria Martinez MD Unavailable [phone] Reason for Visit * Reason Comments Medication Refill Encounter Details Date Type Department Care Team (Late st Contact Info) Description 02/22/2022 [facility]ill [facility] [address] [place] [address] Jabier Peck MD [address] [address] Medication Refill Social History Tobacco Use Types [...] CDT Gender Identity Male 05/03/2023 12:44 PM HOSPITAL PHARMACIST Sexual Orientation Lesbian or Wolff 05/03/2023 12 :44 PM HOSPITAL PHARMACIST COVID-19 Exposure Response Date Recorded In the last 10 days, have tabby u been in contact with someone who was confirmed or suspected to have Coronavirus/COVID-19? No / Unsure 02/24/2022 3:19 PM CDT documented as of this encounter Functional Status documented as of this encounter Mental Status * Question Answer Entry Date Author BP 112/58 02/24/2022 3:33 PM CDT Kalpesh Beckford RMA Temp 97.6 02/24/2022 3:33 PM CDT Kalpesh Beckford RMA Pulse 83 02/24/2022 3:33 PM CDT Kalpesh Beckford RMA SpO2 96 02/24/2022 3:33 PM CDT Kalpesh Beckford RMA documented in this encounter Miscellaneous [...] [place] 03/16/21 Office Visit Kishore Prieto APRN, ACADEMIC SERVICES COORDINATOR [facility] [place] Showing recent visits within past 365 days and meeting all other requirements Future Appointments Date Type Provider Dept 02/24/22 Appointment Kishore Prieto, INTELLIGENCE APPLICATIONS, ACADEMIC SERVICES COORDINATOR [facility] future appointments within next 90 days and meeting all other requirements documented in this encounter Plan of Treatment Upcoming Encounters Date Type Department Care Team (Late st Contact Info) Description 07/14/2025 1:30 PM HOSPITAL PHARMACIST Office Visit [facility] - Neurology - [place] [address] [place] [address] Aria Delong APRN, ASSISTANT PROFESSOR SURGICAL TECHNOLOGY [address] [place] [address] documented as of this encounter Visit Diagnoses Diagnosis Cervical radiculopathy Brachial neuritis or radiculitis nos documented in this encounter Additional Health Concerns Infection Onset Date Last Indicated Resolved Time COVID - 19 Confirmed 05/31/2022 05/31/2022 023 12:16 AM HOSPITAL PHARMACIST Respiratory Rule Out - RPA 02/26/2023 02/26/2023 0 02/26/2023 11:31 AM CDT COVID - 19 02/26/2023 02/26/2023 03/08/2023 12:1 6 AM CDT documented as of this encounter Care Teams Benefit Authorizer Relationship Specialty Start Date End Date Jabier Peck MD [address] [address] PCP - General Family Medicine 06/22/20 01/16/24 Tad Mcintosh MD [address] [place] [address] PCP - General Family Medicine 01/17/24 Srikanth Adrian MD #[address] [address] Poultry Culler Cardiovascular Disease - Cardiology 02/02/22 08/06/24 Gloria Martinez MD [address] [address] Consulting Physician Urology 04/30/24 documented as of this encounter
--- OUTSIDE RECORDS SUMMARY | 2025-05-17 17:24 | XMS_ITS | Encounter Summary ---
Author Organization [facility] Address [address] [place] [address] Phone Care Team Providers Care Financial Dealers Name Role Phone Jabier Peck MD Primary Care Provider [phone] Srikanth Adrian MD Unavailable Tad Romero MD Primary Care Provider [phone] Gloria Martinez MD Unavailable [phone] Reason for Visit * Reason Comments Medication Refill Encounter Details Date Type Department Care Team (Late st Contact Info) Description 03/29/2022 Refill [facility] [address] [place] [address] Jabier Peck MD #[address] [address] Medication Refill Social History Tobacco Use Types [...] Gender Identity Male 05/03/2023 12:44 PM DIRECTOR SAFETY Sexual Orientation Lesbian or Wolff 05/03/2023 12 :44 PM DIRECTOR SAFETY COVID-19 Exposure Response Date Recorded In the [...] st Contact Info) Description 07/14/2025 1:30 PM DIRECTOR SAFETY Office Visit [facility] - Neurology - [place] [address] [place] [address] Aria Delong, ENVIRONMENTAL INTERN, COBBLER APPRENTICE [address] [facility] [place] [address] documented as of this encounter Visit Diagnoses Diagnosis Cervical radiculopathy Brachial neuritis or radiculitis nos documented in this encounter Additional Health Concerns Infection Onset Date Last Indicated Resolved Time COVID - 19 Confirmed 05/31/2022 05/31/2022 023 12:16 AM DIRECTOR SAFETY Respiratory Rule Out - RPA 02/26/2023 02/26/2023 0 02/26/2023 11:31 AM CDT COVID - 19 02/26/2023 02/26/2023 03/08/2023 12:1 6 AM CDT documented as of this encounter Care Teams Financial Dealers Relationship Specialty Start Date End Date Jabier Peck MD [address] [facility] [address] [place] [address] PCP - General Family Medicine 06/22/20 01/16/24 Tad Mcintosh MD [address] [place] [address] PCP - General Family Medicine 01/17/24 Srikanth Adrian MD [address] [facility] [address] [place] [address] Crayon Molding Machine Operator Cardiovascular Disease - Cardiology 02/02/22 08/06/24 Gloria Martinez MD [address]2 [facility] [address] [place] [address] Consulting Physician Urology 04/30/24 documented as of this encounter
--- OUTSIDE RECORDS SUMMARY | 2025-05-17 17:24 | XMS_ITS | Encounter Summary ---
Author Organization [facility] Address [address] [place] [address] Phone Care Team Providers Care Furnace Charger Name Role Phone Jabier Peck MD Primary Care Provider [phone] Srikanth Adrian MD Unavailable Tad Romero MD Primary Care Provider [phone] Gloria Martinez MD Unavailable [phone] Reason for Visit * Reason Onset Date Comments Medication Refill 12/28/2021 Encounter Details Date Type Department Care Team (Late st Contact Info) Description 12/28/2021 Refill [facility] - Family [facility] [address] [place] [address] Jabier Peck MD #[address] [address] Medication Refill Social History Tobacco Use Types [...] CDT Gender Identity Male 05/03/2023 12:44 PM SHEET METAL FORMER Sexual Orientation Lesbian or Wolff 05/03/2023 12 :44 PM SHEET METAL FORMER COVID-19 Exposure Response Date Recorded In the [...] physician/MARVA review. Refill encounter routed to nurse [employer] for processing. documented in this encounter Plan of Treatment Upcoming Encounters Date Type Department Care Team (Late st Contact Info) Description 07/14/2025 1:30 PM SHEET METAL FORMER Office Visit [facility] - [facility] [address] [place] [address] Aria Delong APRN, DIAMOND SAW OPERATOR [address] [place] [address] documented as of this encounter Visit Diagnoses Not on filedocumented in this encounter Additional Health Concerns Infection Onset Date Last Indicated Resolved Time COVID - 19 Confirmed 05/31/2022 05/31/2022 023 12:16 AM SHEET METAL FORMER Respiratory Rule Out - RPA 02/26/2023 02/26/2023 0 02/26/2023 11:31 AM CDT COVID - 19 02/26/2023 02/26/2023 03/08/2023 12:1 6 AM CDT documented as of this encounter Care Teams Furnace Charger Relationship Specialty Start Date End Date Jabier Peck MD #[address] [address] PCP - General Family Medicine 06/22/20 01/16/24 Tad Mcintosh MD [address] [place] [address] PCP - General Family Medicine 01/17/24 Srikanth Adrian MD [facility] [address] [place] [address] Data Coder Operator Cardiovascular Disease - Cardiology 02/02/22 08/06/24 Gloria Martinez MD [address] [facility] [address] [place] [address] Consulting Physician Urology 04/30/24 documented as of this encounter
--- OUTSIDE RECORDS SUMMARY | 2025-05-17 17:24 | XMS_ITS | Encounter Summary ---
Author Organization [facility] Address [address] [place] [address] Phone Care Team Providers Care Assistant Offset Press Operator Name Role Phone Jabier Peck MD Primary Care Provider [phone] Srikanth Adrian MD Unavailable Tad Romero MD Primary Care Provider [phone] Gloria Martinez MD Unavailable [phone] Reason for Visit * Reason Onset Date Comments Medication Refill 03/23/2021 Encounter Details Date Type Department Care Team (Late st Contact Info) Description 03/23/2021 Refill [facility] Family [facility] #2 [place] [address] Jabier Peck MD #[address] [address] Medication Refill Social History Tobacco Use Types [...] Gender Identity Male 05/03/2023 12:44 PM HIGH DENSITY TALC COATER OPERATOR Sexual Orientation Lesbian or Wolff 05/03/2023 12 :44 PM HIGH DENSITY TALC COATER OPERATOR COVID-19 Exposure Response Date Recorded In [...] [facility] Al[facility] APN, SEAM CLOSER 4 months ago Dermatitis [facility] Kishore Alonso APN, SEAM CLOSER 5 months ago Diet-controlled diabetes mellitus (HCC) [facility] - Jabier Aldridge MD 7 months ago Thrombophilia (HCC) [facility] - Kishore Alonso APN, SEAM CLOSER 7 months ago Obstructive sleep apnea syndrome [facility] - [place] Morgan APN, SEAM CLOSER Upcoming Appointments Future Appointments Tomorrow [facility] RESP ROOM1 [facility] Respiratory Therapy, [facility] In 1 week Sofy Bowen, PT [facility] Rehab at [facility] In 2 weeks Jabier Peck MD [facility] Family Medicine [facility] In 1 month Aria Delong APN, RN CARDIAC CATH [facility] Neurology [facility] In 5 months Jt Morillo MD [facility] - [facility] Center Oncology Services, [facility] VACUUM EVAPORATION OPERATOR - Recent and Past Visits Recent Visits Date Type Provider Dept 03/16/21 Office Visit Kishore Prieto APN, RICHARD [facility] 11/16/20 Office Visit Kishore Prieto APN, RICHARD [...] Provider Dept 04/08/21 Appointment Jabier Peck MD [facility] [place] Showing future appointments within next 90 [...] st Contact Info) Description 07/14/2025 1:30 PM HIGH DENSITY TALC COATER OPERATOR Office Visit [facility] - Neurology - [place] [address] [place] [address] Aria Delong APRN, RN CARDIAC CATH #2 [place] [address] documented as of this encounter Visit Diagnoses Not on filedocumented in this encounter Additional Health Concerns Infection Onset Date Last Indicated Resolved Time COVID - 19 Confirmed 05/31/2022 05/31/2022 023 12:16 AM HIGH DENSITY TALC COATER OPERATOR Respiratory Rule Out - RPA 02/26/2023 02/26/2023 0 02/26/2023 11:31 AM CDT COVID - 19 02/26/2023 02/26/2023 03/08/2023 12:1 6 AM CDT documented as of this encounter Care Teams Assistant Offset Press Operator Relationship Specialty Start Date End Date Jabier Peck MD #2 [facility] [address] [place] [address] PCP - General Family Medicine 06/22/20 01/16/24 Tad Mcintosh MD [address] [place] [address] PCP - General Family Medicine 01/17/24 Srikanth Adrian MD #2 [facility] [address] [place] [address] Grocery Associate Cardiovascular Disease - Cardiology 02/02/22 08/06/24 Gloria Martinez MD #2 [facility] [address] [place] [address] Consulting Physician Urology 04/30/24 documented as of this encounter
--- OUTSIDE RECORDS SUMMARY | 2025-05-17 17:24 | XMS_ITS | Encounter Summary ---
Author Organization [facility] Address [address] [place] [address] Phone Care Team Providers Care Residential Instructor Name Role Phone Jabier Peck MD Primary Care Provider [phone] Srikanth Adrian MD Unavailable Tad Romero MD Primary Care Provider [phone] Gloria Martinez MD Unavailable [phone] Reason for Visit * Reason Comments Medication Refill Encounter Details Date Type Department Care Team (Late st Contact Info) Description 07/28/2022 Refill [facility] #2 [place] [address] Jabier Peck MD #[address] [address] Medication Refill Social History Tobacco Use Types [...] Gender Identity Male 05/03/2023 12:44 PM COMPUTER ENGINEERING TECHNICIAN Sexual Orientation Lesbian or Wolff 05/03/2023 12 :44 PM COMPUTER ENGINEERING TECHNICIAN COVID-19 Exposure Response Date Recorded In the last 10 days, have tabby u been in contact with someone who was confirmed or suspected to have Coronavirus/COVID-19? No / Unsure 07/20/2022 2:30 PM COMPUTER ENGINEERING TECHNICIAN documented as of this encounter Miscellaneous [...] [facility] [place] 12/13/21 Telemedicine Kishore Prieto APRN, RCIHARD [facility] [place] 08/01/21 Office Visit Jabier Peck MD [facility] [place] Showing recent visits within past 365 days and meeting all other requirements Future Appointments No visits were found meeting these conditions. Showing future appointments within next 90 days and meeting all other requirements UTER ENGINEERING TECHNICIAN documented in this encounter Plan of Treatment Upcoming Encounters Date Type Department Care Team (Late st Contact Info) Description 07/14/2025 1:30 PM COMPUTER ENGINEERING TECHNICIAN Office Visit [facility] - Neurology - [place] [address] [place] [address] Aria Delong, GAS LEAK TESTER, CERTIFIED COURT/MEDICAL INTERPRETER #2 [place] [address] documented as of this encounter Visit Diagnoses Diagnosis Cervical radiculopathy Brachial neuritis or radiculitis nos documented in this encounter Additional Health Concerns Infection Onset Date Last Indicated Resolved Time Respiratory Rule Out - RPA 02/26/2023 02/26/2023 0 02/26/2023 11:31 AM CDT COVID - 19 02/26/2023 02/26/2023 03/08/2023 12:1 6 AM CDT documented as of this encounter Care Teams Residential Instructor Relationship Specialty Start Date End Date Jabier Peck MD #2 [facility] [address] [place] [address] PCP - General Family Medicine 06/22/20 01/16/24 Tad Mcintosh MD [address] [place] [address] PCP - General Family Medicine 01/17/24 Srikanth Adrian MD #2 [facility] [address] [place] [address] Manager Event Cardiovascular Disease - Cardiology 02/02/22 08/06/24 Gloria Martinez MD #2 [facility] [address] [place] [address] Consulting Physician Urology 04/30/24 documented as of this encounter
--- OUTSIDE RECORDS SUMMARY | 2025-05-17 17:24 | XMS_ITS | Clinical Summary ---
Author Organization [facility] Address [address] [address] Phone Care Team Providers Care Front End Developer Javascript Html Css Name Role Phone Tad Mcintosh MD Primary Care Provider Gloria Martinez MD Unavailable [phone] Allergies Active Allergy Reactions Criticality Noted [...] mL 01/13/20 Active Insulin Pen Needle (Pen [place]) 29G X 12MM Misc As instructed 100 [...] any time in the past 12 [facility], were you homeless or living in a assisted (including now)? Patient declined 01/10/2025 [facility] Utilities Answer Date Recorded In the [...] CDT Gender Identity Male 05/03/2023 12:44 PM VETERINARY PHYSIOLOGIST Sexual Orientation Lesbian or Wolff 05/03/2023 12 :44 PM VETERINARY PHYSIOLOGIST Last Filed Vital Signs Vital Sign Reading [...] st Contact Info) Description 07/14/2025 1:30 PM VETERINARY PHYSIOLOGIST Office Visit [facility] - [facility] #[address] [place] [address] Aria Delong APRN, CHIEF DIETITIAN [address] [place] [address] Health Maintenance Due Date Last Done Comments [...] CHEST SCREENING WO Routine 05/10/2022 2:52 PM VETERINARY PHYSIOLOGIST Personal history of nicotine dependence PODIATRY CONSULT 08/18/2021 12:0 0 AM VETERINARY PHYSIOLOGIST from Last 3 Months or Most Recently Relevant to Health Maintenance Results * (ABNORMAL) Hemoglobin A1C w/ Estimated Glucose (01/10/2025 8:13 PM CDT) HGB-A1C 12.4(H) 4.0 - 6.0 % 01/10/2025 8:41 PM CDT [facility] Est Average Glucose 309.2 mg/dL 01/10/2025 8:41 PM CDT [facility] Blood Venipuncture / Unknown 01/10/2025 8:13 PM CDT 01/10/2025 8:22 PM CDT Narrative [facility] - 01/10/2025 8:41 PM CDT HEMOGLOBIN A1C: DIABETIC PATIENTS: WELL-CONTROLLED: 6.2 - 7.0 INTERMEDIATE WELL-CONTROLLED: 7.0 - 9.0 POORLY-CONTROLLED: >9.0 Specimens containing greater than 5% of Hemoglobin F may result in lower than expected % HbA1C results. us Yissel Iniguez APRN, CNP CHEMISTRY ORDERABLES Becky l Result [facility] [address] [place] [address] * (ABNORMAL) CMP (Comprehensive Metabolic Panel) (01/10/2025 8:13 PM CDT) SODIUM 136 136 - 145 mmol/L 01/10/2025 8:43 PM CDT [facility] POTASSIUM 2.9(L) 3.5 - 5.1 mmol/L 01/10/2025 8:43 PM CDT [facility] CHLORIDE 101 98 - 107 mmol/L 01/10/2025 8:43 PM CDT [facility] CO2, VENOUS 23 22 - 30 mmol/L 01/10/2025 8:43 PM CDT [facility] ANION GAP 14.9 <18.0 mmol/L 01/10/2025 8:43 PM CDT [facility] GLUCOSE 319(H) 70 - 99 mg/dL 01/10/2025 8:43 PM CDT [facility] BUN 13 8 - 26 mg/dL 01/10/2025 8:43 PM T [facility] CREATININE, BLOOD 1.41(H) 0.70 - 1.30 mg/dL 01/10/2025 8:43 PM CDT [facility] BUN/CREATININE RATIO 9(L) 12 - 20 ratio 01/10/2025 8:43 PM T [facility] TOTAL PROTEIN 7.2 6.0 - 8.0 g/dL 01/10/2025 8:43 PM CDT [facility] ALBUMIN 4.5 3.5 - 5.0 g/dL 01/10/2025 8:43 PM CDT [facility] A/G RATIO 1.7 1.0 - 2.2 01/10/2025 8:43 PM CDT [facility] CALCIUM 9.6 8.7 - 10.5 mg/dL 01/10/2025 8:43 PM CDT [facility] T BILI 0.5 0.2 - 1.2 mg/dL 01/10/2025 8:43 PM T [facility] SGOT (AST) 20 <43 U/L 01/10/2025 8:43 PM CDT [facility] SGPT (ALT) 40 <56 U/L 01/10/2025 8:43 PM CDT [facility] ALKALINE PHOSPHATASE 142 40 - 150 U/L 01/10/2025 8:43 PM T [facility] GFR, ESTIMATED 59(L) >=60 01/10/2025 8:43 PM T [facility] Comment: Creatinine Clearance is the preferred criteria for selecting drug dose adjustments in renally impaired patients. The GFR is provided as additional pertinent clinical information. GFR is reported in mL/min/1.73 sq m. Calculation based on the Chronic Kidney Disease Epidemiology Collaboration (CKD- EPI) equation refit without adjustment for race. GFR, EST. >60 >=60 025 8:43 PM CDT [facility] GFR, EST. NONAFRICAN 52(L) >=60 01/10/2025 8:43 PM CDT [facility] Blood Venipuncture / Unknown 01/10/2025 8:13 PM CDT 01/10/2025 8:22 PM CDT us Yissel Iniguez CHEMISTRY LABORATORY TECHNICIAN, CREDIT COLLECTIONS REP CHEMISTRY ORDERABLES Becky l Result Performing Organization Address [facility] Co de Phone Number [facility] [address] [place] [address] * PSA SCREEN (02/26/2023 12:32 PM CDT) PSA SCREEN, TOTAL 0.60 <4.00 ng/mL 02/26/2023 1:45 PM CDT [facility] Blood Venipuncture / Unknown 02/26/2023 12:32 PM CDT 02/26/2023 12:57 PM CDT Narrative [facility] - 02/26/2023 1:45 PM CDT The CONVEYOR TENDER Total PSA assay is a Chemiluminescent Microparticle Immunoassay (CMIA) for the quantitative determination of total PSA (both free PSA and PSA complexed to [id number]) in human serum. us Kishore Prieto CHEMISTRY LABORATORY TECHNICIAN, CREDIT COLLECTIONS REP CHEMISTRY ORDERA BLES Final Result Performing Organization Address [facility]/ZIP Co de Phone Number [facility] [address] [place] [address] * CT CHEST SCREENING WO (05/10/2022 2:52 PM VETERINARY PHYSIOLOGIST) Anatomical Region Laterality Modality Chest N/A Computed Tomogra phy 05/12/2022 9:10 AM VETERINARY PHYSIOLOGIST Impressions 05/12/2022 9:13 AM VETERINARY PHYSIOLOGIST IMPRESSION: 1. Background of mild pulmonary emphysema. 2. Scattered tiny bilateral pulmonary nodules. No suspicious nodularity. 3. Mild coronary artery calcifications. 4. Additional findings as above. Lung-RADS v1.1 category 2: Benign appearance or behavior. Recommendation: Low dose CT of chest in 12 months. Narrative 05/12/2022 9:13 AM VETERINARY PHYSIOLOGIST EXAM DESCRIPTION: CT CHEST SCREENING WO REASON [...] Mallorie Gomez M.D. TW: KRISTIN Report ID: [id number] Reading Location: [id number] Procedure Note Mallorie Gomez MD - 05/12/2022 [...] Mallorie Gomez M.D. TW: KRISTIN Report ID: [id number] Reading Location: [id number] IMPRESSION: 1. Background of mild pulmonary emphysema. 2. Scattered tiny bilateral pulmonary nodules. No suspicious nodularity. 3. Mild coronary artery calcifications. 4. Additional findings as above. Lung-RADS v1.1 category 2: Benign appearance or behavior. Recommendation: Low dose CT of chest in 12 months. us Kishore Ad Conner CHEMISTRY LABORATORY TECHNICIAN, CREDIT COLLECTIONS REP IMG CT ORDERABLE S Final Result * PODIATRY CONSULT (08/18/2021 12:00 AM VETERINARY PHYSIOLOGIST) 08/18/2021 us Not On File Provider GENERIC SCAN ORDERS CONSULT Final Result SCAN from Last 3 Months or Most Recently Relevant to Health Maintenance Insurance MEDICAID [place] MEDICARE [place] [address] [facility] Advance Directives * Full Code [...] measures to stabilize the patient. Care Teams Front End Developer Javascript Html Css Relationship Specialty Start Date End Date Tad Mcintosh MD [address] [place] [address] PCP - General Family Medicine 01/17/24 Gloria Martinez MD #[address] [address] Consulting Physician Urology 04/30/24
--- OUTSIDE RECORDS SUMMARY | 2025-05-17 17:24 | XMS_ITS | Encounter Summary ---
Author Organization [facility] Address [address] [place] [address] Phone Care Team Providers Care Stator Connector Name Role Phone Jabier Peck MD Primary Care Provider [phone] Srikanth Adrian MD Unavailable Tad Romero MD Primary Care Provider [phone] Gloria Martinez MD Unavailable [phone] Reason for Visit * Reason Onset Date Comments Medication Refill 10/27/2021 Encounter Details Date Type Department Care Team (Late st Contact Info) Description 10/27/2021 Refill [facility] #2 [place] [address] Jabier Peck MD #[address] [address] Medication Refill Social History Tobacco Use Types [...] CDT Gender Identity Male 05/03/2023 12:44 PM JUMPBASTING COLLAR BASTER Sexual Orientation Lesbian or Wolff 05/03/2023 12 :44 PM JUMPBASTING COLLAR BASTER documented as of this encounter Miscellaneous Notes [...] 11/16/20 Office Visit Kishore Prieto APRN, RICHARD [facility] st Contact Info) Description 07/14/2025 1:30 PM JUMPBASTING COLLAR BASTER [facility] [place] #[address] [place] [address] Aria Delong, NEWS WIRE PHOTO OPERATOR, FEDERAL DISTRICT CLERK [address] [place] [address] documented as of this encounter Visit Diagnoses Not on filedocumented in this encounter Additional Health Concerns Infection Onset Date Last Indicated Resolved Time COVID - 19 Confirmed 05/31/2022 05/31/2022 023 12:16 AM JUMPBASTING COLLAR BASTER Respiratory Rule Out - RPA 02/26/2023 02/26/2023 0 02/26/2023 11:31 AM CDT COVID - 19 02/26/2023 02/26/2023 03/08/2023 12:1 6 AM CDT documented as of this encounter Care Teams Stator Connector Relationship Specialty Start Date End Date Jabier Peck MD #2 [facility] [address] [place] [address] PCP - General Family Medicine 06/22/20 01/16/24 Tad Mcintosh MD [address] [place] [address] PCP - General Family Medicine 01/17/24 Srikanth Adrian MD #2 [facility] [address] [place] [address] Balloon Sander Cardiovascular Disease - Cardiology 02/02/22 08/06/24 Gloria Martinez MD #2 [facility] [address] [place] [address] Consulting Physician Urology 04/30/24 documented as of this encounter
--- OUTSIDE RECORDS SUMMARY | 2025-05-17 17:24 | XMS_ITS | Encounter Summary ---
Author Organization [facility] Address [address] [place] [address] Phone Care Team Providers Care Ivf Embryologist Name Role Phone Jabier Peck MD Primary Care Provider [phone] Srikanth Adrian MD Unavailable Tad Romero MD Primary Care Provider [phone] Gloria Martinez MD Unavailable [phone] Reason for Visit * Reason Comments Medication Refill Encounter Details Date Type Department Care Team (Late st Contact Info) Description 10/24/2022 Refill [facility] #2 [place] [address] Jabier Peck MD #[address] [address] Medication Refill Social History Tobacco Use Types [...] CDT Gender Identity Male 05/03/2023 12:44 PM TEMPER MILL ROLLER Sexual Orientation Lesbian or Wolff 05/03/2023 12 :44 PM TEMPER MILL ROLLER documented as of this encounter Miscellaneous [...] Office Visit Kishore Prieto APRN, RICHARD [facility] 01/31/22 Office Visit Kishore Prieto APRN, RICHARD [place] 12/13/21 Telemedicine Kishore Prieto APRN, RICHARD [facility] [place] Showing [...] st Contact Info) Description 07/14/2025 1:30 PM TEMPER MILL ROLLER [facility] - [place] #[address] [place] [address] Aria Delong APRN, WATER RIGHTS SPECIALIST #2 [place] [address] documented as of this encounter Visit Diagnoses Not on filedocumented in this encounter Additional Health Concerns Infection Onset Date Last Indicated Resolved Time Respiratory Rule Out - RPA 02/26/2023 02/26/2023 0 02/26/2023 11:31 AM CDT COVID - 19 02/26/2023 02/26/2023 03/08/2023 12:1 6 AM CDT documented as of this encounter Care Teams Ivf Embryologist Relationship Specialty Start Date End Date Jabier Peck MD #2 [facility] [address] [place] [address] PCP - General Family Medicine 06/22/20 01/16/24 Tad Mcintosh MD [address] [place] [address] PCP - General Family Medicine 01/17/24 Srikanth Adrian MD #2 [facility] [address] [place] [address] Engine Hostler Cardiovascular Disease - Cardiology 02/02/22 08/06/24 Gloria Martinez MD #2 [facility] [address] [place] [address] Consulting Physician Urology 04/30/24 documented as of this encounter
--- OUTSIDE RECORDS SUMMARY | 2025-05-17 17:24 | XMS_ITS | Encounter Summary ---
Author Organization [facility] Address [address] [place] [address] Phone Care Team Providers Care Curb Builder Name Role Phone Jabier Peck MD Primary Care Provider [phone] Srikanth Adrian MD Unavailable Tad Romero MD Primary Care Provider [phone] Gloria Martinez MD Unavailable [phone] Reason for Visit * Reason Comments Medication Refill Encounter Details Date Type Department Care Team (Late st Contact Info) Description 06/16/2021 Refill [facility] Family Medicine [facility] #2 [place] [address] Jabier Peck MD #[address] [address] Medication Refill Social History Tobacco Use Types [...] Gender Identity Male 05/03/2023 12:44 PM PURCHASING MANAGER Sexual Orientation Lesbian or Wolff 05/03/2023 12 :44 PM PURCHASING MANAGER COVID-19 Exposure Response Date Recorded In the last month, have you been in contact with someone who was confirmed or suspected to have Coronavirus / COVID-19? No / Unsure 06/16/2021 1:10 PM PURCHASING MANAGER documented as of this encounter Miscellaneous [...] Dept 04/29/21 Office Visit [facility] [place] 03/16/21 Office Visit Kishore Prieto APRN, RICHARD [facility] [place] 11/16/20 Office Visit Kishore Prieto APRN, RICHARD [facility] [place] 10/20/20 Office Visit Jabier Peck MD [facility] [place] 08/20/20 Telemedicine Kishore Prieto APRN, RICHARD [facility] [place] 08/06/20 Telemedicine Kishore Prieto APRN, RICHARD [facility] [place] 06/22/20 Office Visit Kishore Prieto APRN, XRAY TECH [facility] [place] Showing recent visits within past 365 days and meeting all other requirements Future Appointments Date Type Provider Dept 08/01/21 Appointment Jabier Peck MD [facility] [place] Showing future appointments within next 90 days and meeting all other requirements HASING MANAGER documented in this encounter Plan of Treatment Upcoming Encounters Date Type Department Care Team (Late st Contact Info) Description 07/14/2025 1:30 PM PURCHASING MANAGER Office Visit [facility] - Neurology - [place] #[address] [place] [address] Aria Delong, FOOTBALL COACH, FIRE REGULATOR #2 [place] [address] documented as of this encounter Visit Diagnoses Diagnosis Cervical radiculopathy Brachial neuritis or radiculitis nos documented in this encounter Additional Health Concerns Infection Onset Date Last Indicated Resolved Time COVID - 19 Confirmed 05/31/2022 05/31/2022 023 12:16 AM PURCHASING MANAGER Respiratory Rule Out - RPA 02/26/2023 02/26/2023 0 02/26/2023 11:31 AM CDT COVID - 19 02/26/2023 02/26/2023 03/08/2023 12:1 6 AM CDT documented as of this encounter Care Teams Curb Builder Relationship Specialty Start Date End Date Jabier Peck MD #[address] [address] PCP - General Family Medicine 06/22/20 01/16/24 Tad Mcintosh MD [address] [place] [address] PCP - General Family Medicine 01/17/24 Srikanth Adrian MD #[address] [address] Harbor Engineer Cardiovascular Disease - Cardiology 02/02/22 08/06/24 Gloria Martinez MD #2 [facility] [address] [place] [address] Consulting Physician Urology 04/30/24 documented as of this encounter
--- OUTSIDE RECORDS SUMMARY | 2025-05-17 17:24 | XMS_ITS | Encounter Summary ---
Author Organization [facility] Address [address] [place] [address] Phone Care Team Providers Care Continuity Tester Name Role Phone Jabier Peck MD Primary Care Provider [phone] Srikanth Adrian MD Unavailable Tad Romero MD Primary Care Provider [phone] Gloria Martinez MD Unavailable [phone] Reason for Visit * Reason Comments Medication Refill Encounter Details Date Type Department Care Team (Late st Contact Info) Description 02/27/2023 [facility]ill [facility] #2 [place] [id number] Jabier Peck MD #[address] [address] Medication Refill Social History Tobacco Use Types [...] Gender Identity Male 05/03/2023 12:44 PM COMPUTER AIDED DESIGN DRAFTER Sexual Orientation Lesbian or Owlff 05/03/2023 12 :44 PM COMPUTER AIDED DESIGN DRAFTER COVID-19 Exposure Response Date Recorded In the [...] Contact Info) Description 07/14/2025 1:30 PM COMPUTER AIDED DESIGN DRAFTER Office Visit [facility] - Neurology - [place] #2 [place] [address] Aria Delong, SETTER UP, REHABILITATION PHYSICIAN #2 [place] [address] documented as of this encounter Visit Diagnoses Diagnosis Cervical radiculopathy Brachial neuritis or radiculitis nos documented in this encounter Additional Health Concerns Infection Onset Date Last Indicated Resolved Time COVID - 19 02/26/2023 02/26/2023 03/08/2023 12:1 6 AM CDT documented as of this encounter Care Teams Continuity Tester Relationship Specialty Start Date End Date Jabier Peck MD #2 [facility] [address] [place] [address] PCP - General Family Medicine 06/22/20 01/16/24 Tad Mcintosh MD [address] [place] [address] PCP - General Family Medicine 01/17/24 Srikanth Adrian MD #2 [facility] [address] [place] [address] Hvac/R Instructor Cardiovascular Disease - Cardiology 02/02/22 08/06/24 Gloria Martinez MD #2 [facility] [address] [place] [address] Consulting Physician Urology 04/30/24 documented as of this encounter
--- OUTSIDE RECORDS SUMMARY | 2025-05-17 17:24 | XMS_ITS | Encounter Summary ---
Author Organization [facility] Address [address] [place] [address] Phone Care Team Providers Care Human Resources Temp Name Role Phone Jabier Peck MD Primary Care Provider [phone] Srikanth Adrian MD Unavailable Tad Romero MD Primary Care Provider [phone] Gloria Martinez MD Unavailable [phone] Reason for Visit * Reason Comments Medication Refill Encounter Details Date Type Department Care Team (Late st Contact Info) Description 07/20/2021 Refill [facility] #2 [place] [address] Jabier Peck MD #[address] [address] Medication Refill Social History Tobacco Use Types [...] CDT Gender Identity Male 05/03/2023 12:44 PM LAW RESEARCHER Sexual Orientation Lesbian or Wolff 05/03/2023 12 :44 PM LAW RESEARCHER COVID-19 Exposure Response Date Recorded In the last month, have you been in contact with someone who was confirmed or suspected to have Coronavirus / COVID-19? No / Unsure 07/14/2021 12:17 PM LAW RESEARCHER documented as of this encounter Miscellaneous Notes [...] [facility] 08/06/20 Telemedicine Kishore Prieto APRN, REFINING MACHINE OPERATOR [facility] [place] Showing recent visits within past 365 days and meeting all other requirements Future Appointments Date Type Provider Dept 08/01/21 Appointment Jabier Peck MD [facility] Showing future appointments within next 90 days and meeting all other requirements RESEARCHER documented in this encounter Plan of Treatment Upcoming Encounters Date Type Department Care Team (Late st Contact Info) Description 07/14/2025 1:30 PM LAW RESEARCHER Office Visit [facility] - Neurology - [place] #2 [place] [address] Aria Delong APRN, CHIP FRIER #2 [facility] [place] [place] [address] documented as of this encounter Visit Diagnoses Diagnosis Cervical radiculopathy Brachial neuritis or radiculitis nos documented in this encounter Additional Health Concerns Infection Onset Date Last Indicated Resolved Time COVID - 19 Confirmed 05/31/2022 05/31/2022 023 12:16 AM LAW RESEARCHER Respiratory Rule Out - RPA 02/26/2023 02/26/2023 0 02/26/2023 11:31 AM CDT COVID - 19 02/26/2023 02/26/2023 03/08/2023 12:1 6 AM CDT documented as of this encounter Care Teams Human Resources Temp Relationship Specialty Start Date End Date Jabier Peck MD #[address] [address] PCP - General Family Medicine 06/22/20 01/16/24 Tad Mcintosh MD [address] [place] [address] PCP - General Family Medicine 01/17/24 Srikanth Adrian MD #2 [facility] [address] [place] [address] Animal Health Technician Cardiovascular Disease - Cardiology 02/02/22 08/06/24 Gloria Martinez MD #2 [facility] [address] [place] [address] Consulting Physician Urology 04/30/24 documented as of this encounter
--- OUTSIDE RECORDS SUMMARY | 2025-05-17 17:24 | XMS_ITS | Encounter Summary ---
Author Organization [facility] Address [address] [place] [address] Phone Care Team Providers Care Elevator Installer Name Role Phone Jabier Peck MD Primary Care Provider [phone] Srikanth Adrian MD Unavailable Tad Romero MD Primary Care Provider [phone] Gloria Martinez MD Unavailable [phone] Reason for Visit * Reason Onset Date Comments Medication Refill 03/28/2021 Encounter Details Date Type Department Care Team (Late st Contact Info) Description 03/28/2021 Refill [facility] Family [facility] #2 [place] [address] Jabier Peck MD #[address] [address] Medication Refill Social History Tobacco Use Types [...] Gender Identity Male 05/03/2023 12:44 PM PHOTO PRINT SPECIALIST Sexual Orientation Lesbian or Wolff 05/03/2023 12 :44 PM PHOTO PRINT SPECIALIST COVID-19 Exposure Response Date Recorded In [...] Dept 03/16/21 Office Visit Kishore Prieto APN, HAMMER REPAIRER [facility] 11/16/20 Office Visit Kishore Prieto APN, HAMMER REPAIRER [facility] 10/20/20 Office Visit [facility]ier Peck MD [facility] [place] 08/20/20 Telemedicine Kishore Prieto APN, RICHARD [facility] [place] 08/06/20 Telemedicine Kishore Prieto APN, HAMMER REPAIRER [facility] 06/22/20 Office Visit Kishore Prieto APN, HAMMER REPAIRER [facility] [place] Showing recent visits within past 365 days and meeting all other requirements Future Appointments Date Type Provider Dept 04/08/21 Appointment Jabier Peck MD [facility] [place] Showing future appointments within next 90 days and meeting all other requirements * Telephone Encounter - Yadira York - 03/28/2021 12:47 PM CDT Received a faxed Rx request from pharmacy. Reordered refill medication(s) requested and pended for nurse and physician/MARVA review. Refill encounter routed to nurse [facility] for processing. documented in this encounter Plan of Treatment Upcoming Encounters Date Type Department Care Team (Late st Contact Info) Description 07/14/2025 1:30 PM PHOTO PRINT SPECIALIST Office Visit [facility] - [facility]rology - [place] #2 [place] [address] Aria Delong, INTERIOR DESIGN PROFESSIONAL, CUT OFF SAW TENDER METAL #2 [place] [address] documented as of this encounter Visit Diagnoses Not on filedocumented in this encounter Additional Health Concerns Infection Onset Date Last Indicated Resolved Time COVID - 19 Confirmed 05/31/2022 05/31/2022 023 12:16 AM PHOTO PRINT SPECIALIST Respiratory Rule Out - RPA 02/26/2023 02/26/2023 0 02/26/2023 11:31 AM CDT COVID - 19 02/26/2023 02/26/2023 03/08/2023 12:1 6 AM CDT documented as of this encounter Care Teams Elevator Installer Relationship Specialty Start Date End Date Jabier Peck MD #[address] [address] PCP - General Family Medicine 06/22/20 01/16/24 Tad Mcintosh MD [address] [place] [address] PCP - General Family Medicine 01/17/24 Srikanth Adrian MD #2 [facility] [address] [place] [address] Brewery Technician Cardiovascular Disease - Cardiology 02/02/22 08/06/24 Gloria Martinez MD #2 [facility] [address] [place] [address] Consulting Physician Urology 04/30/24 documented as of this encounter
--- OUTSIDE RECORDS SUMMARY | 2025-05-17 17:24 | XMS_ITS | Encounter Summary ---
Author Organization [facility] Address [address] [place] [address] Phone Care Team Providers Care Learning And Development Officer Name Role Phone Jabier Peck MD Primary Care Provider [phone] Srikanth Adrian MD Unavailable Tad Romero MD Primary Care Provider [phone] Gloria Martinez MD Unavailable [phone] Reason for Visit * Reason Comments Medication Refill Encounter Details Date Type Department Care Team (Late st Contact Info) Description 03/19/2023 Refill [facility] #2 [place] [phone] Jabier Peck MD #[address] [address] Medication Refill Social History Tobacco Use Types [...] Gender Identity Male 05/03/2023 12:44 PM ENVIRONMENTAL TECHNICAL OFFICER Sexual Orientation Lesbian or Wolff 05/03/2023 12 :44 PM ENVIRONMENTAL TECHNICAL OFFICER COVID-19 Exposure Response Date Recorded In [...] [facility] 05/03/22 Telemedicine Jabier Peck MD [facility] [place] Showing recent visits within past 365 days and meeting all other requirements Future Appointments No visits were found meeting these conditions. Showing future appointments within next 90 days and meeting all other requirements documented in this encounter Plan of Treatment Upcoming Encounters Date Type Department Care Team (Late st Contact Info) Description 07/14/2025 1:30 PM ENVIRONMENTAL TECHNICAL OFFICER Office Visit [facility] - Neurology - [place] #2 [place] [address] Aria Delong APRN, POWER PLANT TECHNICIAN #2 [place] [address] documented as of this encounter Visit Diagnoses Diagnosis Cervical radiculopathy Brachial neuritis or radiculitis nos Lumbar radiculopathy Thoracic or lumbosacral neuritis or radiculitis, unspecified documented in this encounter Care Teams Learning And Development Officer Relationship Specialty Start Date End Date Jabier Peck MD #2 [facility] [address] [place] [address] PCP - General Family Medicine 06/22/20 01/16/24 Tad Mcintosh MD [address] [place] [address] PCP - General Family Medicine 01/17/24 Srikanth Adrian MD #2 [facility] [address] [place] [address] Finisher Fiberglass Boat Parts Cardiovascular Disease - Cardiology 02/02/22 08/06/24 Gloria Martinez MD #2 [facility] [address] [place] [address] Consulting Physician Urology 04/30/24 documented as of this encounter
--- OUTSIDE RECORDS SUMMARY | 2025-05-17 17:24 | XMS_ITS | Encounter Summary ---
Author Organization [facility] Address [address] [place] [address] Phone Care Team Providers Care Armored Transport Service Manager Name Role Phone Jabier Peck MD Primary Care Provider [phone] Srikanth Adrian MD Unavailable Tad Romero MD Primary Care Provider [phone] Gloria Martinez MD Unavailable [phone] Reason for Visit * Reason Comments Medication Refill Encounter Details Date Type Department Care Team (Late st Contact Info) Description 07/22/[address] [facility] On[facility] [address] [place] [address] Jt Morillo MD [address] [place] [address] Medication Refill Social History Tobacco Use Types [...] CDT Gender Identity Male 05/03/2023 12:44 PM SHIPPING/RECEIVING MANAGER Sexual Orientation Lesbian or Wolff 05/03/2023 12 :44 PM SHIPPING/RECEIVING MANAGER COVID-19 Exposure Response Date Recorded In the last month, have you been in contact with someone who was confirmed or suspected to have Coronavirus / COVID-19? No / Unsure 07/14/2021 12:17 PM SHIPPING/RECEIVING MANAGER documented as of this encounter Miscellaneous Notes * Telephone Encounter - Michelle Wharton RN - 07/22/2021 2:26 PM SHIPPING/RECEIVING MANAGER Refilled Eliquis PING/RECEIVING MANAGER documented in this encounter Plan of Treatment Upcoming Encounters Date Type Department Care Team (Late st Contact Info) Description 07/14/2025 1:30 PM SHIPPING/RECEIVING MANAGER Office Visit [facility] - Neurology [facility] #2 [place] [address] Aria Delong APRN, WATER FILTRATION TECHNICIAN #2 [place] [address] documented as of this encounter Visit Diagnoses Diagnosis History of thrombophilia associated with MTHFR mutation documented in this encounter Additional Health Concerns Infection Onset Date Last Indicated Resolved Time COVID - 19 Confirmed 05/31/2022 05/31/2022 023 12:16 AM SHIPPING/RECEIVING MANAGER Respiratory Rule Out - RPA 02/26/2023 02/26/2023 0 02/26/2023 11:31 AM CDT COVID - 19 02/26/2023 02/26/2023 03/08/2023 12:1 6 AM CDT documented as of this encounter Care Teams Armored Transport Service Manager Relationship Specialty Start Date End Date Jabier Peck MD #[address] [address] PCP - General Family Medicine 06/22/20 01/16/24 Tad Mcintosh MD [address] [place] [address] PCP - General Family Medicine 01/17/24 Srikanth Adrian MD #2 [facility] [address] [place] [address] Straight Line Press Setter Cardiovascular Disease - Cardiology 02/02/22 08/06/24 Gloria Martinez MD #[address] [facility] [address] [place] [address] Consulting Physician Urology 04/30/24 documented as of this encounter
--- OUTSIDE RECORDS SUMMARY | 2025-05-17 17:24 | XMS_ITS | Encounter Summary ---
Author Organization [facility] Address [address] [place] [address] Phone Care Team Providers Care Cataract Lens Generator Name Role Phone Jabier Peck MD Primary Care Provider [phone] Srikanth Adrian MD Unavailable Tad Romero MD Primary Care Provider [phone] Gloria Martinez MD Unavailable [phone] Reason for Visit * Reason Comments Medication Refill Encounter Details Date Type Department Care Team (Late st Contact Info) Description 05/14/2022 Refill [facility] #2 [place] [address] Jabier Peck MD #[address] [address] Medication Refill Social History Tobacco Use Types [...] CDT Gender Identity Male 05/03/2023 12:44 PM COOKER CASING Sexual Orientation Lesbian or Wolff 05/03/2023 12 :44 PM COOKER CASING COVID-19 Exposure Response Date Recorded In the last 10 days, have yo u been in contact with someone who was confirmed or suspected to have Coronavirus/COVID-19? No / Unsure 05/10/2022 2:32 PM COOKER CASING documented as of this encounter Miscellaneous Notes * Telephone Encounter - Anjali Hartley RN - 05/15/2022 9:34 AM COOKER CASING PDMP 04/18/2022 #45, 15 day supply. Medication [...] days and meeting all other requirements [facility] documented in this encounter Plan of Treatment Upcoming Encounters Date Type Department Care Team (Late st Contact Info) Description 07/14/2025 1:30 PM COOKER CASING Office Visit [facility] - Neurology - [place] #2 [place] [address] Aria Delong APRN, BUCKET OPERATOR #2 [place] [address] documented as of this encounter Visit Diagnoses Diagnosis Cervical radiculopathy Brachial neuritis or radiculitis nos documented in this encounter Additional Health Concerns Infection Onset Date Last Indicated Resolved Time COVID - 19 Confirmed 05/31/2022 05/31/2022 023 12:16 AM COOKER CASING Respiratory Rule Out - RPA 02/26/2023 02/26/2023 0 02/26/2023 11:31 AM CDT COVID - 19 02/26/2023 02/26/2023 03/08/2023 12:1 6 AM CDT documented as of this encounter Care Teams Cataract Lens Generator Relationship Specialty Start Date End Date Jabier Peck MD #[address] [address] PCP - General Family Medicine 06/22/20 01/16/24 Tad Mcintosh MD [address] [place] [address] PCP - General Family Medicine 01/17/24 Srikanth Adrian MD #[address] [address] Director Of Corporate Strategy Cardiovascular Disease - Cardiology 02/02/22 08/06/24 Gloria Martinez MD #[address] [address] Consulting Physician Urology 04/30/24 documented as of this encounter
--- OUTSIDE RECORDS SUMMARY | 2025-05-17 17:24 | XMS_ITS | Encounter Summary ---
Author Organization [facility] Address [address] [place] [address] Phone Care Team Providers Care Antique Dealer Name Role Phone Jabier Peck MD Primary Care Provider [phone] Srikanth Adrian MD Unavailable Tad Romero MD Primary Care Provider [phone] Gloria Martinez MD Unavailable [phone] Reason for Visit * Reason Onset Date Comments Advice Only 12/18/2022 Encounter Details Date Type Department Care Team (Late st Contact Info) Description 12/18/2022 Telephone [facility] [address] [place] [address] Jabier Peck MD #[address] [address] Advice Only Social History Tobacco Use Types [...] CDT Gender Identity Male 05/03/2023 12:44 PM CHANNEL PROCESS SUPERVISOR Sexual Orientation Lesbian or Wolff 05/03/2023 12 :44 PM CHANNEL PROCESS SUPERVISOR documented as of this encounter Miscellaneous [...] st Contact Info) Description 07/14/2025 1:30 PM CHANNEL PROCESS SUPERVISOR Office Visit [facility] - Neurology [facility] #2 [place] [address] Aria Delong, PRODUCE WEIGHER, NIPPLE THREADER #2 [place] [address] documented as of this encounter Visit Diagnoses Not on filedocumented in this encounter Additional Health Concerns Infection Onset Date Last Indicated Resolved Time Respiratory Rule Out - RPA 02/26/2023 02/26/2023 0 02/26/2023 11:31 AM CDT COVID - 19 02/26/2023 02/26/2023 03/08/2023 12:1 6 AM CDT documented as of this encounter Care Teams Antique Dealer Relationship Specialty Start Date End Date Jabier Peck MD #[address] [address] PCP - General Family Medicine 06/22/20 01/16/24 Tad Mcintosh MD [address] [place] [address] PCP - General Family Medicine 01/17/24 Srikanth Adrian MD #[address] [address] Pro Shop Attendant Cardiovascular Disease - Cardiology 02/02/22 08/06/24 Gloria Martinez MD #[address] [facility] [address] [place] [address] Consulting Physician Urology 04/30/24 documented as of this encounter
--- OUTSIDE RECORDS SUMMARY | 2025-05-17 17:24 | XMS_ITS | Encounter Summary ---
Author Organization [facility] Address [address] [place] [address] Phone Care Team Providers Care Columnist/Commentator Name Role Phone Jabier Peck MD Primary Care Provider [phone] Srikanth Adrian MD Unavailable Tad Romero MD Primary Care Provider [phone] Gloria Martinez MD Unavailable [phone] Reason for Visit * Reason Comments Medication Refill Encounter Details Date Type Department Care Team (Late st Contact Info) Description 06/21/2022 Refill [facility] Family [facility] #2 [place] [address] Jabier Peck MD #[address] [address] Medication Refill Social History Tobacco Use Types [...] CDT Gender Identity Male 05/03/2023 12:44 PM DURABILITY ENGINEER Sexual Orientation Lesbian or Wolff 05/03/2023 12 :44 PM DURABILITY ENGINEER COVID-19 Exposure Response Date Recorded In the last 10 days, have tabby u been in contact with someone who was confirmed or suspected to have Coronavirus/COVID-19? Yes 05/31/2022 2:12 PM DURABILITY ENGINEER documented as of this encounter Miscellaneous Notes * Telephone Encounter - Libertad Shearer, RN - 06/21/2022 1:33 PM CST Name from pharmacy: [facility] MCG CAPSULE Will file in chart as: [facility] MCG Capsule The original prescription was discontinued on 02/24/2022 by Kishore Prieto APRN, MANAGER PROGRAMMING for thefollowing reason: Med List Clean Up. Renewing this prescription may not be appropriate. BILITY ENGINEER documented in this encounter Plan of Treatment Upcoming Encounters Date Type Department Care Team (Late st Contact Info) Description 07/14/2025 1:30 PM DURABILITY ENGINEER Office Visit [facility] - Neurology [facility] #2 [place] [address] Aria Delong APRN, TEST CAR DRIVER #2 [place] [address] documented as of this encounter Visit Diagnoses Not on filedocumented in this encounter Additional Health Concerns Infection Onset Date Last Indicated Resolved Time Respiratory Rule Out - RPA 02/26/2023 02/26/2023 0 02/26/2023 11:31 AM CDT COVID - 19 02/26/2023 02/26/2023 03/08/2023 12:1 6 AM CDT documented as of this encounter Care Teams Columnist/Commentator Relationship Specialty Start Date End Date Jabier Peck MD #[address] [address] PCP - General Family Medicine 06/22/20 01/16/24 Tad Mcintosh MD [address] [place] [address] PCP - General Family Medicine 01/17/24 Srikanth Adrian MD #2 [facility] [address] [place] [address] Accountant Certified Public Cardiovascular Disease - Cardiology 02/02/22 08/06/24 Gloria Martinez MD #2 [facility] [address] [place] [address] Consulting Physician Urology 04/30/24 documented as of this encounter
--- OUTSIDE RECORDS SUMMARY | 2025-05-17 17:24 | XMS_ITS | Encounter Summary ---
Author Organization [facility] Address [address] [place] [address] Phone Care Team Providers Care Fleshing Machine Operator Name Role Phone Srikanth Adrian MD Unavailable Tad Romero MD Primary Care Provider [phone] Gloria Martinez MD Unavailable [phone] Reason for Visit * Reason Comments Medication Refill Encounter Details Date Type Department Care Team (Late st Contact Info) Description 03/15/2024 Refill [facility] #2 [place] [address] Kishore Prieto APRN, OIL FIELD OPERATOR #[address] [address] Medication Refill Social History Tobacco Use Types [...] CDT Gender Identity Male 05/03/2023 12:44 PM FOURDRINIER TENDER Sexual Orientation Lesbian or Wolff 05/03/2023 12 :44 PM FOURDRINIER TENDER documented as of this encounter Miscellaneous Notes * Telephone Encounter - Francine Soto RN - 03/17/2024 12:59 PM CDT PCP Tad Mcintosh MD documented in this encounter Plan of Treatment Upcoming Encounters Date Type Department Care Team (Late st Contact Info) Description 07/14/2025 1:30 PM FOURDRINIER TENDER Office Visit [facility] - Neurology - [place] #2 [place] [address] Aria Delong APRN, BENEFITS SPECIALIST #2 [place] [address] documented as of this encounter Visit Diagnoses Not on filedocumented in this encounter Care Teams Fleshing Machine Operator Relationship Specialty Start Date End Date Tad Mcintosh MD [address] [place] [address] PCP - General Family Medicine 01/17/24 Srikanth Adrian MD Radial Saw Operator Cardiovascular Disease - Cardiology 02/02/22 08/06/24 Gloria Martinez MD #[address] [address] Consulting Physician Urology 04/30/24 documented as of this encounter
--- OUTSIDE RECORDS SUMMARY | 2025-05-17 17:24 | XMS_ITS | Encounter Summary ---
Author Organization [facility] Address [address] [place] [address] Phone Care Team Providers Care Communication Equipment Mechanic Name Role Phone Srikanth Adrian MD Unavailable Tad Romero MD Primary Care Provider [phone] Gloria Martinez MD Unavailable [phone] Reason for Visit * Reason Comments Medication Refill Encounter Details Date Type Department Care Team (Late st Contact Info) Description 05/28/2024 [facility]ill [facility] [address] [place] [id number] Jabier Peck MD #[address] [address] Medication Refill Social History Tobacco Use Types [...] CDT Gender Identity Male 05/03/2023 12:44 PM POLICE PATROL OFFICER Sexual Orientation Lesbian or Wolff 05/03/2023 12 :44 PM POLICE PATROL OFFICER documented as of this encounter Miscellaneous Notes * Telephone Encounter - Francine Soto RN - 05/28/2024 11:10 AM CST PCP: Tad Mcintosh MD CE PATROL OFFICER documented in this encounter Plan of Treatment Upcoming Encounters Date Type Department Care Team (Late st Contact Info) Description 07/14/2025 1:30 PM POLICE PATROL OFFICER Office Visit [facility] - Neurology - [place] [address] [place] [address] Aria Delong APRN, FUR BLOWER [address]2 [place] [address] documented as of this encounter Visit Diagnoses Not on filedocumented in this encounter Care Teams Communication Equipment Mechanic Relationship Specialty Start Date End Date Tad Mcintosh MD [address] [place] [address] PCP - General Family Medicine 01/17/24 Srikanth Adrian MD Certified Bench Jeweler Technician Cardiovascular Disease - Cardiology 02/02/22 08/06/24 Gloria Martinez MD #[address] [address] Consulting Physician Urology 04/30/24 documented as of this encounter
--- OUTSIDE RECORDS SUMMARY | 2025-05-17 17:24 | XMS_ITS | Encounter Summary ---
Author Organization [facility] Address [address] [place] [address] Phone Care Team Providers Care Rubber Belt Splicer Name Role Phone Jabier Peck MD Primary Care Provider [phone] Srikanth Adrian MD Unavailable Tad Romero MD Primary Care Provider [phone] Gloria Martinez MD Unavailable [phone] Reason for Visit * Reason Comments Medication Refill Encounter Details Date Type Department Care Team (Late st Contact Info) Description 06/20/2022 Refill [facility] [address] [place] [address] Jabier Peck MD #[address] [address] Medication Refill Social History Tobacco Use Types [...] CDT Gender Identity Male 05/03/2023 12:44 PM MOLDING PROCESS TECHNICIAN Sexual Orientation Lesbian or Wolff 05/03/2023 12 :44 PM MOLDING PROCESS TECHNICIAN COVID-19 Exposure Response Date Recorded In the last 10 days, have yo u been in contact with someone who was confirmed or suspected to have Coronavirus/COVID-19? Yes 05/31/2022 2:12 PM MOLDING PROCESS TECHNICIAN documented as of this encounter Miscellaneous [...] days and meeting all other requirements ING PROCESS TECHNICIAN documented in this encounter Plan of Treatment Upcoming Encounters Date Type Department Care Team (Late st Contact Info) Description 07/14/2025 1:30 PM MOLDING PROCESS TECHNICIAN Office Visit [facility] - Neurology - [place] [address] [place] [address] Aria Delong, DIRECTOR CLINICAL INFORMATION SERVICES, PHOTOGRAPHY TEACHER [address] [place] [address] documented as of this encounter Visit Diagnoses Diagnosis Cervical radiculopathy Brachial neuritis or radiculitis nos documented in this encounter Additional Health Concerns Infection Onset Date Last Indicated Resolved Time COVID - 19 Confirmed 05/31/2022 05/31/2022 023 12:16 AM MOLDING PROCESS TECHNICIAN Respiratory Rule Out - RPA 02/26/2023 02/26/2023 0 02/26/2023 11:31 AM CDT COVID - 19 02/26/2023 02/26/2023 03/08/2023 12:1 6 AM CDT documented as of this encounter Care Teams Rubber Belt Splicer Relationship Specialty Start Date End Date Jabier Peck MD #[address] [address] PCP - General Family Medicine 06/22/20 01/16/24 Tad Mcintosh MD [address] [place] [address] PCP - General Family Medicine 01/17/24 Srikanth Adrian MD #[address] [address] Surgical Garment Assembly Supervisor Cardiovascular Disease - Cardiology 02/02/22 08/06/24 Gloria Martinez MD #2 [facility] [address] [place] [address] Consulting Physician Urology 04/30/24 documented as of this encounter
--- OUTSIDE RECORDS SUMMARY | 2025-05-17 17:24 | XMS_ITS | Encounter Summary ---
Author Organization [facility] Address [address] [place] [address] Phone Care Team Providers Care Acetylene Cylinder Packing Mixer Name Role Phone Jabier Peck MD Primary Care Provider [phone] Srikanth Adrian MD Unavailable Tad Romero MD Primary Care Provider [phone] Gloria Martinez MD Unavailable [phone] Reason for Visit * Reason Comments Medication Refill Encounter Details Date Type Department Care Team (Late st Contact Info) Description 08/19/2021 Refill [facility] Medicine [facility] #2 [place] [address] Jabier Peck MD #[address] [address] Medication Refill Social History Tobacco Use Types [...] CDT Gender Identity Male 05/03/2023 12:44 PM WINDOW SHADE RING SEWER Sexual Orientation Lesbian or Wolff 05/03/2023 12 :44 PM WINDOW SHADE RING SEWER COVID-19 Exposure Response Date Recorded In the last month, have you been in contact with someone who was confirmed or suspected to have Coronavirus / COVID-19? No / Unsure 08/01/2021 1:35 PM WINDOW SHADE RING SEWER documented as of this encounter Miscellaneous Notes [...] [place] 08/20/20 Telemedicine Kishore Prieto APRN, [facility] [place] Showing recent visits within past 365 days and meeting all other requirements Future Appointments Date Type Provider Dept 10/31/21 Appointment Jabier Peck MD [facility] Showing future appointments within next 90 days and meeting all other requirements OW SHADE RING SEWER documented in this encounter Plan of Treatment Upcoming Encounters Date Type Department Care Team (Late st Contact Info) Description 07/14/2025 1:30 PM WINDOW SHADE RING SEWER Office Visit [facility] - Neurology - [place] [address] [place] [address] Aria Delong, GROUNDSKEEPING MAINTENANCE, STUDENT DEVELOPMENT ADVISOR [address] [place] [address] documented as of this encounter Visit Diagnoses Diagnosis Cervical radiculopathy Brachial neuritis or radiculitis nos documented in this encounter Additional Health Concerns Infection Onset Date Last Indicated Resolved Time COVID - 19 Confirmed 05/31/2022 05/31/2022 023 12:16 AM WINDOW SHADE RING SEWER Respiratory Rule Out - RPA 02/26/2023 02/26/2023 0 02/26/2023 11:31 AM CDT COVID - 19 02/26/2023 02/26/2023 03/08/2023 12:1 6 AM CDT documented as of this encounter Care Teams Acetylene Cylinder Packing Mixer Relationship Specialty Start Date End Date Jabier Peck MD #[address] [address] PCP - General Family Medicine 06/22/20 01/16/24 Tad Mcintosh MD [address] [place] [address] PCP - General Family Medicine 01/17/24 Srikanth Adrian MD #2 [facility] [address] [place] [address] Pipe Fitter Welding Cardiovascular Disease - Cardiology 02/02/22 08/06/24 Gloria Martinez MD #[address] [facility] [address] [place] [address] Consulting Physician Urology 04/30/24 documented as of this encounter
--- OUTSIDE RECORDS SUMMARY | 2025-05-17 17:24 | XMS_ITS | Encounter Summary ---
Author Organization [facility] Address [address] [place] [address] Phone Care Team Providers Care Pound Attendant Name Role Phone Jabier Peck MD Primary Care Provider [phone] Srikanth Adrian MD Unavailable Tad Romero MD Primary Care Provider [phone] Gloria Martinez MD Unavailable [phone] Reason for Visit * Reason Comments Medication Refill Encounter Details Date Type Department Care Team (Late st Contact Info) Description 02/24/2022 Refill [facility] Family [facility] #2 [place] [address] Jabier Peck MD #[address] [address] Medication Refill Social History Tobacco Use Types [...] CDT Gender Identity Male 05/03/2023 12:44 PM GOLD BURNISHER Sexual Orientation Lesbian or Wolff 05/03/2023 12 :44 PM GOLD BURNISHER COVID-19 Exposure Response Date Recorded In the [...] 03/16/21 Office Visit Kishore Prieto APRN, [facility] [place] Showing recent visits within past 365 days and meeting all other requirements Today's Visits Date Type Provider Dept 09/09/22 Appointment Kishore Prieto APRN, MAINTAINER CENTRAL OFFICE [facility] Showing today's visits and meeting all other requirements Future Appointments No visits were found meeting these conditions. Showing future appointments within next 90 days and meeting all other requirements documented in this encounter Plan of Treatment Upcoming Encounters Date Type Department Care Team (Late st Contact Info) Description 07/14/2025 1:30 PM GOLD BURNISHER [facility] - [place] [address] [place] [address] Aria Delong RABBIT BREEDER, HAIR MACHINE OPERATOR [address] [place] [address] documented as of this encounter Visit Diagnoses Not on filedocumented in this encounter Additional Health Concerns Infection Onset Date Last Indicated Resolved Time COVID - 19 Confirmed 05/31/2022 05/31/2022 023 12:16 AM GOLD BURNISHER Respiratory Rule Out - RPA 02/26/2023 02/26/2023 0 02/26/2023 11:31 AM CDT COVID - 19 02/26/2023 02/26/2023 03/08/2023 12:1 6 AM CDT documented as of this encounter Care Teams Pound Attendant Relationship Specialty Start Date End Date Jabier Peck MD #[address] [address] PCP - General Family Medicine 06/22/20 01/16/24 Tad Mcintosh MD [address] [place] [address] PCP - General Family Medicine 01/17/24 Srikanth Adrian MD #[address] [address] Railway Switchman Cardiovascular Disease - Cardiology 02/02/22 08/06/24 Gloria Martinez MD #2 TORI ELEAZAR, [address] [address] Consulting Physician Urology 04/30/24 documented as of this encounter
--- OUTSIDE RECORDS SUMMARY | 2025-05-17 17:24 | XMS_ITS | Data Portability ---
Author Organization [place] [facility] [place] [facility] Address [address] [place] [address] Care Team Providers Care Ballistics Tester Name Role Phone [facility] OTHER Assessment Encounter Date Assessment Date Assessment [...] By Organization Details Last Modified Time 11/18/2019 [id number] Recommend seeing neurologist of his choice or [...] week abalettie Not available 11/18/2019 14:02:44 11/25/2019 [id number] Recommend, he would like to persue and discussed bilateral hammer toe surgery (arthrodesis B2,3,4 and arthroplasty B5). Likely ulcer will reoccur wo it. dc buttress. use cotton ball under the toe and continue maryuri/cotton/paper tape to the ulcer. Has improved nicely. get xrays L foot next visit. fu 1 wk ok to schedule surgery prn abalettie Not available 11/25/2019 15:25:12 12/02/2019 [id number] He said he is going to look into a lawsuit against his previous surgeon and asked me if I would talk to him, but he cannot remember his name and will have the workers compensation attorney call us for an appointment if needed. He has not gotten blood work done yet debrided ulcer, continue cotton under the toe too to offload, toe pads made it hurt more xray taken 1 view L foot to review hammer toes on that side. nc fu 2 wk for preop and wound care. abalettie Not available 12/02/2019 16:48:53 01/05/2020 [id number] has not fu in a month was [...] wk abalettie Not available 01/06/2020 10:34:37 01/13/2020 [id number] He has pain and his ulcer is not healing he has not gotten blood work done to look at his healing factors I would like to refer him to a wound care center of his choice. He knows of one in [place], [place] that he would like to go [...] Address Organization Details Recorded Time 01/13/20 20 [id number] Ulcer Debridement completed [facility] 01/13/2020 17:44:57 01/05/20 20 [id number] Ulcer Debridement completed [facility] 01/06/2020 10:31:49 12/02/19 20 [id number] Ulcer Debridement completed [facility] 12/02/2019 16:46:21 11/25/19 20 [id number] Ulcer Debridement completed [facility] 11/25/2019 15:20:30 11/25/19 20 [id number] Est. 20-29 min completed [facility] 11/25/2019 15:20:12 11/18/19 20 35616 X-rays 3v Feet Normal completed [facility] 11/18/2019 13:56:31 11/18/19 20 [id number] Ulcer Debridement completed [facility] 11/18/2019 13:53:44 11/18/19 20 62416-- SEISMIC PROSPECTING SUPERVISOR H&P Exam 30-44 minutes completed [facility] 11/18/2019 13:53:28 Tonsillectomy completed MORGAN BURGER [facility] 11/18/2019 12:23:22 Foot Surgery completed [facility] 11/18/2019 13:21:53 hammer toe operation completed Michelle Spangler [facility] 11/18/2019 13:22:01 Imaging Results None recorded. Procedure Notes None recorded. Medical Equipment None Reported. Allergies Allergen ID Allergen Name Allergen Category Reaction Reaction Severity Criticality Documentation Date Start Date Code Code System Note Provider Name and Address Organization Details Recorded Time 01805 acetamino phen / hydrocodo ne medicatio n Not available Not available Not available 11/25/2019 57638 2 RxNorm addic tion, abuse r Michelle Spangler [facility] 0 12:16:29 Medications Name Sig [...] Available Not Available cefazolin sodium 1 [facility] completed Not Available Not Available [...] Updated DateTime 11/18/2019 177.8 cm 37.3 kg/m2 151774.02 g MORGAN LOUISE - Foot [facility] 11/18/2019 12:14:42 Date Recorded Body height Provider Name an d Address Organization Details Last Updated DateTime 11/25/2019 177.8 cm Paola Dockery [place] [facility] 11/25/2019 14:25:49 Date Recorded Body height Provider Name an d Address Organization Details Last Updated DateTime 12/02/2019 177.8 cm Paola Dockery [place] [facility] 12/02/2019 14:39:43 Date Recorded Body height Provider Name an d Address Organization Details Last Updated DateTime 01/05/2020 177.8 cm Paola Dockery [place] [facility] 01/05/2020 16:38:31 Date Recorded Body height Provider Name an d Address Organization Details Last Updated DateTime 01/13/2020 177.8 cm Paola Dockery [place] [facility] 01/13/2020 16:40:34 Social History Question Answer Notes LastModified by Organizat ion Details LastModified Time Tobacco Smoking Status Former Smoker MORGAN BURGER [facility] [place] [facility] 11/18/2019 12:22:45 Quit Smoking How Many Years [...] available 07/2019 12:22:01 Medical History Condition Response HIV or AIDS N Coronary Artery Disease N Gout N Seizure Disorder N High Blood Pressure Y Menopause N Lung Condition Y Depression Y Pacemaker N Sciatica N Anxiety Disorder Y Urinary Tract Infections N Arthritis N Ear Problems N Cancer N Eye Problems N Stroke Y Stomach Problems Y High Cholesterol Y Liver Disease N Rheumatoid Arthritis N Rash Y Kidney Disease Y Tuberculosis or TB N Heart Problems N Ulcers on Legs or Feet N Clot in Lung or Pulmonary Embolism N Phlebitis or Venous Blood Clot Y Migraines N Anemia N Back Pain N Neurologic Disease Y Heart Attack ([place]) N Diabetes Y Bleeding Disorder Y Abuse of Alcohol or Drugs Y Back injury N Dementia N Peripheral Vascular Disease N Sinus Conditions N Broken Bone N Thyroid Disorder Y Hepatitis N Heart Disease N Osteoporosis N Past Encounters Encounter ID Performer Location Encounter Start Date Encounter Closed Date Diagnosis/Indication Diagnosis SNOMED-CT Code Diagnosis ICD10 Code Diagnosis IMO Codes Diagnosis Note [id number] EUN [facility] [address] [place] [address] 11/18/2019 12:00:36 11/18/2019 13:10:53 Disorder of nervous system due to type 2 diabetes mellitus 195026663 E11.49 Diabetic foot ulcer 3710 74895 E13.621 Hammer toe 093456129 M20 .41 M20.42 Amputated big toe 464380 007 Z89.411 Pain in right foot 49377 49604 67158 M79.671 Pain in left foot 079493 9702 26006 M79.672 Ulcer of toe 946200877 L 97.518 [id number] EUN [facility] [address] [place] [address] 11/25/2019 14:24:18 11/25/2019 14:52:22 Disorder of nervous system due to type 2 diabetes mellitus 722647607 E11.49 Diabetic foot ulcer 3710 85092 E13.621 Hammer toe 281132614 M20 .41 M20.42 Amputated big toe 749805 007 Z89.411 Pain in right foot 10767 19652 84262 M79.671 Pain in left foot 517001 6739 54736 M79.672 Ulcer of toe 923535204 L 97.518 [id number] EUN Keith [address] [place] [id number] 12/02/2019 14:37:47 12/02/2019 14:56:40 Disorder of nervous system due to type 2 diabetes mellitus 364558370 E11.49 Diabetic foot ulcer 3710 58737 E13.621 Ulcer of toe 147407222 L 97.518 [id number] Michelle Spangler [facility] [address] [place] [address] 01/05/2020 16:35:48 01/05/2020 16:52:28 Disorder of nervous system due to type 2 diabetes mellitus 828917802 E11.49 Diabetic foot ulcer 3710 87995 E13.621 Ulcer of toe 444292942 L 97.518 [id number] Michelle Spangler [facility] [address] [place] [address] 01/13/2020 16:24:56 01/13/2020 16:59:22 Disorder of nervous system due to type 2 diabetes mellitus 127209668 E11.49 Diabetic foot ulcer 3710 26032 E13.621 Ulcer of toe 128160712 L 97.518 Health Concerns Section Related Observation LastModified by Organization Detai ls LastModified Time None Recorded Concern Status LastModified by Organization Details LastModified Time None Recorded Advance Directives Directive None Recorded Payers Insurance Date Sequence Insurance Name Policy Number Policy Bailey Covered Member ID Bailey Member ID Guarantor Name 01/10/2020 1 [facility] (MEDICARE REPLACEMENT/A DVANTAGE - PPO) [id number] Tae Kent [id number] Tae Kent Notes Date Note Type Note Provider Name and Address Organization Details Recorded Time 11/18/2019 text/html [place]/ [place] / UlcersReported by PatientATHENA HPIFor location, patient reportsright: second toe (really hurts; the l2 hurts but to a lesser degree. has neuropathy of hands and feet. has not been in pain mgmt but has had an opiod addiction.)(r foot remains swollen.). For quality, patient reportsaching,throbbin g,sharp (stabbing feeling), andworsening. For current severity, patient reportsmoderate. For duration, patient [id number] months. For onset/timing, patient reportsabrupt onset (surgery [...] goes up to over 200mg/dL. Michelle tobias [facility] 11/18/2019 14:04:56 11/25/2019 text/html [place]/ Callus / UlcersReported by PatientATHENA HPIFor location, patient reportsright: second toe (really hurts; the l2 hurts but to a lesser degree). For quality, patient reportsaching,throbbin g,sharp (stabbing feeling), andimproving. For current severity, patient reportsmoderate. For duration, patient [id number] months. For onset/timing, patient reportsabrupt onset (surgery [...] at amputation of R 1 Michelle tobias [facility] 11/25/2019 15:25:37 12/02/2019 text/html [place]/ Callus / UlcersReported by PatientATHENA HPIFor location, [...] at amputation of R 1 [facility] 12/02/2019 16:49:41 01/05/2020 text/html [place]/ Callus / UlcersReported by PatientATHENA HPIFor location, patient reportsright: second toe (burning). For quality, patient reportsunchanged. For current severity, patient reportsmild. For duration, patient [id number] months. For onset/timing, patient reportsabrupt onset (surgery [...] 2 and tender DANI Drake - [facility] 01/06/2020 10:34:57 01/13/2020 text/html [place]/ Callus / UlcersReported by PatientATHENA HPIFor location, patient reportsright: second toe (burning). For quality, patient reportsunchanged. For current severity, patient reportsmild. For duration, patient [id number] months. For onset/timing, patient reportsabrupt onset (surgery [...] R 2 and tender DANI Drake Foot [facility] 01/13/2020 17:48:34
--- OUTSIDE RECORDS SUMMARY | 2025-05-17 17:24 | XMS_ITS | Encounter Summary ---
Author Organization [facility] Address [address] [place] [address] Phone Care Team Providers Care Machine Design Checker Name Role Phone Srikanth Adrian MD Unavailable Tad Romero MD Primary Care Provider [phone] Gloria Martinez MD Unavailable [phone] Reason for Visit * Reason Comments Medication Refill Encounter Details Date Type Department Care Team (Late st Contact Info) Description 07/26/2024 Refill [facility] Family [facility] [address] [place] [address] Jabier Peck MD [address] [address] Medication Refill Social History Tobacco Use Types [...] Gender Identity Male 05/03/2023 12:44 PM SENIOR INTEGRATION ARCHITECT Sexual Orientation Lesbian or Wolff 05/03/2023 12 :44 PM SENIOR INTEGRATION ARCHITECT documented as of this encounter Miscellaneous Notes * Telephone Encounter - Sheyla Burgess RN - 07/28/2024 10:39 AM SENIOR INTEGRATION ARCHITECT Changed PCPs to Tad Mcintosh MD OR INTEGRATION ARCHITECT * Telephone Encounter - Sheyla Burgess RN - 07/28/2024 10:39 AM SENIOR INTEGRATION ARCHITECT Now seeing Tad Mcintosh MD OR INTEGRATION ARCHITECT * Telephone Encounter - Sheyla Burgess RN - 07/28/2024 10:38 AM SENIOR INTEGRATION ARCHITECT Needs OV. Last seen April 2023. OR INTEGRATION ARCHITECT documented in this encounter Plan of Treatment Upcoming Encounters Date Type Department Care Team (Late st Contact Info) Description 07/14/2025 1:30 PM SENIOR INTEGRATION ARCHITECT Office Visit [facility] - Neurology [facility] [place] [address] Aria Delong APRN, FERN PICKER [address] [place] [address] documented as of this encounter Visit Diagnoses Not on filedocumented in this encounter Care Teams Machine Design Checker Relationship Specialty Start Date End Date Tad Mcintosh MD [address] [place] [address] PCP - General Family Medicine 01/17/24 Srikanth Adrian MD Tree Surgeon Cardiovascular Disease - Cardiology 02/02/22 08/06/24 Gloria Martinez MD #2 [place] [address] Consulting Physician Urology 04/30/24 documented as of this encounter
--- OUTSIDE RECORDS SUMMARY | 2025-05-17 17:24 | XMS_ITS | Encounter Summary ---
Author Organization [facility] Address [address] [place] [address] Phone Care Team Providers Care Bottom Brusher Name Role Phone Srikanth Adrian MD Unavailable Tad Romero MD Primary Care Provider [phone] Gloria Martinez MD Unavailable [phone] Reason for Visit * Reason Comments Medication Refill Encounter Details Date Type Department Care Team (Late st Contact Info) Description 03/29/2024 Refill [facility] Family Medicine [facility] #2 [place] [address] Kishore Prieto APRN, CARBONATION TESTER #[address] [address] Medication Refill Social History Tobacco Use Types [...] CDT Gender Identity Male 05/03/2023 12:44 PM INTERACTIVE MARKETING STRATEGIST Sexual Orientation Lesbian or Wolff 05/03/2023 12 :44 PM INTERACTIVE MARKETING STRATEGIST documented as of this encounter Miscellaneous Notes * Telephone Encounter - Cristine Preston RN - 03/30/2024 1:22 PM CDT PCP: Tad Mcintosh MD documented in this encounter Plan of Treatment Upcoming Encounters Date Type Department Care Team (Late st Contact Info) Description 07/14/2025 1:30 PM INTERACTIVE MARKETING STRATEGIST Office Visit [facility] - Neurology - [place] #2 [place] [address] Aria Delong APRN, STUDENT OUTREACH COORDINATOR #2 [place] [address] documented as of this encounter Visit Diagnoses Not on filedocumented in this encounter Care Teams Bottom Brusher Relationship Specialty Start Date End Date Tad Mcintosh MD [address] [place] [address] PCP - General Family Medicine 01/17/24 Srikanth Adrian MD Bleach Boiler Puller Cardiovascular Disease - Cardiology 02/02/22 08/06/24 Gloria Martinez MD #[address] [address] Consulting Physician Urology 04/30/24 documented as of this encounter
--- OUTSIDE RECORDS SUMMARY | 2025-05-17 17:24 | XMS_ITS | Encounter Summary ---
Author Organization [facility] Address [address] [place] [address] Phone Care Team Providers Care Laboratory Chief Name Role Phone Jabier Peck MD Primary Care Provider [phone] Srikanth Adrian MD Unavailable Tad Romero MD Primary Care Provider [phone] Gloria Martinez MD Unavailable [phone] Reason for Visit * Reason Comments Medication Refill Encounter Details Date Type Department Care Team (Late st Contact Info) Description 05/11/2021 Refill [facility] #2 [place] [address] Jabier Peck MD #[address] [address] Medication Refill Social History Tobacco Use Types [...] CDT Gender Identity Male 05/03/2023 12:44 PM ELECTROPLATER HELPER Sexual Orientation Lesbian or Wolff 05/03/2023 12 :44 PM ELECTROPLATER HELPER COVID-19 Exposure Response Date Recorded In the last month, have you been in contact with someone who was confirmed or suspected to have Coronavirus / COVID-19? No / Unsure 05/05/2021 12:33 PM ELECTROPLATER HELPER documented as of this encounter Miscellaneous [...] [place] 06/22/20 Office Visit Kishore Prieto APRN, PILOT SUBMERSIBLE [facility] [place] Showing recent visits within past 365 days and meeting all other requirements Future Appointments Date Type Provider Dept 08/01/21 Appointment Jabier Peck MD [facility] Showing future appointments within next 90 days and meeting all other requirements TROPLATER HELPER documented in this encounter Plan of Treatment Upcoming Encounters Date Type Department Care Team (Late st Contact Info) Description 07/14/2025 1:30 PM ELECTROPLATER HELPER Office Visit [facility] - Neurology - [place] #2 [place] [address] Aria Delong APRN, LOWER IN SUPERVISOR #2 [place] [address] documented as of this encounter Visit Diagnoses Diagnosis Cervical radiculopathy Brachial neuritis or radiculitis nos documented in this encounter Additional Health Concerns Infection Onset Date Last Indicated Resolved Time COVID - 19 Confirmed 05/31/2022 05/31/2022 023 12:16 AM ELECTROPLATER HELPER Respiratory Rule Out - RPA 02/26/2023 02/26/2023 0 02/26/2023 11:31 AM CDT COVID - 19 02/26/2023 02/26/2023 03/08/2023 12:1 6 AM CDT documented as of this encounter Care Teams Laboratory Chief Relationship Specialty Start Date End Date Jabier Peck MD #2 [facility] [address] [place] [address] PCP - General Family Medicine 06/22/20 01/16/24 Tad Mcintosh MD [address] [place] [address] PCP - General Family Medicine 01/17/24 Srikanth Adrian MD #2 [facility] [address] [place] [address] World Renowned Chef And Restaurant Owner Cardiovascular Disease - Cardiology 02/02/22 08/06/24 Gloria Martinez MD #2 [facility] [address] [place] [address] Consulting Physician Urology 04/30/24 documented as of this encounter
--- OUTSIDE RECORDS SUMMARY | 2025-05-17 17:24 | XMS_ITS | Encounter Summary ---
Author Organization [facility] Address [address] [place] [address] Phone Care Team Providers Care Loan Service Officer Name Role Phone Jabier Peck MD Primary Care Provider [phone] Srikanth Adrian MD Unavailable Tad Romero MD Primary Care Provider [phone] Gloria Martinez MD Unavailable [phone] Reason for Visit * Reason Comments Medication Refill Encounter Details Date Type Department Care Team (Late st Contact Info) Description 07/10/2022 Refill [facility] - Family [facility] #2 [place] [address] Jabier Peck MD #[address] [address] Medication Refill Social History Tobacco Use Types [...] Identity Male 05/03/2023 12:44 PM DIRECTOR OF PROMOTIONS Sexual Orientation Lesbian or Wolff 05/03/2023 12 :44 PM DIRECTOR OF PROMOTIONS documented as of this encounter Miscellaneous Notes * Telephone Encounter - Anjali Hartley RN - 07/10/2022 12:34 PM DIRECTOR OF PROMOTIONS Refill requested too soon. CTOR OF PROMOTIONS documented in this encounter Plan of Treatment Upcoming Encounters Date Type Department Care Team (Late st Contact Info) Description 07/14/2025 1:30 PM DIRECTOR OF PROMOTIONS Office Visit [facility] - Neurology - [place] #2 [place] [address] Aria Delong APRN, RN REFERRAL #2 [place] [address] documented as of this encounter Visit Diagnoses Not on filedocumented in this encounter Additional Health Concerns Infection Onset Date Last Indicated Resolved Time Respiratory Rule Out - RPA 02/26/2023 02/26/2023 0 02/26/2023 11:31 AM CDT COVID - 19 02/26/2023 02/26/2023 03/08/2023 12:1 6 AM CDT documented as of this encounter Care Teams Loan Service Officer Relationship Specialty Start Date End Date Jabier Peck MD #[address] [address] PCP - General Family Medicine 06/22/20 01/16/24 Tad Mcintosh MD [address] [place] [address] PCP - General Family Medicine 01/17/24 Srikanth Adrian MD #[address] [address] Operations Scheduler Cardiovascular Disease - Cardiology 02/02/22 08/06/24 Gloria Martinez MD #2 [facility] [address] [address] Consulting Physician Urology 04/30/24 documented as of this encounter
--- OUTSIDE RECORDS SUMMARY | 2025-05-17 17:24 | XMS_ITS | Encounter Summary ---
Author Organization [facility] Address [address] [place] [address] Phone Care Team Providers Care Instant Print Operator Name Role Phone Jabier Peck MD Primary Care Provider [phone] Srikanth Adrian MD Unavailable Tad Romero MD Primary Care Provider [phone] Gloria Martinez MD Unavailable [phone] Reason for Visit * Reason Comments Medication Refill Encounter Details Date Type Department Care Team (Late st Contact Info) Description 02/02/2021 Refill [facility] Family Medicine [facility] #2 [place] [address] Jabier Peck MD #[address] [address] Medication Refill Social History Tobacco Use Types [...] Gender Identity Male 05/03/2023 12:44 PM DIRECTOR CASE Sexual Orientation Lesbian or Wolff 05/03/2023 12 :44 PM DIRECTOR CASE documented as of this encounter Miscellaneous Notes [...] 11/16/20 Office Visit Kishore Prieto APN, R[facility]ARD [facility] [place] 10/20/20 Office Visit Jabier Peck MD [facility] [place] 08/20/20 Telemedicine Kishore Prieto APN, RICHARD [facility] [place] 08/06/20 Telemedicine Kishore Prieto APN, RICHARD [facility] [place] 06/22/20 Office Visit Kishore [facility] APN, [facility] Showing recent visits within past 365 days and meeting all other requirements Future Appointments No visits were found meeting these conditions. Showing future appointments within next 90 days and meeting all other requirements documented in this encounter Plan of Treatment Upcoming Encounters Date Type Department Care Team (Late st Contact Info) Description 07/14/2025 1:30 PM DIRECTOR CASE Office Visit [facility] - Neurology - [place] [address] [place] [address] Aria Delong, SPANISH TUTOR, SERVICE ASSISTANT #2 [place] [address] documented as of this encounter Visit Diagnoses Not on filedocumented in this encounter Additional Health Concerns Infection Onset Date Last Indicated Resolved Time COVID - 19 Confirmed 05/31/2022 05/31/2022 023 12:16 AM DIRECTOR CASE Respiratory Rule Out - RPA 02/26/2023 02/26/2023 0 02/26/2023 11:31 AM CDT COVID - 19 02/26/2023 02/26/2023 03/08/2023 12:1 6 AM CDT documented as of this encounter Care Teams Instant Print Operator Relationship Specialty Start Date End Date Jabier Peck MD #2 [facility] [address] [place] [address] PCP - General Family Medicine 06/22/20 01/16/24 Tad Mcintosh MD [address] [place] [address] PCP - General Family Medicine 01/17/24 Srikanth Adrian MD #2 [facility] [address] [place] [address] Diagrammer And Seamer Cardiovascular Disease - Cardiology 02/02/22 08/06/24 Gloria Martinez MD #2 [facility] [address] [place] [address] Consulting Physician Urology 04/30/24 documented as of this encounter
--- OUTSIDE RECORDS SUMMARY | 2025-05-17 17:24 | XMS_ITS | Encounter Summary ---
Author Organization [facility] Address [address] [place] [address] Phone Care Team Providers Care Mercantile Reporter Name Role Phone Jabier Peck MD Primary Care Provider [phone] Srikanth Adrian MD Unavailable Tad Romero MD Primary Care Provider [phone] Gloria Martinez MD Unavailable [phone] Reason for Visit * Reason Comments Medication Refill Encounter Details Date Type Department Care Team (Late st Contact Info) Description 12/07/2023 Refill [facility] Family [facility] #2 [place] [id number] Jabier Peck MD #[address] [address] Medication Refill Social History Tobacco Use Types [...] CDT Gender Identity Male 05/03/2023 12:44 PM MINE ENGINEERING MANAGER Sexual Orientation Lesbian or Wolff 05/03/2023 12 :44 PM MINE ENGINEERING MANAGER documented as of this encounter Miscellaneous Notes * Telephone Encounter - Sheyla Burgess RN - 12/07/2023 3:21 PM CDT Per nursing clinical judgement, provider to review and approve the medication(s) order(s) if appropriate. Requested Prescriptions Pending Prescriptions Disp Refills albuterol 108 (90 Base) MCG/ACT Aerosol Solution [Pharmacy Med Name: ALBUTEROL HFA 90 MCG INHALER ([place]] 8.5 g Sig: TRANSFERRED: 06/15/23 -READ RX [...] 05/03/23 Office Visit Piper Toro APRN, RICHARD [facility] [place] 02/26/23 Office Visit Kishore Prieto APRN, RICHARD [facility] [place] 12/18/22 Telemedicine Jabier Peck MD [facility] Showing recent visits within past 365 days and meeting all other requirements Future Appointments No visits were found meeting these conditions. Showing future appointments within next 90 days and meeting all other requirements documented in this encounter Plan of Treatment Upcoming Encounters Date Type Department Care Team (Late st Contact Info) Description 07/14/2025 1:30 PM MINE ENGINEERING MANAGER [facility] - [place] #2 [place] [address] Aria Delong APRN, FINANCIAL COMPLIANCE MANAGER #2 [place] [address] documented as of this encounter Visit Diagnoses Not on filedocumented in this encounter Care Teams Mercantile Reporter Relationship Specialty Start Date End Date Jabier Peck MD #2 [facility] [address] [place] [address] PCP - General Family Medicine 06/22/20 01/16/24 Tad Mcintosh MD [address] [place] [address] PCP - General Family Medicine 01/17/24 Srikanth Adrian MD #2 [facility] [address] [place] [address] Partnership Manager Cardiovascular Disease - Cardiology 02/02/22 08/06/24 Gloria Martinez MD #2 [facility] [address] [place] [address] Consulting Physician Urology 04/30/24 documented as of this encounter
--- OUTSIDE RECORDS SUMMARY | 2025-05-17 17:24 | XMS_ITS | Encounter Summary ---
Author Organization [facility] Address [address] [place] [address] Phone Care Team Providers Care Voucher Examiner Name Role Phone Tad Mcintosh MD Primary Care Provider Gloria Martinez MD Unavailable [phone] Reason for Visit * Reason Comments Medication Refill Encounter Details Date Type Department Care Team (Late st Contact Info) Description 10/20/2024 Refill [facility] - Family Medicine [facility] #2 [place] [address] Jabier Peck MD #[address] [address] Medication Refill Social History Tobacco Use Types [...] Gender Identity Male 05/03/2023 12:44 PM SENIOR SAFETY SUPPORT MANAGER Sexual Orientation Lesbian or Wolff 05/03/2023 12 :44 PM SENIOR SAFETY SUPPORT MANAGER documented as of this encounter Miscellaneous Notes * Telephone Encounter - Francine Soto RN - 10/21/2024 8:22 AM CDT PCP: Tad Mcintosh MD documented in this encounter Plan of Treatment Upcoming Encounters Date Type Department Care Team (Late st Contact Info) Description 07/14/2025 1:30 PM SENIOR SAFETY SUPPORT MANAGER [facility] - [place] #2 [place] [address] Aira Delong APRN, WATERSHED ENGINEER #2 [place] [address] documented as of this encounter Visit Diagnoses Not on filedocumented in this encounter Care Teams Voucher Examiner Relationship Specialty Start Date End Date Tad Mcintosh MD [address] [place] [address] PCP - General Family Medicine 01/17/24 Gloria Martinez MD #[address] [address] Consulting Physician Urology 04/30/24 documented as of this encounter
--- OUTSIDE RECORDS SUMMARY | 2025-05-17 17:24 | XMS_ITS | Encounter Summary ---
Author Organization [facility] Address [address] [place] [address] Phone Care Team Providers Care Dental Chairside Assistant Name Role Phone Jabier Peck MD Primary Care Provider [phone] Srikanth Adrian MD Unavailable Tad Romero MD Primary Care Provider [phone] Gloria Martinez MD Unavailable [phone] Reason for Visit * Reason Onset Date Comments Medication Refill Requesting new referral to [facility] 11/10/2022 Encounter Details Date Type Department Care Team (Late st Contact Info) Description 11/10/2022 Refill [facility] - Family Medicine - [place] #2 [place] [address] Jabier Peck MD #[address] [address] Medication Refill; Requesting new referral to [facility] Social History Tobacco Use Types Packs/Day [...] Gender Identity Male 05/03/2023 12:44 PM PARTS WASHER Sexual Orientation Lesbian or Wolff 05/03/2023 12 :44 PM PARTS WASHER documented as of this encounter Miscellaneous Notes * Telephone Encounter - Nikky Irby - 11/10/2022 1:42 PM CDT RFC: Tae Kent is requesting a new referral to [facility]. . Please call Tae (relationship to [...] [place] 12/13/21 Telemedicine Kishore Prieto APRN, RICHARD [facility] [place] Showing recent visits within past 365 [...] [place] 12/13/21 Telemedicine Kishore Prieto APRN, RICHARD [facility] [place] Showing recent visits within past 365 [...] st Contact Info) Description 07/14/2025 1:30 PM PARTS WASHER Office Visit [facility] - Neurology - [place] #[address] [place] [address] Aria Delong APRN, MECHANICAL SUPERVISOR #2 [facility] [place] [address] documented as of this encounter Visit Diagnoses Diagnosis Cervical radiculopathy Brachial neuritis or radiculitis nos documented in this encounter Additional Health Concerns Infection Onset Date Last Indicated Resolved Time Respiratory Rule Out - RPA 02/26/2023 02/26/2023 0 02/26/2023 11:31 AM CDT COVID - 19 02/26/2023 02/26/2023 03/08/2023 12:1 6 AM CDT documented as of this encounter Care Teams Dental Chairside Assistant Relationship Specialty Start Date End Date Jabier Peck MD #2 [facility] [address] [place] [address] PCP - General Family Medicine 06/22/20 01/16/24 Tad Mcintosh MD [address] [place] [address] PCP - General Family Medicine 01/17/24 Srikanth Adrian MD #2 [facility] [address] [place] [address] Act Tutor Cardiovascular Disease - Cardiology 02/02/22 08/06/24 Gloria Martinez MD #2 [facility] [address] [place] [address] Consulting Physician Urology 04/30/24 documented as of this encounter
--- OUTSIDE RECORDS SUMMARY | 2025-05-17 17:24 | XMS_ITS | Encounter Summary ---
Author Organization [facility] Address [address] [place] [address] Phone Care Team Providers Care Cut Off Worker Name Role Phone Jabier Peck MD Primary Care Provider [phone] Srikanth Adrian MD Unavailable Tad Romero MD Primary Care Provider [phone] Gloria Martinez MD Unavailable [phone] Reason for Visit * Reason Comments Medication Refill Encounter Details Date Type Department Care Team (Late st Contact Info) Description 09/22/2021 Refill [facility] #2 [place] [address] Jabier Peck MD #[address] [address] Medication Refill Social History Tobacco Use Types [...] CDT Gender Identity Male 05/03/2023 12:44 PM SHIPPING ASSISTANT Sexual Orientation Lesbian or Wolff 05/03/2023 12 :44 PM SHIPPING ASSISTANT COVID-19 Exposure Response Date Recorded In [...] [place] 03/16/21 Office Visit Kishore Prieto APRN, RCIHARD [facility] 11/16/20 Office Visit Kishore Prieto APRN, RICHARD [facility] 10/20/20 Office Visit Jabier Peck MD [facility] Showing recent visits within past 365 days and meeting all other requirements Future Appointments Date Type Provider Dept 09/27/21 Appointment Kishore Prieto APRN, OCCUPATIONAL WORK EXPERIENCE TEACHER [facility] 10/31/21 Appointment Jabier Peck MD [facility] Showing future appointments within next 90 days and meeting all other requirements documented in this encounter Plan of Treatment Upcoming Encounters Date Type Department Care Team (Late st Contact Info) Description 07/14/2025 1:30 PM SHIPPING ASSISTANT Office Visit [facility] - Neurology - [place] #2 [place] [address] Aria Delong, ENTERPRISE CLOUD ARCHITECT, HIGHER LEVEL TEACHING ASSISTANT #2 [place] [address] documented as of this encounter Visit Diagnoses Diagnosis Cervical radiculopathy Brachial neuritis or radiculitis nos documented in this encounter Additional Health Concerns Infection Onset Date Last Indicated Resolved Time COVID - 19 Confirmed 05/31/2022 05/31/2022 023 12:16 AM SHIPPING ASSISTANT Respiratory Rule Out - RPA 02/26/2023 02/26/2023 0 02/26/2023 11:31 AM CDT COVID - 19 02/26/2023 02/26/2023 03/08/2023 12:1 6 AM CDT documented as of this encounter Care Teams Cut Off Worker Relationship Specialty Start Date End Date Jabier Peck MD #[address] [address] PCP - General Family Medicine 06/22/20 01/16/24 Tad Mcintosh MD [address] [place] [address] PCP - General Family Medicine 01/17/24 Srikanth Adrian MD #2 [facility] [address] [place] [address] Housekeeping Manager Cardiovascular Disease - Cardiology 02/02/22 08/06/24 Gloria Martinez MD #2 [facility] [address] [place] [address] Consulting Physician Urology 04/30/24 documented as of this encounter
--- OUTSIDE RECORDS SUMMARY | 2025-05-17 17:24 | XMS_ITS | Encounter Summary ---
Author Organization [facility] Address [address] [place] [address] Phone Care Team Providers Care Actionscript Developer Name Role Phone Tad Mcintosh MD Primary Care Provider [phone] Gloria Martinez MD Unavailable [phone] Reason for Visit * Reason Comments Medication Refill Encounter Details Date Type Department Care Team (Late st Contact Info) Description 10/21/2024 Refill [facility] Family [facility] #2 [place] [address] Jabier Peck MD #[address] [address] Medication Refill Social History Tobacco Use Types [...] CDT Gender Identity Male 05/03/2023 12:44 PM HEALTH CAREERS INSTRUCTOR Sexual Orientation Lesbian or Wolff 05/03/2023 12 :44 PM HEALTH CAREERS INSTRUCTOR documented as of this encounter Miscellaneous Notes * Telephone Encounter - Francine Soto RN - 10/22/2024 9:04 AM CDT PCP: Tad Mcintosh MD documented in this encounter Plan of Treatment Upcoming Encounters Date Type Department Care Team (Late st Contact Info) Description 07/14/2025 1:30 PM HEALTH CAREERS INSTRUCTOR [facility] - [place] #2 [place] [address] Aria Delong APRN, SECRETARY BOARD OF COMMISSIONERS #2 [place] [address] documented as of this encounter Visit Diagnoses Not on filedocumented in this encounter Care Teams Actionscript Developer Relationship Specialty Start Date End Date Tad Mcintosh MD [address] [place] [address] PCP - General Family Medicine 01/17/24 Gloria Martinez MD #[address] [address] Consulting Physician Urology 04/30/24 documented as of this encounter
--- OUTSIDE RECORDS SUMMARY | 2025-05-17 17:24 | XMS_ITS | Encounter Summary ---
Author Organization [facility] Address [address] [place] [address] Phone Care Team Providers Care Transformer Repairer Name Role Phone Srikanth Adrian MD Unavailable Tad Romero MD Primary Care Provider [phone] Gloria Martinez MD Unavailable [phone] Reason for Visit * Reason Comments Medication Refill Encounter Details Date Type Department Care Team (Late st Contact Info) Description 07/03/2024 Refill [facility] #2 [place] [phone] Jabier Peck MD #[address] [address] Medication Refill Social History Tobacco [...] Gender Identity Male 05/03/2023 12:44 PM STORES ASSISTANT Sexual Orientation Lesbian or Wolff 05/03/2023 12 :44 PM STORES ASSISTANT documented as of this encounter Miscellaneous Notes * Telephone Encounter - Francine Soto RN - 07/04/2024 8:54 AM CST PCP: Tad Mcintosh MD ES ASSISTANT documented in this encounter Plan of Treatment Upcoming Encounters Date Type Department Care Team (Late st Contact Info) Description 07/14/2025 1:30 PM STORES ASSISTANT Office Visit [facility] - Neurology - [place] #2 [place] [address] Aria Delong APRN, HOT SEALING MACHINE OPERATOR #2 [place] [address] documented as of this encounter Visit Diagnoses Not on filedocumented in this encounter Care Teams Transformer Repairer Relationship Specialty Start Date End Date Tad Mcintosh MD [address] [place] [address] PCP - General Family Medicine 01/17/24 Srikanth Adrian MD Area Field Manager Cardiovascular Disease - Cardiology 02/02/22 08/06/24 Gloria Martinez MD #[address] [address] Consulting Physician Urology 04/30/24 documented as of this encounter
--- OUTSIDE RECORDS SUMMARY | 2025-05-17 17:24 | XMS_ITS ---
Author Name ABBY BUTLER Address [address] [place] [address] Phone [facility] Address [address] [place] [address] Phone Care Team Providers Care Inshore Undersea Warfare Officer Name Role Phone ABBY BUTLER Unavailable [phone] ALLERGIES, ADVERSE REACTIONS AND ALERTS Allergy Name Allergy Date Allergy Status Allergy Severity Allergy Reaction NO KNOWN DRUG ALLERGIES PROBLEMS Problem Code Problem Description Problem Status Problem Da te Problem End Date 639190975-Tcoxbiaeayh tract congestion and cough Respiratory tract congestion and cough Current 04/28/2022 97849230-Boptols disorder Bipolar disorder Chronic 04/28/2022 [id number]-Ucgszmkvl emphysema Pulmonary emphysema Chronic 04/28/2022 92354793-Qcmcvy disease Kidney disease Chronic 04/28/2022 13064744-Jeeqnshy mellitus Diabetes mellitus Chronic 04/28/2022 [id number]-Htgdwm Asthma Chronic 04/28/2022 86663038-Zbixftlknbj sleep apnea syndrome Obstructive sleep apnea syndrome [...] ever smoked Sex: Male CARE TEAM INFORMATION Inshore Undersea Warfare Officer Provider ID Role Location Phone ABBY BUTLER [id number] NURSE PRACTITIONER [address] [place] [address] INSURANCE PROVIDERS Payer Name Policy type / Coverage type Covered alliance party ID Policy [place] Medicaid [id number] SELF [facility] MEDICARE ADVANTAGE Private Health Insurance [id number] SELF
--- OUTSIDE RECORDS SUMMARY | 2025-05-17 17:24 | XMS_ITS | Encounter Summary ---
Author Organization [facility] Address [address] [place] [address] Phone Care Team Providers Care Community Health Nurse Staff Name Role Phone Jabier Peck MD Primary Care Provider [phone] Srikanth Adrian MD Unavailable Tad Romero MD Primary Care Provider [phone] Gloria Martinez MD Unavailable [phone] Reason for Visit * Reason Comments Medication Refill Encounter Details Date Type Department Care Team (Late st Contact Info) Description 08/01/2023 Refill [facility] #2 [place] [id number] Jabier Peck MD #[address] [address] Medication Refill Social History Tobacco Use Types [...] CDT Gender Identity Male 05/03/2023 12:44 PM ESCORT VEHICLE DRIVER Sexual Orientation Lesbian or Wolff 05/03/2023 12 :44 PM ESCORT VEHICLE DRIVER documented as of this encounter Miscellaneous [...] 05/11/23 Office Visit Piper Toro APRN, R[facility] [place] 05/03/23 Office Visit Piper Toro APRN, [facility] [place] 02/26/23 Office Visit Kishore Prieto APRN, R[facility] 12/18/22 Telemedicine Jabier Peck MD [facility] 11/30/22 Telemedicine Kishore Prieto APRN, RICH[facility] [place] 08/21/22 Office Visit Jabier Peck MD [facility] [place] Showing recent visits within past 365 days and meeting all other requirements Future Appointments No visits were found meeting these conditions. Showing future appointments within next 90 days and meeting all other requirements Passed - Active short-acting beta agonist prescription RT VEHICLE DRIVER documented in this encounter Plan of Treatment Upcoming Encounters Date Type Department Care Team (Late st Contact Info) Description 07/14/2025 1:30 PM ESCORT VEHICLE DRIVER Office Visit [facility] - Neurology - [place] #2 [place] [address] Aria Delong, BINDER COVERSTITCH, DISTRIBUTION WAREHOUSE MANAGER #[address] [facility] [place] [address] documented as of this encounter Visit Diagnoses Not on filedocumented in this encounter Care Teams Community Health Nurse Staff Relationship Specialty Start Date End Date Jabier Peck MD [facility]2 [facility] [address] [address] PCP - General Family Medicine 06/22/20 01/16/24 Tad Mcintosh MD [address] [place] [address] PCP - General Family Medicine 01/17/24 Srikanth Adrian MD #[address] [address] [employer] Cardiovascular Disease - Cardiology 02/02/22 08/06/24 Gloria Martinez MD #2 [facility] [address] [address] Consulting Physician Urology 04/30/24 documented as of this encounter
--- OUTSIDE RECORDS SUMMARY | 2025-05-17 17:24 | XMS_ITS | Encounter Summary ---
Author Organization [facility] Address [address] [place] [address] Phone Care Team Providers Care Typing Checker Name Role Phone Jabier Peck MD Primary Care Provider [phone] Srikanth Adrian MD Unavailable Tad Romero MD Primary Care Provider [phone] Gloria Martinez MD Unavailable [phone] Reason for Visit * Reason Comments Medication Refill Encounter Details Date Type Department Care Team (Late st Contact Info) Description 12/11/2021 Refill [facility] #2 [place] [address] Jabier Peck MD #[address] [address] Medication Refill Social History Tobacco Use Types [...] CDT Gender Identity Male 05/03/2023 12:44 PM SPLICER OPERATOR Sexual Orientation Lesbian or Wolff 05/03/2023 12 :44 PM SPLICER OPERATOR COVID-19 Exposure Response Date Recorded In [...] Dept 08/01/21 Office Visit Jabier Peck MD [facility] [place] 04/29/21 Office Visit Jabier Peck MD [facility] 03/16/21 Office Visit Kishore Prieto APRN, RICHARD [facility] [place] Showing recent visits within past 365 days and meeting all other requirements Future Appointments Date Type Provider Dept 12/13/21 Appointment Kishore Prieto APRN, [facility] [place] Showing future appointments within next 90 days and meeting all other requirements documented in this encounter Plan of Treatment Upcoming Encounters Date Type Department Care Team (Late st Contact Info) Description 07/14/2025 1:30 PM SPLICER OPERATOR Office Visit [facility] - Neurology - [place] [address] [place] [address] Aria Delong APRN, GM [address] [place] [address] documented as of this encounter Visit Diagnoses Diagnosis Cervical radiculopathy Brachial neuritis or radiculitis nos documented in this encounter Additional Health Concerns Infection Onset Date Last Indicated Resolved Time COVID - 19 Confirmed 05/31/2022 05/31/2022 023 12:16 AM SPLICER OPERATOR Respiratory Rule Out - RPA 02/26/2023 02/26/2023 0 02/26/2023 11:31 AM CDT COVID - 19 02/26/2023 02/26/2023 03/08/2023 12:1 6 AM CDT documented as of this encounter Care Teams Typing Checker Relationship Specialty Start Date End Date Jabier Peck MD #[address] [facility] [address] [place] [address] PCP - General Family Medicine 06/22/20 01/16/24 Tad Mcintosh MD [address] [place] [address] PCP - General Family Medicine 01/17/24 Srikanth Adrian MD #[address] [facility] [address] [place] [address] Riprap Man Cardiovascular Disease - Cardiology 02/02/22 08/06/24 Gloria Martinez MD #2 [facility] [address] [place] [address] Consulting Physician Urology 04/30/24 documented as of this encounter
--- OUTSIDE RECORDS SUMMARY | 2025-05-17 17:24 | XMS_ITS | Encounter Summary ---
Author Organization [facility] Address [address] [place] [address] Phone Care Team Providers Care Toll Patrolman Name Role Phone Jabier Peck MD Primary Care Provider + [phone] Srikanth Adrian MD Unavailable Tad Romero MD Primary Care Provider [phone] Gloria Martinez MD Unavailable [phone] Reason for Visit * Reason Comments Medication Refill Encounter Details Date Type Department Care Team (Late st Contact Info) Description 01/06/2021 Refill [facility] Family Medicine - [place] [address] [place] [id number] Jt Morillo MD [address] [place] [address] Medication Refill Social History Tobacco Use Types [...] CDT Gender Identity Male 05/03/2023 12:44 PM LUNCHROOM OPERATOR Sexual Orientation Lesbian or Wolff 05/03/2023 12 :44 PM LUNCHROOM OPERATOR documented as of this encounter Miscellaneous Notes * Telephone Encounter - Aisha Escamilla RN - 01/06/2021 11:22 AM CDT Refilled Eliquis per last F/U note. documented in this encounter Plan of Treatment Upcoming Encounters Date Type Department Care Team (Late st Contact Info) Description 07/14/2025 1:30 PM LUNCHROOM OPERATOR Office Visit [facility] - Neurology - [place] [address] [place] [address] Aria Delong APRN, GROUND WORKER #[address] [place] [address] documented as of this encounter Visit Diagnoses Diagnosis History of thrombophilia associated with MTHFR mutation documented in this encounter Additional Health Concerns Infection Onset Date Last Indicated Resolved Time COVID - 19 Confirmed 05/31/2022 05/31/2022 023 12:16 AM LUNCHROOM OPERATOR Respiratory Rule Out - RPA 02/26/2023 02/26/2023 0 02/26/2023 11:31 AM CDT COVID - 19 02/26/2023 02/26/2023 03/08/2023 12:1 6 AM CDT documented as of this encounter Care Teams Toll Patrolman Relationship Specialty Start Date End Date Jabier Peck MD #[address] [address] PCP - General Family Medicine 06/22/20 01/16/24 Tad Mcintosh MD [address] [place] [address] PCP - General Family Medicine 01/17/24 Srikanth Adrian MD #[address] [place] [address] Assistant Basketball Coach Cardiovascular Disease - Cardiology 02/02/22 08/06/24 Gloria Martinez MD #[address] [facility] [address] [place] [address] Consulting Physician Urology 04/30/24 documented as of this encounter
--- OUTSIDE RECORDS SUMMARY | 2025-05-17 17:24 | XMS_ITS | Encounter Summary ---
Author Organization [facility] Address [address] [place] [address] Phone Care Team Providers Care Blade Filer Name Role Phone Jabier Peck MD Primary Care Provider + [phone] Srikanth Adrian MD Unavailable Tad Romero MD Primary Care Provider [phone] Gloria Martinez MD Unavailable [phone] Encounter Details Date Type Department Care Team (Late st Contact Info) Description 01/04/2023 Telephone [facility] Medical/Surgical 3 Surge Waiver [address] [place] [address] Jabier Peck MD #[address] [address] Social History Tobacco Use Types Packs/Day Years [...] CDT Gender Identity Male 05/03/2023 12:44 PM PUSH BENCH OPERATOR HELPER Sexual Orientation Lesbian or Wolff 05/03/2023 12 :44 PM PUSH BENCH OPERATOR HELPER documented as of this encounter Miscellaneous Notes * Telephone Encounter - Jabier Peck MD - 01/14/2023 1:40 PM CDT Thanks for the update! documented in this encounter Plan of Treatment Upcoming Encounters Date Type Department Care Team (Late st Contact Info) Description 07/14/2025 1:30 PM PUSH BENCH OPERATOR HELPER Office Visit [facility] - Neurology - [place] #[address] [place] [address] Aria Delong APRN, AUTHOR #[address] [place] [address] documented as of this encounter Visit Diagnoses Not on filedocumented in this encounter Additional Health Concerns Infection Onset Date Last Indicated Resolved Time Respiratory Rule Out - RPA 02/26/2023 02/26/2023 0 02/26/2023 11:31 AM CDT COVID - 19 02/26/2023 02/26/2023 03/08/2023 12:1 6 AM CDT documented as of this encounter Care Teams Blade Filer Relationship Specialty Start Date End Date Jabier Peck MD #[address] [address] PCP - General Family Medicine 06/22/20 01/16/24 Tad Mcintosh MD [address] [place] [address] PCP - General Family Medicine 01/17/24 Srikanth Adrian MD #[address] [address] Cert Occupational Therapy Asst Cardiovascular Disease - Cardiology 02/02/22 08/06/24 Gloria Martinez MD #2 [facility] [address] [address] Consulting Physician Urology 04/30/24 documented as of this encounter
--- OUTSIDE RECORDS SUMMARY | 2025-05-17 17:24 | XMS_ITS | Encounter Summary ---
Author Organization [facility] Address [address] [place] [address] Phone Care Team Providers Care Frame Straightener Name Role Phone Jabier Peck MD Primary Care Provider [phone] Srikanth Adrian MD Unavailable Tad Romero MD Primary Care Provider [phone] Gloria Martinez MD Unavailable [phone] Reason for Visit * Reason Comments Medication Refill Encounter Details Date Type Department Care Team (Late st Contact Info) Description 10/21/2021 Refill [facility] #2 [place] [address] Jabier Peck MD #[address] [address] Medication Refill Social History Tobacco Use Types [...] CDT Gender Identity Male 05/03/2023 12:44 PM PUBLICATION DESIGNER Sexual Orientation Lesbian or Wolff 05/03/2023 12 :44 PM PUBLICATION DESIGNER documented as of this encounter Miscellaneous [...] 11/16/20 Office Visit Kishore Prieto APRN, RICHARD [facility] [place] Showing recent visits within past 365 days and meeting all other requirements Future Appointments Date Type Provider Dept 10/31/21 Appointment Jabier Peck MD [facility] Showing future appointments within next 90 days and meeting all other requirements documented in this encounter Plan of Treatment Upcoming Encounters Date Type Department Care Team (Late st Contact Info) Description 07/14/2025 1:30 PM PUBLICATION DESIGNER [facility] [place] [address] [place] [address] Aria Delong APRN, MORTGAGE LOAN ORIGINATOR #[address] [place] [address] documented as of this encounter Visit Diagnoses Diagnosis Cervical radiculopathy Brachial neuritis or radiculitis nos documented in this encounter Additional Health Concerns Infection Onset Date Last Indicated Resolved Time COVID - 19 Confirmed 05/31/2022 05/31/2022 023 12:16 AM PUBLICATION DESIGNER Respiratory Rule Out - RPA 02/26/2023 02/26/2023 0 02/26/2023 11:31 AM CDT COVID - 19 02/26/2023 02/26/2023 03/08/2023 12:1 6 AM CDT documented as of this encounter Care Teams Frame Straightener Relationship Specialty Start Date End Date Jabier Peck MD #2 [facility] [address] [place] [address] PCP - General Family Medicine 06/22/20 01/16/24 Tad Mcintosh MD [address] [place] [address] PCP - General Family Medicine 01/17/24 Srikanth Adrian MD #2 [facility] [address] [place] [address] Certified Physical Therapist Assistant Cardiovascular Disease - Cardiology 02/02/22 08/06/24 Gloria Martinez MD #2 [facility] [address] [place] [address] Consulting Physician Urology 04/30/24 documented as of this encounter
--- OUTSIDE RECORDS SUMMARY | 2025-05-17 17:24 | XMS_ITS | Encounter Summary ---
Author Organization [facility] Address [address] [place] [address] Phone Care Team Providers Care Erco Machine Operator Name Role Phone Jabier Peck MD Primary Care Provider [phone] Srikanth Adrian MD Unavailable Tad Romero MD Primary Care Provider [phone] Gloria Martinez MD Unavailable [phone] Reason for Visit * Reason Comments Medication Refill Encounter Details Date Type Department Care Team (Late st Contact Info) Description 04/13/2023 Refill [facility] #2 [place] [phone] Jabier Peck MD #[address] [address] Medication Refill Social History Tobacco Use Types [...] CDT Gender Identity Male 05/03/2023 12:44 PM DRIVER MATERIAL HANDLER Sexual Orientation Lesbian or Wolff 05/03/2023 12 :44 PM DRIVER MATERIAL HANDLER documented as of this encounter Miscellaneous [...] Dept 02/26/23 [facility]/18/22 Telemedicine Jabier Peck MD [facility] 11/30/22 Telemedicine Kishore Prieto APRN, PARTNER [facility] [place] 08/21/22 Office Visit Jabier Peck MD [facility] 07/20/22 Office Visit Gerri Rocha MD [facility] 05/03/22 Telemedicine Jabier Peck MD [facility] [place] Showing recent visits within past 365 days and meeting all other requirements Future Appointments Date Type Provider Dept 06/28/23 Appointment Jabier Peck MD [facility] Showing future appointments within next 90 days and meeting all other requirements documented in this encounter Plan of Treatment Upcoming Encounters Date Type Department Care Team (Late st Contact Info) Description 07/14/2025 1:30 PM DRIVER MATERIAL HANDLER Office Visit [facility] - Neurology - [place] #[address] [place] [address] Aria Delong, CENTRAL OFFICE INSPECTOR, BEHAVIORAL HEALTH AIDE #2 [place] [address] documented as of this encounter Visit Diagnoses Diagnosis Cervical radiculopathy Brachial neuritis or radiculitis nos documented in this encounter Care Teams Erco Machine Operator Relationship Specialty Start Date End Date Jabier Peck MD #2 [facility] [address] [place] [address] PCP - General Family Medicine 06/22/20 01/16/24 Tad Mcintosh MD [address] [place] [address] PCP - General Family Medicine 01/17/24 Srikanth Adrian MD #2 [facility] [address] [place] [address] Train Operations Manager Cardiovascular Disease - Cardiology 02/02/22 08/06/24 Gloria Martinez MD #2 [facility] [address] [place] [address] Consulting Physician Urology 04/30/24 documented as of this encounter
--- OUTSIDE RECORDS SUMMARY | 2025-05-17 17:24 | XMS_ITS | Encounter Summary ---
Author Organization [facility] Address [address] [place] [address] Phone Care Team Providers Care Superintendent Stations Name Role Phone Jabier Peck MD Primary Care Provider [phone] Srikanth Adrian MD Unavailable Tad Romero MD Primary Care Provider [phone] Gloria Martinez MD Unavailable [phone] Reason for Visit * Reason Comments Medication Refill Encounter Details Date Type Department Care Team (Late st Contact Info) Description 11/23/2021 Refill [facility] Family [facility] #2 [place] [address] Jabier Peck MD #[address] [address] Medication Refill Social History Tobacco Use Types [...] Gender Identity Male 05/03/2023 12:44 PM MEDICAL BILL PROCESSOR Sexual Orientation Lesbian or Wolff 05/03/2023 12 :44 PM MEDICAL BILL PROCESSOR documented as of this encounter Miscellaneous [...] Dept 08/01/21 Office Visit Jabier Peck MD [facility] [place] 04/29/21 Office Visit Jabier Peck MD [facility] [place] 03/16/21 Office Visit Kishore Prieto APRN, TICKET DISPATCHER [facility] Showing recent visits within past 365 days and meeting all other requirements Future Appointments No visits were found meeting these conditions. Showing future appointments within next 90 days and meeting all other requirements documented in this encounter Plan of Treatment Upcoming Encounters Date Type Department Care Team (Late st Contact Info) Description 07/14/2025 1:30 PM MEDICAL BILL PROCESSOR Office Visit [facility] - Neurology - [place] #2 [place] [address] Aria Delong APRN, INSPECTOR PENETRANT #2 [place] [address] documented as of this encounter Visit Diagnoses Diagnosis Cervical radiculopathy Brachial neuritis or radiculitis nos documented in this encounter Additional Health Concerns Infection Onset Date Last Indicated Resolved Time COVID - 19 Confirmed 05/31/2022 05/31/2022 023 12:16 AM MEDICAL BILL PROCESSOR Respiratory Rule Out - RPA 02/26/2023 02/26/2023 0 02/26/2023 11:31 AM CDT COVID - 19 02/26/2023 02/26/2023 03/08/2023 12:1 6 AM CDT documented as of this encounter Care Teams Superintendent Stations Relationship Specialty Start Date End Date Jabier Peck MD #2 [facility] [address] [place] [address] PCP - General Family Medicine 06/22/20 01/16/24 Tad Mcintosh MD [address] [place] [address] PCP - General Family Medicine 01/17/24 Srikanth Adrian MD #2 [facility] [address] [place] [address] Clinic Director Cardiovascular Disease - Cardiology 02/02/22 08/06/24 Gloria Martinez MD #2 [facility] [address] [place] [address] Consulting Physician Urology 04/30/24 documented as of this encounter
--- OUTSIDE RECORDS SUMMARY | 2025-05-17 17:24 | XMS_ITS | Encounter Summary ---
Author Organization [facility] Address [address] [place] [address] Phone Care Team Providers Care Linting Machine Operator Name Role Phone Jabier Peck MD Primary Care Provider [phone] Srikanth Adrian MD Unavailable Tad Romero MD Primary Care Provider [phone] Gloria Martinez MD Unavailable [phone] Encounter Details Date Type Department Care Team (Late st Contact Info) Description 03/21/2023 Telephone [facility] [address] [place] [address] Jabier Peck MD #[address] [address] Social History Tobacco Use Types Packs/Day Years [...] Gender Identity Male 05/03/2023 12:44 PM PLANT UTILITY PERSON Sexual Orientation Lesbian or Wolff 05/03/2023 12 :44 PM PLANT UTILITY PERSON COVID-19 Exposure Response Date Recorded In the [...] st Contact Info) Description 07/14/2025 1:30 PM PLANT UTILITY PERSON [facility] Visit [facility] - Neurology - [place] #[address] [place] [address] Aria Delong APRN, INDEPENDENT SALES REPRESENTATIVE #2 [place] [address] documented as of this encounter Visit Diagnoses Not on filedocumented in this encounter Care Teams Linting Machine Operator Relationship Specialty Start Date End Date Jabier Peck MD #[address] [address] PCP - General Family Medicine 06/22/20 01/16/24 Tad Mcintosh MD [address] [place] [address] PCP - General Family Medicine 01/17/24 Srikanth Adrian MD #2 [facility] [address] [place] [address] Desktop Support Manager Cardiovascular Disease - Cardiology 02/02/22 08/06/24 Gloria Martinez MD #2 [facility] [address] [place] [address] Consulting Physician Urology 04/30/24 documented as of this encounter
--- OUTSIDE RECORDS SUMMARY | 2025-05-17 17:24 | XMS_ITS | Encounter Summary ---
Author Organization [facility] Address [address] [place] [address] Phone Care Team Providers Care Inflated Ball Molder Name Role Phone Jabier Peck MD Primary Care Provider + -[phone] Srikanth Adrian MD Unavailable Tad Romero MD Primary Care Provider [phone] Gloria Martinez MD Unavailable [phone] Reason for Visit * Reason Comments Medication Refill Encounter Details Date Type Department Care Team (Late st Contact Info) Description 03/24/2022 Refill [facility] Family Medicine [facility] #2 [place] [phone] Kishore Prieto APRN, MANAGER PROJECT MANAGEMENT #[address] [address] Medication Refill Social History Tobacco Use Types [...] CDT Gender Identity Male 05/03/2023 12:44 PM HOSPICE HOME HEALTH AIDE Sexual Orientation Lesbian or Wolff 05/03/2023 12 :44 PM HOSPICE HOME HEALTH AIDE COVID-19 Exposure Response Date Recorded In [...] st Contact Info) Description 07/14/2025 1:30 PM HOSPICE HOME HEALTH AIDE Office Visit [facility] - Neurology - [place] #2 [place] [id number] Aria Delong, DEVELOPMENT REPRESENTATIVE, BAND INSTRUMENT REPAIRER #2 [place] [address] documented as of this encounter Visit Diagnoses Diagnosis Cervical radiculopathy Brachial neuritis or radiculitis nos Lumbar radiculopathy Thoracic or lumbosacral neuritis or radiculitis, unspecified documented in this encounter Additional Health Concerns Infection Onset Date Last Indicated Resolved Time COVID - 19 Confirmed 05/31/2022 05/31/2022 023 12:16 AM HOSPICE HOME HEALTH AIDE Respiratory Rule Out - RPA 02/26/2023 02/26/2023 0 02/26/2023 11:31 AM CDT COVID - 19 02/26/2023 02/26/2023 03/08/2023 12:1 6 AM CDT documented as of this encounter Care Teams Inflated Ball Molder Relationship Specialty Start Date End Date Jabier Peck MD #[address] [address] PCP - General Family Medicine 06/22/20 01/16/24 Tad Mcintosh MD [address] [place] [address] PCP - General Family Medicine 01/17/24 Srikanth Adrian MD #[address] [address] Melting Supervisor Cardiovascular Disease - Cardiology 02/02/22 08/06/24 Gloria Martinez MD #[address] [address] Consulting Physician Urology 04/30/24 documented as of this encounter
--- OUTSIDE RECORDS SUMMARY | 2025-05-17 17:24 | XMS_ITS | Encounter Summary ---
Author Organization [facility] Address [address] [place] [address] Phone Care Team Providers Care Bullet Lubricant Mixer Name Role Phone Jabier Peck MD Primary Care Provider [phone] Srikanth Adrian MD Unavailable Tad Romero MD Primary Care Provider [phone] Gloria Martinez MD Unavailable [phone] Reason for Visit * Reason Comments Medication Refill Encounter Details Date Type Department Care Team (Late st Contact Info) Description 03/19/2023 Refill [facility] #2 [place] [phone] Jabier Peck MD #[address] [address] Medication Refill Social History Tobacco Use Types [...] CDT Gender Identity Male 05/03/2023 12:44 PM CRM SYSTEM ADMINISTRATOR Sexual Orientation Lesbian or Wolff 05/03/2023 12 :44 PM CRM SYSTEM ADMINISTRATOR COVID-19 Exposure Response Date Recorded In [...] [facility] [place] 05/03/22 Telemedicine [facility]ier [facility] [place] Showing recent visits within past 365 [...] st Contact Info) Description 07/14/2025 1:30 PM CRM SYSTEM ADMINISTRATOR Office Visit [facility] - Neurology [facility] #2 [place] [address] Aria Delong, FOLDED CLOTH TAPER, CORRECTIONAL THERAPY TEACHER #2 [place] [address] documented as of this encounter Visit Diagnoses Not on filedocumented in this encounter Care Teams Bullet Lubricant Mixer Relationship Specialty Start Date End Date Jabier Peck MD #2 [facility] [address] [place] [address] PCP - General Family Medicine 06/22/20 01/16/24 Tad Mcintosh MD [address] [place] [address] PCP - General Family Medicine 01/17/24 Srikanth Adrian MD #2 [facility] [address] [place] [address] Library Clerical Assistant Cardiovascular Disease - Cardiology 02/02/22 08/06/24 Gloria Martinez MD #2 [facility] [address] [place] [address] Consulting Physician Urology 04/30/24 documented as of this encounter
--- OUTSIDE RECORDS SUMMARY | 2025-05-17 17:24 | XMS_ITS | Encounter Summary ---
Author Organization [facility] Address [address] [place] [address] Phone Care Team Providers Care Derrick Follower Name Role Phone Jabier Peck MD Primary Care Provider [phone] Srikanth Adrian MD Unavailable Tad Romero MD Primary Care Provider [phone] Gloria Martinez MD Unavailable [phone] Reason for Visit * Reason Comments Medication Refill Encounter Details Date Type Department Care Team (Late st Contact Info) Description 05/14/2023 Refill [facility] Family Medicine [facility] #2 [place] [phone] Jabier Peck MD #[address] [address] Medication Refill Social History Tobacco Use Types [...] Gender Identity Male 05/03/2023 12:44 PM AUTOMATION QA ANALYST Sexual Orientation Lesbian or Wolff 05/03/2023 12 :44 PM AUTOMATION QA ANALYST documented as of this encounter Miscellaneous [...] 90 days and meeting all other requirements MATION QA ANALYST documented in this encounter Plan of Treatment Upcoming Encounters Date Type Department Care Team (Late st Contact Info) Description 07/14/2025 1:30 PM AUTOMATION QA ANALYST Office Visit [facility] - Neurology - [place] #2 [facility] [place] [address] Aria Delong APRN, SPANISHER #2 [facility] [place] [address] documented as of this encounter Visit Diagnoses Not on filedocumented in this encounter Care Teams Derrick Follower Relationship Specialty Start Date End Date Jabier Peck MD #2 [facility] [address] [place] [address] PCP - General Family Medicine 06/22/20 01/16/24 Tad Mcintosh MD [address] [place] [address] PCP - General Family Medicine 01/17/24 Srikanth Adrian MD #2 [facility] [address] [place] [address] Applied Technologist Cardiovascular Disease - Cardiology 02/02/22 08/06/24 Gloria Martinez MD #2 [facility] [address] [place] [address] Consulting Physician Urology 04/30/24 documented as of this encounter
--- OUTSIDE RECORDS SUMMARY | 2025-05-17 17:24 | XMS_ITS | Encounter Summary ---
Author Organization [facility] Address [address] [place] [address] Phone Care Team Providers Care Staffing And Scheduling Coordinator Name Role Phone Jabier Peck MD Primary Care Provider + [phone] Srikanth Adrian MD Unavailable Tad Romero MD Primary Care Provider [phone] Gloria Martinez MD Unavailable [phone] Reason for Visit * Reason Comments Medication Refill Encounter Details Date Type Department Care Team (Late st Contact Info) Description 08/19/2022 Refill [facility] Oncology Services [address] [place] [address] Jt Morillo MD [address] [place] [address] Medication Refill Social History Tobacco Use Types [...] CDT Gender Identity Male 05/03/2023 12:44 PM INTERNAL RECRUITER Sexual Orientation Lesbian or Wolff 05/03/2023 12 :44 PM INTERNAL RECRUITER COVID-19 Exposure Response Date Recorded In the last 10 days, have yo u been in contact with someone who was confirmed or suspected to have Coronavirus/COVID-19? No / Unsure 08/21/2022 12:53 PM INTERNAL RECRUITER documented as of this encounter Functional Status documented as of this encounter Mental Status * Question Answer Entry Date Author BP 118/78 08/21/2022 3:08 PM INTERNAL RECRUITER Maryann Saab MA Temp 98 08/21/2022 3:08 PM INTERNAL RECRUITER Maryann Saab MA Pulse 77 08/21/2022 3:08 PM INTERNAL RECRUITER Maryann Saab MA SpO2 97 08/21/2022 3:08 PM INTERNAL RECRUITER Maryann Saab MA documented in this encounter Miscellaneous Notes * Telephone Encounter - Aisha Escamilla RN - 08/21/2022 12:02 PM CST Approved Eliquis per last f/u note. RNAL RECRUITER documented in this encounter Plan of Treatment Upcoming Encounters Date Type Department Care Team (Late st Contact Info) Description 07/14/2025 1:30 PM INTERNAL RECRUITER [facility] [place] #2 [place] [address] Aria Del[place] APRN, RHIA #2 [place] [address] documented as of this encounter Visit Diagnoses Diagnosis History of thrombophilia associated with MTHFR mutation documented in this encounter Additional Health Concerns Infection Onset Date Last Indicated Resolved Time Respiratory Rule Out - RPA 02/26/2023 02/26/2023 0 02/26/2023 11:31 AM CDT COVID - 19 02/26/2023 02/26/2023 03/08/2023 12:1 6 AM CDT documented as of this encounter Care Teams Staffing And Scheduling Coordinator Relationship Specialty Start Date End Date Jabier Peck MD #2 [facility] [address] [place] [address] PCP - General Family Medicine 06/22/20 01/16/24 Tad Mcintosh MD [address] [place] [address] PCP - General Family Medicine 01/17/24 Srikanth Adrian MD #2 [facility] [address] [place] [address] Golf Course Ranger Cardiovascular Disease - Cardiology 02/02/22 08/06/24 Gloria Martinez MD #2 [facility] [address] [place] [address] Consulting Physician Urology 04/30/24 documented as of this encounter
--- OUTSIDE RECORDS SUMMARY | 2025-05-17 17:24 | XMS_ITS | Encounter Summary ---
Author Organization [facility] Address [address] [place] [address] Phone Care Team Providers Care Hostess Cashier Name Role Phone Jabier Peck MD Primary Care Provider + [phone] Srikanth Adrian MD Unavailable Tad Romero MD Primary Care Provider [phone] Gloria Martinez MD Unavailable [phone] Reason for Visit * Reason Comments Medication Refill Encounter Details Date Type Department Care Team (Late st Contact Info) Description 04/11/2021 Refill [facility] - Family Medicine [facility] #2 [place] [phone] Kishore Prieto APRN, LUMBER DRIVER #[address] [address] Medication Refill Social History Tobacco Use Types [...] CDT Gender Identity Male 05/03/2023 12:44 PM SKILLED LABOR Sexual Orientation Lesbian or Wolff 05/03/2023 12 :44 PM SKILLED LABOR COVID-19 Exposure Response Date Recorded In the last month, have you been in contact with someone who was confirmed or suspected to have Coronavirus / COVID-19? No / Unsure 04/14/2021 12:48 PM CDT documented as of this encounter Miscellaneous Notes * Telephone Encounter - Sabina Holly RN - 04/12/2021 12:20 PM CDT Tonny calling in from [facility]. He is requesting to find [...] st Contact Info) Description 07/14/2025 1:30 PM SKILLED LABOR Office Visit [facility] - Neurology [facility] #2 [place] [address] Aria Delong APRN, SOLDERING MACHINE FEEDER #2 [place] [address] documented as of this encounter Visit Diagnoses Diagnosis Cervical radiculopathy Brachial neuritis or radiculitis nos documented in this encounter Additional Health Concerns Infection Onset Date Last Indicated Resolved Time COVID - 19 Confirmed 05/31/2022 05/31/2022 023 12:16 AM SKILLED LABOR Respiratory Rule Out - RPA 02/26/2023 02/26/2023 0 02/26/2023 11:31 AM CDT COVID - 19 02/26/2023 02/26/2023 03/08/2023 12:1 6 AM CDT documented as of this encounter Care Teams Hostess Cashier Relationship Specialty Start Date End Date Jabier Peck MD #2 [facility] [address] [place] [address] PCP - General Family Medicine 06/22/20 01/16/24 Tad Mcintosh MD [address] [place] [address] PCP - General Family Medicine 01/17/24 Srikanth Adrian MD #2 [facility] [address] [place] [address] Press Set Up Cardiovascular Disease - Cardiology 02/02/22 08/06/24 Gloria Martinez MD #2 [facility] [address] [place] [address] Consulting Physician Urology 04/30/24 documented as of this encounter
--- OUTSIDE RECORDS SUMMARY | 2025-05-17 17:24 | XMS_ITS | Encounter Summary ---
Author Organization [facility] Address [address] [place] [address] Phone Care Team Providers Care Channel Man Name Role Phone Jabier Peck MD Primary Care Provider + [phone] Srikanth Adrian MD Unavailable Tad Romero MD Primary Care Provider [phone] Gloria Martinez MD Unavailable [phone] Reason for Visit * Reason Comments Medication Refill Encounter Details Date Type Department Care Team (Late st Contact Info) Description 06/12/2022 Refill [facility] Family [facility] #2 [place] [address] Jabier Peck MD #[address] [address] Medication Refill Social History Tobacco Use Types [...] CDT Gender Identity Male 05/03/2023 12:44 PM SMELTER LINER Sexual Orientation Lesbian or Wolff 05/03/2023 12 :44 PM SMELTER LINER COVID-19 Exposure Response Date Recorded In the last 10 days, have yo u been in contact with someone who was confirmed or suspected to have Coronavirus/COVID-19? Yes 05/31/2022 2:12 PM SMELTER LINER documented as of this encounter Miscellaneous Notes * Telephone Encounter - Anjali Hartley RN - 06/13/2022 11:16 AM SMELTER LINER Medication warning. Per nursing clinical judgement, provider [...] days and meeting all other requirements TER LINER documented in this encounter Plan of Treatment Upcoming Encounters Date Type Department Care Team (Late st Contact Info) Description 07/14/2025 1:30 PM SMELTER LINER Office Visit [facility] - Neurology - [place] #[address] [place] [address] Aria Delong, HEALTHCARE SCIENCE SPECIALIST, DRAW FURNACE TENDER #2 [facility] [place] [address] documented as of this encounter Visit Diagnoses Not on filedocumented in this encounter Additional Health Concerns Infection Onset Date Last Indicated Resolved Time COVID - 19 Confirmed 05/31/2022 05/31/2022 023 12:16 AM SMELTER LINER Respiratory Rule Out - RPA 02/26/2023 02/26/2023 0 02/26/2023 11:31 AM CDT COVID - 19 02/26/2023 02/26/2023 03/08/2023 12:1 6 AM CDT documented as of this encounter Care Teams Channel Man Relationship Specialty Start Date End Date Jabier Peck MD #2 [facility] [address] [place] [address] PCP - General Family Medicine 06/22/20 01/16/24 Tad Mcintosh MD [address] [place] [address] PCP - General Family Medicine 01/17/24 Srikanth Adrian MD #2 [facility] [address] [place] [address] Insulation Packer Cardiovascular Disease - Cardiology 02/02/22 08/06/24 Gloria Martinez MD #2 [facility] [address] [place] [address] Consulting Physician Urology 04/30/24 documented as of this encounter
--- OUTSIDE RECORDS SUMMARY | 2025-05-17 17:24 | XMS_ITS | Encounter Summary ---
Author Organization [facility] Address [address] [place] [address] Phone Care Team Providers Care Sandwich Peddler Name Role Phone Macy Kwok MD Primary Care Provider [phone] Srikanth Adrian MD Unavailable Tad Romero MD Primary Care Provider [phone] Gloria Martinez MD Unavailable [phone] Reason for Visit * Reason Comments Medication Refill Encounter Details Date Type Department Care Team (Late st Contact Info) Description 01/23/2022 Refill [facility] Family Medicine [facility] #2 [place] [address] Macy Kwok MD #[address] [address] Medication Refill Social History Tobacco Use Types [...] CDT Gender Identity Male 05/03/2023 12:44 PM INTERIOR DESIGN PROJECT MANAGER Sexual Orientation Lesbian or Wolff 05/03/2023 12 :44 PM INTERIOR DESIGN PROJECT MANAGER COVID-19 Exposure Response Date Recorded In [...] Dept 01/31/22 Appointment Kishore Prieto APRN, [facility] [place] Showing future appointments within next 90 [...] [place] 04/29/21 Office Visit Macy Kwok MD [facility] [place] Showing recent visits within past 270 days and meeting all other requirements Future Appointments Date Type Provider Dept 01/31/22 Appointment Kishore Prieto APRN, SALES REPRESENTATIVE [employer]IL[employer] [facility] [place] Showing future appointments within [...] TABLET 12/27/2021 90 90 Each [facility]Y K[facility][id number] - G... documented in this encounter Plan of Treatment Upcoming Encounters Date Type Department Care Team (Late st Contact Info) Description 07/14/2025 1:30 PM INTERIOR DESIGN PROJECT MANAGER Office Visit [facility] - Neurology [facility] #2 [place] [address] Aria Delong APRN, TREE CARE FOREMAN #2 [place] [address] documented as of this encounter Visit Diagnoses Diagnosis Cervical radiculopathy Brachial neuritis or radiculitis nos documented in this encounter Additional Health Concerns Infection Onset Date Last Indicated Resolved Time COVID - 19 Confirmed 05/31/2022 05/31/2022 023 12:16 AM INTERIOR DESIGN PROJECT MANAGER Respiratory Rule Out - RPA 02/26/2023 02/26/2023 0 02/26/2023 11:31 AM CDT COVID - 19 02/26/2023 02/26/2023 03/08/2023 12:1 6 AM CDT documented as of this encounter Care Teams Sandwich Peddler Relationship Specialty Start Date End Date Macy Kwok MD #2 [facility] [address] [place] [address] PCP - General Family Medicine 06/22/20 01/16/24 Tad Mcintosh MD [address] [place] [address] PCP - General Family Medicine 01/17/24 Srikanth Adrian MD #2 [facility] [address] [place] [address] Orthodontic Laboratory Technician Cardiovascular Disease - Cardiology 02/02/22 08/06/24 Gloria Martinez MD #2 [facility] [address] [place] [address] Consulting Physician Urology 04/30/24 documented as of this encounter
--- OUTSIDE RECORDS SUMMARY | 2025-05-17 17:24 | XMS_ITS | Encounter Summary ---
Author Organization [facility] Address [address] [place] [address] Phone Care Team Providers Care Chief Dispatcher Service Name Role Phone Jabier Peck MD Primary Care Provider [phone] Srikanth Adrian MD Unavailable Tad Romero MD Primary Care Provider [phone] Gloria Martinez MD Unavailable [phone] Reason for Visit * Reason Comments Medication Refill Encounter Details Date Type Department Care Team (Late st Contact Info) Description 08/30/2022 Refill [facility] Family [facility] #2 [place] [address] Jabier Peck MD #[address] [address] Medication Refill Social History Tobacco Use Types [...] CDT Gender Identity Male 05/03/2023 12:44 PM ENGINEERING PROGRAMMER Sexual Orientation Lesbian or Wolff 05/03/2023 12 :44 PM ENGINEERING PROGRAMMER COVID-19 Exposure Response Date Recorded In the last 10 days, have tabby u been in contact with someone who was confirmed or suspected to have Coronavirus/COVID-19? No / Unsure 08/21/2022 12:53 PM ENGINEERING PROGRAMMER documented as of this encounter Miscellaneous [...] [place] 02/24/22 Office Visit Kishore Prieto APRN, RICAHRD [facility] [place] 01/31/22 Office Visit Kishore Prieto APRN, RICHARD [facility] [place] 12/13/21 Telemedicine Kishore Prieto APRN, RICHARD [facility] [place] Showing recent visits within past 365 days and meeting all other requirements Future Appointments Date Type Provider Dept 11/21/22 Appointment Jabier Peck MD [facility] [place] Showing future appointments within next 90 days and meeting all other requirements documented in this encounter Plan of Treatment Upcoming Encounters Date Type Department Care Team (Late st Contact Info) Description 07/14/2025 1:30 PM ENGINEERING PROGRAMMER Office Visit [facility] - Neurology - [place] #2 [place] [address] Aria Delong APRN, PROGRESS DEVELOPER #2 [place] [address] documented as of this encounter Visit Diagnoses [...] documented as of this encounter Care Teams Chief Dispatcher Service Relationship Specialty Start Date End Date Jabier Peck MD #[address] [address] PCP - General Family Medicine 06/22/20 01/16/24 Tad Mcintosh MD [address] [place] [address] PCP - General Family Medicine 01/17/24 Srikanth Adrian MD #[address] [address] Program Eligibility Specialist Cardiovascular Disease - Cardiology 02/02/22 08/06/24 Gloria Martinez MD #[address] [address] Consulting Physician Urology 04/30/24 documented as of this encounter
--- OUTSIDE RECORDS SUMMARY | 2025-05-17 17:24 | XMS_ITS | Encounter Summary ---
Author Organization [facility] Address [address] [place] [address] Phone Care Team Providers Care Kiln Burner Name Role Phone Jabier Peck MD Primary Care Provider + [phone] Srikanth Adrian MD Unavailable Tad Romero MD Primary Care Provider [phone] Gloria Martinez MD Unavailable [phone] Reason for Visit * Reason Comments Medication Refill Encounter Details Date Type Department Care Team (Late st Contact Info) Description 05/25/2022 Refill [facility] - Cancer Center Oncology Services [address] [place] [address] Jt Morillo MD [address] [place] [address] Medication Refill Social History Tobacco Use Types [...] CDT Gender Identity Male 05/03/2023 12:44 PM DISPATCH SUPERVISOR Sexual Orientation Lesbian or Wolff 05/03/2023 12 :44 PM DISPATCH SUPERVISOR COVID-19 Exposure Response Date Recorded In the last 10 days, have yo u been in contact with someone who was confirmed or suspected to have Coronavirus/COVID-19? No / Unsure 05/10/2022 2:32 PM DISPATCH SUPERVISOR documented as of this encounter Miscellaneous Notes * Telephone Encounter - Aisha Escamilla, RN - 05/26/2022 11:00 AM CST Approved Eliquis per last f/u note. Pt to be on indefinite AC. ATCH SUPERVISOR documented in this encounter Plan of Treatment Upcoming Encounters Date Type Department Care Team (Late st Contact Info) Description 07/14/2025 1:30 PM DISPATCH SUPERVISOR Office Visit [facility] Neu[facility] #2 [place] [address] Aria Delong APRN, TIMBER PACKER #2 [place] [address] documented as of this encounter Visit Diagnoses Diagnosis History of thrombophilia associated with MTHFR mutation documented in this encounter Additional Health Concerns Infection Onset Date Last Indicated Resolved Time COVID - 19 Confirmed 05/31/2022 05/31/2022 023 12:16 AM DISPATCH SUPERVISOR Respiratory Rule Out - RPA 02/26/2023 02/26/2023 0 02/26/2023 11:31 AM CDT COVID - 19 02/26/2023 02/26/2023 03/08/2023 12:1 6 AM CDT documented as of this encounter Care Teams Kiln Burner Relationship Specialty Start Date End Date Jabier Peck MD #[address] [address] PCP - General Family Medicine 06/22/20 01/16/24 Tad Mcintosh MD [address] [place] [address] PCP - General Family Medicine 01/17/24 Srikanth Adrian MD #2 [facility] [address] [address] Control Clerk Subassembly Cardiovascular Disease - Cardiology 02/02/22 08/06/24 Gloria Martinez MD #[address] [facility] [address] [place] [address] Consulting Physician Urology 04/30/24 documented as of this encounter
--- OUTSIDE RECORDS SUMMARY | 2025-05-17 17:25 | XMS_ITS | Clinical Summary ---
Author Organization [facility] Address [address] [place] [address] Care Team Providers Care Auxiliary Equipment Operator Name Role Phone Tad Mcintosh DO Primary [...] 04/29/2025 Assessment & Plan (04/29/2025 11:13 AM SCAGLIOLA MECHANIC): Prescription medications sent to Pharmacy today: Dexamethasone mouth rinse and spits before meals Peridex mouth rinse and spits after meals Viscous lidocaine as needed Follow up in 6 weeks if no improvement will recommend biopsy Keratosis 07/17/2024 Assessment & Plan (07/17/2024 1:09 PM SCAGLIOLA MECHANIC): Continue increased hydration Avoid acidic foods and fluids for one more week Thrombophilia 01/25/2023 Palpitations 11/22/2022 Chest pain 07/31/2022 Essential hypertension 07/31/2022 Tongue lesion 04/28/2020 Assessment & Plan (06/26/2024 9:29 AM SCAGLIOLA MECHANIC): Has pain medication prescribed by Manasa Cortes at [facility] will confirm use of [place] after surgery Stop Eliquis for 5 days before and after Excision of left lateral and right lateral tongue lesions with repair Risks and complications: Anesthesia, bleeding, infection, benign versus malignant pathology, recurrence of lesion, injury to arteries, nerves and veins, scarring and need for further treatment Assessment & Plan (04/28/2020 1:41 PM SCAGLIOLA MECHANIC): Speak to [facility] about smoothing out right first [...] week Assessment & Plan (04/28/2020 1:41 PM SCAGLIOLA MECHANIC): Speak to [facility] about smoothing out right first [...] (04/18/2019): Added automatically from request for surgery [id number] Hematochezia 03/04/2019 Overview (03/04/2019): Added automatically from request for surgery [id number] Family history of colon cancer 03/04/2019 Overview (03/04/2019): Added automatically from request for surgery [id number] 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 Odell level is in process. Will hold at [...] recommended Assessment & Plan (07/08/2019 3:43 PM SCAGLIOLA MECHANIC): Healthy, low carbohydrate lifestyle and exercise for [...] hydration Assessment & Plan (08/10/2017 1:23 PM SCAGLIOLA MECHANIC): s/p Right inferior parathyroidectomy - 08/10/2016 pre [...] renal Assessment & Plan (05/01/2017 10:36 PM SCAGLIOLA MECHANIC): s/p Right inferior parathyroidectomy - 08/10/2016 pre [...] future Assessment & Plan (08/10/2017 1:24 PM SCAGLIOLA MECHANIC): Recheck levels Assessment & Plan (12/17/2016 8:01 AM CDT): Recheck levels Type 2 diabetes mellitus wit h stage 3 chronic kidney disease, with long-term current use of insulin 12/11/2016 Assessment & Plan (07/08/2019 3:42 PM SCAGLIOLA MECHANIC): A1c 5.5% Jun 2019 on no medications. [...] needed. Assessment & Plan (08/10/2017 1:26 PM SCAGLIOLA MECHANIC): - A1c today 5.5 % - due [...] months. Assessment & Plan (05/01/2017 10:36 PM SCAGLIOLA MECHANIC): - reviewed BS log - BS well [...] statin. Assessment & Plan (08/10/2017 1:23 PM SCAGLIOLA MECHANIC): On statin therapy - advised to increase physical activity - advised low fat/chol diet and avoid greasy and junk food Assessment & Plan (05/01/2017 10:37 PM SCAGLIOLA MECHANIC): On statin therapy - advised to increase [...] activity Assessment & Plan (08/10/2017 1:24 PM SCAGLIOLA MECHANIC): BP well controlled, chronic At goal advised [...] quit smoking so they can encourage you. Branch Service Representative referral placed. Class 2 severe obesity due t o excess calories with serious comorbidity and body mass index (BMI) of 37.0 to 37.9 in adult 08/16/2012 Overview (09/22/2016): Obesity Assessment & Plan (12/25/2019 1:57 PM CDT): Healthy, low carbohydrate lifestyle and exercise for 150min/week recommended Referral for senior customer service representative placed. Assessment & Plan (10/16/2019 11:40 AM [...] greens, fat-free milk, cottage cheese, nuts like ullxzly-[id number], protein bars with 10-15 g of protein [...] discussed. Assessment & Plan (05/01/2017 10:37 PM SCAGLIOLA MECHANIC): Obesity is improving with treatment. Discussed the [...] time. Assessment & Plan (05/01/2017 10:37 PM SCAGLIOLA MECHANIC): Hypertension is improving with treatment. Continue current [...] Department Care Team Description 04/29/2025 9:45 AM SCAGLIOLA MECHANIC Office Visit [facility] - [address] [place] [address] Tammi Jeff DO Oral ulcer [...] kidney disease) stage 3, GFR 30-59 ml/min ([facility]) Odell poisoning Headache, tension-type Sleep apnea patient had Uvul a and T&A and the helped GERD (gastroesophageal reflu x disease) Irritable bowel syndrome Diverticulitis of colon Cerebrovascular accident (CVA) ([facility]) Cerebrovascular accident Cerebrovascular accident (CVA) ([facility]) Stroke Obesity Pulmonary embolism 12/15/2019 [...] Date Smoking Tobacco: Every Day Cigarettes 0.3 43.9 Started: 06/18/1981 Smokeless Tobacco: Never Tobacco [...] on file Legal Sex Male 5:22 PM SCAGLIOLA MECHANIC Gender Identity Not on file Sexual Orientation Not on file Last Filed Vital Signs Vital Sign Reading Time Taken Comments Blood Pressure 136/84 07/10/2024 4:54 PM SCAGLIOLA MECHANIC Pulse 62 07/10/2024 4:54 PM SCAGLIOLA MECHANIC Temperature 36.4 C (97.5 F) 07/10/2024 4:54 PM SCAGLIOLA MECHANIC Respiratory Rate 16 07/10/2024 4:54 PM SCAGLIOLA MECHANIC Oxygen Saturation 97% 07/10/2024 4:54 PM SCAGLIOLA MECHANIC Inhaled Oxygen Concentration - - Weight 105.8 kg (233 lb 4 oz) 07/10/2024 10:09 A M SCAGLIOLA MECHANIC Height 175.3 cm (5' 9) 07/10/2024 10:09 AM SCAGLIOLA MECHANIC Body Mass Index 34.44 07/10/2024 10:09 AM SCAGLIOLA MECHANIC Plan of Treatment Health Maintenance Due Date [...] 02/26/2029 02/26/2019 Medical Devices Implanted Type Area Store Warehouse Associate Device Identifier Shelf Expiration Date Model / Serial / Lot [place] 100e Angio-Seal Vip 6fr Closere Device [id number] - [id number] Implanted:Qty: 1 on 10/12/2022 by Eliel Ortiz MD at [facility] Other - see comments [employer] Kalin 03/17/2023 [id number] / / [id number] [employer] [id number] 4mm 44mm Compression Headless Foot Ankle Screw Bone - [id number] Implanted:Qty: 1 on 04/25/2019 by Chidi Rios DPM at [facility] Right: Toes [employer] [id number] / / [employer] [place] Ezm 10-10-10 Easyclip Si 2mm [id number] Monocortical Superelastic Reamer - [id number] Implanted:Qty: 1 on 04/25/2019 by Chidi Rios DPM at [facility] Right: Toes [employer] [place] 11/16/2023 EZM 10-10-10 / / [id number] [employer] [place] Ezm --10 Easyclip Si 2mm [id number] Monocortical Superelastic Reamer - [id number] Implanted:Qty: 1 on 04/25/2019 by Chidi Rios DPM at [facility] Right: Toes [employer] [place] 11/16/2023 [facility] 10-10-10 / / [id number] Toe Tac Xpress Hammertoe Fixation System Implanted:Qty: 2 on 04/25/2019 by Chidi Rios DPM at [facility] Right: Toes [employer] [id number] 05/27/2021 [id number] / [id number] / [id number] [employer] Implanted:Qty: 1 on 04/25/2019 by Chidi Rios DPM at [facility] Right: Toes [employer] 07/18/2028 [id number] / / [id number] Procedures Procedure Name Priority Date/Time Associated Diagnosis Comments EGFR STAT 04/19/2023 3:53 PM CDT HEMOGLOBIN A1C Routine 12/13/2019 2:55 PM CDT LIPID PANEL Routine 05/17/2018 2:25 PM SCAGLIOLA MECHANIC Type 2 diabetes mellitus with hyperglycemia, with long-term current use of insulin (HCC) from Last 3 Months or Most Recently Relevant to Health Maintenance Results * eGFR (04/19/2023 3:53 PM CDT) eGFR 51 mL/min/1. 73 m2 [facility] ([place]) Comment: Interpretive Data Reference Interval Normal >/= [...] ORDERABLE S Final Result Performing Organization Address City/[facility]/ZIP Co de Phone Number [facility] ([place]) 1 [facility] Department [place] [address] * (ABNORMAL) Hemoglobin A1c (12/13/2019 2:55 PM CDT) Blood specimen (specimen) 12/13/2019 2:55 PM CDT Narrative [facility] - 12/13/2019 2:55 PM CDT Results in labs Aliza Carlson MD LAB BLOOD ORDERABLES Becky l Result Performing Organization Address [facility] [place] [phone] * (ABNORMAL) Lipid panel (05/17/2018 2:25 PM SCAGLIOLA MECHANIC) Cholesterol 159 30 - 199 mg/dL JANUARY [...] ([place]) Blood specimen (specimen) 05/17/2018 2:25 PM SCAGLIOLA MECHANIC 05/17/2018 5:15 PM SCAGLIOLA MECHANIC Narrative [facility] ([place]) - 05/17/2018 6:14 PM SCAGLIOLA MECHANIC Cleoja Levi Sims MD LAB BLOOD ORDERABLE S Final Result [facility] ([place]) 1 [facility] Department [place] [address] from Last 3 Months or Most Recently Relevant to Health Maintenance Insurance [employer] [facility] MEDICARE ADVANTAGE MEDICARE [facility] MEDICARE ADVANTAGE [facility] MEDIC[facility] ADVANTAGE [employer] [facility] MEDIC[employer] ADVANTAGE Advance Directives For more information, please contact: [phone] * Full Code (Latest Code Status on File) Date Activated Date Inactivated Comments 10/12/2022 2:12 PM 10/12/2022 10:46 PM * Full Code Date Activated Date Inactivated Comments 09/24/2017 9:04 PM 09/30/2017 5:22 PM Care Teams Auxiliary Equipment Operator Relationship Specialty Start Date End Date Tad Mcintosh DO [address] [place] [address] PCP - General Family Medicine 06/26/24
[2025-05-17 17:28] VITALS: O2SAT 97
[2025-05-17 17:30] VITALS: O2SAT 97
[2025-05-17 17:32] VITALS: BP 138/89; PULSE 84; RESP 20; O2SAT 96
--- NOTE | 2025-05-17 17:32 | ECG_ITS ---
Test Date: 2025-05-17 17:39:52 Measurements Intervals Odon Rate: 62 P: 40 NE: 165 QRS: 55 QRSD: 111 T: 55 QT: 415 QTc: 423 Interpretive Statements SINUS RHYTHM MODERATE INTRAVENTRICULAR CONDUCTION DELAY [110+ ms QRS DURATION] Compared to ECG 01/10/2025 16:17:52 Intraventricular conduction delay now present ST (T wave) deviation no longer present Electronically Signed On 05-17-2025 19:00:36 CHEMICAL MILLING PROCESSOR by Abigail Stafford M.D.
[2025-05-17 17:54] LABS: Add Urine Microscopic? NO; Appearance Urine Clear (Clear); Glucose Urine UA Negative (Negative); Leukocyte Esterase Ur Negative LEU/UL (Negative); Nitrate Urine Negative (Negative); Specific Grav Ur <= 1.005 (1.010-1.020)
[2025-05-17 18:06] LABS: Hematocrit 40.6 % (40.0-54.0); Hemoglobin 13.6 g/dL (14.0-18.0); Immature Granulocyte Percent A 0.2 % (0.0-0.0); Lymphocytes Absolute Auto 2.98 K/mm3 (1.10-4.50); Mean Corpuscular HGB Conc 33.5 g/dL (32-36); Mean Corpuscular Hemoglobin 31.4 pg (27.0-31.0); Mean Corpuscular Volume 93.8 fL (78.0-102.0); Nucleated Red Blood Cells Absolute Auto 0.00 K/mm3 (0.00-0.00); Nucleated Red Blood Cells Perc 0.0 % (0-0.0); Platelet Count Result 213 K/mm3 (150-420); Red Blood Count 4.33 M/mm3 (4.70-6.10); White Blood Count 9.5 K/mm3 (4.8-10.8)
--- OUTSIDE RECORDS SUMMARY | 2025-05-17 18:08 | XMS_ITS | Encounter Summary ---
Author Organization [facility] Address [address] [place] [address] Phone Care Team Providers Care Furnace Erector Name Role Phone Jabier Peck MD Primary Care Provider [phone] Srikanth Adrian MD Unavailable Tad Romero MD Primary Care Provider [phone] Gloria Martinez MD Unavailable [phone] Reason for Visit * Reason Comments Medication Refill Encounter Details Date Type Department Care Team (Late st Contact Info) Description 11/23/2021 Refill [facility] [address] [place] [address] Jabier Peck MD #[address] [address] Medication Refill Social History Tobacco Use Types [...] CDT Gender Identity Male 05/03/2023 12:44 PM VICE PRESIDENT GLOBAL ADVERTISING SALES Sexual Orientation Lesbian or Wolff 05/03/2023 12 :44 PM VICE PRESIDENT GLOBAL ADVERTISING SALES documented as of this encounter Miscellaneous Notes [...] Dept 08/01/21 Office Visit Jabier Peck MD [facility] [place] 04/29/21 Office Visit Jabier Peck MD [facility] [place] 03/16/21 Office Visit Kishore Prieto APRN, FIBREGLASS GUN HAND [facility] Showing recent visits within past 365 days and meeting all other requirements Future Appointments No visits were found meeting these conditions. Showing future appointments within next 90 days and meeting all other requirements documented in this encounter Plan of Treatment Upcoming Encounters Date Type Department Care Team (Late st Contact Info) Description 07/14/2025 1:30 PM VICE PRESIDENT GLOBAL ADVERTISING SALES Office Visit [facility] - Neurology - [place] [address] [place] [address] Aria Delong APRN, ELECTRON MICROSCOPIST #[address] [place] [address] documented as of this encounter Visit Diagnoses Diagnosis Cervical radiculopathy Brachial neuritis or radiculitis nos documented in this encounter Additional Health Concerns Infection Onset Date Last Indicated Resolved Time COVID - 19 Confirmed 05/31/2022 05/31/2022 023 12:16 AM VICE PRESIDENT GLOBAL ADVERTISING SALES Respiratory Rule Out - RPA 02/26/2023 02/26/2023 0 02/26/2023 11:31 AM CDT COVID - 19 02/26/2023 02/26/2023 03/08/2023 12:1 6 AM CDT documented as of this encounter Care Teams Furnace Erector Relationship Specialty Start Date End Date Jabier Peck MD #2 [facility] [address] [place] [address] PCP - General Family Medicine 06/22/20 01/16/24 Tad Mcintosh MD [address] [place] [address] PCP - General Family Medicine 01/17/24 Srikanth Adrian MD #2 [facility] [address] [place] [address] Psych Specialist Cardiovascular Disease - Cardiology 02/02/22 08/06/24 Gloria Martinez MD #2 [facility] [address] [place] [address] Consulting Physician Urology 04/30/24 documented as of this encounter
--- OUTSIDE RECORDS SUMMARY | 2025-05-17 18:08 | XMS_ITS | Encounter Summary ---
Author Organization [facility] Address [address] [place] [address] Phone Care Team Providers Care Salt Washer Harvesting Station Name Role Phone Jabier Peck MD Primary Care Provider [phone] Srikanth Adrian MD Unavailable Tad Romero MD Primary Care Provider [phone] Gloria Martinez MD Unavailable [phone] Reason for Visit * Reason Comments Medication Refill Encounter Details Date Type Department Care Team (Late st Contact Info) Description 08/19/2021 Refill [facility] #[address] [place] [address] Jabier Peck MD #[address] [address] Medication Refill Social History Tobacco Use Types [...] CDT Gender Identity Male 05/03/2023 12:44 PM ELECTRICIAN RESEARCH Sexual Orientation Lesbian or Wolff 05/03/2023 12 :44 PM ELECTRICIAN RESEARCH COVID-19 Exposure Response Date Recorded In the last month, have you been in contact with someone who was confirmed or suspected to have Coronavirus / COVID-19? No / Unsure 08/01/2021 1:35 PM ELECTRICIAN RESEARCH documented as of this encounter Miscellaneous Notes [...] [place] 08/20/20 Telemedicine Kishore Prieto APRN, RICHARD [facility] [place] Showing recent visits within past 365 days and meeting all other requirements Future Appointments Date Type Provider Dept 10/31/21 Appointment Jabier Peck MD [facility] Showing future appointments within next 90 days and meeting all other requirements TRICIAN RESEARCH documented in this encounter Plan of Treatment Upcoming Encounters Date Type Department Care Team (Late st Contact Info) Description 07/14/2025 1:30 PM ELECTRICIAN RESEARCH Office Visit [facility] - Neurology - [place] #[address] [place] [address] Aria Delong, SLASHER TENDER, SHOE WORKER #[address] [place] [address] documented as of this encounter Visit Diagnoses Diagnosis Cervical radiculopathy Brachial neuritis or radiculitis nos documented in this encounter Additional Health Concerns Infection Onset Date Last Indicated Resolved Time COVID - 19 Confirmed 05/31/2022 05/31/2022 023 12:16 AM ELECTRICIAN RESEARCH Respiratory Rule Out - RPA 02/26/2023 02/26/2023 0 02/26/2023 11:31 AM CDT COVID - 19 02/26/2023 02/26/2023 03/08/2023 12:1 6 AM CDT documented as of this encounter Care Teams Salt Washer Harvesting Station Relationship Specialty Start Date End Date Jabier Peck MD #[address] [address] PCP - General Family Medicine 06/22/20 01/16/24 Tad Mcintosh MD [address] [place] [address] PCP - General Family Medicine 01/17/24 Srikanth Adrian MD #2 [facility] [address] [place] [address] Extract Mixer Cardiovascular Disease - Cardiology 02/02/22 08/06/24 Gloria Martinez MD #2 [facility] [address] [place] [address] Consulting Physician Urology 04/30/24 documented as of this encounter
--- OUTSIDE RECORDS SUMMARY | 2025-05-17 18:08 | XMS_ITS | Encounter Summary ---
Author Organization [facility] Address [address] [place] [address] Phone Care Team Providers Care Correction Officer Head Name Role Phone Jabier Peck MD Primary Care Provider [phone] Srikanth Adrian MD Unavailable Tad Romero MD Primary Care Provider [phone] Gloria Martinez MD Unavailable [phone] Reason for Visit * Reason Onset Date Comments Medication Refill 10/27/2021 Encounter Details Date Type Department Care Team (Late st Contact Info) Description 10/27/2021 Refill [facility] Family [facility] #2 [place] [address] Jabier Peck MD #[address] [address] Medication Refill Social History Tobacco Use Types [...] CDT Gender Identity Male 05/03/2023 12:44 PM LINING BASTER Sexual Orientation Lesbian or Wolff 05/03/2023 12 :44 PM LINING BASTER documented as of this encounter Miscellaneous [...] 11/16/20 Office Visit Kishore Prieto APRN, [facility] [...] st Contact Info) Description 07/14/2025 1:30 PM LINING BASTER [facility] [place] #[address] [place] [address] Aria Delong, ASSEMBLER INSULATOR, CRATER AND PACKER #[address] [place] [address] documented as of this encounter Visit Diagnoses Not on filedocumented in this encounter Additional Health Concerns Infection Onset Date Last Indicated Resolved Time COVID - 19 Confirmed 05/31/2022 05/31/2022 023 12:16 AM LINING BASTER Respiratory Rule Out - RPA 02/26/2023 02/26/2023 0 02/26/2023 11:31 AM CDT COVID - 19 02/26/2023 02/26/2023 03/08/2023 12:1 6 AM CDT documented as of this encounter Care Teams Correction Officer Head Relationship Specialty Start Date End Date Jabier Peck MD #2 [facility] [address] [place] [address] PCP - General Family Medicine 06/22/20 01/16/24 Tad Mcintosh MD [address] [place] [address] PCP - General Family Medicine 01/17/24 Srikanth Adrian MD #2 [facility] [address] [place] [address] Switchboard Operator Supervisor Cardiovascular Disease - Cardiology 02/02/22 08/06/24 Gloria Martinez MD #2 [facility] [address] [place] [address] Consulting Physician Urology 04/30/24 documented as of this encounter
--- OUTSIDE RECORDS SUMMARY | 2025-05-17 18:08 | XMS_ITS | Encounter Summary ---
Author Organization [facility] Address [address] [place] [address] Phone Care Team Providers Care Mixed Crop Farmer Name Role Phone Jabier Peck MD Primary Care Provider [phone] Srikanth Adrian MD Unavailable Tad Romero MD Primary Care Provider [phone] Gloria Martinez MD Unavailable [phone] Reason for Visit * Reason Comments Medication Refill Encounter Details Date Type Department Care Team (Late st Contact Info) Description 10/21/2021 Refill [facility] Family [facility] #2 [place] [address] Jabier Peck MD #[address] [address] Medication Refill Social History Tobacco Use Types [...] CDT Gender Identity Male 05/03/2023 12:44 PM ADVERTISING WRITER Sexual Orientation Lesbian or Wolff 05/03/2023 12 :44 PM ADVERTISING WRITER documented as of this encounter Miscellaneous [...] 11/16/20 Office Visit Kishore Prieto APRN, RICHARD [facility] [place] Showing recent visits within past 365 days and meeting all other requirements Future Appointments Date Type Provider Dept 10/31/21 Appointment Jabier Peck MD [facility] Showing future appointments within next 90 days and meeting all other requirements documented in this encounter Plan of Treatment Upcoming Encounters Date Type Department Care Team (Late st Contact Info) Description 07/14/2025 1:30 PM ADVERTISING WRITER [facility] [place] [address] [place] [address] Aria Delong APRN, TRAFFIC DIRECTOR #[address] [place] [address] documented as of this encounter Visit Diagnoses Diagnosis Cervical radiculopathy Brachial neuritis or radiculitis nos documented in this encounter Additional Health Concerns Infection Onset Date Last Indicated Resolved Time COVID - 19 Confirmed 05/31/2022 05/31/2022 023 12:16 AM ADVERTISING WRITER Respiratory Rule Out - RPA 02/26/2023 02/26/2023 0 02/26/2023 11:31 AM CDT COVID - 19 02/26/2023 02/26/2023 03/08/2023 12:1 6 AM CDT documented as of this encounter Care Teams Mixed Crop Farmer Relationship Specialty Start Date End Date Jabier Peck MD #2 [facility] [address] [place] [address] PCP - General Family Medicine 06/22/20 01/16/24 Tad Mcintosh MD [address] [place] [address] PCP - General Family Medicine 01/17/24 Srikanth Adrian MD #2 [facility] [address] [place] [address] Crop Duster Helper Cardiovascular Disease - Cardiology 02/02/22 08/06/24 Gloria Martinez MD #2 [facility] [address] [place] [address] Consulting Physician Urology 04/30/24 documented as of this encounter
--- OUTSIDE RECORDS SUMMARY | 2025-05-17 18:09 | XMS_ITS | Encounter Summary ---
Author Organization [facility] Address [address] [place] [address] Phone Care Team Providers Care Adjunct Physical Education Instructor Name Role Phone Jabier Peck MD Primary Care Provider [phone] Srikanth Adrian MD Unavailable Tad Romero MD Primary Care Provider [phone] Gloria Martinez MD Unavailable [phone] Reason for Visit * Reason Comments Medication Refill Encounter Details Date Type Department Care Team (Late st Contact Info) Description 06/12/2022 Refill [facility] - Family Medicine [facility] #2 [place] [address] Jabier Peck MD #[address] [address] Medication Refill Social History Tobacco Use Types [...] Gender Identity Male 05/03/2023 12:44 PM FRONT DESK AUXILIARY Sexual Orientation Lesbian or Wolff 05/03/2023 12 :44 PM FRONT DESK AUXILIARY COVID-19 Exposure Response Date Recorded In the last 10 days, have yo u been in contact with someone who was confirmed or suspected to have Coronavirus/COVID-19? Yes 05/31/2022 2:12 PM FRONT DESK AUXILIARY documented as of this encounter Miscellaneous Notes * Telephone Encounter - Anjali Hartley RN - 06/13/2022 11:16 AM FRONT DESK AUXILIARY Medication warning. Per nursing clinical judgement, provider [...] Appointments Date Type Provider Dept 06/14/22 Appointment Kihsore Prieto APRN, RICHARD [facility] Showing future appointments within next 90 days and meeting all other requirements T DESK AUXILIARY documented in this encounter Plan of Treatment Upcoming Encounters Date Type Department Care Team (Late st Contact Info) Description 07/14/2025 1:30 PM FRONT DESK AUXILIARY Office Visit [facility] - Neurology - [place] #[address] [place] [address] Aria Delong, CONCERT PROMOTER, SAWMILL PRODUCTION WORKER #2 [facility] [place] [address] documented as of this encounter Visit Diagnoses Not on filedocumented in this encounter Additional Health Concerns Infection Onset Date Last Indicated Resolved Time COVID - 19 Confirmed 05/31/2022 05/31/2022 023 12:16 AM FRONT DESK AUXILIARY Respiratory Rule Out - RPA 02/26/2023 02/26/2023 0 02/26/2023 11:31 AM CDT COVID - 19 02/26/2023 02/26/2023 03/08/2023 12:1 6 AM CDT documented as of this encounter Care Teams Adjunct Physical Education Instructor Relationship Specialty Start Date End Date Jabier Peck MD #2 [facility] [address] [place] [address] PCP - General Family Medicine 06/22/20 01/16/24 Tad Mcintosh MD [address] [place] [address] PCP - General Family Medicine 01/17/24 Srikanth Adrian MD #2 [facility] [address] [place] [address] Tax Compliance Manager Cardiovascular Disease - Cardiology 02/02/22 08/06/24 Gloria Martinez MD #2 [facility] [address] [place] [address] Consulting Physician Urology 04/30/24 documented as of this encounter
--- OUTSIDE RECORDS SUMMARY | 2025-05-17 18:09 | XMS_ITS | Encounter Summary ---
Author Organization [facility] Address [address] [place] [address] Phone Care Team Providers Care Fuel Handler Name Role Phone Jabier Peck MD Primary Care Provider [phone] Srikanth Adrian MD Unavailable Tad Romero MD Primary Care Provider [phone] Gloria Martinez MD Unavailable [phone] Encounter Details Date Type Department Care Team (Late st Contact Info) Description 01/04/2023 Telephone [facility] Medical/Surgical 3 Surge Waiver [address] [place] [address] Jabier Peck MD #[address] [address] Social History Tobacco Use Types Packs/Day Years [...] CDT Gender Identity Male 05/03/2023 12:44 PM PILING CUTTER Sexual Orientation Lesbian or Wolff 05/03/2023 12 :44 PM PILING CUTTER documented as of this encounter Miscellaneous Notes * Telephone Encounter - Jabier Peck MD - 01/14/2023 1:40 PM CDT Thanks for the update! documented in this encounter Plan of Treatment Upcoming Encounters Date Type Department Care Team (Late st Contact Info) Description 07/14/2025 1:30 PM PILING CUTTER Office Visit [facility] - Neurology - [place] [address] [place] [address] Aria Delong APRN, ASSEMBLER PIANO #2 [place] [address] documented as of this encounter Visit Diagnoses Not on filedocumented in this encounter Additional Health Concerns Infection Onset Date Last Indicated Resolved Time Respiratory Rule Out - RPA 02/26/2023 02/26/2023 0 02/26/2023 11:31 AM CDT COVID - 19 02/26/2023 02/26/2023 03/08/2023 12:1 6 AM CDT documented as of this encounter Care Teams Fuel Handler Relationship Specialty Start Date End Date Jabier Peck MD #[address] [address] PCP - General Family Medicine 06/22/20 01/16/24 Tad Mcintosh MD [address] [place] [address] PCP - General Family Medicine 01/17/24 Srikanth Adrian MD #[address] [address] Development Lead Cardiovascular Disease - Cardiology 02/02/22 08/06/24 Gloria Martinez MD #2 [facility] [address] [address] Consulting Physician Urology 04/30/24 documented as of this encounter
--- OUTSIDE RECORDS SUMMARY | 2025-05-17 18:09 | XMS_ITS | Encounter Summary ---
Author Organization [facility] Address [address] [place] [address] Phone Care Team Providers Care Frame And Scrap Crusher Name Role Phone Srikanth Adrian MD Unavailable Tad Romero MD Primary Care Provider [phone] Gloria Martinez MD Unavailable [phone] Reason for Visit * Reason Comments Medication Refill Encounter Details Date Type Department Care Team (Late st Contact Info) Description 07/26/2024 [facility]ill [facility] #2 [place] [id number] Jabier Peck MD #[address] [address] Medication Refill Social History Tobacco Use Types [...] Gender Identity Male 05/03/2023 12:44 PM GAS MAIN FITTER Sexual Orientation Lesbian or Wolff 05/03/2023 12 :44 PM GAS MAIN FITTER documented as of this encounter Miscellaneous Notes * Telephone Encounter - Sheyla Burgess RN - 07/28/2024 10:39 AM GAS MAIN FITTER Changed PCPs to Tad Mcintosh MD MAIN FITTER * Telephone Encounter - Sheyla Burgess RN - 07/28/2024 10:39 AM GAS MAIN FITTER Now seeing Tad Mcintosh MD MAIN FITTER * Telephone Encounter - Sheyla Burgess RN - 07/28/2024 10:38 AM GAS MAIN FITTER Needs OV. Last seen April 2023. MAIN FITTER documented in this encounter Plan of Treatment Upcoming Encounters Date Type Department Care Team (Late st Contact Info) Description 07/14/2025 1:30 PM GAS MAIN FITTER Office Visit [facility] - Neurology [facility] #2 [place] [address] Aria Delong APRN, CURB AND GUTTER LABORER #2 [place] [address] documented as of this encounter Visit Diagnoses Not on filedocumented in this encounter Care Teams Frame And Scrap Crusher Relationship Specialty Start Date End Date Tad Mcintosh MD [address] [place] [address] PCP - General Family Medicine 01/17/24 Srikanth Adrian MD Tube Inspector Cardiovascular Disease - Cardiology 02/02/22 08/06/24 Gloria Martinez MD #2 [place] [address] Consulting Physician Urology 04/30/24 documented as of this encounter
--- OUTSIDE RECORDS SUMMARY | 2025-05-17 18:09 | XMS_ITS | Encounter Summary ---
Author Organization [facility] Address [address] [place] [address] Phone Care Team Providers Care Director Speech Language Name Role Phone Jabier Peck MD Primary Care Provider + [phone] Srikanth Adrian MD Unavailable Tad Romero MD Primary Care Provider [phone] Gloria Martinez MD Unavailable [phone] Reason for Visit * Reason Comments Medication Refill Encounter Details Date Type Department Care Team (Late st Contact Info) Description 03/29/2022 Refill [facility] - Family Medicine [facility] #2 [place] [address] Jabier Peck MD #[address] [address] Medication Refill Social History Tobacco Use Types [...] CDT Gender Identity Male 05/03/2023 12:44 PM IMMIGRATION CASE MANAGER Sexual Orientation Lesbian or Wolff 05/03/2023 12 :44 PM IMMIGRATION CASE MANAGER COVID-19 Exposure Response Date Recorded In [...] st Contact Info) Description 07/14/2025 1:30 PM IMMIGRATION CASE MANAGER Office Visit [facility] - Neurology - [place] [address] [place] [address] Aria Delong, PONDMAN, ASSISTANT ACTIVITIES DIRECTOR #2 [place] [address] documented as of this encounter Visit Diagnoses Diagnosis Cervical radiculopathy Brachial neuritis or radiculitis nos documented in this encounter Additional Health Concerns Infection Onset Date Last Indicated Resolved Time COVID - 19 Confirmed 05/31/2022 05/31/2022 023 12:16 AM IMMIGRATION CASE MANAGER Respiratory Rule Out - RPA 02/26/2023 02/26/2023 0 02/26/2023 11:31 AM CDT COVID - 19 02/26/2023 02/26/2023 03/08/2023 12:1 6 AM CDT documented as of this encounter Care Teams Director Speech Language Relationship Specialty Start Date End Date Jabier Peck MD #2 [facility] [address] [place] [address] PCP - General Family Medicine 06/22/20 01/16/24 Tad Mcintosh MD [address] [place] [address] PCP - General Family Medicine 01/17/24 Srikanth Adrian MD #2 [facility] [address] [place] [address] Town Justice Cardiovascular Disease - Cardiology 02/02/22 08/06/24 Gloria Martinez MD #2 [facility] [address] [place] [address] Consulting Physician Urology 04/30/24 documented as of this encounter
--- OUTSIDE RECORDS SUMMARY | 2025-05-17 18:09 | XMS_ITS | Encounter Summary ---
Author Organization [facility] Address [address] [place] [address] Phone Care Team Providers Care Needle Board Repairer Name Role Phone Jabier Peck MD Primary Care Provider [phone] Srikanth Adrian MD Unavailable Tad Romero MD Primary Care Provider [phone] Gloria Martinez MD Unavailable [phone] Reason for Visit * Reason Comments Medication Refill Encounter Details Date Type Department Care Team (Late st Contact Info) Description 08/01/2023 Refill [facility] - Family Medicine [facility] #2 [place] [phone] Jabier Peck MD #[address] [address] Medication Refill Social History Tobacco Use Types [...] Gender Identity Male 05/03/2023 12:44 PM GLASS BEAD MAKER Sexual Orientation Lesbian or Wolff 05/03/2023 12 :44 PM GLASS BEAD MAKER documented as of this encounter Miscellaneous [...] 05/11/23 Office Visit Piper Toro APRN, [facility] [place] 05/03/23 Office Visit Piper Toro APRN, R[facility] [place] 02/26/23 Office Visit Kishore Prieto APRN, RICHARD [facility] [place] 12/18/22 Telemedicine Jabier Peck MD [facility] [place] 11/30/22 Telemedicine Kishore Prieto APRN, RICH[facility] [place] 08/21/22 Office Visit Jabier Peck MD [facility] [place] Showing recent visits within past 365 days and meeting all other requirements Future Appointments No visits were found meeting these conditions. Showing future appointments within next 90 days and meeting all other requirements Passed - Active short-acting beta agonist prescription S BEAD MAKER documented in this encounter Plan of Treatment Upcoming Encounters Date Type Department Care Team (Late st Contact Info) Description 07/14/2025 1:30 PM GLASS BEAD MAKER Office Visit [facility] - Neurology - [place] [address]2 [place] [address] Aria Delong, SWEET DOUGH MIXER, CORPORATE TRAVEL EXPERT [address] [facility] [place] [address] documented as of this encounter Visit Diagnoses Not on filedocumented in this encounter Care Teams Needle Board Repairer Relationship Specialty Start Date End Date Jabier Peck MD [facility]2 [facility] [address] [address] PCP - General Family Medicine 06/22/20 01/16/24 Tad Mcintosh MD [address] [place] [address] PCP - General Family Medicine 01/17/24 Srikanth Adrian MD #[address] [address] Cartoon Animator Cardiovascular Disease - Cardiology 02/02/22 08/06/24 Gloria Martinez MD #2 [facility] [address] [address] Consulting Physician Urology 04/30/24 documented as of this encounter
--- OUTSIDE RECORDS SUMMARY | 2025-05-17 18:09 | XMS_ITS | Encounter Summary ---
Author Organization [facility] Address [address] [place] [address] Phone Care Team Providers Care Paper Cap Machine Operator Name Role Phone Jabier Peck MD Primary Care Provider [phone] Srikanth Adrian MD Unavailable Tad Romero MD Primary Care Provider [phone] Gloria Martinez MD Unavailable [phone] Reason for Visit * Reason Onset Date Comments Medication Refill 03/23/2021 Encounter Details Date Type Department Care Team (Late st Contact Info) Description 03/23/2021 Refill [facility] - Family [facility] #2 [place] [address] Jabier Peck MD #[address] [address] Medication Refill Social History Tobacco Use Types [...] CDT Gender Identity Male 05/03/2023 12:44 PM ELECTRONIC PARTS SALESPERSON Sexual Orientation Lesbian or Wolff 05/03/2023 12 :44 PM ELECTRONIC PARTS SALESPERSON COVID-19 Exposure Response Date Recorded In [...] Outpatient Visits 1 week ago Cervical radiculopathy [facility] - Kishore Alonso APN, FOUNTAIN WAITRESS/WAITER 4 months ago Dermatitis [facility] - Kishore Alonso APN, FOUNTAIN WAITRESS/WAITER 5 months ago Diet-controlled diabetes mellitus (HCC) [facility] - Jabier Aldridge MD 7 months ago Thrombophilia (HCC) [facility] - Kishore Alonso APN, FOUNTAIN WAITRESS/WAITER 7 months ago Obstructive sleep apnea syndrome [facility] - [place] Morgan APN, FOUNTAIN WAITRESS/WAITER Upcoming Appointments Future Appointments Tomorrow [facility] RESP ROOM1 [facility] Respiratory Therapy, [facility] In 1 week Sofy Bowen, PT [facility] Rehab at [facility] In 2 weeks Jabier Peck MD [facility] Family Medicine [facility] In 1 month Aria Delong APN, OVERLOCK OPERATOR [facility] Neurology [facility] In 5 months Jt Morillo MD [facility] Oncology Services, [facility] CORN DETASSELER MACHINE OPERATOR - Recent and Past Visits Recent Visits Date Type Provider Dept 03/16/21 Office Visit Kishore Prieto APN, RICHARD [facility] 11/16/20 Office Visit Kishore Prieto APN, RICHARD [...] Provider Dept 04/08/21 Appointment Jabier Peck MD [facility] [place] Showing future appointments within next [...] st Contact Info) Description 07/14/2025 1:30 PM ELECTRONIC PARTS SALESPERSON Office Visit [facility] - Neurology - [place] [address] [place] [address] Aria Delong APRN, OVERLOCK OPERATOR #[address] [place] [address] documented as of this encounter Visit Diagnoses Not on filedocumented in this encounter Additional Health Concerns Infection Onset Date Last Indicated Resolved Time COVID - 19 Confirmed 05/31/2022 05/31/2022 023 12:16 AM ELECTRONIC PARTS SALESPERSON Respiratory Rule Out - RPA 02/26/2023 02/26/2023 0 02/26/2023 11:31 AM CDT COVID - 19 02/26/2023 02/26/2023 03/08/2023 12:1 6 AM CDT documented as of this encounter Care Teams Paper Cap Machine Operator Relationship Specialty Start Date End Date Jabier Peck MD #2 [facility] [address] [place] [address] PCP - General Family Medicine 06/22/20 01/16/24 Tad Mcintosh MD [address] [place] [address] PCP - General Family Medicine 01/17/24 Srikanth Adrian MD #2 [facility] [address] [place] [address] Groundwater Monitoring Technician Cardiovascular Disease - Cardiology 02/02/22 08/06/24 Gloria Martinez MD #2 [facility] [address] [place] [address] Consulting Physician Urology 04/30/24 documented as of this encounter
--- OUTSIDE RECORDS SUMMARY | 2025-05-17 18:09 | XMS_ITS | Encounter Summary ---
Author Organization [facility] Address [address] [place] [address] Phone Care Team Providers Care Vascular Nurse Name Role Phone Jabier Peck MD Primary Care Provider [phone] Srikanth Adrian MD Unavailable Tad Romero MD Primary Care Provider [phone] Gloria Martinez MD Unavailable [phone] Reason for Visit * Reason Comments Medication Refill Encounter Details Date Type Department Care Team (Late st Contact Info) Description 06/21/2022 Refill [facility] Family Medicine [facility] #2 [place] [address] Jabier Peck MD #[address] [address] Medication Refill Social History Tobacco Use Types [...] Gender Identity Male 05/03/2023 12:44 PM WEB CONTENT & SOCIAL MEDIA MANAGER Sexual Orientation Lesbian or Wolff 05/03/2023 12 :44 PM WEB CONTENT & SOCIAL MEDIA MANAGER COVID-19 Exposure Response Date Recorded In the last 10 days, have tabby u been in contact with someone who was confirmed or suspected to have Coronavirus/COVID-19? Yes 05/31/2022 2:12 PM WEB CONTENT & SOCIAL MEDIA MANAGER documented as of this encounter Miscellaneous Notes * Telephone Encounter - Libertad Shearer, RN - 06/21/2022 1:33 PM CST Name from pharmacy: [facility] CAP[facility] Will file in chart as: [facility] M[facility] Capsule The original prescription was discontinued on 02/24/2022 by Kishore Prieto APRN, FIBERGLASSER for thefollowing reason: Med List Clean Up. Renewing this prescription may not be appropriate. CONTENT & SOCIAL MEDIA MANAGER documented in this encounter Plan of Treatment Upcoming Encounters Date Type Department Care Team (Late st Contact Info) Description 07/14/2025 1:30 PM WEB CONTENT & SOCIAL MEDIA MANAGER Office Visit [facility] - Neurology [facility] #2 [place] [address] Aria Delong APRN, SUPERVISOR CALIBRATION #2 [place] [address] documented as of this encounter Visit Diagnoses Not on filedocumented in this encounter Additional Health Concerns Infection Onset Date Last Indicated Resolved Time Respiratory Rule Out - RPA 02/26/2023 02/26/2023 0 02/26/2023 11:31 AM CDT COVID - 19 02/26/2023 02/26/2023 03/08/2023 12:1 6 AM CDT documented as of this encounter Care Teams Vascular Nurse Relationship Specialty Start Date End Date Jabier Peck MD #[address] [address] PCP - General Family Medicine 06/22/20 01/16/24 Tad Mcintosh MD [address] [place] [address] PCP - General Family Medicine 01/17/24 Srikanth Adrian MD #2 [facility] [address] [place] [address] Skid Strapper Cardiovascular Disease - Cardiology 02/02/22 08/06/24 Gloria Martniez MD #2 [facility] [address] [place] [address] Consulting Physician Urology 04/30/24 documented as of this encounter
--- OUTSIDE RECORDS SUMMARY | 2025-05-17 18:09 | XMS_ITS | Encounter Summary ---
Author Organization [facility] Address [address] [place] [address] Phone Care Team Providers Care Packager And Strapper Name Role Phone Jabier Peck MD Primary Care Provider [phone] Srikanth Adrian MD Unavailable Tad Romero MD Primary Care Provider [phone] Gloria Martinez MD Unavailable [phone] Reason for Visit * Reason Comments Medication Refill Encounter Details Date Type Department Care Team (Late st Contact Info) Description 12/07/2023 Refill [facility] Family Medicine [facility] #2 [place] [address] Jabier Peck MD #[address] [address] Medication Refill Social History Tobacco Use Types [...] Gender Identity Male 05/03/2023 12:44 PM ACCOUNTING MANAGER ASSISTANT CONTROLLER Sexual Orientation Lesbian or Wolff 05/03/2023 12 :44 PM ACCOUNTING MANAGER ASSISTANT CONTROLLER documented as of this encounter Miscellaneous Notes [...] 05/03/23 Office Visit Piper Toro APRN, [place] [facility] [place] 02/26/23 Office Visit Kishore Prieto APRN, RICH[place] [facility] [place] 12/18/22 Telemedicine Jabier Peck MD [facility] Showing recent visits within past 365 days and meeting all other requirements Future Appointments No visits were found meeting these conditions. Showing future appointments within next 90 days and meeting all other requirements documented in this encounter Plan of Treatment Upcoming Encounters Date Type Department Care Team (Late st Contact Info) Description 07/14/2025 1:30 PM ACCOUNTING MANAGER ASSISTANT CONTROLLER [facility] - [place] #[address] [place] [address] Aria Delong APRN, GLASS SAGGER #2 [place] [address] documented as of this encounter Visit Diagnoses Not on filedocumented in this encounter Care Teams Packager And Strapper Relationship Specialty Start Date End Date Jabier Peck MD #[address] [facility] [address] [place] [address] PCP - General Family Medicine 06/22/20 01/16/24 Tad Mcintosh MD [address] [place] [address] PCP - General Family Medicine 01/17/24 Srikanth Adrian MD #[address] [facility] [address] [place] [address] Auto Research Engineer Cardiovascular Disease - Cardiology 02/02/22 08/06/24 Gloria Martinez MD #2 [facility] [address] [place] [address] Consulting Physician Urology 04/30/24 documented as of this encounter
--- OUTSIDE RECORDS SUMMARY | 2025-05-17 18:09 | XMS_ITS | Encounter Summary ---
Author Organization [facility] Address [address] [place] [address] Phone Care Team Providers Care Poultry Killer Name Role Phone Jabier Peck MD Primary Care Provider [phone] Srikanth Adrian MD Unavailable Tad Romero MD Primary Care Provider [phone] Gloria Martinez MD Unavailable [phone] Reason for Visit * Reason Comments Medication Refill Encounter Details Date Type Department Care Team (Late st Contact Info) Description 01/06/2021 Refill [facility] - Family Medicine - [place] #2 [place] [address] Jt Morillo MD [address] [place] [address] Medication Refill Social History Tobacco Use Types [...] CDT Gender Identity Male 05/03/2023 12:44 PM SHOE CUTTER Sexual Orientation Lesbian or Wolff 05/03/2023 12 :44 PM SHOE CUTTER documented as of this encounter Miscellaneous Notes * Telephone Encounter - Aisha Escamilla RN - 01/06/2021 11:22 AM CDT Refilled Eliquis per last F/U note. documented in this encounter Plan of Treatment Upcoming Encounters Date Type Department Care Team (Late st Contact Info) Description 07/14/2025 1:30 PM SHOE CUTTER Office Visit [facility] - Neurology - [place] #2 [place] [address] Aria Delong APRN, UG DESIGNER #2 [place] [address] documented as of this encounter Visit Diagnoses Diagnosis History of thrombophilia associated with MTHFR mutation documented in this encounter Additional Health Concerns Infection Onset Date Last Indicated Resolved Time COVID - 19 Confirmed 05/31/2022 05/31/2022 023 12:16 AM SHOE CUTTER Respiratory Rule Out - RPA 02/26/2023 02/26/2023 0 02/26/2023 11:31 AM CDT COVID - 19 02/26/2023 02/26/2023 03/08/2023 12:1 6 AM CDT documented as of this encounter Care Teams Poultry Killer Relationship Specialty Start Date End Date Jabier Peck MD #[address] [address] PCP - General Family Medicine 06/22/20 01/16/24 Tad Mcintosh MD [address] [place] [address] PCP - General Family Medicine 01/17/24 Srikanth Adrian MD #[address] [place] [address] Substation Operator Automatic Cardiovascular Disease - Cardiology 02/02/22 08/06/24 Gloria Martinez MD #2 [facility] [address] [place] [address] Consulting Physician Urology 04/30/24 documented as of this encounter
--- OUTSIDE RECORDS SUMMARY | 2025-05-17 18:09 | XMS_ITS | Encounter Summary ---
Author Organization [facility] Address [address] [place] [address] Phone Care Team Providers Care Radiological Health Specialist Name Role Phone Srikanth Adrian MD Unavailable Tad Romero MD Primary Care Provider [phone] Gloria Martinez MD Unavailable [phone] Reason for Visit * Reason Comments Medication Refill Encounter Details Date Type Department Care Team (Late st Contact Info) Description 03/15/2024 Refill [facility] Family Medicine [facility] #2 [place] [address] Kishore Prieto APRN, MAGISTERIAL DISTRICT JUDGE #[address] [address] Medication Refill Social History Tobacco Use Types [...] CDT Gender Identity Male 05/03/2023 12:44 PM CONCRETE CURER Sexual Orientation Lesbian or Wolff 05/03/2023 12 :44 PM CONCRETE CURER documented as of this encounter Miscellaneous Notes * Telephone Encounter - Francine Soto RN - 03/17/2024 12:59 PM CDT PCP Tad Mcintosh MD documented in this encounter Plan of Treatment Upcoming Encounters Date Type Department Care Team (Late st Contact Info) Description 07/14/2025 1:30 PM CONCRETE CURER Office Visit [facility] - Neurology - [place] #2 [place] [address] Aria Delong APRN, AIR EXPORT AGENT #2 [place] [address] documented as of this encounter Visit Diagnoses Not on filedocumented in this encounter Care Teams Radiological Health Specialist Relationship Specialty Start Date End Date Tad Mcintosh MD [address] [place] [address] PCP - General Family Medicine 01/17/24 Srikanth Adrian MD Certified Ophthalmic Surgical Assistant Cardiovascular Disease - Cardiology 02/02/22 08/06/24 Gloria Martinez MD #[address] [address] Consulting Physician Urology 04/30/24 documented as of this encounter
--- OUTSIDE RECORDS SUMMARY | 2025-05-17 18:09 | XMS_ITS | Encounter Summary ---
Author Organization [facility] Address [address] [place] [address] Phone Care Team Providers Care Vocational Rehabilitation Specialist Name Role Phone Jabier Peck MD Primary Care Provider [phone] Srikanth Adrian MD Unavailable Tad Romero MD Primary Care Provider [phone] Gloria Martinez MD Unavailable [phone] Reason for Visit * Reason Comments Medication Refill Encounter Details Date Type Department Care Team (Late st Contact Info) Description 03/19/2023 [facility]ill [facility] #2 [place] [id number] Jabier Peck MD #[address] [address] Medication Refill Social History Tobacco Use Types [...] CDT Gender Identity Male 05/03/2023 12:44 PM MEDICAID PLAN COMPLIANCE DIRECTOR Sexual Orientation Lesbian or Wolff 05/03/2023 12 :44 PM MEDICAID PLAN COMPLIANCE DIRECTOR COVID-19 Exposure Response Date Recorded In [...] [facility] 05/03/22 Telemedicine Jabier Peck MD [facility] [place] Showing recent [...] st Contact Info) Description 07/14/2025 1:30 PM MEDICAID PLAN COMPLIANCE DIRECTOR Office Visit [facility] - Neurology [facility] #[address] [place] [address] Aria Delong, WASTE DISPOSAL LEAKAGE TESTER, DIRECTOR OF CONSERVATION #2 [place] [address] documented as of this encounter Visit Diagnoses Not on filedocumented in this encounter Care Teams Vocational Rehabilitation Specialist Relationship Specialty Start Date End Date Jabier Peck MD #2 [facility] [address] [place] [address] PCP - General Family Medicine 06/22/20 01/16/24 Tad Mcintosh MD [address] [place] [address] PCP - General Family Medicine 01/17/24 Srikanth Adrian MD #2 [facility] [address] [place] [address] Classification And Treatment Director Cardiovascular Disease - Cardiology 02/02/22 08/06/24 Gloria Martinez MD #2 [facility] [address] [place] [address] Consulting Physician Urology 04/30/24 documented as of this encounter
--- OUTSIDE RECORDS SUMMARY | 2025-05-17 18:09 | XMS_ITS | Encounter Summary ---
Author Organization [facility] Address [address] [place] [address] Phone Care Team Providers Care Graphics Manager Name Role Phone Jabier Peck MD Primary Care Provider [phone] Srikanth Adrian MD Unavailable Tad Romero MD Primary Care Provider [phone] Gloria Martinez MD Unavailable [phone] Reason for Visit * Reason Comments Medication Refill Encounter Details Date Type Department Care Team (Late st Contact Info) Description 04/11/2021 Refill [facility] Family Medicine [facility] #2 [place] [address] Kishore Prieto APRN, BRANDS EDITOR #[address] [address] Medication Refill Social History Tobacco Use Types [...] Gender Identity Male 05/03/2023 12:44 PM WELDING OPERATOR Sexual Orientation Lesbian or Wolff 05/03/2023 12 :44 PM WELDING OPERATOR COVID-19 Exposure Response Date Recorded In the last month, have you been in contact with someone who was confirmed or suspected to have Coronavirus / COVID-19? No / Unsure 04/14/2021 12:48 PM CDT documented as of this encounter Miscellaneous Notes * Telephone Encounter - Sabina Holly RN - 04/12/2021 12:20 PM CDT Tonny calling in from [facility]. He is requesting to find out [...] st Contact Info) Description 07/14/2025 1:30 PM WELDING OPERATOR Office Visit [facility] - Neurology [facility] #2 [place] [address] Aria Delong APRN, PROGRAM DIRECTOR SCOUTING #2 [place] [address] documented as of this encounter Visit Diagnoses Diagnosis Cervical radiculopathy Brachial neuritis or radiculitis nos documented in this encounter Additional Health Concerns Infection Onset Date Last Indicated Resolved Time COVID - 19 Confirmed 05/31/2022 05/31/2022 023 12:16 AM WELDING OPERATOR Respiratory Rule Out - RPA 02/26/2023 02/26/2023 0 02/26/2023 11:31 AM CDT COVID - 19 02/26/2023 02/26/2023 03/08/2023 12:1 6 AM CDT documented as of this encounter Care Teams Graphics Manager Relationship Specialty Start Date End Date Jabier Peck MD #2 [facility] [address] [place] [address] PCP - General Family Medicine 06/22/20 01/16/24 Tad Mcintosh MD [address] [place] [address] PCP - General Family Medicine 01/17/24 Srikanth Adrian MD #2 [facility] [address] [place] [address] Hi Ranger Operator Cardiovascular Disease - Cardiology 02/02/22 08/06/24 Gloria Martinez MD #2 [facility] [address] [place] [address] Consulting Physician Urology 04/30/24 documented as of this encounter
--- OUTSIDE RECORDS SUMMARY | 2025-05-17 18:09 | XMS_ITS ---
Author Name ABBY BUTLER Address [address] [place] [address] Phone [facility] Address [address] [place] [address] Phone Care Team Providers Care Bridge Club Manager Name Role Phone ABBY BUTLER Unavailable [phone] ALLERGIES, ADVERSE REACTIONS AND ALERTS Allergy Name Allergy Date Allergy Status Allergy Severity Allergy Reaction NO KNOWN DRUG ALLERGIES PROBLEMS Problem Code Problem Description Problem Status Problem Da te Problem End Date [id number]-Irspxrbysll tract congestion and cough Respiratory tract congestion and cough Current 04/28/2022 [id number]-Slvzyec disorder Bipolar disorder Chronic 04/28/2022 [id number]-Hpfbfbhcf emphysema Pulmonary emphysema Chronic 04/28/2022 [id number]-Rtbpjy disease Kidney disease Chronic 04/28/2022 36969606-Mzbisgih mellitus Diabetes mellitus Chronic 04/28/2022 [id number]-Cbwqfs Asthma Chronic 04/28/2022 [id number]-Qzdpchsjcku sleep apnea syndrome Obstructive sleep apnea syndrome [...] ever smoked Sex: Male CARE TEAM INFORMATION Bridge Club Manager Provider ID Role Location Phone ABBY BUTLER [id number] NURSE PRACTITIONER [address] [place] [address] INSURANCE PROVIDERS Payer Name Policy type / Coverage type Covered constitution party ID Policy [place] MED[place] Medicaid [id number] SELF [facility] MEDICARE ADVANTAGE Private Health Insurance [id number] SELF
--- OUTSIDE RECORDS SUMMARY | 2025-05-17 18:09 | XMS_ITS | Encounter Summary ---
Author Organization [facility] Address [address] [place] [address] Phone Care Team Providers Care Electrical Timing Device Calibrator Name Role Phone Srikanth Adrian MD Unavailable Tad Romero MD Primary Care Provider [phone] Gloria Martinez MD Unavailable [phone] Reason for Visit * Reason Comments Medication Refill Encounter Details Date Type Department Care Team (Late st Contact Info) Description 05/28/2024 Refill [facility] Family Medicine [facility] #[address] [place] [address] Jabier Peck MD #[address] [address] Medication Refill Social History Tobacco Use Types [...] CDT Gender Identity Male 05/03/2023 12:44 PM MELT HOUSE SUPERVISOR Sexual Orientation Lesbian or Wolff 05/03/2023 12 :44 PM MELT HOUSE SUPERVISOR documented as of this encounter Miscellaneous Notes * Telephone Encounter - Francine Soto RN - 05/28/2024 11:10 AM CST PCP: Tad Mcintosh MD HOUSE SUPERVISOR documented in this encounter Plan of Treatment Upcoming Encounters Date Type Department Care Team (Late st Contact Info) Description 07/14/2025 1:30 PM MELT HOUSE SUPERVISOR Office Visit [facility] - Neurology - [place] #[address] [place] [address] Aria Delong APRN, GLUE PLANT OPERATOR #[address] [place] [address] documented as of this encounter Visit Diagnoses Not on filedocumented in this encounter Care Teams Electrical Timing Device Calibrator Relationship Specialty Start Date End Date Tad Mcintosh MD [address] [place] [address] PCP - General Family Medicine 01/17/24 Srikanth Adrian MD Tape Cutting Machine Operator Cardiovascular Disease - Cardiology 02/02/22 08/06/24 Gloria Martinez MD #[address] [address] Consulting Physician Urology 04/30/24 documented as of this encounter
--- OUTSIDE RECORDS SUMMARY | 2025-05-17 18:09 | XMS_ITS | Encounter Summary ---
Author Organization [facility] Address [address] [place] [address] Phone Care Team Providers Care Manager Infrastructure Name Role Phone Jabier Peck MD Primary Care Provider [phone] Srikanth Adrian MD Unavailable Tad Romero MD Primary Care Provider [phone] Gloria Martinez MD Unavailable [phone] Reason for Visit * Reason Comments Medication Refill Encounter Details Date Type Department Care Team (Late st Contact Info) Description 05/11/2021 Refill [facility] #[address] [place] [address] Jabier Peck MD #[address] [address] Medication Refill Social History Tobacco Use Types [...] CDT Gender Identity Male 05/03/2023 12:44 PM BLENDER HELPER Sexual Orientation Lesbian or Wolff 05/03/2023 12 :44 PM BLENDER HELPER COVID-19 Exposure Response Date Recorded In the last month, have you been in contact with someone who was confirmed or suspected to have Coronavirus / COVID-19? No / Unsure 05/05/2021 12:33 PM BLENDER HELPER documented as of this encounter Miscellaneous [...] [place] 06/22/20 Office Visit Kishore Prieto APRN, TELEPHONE CLEANER [facility] [place] Showing recent visits within past 365 days and meeting all other requirements Future Appointments Date Type Provider Dept 08/01/21 Appointment Jabier Peck MD [facility] Showing future appointments within next 90 days and meeting all other requirements DER HELPER documented in this encounter Plan of Treatment Upcoming Encounters Date Type Department Care Team (Late st Contact Info) Description 07/14/2025 1:30 PM BLENDER HELPER Office Visit [facility] - Neurology - [place] #[address] [place] [address] Aria Delong APRN, ANVIL SEATING PRESS OPERATOR #[address] [place] [address] documented as of this encounter Visit Diagnoses Diagnosis Cervical radiculopathy Brachial neuritis or radiculitis nos documented in this encounter Additional Health Concerns Infection Onset Date Last Indicated Resolved Time COVID - 19 Confirmed 05/31/2022 05/31/2022 023 12:16 AM BLENDER HELPER Respiratory Rule Out - RPA 02/26/2023 02/26/2023 0 02/26/2023 11:31 AM CDT COVID - 19 02/26/2023 02/26/2023 03/08/2023 12:1 6 AM CDT documented as of this encounter Care Teams Manager Infrastructure Relationship Specialty Start Date End Date Jabier Peck MD #2 [facility] [address] [place] [address] PCP - General Family Medicine 06/22/20 01/16/24 Tad Mcintosh MD [address] [place] [address] PCP - General Family Medicine 01/17/24 Srikanth Adrian MD #2 [facility] [address] [place] [address] Wellness Instructor Cardiovascular Disease - Cardiology 02/02/22 08/06/24 Gloria Martinez MD #2 [facility] [address] [place] [address] Consulting Physician Urology 04/30/24 documented as of this encounter
--- OUTSIDE RECORDS SUMMARY | 2025-05-17 18:09 | XMS_ITS | Encounter Summary ---
Author Organization [facility] Address [address] [place] [address] Phone Care Team Providers Care Roastmaster Name Role Phone Jabier Peck MD Primary Care Provider [phone] Srikanth Adrian MD Unavailable Tad Romero MD Primary Care Provider [phone] Gloria Martinez MD Unavailable [phone] Reason for Visit * Reason Comments Medication Refill Encounter Details Date Type Department Care Team (Late st Contact Info) Description 05/14/2022 Refill [facility] Family Medicine [facility] #2 [place] [address] Jabier Peck MD #[address] [address] Medication Refill Social History Tobacco Use Types [...] Gender Identity Male 05/03/2023 12:44 PM CUSTOMER SERVICE REPRESENTATIVE TEACHER Sexual Orientation Lesbian or Wolff 05/03/2023 12 :44 PM CUSTOMER SERVICE REPRESENTATIVE TEACHER COVID-19 Exposure Response Date Recorded In the last 10 days, have yo u been in contact with someone who was confirmed or suspected to have Coronavirus/COVID-19? No / Unsure 05/10/2022 2:32 PM CUSTOMER SERVICE REPRESENTATIVE TEACHER documented as of this encounter Miscellaneous Notes * Telephone Encounter - Anjali Hartley RN - 05/15/2022 9:34 AM CUSTOMER SERVICE REPRESENTATIVE TEACHER PDMP 04/18/2022 #45, 15 day supply. Medication [...] APRN, RICHARD [facility] [place] 08/01/21 Office Visit Jabire Peck MD [facility] Showing recent visits within past 365 days and meeting all other requirements Future Appointments Date Type Provider Dept 06/14/22 Appointment Kishore Prieto APRN, RICHARD [facility] Showing future appointments within next 90 days and meeting all other requirements OMER SERVICE REPRESENTATIVE TEACHER documented in this encounter Plan of Treatment Upcoming Encounters Date Type Department Care Team (Late st Contact Info) Description 07/14/2025 1:30 PM CUSTOMER SERVICE REPRESENTATIVE TEACHER Office Visit [facility] - Neurology - [place] #[address] [place] [address] Aria Delong APRN, RIG OPERATOR #[address] [place] [address] documented as of this encounter Visit Diagnoses Diagnosis Cervical radiculopathy Brachial neuritis or radiculitis nos documented in this encounter Additional Health Concerns Infection Onset Date Last Indicated Resolved Time COVID - 19 Confirmed 05/31/2022 05/31/2022 023 12:16 AM CUSTOMER SERVICE REPRESENTATIVE TEACHER Respiratory Rule Out - RPA 02/26/2023 02/26/2023 0 02/26/2023 11:31 AM CDT COVID - 19 02/26/2023 02/26/2023 03/08/2023 12:1 6 AM CDT documented as of this encounter Care Teams Roastmaster Relationship Specialty Start Date End Date Jabier Peck MD #[address] [address] PCP - General Family Medicine 06/22/20 01/16/24 Tad Mcintosh MD [address] [place] [address] PCP - General Family Medicine 01/17/24 Srikanth Adrian MD #[address] [address] Glueline Worker Cardiovascular Disease - Cardiology 02/02/22 08/06/24 Gloria Martinez MD #[address] [address] Consulting Physician Urology 04/30/24 documented as of this encounter
--- OUTSIDE RECORDS SUMMARY | 2025-05-17 18:09 | XMS_ITS | Encounter Summary ---
Author Organization [facility] Address [address] [place] [address] Phone Care Team Providers Care Turner Machine Operator Name Role Phone Jabier Peck MD Primary Care Provider [phone] Srikanth Adrian MD Unavailable Tad Romero MD Primary Care Provider [phone] Gloria Martinez MD Unavailable [phone] Reason for Visit * Reason Comments Medication Refill Encounter Details Date Type Department Care Team (Late st Contact Info) Description 07/10/2022 Refill [facility] Family Medicine [facility] #2 [place] [address] Jabier Peck MD #[address] [address] Medication Refill Social History Tobacco Use Types [...] Gender Identity Male 05/03/2023 12:44 PM LINING SEWER Sexual Orientation Lesbian or Wolff 05/03/2023 12 :44 PM LINING SEWER documented as of this encounter Miscellaneous Notes * Telephone Encounter - Anjali Hartley RN - 07/10/2022 12:34 PM LINING SEWER Refill requested too soon. NG SEWER documented in this encounter Plan of Treatment Upcoming Encounters Date Type Department Care Team (Late st Contact Info) Description 07/14/2025 1:30 PM LINING SEWER Office Visit [facility] - Neurology - [place] #2 [place] [address] Arai Delong APRN, MANGLE ROLL OPERATOR #[address] [place] [address] documented as of this encounter Visit Diagnoses Not on filedocumented in this encounter Additional Health Concerns Infection Onset Date Last Indicated Resolved Time Respiratory Rule Out - RPA 02/26/2023 02/26/2023 0 02/26/2023 11:31 AM CDT COVID - 19 02/26/2023 02/26/2023 03/08/2023 12:1 6 AM CDT documented as of this encounter Care Teams Turner Machine Operator Relationship Specialty Start Date End Date Jabier Peck MD #[address] [address] PCP - General Family Medicine 06/22/20 01/16/24 Tad Mcintosh MD [address] [place] [address] PCP - General Family Medicine 01/17/24 Srikanth Adrian MD #[address] [address] Die Grinder Cardiovascular Disease - Cardiology 02/02/22 08/06/24 Gloria Martinez MD #2 [facility], [address] [address] Consulting Physician Urology 04/30/24 documented as of this encounter
--- OUTSIDE RECORDS SUMMARY | 2025-05-17 18:09 | XMS_ITS | Encounter Summary ---
Author Organization [facility] Address [address] [place] [address] Phone Care Team Providers Care Pill Maker Name Role Phone Macy Kwok MD Primary Care Provider [phone] Srikanth Adrian MD Unavailable Tad Romero MD Primary Care Provider [phone] Gloria Martinez MD Unavailable [phone] Reason for Visit * Reason Comments Medication Refill Encounter Details Date Type Department Care Team (Late st Contact Info) Description 01/23/2022 Refill [facility] Family Medicine [facility] #2 [place] [address] Macy Kwok MD #[address] [address] Medication Refill Social History Tobacco Use Types [...] Identity Male 05/03/2023 12:44 PM FRONT DESK RECEPTIONIST Sexual Orientation Lesbian or Wolff 05/03/2023 12 :44 PM FRONT DESK RECEPTIONIST COVID-19 Exposure Response Date Recorded In [...] Dept 01/31/22 Appointment Kishore Prieto APRN, RICHARD [facility] [place] Showing future appointments within next 90 [...] [place] 04/29/21 Office Visit Macy Kwok MD [facility] Showing recent visits within past 270 days and meeting all other requirements Future Appointments Date Type Provider Dept 01/31/22 Appointment Kishore Prieto APRN, RIB MATCHER AND FITTER [facility] Showing future appointments within [...] TABLET 12/27/2021 90 90 Each MACY KWOK [facility]/pharmacy #[id number] - G... documented in this encounter Plan of Treatment Upcoming Encounters Date Type Department Care Team (Late st Contact Info) Description 07/14/2025 1:30 PM FRONT DESK RECEPTIONIST Office Visit [facility] - Neurology [facility] #2 [place] [address] Aria Delong APRN, CENTERLESS GRINDER TENDER #2 [place] [address] documented as of this encounter Visit Diagnoses Diagnosis Cervical radiculopathy Brachial neuritis or radiculitis nos documented in this encounter Additional Health Concerns Infection Onset Date Last Indicated Resolved Time COVID - 19 Confirmed 05/31/2022 05/31/2022 023 12:16 AM FRONT DESK RECEPTIONIST Respiratory Rule Out - RPA 02/26/2023 02/26/2023 0 02/26/2023 11:31 AM CDT COVID - 19 02/26/2023 02/26/2023 03/08/2023 12:1 6 AM CDT documented as of this encounter Care Teams Pill Maker Relationship Specialty Start Date End Date Macy Kwok MD #2 [facility] [address] [place] [address] PCP - General Family Medicine 06/22/20 01/16/24 Tad Mcintosh MD [address] [place] [address] PCP - General Family Medicine 01/17/24 Srikanth Adrian MD #2 [facility] [address] [place] [address] Manager State Cardiovascular Disease - Cardiology 02/02/22 08/06/24 Gloria Martinez MD #2 [facility] [address] [place] [address] Consulting Physician Urology 04/30/24 documented as of this encounter
--- OUTSIDE RECORDS SUMMARY | 2025-05-17 18:09 | XMS_ITS | Encounter Summary ---
Author Organization [facility] Address [address] [place] [address] Phone Care Team Providers Care Woods Rider Name Role Phone Jabier Peck MD Primary Care Provider [phone] Srikanth Adrian MD Unavailable Tad Romero MD Primary Care Provider [phone] Gloria Martinez MD Unavailable [phone] Reason for Visit * Reason Comments Medication Refill Encounter Details Date Type Department Care Team (Late st Contact Info) Description 08/30/2022 Refill [facility] Family [facility] #2 [place] [address] Jabier Peck MD #[address] [address] Medication Refill Social History Tobacco Use Types [...] CDT Gender Identity Male 05/03/2023 12:44 PM EXTENDED INSURANCE CLERK Sexual Orientation Lesbian or Wolff 05/03/2023 12 :44 PM EXTENDED INSURANCE CLERK COVID-19 Exposure Response Date Recorded In the last 10 days, have tabby u been in contact with someone who was confirmed or suspected to have Coronavirus/COVID-19? No / Unsure 08/21/2022 12:53 PM EXTENDED INSURANCE CLERK documented as of this encounter Miscellaneous [...] 12/13/21 Telemedicine Kishore Prieto APRN, RICHARD [facility] Showing recent visits within past 365 days and meeting all other requirements Future Appointments Date Type Provider Dept 11/21/22 Appointment Jabier Peck MD [facility] Showing future appointments within next 90 days and meeting all other requirements documented in this encounter Plan of Treatment Upcoming Encounters Date Type Department Care Team (Late st Contact Info) Description 07/14/2025 1:30 PM EXTENDED INSURANCE CLERK Office Visit [facility] - Neurology - [place] #2 [place] [address] Aria Delong APRN, CLASSIFIED ADVERTISING SUPERVISOR #2 [place] [address] documented as of this encounter Visit Diagnoses [...] documented as of this encounter Care Teams Woods Rider Relationship Specialty Start Date End Date Jabier Peck MD #[address] [address] PCP - General Family Medicine 06/22/20 01/16/24 Tad Mcintosh MD [address] [place] [address] PCP - General Family Medicine 01/17/24 Srikanth Adrian MD #[address] [address] Repairer Maintenance Building Cardiovascular Disease - Cardiology 02/02/22 08/06/24 Gloria Martinez MD #[address] [address] Consulting Physician Urology 04/30/24 documented as of this encounter
--- OUTSIDE RECORDS SUMMARY | 2025-05-17 18:09 | XMS_ITS | Encounter Summary ---
Author Organization [facility] Address [address] [place] [address] Phone Care Team Providers Care Game Moderator Name Role Phone Jabier Peck MD Primary Care Provider [phone] Srikanth Adrian MD Unavailable Tad Romero MD Primary Care Provider [phone] Gloria Martinez MD Unavailable [phone] Reason for Visit * Reason Comments Medication Refill Encounter Details Date Type Department Care Team (Late st Contact Info) Description 03/19/2023 [facility]ill [facility] #2 [place] [id number] Jabier Peck MD #[address] [address] Medication Refill Social History Tobacco Use Types [...] CDT Gender Identity Male 05/03/2023 12:44 PM PAYROLL ACCOUNTING SPECIALIST Sexual Orientation Lesbian or Wolff 05/03/2023 12 :44 PM PAYROLL ACCOUNTING SPECIALIST COVID-19 Exposure Response Date Recorded In [...] [facility] 05/03/22 Telemedicine Jabier Peck MD [facility] [place] Showing recent visits within past 365 days and meeting all other requirements Future Appointments No visits were found meeting these conditions. Showing future appointments within next 90 days and meeting all other requirements documented in this encounter Plan of Treatment Upcoming Encounters Date Type Department Care Team (Late st Contact Info) Description 07/14/2025 1:30 PM PAYROLL ACCOUNTING SPECIALIST Office Visit [facility] - Neurology - [place] #2 [place] [address] Aria Delong APRN, ACCESS SERVICE REPRESENTATIVE #2 [place] [address] documented as of this encounter Visit Diagnoses Diagnosis Cervical radiculopathy Brachial neuritis or radiculitis nos Lumbar radiculopathy Thoracic or lumbosacral neuritis or radiculitis, unspecified documented in this encounter Care Teams Game Moderator Relationship Specialty Start Date End Date Jabier Peck MD #2 [facility] [address] [place] [address] PCP - General Family Medicine 06/22/20 01/16/24 Tad Mcintosh MD [address] [place] [address] PCP - General Family Medicine 01/17/24 Srikanth Adrian MD #2 [facility] [address] [place] [address] Carpenter'S Helper Cardiovascular Disease - Cardiology 02/02/22 08/06/24 Gloria Martinez MD #2 [facility] [address] [place] [address] Consulting Physician Urology 04/30/24 documented as of this encounter
--- OUTSIDE RECORDS SUMMARY | 2025-05-17 18:09 | XMS_ITS | Encounter Summary ---
Author Organization [facility] Address [address] [place] [address] Phone Care Team Providers Care Net Wpf Developer Name Role Phone Jaiber Peck MD Primary Care Provider [phone] Srikanth Adrian MD Unavailable Tad Romero MD Primary Care Provider [phone] Gloria Martinez MD Unavailable [phone] Reason for Visit * Reason Comments Medication Refill Encounter Details Date Type Department Care Team (Late st Contact Info) Description 04/13/2023 Refill [facility] #2 [place] [id number] Jabier Peck MD #[address] [address] Medication Refill Social History Tobacco Use Types [...] CDT Gender Identity Male 05/03/2023 12:44 PM ENAMEL MACHINE OPERATOR Sexual Orientation Lesbian or Wolff 05/03/2023 12 :44 PM ENAMEL MACHINE OPERATOR documented as of this encounter [...] Dept 02/26/23 Office Visit Kishore Prieto APRN, COMMUNITY LIVING COACH [facility] 12/18/22 Telemedicine Jabier Peck MD [facility] 11/30/22 Telemedicine Kishore Prieto APRN, COMMUNITY LIVING COACH [facility] [place] 08/21/22 Office Visit Jabier Peck MD [facility] 07/20/22 Office Visit Gerri Rocha MD [facility] 05/03/22 Telemedicine Jabier Peck MD [facility] [place] Showing recent visits within past 365 days and meeting all other requirements Future Appointments Date Type Provider Dept 06/28/23 Appointment Jabier Peck MD [facility] Showing future appointments within next 90 days and meeting all other requirements documented in this encounter Plan of Treatment Upcoming Encounters Date Type Department Care Team (Late st Contact Info) Description 07/14/2025 1:30 PM ENAMEL MACHINE OPERATOR Office Visit [facility] - Neurology - [place] #2 [place] [address] Aria Delong, REGRADER, MOUTHPIECE MAKER #2 [place] [address] documented as of this encounter Visit Diagnoses Diagnosis Cervical radiculopathy Brachial neuritis or radiculitis nos documented in this encounter Care Teams Net Wpf Developer Relationship Specialty Start Date End Date Jabier Peck MD #2 [facility] [address] [place] [address] PCP - General Family Medicine 06/22/20 01/16/24 Tad Mcintosh MD [address] [place] [address] PCP - General Family Medicine 01/17/24 Srikanth Adrian MD #2 [facility] [address] [place] [address] Cert Pharmacy Tech Cardiovascular Disease - Cardiology 02/02/22 08/06/24 Gloria Martinez MD #2 [facility] [address] [place] [address] Consulting Physician Urology 04/30/24 documented as of this encounter
--- OUTSIDE RECORDS SUMMARY | 2025-05-17 18:09 | XMS_ITS | Encounter Summary ---
Author Organization [facility] Address [address] [place] [address] Phone Care Team Providers Care Hoop Rolls Operator Name Role Phone Jabier Peck MD Primary Care Provider [phone] Srikanth Adrian MD Unavailable Tad Romero MD Primary Care Provider [phone] Gloria Martinez MD Unavailable [phone] Reason for Visit * Reason Comments Medication Refill Encounter Details Date Type Department Care Team (Late st Contact Info) Description 08/19/2022 Refill [facility] Center Oncology Services [address] [place] [address] Jt Morillo MD [address] [place] [address] Medication Refill Social History Tobacco Use Types [...] CDT Gender Identity Male 05/03/2023 12:44 PM BRAKE ENGINEER Sexual Orientation Lesbian or Wolff 05/03/2023 12 :44 PM BRAKE ENGINEER COVID-19 Exposure Response Date Recorded In the last 10 days, have yo u been in contact with someone who was confirmed or suspected to have Coronavirus/COVID-19? No / Unsure 08/21/2022 12:53 PM BRAKE ENGINEER documented as of this encounter Functional Status documented as of this encounter Mental Status * Question Answer Entry Date Author BP 118/78 08/21/2022 3:08 PM BRAKE ENGINEER Maryann Saab MA Temp 98 08/21/2022 3:08 PM BRAKE ENGINEER Maryann Saab MA Pulse 77 08/21/2022 3:08 PM BRAKE ENGINEER Maryann Saab MA SpO2 97 08/21/2022 3:08 PM BRAKE ENGINEER Maryann Saab MA documented in this encounter Miscellaneous Notes * Telephone Encounter - Aisha Escamilla RN - 08/21/2022 12:02 PM CST Approved Eliquis per last f/u note. E ENGINEER documented in this encounter Plan of Treatment Upcoming Encounters Date Type Department Care Team (Late st Contact Info) Description 07/14/2025 1:30 PM BRAKE ENGINEER [facility] - [place] #2 [place] [address] Aria Delong APRN, PHOTOENGRAVING MACHINE OPERATOR/TENDER #2 [place] [address] documented as of this encounter Visit Diagnoses Diagnosis History of thrombophilia associated with MTHFR mutation documented in this encounter Additional Health Concerns Infection Onset Date Last Indicated Resolved Time Respiratory Rule Out - RPA 02/26/2023 02/26/2023 0 02/26/2023 11:31 AM CDT COVID - 19 02/26/2023 02/26/2023 03/08/2023 12:1 6 AM CDT documented as of this encounter Care Teams Hoop Rolls Operator Relationship Specialty Start Date End Date Jabier Peck MD #2 [facility] [address] [place] [address] PCP - General Family Medicine 06/22/20 01/16/24 Tad Mcintosh MD [address] [place] [address] PCP - General Family Medicine 01/17/24 Srikanth Adrian MD #2 [facility] [address] [place] [address] Natural Resource Economist Cardiovascular Disease - Cardiology 02/02/22 08/06/24 Gloria Martinez MD #2 [facility] [address] [place] [address] Consulting Physician Urology 04/30/24 documented as of this encounter
--- OUTSIDE RECORDS SUMMARY | 2025-05-17 18:09 | XMS_ITS | Encounter Summary ---
Author Organization [facility] Address [address] [place] [address] Phone Care Team Providers Care Senior Production Supervisor Name Role Phone Jabier Peck MD Primary Care Provider [phone] Srikanth Adrian MD Unavailable Tad Romero MD Primary Care Provider [phone] Gloria Martinez MD Unavailable [phone] Reason for Visit * Reason Comments Medication Refill Encounter Details Date Type Department Care Team (Late st Contact Info) Description 05/25/2022 Refill [facility] - Cancer Center Oncology Services [address] [place] [address] Jt Morillo MD [address] [place] [address] Medication Refill Social History Tobacco Use Types [...] CDT Gender Identity Male 05/03/2023 12:44 PM PRIMER CHARGING TOOL SETTER Sexual Orientation Lesbian or Wolff 05/03/2023 12 :44 PM PRIMER CHARGING TOOL SETTER COVID-19 Exposure Response Date Recorded In the last 10 days, have yo u been in contact with someone who was confirmed or suspected to have Coronavirus/COVID-19? No / Unsure 05/10/2022 2:32 PM PRIMER CHARGING TOOL SETTER documented as of this encounter Miscellaneous Notes * Telephone Encounter - Aisha Escamilla, RN - 05/26/2022 11:00 AM CST Approved Eliquis per last f/u note. Pt to be on indefinite AC. ER CHARGING TOOL SETTER documented in this encounter Plan of Treatment Upcoming Encounters Date Type Department Care Team (Late st Contact Info) Description 07/14/2025 1:30 PM PRIMER CHARGING TOOL SETTER Office Visit [facility] Neu[facility] #2 [place] [address] Aria Delong APRN, TRANSFORMER REPAIRER #2 [place] [address] documented as of this encounter Visit Diagnoses Diagnosis History of thrombophilia associated with MTHFR mutation documented in this encounter Additional Health Concerns Infection Onset Date Last Indicated Resolved Time COVID - 19 Confirmed 05/31/2022 05/31/2022 023 12:16 AM PRIMER CHARGING TOOL SETTER Respiratory Rule Out - RPA 02/26/2023 02/26/2023 0 02/26/2023 11:31 AM CDT COVID - 19 02/26/2023 02/26/2023 03/08/2023 12:1 6 AM CDT documented as of this encounter Care Teams Senior Production Supervisor Relationship Specialty Start Date End Date Jabeir Peck MD #[address] [address] PCP - General Family Medicine 06/22/20 01/16/24 Tad Mcintosh MD [address] [place] [address] PCP - General Family Medicine 01/17/24 Srikanth Adrian MD #2 [facility] [address] [address] Machine Carton Marker Cardiovascular Disease - Cardiology 02/02/22 08/06/24 Gloria Martinez MD #[address] [facility] [address] [place] [address] Consulting Physician Urology 04/30/24 documented as of this encounter
--- OUTSIDE RECORDS SUMMARY | 2025-05-17 18:09 | XMS_ITS | Encounter Summary ---
Author Organization [facility] Address [address] [place] [address] Phone Care Team Providers Care Chief Crew Scheduler Name Role Phone Jabier Peck MD Primary Care Provider [phone] Srikanth Adrian MD Unavailable Tad Romero MD Primary Care Provider [phone] Gloria Martinez MD Unavailable [phone] Reason for Visit * Reason Onset Date Comments Medication Refill 03/28/2021 Encounter Details Date Type Department Care Team (Late st Contact Info) Description 03/28/2021 Refill [facility] Family [facility] #2 [place] [address] Jabier Peck MD #[address] [address] Medication Refill Social History Tobacco Use Types [...] Gender Identity Male 05/03/2023 12:44 PM FLOOR AND WALL APPLIER LIQUID Sexual Orientation Lesbian or Wolff 05/03/2023 12 :44 PM FLOOR AND WALL APPLIER LIQUID COVID-19 Exposure Response Date Recorded In the [...] Dept 03/16/21 Office Visit Kishore Prieto APN, LOAN REVIEW OFFICER [facility] [place] 11/16/20 Office Visit Kishore Prieto APN, LOAN REVIEW OFFICER [facility] 10/20/20 Office Visit Jabier Peck MD [facility] [place] 08/20/20 Telemedicine Kishore Prieto APN, RICHARD [facility] [place] 08/06/20 Telemedicine Kishore Prieto APN, LOAN REVIEW OFFICER [facility] 06/22/20 Office Visit Kishore Prieto APN, LOAN REVIEW OFFICER [facility] [place] Showing recent visits within past 365 days and meeting all other requirements Future Appointments Date Type Provider Dept 04/08/21 Appointment Jabier Peck MD [facility] [place] Showing future appointments within next 90 days [...] st Contact Info) Description 07/14/2025 1:30 PM FLOOR AND WALL APPLIER LIQUID Office Visit [facility] - Neurology - [place] #2 [place] [address] Aria Delong, TRUCK SWITCHER, FIBERGLASS ROVING WINDER #2 [place] [address] documented as of this encounter Visit Diagnoses Not on filedocumented in this encounter Additional Health Concerns Infection Onset Date Last Indicated Resolved Time COVID - 19 Confirmed 05/31/2022 05/31/2022 023 12:16 AM FLOOR AND WALL APPLIER LIQUID Respiratory Rule Out - RPA 02/26/2023 02/26/2023 0 02/26/2023 11:31 AM CDT COVID - 19 02/26/2023 02/26/2023 03/08/2023 12:1 6 AM CDT documented as of this encounter Care Teams Chief Crew Scheduler Relationship Specialty Start Date End Date Jabier Peck MD #[address] [address] PCP - General Family Medicine 06/22/20 01/16/24 Tad Mcintosh MD [address] [place] [address] PCP - General Family Medicine 01/17/24 Srikanth Adrian MD #2 [facility] [address] [place] [address] Dramatic Critic Cardiovascular Disease - Cardiology 02/02/22 08/06/24 Gloria Martinez MD #2 [facility] [address] [place] [address] Consulting Physician Urology 04/30/24 documented as of this encounter
--- OUTSIDE RECORDS SUMMARY | 2025-05-17 18:09 | XMS_ITS | Encounter Summary ---
Author Organization [facility] Address [address] [place] [address] Phone Care Team Providers Care Duplicator Punch Set Up Operator Name Role Phone Jabier Peck MD Primary Care Provider [phone] Srikanth Adrian MD Unavailable Tad Romero MD Primary Care Provider [phone] Gloria Martinez MD Unavailable [phone] Reason for Visit * Reason Onset Date Comments Advice Only 12/18/2022 Encounter Details Date Type Department Care Team (Late st Contact Info) Description 12/18/2022 Telephone [facility] [address] [place] [address] Jabier Peck MD #[address] [address] Advice Only Social History Tobacco Use Types [...] CDT Gender Identity Male 05/03/2023 12:44 PM AUTOMATIC SHIRRING MACHINE OPERATOR Sexual Orientation Lesbian or Wolff 05/03/2023 12 :44 PM AUTOMATIC SHIRRING MACHINE OPERATOR documented as of this encounter [...] st Contact Info) Description 07/14/2025 1:30 PM AUTOMATIC SHIRRING MACHINE OPERATOR Office Visit [facility] - [facility] #2 [place] [address] Aria Delong, MAIL READER, PLASTER CASTER #[address] [place] [address] documented as of this encounter Visit Diagnoses Not on filedocumented in this encounter Additional Health Concerns Infection Onset Date Last Indicated Resolved Time Respiratory Rule Out - RPA 02/26/2023 02/26/2023 0 02/26/2023 11:31 AM CDT COVID - 19 02/26/2023 02/26/2023 03/08/2023 12:1 6 AM CDT documented as of this encounter Care Teams Duplicator Punch Set Up Operator Relationship Specialty Start Date End Date Jabier Peck MD #[address] [address] PCP - General Family Medicine 06/22/20 01/16/24 Tad Mcintosh MD [address] [place] [address] PCP - General Family Medicine 01/17/24 Srikanth Adrian MD #[address] [address] [address] Chain Sales Consultant Cardiovascular Disease - Cardiology 02/02/22 08/06/24 Gloria Martinez MD #2 [facility] [address] [place] [address] Consulting Physician Urology 04/30/24 documented as of this encounter
--- OUTSIDE RECORDS SUMMARY | 2025-05-17 18:09 | XMS_ITS | Encounter Summary ---
Author Organization [facility] Address [address] [place] [address] Phone Care Team Providers Care Developmental Specialist Name Role Phone Jabier Pekc MD Primary Care Provider [phone] Srikanth Adrian MD Unavailable Tad Romero MD Primary Care Provider [phone] Gloria Martinez MD Unavailable [phone] Reason for Visit * Reason Comments Medication Refill Encounter Details Date Type Department Care Team (Late st Contact Info) Description 02/22/2022 Refill [facility] #2 [place] [address] Jabier Peck MD #[address] [address] Medication Refill Social History Tobacco Use Types [...] Gender Identity Male 05/03/2023 12:44 PM MANAGER SOFTWARE Sexual Orientation Lesbian or Wolff 05/03/2023 12 :44 PM MANAGER SOFTWARE COVID-19 Exposure Response Date Recorded In the [...] [place] 03/16/21 Office Visit Kishore Prieto APRN, ICE CREAM DIPPER [facility] [place] Showing recent visits within past 365 days and meeting all other requirements Future Appointments Date Type Provider Dept 02/24/22 Appointment Kishore Prieto, MARKET RISK SPECIALIST, ICE CREAM DIPPER [facility] Showing future appointments within next 90 days and meeting all other requirements documented in this encounter Plan of Treatment Upcoming Encounters Date Type Department Care Team (Late st Contact Info) Description 07/14/2025 1:30 PM MANAGER SOFTWARE [facility] - Neurology - [place] #2 [place] [address] Aria Delong APRN, PHARMACIST APPRENTICE #[address] [place] [address] documented as of this encounter Visit Diagnoses Diagnosis Cervical radiculopathy Brachial neuritis or radiculitis nos documented in this encounter Additional Health Concerns Infection Onset Date Last Indicated Resolved Time COVID - 19 Confirmed 05/31/2022 05/31/2022 023 12:16 AM MANAGER SOFTWARE Respiratory Rule Out - RPA 02/26/2023 02/26/2023 0 02/26/2023 11:31 AM CDT COVID - 19 02/26/2023 02/26/2023 03/08/2023 12:1 6 AM CDT documented as of this encounter Care Teams Developmental Specialist Relationship Specialty Start Date End Date Jabier Peck MD #[address] [address] PCP - General Family Medicine 06/22/20 01/16/24 Tad Mcintosh MD [address] [place] [address] PCP - General Family Medicine 01/17/24 Srikanth Adrian MD #[address] [address] Deck Builder Cardiovascular Disease - Cardiology 02/02/22 08/06/24 Gloria Martinez MD #[address] [address] Consulting Physician Urology 04/30/24 documented as of this encounter
--- OUTSIDE RECORDS SUMMARY | 2025-05-17 18:09 | XMS_ITS | Encounter Summary ---
Author Organization [facility] Address [address] [place] [address] Phone Care Team Providers Care Marketing Services Specialist Name Role Phone Srikanth Adrian MD Unavailable Tad Romero MD Primary Care Provider [phone] Gloria Martniez MD Unavailable [phone] Reason for Visit * Reason Comments Medication Refill Encounter Details Date Type Department Care Team (Late st Contact Info) Description 07/03/2024 Refill [facility] #2 [place] [address] Jabier Peck MD #[address] [address] Medication Refill Social History Tobacco Use Types [...] Gender Identity Male 05/03/2023 12:44 PM COLOR COATER Sexual Orientation Lesbian or Wolff 05/03/2023 12 :44 PM COLOR COATER documented as of this encounter Miscellaneous Notes * Telephone Encounter - Francine Soto RN - 07/04/2024 8:54 AM CST PCP: Tad Mcintosh MD R COATER documented in this encounter Plan of Treatment Upcoming Encounters Date Type Department Care Team (Late st Contact Info) Description 07/14/2025 1:30 PM COLOR COATER Office Visit [facility] - Neurology - [place] #[address] [place] [address] Aria Delong APRN, LABEL MAKER #[address] [place] [address] documented as of this encounter Visit Diagnoses Not on filedocumented in this encounter Care Teams Marketing Services Specialist Relationship Specialty Start Date End Date Tad Mcintosh MD [address] [place] [address] PCP - General Family Medicine 01/17/24 Srikanth Adrian MD Product Marketing Manager Cardiovascular Disease - Cardiology 02/02/22 08/06/24 Gloria Martinez MD #[address] [address] Consulting Physician Urology 04/30/24 documented as of this encounter
--- OUTSIDE RECORDS SUMMARY | 2025-05-17 18:09 | XMS_ITS | Clinical Summary ---
Author Organization [facility] Address [address] [place] [address] Care Team Providers Care Lead Handler Name Role Phone Tad Mcintosh DO Primary [...] 04/29/2025 Assessment & Plan (04/29/2025 11:13 AM HOUSING INSPECTORS): Prescription medications sent to Pharmacy today: Dexamethasone mouth rinse and spits before meals Peridex mouth rinse and spits after meals Viscous lidocaine as needed Follow up in 6 weeks if no improvement will recommend biopsy Keratosis 07/17/2024 Assessment & Plan (07/17/2024 1:09 PM HOUSING INSPECTORS): Continue increased hydration Avoid acidic foods and fluids for one more week Thrombophilia 01/25/2023 Palpitations 11/22/2022 Chest pain 07/31/2022 Essential hypertension 07/31/2022 Tongue lesion 04/28/2020 Assessment & Plan (06/26/2024 9:29 AM HOUSING INSPECTORS): Has pain medication prescribed by Manasa Cortes at [facility] will confirm use of [place] after surgery Stop Eliquis for 5 days before and after Excision of left lateral and right lateral tongue lesions with repair Risks and complications: Anesthesia, bleeding, infection, benign versus malignant pathology, recurrence of lesion, injury to arteries, nerves and veins, scarring and need for further treatment Assessment & Plan (04/28/2020 1:41 PM HOUSING INSPECTORS): Speak to [facility] about smoothing out right first [...] week Assessment & Plan (04/28/2020 1:41 PM HOUSING INSPECTORS): Speak to [facility] about smoothing out right first [...] (04/18/2019): Added automatically from request for surgery [id number] Hematochezia 03/04/2019 Overview (03/04/2019): Added automatically from request for surgery [id number] Family history of colon cancer 03/04/2019 Overview (03/04/2019): Added automatically from request for surgery [id number] 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 [place] level is in process. Will hold at [...] recommended Assessment & Plan (07/08/2019 3:43 PM HOUSING INSPECTORS): Healthy, low carbohydrate lifestyle and exercise for [...] hydration Assessment & Plan (08/10/2017 1:23 PM HOUSING INSPECTORS): s/p Right inferior parathyroidectomy - 08/10/2016 pre [...] renal Assessment & Plan (05/01/2017 10:36 PM HOUSING INSPECTORS): s/p Right inferior parathyroidectomy - 08/10/2016 pre [...] future Assessment & Plan (08/10/2017 1:24 PM HOUSING INSPECTORS): Recheck levels Assessment & Plan (12/17/2016 8:01 AM CDT): Recheck levels Type 2 diabetes mellitus wit h stage 3 chronic kidney disease, with long-term current use of insulin 12/11/2016 Assessment & Plan (07/08/2019 3:42 PM HOUSING INSPECTORS): A1c 5.5% Jun 2019 on no medications. [...] needed. Assessment & Plan (08/10/2017 1:26 PM HOUSING INSPECTORS): - A1c today 5.5 % - due [...] months. Assessment & Plan (05/01/2017 10:36 PM HOUSING INSPECTORS): - reviewed BS log - BS well [...] statin. Assessment & Plan (08/10/2017 1:23 PM HOUSING INSPECTORS): On statin therapy - advised to increase physical activity - advised low fat/chol diet and avoid greasy and junk food Assessment & Plan (05/01/2017 10:37 PM HOUSING INSPECTORS): On statin therapy - advised to increase [...] activity Assessment & Plan (08/10/2017 1:24 PM HOUSING INSPECTORS): BP well controlled, chronic At goal advised [...] f/u with him Explained the risk of detention MAK and encourage use of CPAP or [...] smoking so they can encourage you. Director Of Medical Staff Services referral placed. Class 2 severe obesity due t o excess calories with serious comorbidity and body mass index (BMI) of 37.0 to 37.9 in adult 08/16/2012 Overview (09/22/2016): Obesity Assessment & Plan (12/25/2019 1:57 PM CDT): Healthy, low carbohydrate lifestyle and exercise for 150min/week recommended Referral for investment banking analyst placed. Assessment & Plan (10/16/2019 11:40 AM [...] greens, fat-free milk, cottage cheese, nuts like [id number]-tfymjkd, protein bars with 10-15 g of protein [...] discussed. Assessment & Plan (05/01/2017 10:37 PM HOUSING INSPECTORS): Obesity is improving with treatment. Discussed the [...] time. Assessment & Plan (05/01/2017 10:37 PM HOUSING INSPECTORS): Hypertension is improving with treatment. Continue current [...] Department Care Team Description 04/29/2025 9:45 AM HOUSING INSPECTORS Office Visit [facility] - [address] [place] [address] Tammi Jeff DO Oral ulcer [...] stage 3, GFR 30-59 ml/min ([facility]) [place] poisoning Headache, tension-type Sleep apnea patient had Uvul a and T&A and the helped GERD (gastroesophageal reflu x disease) Irritable bowel syndrome Diverticulitis of colon Cerebrovascular accident (CVA) ([facility]) Cerebrovascular accident Cerebrovascular accident (CVA) ([facility]) Stroke Obesity Pulmonary embolism 12/15/2019 [...] on file Legal Sex Male 5:22 PM HOUSING INSPECTORS Gender Identity Not on file Sexual Orientation Not on file Last Filed Vital Signs Vital Sign Reading Time Taken Comments Blood Pressure 136/84 07/10/2024 4:54 PM HOUSING INSPECTORS Pulse 62 07/10/2024 4:54 PM HOUSING INSPECTORS Temperature 36.4 C (97.5 F) 07/10/2024 4:54 PM HOUSING INSPECTORS Respiratory Rate 16 07/10/2024 4:54 PM HOUSING INSPECTORS Oxygen Saturation 97% 07/10/2024 4:54 PM HOUSING INSPECTORS Inhaled Oxygen Concentration - - Weight 105.8 kg (233 lb 4 oz) 07/10/2024 10:09 A M HOUSING INSPECTORS Height 175.3 cm (5' 9) 07/10/2024 10:09 AM HOUSING INSPECTORS Body Mass Index 34.44 07/10/2024 10:09 AM HOUSING INSPECTORS Plan of Treatment Health Maintenance Due Date [...] 02/26/2029 02/26/2019 Medical Devices Implanted Type Area Customer Contact Sales Associate Device Identifier Shelf Expiration Date Model / Serial / Lot TDX Angio-Seal Vip 6fr Closere Device [id number] - [id number] Implanted:Qty: 1 on 10/12/2022 by Eliel Ortiz MD at [facility] Other - see comments [employer] Kalin 03/17/2023 [id number] / / [id number] [employer] [id number] 4mm 44mm Compression Headless Foot Ankle Screw Bone - [id number] Implanted:Qty: 1 on 04/25/2019 by Chidi Rios DPM at [facility] Right: Toes [employer] [id number] / / [employer] [place] Ezm 10-10-10 Easyclip Si 2mm [id number] Monocortical Superelastic Reamer - [id number] Implanted:Qty: 1 on 04/25/2019 by Chidi Rios DPM at [facility] Right: Toes [employer] [place] 11/16/2023 EZM 10-10-10 / / [id number] [employer] [place] Ezm --10 Easyclip Si 2mm [id number] Monocortical Superelastic Reamer - [id number] Implanted:Qty: 1 on 04/25/2019 by Chidi Rios DPM at [facility] Right: Toes [employer] [place] 11/16/2023 [facility] 10-10-10 / / [id number] Toe Tac Xpress Hammertoe Fixation System Implanted:Qty: 2 on 04/25/2019 by Chidi Rios DPM at [facility] Right: Toes [employer] [id number] 05/27/2021 -[id number] / [id number] / [id number] [employer] Implanted:Qty: 1 on 04/25/2019 by Chidi Rios DPM at [facility] Right: Toes [employer] 07/18/2028 [id number] / / [id number] Procedures Procedure Name Priority Date/Time Associated Diagnosis Comments EGFR STAT 04/19/2023 3:53 PM CDT HEMOGLOBIN A1C Routine 12/13/2019 2:55 PM CDT LIPID PANEL Routine 05/17/2018 2:25 PM HOUSING INSPECTORS Type 2 diabetes mellitus with hyperglycemia, with long-term current use of insulin (HCC) from Last 3 Months or Most Recently Relevant to Health Maintenance Results * eGFR (04/19/2023 3:53 PM CDT) eGFR 51 mL/min/1. 73 m2 JANUARY [facility] ([place]) Comment: Interpretive Data Reference Interval Normal >/= [...] ORDERABLE S Final Result Performing Organization Address City/[facility]/ZIP Co de Phone Number JANUARY [facility] ([place]) 1 [facility] Department [place] [address] * (ABNORMAL) Hemoglobin A1c (12/13/2019 2:55 PM CDT) Blood specimen (specimen) 12/13/2019 2:55 PM CDT Narrative [facility] - 12/13/2019 2:55 PM CDT Results in labs Aliza Carlson MD LAB BLOOD ORDERABLES Becky l Result Performing Organization Address [facility] [place] [phone] * (ABNORMAL) Lipid panel (05/17/2018 2:25 PM HOUSING INSPECTORS) Cholesterol 159 30 - 199 mg/dL JANUARY [...] (EVER) Blood specimen (specimen) 05/17/2018 2:25 PM HOUSING INSPECTORS 05/17/2018 5:15 PM HOUSING INSPECTORS Narrative JANUARY [facility] ([facility]) - 05/17/2018 6:14 PM HOUSING INSPECTORS Cleoja Levi Sims MD LAB BLOOD ORDERABLE S Final Result JANUARY [facility] (EVER) 1 [facility] Department [place] [address] from Last 3 Months or Most Recently Relevant to Health Maintenance Insurance IDKY [facility] MEDICARE ADVANTAGE MEDICARE [facility] MEDICARE ADVANTAGE [facility] MEDICARE ADVANTAGE IDPA [facility] MEDICARE ADVANTAGE Advance Directives For more information, please contact: [phone] * Full Code (Latest Code Status on File) Date Activated Date Inactivated Comments 10/12/2022 2:12 PM 10/12/2022 10:46 PM * Full Code Date Activated Date Inactivated Comments 09/24/2017 9:04 PM 09/30/2017 5:22 PM Care Teams Lead Handler Relationship Specialty Start Date End Date Tad Mcintosh DO [address] [place] [address] PCP - General Family Medicine 06/26/24
--- OUTSIDE RECORDS SUMMARY | 2025-05-17 18:09 | XMS_ITS | Encounter Summary ---
Author Organization [facility] Address [address] [place] [address] Phone Care Team Providers Care Drawer In Dobby Loom Name Role Phone Jabier Peck MD Primary Care Provider [phone] Srikanth Adrian MD Unavailable Tad Romero MD Primary Care Provider [phone] Gloria Martinez MD Unavailable [phone] Reason for Visit * Reason Comments Medication Refill Encounter Details Date Type Department Care Team (Late st Contact Info) Description 07/28/2022 [facility]ill [facility] [address] [place] [address] Jabier Peck MD #[address] [address] Medication Refill Social History Tobacco Use Types [...] Gender Identity Male 05/03/2023 12:44 PM ADULT HEALTH CLINICAL NURSE SPECIALIST Sexual Orientation Lesbian or Wolff 05/03/2023 12 :44 PM ADULT HEALTH CLINICAL NURSE SPECIALIST COVID-19 Exposure Response Date Recorded In the last 10 days, have tabby u been in contact with someone who was confirmed or suspected to have Coronavirus/COVID-19? No / Unsure 07/20/2022 2:30 PM ADULT HEALTH CLINICAL NURSE SPECIALIST documented as of this encounter Miscellaneous [...] [place] 12/13/21 Telemedicine Kishore Prieto APRN, RICHARD [facility] [place] 08/01/21 Office Visit Jabier Peck MD [facility] [place] Showing recent visits within past 365 days and meeting all other requirements Future Appointments No visits were found meeting these conditions. Showing future appointments within next 90 days and meeting all other requirements T HEALTH CLINICAL NURSE SPECIALIST documented in this encounter Plan of Treatment Upcoming Encounters Date Type Department Care Team (Late st Contact Info) Description 07/14/2025 1:30 PM ADULT HEALTH CLINICAL NURSE SPECIALIST Office Visit [facility] - Neurology - [place] [address] [place] [address] Aria Delong, ELECTRONIC WARFARE OPERATOR, COURT ADVOCATE [address] [place] [address] documented as of this encounter Visit Diagnoses Diagnosis Cervical radiculopathy Brachial neuritis or radiculitis nos documented in this encounter Additional Health Concerns Infection Onset Date Last Indicated Resolved Time Respiratory Rule Out - RPA 02/26/2023 02/26/2023 0 02/26/2023 11:31 AM CDT COVID - 19 02/26/2023 02/26/2023 03/08/2023 12:1 6 AM CDT documented as of this encounter Care Teams Drawer In Dobby Loom Relationship Specialty Start Date End Date Jabier Peck MD #2 [facility] [address] [place] [address] PCP - General Family Medicine 06/22/20 01/16/24 Tad Mcintosh MD [address] [place] [address] PCP - General Family Medicine 01/17/24 Srikanth Adrian MD #2 [facility] [address] [place] [address] Hot Wound Spring Production Supervisor Cardiovascular Disease - Cardiology 02/02/22 08/06/24 Gloria Martinez MD #2 [facility] [address] [place] [address] Consulting Physician Urology 04/30/24 documented as of this encounter
--- OUTSIDE RECORDS SUMMARY | 2025-05-17 18:09 | XMS_ITS | Encounter Summary ---
Author Organization [facility] Address [address] [place] [address] Phone Care Team Providers Care Forge Heater Name Role Phone Jabier Peck MD Primary Care Provider [phone] Srikanth Adrian MD Unavailable Tad Romero MD Primary Care Provider [phone] Gloria Martinez MD Unavailable [phone] Reason for Visit * Reason Comments Medication Refill Encounter Details Date Type Department Care Team (Late st Contact Info) Description 02/02/2021 Refill [facility] [address] [place] [address] Jabier Peck MD #[address] [address] Medication Refill Social History Tobacco Use Types [...] CDT Gender Identity Male 05/03/2023 12:44 PM RING MAKER Sexual Orientation Lesbian or Wolff 05/03/2023 12 :44 PM RING MAKER documented as of this encounter Miscellaneous [...] Office Visit Kishore Prieto APN, RICHARD [facility] [place] 10/20/20 Office Visit Jabier Peck MD [facility] [place] 08/20/20 Telemedicine Kishore Prieto APN, RICHARD [facility] [place] 08/06/20 Telemedicine Kishore Prieto APN, RICHARD [facility] [place] 06/22/20 Office Visit Kishore Prieto APN, RICHARD [facility] Showing recent visits within past 365 days and meeting all other requirements Future Appointments No visits were found meeting these conditions. Showing future appointments within next 90 days and meeting all other requirements documented in this encounter Plan of Treatment Upcoming Encounters Date Type Department Care Team (Late st Contact Info) Description 07/14/2025 1:30 PM RING MAKER Office Visit [facility] - [facility] - [place] [address] [place] [address] Aria Delong, BAND SINGER, INNER LAYER SCRUBBER TENDER [address] [place] [address] documented as of this encounter Visit Diagnoses Not on filedocumented in this encounter Additional Health Concerns Infection Onset Date Last Indicated Resolved Time COVID - 19 Confirmed 05/31/2022 05/31/2022 023 12:16 AM RING MAKER Respiratory Rule Out - RPA 02/26/2023 02/26/2023 0 02/26/2023 11:31 AM CDT COVID - 19 02/26/2023 02/26/2023 03/08/2023 12:1 6 AM CDT documented as of this encounter Care Teams Forge Heater Relationship Specialty Start Date End Date Jabier Peck MD #2 [facility] [address] [place] [address] PCP - General Family Medicine 06/22/20 01/16/24 Tad Mcintosh MD [address] [place] [address] PCP - General Family Medicine 01/17/24 Srikanth Adrian MD #2 [facility] [address] [place] [address] Teller Vault Cardiovascular Disease - Cardiology 02/02/22 08/06/24 Gloria Martinez MD #2 [facility] [address] [place] [address] Consulting Physician Urology 04/30/24 documented as of this encounter
--- OUTSIDE RECORDS SUMMARY | 2025-05-17 18:09 | XMS_ITS | Encounter Summary ---
Author Organization [facility] Address [address] [place] [address] Phone Care Team Providers Care Lead Generator Name Role Phone Srikanth Adrian MD Unavailable Tad Romero MD Primary Care Provider [phone] Gloria Martinez MD Unavailable [phone] Reason for Visit * Reason Comments Medication Refill Encounter Details Date Type Department Care Team (Late st Contact Info) Description 03/29/2024 Refill [facility] Family Medicine [facility] [address] [place] [address] Kishore Prieto APRN, LDR RN #[address] [address] Medication Refill Social History Tobacco Use Types [...] Gender Identity Male 05/03/2023 12:44 PM CIVIL STRUCTURAL DESIGNER Sexual Orientation Lesbian or Wolff 05/03/2023 12 :44 PM CIVIL STRUCTURAL DESIGNER documented as of this encounter Miscellaneous Notes * Telephone Encounter - Cristine Preston RN - 03/30/2024 1:22 PM CDT PCP: Tad Mcintosh MD documented in this encounter Plan of Treatment Upcoming Encounters Date Type Department Care Team (Late st Contact Info) Description 07/14/2025 1:30 PM CIVIL STRUCTURAL DESIGNER Office Visit [facility] - [facility]rology - [place] [address] [place] [address] Aria Delong APRN, ENVELOPE FOLDING MACHINE ADJUSTER [address] [place] [address] documented as of this encounter Visit Diagnoses Not on filedocumented in this encounter Care Teams Lead Generator Relationship Specialty Start Date End Date Tad Mcintosh MD [address] [place] [address] PCP - General Family Medicine 01/17/24 Srikanth Adrian MD Insurance Premium Auditor Cardiovascular Disease - Cardiology 02/02/22 08/06/24 Gloria Martinez MD #[address] [address] Consulting Physician Urology 04/30/24 documented as of this encounter
--- OUTSIDE RECORDS SUMMARY | 2025-05-17 18:09 | XMS_ITS | Encounter Summary ---
Author Organization [facility] Address [address] [place] [address] Phone Care Team Providers Care Fur Finisher Name Role Phone Jabier Peck MD Primary Care Provider [phone] Srikanth Adrian MD Unavailable Tad Romero MD Primary Care Provider [phone] Gloria Martinez MD Unavailable [phone] Reason for Visit * Reason Comments Medication Refill Encounter Details Date Type Department Care Team (Late st Contact Info) Description 07/22/2021 Refill [facility] Oncology Services [address] [place] [address] Jt Morillo MD [address] [place] [address] Medication Refill Social History Tobacco Use Types [...] CDT Gender Identity Male 05/03/2023 12:44 PM OXYGEN EQUIPMENT PREPARER Sexual Orientation Lesbian or Wolff 05/03/2023 12 :44 PM OXYGEN EQUIPMENT PREPARER COVID-19 Exposure Response Date Recorded In the last month, have you been in contact with someone who was confirmed or suspected to have Coronavirus / COVID-19? No / Unsure 07/14/2021 12:17 PM OXYGEN EQUIPMENT PREPARER documented as of this encounter Miscellaneous Notes * Telephone Encounter - Michelle Wharton RN - 07/22/2021 2:26 PM OXYGEN EQUIPMENT PREPARER Refilled Eliquis EN EQUIPMENT PREPARER documented in this encounter Plan of Treatment Upcoming Encounters Date Type Department Care Team (Late st Contact Info) Description 07/14/2025 1:30 PM OXYGEN EQUIPMENT PREPARER Office Visit [facility] - [facility] [address] [place] [address] Aria Delong APRN, MANAGER RELIABILITY [address] [place] [address] documented as of this encounter Visit Diagnoses Diagnosis History of thrombophilia associated with MTHFR mutation documented in this encounter Additional Health Concerns Infection Onset Date Last Indicated Resolved Time COVID - 19 Confirmed 05/31/2022 05/31/2022 023 12:16 AM OXYGEN EQUIPMENT PREPARER Respiratory Rule Out - RPA 02/26/2023 02/26/2023 0 02/26/2023 11:31 AM CDT COVID - 19 02/26/2023 02/26/2023 03/08/2023 12:1 6 AM CDT documented as of this encounter Care Teams Fur Finisher Relationship Specialty Start Date End Date Jabier Peck MD #[address] [address] PCP - General Family Medicine 06/22/20 01/16/24 Tad Mcintosh MD [address] [place] [address] PCP - General Family Medicine 01/17/24 Srikanth Adrian MD #[address] [facility] [address] [place] [address] Packer And Carry Out Cardiovascular Disease - Cardiology 02/02/22 08/06/24 Gloria Martinez MD #[address] [facility] [address] [place] [address] Consulting Physician Urology 04/30/24 documented as of this encounter
--- OUTSIDE RECORDS SUMMARY | 2025-05-17 18:09 | XMS_ITS | Encounter Summary ---
Author Organization [facility] Address [address] [place] [address] Phone Care Team Providers Care It Risk Advisor Name Role Phone Jabier Peck MD Primary Care Provider [phone] Srikanth Adrian MD Unavailable Tad Romero MD Primary Care Provider [phone] Gloria Martinez MD Unavailable [phone] Reason for Visit * Reason Comments Medication Refill Encounter Details Date Type Department Care Team (Late st Contact Info) Description 06/16/2021 Refill [facility] - Family Medicine [facility] [address] [place] [address] Jabier Peck MD #[address] [address] Medication Refill Social History Tobacco Use Types [...] CDT Gender Identity Male 05/03/2023 12:44 PM APPEALS OFFICER Sexual Orientation Lesbian or Wolff 05/03/2023 12 :44 PM APPEALS OFFICER COVID-19 Exposure Response Date Recorded In the last month, have you been in contact with someone who was confirmed or suspected to have Coronavirus / COVID-19? No / Unsure 06/16/2021 1:10 PM APPEALS OFFICER documented as of this encounter Miscellaneous [...] Dept 04/29/21 [facility] [place] 03/16/21 Office Visit Kishore Prieto APRN, RICHARD [facility] [place] 11/16/20 Office Visit Kishore Prieto APRN, RICHARD [facility] [place] 10/20/20 Office Visit Jabier Peck MD [facility] [place] 08/20/20 Telemedicine Kishore Prieto APRN, RICHARD [facility] [place] 08/06/20 Telemedicine Kishore Prieto APRN, RICHARD [facility] [place] 06/22/20 Office Visit Kishore Prieto APRN, ANIMAL HUSBANDMAN [facility] [place] Showing recent visits within past 365 days and meeting all other requirements Future Appointments Date Type Provider Dept 08/01/21 Appointment Jabier Peck MD [facility] [place] Showing future appointments within next 90 days and meeting all other requirements ALS OFFICER documented in this encounter Plan of Treatment Upcoming Encounters Date Type Department Care Team (Late st Contact Info) Description 07/14/2025 1:30 PM APPEALS OFFICER Office Visit [facility] - Neurology - [place] [address] [place] [address] Aria Delong, GAMES DEALER, EGG BREAKER [address] [place] [address] documented as of this encounter Visit Diagnoses Diagnosis Cervical radiculopathy Brachial neuritis or radiculitis nos documented in this encounter Additional Health Concerns Infection Onset Date Last Indicated Resolved Time COVID - 19 Confirmed 05/31/2022 05/31/2022 023 12:16 AM APPEALS OFFICER Respiratory Rule Out - RPA 02/26/2023 02/26/2023 0 02/26/2023 11:31 AM CDT COVID - 19 02/26/2023 02/26/2023 03/08/2023 12:1 6 AM CDT documented as of this encounter Care Teams It Risk Advisor Relationship Specialty Start Date End Date Jabier Peck MD #[address] [address] PCP - General Family Medicine 06/22/20 01/16/24 Tad Mcintosh MD [address] [place] [address] PCP - General Family Medicine 01/17/24 Srikanth Adrian MD #[address] [address] Compensation Advisor Cardiovascular Disease - Cardiology 02/02/22 08/06/24 Gloria Martinez MD #2 [facility] [address] [place] [address] Consulting Physician Urology 04/30/24 documented as of this encounter
--- OUTSIDE RECORDS SUMMARY | 2025-05-17 18:09 | XMS_ITS | Encounter Summary ---
Author Organization [facility] Address [address] [place] [address] Phone Care Team Providers Care Easter Bunny Name Role Phone Jabier Peck MD Primary Care Provider [phone] Srikanth Adrian MD Unavailable Tad Romero MD Primary Care Provider [phone] Gloria Martinez MD Unavailable [phone] Reason for Visit * Reason Onset Date Comments Medication Refill 12/28/2021 Encounter Details Date Type Department Care Team (Late st Contact Info) Description 12/28/2021 Refill [facility] #2 [place] [address] Jabier Peck MD #[address] [address] Medication Refill Social History Tobacco Use Types [...] Gender Identity Male 05/03/2023 12:44 PM FISH EGG PACKER Sexual Orientation Lesbian or Wolff 05/03/2023 12 :44 PM FISH EGG PACKER COVID-19 Exposure Response Date Recorded In the [...] physician/MARVA review. Refill encounter routed to nurse [email or web address] [employer] for processing. documented in this encounter Plan of Treatment Upcoming Encounters Date Type Department Care Team (Late st Contact Info) Description 07/14/2025 1:30 PM FISH EGG PACKER Office Visit [facility] - Neurology [facility] #2 [place] [address] Aria Delong APRN, SALES EFFECTIVENESS MANAGER #2 [place] [address] documented as of this encounter Visit Diagnoses Not on filedocumented in this encounter Additional Health Concerns Infection Onset Date Last Indicated Resolved Time COVID - 19 Confirmed 05/31/2022 05/31/2022 023 12:16 AM FISH EGG PACKER Respiratory Rule Out - RPA 02/26/2023 02/26/2023 0 02/26/2023 11:31 AM CDT COVID - 19 02/26/2023 02/26/2023 03/08/2023 12:1 6 AM CDT documented as of this encounter Care Teams Easter Bunny Relationship Specialty Start Date End Date Jabier Peck MD #[address] [address] PCP - General Family Medicine 06/22/20 01/16/24 Tad Mcintosh MD [address] [place] [address] PCP - General Family Medicine 01/17/24 Srikanth Adrian MD #2 [facility] [address] [place] [address] Project Intern Cardiovascular Disease - Cardiology 02/02/22 08/06/24 Gloria Martinez MD #2 [facility] [address] [place] [address] Consulting Physician Urology 04/30/24 documented as of this encounter
--- OUTSIDE RECORDS SUMMARY | 2025-05-17 18:09 | XMS_ITS | Encounter Summary ---
Author Organization [facility] Address [address] [place] [address] Phone Care Team Providers Care Dry Wall Installations Mechanic Name Role Phone Jabier Peck MD Primary Care Provider [phone] Srikanth Adrian MD Unavailable Tad Romero MD Primary Care Provider [phone] Gloria Martinez MD Unavailable [phone] Reason for Visit * Reason Comments Medication Refill Encounter Details Date Type Department Care Team (Late st Contact Info) Description 10/24/2022 Refill [facility] Family Medicine [facility] #2 [place] [address] Jabier Peck MD #[address] [address] Medication Refill Social History Tobacco Use Types [...] CDT Gender Identity Male 05/03/2023 12:44 PM READING TUTOR Sexual Orientation Lesbian or Wolff 05/03/2023 12 :44 PM READING TUTOR documented as of this encounter Miscellaneous Notes [...] [place] 12/13/21 Telemedicine Kishore Prieto APRN, RICHARD [facility] [place] [...] st Contact Info) Description 07/14/2025 1:30 PM READING TUTOR [facility] - [place] #[address] [place] [address] Aria Delong APRN, QUIRK SANDER #2 [place] [address] documented as of this encounter Visit Diagnoses Not on filedocumented in this encounter Additional Health Concerns Infection Onset Date Last Indicated Resolved Time Respiratory Rule Out - RPA 02/26/2023 02/26/2023 0 02/26/2023 11:31 AM CDT COVID - 19 02/26/2023 02/26/2023 03/08/2023 12:1 6 AM CDT documented as of this encounter Care Teams Dry Wall Installations Mechanic Relationship Specialty Start Date End Date Jabier Peck MD #2 [facility] [address] [place] [address] PCP - General Family Medicine 06/22/20 01/16/24 Tad Mcintosh MD [address] [place] [address] PCP - General Family Medicine 01/17/24 Srikanth Adrian MD #2 [facility] [address] [place] [address] Milk Powder Grinder Cardiovascular Disease - Cardiology 02/02/22 08/06/24 Gloria Martinez MD #2 [facility] [address] [place] [address] Consulting Physician Urology 04/30/24 documented as of this encounter
--- OUTSIDE RECORDS SUMMARY | 2025-05-17 18:09 | XMS_ITS | Encounter Summary ---
Author Organization [facility] Address [address] [place] [address] Phone Care Team Providers Care Marketing Summer Intern Name Role Phone Jabier Peck MD Primary Care Provider [phone] Srikanth Adrian MD Unavailable Tad Romero MD Primary Care Provider [phone] Gloria Martinez MD Unavailable [phone] Reason for Visit * Reason Comments Medication Refill Encounter Details Date Type Department Care Team (Late st Contact Info) Description 02/24/2022 Refill [facility] Family [facility] #2 [place] [address] Jabier Peck MD #[address] [address] Medication Refill Social History Tobacco Use Types [...] CDT Gender Identity Male 05/03/2023 12:44 PM PRISON LIBRARIAN Sexual Orientation Lesbian or Wolff 05/03/2023 12 :44 PM PRISON LIBRARIAN COVID-19 Exposure Response Date Recorded In the [...] 03/16/21 Office Visit Kishore Prieto APRN, RICHARD [facility] [place] Showing recent visits within past 365 days and meeting all other requirements Today's Visits Date Type Provider Dept 09/09/22 Appointment Kishore Prieto APRN, CORRECTIONS SPECIALIST [facility]'s visits and meeting all other requirements Future Appointments No visits were found meeting these conditions. Showing future appointments within next 90 days and meeting all other requirements documented in this encounter Plan of Treatment Upcoming Encounters Date Type Department Care Team (Late st Contact Info) Description 07/14/2025 1:30 PM PRISON LIBRARIAN [facility] [place] #2 [place] [address] Aria Delong BODYBUILDER, SKOOG MACHINE OPERATOR #2 [place] [address] documented as of this encounter Visit Diagnoses Not on filedocumented in this encounter Additional Health Concerns Infection Onset Date Last Indicated Resolved Time COVID - 19 Confirmed 05/31/2022 05/31/2022 023 12:16 AM PRISON LIBRARIAN Respiratory Rule Out - RPA 02/26/2023 02/26/2023 0 02/26/2023 11:31 AM CDT COVID - 19 02/26/2023 02/26/2023 03/08/2023 12:1 6 AM CDT documented as of this encounter Care Teams Marketing Summer Intern Relationship Specialty Start Date End Date Jabier Peck MD #[address] [address] PCP - General Family Medicine 06/22/20 01/16/24 Tad Mcintosh MD [address] [place] [address] PCP - General Family Medicine 01/17/24 Srikanth Adrian MD #[address] [address] Religious Education Coordinator Cardiovascular Disease - Cardiology 02/02/22 08/06/24 Gloria Martinez MD #2 [facility], [address] [address] Consulting Physician Urology 04/30/24 documented as of this encounter
--- OUTSIDE RECORDS SUMMARY | 2025-05-17 18:09 | XMS_ITS | Encounter Summary ---
Author Organization [facility] Address [address] [place] [address] Phone Care Team Providers Care Forensic Dna Analyst Name Role Phone Jabier Peck MD Primary Care Provider [phone] Srikanth Adrian MD Unavailable Tad Romero MD Primary Care Provider [phone] Gloria Martinez MD Unavailable [phone] Reason for Visit * Reason Comments Medication Refill Encounter Details Date Type Department Care Team (Late st Contact Info) Description 07/20/2021 Refill [facility] Medicine [facility] #2 [place] [address] Jabier Peck MD #[address] [address] Medication Refill Social History Tobacco Use Types [...] CDT Gender Identity Male 05/03/2023 12:44 PM CONSTRUCTION CODE ADMINISTRATOR Sexual Orientation Lesbian or Wolff 05/03/2023 12 :44 PM CONSTRUCTION CODE ADMINISTRATOR COVID-19 Exposure Response Date Recorded In the last month, have you been in contact with someone who was confirmed or suspected to have Coronavirus / COVID-19? No / Unsure 07/14/2021 12:17 PM CONSTRUCTION CODE ADMINISTRATOR documented as of this encounter Miscellaneous [...] Rangelradha [place] 08/06/20 Telemedicine Kishore Prieto APRN, FUEL ASSEMBLER [facility] [place] Showing recent visits within past 365 days and meeting all other requirements Future Appointments Date Type Provider Dept 08/01/21 Appointment Jabier Peck MD [facility] Showing future appointments within next 90 days and meeting all other requirements TRUCTION CODE ADMINISTRATOR documented in this encounter Plan of Treatment Upcoming Encounters Date Type Department Care Team (Late st Contact Info) Description 07/14/2025 1:30 PM CONSTRUCTION CODE ADMINISTRATOR Office Visit [facility] - Neurology - [place] #2 [place] [address] Aria Delong APRN, SPEECH AND LANGUAGE ASSISTANT #2 [facility] [place] [address] documented as of this encounter Visit Diagnoses Diagnosis Cervical radiculopathy Brachial neuritis or radiculitis nos documented in this encounter Additional Health Concerns Infection Onset Date Last Indicated Resolved Time COVID - 19 Confirmed 05/31/2022 05/31/2022 023 12:16 AM CONSTRUCTION CODE ADMINISTRATOR Respiratory Rule Out - RPA 02/26/2023 02/26/2023 0 02/26/2023 11:31 AM CDT COVID - 19 02/26/2023 02/26/2023 03/08/2023 12:1 6 AM CDT documented as of this encounter Care Teams Forensic Dna Analyst Relationship Specialty Start Date End Date Jabier Peck MD #[address] [address] PCP - General Family Medicine 06/22/20 01/16/24 Tad Mcintosh MD [address] [place] [address] PCP - General Family Medicine 01/17/24 Srikanth Adrian MD #2 [facility] [address] [place] [address] Quantometer Operator Cardiovascular Disease - Cardiology 02/02/22 08/06/24 Gloria Martinez MD #2 [facility] [address] [place] [address] Consulting Physician Urology 04/30/24 documented as of this encounter
--- OUTSIDE RECORDS SUMMARY | 2025-05-17 18:09 | XMS_ITS | Encounter Summary ---
Author Organization [facility] Address [address] [place] [address] Phone Care Team Providers Care Housing Director Name Role Phone Jabier Peck MD Primary Care Provider [phone] Srikanth Adrian MD Unavailable Tad Romero MD Primary Care Provider [phone] Gloria Martinez MD Unavailable [phone] Reason for Visit * Reason Onset Date Comments Medication Refill Requesting new referral to [facility] 11/10/2022 Encounter Details Date Type Department Care Team (Late st Contact Info) Description 11/10/2022 Refill [facility] - Family Medicine - [place] #2 [place] [id number] Jabier Peck MD #[address] [address] Medication Refill; Requesting new referral to [facility] Social History Tobacco Use Types Packs/Day [...] CDT Gender Identity Male 05/03/2023 12:44 PM PHOTOENGRAVING PHOTOGRAPHER Sexual Orientation Lesbian or Wolff 05/03/2023 12 :44 PM PHOTOENGRAVING PHOTOGRAPHER documented as of this encounter Miscellaneous Notes * Telephone Encounter - Nikky Irby - 11/10/2022 1:42 PM CDT RFC: Tae Kent is requesting a new referral to [facility]. . Please call Tae (relationship to [...] [place] 12/13/21 Telemedicine Kishore Prieto APRN, RICHARD [facility] st Contact Info) Description 07/14/2025 1:30 PM PHOTOENGRAVING PHOTOGRAPHER Office Visit [facility] - [facility]rology - [place] #[address] [place] [address] Aria Delong APRN, STITCHER TAPE CONTROLLED MACHINE #[address] [facility] [place] [address] documented as of this encounter Visit Diagnoses Diagnosis Cervical radiculopathy Brachial neuritis or radiculitis nos documented in this encounter Additional Health Concerns Infection Onset Date Last Indicated Resolved Time Respiratory Rule Out - RPA 02/26/2023 02/26/2023 0 02/26/2023 11:31 AM CDT COVID - 19 02/26/2023 02/26/2023 03/08/2023 12:1 6 AM CDT documented as of this encounter Care Teams Housing Director Relationship Specialty Start Date End Date Jabier Peck MD #2 [facility] [address] [place] [address] PCP - General Family Medicine 06/22/20 01/16/24 Tad Mcintosh MD [address] [place] [address] PCP - General Family Medicine 01/17/24 Srikanth Adrian MD #2 [facility] [address] [place] [address] Harness Puller Cardiovascular Disease - Cardiology 02/02/22 08/06/24 Gloria Martinez MD #2 [facility] [address] [place] [address] Consulting Physician Urology 04/30/24 documented as of this encounter
--- OUTSIDE RECORDS SUMMARY | 2025-05-17 18:09 | XMS_ITS | Encounter Summary ---
Author Organization [facility] Address [address] [place] [address] Phone Care Team Providers Care Coffee Machine Technician Name Role Phone Jabier Peck MD Primary Care Provider [phone] Srikanth Adrian MD Unavailable Tad Romero MD Primary Care Provider [phone] Gloria Martinez MD Unavailable [phone] Reason for Visit * Reason Comments Medication Refill Encounter Details Date Type Department Care Team (Late st Contact Info) Description 03/24/2022 Refill [facility] - Family Medicine [facility] #2 [place] [id number] Kishore Prieto APRN, PREVENTIVE MEDICINE PHYSICIAN #[address] [address] Medication Refill Social History Tobacco Use Types [...] Gender Identity Male 05/03/2023 12:44 PM LICENSED OPTICAL DISPENSER Sexual Orientation Lesbian or Wolff 05/03/2023 12 :44 PM LICENSED OPTICAL DISPENSER COVID-19 Exposure Response Date Recorded In the [...] st Contact Info) Description 07/14/2025 1:30 PM LICENSED OPTICAL DISPENSER Office Visit [facility] - Neurology - [place] #2 [place] [address] Aria Delong, FERRYBOAT DECKHAND, GARAGE HELPER #2 [place] [address] documented as of this encounter Visit Diagnoses Diagnosis Cervical radiculopathy Brachial neuritis or radiculitis nos Lumbar radiculopathy Thoracic or lumbosacral neuritis or radiculitis, unspecified documented in this encounter Additional Health Concerns Infection Onset Date Last Indicated Resolved Time COVID - 19 Confirmed 05/31/2022 05/31/2022 023 12:16 AM LICENSED OPTICAL DISPENSER Respiratory Rule Out - RPA 02/26/2023 02/26/2023 0 02/26/2023 11:31 AM CDT COVID - 19 02/26/2023 02/26/2023 03/08/2023 12:1 6 AM CDT documented as of this encounter Care Teams Coffee Machine Technician Relationship Specialty Start Date End Date Jabier Peck MD #[address] [address] PCP - General Family Medicine 06/22/20 01/16/24 Tad Mcintosh MD [address] [place] [address] PCP - General Family Medicine 01/17/24 Srikanth Adrian MD #[address] [address] Middleware Engineer Cardiovascular Disease - Cardiology 02/02/22 08/06/24 Gloria Martinez MD #[address] [address] Consulting Physician Urology 04/30/24 documented as of this encounter
--- OUTSIDE RECORDS SUMMARY | 2025-05-17 18:09 | XMS_ITS | Encounter Summary ---
Author Organization [facility] Address [address] [place] [address] Phone Care Team Providers Care Tabulating Supervisor Name Role Phone Jabier Peck MD Primary Care Provider [phone] Srikanth Adrian MD Unavailable Tad Romero MD Primary Care Provider [phone] Gloria Martinez MD Unavailable [phone] Reason for Visit * Reason Comments Medication Refill Encounter Details Date Type Department Care Team (Late st Contact Info) Description 06/20/2022 Refill [facility] - Family Medicine [facility] #2 [place] [address] Jabier Peck MD #[address] [address] Medication Refill Social History Tobacco Use Types [...] CDT Gender Identity Male 05/03/2023 12:44 PM GEOLOGIST PETROLEUM Sexual Orientation Lesbian or Wolff 05/03/2023 12 :44 PM GEOLOGIST PETROLEUM COVID-19 Exposure Response Date Recorded In the last 10 days, have yo u been in contact with someone who was confirmed or suspected to have Coronavirus/COVID-19? Yes 05/31/2022 2:12 PM GEOLOGIST PETROLEUM documented as of this encounter Miscellaneous Notes [...] 90 days and meeting all other requirements OGIST PETROLEUM documented in this encounter Plan of Treatment Upcoming Encounters Date Type Department Care Team (Late st Contact Info) Description 07/14/2025 1:30 PM GEOLOGIST PETROLEUM Office Visit [facility] - Neurology - [place] #2 [place] [address] Aria Delong, FOUNDER CHAIRMAN AND CHIEF CREATIVE OFFICER, NUCLEAR MEDICINE TECH #2 [place] [address] documented as of this encounter Visit Diagnoses Diagnosis Cervical radiculopathy Brachial neuritis or radiculitis nos documented in this encounter Additional Health Concerns Infection Onset Date Last Indicated Resolved Time COVID - 19 Confirmed 05/31/2022 05/31/2022 023 12:16 AM GEOLOGIST PETROLEUM Respiratory Rule Out - RPA 02/26/2023 02/26/2023 0 02/26/2023 11:31 AM CDT COVID - 19 02/26/2023 02/26/2023 03/08/2023 12:1 6 AM CDT documented as of this encounter Care Teams Tabulating Supervisor Relationship Specialty Start Date End Date Jabier Peck MD #[address] [address] PCP - General Family Medicine 06/22/20 01/16/24 Tad Mcintosh MD [address] [place] [address] PCP - General Family Medicine 01/17/24 Srikanth Adrian MD #[address] [address] Family Life Counselor Cardiovascular Disease - Cardiology 02/02/22 08/06/24 Gloria Martinez MD #2 [facility] [address] [place] [address] Consulting Physician Urology 04/30/24 documented as of this encounter
--- OUTSIDE RECORDS SUMMARY | 2025-05-17 18:09 | XMS_ITS | Encounter Summary ---
Author Organization [facility] Address [address] [place] [address] Phone Care Team Providers Care Auxiliary Power Equipment Operator Name Role Phone Tad Mcintosh MD Primary Care Provider [phone] Gloria Martinez MD Unavailable [phone] Reason for Visit * Reason Comments Medication Refill Encounter Details Date Type Department Care Team (Late st Contact Info) Description 10/21/2024 Refill [facility] #2 [place] [address] Jabier Peck MD #[address] [address] Medication Refill Social History Tobacco Use Types [...] CDT Gender Identity Male 05/03/2023 12:44 PM JAVA WEB SERVICES DEVELOPER Sexual Orientation Lesbian or Wolff 05/03/2023 12 :44 PM JAVA WEB SERVICES DEVELOPER documented as of this encounter Miscellaneous Notes * Telephone Encounter - Francine Soto RN - 10/22/2024 9:04 AM CDT PCP: Tad Mcintosh MD documented in this encounter Plan of Treatment Upcoming Encounters Date Type Department Care Team (Late st Contact Info) Description 07/14/2025 1:30 PM JAVA WEB SERVICES DEVELOPER [facility] [place] #2 [place] [address] Aria Delong APRN, PHARMACEUTICAL ANALYST #2 [place] [address] documented as of this encounter Visit Diagnoses Not on filedocumented in this encounter Care Teams Auxiliary Power Equipment Operator Relationship Specialty Start Date End Date Tad Mcintosh MD [address] [place] [address] PCP - General Family Medicine 01/17/24 Gloria Martinez MD #[address] [address] Consulting Physician Urology 04/30/24 documented as of this encounter
--- OUTSIDE RECORDS SUMMARY | 2025-05-17 18:09 | XMS_ITS | Encounter Summary ---
Author Organization [facility] Address [address] [place] [address] Phone Care Team Providers Care Development Coordinator Name Role Phone Jabier Peck MD Primary Care Provider [phone] Srikanth Adrian MD Unavailable Tad Romero MD Primary Care Provider [phone] Gloria Martinez MD Unavailable [phone] Encounter Details Date Type Department Care Team (Late st Contact Info) Description 03/21/2023 Telephone [facility] [address] [place] [address] Jabier Peck MD #[address] [address] Social History Tobacco Use Types Packs/Day Years [...] CDT Gender Identity Male 05/03/2023 12:44 PM MAP COLORER Sexual Orientation Lesbian or Wolff 05/03/2023 12 :44 PM MAP COLORER COVID-19 Exposure Response Date Recorded In the [...] st Contact Info) Description 07/14/2025 1:30 PM MAP COLORER [facility] - Neurology - [place] #2 [place] [address] Aria Delong APRN, ARCHITECTURAL DESIGN PROFESSOR #2 [place] [address] documented as of this encounter Visit Diagnoses Not on filedocumented in this encounter Care Teams Development Coordinator Relationship Specialty Start Date End Date Jabier Peck MD #[address] [address] PCP - General Family Medicine 06/22/20 01/16/24 Tad Mcintosh MD [address] [place] [address] PCP - General Family Medicine 01/17/24 Srikanth Adrian MD #2 [facility] [address] [place] [address] Candy Roller Cardiovascular Disease - Cardiology 02/02/22 08/06/24 Gloria Martinez MD #2 [facility] [address] [place] [address] Consulting Physician Urology 04/30/24 documented as of this encounter
--- OUTSIDE RECORDS SUMMARY | 2025-05-17 18:09 | XMS_ITS | Clinical Summary ---
Author Organization [facility] Address [address] [address] Phone Care Team Providers Care Sales Closer Name Role Phone Tad Mcintosh MD Primary Care Provider [phone] Gloria Martinez MD Unavailable [phone] Allergies Active Allergy Reactions Criticality Noted [...] mL 01/13/20 Active Insulin Pen Needle (Pen Robbins) 29G X 12MM Misc As instructed 100 [...] any time in the past 12 m [facility], were you homeless or living in a intermediate (including now)? Patient declined 01/10/2025 [facility] Utilities Answer Date Recorded In the past [...] Gender Identity Male 05/03/2023 12:44 PM APPRENTICE Sexual Orientation Lesbian or Wolff 05/03/2023 12 :44 PM APPRENTICE Last Filed Vital Signs Vital Sign Reading [...] st Contact Info) Description 07/14/2025 1:30 PM APPRENTICE Office Visit [facility] [address] [place] [address] Aria Delong APRN, VEGETABLES COOK [address] [place] [address] Health Maintenance Due Date Last Done Comments [...] CHEST SCREENING WO Routine 05/10/2022 2:52 PM APPRENTICE Personal history of nicotine dependence PODIATRY CONSULT 08/18/2021 12:0 0 AM APPRENTICE from Last 3 Months or Most Recently Relevant to Health Maintenance Results * (ABNORMAL) Hemoglobin A1C w/ Estimated Glucose (01/10/2025 8:13 PM CDT) HGB-A1C 12.4(H) 4.0 - 6.0 % 01/10/2025 8:41 PM CDT [facility] Est Average Glucose 309.2 mg/dL 01/10/2025 8:41 PM CDT [facility] Blood Venipuncture / Unknown 01/10/2025 8:13 PM CDT 01/10/2025 8:22 PM CDT Narrative [facility] - 01/10/2025 8:41 PM CDT HEMOGLOBIN A1C: DIABETIC PATIENTS: WELL-CONTROLLED: 6.2 - 7.0 INTERMEDIATE WELL-CONTROLLED: 7.0 - 9.0 POORLY-CONTROLLED: >9.0 Specimens containing greater than 5% of Hemoglobin F may result in lower than expected % HbA1C results. us Yissel Iniguez APRN, CNP CHEMISTRY ORDERABLES Becky l Result [facility] [address] [place] [address] * (ABNORMAL) CMP (Comprehensive Metabolic Panel) (01/10/2025 8:13 PM CDT) SODIUM 136 136 - 145 mmol/L 01/10/2025 8:43 PM CDT [facility] POTASSIUM 2.9(L) 3.5 - 5.1 mmol/L 01/10/2025 8:43 PM CDT [facility] CHLORIDE 101 98 - 107 mmol/L 01/10/2025 8:43 PM CDT [facility] CO2, VENOUS 23 22 - 30 mmol/L 01/10/2025 8:43 PM CDT [facility] ANION GAP 14.9 <18.0 mmol/L 01/10/2025 8:43 PM CDT [facility] GLUCOSE 319(H) 70 - 99 mg/dL 01/10/2025 8:43 PM CDT [facility] BUN 13 8 - 26 mg/dL 01/10/2025 8:43 PM T [facility] CREATININE, BLOOD 1.41(H) 0.70 - 1.30 mg/dL 01/10/2025 8:43 PM CDT [facility] BUN/CREATININE RATIO 9(L) 12 - 20 ratio 01/10/2025 8:43 PM T [facility] TOTAL PROTEIN 7.2 6.0 - 8.0 g/dL 01/10/2025 8:43 PM CDT [facility] ALBUMIN 4.5 3.5 - 5.0 g/dL 01/10/2025 8:43 PM CDT [facility] A/G RATIO 1.7 1.0 - 2.2 01/10/2025 8:43 PM CDT [facility] CALCIUM 9.6 8.7 - 10.5 mg/dL 01/10/2025 8:43 PM CDT [facility] T BILI 0.5 0.2 - 1.2 mg/dL 01/10/2025 8:43 PM T [facility] SGOT (AST) 20 <43 U/L 01/10/2025 8:43 PM CDT [facility] SGPT (ALT) 40 <56 U/L 01/10/2025 8:43 PM CDT [facility] ALKALINE PHOSPHATASE 142 40 - 150 U/L 01/10/2025 8:43 PM T [facility] GFR, ESTIMATED 59(L) >=60 01/10/2025 8:43 PM T [facility] Comment: Creatinine Clearance is the preferred criteria for selecting drug dose adjustments in renally impaired patients. The GFR is provided as additional pertinent clinical information. GFR is reported in mL/min/1.73 sq m. Calculation based on the Chronic Kidney Disease Epidemiology Collaboration (CKD- EPI) equation refit without adjustment for race. GFR, EST. >60 >=60 025 8:43 PM CDT [facility] GFR, EST. NONAFRICAN 52(L) >=60 01/10/2025 8:43 PM CDT [facility] Blood Venipuncture / Unknown 01/10/2025 8:13 PM CDT 01/10/2025 8:22 PM CDT us Yissel Iniguez TAILING HAND, MANAGER TECHNICAL TRAINING CHEMISTRY ORDERABLES Becky l Result Performing Organization Address [facility] Co de Phone Number [facility] [address] [place] [address] * PSA SCREEN (02/26/2023 12:32 PM CDT) PSA SCREEN, TOTAL 0.60 <4.00 ng/mL 02/26/2023 1:45 PM CDT [facility] Blood Venipuncture / Unknown 02/26/2023 12:32 PM CDT 02/26/2023 12:57 PM CDT Narrative [facility] - 02/26/2023 1:45 PM CDT The DIRECTOR OF PLANNING Total PSA assay is a Chemiluminescent Microparticle Immunoassay (CMIA) for the quantitative determination of total PSA (both free PSA and PSA complexed to [id number]) in human serum. us Kishore Prieto TAILING HAND, MANAGER TECHNICAL TRAINING CHEMISTRY ORDERA BLES Final Result Performing Organization Address [facility]/ZIP Co de Phone Number [facility] [address] [place] [address] * CT CHEST SCREENING WO (05/10/2022 2:52 PM APPRENTICE) Anatomical Region Laterality Modality Chest N/A Computed Tomogra phy 05/12/2022 9:10 AM APPRENTICE Impressions 05/12/2022 9:13 AM APPRENTICE IMPRESSION: 1. Background of mild pulmonary emphysema. 2. Scattered tiny bilateral pulmonary nodules. No suspicious nodularity. 3. Mild coronary artery calcifications. 4. Additional findings as above. Lung-RADS v1.1 category 2: Benign appearance or behavior. Recommendation: Low dose CT of chest in 12 months. Narrative 05/12/2022 9:13 AM APPRENTICE EXAM DESCRIPTION: CT CHEST SCREENING WO REASON [...] Mallorie Gomez M.D. TW: KRISTIN Report ID: [id number] Reading Location: [id number] Procedure Note Mallorie Gomez MD - 05/12/2022 [...] Mallorie Gomez M.D. TW: KRISTIN Report ID: [id number] Reading Location: [id number] IMPRESSION: 1. Background of mild pulmonary emphysema. 2. Scattered tiny bilateral pulmonary nodules. No suspicious nodularity. 3. Mild coronary artery calcifications. 4. Additional findings as above. Lung-RADS v1.1 category 2: Benign appearance or behavior. Recommendation: Low dose CT of chest in 12 months. us Kishore Ad Conner TAILING HAND, MANAGER TECHNICAL TRAINING IMG CT ORDERABLE S Final Result * PODIATRY CONSULT (08/18/2021 12:00 AM APPRENTICE) 08/18/2021 us Not On File Provider GENERIC SCAN ORDERS CONSULT Final Result SCAN from Last 3 Months or Most Recently Relevant to Health Maintenance Insurance MEDICAID [place]IC[place] [address] [facility] Advance Directives * Full Code (Latest Code [...] measures to stabilize the patient. Care Teams Sales Closer Relationship Specialty Start Date End Date Tad Mcintosh MD [address] [place] [address] PCP - General Family Medicine 01/17/24 Gloria Martinez MD [address] [address] Consulting Physician Urology 04/30/24
--- OUTSIDE RECORDS SUMMARY | 2025-05-17 18:09 | XMS_ITS | Encounter Summary ---
Author Organization [facility] Address [address] [place] [address] Phone Care Team Providers Care Manager Pest Name Role Phone Tad Mcintosh MD Primary Care Provider [phone] Gloria Martinez MD Unavailable [phone] Reason for Visit * Reason Comments Medication Refill Encounter Details Date Type Department Care Team (Late st Contact Info) Description 10/20/2024 [facility]ill [facility] [address] [place] [id number] Jabier Peck MD #[address] [address] Medication Refill Social History Tobacco Use Types [...] CDT Gender Identity Male 05/03/2023 12:44 PM LEARNING SUPPORT AIDE Sexual Orientation Lesbian or Wolff 05/03/2023 12 :44 PM LEARNING SUPPORT AIDE documented as of this encounter Miscellaneous Notes * Telephone Encounter - Francine Soto RN - 10/21/2024 8:22 AM CDT PCP: Tad Mcintosh MD documented in this encounter Plan of Treatment Upcoming Encounters Date Type Department Care Team (Late st Contact Info) Description 07/14/2025 1:30 PM LEARNING SUPPORT AIDE [facility] [place] [address] [place] [address] Aria Delong APRN, GATE GUARD [address] [place] [address] documented as of this encounter Visit Diagnoses Not on filedocumented in this encounter Care Teams Manager Pest Relationship Specialty Start Date End Date Tad Mcintosh MD [address] [place] [address] PCP - General Family Medicine 01/17/24 Gloria Martinez MD #[address] [address] Consulting Physician Urology 04/30/24 documented as of this encounter
--- OUTSIDE RECORDS SUMMARY | 2025-05-17 18:09 | XMS_ITS | Encounter Summary ---
Author Organization [facility] Address [address] [place] [address] Phone Care Team Providers Care Pin Drafting Machine Tender Name Role Phone Jabier Peck MD Primary Care Provider [phone] Srikanth Adrian MD Unavailable Tad Romero MD Primary Care Provider [phone] Gloria Martinez MD Unavailable [phone] Reason for Visit * Reason Comments Medication Refill Encounter Details Date Type Department Care Team (Late st Contact Info) Description 05/14/2023 [facility]ill [facility] [address] [place] [phone] Jabier Peck MD #[address] [address] Medication Refill Social History Tobacco Use Types [...] CDT Gender Identity Male 05/03/2023 12:44 PM NAIL MACHINE OPERATOR Sexual Orientation Lesbian or Wolff 05/03/2023 12 :44 PM NAIL MACHINE OPERATOR documented as of this encounter [...] 90 days and meeting all other requirements MACHINE OPERATOR documented in this encounter Plan of Treatment Upcoming Encounters Date Type Department Care Team (Late st Contact Info) Description 07/14/2025 1:30 PM NAIL MACHINE OPERATOR Office Visit [facility] - [facility]rology - [place] [address] [facility] [place] [address] Aria Delong APRN, AUTOMOTIVE FUEL INJECTION SERVICER [address] [facility] [place] [address] documented as of this encounter Visit Diagnoses Not on filedocumented in this encounter Care Teams Pin Drafting Machine Tender Relationship Specialty Start Date End Date Jabier Peck MD #2 [facility] [address] [place] [address] PCP - General Family Medicine 06/22/20 01/16/24 Tad Mcintosh MD [address] [place] [address] PCP - General Family Medicine 01/17/24 Srikanth Adrian MD #2 [facility] [address] [place] [address] Broach Operator Cardiovascular Disease - Cardiology 02/02/22 08/06/24 Gloria [facility] MD [facility]2 [facility] [address] [place] [address] Consulting Physician Urology 04/30/24 documented as of this encounter
--- OUTSIDE RECORDS SUMMARY | 2025-05-17 18:09 | XMS_ITS | Encounter Summary ---
Author Organization [facility] Address [address] [place] [address] Phone Care Team Providers Care Senior Search Marketing Analyst Name Role Phone Jabier Peck MD Primary Care Provider [phone] Srikanth Adrian MD Unavailable Tad Romero MD Primary Care Provider [phone] Gloria Martinez MD Unavailable [phone] Reason for Visit * Reason Comments Medication Refill Encounter Details Date Type Department Care Team (Late st Contact Info) Description 02/27/2023 Refill [facility] Family [facility] #2 [place] [phone] Jabier Peck MD #[address] [address] Medication Refill Social History Tobacco [...] Gender Identity Male 05/03/2023 12:44 PM LABORER SHIPYARD Sexual Orientation Lesbian or Wolff 05/03/2023 12 :44 PM LABORER SHIPYARD COVID-19 Exposure Response Date Recorded In the [...] st Contact Info) Description 07/14/2025 1:30 PM LABORER SHIPYARD Office Visit [facility] - Neurology - [place] [address] [place] [address] Aria Delong, FINE JEWELRY SALES ASSOCIATE, VETERANS SERVICES SPECIALIST [address] [place] [address] documented as of this encounter Visit Diagnoses Diagnosis Cervical radiculopathy Brachial neuritis or radiculitis nos documented in this encounter Additional Health Concerns Infection Onset Date Last Indicated Resolved Time COVID - 19 02/26/2023 02/26/2023 03/08/2023 12:1 6 AM CDT documented as of this encounter Care Teams Senior Search Marketing Analyst Relationship Specialty Start Date End Date Jabier Peck MD #2 [facility] [address] [place] [address] PCP - General Family Medicine 06/22/20 01/16/24 Tad Mcintosh MD [address] [place] [address] PCP - General Family Medicine 01/17/24 Srikanth Adrian MD #2 [facility] [address] [place] [address] Traffic Or System Dispatcher Cardiovascular Disease - Cardiology 02/02/22 08/06/24 Gloria Martinez MD #2 [facility] [address] [place] [address] Consulting Physician Urology 04/30/24 documented as of this encounter
--- OUTSIDE RECORDS SUMMARY | 2025-05-17 18:09 | XMS_ITS | Encounter Summary ---
Author Organization [facility] Address [address] [place] [address] Phone Care Team Providers Care Patrol Inspector Name Role Phone Jabier Peck MD Primary Care Provider [phone] Srikanth Adrian MD Unavailable Tad Romero MD Primary Care Provider [phone] Gloria Martinez MD Unavailable [phone] Reason for Visit * Reason Comments Medication Refill Encounter Details Date Type Department Care Team (Late st Contact Info) Description 12/11/2021 Refill [facility] - Family Medicine [facility] #2 [place] [address] Jabier Peck MD #[address] [address] Medication Refill Social History Tobacco Use Types [...] CDT Gender Identity Male 05/03/2023 12:44 PM BOTTLING MACHINE OPERATOR Sexual Orientation Lesbian or Wolff 05/03/2023 12 :44 PM BOTTLING MACHINE OPERATOR COVID-19 Exposure Response Date Recorded [...] Dept 08/01/21 Office Visit Jabier Peck MD [facility] [place] 04/29/21 Office Visit Jabier Peck MD [facility] 03/16/21 Office Visit Kishore Prieto APRN, RICHARD [facility] [place] Showing recent visits within past 365 days and meeting all other requirements Future Appointments Date Type Provider Dept 12/13/21 Appointment Kishore Prieto APRN, RICHARD [facility] [place] Showing future appointments within next 90 days and meeting all other requirements documented in this encounter Plan of Treatment Upcoming Encounters Date Type Department Care Team (Late st Contact Info) Description 07/14/2025 1:30 PM BOTTLING MACHINE OPERATOR Office Visit [facility] - Neurology - [place] [address] [place] [address] Aria Delong APRN, NET MANAGER #[address] [place] [address] documented as of this encounter Visit Diagnoses Diagnosis Cervical radiculopathy Brachial neuritis or radiculitis nos documented in this encounter Additional Health Concerns Infection Onset Date Last Indicated Resolved Time COVID - 19 Confirmed 05/31/2022 05/31/2022 023 12:16 AM BOTTLING MACHINE OPERATOR Respiratory Rule Out - RPA 02/26/2023 02/26/2023 0 02/26/2023 11:31 AM CDT COVID - 19 02/26/2023 02/26/2023 03/08/2023 12:1 6 AM CDT documented as of this encounter Care Teams Patrol Inspector Relationship Specialty Start Date End Date Jabier Peck MD #2 [facility] [address] [place] [address] PCP - General Family Medicine 06/22/20 01/16/24 Tad Mcintosh MD [address] [place] [address] PCP - General Family Medicine 01/17/24 Srikanth Adrian MD #2 [facility] [address] [place] [address] Land Leasing Information Clerk Cardiovascular Disease - Cardiology 02/02/22 08/06/24 Gloria Martinez MD #[address] [facility] [address] [place] [address] Consulting Physician Urology 04/30/24 documented as of this encounter
[2025-05-17 18:21] LABS: Alanine Aminotransferase 38 U/L (6-50); Albumin Level 4.4 g/dL (3.5-5.1); Alkaline Phosphatase 81 U/L (38-126); Anion Gap 10 mmol/L (4-12); Aspartate Amino Transferase 34 U/L (17-59); Bilirubin,Total 0.3 mg/dL (0.2-1.3); Blood Urea Nitrogen 19 mg/dL (9-20); CRP < 0.5 mg/dL (<1.0); Calcium 9.5 mg/dL (8.4-10.2); Carbon Dioxide 25 mmol/L (22-30); Chloride 109 mmol/L (98-107); Creatine Kinase 146 U/L (55-170); Estimated CRCL calculation 62 ml/min; Estimated Glomerular Filt Rate 49; Glucose 141 mg/dL (65-110); Magnesium 2.0 mg/dL (1.6-2.3); Osmolality Calculated 302 mOsm/kg (285-295); Potassium 3.9 mmol/L (3.4-5.0); Sodium 144 mmol/L (137-145); Total Protein 6.6 g/dL (6.3-8.2)
[2025-05-17 18:30] LABS: Troponin I < 0.012 ng/mL (0.000-0.034)
--- NOTE | 2025-05-17 18:37 | PC.NURSE ---
pt resting per cot. no complaints voiced at this time. informed of awaiting lab results.
[2025-05-17 18:48] LABS: Thyroid Stimulating Hormone 0.967 uIU/mL (0.465-4.680)
--- NOTE | 2025-05-17 18:59 | PC.NURSE ---
jaswinder germain report
--- NOTE | 2025-05-17 19:07 | PC.NURSE ---
ASSUMED CARE. REPORT RECEIVED FROM BHARAT CASTELLON. PATIENT IS CURRENTLY RESTING ON STRETCHER. HAS HIS CELL PHONE IN HIS HANDS. WOB NON LABORED. PATIENT HAS CALL LIGHT IN REACH.
[2025-05-17 19:20] VITALS: BP 133/84; PULSE 82; RESP 18; O2SAT 97
[2025-05-17 19:31] VITALS: BP 146/88; PULSE 78; RESP 20; O2SAT 96
== END 2025-05-17 19:48 | disposition home or self-care (01) ==
PROVIDERS: Emergency Provider Emergency Medicine; PCP Family Medicine
DX: R53.1 Weakness (principal); Z86.73 Personal history of transient ischemic attack (TIA), and cerebral infarction without residual deficits; Z87.891 Personal history of nicotine dependence
CPT/HCPCS: 36415; 70450; 80053; 81003; 82550; 82948; 83735; 84443; 84484; 85025; 85652; 86140; 93005; 99284; J7512

== ENCOUNTER 2025-05-26 15:05 | Outpatient (CLI) | payer MEDICARE, MEDICAID, SELFPAY ==
--- NOTE | ~2025-05-26 | XR_ITS ---
EXAMINATION: XR hip BI 2V w AP pelvis, 05/26/2025 15:09 SUPERVISOR STAVE CUTTING HISTORY: M25.551 - Pain in right hip COMPARISON: No comparisons available. Findings: No acute fracture or malalignment. No significant degenerative changes. Soft tissues unremarkable. Impression: No acute fracture or malalignment. Reviewed, dictated and finalized at location P. RVISOR STAVE CUTTING Impression: No acute fracture or malalignment.
== END 2025-05-26 15:06 | disposition home or self-care (01) ==
PROVIDERS: PCP Family Medicine; Visit Provider Family Medicine
DX: M25.552 Pain in left hip (principal); M25.551 Pain in right hip
CPT/HCPCS: 73521

== ENCOUNTER 2025-06-05 12:37 | Outpatient (CLI) | payer MEDICARE, MEDICAID, SELFPAY ==
--- OUTSIDE RECORDS SUMMARY | 2025-06-05 12:46 | XMS_ITS | Encounter Summary ---
Author Organization [facility] Address [address] [place] [address] Phone Care Team Providers Care Inside Sales Account Representative Name Role Phone Jabier Peck MD Primary Care Provider [phone] Srikanth Adrian MD Unavailable Tad Romero MD Primary Care Provider [phone] Gloria Martinez MD Unavailable [phone] Reason for Visit * Reason Comments Medication Refill Encounter Details Date Type Department Care Team (Late st Contact Info) Description 09/22/2021 Refill [facility] - Family Medicine [facility] #2 [place] [address] Jabier Peck MD #[address] [address] Medication Refill Social History Tobacco Use Types [...] CDT Gender Identity Male 05/03/2023 12:44 PM HIDE PULLER Sexual Orientation Lesbian or Wolff 05/03/2023 12 :44 PM HIDE PULLER COVID-19 Exposure Response Date Recorded In [...] Provider Dept 09/27/21 Appointment Kishore Prieto APRN, CERTIFIED NOVELL ADMINISTRATOR [facility] 10/31/21 Appointment Jabier Peck MD [facility] Showing future appointments within next 90 days and meeting all other requirements documented in this encounter Plan of Treatment Upcoming Encounters Date Type Department Care Team (Late st Contact Info) Description 07/14/2025 1:30 PM HIDE PULLER Office Visit [facility] - Neurology - [place] #[address] [place] [address] Aria Delong, PART TIME FLEXIBLE CLERK, LIMOUSINE AND HEARSE UPHOLSTERER #[address] [place] [address] documented as of this encounter Visit Diagnoses Diagnosis Cervical radiculopathy Brachial neuritis or radiculitis nos documented in this encounter Additional Health Concerns Infection Onset Date Last Indicated Resolved Time COVID - 19 Confirmed 05/31/2022 05/31/2022 023 12:16 AM HIDE PULLER Respiratory Rule Out - RPA 02/26/2023 02/26/2023 0 02/26/2023 11:31 AM CDT COVID - 19 02/26/2023 02/26/2023 03/08/2023 12:1 6 AM CDT documented as of this encounter Care Teams Inside Sales Account Representative Relationship Specialty Start Date End Date Jabier Peck MD #[address] [address] PCP - General Family Medicine 06/22/20 01/16/24 Tad Mcintosh MD [address] [place] [address] PCP - General Family Medicine 01/17/24 Srikanth Adrian MD #2 [facility] [address] [place] [address] Home Health Care Case Manager Cardiovascular Disease - Cardiology 02/02/22 08/06/24 Gloria Martinez MD #2 [facility] [address] [place] [address] Consulting Physician Urology 04/30/24 documented as of this encounter
--- OUTSIDE RECORDS SUMMARY | 2025-06-05 12:46 | XMS_ITS | Encounter Summary ---
Author Organization [facility] Address [address] [place] [address] Phone Care Team Providers Care Special Duty Nurse Name Role Phone Srikanth Adrian MD Unavailable Tad Romero MD Primary Care Provider [phone] Gloria Martinez MD Unavailable [phone] Reason for Visit * Reason Comments Medication Refill Encounter Details Date Type Department Care Team (Late st Contact Info) Description 03/15/2024 Refill [facility] Family [facility] #2 [place] [address] Kishore Prieto APRN, GAS CUTTING MACHINE OPERATOR #[address] [address] Medication Refill Social History Tobacco Use Types [...] CDT Gender Identity Male 05/03/2023 12:44 PM BATTER MIXER HELPER Sexual Orientation Lesbian or Wolff 05/03/2023 12 :44 PM BATTER MIXER HELPER documented as of this encounter Miscellaneous Notes * Telephone Encounter - Francine Soto RN - 03/17/2024 12:59 PM CDT PCP Tad Mcintosh MD documented in this encounter Plan of Treatment Upcoming Encounters Date Type Department Care Team (Late st Contact Info) Description 07/14/2025 1:30 PM BATTER MIXER HELPER Office Visit [facility] - Neurology - [place] #[address] [place] [address] Aria Delong APRN, COLLEGE DIRECTOR #[address] [place] [address] documented as of this encounter Visit Diagnoses Not on filedocumented in this encounter Care Teams Special Duty Nurse Relationship Specialty Start Date End Date Tad Mcintosh MD [address] [place] [address] PCP - General Family Medicine 01/17/24 Srikanth Adrian MD Unhairing Inspector Cardiovascular Disease - Cardiology 02/02/22 08/06/24 Gloria Martinez MD #[address] [address] Consulting Physician Urology 04/30/24 documented as of this encounter
--- OUTSIDE RECORDS SUMMARY | 2025-06-05 12:46 | XMS_ITS | Encounter Summary ---
Author Organization [facility] Address [address] [place] [address] Phone Care Team Providers Care First Calender Worker Name Role Phone Jabier Peck MD Primary Care Provider [phone] Srikanth Adrian MD Unavailable Tad Romero MD Primary Care Provider [phone] Gloria Martinez MD Unavailable [phone] Reason for Visit * Reason Onset Date Comments Medication Refill 10/27/2021 Encounter Details Date Type Department Care Team (Late st Contact Info) Description 10/27/2021 Refill [facility] #2 [place] [address] Jabier Peck MD #[address] [address] Medication Refill Social History Tobacco Use Types [...] CDT Gender Identity Male 05/03/2023 12:44 PM TREE CLIMBER Sexual Orientation Lesbian or Wolff 05/03/2023 12 :44 PM TREE CLIMBER documented as of this encounter Miscellaneous Notes [...] 11/16/20 Office Visit Kishore Prieto APRN, RICHARD [facility] [place] Showing recent visits within past 365 [...] st Contact Info) Description 07/14/2025 1:30 PM TREE CLIMBER [facility] [place] [address] [place] [address] Aria Delong, ACADEMIC AFFAIRS VICE PRESIDENT, FELLER MACHINE OPERATOR [address] [place] [address] documented as of this encounter Visit Diagnoses Not on filedocumented in this encounter Additional Health Concerns Infection Onset Date Last Indicated Resolved Time COVID - 19 Confirmed 05/31/2022 05/31/2022 023 12:16 AM TREE CLIMBER Respiratory Rule Out - RPA 02/26/2023 02/26/2023 0 02/26/2023 11:31 AM CDT COVID - 19 02/26/2023 02/26/2023 03/08/2023 12:1 6 AM CDT documented as of this encounter Care Teams First Calender Worker Relationship Specialty Start Date End Date Jabier Peck MD #2 [facility] [address] [place] [address] PCP - General Family Medicine 06/22/20 01/16/24 Tad Mcintosh MD [address] [place] [address] PCP - General Family Medicine 01/17/24 Srikanth Adrian MD #2 [facility] [address] [place] [address] Hospital Food Service Worker Cardiovascular Disease - Cardiology 02/02/22 08/06/24 Gloria Martinez MD #2 [facility] [address] [place] [address] Consulting Physician Urology 04/30/24 documented as of this encounter
--- OUTSIDE RECORDS SUMMARY | 2025-06-05 12:46 | XMS_ITS | Encounter Summary ---
Author Organization [facility] Address [address] [place] [address] Phone Care Team Providers Care Visual And Stock Associate Name Role Phone Jabier Peck MD Primary Care Provider [phone] Srikanth Adrian MD Unavailable Tad Romero MD Primary Care Provider [phone] Gloria Martinez MD Unavailable [phone] Reason for Visit * Reason Comments Medication Refill Encounter Details Date Type Department Care Team (Late st Contact Info) Description 03/19/2023 Refill [facility] - Family Medicine [facility] #2 [place] [address] Jabier Peck MD #[address] [address] Medication Refill Social History Tobacco Use Types [...] Gender Identity Male 05/03/2023 12:44 PM INTERACTIVE VIDEO TECHNICIAN Sexual Orientation Lesbian or Wolff 05/03/2023 12 :44 PM INTERACTIVE VIDEO TECHNICIAN COVID-19 Exposure Response Date Recorded In [...] [facility] 05/03/22 Telemedicine Jabier Peck MD [facility] [place] Showing recent visits within past 365 days and meeting all other requirements Future Appointments No visits were found meeting these conditions. Showing future appointments within next 90 days and meeting all other requirements documented in this encounter Plan of Treatment Upcoming Encounters Date Type Department Care Team (Late st Contact Info) Description 07/14/2025 1:30 PM INTERACTIVE VIDEO TECHNICIAN Office Visit [facility] - Neurology - [place] #[address] [place] [address] Aria Delong APRN, BALLOON SANDER #2 [place] [address] documented as of this encounter Visit Diagnoses Diagnosis Cervical radiculopathy Brachial neuritis or radiculitis nos Lumbar radiculopathy Thoracic or lumbosacral neuritis or radiculitis, unspecified documented in this encounter Care Teams Visual And Stock Associate Relationship Specialty Start Date End Date Jabier Peck MD #2 [facility] [address] [place] [address] PCP - General Family Medicine 06/22/20 01/16/24 Tad Mcintosh MD [address] [place] [address] PCP - General Family Medicine 01/17/24 Srikanth Adrian MD #2 [facility] [address] [place] [address] [employer]ards Cardiovascular Disease - Cardiology 02/02/22 08/06/24 Gloria Martinez MD #[address] [facility] [address] [place] [address] Consulting Physician Urology 04/30/24 documented as of this encounter
--- OUTSIDE RECORDS SUMMARY | 2025-06-05 12:46 | XMS_ITS | Encounter Summary ---
Author Organization [facility] Address [address] [place] [address] Phone Care Team Providers Care Golf Club Repairer Name Role Phone Srikanth Adrian MD Unavailable Tad Romero MD Primary Care Provider [phone] Gloria Martinez MD Unavailable [phone] Reason for Visit * Reason Comments Medication Refill Encounter Details Date Type Department Care Team (Late st Contact Info) Description 07/26/2024 Refill [facility] - Family Medicine [facility] #2 [place] [address] Jabier Peck MD #[address] [address] Medication Refill Social History Tobacco Use Types [...] CDT Gender Identity Male 05/03/2023 12:44 PM FIRER PORTABLE BOILER Sexual Orientation Lesbian or Wolff 05/03/2023 12 :44 PM FIRER PORTABLE BOILER documented as of this encounter Miscellaneous Notes * Telephone Encounter - Sheyla Burgess RN - 07/28/2024 10:39 AM FIRER PORTABLE BOILER Changed PCPs to Tad Mcintosh MD R PORTABLE BOILER * Telephone Encounter - Sheyla Burgess RN - 07/28/2024 10:39 AM FIRER PORTABLE BOILER Now seeing Tad Mcintosh MD R PORTABLE BOILER * Telephone Encounter - Sheyla Burgess RN - 07/28/2024 10:38 AM FIRER PORTABLE BOILER Needs OV. Last seen April 2023. R PORTABLE BOILER documented in this encounter Plan of Treatment Upcoming Encounters Date Type Department Care Team (Late st Contact Info) Description 07/14/2025 1:30 PM FIRER PORTABLE BOILER Office Visit [facility] - Neurology [facility] #2 [place] [address] Aria Delong APRN, CLAM SORTER #2 [place] [address] documented as of this encounter Visit Diagnoses Not on filedocumented in this encounter Care Teams Golf Club Repairer Relationship Specialty Start Date End Date Tad Mcintosh MD [address] [place] [address] PCP - General Family Medicine 01/17/24 Srikanth Adrian MD Liaison Officer Cardiovascular Disease - Cardiology 02/02/22 08/06/24 Gloria Martinez MD #2 [place] [address] Consulting Physician Urology 04/30/24 documented as of this encounter
--- OUTSIDE RECORDS SUMMARY | 2025-06-05 12:46 | XMS_ITS | Clinical Summary ---
Author Organization [facility] Address [address] [address] Phone Care Team Providers Care Industrial Analyst Name Role Phone Tad Mcintosh MD Primary Care Provider [phone] Gloria Martinez MD Unavailable [phone] Allergies Active Allergy Reactions Criticality Noted [...] mL 01/13/20 Active Insulin Pen Needle (Pen Barnard) 29G X 12MM Misc As instructed 100 [...] any time in the past 12 m [facility], were you homeless or living in a [facility] (including now)? Patient declined 01/10/2025 [facility] Utilities Answer Date Recorded In the past [...] CDT Gender Identity Male 05/03/2023 12:44 PM BENCH ASSEMBLER BATTERY Sexual Orientation Lesbian or Wolff 05/03/2023 12 :44 PM BENCH ASSEMBLER BATTERY Last Filed Vital Signs Vital Sign Reading [...] st Contact Info) Description 07/14/2025 1:30 PM BENCH ASSEMBLER BATTERY Office Visit [facility] - Neurology [facility] #2 [place] [address] Aria Delong APRN, PRIZE COORDINATOR #2 [place] [address] Health Maintenance Due Date Last Done Comments [...] 02/26/2023, 12/16, 07/07/2020 Human Papillomavirus (HPV) Immunization (No Doses Required) Completed Meningococcal Immunization (ACWY) Aged Out No longer [...] CHEST SCREENING WO Routine 05/10/2022 2:52 PM BENCH ASSEMBLER BATTERY Personal history of nicotine dependence PODIATRY CONSULT 08/18/2021 12:0 0 AM BENCH ASSEMBLER BATTERY from Last 3 Months or Most Recently Relevant to Health Maintenance Results * (ABNORMAL) Hemoglobin A1C w/ Estimated Glucose (01/10/2025 8:13 PM CDT) HGB-A1C 12.4(H) 4.0 - 6.0 % 01/10/2025 8:41 PM CDT [facility] Est Average Glucose 309.2 mg/dL 01/10/2025 8:41 PM CDT [facility] Blood Venipuncture / Unknown 01/10/2025 8:13 PM CDT 01/10/2025 8:22 PM CDT Narrative [facility] - 01/10/2025 8:41 PM CDT HEMOGLOBIN A1C: DIABETIC PATIENTS: WELL-CONTROLLED: 6.2 - 7.0 INTERMEDIATE WELL-CONTROLLED: 7.0 - 9.0 POORLY-CONTROLLED: >9.0 Specimens containing greater than 5% of Hemoglobin F may result in lower than expected % HbA1C results. us Yissel Iniguez APRN, CNP CHEMISTRY ORDERABLES Becky cervantes Result [facility] [address] [place] [address] * (ABNORMAL) CMP (Comprehensive Metabolic Panel) (01/10/2025 8:13 PM CDT) SODIUM 136 136 - 145 mmol/L 01/10/2025 8:43 PM CDT [facility] POTASSIUM 2.9(L) 3.5 - 5.1 mmol/L 01/10/2025 8:43 PM CDT [facility] CHLORIDE 101 98 - 107 mmol/L 01/10/2025 8:43 PM CDT [facility] CO2, VENOUS 23 22 - 30 mmol/L 01/10/2025 8:43 PM CDT [facility] ANION GAP 14.9 <18.0 mmol/L 01/10/2025 8:43 PM CDT [facility] GLUCOSE 319(H) 70 - 99 mg/dL 01/10/2025 8:43 PM CDT [facility] BUN 13 8 - 26 mg/dL 01/10/2025 8:43 PM T [facility] CREATININE, BLOOD 1.41(H) 0.70 - 1.30 mg/dL 01/10/2025 8:43 PM CDT [facility] BUN/CREATININE RATIO 9(L) 12 - 20 ratio 01/10/2025 8:43 PM T [facility] TOTAL PROTEIN 7.2 6.0 - 8.0 g/dL 01/10/2025 8:43 PM T [facility] ALBUMIN 4.5 3.5 - 5.0 g/dL 01/10/2025 8:43 PM T [facility] A/G RATIO 1.7 1.0 - 2.2 01/10/2025 8:43 PM CDT [facility] CALCIUM 9.6 8.7 - 10.5 mg/dL 01/10/2025 8:43 PM T [facility] T BILI 0.5 0.2 - 1.2 mg/dL 01/10/2025 8:43 PM T [facility] SGOT (AST) 20 <43 U/L 01/10/2025 8:43 PM T [facility] SGPT (ALT) 40 <56 U/L 01/10/2025 8:43 PM T [facility] ALKALINE PHOSPHATASE 142 40 - 150 U/L 01/10/2025 8:43 PM T [facility] GFR, ESTIMATED 59(L) >=60 01/10/2025 8:43 PM [facility] Comment: Creatinine Clearance is the preferred criteria for selecting drug dose adjustments in renally impaired patients. The GFR is provided as additional pertinent clinical information. GFR is reported in mL/min/1.73 sq m. Calculation based on the Chronic Kidney Disease Epidemiology Collaboration (CKD- EPI) equation refit without adjustment for race. GFR, EST. >60 >=60 025 8:43 PM CDT [facility] GFR, EST. NONAFRICAN 52(L) >=60 01/10/2025 8:43 PM CDT [facility] Blood Venipuncture / Unknown 01/10/2025 8:13 PM CDT 01/10/2025 8:22 PM CDT Yissel Iniguez [facility] [facility], ASSOCIATE PROFESSOR OF BIOSTATISTICS CHEMISTRY ORDERABLES Becky l Result Performing Organization Address City/[facility] Co de Phone Number [facility] [address] [place] [address] * PSA SCREEN (02/26/2023 12:32 PM CDT) PSA SCREEN, TOTAL 0.60 <4.00 ng/mL 02/26/2023 1:45 PM CDT [facility] Blood Venipuncture / Unknown 02/26/2023 12:32 PM CDT 02/26/2023 12:57 PM CDT Narrative [facility] - 02/26/2023 1:45 PM CDT The FINISHING RANGE OPERATOR Total PSA assay is a Chemiluminescent Microparticle Immunoassay (CMIA) for the quantitative determination of total PSA (both free PSA and PSA complexed to [id number]) in human serum. us Kishore Prieto [employer], ASSOCIATE PROFESSOR OF BIOSTATISTICS CHEMISTRY ORDERA BLES Final Result Performing Organization Address [facility]/ZIP Co de Phone Number [facility] [address] [place] [address] * CT CHEST SCREENING WO (05/10/2022 2:52 PM BENCH ASSEMBLER BATTERY) Anatomical Region Laterality Modality Chest N/A Computed Tomogra phy 05/12/2022 9:10 AM BENCH ASSEMBLER BATTERY Impressions 05/12/2022 9:13 AM BENCH ASSEMBLER BATTERY IMPRESSION: 1. Background of mild pulmonary emphysema. 2. Scattered tiny bilateral pulmonary nodules. No suspicious nodularity. 3. Mild coronary artery calcifications. 4. Additional findings as above. Lung-RADS v1.1 category 2: Benign appearance or behavior. Recommendation: Low dose CT of chest in 12 months. Narrative 05/12/2022 9:13 AM BENCH ASSEMBLER BATTERY EXAM DESCRIPTION: CT CHEST SCREENING WO REASON [...] Mallorie Gomez M.D. TW: KRISTIN Report ID: [id number] Reading Location: [place] [address] Procedure Note Mallorie Gomez MD - 05/12/2022 [...] Mallorie Gomez M.D. TW: KRISTIN Report ID: [id number] Reading Location: [place] [address] IMPRESSION: 1. Background of mild pulmonary emphysema. 2. Scattered tiny bilateral pulmonary nodules. No suspicious nodularity. 3. Mild coronary artery calcifications. 4. Additional findings as above. Lung-RADS v1.1 category 2: Benign appearance or behavior. Recommendation: Low dose CT of chest in 12 months. us Kishore Prieto APRN, RICHARD IMG CT ORDERABLE S Final Result * PODIATRY CONSULT (08/18/2021 12:00 AM BENCH ASSEMBLER BATTERY) 08/18/2021 us Not On File Provider GENERIC SCAN ORDERS CONSULT Final Result SCAN from Last 3 Months or Most Recently Relevant to Health Maintenance Insurance MEDICAID [place] MEDICARE C [facility] Advance Directives * Full Code (Latest Code Status on File) Date Activated Date Inactivated Comments 01/10/2025 9:15 PM CPR-Full Treat ment: FULL ARREST: Attempt Resuscitation/CPR wit intubation and mechanical ventilation. PRE-ARREST: Use entire range of life support measures to stabilize the patient. * Full Code Date Activated Date Inactivated Comments 09/18/2021 1:05 AM 09/21/2021 2:51 PM CPR-Full Mary tment: FULL ARREST: Attempt Resuscitation/CPR wit intubation and mechanical ventilation. PRE-ARREST: Use entire range of life support measures to stabilize the patient. * Full Code Date Activated Date Inactivated Comments 12/14/2019 12:59 AM 12/15/2019 4:50 PM CPR-Full Tr eatment: FULL ARREST: Attempt Resuscitation/CPR wit intubation and mechanical ventilation. PRE-ARREST: Use entire range of life support measures to stabilize the patient. Care Teams Industrial Analyst Relationship Specialty Start Date End Date Tad Mcintosh MD [address] [place] [address] PCP - General Family Medicine 01/17/24 Gloria Martinez MD #[address] [address] Consulting Physician Urology 04/30/24
--- OUTSIDE RECORDS SUMMARY | 2025-06-05 12:46 | XMS_ITS ---
Author Name ABBY BUTLER Address [address] [place] [address] Phone [facility] Address [address] [place] [address] Phone Care Team Providers Care Section Leader Name Role Phone ABBY BUTLER Unavailable [phone] ALLERGIES, ADVERSE REACTIONS AND ALERTS Allergy Name Allergy Date Allergy Status Allergy Severity Allergy Reaction NO KNOWN DRUG ALLERGIES PROBLEMS Problem Code Problem Description Problem Status Problem Da te Problem End Date [id number] tract congestion and cough Respiratory tract congestion and cough Current 04/28/2022 [id number]-Dkjchpz disorder Bipolar disorder Chronic 04/28/2022 [id number]-Fdpgledlj emphysema Pulmonary emphysema Chronic 04/28/2022 71631201-Znroxy disease Kidney disease Chronic 04/28/2022 13409064-Qzhspugq mellitus Diabetes mellitus Chronic 04/28/2022 [id number]-Etwjfx Asthma Chronic 04/28/2022 [id number]-Vzftyxxlssx sleep apnea syndrome Obstructive sleep apnea syndrome [...] ever smoked Sex: Male CARE TEAM INFORMATION Section Leader Provider ID Role Location Phone ABBY BUTLER [id number] NURSE PRACTITIONER [address] [place] [address] INSURANCE PROVIDERS Payer Name Policy type / Coverage type Covered constitution party ID Policy [place] MED[place] Medicaid [id number] SELF [facility] MEDICARE ADVANTAGE Private Health Insurance [id number] SELF
--- OUTSIDE RECORDS SUMMARY | 2025-06-05 12:46 | XMS_ITS | Encounter Summary ---
Author Organization [facility] Address [address] [place] [address] Phone Care Team Providers Care Wet Process Head Miller Name Role Phone Jabier Peck MD Primary Care Provider [phone] Srikanth Adrian MD Unavailable Tad Romero MD Primary Care Provider [phone] Gloria Martinez MD Unavailable [phone] Reason for Visit * Reason Onset Date Comments Medication Refill 12/28/2021 Encounter Details Date Type Department Care Team (Late st Contact Info) Description 12/28/2021 Refill [facility] #2 [place] [address] Jabier Peck MD #[address] [address] Medication Refill Social History Tobacco Use Types [...] CDT Gender Identity Male 05/03/2023 12:44 PM FORENSIC SERGEANT Sexual Orientation Lesbian or Wolff 05/03/2023 12 :44 PM FORENSIC SERGEANT COVID-19 Exposure Response Date Recorded In the [...] physician/MARVA review. Refill encounter routed to nurse [employer] [employer] for processing. documented in this encounter Plan of Treatment Upcoming Encounters Date Type Department Care Team (Late st Contact Info) Description 07/14/2025 1:30 PM FORENSIC SERGEANT Office Visit [facility] - Neurology [facility] #2 [place] [address] Aria Delong APRN, DELINQUENCY PREVENTION OFFICER #[address] [place] [address] documented as of this encounter Visit Diagnoses Not on filedocumented in this encounter Additional Health Concerns Infection Onset Date Last Indicated Resolved Time COVID - 19 Confirmed 05/31/2022 05/31/2022 023 12:16 AM FORENSIC SERGEANT Respiratory Rule Out - RPA 02/26/2023 02/26/2023 0 02/26/2023 11:31 AM CDT COVID - 19 02/26/2023 02/26/2023 03/08/2023 12:1 6 AM CDT documented as of this encounter Care Teams Wet Process Head Miller Relationship Specialty Start Date End Date Jabier Peck MD #[address] [address] PCP - General Family Medicine 06/22/20 01/16/24 Tad Mcintosh MD [address] [place] [address] PCP - General Family Medicine 01/17/24 Srikanth Adrian MD #2 [facility] [address] [place] [address] Venetian Blind Mechanic Cardiovascular Disease - Cardiology 02/02/22 08/06/24 Gloria Martinez MD #2 [facility] [address] [place] [address] Consulting Physician Urology 04/30/24 documented as of this encounter
--- OUTSIDE RECORDS SUMMARY | 2025-06-05 12:46 | XMS_ITS | Encounter Summary ---
Author Organization [facility] Address [address] [place] [address] Phone Care Team Providers Care Cleat Blanker Name Role Phone Srikanth Adrian MD Unavailable Tad Romero MD Primary Care Provider [phone] Gloria Martinez MD Unavailable [phone] Reason for Visit * Reason Comments Medication Refill Encounter Details Date Type Department Care Team (Late st Contact Info) Description 03/29/2024 Refill [facility] - Family Medicine [facility] #2 [place] [address] Kishore Prieto APRN, QUILTING MACHINE HELPER #[address] [address] Medication Refill Social History Tobacco Use Types [...] CDT Gender Identity Male 05/03/2023 12:44 PM SLAB OFF MILL TENDER Sexual Orientation Lesbian or Wolff 05/03/2023 12 :44 PM SLAB OFF MILL TENDER documented as of this encounter Miscellaneous Notes * Telephone Encounter - Cristine Preston RN - 03/30/2024 1:22 PM CDT PCP: Tad Mcintosh MD documented in this encounter Plan of Treatment Upcoming Encounters Date Type Department Care Team (Late st Contact Info) Description 07/14/2025 1:30 PM SLAB OFF MILL TENDER Office Visit [facility] - Neurology - [place] #[address] [place] [address] Aria Delong APRN, RN ON SITE [address] [place] [address] documented as of this encounter Visit Diagnoses Not on filedocumented in this encounter Care Teams Cleat Blanker Relationship Specialty Start Date End Date Tad Mcintosh MD [address] [place] [address] PCP - General Family Medicine 01/17/24 Srikanth Adrian MD Hematologist Cardiovascular Disease - Cardiology 02/02/22 08/06/24 Gloria Martinez MD #[address] [address] Consulting Physician Urology 04/30/24 documented as of this encounter
--- OUTSIDE RECORDS SUMMARY | 2025-06-05 12:46 | XMS_ITS | Encounter Summary ---
Author Organization [facility] Address [address] [place] [address] Phone Care Team Providers Care Round Cutter Operator Name Role Phone Jabier Peck MD Primary Care Provider [phone] Srikanth Adrian MD Unavailable Tad Romero MD Primary Care Provider [phone] Gloria Martinez MD Unavailable [phone] Reason for Visit * Reason Comments Medication Refill Encounter Details Date Type Department Care Team (Late st Contact Info) Description 10/21/2021 Refill [facility] - Family Medicine [facility] #2 [place] [address] Jabier Peck MD #[address] [address] Medication Refill Social History Tobacco Use Types [...] CDT Gender Identity Male 05/03/2023 12:44 PM ICE CREAM CHEF Sexual Orientation Lesbian or Wolff 05/03/2023 12 :44 PM ICE CREAM CHEF documented as of this encounter Miscellaneous Notes [...] 11/16/20 Office Visit Kishore Prieto APRN, RICHARD [facility] [place] Showing recent visits within past 365 days and meeting all other requirements Future Appointments Date Type Provider Dept 10/31/21 Appointment Jabier Peck MD [facility] Showing future appointments within next 90 days and meeting all other requirements documented in this encounter Plan of Treatment Upcoming Encounters Date Type Department Care Team (Late st Contact Info) Description 07/14/2025 1:30 PM ICE CREAM CHEF [facility] [place] [address] [place] [address] Aria Delong APRN, INTERIOR MECHANIC [address] [place] [address] documented as of this encounter Visit Diagnoses Diagnosis Cervical radiculopathy Brachial neuritis or radiculitis nos documented in this encounter Additional Health Concerns Infection Onset Date Last Indicated Resolved Time COVID - 19 Confirmed 05/31/2022 05/31/2022 023 12:16 AM ICE CREAM CHEF Respiratory Rule Out - RPA 02/26/2023 02/26/2023 0 02/26/2023 11:31 AM CDT COVID - 19 02/26/2023 02/26/2023 03/08/2023 12:1 6 AM CDT documented as of this encounter Care Teams Round Cutter Operator Relationship Specialty Start Date End Date Jabier Peck MD #2 [facility] [address] [place] [address] PCP - General Family Medicine 06/22/20 01/16/24 Tad Mcintosh MD [address] [place] [address] PCP - General Family Medicine 01/17/24 Srikanth Adrian MD #2 [facility] [address] [place] [address] Casing Builder Cardiovascular Disease - Cardiology 02/02/22 08/06/24 Gloria Martinez MD #2 [facility] [address] [place] [address] Consulting Physician Urology 04/30/24 documented as of this encounter
--- OUTSIDE RECORDS SUMMARY | 2025-06-05 12:46 | XMS_ITS | Encounter Summary ---
Author Organization [facility] Address [address] [place] [address] Phone Care Team Providers Care Seasonal Delivery Driver Name Role Phone Jabier Peck MD Primary Care Provider [phone] Srikanth Adrian MD Unavailable Tad Romero MD Primary Care Provider [phone] Gloria Martinez MD Unavailable [phone] Reason for Visit * Reason Comments Medication Refill Encounter Details Date Type Department Care Team (Late st Contact Info) Description 07/20/2021 [facility]ill [facility] #2 [place] [address] Jabier Peck MD #[address] [address] Medication Refill Social History Tobacco Use Types [...] CDT Gender Identity Male 05/03/2023 12:44 PM SCIENCE AND OPERATIONS OFFICER Sexual Orientation Lesbian or Wolff 05/03/2023 12 :44 PM SCIENCE AND OPERATIONS OFFICER COVID-19 Exposure Response Date Recorded In the last month, have you been in contact with someone who was confirmed or suspected to have Coronavirus / COVID-19? No / Unsure 07/14/2021 12:17 PM SCIENCE AND OPERATIONS OFFICER documented as of this encounter Miscellaneous [...] [facility] 08/06/20 Telemedicine Kishore Prieto APRN, AMERICANIZATION TEACHER [facility] [place] Showing recent visits within past 365 days and meeting all other requirements Future Appointments Date Type Provider Dept 08/01/21 Appointment Jabier Peck MD [facility] Showing future appointments within next 90 days and meeting all other requirements NCE AND OPERATIONS OFFICER documented in this encounter Plan of Treatment Upcoming Encounters Date Type Department Care Team (Late st Contact Info) Description 07/14/2025 1:30 PM SCIENCE AND OPERATIONS OFFICER Office Visit [facility] - Neurology - [place] #2 [place] [address] Aria Delong APRN, REDRYING MACHINE OPERATOR #[address] [facility] [place] [address] documented as of this encounter Visit Diagnoses Diagnosis Cervical radiculopathy Brachial neuritis or radiculitis nos documented in this encounter Additional Health Concerns Infection Onset Date Last Indicated Resolved Time COVID - 19 Confirmed 05/31/2022 05/31/2022 023 12:16 AM SCIENCE AND OPERATIONS OFFICER Respiratory Rule Out - RPA 02/26/2023 02/26/2023 0 02/26/2023 11:31 AM CDT COVID - 19 02/26/2023 02/26/2023 03/08/2023 12:1 6 AM CDT documented as of this encounter Care Teams Seasonal Delivery Driver Relationship Specialty Start Date End Date Jabier Peck MD #[address] [address] PCP - General Family Medicine 06/22/20 01/16/24 Tad Mcintosh MD [address] [place] [address] PCP - General Family Medicine 01/17/24 Srikanth Adrian MD #2 [facility] [address] [place] [address] Pie Chef Cardiovascular Disease - Cardiology 02/02/22 08/06/24 Gloria Martinez MD #2 [facility] [address] [place] [address] Consulting Physician Urology 04/30/24 documented as of this encounter
--- OUTSIDE RECORDS SUMMARY | 2025-06-05 12:46 | XMS_ITS | Encounter Summary ---
Author Organization [facility] Address [address] [place] [address] Phone Care Team Providers Care Wire Wrapper Machine Operator Name Role Phone Jabier Peck MD Primary Care Provider [phone] Srikanth Adrian MD Unavailable Tad Romero MD Primary Care Provider [phone] Gloria Martinez MD Unavailable [phone] Reason for Visit * Reason Comments Medication Refill Encounter Details Date Type Department Care Team (Late st Contact Info) Description 11/23/2021 Refill [facility] #2 [place] [address] Jabier Peck MD #[address] [address] Medication Refill Social History Tobacco Use Types [...] Identity Male 05/03/2023 12:44 PM VICE PRESIDENT OF CUSTOMER SERVICE Sexual Orientation Lesbian or Wolff 05/03/2023 12 :44 PM VICE PRESIDENT OF CUSTOMER SERVICE documented as of this encounter Miscellaneous Notes [...] Peck MD [facility] [place] 04/29/21 Office Visit Jabier Peck MD [facility] [place] 03/16/21 Office Visit Kishore Prieto APRN, NETWORK TECHNOLOGY INSTRUCTOR [facility] Showing recent visits within past 365 days and meeting all other requirements Future Appointments No visits were found meeting these conditions. Showing future appointments within next 90 days and meeting all other requirements documented in this encounter Plan of Treatment Upcoming Encounters Date Type Department Care Team (Late st Contact Info) Description 07/14/2025 1:30 PM VICE PRESIDENT OF CUSTOMER SERVICE Office Visit [facility] - Neurology - [place] #2 [place] [address] Aria Delong APRN, SEASONER #2 [place] [address] documented as of this encounter Visit Diagnoses Diagnosis Cervical radiculopathy Brachial neuritis or radiculitis nos documented in this encounter Additional Health Concerns Infection Onset Date Last Indicated Resolved Time COVID - 19 Confirmed 05/31/2022 05/31/2022 023 12:16 AM VICE PRESIDENT OF CUSTOMER SERVICE Respiratory Rule Out - RPA 02/26/2023 02/26/2023 0 02/26/2023 11:31 AM CDT COVID - 19 02/26/2023 02/26/2023 03/08/2023 12:1 6 AM CDT documented as of this encounter Care Teams Wire Wrapper Machine Operator Relationship Specialty Start Date End Date Jabier Peck MD #2 [facility] [address] [place] [address] PCP - General Family Medicine 06/22/20 01/16/24 Tad Mcintosh MD [address] [place] [address] PCP - General Family Medicine 01/17/24 Srikanth Adrian MD #2 [facility] [address] [place] [address] Medical Coordinator Pesticide Use Cardiovascular Disease - Cardiology 02/02/22 08/06/24 Gloria Martinez MD #2 [facility] [address] [place] [address] Consulting Physician Urology 04/30/24 documented as of this encounter
--- OUTSIDE RECORDS SUMMARY | 2025-06-05 12:46 | XMS_ITS | Encounter Summary ---
Author Organization [facility] Address [address] [place] [address] Phone Care Team Providers Care Store Sales Manager Name Role Phone Jabier Peck MD Primary Care Provider [phone] Srikanth Adrian MD Unavailable Tad Romero MD Primary Care Provider [phone] Gloria Martinez MD Unavailable [phone] Encounter Details Date Type Department Care Team (Late st Contact Info) Description 03/21/2023 Telephone [facility] [address] [place] [address] Jabier Peck MD #[address] [address] Social History Tobacco Use Types Packs/Day Years [...] Gender Identity Male 05/03/2023 12:44 PM BAND TACKER Sexual Orientation Lesbian or Wolff 05/03/2023 12 :44 PM BAND TACKER COVID-19 Exposure Response Date Recorded In the [...] st Contact Info) Description 07/14/2025 1:30 PM BAND TACKER Office Visit [facility] - Neurology - [place] #2 [place] [address] Aria Delong APRN, MOTOCROSS RACER #2 [place] [address] documented as of this encounter Visit Diagnoses Not on filedocumented in this encounter Care Teams Store Sales Manager Relationship Specialty Start Date End Date Jabier Peck MD #[address] [address] PCP - General Family Medicine 06/22/20 01/16/24 Tad Mcintosh MD [address] [place] [address] PCP - General Family Medicine 01/17/24 Srikanth Adrian MD #2 [facility] [address] [place] [address] Service Parts Driver Cardiovascular Disease - Cardiology 02/02/22 08/06/24 Gloria Martinez MD #2 [facility] [address] [place] [address] Consulting Physician Urology 04/30/24 documented as of this encounter
--- OUTSIDE RECORDS SUMMARY | 2025-06-05 12:46 | XMS_ITS | Encounter Summary ---
Author Organization [facility] Address [address] [place] [address] Phone Care Team Providers Care Bushing Press Operator Name Role Phone Jabier Peck MD Primary Care Provider [phone] Srikanth Adrian MD Unavailable Tad Romero MD Primary Care Provider [phone] Gloria Martinez MD Unavailable [phone] Reason for Visit * Reason Comments Medication Refill Encounter Details Date Type Department Care Team (Late st Contact Info) Description 02/24/2022 Refill [facility] #2 [place] [address] Jabier Peck MD #[address] [address] Medication Refill Social History Tobacco Use Types [...] Gender Identity Male 05/03/2023 12:44 PM TOOL STORAGE ATTENDANT Sexual Orientation Lesbian or Wolff 05/03/2023 12 :44 PM TOOL STORAGE ATTENDANT COVID-19 Exposure Response Date Recorded In [...] 03/16/21 Office Visit Kishore Prieto APRN, [facility] [place] Showing recent visits within past 365 days and meeting all other requirements Today's Visits Date Type Provider Dept 09/09/22 Appointment Kishore Prieto APRN, COGNOS CONSULTANT [facility] Show[facility] today's visits and meeting all other requirements Future Appointments No visits were found meeting these conditions. Showing future appointments within next 90 days and meeting all other requirements documented in this encounter Plan of Treatment Upcoming Encounters Date Type Department Care Team (Late st Contact Info) Description 07/14/2025 1:30 PM TOOL STORAGE ATTENDANT [facility] [place] #[address] [place] [address] Aria Delong LIGHT RAIL OPERATOR, WASTE WATER OPERATOR #2 [place] [address] documented as of this encounter Visit Diagnoses Not on filedocumented in this encounter Additional Health Concerns Infection Onset Date Last Indicated Resolved Time COVID - 19 Confirmed 05/31/2022 05/31/2022 023 12:16 AM TOOL STORAGE ATTENDANT Respiratory Rule Out - RPA 02/26/2023 02/26/2023 0 02/26/2023 11:31 AM CDT COVID - 19 02/26/2023 02/26/2023 03/08/2023 12:1 6 AM CDT documented as of this encounter Care Teams Bushing Press Operator Relationship Specialty Start Date End Date Jabier Peck MD #[address] [address] PCP - General Family Medicine 06/22/20 01/16/24 Tad Mcintosh MD [address] [place] [address] PCP - General Family Medicine 01/17/24 Srikanth Adrian MD #[address] [address] Senior Oracle Database Developer Cardiovascular Disease - Cardiology 02/02/22 08/06/24 Gloria Martinez MD #2 [facility], [address] [address] Consulting Physician Urology 04/30/24 documented as of this encounter
--- OUTSIDE RECORDS SUMMARY | 2025-06-05 12:46 | XMS_ITS | Encounter Summary ---
Author Organization [facility] Address [address] [place] [address] Phone Care Team Providers Care Quality Coordinator Name Role Phone Jabier Peck MD Primary Care Provider [phone] Srikanth Adrian MD Unavailable Tad Romero MD Primary Care Provider [phone] Gloria Martinez MD Unavailable [phone] Reason for Visit * Reason Comments Medication Refill Encounter Details Date Type Department Care Team (Late st Contact Info) Description 04/13/2023 Refill [facility] #2 [place] [address] Jabier Peck MD #[address] [address] Medication Refill Social History Tobacco Use Types [...] CDT Gender Identity Male 05/03/2023 12:44 PM GROUND SUPPORT AGENT Sexual Orientation Lesbian or Wolff 05/03/2023 12 :44 PM GROUND SUPPORT AGENT documented as of this encounter Miscellaneous [...] Dept 02/26/23 Office Visit Kishore Prieto APRN, LASER BEAM COLOR SCANNER OPERATOR [facility] 12/18/22 Telemedicine Jabier Peck MD [facility] 11/30/22 Telemedicine Kishore Prieto APRN, LASER BEAM COLOR SCANNER OPERATOR [facility] [place] 08/21/22 Office Visit Jabier Peck MD [facility] 07/20/22 Office Visit Gerri Rocha MD [facility] 05/03/22 Telemedicine Jabier [facility] [place] Showing [...] st Contact Info) Description 07/14/2025 1:30 PM GROUND SUPPORT AGENT Office Visit [facility] - Neurology - [place] #2 [place] [address] Aria Delong, ENGINEERING EXECUTIVE, PSYCHOLOGICAL OPERATIONS #2 [place] [address] documented as of this encounter Visit Diagnoses Diagnosis Cervical radiculopathy Brachial neuritis or radiculitis nos documented in this encounter Care Teams Quality Coordinator Relationship Specialty Start Date End Date Jabier Peck MD #2 [facility] [address] [place] [address] PCP - General Family Medicine 06/22/20 01/16/24 Tad Mcintosh MD [address] [place] [address] PCP - General Family Medicine 01/17/24 Srikanth Adrian MD #2 [facility] [address] [place] [address] Pet Sitter Cardiovascular Disease - Cardiology 02/02/22 08/06/24 Gloira Martinez MD #2 [facility] [address] [place] [address] Consulting Physician Urology 04/30/24 documented as of this encounter
--- OUTSIDE RECORDS SUMMARY | 2025-06-05 12:46 | XMS_ITS | Encounter Summary ---
Author Organization [facility] Address [address] [place] [address] Phone Care Team Providers Care Jackhammer Splitter Operator Name Role Phone Jabier Peck MD Primary Care Provider [phone] Srikanth Adrian MD Unavailable Tad Romero MD Primary Care Provider [phone] Gloria Martinez MD Unavailable [phone] Reason for Visit * Reason Comments Medication Refill Encounter Details Date Type Department Care Team (Late st Contact Info) Description 02/02/2021 Refill [facility] #2 [place] [address] Jabier Peck MD #[address] [address] Medication Refill Social History Tobacco Use Types [...] CDT Gender Identity Male 05/03/2023 12:44 PM JIG GRINDER SET UP OPERATOR Sexual Orientation Lesbian or Wolff 05/03/2023 12 :44 PM JIG GRINDER SET UP OPERATOR documented as of this encounter Miscellaneous [...] 11/16/20 Office Visit Kishore Prieto APN, RICHARD [facility] [place] 10/20/20 Office Visit [facility] [place] 08/20/20 Telemedicine Kishore Prieto APN, RICHARD [facility] [place] 08/06/20 Telemedicine Kishore Prieto APN, RICHARD [facility] [place] 06/22/20 Office Visit Kish[facility] Prieto APN, [facility] Showing recent visits within past 365 days and meeting all other requirements Future Appointments No visits were found meeting these conditions. Showing future appointments within next 90 days and meeting all other requirements documented in this encounter Plan of Treatment Upcoming Encounters Date Type Department Care Team (Late st Contact Info) Description 07/14/2025 1:30 PM JIG GRINDER SET UP OPERATOR [facility] - Neurology - [place] #[address] [place] [address] Aria Delong, SERVICE DESK SPECIALIST, OFFAL SEPARATOR #2 [place] [address] documented as of this encounter Visit Diagnoses Not on filedocumented in this encounter Additional Health Concerns Infection Onset Date Last Indicated Resolved Time COVID - 19 Confirmed 05/31/2022 05/31/2022 023 12:16 AM JIG GRINDER SET UP OPERATOR Respiratory Rule Out - RPA 02/26/2023 02/26/2023 0 02/26/2023 11:31 AM CDT COVID - 19 02/26/2023 02/26/2023 03/08/2023 12:1 6 AM CDT documented as of this encounter Care Teams Jackhammer Splitter Operator Relationship Specialty Start Date End Date Jabier Peck MD #2 [facility] [address] [place] [address] PCP - General Family Medicine 06/22/20 01/16/24 Tad Mcintosh MD [address] [place] [address] PCP - General Family Medicine 01/17/24 Srikanth Adrian MD #2 [facility] [address] [place] [address] Facility Environmental Technician Cardiovascular Disease - Cardiology 02/02/22 08/06/24 Gloria Martinez MD #2 [facility] [address] [place] [address] Consulting Physician Urology 04/30/24 documented as of this encounter
--- OUTSIDE RECORDS SUMMARY | 2025-06-05 12:46 | XMS_ITS | Encounter Summary ---
Author Organization [facility] Address [address] [place] [address] Phone Care Team Providers Care Assistant Account Executive Name Role Phone Jabier Peck MD Primary Care Provider [phone] Srikanth Adrian MD Unavailable Tad Romero MD Primary Care Provider [phone] Gloria Martinez MD Unavailable [phone] Reason for Visit * Reason Comments Medication Refill Encounter Details Date Type Department Care Team (Late st Contact Info) Description 12/11/2021 Refill [facility] #2 [place] [address] Jabier Peck MD #[address] [address] Medication Refill Social History Tobacco Use Types [...] Gender Identity Male 05/03/2023 12:44 PM POULTRY EVISCERATOR Sexual Orientation Lesbian or Wolff 05/03/2023 12 :44 PM POULTRY EVISCERATOR COVID-19 Exposure Response Date Recorded In the [...] Dept 08/01/21 Office Visit Jabier Peck MD [facility] [place] 04/29/21 Office Visit Jabier Peck MD [facility] 03/16/21 Office Visit Kishore Prieto APRN, RICHARD [facility] [place] Showing recent visits within past 365 days and meeting all other requirements Future Appointments Date Type Provider Dept 12/13/21 Appointment Kishore Prieto APRN, [facility] [place] Showing future appointments within next 90 days and meeting all other requirements documented in this encounter Plan of Treatment Upcoming Encounters Date Type Department Care Team (Late st Contact Info) Description 07/14/2025 1:30 PM POULTRY EVISCERATOR Office Visit [facility] - Neurology - [place] #2 [place] [address] Aria Delong APRN, POLISHER BALANCE SCREWHEAD #2 [place] [address] documented as of this encounter Visit Diagnoses Diagnosis Cervical radiculopathy Brachial neuritis or radiculitis nos documented in this encounter Additional Health Concerns Infection Onset Date Last Indicated Resolved Time COVID - 19 Confirmed 05/31/2022 05/31/2022 023 12:16 AM POULTRY EVISCERATOR Respiratory Rule Out - RPA 02/26/2023 02/26/2023 0 02/26/2023 11:31 AM CDT COVID - 19 02/26/2023 02/26/2023 03/08/2023 12:1 6 AM CDT documented as of this encounter Care Teams Assistant Account Executive Relationship Specialty Start Date End Date Jabier Peck MD #2 [facility] [address] [place] [address] PCP - General Family Medicine 06/22/20 01/16/24 Tad Mcintosh MD [address] [place] [address] PCP - General Family Medicine 01/17/24 Srikanth Adrian MD #2 [facility] [address] [place] [address] Taxi Servicer Cardiovascular Disease - Cardiology 02/02/22 08/06/24 Gloria Martinez MD #2 [facility] [address] [place] [address] Consulting Physician Urology 04/30/24 documented as of this encounter
--- OUTSIDE RECORDS SUMMARY | 2025-06-05 12:46 | XMS_ITS | Clinical Summary ---
Author Organization [facility] Facility Address [address] [place] [address] Care Team Providers Care Python Consultant Name Role Phone Jabier Peck MD MPH Primary Care Provider [phone] Allergies Active Allergy Reactions Criticality Noted Date [...] specimen (specimen) Venous blood / Unknown 12/30/2021 [facility] Provider LAB BLOOD ORDERABLES Becky l Result from Last 3 Months or Most Recently Relevant to Health Maintenance Insurance UHC Medicare Medicaid [place] Care Teams Python Consultant Relationship Specialty Start Date End Date Jabier Peck MD MPH [address] [address] PCP - General Family Medicine 09/13/21
--- OUTSIDE RECORDS SUMMARY | 2025-06-05 12:46 | XMS_ITS | Encounter Summary ---
Author Organization [facility] Address [address] [place] [address] Phone Care Team Providers Care Food Taster Name Role Phone Jabier Peck MD Primary Care Provider [phone] Srikanth Adrian MD Unavailable Tad Romero MD Primary Care Provider [phone] Gloria Martinez MD Unavailable [phone] Reason for Visit * Reason Comments Medication Refill Encounter Details Date Type Department Care Team (Late st Contact Info) Description 08/19/2021 Refill [facility] #2 [place] [address] Jabier Peck MD #[address] [address] Medication Refill Social History Tobacco Use Types [...] CDT Gender Identity Male 05/03/2023 12:44 PM POLITICAL SCIENCE CHAIR Sexual Orientation Lesbian or Wolff 05/03/2023 12 :44 PM POLITICAL SCIENCE CHAIR COVID-19 Exposure Response Date Recorded In the last month, have you been in contact with someone who was confirmed or suspected to have Coronavirus / COVID-19? No / Unsure 08/01/2021 1:35 PM POLITICAL SCIENCE CHAIR documented as of this encounter Miscellaneous Notes [...] [place] 08/20/20 Telemedicine Kishore Prieto APRN, [facility] [place] Showing recent visits within past 365 days and meeting all other requirements Future Appointments Date Type Provider Dept 10/31/21 Appointment Jabier Peck MD [facility] Showing future appointments within next 90 days and meeting all other requirements TICAL SCIENCE CHAIR documented in this encounter Plan of Treatment Upcoming Encounters Date Type Department Care Team (Late st Contact Info) Description 07/14/2025 1:30 PM POLITICAL SCIENCE CHAIR Office Visit [facility] - Neurology - [place] #2 [place] [address] Aria Delong, TOE LINING CLOSER, WELDER OXYHYDROGEN #2 [place] [address] documented as of this encounter Visit Diagnoses Diagnosis Cervical radiculopathy Brachial neuritis or radiculitis nos documented in this encounter Additional Health Concerns Infection Onset Date Last Indicated Resolved Time COVID - 19 Confirmed 05/31/2022 05/31/2022 023 12:16 AM POLITICAL SCIENCE CHAIR Respiratory Rule Out - RPA 02/26/2023 02/26/2023 0 02/26/2023 11:31 AM CDT COVID - 19 02/26/2023 02/26/2023 03/08/2023 12:1 6 AM CDT documented as of this encounter Care Teams Food Taster Relationship Specialty Start Date End Date Jabier Peck MD #[address] [address] PCP - General Family Medicine 06/22/20 01/16/24 Tad Mcintosh MD [address] [place] [address] PCP - General Family Medicine 01/17/24 Srikanth Adrian MD #2 [facility] [address] [place] [address] Burr Bench Operator Cardiovascular Disease - Cardiology 02/02/22 08/06/24 Gloria Martinez MD #2 [facility] [address] [place] [address] Consulting Physician Urology 04/30/24 documented as of this encounter
--- OUTSIDE RECORDS SUMMARY | 2025-06-05 12:46 | XMS_ITS | Encounter Summary ---
Author Organization [facility] Address [address] [place] [address] Phone Care Team Providers Care Mannequin Refinisher Name Role Phone Jabier Peck MD Primary Care Provider [phone] Srikanth Adrian MD Unavailable Tad Romero MD Primary Care Provider [phone] Gloria Martinez MD Unavailable [phone] Reason for Visit * Reason Comments Medication Refill Encounter Details Date Type Department Care Team (Late st Contact Info) Description 05/14/2023 [facility]ill [facility] #2 [place] [id number] Jabier Peck MD #[address] [address] Medication Refill Social History Tobacco Use Types [...] Gender Identity Male 05/03/2023 12:44 PM CHIEF MEDICAL OFFICER Sexual Orientation Lesbian or Wolff 05/03/2023 12 :44 PM CHIEF MEDICAL OFFICER documented as of this encounter Miscellaneous Notes * Telephone Encounter - Francine oSto RN - 05/15/2023 8:25 AM CST Medication [...] days and meeting all other requirements F MEDICAL OFFICER documented in this encounter Plan of Treatment Upcoming Encounters Date Type Department Care Team (Late st Contact Info) Description 07/14/2025 1:30 PM CHIEF MEDICAL OFFICER Office Visit [facility] - [facility]rology - [place] #2 [facility] [place] [address] Aria Delong APRN, WHITE LEAD FILTERER #2 [facility] [place] [address] documented as of this encounter Visit Diagnoses Not on filedocumented in this encounter Care Teams Mannequin Refinisher Relationship Specialty Start Date End Date Jabier Peck MD #2 [facility] [address] [place] [address] PCP - General Family Medicine 06/22/20 01/16/24 Tad Mcintosh MD [address] [place] [address] PCP - General Family Medicine 01/17/24 Srikanth Adrian MD #2 [facility] [address] [place] [address] Managing Member Cardiovascular Disease - Cardiology 02/02/22 08/06/24 Gloria Martinez MD #2 [facility] [address] [place] [address] Consulting Physician Urology 04/30/24 documented as of this encounter
--- OUTSIDE RECORDS SUMMARY | 2025-06-05 12:46 | XMS_ITS | Encounter Summary ---
Author Organization [facility] Address [address] [place] [address] Phone Care Team Providers Care Frame Wirer Name Role Phone Macy Kwok MD Primary Care Provider [phone] Srikanth Adrian MD Unavailable Tad Romero MD Primary Care Provider [phone] Gloria Martinez MD Unavailable [phone] Reason for Visit * Reason Comments Medication Refill Encounter Details Date Type Department Care Team (Late st Contact Info) Description 01/23/2022 Refill [facility] #2 [place] [address] Macy Kwok MD #[address] [address] Medication Refill Social History Tobacco Use Types [...] CDT Gender Identity Male 05/03/2023 12:44 PM DRY TRANSFER WORKER Sexual Orientation Lesbian or Wolff 05/03/2023 12 :44 PM DRY TRANSFER WORKER COVID-19 Exposure Response Date Recorded In [...] Dept 01/31/22 Appointment Kishore Prieto APRN, [facility] [place] Showing future appointments within next 90 [...] [place] 04/29/21 Office Visit Macy Kwok MD [facility] [place] [facility] [place] Showing recent visits within past 270 days and meeting all other requirements Future Appointments Date Type Provider Dept 01/31/22 Appointment Kishore Prieto APRN, BOWLING BALL ENGRAVER [facility] [place] Showing future appointments within [...] TABLET 12/27/2021 90 90 Each MACY KWOK [facility]/pharmacy #[id number] - G... documented in this encounter Plan of Treatment Upcoming Encounters Date Type Department Care Team (Late st Contact Info) Description 07/14/2025 1:30 PM DRY TRANSFER WORKER Office Visit [facility] - Neurology [facility] #2 [place] [address] Aria Delong APRN, COP EXAMINER #2 [place] [address] documented as of this encounter Visit Diagnoses Diagnosis Cervical radiculopathy Brachial neuritis or radiculitis nos documented in this encounter Additional Health Concerns Infection Onset Date Last Indicated Resolved Time COVID - 19 Confirmed 05/31/2022 05/31/2022 023 12:16 AM DRY TRANSFER WORKER Respiratory Rule Out - RPA 02/26/2023 02/26/2023 0 02/26/2023 11:31 AM CDT COVID - 19 02/26/2023 02/26/2023 03/08/2023 12:1 6 AM CDT documented as of this encounter Care Teams Frame Wirer Relationship Specialty Start Date End Date Macy Kwok MD #2 [facility] [address] [place] [address] PCP - General Family Medicine 06/22/20 01/16/24 Tad Mcintosh MD [address] [place] [address] PCP - General Family Medicine 01/17/24 Srikanth Adrian MD #2 [facility] [address] [place] [address] Disc Sander Cardiovascular Disease - Cardiology 02/02/22 08/06/24 Gloria Martinez MD #2 [facility] [address] [place] [address] Consulting Physician Urology 04/30/24 documented as of this encounter
--- OUTSIDE RECORDS SUMMARY | 2025-06-05 12:46 | XMS_ITS | Encounter Summary ---
Author Organization [facility] Address [address] [place] [address] Phone Care Team Providers Care Internal Control Consultant Name Role Phone Srikanth Adrian MD Unavailable Tad Romero MD Primary Care Provider [phone] Gloria Martinez MD Unavailable [phone] Reason for Visit * Reason Comments Medication Refill Encounter Details Date Type Department Care Team (Late st Contact Info) Description 07/03/2024 Refill [facility] Family Medicine [facility] #2 [place] [phone] Jabier Peck MD #[address] [address] Medication Refill Social History Tobacco Use Types [...] CDT Gender Identity Male 05/03/2023 12:44 PM KILN PUSHER Sexual Orientation Lesbian or Wolff 05/03/2023 12 :44 PM KILN PUSHER documented as of this encounter Miscellaneous Notes * Telephone Encounter - Francine Soto RN - 07/04/2024 8:54 AM CST PCP: Tad Mcintosh MD PUSHER documented in this encounter Plan of Treatment Upcoming Encounters Date Type Department Care Team (Late st Contact Info) Description 07/14/2025 1:30 PM KILN PUSHER Office Visit [facility] - Neurology - [place] #2 [place] [address] Aria Delong APRN, RESEARCH AND EVALUATION ANALYST #2 [place] [address] documented as of this encounter Visit Diagnoses Not on filedocumented in this encounter Care Teams Internal Control Consultant Relationship Specialty Start Date End Date Tad Mcintosh MD [address] [place] [address] PCP - General Family Medicine 01/17/24 Srikanth Adrian MD Telephone Service Adviser Cardiovascular Disease - Cardiology 02/02/22 08/06/24 Gloria Martinez MD #[address] [address] Consulting Physician Urology 04/30/24 documented as of this encounter
--- OUTSIDE RECORDS SUMMARY | 2025-06-05 12:46 | XMS_ITS | Encounter Summary ---
Author Organization [facility] Address [address] [place] [address] Phone Care Team Providers Care Gill Box Tender Name Role Phone Jabier Peck MD Primary Care Provider [phone] Srikanth Adrian MD Unavailable Tad Romero MD Primary Care Provider [phone] Gloria Martinez MD Unavailable [phone] Reason for Visit * Reason Comments Medication Refill Encounter Details Date Type Department Care Team (Late st Contact Info) Description 08/01/2023 Refill [facility] Family Medicine [facility] #2 [place] [address] Jabier Peck MD #[address] [address] Medication Refill Social History Tobacco Use Types [...] CDT Gender Identity Male 05/03/2023 12:44 PM HUMAN RESOURCES BENEFITS MANAGER Sexual Orientation Lesbian or Wolff 05/03/2023 12 :44 PM HUMAN RESOURCES BENEFITS MANAGER documented as of this encounter Miscellaneous [...] 05/11/23 Office Visit Piper Toro APRN, [facility] [place] 05/03/23 Office Visit Piper Toro APRN, R[facility] [place] 02/26/23 Office Visit Kishore Prieto APRN, RICHARD [facility] [place] 12/18/22 Telemedicine Jabier Peck MD [facility] [place] 11/30/22 Telemedicine Kishore Prieto APRN, R[facility] [place] 08/21/22 Office Visit Jabier Peck MD [facility] [place] Showing recent visits within past 365 days and meeting all other requirements Future Appointments No visits were found meeting these conditions. Showing future appointments within next 90 days and meeting all other requirements Passed - Active short-acting beta agonist prescription N RESOURCES BENEFITS MANAGER documented in this encounter Plan of Treatment Upcoming Encounters Date Type Department Care Team (Late st Contact Info) Description 07/14/2025 1:30 PM HUMAN RESOURCES BENEFITS MANAGER Office Visit [facility] - Neurology - [place] #2 [place] [address] Aria Delong, EXECUTIVE ASST, REGIONAL LIAISON #2 [facility] [place] [address] documented as of this encounter Visit Diagnoses Not on filedocumented in this encounter Care Teams Gill Box Tender Relationship Specialty Start Date End Date Jabier Peck MD #2 [facility] [address] [address] PCP - General Family Medicine 06/22/20 01/16/24 Tad Mcintosh MD [address] [place] [address] PCP - General Family Medicine 01/17/24 Srikanth Adrian MD #[address] [address] Business Development Executive Cardiovascular Disease - Cardiology 02/02/22 08/06/24 Gloria Martinez MD #2 [facility] [address] [address] Consulting Physician Urology 04/30/24 documented as of this encounter
--- OUTSIDE RECORDS SUMMARY | 2025-06-05 12:46 | XMS_ITS | Encounter Summary ---
Author Organization [facility] Address [address] [place] [address] Phone Care Team Providers Care Adjunct Psychology Faculty Member Name Role Phone Tad Mcintosh MD Primary Care Provider [phone] Gloria Martinez MD Unavailable [phone] Reason for Visit * Reason Comments Medication Refill Encounter Details Date Type Department Care Team (Late st Contact Info) Description 10/20/2024 Refill [facility] #2 [place] [address] Jabier Peck MD #[address] [address] Medication Refill Social History Tobacco Use Types [...] Gender Identity Male 05/03/2023 12:44 PM MACHINE DESIGNER Sexual Orientation Lesbian or Wolff 05/03/2023 12 :44 PM MACHINE DESIGNER documented as of this encounter Miscellaneous Notes * Telephone Encounter - Francine Soto RN - 10/21/2024 8:22 AM CDT PCP: Tad Mcintosh MD documented in this encounter Plan of Treatment Upcoming Encounters Date Type Department Care Team (Late st Contact Info) Description 07/14/2025 1:30 PM MACHINE DESIGNER [facility] [place] #2 [place] [address] Aria Delong APRN, NURSING HOME DIRECTOR #2 [place] [address] documented as of this encounter Visit Diagnoses Not on filedocumented in this encounter Care Teams Adjunct Psychology Faculty Member Relationship Specialty Start Date End Date Tad Mcintosh MD [address] [place] [address] PCP - General Family Medicine 01/17/24 Gloria Martinez MD #[address] [address] Consulting Physician Urology 04/30/24 documented as of this encounter
--- OUTSIDE RECORDS SUMMARY | 2025-06-05 12:46 | XMS_ITS | Encounter Summary ---
Author Organization [facility] Address [address] [place] [address] Phone Care Team Providers Care Manager Of Business Operations Name Role Phone Srikanth Adrian MD Unavailable Tad Romero MD Primary Care Provider [phone] Gloria Martinez MD Unavailable [phone] Reason for Visit * Reason Comments Medication Refill Encounter Details Date Type Department Care Team (Late st Contact Info) Description 05/28/2024 Refill [facility] #2 [place] [address] Jabier Peck MD #[address] [address] Medication Refill Social History Tobacco Use Types [...] CDT Gender Identity Male 05/03/2023 12:44 PM GEOLOGY TECHNICIAN Sexual Orientation Lesbian or Wolff 05/03/2023 12 :44 PM GEOLOGY TECHNICIAN documented as of this encounter Miscellaneous Notes * Telephone Encounter - Francine Soto RN - 05/28/2024 11:10 AM CST PCP: Tad Mcintosh MD OGY TECHNICIAN documented in this encounter Plan of Treatment Upcoming Encounters Date Type Department Care Team (Late st Contact Info) Description 07/14/2025 1:30 PM GEOLOGY TECHNICIAN Office Visit [facility] - Neurology - [place] #2 [place] [address] Aria Delong APRN, BACK TENDER #2 [place] [address] documented as of this encounter Visit Diagnoses Not on filedocumented in this encounter Care Teams Manager Of Business Operations Relationship Specialty Start Date End Date Tad Mcintosh MD [address] [place] [address] PCP - General Family Medicine 01/17/24 Srikanth Adrian MD Integrated Circuit Ic Layout Designer Cardiovascular Disease - Cardiology 02/02/22 08/06/24 Gloria Martinez MD #[address] [address] Consulting Physician Urology 04/30/24 documented as of this encounter
--- OUTSIDE RECORDS SUMMARY | 2025-06-05 12:46 | XMS_ITS | Encounter Summary ---
Author Organization [facility] Address [address] [place] [address] Phone Care Team Providers Care Rough Rib Grader Name Role Phone Jabier Peck MD Primary Care Provider [phone] Srikanth Adrian MD Unavailable Tad Romero MD Primary Care Provider [phone] Gloria Martinez MD Unavailable [phone] Reason for Visit * Reason Onset Date Comments Medication Refill 03/28/2021 Encounter Details Date Type Department Care Team (Late st Contact Info) Description 03/28/2021 Refill [facility] - Family [facility] #2 [place] [address] Jabier Peck MD #[address] [address] Medication Refill Social History Tobacco Use Types [...] 05/03/2023 12 :44 PM MOBILE DEVELOPMENT MANAGER COVID-19 Exposure Response Date Recorded In [...] Dept 03/16/21 Office Visit Kishore Prieto APN, MANAGER INDUSTRIAL [facility] [place] 11/16/20 Office Visit Kishore Prieto APN, MANAGER INDUSTRIAL [facility] 10/20/20 Office Visit [facility]ier Peck MD [facility] [place] 08/20/20 Telemedicine Kishore Prieto APN, RICHARD [facility] [place] 08/06/20 Telemedicine Kishore Prieto APN, MANAGER INDUSTRIAL [facility] 06/22/20 Office Visit Kishore Prieto APN, MANAGER INDUSTRIAL [facility] [place] Showing recent visits within past 365 days and meeting all other requirements Future Appointments Date Type Provider Dept 04/08/21 Appointment Jabier Peck MD [facility] [place] Showing future appointments within next 90 days [...] st Contact Info) Description 07/14/2025 1:30 PM MOBILE DEVELOPMENT MANAGER Office Visit [facility] - Neurology - [place] #2 [place] [address] Aria Delong, VESSEL CREW MEMBER, BESSEMER CONVERTER BLOWER #2 [place] [address] documented as of this encounter Visit Diagnoses Not on filedocumented in this encounter Additional Health Concerns Infection Onset Date Last Indicated Resolved Time COVID - 19 Confirmed 05/31/2022 05/31/2022 023 12:16 AM MOBILE DEVELOPMENT MANAGER Respiratory Rule Out - RPA 02/26/2023 02/26/2023 0 02/26/2023 11:31 AM CDT COVID - 19 02/26/2023 02/26/2023 03/08/2023 12:1 6 AM CDT documented as of this encounter Care Teams Rough Rib Grader Relationship Specialty Start Date End Date Jabier Peck MD #[address] [address] PCP - General Family Medicine 06/22/20 01/16/24 Tad Mcintosh MD [address] [place] [address] PCP - General Family Medicine 01/17/24 Srikanth Adrian MD #2 [facility] [address] [place] [address] Tip Fixer Cardiovascular Disease - Cardiology 02/02/22 08/06/24 Gloria Martinez MD #2 [facility] [address] [place] [address] Consulting Physician Urology 04/30/24 documented as of this encounter
--- OUTSIDE RECORDS SUMMARY | 2025-06-05 12:46 | XMS_ITS | Encounter Summary ---
Author Organization [facility] Address [address] [place] [address] Phone Care Team Providers Care Picture Frame Maker Name Role Phone Jabier Peck MD Primary Care Provider [phone] Srikanth Adrian MD Unavailable Tad Romero MD Primary Care Provider [phone] Gloria Martinez MD Unavailable [phone] Reason for Visit * Reason Comments Medication Refill Encounter Details Date Type Department Care Team (Late st Contact Info) Description 02/27/2023 Refill [facility] #2 [place] [address] Jabier Peck MD #[address] [address] Medication Refill Social History Tobacco Use Types [...] CDT Gender Identity Male 05/03/2023 12:44 PM CYTOTECHNOLOGIST Sexual Orientation Lesbian or Wolff 05/03/2023 12 :44 PM CYTOTECHNOLOGIST COVID-19 Exposure Response Date Recorded In the [...] st Contact Info) Description 07/14/2025 1:30 PM CYTOTECHNOLOGIST Office Visit [facility] - Neurology - [place] #2 [place] [address] Aria Delong, FLIGHT PHYSICIAN, CAMERA SYSTEMS ENGINEER #2 [place] [address] documented as of this encounter Visit Diagnoses Diagnosis Cervical radiculopathy Brachial neuritis or radiculitis nos documented in this encounter Additional Health Concerns Infection Onset Date Last Indicated Resolved Time COVID - 19 02/26/2023 02/26/2023 03/08/2023 12:1 6 AM CDT documented as of this encounter Care Teams Picture Frame Maker Relationship Specialty Start Date End Date Jabier Peck MD #2 [facility] [address] [place] [address] PCP - General Family Medicine 06/22/20 01/16/24 Tad Mcintosh MD [address] [place] [address] PCP - General Family Medicine 01/17/24 Srikanth Adrian MD #2 [facility] [address] [place] [address] Sort Manager Cardiovascular Disease - Cardiology 02/02/22 08/06/24 Gloria Martinez MD #2 [facility] [address] [place] [address] Consulting Physician Urology 04/30/24 documented as of this encounter
--- OUTSIDE RECORDS SUMMARY | 2025-06-05 12:46 | XMS_ITS | Encounter Summary ---
Author Organization [facility] Address [address] [place] [address] Phone Care Team Providers Care Laborer Sawmill Name Role Phone Jabier Peck MD Primary Care Provider [phone] Srikanth Adrian MD Unavailable Tad Romero MD Primary Care Provider [phone] Gloria Martinez MD Unavailable [phone] Reason for Visit * Reason Comments Medication Refill Encounter Details Date Type Department Care Team (Late st Contact Info) Description 02/22/2022 Refill [facility] Family [facility] #2 [place] [address] Jabier Peck MD #[address] [address] Medication Refill Social History Tobacco Use Types [...] CDT Gender Identity Male 05/03/2023 12:44 PM RACING SECRETARY AND HANDICAPPER Sexual Orientation Lesbian or Wolff 05/03/2023 12 :44 PM RACING SECRETARY AND HANDICAPPER COVID-19 Exposure Response Date Recorded In the [...] [place] 03/16/21 Office Visit Kishore Prieto APRN, PLANT ELECTRICAL ENGINEER [facility] [place] Showing recent visits within past 365 days and meeting all other requirements Future Appointments Date Type Provider Dept 02/24/22 Appointment Kishore Prieto, SALON PROFESSIONAL, PLANT ELECTRICAL ENGINEER [facility] future appointments within next 90 days and meeting all other requirements documented in this encounter Plan of Treatment Upcoming Encounters Date Type Department Care Team (Late st Contact Info) Description 07/14/2025 1:30 PM RACING SECRETARY AND HANDICAPPER [facility] - Neurology - [place] #2 [place] [address] Aria Delong APRN, DIMPLING MACHINE OPERATOR #2 [place] [address] documented as of this encounter Visit Diagnoses Diagnosis Cervical radiculopathy Brachial neuritis or radiculitis nos documented in this encounter Additional Health Concerns Infection Onset Date Last Indicated Resolved Time COVID - 19 Confirmed 05/31/2022 05/31/2022 023 12:16 AM RACING SECRETARY AND HANDICAPPER Respiratory Rule Out - RPA 02/26/2023 02/26/2023 0 02/26/2023 11:31 AM CDT COVID - 19 02/26/2023 02/26/2023 03/08/2023 12:1 6 AM CDT documented as of this encounter Care Teams Laborer Sawmill Relationship Specialty Start Date End Date Jabier Peck MD #[address] [address] PCP - General Family Medicine 06/22/20 01/16/24 Tad Mcintosh MD [address] [place] [address] PCP - General Family Medicine 01/17/24 Srikanth Adrian MD #[address] [address] Warehouse Shift Supervisor Cardiovascular Disease - Cardiology 02/02/22 08/06/24 Gloria Martinez MD #[address] [address] Consulting Physician Urology 04/30/24 documented as of this encounter
--- OUTSIDE RECORDS SUMMARY | 2025-06-05 12:46 | XMS_ITS | Encounter Summary ---
Author Organization [facility] Address [address] [place] [address] Phone Care Team Providers Care Heat Treat Inspector Name Role Phone Jabier Peck MD Primary Care Provider [phone] Srikanth Adrian MD Unavailable Tad Romero MD Primary Care Provider [phone] Gloria Martinez MD Unavailable [phone] Reason for Visit * Reason Comments Medication Refill Encounter Details Date Type Department Care Team (Late st Contact Info) Description 04/11/2021 Refill [facility] Family [facility] #2 [place] [address] Kishore Prieto APRN, WEIGHT CLERK #[address] [address] Medication Refill Social History Tobacco Use Types [...] Gender Identity Male 05/03/2023 12:44 PM HEALTH CLAIMS EXAMINER Sexual Orientation Lesbian or Wolff 05/03/2023 12 :44 PM HEALTH CLAIMS EXAMINER COVID-19 Exposure Response Date Recorded In the last month, have you been in contact with someone who was confirmed or suspected to have Coronavirus / COVID-19? No / Unsure 04/14/2021 12:48 PM CDT documented as of this encounter Miscellaneous Notes * Telephone Encounter - Sabina Holly RN - 04/12/2021 12:20 PM CDT Tonny calling in from [facility]. He is requesting to find out [...] Contact Info) Description 07/14/2025 1:30 PM HEALTH CLAIMS EXAMINER Office Visit [facility] - Neurology [facility] #2 [place] [address] Aria Delong APRN, GROUP CARE WORKER #2 [place] [address] documented as of this encounter Visit Diagnoses Diagnosis Cervical radiculopathy Brachial neuritis or radiculitis nos documented in this encounter Additional Health Concerns Infection Onset Date Last Indicated Resolved Time COVID - 19 Confirmed 05/31/2022 05/31/2022 023 12:16 AM HEALTH CLAIMS EXAMINER Respiratory Rule Out - RPA 02/26/2023 02/26/2023 0 02/26/2023 11:31 AM CDT COVID - 19 02/26/2023 02/26/2023 03/08/2023 12:1 6 AM CDT documented as of this encounter Care Teams Heat Treat Inspector Relationship Specialty Start Date End Date Jabier Peck MD #2 [facility] [address] [place] [address] PCP - General Family Medicine 06/22/20 01/16/24 Tad Mcintosh MD [address] [place] [address] PCP - General Family Medicine 01/17/24 Srikanth Adrian MD #2 [facility] [address] [place] [address] Digital Asset Specialist Cardiovascular Disease - Cardiology 02/02/22 08/06/24 Gloria Martinez MD #2 [facility] [address] [place] [address] Consulting Physician Urology 04/30/24 documented as of this encounter
--- OUTSIDE RECORDS SUMMARY | 2025-06-05 12:46 | XMS_ITS | Encounter Summary ---
Author Organization [facility] Address [address] [place] [address] Phone Care Team Providers Care Silk Presser Name Role Phone Jabier Peck MD Primary Care Provider [phone] Srikanth Adrian MD Unavailable Tad Romero MD Primary Care Provider [phone] Gloria Martinez MD Unavailable [phone] Reason for Visit * Reason Comments Medication Refill Encounter Details Date Type Department Care Team (Late st Contact Info) Description 03/19/2023 Refill [facility] #2 [place] [id number] Jabier Peck MD #[address] [address] Medication Refill Social History Tobacco Use Types [...] Gender Identity Male 05/03/2023 12:44 PM LABORER GOLF COURSE Sexual Orientation Lesbian or Wolff 05/03/2023 12 :44 PM LABORER GOLF COURSE COVID-19 Exposure Response Date Recorded In the [...] [place] 11/30/22 Telemedicine Kishore Prieto APRN, CNP [facility] 08/21/22 Office Visit Jabier Peck MD [facility] [place] 07/20/22 Office Visit Gerri Rocha MD [facility] 05/03/22 Telemedicine [place]ier [facility]ck [place] [facility] [place] [place] Showing [...] Contact Info) Description 07/14/2025 1:30 PM LABORER GOLF COURSE Office Visit [facility] - Neurology [facility] #[address] [place] [address] Aria Delong, ROLL FILLER, TILE MACHINE OPERATOR #2 [place] [address] documented as of this encounter Visit Diagnoses Not on filedocumented in this encounter Care Teams Silk Presser Relationship Specialty Start Date End Date Jabier Peck MD #2 [facility] [address] [place] [address] PCP - General Family Medicine 06/22/20 01/16/24 Tad Mcintosh MD [address] [place] [address] PCP - General Family Medicine 01/17/24 Srikanth Adrian MD #2 [facility] [address] [place] [address] Dance Hall Host/Hostess Cardiovascular Disease - Cardiology 02/02/22 08/06/24 Gloria Martinez MD #2 [facility] [address] [place] [address] Consulting Physician Urology 04/30/24 documented as of this encounter
--- OUTSIDE RECORDS SUMMARY | 2025-06-05 12:46 | XMS_ITS | Encounter Summary ---
Author Organization [facility] Address [address] [place] [address] Phone Care Team Providers Care Traffic Counter Name Role Phone Jabier Peck MD Primary Care Provider [phone] Srikanth Adrian MD Unavailable Tad Romero MD Primary Care Provider [phone] Gloria Martinez MD Unavailable [phone] Reason for Visit * Reason Comments Medication Refill Encounter Details Date Type Department Care Team (Late st Contact Info) Description 12/07/2023 Refill [facility] #2 [place] [id number] Jabier Peck MD #[address] [address] Medication Refill Social History Tobacco Use Types [...] CDT Gender Identity Male 05/03/2023 12:44 PM PERSONAL ATTENDANT Sexual Orientation Lesbian or Wolff 05/03/2023 12 :44 PM PERSONAL ATTENDANT documented as of this encounter Miscellaneous Notes * Telephone Encounter - Sheyla Burgess RN - 12/07/2023 3:21 PM CDT Per nursing clinical judgement, provider to review and approve the medication(s) order(s) if appropriate. Requested Prescriptions Pending Prescriptions Disp Refills albuterol 108 (90 Base) MCG/ACT Aerosol Solution [Pharmacy Med Name: ALBUTEROL HFA 90 MCG INHALER (MN] 8.5 g Sig: TRANSFERRED: 06/15/23 -READ RX [...] 05/03/23 Office Visit Piper Toro APRN, [facility] [place] 02/26/23 Office Visit Kishore Prieto APRN, R[facility] [place] 12/18/22 Telemedicine Jabier Peck MD [facility] Showing recent visits within past 365 days and meeting all other requirements Future Appointments No visits were found meeting these conditions. Showing future appointments within next 90 days and meeting all other requirements documented in this encounter Plan of Treatment Upcoming Encounters Date Type Department Care Team (Late st Contact Info) Description 07/14/2025 1:30 PM PERSONAL ATTENDANT [facility] - [place] #[address] [place] [address] Aria Delogn APRN, TIMBER RIDER [address] [place] [address] documented as of this encounter Visit Diagnoses Not on filedocumented in this encounter Care Teams Traffic Counter Relationship Specialty Start Date End Date Jabier Peck MD #2 [facility] [address] [place] [address] PCP - General Family Medicine 06/22/20 01/16/24 Tad Mcintosh MD [address] [place] [address] PCP - General Family Medicine 01/17/24 Srikanth Adrian MD #2 [facility] [address] [place] [address] Maid Supervisor Cardiovascular Disease - Cardiology 02/02/22 08/06/24 Gloria Martinez MD #2 [facility] [address] [place] [address] Consulting Physician Urology 04/30/24 documented as of this encounter
--- OUTSIDE RECORDS SUMMARY | 2025-06-05 12:46 | XMS_ITS | Encounter Summary ---
Author Organization [facility] Address [address] [place] [address] Phone Care Team Providers Care Air Pollution Inspector Name Role Phone Jabier Peck MD Primary Care Provider [phone] Srikanth Adrian MD Unavailable Tad Romero MD Primary Care Provider [phone] Gloria Martinez MD Unavailable [phone] Reason for Visit * Reason Onset Date Comments Medication Refill 03/23/2021 Encounter Details Date Type Department Care Team (Late st Contact Info) Description 03/23/2021 Refill [facility] Family [facility] #2 [place] [address] Jabier Peck MD #[address] [address] Medication Refill Social History Tobacco Use Types [...] Gender Identity Male 05/03/2023 12:44 PM LINING FINISHER Sexual Orientation Lesbian or Wolff 05/03/2023 12 :44 PM LINING FINISHER COVID-19 Exposure Response Date Recorded In the [...] Outpatient Visits 1 week ago Cervical radiculopathy [facility] - Kishore Alonso APN, CENTRAL SERVICE TECHNICIAN 4 months ago Dermatitis [facility] - Kishore Alonso APN, CENTRAL SERVICE TECHNICIAN 5 months ago Diet-controlled diabetes mellitus (HCC) [facility] - Jabier Aldridge MD 7 months ago Thrombophilia (HCC) [facility] - Kishore Alonso APN, CENTRAL SERVICE TECHNICIAN 7 months ago Obstructive sleep apnea syndrome [facility] - [place] Morgan APN, CENTRAL SERVICE TECHNICIAN Upcoming Appointments Future Appointments Tomorrow [facility] RESP ROOM1 [facility] Respiratory Therapy, [facility] In 1 week Sofy Bwoen, PT [facility] Rehab at [facility] In 2 weeks Jabier Peck MD [facility] Family Medicine [facility] In 1 month Aria Delong APN, EDUCATIONAL RESOURCE CENTER TEACHER [facility] Neurology [facility] In 5 months Jt Morillo MD [facility] - Cancer Center Oncology Services, [facility] PETROLOGIST - Recent and Past Visits Recent Visits Date Type Provider Dept 03/16/21 Office Visit Kishore Prieto APN, RICHARD [facility] 11/16/20 Office Visit Kishore Prieto APN, RICHARD [...] Dept 04/08/21 Appointment Jabier Peck MD [facility] [place] Showing future appointments within next [...] Contact Info) Description 07/14/2025 1:30 PM LINING FINISHER Office Visit [facility] - Neurology - [place] [address] [place] [address] Aria Delong APRN, EDUCATIONAL RESOURCE CENTER TEACHER #2 [place] [address] documented as of this encounter Visit Diagnoses Not on filedocumented in this encounter Additional Health Concerns Infection Onset Date Last Indicated Resolved Time COVID - 19 Confirmed 05/31/2022 05/31/2022 023 12:16 AM LINING FINISHER Respiratory Rule Out - RPA 02/26/2023 02/26/2023 0 02/26/2023 11:31 AM CDT COVID - 19 02/26/2023 02/26/2023 03/08/2023 12:1 6 AM CDT documented as of this encounter Care Teams Air Pollution Inspector Relationship Specialty Start Date End Date Jabier Peck MD #2 [facility] [address] [place] [address] PCP - General Family Medicine 06/22/20 01/16/24 Tad Mcintosh MD [address] [place] [address] PCP - General Family Medicine 01/17/24 Srikanth Adrian MD #2 [facility] [address] [place] [address] Home Improvement Installer Cardiovascular Disease - Cardiology 02/02/22 08/06/24 Gloria Martinez MD #2 [facility] [address] [place] [address] Consulting Physician Urology 04/30/24 documented as of this encounter
--- OUTSIDE RECORDS SUMMARY | 2025-06-05 12:46 | XMS_ITS | Encounter Summary ---
Author Organization [facility] Address [address] [place] [address] Phone Care Team Providers Care Service Counter Cashier Name Role Phone Jabier Peck MD Primary Care Provider [phone] Srikanth Adrian MD Unavailable Tad Romero MD Primary Care Provider [phone] Gloria Martinez MD Unavailable [phone] Reason for Visit * Reason Comments Medication Refill Encounter Details Date Type Department Care Team (Late st Contact Info) Description 01/06/2021 Refill [facility] - Family Medicine - [place] #[address] [place] [address] Jt Morillo MD [address] [place] [address] Medication Refill Social History Tobacco Use Types [...] CDT Gender Identity Male 05/03/2023 12:44 PM DOG BEHAVIORIST Sexual Orientation Lesbian or Wolff 05/03/2023 12 :44 PM DOG BEHAVIORIST documented as of this encounter Miscellaneous Notes * Telephone Encounter - Aisha Escamilla RN - 01/06/2021 11:22 AM CDT Refilled Eliquis per last F/U note. documented in this encounter Plan of Treatment Upcoming Encounters Date Type Department Care Team (Late st Contact Info) Description 07/14/2025 1:30 PM DOG BEHAVIORIST Office Visit [facility] - Neurology - [place] [address] [place] [address] Aria Delong APRN, GARBAGE PICK UP MAN #[address] [place] [address] documented as of this encounter Visit Diagnoses Diagnosis History of thrombophilia associated with MTHFR mutation documented in this encounter Additional Health Concerns Infection Onset Date Last Indicated Resolved Time COVID - 19 Confirmed 05/31/2022 05/31/2022 023 12:16 AM DOG BEHAVIORIST Respiratory Rule Out - RPA 02/26/2023 02/26/2023 0 02/26/2023 11:31 AM CDT COVID - 19 02/26/2023 02/26/2023 03/08/2023 12:1 6 AM CDT documented as of this encounter Care Teams Service Counter Cashier Relationship Specialty Start Date End Date Jabier Peck MD #[address] [address] PCP - General Family Medicine 06/22/20 01/16/24 Tad Mcintosh MD [address] [place] [address] PCP - General Family Medicine 01/17/24 Srikanth Adrian MD #[address] [place] [address] Loop Puller Cardiovascular Disease - Cardiology 02/02/22 08/06/24 Gloria Martinez MD #2 [facility] [address] [place] [address] Consulting Physician Urology 04/30/24 documented as of this encounter
--- OUTSIDE RECORDS SUMMARY | 2025-06-05 12:46 | XMS_ITS | Encounter Summary ---
Author Organization [facility] Address [address] [place] [address] Phone Care Team Providers Care Retail Sales Representative Name Role Phone Tad Mcintosh MD Primary Care Provider [phone] Gloria Martinez MD Unavailable [phone] Reason for Visit * Reason Comments Medication Refill Encounter Details Date Type Department Care Team (Late st Contact Info) Description 10/21/2024 Refill [facility] #2 [place] [id number] Jabier Peck MD #[address] [address] Medication Refill Social History Tobacco Use Types [...] CDT Gender Identity Male 05/03/2023 12:44 PM TEMPLE MARKER Sexual Orientation Lesbian or Wolff 05/03/2023 12 :44 PM TEMPLE MARKER documented as of this encounter Miscellaneous Notes * Telephone Encounter - Francine Soto RN - 10/22/2024 9:04 AM CDT PCP: Tad Mcintosh MD documented in this encounter Plan of Treatment Upcoming Encounters Date Type Department Care Team (Late st Contact Info) Description 07/14/2025 1:30 PM TEMPLE MARKER [facility] - [place] #2 [place] [address] Aria Delong APRN, TOP LIFT AND AUTOMATIC WINDOW REPAIRER #2 [place] [address] documented as of this encounter Visit Diagnoses Not on filedocumented in this encounter Care Teams Retail Sales Representative Relationship Specialty Start Date End Date Tad Mcintosh MD [address] [place] [address] PCP - General Family Medicine 01/17/24 Gloria Martinez MD #[address] [address] Consulting Physician Urology 04/30/24 documented as of this encounter
--- OUTSIDE RECORDS SUMMARY | 2025-06-05 12:46 | XMS_ITS | Encounter Summary ---
Author Organization [facility] Address [address] [place] [address] Phone Care Team Providers Care Superintendent Geophysical Laboratory Name Role Phone Jabier Peck MD Primary Care Provider [phone] Srikanth Adrian MD Unavailable Tad Romero MD Primary Care Provider [phone] Gloria Martinez MD Unavailable [phone] Reason for Visit * Reason Comments Medication Refill Encounter Details Date Type Department Care Team (Late st Contact Info) Description 05/11/2021 Refill [facility] Family [facility] #2 [place] [address] Jabier Peck MD #[address] [address] Medication Refill Social History Tobacco Use Types [...] Gender Identity Male 05/03/2023 12:44 PM CERTIFIED PHYSICIAN ASSISTANT Sexual Orientation Lesbian or Wolff 05/03/2023 12 :44 PM CERTIFIED PHYSICIAN ASSISTANT COVID-19 Exposure Response Date Recorded In the last month, have you been in contact with someone who was confirmed or suspected to have Coronavirus / COVID-19? No / Unsure 05/05/2021 12:33 PM CERTIFIED PHYSICIAN ASSISTANT documented as of this encounter Miscellaneous [...] [place] 06/22/20 Office Visit Kishore Prieto APRN, BOAT CANVAS INSTALLER [facility] [place] Showing recent visits within past 365 days and meeting all other requirements Future Appointments Date Type Provider Dept 08/01/21 Appointment Jabier Peck MD [facility] Showing future appointments within next 90 days and meeting all other requirements IFIED PHYSICIAN ASSISTANT documented in this encounter Plan of Treatment Upcoming Encounters Date Type Department Care Team (Late st Contact Info) Description 07/14/2025 1:30 PM CERTIFIED PHYSICIAN ASSISTANT Office Visit [facility] - Neurology - [place] #2 [place] [address] Aria Delong APRN, HYPERTRICHOLOGIST #2 [place] [address] documented as of this encounter Visit Diagnoses Diagnosis Cervical radiculopathy Brachial neuritis or radiculitis nos documented in this encounter Additional Health Concerns Infection Onset Date Last Indicated Resolved Time COVID - 19 Confirmed 05/31/2022 05/31/2022 023 12:16 AM CERTIFIED PHYSICIAN ASSISTANT Respiratory Rule Out - RPA 02/26/2023 02/26/2023 0 02/26/2023 11:31 AM CDT COVID - 19 02/26/2023 02/26/2023 03/08/2023 12:1 6 AM CDT documented as of this encounter Care Teams Superintendent Geophysical Laboratory Relationship Specialty Start Date End Date Jabier Peck MD #2 [facility] [address] [place] [address] PCP - General Family Medicine 06/22/20 01/16/24 Tad Mcintosh MD [address] [place] [address] PCP - General Family Medicine 01/17/24 Srikanth Adrian MD #2 [facility] [address] [place] [address] Drywall Installer Cardiovascular Disease - Cardiology 02/02/22 08/06/24 Gloria Martinez MD #2 [facility] [address] [place] [address] Consulting Physician Urology 04/30/24 documented as of this encounter
--- OUTSIDE RECORDS SUMMARY | 2025-06-05 12:46 | XMS_ITS | Encounter Summary ---
Author Organization [facility] Address [address] [place] [address] Phone Care Team Providers Care Set Up Mechanic Stamping Machines Name Role Phone Jabier Peck MD Primary Care Provider [phone] Srikanth Adrian MD Unavailable Tad Romero MD Primary Care Provider [phone] Gloria Martinez MD Unavailable [phone] Reason for Visit * Reason Comments Medication Refill Encounter Details Date Type Department Care Team (Late st Contact Info) Description 07/22/2021 Refill [facility] - Cancer Center Oncology Services [address] [place] [address] Jt Morillo MD [address] [place] [address] Medication Refill Social History Tobacco Use Types [...] Gender Identity Male 05/03/2023 12:44 PM RN CIRCULATING Sexual Orientation Lesbian or Wolff 05/03/2023 12 :44 PM RN CIRCULATING COVID-19 Exposure Response Date Recorded In the last month, have you been in contact with someone who was confirmed or suspected to have Coronavirus / COVID-19? No / Unsure 07/14/2021 12:17 PM RN CIRCULATING documented as of this encounter Miscellaneous Notes * Telephone Encounter - Michelle Wharton RN - 07/22/2021 2:26 PM RN CIRCULATING Refilled Eliquis CIRCULATING documented in this encounter Plan of Treatment Upcoming Encounters Date Type Department Care Team (Late st Contact Info) Description 07/14/2025 1:30 PM RN CIRCULATING Office Visit [facility] - Neurology [facility] #2 [place] [address] Aria Delong APRN, HEAT SEALING MACHINE OPERATOR #[address] [place] [address] documented as of this encounter Visit Diagnoses Diagnosis History of thrombophilia associated with MTHFR mutation documented in this encounter Additional Health Concerns Infection Onset Date Last Indicated Resolved Time COVID - 19 Confirmed 05/31/2022 05/31/2022 023 12:16 AM RN CIRCULATING Respiratory Rule Out - RPA 02/26/2023 02/26/2023 0 02/26/2023 11:31 AM CDT COVID - 19 02/26/2023 02/26/2023 03/08/2023 12:1 6 AM CDT documented as of this encounter Care Teams Set Up Mechanic Stamping Machines Relationship Specialty Start Date End Date Jabier Peck MD #[address] [address] PCP - General Family Medicine 06/22/20 01/16/24 Tad Mcintosh MD [address] [place] [address] PCP - General Family Medicine 01/17/24 Srikanth Adrian MD #2 [facility] [address] [place] [address] Crystal Growing Technician Cardiovascular Disease - Cardiology 02/02/22 08/06/24 Gloria Martinez MD #[address] [facility] [address] [place] [address] Consulting Physician Urology 04/30/24 documented as of this encounter
--- OUTSIDE RECORDS SUMMARY | 2025-06-05 12:46 | XMS_ITS | Encounter Summary ---
Author Organization [facility] Address [address] [place] [address] Phone Care Team Providers Care Professor Of Philosophy Name Role Phone Jabier Peck MD Primary Care Provider [phone] Srikanth Adrian MD Unavailable Tad Romero MD Primary Care Provider [phone] Gloria Martinez MD Unavailable [phone] Reason for Visit * Reason Comments Medication Refill Encounter Details Date Type Department Care Team (Late st Contact Info) Description 06/16/2021 Refill [facility] #2 [place] [address] Jabier Peck MD #[address] [address] Medication Refill Social History Tobacco Use Types [...] Identity Male 05/03/2023 12:44 PM SALES AGENT [employer]INE INSURANCE Sexual Orientation Lesbian or Wolff 05/03/2023 12 :44 PM SALES AGENT [employer] COVID-19 Exposure Response Date Recorded In the last month, have you been in contact with someone who was confirmed or suspected to have Coronavirus / COVID-19? No / Unsure 06/16/2021 1:10 PM SALES AGENT [employer] INSUR[employer] documented as of this encounter Miscellaneous Notes [...] Dept 04/29/21 [facility] [place] 03/16/21 Office Visit Kishore Prieto APRN, RICHARD [facility] [place] 11/16/20 Office Visit Kishore Prieto APRN, RICHARD [facility] 10/20/20 Office Visit Jabier Peck MD [facility] 08/20/20 Telemedicine Kishore Prieto APRN, RICHARD [facility] [place] 08/06/20 Telemedicine Kishore Prieto APRN, RICHARD [facility] [place] 06/22/20 Office Visit Kishore Prieto APRN, SUMO WRESTLER [facility] [place] Showing recent visits within past 365 days and meeting all other requirements Future Appointments Date Type Provider Dept 08/01/21 Appointment Jabier Peck MD [facility] [place] Showing future appointments within next 90 days and meeting all other requirements S AGENT [employer] INSURANCE documented in this encounter Plan of Treatment Upcoming Encounters Date Type Department Care Team (Late st Contact Info) Description 07/14/2025 1:30 PM SALES AGENT [employer] Office Visit [facility] - Neurology - [place] #[address] [place] [address] Aria Delong, RESIDENCY PROGRAM COORDINATOR, CARPET BINDER #2 [place] [address] documented as of this encounter Visit Diagnoses Diagnosis Cervical radiculopathy Brachial neuritis or radiculitis nos documented in this encounter Additional Health Concerns Infection Onset Date Last Indicated Resolved Time COVID - 19 Confirmed 05/31/2022 05/31/2022 023 12:16 AM SALES AGENT [employer] INS[employer]ANCE Respiratory Rule Out - RPA 02/26/2023 02/26/2023 0 02/26/2023 11:31 AM CDT COVID - 19 02/26/2023 02/26/2023 03/08/2023 12:1 6 AM CDT documented as of this encounter Care Teams Professor Of Philosophy Relationship Specialty Start Date End Date Jabier Peck MD #[address] [address] PCP - General Family Medicine 06/22/20 01/16/24 Tad Mcintosh MD [address] [place] [address] PCP - General Family Medicine 01/17/24 Srikanth Adrian MD #[address] [address] Shipping Helper Cardiovascular Disease - Cardiology 02/02/22 08/06/24 Gloria Martinez MD #2 [facility] [address] [place] [address] Consulting Physician Urology 04/30/24 documented as of this encounter
--- OUTSIDE RECORDS SUMMARY | 2025-06-05 12:47 | XMS_ITS | Encounter Summary ---
Author Organization [facility] Address [address] [place] [address] Phone Care Team Providers Care Commissions Analyst Name Role Phone Jabier Peck MD Primary Care Provider [phone] Srikanth Adrian MD Unavailable Tad Romero MD Primary Care Provider [phone] Gloria Martinez MD Unavailable [phone] Reason for Visit * Reason Onset Date Comments Medication Refill Requesting new referral to [facility] 11/10/2022 Encounter Details Date Type Department Care Team (Late st Contact Info) Description 11/10/2022 [facility]ill [facility] - [place] [address] [place] [id number] Jabier Peck MD #[address] [address] Medication Refill; Requesting new referral to [facility] Social History Tobacco Use Types [...] CDT Gender Identity Male 05/03/2023 12:44 PM REIMBURSEMENT CONSULTANT Sexual Orientation Lesbian or Wolff 05/03/2023 12 :44 PM REIMBURSEMENT CONSULTANT documented as of this encounter Miscellaneous Notes * Telephone Encounter - Nikky Irby - 11/10/2022 1:42 PM CDT RFC: Tae Kent is requesting a new referral to [facility]. . Please call Tae (relationship [...] [facility] 12/13/21 Telemedicine Kishore Prieto APRN, RICHARD [facility] [place] Showing recent visits within past 365 [...] 02/24/22 Office Visit Kishore Priteo APRN, RICHARD [facility] 01/31/22 Office Visit Kishore Prieto APRN, RICHARD [facility] 12/13/21 Telemedicine Kishore Prieto APRN, RICHARD [facility] [place] Showing recent visits within past 365 [...] st Contact Info) Description 07/14/2025 1:30 PM REIMBURSEMENT CONSULTANT Office Visit [facility] 2[facility] - Neurology - [place] [address] [place] [address] Aria Delong APRN, CRISIS THERAPIST #[facility] [place] [address] documented as of this encounter Visit Diagnoses Diagnosis Cervical radiculopathy Brachial neuritis or radiculitis nos documented in this encounter Additional Health Concerns Infection Onset Date Last Indicated Resolved Time Respiratory Rule Out - RPA 02/26/2023 02/26/2023 0 02/26/2023 11:31 AM CDT COVID - 19 02/26/2023 02/26/2023 03/08/2023 12:1 6 AM CDT documented as of this encounter Care Teams Commissions Analyst Relationship Specialty Start Date End Date Jabier Peck MD #[address] [facility] [address] [place] [address] PCP - General Family Medicine 06/22/20 01/16/24 Tad Mcintosh MD [address] [place] [address] PCP - General Family Medicine 01/17/24 Srikanth Adrian MD #[address] [facility] [address] [place] [address] Statistician Cardiovascular Disease - Cardiology 02/02/22 08/06/24 Gloria Martinez MD #2 [facility] [address] [place] [address] Consulting Physician Urology 04/30/24 documented as of this encounter
--- OUTSIDE RECORDS SUMMARY | 2025-06-05 12:47 | XMS_ITS | Encounter Summary ---
Author Organization [facility] Address [address] [place] [address] Phone Care Team Providers Care Gas Pump Attendant Name Role Phone Jabier Peck MD Primary Care Provider [phone] Srikanth Adrian MD Unavailable Tad Romero MD Primary Care Provider [phone] Gloria Martinez MD Unavailable [phone] Reason for Visit * Reason Comments Medication Refill Encounter Details Date Type Department Care Team (Late st Contact Info) Description 06/21/2022 Refill [facility] #2 [place] [address] Jabier Peck MD #[address] [address] Medication Refill Social History Tobacco Use Types [...] CDT Gender Identity Male 05/03/2023 12:44 PM ROUTE AGENT Sexual Orientation Lesbian or Wolff 05/03/2023 12 :44 PM ROUTE AGENT COVID-19 Exposure Response Date Recorded In the last 10 days, have tabby u been in contact with someone who was confirmed or suspected to have Coronavirus/COVID-19? Yes 05/31/2022 2:12 PM ROUTE AGENT documented as of this encounter Miscellaneous Notes * Telephone Encounter - Libertad Shearer, RN - 06/21/2022 1:33 PM CST Name from pharmacy: [facility] Will file in chart as: [facility] Caps[facility] The original prescription was discontinued on 02/24/2022 by Kishore Prieto APRN, CARBON FURNACE OPERATOR HELPER for thefollowing reason: Med List Clean Up. Renewing this prescription may not be appropriate. E AGENT documented in this encounter Plan of Treatment Upcoming Encounters Date Type Department Care Team (Late st Contact Info) Description 07/14/2025 1:30 PM ROUTE AGENT Office Visit [facility] - Neurology [facility] [address] [place] [address] Aria Delong APRN, HUMAN RESOURCES VICE PRESIDENT #2 [place] [address] documented as of this encounter Visit Diagnoses Not on filedocumented in this encounter Additional Health Concerns Infection Onset Date Last Indicated Resolved Time Respiratory Rule Out - RPA 02/26/2023 02/26/2023 0 02/26/2023 11:31 AM CDT COVID - 19 02/26/2023 02/26/2023 03/08/2023 12:1 6 AM CDT documented as of this encounter Care Teams Gas Pump Attendant Relationship Specialty Start Date End Date Jabier Peck MD #[address] [address] PCP - General Family Medicine 06/22/20 01/16/24 Tad Mcintosh MD [address] [place] [address] PCP - General Family Medicine 01/17/24 Srikanth Adrian MD #[address] [facility] [address] [place] [address] Emergency Medical Services Coordinator Cardiovascular Disease - Cardiology 02/02/22 08/06/24 Gloria Martinez MD #2 [facility] [address] [place] [address] Consulting Physician Urology 04/30/24 documented as of this encounter
--- OUTSIDE RECORDS SUMMARY | 2025-06-05 12:47 | XMS_ITS | Encounter Summary ---
Author Organization [facility] Address [address] [place] [address] Phone Care Team Providers Care Lathe Scalper Operator Name Role Phone Jabier Peck MD Primary Care Provider [phone] Srikanth Adrian MD Unavailable Tad Romero MD Primary Care Provider [phone] Gloria Martinez MD Unavailable [phone] Reason for Visit * Reason Onset Date Comments Advice Only 12/18/2022 Encounter Details Date Type Department Care Team (Late st Contact Info) Description 12/18/2022 Telephone [facility] [address] [place] [address] Jabier Peck MD #[address] [address] Advice Only Social History Tobacco Use Types [...] CDT Gender Identity Male 05/03/2023 12:44 PM TUBE SORTER Sexual Orientation Lesbian or Wolff 05/03/2023 12 :44 PM TUBE SORTER documented as of this encounter Miscellaneous Notes [...] st Contact Info) Description 07/14/2025 1:30 PM TUBE SORTER Office Visit [facility] - Neurology [facility] #2 [place] [address] Aria Delong, CERTIFIED NURSING ASSISTANT, FREIGHT CLERK #2 [place] [address] documented as of this encounter Visit Diagnoses Not on filedocumented in this encounter Additional Health Concerns Infection Onset Date Last Indicated Resolved Time Respiratory Rule Out - RPA 02/26/2023 02/26/2023 0 02/26/2023 11:31 AM CDT COVID - 19 02/26/2023 02/26/2023 03/08/2023 12:1 6 AM CDT documented as of this encounter Care Teams Lathe Scalper Operator Relationship Specialty Start Date End Date Jabier Peck MD #[address] [address] PCP - General Family Medicine 06/22/20 01/16/24 Tad Mcintosh MD [address] [place] [address] PCP - General Family Medicine 01/17/24 Srikanth Adrian MD #[address] [address] Oiling Machine Operator Cardiovascular Disease - Cardiology 02/02/22 08/06/24 Gloria Martinez MD #[address] [facility] [address] [place] [address] Consulting Physician Urology 04/30/24 documented as of this encounter
--- OUTSIDE RECORDS SUMMARY | 2025-06-05 12:47 | XMS_ITS | Encounter Summary ---
Author Organization [facility] Address [address] [place] [address] Phone Care Team Providers Care Cross Cut Saw Operator Name Role Phone Jabier Peck MD Primary Care Provider [phone] Srikanth Adrian MD Unavailable Tad Romero MD Primary Care Provider [phone] Gloria Martinez MD Unavailable [phone] Reason for Visit * Reason Comments Medication Refill Encounter Details Date Type Department Care Team (Late st Contact Info) Description 05/14/2022 Refill [facility] #2 [place] [address] Jabier Peck MD #[address] [address] Medication Refill Social History Tobacco Use Types [...] Gender Identity Male 05/03/2023 12:44 PM HAND FORMER HELPER Sexual Orientation Lesbian or Wolff 05/03/2023 12 :44 PM HAND FORMER HELPER COVID-19 Exposure Response Date Recorded In the last 10 days, have yo u been in contact with someone who was confirmed or suspected to have Coronavirus/COVID-19? No / Unsure 05/10/2022 2:32 PM HAND FORMER HELPER documented as of this encounter Miscellaneous Notes * Telephone Encounter - Anjali Hartley RN - 05/15/2022 9:34 AM HAND FORMER HELPER PDMP 04/18/2022 #45, 15 day supply. Medication [...] 90 days and meeting all other requirements FORMER HELPER documented in this encounter Plan of Treatment Upcoming Encounters Date Type Department Care Team (Late st Contact Info) Description 07/14/2025 1:30 PM HAND FORMER HELPER Office Visit [facility] - Neurology - [place] #[address] [place] [address] Aria Delong APRN, RAIL OPERATOR #2 [place] [address] documented as of this encounter Visit Diagnoses Diagnosis Cervical radiculopathy Brachial neuritis or radiculitis nos documented in this encounter Additional Health Concerns Infection Onset Date Last Indicated Resolved Time COVID - 19 Confirmed 05/31/2022 05/31/2022 023 12:16 AM HAND FORMER HELPER Respiratory Rule Out - RPA 02/26/2023 02/26/2023 0 02/26/2023 11:31 AM CDT COVID - 19 02/26/2023 02/26/2023 03/08/2023 12:1 6 AM CDT documented as of this encounter Care Teams Cross Cut Saw Operator Relationship Specialty Start Date End Date Jabier Peck MD #[address] [address] PCP - General Family Medicine 06/22/20 01/16/24 Tad Mcintosh MD [address] [place] [address] PCP - General Family Medicine 01/17/24 Srikanth Adrian MD #[address] [address] Janitor Caretaker Cardiovascular Disease - Cardiology 02/02/22 08/06/24 Gloria Martinez MD #[address] [address] Consulting Physician Urology 04/30/24 documented as of this encounter
--- OUTSIDE RECORDS SUMMARY | 2025-06-05 12:47 | XMS_ITS | Encounter Summary ---
Author Organization [facility] Address [address] [place] [address] Phone Care Team Providers Care Hogshead Liner Name Role Phone Jabier Peck MD Primary Care Provider [phone] Srikanth Adrian MD Unavailable Tad Romero MD Primary Care Provider [phone] Gloria Martinez MD Unavailable [phone] Reason for Visit * Reason Comments Medication Refill Encounter Details Date Type Department Care Team (Late st Contact Info) Description 07/28/2022 Refill [facility] #2 [place] [address] Jabier Peck MD #[address] [address] Medication Refill Social History Tobacco Use Types [...] CDT Gender Identity Male 05/03/2023 12:44 PM DRAWER MAKER Sexual Orientation Lesbian or Wolff 05/03/2023 12 :44 PM DRAWER MAKER COVID-19 Exposure Response Date Recorded In the last 10 days, have tabby u been in contact with someone who was confirmed or suspected to have Coronavirus/COVID-19? No / Unsure 07/20/2022 2:30 PM DRAWER MAKER documented as of this encounter Miscellaneous [...] [facility] [place] 08/01/21 Office Visit Jabier Peck MD [facility] [place] Showing recent visits within past 365 days and meeting all other requirements Future Appointments No visits were found meeting these conditions. Showing future appointments within next 90 days and meeting all other requirements ER MAKER documented in this encounter Plan of Treatment Upcoming Encounters Date Type Department Care Team (Late st Contact Info) Description 07/14/2025 1:30 PM DRAWER MAKER Office Visit [facility] - Neurology - [place] #[address] [place] [address] Aria Delong, PULMONARY CARE NURSE, TAX AUDITOR #2 [place] [address] documented as of this encounter Visit Diagnoses Diagnosis Cervical radiculopathy Brachial neuritis or radiculitis nos documented in this encounter Additional Health Concerns Infection Onset Date Last Indicated Resolved Time Respiratory Rule Out - RPA 02/26/2023 02/26/2023 0 02/26/2023 11:31 AM CDT COVID - 19 02/26/2023 02/26/2023 03/08/2023 12:1 6 AM CDT documented as of this encounter Care Teams Hogshead Liner Relationship Specialty Start Date End Date Jabier Peck MD #2 [facility] [address] [place] [address] PCP - General Family Medicine 06/22/20 01/16/24 Tad Mcintosh MD [address] [place] [address] PCP - General Family Medicine 01/17/24 Srikanth Adrian MD #2 [facility] [address] [place] [address] Acquisitions Assistant Cardiovascular Disease - Cardiology 02/02/22 08/06/24 Gloria Martinez MD #2 [facility] [address] [place] [address] Consulting Physician Urology 04/30/24 documented as of this encounter
--- OUTSIDE RECORDS SUMMARY | 2025-06-05 12:47 | XMS_ITS | Data Portability ---
Author Organization [place] [facility] [place] [facility] Address [address] [place] [address] Care Team Providers Care Change Management Coordinator Name Role Phone [facility] OTHER Assessment Encounter Date Assessment Date [...] By Organization Details Last Modified Time 11/18/2019 [id number] Recommend seeing neurologist of his choice or [...] week abalettie Not available 11/18/2019 14:02:44 11/25/2019 [id number] Recommend, he would like to persue and discussed bilateral hammer toe surgery (arthrodesis B2,3,4 and arthroplasty B5). Likely ulcer will reoccur wo it. dc buttress. use cotton ball under the toe and continue maryuri/cotton/paper tape to the ulcer. Has improved nicely. get xrays L foot next visit. fu 1 wk ok to schedule surgery prn abalettie Not available 11/25/2019 15:25:12 12/02/2019 [id number] He said he is going to look into a lawsuit against his previous surgeon and asked me if I would talk to him, but he cannot remember his name and will have the document review attorney call us for an appointment if needed. He has not gotten blood work done yet debrided ulcer, continue cotton under the toe too to offload, toe pads made it hurt more xray taken 1 view L foot to review hammer toes on that side. nc fu 2 wk for preop and wound care. abalettie Not available 12/02/2019 16:48:53 01/05/2020 [id number] has not fu in a month was [...] wk abalettie Not available 01/06/2020 10:34:37 01/13/2020 [id number] He has pain and his ulcer is not healing he has not gotten blood work done to look at his healing factors I would like to refer him to a wound care center of his choice. He knows of one in [place], [place] that he would like to go [...] Address Organization Details Recorded Time 01/13/20 20 [id number] Ulcer Debridement completed [facility] 01/13/2020 17:44:57 01/05/20 20 [id number] Ulcer Debridement completed [facility] 01/06/2020 10:31:49 12/02/19 20 [id number] Ulcer Debridement completed [facility] 12/02/2019 16:46:21 11/25/19 20 [id number] Ulcer Debridement completed [facility] 11/25/2019 15:20:30 11/25/19 20 [id number] Est. 20-29 min completed [facility] 11/25/2019 15:20:12 11/18/19 20 [id number] X-rays 3v Feet Normal completed [facility] 11/18/2019 13:56:31 11/18/19 20 [id number] Ulcer Debridement completed [facility] 11/18/2019 13:53:44 11/18/19 20 17256-- KNITTING MACHINE TENDER H&P Exam 30-44 minutes completed [facility] 11/18/2019 13:53:28 Tonsillectomy completed MORGAN BURGER [facility] 11/18/2019 12:23:[address] [facility] 11/18/2019 13:21:53 hammer toe operation completed Michelle Spangler [facility] 11/18/2019 13:22:01 Imaging Results None recorded. Procedure Notes None recorded. Medical Equipment None Reported. Allergies Allergen ID Allergen Name Allergen Category Reaction Reaction Severity Criticality Documentation Date Start Date Code Code System Note Provider Name and Address Organization Details Recorded Time 47224 acetamino phen / hydrocodo ne medicatio n Not available Not available Not available 11/25/2019 95670 2 RxNorm addic tion, abuse r Michelle Spangler [facility] 0 12:16:29 Medications Name Sig Start [...] Updated DateTime 11/18/2019 177.8 cm 37.3 kg/m2 088770.02 g MORGAN LOUISE - Foot [facility] 11/18/2019 12:14:42 Date Recorded Body height Provider Name an d Address Organization Details Last Updated DateTime 11/25/2019 177.8 cm Paola Dockery [place] [facility] 11/25/2019 14:25:49 Date Recorded Body height Provider Name an d Address Organization Details Last Updated DateTime 12/02/2019 177.8 cm Paola Dockery [place] [facility] 12/02/2019 14:39:43 Date Recorded Body height Provider Name an d Address Organization Details Last Updated DateTime 01/05/2020 177.8 cm Paola Dockery [place] [facility] 01/05/2020 16:38:31 Date Recorded Body height Provider Name an d Address Organization Details Last Updated DateTime 01/13/2020 177.8 cm [facility] Dockery [place] [facility] 01/13/2020 16:40:34 Social History Question Answer Notes LastModified by Organizat ion Details LastModified Time Tobacco Smoking Status Former Smoker MORGAN BURGER [facility] [place] [facility] 11/18/2019 12:22:45 Quit Smoking How Many Years [...] Neurologic Disease Y Sciatica N Heart Attack (AL) N Diabetes Y Anxiety Disorder Y Urinary [...] ICD10 Code Diagnosis IMO Codes Diagnosis Note [id number] EUN Keith [address] [place] [address] 11/18/2019 12:00:36 11/18/2019 13:10:53 Disorder of nervous system due to type 2 diabetes mellitus 815823002 E11.49 Diabetic foot ulcer 3710 55879 E13.621 Hammer toe 820860676 M20 .41 M20.42 Amputated big toe 972630 007 Z89.411 Pain in right foot 73870 83352 14712 M79.671 Pain in left foot 108051 3236 99910 M79.672 Ulcer of toe 176948490 L 97.518 [id number] EUN Keith [address] [place] [address] 11/25/2019 14:24:18 11/25/2019 14:52:22 Disorder of nervous system due to type 2 diabetes mellitus 536580717 E11.49 Diabetic foot ulcer 3710 32392 E13.621 Hammer toe 442506296 M20 .41 M20.42 Amputated big toe 425690 007 Z89.411 Pain in right foot 48341 64234 26762 M79.671 Pain in left foot 275784 8011 89124 M79.672 Ulcer of toe 965237648 L 97.518 [id number] EUN Keith [address] [place] [address] 12/02/2019 14:37:47 12/02/2019 14:56:40 Disorder of nervous system due to type 2 diabetes mellitus 249789803 E11.49 Diabetic foot ulcer 3710 68817 E13.621 Ulcer of toe 246513224 L 97.518 [id number] Michelle Spangler [facility] [place] [address] [place] [address] 01/05/2020 16:35:48 01/05/2020 16:52:28 Disorder of nervous system due to type 2 diabetes mellitus 837620804 E11.49 Diabetic foot ulcer 3710 14420 E13.621 Ulcer of toe 760143825 L 97.518 [id number] Michelle Spangler [facility] [place] [address] [place] [address] 01/13/2020 16:24:56 01/13/2020 16:59:22 Disorder of nervous system due to type 2 diabetes mellitus 698618922 E11.49 Diabetic foot ulcer 3710 68780 E13.621 Ulcer of toe 442960274 L 97.518 Health Concerns Section Related Observation LastModified by Organization Detai ls LastModified Time None Recorded Concern Status LastModified by Organization Details LastModified Time None Recorded Advance Directives Directive None Recorded Payers Insurance Date Sequence Insurance Name Policy Number Policy Bailey Covered Member ID Bailey Member ID Guarantor Name 01/10/2020 1 [facility] (MEDICARE REPLACEMENT/A DVANTAGE - PPO) [id number] Tae Kent [id number] Tae Kent Notes Date Note Type Note Provider Name and Address Organization Details Recorded Time 11/18/2019 text/html Emery/ Callus / UlcersReported by PatientATHENA HPIFor location, patient reportsright: second toe (really hurts; the l2 hurts but to a lesser degree. has neuropathy of hands and feet. has not been in pain mgmt but has had an opiod addiction.)(r foot remains swollen.). For quality, patient reportsaching,throbbin g,sharp (stabbing feeling), andworsening. For current severity, patient reportsmoderate. For duration, patient [id number] months. For onset/timing, patient reportsabrupt onset (surgery [...] goes up to over 200mg/dL. Michelle tobias [facility] 11/18/2019 14:04:56 11/25/2019 text/html Emery/ Callus / UlcersReported by PatientATHENA HPIFor location, patient reportsright: second toe (really hurts; the l2 hurts but to a lesser degree). For quality, patient reportsaching,throbbin g,sharp (stabbing feeling), andimproving. For current severity, patient reportsmoderate. For duration, patient [id number] months. For onset/timing, patient reportsabrupt onset (surgery [...] at amputation of R 1 Michelle tobias [facility] 11/25/2019 15:25:37 12/02/2019 text/html Emery/ Callus / UlcersReported by PatientATHENA HPIFor location, patient reportsright: second toe (and all the other toes hurt.). For quality, patient reportsaching,throbbin g,sharp (stabbing feeling), andimproving. For current severity, patient reportsmoderate. For duration, patient [id number] months. For onset/timing, patient reportsabrupt onset (surgery [...] at amputation of R 1 [facility] 12/02/2019 16:49:41 01/05/2020 text/html Emery/ Callus / UlcersReported by PatientATHENA HPIFor location, patient reportsright: second toe (burning). For quality, patient reportsunchanged. For current severity, patient reportsmild. For duration, patient months. For onset/timing, patient [...] 2 and tender DANI [facility] - [facility] 01/06/2020 10:34:57 01/13/2020 text/html Emery/ Callus / UlcersReported by PatientATHENA HPIFor location, patient reportsright: second toe (burning). For quality, patient reportsunchanged. For current severity, patient reportsmild. For duration, patient [id number] months. For onset/timing, patient reportsabrupt onset (surgery [...] R 2 and tender DANI [facility] 01/13/2020 17:48:34
--- OUTSIDE RECORDS SUMMARY | 2025-06-05 12:47 | XMS_ITS | Encounter Summary ---
Author Organization [facility] Address [address] [place] [address] Phone Care Team Providers Care Workplace Rehabilitation Officer Name Role Phone Jabier Peck MD Primary Care Provider + [phone] Srikanth Adrian MD Unavailable Tad Romero MD Primary Care Provider [phone] Gloria Martinez MD Unavailable [phone] Reason for Visit * Reason Comments Medication Refill Encounter Details Date Type Department Care Team (Late st Contact Info) Description 08/19/2022 Refill [facility] Oncology Services [address] [place] [phone] Jt Morillo MD [address] [place] [address] Medication Refill Social History Tobacco Use Types [...] CDT Gender Identity Male 05/03/2023 12:44 PM HOUSING ASSISTANT Sexual Orientation Lesbian or Wolff 05/03/2023 12 :44 PM HOUSING ASSISTANT COVID-19 Exposure Response Date Recorded In the last 10 days, have yo u been in contact with someone who was confirmed or suspected to have Coronavirus/COVID-19? No / Unsure 08/21/2022 12:53 PM HOUSING ASSISTANT documented as of this encounter Functional Status documented as of this encounter Mental Status * Question Answer Entry Date Author BP 118/78 08/21/2022 3:08 PM HOUSING ASSISTANT Maryann Saab MA Temp 98 08/21/2022 3:08 PM HOUSING ASSISTANT Maryann Saab MA Pulse 77 08/21/2022 3:08 PM HOUSING ASSISTANT Maryann Saab MA SpO2 97 08/21/2022 3:08 PM HOUSING ASSISTANT Maryann Saab MA documented in this encounter Miscellaneous Notes * Telephone Encounter - Aisha Escamilla RN - 08/21/2022 12:02 PM CST Approved Eliquis per last f/u note. ING ASSISTANT documented in this encounter Plan of Treatment Upcoming Encounters Date Type Department Care Team (Late st Contact Info) Description 07/14/2025 1:30 PM HOUSING ASSISTANT Office Visit [facility] - Neurology - [place] [address] [place] [address] Aria Delong APRN, [facility] [address] [place] [address] documented as of this encounter Visit Diagnoses Diagnosis History of thrombophilia associated with MTHFR mutation documented in this encounter Additional Health Concerns Infection Onset Date Last Indicated Resolved Time Respiratory Rule Out - RPA 02/26/2023 02/26/2023 0 02/26/2023 11:31 AM CDT COVID - 19 02/26/2023 02/26/2023 03/08/2023 12:1 6 AM CDT documented as of this encounter Care Teams Workplace Rehabilitation Officer Relationship Specialty Start Date End Date Jabier Peck MD #2 [facility] [address] [place] [address] PCP - General Family Medicine 06/22/20 01/16/24 Tad Mcintosh MD [address] [place] [address] PCP - General Family Medicine 01/17/24 Srikanth Adrian MD #2 [facility] [address] [place] [address] Assessor Cardiovascular Disease - Cardiology 02/02/22 08/06/24 Gloria Martinez MD #2 [facility] [address] [place] [address] Consulting Physician Urology 04/30/24 documented as of this encounter
--- OUTSIDE RECORDS SUMMARY | 2025-06-05 12:47 | XMS_ITS | Encounter Summary ---
Author Organization [facility] Address [address] [place] [address] Phone Care Team Providers Care Configuration Management Consultant Name Role Phone Jabier Peck MD Primary Care Provider + [phone] Srikanth Adrian MD Unavailable Tad Romero MD Primary Care Provider [phone] Gloria Martinez MD Unavailable [phone] Reason for Visit * Reason Comments Medication Refill Encounter Details Date Type Department Care Team (Late st Contact Info) Description 03/24/2022 Refill [facility] [address] [place] [phone] Kishore Prieto APRN, CHECKING CLERK #[address] [address] Medication Refill Social History Tobacco Use Types [...] CDT Gender Identity Male 05/03/2023 12:44 PM CONVERSION MAN Sexual Orientation Lesbian or Wolff 05/03/2023 12 :44 PM CONVERSION MAN COVID-19 Exposure Response Date Recorded In [...] st Contact Info) Description 07/14/2025 1:30 PM CONVERSION MAN Office Visit [facility] - Neurology - [place] [address] [place] [phone] Aria Delong, MANUFACTURING AREA MANAGER, COMPANY DOCTOR [address] [place] [address] documented as of this encounter Visit Diagnoses Diagnosis Cervical radiculopathy Brachial neuritis or radiculitis nos Lumbar radiculopathy Thoracic or lumbosacral neuritis or radiculitis, unspecified documented in this encounter Additional Health Concerns Infection Onset Date Last Indicated Resolved Time COVID - 19 Confirmed 05/31/2022 05/31/2022 023 12:16 AM CONVERSION MAN Respiratory Rule Out - RPA 02/26/2023 02/26/2023 0 02/26/2023 11:31 AM CDT COVID - 19 02/26/2023 02/26/2023 03/08/2023 12:1 6 AM CDT documented as of this encounter Care Teams Configuration Management Consultant Relationship Specialty Start Date End Date Jabier Peck MD #[address] [address] PCP - General Family Medicine 06/22/20 01/16/24 Tad Mcintosh MD [address] [place] [address] PCP - General Family Medicine 01/17/24 Srikanth Adrian MD #[address] [address] Disposal Plant Operator Cardiovascular Disease - Cardiology 02/02/22 08/06/24 Gloria Martinez MD #[address] [address] Consulting Physician Urology 04/30/24 documented as of this encounter
--- OUTSIDE RECORDS SUMMARY | 2025-06-05 12:47 | XMS_ITS | Clinical Summary ---
Author Organization [facility] Address [address] [place] [address] Care Team Providers Care Family Centered Specialist Name Role Phone Tad Mcintosh DO Primary [...] a day 1350 mL 04/29/20 25 025 lidocaine viscous (XYLOCAINE) 2 % solutionIndication s:Oral ulcer Take 5 mL by mouth every 4 (four) hours as needed (mouth pain) 250 mL 04/29/20 25 025 dexAMETHasone oral liquid 0.5 mg/5 mLIndications:Oral ulcer Take 10 mL (1 mg total) by mouth 3 (three) times a day 900 mL 04/29/20 25 025 Active Problems Problem Noted Date Diagnosed Date Oral ulcer 04/29/2025 Assessment & Plan (04/29/2025 11:13 AM HANGER OFF): Prescription medications sent to Pharmacy today: Dexamethasone mouth rinse and spits before meals Peridex mouth rinse and spits after meals Viscous lidocaine as needed Follow up in 6 weeks if no improvement will recommend biopsy Keratosis 07/17/2024 Assessment & Plan (07/17/2024 1:09 PM HANGER OFF): Continue increased hydration Avoid acidic foods and fluids for one more week Thrombophilia 01/25/2023 Palpitations 11/22/2022 Chest pain 07/31/2022 Essential hypertension 07/31/2022 Tongue lesion 04/28/2020 Assessment & Plan (06/26/2024 9:29 AM HANGER OFF): Has pain medication prescribed by Manasa Cortes at [facility] will confirm use of [place] after surgery Stop Eliquis for 5 days before and after Excision of left lateral and right lateral tongue lesions with repair Risks and complications: Anesthesia, bleeding, infection, benign versus malignant pathology, recurrence of lesion, injury to arteries, nerves and veins, scarring and need for further treatment Assessment & Plan (04/28/2020 1:41 PM HANGER OFF): Speak to [facility] about smoothing out right first molar of [...] week Assessment & Plan (04/28/2020 1:41 PM HANGER OFF): Speak to [facility] about smoothing out right first molar of [...] (04/18/2019): Added automatically from request for surgery [id number] Hematochezia 03/04/2019 Overview (03/04/2019): Added automatically from request for surgery [id number] Family history of colon cancer 03/04/2019 Overview (03/04/2019): Added automatically from request for surgery [id number] 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 [place] level is in process. Will hold at [...] recommended Assessment & Plan (07/08/2019 3:43 PM HANGER OFF): Healthy, low carbohydrate lifestyle and exercise for [...] hydration Assessment & Plan (08/10/2017 1:23 PM HANGER OFF): s/p Right inferior parathyroidectomy - 08/10/2016 pre [...] renal Assessment & Plan (05/01/2017 10:36 PM HANGER OFF): s/p Right inferior parathyroidectomy - 08/10/2016 pre [...] future Assessment & Plan (08/10/2017 1:24 PM HANGER OFF): Recheck levels Assessment & Plan (12/17/2016 8:01 AM CDT): Recheck levels Type 2 diabetes mellitus wit h stage 3 chronic kidney disease, with long-term current use of insulin 12/11/2016 Assessment & Plan (07/08/2019 3:42 PM HANGER OFF): A1c 5.5% Jun 2019 on no medications. [...] needed. Assessment & Plan (08/10/2017 1:26 PM HANGER OFF): - A1c today 5.5 % - due [...] months. Assessment & Plan (05/01/2017 10:36 PM HANGER OFF): - reviewed BS log - BS well [...] statin. Assessment & Plan (08/10/2017 1:23 PM HANGER OFF): On statin therapy - advised to increase physical activity - advised low fat/chol diet and avoid greasy and junk food Assessment & Plan (05/01/2017 10:37 PM HANGER OFF): On statin therapy - advised to increase [...] activity Assessment & Plan (08/10/2017 1:24 PM HANGER OFF): BP well controlled, chronic At goal advised [...] quit smoking so they can encourage you. Broadcast Field Supervisor referral placed. Class 2 severe obesity due t o excess calories with serious comorbidity and body mass index (BMI) of 37.0 to 37.9 in adult 08/16/2012 Overview (09/22/2016): Obesity Assessment & Plan (12/25/2019 1:57 PM CDT): Healthy, low carbohydrate lifestyle and exercise for 150min/week recommended Referral for wig sales consultant placed. Assessment & Plan (10/16/2019 11:40 AM [...] greens, fat-free milk, cottage cheese, nuts like [id number]-igcesda, protein bars with 10-15 g of protein [...] discussed. Assessment & Plan (05/01/2017 10:37 PM HANGER OFF): Obesity is improving with treatment. Discussed the [...] time. Assessment & Plan (05/01/2017 10:37 PM HANGER OFF): Hypertension is improving with treatment. Continue current [...] Department Care Team Description 04/29/2025 9:45 AM HANGER OFF Office Visit [facility] - [address] [place] [address] Tammi Jeff, DO Oral ulcer (Primary Dx) from Last [...] stage 3, GFR 30-59 ml/min ([facility]) [place] poisoning Headache, tension-type Sleep apnea patient had Uvul a and T&A and the helped GERD (gastroesophageal reflu x disease) Irritable bowel syndrome Diverticulitis of colon Cerebrovascular accident (CVA) ([facility]) Cerebrovascular accident Cerebrovascular accident (CVA) ([facility]) Stroke Obesity Pulmonary embolism 12/15/2019 Awareness under [...] Date Smoking Tobacco: Every Day Cigarettes 0.3 44 Started: 06/18/1981 Smokeless Tobacco: Never Tobacco Cessation:Ready [...] on file Legal Sex Male 5:22 PM HANGER OFF Gender Identity Not on file Sexual Orientation Not on file Last Filed Vital Signs Vital Sign Reading Time Taken Comments Blood Pressure 136/84 07/10/2024 4:54 PM HANGER OFF Pulse 62 07/10/2024 4:54 PM HANGER OFF Temperature 36.4 C (97.5 F) 07/10/2024 4:54 PM HANGER OFF Respiratory Rate 16 07/10/2024 4:54 PM HANGER OFF Oxygen Saturation 97% 07/10/2024 4:54 PM HANGER OFF Inhaled Oxygen Concentration - - Weight 105.8 kg (233 lb 4 oz) 07/10/2024 10:09 A M HANGER OFF Height 175.3 cm (5' 9) 07/10/2024 10:09 AM HANGER OFF Body Mass Index 34.44 07/10/2024 10:09 AM HANGER OFF Plan of Treatment Health Maintenance Due Date [...] 02/16, 08/21/2022, Additional history exists Covid-19 Vaccine (4 - 2024-2 6 season) 2025 05/30/2021, 09/11/2020, 08/21/2020 Influenza Vaccine (#1) 2025 3, 02/24/2022, 08/01/2021, Additional history exists DTaP/Tdap/Td Vaccine (2 - Td or Tdap) 02/26/2029 02/26/2019 Medical Devices Implanted Type Area Security Alarm Technician Device Identifier Shelf Expiration Date Model / Serial / Lot Dashbook Kalin Angio-Seal Vip 6fr Closere Device [id number] - [id number] Implanted:Qty: 1 on 10/12/2022 by Eliel Ortiz MD at [facility] Other - see comments [employer] Kalin 03/17/2023 [id number] / / [id number] [employer] [id number] 4mm 44mm Compression Headless Foot Ankle Screw Bone - [id number] Implanted:Qty: 1 on 04/25/2019 by Chidi Rios DPM at [facility] Right: Toes [employer] [id number] / / [employer] [place] Ezm --10 Easyclip Si 2mm [id number] Monocortical Superelastic Reamer - [id number] Implanted:Qty: 1 on 04/25/2019 by Chidi Rios DPM at [facility] Right: Toes [employer] [place] 11/16/2023 EZM 10-10-10 / / [id number] [employer] [place] Ezm 03-27-10 Easyclip Si 2mm [id number] Monocortical Superelastic Reamer - [id number] Implanted:Qty: 1 on 04/25/2019 by Chidi Rios DPM at [facility] Right: Toes [employer] [place] 11/16/2023 EZ 10-10-10 / / [id number] Toe Tac Xpress Hammertoe Fixation System Implanted:Qty: 2 on 04/25/2019 by Chidi Rios DPM at [facility] Right: Toes [employer] [id number] 05/27/2021 [id number] / [id number] / [id number] [employer] Wire Implanted:Qty: 1 on 04/25/2019 by Chidi Rios DPM at [facility] Right: Toes [employer] 07/18/2028 [id number] / / [id number] Procedures Procedure Name Priority Date/Time Associated Diagnosis Comments EGFR STAT 04/19/2023 3:53 PM CDT HEMOGLOBIN A1C Routine 12/13/2019 2:55 PM CDT LIPID PANEL Routine 05/17/2018 2:25 PM HANGER OFF Type 2 diabetes mellitus with hyperglycemia, with long-term current use of insulin ([facility]) from Last 3 Months or Most Recently Relevant to Health Maintenance Results * eGFR (04/19/2023 3:53 PM CDT) eGFR 51 mL/min/1. 73 m2 [facility] ([place]) Comment: Interpretive Data Reference Interval Normal >/= [...] Result [facility] C[facility] ([place]) 1 [facility] Department [place] [address] * (ABNORMAL) Hemoglobin A1c (12/13/2019 2:55 PM CDT) Blood specimen (specimen) 12/13/2019 2:55 PM CDT Narrative [facility] - 12/13/2019 2:55 PM CDT Results in labs Aliza Carlson MD LAB BLOOD ORDERABLES Becky l Result Performing Organization Address City/[facility] Co de [place], [place] [phone] * (ABNORMAL) Lipid panel (05/17/2018 2:25 PM HANGER OFF) Cholesterol 159 30 - 199 mg/dL JANUARY [...] last revised on 2018. Chol/HDL ratio 4 [facility] (EVER) Blood specimen (specimen) 05/17/2018 2:25 PM HANGER OFF 05/17/2018 5:15 PM HANGER OFF Narrative JANUARY C[facility] ([place]) - 05/17/2018 6:14 PM HANGER OFF Tori Sims MD LAB BLOOD ORDERABLE S Final Result [facility]ANUARY [facility] (EVER) 1 [facility] Department [place] [address] from Last 3 Months or Most Recently Relevant to Health Maintenance Insurance [facility] MEDICARE ADVANTAGE MEDICARE [facility] MEDICARE ADVANTAGE [facility] MEDIC[facility] ADVANTAGE [facility] MEDICARE ADVANTAGE Advance Directives For more information, please contact: [phone] * Full Code (Latest Code Status on File) Date Activated Date Inactivated Comments 10/12/2022 2:12 PM 10/12/2022 10:46 PM * Full Code Date Activated Date Inactivated Comments 09/24/2017 9:04 PM 09/30/2017 5:22 PM Care Teams Family Centered Specialist Relationship Specialty Start Date End Date Tad Mcintosh DO [address] [place] [address] PCP - General Family Medicine 06/26/24
--- OUTSIDE RECORDS SUMMARY | 2025-06-05 12:47 | XMS_ITS | Encounter Summary ---
Author Organization [facility] Address [address] [place] [address] Phone Care Team Providers Care Front Desk Auxiliary Name Role Phone Jabier Peck MD Primary Care Provider [phone] Srikanth Adrian MD Unavailable Tad Romero MD Primary Care Provider [phone] Gloria Martinez MD Unavailable [phone] Reason for Visit * Reason Comments Medication Refill Encounter Details Date Type Department Care Team (Late st Contact Info) Description 08/30/2022 Refill [facility] [address] [place] [address] Jabier Peck MD #[address] [address] Medication Refill Social History Tobacco Use Types [...] CDT Gender Identity Male 05/03/2023 12:44 PM CHRISTMAS TREE GROWER Sexual Orientation Lesbian or Wolff 05/03/2023 12 :44 PM CHRISTMAS TREE GROWER COVID-19 Exposure Response Date Recorded In the last 10 days, have tabby u been in contact with someone who was confirmed or suspected to have Coronavirus/COVID-19? No / Unsure 08/21/2022 12:53 PM CHRISTMAS TREE GROWER documented as of this encounter Miscellaneous [...] 12/13/21 Telemedicine Kishore Prieto APRN, R[facility] Showing recent visits within past 365 days and meeting all other requirements Future Appointments Date Type Provider Dept 11/21/22 Appointment Jabier Peck MD [facility] Showing future appointments within next 90 days and meeting all other requirements documented in this encounter Plan of Treatment Upcoming Encounters Date Type Department Care Team (Late st Contact Info) Description 07/14/2025 1:30 PM CHRISTMAS TREE GROWER Office Visit [facility] - Neurology - [place] [address] [place] [address] Aria Delong APRN, LOADER [employer]SE [address] [place] [address] documented as of this encounter Visit Diagnoses [...] as of this encounter Care Teams Front Desk Auxiliary Relationship Specialty Start Date End Date Jabier Peck MD #[address] [address] PCP - General Family Medicine 06/22/20 01/16/24 Tad Mcintosh MD [address] [place] [address] PCP - General Family Medicine 01/17/24 Srikanth Adrian MD #[address] [address] Multimedia Programmer Cardiovascular Disease - Cardiology 02/02/22 08/06/24 Gloria Martinez MD #[address] [address] Consulting Physician Urology 04/30/24 documented as of this encounter
--- OUTSIDE RECORDS SUMMARY | 2025-06-05 12:47 | XMS_ITS | Encounter Summary ---
Author Organization [facility] Address [address] [place] [address] Phone Care Team Providers Care Wirer Name Role Phone Jabier Peck MD Primary Care Provider + [phone] Srikanth Adrian MD Unavailable Tad Romero MD Primary Care Provider [phone] Gloria Martinez MD Unavailable [phone] Reason for Visit * Reason Comments Medication Refill Encounter Details Date Type Department Care Team (Late st Contact Info) Description 07/10/2022 Refill [facility] - Family Medicine [facility] [address] [place] [address] Jabier Peck MD #[address] [address] Medication Refill Social History Tobacco Use Types [...] Gender Identity Male 05/03/2023 12:44 PM FIRE CONTROL ASSISTANT Sexual Orientation Lesbian or Wolff 05/03/2023 12 :44 PM FIRE CONTROL ASSISTANT documented as of this encounter Miscellaneous Notes * Telephone Encounter - Anjali Hartley RN - 07/10/2022 12:34 PM FIRE CONTROL ASSISTANT Refill requested too soon. CONTROL ASSISTANT documented in this encounter Plan of Treatment Upcoming Encounters Date Type Department Care Team (Late st Contact Info) Description 07/14/2025 1:30 PM FIRE CONTROL ASSISTANT Office Visit [facility] - Neurology - [place] [address] [place] [address] Aria Delong APRN, SAWMILL HAND [address] [place] [address] documented as of this encounter Visit Diagnoses Not on filedocumented in this encounter Additional Health Concerns Infection Onset Date Last Indicated Resolved Time Respiratory Rule Out - RPA 02/26/2023 02/26/2023 0 02/26/2023 11:31 AM CDT COVID - 19 02/26/2023 02/26/2023 03/08/2023 12:1 6 AM CDT documented as of this encounter Care Teams Wirer Relationship Specialty Start Date End Date Jabier Peck MD #[address] [address] PCP - General Family Medicine 06/22/20 01/16/24 Tad Mcintosh MD [address] [place] [address] PCP - General Family Medicine 01/17/24 Srikanth Adrian MD #[address] [address] It Quality Analyst Cardiovascular Disease - Cardiology 02/02/22 08/06/24 Gloria Martinez MD #2 [facility] [address] [address] Consulting Physician Urology 04/30/24 documented as of this encounter
--- OUTSIDE RECORDS SUMMARY | 2025-06-05 12:47 | XMS_ITS | Encounter Summary ---
Author Organization [facility] Address [address] [place] [address] Phone Care Team Providers Care Shotgun Shell Reprinting Unit Operator Name Role Phone Jabier Peck MD Primary Care Provider + [phone] Srikanth Adrian MD Unavailable Tad Romero MD Primary Care Provider [phone] Gloria Martinez MD Unavailable [phone] Reason for Visit * Reason Comments Medication Refill Encounter Details Date Type Department Care Team (Late st Contact Info) Description 05/25/2022 Refill [facility] Oncology Services [address] [place] [phone] Jt Morillo MD [address] [place] [address] Medication Refill Social History Tobacco Use Types [...] CDT Gender Identity Male 05/03/2023 12:44 PM OFFENSIVE COORDINATOR Sexual Orientation Lesbian or Wolff 05/03/2023 12 :44 PM OFFENSIVE COORDINATOR COVID-19 Exposure Response Date Recorded In the last 10 days, have yo u been in contact with someone who was confirmed or suspected to have Coronavirus/COVID-19? No / Unsure 05/10/2022 2:32 PM OFFENSIVE COORDINATOR documented as of this encounter Miscellaneous Notes * Telephone Encounter - Aisha Escamilla, RN - 05/26/2022 11:00 AM CST Approved Eliquis per last f/u note. Pt to be on indefinite AC. NSIVE COORDINATOR documented in this encounter Plan of Treatment Upcoming Encounters Date Type Department Care Team (Late st Contact Info) Description 07/14/2025 1:30 PM OFFENSIVE COORDINATOR Office Visit [facility] Neurology [facility] [address] [place] [address] Aria Delong APRN, HYDROGRAPHICAL TECHNICAL OFFICER [address] [place] [address] documented as of this encounter Visit Diagnoses Diagnosis History of thrombophilia associated with MTHFR mutation documented in this encounter Additional Health Concerns Infection Onset Date Last Indicated Resolved Time COVID - 19 Confirmed 05/31/2022 05/31/2022 023 12:16 AM OFFENSIVE COORDINATOR Respiratory Rule Out - RPA 02/26/2023 02/26/2023 0 02/26/2023 11:31 AM CDT COVID - 19 02/26/2023 02/26/2023 03/08/2023 12:1 6 AM CDT documented as of this encounter Care Teams Shotgun Shell Reprinting Unit Operator Relationship Specialty Start Date End Date Jabier Peck MD #[address] [address] PCP - General Family Medicine 06/22/20 01/16/24 Tad Mcintosh MD [address] [place] [address] PCP - General Family Medicine 01/17/24 Srikanth Adrian MD #[address] [facility] [address] [address] Access Director Cardiovascular Disease - Cardiology 02/02/22 08/06/24 Gloria Martinez MD #[address] [facility] [address] [place] [address] Consulting Physician Urology 04/30/24 documented as of this encounter
--- OUTSIDE RECORDS SUMMARY | 2025-06-05 12:47 | XMS_ITS | Encounter Summary ---
Author Organization [facility] Address [address] [place] [address] Phone Care Team Providers Care Cupola Liner Name Role Phone Jabier Peck MD Primary Care Provider [phone] Srikanth Adrian MD Unavailable Tad Romero MD Primary Care Provider [phone] Gloria Martinez MD Unavailable [phone] Reason for Visit * Reason Comments Medication Refill Encounter Details Date Type Department Care Team (Late st Contact Info) Description 10/24/2022 [facility]ill [facility] [address] [place] [address] Jabier Peck MD #[address] [address] Medication Refill Social History Tobacco Use Types [...] CDT Gender Identity Male 05/03/2023 12:44 PM STUDIO PRODUCER Sexual Orientation Lesbian or Wolff 05/03/2023 12 :44 PM STUDIO PRODUCER documented as of this encounter Miscellaneous Notes [...] [place] 12/13/21 Telemedicine Kishore Prieto APRN, [place] [...] st Contact Info) Description 07/14/2025 1:30 PM STUDIO PRODUCER [facility] - [place] [address] [place] [address] Aria Delong APRN, CAP INSPECTOR [address] [place] [address] documented as of this encounter Visit Diagnoses Not on filedocumented in this encounter Additional Health Concerns Infection Onset Date Last Indicated Resolved Time Respiratory Rule Out - RPA 02/26/2023 02/26/2023 0 02/26/2023 11:31 AM CDT COVID - 19 02/26/2023 02/26/2023 03/08/2023 12:1 6 AM CDT documented as of this encounter Care Teams Cupola Liner Relationship Specialty Start Date End Date Jabier Peck MD #2 [facility] [address] [place] [address] PCP - General Family Medicine 06/22/20 01/16/24 Tad Mcintosh MD [address] [place] [address] PCP - General Family Medicine 01/17/24 Srikanth Adrian MD #2 [facility] [address] [place] [address] Order Worker Cardiovascular Disease - Cardiology 02/02/22 08/06/24 Gloria Martinez MD #2 [facility] [address] [place] [address] Consulting Physician Urology 04/30/24 documented as of this encounter
--- OUTSIDE RECORDS SUMMARY | 2025-06-05 12:47 | XMS_ITS | Encounter Summary ---
Author Organization [facility] Address [address] [place] [address] Phone Care Team Providers Care Merchandise Flow Associate Name Role Phone Jabier Peck MD Primary Care Provider [phone] Srikanth Adrian MD Unavailable Tad Romero MD Primary Care Provider [phone] Gloria Martinez MD Unavailable [phone] Reason for Visit * Reason Comments Medication Refill Encounter Details Date Type Department Care Team (Late st Contact Info) Description 06/20/2022 Refill [facility] #[address] [place] [address] Jabier Peck MD #[address] [address] Medication Refill Social History Tobacco Use Types [...] CDT Gender Identity Male 05/03/2023 12:44 PM BUTTON BROACHER Sexual Orientation Lesbian or Wolff 05/03/2023 12 :44 PM BUTTON BROACHER COVID-19 Exposure Response Date Recorded In the last 10 days, have yo u been in contact with someone who was confirmed or suspected to have Coronavirus/COVID-19? Yes 05/31/2022 2:12 PM BUTTON BROACHER documented as of this encounter Miscellaneous Notes [...] 90 days and meeting all other requirements ON BROACHER documented in this encounter Plan of Treatment Upcoming Encounters Date Type Department Care Team (Late st Contact Info) Description 07/14/2025 1:30 PM BUTTON BROACHER Office Visit [facility] - Neurology - [place] [address] [place] [address] Aria Delong, CITRIX CONSULTANT, TECHNICIAN ANATOMIC PATHOLOGY [address] [place] [address] documented as of this encounter Visit Diagnoses Diagnosis Cervical radiculopathy Brachial neuritis or radiculitis nos documented in this encounter Additional Health Concerns Infection Onset Date Last Indicated Resolved Time COVID - 19 Confirmed 05/31/2022 05/31/2022 023 12:16 AM BUTTON BROACHER Respiratory Rule Out - RPA 02/26/2023 02/26/2023 0 02/26/2023 11:31 AM CDT COVID - 19 02/26/2023 02/26/2023 03/08/2023 12:1 6 AM CDT documented as of this encounter Care Teams Merchandise Flow Associate Relationship Specialty Start Date End Date Jabier Peck MD #[address] [address] PCP - General Family Medicine 06/22/20 01/16/24 Tad Mcintosh MD [address] [place] [address] PCP - General Family Medicine 01/17/24 Srikanth Adrian MD #[address] [address] [address] Light Repairer Cardiovascular Disease - Cardiology 02/02/22 08/06/24 Gloria Martinez MD #2 [facility] [address] [place] [address] Consulting Physician Urology 04/30/24 documented as of this encounter
--- OUTSIDE RECORDS SUMMARY | 2025-06-05 12:47 | XMS_ITS | Encounter Summary ---
Author Organization [facility] Address [address] [place] [address] Phone Care Team Providers Care Steel Roller Name Role Phone Jabier Peck MD Primary Care Provider [phone] Srikanth Adrian MD Unavailable Tad Romero MD Primary Care Provider [phone] Gloria Martinez MD Unavailable [phone] Encounter Details Date Type Department Care Team (Late st Contact Info) Description 01/04/2023 Telephone [facility] Medical/Surgical 3 Surge Waiver [address] [place] [address] Jabier Peck MD #[address] [address] Social History Tobacco Use Types Packs/Day Years [...] CDT Gender Identity Male 05/03/2023 12:44 PM COVER OPERATOR Sexual Orientation Lesbian or Wolff 05/03/2023 12 :44 PM COVER OPERATOR documented as of this encounter Miscellaneous Notes * Telephone Encounter - Jabier Peck MD - 01/14/2023 1:40 PM CDT Thanks for the update! documented in this encounter Plan of Treatment Upcoming Encounters Date Type Department Care Team (Late st Contact Info) Description 07/14/2025 1:30 PM COVER OPERATOR Office Visit [facility] - Neurology - [place] [address] [place] [address] Aria Delong APRN, LICENSED [place] REAL ESTATE APPRAISER [address] [place] [address] documented as of this encounter Visit Diagnoses Not on filedocumented in this encounter Additional Health Concerns Infection Onset Date Last Indicated Resolved Time Respiratory Rule Out - RPA 02/26/2023 02/26/2023 0 02/26/2023 11:31 AM CDT COVID - 19 02/26/2023 02/26/2023 03/08/2023 12:1 6 AM CDT documented as of this encounter Care Teams Steel Roller Relationship Specialty Start Date End Date Jabier Peck MD #[address] [address] PCP - General Family Medicine 06/22/20 01/16/24 Tad Mcintosh MD [address] [place] [address] PCP - General Family Medicine 01/17/24 Srikanth Adrian MD #[address] [address] Marine Habitat Resource Specialist Cardiovascular Disease - Cardiology 02/02/22 08/06/24 Gloria Martinez MD #2 [facility] [address] [address] Consulting Physician Urology 04/30/24 documented as of this encounter
--- OUTSIDE RECORDS SUMMARY | 2025-06-05 12:47 | XMS_ITS | Encounter Summary ---
Author Organization [facility] Address [address] [place] [address] Phone Care Team Providers Care Consumer Affairs Specialist Name Role Phone Jabier Peck MD Primary Care Provider [phone] Srikanth Adrian MD Unavailable Tad Romero MD Primary Care Provider [phone] Gloria Martinez MD Unavailable [phone] Reason for Visit * Reason Comments Medication Refill Encounter Details Date Type Department Care Team (Late st Contact Info) Description 06/12/2022 Refill [facility] #[address] [place] [address] Jabier Peck MD #[address] [address] Medication Refill Social History Tobacco Use Types [...] Gender Identity Male 05/03/2023 12:44 PM METAL BUGGY OPERATOR Sexual Orientation Lesbian or Wolff 05/03/2023 12 :44 PM METAL BUGGY OPERATOR COVID-19 Exposure Response Date Recorded In the last 10 days, have yo u been in contact with someone who was confirmed or suspected to have Coronavirus/COVID-19? Yes 05/31/2022 2:12 PM METAL BUGGY OPERATOR documented as of this encounter Miscellaneous Notes * Telephone Encounter - Anjali Hartley RN - 06/13/2022 11:16 AM METAL BUGGY OPERATOR Medication warning. Per nursing clinical judgement, [...] MD [facility] 03/03/22 Office Visit [facility] MD [facility] [...] days and meeting all other requirements L BUGGY OPERATOR documented in this encounter Plan of Treatment Upcoming Encounters Date Type Department Care Team (Late st Contact Info) Description 07/14/2025 1:30 PM METAL BUGGY OPERATOR Office Visit [facility] - Neurology - [place] [address] [place] [address] Aria Delong, HOME DEPOT REP, [place] CONSULTANT #2 [facility] [place] [address] documented as of this encounter Visit Diagnoses Not on filedocumented in this encounter Additional Health Concerns Infection Onset Date Last Indicated Resolved Time COVID - 19 Confirmed 05/31/2022 05/31/2022 023 12:16 AM METAL BUGGY OPERATOR Respiratory Rule Out - RPA 02/26/2023 02/26/2023 0 02/26/2023 11:31 AM CDT COVID - 19 02/26/2023 02/26/2023 03/08/2023 12:1 6 AM CDT documented as of this encounter Care Teams Consumer Affairs Specialist Relationship Specialty Start Date End Date Jabier Peck MD #2 [facility] [address] [place] [address] PCP - General Family Medicine 06/22/20 01/16/24 Tad Mcintosh MD [address] [place] [address] PCP - General Family Medicine 01/17/24 Srikanth Adrian MD #2 [facility] [address] [place] [address] Service Desk Team Lead Cardiovascular Disease - Cardiology 02/02/22 08/06/24 Gloria Martinez MD #2 [facility] [address] [place] [address] Consulting Physician Urology 04/30/24 documented as of this encounter
--- OUTSIDE RECORDS SUMMARY | 2025-06-05 12:47 | XMS_ITS | Encounter Summary ---
Author Organization [facility] Address [address] [place] [address] Phone Care Team Providers Care Cigar Brander Name Role Phone Jabier Peck MD Primary Care Provider + [phone] Srikanth Adrian MD Unavailable Tad Romero MD Primary Care Provider [phone] Gloria Martinez MD Unavailable [phone] Reason for Visit * Reason Comments Medication Refill Encounter Details Date Type Department Care Team (Late st Contact Info) Description 03/29/2022 Refill [facility] Family [facility] #[address] [place] [address] Jabier Peck MD #[address] [address] Medication Refill Social History Tobacco Use Types [...] CDT Gender Identity Male 05/03/2023 12:44 PM CONVEYOR MONITOR Sexual Orientation Lesbian or Wolff 05/03/2023 12 :44 PM CONVEYOR MONITOR COVID-19 Exposure Response Date Recorded In the [...] Date Type Provider Dept 03/03/22 Office Visit Jaiber Peck MD [facility] 02/24/22 Office Visit [...] st Contact Info) Description 07/14/2025 1:30 PM CONVEYOR MONITOR Office Visit [facility] - Neurology - [place] [address] [place] [address] Aria Delong, LATHE MECHANIC, MAT ROLLER #[address] [facility] [address] documented as of this encounter Visit Diagnoses Diagnosis Cervical radiculopathy Brachial neuritis or radiculitis nos documented in this encounter Additional Health Concerns Infection Onset Date Last Indicated Resolved Time COVID - 19 Confirmed 05/31/2022 05/31/2022 023 12:16 AM CONVEYOR MONITOR Respiratory Rule Out - RPA 02/26/2023 02/26/2023 0 02/26/2023 11:31 AM CDT COVID - 19 02/26/2023 02/26/2023 03/08/2023 12:1 6 AM CDT documented as of this encounter Care Teams Cigar Brander Relationship Specialty Start Date End Date Jabier Peck MD #2 [facility] [address] [place] [address] PCP - General Family Medicine 06/22/20 01/16/24 Tad Mcintosh MD [address] [place] [address] PCP - General Family Medicine 01/17/24 Srikanth Adrian MD #2 [facility] [address] [place] [address] Provider Network Manager Cardiovascular Disease - Cardiology 02/02/22 08/06/24 Gloria Martinez MD #2 [facility] [address] [place] [address] Consulting Physician Urology 04/30/24 documented as of this encounter
[2025-06-05 13:00] LABS: Hematocrit 39.9 % (40.0-54.0); Hemoglobin 13.6 g/dL (14.0-18.0); Immature Granulocyte Percent A 0.2 % (0.0-0.0); Lymphocytes Absolute Auto 2.57 K/mm3 (1.10-4.50); Mean Corpuscular HGB Conc 34.1 g/dL (32-36); Mean Corpuscular Hemoglobin 31.6 pg (27.0-31.0); Mean Corpuscular Volume 92.8 fL (78.0-102.0); Nucleated Red Blood Cells Absolute Auto 0.00 K/mm3 (0.00-0.00); Nucleated Red Blood Cells Perc 0.0 % (0-0.0); Platelet Count Result 207 K/mm3 (150-420); Red Blood Count 4.30 M/mm3 (4.70-6.10); White Blood Count 8.9 K/mm3 (4.8-10.8)
[2025-06-05 13:26] LABS: Alanine Aminotransferase 38 U/L (6-50); Albumin Level 4.4 g/dL (3.5-5.1); Alkaline Phosphatase 77 U/L (38-126); Anion Gap 8 mmol/L (4-12); Aspartate Amino Transferase 28 U/L (17-59); Bilirubin,Total 0.3 mg/dL (0.2-1.3); Blood Urea Nitrogen 18 mg/dL (9-20); CRP < 0.5 mg/dL (<1.0); Calcium 9.5 mg/dL (8.4-10.2); Carbon Dioxide 29 mmol/L (22-30); Chloride 105 mmol/L (98-107); Creatine Kinase 158 U/L (55-170); Estimated Glomerular Filt Rate 52; Glucose 157 mg/dL (65-110); Osmolality Calculated 298 mOsm/kg (285-295); Potassium 4.2 mmol/L (3.4-5.0); Sodium 142 mmol/L (137-145); Total Protein 6.4 g/dL (6.3-8.2)
[2025-06-05 13:54] LABS: Thyroid Stimulating Hormone Reflex 1.070 uIU/mL (0.465-4.68)
[2025-06-09 07:08] LABS: ANA by IFA Rfx Titer/Pattern Negative (.)
== END 2025-06-05 12:38 | disposition home or self-care (01) ==
PROVIDERS: PCP Family Medicine; Visit Provider Family Medicine
DX: R53.82 Chronic fatigue, unspecified (principal); E03.9 Hypothyroidism, unspecified; F31.9 Bipolar disorder, unspecified; Z79.899 Other long term (current) drug therapy; M79.641 Pain in right hand; M79.642 Pain in left hand
CPT/HCPCS: 36415; 80053; 80183; 82550; 84443; 85025; 86038; 86140; 86430